=== PATIENT | female | born 1955 | race American Indian/Alaskan Native ===

== ENCOUNTER 2018-01-24 18:50 | Emergency (ER) | payer OTHER, MEDICARE ==
[2018-01-24 23:25] VITALS: BP 157/78
[2018-01-25] MEDS ORDERED: TYLENOL PO ONE (00:25)
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
== END 2018-01-25 00:46 | disposition home or self-care (01) ==
LOC: ED 18:50
DX: M54.5 Low back pain (principal); I10 Essential (primary) hypertension; E11.9 Type 2 diabetes mellitus without complications; E78.00 Pure hypercholesterolemia, unspecified; Z87.891 Personal history of nicotine dependence; V87.7XXA Person injured in collision between other specified motor vehicles (traffic), initial encounter; Y93.89 Activity, other specified; Y92.89 Other specified places as the place of occurrence of the external cause; Y99.8 Other external cause status
CPT/HCPCS: 99282

== ENCOUNTER 2018-12-17 15:14 | Emergency (ER) | payer MEDICARE ==
[2018-12-17 15:23] VITALS: BP 127/76
[2018-12-17] MEDS ORDERED: BOOSTRIX IM ONE (15:58)
[2018-12-17] MEDS ORDERED: XYLOCAINE 1%/ EPI 1:100,000 INFILTRATI ONE (15:58)
[2018-12-17] MEDS ORDERED: TRIPLE ANTIBIOTIC TP ONE (15:58)
[2018-12-17] MEDS ORDERED: NACL 0.9% IR ONE (15:58)
[2018-12-17] MEDS ORDERED: NORCO 5/325 PO ONE (15:58)
--- NOTE | 2018-12-17 16:07 | Emergency Department Report ---
ED Laceration HPI - HPI Chief Complaint: Wound/Laceration Stated Complaint: CUT THUMB Time Seen by Provider: 12/17/18 15:55 Location: Upper Extremity Severity: mild Tetanus Status: Not up to Date Laceration Symptoms: Yes Pain, No Foreign Body Sensation, No Numbness, No Weakness Other History: 63 YO AA FEMALE WHO COMES WITH LAC TO R THUMB; OBTAINED DURING WORKING WITH [employer]. ED Review of Systems ROS: Stated complaint: CUT THUMB Other details as noted in HPI Comment: All other systems reviewed and negative Constitutional: denies: see HPI Eyes: denies: eye pain Respiratory: denies: cough Cardiovascular: denies: palpitations Endocrine: denies: flushing Gastrointestinal: denies: nausea Genitourinary: denies: dysuria Musculoskeletal: denies: back pain Skin: as per HPI, lesions Neurological: denies: weakness Psychiatric: denies: anxiety Hematological/Lymphatic: denies: easy bleeding ED Past Medical Hx - Past Medical History Previous Medical History?: Yes Hx Hypertension: Yes Hx Diabetes: Yes Additional medical history: High cholesterol - Surgical History Past Surgical History?: Yes Hx Cholecystectomy: Yes Additional Surgical History: tonsilectomy. hysterectomy - Social History Smoking Status: Current Every Day Smoker Substance Use Type: Alcohol - Medications Home Medications: Home Medications Medication Instructions Recorded Confirmed Last Taken Type traMADol [Ultram 50 MG tab] 50 mg PO Q6HR PRN #15 tablet 01/25/18 Unknown Rx Laceration Physical Exam - Exam General: Vital signs noted. No distress. Alert and acting appropriately. Laceration Location: Upper Extremity Laceration Exam: Yes Normal Distal CMS, No Foreign Body, No Exposed Tendon, Vessel, or Nerve, No Tendon Injury ED Course Vital Signs 12/17/18 15:18 Temperature 97.6 F Pulse Rate 99 H Respiratory 16 Rate Blood Pressure 127/76 O2 Sat by Pulse 99 Oximetry - I & D THUMB Type of Procedure: Simple - Laceration /Wound Repair THUMB Wound Location: upper extremity Wound Length (cm): 2 Wound's Depth, Shape: superficial Wound Explored: clean Irrigated w/ Saline (ccs): 50 Betadine Prep?: No Anesthesia: 1% Lidocaine Volume Anesthetic (ccs): 1 Wound Debrided: minimal Wound Repaired With: sutures Suture Size/Type: 4:0 Number of Sutures: 3 Layer Closure?: No Sterile Dressing Applied?: Yes Progress: TOLERATED WELL ED Medical Decision Making - Medical Decision Making V SHAPED LAC ON THE PROX R THUMB BLEEDING CONTROLLED FULL ROM N/V INTACT RAPID CAP REFILL REPAIRED WITHOUT DIFFICULTY DC HOME - Differential Diagnosis SIMPLE LAC Critical care attestation.: If time is entered above; I have spent that time in minutes in the direct care of this critically ill patient, excluding procedure time. ED Disposition Clinical Impression: Laceration Disposition: DC-01 TO HOME OR SELFCARE Is pt being admited?: No Does the pt Need Aspirin: No Condition: Stable Instructions: Suture Care (ED) Additional Instructions: RETURN IN 5-7 DAYS FOR REMOVAL ICE TONIGHT LEAVE DRESSING ON UNTIL AM THEN REMOVE PAP WITH SOAP AND WATER AND THEN REAPPLY DRESSING NO OINTMENT KEEP THE BULKY DRESSING ON TO PROTECT THE WOUND MOTRIN OR TYLENOL FOR PAIN AVOID SOAKING IN WATER Referrals: PRIMARY CARE, [Primary Care Provider] - 3-5 Days Time of Disposition: 17:04
== END 2018-12-17 17:21 | disposition home or self-care (01) ==
LOC: ED 15:14
DX: S61.011A Laceration without foreign body of right thumb without damage to nail, initial encounter (principal); I10 Essential (primary) hypertension; E11.9 Type 2 diabetes mellitus without complications; F17.200 Nicotine dependence, unspecified, uncomplicated; Z90.710 Acquired absence of both cervix and uterus; W45.8XXA Other foreign body or object entering through skin, initial encounter; Y93.89 Activity, other specified; Y92.89 Other specified places as the place of occurrence of the external cause; Y99.8 Other external cause status
CPT/HCPCS: 90471; 90715; A6250

== ENCOUNTER 2018-12-24 11:40 | Emergency (ER) | payer MEDICARE ==
--- NOTE | 2018-12-24 12:03 | Emergency Department Report ---
Suture/Staple Removal - [facility] Chief Complaint: Laceration/Recheck/Suture Stated Complaint: REMOVE STITCHES Time Seen by Provider: 12/24/18 11:48 When Sutures or [place] Placed: 5-7 Days Ago Wound Location: r thumb ED Review of Systems ROS: Stated complaint: REMOVE STITCHES Other details as noted in HPI Comment: All other systems reviewed and negative Constitutional: denies: see HPI Eyes: denies: eye pain ENT: denies: ear pain Respiratory: denies: cough Cardiovascular: denies: palpitations Endocrine: denies: flushing Gastrointestinal: denies: nausea Genitourinary: denies: dysuria Skin: as per HPI, lesions Neurological: denies: headache Psychiatric: denies: depression Hematological/Lymphatic: denies: easy bleeding ED Past Medical Hx - Past Medical History Hx Hypertension: Yes Hx Diabetes: Yes Additional medical history: High cholesterol - Surgical History Hx Cholecystectomy: Yes Additional Surgical History: tonsilectomy. hysterectomy - Social History Smoking Status: Current Every Day Smoker Substance Use Type: None - Medications Home Medications: Home Medications Medication Instructions Recorded Confirmed Last Taken Type traMADol [Ultram 50 MG tab] 50 mg PO Q6HR PRN #15 tablet 01/25/18 Unknown Rx Suture Removal Exam - Exam General: Vital signs noted. No distress. Alert and acting appropriately. Wound: No Pathologic Erythema, No Tenderness, No Drainage, No Pus, No Wound Dehiscence Other Systems: All other systems reviewed and are unremarkable. healing well suture removed without difficulty full rom neurovasc intact ED Course Vital Signs 12/24/18 11:45 Temperature 98.4 F Pulse Rate 84 Respiratory 18 Rate Blood Pressure 130/78 O2 Sat by Pulse 97 Oximetry ED Recheck [facility] - Core Measures Measure Exclusions: not indicated - Differential Diagnosis Suture/Staple Removal - Medical Decision Making simple suture removal no infection healing well Critical care attestation.: If time is entered above; I have spent that time in minutes in the direct care of this critically ill patient, excluding procedure time. ED Disposition Clinical Impression: Visit for suture removal Disposition: - TO HOME OR SELFCARE Is pt being admited?: No Does the pt Need Aspirin: No Condition: Stable Instructions: Suture Removal (ED) Additional Instructions: KEEP CLEAN AND DRY NO OINTMENT Referrals: JOSEPHINE PAULINO MD [Staff Physician] - 3-5 Days Time of Disposition: 12:03
== END 2018-12-24 12:29 | disposition home or self-care (01) ==
LOC: ED 11:40

== ENCOUNTER 2021-07-27 22:08 | Inpatient (IN) | payer MEDICARE ==
[2021-07-27] MEDS ORDERED: IPRATROPIUM 0.02% NEBU 2.5 ML IH ONE ×2 (22:30→22:38)
[2021-07-27] MEDS ORDERED: ALBUTEROL 2.5 MG/3 ML NEBU IH ONE (22:30)
--- NOTE | 2021-07-27 22:35 | Emergency Department Report ---
ED General Adult HPI - General Stated complaint: RESP DISTRESS Time Seen by Provider: 07/27/21 22:23 - History of Present Illness Initial comments: Patient presents to emergency department chief complaint difficulty with breathing. Patient states that her difficulty with breathing started couple hours ago. Patient states she was recently diagnosed with COPD 2 weeks ago. In route via EMS patient was given 125 mg Solu-Medrol, 2 mg of magnesium IV, and 5 mg albuterol nebulizer. Patient denies chest pain complains of mild chest tightness secondary to difficulty with breathing. Patient states she is fully vaccinated for COVID-19 -: Sudden Severity scale (0 -10): 0 Consistency: constant Improves with: none Worsens with: movement Associated Symptoms: denies other symptoms Treatments Prior to Arrival: none - Related Data Previous Rx's Medication Instructions Recorded Last Taken Type traMADoL [Ultram 50 MG tab] 50 mg PO Q6HR PRN #15 tablet 01/25/18 Unknown Rx Allergies Allergy/AdvReac Type Severity Reaction Status Date / Time No Known Allergies Allergy Verified 12/24/18 11:45 ED Review of Systems ROS: Stated complaint: RESP DISTRESS Other details as noted in HPI Constitutional: denies: chills, fever Eyes: denies: eye pain, eye discharge, vision change ENT: denies: ear pain, throat pain Respiratory: shortness of breath. denies: cough, wheezing Cardiovascular: denies: chest pain, palpitations Endocrine: no symptoms reported Gastrointestinal: denies: abdominal pain, nausea, diarrhea Genitourinary: denies: urgency, dysuria, discharge Musculoskeletal: denies: back pain, joint swelling, arthralgia Skin: denies: rash, lesions Neurological: denies: headache, weakness, paresthesias Psychiatric: denies: anxiety, depression Hematological/Lymphatic: denies: easy bleeding, easy bruising ED Past Medical Hx - Past Medical History Hx Hypertension: Yes Hx Diabetes: Yes Additional medical history: High cholesterol - Surgical History Hx Cholecystectomy: Yes Additional Surgical History: tonsilectomy. hysterectomy - Social History Smoking Status: Current Every Day Smoker Substance Use Type: None - Medications Home Medications: Home Medications Medication Instructions Recorded Confirmed Last Taken Type traMADoL [Ultram 50 MG tab] 50 mg PO Q6HR PRN #15 tablet 01/25/18 Unknown Rx ED Physical Exam - General General appearance: alert, in no apparent distress - Head Head exam: Present: atraumatic, normocephalic - Eye Eye exam: Present: normal appearance - ENT ENT exam: Present: mucous membranes moist - Neck Neck exam: Present: normal inspection - Respiratory Respiratory exam: Present: respiratory distress (Mild respiratory distress), wheezes, accessory muscle use - Cardiovascular Cardiovascular Exam: Present: normal rhythm, tachycardia. Absent: systolic murmur, diastolic murmur, rubs, gallop - GI/Abdominal GI/Abdominal exam: Present: soft, normal bowel sounds. Absent: distended, tenderness - Extremities Exam Extremities exam: Present: normal inspection - Back Exam Back exam: Present: normal inspection - Neurological Exam Neurological exam: Present: alert, oriented X3, CN II-XII intact. Absent: motor sensory deficit - Psychiatric Psychiatric exam: Present: normal affect, normal mood - Skin Skin exam: Present: warm, dry, intact, normal color. Absent: rash ED Course Vital Signs 07/27/21 07/27/21 07/27/21 22:27 22:30 22:40 Pulse Rate 128 H 125 H Pulse Rate [ Bilateral Throughout] Respiratory 25 H 27 H Rate Respiratory Rate [Bilateral Throughout] Blood Pressure 148/69 148/69 O2 Sat by Pulse 100 100 99 Oximetry 07/27/21 23:03 Pulse Rate Pulse Rate [ 125 H Bilateral Throughout] Respiratory Rate Respiratory 27 H Rate [Bilateral Throughout] Blood Pressure O2 Sat by Pulse Oximetry ED Medical Decision Making - Lab Data Result diagrams: 07/27/21 22:57 07/27/21 22:57 Lab Results 07/27/21 07/27/21 07/27/21 Range/Units 22:57 22:57 22:57 WBC 20.3 H (4.5-11.0) K/mm3 RBC 4.88 (3.65-5.03) M/mm3 Hgb 13.9 (10.1-14.3) gm/dl Hct 42.6 (30.3-42.9) % MCV 87 (79-97) fl MCH 28 (28-32) pg MCHC 33 (30-34) % RDW 15.0 (13.2-15.2) % Plt Count 420 (140-440) K/mm3 Add Manual Diff Complete Total Counted 100 Seg Neuts % (Manual) 89.0 H (40.0-70.0) % Lymphocytes % (Manual) 9.0 L (13.4-35.0) % Monocytes % (Manual) 1.0 (0.0-7.3) % Metamyelocytes % 1.0 % Nucleated RBC % Not Reportable Seg Neutrophils # Man 18.1 H (1.8-7.7) K/mm3 Band Neutrophils # 0.0 K/mm3 Lymphocytes # (Manual) 1.8 (1.2-5.4) K/mm3 Abs React Lymphs (Man) 0.0 K/mm3 Monocytes # (Manual) 0.2 (0.0-0.8) K/mm3 Eosinophils # (Manual) 0.0 (0.0-0.4) K/mm3 Basophils # (Manual) 0.0 (0.0-0.1) K/mm3 Metamyelocytes # 0.2 K/mm3 Myelocytes # 0.0 K/mm3 Promyelocytes # 0.0 K/mm3 Blast Cells # 0.0 K/mm3 WBC Morphology Not Reportable Hypersegmented Neuts Not Reportable Hyposegmented Neuts Not Reportable Hypogranular Neuts Not Reportable Smudge Cells Not Reportable Toxic Granulation Not Reportable Toxic Vacuolation Not Reportable Dohle Bodies Not Reportable Pelger-Huet Anomaly Not Reportable Beryl Rods Not Reportable Platelet Estimate Consistent w auto Clumped Platelets Not Reportable Plt Clumps, EDTA Not Reportable Large Platelets Not Reportable Giant Platelets Not Reportable Platelet Satelliting Not Reportable Plt Morphology Comment Not Reportable RBC Morphology Normal Dimorphic RBCs Not Reportable Polychromasia Not Reportable Hypochromasia Not Reportable Poikilocytosis Not Reportable Anisocytosis Not Reportable Microcytosis Not Reportable Macrocytosis Not Reportable Spherocytes Not Reportable Pappenheimer Bodies Not Reportable Sickle Cells Not Reportable Target Cells Not Reportable Tear Drop Cells Not Reportable Ovalocytes Not Reportable Helmet Cells Not Reportable Paul-Vansant Bodies Not Reportable [place] Rings Not Reportable Fulton Cells Not Reportable Bite Cells Not Reportable Crenated Cell Not Reportable Elliptocytes Not Reportable Acanthocytes (Spur) Not Reportable Rouleaux Not Reportable Hemoglobin C Crystals Not Reportable Schistocytes Not Reportable Malaria parasites Not Reportable Gurmeet Bodies Not Reportable Hem Pathologist Commnt No Sodium 139 (137-145) mmol/L Potassium 3.5 L (3.6-5.0) mmol/L Chloride 96.9 L (98-107) mmol/L Carbon Dioxide 20 L (22-30) mmol/L Anion Gap 26 mmol/L BUN 19 H (7-17) mg/dL Creatinine 0.9 (0.6-1.2) mg/dL Estimated GFR > 60 ml/min BUN/Creatinine Ratio 21 % Glucose 204 H (65-100) mg/dL Lactic Acid 7.20 H* (0.7-2.0) mmol/L Calcium 9.7 (8.4-10.2) mg/dL Total Bilirubin 0.30 (0.1-1.2) mg/dL AST 98 H (5-40) units/L ALT 90 H (7-56) units/L Alkaline Phosphatase 98 (35-129) units/L Total Protein 8.0 (6.3-8.2) g/dL Albumin 4.2 (3.9-5) g/dL Albumin/Globulin Ratio 1.1 % - EKG Data -: EKG Interpreted by Me EKG shows normal: sinus rhythm Rate: tachycardia - Radiology Data Radiology results: report reviewed - Medical Decision Making Patient received 10 mg albuterol and 1 mg Atrovent in a continuous breathing treatment in the emergency department Patient O2 sats were lower than 90% and due to her being a moderate respiratory distress patient was placed on BiPAP Critical Care Time: Yes Critical care time in (mins) excluding proc time.: 35 Critical care attestation.: If time is entered above; I have spent that time in minutes in the direct care of this critically ill patient, excluding procedure time. ED Disposition Clinical Impression: COPD with exacerbation, Hypoxia Disposition: ADMITTED INPATIENT Is pt being admited?: Yes Does the pt Need Aspirin: No Condition: Stable Instructions: Chronic Obstructive Pulmonary Disease (ED) Referrals: PRIMARY CARE, [Primary Care Provider] - 3-5 Days
--- NOTE | 2021-07-27 23:15 | XRay Report ---
CHEST 1 VIEW 07/27/2021 9:49 PM INDICATION / CLINICAL INFORMATION: sob. COMPARISON: None available. FINDINGS: SUPPORT DEVICES: None. HEART / MEDIASTINUM: No significant abnormality. LUNGS / PLEURA: Increased interstitial markings are seen bilaterally. Opacity is seen adjacent to the right hilum. Nodular focus left base is likely an additional infiltrate.. No pneumothorax. ADDITIONAL FINDINGS: No significant additional findings. IMPRESSION: 1. Suspect right-sided pneumonia. 2. Nodular density left base. Recommend follow-up to clearing. 3. Increased interstitial markings may be chronic. Signer Name: Thomas Fenton MD Signed: 07/27/2021 11:11 PM Workstation Name: [id number]
[2021-07-27 23:16] LABS: Hematocrit 42.6 % (30.3-42.9); Hemoglobin 13.9 gm/dl (10.1-14.3); Mean Corpuscular HGB Conc 33 % (30-34); Mean Corpuscular Volume 87 fl (79-97); Platelet Count 420 K/mm3 (140-440); Red Blood Count 4.88 M/mm3 (3.65-5.03)
[2021-07-27 23:34] LABS: Alanine Aminotransferase 90 units/L (7-56); Albumin 4.2 g/dL (3.9-5); BUN/Creatinine Ratio 21; Blood Urea Nitrogen 19 mg/dL (7-17); Calcium 9.7 mg/dL (8.4-10.2); Hemolysis Index 2
[2021-07-27 23:46] LABS: Total Cells Counted 100
[2021-07-27 23:47] LABS: Platelet Estimate Consistent w Auto; RBC Morphology Normal
[2021-07-28] MEDS ORDERED: SODIUM CHLORIDE 0.9% 1000 ML 1,000 ML IV ONE (00:17)
[2021-07-28] MEDS ORDERED: CEFEPIME/NS 2 GM/100 ML 2 GM/100 ML BAG IV ONE ×2 (00:17→03:00)
[2021-07-28] MEDS ORDERED: MORPHINE 2 MG/1 ML INJ IV PRN (02:11)
[2021-07-28] MEDS ORDERED: MORPHINE 4 MG/1 ML INJ IV PRN (02:11)
[2021-07-28] MEDS ORDERED: ACETAMINOPHEN 325 MG TAB PO PRN (02:11)
[2021-07-28] MEDS ORDERED: DEXTROSE 50% IN WATER (25GM) 50 ML SYRINGE IV PRN (02:11)
[2021-07-28] MEDS ORDERED: ONDANSETRON 4 MG/2 ML INJ IV PRN (02:11)
--- NOTE | 2021-07-28 02:36 | History and Physical Report ---
History of Present Illness Date of examination: 07/28/21 Date of admission: 07/28/2021 Chief complaint: Shortness of breath History of present illness: 66-year-old -[place] female with known history of hypertension, diabetes mellitus, hyperlipidemia and COPD presents to the emergency room today complaining of difficulty breathing which has been ongoing for the past few hours. She was just recently diagnosed with COPD about 2 weeks ago. In route to the hospital patient was given Solu-Medrol, IV magnesium, albuterol nebulizing treatments by EMS.. Upon arrival in the emergency room patient had multiple rounds of nebulizing treatments and was subsequently placed on BiPAP with some improvement. She denies any fever or chills, no chest pain, no headache or dizziness, no diaphoresis, no nausea vomiting, no abdominal pain, no diarrhea. Patient denies any recent travel and no sick contacts. Denies any contact with anyone with COVID-19. Patient has been fully vaccinated against COVID-19. Work-up in the emergency room today, chest x-ray suspicious for right-sided pneumonia. There is nodular density in the left base, there is also increased interstitial markings which may be chronic. Past History Past Medical History: COPD, diabetes, hypertension, hyperlipidemia, other (History of right breast cancer) Past Surgical History: hysterectomy, mastectomy, tonsillectomy Social history: smoking (Current daily smoker) Family history: no significant family history Medications and Allergies Allergies Allergy/AdvReac Type Severity Reaction Status Date / Time No Known Allergies Allergy Verified 12/24/18 11:45 Home Medications Medication Instructions Recorded Confirmed Last Taken Type traMADoL [Ultram 50 MG tab] 50 mg PO Q6HR PRN #15 tablet 01/25/18 Unknown Rx Active Meds: Active Medications Acetaminophen (Acetaminophen 325 Mg Tab) 650 mg PO Q6H PRN PRN Reason: Pain MILD(1-3)/Fever >100.5/GARCIA Albuterol/Ipratropium (Ipratropium/Albuterol Sulfate 3 Ml Ampul.Neb) 1 ampul IH Q4HRT DEMIAN Dextrose (Dextrose 50% In Water (25gm) 50 Ml Syringe) 50 ml IV Q30MIN PRN; Protocol PRN Reason: Hypoglycemia Insulin Human Lispro (Insulin Lispro 100 Unit/Ml) 0 unit SUB-Q ACHS DEMIAN; Protocol Magnesium Hydroxide (Magnesium Hydroxide (Mom) Oral Liqd Udc) 30 ml PO Q4H PRN PRN Reason: Constipation Methylprednisolone Sodium Succinate (Methylprednisolone Sod Succinate 40 Mg/1 Ml Inj) 40 mg IV Q8HR DEMIAN Morphine Sulfate (Morphine 2 Mg/1 Ml Inj) 2 mg IV Q4H PRN PRN Reason: Pain, Moderate (4-6) Morphine Sulfate (Morphine 4 Mg/1 Ml Inj) 4 mg IV Q4H PRN PRN Reason: Pain , Severe (7-10) Ondansetron HCl (Ondansetron 4 Mg/2 Ml Inj) 4 mg IV Q8H PRN PRN Reason: Nausea And Vomiting Sodium Chloride (Sodium Chloride 0.9% 10 Ml Flush Syringe) 10 ml IV BID DEMIAN Sodium Chloride (Sodium Chloride 0.9% 10 Ml Flush Syringe) 10 ml IV PRN PRN PRN Reason: LINE FLUSH Review of Systems Constitutional: no fever, no chills Ears, nose, mouth and throat: no nasal congestion, no sore throat Cardiovascular: no chest pain, no palpitations Respiratory: cough, shortness of breath, wheezing Gastrointestinal: no abdominal pain, no nausea, no vomiting, no diarrhea Genitourinary Female: no flank pain, no dysuria, no hematuria Musculoskeletal: no neck pain, no low back pain Integumentary: no rash, no pruritis Neurological: no headaches, no confusion Psychiatric: no anxiety, no depression Endocrine: no polyphagia, no polydipsia, no polyuria Exam - Constitutional Vitals: Temp Pulse Resp BP Pulse Ox 125 H 27 H 148/69 99 07/27/21 23:03 07/27/21 23:03 07/27/21 22:40 07/27/21 22:40 General appearance: Present: mild distress, well-nourished - EENT Eyes: Present: PERRL, EOM intact. Absent: scleral icterus ENT: hearing intact, clear oral mucosa, dentition normal - Neck Neck: Present: supple, normal ROM - Respiratory Respiratory effort: labored Respiratory: bilateral: wheezing - Cardiovascular Rhythm: regular Heart Sounds: Present: S1 & S2. Absent: gallop, systolic murmur, diastolic murmur, rub, click - Extremities Extremities: no ischemia, pulses intact, pulses symmetrical, No edema, normal temperature, normal color, Full ROM Peripheral Pulses: within normal limits - Abdominal General gastrointestinal: Present: soft, non-tender, non-distended, normal bowel sounds. Absent: mass - Integumentary Integumentary: Present: clear, warm, dry. Absent: rash - Musculoskeletal Musculoskeletal: strength equal bilaterally - Psychiatric Psychiatric: appropriate mood/affect, intact judgment & insight, memory intact, cooperative - Neurologic Neurologic: CNII-XII intact, no focal deficits, moves all extremities Results - Labs CBC & Chem 7: 07/27/21 22:57 07/27/21 22:57 Labs: Abnormal lab results 07/27/21 07/27/21 07/27/21 Range/Units 22:57 22:57 22:57 WBC 20.3 H (4.5-11.0) K/mm3 Seg Neuts % (Manual) 89.0 H (40.0-70.0) % Lymphocytes % (Manual) 9.0 L (13.4-35.0) % Seg Neutrophils # Man 18.1 H (1.8-7.7) K/mm3 Potassium 3.5 L (3.6-5.0) mmol/L Chloride 96.9 L (98-107) mmol/L Carbon Dioxide 20 L (22-30) mmol/L BUN 19 H (7-17) mg/dL Glucose 204 H (65-100) mg/dL Lactic Acid 7.20 H* (0.7-2.0) mmol/L AST 98 H (5-40) units/L ALT 90 H (7-56) units/L Assessment and Plan - Patient Problems (1) COPD with exacerbation Current Visit: Yes Status: Acute Plan to address problem: Patient admitted and placed on nebulizing treatments and IV steroid. We will keep O2 saturation greater or equal to 94%. Consult placed to pulmonology for evaluation and recommendations. (2) Hypoxia Current Visit: Yes Status: Acute Plan to address problem: Possibly secondary to the COPD/pneumonia. Patient was initially placed on BiPAP but subsequently placed on oxygen by nasal cannula. We will keep O2 saturation greater or equal to 94%. (3) Pneumonia Current Visit: Yes Status: Acute Plan to address problem: Patient placed on empiric IV antibiotics. (4) Diabetes mellitus Current Visit: Yes Status: Acute Plan to address problem: We will monitor Accu-Cheks. Patient placed on sliding scale insulin. (5) Hypertension Current Visit: Yes Status: Acute Plan to address problem: We will resume routine home medications and monitor vital signs closely. (6) DVT prophylaxis Current Visit: Yes Status: Acute Plan to address problem: Patient placed on subcutaneous heparin. (7) Full code status Current Visit: Yes Status: Acute Plan to address problem: Patient is full code.
[2021-07-28] MEDS ORDERED: QUEtiapine 25 MG TAB PO ONE (02:43)
[2021-07-28] MEDS: methylPREDNISolone Sod Succinate 40 MG/1 ML INJ IV SCH ×3 (06:23→22:03)
[2021-07-28] MEDS: cefTRIAXone/NS 2 GM/100 ML 2 GM/100 ML BAG IV SCH (06:23)
[2021-07-28] MEDS: IPRATROPIUM/ALBUTEROL SULFATE 3 ML AMPUL.NEB IH SCH ×4 (07:40→17:46)
[2021-07-28] MEDS: INSULIN LISPRO 100 UNIT/ML SUB-Q SCH ×4 (07:52→22:04)
[2021-07-28] MEDS: AZITHROMYCIN/NS 500 MG/250 ML 500 MG/250 ML BAG IV SCH (07:58)
[2021-07-28] MEDS: HEPARIN 5,000 UNIT/1 ML VIAL SUB-Q SCH ×3 (08:56→22:03)
--- NOTE | 2021-07-28 09:36 | Event Note ---
Date: 07/28/21 This is a follow-up from an admission earlier this morning. We will continue to plan as outlined in H&P. Continue bronchodilators/nebulizers and IV steroids. Continue supplemental oxygen to maintain saturations greater than 92%. Continue IV antibiotics. Await pulmonary consultation. Total visit time equals 35 minutes with greater than 50% spent on coordination of care and counseling.
--- NOTE | 2021-07-28 12:46 | Consultation ---
History of Present Illness Consult date: 07/28/21 Requesting physician: SAVITA MIRZA Reason for consult: COPD History of present illness: PCCM Consult Note (Full dictation # [id number]) Please see dictated notes for full details Past History Past Medical History: COPD, diabetes, hypertension, hyperlipidemia, other (History of right breast cancer) Past Surgical History: hysterectomy, mastectomy, tonsillectomy Social history: smoking (Current daily smoker) Family history: no significant family history Medications and Allergies Allergies Allergy/AdvReac Type Severity Reaction Status Date / Time No Known Allergies Allergy Verified 12/24/18 11:45 Home Medications Medication Instructions Recorded Confirmed Last Taken Type traMADoL [Ultram 50 MG tab] 50 mg PO Q6HR PRN #15 tablet 01/25/18 Unknown Rx Active Meds: Active Medications Acetaminophen (Acetaminophen 325 Mg Tab) 650 mg PO Q6H PRN PRN Reason: Pain MILD(1-3)/Fever >100.5/GARCIA Albuterol/Ipratropium (Ipratropium/Albuterol Sulfate 3 Ml Ampul.Neb) 1 ampul IH Q4HRT DEMIAN Last Admin: 07/28/21 09:49 Dose: 1 ampul Documented by: Dextrose (Dextrose 50% In Water (25gm) 50 Ml Syringe) 50 ml IV Q30MIN PRN; Protocol PRN Reason: Hypoglycemia Heparin Sodium (Porcine) (Heparin 5,000 Unit/1 Ml Vial) 5,000 unit SUB-Q Q8HR DEMIAN Last Admin: 07/28/21 08:56 Dose: 5,000 unit Documented by: Ceftriaxone Sodium (Rocephin/Ns 2 Gm/100 Ml) 2 gm in 100 mls @ 200 mls/hr IV Q24H DEMIAN; Protocol Last Admin: 07/28/21 06:23 Dose: 200 mls/hr Documented by: Azithromycin (Zithromax/Ns) 500 mg in 250 mls @ 250 mls/hr IV Q24H DEMIAN Last Admin: 07/28/21 07:58 Dose: 250 mls/hr Documented by: Insulin Human Lispro (Insulin Lispro 100 Unit/Ml) 0 unit SUB-Q ACHS DEMIAN; Protocol Last Admin: 07/28/21 07:52 Dose: 2 unit Documented by: Magnesium Hydroxide (Magnesium Hydroxide (Mom) Oral Liqd Udc) 30 ml PO Q4H PRN PRN Reason: Constipation Methylprednisolone Sodium Succinate (Methylprednisolone Sod Succinate 40 Mg/1 Ml Inj) 40 mg IV Q8HR DEMIAN Last Admin: 07/28/21 06:23 Dose: 40 mg Documented by: Morphine Sulfate (Morphine 2 Mg/1 Ml Inj) 2 mg IV Q4H PRN PRN Reason: Pain, Moderate (4-6) Morphine Sulfate (Morphine 4 Mg/1 Ml Inj) 4 mg IV Q4H PRN PRN Reason: Pain , Severe (7-10) Ondansetron HCl (Ondansetron 4 Mg/2 Ml Inj) 4 mg IV Q8H PRN PRN Reason: Nausea And Vomiting Sodium Chloride (Sodium Chloride 0.9% 10 Ml Flush Syringe) 10 ml IV BID DEMIAN Sodium Chloride (Sodium Chloride 0.9% 10 Ml Flush Syringe) 10 ml IV PRN PRN PRN Reason: LINE FLUSH Physical Examination Vital signs: Vital Signs Pulse Ox 100 07/27/21 22:27 Results - Laboratory Findings CBC and BMP: 07/27/21 22:57 07/27/21 22:57 Abnormal lab findings: Abnormal Labs 07/27/21 07/27/21 07/27/21 22:57 22:57 22:57 WBC 20.3 H Seg Neuts % (Manual) 89.0 H Lymphocytes % (Manual) 9.0 L Seg Neutrophils # Man 18.1 H Potassium 3.5 L Chloride 96.9 L Carbon Dioxide 20 L BUN 19 H Glucose 204 H POC Glucose Lactic Acid 7.20 H* AST 98 H ALT 90 H 07/28/21 07/28/21 07/28/21 01:31 07:49 10:00 WBC Seg Neuts % (Manual) Lymphocytes % (Manual) Seg Neutrophils # Man Potassium Chloride Carbon Dioxide BUN Glucose POC Glucose 194 H Lactic Acid 6.90 H* 6.70 H* AST ALT 07/28/21 12:41 WBC Seg Neuts % (Manual) Lymphocytes % (Manual) Seg Neutrophils # Man Potassium Chloride Carbon Dioxide BUN Glucose POC Glucose 159 H Lactic Acid AST ALT
[2021-07-28] MEDS ORDERED: SODIUM CHLORIDE 0.9% 1000 ML 1,000 ML IV SCH (13:30)
--- NOTE | 2021-07-28 14:56 | Cat Scan Report ---
CTA CHEST WITH IV CONTRAST INDICATION: Hypoxemia; abnormal CXRE; H/O Breast Cancer OMNI 350 100 ML. TECHNIQUE: Axial CT images were obtained through the chest after injection of 100 cc IV contrast. 3 plane MIP re constructions were produced. All CT scans at this location are performed using CT dose reduction for ALARA by means of automated exposure control. COMPARISON: Chest x-ray 07/27/2021 FINDINGS: PULMONARY ARTERIES: No pulmonary emboli. THORACIC AORTA: No acute abnormality. HEART: Normal. CORONARY ARTERIES: No significant calcification. PLEURA: No pleural effusion. No pneumothorax. LYMPH NODES: Confluent soft tissue mass encasing the right bronchus and pulmonary artery and vein dora suring 5.7 cm in AP diameter. Subcarinal lateral aortic and left hilar soft tissue adenopathy also no salvador LUNGS: Large right upper lobe pulmonary masslike parenchymal density measuring 3.9 x 9.4 cm image 182 with mass effect on major fissure worrisome for lung cancer. 2 cm lingular pulmonary nodule image 202. Several right upper lobe pulmonary nodules, one of which measures 7 mm image 152 are worrisome for pu lmonary metastases ADDITIONAL FINDINGS: None. UPPER ABDOMEN: Enlarged 1.2 cm left periaortic node adjacent to the left renal artery image 379. SKELETAL STRUCTURES: Moderate thoracic spondylosis IMPRESSION: 1. No CT evidence for pulmonary embolism. 2. Large right upper lobe parenchymal mass with confluent right hilar mass encasing pulmonary vessels and right upper, middle and lower lobe bronchimediastinal 3. Mediastinal, left retroperitoneal adenopathy, lingular and right upper lobe pulmonary nodules like ly secondary to metastatic disease Signer Name: Rikki Perales MD Signed: 07/28/2021 2:52 PM Workstation Name: [email or web address]
[2021-07-28] MEDS ORDERED: FAMOTIDINE 20 MG TAB PO SCH (22:00)
--- NOTE | 2021-07-29 00:30 | Consultation ---
DATE OF CONSULTATION: 07/28/2021 PULMONARY CONSULT NOTE CONSULTING PHYSICIAN: Dr. Chintan Milian. REASON FOR CONSULTATION: Acute exacerbation of chronic obstructive pulmonary disease. CHIEF COMPLAINT AND HISTORY OF PRESENT ILLNESS: The patient is a 66-year-old female, obese, past medical history significant amongst other things for a diagnosis of hypertension and diabetes, but states that she was recently diagnosed with COPD at an urgent care center. About 2 weeks ago, she had developed increasing shortness of breath and dyspnea on exertion. It was going on for a few days. In the hospital, she was given some steroids and actually said she got a little bit better; however, she stated that the steroids did not let her get any sleep for a couple of days. By yesterday when she got home from walk, she was absolutely exhausted and came into the emergency room. In the emergency room, she was wheezing and required multiple nebulizer treatments. Of note, she denied any chest pain. She denied any cough. She denied any hemoptysis. She denied any new-onset leg pain or swelling, either laterally or bilaterally or any long distance travel or any suggestion of venous thromboembolic phenomenon. She tells me she is a survivor of breast cancer. She has a 20+ pack year tobacco smoking history, smoking about half a pack a day up until about a month ago. When I stopped by to see her, she was resting in bed, talking to me with slightly interrupted sentences without overt accessory muscle use, but certainly short of breath. She denies any orthopnea in particular. She denies any new lumps, bumps, swellings on her body or any new rashes. Vaccinated for COVID-19. She got the Moderna vaccine and completed all the doses. Really, This is as much of the history of presentation as I have. PAST MEDICAL HISTORY: Diabetes, hypertension, hyperlipidemia, obesity, history of right breast cancer. PAST SURGICAL HISTORY: She has had a hysterectomy. She has had a mastectomy and tonsillectomy. MEDICATIONS: Medications she was on at the time I stopped by to see her were reviewed. Pertinent medications include the following: Tylenol 650 mg p.o. q.6 hours p.r.n. mild pain or fevers, DuoNeb nebulizer treatment scheduled q.4 hours, azithromycin 500 mg IV daily, Rocephin 2 grams IV daily, heparin 5000 units subQ q.8 hours, insulin via sliding scale, Solu-Medrol 40 mg IV q.8 hours., Zofran 4 mg IV q.8 hours p.r.n. nausea and vomiting, morphine sulfate 4 mg IV q.4 hours p.r.n. severe pain. ALLERGIES: No known drug allergies. DIET: Obese lady, denies acute weight loss or gain in the preceding few weeks to months. FAMILY AND SOCIAL HISTORY: Lives in the community. Denies current alcohol or illicit drug use or abuse history. She has a 20+ pack year tobacco smoking history. FAMILY HISTORY: Otherwise, noncontributory. REVIEW OF SYSTEMS: No loss of consciousness. No new onset seizures. No new onset focal weakness. Denies gross hematochezia or melena. Denies gross hematuria or dysuria. No hematemesis, no hemoptysis. She denies heat or cold intolerance. Denies polydipsia. Denies polyuria. Complete 13-system review of system was obtained. Pertinent positives and/or negatives as in body of history above, otherwise they are noncontributory. PHYSICAL EXAMINATION: VITAL SIGNS: On presentation, she was afebrile, pulse was 128, respiratory rate 25, blood pressure 148/69, O2 sats 100%, inspired oxygen concentration at that time was not recorded. When I stopped by to see her, O2 sats were 95% that was on I believe 4 liters nasal cannula. GENERAL: She is an elderly obese female. Normocephalic, atraumatic, talking to me with partially interrupted sentences with mildly increased respiratory effort at rest. HEENT: Anicteric. No conjunctival erythema. Oropharynx was moist. Mallampati #3 oropharynx. No gross jugular venous distention, no thyromegaly. She does have a large neck circumference. Grossly, there were no palpable lymph nodes in the supraclavicular or submandibular lymph node chains. LUNGS: Auscultation of both lung meyer revealed bilateral expiratory wheezing and prolonged expiratory phase. HEART: Sounds 1 and 2 are heard. There was regular rate and rhythm at the time of my evaluation without overt rubs or murmurs. ABDOMEN: Soft, full, protuberant. Bowel sounds are positive, nontender, no palpable hepatosplenomegaly. EXTREMITIES: Without overt digital clubbing or cyanosis, no pedal edema. Pedal pulses are 2+ bilaterally. NEUROLOGIC: Pupils are equal, round, about 4 mm, reactive to light. Extraocular muscle movements are intact. She moves all 4 extremities spontaneously. SKIN: Normal turgor in the areas examined without overt cellulitis or rash. Please see the wound care nurses' notes for full description of her skin. PSYCHIATRIC: Mood was normal. Affect was somewhat anxious. She had intact judgment and insight. LABORATORY DATA: From my review are as follows: White cell count 20,300, hemoglobin 13.9, hematocrit 42.6, platelet count 420. No band forms on the manual differential. Serum sodium was 139, potassium 3.5, chloride 97, bicarbonate 20, BUN 19, creatinine 0.9, glucose was 204. Lactic acid level was 7.2 at presentation. It is now 6.7. AST was up at 98, ALT was up at 90. Two sets of blood cultures are no growth to date. Radiographic studies have been reviewed. Chest x-ray shows hyperinflation with flattening of both hemidiaphragms relatively. Taking the hyperinflation into consideration, she has borderline cardiomegaly. She has perihilar type infiltrate, right greater than left. Reported nodular density in the left base. The increased interstitial markings do appear chronic. ASSESSMENT: 1. Acute hypoxemic respiratory failure secondary to #2. 2. Acute chronic obstructive pulmonary disease exacerbation. 3. Possible hypercapnia. 4. History of right breast cancer. 5. Leukocytosis. 6. Diabetes. 7. Hypertension. 8. Hyperlipidemia. 9. Tobacco use disorder. PLAN: I have strongly counseled her to make sure that she does not go back to cigarette smoking. She has stopped for about a month and I have told her and encouraged her to continue. In particular, taking her breast cancer diagnosis into consideration, this is a real reason why she should also stop smoking. She states she has made that decision. Breast cancer did not make her feel as bad as the COPD does. In the meantime, I do agree with current bronchodilators. We will continue short-acting bronchodilators. However, I will make that schedule b.i.d. and then p.r.n. or t.i.d. and then p.r.n. thereafter. I will add long-acting bronchodilators as well as inhaled corticosteroids. I do agree with community-acquired pneumonia coverage and we will continue that for 5 days empirically. I will get a CT angiogram of her chest, mainly in light of the breast cancer history, the abnormal chest x-ray with nodularities in the left lower lobe and I will also give her normal saline and some sort of volume resuscitation in light of the lactic acidosis. I will run it at 75 mL per hour for 1 liter and reevaluate. I will be getting also in this lady an arterial blood gas to better understand her CO2 levels and the chronicity of her disease. She is appropriately on DVT prophylaxis. I will be putting her on GI prophylaxis with Pepcid. Flu and pneumonia vaccination will be addressed per protocol. Thank you very much for the consult. We will follow along and make further recommendations as picture progresses/becomes clearer. TID: [id number] RECEIPT: [id number] DC/HIGINIO
[2021-07-29] MEDS: BUDESONIDE 0.5 MG/2 ML NEBU IH SCH ×3 (00:59→20:03)
[2021-07-29] MEDS: ARFORMOTEROL 15 MCG/2 ML NEBU IH SCH ×3 (00:59→20:02)
[2021-07-29] MEDS: IPRATROPIUM/ALBUTEROL SULFATE 3 ML AMPUL.NEB IH SCH ×4 (00:59→20:02)
[2021-07-29 05:55] LABS: Hematocrit 37.7 % (30.3-42.9); Hemoglobin 12.6 gm/dl (10.1-14.3); Mean Corpuscular HGB Conc 34 % (30-34); Mean Corpuscular Volume 88 fl (79-97); Platelet Count 318 K/mm3 (140-440); Red Cell Distribution Width 15.1 % (13.2-15.2)
[2021-07-29 06:12] LABS: BUN/Creatinine Ratio 29; Blood Urea Nitrogen 23 mg/dL (7-17); Calcium 9.3 mg/dL (8.4-10.2); Hemolysis Index 4
[2021-07-29 06:15] LABS: INR 1.03 (0.87-1.13)
[2021-07-29] MEDS: cefTRIAXone/NS 2 GM/100 ML 2 GM/100 ML BAG IV SCH (06:42)
[2021-07-29] MEDS: HEPARIN 5,000 UNIT/1 ML VIAL SUB-Q SCH (06:42)
[2021-07-29] MEDS: methylPREDNISolone Sod Succinate 40 MG/1 ML INJ IV SCH ×3 (06:43→22:24)
[2021-07-29] MEDS ORDERED: LORazepam 2 MG/ML VIAL ONE (06:58)
[2021-07-29] MEDS ORDERED: FUROSEMIDE 40 MG/4 ML INJ ONE (06:59)
[2021-07-29] MEDS ORDERED: FUROSEMIDE 40 MG/4 ML INJ IV ONE (07:13)
[2021-07-29] MEDS ORDERED: LORazepam 2 MG/ML VIAL IV ONE (07:13)
[2021-07-29] MEDS ORDERED: METOPROLOL TARTRATE 5 MG/5 ML INJ IV NR (07:15)
[2021-07-29] MEDS: AZITHROMYCIN/NS 500 MG/250 ML 500 MG/250 ML BAG IV SCH ×2 (07:17→08:10)
[2021-07-29 07:29] LABS: Hematocrit 43.3 % (30.3-42.9); Hemoglobin 14.1 gm/dl (10.1-14.3); Mean Corpuscular HGB Conc 33 % (30-34); Mean Corpuscular Volume 90 fl (79-97); Platelet Count 389 K/mm3 (140-440)
--- NOTE | 2021-07-29 07:38 | Event Note ---
Date: 07/29/21 0650 code met called. Patient seen at bedside. Patient has shortness of breath and anxiety. On assessment, patient has wheezing bilaterally with coarse breath sounds and rales. Oxygen saturation 70s to 80s. Breathing treatment with bronchodilator given. Patient placed on nonrebreather mask. Lasix 40 mg given IV x1. Ativan 1 mg given x1. Blood pressure 154/113. Heart rate 140s to 150s. Patient given Lopressor 5 mg x 1. Chest x-ray ordered. Blood work including CBC CMP, D-dimer, magnesium, and potassium ordered. Patient oxygen saturation up to 95 to 100% after breathing treatment and placing patient on nonrebreather mask.
[2021-07-29 07:45] LABS: Blood Urea Nitrogen 23 mg/dL (7-17); Calcium 9.3 mg/dL (8.4-10.2); Hemolysis Index 12
--- NOTE | 2021-07-29 07:45 | XRay Report ---
CHEST 1 VIEW INDICATION: respiratory distress. COMPARISON: 07/27/2021 FINDINGS: Support devices: None. Heart: Within normal limits. Lungs/Pleura: Right perihilar prominence is again noted. Nodular opacity in the lingular region is al so again noted. Otherwise the lungs remain generally clear with no evidence for acute infiltrate, ple ural fluid or pneumothorax. Additional findings: None. IMPRESSION: No significant interval change. Signer Name: Stanislaw Go Jr, MD Signed: 07/29/2021 7:41 AM Workstation Name: [id number]
[2021-07-29 07:52] LABS: BUN/Creatinine Ratio 26
--- NOTE | 2021-07-29 08:09 | Progress Note ---
Assessment and Plan Acute hypoxemic respiratory failure secondary Lung Mass (? Lung vs Breast CA) Acute COPD exacerbation Possible hypercapnia History of right breast cancer Leukocytosis DM II Hypertension Hyperlipidemia Tobacco use disorder (Discussed care plan at length with her & daughter in person and with her son & daughter over the phone) - will do inspection bronchoscopy once stable and hopefully get some washes - send coronavirus test to evaluate for COVID - get 2D ECHO - get dopplers - PCV acutely re: high PIP's - Daily SAT and SBT assessment as tolerated - continue to wean supplemental oxygen for target O2 sat's > 90% acutely - VAP bundle addressed - continue lung protective strategies - continue bronchodilators (GLADIS & LABA) with pulmonary hygiene per RT - wean per pulmonary driven protocols otherwise - continue accuchecks with glycemic control per SSI (While critically ill target blood glucose of 140-180 mg/dL; avoid hypoglycemia) - sedation prn for target RASS 0 to -1 - avoid nephrotoxins, renally dose all medications - continue to avoid benzodiazepine's, reduce the possibility of delirium - complete AB's per ID rec's - prn analgesia per CPOT score - Maintenance of sleep-wake cycle, avoid delirium - enteral nutritional support at goal rate as tolerated - G.I. & VTE prophylaxis - PT/OT/ROM exercises - continue mobility protocols for pressure ulcer prophylaxis - Monitor hemodynamics closely - continue other care per attending / other consultants - discharge planning ongoing concurrently COVID SPECIFIC INTERVENTIONS - test result pending .... Re-evaluate in am & prn CONDITION: CRITICAL PROGNOSIS: GUARDED CODE STATUS: FULL CODE The high probability of a clinically significant, sudden or life-threatening deterioration of the [respiratory, cardiovascular, oncological & neurologic] system(s) required my full and direct attention, intervention and personal management. The aggregate critical care time was [40] minutes without overlap. Time includes spent on; [x] Data Review and interpretation [x] Patient assessment and monitoring of vital signs [x] Documentation [x] Medication orders and management Subjective Date of service: 07/29/21 Principal diagnosis: Ac hypoxemic resp failure ; AE-COPD; H/O CA Breast; DM II; HTN Interval history: Patient is seen today for: Acute hypoxemic respiratory failure; AE-COPD; Possible hypercapnia; H/O CA Breast; DM II; HTN Seen and examined at bedside; 24hour events reviewed; nursing and respiratory care staff consulted; no adverse overnight events reported to me; resting in bed; s/p CODE BLUE today with witnessed respiratory failure and now intubated; now mneeding 100% FiO2; no emesis or overt aspiration reported; afebrile Objective Vital Signs - 12hr 07/28/21 07/28/21 07/28/21 21:00 22:00 23:00 Temperature Pulse Rate 118 H 102 H 102 H Pulse Rate [ Bilateral Throughout] Respiratory 15 21 17 Rate Respiratory Rate [Bilateral Throughout] Blood Pressure 123/75 116/68 110/62 Blood Pressure [Left] O2 Sat by Pulse 99 100 98 Oximetry 07/29/21 07/29/21 07/29/21 00:00 00:32 02:09 Temperature 98.7 F Pulse Rate 96 H 96 H Pulse Rate [ Bilateral Throughout] Respiratory 20 Rate Respiratory Rate [Bilateral Throughout] Blood Pressure 123/62 Blood Pressure [Left] O2 Sat by Pulse 100 98 Oximetry 07/29/21 07/29/21 06:30 07:04 Temperature 96 F L Pulse Rate 96 H Pulse Rate [ 108 H Bilateral Throughout] Respiratory 17 Rate Respiratory 20 Rate [Bilateral Throughout] Blood Pressure Blood Pressure 116/75 [Left] O2 Sat by Pulse 100 Oximetry Constitutional: appears uncomfortable, other (eldely obese female with mildy increased respiratory effort at rest on MVS) Eyes: non-icteric ENT: oropharynx moist, other (ETT 24 cm [place]) Neck: supple, no lymphadenopathy, no JVD Effort: mildly labored Ascultation: Bilateral: diminished breath sounds, rales, other (prolonged expiratory phase) Percussion: Bilateral: not dull Cardiovascular: regular rate and rhythm Gastrointestinal: normoactive bowel sounds, soft, non-tender, non-distended Integumentary: normal Extremities: no cyanosis, no edema, pulses normal, no ischemia or petechiae Neurologic: normal mental status, non-focal exam, pupils equal and round, CN II- XII normal Psychiatric: mood appropriate, affect normal CBC and BMP: 07/29/21 07:17 07/29/21 07:17 ABG, PT/INR, D-dimer: PT/INR, D-dimer PT 14.0 Sec. (12.2-14.9) 07/29/21 04:44 INR 1.03 (0.87-1.13) 07/29/21 04:44 D-Dimer 852.47 ng/mlDDU (0-234) H 07/29/21 07:17 Abnormal lab findings: Abnormal Labs 07/27/21 07/27/21 07/27/21 22:57 22:57 22:57 WBC 20.3 H Seg Neuts % (Manual) 89.0 H Lymphocytes % (Manual) 9.0 L Seg Neutrophils # Man 18.1 H D-Dimer Potassium 3.5 L Chloride 96.9 L Carbon Dioxide 20 L BUN 19 H Glucose 204 H POC Glucose Lactic Acid 7.20 H* AST 98 H ALT 90 H 07/28/21 07/28/21 07/28/21 01:31 07:49 10:00 WBC Seg Neuts % (Manual) Lymphocytes % (Manual) Seg Neutrophils # Man D-Dimer Potassium Chloride Carbon Dioxide BUN Glucose POC Glucose 194 H Lactic Acid 6.90 H* 6.70 H* AST ALT 07/28/21 07/28/21 07/28/21 12:41 13:21 16:21 WBC Seg Neuts % (Manual) Lymphocytes % (Manual) Seg Neutrophils # Man D-Dimer Potassium Chloride Carbon Dioxide BUN Glucose POC Glucose 159 H 155 H Lactic Acid 6.10 H* AST ALT 07/28/21 07/29/21 07/29/21 22:03 04:44 04:44 WBC 17.0 H Seg Neuts % (Manual) Lymphocytes % (Manual) Seg Neutrophils # Man D-Dimer Potassium Chloride Carbon Dioxide BUN 23 H Glucose 196 H POC Glucose 187 H Lactic Acid AST ALT 07/29/21 07/29/21 07/29/21 06:56 07:17 07:17 WBC Seg Neuts % (Manual) Lymphocytes % (Manual) Seg Neutrophils # Man D-Dimer 852.47 H Potassium Chloride Carbon Dioxide 20 L D BUN 23 H Glucose 308 H POC Glucose 165 H Lactic Acid AST ALT CT scan - chest: image reviewed (CT Chest shows subcarinal and hilar adenopathy as well as RUL mass) Allied health notes reviewed: nursing
[2021-07-29] MEDS: INSULIN LISPRO 100 UNIT/ML SUB-Q SCH ×3 (08:10→20:14)
[2021-07-29] MEDS ORDERED: ROCURONIUM 50 MG/5 ML INJ IV ONE (09:45)
[2021-07-29] MEDS ORDERED: MIDAZOLAM 5 MG/5 ML INJ MDV IV ONE (09:47)
[2021-07-29] MEDS ORDERED: LORazepam 2 MG/ML VIAL IV PRN (10:00)
[2021-07-29] MEDS ORDERED: MIDAZOLAM 5 MG/5 ML INJ MDV IV NR (10:00)
[2021-07-29] MEDS ORDERED: fentaNYL DRIP Premix 2,000 MCG/100 ML BAG IV ONE (10:15)
--- NOTE | 2021-07-29 10:37 | XRay Report ---
CHEST 1 VIEW 10:11 AM INDICATION: ETT placement, OGT placement. COMPARISON: Earlier today. FINDINGS: Support devices: Endotracheal tube has been placed in satisfactory position with tip at the level of the clavicles. Esophagogastric tube tip and side-port are in the stomach in satisfactory position. Heart: Stable. Lungs/Pleura: Bilateral pulmonary opacities, greater on the right are unchanged. No pneumothorax is s een. IMPRESSION: 1. No complication after esophagogastric and endotracheal tube placement. Signer Name: Elvis Farrell MD Signed: 07/29/2021 10:33 AM Workstation Name: [email or web address]
[2021-07-29] MEDS ORDERED: MINERAL OIL/PETROLATUM, WHITE OPHTH OINT 3.5 GM OU PRN (10:42)
[2021-07-29] MEDS ORDERED: LIP THERAPY VASELINE TP PRN (10:42)
--- NOTE | 2021-07-29 10:50 | Event Note ---
Date: 07/29/21 I was called to the bedside secondary to a CODE BLUE being called. The patient was found to be in PEA. The hospitalist, Dr. Villatoro, was at bedside supervising ACLS protocol. With respiratory therapy at bedside I went to intubate the patient. I used a MAC 4 blade and direct laryngoscopy. The patient's upper dentures were removed. She did not require any sedation or paralytics. I was able to visualize the vocal cords. A 7.5 endotracheal tube was placed through the vocal cords to about 24 cm at the lips. The bulb was inflated with about 7 cc of air. There was condensation within the tube. There was good color change capnography. There was bilateral breath sounds and chest rise with bag valve ventilation. The chest x-ray later confirmed appropriate placement of the endotracheal tube. At this point, I left the room to return to the emergency department and left the hospitalist service in charge of ACLS protocol and any ROSC orders/treatment.
[2021-07-29] MEDS: fentaNYL DRIP Premix 2,000 MCG/100 ML BAG IV SCH ×2 (10:54→20:00)
--- NOTE | 2021-07-29 11:23 | Progress Note ---
Assessment and Plan Assessment and plan: Acute hypoxic respiratory failure Acute COPD exacerbation Right upper lobe postobstructive pneumonia Sepsis. Patient meets criteria given the leukocytosis, tachycardia and diagnosis of pneumonia Large right upper lobe parenchymal mass/right hilar mass--probable metastatic disease Left lower extremity DVT. 07/29/2021. Patient seen this morning with Shabbir-Chavira respiration/agonal breathing. CODE BLUE was called and patient was intubated and placed on mechanical ventilation. Patient transferred to ICU. Critical care/pulmonary consulted. Patient currently with AC mode rate of 30, FiO2 100%, PEEP of 12. Continue IV antibiotics. Consult ID and oncology for further evaluation. Patient will likely need bronchoscopy for further evaluation of the lung mass. Doppler ultrasound revealedLLE DVT. Start anticoagulation. The high probability of a clinically significant, sudden or life threatening deterioration of the [respiratory] system(s) required my full and direct attention, intervention and personal management. The aggregate critical care time was [38] minutes. This time is in addition to time spent performing reported procedures but includes the following: [x] Data Review and interpretation [x] Patient assessment and monitoring of vital signs [x] Documentation [x] Medication orders and management History Interval history: Patient seen this morning with Shabbir-Chavira respiration/agonal breathing. CODE BLUE was called and patient was intubated and placed on mechanical ventilation. Patient transferred to ICU. Critical care/pulmonary consulted. Hospitalist Physical - Constitutional Vitals: Temp Pulse Resp BP Pulse Ox 96 F L 135 H 20 134/80 99 07/29/21 06:30 07/29/21 08:00 07/29/21 07:04 07/29/21 09:58 07/29/21 09:58 General appearance: Present: severe distress, well-nourished - EENT Eyes: Present: PERRL, EOM intact ENT: hearing intact, clear oral mucosa, dentition normal - Neck Neck: Present: supple, normal ROM - Respiratory Respiratory effort: normal Respiratory: bilateral: diminished, rhonchi - Cardiovascular Rhythm: regular Heart Sounds: Present: S1 & S2. Absent: gallop, rub - Extremities Extremities: no ischemia, No edema, Full ROM - Abdominal General gastrointestinal: soft, non-tender, non-distended, normal bowel sounds - Integumentary Integumentary: Present: clear, warm, dry - Neurologic Neurologic: CNII-XII intact, moves all extremities Results - Labs CBC & Chem 7: 07/29/21 07:17 07/29/21 07:17 Labs: Laboratory Last Values WBC 26.1 K/mm3 (4.5-11.0) H 07/29/21 07:17 RBC 4.80 M/mm3 (3.65-5.03) 07/29/21 07:17 Hgb 14.1 gm/dl (10.1-14.3) 07/29/21 07:17 Hct 43.3 % (30.3-42.9) H 07/29/21 07:17 MCV 90 fl (79-97) 07/29/21 07:17 MCH 29 pg (28-32) 07/29/21 07:17 MCHC 33 % (30-34) 07/29/21 07:17 RDW 16.0 % (13.2-15.2) H 07/29/21 07:17 Plt Count 389 K/mm3 (140-440) 07/29/21 07:17 Add Manual Diff Complete 07/27/21 22:57 Total Counted 100 07/27/21 22:57 Seg Neutrophils % Specimen Accessioner 07/29/21 04:44 Seg Neuts % (Manual) 89.0 % (40.0-70.0) H 07/27/21 22:57 Lymphocytes % (Manual) 9.0 % (13.4-35.0) L 07/27/21 22:57 Monocytes % (Manual) 1.0 % (0.0-7.3) 07/27/21 22:57 Metamyelocytes % 1.0 % 07/27/21 22:57 Nucleated RBC % Not Reportable 07/27/21 22:57 Seg Neutrophils # Man 18.1 K/mm3 (1.8-7.7) H 07/27/21 22:57 Band Neutrophils # 0.0 K/mm3 07/27/21 22:57 Lymphocytes # (Manual) 1.8 K/mm3 (1.2-5.4) 07/27/21 22:57 Abs React Lymphs (Man) 0.0 K/mm3 07/27/21 22:57 Monocytes # (Manual) 0.2 K/mm3 (0.0-0.8) 07/27/21 22:57 Eosinophils # (Manual) 0.0 K/mm3 (0.0-0.4) 07/27/21 22:57 Basophils # (Manual) 0.0 K/mm3 (0.0-0.1) 07/27/21 22:57 Metamyelocytes # 0.2 K/mm3 07/27/21 22:57 Myelocytes # 0.0 K/mm3 07/27/21 22:57 Promyelocytes # 0.0 K/mm3 07/27/21 22:57 Blast Cells # 0.0 K/mm3 07/27/21 22:57 WBC Morphology Not Reportable 07/27/21 22:57 Hypersegmented Neuts Not Reportable 07/27/21 22:57 Hyposegmented Neuts Not Reportable 07/27/21 22:57 Hypogranular Neuts Not Reportable 07/27/21 22:57 Smudge Cells Not Reportable 07/27/21 22:57 Toxic Granulation Not Reportable 07/27/21 22:57 Toxic Vacuolation Not Reportable 07/27/21 22:57 Dohle Bodies Not Reportable 07/27/21 22:57 Pelger-Huet Anomaly Not Reportable 07/27/21 22:57 Beryl Rods Not Reportable 07/27/21 22:57 Platelet Estimate Consistent w auto 07/27/21 22:57 Clumped Platelets Not Reportable 07/27/21 22:57 Plt Clumps, EDTA Not Reportable 07/27/21 22:57 Large Platelets Not Reportable 07/27/21 22:57 Giant Platelets Not Reportable 07/27/21 22:57 Platelet Satelliting Not Reportable 07/27/21 22:57 Plt Morphology Comment Not Reportable 07/27/21 22:57 RBC Morphology Normal 07/27/21 22:57 Dimorphic RBCs Not Reportable 07/27/21 22:57 Polychromasia Not Reportable 07/27/21 22:57 Hypochromasia Not Reportable 07/27/21 22:57 Poikilocytosis Not Reportable 07/27/21 22:57 Anisocytosis Not Reportable 07/27/21 22:57 Microcytosis Not Reportable 07/27/21 22:57 Macrocytosis Not Reportable 07/27/21 22:57 Spherocytes Not Reportable 07/27/21 22:57 Pappenheimer Bodies Not Reportable 07/27/21 22:57 Sickle Cells Not Reportable 07/27/21 22:57 Target Cells Not Reportable 07/27/21 22:57 Tear Drop Cells Not Reportable 07/27/21 22:57 Ovalocytes Not Reportable 07/27/21 22:57 Helmet Cells Not Reportable 07/27/21 22:57 Paul-Chapman Bodies Not Reportable 07/27/21 22:57 Constantine Rings Not Reportable 07/27/21 22:57 [place] Cells Not Reportable 07/27/21 22:57 Bite Cells Not Reportable 07/27/21 22:57 Crenated Cell Not Reportable 07/27/21 22:57 Elliptocytes Not Reportable 07/27/21 22:57 Acanthocytes (Spur) Not Reportable 07/27/21 22:57 Rouleaux Not Reportable 07/27/21 22:57 Hemoglobin C Crystals Not Reportable 07/27/21 22:57 Schistocytes Not Reportable 07/27/21 22:57 Malaria parasites Not Reportable 07/27/21 22:57 Gurmeet Bodies Not Reportable 07/27/21 22:57 Hem Pathologist Commnt No 07/27/21 22:57 PT 14.0 Sec. (12.2-14.9) 07/29/21 04:44 INR 1.03 (0.87-1.13) 07/29/21 04:44 D-Dimer 852.47 ng/mlDDU (0-234) H 07/29/21 07:17 ABG pH 7.236 (7.320-7.450) L 07/29/21 10:30 POC ABG pCO2 56.0 mmHg (32.0-48.0) H 07/29/21 10:30 POC ABG pO2 266.4 mmHg (83-108) H 07/29/21 10:30 POC ABG HCO3 23.2 07/29/21 10:30 ABG O2 Saturation 99.5 (0-100) 07/29/21 10:30 POC ABG Base Excess -5.0 07/29/21 10:30 ABG Hemoglobin 15.4 (12.0-17.5) 07/29/21 10:30 ABG Oxyhemoglobin 99.1 (94-98) H 07/29/21 10:30 ABG Methemoglobin 0.2 (0.0-1.5) 07/29/21 10:30 ABG Sodium 132.3 mmol/L (136.0-145.0) L 07/29/21 10:30 ABG Potassium 4.9 mmol/L (3.40-4.50) H 07/29/21 10:30 ABG Chloride 101.0 mmol/L (98-107) 07/29/21 10:30 ABG Glucose 202 mg/dL (65-95) H 07/29/21 10:30 Carboxyhemoglobin 0.2 (0.5-1.5) L 07/29/21 10:30 FiO2 % 100.0 07/29/21 10:30 Sodium 140 mmol/L (137-145) 07/29/21 07:17 Potassium 4.0 mmol/L (3.6-5.0) 07/29/21 07:17 Chloride 99.1 mmol/L (98-107) 07/29/21 07:17 Carbon Dioxide 20 mmol/L (22-30) L D 07/29/21 07:17 Anion Gap 25 mmol/L 07/29/21 07:17 BUN 23 mg/dL (7-17) H 07/29/21 07:17 Creatinine 0.9 mg/dL (0.6-1.2) 07/29/21 07:17 Estimated GFR > 60 ml/min 07/29/21 07:17 BUN/Creatinine Ratio 26 % 07/29/21 07:17 Glucose 308 mg/dL (65-100) H 07/29/21 07:17 POC Glucose 271 mg/dL (70-105) H 07/29/21 09:16 Lactic Acid 6.10 mmol/L (0.7-2.0) H* 07/28/21 13:21 Calcium 9.3 mg/dL (8.4-10.2) 07/29/21 07:17 Total Bilirubin 0.30 mg/dL (0.1-1.2) 07/27/21 22:57 AST 98 units/L (5-40) H 07/27/21 22:57 ALT 90 units/L (7-56) H 07/27/21 22:57 Alkaline Phosphatase 98 units/L (35-129) 07/27/21 22:57 Total Protein 8.0 g/dL (6.3-8.2) 07/27/21 22:57 Albumin 4.2 g/dL (3.9-5) 07/27/21 22:57 Albumin/Globulin Ratio 1.1 % 07/27/21 22:57 Arterial Blood Glucose 202 mg/dL (65-95) H 07/29/21 10:30 Arterial Blood Ionized Calcium 4.7 mg/dL (4.6-5.3) 07/29/21 10:30 Microbiology: Microbiology 07/27/21 22:48 Peripheral/Venous Blood Culture - Preliminary NO GROWTH AFTER 24 HOURS 07/27/21 22:57 Peripheral/Venous Blood Culture - Preliminary NO GROWTH AFTER 24 HOURS Elizabeth/IV: Voiding Method Toilet Active Medications - Current Medications Current Medications: Generic Name Dose Route Start Last Admin Trade Name Freq PRN Reason Stop Dose Admin Acetaminophen 650 mg 07/28/21 02:11 Acetaminophen 325 Mg Tab PO Q6H PRN Pain MILD(1-3)/Fever >100.5/GARCIA Albuterol/Ipratropium 1 ampul 07/28/21 14:00 07/29/21 07:04 Ipratropium/Albuterol Sulfate 3 Ml Ampul.Neb IH 1 ampul TID DEMIAN Administration Arformoterol Tartrate 15 mcg 07/28/21 20:00 07/29/21 10:25 Arformoterol 15 Mcg/2 Ml Nebu IH Not Given Q12HRT DEMIAN Budesonide 0.5 mg 07/28/21 20:00 07/29/21 10:25 Budesonide 0.5 Mg/2 Ml Nebu IH Not Given Q12HRT DEMIAN Dextrose 50 ml 07/28/21 02:11 Dextrose 50% In Water (25gm) 50 Ml Syringe IV Q30MIN PRN Hypoglycemia Protocol Famotidine 20 mg 07/29/21 22:00 Famotidine 20 Mg/2 Ml Inj IV BID DEMIAN Fentanyl 50 mcg 07/29/21 10:42 Fentanyl 100 Mcg/2 Ml Inj IV Q10MIN PRN ANALGESIA Heparin Sodium (Porcine) 5,000 unit 07/28/21 08:00 07/29/21 06:42 Heparin 5,000 Unit/1 Ml Vial SUB-Q 5,000 unit Q8HR DEMIAN Administration Hydrophilic Ointment 1 applic 07/29/21 10:42 Lip Therapy Vaseline TP Q2HR PRN Dry Lips Ceftriaxone Sodium 2 gm in 100 mls @ 200 mls/hr 07/28/21 06:00 07/29/21 06:42 Rocephin/Ns 2 Gm/100 Ml IV 200 mls/hr Q24H DEMIAN Administration Protocol Azithromycin 500 mg in 250 mls @ 250 mls/hr 07/28/21 07:00 07/29/21 08:10 Zithromax/Ns IV 250 mls/hr Q24H DEMIAN Administration Fentanyl Citrate 2,000 mcg in 100 mls @ 5.35 mls/hr 07/29/21 11:00 07/29/21 10:54 Fentanyl Drip Premix IV 1 mcg/kg/hr TITR DEMIAN 5.35 mls/hr Administration Protocol 1 MCG/KG/HR Midazolam HCl 100 mg/ Sodium 100 mls @ 2 mls/hr 07/29/21 11:00 Chloride IV TITR DEMIAN Protocol 2 MG/HR Insulin Human Lispro 0 unit 07/28/21 07:30 07/29/21 08:10 Insulin Lispro 100 Unit/Ml SUB-Q 2 unit ACHS [facility] Administration Protocol Magnesium Hydroxide 30 ml 07/28/21 02:11 Magnesium Hydroxide (Mom) Oral Liqd Udc PO Q4H PRN Constipation Methylprednisolone Sodium Succinate 40 mg 07/28/21 06:00 07/29/21 06:43 Methylprednisolone Sod Succinate 40 Mg/1 Ml Inj IV 40 mg Q8HR DEMIAN Administration Midazolam HCl 2 mg 07/29/21 10:42 Midazolam 2 Mg/2 Ml Inj IV Q10MIN PRN Sedation Morphine Sulfate 2 mg 07/28/21 02:11 Morphine 2 Mg/1 Ml Inj IV Q4H PRN Pain, Moderate (4-6) Morphine Sulfate 4 mg 07/28/21 02:11 Morphine 4 Mg/1 Ml Inj IV Q4H PRN Pain , Severe (7-10) Multi-Ingred Cream/Lotion/Oil/Oint 1 applic 07/29/21 10:42 Mineral Oil/Petrolatum, White Ophth Oint 3.5 Gm OU Q4HR PRN Dry Eye(s) Ondansetron HCl 4 mg 07/28/21 02:11 Ondansetron 4 Mg/2 Ml Inj IV Q8H PRN Nausea And Vomiting Senna/Docusate Sodium 1 tab 07/29/21 22:00 Sennosides/Docusate Sodium 8.6/50 Mg Tab FEEDTUBE BID DEMIAN Sodium Chloride 10 ml 07/28/21 10:00 07/28/21 22:04 Sodium Chloride 0.9% 10 Ml Flush Syringe IV 10 ml BID DEMIAN Administration Sodium Chloride 10 ml 07/28/21 02:05 Sodium Chloride 0.9% 10 Ml Flush Syringe IV PRN PRN LINE FLUSH Nutrition/Malnutrition Assess - Dietary Evaluation Nutrition/Malnutrition Findings: Nutrition Notes Start: 07/28/21 14:44 Freq: Status: Active Protocol: Document 07/28/21 14:44 (Rec: 07/28/21 14:45 MK [id number]) Nutrition Notes Need for Assessment generated from: MD Order,Education Initial or Follow up Brief Note Current Diagnosis COPD,Diabetes,Hypertension Other Pertinent Diagnosis pneu Subjective/Other Information MD consult for diet education. Pt with new COPD (2 weeks ago ). Nutrition Intervention Follow-Up By: 08/01/21 Additional Comments F/u: diet education
--- NOTE | 2021-07-29 12:38 | Vascular Lab Report ---
DUPLEX DOPPLER LOWER EXTREMITY VEINS, BILATERAL INDICATION / CLINICAL INFORMATION: swelling; cardiac arrest. TECHNIQUE: Duplex doppler imaging was performed through the veins of both lower extremities using neal ous compression and other maneuvers. COMPARISON: None available. FINDINGS: RIGHT COMMON FEMORAL VEIN: Negative. RIGHT FEMORAL VEIN: Negative. RIGHT POPLITEAL VEIN: Negative. RIGHT CALF VEINS: Negative. LEFT COMMON FEMORAL VEIN: Negative. LEFT FEMORAL VEIN: Negative. LEFT POPLITEAL VEIN: Acute thrombus. LEFT CALF VEINS: Negative. ADDITIONAL FINDINGS: None. IMPRESSION: 1. There is acute DVT in the left popliteal vein. CRITICAL RESULT: Time of Discovery (AUXILIARY ENGINEER/CDT): 1055 Time of Communication (AUXILIARY ENGINEER/CDT): 1105 Licensed Practitioner Receiving Report: Christian (nurse) Read-Back Performed: Yes. Signer Name: Reji Schaeffer MD Signed: 07/29/2021 12:34 PM Workstation Name: [email or web address]
[2021-07-29] MEDS ORDERED: SODIUM BICARBONATE 325 MG TAB FEEDTUBE PRN (13:01)
[2021-07-29] MEDS ORDERED: LIPASE 10,500/PROTEASE 25,000/AMYLASE 43,750 (UNITS) DR CAP FEEDTUBE PRN (13:01)
[2021-07-29] MEDS ORDERED: SIMPLE SYRUP 15 ML FEEDTUBE PRN ×2 (13:01)
[2021-07-29] MEDS: ENOXAPARIN 100 MG/1 ML INJ SUB-Q SCH ×2 (13:50→22:26)
[2021-07-29 14:35] LABS: Band Neutrophils # (Manual) 0.2 K/mm3; Total Cells Counted 100
[2021-07-29 14:36] LABS: Platelet Estimate Consistent w Auto; RBC Morphology Normal
[2021-07-29 18:47] LABS: Band Neutrophils # (Manual) 0.3 K/mm3; Myelocytes # (Manual) 0.3 K/mm3; Total Cells Counted 100
[2021-07-29 18:48] LABS: Platelet Estimate Consistent w Auto; RBC Morphology Normal
[2021-07-29] MEDS ORDERED: NORepinephrine/NS 4 MG-250 ML 4 MG/250 ML BAG IV SCH (21:00)
[2021-07-29] MEDS ORDERED: ENOXAPARIN 40 MG/0.4 ML INJ SUB-Q SCH (22:00)
[2021-07-29] MEDS: SENNOSIDES/DOCUSATE SODIUM 8.6/50 MG TAB FEEDTUBE SCH (22:24)
[2021-07-29] MEDS: FAMOTIDINE 20 MG/2 ML INJ IV SCH (22:24)
[2021-07-30] MEDS: INSULIN LISPRO 100 UNIT/ML SUB-Q SCH ×4 (00:45→19:08)
--- NOTE | 2021-07-30 01:23 | Hem/Onc Consultation ---
History of Present Illness - History of Present Illness ONC PRELIM DATA REVIEW consult to follow 66yo woman with h/o breast cancer, now with metastatic cancer affecting lungs and LN eval at [facility] ER for SOB, imaging foudn to have mediastinal LA and RUL mass since admission received steroid pulse DATA REVIEWED BELOW IMP: h/o breast cancer (details unavailable) now with metastatic cancer affecting lung and LN REC: biopsy most accessible tumor labs to include CEA, CA15-3, CA27-29 Active Medications Acetaminophen (Acetaminophen 325 Mg Tab) 650 mg PO Q6H PRN PRN Reason: Pain MILD(1-3)/Fever >100.5/GARCIA Albuterol/Ipratropium (Ipratropium/Albuterol Sulfate 3 Ml Ampul.Neb) 1 ampul IH TID [facility] Last Admin: 07/29/21 20:02 Dose: 1 ampul Documented by: Lipase/Protease/Amylase (Lipase 10,500/Protease 25,000/Amylase 43,750 (Units) Dr Campoverde) 1 each FEEDTUBE PRN PRN PRN Reason: For Clogged Feeding Tube Arformoterol Tartrate (Arformoterol 15 Mcg/2 Ml Nebu) 15 mcg IH Q12HRT DEMIAN Last Admin: 07/29/21 20:02 Dose: 15 mcg Documented by: Budesonide (Budesonide 0.5 Mg/2 Ml Nebu) 0.5 mg IH Q12HRT [facility] Last Admin: 07/29/21 20:03 Dose: 0.5 mg Documented by: Dextrose (Dextrose 50% In Water (25gm) 50 Ml Syringe) 50 ml IV Q30MIN PRN; Protocol PRN Reason: Hypoglycemia Enoxaparin Sodium (Enoxaparin 100 Mg/1 Ml Inj) 100 mg SUB-Q Q12HR DEMIAN; Protocol Last Admin: 07/29/21 22:26 Dose: 100 mg Documented by: Famotidine (Famotidine 20 Mg/2 Ml Inj) 20 mg IV BID [facility] Last Admin: 07/29/21 22:24 Dose: 20 mg Documented by: Fentanyl (Fentanyl 100 Mcg/2 Ml Inj) 50 mcg IV Q10MIN PRN PRN Reason: ANALGESIA Hydrophilic Ointment (Lip Therapy Vaseline) 1 applic TP Q2HR PRN PRN Reason: Dry Lips Ceftriaxone Sodium (Rocephin/Ns 2 Gm/100 Ml) 2 gm in 100 mls @ 200 mls/hr IV Q24H DEMIAN; Protocol Stop: 08/01/21 06:29 Last Admin: 07/29/21 06:42 Dose: 200 mls/hr Documented by: Azithromycin (Zithromax/Ns) 500 mg in 250 mls @ 250 mls/hr IV Q24H DEMIAN Stop: 08/01/21 07:59 Last Admin: 07/29/21 08:10 Dose: 250 mls/hr Documented by: Fentanyl Citrate (Fentanyl Drip Premix) 2,000 mcg in 100 mls @ 5.35 mls/hr IV TITR DEMIAN; Protocol Last Admin: 07/29/21 10:54 Dose: 1 mcg/kg/hr, 5.35 mls/hr Documented by: Midazolam HCl 100 mg/ Sodium (Chloride) 100 mls @ 2 mls/hr IV TITR DEMIAN; Protocol Norepinephrine (Levophed Drip 4 Mg/Ns 250 Ml) 4 mg in 250 mls @ 7.5 mls/hr IV TITR DEMIAN; Protocol Insulin Human Lispro (Insulin Lispro 100 Unit/Ml) 0 unit SUB-Q Q6HR DEMIAN; Protoc ol Last Admin: 07/30/21 00:45 Dose: 3 unit Documented by: Magnesium Hydroxide (Magnesium Hydroxide (Mom) Oral Liqd Udc) 30 ml PO Q4H PRN PRN Reason: Constipation Methylprednisolone Sodium Succinate (Methylprednisolone Sod Succinate 40 Mg/1 Ml Inj) 40 mg IV Q8HR [facility] Last Admin: 07/29/21 22:24 Dose: 40 mg Documented by: Midazolam HCl (Midazolam 2 Mg/2 Ml Inj) 2 mg IV Q10MIN PRN PRN Reason: Sedation Multi-Ingred Cream/Lotion/Oil/Oint (Mineral Oil/Petrolatum, White Ophth Oint 3.5 Gm) 1 applic OU Q4HR PRN PRN Reason: Dry Eye(s) Ondansetron HCl (Ondansetron 4 Mg/2 Ml Inj) 4 mg IV Q8H PRN PRN Reason: Nausea And Vomiting Senna/Docusate Sodium (Sennosides/Docusate Sodium 8.6/50 Mg Tab) 1 tab FEEDTUBE BID [facility] Last Admin: 07/29/21 22:24 Dose: 1 tab Documented by: Documented by: Sodium Chloride (Sodium Chloride 0.9% 10 Ml Flush Syringe) 10 ml IV PRN PRN PRN Reason: LINE FLUSH Laboratory Last Values WBC 26.1 K/mm3 (4.5-11.0) H 07/29/21 07:17 Hgb 14.1 gm/dl (10.1-14.3) 07/29/21 07:17 Hct 43.3 % (30.3-42.9) H 07/29/21 07:17 Plt Count 389 K/mm3 (140-440) 07/29/21 07:17 Creatinine 0.9 mg/dL (0.6-1.2) 07/29/21 07:17 Coronavirus (PCR) Negative (Negative) 07/29/21 07:58 . Past History Past Medical History: COPD, diabetes, hypertension, hyperlipidemia, other (History of right breast cancer) Past Surgical History: hysterectomy, mastectomy, tonsillectomy Social history: smoking (Current daily smoker) Family history: no significant family history Medications and Allergies Allergies Allergy/AdvReac Type Severity Reaction Status Date / Time No Known Allergies Allergy Verified 12/24/18 11:45 Home Medications Medication Instructions Recorded Confirmed Last Taken Type traMADoL [Ultram 50 MG tab] 50 mg PO Q6HR PRN #15 tablet 01/25/18 Unknown Rx Active Meds: Active Medications Acetaminophen (Acetaminophen 325 Mg Tab) 650 mg PO Q6H PRN PRN Reason: Pain MILD(1-3)/Fever >100.5/GARCIA Albuterol/Ipratropium (Ipratropium/Albuterol Sulfate 3 Ml Ampul.Neb) 1 ampul IH TID [facility] Last Admin: 07/29/21 20:02 Dose: 1 ampul Documented by: Lipase/Protease/Amylase (Lipase 10,500/Protease 25,000/Amylase 43,750 (Units) Dr Campoverde) 1 each FEEDTUBE PRN PRN PRN Reason: For Clogged Feeding Tube Arformoterol Tartrate (Arformoterol 15 Mcg/2 Ml Nebu) 15 mcg IH Q12HRT [facility] Last Admin: 07/29/21 20:02 Dose: 15 mcg Documented by: Budesonide (Budesonide 0.5 Mg/2 Ml Nebu) 0.5 mg IH Q12HRT [facility] Last Admin: 07/29/21 20:03 Dose: 0.5 mg Documented by: Dextrose (Dextrose 50% In Water (25gm) 50 Ml Syringe) 50 ml IV Q30MIN PRN; Protocol PRN Reason: Hypoglycemia Enoxaparin Sodium (Enoxaparin 100 Mg/1 Ml Inj) 100 mg SUB-Q Q12HR DEMIAN; Protocol Last Admin: 07/29/21 22:26 Dose: 100 mg Documented by: Famotidine (Famotidine 20 Mg/2 Ml Inj) 20 mg IV BID [facility] Last Admin: 07/29/21 22:24 Dose: 20 mg Documented by: Fentanyl (Fentanyl 100 Mcg/2 Ml Inj) 50 mcg IV Q10MIN PRN PRN Reason: ANALGESIA Hydrophilic Ointment (Lip Therapy Vaseline) 1 applic TP Q2HR PRN PRN Reason: Dry Lips Ceftriaxone Sodium (Rocephin/Ns 2 Gm/100 Ml) 2 gm in 100 mls @ 200 mls/hr IV Q24H DEMIAN; Protocol Stop: 08/01/21 06:29 Last Admin: 07/29/21 06:42 Dose: 200 mls/hr Documented by: Azithromycin (Zithromax/Ns) 500 mg in 250 mls @ 250 mls/hr IV Q24H [facility] Stop: 08/01/21 07:59 Last Admin: 07/29/21 08:10 Dose: 250 mls/hr Documented by: Fentanyl Citrate (Fentanyl Drip Premix) 2,000 mcg in 100 mls @ 5.35 mls/hr IV TITR DEMIAN; Protocol Last Admin: 07/29/21 10:54 Dose: 1 mcg/kg/hr, 5.35 mls/hr Documented by: Midazolam HCl 100 mg/ Sodium (Chloride) 100 mls @ 2 mls/hr IV TITR DEMIAN; Protocol Norepinephrine (Levophed Drip 4 Mg/Ns 250 Ml) 4 mg in 250 mls @ 7.5 mls/hr IV TITR DEMIAN; Protocol Insulin Human Lispro (Insulin Lispro 100 Unit/Ml) 0 unit SUB-Q Q6HR DEMIAN; Protocol Last Admin: 07/30/21 00:45 Dose: 3 unit Documented by: Magnesium Hydroxide (Magnesium Hydroxide (Mom) Oral Liqd Udc) 30 ml PO Q4H PRN PRN Reason: Constipation Methylprednisolone Sodium Succinate (Methylprednisolone Sod Succinate 40 Mg/1 Ml Inj) 40 mg IV Q8HR DEMIAN Last Admin: 07/29/21 22:24 Dose: 40 mg Documented by: Midazolam HCl (Midazolam 2 Mg/2 Ml Inj) 2 mg IV Q10MIN PRN PRN Reason: Sedation Multi-Ingred Cream/Lotion/Oil/Oint (Mineral Oil/Petrolatum, White Ophth Oint 3.5 Gm) 1 applic OU Q4HR PRN PRN Reason: Dry Eye(s) Ondansetron HCl (Ondansetron 4 Mg/2 Ml Inj) 4 mg IV Q8H PRN PRN Reason: Nausea And Vomiting Senna/Docusate Sodium (Sennosides/Docusate Sodium 8.6/50 Mg Tab) 1 tab FEEDTUBE BID [facility] Last Admin: 07/29/21 22:24 Dose: 1 tab Documented by: Simple Syrup (Simple Syrup 15 Ml) 15 ml FEEDTUBE PRN PRN PRN Reason: Hypoglycemia Simple Syrup (Simple Syrup 15 Ml) 30 ml FEEDTUBE PRN PRN PRN Reason: Hypoglycemia Sodium Bicarbonate (Sodium Bicarbonate 325 Mg Tab) 325 mg FEEDTUBE PRN PRN PRN Reason: For Clogged Feeding Tube Sodium Chloride (Sodium Chloride 0.9% 10 Ml Flush Syringe) 10 ml IV BID [facility] Last Admin: 07/29/21 22:25 Dose: 10 ml Documented by: Sodium Chloride (Sodium Chloride 0.9% 10 Ml Flush Syringe) 10 ml IV PRN PRN PRN Reason: LINE FLUSH Exam - Constitutional Vitals: Last Vital Signs Temp 99.3 F 07/29/21 23:38 Pulse 117 H 07/30/21 00:27 Resp 30 H 07/29/21 21:40 BP 115/77 07/30/21 00:27 Pulse Ox 100 07/30/21 00:27 Results - Labs lab Results: Laboratory Results - last 24 hr 07/29/21 07/29/21 07/29/21 04:44 04:44 04:44 WBC 17.0 H RBC 4.30 Hgb 12.6 Hct 37.7 MCV 88 MCH 29 MCHC 34 RDW 15.1 Plt Count 318 Add Manual Diff Complete Total Counted 100 Seg Neutrophils % College Teacher Seg Neuts % (Manual) 82.0 H Band Neutrophils % 1.0 Lymphocytes % (Manual) 11.0 L Monocytes % (Manual) 6.0 Metamyelocytes % Myelocytes % Nucleated RBC % Not Reportable Seg Neutrophils # Man 13.9 H Band Neutrophils # 0.2 Lymphocytes # (Manual) 1.9 Abs React Lymphs (Man) 0.0 Monocytes # (Manual) 1.0 H Eosinophils # (Manual) 0.0 Basophils # (Manual) 0.0 Metamyelocytes # 0.0 Myelocytes # 0.0 Promyelocytes # 0.0 Blast Cells # 0.0 WBC Morphology Not Reportable Hypersegmented Neuts Not Reportable Hyposegmented Neuts Not Reportable Hypogranular Neuts Not Reportable Smudge Cells Not Reportable Toxic Granulation Not Reportable Toxic Vacuolation Not Reportable Dohle Bodies Not Reportable Pelger-Huet Anomaly Not Reportable Beryl Rods Not Reportable Platelet Estimate Consistent w auto Clumped Platelets Not Reportable Plt Clumps, EDTA Not Reportable Large Platelets Not Reportable Giant Platelets Not Reportable Platelet Satelliting Not Reportable Plt Morphology Comment Not Reportable RBC Morphology Normal Dimorphic RBCs Not Reportable Polychromasia Not Reportable Hypochromasia Not Reportable Poikilocytosis Not Reportable Anisocytosis Not Reportable Microcytosis Not Reportable Macrocytosis Not Reportable Spherocytes Not Reportable Pappenheimer Bodies Not Reportable Sickle Cells Not Reportable Target Cells Not Reportable Tear Drop Cells Not Reportable Ovalocytes Not Reportable Helmet Cells Not Reportable Paul-Coolin Bodies Not Reportable Marshall Rings Not Reportable [place] Cells Not Reportable Bite Cells Not Reportable Crenated Cell Not Reportable Elliptocytes Not Reportable Acanthocytes (Spur) Not Reportable Rouleaux Not Reportable Hemoglobin C Crystals Not Reportable Schistocytes Not Reportable Malaria parasites Not Reportable Gurmeet Bodies Not Reportable Hem Pathologist Commnt No PT 14.0 INR 1.03 D-Dimer ABG pH POC ABG pCO2 POC ABG pO2 POC ABG HCO3 ABG O2 Saturation POC ABG Base Excess ABG Hemoglobin ABG Oxyhemoglobin ABG Methemoglobin ABG Sodium ABG Potassium ABG Chloride ABG Glucose Carboxyhemoglobin FiO2 % Sodium 140 Potassium 4.1 Chloride 100.7 Carbon Dioxide 27 D Anion Gap 16 BUN 23 H Creatinine 0.8 Estimated GFR > 60 BUN/Creatinine Ratio 29 Glucose 196 H POC Glucose Calcium 9.3 Arterial Blood Glucose Arterial Blood Ionized Calcium Coronavirus (PCR) 07/29/21 07/29/21 07/29/21 06:56 07:17 07:17 WBC 26.1 H RBC 4.80 Hgb 14.1 Hct 43.3 H MCV 90 MCH 29 MCHC 33 RDW 16.0 H Plt Count 389 Add Manual Diff Complete Total Counted 100 Seg Neutrophils % Seg Neuts % (Manual) 80.0 H Band Neutrophils % 1.0 Lymphocytes % (Manual) 17.0 Monocytes % (Manual) Metamyelocytes % 1.0 Myelocytes % 1.0 Nucleated RBC % Not Reportable Seg Neutrophils # Man 20.9 H Band Neutrophils # 0.3 Lymphocytes # (Manual) 4.4 Abs React Lymphs (Man) 0.0 Monocytes # (Manual) 0.0 Eosinophils # (Manual) 0.0 Basophils # (Manual) 0.0 Metamyelocytes # 0.3 Myelocytes # 0.3 Promyelocytes # 0.0 Blast Cells # 0.0 WBC Morphology Not Reportable Hypersegmented Neuts Not Reportable Hyposegmented Neuts Not Reportable Hypogranular Neuts Not Reportable Smudge Cells Not Reportable Toxic Granulation Not Reportable Toxic Vacuolation Not Reportable Dohle Bodies Not Reportable Pelger-Huet Anomaly Not Reportable Beryl Rods Not Reportable Platelet Estimate Consistent w auto Clumped Platelets Not Reportable Plt Clumps, EDTA Not Reportable Large Platelets Not Reportable Giant Platelets Not Reportable Platelet Satelliting Not Reportable Plt Morphology Comment Not Reportable RBC Morphology Normal Dimorphic RBCs Not Reportable Polychromasia Not Reportable Hypochromasia Not Reportable Poikilocytosis Not Reportable Anisocytosis Not Reportable Microcytosis Not Reportable Macrocytosis Not Reportable Spherocytes Not Reportable Pappenheimer Bodies Not Reportable Sickle Cells Not Reportable Target Cells Not Reportable Tear Drop Cells Not Reportable Ovalocytes Not Reportable Helmet Cells Not Reportable Paul-Coolin Bodies Not Reportable Marshall Rings Not Reportable Estelita Cells Not Reportable Bite Cells Not Reportable Crenated Cell Not Reportable Elliptocytes Not Reportable Acanthocytes (Spur) Not Reportable Rouleaux Not Reportable Hemoglobin C Crystals Not Reportable Schistocytes Not Reportable Malaria parasites Not Reportable Gurmeet Bodies Not Reportable Hem Pathologist Commnt No PT INR D-Dimer ABG pH POC ABG pCO2 POC ABG pO2 POC ABG HCO3 ABG O2 Saturation POC ABG Base Excess ABG Hemoglobin ABG Oxyhemoglobin ABG Methemoglobin ABG Sodium ABG Potassium ABG Chloride ABG Glucose Carboxyhemoglobin FiO2 % Sodium 140 Potassium 4.0 Chloride 99.1 Carbon Dioxide 20 L D Anion Gap 25 BUN 23 H Creatinine 0.9 Estimated GFR > 60 BUN/Creatinine Ratio 26 Glucose 308 H POC Glucose 165 H Calcium 9.3 Arterial Blood Glucose Arterial Blood Ionized Calcium Coronavirus (PCR) 07/29/21 07/29/21 07/29/21 07:17 07:58 09:16 WBC RBC Hgb Hct MCV MCH MCHC RDW Plt Count Add Manual Diff Total Counted Seg Neutrophils % Seg Neuts % (Manual) Band Neutrophils % Lymphocytes % (Manual) Monocytes % (Manual) Metamyelocytes % Myelocytes % Nucleated RBC % Seg Neutrophils # Man Band Neutrophils # Lymphocytes # (Manual) Abs React Lymphs (Man) Monocytes # (Manual) Eosinophils # (Manual) Basophils # (Manual) Metamyelocytes # Myelocytes # Promyelocytes # Blast Cells # WBC Morphology Hypersegmented Neuts Hyposegmented Neuts Hypogranular Neuts Smudge Cells Toxic Granulation Toxic Vacuolation Dohle Bodies Pelger-Huet Anomaly Beryl Rods Platelet Estimate Clumped Platelets Plt Clumps, EDTA Large Platelets Giant Platelets Platelet Satelliting Plt Morphology Comment RBC Morphology Dimorphic RBCs Polychromasia Hypochromasia Poikilocytosis Anisocytosis Microcytosis Macrocytosis Spherocytes Pappenheimer Bodies Sickle Cells Target Cells Tear Drop Cells Ovalocytes Helmet Cells Paul-Coolin Bodies Marshall Rings Estelita Cells Bite Cells Crenated Cell Elliptocytes Acanthocytes (Spur) Rouleaux Hemoglobin C Crystals Schistocytes Malaria parasites Gurmeet Bodies Hem Pathologist Commnt PT INR D-Dimer 852.47 H ABG pH POC ABG pCO2 POC ABG pO2 POC ABG HCO3 ABG O2 Saturation POC ABG Base Excess ABG Hemoglobin ABG Oxyhemoglobin ABG Methemoglobin ABG Sodium ABG Potassium ABG Chloride ABG Glucose Carboxyhemoglobin FiO2 % Sodium Potassium Chloride Carbon Dioxide Anion Gap BUN Creatinine Estimated GFR BUN/Creatinine Ratio Glucose POC Glucose 271 H Calcium Arterial Blood Glucose Arterial Blood Ionized Calcium Coronavirus (PCR) Negative 07/29/21 07/29/21 07/29/21 10:30 17:54 23:32 WBC RBC Hgb Hct MCV MCH MCHC RDW Plt Count Add Manual Diff Total Counted Seg Neutrophils % Seg Neuts % (Manual) Band Neutrophils % Lymphocytes % (Manual) Monocytes % (Manual) Metamyelocytes % Myelocytes % Nucleated RBC % Seg Neutrophils # Man Band Neutrophils # Lymphocytes # (Manual) Abs React Lymphs (Man) Monocytes # (Manual) Eosinophils # (Manual) Basophils # (Manual) Metamyelocytes # Myelocytes # Promyelocytes # Blast Cells # WBC Morphology Hypersegmented Neuts Hyposegmented Neuts Hypogranular Neuts Smudge Cells Toxic Granulation Toxic Vacuolation Dohle Bodies Pelger-Huet Anomaly Beryl Rods Platelet Estimate Clumped Platelets Plt Clumps, EDTA Large Platelets Giant Platelets Platelet Satelliting Plt Morphology Comment RBC Morphology Dimorphic RBCs Polychromasia Hypochromasia Poikilocytosis Anisocytosis Microcytosis Macrocytosis Spherocytes Pappenheimer Bodies Sickle Cells Target Cells Tear Drop Cells Ovalocytes Helmet Cells Paul-Coolin Bodies Marshall Rings [place] Cells Bite Cells Crenated Cell Elliptocytes Acanthocytes (Spur) Rouleaux Hemoglobin C Crystals Schistocytes Malaria parasites Gurmeet Bodies Hem Pathologist Commnt PT INR D-Dimer ABG pH 7.236 L POC ABG pCO2 56.0 H POC ABG pO2 266.4 H POC ABG HCO3 23.2 ABG O2 Saturation 99.5 POC ABG Base Excess -5.0 ABG Hemoglobin 15.4 ABG Oxyhemoglobin 99.1 H ABG Methemoglobin 0.2 ABG Sodium 132.3 L ABG Potassium 4.9 H ABG Chloride 101.0 ABG Glucose 202 H Carboxyhemoglobin 0.2 L FiO2 % 100.0 Sodium Potassium Chloride Carbon Dioxide Anion Gap BUN Creatinine Estimated GFR BUN/Creatinine Ratio Glucose POC Glucose 168 H 205 H Calcium Arterial Blood Glucose 202 H Arterial Blood Ionized Calcium 4.7 Coronavirus (PCR)
--- NOTE | 2021-07-30 04:56 | XRay Report ---
CHEST 1 VIEW INDICATION: follow up respiratory failure. COMPARISON: One day prior. FINDINGS: Support devices: Left PICC tip projects over the SVC. Tubes are unchanged. Heart: Stable. Lungs/Pleura: Bilateral pulmonary opacities have significantly improved. No pneumothorax. IMPRESSION: 1. Significant improvement in bilateral airspace disease. Signer Name: Elvis Farrell MD Signed: 07/30/2021 4:51 AM Workstation Name: [id number]
[2021-07-30] MEDS: cefTRIAXone/NS 2 GM/100 ML 2 GM/100 ML BAG IV SCH (06:11)
[2021-07-30] MEDS: methylPREDNISolone Sod Succinate 40 MG/1 ML INJ IV SCH ×3 (06:11→22:19)
[2021-07-30] MEDS: IPRATROPIUM/ALBUTEROL SULFATE 3 ML AMPUL.NEB IH SCH ×3 (07:42→20:14)
[2021-07-30] MEDS: ARFORMOTEROL 15 MCG/2 ML NEBU IH SCH ×2 (07:42→20:14)
[2021-07-30] MEDS: BUDESONIDE 0.5 MG/2 ML NEBU IH SCH ×2 (07:42→20:14)
--- NOTE | 2021-07-30 09:56 | Progress Note ---
Assessment and Plan Assessment and plan: Acute hypoxic respiratory failure Acute COPD exacerbation Right upper lobe postobstructive pneumonia Sepsis. 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 Mediastinal lymphadenopathy. Left lower extremity DVT. 07/29/2021. Patient seen this morning with Shabbir-Chavira respiration/agonal breathing. RENEE ABREU was called and patient was intubated and placed on mechanical ventilation. Patient transferred to ICU. Critical care/pulmonary consulted. Patient currently with AC mode rate of 30, FiO2 100%, PEEP of 12. Continue IV antibiotics. Consult ID and oncology for further evaluation. Patient will likely need bronchoscopy for further evaluation of the lung mass. Doppler ultrasound revealedLLE DVT. Start anticoagulation. 07/30/2021. Patient appears much improved and more responsive this morning. Patient currently with AC mode ventilation rate of 24, tidal volume 450, PEEP of 8 and FiO2 35%. Spontaneous breathing trials with possible extubation today per pulmonary. Bronchoscopy per pulmonary. Continue Lovenox twice daily for DVT. Continue IV antibiotics for sepsis/pneumonia. ID consultation pending. Follow- up [facility], [place] 15-3, [place] 27[place]. The high probability of a clinically significant, sudden or life threatening deterioration of the [respiratory] system(s) required my full and direct attention, intervention and personal management. The aggregate critical care time was [32] minutes. This time is in addition to time spent performing reported procedures but includes the following: [x] Data Review and interpretation [x] Patient assessment and monitoring of vital signs [x] Documentation [x] Medication orders and management History Interval history: Patient remains intubated on mechanical ventilation. Hospitalist Physical - Constitutional Vitals: Temp Pulse Resp BP Pulse Ox 98.4 F 88 28 H 143/89 97 07/30/21 08:00 07/30/21 08:32 07/30/21 07:42 07/30/21 08:32 07/30/21 08:32 General appearance: Present: no acute distress, well-nourished - EENT Eyes: Present: PERRL, EOM intact ENT: hearing intact, clear oral mucosa, dentition normal - Neck Neck: Present: supple, normal ROM - Respiratory Respiratory effort: normal Respiratory: bilateral: CTA - Cardiovascular Rhythm: regular Heart Sounds: Present: S1 & S2. Absent: gallop, rub - Extremities Extremities: no ischemia, No edema, Full ROM - Abdominal General gastrointestinal: soft, non-tender, non-distended, normal bowel sounds - Integumentary Integumentary: Present: clear, warm, dry - Neurologic Neurologic: CNII-XII intact, moves all extremities Results - Labs CBC & Chem 7: 07/29/21 07:17 07/29/21 07:17 Labs: Laboratory Last Values WBC 26.1 K/mm3 (4.5-11.0) H 07/29/21 07:17 RBC 4.80 M/mm3 (3.65-5.03) 07/29/21 07:17 Hgb 14.1 gm/dl (10.1-14.3) 07/29/21 07:17 Hct 43.3 % (30.3-42.9) H 07/29/21 07:17 MCV 90 fl (79-97) 07/29/21 07:17 MCH 29 pg (28-32) 07/29/21 07:17 MCHC 33 % (30-34) 07/29/21 07:17 RDW 16.0 % (13.2-15.2) H 07/29/21 07:17 Plt Count 389 K/mm3 (140-440) 07/29/21 07:17 Add Manual Diff Complete 07/29/21 07:17 Total Counted 100 07/29/21 07:17 Seg Neutrophils % [place] 07/29/21 04:44 Seg Neuts % (Manual) 80.0 % (40.0-70.0) H 07/29/21 07:17 Band Neutrophils % 1.0 % 07/29/21 07:17 Lymphocytes % (Manual) 17.0 % (13.4-35.0) 07/29/21 07:17 Monocytes % (Manual) 6.0 % (0.0-7.3) 07/29/21 04:44 Metamyelocytes % 1.0 % 07/29/21 07:17 Myelocytes % 1.0 % 07/29/21 07:17 Nucleated RBC % Not Reportable 07/29/21 07:17 Seg Neutrophils # Man 20.9 K/mm3 (1.8-7.7) H 07/29/21 07:17 Band Neutrophils # 0.3 K/mm3 07/29/21 07:17 Lymphocytes # (Manual) 4.4 K/mm3 (1.2-5.4) 07/29/21 07:17 Abs React Lymphs (Man) 0.0 K/mm3 07/29/21 07:17 Monocytes # (Manual) 0.0 K/mm3 (0.0-0.8) 07/29/21 07:17 Eosinophils # (Manual) 0.0 K/mm3 (0.0-0.4) 07/29/21 07:17 Basophils # (Manual) 0.0 K/mm3 (0.0-0.1) 07/29/21 07:17 Metamyelocytes # 0.3 K/mm3 07/29/21 07:17 Myelocytes # 0.3 K/mm3 07/29/21 07:17 Promyelocytes # 0.0 K/mm3 07/29/21 07:17 Blast Cells # 0.0 K/mm3 07/29/21 07:17 WBC Morphology Not Reportable 07/29/21 07:17 Hypersegmented Neuts Not Reportable 07/29/21 07:17 Hyposegmented Neuts Not Reportable 07/29/21 07:17 Hypogranular Neuts Not Reportable 07/29/21 07:17 Smudge Cells Not Reportable 07/29/21 07:17 Toxic Granulation Not Reportable 07/29/21 07:17 Toxic Vacuolation Not Reportable 07/29/21 07:17 Dohle Bodies Not Reportable 07/29/21 07:17 Pelger-Huet Anomaly Not Reportable 07/29/21 07:17 Beryl Rods Not Reportable 07/29/21 07:17 Platelet Estimate Consistent w auto 07/29/21 07:17 Clumped Platelets Not Reportable 07/29/21 07:17 Plt Clumps, EDTA Not Reportable 07/29/21 07:17 Large Platelets Not Reportable 07/29/21 07:17 Giant Platelets Not Reportable 07/29/21 07:17 Platelet Satelliting Not Reportable 07/29/21 07:17 Plt Morphology Comment Not Reportable 07/29/21 07:17 RBC Morphology Normal 07/29/21 07:17 Dimorphic RBCs Not Reportable 07/29/21 07:17 Polychromasia Not Reportable 07/29/21 07:17 Hypochromasia Not Reportable 07/29/21 07:17 Poikilocytosis Not Reportable 07/29/21 07:17 Anisocytosis Not Reportable 07/29/21 07:17 Microcytosis Not Reportable 07/29/21 07:17 Macrocytosis Not Reportable 07/29/21 07:17 Spherocytes Not Reportable 07/29/21 07:17 Pappenheimer Bodies Not Reportable 07/29/21 07:17 Sickle Cells Not Reportable 07/29/21 07:17 Target Cells Not Reportable 07/29/21 07:17 Tear Drop Cells Not Reportable 07/29/21 07:17 Ovalocytes Not Reportable 07/29/21 07:17 Helmet Cells Not Reportable 07/29/21 07:17 [place] Bodies Not Reportable 07/29/21 07:17 [place] Rings Not Reportable 07/29/21 07:17 [place]ita Cells Not Reportable 07/29/21 07:17 Bite Cells Not Reportable 07/29/21 07:17 Crenated Cell Not Reportable 07/29/21 07:17 Elliptocytes Not Reportable 07/29/21 07:17 Acanthocytes (Spur) Not Reportable 07/29/21 07:17 Rouleaux Not Reportable 07/29/21 07:17 Hemoglobin C Crystals Not Reportable 07/29/21 07:17 Schistocytes Not Reportable 07/29/21 07:17 Malaria parasites Not Reportable 07/29/21 07:17 Gurmeet Bodies Not Reportable 07/29/21 07:17 Hem Pathologist Commnt No 07/29/21 07:17 PT 14.0 Sec. (12.2-14.9) 07/29/21 04:44 INR 1.03 (0.87-1.13) 07/29/21 04:44 D-Dimer 852.47 ng/mlDDU (0-234) H 07/29/21 07:17 ABG pH 7.480 (7.320-7.450) H 07/30/21 06:01 POC ABG pCO2 23.6 mmHg (32.0-48.0) L 07/30/21 06:01 POC ABG pO2 280.0 mmHg (83-108) H 07/30/21 06:01 POC ABG HCO3 17.2 07/30/21 06:01 ABG O2 Saturation 99.6 (0-100) 07/30/21 06:01 POC ABG Base Excess -4.4 07/30/21 06:01 ABG Hemoglobin 13.8 (12.0-17.5) 07/30/21 06:01 ABG Oxyhemoglobin 99.3 (94-98) H 07/30/21 06:01 ABG Methemoglobin 0.3 (0.0-1.5) 07/30/21 06:01 ABG Sodium 133.7 mmol/L (136.0-145.0) L 07/30/21 06:01 ABG Potassium 3.4 mmol/L (3.40-4.50) 07/30/21 06:01 ABG Chloride 102.0 mmol/L (98-107) 07/30/21 06:01 ABG Glucose 232 mg/dL (65-95) H 07/30/21 06:01 Carboxyhemoglobin 0 (0.5-1.5) L 07/30/21 06:01 FiO2 % 55.0 07/30/21 06:01 Sodium 140 mmol/L (137-145) 07/29/21 07:17 Potassium 4.0 mmol/L (3.6-5.0) 07/29/21 07:17 Chloride 99.1 mmol/L (98-107) 07/29/21 07:17 Carbon Dioxide 20 mmol/L (22-30) L D 07/29/21 07:17 Anion Gap 25 mmol/L 07/29/21 07:17 BUN 23 mg/dL (7-17) H 07/29/21 07:17 Creatinine 0.9 mg/dL (0.6-1.2) 07/29/21 07:17 Estimated GFR > 60 ml/min 07/29/21 07:17 BUN/Creatinine Ratio 26 % 07/29/21 07:17 Glucose 308 mg/dL (65-100) H 07/29/21 07:17 POC Glucose 214 mg/dL (70-105) H 07/30/21 05:08 Lactic Acid 6.10 mmol/L (0.7-2.0) H* 07/28/21 13:21 Calcium 9.3 mg/dL (8.4-10.2) 07/29/21 07:17 Total Bilirubin 0.30 mg/dL (0.1-1.2) 07/27/21 22:57 AST 98 units/L (5-40) H 07/27/21 22:57 ALT 90 units/L (7-56) H 07/27/21 22:57 Alkaline Phosphatase 98 units/L (35-129) 07/27/21 22:57 Total Protein 8.0 g/dL (6.3-8.2) 07/27/21 22:57 Albumin 4.2 g/dL (3.9-5) 07/27/21 22:57 Albumin/Globulin Ratio 1.1 % 07/27/21 22:57 Arterial Blood Glucose 232 mg/dL (65-95) H 07/30/21 06:01 Arterial Blood Ionized Calcium 4.4 mg/dL (4.6-5.3) L 07/30/21 06:01 Coronavirus (PCR) Negative (Negative) 07/29/21 07:58 Microbiology: Microbiology 07/27/21 22:48 Peripheral/Venous Blood Culture - Preliminary NO GROWTH AFTER 48 HOURS 07/27/21 22:57 Peripheral/Venous Blood Culture - Preliminary NO GROWTH AFTER 48 HOURS Elizabeth/IV: Voiding Method Indwelling Catheter Active Medications - Current Medications Current Medications: Generic Name Dose Route Start Last Admin Trade Name Freq PRN Reason Stop Dose Admin Acetaminophen 650 mg 07/28/21 02:11 Acetaminophen 325 Mg Tab PO Q6H PRN Pain MILD(1-3)/Fever >100.5/GARCIA Albuterol/Ipratropium 1 ampul 07/28/21 14:00 07/30/21 07:42 Ipratropium/Albuterol Sulfate 3 Ml Ampul.Neb IH 1 ampul TID DEMIAN Administration Lipase/Protease/Amylase 1 each 07/29/21 13:01 Lipase 10,500/Protease 25,000/Amylase 43,750 (Units) Dr Gilles WRIGHTTUBE PRN PRN For Clogged Feeding Tube Arformoterol Tartrate 15 mcg 07/28/21 20:00 07/30/21 07:42 Arformoterol 15 Mcg/2 Ml Nebu IH 15 mcg Q12HRT DEMIAN Administration Budesonide 0.5 mg 07/28/21 20:00 07/30/21 07:42 Budesonide 0.5 Mg/2 Ml Nebu IH 0.5 mg Q12HRT DEMIAN Administration Dextrose 50 ml 07/28/21 02:11 Dextrose 50% In Water (25gm) 50 Ml Syringe IV Q30MIN PRN Hypoglycemia Protocol Enoxaparin Sodium 100 mg 07/29/21 13:00 07/29/21 22:26 Enoxaparin 100 Mg/1 Ml Inj SUB-Q 100 mg Q12HR DEMIAN Administration Protocol Famotidine 20 mg 07/29/21 22:00 07/29/21 22:24 Famotidine 20 Mg/2 Ml Inj IV 20 mg BID DEMIAN Administration Fentanyl 50 mcg 07/29/21 10:42 Fentanyl 100 Mcg/2 Ml Inj IV Q10MIN PRN ANALGESIA Hydrophilic Ointment 1 applic 07/29/21 10:42 Lip Therapy Vaseline TP Q2HR PRN Dry Lips Ceftriaxone Sodium 2 gm in 100 mls @ 200 mls/hr 07/28/21 06:00 07/30/21 06:11 Rocephin/Ns 2 Gm/100 Ml IV 08/01/21 06:29 200 mls/hr Q24H DEMIAN Administration Protocol Azithromycin 500 mg in 250 mls @ 250 mls/hr 07/28/21 07:00 07/29/21 08:10 Zithromax/Ns IV 08/01/21 07:59 250 mls/hr Q24H DEMIAN Administration Fentanyl Citrate 2,000 mcg in 100 mls @ 5.35 mls/hr 07/29/21 11:00 07/29/21 10:54 Fentanyl Drip Premix IV 1 mcg/kg/hr TITR DEMIAN 5.35 mls/hr Administration Protocol 1 MCG/KG/HR Midazolam HCl 100 mg/ Sodium 100 mls @ 2 mls/hr 07/29/21 11:00 Chloride IV TITR DEMIAN Protocol 2 MG/HR Norepinephrine 4 mg in 250 mls @ 7.5 mls/hr 07/29/21 21:00 Levophed Drip 4 Mg/Ns 250 Ml IV TITR DEMIAN Protocol 2 MCG/MIN Insulin Human Lispro 0 unit 07/29/21 12:00 07/30/21 06:10 Insulin Lispro 100 Unit/Ml SUB-Q 3 unit Q6HR DEMIAN Administration Protocol Magnesium Hydroxide 30 ml 07/28/21 02:11 Magnesium Hydroxide (Mom) Oral Liqd Udc PO Q4H PRN Constipation Methylprednisolone Sodium Succinate 40 mg 07/28/21 06:00 07/30/21 06:11 Methylprednisolone Sod Succinate 40 Mg/1 Ml Inj IV 40 mg Q8HR DEMIAN Administration Midazolam HCl 2 mg 07/29/21 10:42 Midazolam 2 Mg/2 Ml Inj IV Q10MIN PRN Sedation Multi-Ingred Cream/Lotion/Oil/Oint 1 applic 07/29/21 10:42 Mineral Oil/Petrolatum, White Ophth Oint 3.5 Gm OU Q4HR PRN Dry Eye(s) Ondansetron HCl 4 mg 07/28/21 02:11 Ondansetron 4 Mg/2 Ml Inj IV Q8H PRN Nausea And Vomiting Senna/Docusate Sodium 1 tab 07/29/21 22:00 07/29/21 22:24 Sennosides/Docusate Sodium 8.6/50 Mg Tab FEEDTUBE 1 tab BID DEMIAN Administration Simple Syrup 15 ml 07/29/21 13:01 Simple Syrup 15 Ml FEEDTUBE PRN PRN Hypoglycemia Simple Syrup 30 ml 07/29/21 13:01 Simple Syrup 15 Ml FEEDTUBE PRN PRN Hypoglycemia Sodium Bicarbonate 325 mg 07/29/21 13:01 Sodium Bicarbonate 325 Mg Tab FEEDTUBE PRN PRN For Clogged Feeding Tube Sodium Chloride 10 ml 07/28/21 10:00 07/29/21 22:25 Sodium Chloride 0.9% 10 Ml Flush Syringe IV 10 ml BID DEMIAN Administration Sodium Chloride 10 ml 07/28/21 02:05 Sodium Chloride 0.9% 10 Ml Flush Syringe IV PRN PRN LINE FLUSH Nutrition/Malnutrition Assess - Dietary Evaluation Nutrition/Malnutrition Findings: Nutrition Notes Start: 07/28/21 14:4 4 Freq: Status: Active Protocol: Document 07/29/21 12:47 (Rec: 07/29/21 13:01 [id number]) Nutrition Notes Need for Assessment generated from: MD Order Initial or Follow up Assessment Current Diagnosis COPD,Diabetes,Hypertension, Respiratory Failure Other Pertinent Diagnosis pneu Current Diet Cardiac, Consistent CHO Labs/Tests BUN 23 BG 308 Pertinent Medications Solu Medrol Height 5 ft Weight 107 kg [place] Body Weight (kg) 45.45 BMI 46.0 Weight Status Morbidly Obese Subjective/Other Information MD consult for TF. Pt suffered code blue and is now on vent. Burn Absent Trauma Absent Current % PO Negligible Minimum of two criteria No #1 Nutrition Diagnosis Inadequate oral intake Etiology ARF As Evidenced by Signs and Symptoms pt on vent and unable to consume PO Is patient on ventilator? Yes Is Patient Ambulatory and/or Out of Bed No REE-([facility]-confined to bed) 1842.852 Kcal/Kg value to use for calculation 14 Approximate Energy Requirements Using 1498 kcal/Kg Calculation Used for Recommendations Kcal/kg Additional Notes Protein: (up to 2.5g/kg IBW) up to 134g Fluid: 1 ml/kcal or per MD Nutrition Intervention Change Diet Order: Start TF Nutrition Support: Vital AF 1.2 at 50 ml/hr Flush 75 ml q4h or per MD Kcal 1,440 Protein (gm) 90 Fluid (mL) 973 Goal #1 Meet at least 75% of protein and energy needs via TF Anticipated Discharge Needs: Unable to determine at this time Follow-Up By: 08/02/21 Additional Comments F/u: TF start and tolerance
[2021-07-30] MEDS: AZITHROMYCIN/NS 500 MG/250 ML 500 MG/250 ML BAG IV SCH (10:39)
[2021-07-30] MEDS: FAMOTIDINE 20 MG/2 ML INJ IV SCH ×2 (10:40→22:19)
[2021-07-30] MEDS: ENOXAPARIN 100 MG/1 ML INJ SUB-Q SCH ×2 (10:40→22:19)
[2021-07-30] MEDS: SENNOSIDES/DOCUSATE SODIUM 8.6/50 MG TAB FEEDTUBE SCH ×2 (10:40→22:20)
[2021-07-30] MEDS: fentaNYL DRIP Premix 2,000 MCG/100 ML BAG IV SCH ×2 (11:21→19:06)
--- NOTE | 2021-07-30 12:02 | Progress Note ---
Assessment and Plan Acute hypoxemic respiratory failure secondary Lung Mass (? Lung vs Breast CA) Acute COPD exacerbation Possible hypercapnia History of right breast cancer Leukocytosis DM II Hypertension Hyperlipidemia Tobacco use disorder (Discussed care plan at length with her & daughter in person and with her son & daughter over the phone) - will do inspection bronchoscopy once stable and hopefully get some washes (tentatively on sunday) - COVID test negative - follow 2D ECHO - follow dopplers - transitioned to AC mode - Daily SAT and SBT assessment as tolerated - continue to wean supplemental oxygen for target O2 sat's > 90% acutely - VAP bundle addressed - continue lung protective strategies - continue bronchodilators (GLADIS & LABA) with pulmonary hygiene per RT - wean per pulmonary driven protocols otherwise - continue accuchecks with glycemic control per SSI (While critically ill target blood glucose of 140-180 mg/dL; avoid hypoglycemia) - sedation prn for target RASS 0 to -1 - avoid nephrotoxins, renally dose all medications - continue to avoid benzodiazepine's, reduce the possibility of delirium - complete AB's per ID rec's - prn analgesia per CPOT score - Maintenance of sleep-wake cycle, avoid delirium - enteral nutritional support at goal rate as tolerated - G.I. & VTE prophylaxis - PT/OT/ROM exercises - continue mobility protocols for pressure ulcer prophylaxis - Monitor hemodynamics closely - continue other care per attending / other consultants - discharge planning ongoing concurrently COVID SPECIFIC INTERVENTIONS - test result pending .... Re-evaluate in am & prn CONDITION: CRITICAL PROGNOSIS: GUARDED CODE STATUS: FULL CODE The high probability of a clinically significant, sudden or life-threatening deterioration of the [respiratory, cardiovascular, oncological & neurologic] system(s) required my full and direct attention, intervention and personal management. The aggregate critical care time was [35] minutes without overlap. Time includes spent on; [x] Data Review and interpretation [x] Patient assessment and monitoring of vital signs [x] Documentation [x] Medication orders and management Subjective Date of service: 07/30/21 Principal diagnosis: Ac hypoxemic resp failure ; AE-COPD; H/O CA Breast; DM II; HTN Interval history: Patient is seen today for: Acute hypoxemic respiratory failure; AE-COPD; Possible hypercapnia; H/O CA Breast; DM II; HTN Seen and examined at bedside; 24hour events reviewed; nursing and respiratory care staff consulted; no adverse overnight events reported to me; resting in bed; remains on MVS; alert; denies acute chest pains or palpitations Objective Vital Signs - 12hr 07/30/21 07/30/21 07/30/21 00:10 00:20 00:27 Temperature Pulse Rate 116 H 115 H 117 H Pulse Rate [ Anterior Bilateral] Respiratory 30 H 30 H Rate Respiratory Rate [Anterior Bilateral] Blood Pressure 112/70 108/73 115/77 O2 Sat by Pulse 100 100 100 Oximetry 07/30/21 07/30/21 07/30/21 00:30 00:40 00:50 Temperature Pulse Rate 114 H 115 H 113 H Pulse Rate [ Anterior Bilateral] Respiratory 30 H 30 H 30 H Rate Respiratory Rate [Anterior Bilateral] Blood Pressure 102/74 102/74 102/74 O2 Sat by Pulse 100 100 100 Oximetry 07/30/21 07/30/21 07/30/21 01:00 01:10 01:20 Temperature Pulse Rate 110 H 110 H 111 H Pulse Rate [ Anterior Bilateral] Respiratory 26 H 30 H 30 H Rate Respiratory Rate [Anterior Bilateral] Blood Pressure 102/74 118/70 118/70 O2 Sat by Pulse 100 100 100 Oximetry 07/30/21 07/30/21 07/30/21 01:30 01:40 01:50 Temperature Pulse Rate 110 H 109 H 108 H Pulse Rate [ Anterior Bilateral] Respiratory 27 H 30 H 30 H Rate Respiratory Rate [Anterior Bilateral] Blood Pressure 118/70 108/79 108/79 O2 Sat by Pulse 100 100 100 Oximetry 07/30/21 07/30/21 07/30/21 02:00 02:10 02:20 Temperature Pulse Rate 109 H 108 H 107 H Pulse Rate [ Anterior Bilateral] Respiratory 30 H 31 H 30 H Rate Respiratory Rate [Anterior Bilateral] Blood Pressure 110/80 110/80 110/80 O2 Sat by Pulse 100 100 100 Oximetry 07/30/21 07/30/21 07/30/21 02:30 02:40 02:50 Temperature Pulse Rate 109 H 107 H 109 H Pulse Rate [ Anterior Bilateral] Respiratory 25 H 30 H 22 Rate Respiratory Rate [Anterior Bilateral] Blood Pressure 119/77 119/77 119/77 O2 Sat by Pulse 100 100 99 Oximetry 07/30/21 07/30/21 07/30/21 03:00 03:10 03:20 Temperature Pulse Rate 109 H 108 H 109 H Pulse Rate [ Anterior Bilateral] Respiratory 30 H 30 H 23 Rate Respiratory Rate [Anterior Bilateral] Blood Pressure 121/86 121/86 121/86 O2 Sat by Pulse 100 100 100 Oximetry 07/30/21 07/30/21 07/30/21 03:30 03:40 03:50 Temperature Pulse Rate 108 H 110 H 109 H Pulse Rate [ Anterior Bilateral] Respiratory 30 H 30 H 26 H Rate Respiratory Rate [Anterior Bilateral] Blood Pressure 120/93 120/93 120/93 O2 Sat by Pulse 100 100 100 Oximetry 07/30/21 07/30/21 07/30/21 03:52 04:00 04:10 Temperature 99.9 F H Pulse Rate 108 H 108 H Pulse Rate [ Anterior Bilateral] Respiratory 30 H 30 H Rate Respiratory Rate [Anterior Bilateral] Blood Pressure 120/93 120/93 O2 Sat by Pulse 100 100 Oximetry 07/30/21 07/30/21 07/30/21 04:20 04:30 04:40 Temperature Pulse Rate 107 H 108 H 111 H Pulse Rate [ Anterior Bilateral] Respiratory 30 H 30 H 28 H Rate Respiratory Rate [Anterior Bilateral] Blood Pressure 120/93 120/93 120/93 O2 Sat by Pulse 100 100 100 Oximetry 07/30/21 07/30/21 07/30/21 04:50 05:00 05:10 Temperature Pulse Rate 106 H 105 H 105 H Pulse Rate [ Anterior Bilateral] Respiratory 30 H 30 H 30 H Rate Respiratory Rate [Anterior Bilateral] Blood Pressure 120/93 120/93 110/79 O2 Sat by Pulse 100 100 100 Oximetry 07/30/21 07/30/21 07/30/21 05:20 05:30 05:40 Temperature Pulse Rate 104 H Pulse Rate [ Anterior Bilateral] Respiratory 26 H Rate Respiratory Rate [Anterior Bilateral] Blood Pressure 110/79 110/86 110/86 O2 Sat by Pulse 100 100 100 Oximetry 07/30/21 07/30/21 07/30/21 05:50 06:00 06:06 Temperature Pulse Rate 102 H 99 H Pulse Rate [ Anterior Bilateral] Respiratory Rate Respiratory Rate [Anterior Bilateral] Blood Pressure 110/86 116/83 116/83 O2 Sat by Pulse 100 100 100 Oximetry 07/30/21 07/30/21 07/30/21 06:10 06:20 06:30 Temperature Pulse Rate 99 H 101 H 101 H Pulse Rate [ Anterior Bilateral] Respiratory Rate Respiratory Rate [Anterior Bilateral] Blood Pressure 116/83 116/83 113/80 O2 Sat by Pulse 99 Oximetry 07/30/21 07/30/21 07/30/21 06:40 06:50 07:00 Temperature Pulse Rate 100 H 101 H 98 H Pulse Rate [ Anterior Bilateral] Respiratory Rate Respiratory Rate [Anterior Bilateral] Blood Pressure 113/80 113/80 128/93 O2 Sat by Pulse Oximetry 07/30/21 07/30/21 07/30/21 07:29 07:30 07:40 Temperature Pulse Rate 96 H 97 H 97 H Pulse Rate [ Anterior Bilateral] Respiratory 15 30 H 30 H Rate Respiratory Rate [Anterior Bilateral] Blood Pressure 128/93 121/73 121/73 O2 Sat by Pulse Oximetry 07/30/21 07/30/21 07/30/21 07:42 07:45 07:50 Temperature Pulse Rate 96 H 90 Pulse Rate [ 98 H Anterior Bilateral] Respiratory 24 Rate Respiratory 28 H Rate [Anterior Bilateral] Blood Pressure 121/73 121/73 O2 Sat by Pulse 100 100 Oximetry 07/30/21 07/30/21 07/30/21 08:00 08:10 08:21 Temperature 98.4 F Pulse Rate 92 H 91 H 87 Pulse Rate [ Anterior Bilateral] Respiratory 24 14 17 Rate Respiratory Rate [Anterior Bilateral] Blood Pressure 143/89 143/89 O2 Sat by Pulse 100 99 99 Oximetry 07/30/21 07/30/21 07/30/21 08:30 08:32 08:41 Temperature Pulse Rate 88 88 92 H Pulse Rate [ Anterior Bilateral] Respiratory 22 14 Rate Respiratory Rate [Anterior Bilateral] Blood Pressure 151/76 143/89 151/76 O2 Sat by Pulse 98 97 97 Oximetry 07/30/21 07/30/21 07/30/21 08:51 09:00 09:11 Temperature Pulse Rate 86 88 85 Pulse Rate [ Anterior Bilateral] Respiratory 24 23 22 Rate Respiratory Rate [Anterior Bilateral] Blood Pressure 151/76 149/79 149/79 O2 Sat by Pulse 98 99 99 Oximetry 07/30/21 07/30/21 07/30/21 09:21 09:30 09:41 Temperature Pulse Rate 87 85 88 Pulse Rate [ Anterior Bilateral] Respiratory 24 24 24 Rate Respiratory Rate [Anterior Bilateral] Blood Pressure 149/79 142/77 149/79 O2 Sat by Pulse 99 99 100 Oximetry 07/30/21 07/30/2121 09:51 10:00 10:11 Temperature Pulse Rate 85 86 90 Pulse Rate [ Anterior Bilateral] Respiratory 24 24 13 Rate Respiratory Rate [Anterior Bilateral] Blood Pressure 149/79 182/95 142/77 O2 Sat by Pulse 99 99 Oximetry 07/30/21 07/30/21 07/30/21 10:21 10:30 10:41 Temperature Pulse Rate 84 85 83 Pulse Rate [ Anterior Bilateral] Respiratory 24 15 24 Rate Respiratory Rate [Anterior Bilateral] Blood Pressure 142/77 159/84 159/84 O2 Sat by Pulse Oximetry 07/30/21 07/30/21 07/30/21 10:51 11:00 11:10 Temperature Pulse Rate 82 83 80 Pulse Rate [ Anterior Bilateral] Respiratory 24 21 Rate Respiratory Rate [Anterior Bilateral] Blood Pressure 159/84 154/88 154/88 O2 Sat by Pulse 99 Oximetry 07/30/21 07/30/21 07/30/21 11:11 11:21 11:31 Temperature Pulse Rate 87 81 81 Pulse Rate [ Anterior Bilateral] Respiratory 21 24 24 Rate Respiratory Rate [Anterior Bilateral] Blood Pressure 154/88 154/88 154/88 O2 Sat by Pulse 99 99 Oximetry 07/30/21 07/30/21 11:41 11:51 Temperature Pulse Rate 99 H 95 H Pulse Rate [ Anterior Bilateral] Respiratory 20 24 Rate Respiratory Rate [Anterior Bilateral] Blood Pressure 154/88 154/88 O2 Sat by Pulse 99 100 Oximetry Constitutional: appears uncomfortable, other (eldely obese female with mildy increased respiratory effort at rest on MVS) Eyes: non-icteric ENT: oropharynx moist, other (ETT 24 cm [place]) Neck: supple, no lymphadenopathy, no JVD Effort: mildly labored Ascultation: Bilateral: wheezes (central), rhonchi Percussion: Bilateral: not dull Cardiovascular: regular rate and rhythm Gastrointestinal: normoactive bowel sounds, soft, non-tender, non-distended Integumentary: normal Extremities: no cyanosis, no edema, pulses normal, no ischemia or petechiae Neurologic: normal mental status, non-focal exam, pupils equal and round, CN II- XII normal Psychiatric: mood appropriate, affect normal CBC and BMP: 07/31/21 04:45 07/31/21 04:45 ABG, PT/INR, D-dimer: ABG ABG pH 7.480 (7.320-7.450) H 07/30/21 06:01 POC ABG pCO2 23.6 mmHg (32.0-48.0) L 07/30/21 06:01 POC ABG pO2 280.0 mmHg (83-108) H 07/30/21 06:01 POC ABG HCO3 17.2 07/30/21 06:01 ABG O2 Saturation 99.6 (0-100) 07/30/21 06:01 PT/INR, D-dimer PT 14.0 Sec. (12.2-14.9) 07/29/21 04:44 INR 1.03 (0.87-1.13) 07/29/21 04:44 D-Dimer 852.47 ng/mlDDU (0-234) H 07/29/21 07:17 Abnormal lab findings: Abnormal Labs 07/27/21 07/27/21 07/27/21 22:57 22:57 22:57 WBC 20.3 H Hct RDW Seg Neuts % (Manual) 89.0 H Lymphocytes % (Manual) 9.0 L Seg Neutrophils # Man 18.1 H Monocytes # (Manual) D-Dimer ABG pH POC ABG pCO2 POC ABG pO2 ABG Oxyhemoglobin ABG Sodium ABG Potassium ABG Glucose Carboxyhemoglobin Potassium 3.5 L Chloride 96.9 L Carbon Dioxide 20 L BUN 19 H Glucose 204 H POC Glucose Lactic Acid 7.20 H* AST 98 H ALT 90 H Arterial Blood Glucose Arterial Blood Ionized Calcium 07/28/21 07/28/21 07/28/21 01:31 07:49 10:00 WBC Hct RDW Seg Neuts % (Manual) Lymphocytes % (Manual) Seg Neutrophils # Man Monocytes # (Manual) D-Dimer ABG pH POC ABG pCO2 POC ABG pO2 ABG Oxyhemoglobin ABG Sodium ABG Potassium ABG Glucose Carboxyhemoglobin Potassium Chloride Carbon Dioxide BUN Glucose POC Glucose 194 H Lactic Acid 6.90 H* 6.70 H* AST ALT Arterial Blood Glucose Arterial Blood Ionized Calcium 07/28/21 07/28/21 07/28/21 12:41 13:21 16:21 WBC Hct RDW Seg Neuts % (Manual) Lymphocytes % (Manual) Seg Neutrophils # Man Monocytes # (Manual) D-Dimer ABG pH POC ABG pCO2 POC ABG pO2 ABG Oxyhemoglobin ABG Sodium ABG Potassium ABG Glucose Carboxyhemoglobin Potassium Chloride Carbon Dioxide BUN Glucose POC Glucose 159 H 155 H Lactic Acid 6.10 H* AST ALT Arterial Blood Glucose Arterial Blood Ionized Calcium 07/28/21 07/29/21 07/29/21 22:03 04:44 04:44 WBC 17.0 H Hct RDW Seg Neuts % (Manual) 82.0 H Lymphocytes % (Manual) 11.0 L Seg Neutrophils # Man 13.9 H Monocytes # (Manual) 1.0 H D-Dimer ABG pH POC ABG pCO2 POC ABG pO2 ABG Oxyhemoglobin ABG Sodium ABG Potassium ABG Glucose Carboxyhemoglobin Potassium Chloride Carbon Dioxide BUN 23 H Glucose 196 H POC Glucose 187 H Lactic Acid AST ALT Arterial Blood Glucose Arterial Blood Ionized Calcium 07/29/21 07/29/21 07/29/21 06:56 07:17 07:17 WBC 26.1 H Hct 43.3 H RDW 16.0 H Seg Neuts % (Manual) 80.0 H Lymphocytes % (Manual) Seg Neutrophils # Man 20.9 H Monocytes # (Manual) D-Dimer ABG pH POC ABG pCO2 POC ABG pO2 ABG Oxyhemoglobin ABG Sodium ABG Potassium ABG Glucose Carboxyhemoglobin Potassium Chloride Carbon Dioxide 20 L D BUN 23 H Glucose 308 H POC Glucose 165 H Lactic Acid AST ALT Arterial Blood Glucose Arterial Blood Ionized Calcium 07/29/21 07/29/21 07/29/21 07:17 09:16 10:30 WBC Hct RDW Seg Neuts % (Manual) Lymphocytes % (Manual) Seg Neutrophils # Man Monocytes # (Manual) D-Dimer 852.47 H ABG pH 7.236 L POC ABG pCO2 56.0 H POC ABG pO2 266.4 H ABG Oxyhemoglobin 99.1 H ABG Sodium 132.3 L ABG Potassium 4.9 H ABG Glucose 202 H Carboxyhemoglobin 0.2 L Potassium Chloride Carbon Dioxide BUN Glucose POC Glucose 271 H Lactic Acid AST ALT Arterial Blood Glucose 202 H Arterial Blood Ionized Calcium 07/29/21 07/29/21 07/30/21 17:54 23:32 05:08 WBC Hct RDW Seg Neuts % (Manual) Lymphocytes % (Manual) Seg Neutrophils # Man Monocytes # (Manual) D-Dimer ABG pH POC ABG pCO2 POC ABG pO2 ABG Oxyhemoglobin ABG Sodium ABG Potassium ABG Glucose Carboxyhemoglobin Potassium Chloride Carbon Dioxide BUN Glucose POC Glucose 168 H 205 H 214 H Lactic Acid AST ALT Arterial Blood Glucose Arterial Blood Ionized Calcium 07/30/21 07/30/21 06:01 11:32 WBC Hct RDW Seg Neuts % (Manual) Lymphocytes % (Manual) Seg Neutrophils # Man Monocytes # (Manual) D-Dimer ABG pH 7.480 H POC ABG pCO2 23.6 L POC ABG pO2 280.0 H ABG Oxyhemoglobin 99.3 H ABG Sodium 133.7 L ABG Potassium ABG Glucose 232 H Carboxyhemoglobin 0 L Potassium Chloride Carbon Dioxide BUN Glucose POC Glucose 207 H Lactic Acid AST ALT Arterial Blood Glucose 232 H Arterial Blood Ionized Calcium 4.4 L Chest x-ray: image reviewed Allied health notes reviewed: nursing
[2021-07-30] MEDS: MIDAZOLAM 100 MG in SODIUM CHLORIDE 0.9% 80 ML IV SCH (15:04)
[2021-07-31] MEDS: fentaNYL DRIP Premix 2,000 MCG/100 ML BAG IV SCH ×5 (00:58→21:25)
[2021-07-31 05:03] LABS: Hematocrit 34.9 % (30.3-42.9); Hemoglobin 11.7 gm/dl (10.1-14.3); Mean Corpuscular HGB Conc 34 % (30-34); Mean Corpuscular Volume 86 fl (79-97); Platelet Count 249 K/mm3 (140-440); Red Blood Count 4.05 M/mm3 (3.65-5.03); Red Cell Distribution Width 15.5 % (13.2-15.2)
--- NOTE | 2021-07-31 05:11 | XRay Report ---
CHEST 1 VIEW INDICATION: follow up respiratory failure. COMPARISON: One day prior. FINDINGS: Support devices: Unchanged. Heart: Stable. Lungs/Pleura: Bilateral pulmonary opacities have worsened, particularly on the right. No pneumothorax . IMPRESSION: 1. Worsening pulmonary opacities. Signer Name: Elvis Farrell MD Signed: 07/31/2021 5:07 AM Workstation Name: [id number]
[2021-07-31 05:37] LABS: Calcium 8.5 mg/dL (8.4-10.2)
[2021-07-31] MEDS: methylPREDNISolone Sod Succinate 40 MG/1 ML INJ IV SCH ×3 (07:16→21:28)
[2021-07-31] MEDS: INSULIN LISPRO 100 UNIT/ML SUB-Q SCH ×4 (07:16→18:28)
[2021-07-31] MEDS: IPRATROPIUM/ALBUTEROL SULFATE 3 ML AMPUL.NEB IH SCH ×3 (08:10→19:01)
[2021-07-31] MEDS: ARFORMOTEROL 15 MCG/2 ML NEBU IH SCH ×2 (08:10→19:01)
[2021-07-31] MEDS: BUDESONIDE 0.5 MG/2 ML NEBU IH SCH ×2 (08:10→19:01)
--- NOTE | 2021-07-31 09:40 | Progress Note ---
Assessment and Plan Assessment and plan: Acute hypoxic respiratory failure Acute COPD exacerbation Right upper lobe postobstructive pneumonia Sepsis. 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 Mediastinal lymphadenopathy. Left lower extremity DVT. 07/29/2021. Patient seen this morning with Shabbir-Chavira respiration/agonal breathing. RENEE ABREU was called and patient was intubated and placed on mechanical ventilation. Patient transferred to ICU. Critical care/pulmonary consulted. Patient currently with AC mode rate of 30, FiO2 100%, PEEP of 12. Continue IV antibiotics. Consult ID and oncology for further evaluation. Patient will likely need bronchoscopy for further evaluation of the lung mass. Doppler ultrasound revealedLLE DVT. Start anticoagulation. 07/30/2021. Patient appears much improved and more responsive this morning. Patient currently with AC mode ventilation rate of 24, tidal volume 450, PEEP of 8 and FiO2 35%. Spontaneous breathing trials with possible extubation today per pulmonary. Bronchoscopy per pulmonary. Continue Lovenox twice daily for DVT. Continue IV antibiotics for sepsis/pneumonia. ID consultation pending. Follow- up CEA, CA 15-3, [place] 2729. 07/31/2021. Echocardiogram reveals left ventricular size and function are normal. EF 50 to 55% with mild diastolic dysfunction. Patient currently with CPAP/PSV trial 11/02. Anticipate extubation today per pulmonary. Bronchoscopy per pulmonary. Continue Lovenox twice daily for DVT. Continue IV antibiotics for sepsis/pneumonia. ID consultation pending. Follow-up CEA, CA 15-3, [place] 2729. The high probability of a clinically significant, sudden or life threatening deterioration of the [respiratory] system(s) required my full and direct attention, intervention and personal management. The aggregate critical care time was [32] minutes. This time is in addition to time spent performing reported procedures but includes the following: [x] Data Review and interpretation [x] Patient assessment and monitoring of vital signs [x] Documentation [x] Medication orders and management History Interval history: Patient remains intubated on mechanical ventilation. Hospitalist Physical - Constitutional Vitals: Temp Pulse Resp BP Pulse Ox 101.5 F H 73 20 130/70 90 07/31/21 07:26 07/31/21 08:10 07/31/21 08:10 07/31/21 08:10 07/31/21 08:20 General appearance: Present: no acute distress, well-nourished - EENT Eyes: Present: PERRL, EOM intact ENT: hearing intact, clear oral mucosa, dentition normal - Neck Neck: Present: supple, normal ROM - Respiratory Respiratory effort: normal Respiratory: bilateral: CTA - Cardiovascular Rhythm: regular Heart Sounds: Present: S1 & S2. Absent: gallop, rub - Extremities Extremities: no ischemia, No edema, Full ROM - Abdominal General gastrointestinal: soft, non-tender, non-distended, normal bowel sounds - Integumentary Integumentary: Present: clear, warm, dry - Neurologic Neurologic: CNII-XII intact, moves all extremities Results - Labs CBC & Chem 7: 07/31/21 04:45 07/31/21 04:45 Labs: Laboratory Last Values WBC 15.0 K/mm3 (4.5-11.0) H 07/31/21 04:45 RBC 4.05 M/mm3 (3.65-5.03) 07/31/21 04:45 Hgb 11.7 gm/dl (10.1-14.3) 07/31/21 04:45 Hct 34.9 % (30.3-42.9) D 07/31/21 04:45 MCV 86 fl (79-97) 07/31/21 04:45 MCH 29 pg (28-32) 07/31/21 04:45 MCHC 34 % (30-34) 07/31/21 04:45 RDW 15.5 % (13.2-15.2) H 07/31/21 04:45 Plt Count 249 K/mm3 (140-440) 07/31/21 04:45 Add Manual Diff Complete 07/29/21 07:17 Total Counted 100 07/29/21 07:17 Seg Neutrophils % Casing Inspector 07/31/21 04:45 Seg Neuts % (Manual) 80.0 % (40.0-70.0) H 07/29/21 07:17 Band Neutrophils % 1.0 % 07/29/21 07:17 Lymphocytes % (Manual) 17.0 % (13.4-35.0) 07/29/21 07:17 Monocytes % (Manual) 6.0 % (0.0-7.3) 07/29/21 04:44 Metamyelocytes % 1.0 % 07/29/21 07:17 Myelocytes % 1.0 % 07/29/21 07:17 Nucleated RBC % Not Reportable 07/29/21 07:17 Seg Neutrophils # Man 20.9 K/mm3 (1.8-7.7) H 07/29/21 07:17 Band Neutrophils # 0.3 K/mm3 07/29/21 07:17 Lymphocytes # (Manual) 4.4 K/mm3 (1.2-5.4) 07/29/21 07:17 Abs React Lymphs (Man) 0.0 K/mm3 07/29/21 07:17 Monocytes # (Manual) 0.0 K/mm3 (0.0-0.8) 07/29/21 07:17 Eosinophils # (Manual) 0.0 K/mm3 (0.0-0.4) 07/29/21 07:17 Basophils # (Manual) 0.0 K/mm3 (0.0-0.1) 07/29/21 07:17 Metamyelocytes # 0.3 K/mm3 07/29/21 07:17 Myelocytes # 0.3 K/mm3 07/29/21 07:17 Promyelocytes # 0.0 K/mm3 07/29/21 07:17 Blast Cells # 0.0 K/mm3 07/29/21 07:17 WBC Morphology Not Reportable 07/29/21 07:17 Hypersegmented Neuts Not Reportable 07/29/21 07:17 Hyposegmented Neuts Not Reportable 07/29/21 07:17 Hypogranular Neuts Not Reportable 07/29/21 07:17 Smudge Cells Not Reportable 07/29/21 07:17 Toxic Granulation Not Reportable 07/29/21 07:17 Toxic Vacuolation Not Reportable 07/29/21 07:17 Dohle Bodies Not Reportable 07/29/21 07:17 Pelger-Huet Anomaly Not Reportable 07/29/21 07:17 Beryl Rods Not Reportable 07/29/21 07:17 Platelet Estimate Consistent w auto 07/29/21 07:17 Clumped Platelets Not Reportable 07/29/21 07:17 Plt Clumps, EDTA Not Reportable 07/29/21 07:17 Large Platelets Not Reportable 07/29/21 07:17 Giant Platelets Not Reportable 07/29/21 07:17 Platelet Satelliting Not Reportable 07/29/21 07:17 Plt Morphology Comment Not Reportable 07/29/21 07:17 RBC Morphology Normal 07/29/21 07:17 Dimorphic RBCs Not Reportable 07/29/21 07:17 Polychromasia Not Reportable 07/29/21 07:17 Hypochromasia Not Reportable 07/29/21 07:17 Poikilocytosis Not Reportable 07/29/21 07:17 Anisocytosis Not Reportable 07/29/21 07:17 Microcytosis Not Reportable 07/29/21 07:17 Macrocytosis Not Reportable 07/29/21 07:17 Spherocytes Not Reportable 07/29/21 07:17 Pappenheimer Bodies Not Reportable 07/29/21 07:17 Sickle Cells Not Reportable 07/29/21 07:17 Target Cells Not Reportable 07/29/21 07:17 Tear Drop Cells Not Reportable 07/29/21 07:17 Ovalocytes Not Reportable 07/29/21 07:17 Helmet Cells Not Reportable 07/29/21 07:17 [place] Bodies Not Reportable 07/29/21 07:17 [place] Rings Not Reportable 07/29/21 07:17 [place] Cells Not Reportable 07/29/21 07:17 Bite Cells Not Reportable 07/29/21 07:17 Crenated Cell Not Reportable 07/29/21 07:17 Elliptocytes Not Reportable 07/29/21 07:17 Acanthocytes (Spur) Not Reportable 07/29/21 07:17 Rouleaux Not Reportable 07/29/21 07:17 Hemoglobin C Crystals Not Reportable 07/29/21 07:17 Schistocytes Not Reportable 07/29/21 07:17 Malaria parasites Not Reportable 07/29/21 07:17 [place] Bodies Not Reportable 07/29/21 07:17 Hem Pathologist Commnt No 07/29/21 07:17 PT 14.0 Sec. (12.2-14.9) 07/29/21 04:44 INR 1.03 (0.87-1.13) 07/29/21 04:44 D-Dimer 852.47 ng/mlDDU (0-234) H 07/29/21 07:17 ABG pH 7.481 (7.320-7.450) H 07/31/21 03:34 POC ABG pCO2 31.8 mmHg (32.0-48.0) L 07/31/21 03:34 POC ABG pO2 104.5 mmHg (83-108) 07/31/21 03:34 POC ABG HCO3 23.2 07/31/21 03:34 ABG O2 Saturation 97.9 (0-100) 07/31/21 03:34 POC ABG Base Excess 0.4 07/31/21 03:34 ABG Hemoglobin 12.7 (12.0-17.5) 07/31/21 03:34 ABG Oxyhemoglobin 97.5 (94-98) 07/31/21 03:34 ABG Methemoglobin 0.3 (0.0-1.5) 07/31/21 03:34 ABG Sodium 135.2 mmol/L (136.0-145.0) L 07/31/21 03:34 ABG Potassium 3.3 mmol/L (3.40-4.50) L 07/31/21 03:34 ABG Chloride 103.0 mmol/L (98-107) 07/31/21 03:34 ABG Glucose 188 mg/dL (65-95) H 07/31/21 03:34 Carboxyhemoglobin 0.1 (0.5-1.5) L 07/31/21 03:34 FiO2 % 35.0 07/31/21 03:34 Sodium 142 mmol/L (137-145) 07/31/21 04:45 Potassium 3.4 mmol/L (3.6-5.0) L 07/31/21 04:45 Chloride 101.9 mmol/L (98-107) 07/31/21 04:45 Carbon Dioxide 25 mmol/L (22-30) 07/31/21 04:45 Anion Gap 19 mmol/L 07/31/21 04:45 BUN 61 mg/dL (7-17) H 07/31/21 04:45 Creatinine 2.6 mg/dL (0.6-1.2) H D 07/31/21 04:45 Estimated GFR 22 ml/min 07/31/21 04:45 BUN/Creatinine Ratio 23 % 07/31/21 04:45 Glucose 176 mg/dL (65-100) H 07/31/21 04:45 POC Glucose 195 mg/dL (70-105) H 07/31/21 04:45 Lactic Acid 6.10 mmol/L (0.7-2.0) H* 07/28/21 13:21 Calcium 8.5 mg/dL (8.4-10.2) 07/31/21 04:45 Total Bilirubin 0.30 mg/dL (0.1-1.2) 07/27/21 22:57 AST 98 units/L (5-40) H 07/27/21 22:57 ALT 90 units/L (7-56) H 07/27/21 22:57 Alkaline Phosphatase 98 units/L (35-129) 07/27/21 22:57 Total Protein 8.0 g/dL (6.3-8.2) 07/27/21 22:57 Albumin 4.2 g/dL (3.9-5) 07/27/21 22:57 Albumin/Globulin Ratio 1.1 % 07/27/21 22:57 Arterial Blood Glucose 188 mg/dL (65-95) H 07/31/21 03:34 Arterial Blood Ionized Calcium 4.4 mg/dL (4.6-5.3) L 07/31/21 03:34 Coronavirus (PCR) Negative (Negative) 07/29/21 07:58 Microbiology: Microbiology 07/27/21 22:48 Peripheral/Venous Blood Culture - Preliminary NO GROWTH AFTER 72 HOURS 07/27/21 22:57 Peripheral/Venous Blood Culture - Preliminary NO GROWTH AFTER 72 HOURS 07/29/21 11:12 Tracheal Aspirate Sputum Culture - Preliminary Elizabeth/IV: Voiding Method Indwelling Catheter Active Medications - Current Medications Current Medications: Generic Name Dose Route Start Last Admin Trade Name Freq PRN Reason Stop Dose Admin Acetaminophen 650 mg 07/28/21 02:11 Acetaminophen 325 Mg Tab PO Q6H PRN Pain MILD(1-3)/Fever >100.5/GARCIA Albuterol/Ipratropium 1 ampul 07/28/21 14:00 07/31/21 08:10 Ipratropium/Albuterol Sulfate 3 Ml Ampul.Neb IH 1 ampul TID DEMIAN Administration Lipase/Protease/Amylase 1 each 07/29/21 13:01 Lipase 10,500/Protease 25,000/Amylase 43,750 (Units) Dr Cap FEEDTUBE PRN PRN For Clogged Feeding Tube Arformoterol Tartrate 15 mcg 07/28/21 20:00 07/31/21 08:10 Arformoterol 15 Mcg/2 Ml Nebu IH 15 mcg Q12HRT DEMIAN Administration Budesonide 0.5 mg 07/28/21 20:00 07/31/21 08:10 Budesonide 0.5 Mg/2 Ml Nebu IH 0.5 mg Q12HRT DEMIAN Administration Dextrose 50 ml 07/28/21 02:11 Dextrose 50% In Water (25gm) 50 Ml Syringe IV Q30MIN PRN Hypoglycemia Protocol Enoxaparin Sodium 100 mg 07/29/21 13:00 07/30/21 22:19 Enoxaparin 100 Mg/1 Ml Inj SUB-Q 100 mg Q12HR DEMIAN Administration Protocol Famotidine 20 mg 07/29/21 22:00 07/30/21 22:19 Famotidine 20 Mg/2 Ml Inj IV 20 mg BID DEMIAN Administration Fentanyl 50 mcg 07/29/21 10:42 Fentanyl 100 Mcg/2 Ml Inj IV Q10MIN PRN ANALGESIA Hydralazine HCl 10 mg 07/30/21 14:52 Hydralazine 20 Mg/1 Ml Inj IV Q6H PRN SBP > 165 Hydrophilic Ointment 1 applic 07/29/21 10:42 Lip Therapy Vaseline TP Q2HR PRN Dry Lips Ceftriaxone Sodium 2 gm in 100 mls @ 200 mls/hr 07/28/21 06:00 07/30/21 06:11 Rocephin/Ns 2 Gm/100 Ml IV 08/01/21 06:29 200 mls/hr Q24H DEMIAN Administration Protocol Azithromycin 500 mg in 250 mls @ 250 mls/hr 07/28/21 07:00 07/30/21 10:39 Zithromax/Ns IV 08/01/21 07:59 250 mls/hr Q24H DEMIAN Administration Fentanyl Citrate 2,000 mcg in 100 mls @ 5.35 mls/hr 07/29/21 11:00 07/31/21 07:17 Fentanyl Drip Premix IV 3 mcg/kg/hr TITR DEMIAN 16.05 mls/hr Administration Protocol 1 MCG/KG/HR Midazolam HCl 100 mg/ Sodium 100 mls @ 2 mls/hr 07/29/21 11:00 07/30/21 15:04 Chloride IV 2 mg/hr TITR DEMIAN 2 mls/hr Administration Protocol 2 MG/HR Norepinephrine 4 mg in 250 mls @ 7.5 mls/hr 07/29/21 21:00 Levophed Drip 4 Mg/Ns 250 Ml IV TITR DEMIAN Protocol 2 MCG/MIN Insulin Human Lispro 0 unit 07/29/21 12:00 07/31/21 07:17 Insulin Lispro 100 Unit/Ml SUB-Q 2 unit Q6HR DEMIAN Administration Protocol Magnesium Hydroxide 30 ml 07/28/21 02:11 Magnesium Hydroxide (Mom) Oral Liqd Udc PO Q4H PRN Constipation Methylprednisolone Sodium Succinate 40 mg 07/28/21 06:00 07/31/21 07:16 Methylprednisolone Sod Succinate 40 Mg/1 Ml Inj IV 40 mg Q8HR DEMIAN Administration Midazolam HCl 2 mg 07/29/21 10:42 Midazolam 2 Mg/2 Ml Inj IV Q10MIN PRN Sedation Multi-Ingred Cream/Lotion/Oil/Oint 1 applic 07/29/21 10:42 Mineral Oil/Petrolatum, White Ophth Oint 3.5 Gm OU Q4HR PRN Dry Eye(s) Ondansetron HCl 4 mg 07/28/21 02:11 Ondansetron 4 Mg/2 Ml Inj IV Q8H PRN Nausea And Vomiting Senna/Docusate Sodium 1 tab 07/29/21 22:00 07/30/21 22:20 Sennosides/Docusate Sodium 8.6/50 Mg Tab FEEDTUBE 1 tab BID DEMIAN Administration Simple Syrup 15 ml 07/29/21 13:01 Simple Syrup 15 Ml FEEDTUBE PRN PRN Hypoglycemia Simple Syrup 30 ml 07/29/21 13:01 Simple Syrup 15 Ml FEEDTUBE PRN PRN Hypoglycemia Sodium Bicarbonate 325 mg 07/29/21 13:01 Sodium Bicarbonate 325 Mg Tab FEEDTUBE PRN PRN For Clogged Feeding Tube Sodium Chloride 10 ml 07/28/21 10:00 07/30/21 22:20 Sodium Chloride 0.9% 10 Ml Flush Syringe IV 10 ml BID DEMIAN Administration Sodium Chloride 10 ml 07/28/21 02:05 Sodium Chloride 0.9% 10 Ml Flush Syringe IV PRN PRN LINE FLUSH Nutrition/Malnutrition Assess - Dietary Evaluation Nutrition/Malnutrition Findings: Nutrition Notes Start: 07/28/21 14:44 Freq: Status: Active Protocol: Document 07/29/21 12:47 JACKIE (Rec: 07/29/21 13:01 JACKIE [email or web address]) Nutrition Notes Need for Assessment generated from: MD Order Initial or Follow up Assessment Current Diagnosis COPD,Diabetes,Hypertension, Respiratory Failure Other Pertinent Diagnosis pneu Current Diet Cardiac, Consistent CHO Labs/Tests BUN 23 BG 308 Pertinent Medications Solu Medrol Height 5 ft Weight 107 kg [place] Body Weight (kg) 45.45 BMI 46.0 Weight Status Morbidly Obese Subjective/Other Information MD consult for TF. Pt suffered code blue and is now on vent. Burn Absent Trauma Absent Current % PO Negligible Minimum of two criteria No #1 Nutrition Diagnosis Inadequate oral intake Etiology ARF As Evidenced by Signs and Symptoms pt on vent and unable to consume PO Is patient on ventilator? Yes Is Patient Ambulatory and/or Out of Bed No REE-([place]-confined to bed) 1842.852 Kcal/Kg value to use for calculation 14 Approximate Energy Requirements Using 1498 kcal/Kg Calculation Used for Recommendations Kcal/kg Additional Notes Protein: (up to 2.5g/kg IBW) up to 134g Fluid: 1 ml/kcal or per MD Nutrition Intervention Change Diet Order: Start TF Nutrition Support: Vital AF 1.2 at 50 ml/hr Flush 75 ml q4h or per MD Kcal 1,440 Protein (gm) 90 Fluid (mL) 973 Goal #1 Meet at least 75% of protein and energy needs via TF Anticipated Discharge Needs: Unable to determine at this time Follow-Up By: 08/02/21 Additional Comments F/u: TF start and tolerance
[2021-07-31] MEDS: cefTRIAXone/NS 2 GM/100 ML 2 GM/100 ML BAG IV SCH (09:41)
[2021-07-31] MEDS: AZITHROMYCIN/NS 500 MG/250 ML 500 MG/250 ML BAG IV SCH (09:41)
[2021-07-31] MEDS: SENNOSIDES/DOCUSATE SODIUM 8.6/50 MG TAB FEEDTUBE SCH ×2 (09:42→21:28)
[2021-07-31] MEDS: FAMOTIDINE 20 MG/2 ML INJ IV SCH ×2 (09:42→21:28)
[2021-07-31] MEDS: ENOXAPARIN 100 MG/1 ML INJ SUB-Q SCH ×2 (09:42→21:27)
[2021-07-31 10:21] LABS: Band Neutrophils # (Manual) 0.2 K/mm3; Myelocytes # (Manual) 0.2 K/mm3; Platelet Estimate Consistent w Auto; RBC Morphology Normal; Total Cells Counted 100
--- NOTE | 2021-07-31 11:11 | Hem/Onc Progress Note ---
Subjective Interval history: onc data review 66yo woman with h/o breast cancer, now with metastatic cancer affecting lungs and LN eval at [facility] ER for SOB, imaging foudn to have mediastinal LA and RUL mass has been on vent since admission received steroid pulse L leg prox DVT found-->lovenox twice daily DATA REVIEWED BELOW IMP: h/o breast cancer (details unavailable) now with metastatic cancer affecting lung and LN L leg prox DVT REC: biopsy most accessible tumor labs to include CEA, CA15-3, CA27-29 steroid pulse/taper lovenox "full dose" Active Medications Enoxaparin Sodium (Enoxaparin 100 Mg/1 Ml Inj) 100 mg SUB-Q Q12HR DEMIAN; Protocol Last Admin: 07/31/21 09:42 Dose: 100 mg Documented by: Methylprednisolone Sodium Succinate (Methylprednisolone Sod Succinate 40 Mg/1 Ml Inj) 40 mg IV Q8HR DEMIAN Last Admin: 07/31/21 07:16 Dose: 40 mg Documented by: Laboratory Last Values WBC 15.0 K/mm3 (4.5-11.0) H 07/31/21 04:45 Hgb 11.7 gm/dl (10.1-14.3) 07/31/21 04:45 Hct 34.9 % (30.3-42.9) D 07/31/21 04:45 Plt Count 249 K/mm3 (140-440) 07/31/21 04:45 PT 14.0 Sec. (12.2-14.9) 07/29/21 04:44 INR 1.03 (0.87-1.13) 07/29/21 04:44 D-Dimer 852.47 ng/mlDDU (0-234) H 07/29/21 07:17 FiO2 % 35.0 07/31/21 03:34 Total Bilirubin 0.30 mg/dL (0.1-1.2) 07/27/21 22:57 AST 98 units/L (5-40) H 07/27/21 22:57 ALT 90 units/L (7-56) H 07/27/21 22:57 Alkaline Phosphatase 98 units/L (35-129) 07/27/21 22:57 Coronavirus (PCR) Negative (Negative) 07/29/21 07:58 Objective - Constitutional Vitals: Last Vital Signs Temp 101.5 F H 07/31/21 07:26 Pulse 73 07/31/21 08:10 Resp 20 07/31/21 08:10 BP 130/70 07/31/21 08:10 Pulse Ox 90 07/31/21 08:20 - Labs Lab Results: Laboratory Results - last 24 hr 07/30/21 07/30/21 07/30/21 11:32 17:34 23:39 WBC RBC Hgb Hct MCV MCH MCHC RDW Plt Count Add Manual Diff Total Counted Seg Neutrophils % Seg Neuts % (Manual) Band Neutrophils % Lymphocytes % (Manual) Monocytes % (Manual) Myelocytes % Nucleated RBC % Seg Neutrophils # Man Band Neutrophils # Lymphocytes # (Manual) Abs React Lymphs (Man) Monocytes # (Manual) Eosinophils # (Manual) Basophils # (Manual) Metamyelocytes # Myelocytes # Promyelocytes # Blast Cells # WBC Morphology Hypersegmented Neuts Hyposegmented Neuts Hypogranular Neuts Smudge Cells Toxic Granulation Toxic Vacuolation Dohle Bodies Pelger-Huet Anomaly Beryl Rods Platelet Estimate Clumped Platelets Plt Clumps, EDTA Large Platelets Giant Platelets Platelet Satelliting Plt Morphology Comment RBC Morphology Dimorphic RBCs Polychromasia Hypochromasia Poikilocytosis Anisocytosis Microcytosis Macrocytosis Spherocytes Pappenheimer Bodies Sickle Cells Target Cells Tear Drop Cells Ovalocytes Helmet Cells [place] Bodies Thiells Rings Willow Cells Bite Cells Crenated Cell Elliptocytes Acanthocytes (Spur) Rouleaux Hemoglobin C Crystals Schistocytes Malaria parasites Gurmeet Bodies Hem Pathologist Commnt ABG pH POC ABG pCO2 POC ABG pO2 POC ABG HCO3 ABG O2 Saturation POC ABG Base Excess ABG Hemoglobin ABG Oxyhemoglobin ABG Methemoglobin ABG Sodium ABG Potassium ABG Chloride ABG Glucose Carboxyhemoglobin FiO2 % Sodium Potassium Chloride Carbon Dioxide Anion Gap BUN Creatinine Estimated GFR BUN/Creatinine Ratio Glucose POC Glucose 207 H 239 H 176 H Calcium Arterial Blood Glucose Arterial Blood Ionized Calcium 07/31/21 07/31/21 07/31/21 03:34 04:45 04:45 WBC 15.0 H RBC 4.05 Hgb 11.7 Hct 34.9 D MCV 86 MCH 29 MCHC 34 RDW 15.5 H Plt Count 249 Add Manual Diff Complete Total Counted 100 Seg Neutrophils % [employer] Seg Neuts % (Manual) 89.0 H Band Neutrophils % 1.0 Lymphocytes % (Manual) 7.0 L Monocytes % (Manual) 2.0 Myelocytes % 1.0 Nucleated RBC % Not Reportable Seg Neutrophils # Man 13.4 H Band Neutrophils # 0.2 Lymphocytes # (Manual) 1.1 L Abs React Lymphs (Man) 0.0 Monocytes # (Manual) 0.3 Eosinophils # (Manual) 0.0 Basophils # (Manual) 0.0 Metamyelocytes # 0.0 Myelocytes # 0.2 Promyelocytes # 0.0 Blast Cells # 0.0 WBC Morphology Not Reportable Hypersegmented Neuts Not Reportable Hyposegmented Neuts Not Reportable Hypogranular Neuts Not Reportable Smudge Cells Not Reportable Toxic Granulation Not Reportable Toxic Vacuolation Not Reportable Dohle Bodies Not Reportable Pelger-Huet Anomaly Not Reportable Beryl Rods Not Reportable Platelet Estimate Consistent w auto Clumped Platelets Not Reportable Plt Clumps, EDTA Not Reportable Large Platelets Not Reportable Giant Platelets Not Reportable Platelet Satelliting Not Reportable Plt Morphology Comment Not Reportable RBC Morphology Normal Dimorphic RBCs Not Reportable Polychromasia Not Reportable Hypochromasia Not Reportable Poikilocytosis Not Reportable Anisocytosis Not Reportable Microcytosis Not Reportable Macrocytosis Not Reportable Spherocytes Not Reportable Pappenheimer Bodies Not Reportable Sickle Cells Not Reportable Target Cells Not Reportable Tear Drop Cells Not Reportable Ovalocytes Not Reportable Helmet Cells Not Reportable [place] Bodies Not Reportable Thiells Rings Not Reportable Willow Cells Not Reportable Bite Cells Not Reportable Crenated Cell Not Reportable Elliptocytes Not Reportable Acanthocytes (Spur) Not Reportable Rouleaux Not Reportable Hemoglobin C Crystals Not Reportable Schistocytes Not Reportable Malaria parasites Not Reportable Gurmeet Bodies Not Reportable Hem Pathologist Commnt No ABG pH 7.481 H POC ABG pCO2 31.8 L POC ABG pO2 104.5 POC ABG HCO3 23.2 ABG O2 Saturation 97.9 POC ABG Base Excess 0.4 ABG Hemoglobin 12.7 ABG Oxyhemoglobin 97.5 ABG Methemoglobin 0.3 ABG Sodium 135.2 L ABG Potassium 3.3 L ABG Chloride 103.0 ABG Glucose 188 H Carboxyhemoglobin 0.1 L FiO2 % 35.0 Sodium 142 Potassium 3.4 L Chloride 101.9 Carbon Dioxide 25 Anion Gap 19 BUN 61 H Creatinine 2.6 H D Estimated GFR 22 BUN/Creatinine Ratio 23 Glucose 176 H POC Glucose Calcium 8.5 Arterial Blood Glucose 188 H Arterial Blood Ionized Calcium 4.4 L 07/31/21 04:45 WBC RBC Hgb Hct MCV MCH MCHC RDW Plt Count Add Manual Diff Total Counted Seg Neutrophils % Seg Neuts % (Manual) Band Neutrophils % Lymphocytes % (Manual) Monocytes % (Manual) Myelocytes % Nucleated RBC % Seg Neutrophils # Man Band Neutrophils # Lymphocytes # (Manual) Abs React Lymphs (Man) Monocytes # (Manual) Eosinophils # (Manual) Basophils # (Manual) Metamyelocytes # Myelocytes # Promyelocytes # Blast Cells # WBC Morphology Hypersegmented Neuts Hyposegmented Neuts Hypogranular Neuts Smudge Cells Toxic Granulation Toxic Vacuolation Dohle Bodies Pelger-Huet Anomaly Beryl Rods Platelet Estimate Clumped Platelets Plt Clumps, EDTA Large Platelets Giant Platelets Platelet Satelliting Plt Morphology Comment RBC Morphology Dimorphic RBCs Polychromasia Hypochromasia Poikilocytosis Anisocytosis Microcytosis Macrocytosis Spherocytes Pappenheimer Bodies Sickle Cells Target Cells Tear Drop Cells Ovalocytes Helmet Cells [place] Bodies Thiells Rings Willow Cells Bite Cells Crenated Cell Elliptocytes Acanthocytes (Spur) Rouleaux Hemoglobin C Crystals Schistocytes Malaria parasites Gurmeet Bodies Hem Pathologist Commnt ABG pH POC ABG pCO2 POC ABG pO2 POC ABG HCO3 ABG O2 Saturation POC ABG Base Excess ABG Hemoglobin ABG Oxyhemoglobin ABG Methemoglobin ABG Sodium ABG Potassium ABG Chloride ABG Glucose Carboxyhemoglobin FiO2 % Sodium Potassium Chloride Carbon Dioxide Anion Gap BUN Creatinine Estimated GFR BUN/Creatinine Ratio Glucose POC Glucose 195 H Calcium Arterial Blood Glucose Arterial Blood Ionized Calcium Medications & Allergies - Medications Allergies/Adverse Reactions: Allergies No Known Allergies Allergy (Verified 12/24/18 11:45) Home Medications: Home Medications Medication Instructions Recorded Confirmed Last Taken Type traMADoL [Ultram 50 MG tab] 50 mg PO Q6HR PRN #15 tablet 01/25/18 Unknown Rx Active Medications: Generic Name Dose Route Start Last Admin Trade Name Freq PRN Reason Stop Dose Admin Acetaminophen 650 mg 07/28/21 02:11 Acetaminophen 325 Mg Tab PO Q6H PRN Pain MILD(1-3)/Fever >100.5/GARCIA Albuterol/Ipratropium 1 ampul 07/28/21 14:00 07/31/21 08:10 Ipratropium/Albuterol Sulfate 3 Ml Ampul.Neb IH 1 ampul TID DEMIAN Administration Lipase/Protease/Amylase 1 each 07/29/21 13:01 Lipase 10,500/Protease 25,000/Amylase 43,750 (Units) Dr Campoverde FEEDTUBE PRN PRN For Clogged Feeding Tube Arformoterol Tartrate 15 mcg 07/28/21 20:00 07/31/21 08:10 Arformoterol 15 Mcg/2 Ml Nebu IH 15 mcg Q12HRT DEMIAN Administration Budesonide 0.5 mg 07/28/21 20:00 07/31/21 08:10 Budesonide 0.5 Mg/2 Ml Nebu IH 0.5 mg Q12HRT DEMIAN Administration Dextrose 50 ml 07/28/21 02:11 Dextrose 50% In Water (25gm) 50 Ml Syringe IV Q30MIN PRN Hypoglycemia Protocol Enoxaparin Sodium 100 mg 07/29/21 13:00 07/31/21 09:42 Enoxaparin 100 Mg/1 Ml Inj SUB-Q 100 mg Q12HR DEMIAN Administration Protocol Famotidine 20 mg 07/29/21 22:00 07/31/21 09:42 Famotidine 20 Mg/2 Ml Inj IV 20 mg BID DEMIAN Administration Fentanyl 50 mcg 07/29/21 10:42 Fentanyl 100 Mcg/2 Ml Inj IV Q10MIN PRN ANALGESIA Hydralazine HCl 10 mg 07/30/21 14:52 Hydralazine 20 Mg/1 Ml Inj IV Q6H PRN SBP > 165 Hydrophilic Ointment 1 applic 07/29/21 10:42 Lip Therapy Vaseline TP Q2HR PRN Dry Lips Ceftriaxone Sodium 2 gm in 100 mls @ 200 mls/hr 07/28/21 06:00 07/31/21 09:41 Rocephin/Ns 2 Gm/100 Ml IV 08/01/21 06:29 200 mls/hr Q24H DEMIAN Administration Protocol Azithromycin 500 mg in 250 mls @ 250 mls/hr 07/28/21 07:00 07/31/21 09:41 Zithromax/Ns IV 08/01/21 07:59 250 mls/hr Q24H DEMIAN Administration Fentanyl Citrate 2,000 mcg in 100 mls @ 5.35 mls/hr 07/29/21 11:00 07/31/21 07:17 Fentanyl Drip Premix IV 3 mcg/kg/hr TITR DEMIAN 16.05 mls/hr Administration Protocol 1 MCG/KG/HR Midazolam HCl 100 mg/ Sodium 100 mls @ 2 mls/hr 07/29/21 11:00 07/30/21 15:04 Chloride IV 2 mg/hr TITR DEMIAN 2 mls/hr Administration Protocol 2 MG/HR Norepinephrine 4 mg in 250 mls @ 7.5 mls/hr 07/29/21 21:00 Levophed Drip 4 Mg/Ns 250 Ml IV TITR DEMIAN Protocol 2 MCG/MIN Insulin Human Lispro 0 unit 07/29/21 12:00 07/31/21 07:17 Insulin Lispro 100 Unit/Ml SUB-Q 2 unit Q6HR DEMIAN Administration Protocol Magnesium Hydroxide 30 ml 07/28/21 02:11 Magnesium Hydroxide (Mom) Oral Liqd Udc PO Q4H PRN Constipation Methylprednisolone Sodium Succinate 40 mg 07/28/21 06:00 07/31/21 07:16 Methylprednisolone Sod Succinate 40 Mg/1 Ml Inj IV 40 mg Q8HR DEMIAN Administration Midazolam HCl 2 mg 07/29/21 10:42 Midazolam 2 Mg/2 Ml Inj IV Q10MIN PRN Sedation Multi-Ingred Cream/Lotion/Oil/Oint 1 applic 07/29/21 10:42 Mineral Oil/Petrolatum, White Ophth Oint 3.5 Gm OU Q4HR PRN Dry Eye(s) Ondansetron HCl 4 mg 07/28/21 02:11 Ondansetron 4 Mg/2 Ml Inj IV Q8H PRN Nausea And Vomiting Senna/Docusate Sodium 1 tab 07/29/21 22:00 07/31/21 09:42 Sennosides/Docusate Sodium 8.6/50 Mg Tab FEEDTUBE 1 tab BID DEMIAN Administration Simple Syrup 15 ml 07/29/21 13:01 Simple Syrup 15 Ml FEEDTUBE PRN PRN Hypoglycemia Simple Syrup 30 ml 07/29/21 13:01 Simple Syrup 15 Ml FEEDTUBE PRN PRN Hypoglycemia Sodium Bicarbonate 325 mg 07/29/21 13:01 Sodium Bicarbonate 325 Mg Tab FEEDTUBE PRN PRN For Clogged Feeding Tube Sodium Chloride 10 ml 07/28/21 10:00 07/31/21 09:42 Sodium Chloride 0.9% 10 Ml Flush Syringe IV 10 ml BID DEMIAN Administration Sodium Chloride 10 ml 07/28/21 02:05 Sodium Chloride 0.9% 10 Ml Flush Syringe IV PRN PRN LINE FLUSH
--- NOTE | 2021-07-31 13:33 | Consultation ---
History of Present Illness - Reason for Consult Consult date: 07/31/21 - History of Present Illness 66-year-old female past medical history metastatic breast cancer, hypertension, diabetes, COPD presented to the hospital complaining of shortness of breath. This began on the day of admission in the setting of recently diagnosed COPD. She notes being fully vaccinated against Covid. She otherwise denies any symptoms. A code was called on the day after admission, and she was emergently intubated. Febrile to 1-1.5 with a white count of 15. Decreased renal function with an EGFR of 22. Covid negative. Currently on ceftriaxone and azithromycin. Blood sputum cultures no growth so far. Imaging personally reviewed: Chest x-ray: Worsening bilateral pulmonary opacities. Past History Past Medical History: COPD, diabetes, hypertension, hyperlipidemia, other (History of right breast cancer) Past Surgical History: hysterectomy, mastectomy, tonsillectomy Social history: smoking (Current daily smoker) Family history: no significant family history Medications and Allergies Allergies Allergy/AdvReac Type Severity Reaction Status Date / Time No Known Allergies Allergy Verified 12/24/18 11:45 Home Medications Medication Instructions Recorded Confirmed Last Taken Type traMADoL [Ultram 50 MG tab] 50 mg PO Q6HR PRN #15 tablet 01/25/18 Unknown Rx Active Meds: Active Medications Acetaminophen (Acetaminophen 325 Mg Tab) 650 mg PO Q6H PRN PRN Reason: Pain MILD(1-3)/Fever >100.5/GARCIA Albuterol/Ipratropium (Ipratropium/Albuterol Sulfate 3 Ml Ampul.Neb) 1 ampul IH TID [facility] Last Admin: 07/31/21 13:08 Dose: 1 ampul Documented by: Lipase/Protease/Amylase (Lipase 10,500/Protease 25,000/Amylase 43,750 (Units) Dr Campoverde) 1 each FEEDTUBE PRN PRN PRN Reason: For Clogged Feeding Tube Arformoterol Tartrate (Arformoterol 15 Mcg/2 Ml Nebu) 15 mcg IH Q12HRT [facility] Last Admin: 07/31/21 08:10 Dose: 15 mcg Documented by: Budesonide (Budesonide 0.5 Mg/2 Ml Nebu) 0.5 mg IH Q12HRT [facility] Last Admin: 07/31/21 08:10 Dose: 0.5 mg Documented by: Dextrose (Dextrose 50% In Water (25gm) 50 Ml Syringe) 50 ml IV Q30MIN PRN; Protocol PRN Reason: Hypoglycemia Enoxaparin Sodium (Enoxaparin 100 Mg/1 Ml Inj) 100 mg SUB-Q Q12HR DEMIAN; Protocol Last Admin: 07/31/21 09:42 Dose: 100 mg Documented by: Famotidine (Famotidine 20 Mg/2 Ml Inj) 20 mg IV BID DEMIAN Last Admin: 07/31/21 09:42 Dose: 20 mg Documented by: Fentanyl (Fentanyl 100 Mcg/2 Ml Inj) 50 mcg IV Q10MIN PRN PRN Reason: ANALGESIA Hydralazine HCl (Hydralazine 20 Mg/1 Ml Inj) 10 mg IV Q6H PRN PRN Reason: SBP > 165 Hydrophilic Ointment (Lip Therapy Vaseline) 1 applic TP Q2HR PRN PRN Reason: Dry Lips Ceftriaxone Sodium (Rocephin/Ns 2 Gm/100 Ml) 2 gm in 100 mls @ 200 mls/hr IV Q24H DEMIAN; Protocol Stop: 08/01/21 06:29 Last Admin: 07/31/21 09:41 Dose: 200 mls/hr Documented by: Azithromycin (Zithromax/Ns) 500 mg in 250 mls @ 250 mls/hr IV Q24H DEMIAN Stop: 08/01/21 07:59 Last Admin: 07/31/21 09:41 Dose: 250 mls/hr Documented by: Fentanyl Citrate (Fentanyl Drip Premix) 2,000 mcg in 100 mls @ 5.35 mls/hr IV TITR DEMIAN; Protocol Last Admin: 07/31/21 13:12 Dose: 3 mcg/kg/hr, 16.05 mls/hr Documented by: Midazolam HCl 100 mg/ Sodium (Chloride) 100 mls @ 2 mls/hr IV TITR DEMIAN; Protoc ol Last Admin: 07/30/21 15:04 Dose: 2 mg/hr, 2 mls/hr Documented by: Norepinephrine (Levophed Drip 4 Mg/Ns 250 Ml) 4 mg in 250 mls @ 7.5 mls/hr IV TITR DEMIAN; Protocol Insulin Human Lispro (Insulin Lispro 100 Unit/Ml) 0 unit SUB-Q Q6HR DEMIAN; Protocol Last Admin: 07/31/21 13:13 Dose: 3 unit Documented by: Magnesium Hydroxide (Magnesium Hydroxide (Mom) Oral Liqd Udc) 30 ml PO Q4H PRN PRN Reason: Constipation Methylprednisolone Sodium Succinate (Methylprednisolone Sod Succinate 40 Mg/1 Ml Inj) 40 mg IV Q8HR [facility] Last Admin: 07/31/21 13:13 Dose: 40 mg Documented by: Midazolam HCl (Midazolam 2 Mg/2 Ml Inj) 2 mg IV Q10MIN PRN PRN Reason: Sedation Multi-Ingred Cream/Lotion/Oil/Oint (Mineral Oil/Petrolatum, White Ophth Oint 3.5 Gm) 1 applic OU Q4HR PRN PRN Reason: Dry Eye(s) Ondansetron HCl (Ondansetron 4 Mg/2 Ml Inj) 4 mg IV Q8H PRN PRN Reason: Nausea And Vomiting Senna/Docusate Sodium (Sennosides/Docusate Sodium 8.6/50 Mg Tab) 1 tab FEEDTUBE BID [facility] Last Admin: 07/31/21 09:42 Dose: 1 tab Documented by: Simple Syrup (Simple Syrup 15 Ml) 15 ml FEEDTUBE PRN PRN PRN Reason: Hypoglycemia Simple Syrup (Simple Syrup 15 Ml) 30 ml FEEDTUBE PRN PRN PRN Reason: Hypoglycemia Sodium Bicarbonate (Sodium Bicarbonate 325 Mg Tab) 325 mg FEEDTUBE PRN PRN PRN Reason: For Clogged Feeding Tube Sodium Chloride (Sodium Chloride 0.9% 10 Ml Flush Syringe) 10 ml IV BID [facility] Last Admin: 07/31/21 09:42 Dose: 10 ml Documented by: Sodium Chloride (Sodium Chloride 0.9% 10 Ml Flush Syringe) 10 ml IV PRN PRN PRN Reason: LINE FLUSH Review of Systems ROS unobtainable: due to endotracheal tube Physical Examination - Physical Exam Narrative exam: Physical Exam: Constitutional: Intubated, sedated Head, Ears, Nose: Normocephalic, atraumatic. External ears, nose normal Eyes: Conjunctivae/corneas clear. No icterus. No ptosis. Neck: ETT Oral: ETT Cardiovascular: S1, S2 normal. Respiratory: Good air entry, clear to auscultation bilaterally GI: Soft, non-tender; bowel sounds normal. No peritoneal signs. Musculoskeletal: No pedal edema, no cyanosis. Skin: No rash or abscess Hem/Lymphatic: No palpable cervical or supraclavicular nodes. No lymphangitis Psych: Sedated Neurological: Sedated - Constitutional Vitals: Vital Signs Temp Pulse Resp BP Pulse Ox 96.0 F L 82 20 132/78 98 07/31/21 12:00 07/31/21 13:08 07/31/21 13:08 07/31/21 12:00 07/31/21 12:00 Temperature -Last 24 Hours Temperature 96.0 F Temperature 98.6 F Temperature 101.5 F Temperature 98.6 F Temperature 97.6 F Temperature 97.8 F Temperature 98.7 F Temperature 98.1 F Results - Labs CBC & Chem 7: 07/31/21 04:45 07/31/21 04:45 Labs: Abnormal lab results 07/30/21 07/30/21 07/31/21 Range/Units 17:34 23:39 03:34 WBC (4.5-11.0) K/mm3 RDW (13.2-15.2) % Seg Neuts % (Manual) (40.0-70.0) % Lymphocytes % (Manual) (13.4-35.0) % Seg Neutrophils # Man (1.8-7.7) K/mm3 Lymphocytes # (Manual) (1.2-5.4) K/mm3 ABG pH 7.481 H (7.320-7.450) POC ABG pCO2 31.8 L (32.0-48.0) mmHg ABG Sodium 135.2 L (136.0-145.0) mmol/L ABG Potassium 3.3 L (3.40-4.50) mmol/L ABG Glucose 188 H (65-95) mg/dL Carboxyhemoglobin 0.1 L (0.5-1.5) Potassium (3.6-5.0) mmol/L BUN (7-17) mg/dL Creatinine (0.6-1.2) mg/dL Glucose (65-100) mg/dL POC Glucose 239 H 176 H (70-105) mg/dL Arterial Blood Glucose 188 H (65-95) mg/dL Arterial Blood Ionized Calcium 4.4 L (4.6-5.3) mg/dL 07/31/21 07/31/21 07/31/21 Range/Units 04:45 04:45 04:45 WBC 15.0 H (4.5-11.0) K/mm3 RDW 15.5 H (13.2-15.2) % Seg Neuts % (Manual) 89.0 H (40.0-70.0) % Lymphocytes % (Manual) 7.0 L (13.4-35.0) % Seg Neutrophils # Man 13.4 H (1.8-7.7) K/mm3 Lymphocytes # (Manual) 1.1 L (1.2-5.4) K/mm3 ABG pH (7.320-7.450) POC ABG pCO2 (32.0-48.0) mmHg ABG Sodium (136.0-145.0) mmol/L ABG Potassium (3.40-4.50) mmol/L ABG Glucose (65-95) mg/dL Carboxyhemoglobin (0.5-1.5) Potassium 3.4 L (3.6-5.0) mmol/L BUN 61 H (7-17) mg/dL Creatinine 2.6 H D (0.6-1.2) mg/dL Glucose 176 H (65-100) mg/dL POC Glucose 195 H (70-105) mg/dL Arterial Blood Glucose (65-95) mg/dL Arterial Blood Ionized Calcium (4.6-5.3) mg/dL 07/31/21 Range/Units 11:28 WBC (4.5-11.0) K/mm3 RDW (13.2-15.2) % Seg Neuts % (Manual) (40.0-70.0) % Lymphocytes % (Manual) (13.4-35.0) % Seg Neutrophils # Man (1.8-7.7) K/mm3 Lymphocytes # (Manual) (1.2-5.4) K/mm3 ABG pH (7.320-7.450) POC ABG pCO2 (32.0-48.0) mmHg ABG Sodium (136.0-145.0) mmol/L ABG Potassium (3.40-4.50) mmol/L ABG Glucose (65-95) mg/dL Carboxyhemoglobin (0.5-1.5) Potassium (3.6-5.0) mmol/L BUN (7-17) mg/dL Creatinine (0.6-1.2) mg/dL Glucose (65-100) mg/dL POC Glucose 245 H (70-105) mg/dL Arterial Blood Glucose (65-95) mg/dL Arterial Blood Ionized Calcium (4.6-5.3) mg/dL Assessment and Plan Cultures: Blood culture no growth so far Sputum culture no growth so far A/P: 66-year-old female past medical history metastatic breast cancer, hypertension, diabetes, COPD now with: #Acute sepsis: With fevers and leukocytosis. Sepsis has been up and down in the setting of recent CODE BLUE. #Acute hypoxic respiratory failure: Currently on the vent. In the setting of pneumonia and metastatic breast cancer to the lungs #Metastatic breast cancer #WYATT: Renally dose medications. Recs: -Escalated to cefepime -Trend white count, fevers -Procalcitonin likely not useful in the setting of WYATT -Follow-up culture data Poor prognosis Thank you for the consult, we will continue to follow. MD Guill[facility] O: [phone] F: [phone]
--- NOTE | 2021-07-31 13:44 | Progress Note ---
Assessment and Plan Acute hypoxemic respiratory failure secondary Lung Mass (? Lung vs Breast CA) Acute COPD exacerbation Possible hypercapnia History of right breast cancer Leukocytosis DM II Hypertension Hyperlipidemia Tobacco use disorder - continue full anticoagulation for VTE - get nephrology consult re: [place] - get urine lytes and address - will do inspection bronchoscopy once stable and hopefully get some washes (tentatively tomorrow) - COVID test negative - 2D ECHO shows HFpEF & mild Pulm HTN - continue care as below otherwise; - continue daily SAT and SBT assessment as tolerated - continue to wean supplemental oxygen for target O2 sat's > 90% acutely - VAP bundle addressed - continue lung protective strategies - continue bronchodilators (GLADIS & LABA) with pulmonary hygiene per RT - wean per pulmonary driven protocols otherwise - continue accuchecks with glycemic control per SSI (While critically ill target blood glucose of 140-180 mg/dL; avoid hypoglycemia) - sedation prn for target RASS 0 to -1 - avoid nephrotoxins, renally dose all medications - continue to avoid benzodiazepine's, reduce the possibility of delirium - complete AB's per ID rec's - prn analgesia per CPOT score - Maintenance of sleep-wake cycle, avoid delirium - enteral nutritional support at goal rate as tolerated - G.I. & VTE prophylaxis - PT/OT/ROM exercises - continue mobility protocols for pressure ulcer prophylaxis - Monitor hemodynamics closely - continue other care per attending / other consultants - discharge planning ongoing concurrently COVID SPECIFIC INTERVENTIONS - test result pending .... Re-evaluate in am & prn CONDITION: CRITICAL PROGNOSIS: GUARDED CODE STATUS: FULL CODE The high probability of a clinically significant, sudden or life-threatening deterioration of the [respiratory, cardiovascular, oncological & neurologic] system(s) required my full and direct attention, intervention and personal management. The aggregate critical care time was [32] minutes without overlap. Time includes spent on; [x] Data Review and interpretation [x] Patient assessment and monitoring of vital signs [x] Documentation [x] Medication orders and management Subjective Date of service: 07/31/21 Principal diagnosis: Ac hypoxemic resp failure ; AE-COPD; H/O CA Breast; DM II; HTN Interval history: Patient is seen today for: Acute hypoxemic respiratory failure; AE-COPD; Possible hypercapnia; H/O CA Breast; DM II; HTN Seen and examined at bedside; 24hour events reviewed; nursing and respiratory care staff consulted; no adverse overnight events reported to me; resting in bed; remains on MVS; acute DVT noted and started on full dose Lovenox; no new issues otrherwise Objective Vital Signs - 12hr 07/31/21 07/31/21 07/31/21 01:51 02:00 02:11 Temperature Pulse Rate 85 82 81 Pulse Rate [ Anterior Bilateral] Pulse Rate [ From Monitor] Respiratory 23 24 24 Rate Respiratory Rate [Anterior Bilateral] Blood Pressure 130/67 130/67 110/61 O2 Sat by Pulse 98 99 99 Oximetry 07/31/21 07/31/21 07/31/21 02:21 02:30 02:41 Temperature Pulse Rate 80 79 77 Pulse Rate [ Anterior Bilateral] Pulse Rate [ From Monitor] Respiratory 24 24 24 Rate Respiratory Rate [Anterior Bilateral] Blood Pressure 110/61 114/68 114/68 O2 Sat by Pulse 99 99 99 Oximetry 07/31/21 07/31/21 07/31/21 02:51 03:00 03:11 Temperature Pulse Rate 77 76 72 Pulse Rate [ Anterior Bilateral] Pulse Rate [ From Monitor] Respiratory 24 24 24 Rate Respiratory Rate [Anterior Bilateral] Blood Pressure 114/68 115/67 115/67 O2 Sat by Pulse 99 99 99 Oximetry 07/31/21 07/31/21 07/31/21 03:21 03:30 03:41 Temperature Pulse Rate 74 73 73 Pulse Rate [ Anterior Bilateral] Pulse Rate [ From Monitor] Respiratory 24 24 24 Rate Respiratory Rate [Anterior Bilateral] Blood Pressure 115/67 130/70 130/70 O2 Sat by Pulse 99 99 99 Oximetry 07/31/21 07/31/21 07/31/21 03:51 04:00 04:01 Temperature 97.6 F Pulse Rate 74 72 Pulse Rate [ Anterior Bilateral] Pulse Rate [ 72 From Monitor] Respiratory 24 24 Rate Respiratory Rate [Anterior Bilateral] Blood Pressure 130/70 130/70 O2 Sat by Pulse 99 98 100 Oximetry 07/31/21 07/31/21 07/31/21 04:11 04:21 04:31 Temperature Pulse Rate 71 73 73 Pulse Rate [ Anterior Bilateral] Pulse Rate [ From Monitor] Respiratory 24 24 24 Rate Respiratory Rate [Anterior Bilateral] Blood Pressure 130/70 130/70 130/70 O2 Sat by Pulse 100 99 99 Oximetry 07/31/21 07/31/21 07/31/21 04:34 04:41 04:51 Temperature Pulse Rate 71 73 73 Pulse Rate [ Anterior Bilateral] Pulse Rate [ From Monitor] Respiratory 20 20 Rate Respiratory Rate [Anterior Bilateral] Blood Pressure 130/70 130/70 O2 Sat by Pulse 98 98 98 Oximetry 07/31/21 07/31/21 07/31/21 05:01 05:11 05:21 Temperature Pulse Rate 73 70 71 Pulse Rate [ Anterior Bilateral] Pulse Rate [ From Monitor] Respiratory 20 20 20 Rate Respiratory Rate [Anterior Bilateral] Blood Pressure 130/70 130/70 130/70 O2 Sat by Pulse 98 98 98 Oximetry 07/31/21 07/31/21 07/31/21 05:31 05:41 05:51 Temperature Pulse Rate 73 73 73 Pulse Rate [ Anterior Bilateral] Pulse Rate [ From Monitor] Respiratory 20 20 20 Rate Respiratory Rate [Anterior Bilateral] Blood Pressure 130/70 130/70 130/70 O2 Sat by Pulse 97 97 97 Oximetry 07/31/21 07/31/21 07/31/21 06:01 06:11 07:00 Temperature 98.6 F Pulse Rate 73 74 Pulse Rate [ Anterior Bilateral] Pulse Rate [ From Monitor] Respiratory 20 20 Rate Respiratory Rate [Anterior Bilateral] Blood Pressure 130/70 130/70 O2 Sat by Pulse 98 98 Oximetry 07/31/21 07/31/21 07/31/21 07:26 08:00 08:10 Temperature 101.5 F H 98.6 F Pulse Rate 74 Pulse Rate [ 73 Anterior Bilateral] Pulse Rate [ From Monitor] Respiratory Rate Respiratory 20 Rate [Anterior Bilateral] Blood Pressure 130/70 O2 Sat by Pulse 98 Oximetry 07/31/21 07/31/21 07/31/21 08:20 12:00 13:08 Temperature 96.0 F L Pulse Rate 78 Pulse Rate [ 82 Anterior Bilateral] Pulse Rate [ From Monitor] Respiratory Rate Respiratory 20 Rate [Anterior Bilateral] Blood Pressure 132/78 O2 Sat by Pulse 90 98 Oximetry Constitutional: appears uncomfortable, other (eldely obese female with mildy increased respiratory effort at rest on MVS) Eyes: non-icteric ENT: oropharynx moist, other (ETT 24 cm [place]) Neck: supple, no lymphadenopathy, no JVD Effort: mildly labored Ascultation: Bilateral: diminished breath sounds, wheezes (central), rales, rhonchi, other (prolonged expiratory phase) Percussion: Bilateral: not dull Cardiovascular: regular rate and rhythm Gastrointestinal: normoactive bowel sounds, soft, non-tender, non-distended Integumentary: normal Extremities: no cyanosis, no edema, pulses normal, no ischemia or petechiae Neurologic: normal mental status, non-focal exam, pupils equal and round, CN II- XII normal Psychiatric: mood appropriate, affect normal CBC and BMP: 07/31/21 04:45 07/31/21 04:45 ABG, PT/INR, D-dimer: ABG ABG pH 7.481 (7.320-7.450) H 07/31/21 03:34 POC ABG pCO2 31.8 mmHg (32.0-48.0) L 07/31/21 03:34 POC ABG pO2 104.5 mmHg (83-108) 07/31/21 03:34 POC ABG HCO3 23.2 07/31/21 03:34 ABG O2 Saturation 97.9 (0-100) 07/31/21 03:34 PT/INR, D-dimer PT 14.0 Sec. (12.2-14.9) 07/29/21 04:44 INR 1.03 (0.87-1.13) 07/29/21 04:44 D-Dimer 852.47 ng/mlDDU (0-234) H 07/29/21 07:17 Abnormal lab findings: Abnormal Labs 07/27/21 07/27/21 07/27/21 22:57 22:57 22:57 WBC 20.3 H Hct RDW Seg Neuts % (Manual) 89.0 H Lymphocytes % (Manual) 9.0 L Seg Neutrophils # Man 18.1 H Lymphocytes # (Manual) Monocytes # (Manual) D-Dimer ABG pH POC ABG pCO2 POC ABG pO2 ABG Oxyhemoglobin ABG Sodium ABG Potassium ABG Glucose Carboxyhemoglobin Potassium 3.5 L Chloride 96.9 L Carbon Dioxide 20 L BUN 19 H Creatinine Glucose 204 H POC Glucose Lactic Acid 7.20 H* AST 98 H ALT 90 H Arterial Blood Glucose Arterial Blood Ionized Calcium 07/28/21 07/28/21 07/28/21 01:31 07:49 10:00 WBC Hct RDW Seg Neuts % (Manual) Lymphocytes % (Manual) Seg Neutrophils # Man Lymphocytes # (Manual) Monocytes # (Manual) D-Dimer ABG pH POC ABG pCO2 POC ABG pO2 ABG Oxyhemoglobin ABG Sodium ABG Potassium ABG Glucose Carboxyhemoglobin Potassium Chloride Carbon Dioxide BUN Creatinine Glucose POC Glucose 194 H Lactic Acid 6.90 H* 6.70 H* AST ALT Arterial Blood Glucose Arterial Blood Ionized Calcium 07/28/21 07/28/21 07/28/21 12:41 13:21 16:21 WBC Hct RDW Seg Neuts % (Manual) Lymphocytes % (Manual) Seg Neutrophils # Man Lymphocytes # (Manual) Monocytes # (Manual) D-Dimer ABG pH POC ABG pCO2 POC ABG pO2 ABG Oxyhemoglobin ABG Sodium ABG Potassium ABG Glucose Carboxyhemoglobin Potassium Chloride Carbon Dioxide BUN Creatinine Glucose POC Glucose 159 H 155 H Lactic Acid 6.10 H* AST ALT Arterial Blood Glucose Arterial Blood Ionized Calcium 07/28/21 07/29/21 07/29/21 22:03 04:44 04:44 WBC 17.0 H Hct RDW Seg Neuts % (Manual) 82.0 H Lymphocytes % (Manual) 11.0 L Seg Neutrophils # Man 13.9 H Lymphocytes # (Manual) Monocytes # (Manual) 1.0 H D-Dimer ABG pH POC ABG pCO2 POC ABG pO2 ABG Oxyhemoglobin ABG Sodium ABG Potassium ABG Glucose Carboxyhemoglobin Potassium Chloride Carbon Dioxide BUN 23 H Creatinine Glucose 196 H POC Glucose 187 H Lactic Acid AST ALT Arterial Blood Glucose Arterial Blood Ionized Calcium 07/29/21 07/29/21 07/29/21 06:56 07:17 07:17 WBC 26.1 H Hct 43.3 H RDW 16.0 H Seg Neuts % (Manual) 80.0 H Lymphocytes % (Manual) Seg Neutrophils # Man 20.9 H Lymphocytes # (Manual) Monocytes # (Manual) D-Dimer ABG pH POC ABG pCO2 POC ABG pO2 ABG Oxyhemoglobin ABG Sodium ABG Potassium ABG Glucose Carboxyhemoglobin Potassium Chloride Carbon Dioxide 20 L D BUN 23 H Creatinine Glucose 308 H POC Glucose 165 H Lactic Acid AST ALT Arterial Blood Glucose Arterial Blood Ionized Calcium 07/29/21 07/29/21 07/29/21 07:17 09:16 10:30 WBC Hct RDW Seg Neuts % (Manual) Lymphocytes % (Manual) Seg Neutrophils # Man Lymphocytes # (Manual) Monocytes # (Manual) D-Dimer 852.47 H ABG pH 7.236 L POC ABG pCO2 56.0 H POC ABG pO2 266.4 H ABG Oxyhemoglobin 99.1 H ABG Sodium 132.3 L ABG Potassium 4.9 H ABG Glucose 202 H Carboxyhemoglobin 0.2 L Potassium Chloride Carbon Dioxide BUN Creatinine Glucose POC Glucose 271 H Lactic Acid AST ALT Arterial Blood Glucose 202 H Arterial Blood Ionized Calcium 07/29/21 07/29/21 07/30/21 17:54 23:32 05:08 WBC Hct RDW Seg Neuts % (Manual) Lymphocytes % (Manual) Seg Neutrophils # Man Lymphocytes # (Manual) Monocytes # (Manual) D-Dimer ABG pH POC ABG pCO2 POC ABG pO2 ABG Oxyhemoglobin ABG Sodium ABG Potassium ABG Glucose Carboxyhemoglobin Potassium Chloride Carbon Dioxide BUN Creatinine Glucose POC Glucose 168 H 205 H 214 H Lactic Acid AST ALT Arterial Blood Glucose Arterial Blood Ionized Calcium 07/30/21 07/30/21 07/30/21 06:01 11:32 17:34 WBC Hct RDW Seg Neuts % (Manual) Lymphocytes % (Manual) Seg Neutrophils # Man Lymphocytes # (Manual) Monocytes # (Manual) D-Dimer ABG pH 7.480 H POC ABG pCO2 23.6 L POC ABG pO2 280.0 H ABG Oxyhemoglobin 99.3 H ABG Sodium 133.7 L ABG Potassium ABG Glucose 232 H Carboxyhemoglobin 0 L Potassium Chloride Carbon Dioxide BUN Creatinine Glucose POC Glucose 207 H 239 H Lactic Acid AST ALT Arterial Blood Glucose 232 H Arterial Blood Ionized Calcium 4.4 L 07/30/21 07/31/21 07/31/21 23:39 03:34 04:45 WBC 15.0 H Hct RDW 15.5 H Seg Neuts % (Manual) 89.0 H Lymphocytes % (Manual) 7.0 L Seg Neutrophils # Man 13.4 H Lymphocytes # (Manual) 1.1 L Monocytes # (Manual) D-Dimer ABG pH 7.481 H POC ABG pCO2 31.8 L POC ABG pO2 ABG Oxyhemoglobin ABG Sodium 135.2 L ABG Potassium 3.3 L ABG Glucose 188 H Carboxyhemoglobin 0.1 L Potassium Chloride Carbon Dioxide BUN Creatinine Glucose POC Glucose 176 H Lactic Acid AST ALT Arterial Blood Glucose 188 H Arterial Blood Ionized Calcium 4.4 L 07/31/21 07/31/21 07/31/21 04:45 04:45 11:28 WBC Hct RDW Seg Neuts % (Manual) Lymphocytes % (Manual) Seg Neutrophils # Man Lymphocytes # (Manual) Monocytes # (Manual) D-Dimer ABG pH POC ABG pCO2 POC ABG pO2 ABG Oxyhemoglobin ABG Sodium ABG Potassium ABG Glucose Carboxyhemoglobin Potassium 3.4 L Chloride Carbon Dioxide BUN 61 H Creatinine 2.6 H D Glucose 176 H POC Glucose 195 H 245 H Lactic Acid AST ALT Arterial Blood Glucose Arterial Blood Ionized Calcium Allied health notes reviewed: nursing
[2021-07-31] MEDS: CEFEPIME/NS 2 GM/100 ML 2 GM/100 ML BAG IV SCH (13:53)
[2021-07-31] MEDS: MIDAZOLAM 100 MG in SODIUM CHLORIDE 0.9% 80 ML IV SCH (18:29)
--- NOTE | 2021-08-01 02:37 | XRay Report ---
CHEST 1 VIEW INDICATION: follow up respiratory failure. COMPARISON: One day prior. FINDINGS: Support devices: Unchanged. Heart: Stable. Lungs/Pleura: Bilateral pulmonary opacities, right greater than left are stable. No pleural abnormali ty. IMPRESSION: 1. No significant change. Signer Name: Elvis Farrell MD Signed: 08/01/2021 2:33 AM Workstation Name: [id number]
[2021-08-01] MEDS: fentaNYL DRIP Premix 2,000 MCG/100 ML BAG IV SCH ×3 (03:16→22:10)
[2021-08-01] MEDS: methylPREDNISolone Sod Succinate 40 MG/1 ML INJ IV SCH ×3 (06:33→22:01)
[2021-08-01] MEDS: INSULIN LISPRO 100 UNIT/ML SUB-Q SCH ×4 (06:33→17:48)
[2021-08-01 06:50] LABS: Hematocrit 34.3 % (30.3-42.9); Hemoglobin 11.6 gm/dl (10.1-14.3); Mean Corpuscular HGB Conc 34 % (30-34); Mean Corpuscular Volume 87 fl (79-97); Platelet Count 238 K/mm3 (140-440); Red Blood Count 3.95 M/mm3 (3.65-5.03); Red Cell Distribution Width 15.5 % (13.2-15.2)
[2021-08-01 07:10] LABS: Calcium 8.7 mg/dL (8.4-10.2)
[2021-08-01] MEDS: IPRATROPIUM/ALBUTEROL SULFATE 3 ML AMPUL.NEB IH SCH ×3 (08:04→20:45)
[2021-08-01] MEDS: BUDESONIDE 0.5 MG/2 ML NEBU IH SCH ×2 (08:04→20:45)
[2021-08-01] MEDS: ARFORMOTEROL 15 MCG/2 ML NEBU IH SCH ×2 (08:05→20:45)
--- NOTE | 2021-08-01 09:02 | Consultation ---
History of Present Illness - History of Present Illness Thank you for the consultation Patient was evaluated today My assessment and plan are as follows #Acute kidney injury in a patient who 66-year-old may have limited renal reserve due to age and multiple complex comorbidities creatinine however was normal at 0.9 upon admission which has increased, transiently and now declining again patient is currently nonoliguric most likely etiology of renal failure appears to be contrast related renal injury, rule out other causes partly also resulting from hypoxemia tachycardia which is again stabilizing There is no indication for renal placement therapy, but continue to patiently monitor renal function, #Mild hyperkalemia appears to have improved #Respiratory failure, COPD, tachycardia, hypoxemia: Likely resulting in moderate renal injury as well #Breast cancer: Now felt to be metastatic with mediastinal and lung masses, maya hernandez followed by pulmonary as well as hematology oncology Will order for renal labs patiently monitor renal function supportive care avoidance of any further radiocontrast unless absolutely necessary There is no indication for renal placement therapy at this time Author: Yobani Fournier M.D. [facility], [address] [place] [address] Tel; [phone] [employer] Source of information: From current chart patient unable to provide any history History of present illness 66-year-old female who has been admitted here from July 27, 2021, patient admitted here with shortness of breath with underlying history of COPD hypertension diabetes hyperlipidemia and breast cancer, fully vaccinated for Covid 19, upon arrival her creatinine was 0.9 potassium 3.5 BUN 19 hemoglobin 13.9 and white cell count was 20.3 thousand normal she has been admitted here with COPD exhibition hypoxemia and pneumonia for which she is currently receiving treatment, patient has also been noted to be markedly how sick with tachycardia running in 140-150 on July 29 and has been noted to have possible lung mass versus breast cancer, which possibly is metastatic reviewing hematology oncology notes imaging showed mediastinal mass Patient did receive CT with contrast on July 28, 2021 and 100 cc of contrast was injected On July 29 her creatinine was 0.9 which increased to 2.6 on July 31 prompting this consultation Today's creatinine however is 1.9 She was transiently hypokalemic with a potassium of 3.4 which has improved to 4.1 Past medical history: reviewed from the current chart Current allergies: Reviewed from the current chart Social history: Reviewed from the current chart Family history: Reviewed from the current chart Review of system: Positive for All other review of systems negative Physical examination Vitals: Reviewed General: No acute distress HEENT: Oral mucosa moist no pallor or icterus Neck: Supple without any JVD thyromegaly or nodular mass Chest: prolonged expiratory phase Heart: Regular rate and rhythm S1-S2 heard no S3-S4 Abdomen: Soft nontender, bowel sounds present no renal bruit no suprapubic masses no CVA tenderness noted Extremity: Minimal edema dry skin no peripheral cyanosis Endocrine: Thyroid not enlarged Psychiatric: No agitation and aggression noted Musculoskeletal: No joint effusion noted Labs and x-rays: Reviewed from this admission Past History Past Medical History: COPD, diabetes, hypertension, hyperlipidemia, other (History of right breast cancer) Past Surgical History: hysterectomy, mastectomy, tonsillectomy Social history: smoking (Current daily smoker) Family history: no significant family history Medications and Allergies Allergies Allergy/AdvReac Type Severity Reaction Status Date / Time No Known Allergies Allergy Verified 12/24/18 11:45 Home Medications Medication Instructions Recorded Confirmed Last Taken Type traMADoL [Ultram 50 MG tab] 50 mg PO Q6HR PRN #15 tablet 01/25/18 Unknown Rx Active Meds: Active Medications Acetaminophen (Acetaminophen 325 Mg Tab) 650 mg PO Q6H PRN PRN Reason: Pain MILD(1-3)/Fever >100.5/GARCIA Albuterol/Ipratropium (Ipratropium/Albuterol Sulfate 3 Ml Ampul.Neb) 1 ampul IH TID [facility] Last Admin: 08/01/21 08:04 Dose: 1 ampul Documented by: Lipase/Protease/Amylase (Lipase 10,500/Protease 25,000/Amylase 43,750 (Units) Dr Campoverde) 1 each FEEDTUBE PRN PRN PRN Reason: For Clogged Feeding Tube Arformoterol Tartrate (Arformoterol 15 Mcg/2 Ml Nebu) 15 mcg IH Q12HRT [facility] Last Admin: 08/01/21 08:05 Dose: 15 mcg Documented by: Budesonide (Budesonide 0.5 Mg/2 Ml Nebu) 0.5 mg IH Q12HRT [facility] Last Admin: 08/01/21 08:04 Dose: 0.5 mg Documented by: Dextrose (Dextrose 50% In Water (25gm) 50 Ml Syringe) 50 ml IV Q30MIN PRN; Protocol PRN Reason: Hypoglycemia Enoxaparin Sodium (Enoxaparin 100 Mg/1 Ml Inj) 100 mg SUB-Q Q12HR DEMIAN; Protocol Last Admin: 07/31/21 21:27 Dose: 100 mg Documented by: Famotidine (Famotidine 20 Mg/2 Ml Inj) 20 mg IV BID [facility] Last Admin: 07/31/21 21:28 Dose: 20 mg Documented by: Fentanyl (Fentanyl 100 Mcg/2 Ml Inj) 50 mcg IV Q10MIN PRN PRN Reason: ANALGESIA Hydralazine HCl (Hydralazine 20 Mg/1 Ml Inj) 10 mg IV Q6H PRN PRN Reason: SBP > 165 Hydrophilic Ointment (Lip Therapy Vaseline) 1 applic TP Q2HR PRN PRN Reason: Dry Lips Fentanyl Citrate (Fentanyl Drip Premix) 2,000 mcg in 100 mls @ 5.35 mls/hr IV TITR DEMIAN; Protocol Last Titration: 08/01/21 08:14 Dose: 1 mcg/kg/hr, 5.35 mls/hr Documented by: Midazolam HCl 100 mg/ Sodium (Chloride) 100 mls @ 2 mls/hr IV TITR DEMIAN; Protocol Last Titration: 08/01/21 08:15 Dose: 2 mg/hr, 2 mls/hr Documented by: Norepinephrine (Levophed Drip 4 Mg/Ns 250 Ml) 4 mg in 250 mls @ 7.5 mls/hr IV TITR DEMIAN; Protocol Cefepime HCl (Cefepime/Ns 2 Gm/100 Ml) 2 gm in 100 mls @ 200 mls/hr IV Q24H DEMIAN; Protocol Last Admin: 07/31/21 13:53 Dose: 200 mls/hr Documented by: Insulin Human Lispro (Insulin Lispro 100 Unit/Ml) 0 unit SUB-Q Q6HR DEMIAN; Protocol Last Admin: 08/01/21 06:34 Dose: 4 unit Documented by: Magnesium Hydroxide (Magnesium Hydroxide (Mom) Oral Liqd Udc) 30 ml PO Q4H PRN PRN Reason: Constipation Methylprednisolone Sodium Succinate (Methylprednisolone Sod Succinate 40 Mg/1 Ml Inj) 40 mg IV Q8HR [facility] Last Admin: 08/01/21 06:33 Dose: 40 mg Documented by: Midazolam HCl (Midazolam 2 Mg/2 Ml Inj) 2 mg IV Q10MIN PRN PRN Reason: Sedation Multi-Ingred Cream/Lotion/Oil/Oint (Mineral Oil/Petrolatum, White Ophth Oint 3.5 Gm) 1 applic OU Q4HR PRN PRN Reason: Dry Eye(s) Ondansetron HCl (Ondansetron 4 Mg/2 Ml Inj) 4 mg IV Q8H PRN PRN Reason: Nausea And Vomiting Senna/Docusate Sodium (Sennosides/Docusate Sodium 8.6/50 Mg Tab) 1 tab FEEDTUBE BID [facility] Last Admin: 07/31/21 21:28 Dose: 1 tab Documented by: Simple Syrup (Simple Syrup 15 Ml) 15 ml FEEDTUBE PRN PRN PRN Reason: Hypoglycemia Simple Syrup (Simple Syrup 15 Ml) 30 ml FEEDTUBE PRN PRN PRN Reason: Hypoglycemia Sodium Bicarbonate (Sodium Bicarbonate 325 Mg Tab) 325 mg FEEDTUBE PRN PRN PRN Reason: For Clogged Feeding Tube Sodium Chloride (Sodium Chloride 0.9% 10 Ml Flush Syringe) 10 ml IV BID [facility] Last Admin: 08/01/21 06:34 Dose: 10 ml Documented by: Sodium Chloride (Sodium Chloride 0.9% 10 Ml Flush Syringe) 10 ml IV PRN PRN PRN Reason: LINE FLUSH Exam - Vital Signs Vital signs: Vital Signs Pulse Ox 100 07/27/21 22:27 Results - Lab Results 08/02/21 Unknown 08/02/21 Unknown Most recent lab results ABG pH 7.334 (7.320-7.450) 08/01/21 01:00 ABG O2 Saturation 95.2 (0-100) 08/01/21 01:00 Calcium 8.7 mg/dL (8.4-10.2) 08/01/21 05:50
[2021-08-01] MEDS: FAMOTIDINE 20 MG/2 ML INJ IV SCH ×2 (09:33→22:01)
[2021-08-01] MEDS: SENNOSIDES/DOCUSATE SODIUM 8.6/50 MG TAB FEEDTUBE SCH ×2 (09:33→22:00)
[2021-08-01] MEDS: ENOXAPARIN 100 MG/1 ML INJ SUB-Q SCH (09:33)
--- NOTE | 2021-08-01 11:42 | Progress Note ---
Assessment and Plan Acute hypoxemic respiratory failure secondary Lung Mass (? Lung vs Breast CA) Acute COPD exacerbation Possible hypercapnia History of right breast cancer Leukocytosis DM II Hypertension Hyperlipidemia Tobacco use disorder - will do inspection bronchoscopy once stable and hopefully get some washes (tentatively tomorrow) - add Seroquel to spare IV sedatives - continue full anticoagulation for VTE - azotemia improving; appreciate nephrology input - continue care as below otherwise; - continue daily SAT and SBT assessment as tolerated - continue to wean supplemental oxygen for target O2 sat's > 90% acutely - VAP bundle addressed - continue lung protective strategies - continue bronchodilators (GLADIS & LABA) with pulmonary hygiene per RT - wean per pulmonary driven protocols otherwise - continue accuchecks with glycemic control per SSI (While critically ill target blood glucose of 140-180 mg/dL; avoid hypoglycemia) - sedation prn for target RASS 0 to -1 - avoid nephrotoxins, renally dose all medications - continue to avoid benzodiazepine's, reduce the possibility of delirium - complete AB's per ID rec's - prn analgesia per CPOT score - Maintenance of sleep-wake cycle, avoid delirium - enteral nutritional support at goal rate as tolerated - G.I. & VTE prophylaxis - PT/OT/ROM exercises - continue mobility protocols for pressure ulcer prophylaxis - Monitor hemodynamics closely - continue other care per attending / other consultants - discharge planning ongoing concurrently COVID SPECIFIC INTERVENTIONS - test result pending .... Re-evaluate in am & prn CONDITION: CRITICAL PROGNOSIS: GUARDED CODE STATUS: FULL CODE The high probability of a clinically significant, sudden or life-threatening deterioration of the [respiratory, cardiovascular, oncological & neurologic] system(s) required my full and direct attention, intervention and personal management. The aggregate critical care time was [33] minutes without overlap. Time includes spent on; [x] Data Review and interpretation [x] Patient assessment and monitoring of vital signs [x] Documentation [x] Medication orders and management Subjective Date of service: 08/01/21 Principal diagnosis: Ac hypoxemic resp failure ; AE-COPD; H/O CA Breast; DM II; HTN Interval history: Patient is seen today for: Acute hypoxemic respiratory failure; AE-COPD; Possible hypercapnia; H/O CA Breast; DM II; HTN Seen and examined at bedside; 24hour events reviewed; nursing and respiratory care staff consulted; no adverse overnight events reported to me; resting in bed; remains on MVS; Failed SBT with severe agitation; now sedated; bronchoscopy postponed to tomorrow re: logistic's Objective Vital Signs - 12hr 07/31/21 08/01/21 08/01/21 23:51 00:00 00:11 Temperature 97.8 F Pulse Rate 80 79 82 Pulse Rate [ Anterior Bilateral] Pulse Rate [ 81 From Monitor] Respiratory 16 16 16 Rate Respiratory Rate [Anterior Bilateral] Blood Pressure 134/76 134/81 134/81 O2 Sat by Pulse 97 90 97 Oximetry 08/01/21 08/01/21 08/01/21 00:21 00:30 00:41 Temperature Pulse Rate 83 81 80 Pulse Rate [ Anterior Bilateral] Pulse Rate [ From Monitor] Respiratory 15 16 16 Rate Respiratory Rate [Anterior Bilateral] Blood Pressure 134/81 131/80 131/80 O2 Sat by Pulse 98 91 97 Oximetry 08/01/21 08/01/21 08/01/21 00:51 01:00 01:11 Temperature Pulse Rate 78 79 79 Pulse Rate [ Anterior Bilateral] Pulse Rate [ From Monitor] Respiratory 16 16 16 Rate Respiratory Rate [Anterior Bilateral] Blood Pressure 131/80 133/78 133/78 O2 Sat by Pulse 97 90 97 Oximetry 08/01/21 08/01/21 08/01/21 01:21 01:30 01:41 Temperature Pulse Rate 78 81 78 Pulse Rate [ Anterior Bilateral] Pulse Rate [ From Monitor] Respiratory 16 16 16 Rate Respiratory Rate [Anterior Bilateral] Blood Pressure 133/78 134/78 134/78 O2 Sat by Pulse 97 91 98 Oximetry 08/01/21 08/01/21 08/01/21 01:51 02:00 02:11 Temperature Pulse Rate 80 81 86 Pulse Rate [ Anterior Bilateral] Pulse Rate [ From Monitor] Respiratory 16 16 8 L Rate Respiratory Rate [Anterior Bilateral] Blood Pressure 134/78 140/81 134/78 O2 Sat by Pulse 97 91 93 Oximetry 08/01/21 08/01/21 08/01/21 02:21 02:31 02:41 Temperature Pulse Rate 101 H 100 H 97 H Pulse Rate [ Anterior Bilateral] Pulse Rate [ From Monitor] Respiratory 18 16 16 Rate Respiratory Rate [Anterior Bilateral] Blood Pressure 134/78 157/89 157/89 O2 Sat by Pulse 96 90 96 Oximetry 08/01/21 08/01/21 08/01/21 02:51 03:00 03:11 Temperature Pulse Rate 94 H 90 89 Pulse Rate [ Anterior Bilateral] Pulse Rate [ From Monitor] Respiratory 16 16 16 Rate Respiratory Rate [Anterior Bilateral] Blood Pressure 157/89 142/87 157/89 O2 Sat by Pulse 95 92 96 Oximetry 08/01/21 08/01/21 08/01/21 03:21 03:30 03:41 Temperature Pulse Rate 85 85 83 Pulse Rate [ Anterior Bilateral] Pulse Rate [ From Monitor] Respiratory 16 16 16 Rate Respiratory Rate [Anterior Bilateral] Blood Pressure 157/89 135/85 135/85 O2 Sat by Pulse 96 92 97 Oximetry 08/01/21 08/01/21 08/01/21 03:51 04:00 04:08 Temperature 97.6 F Pulse Rate 82 81 79 Pulse Rate [ Anterior Bilateral] Pulse Rate [ From Monitor] Respiratory 15 16 Rate Respiratory Rate [Anterior Bilateral] Blood Pressure 135/85 144/80 144/80 O2 Sat by Pulse 97 93 97 Oximetry 08/01/21 08/01/21 08/01/21 04:11 04:21 04:30 Temperature Pulse Rate 79 81 79 Pulse Rate [ Anterior Bilateral] Pulse Rate [ From Monitor] Respiratory 16 16 16 Rate Respiratory Rate [Anterior Bilateral] Blood Pressure 144/80 144/80 139/84 O2 Sat by Pulse 96 97 89 Oximetry 08/01/21 08/01/21 08/01/21 04:41 04:51 05:00 Temperature Pulse Rate 78 78 78 Pulse Rate [ Anterior Bilateral] Pulse Rate [ From Monitor] Respiratory 16 16 16 Rate Respiratory Rate [Anterior Bilateral] Blood Pressure 144/80 144/80 140/84 O2 Sat by Pulse 96 96 91 Oximetry 08/01/21 08/01/21 08/01/21 05:11 05:21 05:30 Temperature Pulse Rate 77 77 80 Pulse Rate [ Anterior Bilateral] Pulse Rate [ From Monitor] Respiratory 16 16 16 Rate Respiratory Rate [Anterior Bilateral] Blood Pressure 140/84 140/84 152/87 O2 Sat by Pulse 96 97 91 Oximetry 08/01/21 08/01/21 08/01/21 05:41 05:51 06:00 Temperature Pulse Rate 77 78 76 Pulse Rate [ Anterior Bilateral] Pulse Rate [ From Monitor] Respiratory 16 16 16 Rate Respiratory Rate [Anterior Bilateral] Blood Pressure 152/87 152/87 140/84 O2 Sat by Pulse 97 97 92 Oximetry 08/01/21 08/01/21 08/01/21 06:11 06:21 06:30 Temperature Pulse Rate 76 75 75 Pulse Rate [ Anterior Bilateral] Pulse Rate [ From Monitor] Respiratory 16 16 16 Rate Respiratory Rate [Anterior Bilateral] Blood Pressure 152/87 152/87 130/78 O2 Sat by Pulse 97 98 93 Oximetry 08/01/21 08/01/21 08/01/21 06:41 06:51 07:00 Temperature Pulse Rate 74 73 73 Pulse Rate [ Anterior Bilateral] Pulse Rate [ From Monitor] Respiratory 16 16 16 Rate Respiratory Rate [Anterior Bilateral] Blood Pressure 140/84 140/84 144/80 O2 Sat by Pulse 98 98 94 Oximetry 08/01/21 08/01/21 08/01/21 07:11 07:21 07:30 Temperature Pulse Rate 72 73 73 Pulse Rate [ Anterior Bilateral] Pulse Rate [ From Monitor] Respiratory 16 16 16 Rate Respiratory Rate [Anterior Bilateral] Blood Pressure 130/78 130/78 149/79 O2 Sat by Pulse 97 98 94 Oximetry 08/01/21 08/01/21 08/01/21 07:41 07:51 08:00 Temperature 97.6 F Pulse Rate 73 71 73 Pulse Rate [ Anterior Bilateral] Pulse Rate [ From Monitor] Respiratory 16 16 16 Rate Respiratory Rate [Anterior Bilateral] Blood Pressure 144/80 144/80 148/84 O2 Sat by Pulse 98 98 96 Oximetry 08/01/21 08/01/21 08/01/21 08:05 08:11 08:12 Temperature Pulse Rate 73 77 74 Pulse Rate [ 74 Anterior Bilateral] Pulse Rate [ From Monitor] Respiratory 16 Rate Respiratory 16 Rate [Anterior Bilateral] Blood Pressure 137/89 148/84 O2 Sat by Pulse 98 99 Oximetry 08/01/21 08/01/21 08/01/21 08:21 08:31 08:41 Temperature Pulse Rate 74 74 76 Pulse Rate [ Anterior Bilateral] Pulse Rate [ From Monitor] Respiratory 16 16 16 Rate Respiratory Rate [Anterior Bilateral] Blood Pressure 148/84 160/82 160/82 O2 Sat by Pulse 98 95 100 Oximetry 08/01/21 08/01/21 08/01/21 08:51 09:00 09:11 Temperature Pulse Rate 75 79 80 Pulse Rate [ Anterior Bilateral] Pulse Rate [ From Monitor] Respiratory 16 15 16 Rate Respiratory Rate [Anterior Bilateral] Blood Pressure 148/84 158/79 158/79 O2 Sat by Pulse 100 97 98 Oximetry 08/01/21 08/01/21 08/01/21 09:21 09:30 09:41 Temperature Pulse Rate 82 81 83 Pulse Rate [ Anterior Bilateral] Pulse Rate [ From Monitor] Respiratory 16 16 16 Rate Respiratory Rate [Anterior Bilateral] Blood Pressure 158/79 148/82 148/82 O2 Sat by Pulse 99 97 97 Oximetry 08/01/21 08/01/21 08/01/21 09:51 10:00 10:11 Temperature Pulse Rate 82 82 81 Pulse Rate [ Anterior Bilateral] Pulse Rate [ From Monitor] Respiratory 16 16 16 Rate Respiratory Rate [Anterior Bilateral] Blood Pressure 148/82 152/89 152/89 O2 Sat by Pulse 96 91 94 Oximetry 08/01/21 08/01/21 10:21 11:29 Temperature Pulse Rate 86 82 Pulse Rate [ Anterior Bilateral] Pulse Rate [ From Monitor] Respiratory 16 Rate Respiratory Rate [Anterior Bilateral] Blood Pressure 152/89 148/87 O2 Sat by Pulse 94 99 Oximetry Constitutional: no acute distress, other (eldely obese female with mildy increased respiratory effort at rest on MVS) Eyes: non-icteric ENT: oropharynx moist, other (ETT 24 cm [place]) Neck: supple, no lymphadenopathy, no JVD Effort: mildly labored Ascultation: Bilateral: wheezes (central), rhonchi Percussion: Bilateral: not dull Cardiovascular: regular rate and rhythm Gastrointestinal: normoactive bowel sounds, soft, non-tender, non-distended Integumentary: normal Extremities: no cyanosis, no edema, pulses normal, no ischemia or petechiae Neurologic: normal mental status, non-focal exam, pupils equal and round, CN II- XII normal Psychiatric: mood appropriate, affect normal CBC and BMP: 08/01/21 05:50 08/01/21 05:50 ABG, PT/INR, D-dimer: ABG ABG pH 7.334 (7.320-7.450) 08/01/21 01:00 POC ABG pCO2 47.3 mmHg (32.0-48.0) 08/01/21 01:00 POC ABG pO2 86.0 mmHg (83-108) 08/01/21 01:00 POC ABG HCO3 24.6 08/01/21 01:00 ABG O2 Saturation 95.2 (0-100) 08/01/21 01:00 PT/INR, D-dimer PT 14.0 Sec. (12.2-14.9) 07/29/21 04:44 INR 1.03 (0.87-1.13) 07/29/21 04:44 D-Dimer 852.47 ng/mlDDU (0-234) H 07/29/21 07:17 Abnormal lab findings: Abnormal Labs 07/27/21 07/27/21 07/27/21 22:57 22:57 22:57 WBC 20.3 H Hct RDW Seg Neuts % (Manual) 89.0 H Lymphocytes % (Manual) 9.0 L Seg Neutrophils # Man 18.1 H Lymphocytes # (Manual) Monocytes # (Manual) D-Dimer ABG pH POC ABG pCO2 POC ABG pO2 ABG Oxyhemoglobin ABG Sodium ABG Potassium ABG Glucose Carboxyhemoglobin Potassium 3.5 L Chloride 96.9 L Carbon Dioxide 20 L BUN 19 H Creatinine Glucose 204 H POC Glucose Lactic Acid 7.20 H* AST 98 H ALT 90 H Arterial Blood Glucose Arterial Blood Ionized Calcium 07/28/21 07/28/21 07/28/21 01:31 07:49 10:00 WBC Hct RDW Seg Neuts % (Manual) Lymphocytes % (Manual) Seg Neutrophils # Man Lymphocytes # (Manual) Monocytes # (Manual) D-Dimer ABG pH POC ABG pCO2 POC ABG pO2 ABG Oxyhemoglobin ABG Sodium ABG Potassium ABG Glucose Carboxyhemoglobin Potassium Chloride Carbon Dioxide BUN Creatinine Glucose POC Glucose 194 H Lactic Acid 6.90 H* 6.70 H* AST ALT Arterial Blood Glucose Arterial Blood Ionized Calcium 07/28/21 07/28/21 07/28/21 12:41 13:21 16:21 WBC Hct RDW Seg Neuts % (Manual) Lymphocytes % (Manual) Seg Neutrophils # Man Lymphocytes # (Manual) Monocytes # (Manual) D-Dimer ABG pH POC ABG pCO2 POC ABG pO2 ABG Oxyhemoglobin ABG Sodium ABG Potassium ABG Glucose Carboxyhemoglobin Potassium Chloride Carbon Dioxide BUN Creatinine Glucose POC Glucose 159 H 155 H Lactic Acid 6.10 H* AST ALT Arterial Blood Glucose Arterial Blood Ionized Calcium 07/28/21 07/29/21 07/29/21 22:03 04:44 04:44 WBC 17.0 H Hct RDW Seg Neuts % (Manual) 82.0 H Lymphocytes % (Manual) 11.0 L Seg Neutrophils # Man 13.9 H Lymphocytes # (Manual) Monocytes # (Manual) 1.0 H D-Dimer ABG pH POC ABG pCO2 POC ABG pO2 ABG Oxyhemoglobin ABG Sodium ABG Potassium ABG Glucose Carboxyhemoglobin Potassium Chloride Carbon Dioxide BUN 23 H Creatinine Glucose 196 H POC Glucose 187 H Lactic Acid AST ALT Arterial Blood Glucose Arterial Blood Ionized Calcium 07/29/21 07/29/21 07/29/21 06:56 07:17 07:17 WBC 26.1 H Hct 43.3 H RDW 16.0 H Seg Neuts % (Manual) 80.0 H Lymphocytes % (Manual) Seg Neutrophils # Man 20.9 H Lymphocytes # (Manual) Monocytes # (Manual) D-Dimer ABG pH POC ABG pCO2 POC ABG pO2 ABG Oxyhemoglobin ABG Sodium ABG Potassium ABG Glucose Carboxyhemoglobin Potassium Chloride Carbon Dioxide 20 L D BUN 23 H Creatinine Glucose 308 H POC Glucose 165 H Lactic Acid AST ALT Arterial Blood Glucose Arterial Blood Ionized Calcium 07/29/21 07/29/21 07/29/21 07:17 09:16 10:30 WBC Hct RDW Seg Neuts % (Manual) Lymphocytes % (Manual) Seg Neutrophils # Man Lymphocytes # (Manual) Monocytes # (Manual) D-Dimer 852.47 H ABG pH 7.236 L POC ABG pCO2 56.0 H POC ABG pO2 266.4 H ABG Oxyhemoglobin 99.1 H ABG Sodium 132.3 L ABG Potassium 4.9 H ABG Glucose 202 H Carboxyhemoglobin 0.2 L Potassium Chloride Carbon Dioxide BUN Creatinine Glucose POC Glucose 271 H Lactic Acid AST ALT Arterial Blood Glucose 202 H Arterial Blood Ionized Calcium 07/29/21 07/29/21 07/30/21 17:54 23:32 05:08 WBC Hct RDW Seg Neuts % (Manual) Lymphocytes % (Manual) Seg Neutrophils # Man Lymphocytes # (Manual) Monocytes # (Manual) D-Dimer ABG pH POC ABG pCO2 POC ABG pO2 ABG Oxyhemoglobin ABG Sodium ABG Potassium ABG Glucose Carboxyhemoglobin Potassium Chloride Carbon Dioxide BUN Creatinine Glucose POC Glucose 168 H 205 H 214 H Lactic Acid AST ALT Arterial Blood Glucose Arterial Blood Ionized Calcium 07/30/21 07/30/21 07/30/21 06:01 11:32 17:34 WBC Hct RDW Seg Neuts % (Manual) Lymphocytes % (Manual) Seg Neutrophils # Man Lymphocytes # (Manual) Monocytes # (Manual) D-Dimer ABG pH 7.480 H POC ABG pCO2 23.6 L POC ABG pO2 280.0 H ABG Oxyhemoglobin 99.3 H ABG Sodium 133.7 L ABG Potassium ABG Glucose 232 H Carboxyhemoglobin 0 L Potassium Chloride Carbon Dioxide BUN Creatinine Glucose POC Glucose 207 H 239 H Lactic Acid AST ALT Arterial Blood Glucose 232 H Arterial Blood Ionized Calcium 4.4 L 07/30/21 07/31/21 07/31/21 23:39 03:34 04:45 WBC 15.0 H Hct RDW 15.5 H Seg Neuts % (Manual) 89.0 H Lymphocytes % (Manual) 7.0 L Seg Neutrophils # Man 13.4 H Lymphocytes # (Manual) 1.1 L Monocytes # (Manual) D-Dimer ABG pH 7.481 H POC ABG pCO2 31.8 L POC ABG pO2 ABG Oxyhemoglobin ABG Sodium 135.2 L ABG Potassium 3.3 L ABG Glucose 188 H Carboxyhemoglobin 0.1 L Potassium Chloride Carbon Dioxide BUN Creatinine Glucose POC Glucose 176 H Lactic Acid AST ALT Arterial Blood Glucose 188 H Arterial Blood Ionized Calcium 4.4 L 07/31/21 07/31/21 07/31/21 04:45 04:45 11:28 WBC Hct RDW Seg Neuts % (Manual) Lymphocytes % (Manual) Seg Neutrophils # Man Lymphocytes # (Manual) Monocytes # (Manual) D-Dimer ABG pH POC ABG pCO2 POC ABG pO2 ABG Oxyhemoglobin ABG Sodium ABG Potassium ABG Glucose Carboxyhemoglobin Potassium 3.4 L Chloride Carbon Dioxide BUN 61 H Creatinine 2.6 H D Glucose 176 H POC Glucose 195 H 245 H Lactic Acid AST ALT Arterial Blood Glucose Arterial Blood Ionized Calcium 07/31/21 07/31/21 08/01/21 17:32 23:58 01:00 WBC Hct RDW Seg Neuts % (Manual) Lymphocytes % (Manual) Seg Neutrophils # Man Lymphocytes # (Manual) Monocytes # (Manual) D-Dimer ABG pH POC ABG pCO2 POC ABG pO2 ABG Oxyhemoglobin ABG Sodium ABG Potassium ABG Glucose 284 H Carboxyhemoglobin 0.3 L Potassium Chloride Carbon Dioxide BUN Creatinine Glucose POC Glucose 251 H 294 H Lactic Acid AST ALT Arterial Blood Glucose 284 H Arterial Blood Ionized Calcium 08/01/21 08/01/21 08/01/21 05:50 05:50 06:11 WBC 16.2 H Hct RDW 15.5 H Seg Neuts % (Manual) Lymphocytes % (Manual) Seg Neutrophils # Man Lymphocytes # (Manual) Monocytes # (Manual) D-Dimer ABG pH POC ABG pCO2 POC ABG pO2 ABG Oxyhemoglobin ABG Sodium ABG Potassium ABG Glucose Carboxyhemoglobin Potassium Chloride Carbon Dioxide BUN 64 H Creatinine 1.9 H Glucose 277 H POC Glucose 256 H Lactic Acid AST ALT Arterial Blood Glucose Arterial Blood Ionized Calcium 08/01/21 11:39 WBC Hct RDW Seg Neuts % (Manual) Lymphocytes % (Manual) Seg Neutrophils # Man Lymphocytes # (Manual) Monocytes # (Manual) D-Dimer ABG pH POC ABG pCO2 POC ABG pO2 ABG Oxyhemoglobin ABG Sodium ABG Potassium ABG Glucose Carboxyhemoglobin Potassium Chloride Carbon Dioxide BUN Creatinine Glucose POC Glucose 289 H Lactic Acid AST ALT Arterial Blood Glucose Arterial Blood Ionized Calcium Chest x-ray: image reviewed (no changes) Allied health notes reviewed: nursing
--- NOTE | 2021-08-01 13:55 | Electrocardiograph Report ---
[facility] Test Date: 2021-07-27 Test Time: 22:18:37 Pat Name: JAXON MARTI Department: Room: A261 Gender: F Manager Technical Sales: RK : 1955 Requested By: RIGO RODRIGUEZ Order Number: [id number] Reading MD: Rakesh Mercedes Measurements Intervals [place] Rate: 126 P: 72 SC: 138 QRS: 29 QRSD: 87 T: 91 QT: 291 QTc: 422 Interpretive Statements Sinus tachycardia No previous ECG available for comparison Electronically Signed On 08-01-2021 13:54:49 EDT by Rakesh Mercedes
[2021-08-01] MEDS: CEFEPIME/NS 2 GM/100 ML 2 GM/100 ML BAG IV SCH (14:00)
[2021-08-01 14:19] LABS: Creatinine,Urine 125.6 mg/dL (0.1-20.0)
[2021-08-01 15:48] LABS: Total Cells Counted 100
[2021-08-01 15:49] LABS: Myelocytes # (Manual) 0.2 K/mm3; Platelet Estimate Consistent w Auto; RBC Morphology Normal
--- NOTE | 2021-08-01 17:07 | Progress Note ---
Assessment and Plan Assessment and plan: This is a 66-year-old female with HTN, DM, HLD and COPD admitted for acute hypoxic respiratory failure, COPD exacerbation, pneumonia and left lower leg DVT Neuro: Acute metabolic encephalopathy -Sedated with Versed and fentanyl -RASS goal 0 to -1 -Added Seroquel -Avoid delirium -Reorientation as needed -Bilateral restraints for safety Cardio: h/o HTN, s/p cardiac arrest, h/o HLD -Echocardiogram completed-> EF 50 to 55% with mild diastolic dysfunction -Blood pressure monitor per protocol -Patient had cardiac arrest on 07/29 and was intubated -Antihypertensives prn Respiratory: Acute hypoxic respiratory failure, COPD extubation -CCM consulted, appreciate recommendations -VAP bundle -Daily SBT and SAT trials -Patient became hypotensive and tachypneic with SBT trial today -A.m. vent settings: Assist control tidal volume 400, rate 20, PEEP of 8, 30% FiO2 -Intubated with 7.50 ETT at 22 at the lips on 07/29 -Daily ABG and CXR -Continue SPO2 monitoring -Solu-Medrol GI: MO -NTR consult for tube feeding -BR: Senokot -24-hour net +[phone] -PPI : WYATT likely 2/2 vasomotor nephropathy -Nephrology consulted, appreciate recommendations -Presented with a BUN/creatinine of 1.9/19 but up trended to 2.6/61 on 07/31 -Urine lites pending -Strict intake and output -Avoid nephrotoxic medications -Renally dose medications -Elizabeth in place ID: Acute sepsis, pneumonia -Infectious disease consulted patient recommendations -ABX therapy: Cefepime -07/27 BC x2 with no growth after 4 days -07/29 tracheal aspirate with no growth -Monitor CBCs and fever curve Heme: Left lower leg DVT, leukocytosis -Patient is on Lovenox -SCDs to bilateral lower extremities while in bed -Trend CBC -evidenced on BLE US Oncology: h/o breast cancer, Lung mass -CXR shows suspicious nodular density at the left base -Bronchoscopy planned for a.m. -Heme/oncology consulted, appreciate recommendations -Heme/oncology recommends biopsy -CEA, CA 153, CA 2729 pending Endo: h/o DM -SSI -Avoid hypoglycemia -Lantus The high probability of a clinically significant, sudden or life threatening deterioration of the [multi] system(s) required my full and direct attention, intervention and personal management. The aggregate critical care time was [60] minutes. This time is in addition to time spent performing reported procedures but includes the following: [x] Data Review and interpretation [x] Patient assessment and monitoring of vital signs [x] Documentation [x] Medication orders and management Disposition Plan: icu Total Time Spent with Patient (Minutes): 60 History Interval history: This is a 66-year-old female with HTN, DM, HLD and COPD who presented to emergency department on 07/28 with complaints of difficulty in breathing ongoing for the past few days via EMS. En route she was given Solu-Medrol IV magnesium and albuterol nebulizing treatment. Upon arrival to emergency department patient had multiple rounds of embolizing treatments and was subsequently placed on BiPAP with some improvement. Patient has been fully vaccinated. Work-up in the emergency department revealed CXR suspicious for right-sided pneumonia, nodular density in the left base and increased interstitial markings which may be chronic. Patient was admitted to the hospitalist service with electrolyte imbalances, leukocytosis, COPD exacerbation, hypoxia and possible pneumonia. 07/29/2021. Patient seen this morning with Shabbir-Chavira respiration/agonal breathing. CODE BLUE was called and patient was intubated and placed on mechanical ventilation. Patient transferred to ICU. Critical care/pulmonary consulted. Patient currently with AC mode rate of 30, FiO2 100%, PEEP of 12. Continue IV antibiotics. Consult ID and oncology for further evaluation. Patient will likely need bronchoscopy for further evaluation of the lung mass. Doppler ultrasound revealedLLE DVT. Start anticoagulation. 07/30/2021. Patient appears much improved and more responsive this morning. Patient currently with AC mode ventilation rate of 24, tidal volume 450, PEEP of 8 and FiO2 35%. Spontaneous breathing trials with possible extubation today per pulmonary. Bronchoscopy per pulmonary. Continue Lovenox twice daily for DVT. Continue IV antibiotics for sepsis/pneumonia. ID consultation pending. Follow-up CEA, CA 15-3, CA 2729. 07/31/2021. Echocardiogram reveals left ventricular size and function are normal. EF 50 to 55% with mild diastolic dysfunction. Patient currently with CPAP/PSV trial 11/02. Anticipate extubation today per pulmonary. Bronchoscopy per pulmonary. Continue Lovenox twice daily for DVT. Continue IV antibiotics for sepsis/pneumonia. ID consultation pending. Follow-up CEA, CA 15-3, CA 2729. Hospitalist Physical - Constitutional Vitals: Temp Pulse Resp BP Pulse Ox 98.2 F 87 16 126/73 97 08/01/21 12:00 08/01/21 16:21 08/01/21 16:21 08/01/21 16:21 08/01/21 16:21 General appearance: Present: no acute distress, well-nourished - EENT Eyes: Present: PERRL, EOM intact ENT: hearing intact - Neck Neck: Present: normal ROM - Respiratory Respiratory effort: normal Respiratory: bilateral: diminished, rhonchi - Cardiovascular Rhythm: regular Heart Sounds: Present: S1 & S2. Absent: systolic murmur, diastolic murmur - Extremities Extremities: no ischemia, pulses intact, pulses symmetrical, No edema, normal te mperature, normal color Peripheral Pulses: within normal limits - Abdominal General gastrointestinal: soft, non-tender, non-distended, normal bowel sounds - Integumentary Integumentary: Present: clear, warm, dry - Psychiatric Psychiatric: cooperative - Neurologic Neurologic: CNII-XII intact, moves all extremities - Allied Health Allied health notes reviewed: nursing, social work Results - Labs CBC & Chem 7: 08/01/21 05:50 08/01/21 05:50 Labs: Laboratory Last Values WBC 16.2 K/mm3 (4.5-11.0) H 08/01/21 05:50 RBC 3.95 M/mm3 (3.65-5.03) 08/01/21 05:50 Hgb 11.6 gm/dl (10.1-14.3) 08/01/21 05:50 Hct 34.3 % (30.3-42.9) 08/01/21 05:50 MCV 87 fl (79-97) 08/01/21 05:50 MCH 29 pg (28-32) 08/01/21 05:50 MCHC 34 % (30-34) 08/01/21 05:50 RDW 15.5 % (13.2-15.2) H 08/01/21 05:50 Plt Count 238 K/mm3 (140-440) 08/01/21 05:50 Add Manual Diff Complete 08/01/21 05:50 Total Counted 100 08/01/21 05:50 Seg Neutrophils % Shear Assembler 08/01/21 05:50 Seg Neuts % (Manual) 93.0 % (40.0-70.0) H 08/01/21 05:50 Band Neutrophils % 1.0 % 07/31/21 04:45 Lymphocytes % (Manual) 2.0 % (13.4-35.0) L 08/01/21 05:50 Monocytes % (Manual) 3.0 % (0.0-7.3) 08/01/21 05:50 Metamyelocytes % 1.0 % 08/01/21 05:50 Myelocytes % 1.0 % 08/01/21 05:50 Nucleated RBC % 3.0 % (0.0-0.9) H 08/01/21 05:50 Seg Neutrophils # Man 15.1 K/mm3 (1.8-7.7) H 08/01/21 05:50 Band Neutrophils # 0.0 K/mm3 08/01/21 05:50 Lymphocytes # (Manual) 0.3 K/mm3 (1.2-5.4) L 08/01/21 05:50 Abs React Lymphs (Man) 0.0 K/mm3 08/01/21 05:50 Monocytes # (Manual) 0.5 K/mm3 (0.0-0.8) 08/01/21 05:50 Eosinophils # (Manual) 0.0 K/mm3 (0.0-0.4) 08/01/21 05:50 Basophils # (Manual) 0.0 K/mm3 (0.0-0.1) 08/01/21 05:50 Metamyelocytes # 0.2 K/mm3 08/01/21 05:50 Myelocytes # 0.2 K/mm3 08/01/21 05:50 Promyelocytes # 0.0 K/mm3 08/01/21 05:50 Blast Cells # 0.0 K/mm3 08/01/21 05:50 WBC Morphology Not Reportable 08/01/21 05:50 Hypersegmented Neuts Not Reportable 08/01/21 05:50 Hyposegmented Neuts Not Reportable 08/01/21 05:50 Hypogranular Neuts Not Reportable 08/01/21 05:50 Smudge Cells Not Reportable 08/01/21 05:50 Toxic Granulation Not Reportable 08/01/21 05:50 Toxic Vacuolation Not Reportable 08/01/21 05:50 Dohle Bodies Not Reportable 08/01/21 05:50 Pelger-Huet Anomaly Not Reportable 08/01/21 05:50 Beryl Rods Not Reportable 08/01/21 05:50 Platelet Estimate Consistent w auto 08/01/21 05:50 Clumped Platelets Not Reportable 08/01/21 05:50 Plt Clumps, EDTA Not Reportable 08/01/21 05:50 Large Platelets Not Reportable 08/01/21 05:50 Giant Platelets Not Reportable 08/01/21 05:50 Platelet Satelliting Not Reportable 08/01/21 05:50 Plt Morphology Comment Not Reportable 08/01/21 05:50 RBC Morphology Normal 08/01/21 05:50 Dimorphic RBCs Not Reportable 08/01/21 05:50 Polychromasia Not Reportable 08/01/21 05:50 Hypochromasia Not Reportable 08/01/21 05:50 Poikilocytosis Not Reportable 08/01/21 05:50 Anisocytosis Not Reportable 08/01/21 05:50 Microcytosis Not Reportable 08/01/21 05:50 Macrocytosis Not Reportable 08/01/21 05:50 Spherocytes Not Reportable 08/01/21 05:50 Pappenheimer Bodies Not Reportable 08/01/21 05:50 Sickle Cells Not Reportable 08/01/21 05:50 Target Cells Not Reportable 08/01/21 05:50 Tear Drop Cells Not Reportable 08/01/21 05:50 Ovalocytes Not Reportable 08/01/21 05:50 Helmet Cells Not Reportable 08/01/21 05:50 [place] Bodies Not Reportable 08/01/21 05:50 Mora Rings Not Reportable 08/01/21 05:50 Estelita Cells Not Reportable 08/01/21 05:50 Bite Cells Not Reportable 08/01/21 05:50 Crenated Cell Not Reportable 08/01/21 05:50 Elliptocytes Not Reportable 08/01/21 05:50 Acanthocytes (Spur) Not Reportable 08/01/21 05:50 Rouleaux Not Reportable 08/01/21 05:50 Hemoglobin C Crystals Not Reportable 08/01/21 05:50 Schistocytes Not Reportable 08/01/21 05:50 Malaria parasites Not Reportable 08/01/21 05:50 Gurmeet Bodies Not Reportable 08/01/21 05:50 Hem Pathologist Commnt No 08/01/21 05:50 PT 14.0 Sec. (12.2-14.9) 07/29/21 04:44 INR 1.03 (0.87-1.13) 07/29/21 04:44 D-Dimer 852.47 ng/mlDDU (0-234) H 07/29/21 07:17 ABG pH 7.334 (7.320-7.450) 08/01/21 01:00 POC ABG pCO2 47.3 mmHg (32.0-48.0) 08/01/21 01:00 POC ABG pO2 86.0 mmHg (83-108) 08/01/21 01:00 POC ABG HCO3 24.6 08/01/21 01:00 ABG O2 Saturation 95.2 (0-100) 08/01/21 01:00 POC ABG Base Excess -1.6 08/01/21 01:00 ABG Hemoglobin 12.7 (12.0-17.5) 08/01/21 01:00 ABG Oxyhemoglobin 94.8 (94-98) 08/01/21 01:00 ABG Methemoglobin 0.1 (0.0-1.5) 08/01/21 01:00 ABG Sodium 138.0 mmol/L (136.0-145.0) 08/01/21 01:00 ABG Potassium 4.0 mmol/L (3.40-4.50) 08/01/21 01:00 ABG Chloride 103.0 mmol/L (98-107) 08/01/21 01:00 ABG Glucose 284 mg/dL (65-95) H 08/01/21 01:00 Carboxyhemoglobin 0.3 (0.5-1.5) L 08/01/21 01:00 FiO2 % 30.0 08/01/21 01:00 Sodium 140 mmol/L (137-145) 08/01/21 05:50 Potassium 4.1 mmol/L (3.6-5.0) D 08/01/21 05:50 Chloride 101.8 mmol/L (98-107) 08/01/21 05:50 Carbon Dioxide 28 mmol/L (22-30) 08/01/21 05:50 Anion Gap 14 mmol/L 08/01/21 05:50 BUN 64 mg/dL (7-17) H 08/01/21 05:50 Creatinine 1.9 mg/dL (0.6-1.2) H 08/01/21 05:50 Estimated GFR 32 ml/min 08/01/21 05:50 BUN/Creatinine Ratio 34 % 08/01/21 05:50 Glucose 277 mg/dL (65-100) H 08/01/21 05:50 POC Glucose 289 mg/dL (70-105) H 08/01/21 11:39 Lactic Acid 6.10 mmol/L (0.7-2.0) H* 07/28/21 13:21 Calcium 8.7 mg/dL (8.4-10.2) 08/01/21 05:50 Total Bilirubin 0.30 mg/dL (0.1-1.2) 07/27/21 22:57 AST 98 units/L (5-40) H 07/27/21 22:57 ALT 90 units/L (7-56) H 07/27/21 22:57 Alkaline Phosphatase 98 units/L (35-129) 07/27/21 22:57 Total Protein 8.0 g/dL (6.3-8.2) 07/27/21 22:57 Albumin 4.2 g/dL (3.9-5) 07/27/21 22:57 Albumin/Globulin Ratio 1.1 % 07/27/21 22:57 Arterial Blood Glucose 284 mg/dL (65-95) H 08/01/21 01:00 Arterial Blood Ionized Calcium 4.6 mg/dL (4.6-5.3) 08/01/21 01:00 Urine Creatinine 125.6 mg/dL (0.1-20.0) H 08/01/21 Unknown Urine Sodium 12 mmol/L 08/01/21 Unknown Coronavirus (PCR) Negative (Negative) 07/29/21 07:58 Microbiology: Microbiology 07/27/21 22:48 Peripheral/Venous Blood Culture - Preliminary NO GROWTH AFTER 4 DAYS 07/27/21 22:57 Peripheral/Venous Blood Culture - Preliminary NO GROWTH AFTER 4 DAYS Elizabeth/IV: Voiding Method Indwelling Catheter Active Medications - Current Medications Current Medications: Generic Name Dose Route Start Last Admin Trade Name Freq PRN Reason Stop Dose Admin Acetaminophen 650 mg 07/28/21 02:11 Acetaminophen 325 Mg Tab PO Q6H PRN Pain MILD(1-3)/Fever >100.5/GARCIA Albuterol/Ipratropium 1 ampul 07/28/21 14:00 08/01/21 13:12 Ipratropium/Albuterol Sulfate 3 Ml Ampul.Neb IH 1 ampul TID DEMIAN Administration Lipase/Protease/Amylase 1 each 07/29/21 13:01 Lipase 10,500/Protease 25,000/Amylase 43,750 (Units) Dr Campoverde FEEDTUBE PRN PRN For Clogged Feeding Tube Arformoterol Tartrate 15 mcg 07/28/21 20:00 08/01/21 08:05 Arformoterol 15 Mcg/2 Ml Nebu IH 15 mcg Q12HRT DEMIAN Administration Budesonide 0.5 mg 07/28/21 20:00 08/01/21 08:04 Budesonide 0.5 Mg/2 Ml Nebu IH 0.5 mg Q12HRT DEMIAN Administration Dextrose 50 ml 07/28/21 02:11 Dextrose 50% In Water (25gm) 50 Ml Syringe IV Q30MIN PRN Hypoglycemia Protocol Enoxaparin Sodium 100 mg 08/02/21 10:00 Enoxaparin 100 Mg/1 Ml Inj SUB-Q Q24H DEMIAN Protocol Famotidine 20 mg 07/29/21 22:00 08/01/21 09:33 Famotidine 20 Mg/2 Ml Inj IV 20 mg BID DEMIAN Administration Fentanyl 50 mcg 07/29/21 10:42 Fentanyl 100 Mcg/2 Ml Inj IV Q10MIN PRN ANALGESIA Hydralazine HCl 10 mg 07/30/21 14:52 Hydralazine 20 Mg/1 Ml Inj IV Q6H PRN SBP > 165 Hydrophilic Ointment 1 applic 07/29/21 10:42 Lip Therapy Vaseline TP Q2HR PRN Dry Lips Fentanyl Citrate 2,000 mcg in 100 mls @ 5.35 mls/hr 07/29/21 11:00 08/01/21 14:00 Fentanyl Drip Premix IV 2 mcg/kg/hr TITR DEMIAN 10.7 mls/hr Titration Protocol 1 MCG/KG/HR Midazolam HCl 100 mg/ Sodium 100 mls @ 2 mls/hr 07/29/21 11:00 08/01/21 08:15 Chloride IV 2 mg/hr TITR DEMIAN 2 mls/hr Titration Protocol 2 MG/HR Norepinephrine 4 mg in 250 mls @ 7.5 mls/hr 07/29/21 21:00 Levophed Drip 4 Mg/Ns 250 Ml IV TITR DEMIAN Protocol 2 MCG/MIN Cefepime HCl 2 gm in 100 mls @ 200 mls/hr 07/31/21 14:00 08/01/21 14:00 Cefepime/Ns 2 Gm/100 Ml IV 200 mls/hr Q24H DEMIAN Administration Protocol Insulin Glargine 10 units 08/01/21 22:00 Insulin Glargine 100 Units/Ml SUB-Q QHS DEMIAN Insulin Human Lispro 0 unit 07/29/21 12:00 08/01/21 11:56 Insulin Lispro 100 Unit/Ml SUB-Q 4 unit Q6HR DEMIAN Administration Protocol Magnesium Hydroxide 30 ml 07/28/21 02:11 Magnesium Hydroxide (Mom) Oral Liqd Udc PO Q4H PRN Constipation Methylprednisolone Sodium Succinate 40 mg 07/28/21 06:00 08/01/21 14:00 Methylprednisolone Sod Succinate 40 Mg/1 Ml Inj IV 40 mg Q8HR DEMIAN Administration Midazolam HCl 2 mg 07/29/21 10:42 Midazolam 2 Mg/2 Ml Inj IV Q10MIN PRN Sedation Multi-Ingred Cream/Lotion/Oil/Oint 1 applic 07/29/21 10:42 Mineral Oil/Petrolatum, White Ophth Oint 3.5 Gm OU Q4HR PRN Dry Eye(s) Ondansetron HCl 4 mg 07/28/21 02:11 Ondansetron 4 Mg/2 Ml Inj IV Q8H PRN Nausea And Vomiting Quetiapine Fumarate 200 mg 08/01/21 22:00 Quetiapine 200 Mg Tab PO BID DEMIAN Senna/Docusate Sodium 1 tab 07/29/21 22:00 08/01/21 09:33 Sennosides/Docusate Sodium 8.6/50 Mg Tab FEEDTUBE 1 tab BID DEMIAN Administration Simple Syrup 15 ml 07/29/21 13:01 Simple Syrup 15 Ml FEEDTUBE PRN PRN Hypoglycemia Simple Syrup 30 ml 07/29/21 13:01 Simple Syrup 15 Ml FEEDTUBE PRN PRN Hypoglycemia Sodium Bicarbonate 325 mg 07/29/21 13:01 Sodium Bicarbonate 325 Mg Tab FEEDTUBE PRN PRN For Clogged Feeding Tube Sodium Chloride 10 ml 07/28/21 10:00 08/01/21 09:33 Sodium Chloride 0.9% 10 Ml Flush Syringe IV 10 ml BID DEMIAN Administration Sodium Chloride 10 ml 07/28/21 02:05 Sodium Chloride 0.9% 10 Ml Flush Syringe IV PRN PRN LINE FLUSH Nutrition/Malnutrition Assess - Dietary Evaluation Nutrition/Malnutrition Findings: Nutrition Notes Start: 07/28/21 14:44 Freq: Status: Active Protocol: Document 07/29/21 12:47 (Rec: 07/29/21 13:01 JACKIE [id number]) Nutrition Notes Need for Assessment generated from: MD Order Initial or Follow up Assessment Current Diagnosis COPD,Diabetes,Hypertension, Respiratory Failure Other Pertinent Diagnosis pneu Current Diet Cardiac, Consistent CHO Labs/Tests BUN 23 BG 308 Pertinent Medications Solu Medrol Height 5 ft Weight 107 kg [place] Body Weight (kg) 45.45 BMI 46.0 Weight Status Morbidly Obese Subjective/Other Information MD consult for TF. Pt suffered code blue and is now on vent. Burn Absent Trauma Absent Current % PO Negligible Minimum of two criteria No #1 Nutrition Diagnosis Inadequate oral intake Etiology ARF As Evidenced by Signs and Symptoms pt on vent and unable to consume PO Is patient on ventilator? Yes Is Patient Ambulatory and/or Out of Bed No REE-([facility]-confined to bed) 1842.852 Kcal/Kg value to use for calculation 14 Approximate Energy Requirements Using 1498 kcal/Kg Calculation Used for Recommendations Kcal/kg Additional Notes Protein: (up to 2.5g/kg IBW) up to 134g Fluid: 1 ml/kcal or per MD Nutrition Intervention Change Diet Order: Start TF Nutrition Support: Vital AF 1.2 at 50 ml/hr Flush 75 ml q4h or per MD Kcal 1,440 Protein (gm) 90 Fluid (mL) 973 Goal #1 Meet at least 75% of protein and energy needs via TF Anticipated Discharge Needs: Unable to determine at this time Follow-Up By: 08/02/21 Additional Comments F/u: TF start and tolerance
[2021-08-01] MEDS ORDERED: INSULIN GLARGINE 100 UNITS/ML SUB-Q SCH (22:00)
[2021-08-01] MEDS: QUEtiapine 200 MG TAB PO SCH (22:01)
[2021-08-02] MEDS: INSULIN LISPRO 100 UNIT/ML SUB-Q SCH ×5 (00:02→23:37)
--- NOTE | 2021-08-02 04:57 | XRay Report ---
CHEST 1 VIEW INDICATION: follow up respiratory failure. COMPARISON: One day prior. FINDINGS: Support devices: The distal left PICC is slightly angled, this may have flipped into the azygos. Othe rwise unchanged. Heart: Stable. Lungs/Pleura: Stable pulmonary opacities. No pneumothorax. IMPRESSION: 1. Left PICC may have flipped into the azygos. Otherwise no change. Signer Name: Elvis Farrell MD Signed: 08/02/2021 4:53 AM Workstation Name: [id number]
[2021-08-02] MEDS: methylPREDNISolone Sod Succinate 40 MG/1 ML INJ IV SCH ×3 (05:34→21:47)
[2021-08-02 05:56] LABS: Basophils % (Auto) 0.1 % (0.0-1.8); Hematocrit 33.4 % (30.3-42.9); Hemoglobin 11.1 gm/dl (10.1-14.3); Lymphocytes # (Auto) 0.7 K/mm3 (1.2-5.4); Lymphocytes % (Auto) 5.1 % (13.4-35.0); Mean Corpuscular HGB Conc 33 % (30-34); Mean Corpuscular Volume 88 fl (79-97); Monocytes # (Auto) 0.9 K/mm3 (0.0-0.8); Monocytes % (Auto) 6.1 % (0.0-7.3); Platelet Count 229 K/mm3 (140-440); Red Blood Count 3.79 M/mm3 (3.65-5.03); Red Cell Distribution Width 16.3 % (13.2-15.2)
[2021-08-02 06:13] LABS: Calcium 8.8 mg/dL (8.4-10.2)
[2021-08-02] MEDS: fentaNYL DRIP Premix 2,000 MCG/100 ML BAG IV SCH ×2 (07:42→23:15)
[2021-08-02] MEDS: BUDESONIDE 0.5 MG/2 ML NEBU IH SCH (08:23)
[2021-08-02] MEDS: ARFORMOTEROL 15 MCG/2 ML NEBU IH SCH ×2 (08:23→20:34)
[2021-08-02] MEDS: IPRATROPIUM/ALBUTEROL SULFATE 3 ML AMPUL.NEB IH SCH ×3 (08:23→20:34)
[2021-08-02] MEDS: FAMOTIDINE 20 MG/2 ML INJ IV SCH ×2 (10:10→21:48)
[2021-08-02] MEDS: ENOXAPARIN 100 MG/1 ML INJ SUB-Q SCH (10:12)
--- NOTE | 2021-08-02 10:15 | Progress Note ---
Assessment and Plan Impression * Acute kidney injury * Respiratory failure * Pulmonary infiltrates * History of breast cancer. Mcgrath to be metastatic with mediastinal and lung masses Recommendations * Acute kidney injury most likely prerenal. Fractional excretion of sodium is 0.13%. * Shall check a UA as well as a renal ultrasound * Check vasculitis work-up as well given pulmonary infiltrates * Vent management as per ICU team * Patient is currently nonoliguric. Continue IV hydration * Avoid nephrotoxins * Monitor fluid status and electrolytes closely * No indication for renal replacement therapy at this time Subjective Date of service: 08/02/21 Principal diagnosis: Ac hypoxemic resp failure ; AE-COPD; H/O CA Breast; DM II; HTN Interval history: Patient is currently on the ventilator. On 30% FiO2. Oxygen saturation is 100%. Elizabeth catheter in place. Objective - Vital Signs Vital signs: Vital Signs - 12hr 08/01/21 08/01/21 08/01/21 22:21 22:30 22:41 Temperature Pulse Rate 84 90 90 Pulse Rate [ Anterior Bilateral] Pulse Rate [ 85 From Monitor] Respiratory 16 16 16 Rate Respiratory Rate [Anterior Bilateral] Blood Pressure 136/68 141/73 141/73 O2 Sat by Pulse 98 95 98 Oximetry 08/01/21 08/01/21 08/01/21 22:51 23:00 23:11 Temperature Pulse Rate 92 H 94 H 95 H Pulse Rate [ Anterior Bilateral] Pulse Rate [ From Monitor] Respiratory 16 16 16 Rate Respiratory Rate [Anterior Bilateral] Blood Pressure 136/77 137/77 137/77 O2 Sat by Pulse 97 93 96 Oximetry 08/01/21 08/01/21 08/01/21 23:21 23:25 23:29 Temperature Pulse Rate 96 H 99 H 95 H Pulse Rate [ Anterior Bilateral] Pulse Rate [ From Monitor] Respiratory 16 16 Rate Respiratory Rate [Anterior Bilateral] Blood Pressure 137/81 137/81 O2 Sat by Pulse 96 96 Oximetry 08/01/21 08/01/21 08/01/21 23:30 23:35 23:41 Temperature Pulse Rate 96 H 99 H 96 H Pulse Rate [ Anterior Bilateral] Pulse Rate [ 85 From Monitor] Respiratory 16 16 Rate Respiratory Rate [Anterior Bilateral] Blood Pressure 138/83 138/83 O2 Sat by Pulse 93 100 96 Oximetry 08/01/21 08/02/21 08/02/21 23:51 00:00 00:11 Temperature 97.9 F Pulse Rate 95 H 95 H 95 H Pulse Rate [ Anterior Bilateral] Pulse Rate [ From Monitor] Respiratory 16 16 17 Rate Respiratory Rate [Anterior Bilateral] Blood Pressure 135/83 144/84 144/84 O2 Sat by Pulse 97 93 97 Oximetry 08/02/21 08/02/21 08/02/21 00:21 00:30 00:33 Temperature Pulse Rate 97 H 99 H Pulse Rate [ Anterior Bilateral] Pulse Rate [ From Monitor] Respiratory 16 16 Rate Respiratory Rate [Anterior Bilateral] Blood Pressure 140/86 139/85 O2 Sat by Pulse 97 96 98 Oximetry 08/02/21 08/02/21 08/02/21 00:41 00:51 01:00 Temperature Pulse Rate 98 H 97 H 96 H Pulse Rate [ Anterior Bilateral] Pulse Rate [ From Monitor] Respiratory 15 16 16 Rate Respiratory Rate [Anterior Bilateral] Blood Pressure 139/85 130/85 135/84 O2 Sat by Pulse 98 98 94 Oximetry 08/02/21 08/02/21 08/02/21 01:11 01:21 01:30 Temperature Pulse Rate 96 H 99 H 99 H Pulse Rate [ Anterior Bilateral] Pulse Rate [ From Monitor] Respiratory 16 15 16 Rate Respiratory Rate [Anterior Bilateral] Blood Pressure 135/84 140/80 137/83 O2 Sat by Pulse 98 98 97 Oximetry 08/02/21 08/02/21 08/02/21 01:41 01:51 02:00 Temperature Pulse Rate 99 H 98 H 99 H Pulse Rate [ Anterior Bilateral] Pulse Rate [ From Monitor] Respiratory 16 16 15 Rate Respiratory Rate [Anterior Bilateral] Blood Pressure 135/84 139/81 134/83 O2 Sat by Pulse 98 98 95 Oximetry 08/02/21 08/02/21 08/02/21 02:11 02:21 02:30 Temperature Pulse Rate 99 H 99 H 98 H Pulse Rate [ Anterior Bilateral] Pulse Rate [ From Monitor] Respiratory 15 15 16 Rate Respiratory Rate [Anterior Bilateral] Blood Pressure 134/83 134/90 134/81 O2 Sat by Pulse 98 98 95 Oximetry 08/02/21 08/02/21 08/02/21 02:41 02:51 03:00 Temperature Pulse Rate 96 H 99 H 96 H Pulse Rate [ Anterior Bilateral] Pulse Rate [ 85 From Monitor] Respiratory 13 15 15 Rate Respiratory Rate [Anterior Bilateral] Blood Pressure 134/81 134/81 135/77 O2 Sat by Pulse 98 100 Oximetry 08/02/21 08/02/21 08/02/21 03:11 03:21 03:30 Temperature Pulse Rate 96 H 95 H 94 H Pulse Rate [ Anterior Bilateral] Pulse Rate [ From Monitor] Respiratory 16 15 15 Rate Respiratory Rate [Anterior Bilateral] Blood Pressure 135/77 127/78 133/79 O2 Sat by Pulse Oximetry 08/02/21 08/02/21 08/02/21 03:41 03:46 03:51 Temperature 98.5 F Pulse Rate 95 H 93 H Pulse Rate [ Anterior Bilateral] Pulse Rate [ From Monitor] Respiratory 16 15 Rate Respiratory Rate [Anterior Bilateral] Blood Pressure 133/79 139/79 O2 Sat by Pulse 99 98 Oximetry 08/02/21 08/02/21 08/02/21 04:00 04:11 04:20 Temperature Pulse Rate 93 H 90 91 H Pulse Rate [ Anterior Bilateral] Pulse Rate [ From Monitor] Respiratory 15 15 15 Rate Respiratory Rate [Anterior Bilateral] Blood Pressure 134/79 134/79 144/80 O2 Sat by Pulse 98 98 98 Oximetry 08/02/21 08/02/21 08/02/21 04:30 04:40 04:44 Temperature Pulse Rate 90 88 87 Pulse Rate [ Anterior Bilateral] Pulse Rate [ From Monitor] Respiratory 16 16 Rate Respiratory Rate [Anterior Bilateral] Blood Pressure 132/75 132/75 133/76 O2 Sat by Pulse 98 98 98 Oximetry 08/02/21 08/02/21 08/02/21 04:50 05:00 05:10 Temperature Pulse Rate 87 87 85 Pulse Rate [ Anterior Bilateral] Pulse Rate [ From Monitor] Respiratory 16 16 16 Rate Respiratory Rate [Anterior Bilateral] Blood Pressure 133/76 132/75 132/75 O2 Sat by Pulse 98 98 98 Oximetry 08/02/21 08/02/21 08/02/21 05:20 05:30 05:35 Temperature Pulse Rate 85 85 85 Pulse Rate [ Anterior Bilateral] Pulse Rate [ 85 From Monitor] Respiratory 16 16 Rate Respiratory Rate [Anterior Bilateral] Blood Pressure 130/75 134/76 O2 Sat by Pulse 98 98 100 Oximetry 08/02/21 08/02/21 08/02/21 05:40 05:50 06:00 Temperature Pulse Rate 85 85 84 Pulse Rate [ Anterior Bilateral] Pulse Rate [ From Monitor] Respiratory 16 16 16 Rate Respiratory Rate [Anterior Bilateral] Blood Pressure 134/76 132/72 132/72 O2 Sat by Pulse 98 98 98 Oximetry 08/02/21 08/02/21 08/02/21 06:10 06:20 06:30 Temperature Pulse Rate 82 82 82 Pulse Rate [ Anterior Bilateral] Pulse Rate [ From Monitor] Respiratory 16 16 16 Rate Respiratory Rate [Anterior Bilateral] Blood Pressure 132/72 132/73 130/71 O2 Sat by Pulse 98 98 98 Oximetry 08/02/21 08/02/21 08/02/21 06:40 06:50 07:00 Temperature Pulse Rate 83 81 82 Pulse Rate [ Anterior Bilateral] Pulse Rate [ From Monitor] Respiratory 16 16 16 Rate Respiratory Rate [Anterior Bilateral] Blood Pressure 130/71 132/72 135/72 O2 Sat by Pulse 99 99 98 Oximetry 08/02/21 08/02/21 08/02/21 07:10 07:20 07:30 Temperature Pulse Rate 82 79 79 Pulse Rate [ Anterior Bilateral] Pulse Rate [ From Monitor] Respiratory 16 16 15 Rate Respiratory Rate [Anterior Bilateral] Blood Pressure 135/72 135/70 132/73 O2 Sat by Pulse 98 98 98 Oximetry 08/02/21 08/02/21 08/02/21 07:40 07:50 08:00 Temperature 98.5 F Pulse Rate 79 79 77 Pulse Rate [ 79 Anterior Bilateral] Pulse Rate [ From Monitor] Respiratory 16 16 16 Rate Respiratory 16 Rate [Anterior Bilateral] Blood Pressure 132/73 128/70 129/66 O2 Sat by Pulse 98 98 98 Oximetry 08/02/21 08/02/21 08/02/21 08:10 08:20 08:26 Temperature Pulse Rate 77 78 78 Pulse Rate [ Anterior Bilateral] Pulse Rate [ From Monitor] Respiratory 16 16 Rate Respiratory Rate [Anterior Bilateral] Blood Pressure 129/66 130/68 130/68 O2 Sat by Pulse 98 98 98 Oximetry 08/02/21 08/02/21 08/02/21 08:30 08:40 08:50 Temperature Pulse Rate 77 79 80 Pulse Rate [ Anterior Bilateral] Pulse Rate [ From Monitor] Respiratory 16 16 16 Rate Respiratory Rate [Anterior Bilateral] Blood Pressure 128/68 128/68 118/66 O2 Sat by Pulse 98 100 100 Oximetry 08/02/21 08/02/21 08/02/21 09:00 09:10 09:20 Temperature Pulse Rate 76 76 76 Pulse Rate [ Anterior Bilateral] Pulse Rate [ From Monitor] Respiratory 16 16 16 Rate Respiratory Rate [Anterior Bilateral] Blood Pressure 124/67 124/67 126/69 O2 Sat by Pulse 100 98 98 Oximetry - General Appearance General appearance: well-developed, well-nourished, appears stated age, int ubated EENT: PERRL, mucous membranes moist Neck: no JVD, no thyromegaly, no carotid bruit, supple Respiratory: Present: Wheezes (Bilateral wheezing) Cardiology: regular, normal heart rate Gastrointestinal: normal, other (No edema) - Lab 08/02/21 Unknown 08/02/21 Unknown Most recent lab results ABG pH 7.350 (7.320-7.450) 08/02/21 04:00 ABG O2 Saturation 96.8 (0-100) 08/02/21 04:00 Calcium 8.8 mg/dL (8.4-10.2) 08/02/21 Unknown Urine Creatinine 125.6 mg/dL (0.1-20.0) H 08/01/21 Unknown Urine Sodium 12 mmol/L 08/01/21 Unknown Medications & Allergies - Medications Allergies/Adverse Reactions: Allergies No Known Allergies Allergy (Verified 12/24/18 11:45) Home Medications: Home Medications Medication Instructions Recorded Confirmed Last Taken Type traMADoL [Ultram 50 MG tab] 50 mg PO Q6HR PRN #15 tablet 01/25/18 Unknown Rx Active Medications: Generic Name Dose Route Start Last Admin Trade Name Freq PRN Reason Stop Dose Admin Acetaminophen 650 mg 07/28/21 02:11 Acetaminophen 325 Mg Tab PO Q6H PRN Pain MILD(1-3)/Fever >100.5/GARCIA Albuterol/Ipratropium 1 ampul 07/28/21 14:00 08/02/21 08:23 Ipratropium/Albuterol Sulfate 3 Ml Ampul.Neb IH 1 ampul TID DEMIAN Administration Lipase/Protease/Amylase 1 each 07/29/21 13:01 Lipase 10,500/Protease 25,000/Amylase 43,750 (Units) Dr Campoverde FEEDTUBE PRN PRN For Clogged Feeding Tube Arformoterol Tartrate 15 mcg 07/28/21 20:00 08/02/21 08:23 Arformoterol 15 Mcg/2 Ml Nebu IH 15 mcg Q12HRT DEMIAN Administration Budesonide 0.5 mg 07/28/21 20:00 08/02/21 08:23 Budesonide 0.5 Mg/2 Ml Nebu IH 0.5 mg Q12HRT DEMIAN Administration Dextrose 50 ml 07/28/21 02:11 Dextrose 50% In Water (25gm) 50 Ml Syringe IV Q30MIN PRN Hypoglycemia Protocol Enoxaparin Sodium 100 mg 08/02/21 10:00 Enoxaparin 100 Mg/1 Ml Inj SUB-Q Q24H DEMIAN Protocol Famotidine 10 mg 08/02/21 10:00 Famotidine 20 Mg/2 Ml Inj IV BID DEMIAN Fentanyl 50 mcg 07/29/21 10:42 Fentanyl 100 Mcg/2 Ml Inj IV Q10MIN PRN ANALGESIA Hydralazine HCl 10 mg 07/30/21 14:52 Hydralazine 20 Mg/1 Ml Inj IV Q6H PRN SBP > 165 Hydrophilic Ointment 1 applic 07/29/21 10:42 Lip Therapy Vaseline TP Q2HR PRN Dry Lips Fentanyl Citrate 2,000 mcg in 100 mls @ 5.35 mls/hr 07/29/21 11:00 08/02/21 07:42 Fentanyl Drip Premix IV 2 mcg/kg/hr TITR DEMIAN 10.7 mls/hr Administration Protocol 1 MCG/KG/HR Midazolam HCl 100 mg/ Sodium 100 mls @ 2 mls/hr 07/29/21 11:00 08/01/21 08:15 Chloride IV 2 mg/hr TITR DEMIAN 2 mls/hr Titration Protocol 2 MG/HR Norepinephrine 4 mg in 250 mls @ 7.5 mls/hr 07/29/21 21:00 Levophed Drip 4 Mg/Ns 250 Ml IV TITR DEMIAN Protocol 2 MCG/MIN Cefepime HCl 2 gm in 100 mls @ 200 mls/hr 08/02/21 10:00 Cefepime/Ns 2 Gm/100 Ml IV Q12H DEMIAN Protocol Insulin Glargine 15 units 08/02/21 22:00 Insulin Glargine 100 Units/Ml SUB-Q QHS [facility] Insulin Human Lispro 0 unit 07/29/21 12:00 08/02/21 05:35 Insulin Lispro 100 Unit/Ml SUB-Q 6 unit Q6HR DEMIAN Administration Protocol Magnesium Hydroxide 30 ml 07/28/21 02:11 Magnesium Hydroxide (Mom) Oral Liqd Udc PO Q4H PRN Constipation Methylprednisolone Sodium Succinate 40 mg 07/28/21 06:00 08/02/21 05:34 Methylprednisolone Sod Succinate 40 Mg/1 Ml Inj IV 40 mg Q8HR DEMIAN Administration Midazolam HCl 2 mg 07/29/21 10:42 Midazolam 2 Mg/2 Ml Inj IV Q10MIN PRN Sedation Multi-Ingred Cream/Lotion/Oil/Oint 1 applic 07/29/21 10:42 Mineral Oil/Petrolatum, White Ophth Oint 3.5 Gm OU Q4HR PRN Dry Eye(s) Ondansetron HCl 4 mg 07/28/21 02:11 Ondansetron 4 Mg/2 Ml Inj IV Q8H PRN Nausea And Vomiting Quetiapine Fumarate 200 mg 08/01/21 22:00 08/01/21 22:01 Quetiapine 200 Mg Tab PO 200 mg BID DEMIAN Administration Senna/Docusate Sodium 1 tab 07/29/21 22:00 08/01/21 22:00 Sennosides/Docusate Sodium 8.6/50 Mg Tab FEEDTUBE 1 tab BID DEMIAN Administration Simple Syrup 15 ml 07/29/21 13:01 Simple Syrup 15 Ml FEEDTUBE PRN PRN Hypoglycemia Simple Syrup 30 ml 07/29/21 13:01 Simple Syrup 15 Ml FEEDTUBE PRN PRN Hypoglycemia Sodium Bicarbonate 325 mg 07/29/21 13:01 Sodium Bicarbonate 325 Mg Tab FEEDTUBE PRN PRN For Clogged Feeding Tube Sodium Chloride 10 ml 07/28/21 10:00 08/01/21 22:01 Sodium Chloride 0.9% 10 Ml Flush Syringe IV 10 ml BID DEMIAN Administration Sodium Chloride 10 ml 07/28/21 02:05 Sodium Chloride 0.9% 10 Ml Flush Syringe IV PRN PRN LINE FLUSH
[2021-08-02] MEDS: CEFEPIME/NS 2 GM/100 ML 2 GM/100 ML BAG IV SCH ×2 (10:22→21:47)
[2021-08-02] MEDS: QUEtiapine 200 MG TAB PO SCH ×2 (10:23→21:47)
[2021-08-02] MEDS: SENNOSIDES/DOCUSATE SODIUM 8.6/50 MG TAB FEEDTUBE SCH ×2 (10:40→21:47)
--- NOTE | 2021-08-02 10:47 | XRay Report ---
XR chest 1V ap INDICATION / CLINICAL INFORMATION: assess position of picc. COMPARISON: Radiograph from earlier same day. FINDINGS: SUPPORT DEVICES: Stable position of left PICC, likely flipped into the azygos vein. Other support dev ices are stable. HEART /PULMONARY VASCULATURE: Unchanged. LUNGS / PLEURA: Lung parenchyma is not significantly changed. No pneumothorax. IMPRESSION: No significant interval change. Left PICC remains in stable position, likely flipped into the azygos vein. Signer Name: Cuba Lackey MD Signed: 08/02/2021 10:43 AM Workstation Name: [email or web address]
--- NOTE | 2021-08-02 11:35 | Progress Note ---
Assessment and Plan Acute hypoxemic respiratory failure secondary Lung Mass (? Lung vs Breast CA) Acute COPD exacerbation Possible hypercapnia History of right breast cancer Leukocytosis DM II Hypertension Hyperlipidemia Tobacco use disorder - for inspection bronchoscopy; hopefully diagnostic - continue Seroquel to spare IV sedatives - continue full anticoagulation for VTE - azotemia improving; appreciate nephrology input - continue care as below otherwise; - continue daily SAT and SBT assessment as tolerated - continue to wean supplemental oxygen for target O2 sat's > 90% acutely - VAP bundle addressed - continue lung protective strategies - continue bronchodilators (GLADIS & LABA) with pulmonary hygiene per RT - wean per pulmonary driven protocols otherwise - continue accuchecks with glycemic control per SSI (While critically ill target blood glucose of 140-180 mg/dL; avoid hypoglycemia) - sedation prn for target RASS 0 to -1 - avoid nephrotoxins, renally dose all medications - continue to avoid benzodiazepine's, reduce the possibility of delirium - complete AB's per ID rec's - prn analgesia per CPOT score - Maintenance of sleep-wake cycle, avoid delirium - enteral nutritional support at goal rate as tolerated - G.I. & VTE prophylaxis - PT/OT/ROM exercises - continue mobility protocols for pressure ulcer prophylaxis - Monitor hemodynamics closely - continue other care per attending / other consultants - discharge planning ongoing concurrently COVID SPECIFIC INTERVENTIONS - test result pending .... Re-evaluate in am & prn CONDITION: CRITICAL PROGNOSIS: GUARDED CODE STATUS: FULL CODE The high probability of a clinically significant, sudden or life-threatening deterioration of the [respiratory, cardiovascular, oncological & neurologic] system(s) required my full and direct attention, intervention and personal management. The aggregate critical care time was [35] minutes without overlap. Time includes spent on; [x] Data Review and interpretation [x] Patient assessment and monitoring of vital signs [x] Documentation [x] Medication orders and management Subjective Date of service: 08/02/21 Principal diagnosis: Ac hypoxemic resp failure ; AE-COPD; H/O CA Breast; DM II; HTN Interval history: Patient is seen today for: Acute hypoxemic respiratory failure; AE-COPD; Possible hypercapnia; H/O CA Breast; DM II; HTN Seen and examined at bedside; 24hour events reviewed; nursing and respiratory care staff consulted; no adverse overnight events reported to me; resting in bed; remains on MVS; for bronchoscopy today; no new issues otherwise Objective Vital Signs - 12hr 08/01/21 08/01/21 08/01/21 23:35 23:41 23:51 Temperature Pulse Rate 99 H 96 H 95 H Pulse Rate [ Anterior Bilateral] Pulse Rate [ 85 From Monitor] Respiratory 16 16 Rate Respiratory Rate [Anterior Bilateral] Blood Pressure 138/83 135/83 O2 Sat by Pulse 100 96 97 Oximetry 08/02/21 08/02/21 08/02/21 00:00 00:11 00:21 Temperature 97.9 F Pulse Rate 95 H 95 H 97 H Pulse Rate [ Anterior Bilateral] Pulse Rate [ From Monitor] Respiratory 16 17 16 Rate Respiratory Rate [Anterior Bilateral] Blood Pressure 144/84 144/84 140/86 O2 Sat by Pulse 93 97 97 Oximetry 08/02/21 08/02/21 08/02/21 00:30 00:33 00:41 Temperature Pulse Rate 99 H 98 H Pulse Rate [ Anterior Bilateral] Pulse Rate [ From Monitor] Respiratory 16 15 Rate Respiratory Rate [Anterior Bilateral] Blood Pressure 139/85 139/85 O2 Sat by Pulse 96 98 98 Oximetry 08/02/21 08/02/21 08/02/21 00:51 01:00 01:11 Temperature Pulse Rate 97 H 96 H 96 H Pulse Rate [ Anterior Bilateral] Pulse Rate [ From Monitor] Respiratory 16 16 16 Rate Respiratory Rate [Anterior Bilateral] Blood Pressure 130/85 135/84 135/84 O2 Sat by Pulse 98 94 98 Oximetry 08/02/21 08/02/21 08/02/21 01:21 01:30 01:41 Temperature Pulse Rate 99 H 99 H 99 H Pulse Rate [ Anterior Bilateral] Pulse Rate [ From Monitor] Respiratory 15 16 16 Rate Respiratory Rate [Anterior Bilateral] Blood Pressure 140/80 137/83 135/84 O2 Sat by Pulse 98 97 98 Oximetry 08/02/21 08/02/21 08/02/21 01:51 02:00 02:11 Temperature Pulse Rate 98 H 99 H 99 H Pulse Rate [ Anterior Bilateral] Pulse Rate [ From Monitor] Respiratory 16 15 15 Rate Respiratory Rate [Anterior Bilateral] Blood Pressure 139/81 134/83 134/83 O2 Sat by Pulse 98 95 98 Oximetry 08/02/21 08/02/21 08/02/21 02:21 02:30 02:41 Temperature Pulse Rate 99 H 98 H 96 H Pulse Rate [ Anterior Bilateral] Pulse Rate [ From Monitor] Respiratory 15 16 13 Rate Respiratory Rate [Anterior Bilateral] Blood Pressure 134/90 134/81 134/81 O2 Sat by Pulse 98 95 98 Oximetry 08/02/21 08/02/21 08/02/21 02:51 03:00 03:11 Temperature Pulse Rate 99 H 96 H 96 H Pulse Rate [ Anterior Bilateral] Pulse Rate [ 85 From Monitor] Respiratory 15 15 16 Rate Respiratory Rate [Anterior Bilateral] Blood Pressure 134/81 135/77 135/77 O2 Sat by Pulse 100 Oximetry 08/02/21 08/02/21 08/02/21 03:21 03:30 03:41 Temperature Pulse Rate 95 H 94 H 95 H Pulse Rate [ Anterior Bilateral] Pulse Rate [ From Monitor] Respiratory 15 15 16 Rate Respiratory Rate [Anterior Bilateral] Blood Pressure 127/78 133/79 133/79 O2 Sat by Pulse 99 Oximetry 08/02/21 08/02/21 08/02/21 03:46 03:51 04:00 Temperature 98.5 F Pulse Rate 93 H 93 H Pulse Rate [ Anterior Bilateral] Pulse Rate [ From Monitor] Respiratory 15 15 Rate Respiratory Rate [Anterior Bilateral] Blood Pressure 139/79 134/79 O2 Sat by Pulse 98 98 Oximetry 08/02/21 08/02/21 08/02/21 04:11 04:20 04:30 Temperature Pulse Rate 90 91 H 90 Pulse Rate [ Anterior Bilateral] Pulse Rate [ From Monitor] Respiratory 15 15 16 Rate Respiratory Rate [Anterior Bilateral] Blood Pressure 134/79 144/80 132/75 O2 Sat by Pulse 98 98 98 Oximetry 08/02/21 08/02/21 08/02/21 04:40 04:44 04:50 Temperature Pulse Rate 88 87 87 Pulse Rate [ Anterior Bilateral] Pulse Rate [ From Monitor] Respiratory 16 16 Rate Respiratory Rate [Anterior Bilateral] Blood Pressure 132/75 133/76 133/76 O2 Sat by Pulse 98 98 98 Oximetry 08/02/21 08/02/21 08/02/21 05:00 05:10 05:20 Temperature Pulse Rate 87 85 85 Pulse Rate [ Anterior Bilateral] Pulse Rate [ From Monitor] Respiratory 16 16 16 Rate Respiratory Rate [Anterior Bilateral] Blood Pressure 132/75 132/75 130/75 O2 Sat by Pulse 98 98 98 Oximetry 08/02/21 08/02/21 08/02/21 05:30 05:35 05:40 Temperature Pulse Rate 85 85 85 Pulse Rate [ Anterior Bilateral] Pulse Rate [ 85 From Monitor] Respiratory 16 16 Rate Respiratory Rate [Anterior Bilateral] Blood Pressure 134/76 134/76 O2 Sat by Pulse 98 100 98 Oximetry 08/02/21 08/02/21 08/02/21 05:50 06:00 06:10 Temperature Pulse Rate 85 84 82 Pulse Rate [ Anterior Bilateral] Pulse Rate [ From Monitor] Respiratory 16 16 16 Rate Respiratory Rate [Anterior Bilateral] Blood Pressure 132/72 132/72 132/72 O2 Sat by Pulse 98 98 98 Oximetry 08/02/21 08/02/21 08/02/21 06:20 06:30 06:40 Temperature Pulse Rate 82 82 83 Pulse Rate [ Anterior Bilateral] Pulse Rate [ From Monitor] Respiratory 16 16 16 Rate Respiratory Rate [Anterior Bilateral] Blood Pressure 132/73 130/71 130/71 O2 Sat by Pulse 98 98 99 Oximetry 08/02/21 08/02/21 08/02/21 06:50 07:00 07:10 Temperature Pulse Rate 81 82 82 Pulse Rate [ Anterior Bilateral] Pulse Rate [ From Monitor] Respiratory 16 16 16 Rate Respiratory Rate [Anterior Bilateral] Blood Pressure 132/72 135/72 135/72 O2 Sat by Pulse 99 98 98 Oximetry 08/02/21 08/02/21 08/02/21 07:20 07:30 07:40 Temperature Pulse Rate 79 79 79 Pulse Rate [ Anterior Bilateral] Pulse Rate [ From Monitor] Respiratory 16 15 16 Rate Respiratory Rate [Anterior Bilateral] Blood Pressure 135/70 132/73 132/73 O2 Sat by Pulse 98 98 98 Oximetry 08/02/21 08/02/21 08/02/21 07:50 08:00 08:10 Temperature 98.5 F Pulse Rate 79 77 77 Pulse Rate [ 79 Anterior Bilateral] Pulse Rate [ From Monitor] Respiratory 16 16 16 Rate Respiratory 16 Rate [Anterior Bilateral] Blood Pressure 128/70 129/66 129/66 O2 Sat by Pulse 98 98 98 Oximetry 08/02/21 08/02/21 08/02/21 08:20 08:26 08:30 Temperature Pulse Rate 78 78 77 Pulse Rate [ Anterior Bilateral] Pulse Rate [ From Monitor] Respiratory 16 16 Rate Respiratory Rate [Anterior Bilateral] Blood Pressure 130/68 130/68 128/68 O2 Sat by Pulse 98 98 98 Oximetry 08/02/21 08/02/2121 08:40 08:50 09:00 Temperature Pulse Rate 79 80 76 Pulse Rate [ Anterior Bilateral] Pulse Rate [ From Monitor] Respiratory 16 16 16 Rate Respiratory Rate [Anterior Bilateral] Blood Pressure 128/68 118/66 124/67 O2 Sat by Pulse 100 100 100 Oximetry 08/02/21 08/02/21 08/02/21 09:10 09:20 09:30 Temperature Pulse Rate 76 76 77 Pulse Rate [ Anterior Bilateral] Pulse Rate [ From Monitor] Respiratory 16 16 16 Rate Respiratory Rate [Anterior Bilateral] Blood Pressure 124/67 126/69 123/65 O2 Sat by Pulse 98 98 98 Oximetry 08/02/21 08/02/21 08/02/21 09:40 09:50 10:00 Temperature Pulse Rate 76 75 76 Pulse Rate [ Anterior Bilateral] Pulse Rate [ From Monitor] Respiratory 16 16 16 Rate Respiratory Rate [Anterior Bilateral] Blood Pressure 123/65 124/67 125/65 O2 Sat by Pulse 98 97 97 Oximetry 08/02/21 08/02/21 08/02/21 10:10 10:21 10:30 Temperature Pulse Rate 75 75 73 Pulse Rate [ Anterior Bilateral] Pulse Rate [ From Monitor] Respiratory 16 16 16 Rate Respiratory Rate [Anterior Bilateral] Blood Pressure 125/65 117/78 O2 Sat by Pulse 98 97 99 Oximetry 08/02/21 08/02/21 08/02/21 10:41 10:51 11:00 Temperature Pulse Rate 74 74 75 Pulse Rate [ Anterior Bilateral] Pulse Rate [ From Monitor] Respiratory 16 16 16 Rate Respiratory Rate [Anterior Bilateral] Blood Pressure 117/78 130/79 136/74 O2 Sat by Pulse 99 99 99 Oximetry 08/02/21 11:11 Temperature Pulse Rate 75 Pulse Rate [ Anterior Bilateral] Pulse Rate [ From Monitor] Respiratory 16 Rate Respiratory Rate [Anterior Bilateral] Blood Pressure 136/74 O2 Sat by Pulse 99 Oximetry Constitutional: no acute distress, other (eldely obese female with mildy increased respiratory effort at rest on MVS) Eyes: non-icteric ENT: oropharynx moist, other (ETT 24 cm [place]) Neck: supple, no lymphadenopathy, no JVD Effort: mildly labored Ascultation: Bilateral: wheezes (central), rhonchi Percussion: Bilateral: not dull Cardiovascular: regular rate and rhythm Gastrointestinal: normoactive bowel sounds, soft, non-tender, non-distended Integumentary: normal Extremities: no cyanosis, no edema, pulses normal, no ischemia or petechiae Neurologic: normal mental status, non-focal exam, pupils equal and round, CN II- XII normal Psychiatric: mood appropriate, affect normal CBC and BMP: 08/02/21 Unknown 08/02/21 Unknown ABG, PT/INR, D-dimer: ABG ABG pH 7.350 (7.320-7.450) 08/02/21 04:00 POC ABG pCO2 47.5 mmHg (32.0-48.0) 08/02/21 04:00 POC ABG pO2 95.0 mmHg (83-108) 08/02/21 04:00 POC ABG HCO3 25.6 08/02/21 04:00 ABG O2 Saturation 96.8 (0-100) 08/02/21 04:00 PT/INR, D-dimer PT 14.0 Sec. (12.2-14.9) 07/29/21 04:44 INR 1.03 (0.87-1.13) 07/29/21 04:44 D-Dimer 852.47 ng/mlDDU (0-234) H 07/29/21 07:17 Abnormal lab findings: Abnormal Labs 07/27/21 07/27/21 07/27/21 22:57 22:57 22:57 WBC 20.3 H Hct RDW Lymph % (Auto) Lymph # (Auto) [place] # (Auto) Seg Neutrophils % Seg Neuts % (Manual) 89.0 H Lymphocytes % (Manual) 9.0 L Nucleated RBC % Seg Neutrophils # Seg Neutrophils # Man 18.1 H Lymphocytes # (Manual) Monocytes # (Manual) D-Dimer ABG pH POC ABG pCO2 POC ABG pO2 ABG Oxyhemoglobin ABG Sodium ABG Potassium ABG Glucose Carboxyhemoglobin Potassium 3.5 L Chloride 96.9 L Carbon Dioxide 20 L BUN 19 H Creatinine Glucose 204 H POC Glucose Lactic Acid 7.20 H* AST 98 H ALT 90 H Arterial Blood Glucose Arterial Blood Ionized Calcium Urine Creatinine 07/28/21 07/28/21 07/28/21 01:31 07:49 10:00 WBC Hct RDW Lymph % (Auto) Lymph # (Auto) [place] # (Auto) Seg Neutrophils % Seg Neuts % (Manual) Lymphocytes % (Manual) Nucleated RBC % Seg Neutrophils # Seg Neutrophils # Man Lymphocytes # (Manual) Monocytes # (Manual) D-Dimer ABG pH POC ABG pCO2 POC ABG pO2 ABG Oxyhemoglobin ABG Sodium ABG Potassium ABG Glucose Carboxyhemoglobin Potassium Chloride Carbon Dioxide BUN Creatinine Glucose POC Glucose 194 H Lactic Acid 6.90 H* 6.70 H* AST ALT Arterial Blood Glucose Arterial Blood Ionized Calcium Urine Creatinine 07/28/21 07/28/21 07/28/21 12:41 13:21 16:21 WBC Hct RDW Lymph % (Auto) Lymph # (Auto) [place] # (Auto) Seg Neutrophils % Seg Neuts % (Manual) Lymphocytes % (Manual) Nucleated RBC % Seg Neutrophils # Seg Neutrophils # Man Lymphocytes # (Manual) Monocytes # (Manual) D-Dimer ABG pH POC ABG pCO2 POC ABG pO2 ABG Oxyhemoglobin ABG Sodium ABG Potassium ABG Glucose Carboxyhemoglobin Potassium Chloride Carbon Dioxide BUN Creatinine Glucose POC Glucose 159 H 155 H Lactic Acid 6.10 H* AST ALT Arterial Blood Glucose Arterial Blood Ionized Calcium Urine Creatinine 07/28/21 07/29/21 07/29/21 22:03 04:44 04:44 WBC 17.0 H Hct RDW Lymph % (Auto) Lymph # (Auto) [place] # (Auto) Seg Neutrophils % Seg Neuts % (Manual) 82.0 H Lymphocytes % (Manual) 11.0 L Nucleated RBC % Seg Neutrophils # Seg Neutrophils # Man 13.9 H Lymphocytes # (Manual) Monocytes # (Manual) 1.0 H D-Dimer ABG pH POC ABG pCO2 POC ABG pO2 ABG Oxyhemoglobin ABG Sodium ABG Potassium ABG Glucose Carboxyhemoglobin Potassium Chloride Carbon Dioxide BUN 23 H Creatinine Glucose 196 H POC Glucose 187 H Lactic Acid AST ALT Arterial Blood Glucose Arterial Blood Ionized Calcium Urine Creatinine 07/29/21 07/29/21 07/29/21 06:56 07:17 07:17 WBC 26.1 H Hct 43.3 H RDW 16.0 H Lymph % (Auto) Lymph # (Auto) [place] # (Auto) Seg Neutrophils % Seg Neuts % (Manual) 80.0 H Lymphocytes % (Manual) Nucleated RBC % Seg Neutrophils # Seg Neutrophils # Man 20.9 H Lymphocytes # (Manual) Monocytes # (Manual) D-Dimer ABG pH POC ABG pCO2 POC ABG pO2 ABG Oxyhemoglobin ABG Sodium ABG Potassium ABG Glucose Carboxyhemoglobin Potassium Chloride Carbon Dioxide 20 L D BUN 23 H Creatinine Glucose 308 H POC Glucose 165 H Lactic Acid AST ALT Arterial Blood Glucose Arterial Blood Ionized Calcium Urine Creatinine 07/29/21 07/29/21 07/29/21 07:17 09:16 10:30 WBC Hct RDW Lymph % (Auto) Lymph # (Auto) [place] # (Auto) Seg Neutrophils % Seg Neuts % (Manual) Lymphocytes % (Manual) Nucleated RBC % Seg Neutrophils # Seg Neutrophils # Man Lymphocytes # (Manual) Monocytes # (Manual) D-Dimer 852.47 H ABG pH 7.236 L POC ABG pCO2 56.0 H POC ABG pO2 266.4 H ABG Oxyhemoglobin 99.1 H ABG Sodium 132.3 L ABG Potassium 4.9 H ABG Glucose 202 H Carboxyhemoglobin 0.2 L Potassium Chloride Carbon Dioxide BUN Creatinine Glucose POC Glucose 271 H Lactic Acid AST ALT Arterial Blood Glucose 202 H Arterial Blood Ionized Calcium Urine Creatinine 07/29/21 07/29/21 07/30/21 17:54 23:32 05:08 WBC Hct RDW Lymph % (Auto) Lymph # (Auto) [place] # (Auto) Seg Neutrophils % Seg Neuts % (Manual) Lymphocytes % (Manual) Nucleated RBC % Seg Neutrophils # Seg Neutrophils # Man Lymphocytes # (Manual) Monocytes # (Manual) D-Dimer ABG pH POC ABG pCO2 POC ABG pO2 ABG Oxyhemoglobin ABG Sodium ABG Potassium ABG Glucose Carboxyhemoglobin Potassium Chloride Carbon Dioxide BUN Creatinine Glucose POC Glucose 168 H 205 H 214 H Lactic Acid AST ALT Arterial Blood Glucose Arterial Blood Ionized Calcium Urine Creatinine 07/30/21 07/30/21 07/30/21 06:01 11:32 17:34 WBC Hct RDW Lymph % (Auto) Lymph # (Auto) [place] # (Auto) Seg Neutrophils % Seg Neuts % (Manual) Lymphocytes % (Manual) Nucleated RBC % Seg Neutrophils # Seg Neutrophils # Man Lymphocytes # (Manual) Monocytes # (Manual) D-Dimer ABG pH 7.480 H POC ABG pCO2 23.6 L POC ABG pO2 280.0 H ABG Oxyhemoglobin 99.3 H ABG Sodium 133.7 L ABG Potassium ABG Glucose 232 H Carboxyhemoglobin 0 L Potassium Chloride Carbon Dioxide BUN Creatinine Glucose POC Glucose 207 H 239 H Lactic Acid AST ALT Arterial Blood Glucose 232 H Arterial Blood Ionized Calcium 4.4 L Urine Creatinine 07/30/21 07/31/21 07/31/21 23:39 03:34 04:45 WBC 15.0 H Hct RDW 15.5 H Lymph % (Auto) Lymph # (Auto) [place] # (Auto) Seg Neutrophils % Seg Neuts % (Manual) 89.0 H Lymphocytes % (Manual) 7.0 L Nucleated RBC % Seg Neutrophils # Seg Neutrophils # Man 13.4 H Lymphocytes # (Manual) 1.1 L Monocytes # (Manual) D-Dimer ABG pH 7.481 H POC ABG pCO2 31.8 L POC ABG pO2 ABG Oxyhemoglobin ABG Sodium 135.2 L ABG Potassium 3.3 L ABG Glucose 188 H Carboxyhemoglobin 0.1 L Potassium Chloride Carbon Dioxide BUN Creatinine Glucose POC Glucose 176 H Lactic Acid AST ALT Arterial Blood Glucose 188 H Arterial Blood Ionized Calcium 4.4 L Urine Creatinine 07/31/21 07/31/21 07/31/21 04:45 04:45 11:28 WBC Hct RDW Lymph % (Auto) Lymph # (Auto) [place] # (Auto) Seg Neutrophils % Seg Neuts % (Manual) Lymphocytes % (Manual) Nucleated RBC % Seg Neutrophils # Seg Neutrophils # Man Lymphocytes # (Manual) Monocytes # (Manual) D-Dimer ABG pH POC ABG pCO2 POC ABG pO2 ABG Oxyhemoglobin ABG Sodium ABG Potassium ABG Glucose Carboxyhemoglobin Potassium 3.4 L Chloride Carbon Dioxide BUN 61 H Creatinine 2.6 H D Glucose 176 H POC Glucose 195 H 245 H Lactic Acid AST ALT Arterial Blood Glucose Arterial Blood Ionized Calcium Urine Creatinine 07/31/21 07/31/21 08/01/21 17:32 23:58 01:00 WBC Hct RDW Lymph % (Auto) Lymph # (Auto) [place] # (Auto) Seg Neutrophils % Seg Neuts % (Manual) Lymphocytes % (Manual) Nucleated RBC % Seg Neutrophils # Seg Neutrophils # Man Lymphocytes # (Manual) Monocytes # (Manual) D-Dimer ABG pH POC ABG pCO2 POC ABG pO2 ABG Oxyhemoglobin ABG Sodium ABG Potassium ABG Glucose 284 H Carboxyhemoglobin 0.3 L Potassium Chloride Carbon Dioxide BUN Creatinine Glucose POC Glucose 251 H 294 H Lactic Acid AST ALT Arterial Blood Glucose 284 H Arterial Blood Ionized Calcium Urine Creatinine 0908/01/21 08/01/21 05:50 05:50 06:11 WBC 16.2 H Hct RDW 15.5 H Lymph % (Auto) Lymph # (Auto) [place] # (Auto) Seg Neutrophils % Seg Neuts % (Manual) 93.0 H Lymphocytes % (Manual) 2.0 L Nucleated RBC % 3.0 H Seg Neutrophils # Seg Neutrophils # Man 15.1 H Lymphocytes # (Manual) 0.3 L Monocytes # (Manual) D-Dimer ABG pH POC ABG pCO2 POC ABG pO2 ABG Oxyhemoglobin ABG Sodium ABG Potassium ABG Glucose Carboxyhemoglobin Potassium Chloride Carbon Dioxide BUN 64 H Creatinine 1.9 H Glucose 277 H POC Glucose 256 H Lactic Acid AST ALT Arterial Blood Glucose Arterial Blood Ionized Calcium Urine Creatinine 08/01/21 08/01/21 08/01/21 11:39 17:25 23:53 WBC Hct RDW Lymph % (Auto) Lymph # (Auto) [place] # (Auto) Seg Neutrophils % Seg Neuts % (Manual) Lymphocytes % (Manual) Nucleated RBC % Seg Neutrophils # Seg Neutrophils # Man Lymphocytes # (Manual) Monocytes # (Manual) D-Dimer ABG pH POC ABG pCO2 POC ABG pO2 ABG Oxyhemoglobin ABG Sodium ABG Potassium ABG Glucose Carboxyhemoglobin Potassium Chloride Carbon Dioxide BUN Creatinine Glucose POC Glucose 289 H 275 H 327 H Lactic Acid AST ALT Arterial Blood Glucose Arterial Blood Ionized Calcium Urine Creatinine 08/01/21 08/02/21 08/02/21 Unknown 04:00 Unknown WBC 14.1 H Hct RDW 16.3 H Lymph % (Auto) 5.1 L Lymph # (Auto) 0.7 L [place] # (Auto) 0.9 H Seg Neutrophils % 88.7 H Seg Neuts % (Manual) Lymphocytes % (Manual) Nucleated RBC % Seg Neutrophils # 12.5 H Seg Neutrophils # Man Lymphocytes # (Manual) Monocytes # (Manual) D-Dimer ABG pH POC ABG pCO2 POC ABG pO2 ABG Oxyhemoglobin ABG Sodium ABG Potassium ABG Glucose 325 H Carboxyhemoglobin 0.4 L Potassium Chloride Carbon Dioxide BUN Creatinine Glucose POC Glucose Lactic Acid AST ALT Arterial Blood Glucose 325 H Arterial Blood Ionized Calcium Urine Creatinine 125.6 H 08/02/21 Unknown WBC Hct RDW Lymph % (Auto) Lymph # (Auto) [place] # (Auto) Seg Neutrophils % Seg Neuts % (Manual) Lymphocytes % (Manual) Nucleated RBC % Seg Neutrophils # Seg Neutrophils # Man Lymphocytes # (Manual) Monocytes # (Manual) D-Dimer ABG pH POC ABG pCO2 POC ABG pO2 ABG Oxyhemoglobin ABG Sodium ABG Potassium ABG Glucose Carboxyhemoglobin Potassium Chloride Carbon Dioxide BUN 72 H Creatinine 1.8 H Glucose 307 H POC Glucose Lactic Acid AST ALT Arterial Blood Glucose Arterial Blood Ionized Calcium Urine Creatinine Chest x-ray: image reviewed (RUL infiltrate) Allied health notes reviewed: nursing
[2021-08-02] MEDS ORDERED: SODIUM CHLORIDE 0.9% 1000 ML 1,000 ML IV SCH (12:15)
[2021-08-02] MEDS ORDERED: EPINEPHrine 1 MG/10 ML SYRINGE ONE (12:38)
[2021-08-02] MEDS ORDERED: LIDOCAINE (1%) 10 MG/1 ML VIAL 20 ML MDV ONE (12:58)
[2021-08-02] MEDS ORDERED: LIDOCAINE (1%) 10 MG/1 ML VIAL 20 ML MDV INFILTRATI ONE (13:00)
[2021-08-02] MEDS ORDERED: EPINEPHrine 1 MG/10 ML SYRINGE IV ONE (13:15)
--- NOTE | 2021-08-02 13:46 | Procedure Note ---
Date of procedure: 08/02/21 Pre-op diagnosis: Lung Mass Post-op diagnosis: same Procedure: FIBEROPTIC BRONCHOSCOPY WITH BRUSHES & ENDOBRONCHIAL BIOPSIES (Full dictation # [id number]) Please see dictated notes for full details
--- NOTE | 2021-08-02 14:15 | XRay Report ---
XR chest 1V ap INDICATION / CLINICAL INFORMATION: Pneumothorax. COMPARISON: 08/02/2021 FINDINGS: SUPPORT DEVICES: Unchanged, with stable positioning of left PICC in the azygos vein. HEART /PULMONARY VASCULATURE: Unchanged. LUNGS / PLEURA: New opacity within the right lung apex likely reflects volume loss. No evidence pneum othorax. IMPRESSION: 1. New opacity within the right lung apex likely reflects volume loss. Otherwise stable appearance of the chest. No pneumothorax. 2. Stable positioning of left PICC in the azygos vein. Signer Name: Cuba Lackey MD Signed: 08/02/2021 2:11 PM Workstation Name: [id number]
--- NOTE | 2021-08-02 15:25 | Hem/Onc Progress Note ---
Subjective Date of service: 08/02/21 Interval history: TELEVISIT HEME NOTE CPT: 29172 Dx: LLE DVT 66yo woman with h/o breast cancer, now with metastatic cancer affecting lungs and LN eval at [facility] ER for SOB, imaging found to have mediastinal LA and RUL mass has been on vent--now on minimal vent support since admission received steroid pulse L leg prox DVT found-->lovenox twice daily had bronchoscopy with biopsy today DATA REVIEWED BELOW IMP: h/o breast cancer (details unavailable) now with metastatic cancer affecting lung and LN L leg prox DVT REC: labs to include CEA, CA15-3, CA27-29 steroid pulse/taper lovenox "full dose" Laboratory Last Values WBC 14.1 K/mm3 (4.5-11.0) H 08/02/21 Unknown RBC 3.79 M/mm3 (3.65-5.03) 08/02/21 Unknown Hgb 11.1 gm/dl (10.1-14.3) 08/02/21 Unknown Hct 33.4 % (30.3-42.9) 08/02/21 Unknown Plt Count 229 K/mm3 (140-440) 08/02/21 Unknown Objective - Constitutional Vitals: Last Vital Signs Temp 97.4 F L 08/02/21 12:27 Pulse 83 08/02/21 14:10 Resp 16 08/02/21 14:10 BP 137/71 08/02/21 14:10 Pulse Ox 99 08/02/21 14:10 - Labs Lab Results: Laboratory Results - last 24 hr 07/31/21 08/01/21 08/01/21 04:45 05:50 17:25 WBC RBC Hgb Hct MCV MCH MCHC RDW Plt Count Lymph % (Auto) [place] % (Auto) Eos % (Auto) Baso % (Auto) Lymph # (Auto) [place] # (Auto) Eos # (Auto) Baso # (Auto) Add Manual Diff Complete Total Counted 100 Seg Neutrophils % Seg Neuts % (Manual) 93.0 H Lymphocytes % (Manual) 2.0 L Monocytes % (Manual) 3.0 Metamyelocytes % 1.0 Myelocytes % 1.0 Nucleated RBC % 3.0 H Seg Neutrophils # Seg Neutrophils # Man 15.1 H Band Neutrophils # 0.0 Lymphocytes # (Manual) 0.3 L Abs React Lymphs (Man) 0.0 Monocytes # (Manual) 0.5 Eosinophils # (Manual) 0.0 Basophils # (Manual) 0.0 Metamyelocytes # 0.2 Myelocytes # 0.2 Promyelocytes # 0.0 Blast Cells # 0.0 WBC Morphology Not Reportable Hypersegmented Neuts Not Reportable Hyposegmented Neuts Not Reportable Hypogranular Neuts Not Reportable Smudge Cells Not Reportable Toxic Granulation Not Reportable Toxic Vacuolation Not Reportable Dohle Bodies Not Reportable Pelger-Huet Anomaly Not Reportable Beryl Rods Not Reportable Platelet Estimate Consistent w auto Clumped Platelets Not Reportable Plt Clumps, EDTA Not Reportable Large Platelets Not Reportable Giant Platelets Not Reportable Platelet Satelliting Not Reportable Plt Morphology Comment Not Reportable RBC Morphology Normal Dimorphic RBCs Not Reportable Polychromasia Not Reportable Hypochromasia Not Reportable Poikilocytosis Not Reportable Anisocytosis Not Reportable Microcytosis Not Reportable Macrocytosis Not Reportable Spherocytes Not Reportable Pappenheimer Bodies Not Reportable Sickle Cells Not Reportable Target Cells Not Reportable Tear Drop Cells Not Reportable Ovalocytes Not Reportable Helmet Cells Not Reportable Paul-Gibbon Bodies Not Reportable [place] Rings Not Reportable [place] Cells Not Reportable Bite Cells Not Reportable Crenated Cell Not Reportable Elliptocytes Not Reportable Acanthocytes (Spur) Not Reportable Rouleaux Not Reportable Hemoglobin C Crystals Not Reportable Schistocytes Not Reportable Malaria parasites Not Reportable Gurmeet Bodies Not Reportable Hem Pathologist Commnt No ABG pH POC ABG pCO2 POC ABG pO2 POC ABG HCO3 ABG O2 Saturation POC ABG Base Excess ABG Hemoglobin ABG Oxyhemoglobin ABG Methemoglobin ABG Sodium ABG Potassium ABG Chloride ABG Glucose Carboxyhemoglobin FiO2 % Sodium Potassium Chloride Carbon Dioxide Anion Gap BUN Creatinine Estimated GFR BUN/Creatinine Ratio Glucose POC Glucose 275 H Calcium Carcinoembryonic Ag <0.5 Arterial Blood Glucose Arterial Blood Ionized Calcium 08/01/21 08/02/21 08/02/21 23:53 04:00 12:03 WBC RBC Hgb Hct MCV MCH MCHC RDW Plt Count Lymph % (Auto) [place] % (Auto) Eos % (Auto) Baso % (Auto) Lymph # (Auto) [place] # (Auto) Eos # (Auto) Baso # (Auto) Add Manual Diff Total Counted Seg Neutrophils % Seg Neuts % (Manual) Lymphocytes % (Manual) Monocytes % (Manual) Metamyelocytes % Myelocytes % Nucleated RBC % Seg Neutrophils # Seg Neutrophils # Man Band Neutrophils # Lymphocytes # (Manual) Abs React Lymphs (Man) Monocytes # (Manual) Eosinophils # (Manual) Basophils # (Manual) Metamyelocytes # Myelocytes # Promyelocytes # Blast Cells # WBC Morphology Hypersegmented Neuts Hyposegmented Neuts Hypogranular Neuts Smudge Cells Toxic Granulation Toxic Vacuolation Dohle Bodies Pelger-Huet Anomaly Beryl Rods Platelet Estimate Clumped Platelets Plt Clumps, EDTA Large Platelets Giant Platelets Platelet Satelliting Plt Morphology Comment RBC Morphology Dimorphic RBCs Polychromasia Hypochromasia Poikilocytosis Anisocytosis Microcytosis Macrocytosis Spherocytes Pappenheimer Bodies Sickle Cells Target Cells Tear Drop Cells Ovalocytes Helmet Cells Paul-Gibbon Bodies [place] Rings [place] Cells Bite Cells Crenated Cell Elliptocytes Acanthocytes (Spur) Rouleaux Hemoglobin C Crystals Schistocytes Malaria parasites Gurmeet Bodies Hem Pathologist Commnt ABG pH 7.350 POC ABG pCO2 47.5 POC ABG pO2 95.0 POC ABG HCO3 25.6 ABG O2 Saturation 96.8 POC ABG Base Excess -0.3 ABG Hemoglobin 12.1 ABG Oxyhemoglobin 96.2 ABG Methemoglobin 0.2 ABG Sodium 138.0 ABG Potassium 4.5 ABG Chloride 104.0 ABG Glucose 325 H Carboxyhemoglobin 0.4 L FiO2 % 30.0 Sodium Potassium Chloride Carbon Dioxide Anion Gap BUN Creatinine Estimated GFR BUN/Creatinine Ratio Glucose POC Glucose 327 H 209 H Calcium Carcinoembryonic Ag Arterial Blood Glucose 325 H Arterial Blood Ionized Calcium 4.6 08/02/21 08/02/21 Unknown Unknown WBC 14.1 H RBC 3.79 Hgb 11.1 Hct 33.4 MCV 88 MCH 29 MCHC 33 RDW 16.3 H Plt Count 229 Lymph % (Auto) 5.1 L [place] % (Auto) 6.1 Eos % (Auto) 0.0 Baso % (Auto) 0.1 Lymph # (Auto) 0.7 L [place] # (Auto) 0.9 H Eos # (Auto) 0.0 Baso # (Auto) 0.0 Add Manual Diff Total Counted Seg Neutrophils % 88.7 H Seg Neuts % (Manual) Lymphocytes % (Manual) Monocytes % (Manual) Metamyelocytes % Myelocytes % Nucleated RBC % Seg Neutrophils # 12.5 H Seg Neutrophils # Man Band Neutrophils # Lymphocytes # (Manual) Abs React Lymphs (Man) Monocytes # (Manual) Eosinophils # (Manual) Basophils # (Manual) Metamyelocytes # Myelocytes # Promyelocytes # Blast Cells # WBC Morphology Hypersegmented Neuts Hyposegmented Neuts Hypogranular Neuts Smudge Cells Toxic Granulation Toxic Vacuolation Dohle Bodies Pelger-Huet Anomaly Beryl Rods Platelet Estimate Clumped Platelets Plt Clumps, EDTA Large Platelets Giant Platelets Platelet Satelliting Plt Morphology Comment RBC Morphology Dimorphic RBCs Polychromasia Hypochromasia Poikilocytosis Anisocytosis Microcytosis Macrocytosis Spherocytes Pappenheimer Bodies Sickle Cells Target Cells Tear Drop Cells Ovalocytes Helmet Cells Paul-Gibbon Bodies [place] Rings [place] Cells Bite Cells Crenated Cell Elliptocytes Acanthocytes (Spur) Rouleaux Hemoglobin C Crystals Schistocytes Malaria parasites Gurmeet Bodies Hem Pathologist Commnt ABG pH POC ABG pCO2 POC ABG pO2 POC ABG HCO3 ABG O2 Saturation POC ABG Base Excess ABG Hemoglobin ABG Oxyhemoglobin ABG Methemoglobin ABG Sodium ABG Potassium ABG Chloride ABG Glucose Carboxyhemoglobin FiO2 % Sodium 142 Potassium 4.6 Chloride 102.5 Carbon Dioxide 28 Anion Gap 16 BUN 72 H Creatinine 1.8 H Estimated GFR 34 BUN/Creatinine Ratio 40 Glucose 307 H POC Glucose Calcium 8.8 Carcinoembryonic Ag Arterial Blood Glucose Arterial Blood Ionized Calcium Medications & Allergies - Medications Allergies/Adverse Reactions: Allergies No Known Allergies Allergy (Verified 12/24/18 11:45) Home Medications: Home Medications Medication Instructions Recorded Confirmed Last Taken Type traMADoL [Ultram 50 MG tab] 50 mg PO Q6HR PRN #15 tablet 01/25/18 Unknown Rx Active Medications: Generic Name Dose Route Start Last Admin Trade Name Freq PRN Reason Stop Dose Admin Acetaminophen 650 mg 07/28/21 02:11 Acetaminophen 325 Mg Tab PO Q6H PRN Pain MILD(1-3)/Fever >100.5/GARCIA Albuterol/Ipratropium 1 ampul 07/28/21 14:00 08/02/21 08:23 Ipratropium/Albuterol Sulfate 3 Ml Ampul.Neb IH 1 ampul TID DEMIAN Administration Lipase/Protease/Amylase 1 each 07/29/21 13:01 Lipase 10,500/Protease 25,000/Amylase 43,750 (Units) Dr Cap FEEDTUBE PRN PRN For Clogged Feeding Tube Arformoterol Tartrate 15 mcg 07/28/21 20:00 08/02/21 08:23 Arformoterol 15 Mcg/2 Ml Nebu IH 15 mcg Q12HRT DEMIAN Administration Budesonide 0.5 mg 07/28/21 20:00 08/02/21 08:23 Budesonide 0.5 Mg/2 Ml Nebu IH 0.5 mg Q12HRT DEMIAN Administration Dextrose 50 ml 07/28/21 02:11 Dextrose 50% In Water (25gm) 50 Ml Syringe IV Q30MIN PRN Hypoglycemia Protocol Enoxaparin Sodium 100 mg 08/02/21 10:00 08/02/21 10:12 Enoxaparin 100 Mg/1 Ml Inj SUB-Q 100 mg Q24H DEMIAN Administration Protocol Famotidine 10 mg 08/02/21 10:00 08/02/21 10:10 Famotidine 20 Mg/2 Ml Inj IV 10 mg BID DEMIAN Administration Fentanyl 50 mcg 07/29/21 10:42 Fentanyl 100 Mcg/2 Ml Inj IV Q10MIN PRN ANALGESIA Hydralazine HCl 10 mg 07/30/21 14:52 Hydralazine 20 Mg/1 Ml Inj IV Q6H PRN SBP > 165 Hydrophilic Ointment 1 applic 07/29/21 10:42 Lip Therapy Vaseline TP Q2HR PRN Dry Lips Fentanyl Citrate 2,000 mcg in 100 mls @ 5.35 mls/hr 07/29/21 11:00 08/02/21 12:55 Fentanyl Drip Premix IV 1 mcg/kg/hr TITR DEMIAN 5.35 mls/hr Titration Protocol 1 MCG/KG/HR Midazolam HCl 100 mg/ Sodium 100 mls @ 2 mls/hr 07/29/21 11:00 08/02/21 12:55 Chloride IV 1 mg/hr TITR DEMIAN 1 mls/hr Titration Protocol 2 MG/HR Norepinephrine 4 mg in 250 mls @ 7.5 mls/hr 07/29/21 21:00 Levophed Drip 4 Mg/Ns 250 Ml IV TITR DEMIAN Protocol 2 MCG/MIN Cefepime HCl 2 gm in 100 mls @ 200 mls/hr 08/02/21 10:00 08/02/21 10:22 Cefepime/Ns 2 Gm/100 Ml IV 200 mls/hr Q12H [facility] Administration Protocol Sodium Chloride 1,000 mls @ 50 mls/hr 08/02/21 12:15 Nacl 0.9% 1000 Ml IV DIRECT [facility] Insulin Glargine 15 units 08/02/21 22:00 Insulin Glargine 100 Units/Ml SUB-Q QHS [facility] Insulin Human Lispro 0 unit 07/29/21 12:00 08/02/21 13:43 Insulin Lispro 100 Unit/Ml SUB-Q 3 unit Q6HR [facility] Administration Protocol Magnesium Hydroxide 30 ml 07/28/21 02:11 Magnesium Hydroxide (Mom) Oral Liqd Udc PO Q4H PRN Constipation Methylprednisolone Sodium Succinate 40 mg 07/28/21 06:00 08/02/21 13:43 Methylprednisolone Sod Succinate 40 Mg/1 Ml Inj IV 40 mg Q8HR [facility] Administration Midazolam HCl 2 mg 07/29/21 10:42 Midazolam 2 Mg/2 Ml Inj IV Q10MIN PRN Sedation Multi-Ingred Cream/Lotion/Oil/Oint 1 applic 07/29/21 10:42 Mineral Oil/Petrolatum, White Ophth Oint 3.5 Gm OU Q4HR PRN Dry Eye(s) Ondansetron HCl 4 mg 07/28/21 02:11 Ondansetron 4 Mg/2 Ml Inj IV Q8H PRN Nausea And Vomiting Quetiapine Fumarate 200 mg 08/01/21 22:00 08/02/21 10:23 Quetiapine 200 Mg Tab PO 200 mg BID [facility] Administration Senna/Docusate Sodium 1 tab 07/29/21 22:00 08/02/21 10:40 Sennosides/Docusate Sodium 8.6/50 Mg Tab FEEDTUBE 1 tab BID DEMIAN Administration Simple Syrup 15 ml 07/29/21 13:01 Simple Syrup 15 Ml FEEDTUBE PRN PRN Hypoglycemia Simple Syrup 30 ml 07/29/21 13:01 Simple Syrup 15 Ml FEEDTUBE PRN PRN Hypoglycemia Sodium Bicarbonate 325 mg 07/29/21 13:01 Sodium Bicarbonate 325 Mg Tab FEEDTUBE PRN PRN For Clogged Feeding Tube Sodium Chloride 10 ml 07/28/21 10:00 08/02/21 10:23 Sodium Chloride 0.9% 10 Ml Flush Syringe IV 10 ml BID DEMIAN Administration Sodium Chloride 10 ml 07/28/21 02:05 Sodium Chloride 0.9% 10 Ml Flush Syringe IV PRN PRN LINE FLUSH
--- NOTE | 2021-08-02 16:42 | Progress Note ---
Assessment and Plan Cultures: Blood culture no growth so far Sputum culture no growth so far A/P: 66-year-old female past medical history metastatic breast cancer, hypertension, diabetes, COPD now with: #Acute sepsis: With fevers and leukocytosis. Sepsis has been up and down in the setting of recent CODE BLUE. #Acute hypoxic respiratory failure: Currently on the vent. In the setting of pneumonia and metastatic breast cancer to the lungs #Metastatic breast cancer #WYATT: Renally dose medications. Recs: -Continue cefepime -Trend white count, fevers -Procalcitonin likely not useful in the setting of WYATT -Follow-up culture data Poor prognosis Thank you for the consult, we will continue to follow. Juan Johnson MD [facility], [place], [facility] ([facility] O: [phone] F: [phone] Subjective Date of service: 08/02/21 Principal diagnosis: Ac hypoxemic resp failure ; AE-COPD; H/O CA Breast; DM II; HTN Interval history: Afebrile, white count improved to 14.1. Cultures remain negative. Remains on the vent. Bronchoscopy performed today. Imaging personally reviewed: Chest x-ray: No opacity in the right lung apex, less likely to be pneumonia. Objective - Exam Narrative Exam: Physical Exam: Constitutional: Intubated, sedated Head, Ears, Nose: Normocephalic, atraumatic. External ears, nose normal Eyes: Conjunctivae/corneas clear. No icterus. No ptosis. Neck: ETT Oral: ETT Cardiovascular: S1, S2 normal. Respiratory: Good air entry, clear to auscultation bilaterally GI: Soft, non-tender; bowel sounds normal. No peritoneal signs. Musculoskeletal: No pedal edema, no cyanosis. Skin: No rash or abscess Hem/Lymphatic: No palpable cervical or supraclavicular nodes. No lymphangitis Psych: Sedated Neurological: Sedated - Constitutional Vitals: Vital Signs Temp Pulse Resp BP Pulse Ox 97.4 F L 76 16 139/72 99 08/02/21 12:27 08/02/21 15:20 08/02/21 15:20 08/02/21 15:20 08/02/21 15:20 Temperature -Last 24 Hours Temperature 97.4 F Temperature 98.2 F Temperature 98.5 F Temperature 98.5 F Temperature 97.9 F Temperature 97.5 F - Labs CBC & Chem 7: 08/02/21 Unknown 08/02/21 Unknown Labs: Abnormal lab results 08/01/21 08/01/21 08/02/21 Range/Units 17:25 23:53 04:00 WBC (4.5-11.0) K/mm3 RDW (13.2-15.2) % Lymph % (Auto) (13.4-35.0) % Lymph # (Auto) (1.2-5.4) K/mm3 [place] # (Auto) (0.0-0.8) K/mm3 Seg Neutrophils % (40.0-70.0) % Seg Neutrophils # (1.8-7.7) K/mm3 ABG Glucose 325 H (65-95) mg/dL Carboxyhemoglobin 0.4 L (0.5-1.5) BUN (7-17) mg/dL Creatinine (0.6-1.2) mg/dL Glucose (65-100) mg/dL POC Glucose 275 H 327 H (70-105) mg/dL Arterial Blood Glucose 325 H (65-95) mg/dL 08/02/21 08/02/21 08/02/21 Range/Units 12:03 Unknown Unknown WBC 14.1 H (4.5-11.0) K/mm3 RDW 16.3 H (13.2-15.2) % Lymph % (Auto) 5.1 L (13.4-35.0) % Lymph # (Auto) 0.7 L (1.2-5.4) K/mm3 [place] # (Auto) 0.9 H (0.0-0.8) K/mm3 Seg Neutrophils % 88.7 H (40.0-70.0) % Seg Neutrophils # 12.5 H (1.8-7.7) K/mm3 ABG Glucose (65-95) mg/dL Carboxyhemoglobin (0.5-1.5) BUN 72 H (7-17) mg/dL Creatinine 1.8 H (0.6-1.2) mg/dL Glucose 307 H (65-100) mg/dL POC Glucose 209 H (70-105) mg/dL Arterial Blood Glucose (65-95) mg/dL
[2021-08-02 17:08] LABS: Hepatitis C Virus Antibody Non-Reactive (NonReactive)
--- NOTE | 2021-08-02 17:13 | Operative Report ---
DATE OF SURGERY: 08/02/2021 PULMONARY PROCEDURE NOTE PROCEDURE: Fiberoptic bronchoscopy with endobronchial biopsies and brushings. INDICATION: Lung mass. CONSENT: Informed and witnessed obtained from the patient's and witnessed. COMPLICATIONS: No immediate procedural complications. PROCEDURE DETAILS: As follows: After informed and witnessed consent and premedication, the patient being on the mechanical ventilator on Versed and fentanyl drip, the fiberoptic bronchoscope was passed through the Bodai valve and advanced into the distal trachea. The distal trachea, the clarice looked clean and free of endobronchial tumor. A total of about 6 mL of 1% lidocaine was applied at the clarice and then a quick inspection was done of the endobronchial tree. From the entrance to the right upper lobe, I could see evidence of extrinsic compression in particular the apical division opening was the only patent airway there. The anterior and posterior divisions appeared closed, almost entirely shut. I could not get the fiberoptic bronchoscope into those subdivisions. The fiberoptic bronchoscope was then pulled out of the right upper lobe and inspections were done of the rest of the right endobronchial tree. I do not see any abnormal or endobronchial looking lesions or abnormal endobronchial mucosa. I then proceeded to go back into the right upper lobe. I wedged the fiberoptic bronchoscope at the opening to what I believe was the anterior division and from here, I tried to take endobronchial biopsies of the area of mucosa that looked most suspicious in the hope that I will indeed find some infiltration or get a diagnostic piece. Washings were taken immediately after each biopsy, a total of about 3 biopsies were done endobronchially. The brush was then again directed towards the opening of the anterior division. I was again unable to get the fiberoptic brush through into the subdivisions, but I did brush aggressively around the entrance to that subdivision around the area of abnormal mucosa. After this, again endobronchial washings were done, about 3 mL of 1:100,000 epinephrine was infiltrated into this area of the airway after the initial endobronchial biopsies just to ensure that there was not continued bleeding, which was really minimal and not brisk. I then proceeded to examine the left endobronchial tree, left upper lobe, lingular divisions, basilar segments were free of gross endobronchial tumor. I then again directed the fiberoptic bronchoscope back to the right upper lobe. There was still some minimal bleeding occurring there and I put another 3 mL of 1:10,000 epinephrine over there, left it in situ and withdrew the fiberoptic bronchoscope. The patient tolerated the procedure well, no immediate procedural complications. Transbronchial biopsies and grant needle biopsies were not done because the patient was on the mechanical ventilator and there was no fluoroscopy. Procedure was tolerated well and samples have been sent to the lab for pathological evaluation, cytological evaluation, but also for AFB smears and cultures. TID: [id number] RECEIPT: [id number] DC/KEIVN
[2021-08-02 17:39] LABS: Bilirubin,Urine NEG (Negative); Blood,Urine LG (Negative); Color,Urine Yellow (Yellow); Mucus,Urine FEW /HPF; Urobilinogen,Urine < 2.0 mg/dL (<2.0)
[2021-08-02 17:43] LABS: Hepatitis B Surface Antigen Nonreactive (Negative)
--- NOTE | 2021-08-02 17:55 | Progress Note ---
<KIMMY REYES - Last Filed: 08/02/21 18:03> Assessment and Plan Assessment and plan: This is a 66-year-old female with HTN, DM, HLD and COPD admitted for acute hypoxic respiratory failure, COPD exacerbation, pneumonia and left lower leg DVT Neuro: Acute metabolic encephalopathy -Sedated with Versed and fentanyl -RASS goal 0 to -1 -Added Seroquel -Avoid delirium -Reorientation as needed -Bilateral restraints for safety Cardio: h/o HTN, s/p cardiac arrest, h/o HLD -Echocardiogram completed-> EF 50 to 55% with mild diastolic dysfunction -Blood pressure monitor per protocol -Patient had cardiac arrest on 07/29 and was intubated -Antihypertensives prn Respiratory: Acute hypoxic respiratory failure, COPD extubation -CCM consulted, appreciate recommendations -VAP bundle -Daily SBT and SAT trials -Patient became hypotensive and tachypneic with SBT trial today -A.m. vent settings: Assist control tidal volume 450, rate 16, PEEP of 8, 30% FiO2 -Intubated with 7.50 ETT at 22 at the lips on 07/29 -Daily ABG and CXR -Continue SPO2 monitoring -Solu-Medrol GI: MO -NTR consult for tube feeding -BR: Senokot -24-hour net +725 -PPI : WYATT likely 2/2 vasomotor nephropathy -Nephrology consulted, appreciate recommendations -Presented with a BUN/creatinine of 1.9/19 but up trended to 2.6/61 on 07/31 -08/01 FeNA calculated at 0.13-> indicating prerenal -Strict intake and output -Avoid nephrotoxic medications -Renally dose medications -Elizabeth in place ID: Acute sepsis, pneumonia -Infectious disease consulted patient recommendations -ABX therapy: Cefepime -07/27 BC x2 with no growth after 4 days -07/29 tracheal aspirate with no growth -Monitor CBCs and fever curve Heme: Left lower leg DVT, leukocytosis -Patient is on Lovenox -SCDs to bilateral lower extremities while in bed -Trend CBC -evidenced on BLE US Oncology: h/o breast cancer, Lung mass -CXR shows suspicious nodular density at the left base -Bronchoscopy planned for a.m. -Heme/oncology consulted, appreciate recommendations -Heme/oncology recommends biopsy -Biopsy completed today; washings and brush sent for cytology, cell count and AFB -CEA, CA 153, CA 2729 pending Endo: h/o DM -SSI -Avoid hypoglycemia -Lantus The high probability of a clinically significant, sudden or life threatening deterioration of the [multi] system(s) required my full and direct attention, intervention and personal management. The aggregate critical care time was [90] minutes. This time is in addition to time spent performing reported procedures but includes the following: [x] Data Review and interpretation [x] Patient assessment and monitoring of vital signs [x] Documentation [x] Medication orders and management Disposition Plan: icu Total Time Spent with Patient (Minutes): 90 History Interval history: This is a 66-year-old female with HTN, DM, HLD and COPD who presented to emergency department on 07/28 with complaints of difficulty in breathing ongoing for the past few days via EMS. En route she was given Solu-Medrol IV magnesium and albuterol nebulizing treatment. Upon arrival to emergency department patient had multiple rounds of embolizing treatments and was subsequently placed on BiPAP with some improvement. Patient has been fully vaccinated. Work-up in the emergency department revealed CXR suspicious for right-sided pneumonia, nodular density in the left base and increased interstitial markings which may be chronic. Patient was admitted to the hospitalist service with electrolyte imbalances, leukocytosis, COPD exacerbation, hypoxia and possible pneumonia. 07/29/2021. Patient seen this morning with Shabbir-Chavira respiration/agonal breathing. RNEEE ABREU was called and patient was intubated and placed on mechani sid ventilation. Patient transferred to ICU. Critical care/pulmonary consulted. Patient currently with AC mode rate of 30, FiO2 100%, PEEP of 12. Continue IV antibiotics. Consult ID and oncology for further evaluation. Patient will likely need bronchoscopy for further evaluation of the lung mass. Doppler ultrasound revealedLLE DVT. Start anticoagulation. 07/30/2021. Patient appears much improved and more responsive this morning. Patient currently with AC mode ventilation rate of 24, tidal volume 450, PEEP of 8 and FiO2 35%. Spontaneous breathing trials with possible extubation today p er pulmonary. Bronchoscopy per pulmonary. Continue Lovenox twice daily for DVT. Continue IV antibiotics for sepsis/pneumonia. ID consultation pending. Follow-up CEA, CA 15-3, CA 2729. 07/31/2021. Echocardiogram reveals left ventricular size and function are normal. EF 50 to 55% with mild diastolic dysfunction. Patient currently with CPAP/PSV trial 11/02. Anticipate extubation today per pulmonary. Bronchoscopy per pulmonary. Continue Lovenox twice daily for DVT. Continue IV antibiotics for sepsis/pneumonia. ID consultation pending. Follow-up CEA, CA 15-3, CA 2729. 08/01: ALIYAH 08/02: Patient had a bronchoscopy today. Cell count, cytology and AFB sent from samples. Patient remains sedated on fentanyl and Versed. Patient and daughter Rosana were updated. Hospitalist Physical - Constitutional Vitals: Temp Pulse Resp BP Pulse Ox 98.4 F 75 16 147/84 99 08/02/21 16:00 08/02/21 17:00 08/02/21 17:00 08/02/21 17:00 08/02/21 17:00 General appearance: Present: no acute distress, well-nourished, other - EENT Eyes: Present: PERRL (Sedated) ENT: dentition normal - Neck Neck: Present: supple - Respiratory Respiratory effort: normal Respiratory: bilateral: diminished - Cardiovascular Rhythm: regular Heart Sounds: Present: S1 & S2, systolic murmur, diastolic murmur - Extremities Extremities: no ischemia, pulses intact, pulses symmetrical, No edema, normal temperature, normal color Peripheral Pulses: within normal limits - Abdominal General gastrointestinal: soft, non-tender, non-distended, normal bowel sounds - Integumentary Integumentary: Present: warm, dry - Psychiatric Psychiatric: other (Sedated) - Neurologic Neurologic: other (Sedated) - Allied Health Allied health notes reviewed: nursing, RT, social work Results - Labs CBC & Chem 7: 08/02/21 Unknown 08/02/21 Unknown Labs: Laboratory Last Values WBC 14.1 K/mm3 (4.5-11.0) H 08/02/21 Unknown RBC 3.79 M/mm3 (3.65-5.03) 08/02/21 Unknown Hgb 11.1 gm/dl (10.1-14.3) 08/02/21 Unknown Hct 33.4 % (30.3-42.9) 08/02/21 Unknown MCV 88 fl (79-97) 08/02/21 Unknown MCH 29 pg (28-32) 08/02/21 Unknown MCHC 33 % (30-34) 08/02/21 Unknown RDW 16.3 % (13.2-15.2) H 08/02/21 Unknown Plt Count 229 K/mm3 (140-440) 08/02/21 Unknown Lymph % (Auto) 5.1 % (13.4-35.0) L 08/02/21 Unknown Weber % (Auto) 6.1 % (0.0-7.3) 08/02/21 Unknown Eos % (Auto) 0.0 % (0.0-4.3) 08/02/21 Unknown Baso % (Auto) 0.1 % (0.0-1.8) 08/02/21 Unknown Lymph # (Auto) 0.7 K/mm3 (1.2-5.4) L 08/02/21 Unknown Weber # (Auto) 0.9 K/mm3 (0.0-0.8) H 08/02/21 Unknown Eos # (Auto) 0.0 K/mm3 (0.0-0.4) 08/02/21 Unknown Baso # (Auto) 0.0 K/mm3 (0.0-0.1) 08/02/21 Unknown Add Manual Diff Complete 08/01/21 05:50 Total Counted 100 08/01/21 05:50 Seg Neutrophils % 88.7 % (40.0-70.0) H 08/02/21 Unknown Seg Neuts % (Manual) 93.0 % (40.0-70.0) H 08/01/21 05:50 Band Neutrophils % 1.0 % 07/31/21 04:45 Lymphocytes % (Manual) 2.0 % (13.4-35.0) L 08/01/21 05:50 Monocytes % (Manual) 3.0 % (0.0-7.3) 08/01/21 05:50 Metamyelocytes % 1.0 % 08/01/21 05:50 Myelocytes % 1.0 % 08/01/21 05:50 Nucleated RBC % 3.0 % (0.0-0.9) H 08/01/21 05:50 Seg Neutrophils # 12.5 K/mm3 (1.8-7.7) H 08/02/21 Unknown Seg Neutrophils # Man 15.1 K/mm3 (1.8-7.7) H 08/01/21 05:50 Band Neutrophils # 0.0 K/mm3 08/01/21 05:50 Lymphocytes # (Manual) 0.3 K/mm3 (1.2-5.4) L 08/01/21 05:50 Abs React Lymphs (Man) 0.0 K/mm3 08/01/21 05:50 Monocytes # (Manual) 0.5 K/mm3 (0.0-0.8) 08/01/21 05:50 Eosinophils # (Manual) 0.0 K/mm3 (0.0-0.4) 08/01/21 05:50 Basophils # (Manual) 0.0 K/mm3 (0.0-0.1) 08/01/21 05:50 Metamyelocytes # 0.2 K/mm3 08/01/21 05:50 Myelocytes # 0.2 K/mm3 08/01/21 05:50 Promyelocytes # 0.0 K/mm3 08/01/21 05:50 Blast Cells # 0.0 K/mm3 08/01/21 05:50 WBC Morphology Not Reportable 08/01/21 05:50 Hypersegmented Neuts Not Reportable 08/01/21 05:50 Hyposegmented Neuts Not Reportable 08/01/21 05:50 Hypogranular Neuts Not Reportable 08/01/21 05:50 Smudge Cells Not Reportable 08/01/21 05:50 Toxic Granulation Not Reportable 08/01/21 05:50 Toxic Vacuolation Not Reportable 08/01/21 05:50 Dohle Bodies Not Reportable 08/01/21 05:50 Pelger-Huet Anomaly Not Reportable 08/01/21 05:50 Beryl Rods Not Reportable 08/01/21 05:50 Platelet Estimate Consistent w auto 08/01/21 05:50 Clumped Platelets Not Reportable 08/01/21 05:50 Plt Clumps, EDTA Not Reportable 08/01/21 05:50 Large Platelets Not Reportable 08/01/21 05:50 Giant Platelets Not Reportable 08/01/21 05:50 Platelet Satelliting Not Reportable 08/01/21 05:50 Plt Morphology Comment Not Reportable 08/01/21 05:50 RBC Morphology Normal 08/01/21 05:50 Dimorphic RBCs Not Reportable 08/01/21 05:50 Polychromasia Not Reportable 08/01/21 05:50 Hypochromasia Not Reportable 08/01/21 05:50 Poikilocytosis Not Reportable 08/01/21 05:50 Anisocytosis Not Reportable 08/01/21 05:50 Microcytosis Not Reportable 08/01/21 05:50 Macrocytosis Not Reportable 08/01/21 05:50 Spherocytes Not Reportable 08/01/21 05:50 Pappenheimer Bodies Not Reportable 08/01/21 05:50 Sickle Cells Not Reportable 08/01/21 05:50 Target Cells Not Reportable 08/01/21 05:50 Tear Drop Cells Not Reportable 08/01/21 05:50 Ovalocytes Not Reportable 08/01/21 05:50 Helmet Cells Not Reportable 08/01/21 05:50 [place] Bodies Not Reportable 08/01/21 05:50 Warren Rings Not Reportable 08/01/21 05:50 Estelita Cells Not Reportable 08/01/21 05:50 Bite Cells Not Reportable 08/01/21 05:50 Crenated Cell Not Reportable 08/01/21 05:50 Elliptocytes Not Reportable 08/01/21 05:50 Acanthocytes (Spur) Not Reportable 08/01/21 05:50 Rouleaux Not Reportable 08/01/21 05:50 Hemoglobin C Crystals Not Reportable 08/01/21 05:50 Schistocytes Not Reportable 08/01/21 05:50 Malaria parasites Not Reportable 08/01/21 05:50 Gurmeet Bodies Not Reportable 08/01/21 05:50 Hem Pathologist Commnt No 08/01/21 05:50 PT 14.0 Sec. (12.2-14.9) 07/29/21 04:44 INR 1.03 (0.87-1.13) 07/29/21 04:44 D-Dimer 852.47 ng/mlDDU (0-234) H 07/29/21 07:17 ABG pH 7.350 (7.320-7.450) 08/02/21 04:00 POC ABG pCO2 47.5 mmHg (32.0-48.0) 08/02/21 04:00 POC ABG pO2 95.0 mmHg (83-108) 08/02/21 04:00 POC ABG HCO3 25.6 08/02/21 04:00 ABG O2 Saturation 96.8 (0-100) 08/02/21 04:00 POC ABG Base Excess -0.3 08/02/21 04:00 ABG Hemoglobin 12.1 (12.0-17.5) 08/02/21 04:00 ABG Oxyhemoglobin 96.2 (94-98) 08/02/21 04:00 ABG Methemoglobin 0.2 (0.0-1.5) 08/02/21 04:00 ABG Sodium 138.0 mmol/L (136.0-145.0) 08/02/21 04:00 ABG Potassium 4.5 mmol/L (3.40-4.50) 08/02/21 04:00 ABG Chloride 104.0 mmol/L (98-107) 08/02/21 04:00 ABG Glucose 325 mg/dL (65-95) H 08/02/21 04:00 Carboxyhemoglobin 0.4 (0.5-1.5) L 08/02/21 04:00 FiO2 % 30.0 08/02/21 04:00 Sodium 142 mmol/L (137-145) 08/02/21 Unknown Potassium 4.6 mmol/L (3.6-5.0) 08/02/21 Unknown Chloride 102.5 mmol/L (98-107) 08/02/21 Unknown Carbon Dioxide 28 mmol/L (22-30) 08/02/21 Unknown Anion Gap 16 mmol/L 08/02/21 Unknown BUN 72 mg/dL (7-17) H 08/02/21 Unknown Creatinine 1.8 mg/dL (0.6-1.2) H 08/02/21 Unknown Estimated GFR 34 ml/min 08/02/21 Unknown BUN/Creatinine Ratio 40 % 08/02/21 Unknown Glucose 307 mg/dL (65-100) H 08/02/21 Unknown POC Glucose 210 mg/dL (70-105) H 08/02/21 17:03 Lactic Acid 6.10 mmol/L (0.7-2.0) H* 07/28/21 13:21 Calcium 8.8 mg/dL (8.4-10.2) 08/02/21 Unknown Total Bilirubin 0.30 mg/dL (0.1-1.2) 07/27/21 22:57 AST 98 units/L (5-40) H 07/27/21 22:57 ALT 90 units/L (7-56) H 07/27/21 22:57 Alkaline Phosphatase 98 units/L (35-129) 07/27/21 22:57 Total Protein 8.0 g/dL (6.3-8.2) 07/27/21 22:57 Albumin 4.2 g/dL (3.9-5) 07/27/21 22:57 Albumin/Globulin Ratio 1.1 % 07/27/21 22:57 Carcinoembryonic Ag <0.5 ng/mL (0.0-2.4) 07/31/21 04:45 Arterial Blood Glucose 325 mg/dL (65-95) H 08/02/21 04:00 Arterial Blood Ionized Calcium 4.6 mg/dL (4.6-5.3) 08/02/21 04:00 Urine Color Yellow (Yellow) 08/02/21 15:30 Urine Turbidity Cloudy (Clear) 08/02/21 15:30 Urine pH 5.0 (5.0-7.0) 08/02/21 15:30 Ur Specific Theodore 1.021 (1.003-1.030) 08/02/21 15:30 Urine Protein 30 mg/dl mg/dL (Negative) 08/02/21 15:30 Urine Glucose (UA) Neg mg/dL (Negative) 08/02/21 15:30 Urine Ketones Neg mg/dL (Negative) 08/02/21 15:30 Urine Blood Lg (Negative) 08/02/21 15:30 Urine Nitrite Neg (Negative) 08/02/21 15:30 Urine Bilirubin Neg (Negative) 08/02/21 15:30 Urine Urobilinogen < 2.0 mg/dL (<2.0) 08/02/21 15:30 Ur Leukocyte Esterase Sm (Negative) 08/02/21 15:30 Urine WBC (Auto) 47.0 /HPF (0.0-6.0) H 08/02/21 15:30 Urine RBC (Auto) 140.0 /HPF (0.0-6.0) 08/02/21 15:30 U Epithel Cells (Auto) < 1.0 /HPF (0-13.0) 08/02/21 15:30 Urine Mucus Few /HPF 08/02/21 15:30 Urine Creatinine 125.6 mg/dL (0.1-20.0) H 08/01/21 Unknown Urine Sodium 12 mmol/L 08/01/21 Unknown Coronavirus (PCR) Negative (Negative) 07/29/21 07:58 Hepatitis A IgM Ab Non-reactive (NonReactive) 08/02/21 15:40 Hep Bs Antigen Nonreactive (Negative) 08/02/21 15:40 Hep B Core IgM Ab Non-reactive (NonReactive) 08/02/21 15:40 Hepatitis C Antibody Non-reactive (NonReactive) 08/02/21 15:40 Microbiology: Microbiology 07/27/21 22:48 Peripheral/Venous Blood Culture - Final NO GROWTH AFTER 5 DAYS 07/27/21 22:57 Peripheral/Venous Blood Culture - Final NO GROWTH AFTER 5 DAYS Elizabeth/IV: Voiding Method Indwelling Catheter Active Medications - Current Medications Current Medications: Generic Name Dose Route Start Last Admin Trade Name Freq PRN Reason Stop Dose Admin Acetaminophen 650 mg 07/28/21 02:11 Acetaminophen 325 Mg Tab PO Q6H PRN Pain MILD(1-3)/Fever >100.5/GARCIA Albuterol/Ipratropium 1 ampul 07/28/21 14:00 08/02/21 14:25 Ipratropium/Albuterol Sulfate 3 Ml Ampul.Neb IH 1 ampul TID DEMIAN Administration Lipase/Protease/Amylase 1 each 07/29/21 13:01 Lipase 10,500/Protease 25,000/Amylase 43,750 (Units) Dr Gilles AMARO PRN PRN For Clogged Feeding Tube Arformoterol Tartrate 15 mcg 07/28/21 20:00 08/02/21 08:23 Arformoterol 15 Mcg/2 Ml Nebu IH 15 mcg Q12HRT DEMIAN Administration Budesonide 0.5 mg 07/28/21 20:00 08/02/21 08:23 Budesonide 0.5 Mg/2 Ml Nebu IH 0.5 mg Q12HRT DEMIAN Administration Dextrose 50 ml 07/28/21 02:11 Dextrose 50% In Water (25gm) 50 Ml Syringe IV Q30MIN PRN Hypoglycemia Protocol Enoxaparin Sodium 100 mg 08/02/21 10:00 08/02/21 10:12 Enoxaparin 100 Mg/1 Ml Inj SUB-Q 100 mg Q24H [facility] Administration Protocol Famotidine 10 mg 08/02/21 10:00 08/02/21 10:10 Famotidine 20 Mg/2 Ml Inj IV 10 mg BID DEMIAN Administration Fentanyl 50 mcg 07/29/21 10:42 Fentanyl 100 Mcg/2 Ml Inj IV Q10MIN PRN ANALGESIA Hydralazine HCl 10 mg 07/30/21 14:52 Hydralazine 20 Mg/1 Ml Inj IV Q6H PRN SBP > 165 Hydrophilic Ointment 1 applic 07/29/21 10:42 Lip Therapy Vaseline TP Q2HR PRN Dry Lips Fentanyl Citrate 2,000 mcg in 100 mls @ 5.35 mls/hr 07/29/21 11:00 08/02/21 12:55 Fentanyl Drip Premix IV 1 mcg/kg/hr TITR DEMIAN 5.35 mls/hr Titration Protocol 1 MCG/KG/HR Midazolam HCl 100 mg/ Sodium 100 mls @ 2 mls/hr 07/29/21 11:00 08/02/21 12:55 Chloride IV 1 mg/hr TITR DEMIAN 1 mls/hr Titration Protocol 2 MG/HR Norepinephrine 4 mg in 250 mls @ 7.5 mls/hr 07/29/21 21:00 Levophed Drip 4 Mg/Ns 250 Ml IV TITR DEMIAN Protocol 2 MCG/MIN Cefepime HCl 2 gm in 100 mls @ 200 mls/hr 08/02/21 10:00 08/02/21 10:22 Cefepime/Ns 2 Gm/100 Ml IV 200 mls/hr Q12H [facility] Administration Protocol Sodium Chloride 1,000 mls @ 50 mls/hr 08/02/21 12:15 Nacl 0.9% 1000 Ml IV DIRECT [facility] Insulin Glargine 15 units 08/02/21 22:00 Insulin Glargine 100 Units/Ml SUB-Q QHS [facility] Insulin Human Lispro 0 unit 07/29/21 12:00 08/02/21 13:43 Insulin Lispro 100 Unit/Ml SUB-Q 3 unit Q6HR [facility] Administration Protocol Magnesium Hydroxide 30 ml 07/28/21 02:11 Magnesium Hydroxide (Mom) Oral Liqd Udc PO Q4H PRN Constipation Methylprednisolone Sodium Succinate 40 mg 07/28/21 06:00 08/02/21 13:43 Methylprednisolone Sod Succinate 40 Mg/1 Ml Inj IV 40 mg Q8HR DEMIAN Administration Midazolam HCl 2 mg 07/29/21 10:42 Midazolam 2 Mg/2 Ml Inj IV Q10MIN PRN Sedation Multi-Ingred Cream/Lotion/Oil/Oint 1 applic 07/29/21 10:42 Mineral Oil/Petrolatum, White Ophth Oint 3.5 Gm OU Q4HR PRN Dry Eye(s) Ondansetron HCl 4 mg 07/28/21 02:11 Ondansetron 4 Mg/2 Ml Inj IV Q8H PRN Nausea And Vomiting Quetiapine Fumarate 200 mg 08/01/21 22:00 08/02/21 10:23 Quetiapine 200 Mg Tab PO 200 mg BID DEMIAN Administration Senna/Docusate Sodium 1 tab 07/29/21 22:00 08/02/21 10:40 Sennosides/Docusate Sodium 8.6/50 Mg Tab FEEDTUBE 1 tab BID DEMIAN Administration Simple Syrup 15 ml 07/29/21 13:01 Simple Syrup 15 Ml FEEDTUBE PRN PRN Hypoglycemia Simple Syrup 30 ml 07/29/21 13:01 Simple Syrup 15 Ml FEEDTUBE PRN PRN Hypoglycemia Sodium Bicarbonate 325 mg 07/29/21 13:01 Sodium Bicarbonate 325 Mg Tab FEEDTUBE PRN PRN For Clogged Feeding Tube Sodium Chloride 10 ml 07/28/21 10:00 08/02/21 10:23 Sodium Chloride 0.9% 10 Ml Flush Syringe IV 10 ml BID DEMIAN Administration Sodium Chloride 10 ml 07/28/21 02:05 Sodium Chloride 0.9% 10 Ml Flush Syringe IV PRN PRN LINE FLUSH Nutrition/Malnutrition Assess - Dietary Evaluation Nutrition/Malnutrition Findings: Nutrition Notes Start: 07/28/21 14:44 Freq: Status: Active Protocol: Document 08/02/21 10:58 JACKIE (Rec: 08/02/21 11:11 JACKIE [id number]) Nutrition Notes Initial or Follow up Reassessment Current Diagnosis COPD,Diabetes,Hypertension, Respiratory Failure Other Pertinent Diagnosis pneu Current Diet Vital AF at 50 ml/hr Labs/Tests BUN 72 Cr 1.8 BG 307 Pertinent Medications Solu Medrol Height 5 ft Weight 107 kg [place] Body Weight (kg) 45.45 BMI 46.0 Weight Status Morbidly Obese Subjective/Other Information Per RN, TF bottle out and no bottles on floor. RD called kitchen to get new TF. No signs of TF intolerance. Burn Absent Trauma Absent Current % PO Negligible #1 Nutrition Diagnosis Inadequate oral intake Diagnosis Progress(for reassessment Continues documentation) Is patient on ventilator? Yes Is Patient Ambulatory and/or Out of Bed No REE-(Glasco-St. Jeor-confined to bed) 1842.852 Kcal/Kg value to use for calculation 14 Approximate Energy Requirements Using 1498 kcal/Kg Calculation Used for Recommendations Kcal/kg Additional Notes Protein: (up to 2.5g/kg IBW) up to 134g Fluid: 1 ml/kcal or per MD Nutrition Intervention Change Diet Order: continue Nutrition Support: Vital AF 1.2 at 50 ml/hr Flush 75 ml q4h or per MD Kcal 1,440 Protein (gm) 90 Fluid (mL) 973 Goal #1 Meet at least 75% of protein and energy needs via TF Anticipated Discharge Needs: Unable to determine at this time Follow-Up By: 08/04/21 Additional Comments F/u: TF tolerance and TF at goal rate <LINDSAY FARR - Last Filed: 08/03/21 07:17> History Interval history: I saw and evaluated the patient. Discussed with the nurse practitioner and agree with their findings and plan as documented in this note. Hospitalist Physical - Constitutional Vitals: Temp Pulse Resp BP Pulse Ox 97.5 F L 105 H 19 137/77 97 08/03/21 03:54 08/03/21 06:00 08/03/21 06:00 08/03/21 06:00 08/03/21 06:00 Results - Labs CBC & Chem 7: 08/03/21 04:17 08/03/21 04:17 Labs: Laboratory Last Values WBC 13.9 K/mm3 (4.5-11.0) H 08/03/21 04:17 RBC 3.88 M/mm3 (3.65-5.03) 08/03/21 04:17 Hgb 11.1 gm/dl (10.1-14.3) 08/03/21 04:17 Hct 34.0 % (30.3-42.9) 08/03/21 04:17 MCV 88 fl (79-97) 08/03/21 04:17 MCH 29 pg (28-32) 08/03/21 04:17 MCHC 33 % (30-34) 08/03/21 04:17 RDW 16.0 % (13.2-15.2) H 08/03/21 04:17 Plt Count 240 K/mm3 (140-440) 08/03/21 04:17 Lymph % (Auto) 5.1 % (13.4-35.0) L 08/02/21 Unknown Weber % (Auto) 6.1 % (0.0-7.3) 08/02/21 Unknown Eos % (Auto) 0.0 % (0.0-4.3) 08/02/21 Unknown Baso % (Auto) 0.1 % (0.0-1.8) 08/02/21 Unknown Lymph # (Auto) 0.7 K/mm3 (1.2-5.4) L 08/02/21 Unknown Weber # (Auto) 0.9 K/mm3 (0.0-0.8) H 08/02/21 Unknown Eos # (Auto) 0.0 K/mm3 (0.0-0.4) 08/02/21 Unknown Baso # (Auto) 0.0 K/mm3 (0.0-0.1) 08/02/21 Unknown Add Manual Diff Complete 08/01/21 05:50 Total Counted 100 08/01/21 05:50 Seg Neutrophils % 88.7 % (40.0-70.0) H 08/02/21 Unknown Seg Neuts % (Manual) 93.0 % (40.0-70.0) H 08/01/21 05:50 Band Neutrophils % 1.0 % 07/31/21 04:45 Lymphocytes % (Manual) 2.0 % (13.4-35.0) L 08/01/21 05:50 Monocytes % (Manual) 3.0 % (0.0-7.3) 08/01/21 05:50 Metamyelocytes % 1.0 % 08/01/21 05:50 Myelocytes % 1.0 % 08/01/21 05:50 Nucleated RBC % 3.0 % (0.0-0.9) H 08/01/21 05:50 Seg Neutrophils # 12.5 K/mm3 (1.8-7.7) H 08/02/21 Unknown Seg Neutrophils # Man 15.1 K/mm3 (1.8-7.7) H 08/01/21 05:50 Band Neutrophils # 0.0 K/mm3 08/01/21 05:50 Lymphocytes # (Manual) 0.3 K/mm3 (1.2-5.4) L 08/01/21 05:50 Abs React Lymphs (Man) 0.0 K/mm3 08/01/21 05:50 Monocytes # (Manual) 0.5 K/mm3 (0.0-0.8) 08/01/21 05:50 Eosinophils # (Manual) 0.0 K/mm3 (0.0-0.4) 08/01/21 05:50 Basophils # (Manual) 0.0 K/mm3 (0.0-0.1) 08/01/21 05:50 Metamyelocytes # 0.2 K/mm3 08/01/21 05:50 Myelocytes # 0.2 K/mm3 08/01/21 05:50 Promyelocytes # 0.0 K/mm3 08/01/21 05:50 Blast Cells # 0.0 K/mm3 08/01/21 05:50 WBC Morphology Not Reportable 08/01/21 05:50 Hypersegmented Neuts Not Reportable 08/01/21 05:50 Hyposegmented Neuts Not Reportable 08/01/21 05:50 Hypogranular Neuts Not Reportable 08/01/21 05:50 Smudge Cells Not Reportable 08/01/21 05:50 Toxic Granulation Not Reportable 08/01/21 05:50 Toxic Vacuolation Not Reportable 08/01/21 05:50 Dohle Bodies Not Reportable 08/01/21 05:50 Pelger-Huet Anomaly Not Reportable 08/01/21 05:50 Beryl Rods Not Reportable 08/01/21 05:50 Platelet Estimate Consistent w auto 08/01/21 05:50 Clumped Platelets Not Reportable 08/01/21 05:50 Plt Clumps, EDTA Not Reportable 08/01/21 05:50 Large Platelets Not Reportable 08/01/21 05:50 Giant Platelets Not Reportable 08/01/21 05:50 Platelet Satelliting Not Reportable 08/01/21 05:50 Plt Morphology Comment Not Reportable 08/01/21 05:50 RBC Morphology Normal 08/01/21 05:50 Dimorphic RBCs Not Reportable 08/01/21 05:50 Polychromasia Not Reportable 08/01/21 05:50 Hypochromasia Not Reportable 08/01/21 05:50 Poikilocytosis Not Reportable 08/01/21 05:50 Anisocytosis Not Reportable 08/01/21 05:50 Microcytosis Not Reportable 08/01/21 05:50 Macrocytosis Not Reportable 08/01/21 05:50 Spherocytes Not Reportable 08/01/21 05:50 Pappenheimer Bodies Not Reportable 08/01/21 05:50 Sickle Cells Not Reportable 08/01/21 05:50 Target Cells Not Reportable 08/01/21 05:50 Tear Drop Cells Not Reportable 08/01/21 05:50 Ovalocytes Not Reportable 08/01/21 05:50 Helmet Cells Not Reportable 08/01/21 05:50 [place] Bodies Not Reportable 08/01/21 05:50 Warren Rings Not Reportable 08/01/21 05:50 Estelita Cells Not Reportable 08/01/21 05:50 Bite Cells Not Reportable 08/01/21 05:50 Crenated Cell Not Reportable 08/01/21 05:50 Elliptocytes Not Reportable 08/01/21 05:50 Acanthocytes (Spur) Not Reportable 08/01/21 05:50 Rouleaux Not Reportable 08/01/21 05:50 Hemoglobin C Crystals Not Reportable 08/01/21 05:50 Schistocytes Not Reportable 08/01/21 05:50 Malaria parasites Not Reportable 08/01/21 05:50 [place] Bodies Not Reportable 08/01/21 05:50 Hem Pathologist Commnt No 08/01/21 05:50 PT 14.0 Sec. (12.2-14.9) 07/29/21 04:44 INR 1.03 (0.87-1.13) 07/29/21 04:44 D-Dimer 852.47 ng/mlDDU (0-234) H 07/29/21 07:17 ABG pH 7.350 (7.320-7.450) 08/02/21 04:00 POC ABG pCO2 47.5 mmHg (32.0-48.0) 08/02/21 04:00 POC ABG pO2 95.0 mmHg (83-108) 08/02/21 04:00 POC ABG HCO3 25.6 08/02/21 04:00 ABG O2 Saturation 96.8 (0-100) 08/02/21 04:00 POC ABG Base Excess -0.3 08/02/21 04:00 ABG Hemoglobin 12.1 (12.0-17.5) 08/02/21 04:00 ABG Oxyhemoglobin 96.2 (94-98) 08/02/21 04:00 ABG Methemoglobin 0.2 (0.0-1.5) 08/02/21 04:00 ABG Sodium 138.0 mmol/L (136.0-145.0) 08/02/21 04:00 ABG Potassium 4.5 mmol/L (3.40-4.50) 08/02/21 04:00 ABG Chloride 104.0 mmol/L (98-107) 08/02/21 04:00 ABG Glucose 325 mg/dL (65-95) H 08/02/21 04:00 Carboxyhemoglobin 0.4 (0.5-1.5) L 08/02/21 04:00 FiO2 % 30.0 08/02/21 04:00 Sodium 142 mmol/L (137-145) 08/03/21 04:17 Potassium 4.3 mmol/L (3.6-5.0) 08/03/21 04:17 Chloride 105.4 mmol/L (98-107) 08/03/21 04:17 Carbon Dioxide 26 mmol/L (22-30) 08/03/21 04:17 Anion Gap 15 mmol/L 08/03/21 04:17 BUN 72 mg/dL (7-17) H 08/03/21 04:17 Creatinine 1.6 mg/dL (0.6-1.2) H 08/03/21 04:17 Estimated GFR 39 ml/min 08/03/21 04:17 BUN/Creatinine Ratio 45 % 08/03/21 04:17 Glucose 263 mg/dL (65-100) H 08/03/21 04:17 POC Glucose 280 mg/dL (70-105) H 08/03/21 05:30 Lactic Acid 6.10 mmol/L (0.7-2.0) H* 07/28/21 13:21 Calcium 8.4 mg/dL (8.4-10.2) 08/03/21 04:17 Total Bilirubin 0.30 mg/dL (0.1-1.2) 07/27/21 22:57 AST 98 units/L (5-40) H 07/27/21 22:57 ALT 90 units/L (7-56) H 07/27/21 22:57 Alkaline Phosphatase 98 units/L (35-129) 07/27/21 22:57 Total Protein 8.0 g/dL (6.3-8.2) 07/27/21 22:57 Albumin 4.2 g/dL (3.9-5) 07/27/21 22: Albumin/Globulin Ratio 1.1 % 07/27/21 22:57 Carcinoembryonic Ag <0.5 ng/mL (0.0-2.4) 07/31/21 04:45 Arterial Blood Glucose 325 mg/dL (65-95) H 08/02/21 04:00 Arterial Blood Ionized Calcium 4.6 mg/dL (4.6-5.3) 08/02/21 04:00 Urine Color Yellow (Yellow) 08/02/21 15:30 Urine Turbidity Cloudy (Clear) 08/02/21 15:30 Urine pH 5.0 (5.0-7.0) 08/02/21 15:30 Ur Specific Theodore 1.021 (1.003-1.030) 08/02/21 15:30 Urine Protein 30 mg/dl mg/dL (Negative) 08/02/21 15:30 Urine Glucose (UA) Neg mg/dL (Negative) 08/02/21 15:30 Urine Ketones Neg mg/dL (Negative) 08/02/21 15:30 Urine Blood Lg (Negative) 08/02/21 15:30 Urine Nitrite Neg (Negative) 08/02/21 15:30 Urine Bilirubin Neg (Negative) 08/02/21 15:30 Urine Urobilinogen < 2.0 mg/dL (<2.0) 08/02/21 15:30 Ur Leukocyte Esterase Sm (Negative) 08/02/21 15:30 Urine WBC (Auto) 47.0 /HPF (0.0-6.0) H 08/02/21 15:30 Urine RBC (Auto) 140.0 /HPF (0.0-6.0) 08/02/21 15:30 U Epithel Cells (Auto) < 1.0 /HPF (0-13.0) 08/02/21 15:30 Urine Mucus Few /HPF 08/02/21 15:30 Urine Creatinine 125.6 mg/dL (0.1-20.0) H 08/01/21 Unknown Urine Sodium 12 mmol/L 08/01/21 Unknown Coronavirus (PCR) Negative (Negative) 07/29/21 07:58 Hepatitis A IgM Ab Non-reactive (NonReactive) 08/02/21 15:40 Hep Bs Antigen Nonreactive (Negative) 08/02/21 15:40 Hep B Core IgM Ab Non-reactive (NonReactive) 08/02/21 15:40 Hepatitis C Antibody Non-reactive (NonReactive) 08/02/21 15:40 Microbiology: Microbiology 07/27/21 22:48 Peripheral/Venous Blood Culture - Final NO GROWTH AFTER 5 DAYS 07/27/21 22:57 Peripheral/Venous Blood Culture - Final NO GROWTH AFTER 5 DAYS Elizabeth/IV: Voiding Method Indwelling Catheter Active Medications - Current Medications Current Medications: Generic Name Dose Route Start Last Admin Trade Name Freq PRN Reason Stop Dose Admin Acetaminophen 650 mg 07/28/21 02:11 Acetaminophen 325 Mg Tab PO Q6H PRN Pain MILD(1-3)/Fever >100.5/GARCIA Albuterol/Ipratropium 1 ampul 07/28/21 14:00 08/02/21 20:34 Ipratropium/Albuterol Sulfate 3 Ml Ampul.Neb IH 1 ampul TID DEMIAN Administration Lipase/Protease/Amylase 1 each 07/29/21 13:01 Lipase 10,500/Protease 25,000/Amylase 43,750 (Units) Dr Gilles WRIGHTTUBE PRN PRN For Clogged Feeding Tube Arformoterol Tartrate 15 mcg 07/28/21 20:00 08/02/21 20:34 Arformoterol 15 Mcg/2 Ml Nebu IH 15 mcg Q12HRT DEMIAN Administration Budesonide 0.5 mg 07/28/21 20:00 08/03/21 00:24 Budesonide 0.5 Mg/2 Ml Nebu IH Not Given Q12HRT DEMIAN Dextrose 50 ml 07/28/21 02:11 Dextrose 50% In Water (25gm) 50 Ml Syringe IV Q30MIN PRN Hypoglycemia Protocol Enoxaparin Sodium 100 mg 08/02/21 10:00 08/02/21 10:12 Enoxaparin 100 Mg/1 Ml Inj SUB-Q 100 mg Q24H DEMIAN Administration Protocol Famotidine 10 mg 08/02/21 10:00 08/02/21 21:48 Famotidine 20 Mg/2 Ml Inj IV 10 mg BID DEMIAN Administration Fentanyl 50 mcg 07/29/21 10:42 Fentanyl 100 Mcg/2 Ml Inj IV Q10MIN PRN ANALGESIA Hydralazine HCl 10 mg 07/30/21 14:52 08/03/21 04:08 Hydralazine 20 Mg/1 Ml Inj IV 10 mg Q6H PRN Administration SBP > 165 Hydrophilic Ointment 1 applic 07/29/21 10:42 Lip Therapy Vaseline TP Q2HR PRN Dry Lips Fentanyl Citrate 2,000 mcg in 100 mls @ 5.35 mls/hr 07/29/21 11:00 08/02/21 23:15 Fentanyl Drip Premix IV 1 mcg/kg/hr TITR DEMIAN 5.35 mls/hr Administration Protocol 1 MCG/KG/HR Midazolam HCl 100 mg/ Sodium 100 mls @ 2 mls/hr 07/29/21 11:00 08/03/21 05:41 Chloride IV 0 mg/hr TITR DEMIAN 0 mls/hr Titration Protocol 2 MG/HR Norepinephrine 4 mg in 250 mls @ 7.5 mls/hr 07/29/21 21:00 Levophed Drip 4 Mg/Ns 250 Ml IV TITR DEMIAN Protocol 2 MCG/MIN Cefepime HCl 2 gm in 100 mls @ 200 mls/hr 08/02/21 10:00 08/02/21 21:47 Cefepime/Ns 2 Gm/100 Ml IV 200 mls/hr Q12H DEMIAN Administration Protocol Sodium Chloride 1,000 mls @ 50 mls/hr 08/02/21 12:15 Nacl 0.9% 1000 Ml IV DIRECT DEMIAN Insulin Glargine 15 units 08/02/21 22:00 08/02/21 22:08 Insulin Glargine 100 Units/Ml SUB-Q 15 units QHS DEMIAN Administration Insulin Human Lispro 0 unit 07/29/21 12:00 08/03/21 05:49 Insulin Lispro 100 Unit/Ml SUB-Q 4 unit Q6HR DEMIAN Administration Protocol Magnesium Hydroxide 30 ml 07/28/21 02:11 Magnesium Hydroxide (Mom) Oral Liqd Udc PO Q4H PRN Constipation Methylprednisolone Sodium Succinate 40 mg 07/28/21 06:00 08/03/21 05:06 Methylprednisolone Sod Succinate 40 Mg/1 Ml Inj IV 40 mg Q8HR DEMIAN Administration Midazolam HCl 2 mg 07/29/21 10:42 Midazolam 2 Mg/2 Ml Inj IV Q10MIN PRN Sedation Multi-Ingred Cream/Lotion/Oil/Oint 1 applic 07/29/21 10:42 Mineral Oil/Petrolatum, White Ophth Oint 3.5 Gm OU Q4HR PRN Dry Eye(s) Ondansetron HCl 4 mg 07/28/21 02:11 Ondansetron 4 Mg/2 Ml Inj IV Q8H PRN Nausea And Vomiting Quetiapine Fumarate 200 mg 08/01/21 22:00 08/02/21 21:47 Quetiapine 200 Mg Tab PO 200 mg BID DEMIAN Administration Senna/Docusate Sodium 1 tab 07/29/21 22:00 08/02/21 21:47 Sennosides/Docusate Sodium 8.6/50 Mg Tab FEEDTUBE 1 tab BID DEMIAN Administration Simple Syrup 15 ml 07/29/21 13:01 Simple Syrup 15 Ml FEEDTUBE PRN PRN Hypoglycemia Simple Syrup 30 ml 07/29/21 13:01 Simple Syrup 15 Ml FEEDTUBE PRN PRN Hypoglycemia Sodium Bicarbonate 325 mg 07/29/21 13:01 Sodium Bicarbonate 325 Mg Tab FEEDTUBE PRN PRN For Clogged Feeding Tube Sodium Chloride 10 ml 07/28/21 10:00 08/02/21 21:48 Sodium Chloride 0.9% 10 Ml Flush Syringe IV 10 ml BID DEMIAN Administration Sodium Chloride 10 ml 07/28/21 02:05 Sodium Chloride 0.9% 10 Ml Flush Syringe IV PRN PRN LINE FLUSH Nutrition/Malnutrition Assess - Dietary Evaluation Nutrition/Malnutrition Findings: Nutrition Notes Start: 07/28/21 14:44 Freq: Status: Active Protocol: Document 08/02/21 10:58 JACKIE (Rec: 08/02/21 11:11 JACKIE [id number]) Nutrition Notes Initial or Follow up Reassessment Current Diagnosis COPD,Diabetes,Hypertension, Respiratory Failure Other Pertinent Diagnosis pneu Current Diet Vital AF at 50 ml/hr Labs/Tests BUN 72 Cr 1.8 BG 307 Pertinent Medications Solu Medrol Height 5 ft Weight 107 kg [place] Body Weight (kg) 45.45 BMI 46.0 Weight Status Morbidly Obese Subjective/Other Information Per RN, TF bottle out and no bottles on floor. RD called kitchen to get new TF. No signs of TF intolerance. Burn Absent Trauma Absent Current % PO Negligible #1 Nutrition Diagnosis Inadequate oral intake Diagnosis Progress(for reassessment Continues documentation) Is patient on ventilator? Yes Is Patient Ambulatory and/or Out of Bed No REE-([place]-confined to bed) 1842.852 Kcal/Kg value to use for calculation 14 Approximate Energy Requirements Using 1498 kcal/Kg Calculation Used for Recommendations Kcal/kg Additional Notes Protein: (up to 2.5g/kg IBW) up to 134g Fluid: 1 ml/kcal or per MD Nutrition Intervention Change Diet Order: continue Nutrition Support: Vital AF 1.2 at 50 ml/hr Flush 75 ml q4h or per MD Kcal 1,440 Protein (gm) 90 Fluid (mL) 973 Goal #1 Meet at least 75% of protein and energy needs via TF Anticipated Discharge Needs: Unable to determine at this time Follow-Up By: 08/04/21 Additional Comments F/u: TF tolerance and TF at goal rate
[2021-08-02] MEDS ORDERED: INSULIN GLARGINE 100 UNITS/ML SUB-Q SCH (22:00)
[2021-08-03] MEDS: BUDESONIDE 0.5 MG/2 ML NEBU IH SCH ×3 (00:24→20:06)
[2021-08-03] MEDS: hydrALAZINE 20 MG/1 ML INJ IV PRN ×4 (04:08→17:31)
[2021-08-03 04:52] LABS: Hemoglobin 11.1 gm/dl (10.1-14.3); Mean Corpuscular HGB Conc 33 % (30-34); Mean Corpuscular Volume 88 fl (79-97); Platelet Count 240 K/mm3 (140-440); Red Blood Count 3.88 M/mm3 (3.65-5.03)
[2021-08-03 05:01] LABS: Calcium 8.4 mg/dL (8.4-10.2)
[2021-08-03] MEDS: methylPREDNISolone Sod Succinate 40 MG/1 ML INJ IV SCH ×3 (05:06→21:39)
[2021-08-03] MEDS: INSULIN LISPRO 100 UNIT/ML SUB-Q SCH ×3 (05:49→17:54)
[2021-08-03] MEDS: IPRATROPIUM/ALBUTEROL SULFATE 3 ML AMPUL.NEB IH SCH ×3 (08:52→20:07)
[2021-08-03] MEDS: ARFORMOTEROL 15 MCG/2 ML NEBU IH SCH ×2 (08:52→20:06)
[2021-08-03 09:19] LABS: INR 1.03 (0.87-1.13)
--- NOTE | 2021-08-03 09:46 | Progress Note ---
Assessment and Plan Impression * Acute kidney injury * Respiratory failure * Pulmonary infiltrates * History of breast cancer. [place] to be metastatic with mediastinal and lung masses Recommendations * Acute kidney injury most likely prerenal. Fractional excretion of sodium is 0.13%. * UA shows 1+ protein and large blood. Urine specific gravity is also high. Shall hydrate patient gently. Follow-up results of renal ultrasound as well as vasculitis work-up * Vent management as per ICU team * Patient is currently nonoliguric. Continue IV hydration * Avoid nephrotoxins * Monitor fluid status and electrolytes closely * No indication for renal replacement therapy at this time Subjective Date of service: 08/03/21 Principal diagnosis: Ac hypoxemic resp failure ; AE-COPD; H/O CA Breast; DM II; HTN Interval history: Patient remains on the ventilator. Currently on 30% FiO2. Oxygen saturation is 95%. Elizabeth catheter in place Objective - Vital Signs Vital signs: Vital Signs - 12hr 08/02/21 08/02/21 08/02/21 21:45 22:00 22:15 Temperature Pulse Rate 70 75 75 Pulse Rate [ Anterior Bilateral] Respiratory 16 16 16 Rate Respiratory Rate [Anterior Bilateral] Blood Pressure 127/69 143/71 134/75 O2 Sat by Pulse 100 100 100 Oximetry 08/02/21 08/02/21 08/02/21 22:30 22:45 23:00 Temperature Pulse Rate 72 70 72 Pulse Rate [ Anterior Bilateral] Respiratory 16 16 16 Rate Respiratory Rate [Anterior Bilateral] Blood Pressure 154/73 148/74 156/73 O2 Sat by Pulse 100 100 100 Oximetry 08/02/21 08/02/21 08/02/21 23:15 23:30 23:36 Temperature 97.6 F Pulse Rate 74 72 Pulse Rate [ Anterior Bilateral] Respiratory 16 16 Rate Respiratory Rate [Anterior Bilateral] Blood Pressure 149/72 142/68 O2 Sat by Pulse 100 100 Oximetry 08/02/21 08/02/21 08/03/21 23:45 23:47 00:00 Temperature Pulse Rate 71 71 71 Pulse Rate [ Anterior Bilateral] Respiratory 16 16 16 Rate Respiratory Rate [Anterior Bilateral] Blood Pressure 141/69 141/69 146/71 O2 Sat by Pulse 100 100 100 Oximetry 08/03/21 08/03/21 08/03/21 00:15 00:24 00:30 Temperature Pulse Rate 70 73 74 Pulse Rate [ Anterior Bilateral] Respiratory 16 16 Rate Respiratory Rate [Anterior Bilateral] Blood Pressure 147/67 149/68 152/69 O2 Sat by Pulse 100 100 98 Oximetry 08/03/21 08/03/21 08/03/21 00:44 00:45 01:00 Temperature Pulse Rate 73 75 75 Pulse Rate [ Anterior Bilateral] Respiratory 16 16 Rate Respiratory Rate [Anterior Bilateral] Blood Pressure 145/68 144/68 O2 Sat by Pulse 98 98 Oximetry 08/03/21 08/03/21 08/03/21 01:15 01:30 01:45 Temperature Pulse Rate 75 77 76 Pulse Rate [ Anterior Bilateral] Respiratory 16 16 16 Rate Respiratory Rate [Anterior Bilateral] Blood Pressure 142/67 146/67 150/66 O2 Sat by Pulse 99 99 99 Oximetry 08/03/21 08/03/21 08/03/21 02:00 02:15 02:30 Temperature Pulse Rate 75 76 76 Pulse Rate [ Anterior Bilateral] Respiratory 16 16 16 Rate Respiratory Rate [Anterior Bilateral] Blood Pressure 129/66 130/67 132/69 O2 Sat by Pulse 99 99 99 Oximetry 08/03/21 08/03/21 08/03/21 02:45 03:00 03:15 Temperature Pulse Rate 77 78 79 Pulse Rate [ Anterior Bilateral] Respiratory 16 16 16 Rate Respiratory Rate [Anterior Bilateral] Blood Pressure 130/67 133/70 131/71 O2 Sat by Pulse 99 99 99 Oximetry 08/03/21 08/03/21 08/03/21 03:30 03:45 03:54 Temperature 97.5 F L Pulse Rate 82 80 Pulse Rate [ Anterior Bilateral] Respiratory 16 16 Rate Respiratory Rate [Anterior Bilateral] Blood Pressure 149/77 158/74 O2 Sat by Pulse 97 99 Oximetry 08/03/21 08/03/21 08/03/21 04:00 04:08 04:15 Temperature Pulse Rate 81 79 78 Pulse Rate [ Anterior Bilateral] Respiratory 16 16 Rate Respiratory Rate [Anterior Bilateral] Blood Pressure 158/75 161/77 156/80 O2 Sat by Pulse 98 99 Oximetry 08/03/21 08/03/21 08/03/21 04:30 04:33 04:45 Temperature Pulse Rate 85 78 126 H Pulse Rate [ Anterior Bilateral] Respiratory 14 17 Rate Respiratory Rate [Anterior Bilateral] Blood Pressure 143/80 143/80 147/78 O2 Sat by Pulse 99 99 99 Oximetry 08/03/21 08/03/21 08/03/21 05:01 05:15 05:31 Temperature Pulse Rate 99 H 107 H 101 H Pulse Rate [ Anterior Bilateral] Respiratory 20 18 19 Rate Respiratory Rate [Anterior Bilateral] Blood Pressure 183/87 163/91 O2 Sat by Pulse 97 96 97 Oximetry 08/03/21 08/03/21 08/03/21 05:45 06:00 06:15 Temperature Pulse Rate 115 H 105 H 99 H Pulse Rate [ Anterior Bilateral] Respiratory 21 19 19 Rate Respiratory Rate [Anterior Bilateral] Blood Pressure 134/74 137/77 146/75 O2 Sat by Pulse 96 97 97 Oximetry 08/03/21 08/03/21 08/03/21 06:30 06:45 07:00 Temperature Pulse Rate 97 H 97 H 95 H Pulse Rate [ Anterior Bilateral] Respiratory 17 17 17 Rate Respiratory Rate [Anterior Bilateral] Blood Pressure 146/77 155/79 153/78 O2 Sat by Pulse 98 98 99 Oximetry 08/03/21 08/03/21 08/03/21 07:15 07:30 07:45 Temperature Pulse Rate 95 H 92 H 92 H Pulse Rate [ Anterior Bilateral] Respiratory 17 16 16 Rate Respiratory Rate [Anterior Bilateral] Blood Pressure 157/79 167/85 167/85 O2 Sat by Pulse 99 99 98 Oximetry 08/03/21 08/03/21 08/03/21 08:00 08:15 08:30 Temperature Pulse Rate 91 H 91 H 92 H Pulse Rate [ Anterior Bilateral] Respiratory 14 16 15 Rate Respiratory Rate [Anterior Bilateral] Blood Pressure 157/82 167/83 171/80 O2 Sat by Pulse 99 98 98 Oximetry 08/03/21 08/03/21 08/03/21 08:45 08:53 09:00 Temperature Pulse Rate 95 H 98 H Pulse Rate [ 94 H Anterior Bilateral] Respiratory 16 16 Rate Respiratory 18 Rate [Anterior Bilateral] Blood Pressure 129/84 133/82 O2 Sat by Pulse 97 100 Oximetry - General Appearance General appearance: well-developed, well-nourished, intubated EENT: ATNC, PERRL Neck: no JVD, no thyromegaly, no carotid bruit, supple Respiratory: Present: Wheezes (Bilateral wheezing) Cardiology: regular, normal heart rate, S1S2, no murmurs Gastrointestinal: normal, normoactive bowel sounds Integumentary: other (No edema) - Lab 08/03/21 04:17 08/03/21 04:17 Most recent lab results ABG pH 7.350 (7.320-7.450) 08/02/21 04:00 ABG O2 Saturation 96.8 (0-100) 08/02/21 04:00 Calcium 8.4 mg/dL (8.4-10.2) 08/03/21 04:17 Urine Creatinine 125.6 mg/dL (0.1-20.0) H 08/01/21 Unknown Urine Sodium 12 mmol/L 08/01/21 Unknown Medications & Allergies - Medications Allergies/Adverse Reactions: Allergies No Known Allergies Allergy (Verified 12/24/18 11:45) Home Medications: Home Medications Medication Instructions Recorded Confirmed Last Taken Type traMADoL [Ultram 50 MG tab] 50 mg PO Q6HR PRN #15 tablet 01/25/18 Unknown Rx Active Medications: Generic Name Dose Route Start Last Admin Trade Name Freq PRN Reason Stop Dose Admin Acetaminophen 650 mg 07/28/21 02:11 Acetaminophen 325 Mg Tab PO Q6H PRN Pain MILD(1-3)/Fever >100.5/GARCIA Albuterol/Ipratropium 1 ampul 07/28/21 14:00 08/03/21 08:52 Ipratropium/Albuterol Sulfate 3 Ml Ampul.Neb IH 1 ampul TID DEMIAN Administration Lipase/Protease/Amylase 1 each 07/29/21 13:01 Lipase 10,500/Protease 25,000/Amylase 43,750 (Units) Dr Gilles WRIGHTTUBE PRN PRN For Clogged Feeding Tube Arformoterol Tartrate 15 mcg 07/28/21 20:00 08/03/21 08:52 Arformoterol 15 Mcg/2 Ml Nebu IH 15 mcg Q12HRT DEMIAN Administration Budesonide 0.5 mg 07/28/21 20:00 08/03/21 08:52 Budesonide 0.5 Mg/2 Ml Nebu IH 0.5 mg Q12HRT DEMIAN Administration Dextrose 50 ml 07/28/21 02:11 Dextrose 50% In Water (25gm) 50 Ml Syringe IV Q30MIN PRN Hypoglycemia Protocol Enoxaparin Sodium 100 mg 08/02/21 10:00 08/02/21 10:12 Enoxaparin 100 Mg/1 Ml Inj SUB-Q 100 mg Q24H DEMIAN Administration Protocol Famotidine 10 mg 08/02/21 10:00 08/02/21 21:48 Famotidine 20 Mg/2 Ml Inj IV 10 mg BID DEMIAN Administration Fentanyl 50 mcg 07/29/21 10:42 Fentanyl 100 Mcg/2 Ml Inj IV Q10MIN PRN ANALGESIA Hydralazine HCl 10 mg 07/30/21 14:52 08/03/21 04:08 Hydralazine 20 Mg/1 Ml Inj IV 10 mg Q6H PRN Administration SBP > 165 Hydrophilic Ointment 1 applic 07/29/21 10:42 Lip Therapy Vaseline TP Q2HR PRN Dry Lips Fentanyl Citrate 2,000 mcg in 100 mls @ 5.35 mls/hr 07/29/21 11:00 08/02/21 23:15 Fentanyl Drip Premix IV 1 mcg/kg/hr TITR DEMIAN 5.35 mls/hr Administration Protocol 1 MCG/KG/HR Midazolam HCl 100 mg/ Sodium 100 mls @ 2 mls/hr 07/29/21 11:00 08/03/21 05:41 Chloride IV 0 mg/hr TITR DEMIAN 0 mls/hr Titration Protocol 2 MG/HR Norepinephrine 4 mg in 250 mls @ 7.5 mls/hr 07/29/21 21:00 Levophed Drip 4 Mg/Ns 250 Ml IV TITR DEMIAN Protocol 2 MCG/MIN Cefepime HCl 2 gm in 100 mls @ 200 mls/hr 08/02/21 10:00 08/02/21 21:47 Cefepime/Ns 2 Gm/100 Ml IV 200 mls/hr Q12H DEMIAN Administration Protocol Sodium Chloride 1,000 mls @ 50 mls/hr 08/02/21 12:15 Nacl 0.9% 1000 Ml IV DIRECT DEMIAN Insulin Glargine 15 units 08/02/21 22:00 08/02/21 22:08 Insulin Glargine 100 Units/Ml SUB-Q 15 units QHS DEMIAN Administration Insulin Human Lispro 0 unit 07/29/21 12:00 08/03/21 05:49 Insulin Lispro 100 Unit/Ml SUB-Q 4 unit Q6HR DEMIAN Administration Protocol Magnesium Hydroxide 30 ml 07/28/21 02:11 Magnesium Hydroxide (Mom) Oral Liqd Udc PO Q4H PRN Constipation Methylprednisolone Sodium Succinate 40 mg 07/28/21 06:00 08/03/21 05:06 Methylprednisolone Sod Succinate 40 Mg/1 Ml Inj IV 40 mg Q8HR DEMIAN Administration Midazolam HCl 2 mg 07/29/21 10:42 Midazolam 2 Mg/2 Ml Inj IV Q10MIN PRN Sedation Multi-Ingred Cream/Lotion/Oil/Oint 1 applic 07/29/21 10:42 Mineral Oil/Petrolatum, White Ophth Oint 3.5 Gm OU Q4HR PRN Dry Eye(s) Ondansetron HCl 4 mg 07/28/21 02:11 Ondansetron 4 Mg/2 Ml Inj IV Q8H PRN Nausea And Vomiting Quetiapine Fumarate 200 mg 08/01/21 22:00 08/02/21 21:47 Quetiapine 200 Mg Tab PO 200 mg BID DEMIAN Administration Senna/Docusate Sodium 1 tab 07/29/21 22:00 08/02/21 21:47 Sennosides/Docusate Sodium 8.6/50 Mg Tab FEEDTUBE 1 tab BID DEMIAN Administration Simple Syrup 15 ml 07/29/21 13:01 Simple Syrup 15 Ml FEEDTUBE PRN PRN Hypoglycemia Simple Syrup 30 ml 07/29/21 13:01 Simple Syrup 15 Ml FEEDTUBE PRN PRN Hypoglycemia Sodium Bicarbonate 325 mg 07/29/21 13:01 Sodium Bicarbonate 325 Mg Tab FEEDTUBE PRN PRN For Clogged Feeding Tube Sodium Chloride 10 ml 07/28/21 10:00 08/02/21 21:48 Sodium Chloride 0.9% 10 Ml Flush Syringe IV 10 ml BID DEMIAN Administration Sodium Chloride 10 ml 07/28/21 02:05 Sodium Chloride 0.9% 10 Ml Flush Syringe IV PRN PRN LINE FLUSH
[2021-08-03] MEDS: FAMOTIDINE 20 MG/2 ML INJ IV SCH ×2 (10:30→21:39)
[2021-08-03] MEDS: SENNOSIDES/DOCUSATE SODIUM 8.6/50 MG TAB FEEDTUBE SCH ×2 (10:30→21:38)
[2021-08-03] MEDS: QUEtiapine 200 MG TAB PO SCH (10:31)
[2021-08-03] MEDS: SODIUM CHLORIDE 0.45% 1000 ML 1,000 ML IV SCH ×2 (10:31→22:43)
[2021-08-03] MEDS: ENOXAPARIN 100 MG/1 ML INJ SUB-Q SCH (10:33)
[2021-08-03] MEDS: CEFEPIME/NS 2 GM/100 ML 2 GM/100 ML BAG IV SCH ×2 (10:34→21:40)
--- NOTE | 2021-08-03 11:17 | Progress Note ---
Assessment and Plan Acute hypoxemic respiratory failure secondary Lung Mass (? Lung vs Breast CA) Acute COPD exacerbation Possible hypercapnia History of right breast cancer Leukocytosis DM II Hypertension Hyperlipidemia Tobacco use disorder - oncologty consult placed - diagnosis discussed with NOK - continue Seroquel to spare IV sedatives - continue full anticoagulation for VTE - azotemia improving; appreciate nephrology input - continue care as below otherwise; - continue daily SAT and SBT assessment as tolerated - continue to wean supplemental oxygen for target O2 sat's > 90% acutely - VAP bundle addressed - continue lung protective strategies - continue bronchodilators (GLADIS & LABA) with pulmonary hygiene per RT - wean per pulmonary driven protocols otherwise - continue accuchecks with glycemic control per SSI (While critically ill target blood glucose of 140-180 mg/dL; avoid hypoglycemia) - sedation prn for target RASS 0 to -1 - avoid nephrotoxins, renally dose all medications - continue to avoid benzodiazepine's, reduce the possibility of delirium - complete AB's per ID rec's - prn analgesia per CPOT score - Maintenance of sleep-wake cycle, avoid delirium - enteral nutritional support at goal rate as tolerated - G.I. & VTE prophylaxis - PT/OT/ROM exercises - continue mobility protocols for pressure ulcer prophylaxis - Monitor hemodynamics closely - continue other care per attending / other consultants - discharge planning ongoing concurrently COVID SPECIFIC INTERVENTIONS - test result pending .... Re-evaluate in am & prn CONDITION: CRITICAL PROGNOSIS: GUARDED CODE STATUS: FULL CODE The high probability of a clinically significant, sudden or life-threatening deterioration of the [respiratory, cardiovascular, oncological & neurologic] system(s) required my full and direct attention, intervention and personal management. The aggregate critical care time was [32] minutes without overlap. Time includes spent on; [x] Data Review and interpretation [x] Patient assessment and monitoring of vital signs [x] Documentation [x] Medication orders and management Subjective Date of service: 08/03/21 Principal diagnosis: Ac hypoxemic resp failure ; AE-COPD; H/O CA Breast; DM II; HTN Interval history: Patient is seen today for: Acute hypoxemic respiratory failure; AE-COPD; Possible hypercapnia; H/O CA Breast; DM II; HTN Seen and examined at bedside; 24hour events reviewed; nursing and respiratory care staff consulted; no adverse overnight events reported to me; resting in bed; remains on MVS; bronch path consistent with Breast CA likely metastatic (? recurrent) Objective Vital Signs - 12hr 08/02/21 08/02/21 08/02/21 23:30 23:36 23:45 Temperature 97.6 F Pulse Rate 72 71 Pulse Rate [ Anterior Bilateral] Pulse Rate [ From Monitor] Pulse Rate [ Left Dorsalis Pedis] Pulse Rate [ Left Radial] Pulse Rate [ Right Dorsalis Pedis] Pulse Rate [ Right Radial] Respiratory 16 16 Rate Respiratory Rate [Anterior Bilateral] Blood Pressure 142/68 141/69 O2 Sat by Pulse 100 100 Oximetry 08/02/21 08/03/21 08/03/21 23:47 00:00 00:15 Temperature Pulse Rate 71 71 70 Pulse Rate [ Anterior Bilateral] Pulse Rate [ From Monitor] Pulse Rate [ Left Dorsalis Pedis] Pulse Rate [ Left Radial] Pulse Rate [ Right Dorsalis Pedis] Pulse Rate [ Right Radial] Respiratory 16 16 16 Rate Respiratory Rate [Anterior Bilateral] Blood Pressure 141/69 146/71 147/67 O2 Sat by Pulse 100 100 100 Oximetry 08/03/21 08/03/21 08/03/21 00:24 00:30 00:44 Temperature Pulse Rate 73 74 73 Pulse Rate [ Anterior Bilateral] Pulse Rate [ From Monitor] Pulse Rate [ Left Dorsalis Pedis] Pulse Rate [ Left Radial] Pulse Rate [ Right Dorsalis Pedis] Pulse Rate [ Right Radial] Respiratory 16 Rate Respiratory Rate [Anterior Bilateral] Blood Pressure 149/68 152/69 O2 Sat by Pulse 100 98 Oximetry 08/03/21 08/03/21 08/03/21 00:45 01:00 01:15 Temperature Pulse Rate 75 75 75 Pulse Rate [ Anterior Bilateral] Pulse Rate [ From Monitor] Pulse Rate [ Left Dorsalis Pedis] Pulse Rate [ Left Radial] Pulse Rate [ Right Dorsalis Pedis] Pulse Rate [ Right Radial] Respiratory 16 16 16 Rate Respiratory Rate [Anterior Bilateral] Blood Pressure 145/68 144/68 142/67 O2 Sat by Pulse 98 98 99 Oximetry 08/03/21 08/03/21 08/03/21 01:30 01:45 02:00 Temperature Pulse Rate 77 76 75 Pulse Rate [ Anterior Bilateral] Pulse Rate [ From Monitor] Pulse Rate [ Left Dorsalis Pedis] Pulse Rate [ Left Radial] Pulse Rate [ Right Dorsalis Pedis] Pulse Rate [ Right Radial] Respiratory 16 16 16 Rate Respiratory Rate [Anterior Bilateral] Blood Pressure 146/67 150/66 129/66 O2 Sat by Pulse 99 99 99 Oximetry 08/03/21 08/03/21 08/03/21 02:15 02:30 02:45 Temperature Pulse Rate 76 76 77 Pulse Rate [ Anterior Bilateral] Pulse Rate [ From Monitor] Pulse Rate [ Left Dorsalis Pedis] Pulse Rate [ Left Radial] Pulse Rate [ Right Dorsalis Pedis] Pulse Rate [ Right Radial] Respiratory 16 16 16 Rate Respiratory Rate [Anterior Bilateral] Blood Pressure 130/67 132/69 130/67 O2 Sat by Pulse 99 99 99 Oximetry 08/03/21 08/03/21 08/03/21 03:00 03:15 03:30 Temperature Pulse Rate 78 79 82 Pulse Rate [ Anterior Bilateral] Pulse Rate [ From Monitor] Pulse Rate [ Left Dorsalis Pedis] Pulse Rate [ Left Radial] Pulse Rate [ Right Dorsalis Pedis] Pulse Rate [ Right Radial] Respiratory 16 16 16 Rate Respiratory Rate [Anterior Bilateral] Blood Pressure 133/70 131/71 149/77 O2 Sat by Pulse 99 99 97 Oximetry 08/03/21 08/03/21 08/03/21 03:45 03:54 04:00 Temperature 97.5 F L Pulse Rate 80 81 Pulse Rate [ Anterior Bilateral] Pulse Rate [ From Monitor] Pulse Rate [ Left Dorsalis Pedis] Pulse Rate [ Left Radial] Pulse Rate [ Right Dorsalis Pedis] Pulse Rate [ Right Radial] Respiratory 16 16 Rate Respiratory Rate [Anterior Bilateral] Blood Pressure 158/74 158/75 O2 Sat by Pulse 99 98 Oximetry 08/03/21 08/03/21 08/03/21 04:08 04:15 04:30 Temperature Pulse Rate 79 78 85 Pulse Rate [ Anterior Bilateral] Pulse Rate [ From Monitor] Pulse Rate [ Left Dorsalis Pedis] Pulse Rate [ Left Radial] Pulse Rate [ Right Dorsalis Pedis] Pulse Rate [ Right Radial] Respiratory 16 14 Rate Respiratory Rate [Anterior Bilateral] Blood Pressure 161/77 156/80 143/80 O2 Sat by Pulse 99 99 Oximetry 08/03/21 08/03/21 08/03/21 04:33 04:45 05:01 Temperature Pulse Rate 78 126 H 99 H Pulse Rate [ Anterior Bilateral] Pulse Rate [ From Monitor] Pulse Rate [ Left Dorsalis Pedis] Pulse Rate [ Left Radial] Pulse Rate [ Right Dorsalis Pedis] Pulse Rate [ Right Radial] Respiratory 17 20 Rate Respiratory Rate [Anterior Bilateral] Blood Pressure 143/80 147/78 O2 Sat by Pulse 99 99 97 Oximetry 08/03/21 08/03/21 08/03/21 05:15 05:31 05:45 Temperature Pulse Rate 107 H 101 H 115 H Pulse Rate [ Anterior Bilateral] Pulse Rate [ From Monitor] Pulse Rate [ Left Dorsalis Pedis] Pulse Rate [ Left Radial] Pulse Rate [ Right Dorsalis Pedis] Pulse Rate [ Right Radial] Respiratory 18 19 21 Rate Respiratory Rate [Anterior Bilateral] Blood Pressure 183/87 163/91 134/74 O2 Sat by Pulse 96 97 96 Oximetry 08/03/21 08/03/21 08/03/21 06:00 06:15 06:30 Temperature Pulse Rate 105 H 99 H 97 H Pulse Rate [ Anterior Bilateral] Pulse Rate [ From Monitor] Pulse Rate [ Left Dorsalis Pedis] Pulse Rate [ Left Radial] Pulse Rate [ Right Dorsalis Pedis] Pulse Rate [ Right Radial] Respiratory 19 19 17 Rate Respiratory Rate [Anterior Bilateral] Blood Pressure 137/77 146/75 146/77 O2 Sat by Pulse 97 97 98 Oximetry 08/03/21 08/03/21 08/03/21 06:45 07:00 07:15 Temperature Pulse Rate 97 H 95 H 95 H Pulse Rate [ Anterior Bilateral] Pulse Rate [ From Monitor] Pulse Rate [ Left Dorsalis Pedis] Pulse Rate [ Left Radial] Pulse Rate [ Right Dorsalis Pedis] Pulse Rate [ Right Radial] Respiratory 17 17 17 Rate Respiratory Rate [Anterior Bilateral] Blood Pressure 155/79 153/78 157/79 O2 Sat by Pulse 98 99 99 Oximetry 08/03/21 08/03/21 08/03/21 07:30 07:45 08:00 Temperature 97.6 F Pulse Rate 92 H 92 H 91 H Pulse Rate [ Anterior Bilateral] Pulse Rate [ 90 From Monitor] Pulse Rate [ 76 Left Dorsalis Pedis] Pulse Rate [ 80 Left Radial] Pulse Rate [ 68 Right Dorsalis Pedis] Pulse Rate [ 74 Right Radial] Respiratory 16 16 16 Rate Respiratory Rate [Anterior Bilateral] Blood Pressure 167/85 167/85 157/82 O2 Sat by Pulse 99 98 99 Oximetry 08/03/21 08/03/21 08/03/21 08:15 08:30 08:45 Temperature Pulse Rate 91 H 92 H 95 H Pulse Rate [ Anterior Bilateral] Pulse Rate [ From Monitor] Pulse Rate [ Left Dorsalis Pedis] Pulse Rate [ Left Radial] Pulse Rate [ Right Dorsalis Pedis] Pulse Rate [ Right Radial] Respiratory 16 15 16 Rate Respiratory Rate [Anterior Bilateral] Blood Pressure 167/83 171/80 129/84 O2 Sat by Pulse 98 98 97 Oximetry 08/03/21 08/03/21 08/03/21 08:53 09:00 09:15 Temperature Pulse Rate 98 H 99 H Pulse Rate [ 94 H Anterior Bilateral] Pulse Rate [ From Monitor] Pulse Rate [ Left Dorsalis Pedis] Pulse Rate [ Left Radial] Pulse Rate [ Right Dorsalis Pedis] Pulse Rate [ Right Radial] Respiratory 16 16 Rate Respiratory 18 Rate [Anterior Bilateral] Blood Pressure 133/82 147/84 O2 Sat by Pulse 100 100 Oximetry 08/03/21 08/03/21 08/03/21 09:30 09:45 10:00 Temperature Pulse Rate 104 H 99 H 98 H Pulse Rate [ Anterior Bilateral] Pulse Rate [ From Monitor] Pulse Rate [ Left Dorsalis Pedis] Pulse Rate [ Left Radial] Pulse Rate [ Right Dorsalis Pedis] Pulse Rate [ Right Radial] Respiratory 16 18 16 Rate Respiratory Rate [Anterior Bilateral] Blood Pressure 179/84 140/83 145/82 O2 Sat by Pulse 96 96 96 Oximetry 08/03/21 11:06 Temperature Pulse Rate 99 H Pulse Rate [ Anterior Bilateral] Pulse Rate [ From Monitor] Pulse Rate [ Left Dorsalis Pedis] Pulse Rate [ Left Radial] Pulse Rate [ Right Dorsalis Pedis] Pulse Rate [ Right Radial] Respiratory Rate Respiratory Rate [Anterior Bilateral] Blood Pressure 167/83 O2 Sat by Pulse Oximetry Constitutional: no acute distress, other (eldely obese female with mildy increased respiratory effort at rest on MVS) Eyes: non-icteric ENT: oropharynx moist, other (ETT 24 cm [place]) Neck: supple, no lymphadenopathy, no JVD Effort: mildly labored Ascultation: Bilateral: diminished breath sounds, wheezes (central), rhonchi Percussion: Bilateral: not dull Cardiovascular: regular rate and rhythm Gastrointestinal: normoactive bowel sounds, soft, non-tender, non-distended Integumentary: normal Extremities: no cyanosis, no edema, pulses normal, no ischemia or petechiae Neurologic: normal mental status, non-focal exam, pupils equal and round, CN II- XII normal Psychiatric: mood appropriate, affect normal CBC and BMP: 08/09/21 10:00 08/09/21 10:00 ABG, PT/INR, D-dimer: ABG ABG pH 7.350 (7.320-7.450) 08/02/21 04:00 POC ABG pCO2 47.5 mmHg (32.0-48.0) 08/02/21 04:00 POC ABG pO2 95.0 mmHg (83-108) 08/02/21 04:00 POC ABG HCO3 25.6 08/02/21 04:00 ABG O2 Saturation 96.8 (0-100) 08/02/21 04:00 PT/INR, D-dimer PT 14.0 Sec. (12.2-14.9) 08/03/21 08:30 INR 1.03 (0.87-1.13) 08/03/21 08:30 D-Dimer 852.47 ng/mlDDU (0-234) H 07/29/21 07:17 Abnormal lab findings: Abnormal Labs 07/27/21 07/27/21 07/27/21 22:57 22:57 22:57 WBC 20.3 H Hct RDW Lymph % (Auto) Lymph # (Auto) [place] # (Auto) Seg Neutrophils % Seg Neuts % (Manual) 89.0 H Lymphocytes % (Manual) 9.0 L Nucleated RBC % Seg Neutrophils # Seg Neutrophils # Man 18.1 H Lymphocytes # (Manual) Monocytes # (Manual) D-Dimer ABG pH POC ABG pCO2 POC ABG pO2 ABG Oxyhemoglobin ABG Sodium ABG Potassium ABG Glucose Carboxyhemoglobin Potassium 3.5 L Chloride 96.9 L Carbon Dioxide 20 L BUN 19 H Creatinine Glucose 204 H POC Glucose Lactic Acid 7.20 H* Magnesium AST 98 H ALT 90 H Arterial Blood Glucose Arterial Blood Ionized Calcium Urine WBC (Auto) Urine Creatinine 07/28/21 07/28/21 07/28/21 01:31 07:49 10:00 WBC Hct RDW Lymph % (Auto) Lymph # (Auto) [place] # (Auto) Seg Neutrophils % Seg Neuts % (Manual) Lymphocytes % (Manual) Nucleated RBC % Seg Neutrophils # Seg Neutrophils # Man Lymphocytes # (Manual) Monocytes # (Manual) D-Dimer ABG pH POC ABG pCO2 POC ABG pO2 ABG Oxyhemoglobin ABG Sodium ABG Potassium ABG Glucose Carboxyhemoglobin Potassium Chloride Carbon Dioxide BUN Creatinine Glucose POC Glucose 194 H Lactic Acid 6.90 H* 6.70 H* Magnesium AST ALT Arterial Blood Glucose Arterial Blood Ionized Calcium Urine WBC (Auto) Urine Creatinine 07/28/21 07/28/21 07/28/21 12:41 13:21 16:21 WBC Hct RDW Lymph % (Auto) Lymph # (Auto) [place] # (Auto) Seg Neutrophils % Seg Neuts % (Manual) Lymphocytes % (Manual) Nucleated RBC % Seg Neutrophils # Seg Neutrophils # Man Lymphocytes # (Manual) Monocytes # (Manual) D-Dimer ABG pH POC ABG pCO2 POC ABG pO2 ABG Oxyhemoglobin ABG Sodium ABG Potassium ABG Glucose Carboxyhemoglobin Potassium Chloride Carbon Dioxide BUN Creatinine Glucose POC Glucose 159 H 155 H Lactic Acid 6.10 H* Magnesium AST ALT Arterial Blood Glucose Arterial Blood Ionized Calcium Urine WBC (Auto) Urine Creatinine 07/28/21 07/29/21 07/29/21 22:03 04:44 04:44 WBC 17.0 H Hct RDW Lymph % (Auto) Lymph # (Auto) [place] # (Auto) Seg Neutrophils % Seg Neuts % (Manual) 82.0 H Lymphocytes % (Manual) 11.0 L Nucleated RBC % Seg Neutrophils # Seg Neutrophils # Man 13.9 H Lymphocytes # (Manual) Monocytes # (Manual) 1.0 H D-Dimer ABG pH POC ABG pCO2 POC ABG pO2 ABG Oxyhemoglobin ABG Sodium ABG Potassium ABG Glucose Carboxyhemoglobin Potassium Chloride Carbon Dioxide BUN 23 H Creatinine Glucose 196 H POC Glucose 187 H Lactic Acid Magnesium AST ALT Arterial Blood Glucose Arterial Blood Ionized Calcium Urine WBC (Auto) Urine Creatinine 07/29/21 07/29/21 07/29/21 06:56 07:17 07:17 WBC 26.1 H Hct 43.3 H RDW 16.0 H Lymph % (Auto) Lymph # (Auto) [place] # (Auto) Seg Neutrophils % Seg Neuts % (Manual) 80.0 H Lymphocytes % (Manual) Nucleated RBC % Seg Neutrophils # Seg Neutrophils # Man 20.9 H Lymphocytes # (Manual) Monocytes # (Manual) D-Dimer ABG pH POC ABG pCO2 POC ABG pO2 ABG Oxyhemoglobin ABG Sodium ABG Potassium ABG Glucose Carboxyhemoglobin Potassium Chloride Carbon Dioxide 20 L D BUN 23 H Creatinine Glucose 308 H POC Glucose 165 H Lactic Acid Magnesium AST ALT Arterial Blood Glucose Arterial Blood Ionized Calcium Urine WBC (Auto) Urine Creatinine 07/29/21 07/29/21 07/29/21 07:17 09:16 10:30 WBC Hct RDW Lymph % (Auto) Lymph # (Auto) [place] # (Auto) Seg Neutrophils % Seg Neuts % (Manual) Lymphocytes % (Manual) Nucleated RBC % Seg Neutrophils # Seg Neutrophils # Man Lymphocytes # (Manual) Monocytes # (Manual) D-Dimer 852.47 H ABG pH 7.236 L POC ABG pCO2 56.0 H POC ABG pO2 266.4 H ABG Oxyhemoglobin 99.1 H ABG Sodium 132.3 L ABG Potassium 4.9 H ABG Glucose 202 H Carboxyhemoglobin 0.2 L Potassium Chloride Carbon Dioxide BUN Creatinine Glucose POC Glucose 271 H Lactic Acid Magnesium AST ALT Arterial Blood Glucose 202 H Arterial Blood Ionized Calcium Urine WBC (Auto) Urine Creatinine 07/29/21 07/29/21 07/30/21 17:54 23:32 05:08 WBC Hct RDW Lymph % (Auto) Lymph # (Auto) [place] # (Auto) Seg Neutrophils % Seg Neuts % (Manual) Lymphocytes % (Manual) Nucleated RBC % Seg Neutrophils # Seg Neutrophils # Man Lymphocytes # (Manual) Monocytes # (Manual) D-Dimer ABG pH POC ABG pCO2 POC ABG pO2 ABG Oxyhemoglobin ABG Sodium ABG Potassium ABG Glucose Carboxyhemoglobin Potassium Chloride Carbon Dioxide BUN Creatinine Glucose POC Glucose 168 H 205 H 214 H Lactic Acid Magnesium AST ALT Arterial Blood Glucose Arterial Blood Ionized Calcium Urine WBC (Auto) Urine Creatinine 07/30/21 07/30/21 07/30/21 06:01 11:32 17:34 WBC Hct RDW Lymph % (Auto) Lymph # (Auto) [place] # (Auto) Seg Neutrophils % Seg Neuts % (Manual) Lymphocytes % (Manual) Nucleated RBC % Seg Neutrophils # Seg Neutrophils # Man Lymphocytes # (Manual) Monocytes # (Manual) D-Dimer ABG pH 7.480 H POC ABG pCO2 23.6 L POC ABG pO2 280.0 H ABG Oxyhemoglobin 99.3 H ABG Sodium 133.7 L ABG Potassium ABG Glucose 232 H Carboxyhemoglobin 0 L Potassium Chloride Carbon Dioxide BUN Creatinine Glucose POC Glucose 207 H 239 H Lactic Acid Magnesium AST ALT Arterial Blood Glucose 232 H Arterial Blood Ionized Calcium 4.4 L Urine WBC (Auto) Urine Creatinine 07/30/21 07/31/21 07/31/21 23:39 03:34 04:45 WBC 15.0 H Hct RDW 15.5 H Lymph % (Auto) Lymph # (Auto) [place] # (Auto) Seg Neutrophils % Seg Neuts % (Manual) 89.0 H Lymphocytes % (Manual) 7.0 L Nucleated RBC % Seg Neutrophils # Seg Neutrophils # Man 13.4 H Lymphocytes # (Manual) 1.1 L Monocytes # (Manual) D-Dimer ABG pH 7.481 H POC ABG pCO2 31.8 L POC ABG pO2 ABG Oxyhemoglobin ABG Sodium 135.2 L ABG Potassium 3.3 L ABG Glucose 188 H Carboxyhemoglobin 0.1 L Potassium Chloride Carbon Dioxide BUN Creatinine Glucose POC Glucose 176 H Lactic Acid Magnesium AST ALT Arterial Blood Glucose 188 H Arterial Blood Ionized Calcium 4.4 L Urine WBC (Auto) Urine Creatinine 07/31/21 07/31/21 07/31/21 04:45 04:45 11:28 WBC Hct RDW Lymph % (Auto) Lymph # (Auto) [place] # (Auto) Seg Neutrophils % Seg Neuts % (Manual) Lymphocytes % (Manual) Nucleated RBC % Seg Neutrophils # Seg Neutrophils # Man Lymphocytes # (Manual) Monocytes # (Manual) D-Dimer ABG pH POC ABG pCO2 POC ABG pO2 ABG Oxyhemoglobin ABG Sodium ABG Potassium ABG Glucose Carboxyhemoglobin Potassium 3.4 L Chloride Carbon Dioxide BUN 61 H Creatinine 2.6 H D Glucose 176 H POC Glucose 195 H 245 H Lactic Acid Magnesium AST ALT Arterial Blood Glucose Arterial Blood Ionized Calcium Urine WBC (Auto) Urine Creatinine 07/31/21 07/31/21 08/01/21 17:32 23:58 01:00 WBC Hct RDW Lymph % (Auto) Lymph # (Auto) [place] # (Auto) Seg Neutrophils % Seg Neuts % (Manual) Lymphocytes % (Manual) Nucleated RBC % Seg Neutrophils # Seg Neutrophils # Man Lymphocytes # (Manual) Monocytes # (Manual) D-Dimer ABG pH POC ABG pCO2 POC ABG pO2 ABG Oxyhemoglobin ABG Sodium ABG Potassium ABG Glucose 284 H Carboxyhemoglobin 0.3 L Potassium Chloride Carbon Dioxide BUN Creatinine Glucose POC Glucose 251 H 294 H Lactic Acid Magnesium AST ALT Arterial Blood Glucose 284 H Arterial Blood Ionized Calcium Urine WBC (Auto) Urine Creatinine 08/01/21 08/01/21 08/01/21 05:50 05:50 06:11 WBC 16.2 H Hct RDW 15.5 H Lymph % (Auto) Lymph # (Auto) [place] # (Auto) Seg Neutrophils % Seg Neuts % (Manual) 93.0 H Lymphocytes % (Manual) 2.0 L Nucleated RBC % 3.0 H Seg Neutrophils # Seg Neutrophils # Man 15.1 H Lymphocytes # (Manual) 0.3 L Monocytes # (Manual) D-Dimer ABG pH POC ABG pCO2 POC ABG pO2 ABG Oxyhemoglobin ABG Sodium ABG Potassium ABG Glucose Carboxyhemoglobin Potassium Chloride Carbon Dioxide BUN 64 H Creatinine 1.9 H Glucose 277 H POC Glucose 256 H Lactic Acid Magnesium AST ALT Arterial Blood Glucose Arterial Blood Ionized Calcium Urine WBC (Auto) Urine Creatinine 08/01/21 08/01/21 08/01/21 11:39 17:25 23:53 WBC Hct RDW Lymph % (Auto) Lymph # (Auto) [place] # (Auto) Seg Neutrophils % Seg Neuts % (Manual) Lymphocytes % (Manual) Nucleated RBC % Seg Neutrophils # Seg Neutrophils # Man Lymphocytes # (Manual) Monocytes # (Manual) D-Dimer ABG pH POC ABG pCO2 POC ABG pO2 ABG Oxyhemoglobin ABG Sodium ABG Potassium ABG Glucose Carboxyhemoglobin Potassium Chloride Carbon Dioxide BUN Creatinine Glucose POC Glucose 289 H 275 H 327 H Lactic Acid Magnesium AST ALT Arterial Blood Glucose Arterial Blood Ionized Calcium Urine WBC (Auto) Urine Creatinine 08/01/21 08/02/21 08/02/21 Unknown 04:00 12:03 WBC Hct RDW Lymph % (Auto) Lymph # (Auto) [place] # (Auto) Seg Neutrophils % Seg Neuts % (Manual) Lymphocytes % (Manual) Nucleated RBC % Seg Neutrophils # Seg Neutrophils # Man Lymphocytes # (Manual) Monocytes # (Manual) D-Dimer ABG pH POC ABG pCO2 POC ABG pO2 ABG Oxyhemoglobin ABG Sodium ABG Potassium ABG Glucose 325 H Carboxyhemoglobin 0.4 L Potassium Chloride Carbon Dioxide BUN Creatinine Glucose POC Glucose 209 H Lactic Acid Magnesium AST ALT Arterial Blood Glucose 325 H Arterial Blood Ionized Calcium Urine WBC (Auto) Urine Creatinine 125.6 H 09/06/1508/02/21 08/02/21 15:30 17:03 23:17 WBC Hct RDW Lymph % (Auto) Lymph # (Auto) [place] # (Auto) Seg Neutrophils % Seg Neuts % (Manual) Lymphocytes % (Manual) Nucleated RBC % Seg Neutrophils # Seg Neutrophils # Man Lymphocytes # (Manual) Monocytes # (Manual) D-Dimer ABG pH POC ABG pCO2 POC ABG pO2 ABG Oxyhemoglobin ABG Sodium ABG Potassium ABG Glucose Carboxyhemoglobin Potassium Chloride Carbon Dioxide BUN Creatinine Glucose POC Glucose 210 H 265 H Lactic Acid Magnesium AST ALT Arterial Blood Glucose Arterial Blood Ionized Calcium Urine WBC (Auto) 47.0 H Urine Creatinine 08/02/21 08/02/21 08/03/21 Unknown Unknown 04:17 WBC 14.1 H Hct RDW 16.3 H Lymph % (Auto) 5.1 L Lymph # (Auto) 0.7 L [place] # (Auto) 0.9 H Seg Neutrophils % 88.7 H Seg Neuts % (Manual) Lymphocytes % (Manual) Nucleated RBC % Seg Neutrophils # 12.5 H Seg Neutrophils # Man Lymphocytes # (Manual) Monocytes # (Manual) D-Dimer ABG pH POC ABG pCO2 POC ABG pO2 ABG Oxyhemoglobin ABG Sodium ABG Potassium ABG Glucose Carboxyhemoglobin Potassium Chloride Carbon Dioxide BUN 72 H 72 H Creatinine 1.8 H 1.6 H Glucose 307 H 263 H POC Glucose Lactic Acid Magnesium AST ALT Arterial Blood Glucose Arterial Blood Ionized Calcium Urine WBC (Auto) Urine Creatinine 08/03/21 08/03/21 08/03/21 04:17 05:30 08:30 WBC 13.9 H Hct RDW 16.0 H Lymph % (Auto) Lymph # (Auto) [place] # (Auto) Seg Neutrophils % Seg Neuts % (Manual) Lymphocytes % (Manual) Nucleated RBC % Seg Neutrophils # Seg Neutrophils # Man Lymphocytes # (Manual) Monocytes # (Manual) D-Dimer ABG pH POC ABG pCO2 POC ABG pO2 ABG Oxyhemoglobin ABG Sodium ABG Potassium ABG Glucose Carboxyhemoglobin Potassium Chloride Carbon Dioxide BUN Creatinine Glucose POC Glucose 280 H Lactic Acid Magnesium 3.00 H AST ALT Arterial Blood Glucose Arterial Blood Ionized Calcium Urine WBC (Auto) Urine Creatinine Chest x-ray: image reviewed Allied health notes reviewed: nursing
--- NOTE | 2021-08-03 11:37 | XRay Report ---
CHEST - 1 VIEW 0927 hours INDICATION: hypoxia COMPARISON: Yesterday FINDINGS: Support devices: Stable support device positioning. Heart: Stable cardiomediastinal silhouette. Lungs/pleura: Partial atelectasis in the right upper lobe has resolved. The lungs are generally sage r on today's exam. No pleural effusion or pneumothorax. Additional findings: None. IMPRESSION: Partial atelectasis in the right upper lobe has resolved. The lungs are generally clear. Signer Name: Stanislaw Go Jr, MD Signed: 08/03/2021 11:33 AM Workstation Name: [id number]
[2021-08-03] MEDS: fentaNYL DRIP Premix 2,000 MCG/100 ML BAG IV SCH ×2 (11:55→22:41)
--- NOTE | 2021-08-03 16:25 | Progress Note ---
Assessment and Plan Cultures: Blood culture no growth so far Sputum culture no growth so far A/P: 66-year-old female past medical history metastatic breast cancer, hypertension, diabetes, COPD now with: #Acute sepsis: With fevers and leukocytosis. Sepsis has been up and down in the setting of recent CODE BLUE. #Acute hypoxic respiratory failure: Currently on the vent. In the setting of pneumonia and metastatic breast cancer to the lungs #Metastatic breast cancer #WYATT: Renally dose medications. Recs: -Continue cefepime, planned 8 days -Trend white count, fevers -Procalcitonin likely not useful in the setting of WYATT -Follow-up culture data Poor prognosis Thank you for the consult, we will continue to follow. Juan Johnson MD [facility] ([facility]) O: [phone] F: [phone] Subjective Date of service: 08/03/21 Principal diagnosis: Ac hypoxemic resp failure ; AE-COPD; H/O CA Breast; DM II; HTN Interval history: Afebrile, white count 13.9, which is approximately stable from yesterday. Cultures are remain negative. Remains on the vent. Imaging personally reviewed: Chest x-ray: Mostly clear. Objective - Exam Narrative Exam: Physical Exam: Constitutional: Intubated, sedated Head, Ears, Nose: Normocephalic, atraumatic. External ears, nose normal Eyes: Conjunctivae/corneas clear. No icterus. No ptosis. Neck: ETT Oral: ETT Cardiovascular: S1, S2 normal. Respiratory: Good air entry, clear to auscultation bilaterally GI: Soft, non-tender; bowel sounds normal. No peritoneal signs. Musculoskeletal: No pedal edema, no cyanosis. Skin: No rash or abscess Hem/Lymphatic: No palpable cervical or supraclavicular nodes. No lymphangitis Psych: Sedated Neurological: Sedated - Constitutional Vitals: Vital Signs Temp Pulse Resp BP Pulse Ox 97.8 F 101 H 15 144/79 97 08/03/21 12:00 08/03/21 15:00 08/03/21 15:00 08/03/21 15:00 08/03/21 15:00 Temperature -Last 24 Hours Temperature 97.8 F Temperature 97.6 F Temperature 97.5 F Temperature 97.6 F Temperature 97.8 F - Labs CBC & Chem 7: 08/03/21 04:17 08/03/21 04:17 Labs: Abnormal lab results 08/02/21 08/02/21 08/02/21 Range/Units 15:30 17:03 23:17 WBC (4.5-11.0) K/mm3 RDW (13.2-15.2) % ABG Glucose (65-95) mg/dL Carboxyhemoglobin (0.5-1.5) BUN (7-17) mg/dL Creatinine (0.6-1.2) mg/dL Glucose (65-100) mg/dL POC Glucose 210 H 265 H (70-105) mg/dL Lactic Acid (0.7-2.0) mmol/L Magnesium (1.7-2.3) mg/dL Arterial Blood Glucose (65-95) mg/dL Urine WBC (Auto) 47.0 H (0.0-6.0) /[facility] 08/03/21 08/03/21 08/03/21 Range/Units 04:17 04:17 05:30 WBC 13.9 H (4.5-11.0) K/mm3 RDW 16.0 H (13.2-15.2) % ABG Glucose (65-95) mg/dL Carboxyhemoglobin (0.5-1.5) BUN 72 H (7-17) mg/dL Creatinine 1.6 H (0.6-1.2) mg/dL Glucose 263 H (65-100) mg/dL POC Glucose 280 H (70-105) mg/dL Lactic Acid (0.7-2.0) mmol/L Magnesium (1.7-2.3) mg/dL Arterial Blood Glucose (65-95) mg/dL Urine WBC (Auto) (0.0-6.0) /[facility] 08/03/21 08/03/21 08/03/21 Range/Units 08:30 12:14 13:39 WBC (4.5-11.0) K/mm3 RDW (13.2-15.2) % ABG Glucose 306 H (65-95) mg/dL Carboxyhemoglobin 0.3 L (0.5-1.5) BUN (7-17) mg/dL Creatinine (0.6-1.2) mg/dL Glucose (65-100) mg/dL POC Glucose 287 H (70-105) mg/dL Lactic Acid (0.7-2.0) mmol/L Magnesium 3.00 H (1.7-2.3) mg/dL Arterial Blood Glucose 306 H (65-95) mg/dL Urine WBC (Auto) (0.0-6.0) /[facility] 08/03/21 Range/Units 15:11 WBC (4.5-11.0) K/mm3 RDW (13.2-15.2) % ABG Glucose (65-95) mg/dL Carboxyhemoglobin (0.5-1.5) BUN (7-17) mg/dL Creatinine (0.6-1.2) mg/dL Glucose (65-100) mg/dL POC Glucose (70-105) mg/dL Lactic Acid 2.10 H* (0.7-2.0) mmol/L Magnesium (1.7-2.3) mg/dL Arterial Blood Glucose (65-95) mg/dL Urine WBC (Auto) (0.0-6.0) /[facility]PF
--- NOTE | 2021-08-03 19:55 | Progress Note ---
<KIMMY REYES - Last Filed: 08/03/21 19:52> Assessment and Plan Assessment and plan: This is a 66-year-old female with HTN, DM, HLD and COPD admitted for acute hypoxic respiratory failure, COPD exacerbation, pneumonia and left lower leg DVT Neuro: Acute metabolic encephalopathy -Sedated with Versed and fentanyl -RASS goal 0 to -1 -Added Seroquel -Avoid delirium -Reorientation as needed -Bilateral restraints for safety Cardio: h/o HTN, s/p cardiac arrest, h/o HLD -Echocardiogram completed-> EF 50 to 55% with mild diastolic dysfunction -Blood pressure monitor per protocol -Patient had cardiac arrest on 07/29 and was intubated -Antihypertensives prn Respiratory: Acute hypoxic respiratory failure, COPD extubation -CCM consulted, appreciate recommendations -VAP bundle -Daily SBT and SAT trials -Patient became tachypneic with SBT trial today -A.m. vent settings: Assist control tidal volume 450, rate 16, PEEP of 6, 30% FiO2 -Intubated with 7.50 ETT at 22 at the lips on 07/29 -Daily ABG and CXR -Continue SPO2 monitoring -Solu-Medrol GI: MO -NTR consult for tube feeding -BR: Senokot -24-hour net -703 -PPI : Acute kidney injury likely 2/2 vasomotor nephropathy -Nephrology consulted, appreciate recommendations -Presented with a BUN/creatinine of 1.9/19 but up trended to 2.6/61 on 07/31 -08/01 FeNA calculated at 0.13-> indicating prerenal -Strict intake and output -Avoid nephrotoxic medications -Renally dose medications -Elizabeth in place ID: Acute sepsis, pneumonia -Infectious disease consulted patient recommendations -ABX therapy: Cefepime -07/27 BC x2 with no growth after 4 days -07/29 tracheal aspirate with no growth -Monitor CBCs and fever curve Heme: Left lower leg DVT, leukocytosis -Patient is on Lovenox -SCDs to bilateral lower extremities while in bed -Trend CBC -evidenced on BLE US Oncology: h/o breast cancer, Lung mass -CXR shows suspicious nodular density at the left base -Bronchoscopy planned for a.m. -Heme/oncology consulted, appreciate recommendations -Heme/oncology recommends biopsy -Biopsy completed 08/02; washings and brush sent for cytology, cell count and AFB- > preliminary results obtained, see report -CEA, CA 153, CA 2729 pending Endo: h/o DM -SSI -Avoid hypoglycemia -Lantus, titrate as needed The high probability of a clinically significant, sudden or life threatening deterioration of the [multi] system(s) required my full and direct attention, intervention and personal management. The aggregate critical care time was [60] minutes. This time is in addition to time spent performing reported procedures but includes the following: [x] Data Review and interpretation [x] Patient assessment and monitoring of vital signs [x] Documentation [x] Medication orders and management Disposition Plan: icu Total Time Spent with Patient (Minutes): 60 History Interval history: This is a 66-year-old female with HTN, DM, HLD and COPD who presented to emergency department on 07/28 with complaints of difficulty in breathing ongoing for the past few days via EMS. En route she was given Solu-Medrol IV magnesium and albuterol nebulizing treatment. Upon arrival to emergency department patient had multiple rounds of embolizing treatments and was subsequently placed on BiPAP with some improvement. Patient has been fully vaccinated. Work-up in the emergency department revealed CXR suspicious for right-sided pneumonia, nodular density in the left base and increased interstitial markings which may be chronic. Patient was admitted to the hospitalist service with electrolyte imbalances, leukocytosis, COPD exacerbation, hypoxia and possible pneumonia. 07/29/2021. Patient seen this morning with Shabbir-Chavira respiration/agonal breathing. CODE BLUE was called and patient was intubated and placed on mechanical ventilation. Patient transferred to ICU. Critical care/pulmonary consulted. Patient currently with AC mode rate of 30, FiO2 100%, PEEP of 12. Continue IV antibiotics. Consult ID and oncology for further evaluation. Patient will likely need bronchoscopy for further evaluation of the lung mass. Doppler ultrasound revealedLLE DVT. Start anticoagulation. 07/30/2021. Patient appears much improved and more responsive this morning. Patient currently with AC mode ventilation rate of 24, tidal volume 450, PEEP of 8 and FiO2 35%. Spontaneous breathing trials with possible extubation today per pulmonary. Bronchoscopy per pulmonary. Continue Lovenox twice daily for DVT. Continue IV antibiotics for sepsis/pneumonia. ID consultation pending. Follow-up CEA, CA 15-3, CA 2729. 07/31/2021. Echocardiogram reveals left ventricular size and function are normal. EF 50 to 55% with mild diastolic dysfunction. Patient currently with CPAP/PSV trial 11/02. Anticipate extubation today per pulmonary. Bronchoscopy per pulmonary. Continue Lovenox twice daily for DVT. Continue IV antibiotics for sepsis/pneumonia. ID consultation pending. Follow-up CEA, CA 15-3, CA 2729. 08/01: ALIYAH 08/02: Patient had a bronchoscopy today. Cell count, cytology and AFB sent from samples. Patient remains sedated on fentanyl and Versed. Patient and daughter Rosana were updated. 08/03: [facility] follow-up on [facility] specimens and was informed patient specimens indicate cancer. Communicated to Dr. Abbott and he stated he will update family. Hospitalist Physical - Constitutional Vitals: Temp Pulse Resp BP Pulse Ox 97.6 F 108 H 15 124/79 95 08/03/21 16:00 08/03/21 18:45 08/03/21 18:45 08/03/21 18:45 08/03/21 18:45 General appearance: Present: no acute distress, well-nourished, other - EENT Eyes: Present: PERRL ENT: dentition normal - Neck Neck: Present: normal ROM - Respiratory Respiratory effort: normal Respiratory: bilateral: diminished - Cardiovascular Rhythm: regular Heart Sounds: Present: S1 & S2. Absent: systolic murmur, diastolic murmur - Extremities Extremities: no ischemia, pulses intact, pulses symmetrical, No edema, normal temperature, normal color Peripheral Pulses: within normal limits - Abdominal General gastrointestinal: soft, non-tender, non-distended, normal bowel sounds - Integumentary Integumentary: Present: warm, dry - Psychiatric Psychiatric: other (sedated) - Neurologic Neurologic: other (sedated) - Allied Health Allied health notes reviewed: nursing, RT, social work Results - Labs CBC & Chem 7: 08/03/21 04:17 08/03/21 04:17 Labs: Laboratory Last Values WBC 13.9 K/mm3 (4.5-11.0) H 08/03/21 04:17 RBC 3.88 M/mm3 (3.65-5.03) 08/03/21 04:17 Hgb 11.1 gm/dl (10.1-14.3) 08/03/21 04:17 Hct 34.0 % (30.3-42.9) 08/03/21 04:17 MCV 88 fl (79-97) 08/03/21 04:17 MCH 29 pg (28-32) 08/03/21 04:17 MCHC 33 % (30-34) 08/03/21 04:17 RDW 16.0 % (13.2-15.2) H 08/03/21 04:17 Plt Count 240 K/mm3 (140-440) 08/03/21 04:17 Lymph % (Auto) 5.1 % (13.4-35.0) L 08/02/21 Unknown Thurston % (Auto) 6.1 % (0.0-7.3) 08/02/21 Unknown Eos % (Auto) 0.0 % (0.0-4.3) 08/02/21 Unknown Baso % (Auto) 0.1 % (0.0-1.8) 08/02/21 Unknown Lymph # (Auto) 0.7 K/mm3 (1.2-5.4) L 08/02/21 Unknown Thur[place] # (Auto) 0.9 K/mm3 (0.0-0.8) H 08/02/21 Unknown Eos # (Auto) 0.0 K/mm3 (0.0-0.4) 08/02/21 Unknown Baso # (Auto) 0.0 K/mm3 (0.0-0.1) 08/02/21 Unknown Add Manual Diff Complete 08/01/21 05:50 Total Counted 100 08/01/21 05:50 Seg Neutrophils % 88.7 % (40.0-70.0) H 08/02/21 Unknown Seg Neuts % (Manual) 93.0 % (40.0-70.0) H 08/01/21 05:50 Band Neutrophils % 1.0 % 07/31/21 04:45 Lymphocytes % (Manual) 2.0 % (13.4-35.0) L 08/01/21 05:50 Monocytes % (Manual) 3.0 % (0.0-7.3) 08/01/21 05:50 Metamyelocytes % 1.0 % 08/01/21 05:50 Myelocytes % 1.0 % 08/01/21 05:50 Nucleated RBC % 3.0 % (0.0-0.9) H 08/01/21 05:50 Seg Neutrophils # 12.5 K/mm3 (1.8-7.7) H 08/02/21 Unknown Seg Neutrophils # Man 15.1 K/mm3 (1.8-7.7) H 08/01/21 05:50 Band Neutrophils # 0.0 K/mm3 08/01/21 05:50 Lymphocytes # (Manual) 0.3 K/mm3 (1.2-5.4) L 08/01/21 05:50 Abs React Lymphs (Man) 0.0 K/mm3 08/01/21 05:50 Monocytes # (Manual) 0.5 K/mm3 (0.0-0.8) 08/01/21 05:50 Eosinophils # (Manual) 0.0 K/mm3 (0.0-0.4) 08/01/21 05:50 Basophils # (Manual) 0.0 K/mm3 (0.0-0.1) 08/01/21 05:50 Metamyelocytes # 0.2 K/mm3 08/01/21 05:50 Myelocytes # 0.2 K/mm3 08/01/21 05:50 Promyelocytes # 0.0 K/mm3 08/01/21 05:50 Blast Cells # 0.0 K/mm3 08/01/21 05:50 WBC Morphology Not Reportable 08/01/21 05:50 Hypersegmented Neuts Not Reportable 08/01/21 05:50 Hyposegmented Neuts Not Reportable 08/01/21 05:50 Hypogranular Neuts Not Reportable 08/01/21 05:50 Smudge Cells Not Reportable 08/01/21 05:50 Toxic Granulation Not Reportable 08/01/21 05:50 Toxic Vacuolation Not Reportable 08/01/21 05:50 Dohle Bodies Not Reportable 08/01/21 05:50 Pelger-Huet Anomaly Not Reportable 08/01/21 05:50 Beryl Rods Not Reportable 08/01/21 05:50 Platelet Estimate Consistent w auto 08/01/21 05:50 Clumped Platelets Not Reportable 08/01/21 05:50 Plt Clumps, EDTA Not Reportable 08/01/21 05:50 Large Platelets Not Reportable 08/01/21 05:50 Giant Platelets Not Reportable 08/01/21 05:50 Platelet Satelliting Not Reportable 08/01/21 05:50 Plt Morphology Comment Not Reportable 08/01/21 05:50 RBC Morphology Normal 08/01/21 05:50 Dimorphic RBCs Not Reportable 08/01/21 05:50 Polychromasia Not Reportable 08/01/21 05:50 Hypochromasia Not Reportable 08/01/21 05:50 Poikilocytosis Not Reportable 08/01/21 05:50 Anisocytosis Not Reportable 08/01/21 05:50 Microcytosis Not Reportable 08/01/21 05:50 Macrocytosis Not Reportable 08/01/21 05:50 Spherocytes Not Reportable 08/01/21 05:50 Pappenheimer Bodies Not Reportable 08/01/21 05:50 Sickle Cells Not Reportable 08/01/21 05:50 Target Cells Not Reportable 08/01/21 05:50 Tear Drop Cells Not Reportable 08/01/21 05:50 Ovalocytes Not Reportable 08/01/21 05:50 Helmet Cells Not Reportable 08/01/21 05:50 [place] Bodies Not Reportable 08/01/21 05:50 [place] Rings Not Reportable 08/01/21 05:50 Estelita Cells Not Reportable 08/01/21 05:50 Bite Cells Not Reportable 08/01/21 05:50 Crenated Cell Not Reportable 08/01/21 05:50 Elliptocytes Not Reportable 08/01/21 05:50 Acanthocytes (Spur) Not Reportable 08/01/21 05:50 Rouleaux Not Reportable 08/01/21 05:50 Hemoglobin C Crystals Not Reportable 08/01/21 05:50 Schistocytes Not Reportable 08/01/21 05:50 Malaria parasites Not Reportable 08/01/21 05:50 Gurmeet Bodies Not Reportable 08/01/21 05:50 Hem Pathologist Commnt No 08/01/21 05:50 PT 14.0 Sec. (12.2-14.9) 08/03/21 08:30 INR 1.03 (0.87-1.13) 08/03/21 08:30 D-Dimer 852.47 ng/mlDDU (0-234) H 07/29/21 07:17 ABG pH 7.387 (7.320-7.450) 08/03/21 13:39 POC ABG pCO2 42.1 mmHg (32.0-48.0) 08/03/21 13:39 POC ABG pO2 84.7 mmHg (83-108) 08/03/21 13:39 POC ABG HCO3 24.7 08/03/21 13:39 ABG O2 Saturation 95.8 (0-100) 08/03/21 13:39 POC ABG Base Excess -0.3 08/03/21 13:39 ABG Hemoglobin 12.9 (12.0-17.5) 08/03/21 13:39 ABG Oxyhemoglobin 95.5 (94-98) 08/03/21 13:39 ABG Methemoglobin 0 (0.0-1.5) 08/03/21 13:39 ABG Sodium 138.1 mmol/L (136.0-145.0) 08/03/21 13:39 ABG Potassium 4.5 mmol/L (3.40-4.50) 08/03/21 13:39 ABG Chloride 106.0 mmol/L (98-107) 08/03/21 13:39 ABG Glucose 306 mg/dL (65-95) H 08/03/21 13:39 Carboxyhemoglobin 0.3 (0.5-1.5) L 08/03/21 13:39 FiO2 % 30.0 08/03/21 13:39 Sodium 142 mmol/L (137-145) 08/03/21 04:17 Potassium 4.3 mmol/L (3.6-5.0) 08/03/21 04:17 Chloride 105.4 mmol/L (98-107) 08/03/21 04:17 Carbon Dioxide 26 mmol/L (22-30) 08/03/21 04:17 Anion Gap 15 mmol/L 08/03/21 04:17 BUN 72 mg/dL (7-17) H 08/03/21 04:17 Creatinine 1.6 mg/dL (0.6-1.2) H 08/03/21 04:17 Estimated GFR 39 ml/min 08/03/21 04:17 BUN/Creatinine Ratio 45 % 08/03/21 04:17 Glucose 263 mg/dL (65-100) H 08/03/21 04:17 POC Glucose 282 mg/dL (70-105) H 08/03/21 16:52 Lactic Acid 2.10 mmol/L (0.7-2.0) H* 08/03/21 15:11 Calcium 8.4 mg/dL (8.4-10.2) 08/03/21 04:17 Phosphorus 3.30 mg/dL (2.5-4.5) 08/03/21 08:30 Magnesium 3.00 mg/dL (1.7-2.3) H 08/03/21 08:30 Total Bilirubin 0.30 mg/dL (0.1-1.2) 07/27/21 22:57 AST 98 units/L (5-40) H 07/27/21 22:57 ALT 90 units/L (7-56) H 07/27/21 22:57 Alkaline Phosphatase 98 units/L (35-129) 07/27/21 22:57 Total Protein 8.0 g/dL (6.3-8.2) 07/27/21 22:57 Albumin 4.2 g/dL (3.9-5) 07/27/21 22:57 Albumin/Globulin Ratio 1.1 % 07/27/21 22:57 Carcinoembryonic Ag <0.5 ng/mL (0.0-2.4) 07/31/21 04:45 Arterial Blood Glucose 306 mg/dL (65-95) H 08/03/21 13:39 Arterial Blood Ionized Calcium 4.6 mg/dL (4.6-5.3) 08/03/21 13:39 Urine Color Yellow (Yellow) 08/02/21 15:30 Urine Turbidity Cloudy (Clear) 08/02/21 15:30 Urine pH 5.0 (5.0-7.0) 08/02/21 15:30 Ur Specific [place] 1.021 (1.003-1.030) 08/02/21 15:30 Urine Protein 30 mg/dl mg/dL (Negative) 08/02/21 15:30 Urine Glucose (UA) Neg mg/dL (Negative) 08/02/21 15:30 Urine Ketones Neg mg/dL (Negative) 08/02/21 15:30 Urine Blood Lg (Negative) 08/02/21 15:30 Urine Nitrite Neg (Negative) 08/02/21 15:30 Urine Bilirubin Neg (Negative) 08/02/21 15:30 Urine Urobilinogen < 2.0 mg/dL (<2.0) 08/02/21 15:30 Ur Leukocyte Esterase Sm (Negative) 08/02/21 15:30 Urine WBC (Auto) 47.0 /HPF (0.0-6.0) H 08/02/21 15:30 Urine RBC (Auto) 140.0 /HPF (0.0-6.0) 08/02/21 15:30 U Epithel Cells (Auto) < 1.0 /HPF (0-13.0) 08/02/21 15:30 Urine Mucus Few /HPF 08/02/21 15:30 Urine Creatinine 125.6 mg/dL (0.1-20.0) H 08/01/21 Unknown Urine Sodium 12 mmol/L 08/01/21 Unknown Coronavirus (PCR) Negative (Negative) 07/29/21 07:58 Hepatitis A IgM Ab Non-reactive (NonReactive) 08/02/21 15:40 Hep Bs Antigen Nonreactive (Negative) 08/02/21 15:40 Hep B Core IgM Ab Non-reactive (NonReactive) 08/02/21 15:40 Hepatitis C Antibody Non-reactive (NonReactive) 08/02/21 15:40 AFB Identification Negative 08/02/21 14:30 Microbiology: Microbiology 08/02/21 15:30 Urine,Clean Catch Urine Culture - Preliminary NO GROWTH AFTER 24 HOURS Elizabeth/IV: Voiding Method Indwelling Catheter Active Medications - Current Medications Current Medications: Generic Name Dose Route Start Last Admin Trade Name Freq PRN Reason Stop Dose Admin Acetaminophen 650 mg 07/28/21 02:11 Acetaminophen 325 Mg Tab PO Q6H PRN Pain MILD(1-3)/Fever >100.5/GARCIA Albuterol/Ipratropium 1 ampul 07/28/21 14:00 08/03/21 14:16 Ipratropium/Albuterol Sulfate 3 Ml Ampul.Neb IH 1 ampul TID DEMIAN Administration Lipase/Protease/Amylase 1 each 07/29/21 13:01 Lipase 10,500/Protease 25,000/Amylase 43,750 (Units) Dr Campoverde FEEDTUBE PRN PRN For Clogged Feeding Tube Arformoterol Tartrate 15 mcg 07/28/21 20:00 09/08/21 08:52 Arformoterol 15 Mcg/2 Ml Nebu IH 15 mcg Q12HRT DEMIAN Administration Budesonide 0.5 mg 07/28/21 20:00 08/03/21 08:52 Budesonide 0.5 Mg/2 Ml Nebu IH 0.5 mg Q12HRT DEMIAN Administration Dextrose 50 ml 07/28/21 02:11 Dextrose 50% In Water (25gm) 50 Ml Syringe IV Q30MIN PRN Hypoglycemia Protocol Enoxaparin Sodium 100 mg 08/02/21 10:00 08/03/21 10:33 Enoxaparin 100 Mg/1 Ml Inj SUB-Q 100 mg Q24H DEMIAN Administration Protocol Famotidine 10 mg 08/02/21 10:00 08/03/21 10:30 Famotidine 20 Mg/2 Ml Inj IV 10 mg BID DEMIAN Administration Fentanyl 50 mcg 07/29/21 10:42 Fentanyl 100 Mcg/2 Ml Inj IV Q10MIN PRN ANALGESIA Hydralazine HCl 10 mg 07/30/21 14:52 08/03/21 17:31 Hydralazine 20 Mg/1 Ml Inj IV 10 mg Q6H PRN Administration SBP > 165 Hydrophilic Ointment 1 applic 07/29/21 10:42 Lip Therapy Vaseline TP Q2HR PRN Dry Lips Fentanyl Citrate 2,000 mcg in 100 mls @ 5.35 mls/hr 07/29/21 11:00 08/03/21 18:49 Fentanyl Drip Premix IV 2 mcg/kg/hr TITR DEMIAN 10.7 mls/hr Titration Protocol 1 MCG/KG/HR Midazolam HCl 100 mg/ Sodium 100 mls @ 2 mls/hr 07/29/21 11:00 08/03/21 05:41 Chloride IV 0 mg/hr TITR DEMIAN 0 mls/hr Titration Protocol 2 MG/HR Norepinephrine 4 mg in 250 mls @ 7.5 mls/hr 07/29/21 21:00 Levophed Drip 4 Mg/Ns 250 Ml IV TITR DEMIAN Protocol 2 MCG/MIN Cefepime HCl 2 gm in 100 mls @ 200 mls/hr 08/02/21 10:00 08/03/21 10:34 Cefepime/Ns 2 Gm/100 Ml IV 200 mls/hr Q12H DEMIAN Administration Protocol Sodium Chloride 1,000 mls @ 50 mls/hr 08/02/21 12:15 Nacl 0.9% 1000 Ml IV DIRECT DEMIAN Sodium Chloride 1,000 mls @ 75 mls/hr 08/03/21 10:00 08/03/21 10:31 Nacl 0.45% 1000 Ml IV 75 mls/hr DIRECT DEMIAN Administration Insulin Glargine 20 units 08/03/21 22:00 Insulin Glargine 100 Units/Ml SUB-Q QHS DEMIAN Insulin Human Lispro 0 unit 07/29/21 12:00 08/03/21 17:54 Insulin Lispro 100 Unit/Ml SUB-Q 6 unit Q6HR DEMIAN Administration Protocol Magnesium Hydroxide 30 ml 07/28/21 02:11 Magnesium Hydroxide (Mom) Oral Liqd Udc PO Q4H PRN Constipation Methylprednisolone Sodium Succinate 40 mg 07/28/21 06:00 08/03/21 14:20 Methylprednisolone Sod Succinate 40 Mg/1 Ml Inj IV 08/03/21 23:59 40 mg Q8HR DEMIAN Administration Methylprednisolone Sodium Succinate 40 mg 08/04/21 10:00 Methylprednisolone Sod Succinate 40 Mg/1 Ml Inj IV 08/04/21 22:01 Q12HR DEMIAN Methylprednisolone Sodium Succinate 40 mg 08/05/21 10:00 Methylprednisolone Sod Succinate 40 Mg/1 Ml Inj IV 08/05/21 10:01 Q24HR REPLACED BY [facility] Midazolam HCl 2 mg 07/29/21 10:42 Midazolam 2 Mg/2 Ml Inj IV Q10MIN PRN Sedation Multi-Ingred Cream/Lotion/Oil/Oint 1 applic 07/29/21 10:42 Mineral Oil/Petrolatum, White Ophth Oint 3.5 Gm OU Q4HR PRN Dry Eye(s) Ondansetron HCl 4 mg 07/28/21 02:11 Ondansetron 4 Mg/2 Ml Inj IV Q8H PRN Nausea And Vomiting Quetiapine Fumarate 100 mg 08/03/21 22:00 Quetiapine 100 Mg Tab PO BID DEMIAN Senna/Docusate Sodium 1 tab 07/29/21 22:00 08/03/21 10:30 Sennosides/Docusate Sodium 8.6/50 Mg Tab FEEDTUBE 1 tab BID DEMIAN Administration Simple Syrup 15 ml 07/29/21 13:01 Simple Syrup 15 Ml FEEDTUBE PRN PRN Hypoglycemia Simple Syrup 30 ml 07/29/21 13:01 Simple Syrup 15 Ml FEEDTUBE PRN PRN Hypoglycemia Sodium Bicarbonate 325 mg 07/29/21 13:01 Sodium Bicarbonate 325 Mg Tab FEEDTUBE PRN PRN For Clogged Feeding Tube Sodium Chloride 10 ml 07/28/21 10:00 08/03/21 10:33 Sodium Chloride 0.9% 10 Ml Flush Syringe IV 10 ml BID DEMIAN Administration Sodium Chloride 10 ml 07/28/21 02:05 Sodium Chloride 0.9% 10 Ml Flush Syringe IV PRN PRN LINE FLUSH Nutrition/Malnutrition Assess - Dietary Evaluation Nutrition/Malnutrition Findings: Nutrition Notes Start: 07/28/21 14:44 Freq: Status: Active Protocol: Document 08/02/21 10:58 (Rec: 08/02/21 11:11 [id number]) Nutrition Notes Initial or Follow up Reassessment Current Diagnosis COPD,Diabetes,Hypertension, Respiratory Failure Other Pertinent Diagnosis pneu Current Diet Vital AF at 50 ml/hr Labs/Tests BUN 72 Cr 1.8 BG 307 Pertinent Medications Solu Medrol Height 5 ft Weight 107 kg [place] Body Weight (kg) 45.45 BMI 46.0 Weight Status Morbidly Obese Subjective/Other Information Per RN, TF bottle out and no bottles on floor. RD called kitchen to get new TF. No signs of TF intolerance. Burn Absent Trauma Absent Current % PO Negligible #1 Nutrition Diagnosis Inadequate oral intake Diagnosis Progress(for reassessment Continues documentation) Is patient on ventilator? Yes Is Patient Ambulatory and/or Out of Bed No REE-([facility]-confined to bed) 1842.852 Kcal/Kg value to use for calculation 14 Approximate Energy Requirements Using 1498 kcal/Kg Calculation Used for Recommendations Kcal/kg Additional Notes Protein: (up to 2.5g/kg IBW) up to 134g Fluid: 1 ml/kcal or per MD Nutrition Intervention Change Diet Order: continue Nutrition Support: Vital AF 1.2 at 50 ml/hr Flush 75 ml q4h or per MD Kcal 1,440 Protein (gm) 90 Fluid (mL) 973 Goal #1 Meet at least 75% of protein and energy needs via TF Anticipated Discharge Needs: Unable to determine at this time Follow-Up By: 08/04/21 Additional Comments F/u: TF tolerance and TF at goal rate <LINDSAY FARR - Last Filed: 08/04/21 07:28> History Interval history: I saw and evaluated the patient. Discussed with the nurse practitioner and agree with their findings and plan as documented in this note. Hospitalist Physical - Constitutional Vitals: Temp Pulse Resp BP Pulse Ox 99.5 F 106 H 18 141/86 96 08/04/21 04:00 08/04/21 06:15 08/04/21 06:15 08/04/21 06:15 08/04/21 06:15 Results - Labs CBC & Chem 7: 08/04/21 04:38 08/04/21 04:38 Labs: Laboratory Last Values WBC 17.7 K/mm3 (4.5-11.0) H 08/04/21 04:38 RBC 4.02 M/mm3 (3.65-5.03) 08/04/21 04:38 Hgb 11.8 gm/dl (10.1-14.3) 08/04/21 04:38 Hct 35.7 % (30.3-42.9) 08/04/21 04:38 MCV 89 fl (79-97) 08/04/21 04:38 MCH 29 pg (28-32) 08/04/21 04:38 MCHC 33 % (30-34) 08/04/21 04:38 RDW 16.5 % (13.2-15.2) H 08/04/21 04:38 Plt Count 265 K/mm3 (140-440) 08/04/21 04:38 Lymph % (Auto) 5.1 % (13.4-35.0) L 08/02/21 Unknown Thurston % (Auto) 6.1 % (0.0-7.3) 08/02/21 Unknown Eos % (Auto) 0.0 % (0.0-4.3) 08/02/21 Unknown Baso % (Auto) 0.1 % (0.0-1.8) 08/02/21 Unknown Lymph # (Auto) 0.7 K/mm3 (1.2-5.4) L 08/02/21 Unknown [place] # (Auto) 0.9 K/mm3 (0.0-0.8) H 08/02/21 Unknown Eos # (Auto) 0.0 K/mm3 (0.0-0.4) 08/02/21 Unknown Baso # (Auto) 0.0 K/mm3 (0.0-0.1) 08/02/21 Unknown Add Manual Diff Complete 08/01/21 05:50 Total Counted 100 08/01/21 05:50 Seg Neutrophils % 88.7 % (40.0-70.0) H 08/02/21 Unknown Seg Neuts % (Manual) 93.0 % (40.0-70.0) H 08/01/21 05:50 Band Neutrophils % 1.0 % 07/31/21 04:45 Lymphocytes % (Manual) 2.0 % (13.4-35.0) L 08/01/21 05:50 Monocytes % (Manual) 3.0 % (0.0-7.3) 08/01/21 05:50 Metamyelocytes % 1.0 % 08/01/21 05:50 Myelocytes % 1.0 % 08/01/21 05:50 Nucleated RBC % 3.0 % (0.0-0.9) H 08/01/21 05:50 Seg Neutrophils # 12.5 K/mm3 (1.8-7.7) H 08/02/21 Unknown Seg Neutrophils # Man 15.1 K/mm3 (1.8-7.7) H 08/01/21 05:50 Band Neutrophils # 0.0 K/mm3 08/01/21 05:50 Lymphocytes # (Manual) 0.3 K/mm3 (1.2-5.4) L 08/01/21 05:50 Abs React Lymphs (Man) 0.0 K/mm3 08/01/21 05:50 Monocytes # (Manual) 0.5 K/mm3 (0.0-0.8) 08/01/21 05:50 Eosinophils # (Manual) 0.0 K/mm3 (0.0-0.4) 08/01/21 05:50 Basophils # (Manual) 0.0 K/mm3 (0.0-0.1) 08/01/21 05:50 Metamyelocytes # 0.2 K/mm3 08/01/21 05:50 Myelocytes # 0.2 K/mm3 08/01/21 05:50 Promyelocytes # 0.0 K/mm3 08/01/21 05:50 Blast Cells # 0.0 K/mm3 08/01/21 05:50 WBC Morphology Not Reportable 08/01/21 05:50 Hypersegmented Neuts Not Reportable 08/01/21 05:50 Hyposegmented Neuts Not Reportable 08/01/21 05:50 Hypogranular Neuts Not Reportable 08/01/21 05:50 Smudge Cells Not Reportable 08/01/21 05:50 Toxic Granulation Not Reportable 08/01/21 05:50 Toxic Vacuolation Not Reportable 08/01/21 05:50 Dohle Bodies Not Reportable 08/01/21 05:50 Pelger-Huet Anomaly Not Reportable 08/01/21 05:50 Beryl Rods Not Reportable 08/01/21 05:50 Platelet Estimate Consistent w auto 08/01/21 05:50 Clumped Platelets Not Reportable 08/01/21 05:50 Plt Clumps, EDTA Not Reportable 08/01/21 05:50 Large Platelets Not Reportable 08/01/21 05:50 Giant Platelets Not Reportable 08/01/21 05:50 Platelet Satelliting Not Reportable 08/01/21 05:50 Plt Morphology Comment Not Reportable 08/01/21 05:50 RBC Morphology Normal 08/01/21 05:50 Dimorphic RBCs Not Reportable 08/01/21 05:50 Polychromasia Not Reportable 08/01/21 05:50 Hypochromasia Not Reportable 08/01/21 05:50 Poikilocytosis Not Reportable 08/01/21 05:50 Anisocytosis Not Reportable 08/01/21 05:50 Microcytosis Not Reportable 08/01/21 05:50 Macrocytosis Not Reportable 08/01/21 05:50 Spherocytes Not Reportable 08/01/21 05:50 Pappenheimer Bodies Not Reportable 08/01/21 05:50 Sickle Cells Not Reportable 08/01/21 05:50 Target Cells Not Reportable 08/01/21 05:50 Tear Drop Cells Not Reportable 08/01/21 05:50 Ovalocytes Not Reportable 08/01/21 05:50 Helmet Cells Not Reportable 08/01/21 05:50 [place] Bodies Not Reportable 08/01/21 05:50 [place] Rings Not Reportable 08/01/21 05:50 [place] Cells Not Reportable 08/01/21 05:50 Bite Cells Not Reportable 08/01/21 05:50 Crenated Cell Not Reportable 08/01/21 05:50 Elliptocytes Not Reportable 08/01/21 05:50 Acanthocytes (Spur) Not Reportable 08/01/21 05:50 Rouleaux Not Reportable 08/01/21 05:50 Hemoglobin C Crystals Not Reportable 08/01/21 05:50 Schistocytes Not Reportable 08/01/21 05:50 [place] parasites Not Reportable 08/01/21 05:50 [place] Bodies Not Reportable 08/01/21 05:50 Hem Pathologist Commnt No 08/01/21 05:50 PT 14.0 Sec. (12.2-14.9) 08/03/21 08:30 INR 1.03 (0.87-1.13) 08/03/21 08:30 D-Dimer 852.47 ng/mlDDU (0-234) H 07/29/21 07:17 ABG pH 7.321 (7.320-7.450) 08/04/21 04:00 POC ABG pCO2 54.3 mmHg (32.0-48.0) H 08/04/21 04:00 POC ABG pO2 82.2 mmHg (83-108) L 08/04/21 04:00 POC ABG HCO3 27.4 08/04/21 04:00 ABG O2 Saturation 95.2 (0-100) 08/04/21 04:00 POC ABG Base Excess 0.5 08/04/21 04:00 ABG Hemoglobin 12.6 (12.0-17.5) 08/04/21 04:00 ABG Oxyhemoglobin 94.6 (94-98) 08/04/21 04:00 ABG Methemoglobin 0.3 (0.0-1.5) 08/04/21 04:00 ABG Sodium 145.1 mmol/L (136.0-145.0) H 08/04/21 04:00 ABG Potassium 5.0 mmol/L (3.40-4.50) H 08/04/21 04:00 ABG Chloride 107.0 mmol/L (98-107) 08/04/21 04:00 ABG Glucose 316 mg/dL (65-95) H 08/04/21 04:00 Carboxyhemoglobin 0.3 (0.5-1.5) L 08/04/21 04:00 FiO2 % 30.0 08/04/21 04:00 Sodium 145 mmol/L (137-145) 08/04/21 04:38 Potassium 5.0 mmol/L (3.6-5.0) 08/04/21 04:38 Chloride 108.3 mmol/L (98-107) H 08/04/21 04:38 Carbon Dioxide 27 mmol/L (22-30) 08/04/21 04:38 Anion Gap 15 mmol/L 08/04/21 04:38 BUN 76 mg/dL (7-17) H 08/04/21 04:38 Creatinine 1.4 mg/dL (0.6-1.2) H 08/04/21 04:38 Estimated GFR 46 ml/min 08/04/21 04:38 BUN/Creatinine Ratio 54 % 08/04/21 04:38 Glucose 310 mg/dL (65-100) H 08/04/21 04:38 POC Glucose 268 mg/dL (70-105) H 08/04/21 05:19 Lactic Acid 2.10 mmol/L (0.7-2.0) H* 08/03/21 15:11 Calcium 8.7 mg/dL (8.4-10.2) 08/04/21 04:38 Phosphorus 3.90 mg/dL (2.5-4.5) 08/04/21 04:38 Magnesium 2.70 mg/dL (1.7-2.3) H 08/04/21 04:38 Total Bilirubin 0.30 mg/dL (0.1-1.2) 07/27/21 22:57 AST 98 units/L (5-40) H 07/27/21 22:57 ALT 90 units/L (7-56) H 07/27/21 22:57 Alkaline Phosphatase 98 units/L (35-129) 07/27/21 22:57 Total Protein 8.0 g/dL (6.3-8.2) 07/27/21 22:57 Albumin 4.2 g/dL (3.9-5) 07/27/21 22:57 Albumin/Globulin Ratio 1.1 % 07/27/21 22:57 Carcinoembryonic Ag <0.5 ng/mL (0.0-2.4) 07/31/21 04:45 Arterial Blood Glucose 316 mg/dL (65-95) H 08/04/21 04:00 Arterial Blood Ionized Calcium 4.7 mg/dL (4.6-5.3) 08/04/21 04:00 Urine Color Yellow (Yellow) 08/02/21 15:30 Urine Turbidity Cloudy (Clear) 08/02/21 15:30 Urine pH 5.0 (5.0-7.0) 08/02/21 15:30 Ur Specific [place] 1.021 (1.003-1.030) 08/02/21 15:30 Urine Protein 30 mg/dl mg/dL (Negative) 08/02/21 15:30 Urine Glucose (UA) Neg mg/dL (Negative) 08/02/21 15:30 Urine Ketones Neg mg/dL (Negative) 08/02/21 15:30 Urine Blood Lg (Negative) 08/02/21 15:30 Urine Nitrite Neg (Negative) 08/02/21 15:30 Urine Bilirubin Neg (Negative) 08/02/21 15:30 Urine Urobilinogen < 2.0 mg/dL (<2.0) 08/02/21 15:30 Ur Leukocyte Esterase Sm (Negative) 08/02/21 15:30 Urine WBC (Auto) 47.0 /HPF (0.0-6.0) H 08/02/21 15:30 Urine RBC (Auto) 140.0 /HPF (0.0-6.0) 08/02/21 15:30 U Epithel Cells (Auto) < 1.0 /HPF (0-13.0) 08/02/21 15:30 Urine Mucus Few /HPF 08/02/21 15:30 Urine Creatinine 125.6 mg/dL (0.1-20.0) H 08/01/21 Unknown Urine Sodium 12 mmol/L 08/01/21 Unknown Coronavirus (PCR) Negative (Negative) 07/29/21 07:58 Hepatitis A IgM Ab Non-reactive (NonReactive) 08/02/21 15:40 Hep Bs Antigen Nonreactive (Negative) 08/02/21 15:40 Hep B Core IgM Ab Non-reactive (NonReactive) 08/02/21 15:40 Hepatitis C Antibody Non-reactive (NonReactive) 08/02/21 15:40 AFB Identification Negative 08/02/21 14:30 Microbiology: Microbiology 08/02/21 15:30 Urine,Clean Catch Urine Culture - Preliminary NO GROWTH AFTER 24 HOURS Elizabeth/IV: Voiding Method Indwelling Catheter Active Medications - Current Medications Current Medications: Generic Name Dose Route Start Last Admin Trade Name Freq PRN Reason Stop Dose Admin Acetaminophen 650 mg 07/28/21 02:11 Acetaminophen 325 Mg Tab PO Q6H PRN Pain MILD(1-3)/Fever >100.5/GARCIA Albuterol/Ipratropium 1 ampul 07/28/21 14:00 08/03/21 20:07 Ipratropium/Albuterol Sulfate 3 Ml Ampul.Neb IH 1 ampul TID DEMIAN Administration Lipase/Protease/Amylase 1 each 07/29/21 13:01 Lipase 10,500/Protease 25,000/Amylase 43,750 (Units) Dr [place]de FEEDTUBE PRN PRN For Clogged Feeding Tube Arformoterol Tartrate 15 mcg 07/28/21 20:00 08/03/21 20:06 Arformoterol 15 Mcg/2 Ml Nebu IH 15 mcg Q12HRT DEMIAN Administration Budesonide 0.5 mg 07/28/21 20:00 08/03/21 20:06 Budesonide 0.5 Mg/2 Ml Nebu IH 0.5 mg Q12HRT DEMIAN Administration Dextrose 50 ml 07/28/21 02:11 Dextrose 50% In Water (25gm) 50 Ml Syringe IV Q30MIN PRN Hypoglycemia Protocol Enoxaparin Sodium 100 mg 08/02/21 10:00 08/03/21 10:33 Enoxaparin 100 Mg/1 Ml Inj SUB-Q 100 mg Q24H DEMIAN Administration Protocol Famotidine 10 mg 08/02/21 10:00 08/03/21 21:39 Famotidine 20 Mg/2 Ml Inj IV 10 mg BID DEMIAN Administration Fentanyl 50 mcg 07/29/21 10:42 08/04/21 03:25 Fentanyl 100 Mcg/2 Ml Inj IV 50 mcg Q10MIN PRN Administration ANALGESIA Hydralazine HCl 10 mg 07/30/21 14:52 08/03/21 17:31 Hydralazine 20 Mg/1 Ml Inj IV 10 mg Q6H PRN Administration SBP > 165 Hydrophilic Ointment 1 applic 07/29/21 10:42 Lip Therapy Vaseline TP Q2HR PRN Dry Lips Fentanyl Citrate 2,000 mcg in 100 mls @ 5.35 mls/hr 07/29/21 11:00 08/04/21 04:17 Fentanyl Drip Premix IV 4 mcg/kg/hr TITR DEMIAN 21.4 mls/hr Administration Protocol 1 MCG/KG/HR Midazolam HCl 100 mg/ Sodium 100 mls @ 2 mls/hr 07/29/21 11:00 08/03/21 05:41 Chloride IV 0 mg/hr TITR DEMIAN 0 mls/hr Titration Protocol 2 MG/HR Norepinephrine 4 mg in 250 mls @ 7.5 mls/hr 07/29/21 21:00 Levophed Drip 4 Mg/Ns 250 Ml IV TITR DEMIAN Protocol 2 MCG/MIN Cefepime HCl 2 gm in 100 mls @ 200 mls/hr 08/02/21 10:00 08/03/21 21:40 Cefepime/Ns 2 Gm/100 Ml IV 08/07/21 22:29 200 mls/hr Q12H DEMIAN Administration Protocol Sodium Chloride 1,000 mls @ 50 mls/hr 08/02/21 12:15 Nacl 0.9% 1000 Ml IV DIRECT DEMIAN Sodium Chloride 1,000 mls @ 75 mls/hr 08/03/21 10:00 08/03/21 22:43 Nacl 0.45% 1000 Ml IV 75 mls/hr DIRECT DEMIAN Administration Insulin Glargine 20 units 08/03/21 22:00 08/03/21 21:39 Insulin Glargine 100 Units/Ml SUB-Q 20 units QHS DEMIAN Administration Insulin Human Lispro 0 unit 07/29/21 12:00 08/04/21 06:33 Insulin Lispro 100 Unit/Ml SUB-Q 6 unit Q6HR DEMIAN Administration Protocol Magnesium Hydroxide 30 ml 07/28/21 02:11 Magnesium Hydroxide (Mom) Oral Liqd Udc PO Q4H PRN Constipation Methylprednisolone Sodium Succinate 40 mg 08/04/21 10:00 Methylprednisolone Sod Succinate 40 Mg/1 Ml Inj IV 08/04/21 22:01 Q12HR DEMIAN Methylprednisolone Sodium Succinate 40 mg 08/05/21 10:00 Methylprednisolone Sod Succinate 40 Mg/1 Ml Inj IV 08/05/21 10:01 Q24HR DEMIAN Midazolam HCl 2 mg 07/29/21 10:42 Midazolam 2 Mg/2 Ml Inj IV Q10MIN PRN Sedation Multi-Ingred Cream/Lotion/Oil/Oint 1 applic 07/29/21 10:42 Mineral Oil/Petrolatum, White Ophth Oint 3.5 Gm OU Q4HR PRN Dry Eye(s) Ondansetron HCl 4 mg 07/28/21 02:11 Ondansetron 4 Mg/2 Ml Inj IV Q8H PRN Nausea And Vomiting Quetiapine Fumarate 100 mg 08/03/21 22:00 08/03/21 21:39 Quetiapine 100 Mg Tab PO 100 mg BID DEMIAN Administration Senna/Docusate Sodium 1 tab 07/29/21 22:00 08/03/21 21:38 Sennosides/Docusate Sodium 8.6/50 Mg Tab FEEDTUBE 1 tab BID DMEIAN Administration Simple Syrup 15 ml 07/29/21 13:01 Simple Syrup 15 Ml FEEDTUBE PRN PRN Hypoglycemia Simple Syrup 30 ml 07/29/21 13:01 Simple Syrup 15 Ml FEEDTUBE PRN PRN Hypoglycemia Sodium Bicarbonate 325 mg 07/29/21 13:01 Sodium Bicarbonate 325 Mg Tab FEEDTUBE PRN PRN For Clogged Feeding Tube Sodium Chloride 10 ml 07/28/21 10:00 08/03/21 21:40 Sodium Chloride 0.9% 10 Ml Flush Syringe IV 10 ml BID DEMIAN Administration Sodium Chloride 10 ml 07/28/21 02:05 Sodium Chloride 0.9% 10 Ml Flush Syringe IV PRN PRN LINE FLUSH Nutrition/Malnutrition Assess - Dietary Evaluation Nutrition/Malnutrition Findings: Nutrition Notes Start: 07/28/21 14:44 Freq: Status: Active Protocol: Document 08/02/21 10:58 (Rec: 08/02/21 11:11 [id number]) Nutrition Notes Initial or Follow up Reassessment Current Diagnosis COPD,Diabetes,Hypertension, Respiratory Failure Other Pertinent Diagnosis pneu Current Diet Vital AF at 50 ml/hr Labs/Tests BUN 72 Cr 1.8 BG 307 Pertinent Medications Solu Medrol Height 5 ft Weight 107 kg [place] Body Weight (kg) 45.45 BMI 46.0 Weight Status Morbidly Obese Subjective/Other Information Per RN, TF bottle out and no bottles on floor. RD called kitchen to get new TF. No signs of TF intolerance. Burn Absent Trauma Absent Current % PO Negligible #1 Nutrition Diagnosis Inadequate oral intake Diagnosis Progress(for reassessment Continues documentation) Is patient on ventilator? Yes Is Patient Ambulatory and/or Out of Bed No [facility]) 1842.852 Kcal/Kg value to use for calculation 14 Approximate Energy Requirements Using 1498 kcal/Kg Calculation Used for Recommendations Kcal/kg Additional Notes Protein: (up to 2.5g/kg IBW) up to 134g Fluid: 1 ml/kcal or per MD Nutrition Intervention Change Diet Order: continue Nutrition Support: Vital AF 1.2 at 50 ml/hr Flush 75 ml q4h or per MD Kcal 1,440 Protein (gm) 90 Fluid (mL) 973 Goal #1 Meet at least 75% of protein and energy needs via TF Anticipated Discharge Needs: Unable to determine at this time Follow-Up By: 08/04/21 Additional Comments F/u: TF tolerance and TF at goal rate
[2021-08-03] MEDS: INSULIN GLARGINE 100 UNITS/ML SUB-Q SCH (21:39)
[2021-08-03] MEDS: QUEtiapine 100 MG TAB PO SCH (21:39)
[2021-08-03] MEDS: fentaNYL 100 MCG/2 ML INJ IV PRN (22:41)
[2021-08-04] MEDS: INSULIN LISPRO 100 UNIT/ML SUB-Q SCH ×4 (00:47→17:40)
[2021-08-04] MEDS: fentaNYL 100 MCG/2 ML INJ IV PRN ×2 (03:25→09:05)
[2021-08-04] MEDS: fentaNYL DRIP Premix 2,000 MCG/100 ML BAG IV SCH ×5 (04:17→21:26)
[2021-08-04 04:54] LABS: Hematocrit 35.7 % (30.3-42.9); Hemoglobin 11.8 gm/dl (10.1-14.3); Mean Corpuscular HGB Conc 33 % (30-34); Mean Corpuscular Volume 89 fl (79-97); Platelet Count 265 K/mm3 (140-440); Red Blood Count 4.02 M/mm3 (3.65-5.03); Red Cell Distribution Width 16.5 % (13.2-15.2)
[2021-08-04 05:11] LABS: Calcium 8.7 mg/dL (8.4-10.2)
[2021-08-04] MEDS: ARFORMOTEROL 15 MCG/2 ML NEBU IH SCH ×2 (08:48→19:56)
[2021-08-04] MEDS: BUDESONIDE 0.5 MG/2 ML NEBU IH SCH ×2 (08:48→19:56)
[2021-08-04] MEDS: IPRATROPIUM/ALBUTEROL SULFATE 3 ML AMPUL.NEB IH SCH ×3 (08:48→19:56)
--- NOTE | 2021-08-04 09:01 | Event Note ---
Date: 08/04/21 CT chest reviewed. Patient with mediastinal and perihilar adenopathy with retroperitoneal small nodes in her abdomen and subcentimeter bilateral pulmonary nodules. Not amenable to percutaneous biopsy. The perihilar and or mediastinal adenopathy may be amenable to bronchoscopic biopsy.
--- NOTE | 2021-08-04 09:24 | XRay Report ---
CHEST - 1 VIEW 0840 hours INDICATION: hypoxia COMPARISON: Yesterday FINDINGS: Support devices: Stable support device positioning. Heart: Stable cardiomediastinal silhouette. Lungs/pleura: Mild right perihilar prominence/airspace opacity is suspected. This could represent at electatic changes or developing infiltrate. The remainder the lungs are clear. No pleural effusion or pneumothorax. Additional findings: None. IMPRESSION: Mild right perihilar airspace opacity is suspected on today's exam. Signer Name: Stanislaw Go Jr, MD Signed: 08/04/2021 9:19 AM Workstation Name: [id number]
[2021-08-04] MEDS: SENNOSIDES/DOCUSATE SODIUM 8.6/50 MG TAB FEEDTUBE SCH ×2 (09:31→21:28)
[2021-08-04] MEDS: QUEtiapine 100 MG TAB PO SCH ×2 (09:31→21:56)
[2021-08-04] MEDS: FAMOTIDINE 20 MG/2 ML INJ IV SCH ×2 (09:31→21:28)
[2021-08-04] MEDS: methylPREDNISolone Sod Succinate 40 MG/1 ML INJ IV SCH ×2 (09:33→21:46)
[2021-08-04] MEDS: ENOXAPARIN 100 MG/1 ML INJ SUB-Q SCH (09:59)
--- NOTE | 2021-08-04 11:54 | Progress Note ---
Assessment and Plan Impression * Acute kidney injury * Respiratory failure * Pulmonary infiltrates * History of breast cancer. [place] to be metastatic with mediastinal and lung masses Recommendations * Acute kidney injury most likely prerenal. Fractional excretion of sodium is 0.13%. * Creatinine improving 1.8->1.6->1.4, currently on 1/2NS, continue gentle fluids for now * UA shows 1+ protein and large blood. Urine specific gravity is also high. * Follow-up results of renal ultrasound as well as vasculitis work-up, pending * Vent management as per ICU team * Patient is currently nonoliguric. Continue IV hydration * Avoid nephrotoxins * Monitor fluid status and electrolytes closely * No indication for renal replacement therapy at this time Subjective Date of service: 08/04/21 Principal diagnosis: Ac hypoxemic resp failure ; AE-COPD; H/O CA Breast; DM II; HTN Interval history: Patient remains on the ventilator. Currently on 30% FiO2. Elizabeth catheter in place, just emptied per nursing Objective - Exam Narrative Exam: General appearance: well-developed, well-nourished, intubated EENT: ATNC, PERRL Neck: no JVD, supple Respiratory: Present: coarse mechanical breath sounds Cardiology: regular, normal heart rate, S1S2, no murmurs Gastrointestinal: normal, normoactive bowel sounds Integumentary: other (No edema) - Vital Signs Vital signs: Vital Signs - 12hr 08/04/21 08/04/21 08/04/21 00:00 00:15 00:30 Temperature Pulse Rate 103 H 101 H 102 H Pulse Rate [ Anterior Bilateral] Respiratory 16 17 15 Rate Respiratory Rate [Anterior Bilateral] Blood Pressure 139/83 136/79 144/81 O2 Sat by Pulse 96 96 97 Oximetry 08/04/21 08/04/21 08/04/21 00:45 01:00 01:15 Temperature Pulse Rate 99 H 102 H 102 H Pulse Rate [ Anterior Bilateral] Respiratory 16 20 18 Rate Respiratory Rate [Anterior Bilateral] Blood Pressure 141/81 131/88 126/84 O2 Sat by Pulse 97 96 97 Oximetry 08/04/21 08/04/21 08/04/21 01:30 01:45 02:00 Temperature Pulse Rate 101 H 101 H 103 H Pulse Rate [ Anterior Bilateral] Respiratory 19 15 18 Rate Respiratory Rate [Anterior Bilateral] Blood Pressure 141/82 141/83 139/84 O2 Sat by Pulse 97 97 97 Oximetry 08/04/21 08/04/21 08/04/21 02:15 02:30 02:45 Temperature Pulse Rate 100 H 99 H 101 H Pulse Rate [ Anterior Bilateral] Respiratory 20 16 22 Rate Respiratory Rate [Anterior Bilateral] Blood Pressure 147/86 150/85 153/79 O2 Sat by Pulse 97 97 97 Oximetry 08/04/21 08/04/21 08/04/21 03:00 03:15 03:30 Temperature Pulse Rate 100 H 101 H 136 H Pulse Rate [ Anterior Bilateral] Respiratory 15 22 11 L Rate Respiratory Rate [Anterior Bilateral] Blood Pressure 155/80 145/82 O2 Sat by Pulse 97 97 99 Oximetry 08/04/21 08/04/21 08/04/21 03:35 03:45 04:00 Temperature 99.5 F Pulse Rate 117 H 114 H 111 H Pulse Rate [ Anterior Bilateral] Respiratory 15 16 Rate Respiratory Rate [Anterior Bilateral] Blood Pressure 153/98 153/112 151/88 O2 Sat by Pulse 95 94 95 Oximetry 08/04/21 08/04/21 08/04/21 04:15 04:30 04:45 Temperature Pulse Rate 108 H 106 H 109 H Pulse Rate [ Anterior Bilateral] Respiratory 16 18 14 Rate Respiratory Rate [Anterior Bilateral] Blood Pressure 140/86 141/92 164/134 O2 Sat by Pulse 94 94 96 Oximetry 08/04/21 08/04/21 08/04/21 05:00 05:15 05:30 Temperature Pulse Rate 109 H 104 H 106 H Pulse Rate [ Anterior Bilateral] Respiratory 18 16 17 Rate Respiratory Rate [Anterior Bilateral] Blood Pressure 132/84 126/86 133/84 O2 Sat by Pulse 96 96 97 Oximetry 08/04/21 08/04/21 08/04/21 05:45 06:00 06:15 Temperature Pulse Rate 110 H 108 H 106 H Pulse Rate [ Anterior Bilateral] Respiratory 17 18 18 Rate Respiratory Rate [Anterior Bilateral] Blood Pressure 129/87 129/93 141/86 O2 Sat by Pulse 97 96 96 Oximetry 08/04/21 08/04/21 08/04/21 06:30 06:45 07:00 Temperature Pulse Rate 111 H 106 H 106 H Pulse Rate [ Anterior Bilateral] Respiratory 15 15 18 Rate Respiratory Rate [Anterior Bilateral] Blood Pressure 138/90 138/86 151/88 O2 Sat by Pulse 96 96 96 Oximetry 08/04/21 08/04/21 08/04/21 07:15 07:30 07:45 Temperature Pulse Rate 108 H 105 H 109 H Pulse Rate [ Anterior Bilateral] Respiratory 20 16 19 Rate Respiratory Rate [Anterior Bilateral] Blood Pressure 142/78 138/85 148/86 O2 Sat by Pulse 96 96 96 Oximetry 08/04/21 08/04/21 08/04/21 08:00 08:15 08:31 Temperature 99.2 F Pulse Rate 106 H 107 H 108 H Pulse Rate [ Anterior Bilateral] Respiratory 16 16 17 Rate Respiratory Rate [Anterior Bilateral] Blood Pressure 138/85 138/85 138/85 O2 Sat by Pulse 96 95 96 Oximetry 08/04/21 08/04/21 08:45 08:48 Temperature Pulse Rate 112 H Pulse Rate [ 112 H Anterior Bilateral] Respiratory Rate Respiratory 18 Rate [Anterior Bilateral] Blood Pressure 148/88 O2 Sat by Pulse 96 Oximetry - Lab 08/04/21 04:38 08/04/21 04:38 Most recent lab results ABG pH 7.321 (7.320-7.450) 08/04/21 04:00 ABG O2 Saturation 95.2 (0-100) 08/04/21 04:00 Calcium 8.7 mg/dL (8.4-10.2) 08/04/21 04:38 Phosphorus 3.90 mg/dL (2.5-4.5) 08/04/21 04:38 Magnesium 2.70 mg/dL (1.7-2.3) H 08/04/21 04:38 Urine Creatinine 125.6 mg/dL (0.1-20.0) H 08/01/21 Unknown Urine Sodium 12 mmol/L 08/01/21 Unknown Medications & Allergies - Medications Allergies/Adverse Reactions: Allergies No Known Allergies Allergy (Verified 12/24/18 11:45) Home Medications: Home Medications Medication Instructions Recorded Confirmed Last Taken Type traMADoL [Ultram 50 MG tab] 50 mg PO Q6HR PRN #15 tablet 01/25/18 Unknown Rx Active Medications: Generic Name Dose Route Start Last Admin Trade Name Freq PRN Reason Stop Dose Admin Acetaminophen 650 mg 07/28/21 02:11 Acetaminophen 325 Mg Tab PO Q6H PRN Pain MILD(1-3)/Fever >100.5/GARCIA Albuterol/Ipratropium 1 ampul 07/28/21 14:00 08/04/21 08:48 Ipratropium/Albuterol Sulfate 3 Ml Ampul.Neb IH 1 ampul TID DEMIAN Administration Lipase/Protease/Amylase 1 each 07/29/21 13:01 Lipase 10,500/Protease 25,000/Amylase 43,750 (Units) Dr Cap FEEDTUBE PRN PRN For Clogged Feeding Tube Arformoterol Tartrate 15 mcg 07/28/21 20:00 08/04/21 08:48 Arformoterol 15 Mcg/2 Ml Nebu IH 15 mcg Q12HRT DEMIAN Administration Budesonide 0.5 mg 07/28/21 20:00 08/04/21 08:48 Budesonide 0.5 Mg/2 Ml Nebu IH 0.5 mg Q12HRT DEMIAN Administration Dextrose 50 ml 07/28/21 02:11 Dextrose 50% In Water (25gm) 50 Ml Syringe IV Q30MIN PRN Hypoglycemia Protocol Enoxaparin Sodium 100 mg 08/02/21 10:00 08/04/21 09:59 Enoxaparin 100 Mg/1 Ml Inj SUB-Q 100 mg Q24H DEMIAN Administration Protocol Famotidine 10 mg 08/02/21 10:00 08/04/21 09:31 Famotidine 20 Mg/2 Ml Inj IV 10 mg BID DEMIAN Administration Fentanyl 50 mcg 07/29/21 10:42 08/04/21 09:05 Fentanyl 100 Mcg/2 Ml Inj IV 50 mcg Q10MIN PRN Administration ANALGESIA Hydralazine HCl 10 mg 07/30/21 14:52 08/03/21 17:31 Hydralazine 20 Mg/1 Ml Inj IV 10 mg Q6H PRN Administration SBP > 165 Hydrophilic Ointment 1 applic 07/29/21 10:42 Lip Therapy Vaseline TP Q2HR PRN Dry Lips Fentanyl Citrate 2,000 mcg in 100 mls @ 5.35 mls/hr 07/29/21 11:00 08/04/21 09:00 Fentanyl Drip Premix IV 4 mcg/kg/hr TITR DEMIAN 21.4 mls/hr Administration Protocol 1 MCG/KG/HR Midazolam HCl 100 mg/ Sodium 100 mls @ 2 mls/hr 07/29/21 11:00 08/03/21 05:41 Chloride IV 0 mg/hr TITR DEMIAN 0 mls/hr Titration Protocol 2 MG/HR Norepinephrine 4 mg in 250 mls @ 7.5 mls/hr 07/29/21 21:00 Levophed Drip 4 Mg/Ns 250 Ml IV TITR DEMIAN Protocol 2 MCG/MIN Cefepime HCl 2 gm in 100 mls @ 200 mls/hr 08/02/21 10:00 08/03/21 21:40 Cefepime/Ns 2 Gm/100 Ml IV 08/07/21 22:29 200 mls/hr Q12H DEMIAN Administration Protocol Sodium Chloride 1,000 mls @ 50 mls/hr 08/02/21 12:15 Nacl 0.9% 1000 Ml IV DIRECT DEMIAN Sodium Chloride 1,000 mls @ 75 mls/hr 08/03/21 10:00 08/03/21 22:43 Nacl 0.45% 1000 Ml IV 75 mls/hr DIRECT DEMIAN Administration Insulin Glargine 20 units 08/03/21 22:00 08/03/21 21:39 Insulin Glargine 100 Units/Ml SUB-Q 20 units QHS DEMIAN Administration Insulin Human Lispro 0 unit 07/29/21 12:00 08/04/21 06:33 Insulin Lispro 100 Unit/Ml SUB-Q 6 unit Q6HR DEMIAN Administration Protocol Magnesium Hydroxide 30 ml 07/28/21 02:11 Magnesium Hydroxide (Mom) Oral Liqd Udc PO Q4H PRN Constipation Methylprednisolone Sodium Succinate 40 mg 08/04/21 10:00 08/04/21 09:33 Methylprednisolone Sod Succinate 40 Mg/1 Ml Inj IV 08/04/21 22:01 40 mg Q12HR DEMIAN Administration Methylprednisolone Sodium Succinate 40 mg 08/05/21 10:00 Methylprednisolone Sod Succinate 40 Mg/1 Ml Inj IV 08/05/21 10:01 Q24HR ON LICENSE OF [facility] Midazolam HCl 2 mg 07/29/21 10:42 Midazolam 2 Mg/2 Ml Inj IV Q10MIN PRN Sedation Multi-Ingred Cream/Lotion/Oil/Oint 1 applic 07/29/21 10:42 Mineral Oil/Petrolatum, White Ophth Oint 3.5 Gm OU Q4HR PRN Dry Eye(s) Ondansetron HCl 4 mg 07/28/21 02:11 Ondansetron 4 Mg/2 Ml Inj IV Q8H PRN Nausea And Vomiting Quetiapine Fumarate 100 mg 08/03/21 22:00 09/09/21 09:31 Quetiapine 100 Mg Tab PO 100 mg BID DEMIAN Administration Senna/Docusate Sodium 1 tab 07/29/21 22:00 08/04/21 09:31 Sennosides/Docusate Sodium 8.6/50 Mg Tab FEEDTUBE 1 tab BID DEMIAN Administration Simple Syrup 15 ml 07/29/21 13:01 Simple Syrup 15 Ml FEEDTUBE PRN PRN Hypoglycemia Simple Syrup 30 ml 07/29/21 13:01 Simple Syrup 15 Ml FEEDTUBE PRN PRN Hypoglycemia Sodium Bicarbonate 325 mg 07/29/21 13:01 Sodium Bicarbonate 325 Mg Tab FEEDTUBE PRN PRN For Clogged Feeding Tube Sodium Chloride 10 ml 07/28/21 10:00 08/03/21 21:40 Sodium Chloride 0.9% 10 Ml Flush Syringe IV 10 ml BID DEMIAN Administration Sodium Chloride 10 ml 07/28/21 02:05 Sodium Chloride 0.9% 10 Ml Flush Syringe IV PRN PRN LINE FLUSH
[2021-08-04] MEDS: CEFEPIME/NS 2 GM/100 ML 2 GM/100 ML BAG IV SCH ×2 (12:48→21:56)
[2021-08-04] MEDS: SODIUM CHLORIDE 0.45% 1000 ML 1,000 ML IV SCH (12:50)
--- NOTE | 2021-08-04 14:40 | Progress Note ---
Assessment and Plan Cultures: Blood culture no growth so far Sputum culture no growth so far A/P: 66-year-old female past medical history metastatic breast cancer, hypertension, diabetes, COPD now with: #Acute sepsis: With fevers and leukocytosis. Sepsis has been up and down in the setting of recent CODE BLUE. #Acute hypoxic respiratory failure: Currently on the vent. In the setting of pneumonia and metastatic breast cancer to the lungs #Metastatic breast cancer #WYATT: Renally dose medications. Recs: -Continue cefepime, planned 8 days -Trend white count, fevers -Procalcitonin likely not useful in the setting of WYATT -Follow-up culture data Poor prognosis Thank you for the consult, we will continue to follow. Juan Johnson MD [facility] ([facility]) O: [phone] F: [phone] Subjective Date of service: 08/04/21 Principal diagnosis: Ac hypoxemic resp failure ; AE-COPD; H/O CA Breast; DM II; HTN Interval history: Afebrile, white count 17.7. Cultures remain negative so far. Imaging personally reviewed: Chest x-ray: Mild right opacity. Objective - Exam Narrative Exam: Physical Exam: Constitutional: Intubated, sedated Head, Ears, Nose: Normocephalic, atraumatic. External ears, nose normal Eyes: Conjunctivae/corneas clear. No icterus. No ptosis. Neck: ETT Oral: ETT Cardiovascular: S1, S2 normal. Respiratory: Good air entry, clear to auscultation bilaterally GI: Soft, non-tender; bowel sounds normal. No peritoneal signs. Musculoskeletal: No pedal edema, no cyanosis. Skin: No rash or abscess Hem/Lymphatic: No palpable cervical or supraclavicular nodes. No lymphangitis Psych: Sedated Neurological: Sedated - Constitutional Vitals: Vital Signs Temp Pulse Resp BP Pulse Ox 99.1 F 116 H 18 136/85 96 08/04/21 12:00 08/04/21 12:50 08/04/21 08:48 08/04/21 12:50 08/04/21 12:50 Temperature -Last 24 Hours Temperature 99.1 F Temperature 99.2 F Temperature 99.5 F Temperature 99.2 F Temperature 98.7 F Temperature 97.6 F - Labs CBC & Chem 7: 08/04/21 04:38 08/04/21 04:38 Labs: Abnormal lab results 08/03/21 08/03/21 08/03/21 Range/Units 15:11 16:52 23:08 WBC (4.5-11.0) K/mm3 RDW (13.2-15.2) % POC ABG pCO2 (32.0-48.0) mmHg POC ABG pO2 (83-108) mmHg ABG Sodium (136.0-145.0) mmol/L ABG Potassium (3.40-4.50) mmol/L ABG Glucose (65-95) mg/dL Carboxyhemoglobin (0.5-1.5) Chloride (98-107) mmol/L BUN (7-17) mg/dL Creatinine (0.6-1.2) mg/dL Glucose (65-100) mg/dL POC Glucose 282 H 289 H (70-105) mg/dL Lactic Acid 2.10 H* (0.7-2.0) mmol/L Magnesium (1.7-2.3) mg/dL Arterial Blood Glucose (65-95) mg/dL 08/04/21 08/04/21 08/04/21 Range/Units 04:00 04:38 04:38 WBC 17.7 H (4.5-11.0) K/mm3 RDW 16.5 H (13.2-15.2) % POC ABG pCO2 54.3 H (32.0-48.0) mmHg POC ABG pO2 82.2 L (83-108) mmHg ABG Sodium 145.1 H (136.0-145.0) mmol/L ABG Potassium 5.0 H (3.40-4.50) mmol/L ABG Glucose 316 H (65-95) mg/dL Carboxyhemoglobin 0.3 L (0.5-1.5) Chloride 108.3 H (98-107) mmol/L BUN 76 H (7-17) mg/dL Creatinine 1.4 H (0.6-1.2) mg/dL Glucose 310 H (65-100) mg/dL POC Glucose (70-105) mg/dL Lactic Acid (0.7-2.0) mmol/L Magnesium 2.70 H (1.7-2.3) mg/dL Arterial Blood Glucose 316 H (65-95) mg/dL 08/04/21 08/04/21 Range/Units 05:19 11:48 WBC (4.5-11.0) K/mm3 RDW (13.2-15.2) % POC ABG pCO2 (32.0-48.0) mmHg POC ABG pO2 (83-108) mmHg ABG Sodium (136.0-145.0) mmol/L ABG Potassium (3.40-4.50) mmol/L ABG Glucose (65-95) mg/dL Carboxyhemoglobin (0.5-1.5) Chloride (98-107) mmol/L BUN (7-17) mg/dL Creatinine (0.6-1.2) mg/dL Glucose (65-100) mg/dL POC Glucose 268 H 197 H (70-105) mg/dL Lactic Acid (0.7-2.0) mmol/L Magnesium (1.7-2.3) mg/dL Arterial Blood Glucose (65-95) mg/dL
--- NOTE | 2021-08-04 17:26 | Progress Note ---
<KMIMY REYES - Last Filed: 08/04/21 17:21> Assessment and Plan Assessment and plan: This is a 66-year-old female with HTN, DM, HLD and COPD admitted for acute hypoxic respiratory failure, COPD exacerbation, pneumonia and left lower leg DVT Neuro: Acute metabolic encephalopathy -Sedated with Versed and fentanyl -RASS goal 0 to -1 -Added Seroquel -Avoid delirium -Reorientation as needed -Bilateral restraints for safety Cardio: h/o HTN, s/p cardiac arrest, h/o HLD -Echocardiogram completed-> EF 50 to 55% with mild diastolic dysfunction -Blood pressure monitor per protocol -Patient had cardiac arrest on 07/29 and was intubated -Antihypertensives prn Respiratory: Acute hypoxic respiratory failure, COPD extubation -CCM consulted, appreciate recommendations -VAP bundle -Daily SBT and SAT trials -Patient became tachypneic with SBT trial today -A.m. vent settings: Assist control tidal volume 450, rate 16, PEEP of 6, 30% FiO2 -Intubated with 7.50 ETT at 22 at the lips on 07/29 -Daily ABG and CXR -Continue SPO2 monitoring -Solu-Medrol GI: MO -NTR consult for tube feeding -BR: Senokot -24-hour net +[phone] -PPI : Acute kidney injury likely 2/2 vasomotor nephropathy, -Nephrology consulted, appreciate recommendations -Presented with a BUN/creatinine of 1.9/19 but up trended to 2.6/61 on 07/31 -08/01 FeNA calculated at 0.13-> indicating prerenal -Strict intake and output -Avoid nephrotoxic medications -Renally dose medications -Elizabeth in place -Pain noted to be 5 today, repeat BMP in the a.m. ID: Acute sepsis, pneumonia -Infectious disease consulted patient recommendations -ABX therapy: Cefepime -07/27 BC x2 with no growth after 4 days -07/29 tracheal aspirate with no growth -Monitor CBCs and fever curve Heme: Left lower leg DVT, leukocytosis -Patient is on Lovenox -SCDs to bilateral lower extremities while in bed -Trend CBC -evidenced on BLE US Oncology: h/o breast cancer, Lung mass -CXR shows suspicious nodular density at the left base -Bronchoscopy planned for a.m. -Heme/oncology consulted, appreciate recommendations -Heme/oncology recommends biopsy -Biopsy completed 08/02; washings and brush sent for cytology, cell count and AFB- > preliminary results obtained, see report -CEA, CA 153, CA 2729 pending Endo: h/o DM -SSI -Avoid hypoglycemia -Lantus, titrate as needed The high probability of a clinically significant, sudden or life threatening deterioration of the [multi] system(s) required my full and direct attention, intervention and personal management. The aggregate critical care time was [60] minutes. This time is in addition to time spent performing reported procedures but includes the following: [x] Data Review and interpretation [x] Patient assessment and monitoring of vital signs [x] Documentation [x] Medication orders and management Disposition Plan: icu Total Time Spent with Patient (Minutes): 60 History Interval history: This is a 66-year-old female with HTN, DM, HLD and COPD who presented to emergency department on 07/28 with complaints of difficulty in breathing ongoing for the past few days via EMS. En route she was given Solu-Medrol IV magnesium and albuterol nebulizing treatment. Upon arrival to emergency department patient had multiple rounds of embolizing treatments and was subsequently placed on BiPAP with some improvement. Patient has been fully vaccinated. Work-up in the emergency department revealed CXR suspicious for right-sided pneumonia, nodular density in the left base and increased interstitial markings which may be chronic. Patient was admitted to the hospitalist service with electrolyte imbalances, leukocytosis, COPD exacerbation, hypoxia and possible pneumonia. 07/29/2021. Patient seen this morning with Shabbir-Chavira respiration/agonal breathing. RENEE ABREU was called and patient was intubated and placed on mechanical ventilation. Patient transferred to ICU. Critical care/pulmonary consulted. Patient currently with AC mode rate of 30, FiO2 100%, PEEP of 12. Continue IV antibiotics. Consult ID and oncology for further evaluation. Patient will likely need bronchoscopy for further evaluation of the lung mass. Doppler ultrasound revealedLLE DVT. Start anticoagulation. 07/30/2021. Patient appears much improved and more responsive this morning. Patient currently with AC mode ventilation rate of 24, tidal volume 450, PEEP of 8 and FiO2 35%. Spontaneous breathing trials with possible extubation today per pulmonary. Bronchoscopy per pulmonary. Continue Lovenox twice daily for DVT. Continue IV antibiotics for sepsis/pneumonia. ID consultation pending. Follow-up CEA, CA 15-3, CA 2729. 07/31/2021. Echocardiogram reveals left ventricular size and function are normal. EF 50 to 55% with mild diastolic dysfunction. Patient currently with CPAP/PSV trial 11/02. Anticipate extubation today per pulmonary. Bronchoscopy per pulmonary. Continue Lovenox twice daily for DVT. Continue IV antibiotics for sepsis/pneumonia. ID consultation pending. Follow-up CEA, CA 15-3, CA 2729. 08/01: ALIYAH 08/02: Patient had a bronchoscopy today. Cell count, cytology and AFB sent from samples. Patient remains sedated on fentanyl and Versed. Patient and daughter Rosana were updated. 08/03: [facility] follow-up on [facility] specimens and was informed patient specimens indicate cancer. Communicated to Dr. Abbott and he stated he will update family. 08/04: Patient remains sedated on fentanyl and Versed, patient has moments of agitation with any stimulation. CPAP trial unable to be completed today due to agitation. Hospitalist Physical - Constitutional Vitals: Temp Pulse Resp BP Pulse Ox 99.3 F 127 H 18 149/91 97 08/04/21 16:00 08/04/21 15:40 08/04/21 14:00 08/04/21 15:40 08/04/21 15:40 General appearance: Present: no acute distress, well-nourished, other - EENT Eyes: Present: PERRL, EOM intact ENT: dentition normal - Neck Neck: Present: normal ROM - Respiratory Respiratory effort: normal Respiratory: bilateral: diminished - Cardiovascular Rhythm: regular Heart Sounds: Present: S1 & S2. Absent: systolic murmur, diastolic murmur - Extremities Extremities: no ischemia, pulses intact, pulses symmetrical Peripheral Pulses: within normal limits - Abdominal General gastrointestinal: soft, non-tender, non-distended, normal bowel sounds - Psychiatric Psychiatric: other (sedated) - Neurologic Neurologic: other - Allied Health Allied health notes reviewed: nursing, RT Results - Labs CBC & Chem 7: 08/04/21 04:38 08/04/21 04:38 Labs: Laboratory Last Values WBC 17.7 K/mm3 (4.5-11.0) H 08/04/21 04:38 RBC 4.02 M/mm3 (3.65-5.03) 08/04/21 04:38 Hgb 11.8 gm/dl (10.1-14.3) 08/04/21 04:38 Hct 35.7 % (30.3-42.9) 08/04/21 04:38 MCV 89 fl (79-97) 08/04/21 04:38 MCH 29 pg (28-32) 08/04/21 04:38 MCHC 33 % (30-34) 08/04/21 04:38 RDW 16.5 % (13.2-15.2) H 08/04/21 04:38 Plt Count 265 K/mm3 (140-440) 08/04/21 04:38 Lymph % (Auto) 5.1 % (13.4-35.0) L 08/02/21 Unknown [place] % (Auto) 6.1 % (0.0-7.3) 08/02/21 Unknown Eos % (Auto) 0.0 % (0.0-4.3) 08/02/21 Unknown Baso % (Auto) 0.1 % (0.0-1.8) 08/02/21 Unknown Lymph # (Auto) 0.7 K/mm3 (1.2-5.4) L 08/02/21 Unknown [place] # (Auto) 0.9 K/mm3 (0.0-0.8) H 08/02/21 Unknown Eos # (Auto) 0.0 K/mm3 (0.0-0.4) 08/02/21 Unknown Baso # (Auto) 0.0 K/mm3 (0.0-0.1) 08/02/21 Unknown Add Manual Diff Complete 08/01/21 05:50 Total Counted 100 08/01/21 05:50 Seg Neutrophils % 88.7 % (40.0-70.0) H 08/02/21 Unknown Seg Neuts % (Manual) 93.0 % (40.0-70.0) H 08/01/21 05:50 Band Neutrophils % 1.0 % 07/31/21 04:45 Lymphocytes % (Manual) 2.0 % (13.4-35.0) L 08/01/21 05:50 Monocytes % (Manual) 3.0 % (0.0-7.3) 08/01/21 05:50 Metamyelocytes % 1.0 % 08/01/21 05:50 Myelocytes % 1.0 % 08/01/21 05:50 Nucleated RBC % 3.0 % (0.0-0.9) H 08/01/21 05:50 Seg Neutrophils # 12.5 K/mm3 (1.8-7.7) H 08/02/21 Unknown Seg Neutrophils # Man 15.1 K/mm3 (1.8-7.7) H 08/01/21 05:50 Band Neutrophils # 0.0 K/mm3 08/01/21 05:50 Lymphocytes # (Manual) 0.3 K/mm3 (1.2-5.4) L 08/01/21 05:50 Abs React Lymphs (Man) 0.0 K/mm3 08/01/21 05:50 Monocytes # (Manual) 0.5 K/mm3 (0.0-0.8) 08/01/21 05:50 Eosinophils # (Manual) 0.0 K/mm3 (0.0-0.4) 08/01/21 05:50 Basophils # (Manual) 0.0 K/mm3 (0.0-0.1) 08/01/21 05:50 Metamyelocytes # 0.2 K/mm3 08/01/21 05:50 Myelocytes # 0.2 K/mm3 08/01/21 05:50 Promyelocytes # 0.0 K/mm3 08/01/21 05:50 Blast Cells # 0.0 K/mm3 08/01/21 05:50 WBC Morphology Not Reportable 08/01/21 05:50 Hypersegmented Neuts Not Reportable 08/01/21 05:50 Hyposegmented Neuts Not Reportable 08/01/21 05:50 Hypogranular Neuts Not Reportable 08/01/21 05:50 Smudge Cells Not Reportable 08/01/21 05:50 Toxic Granulation Not Reportable 08/01/21 05:50 Toxic Vacuolation Not Reportable 08/01/21 05:50 Dohle Bodies Not Reportable 08/01/21 05:50 Pelger-Huet Anomaly Not Reportable 08/01/21 05:50 Beryl Rods Not Reportable 08/01/21 05:50 Platelet Estimate Consistent w auto 08/01/21 05:50 Clumped Platelets Not Reportable 08/01/21 05:50 Plt Clumps, EDTA Not Reportable 08/01/21 05:50 Large Platelets Not Reportable 08/01/21 05:50 Giant Platelets Not Reportable 08/01/21 05:50 Platelet Satelliting Not Reportable 08/01/21 05:50 Plt Morphology Comment Not Reportable 08/01/21 05:50 RBC Morphology Normal 08/01/21 05:50 Dimorphic RBCs Not Reportable 08/01/21 05:50 Polychromasia Not Reportable 08/01/21 05:50 Hypochromasia Not Reportable 08/01/21 05:50 Poikilocytosis Not Reportable 08/01/21 05:50 Anisocytosis Not Reportable 08/01/21 05:50 Microcytosis Not Reportable 08/01/21 05:50 Macrocytosis Not Reportable 08/01/21 05:50 Spherocytes Not Reportable 08/01/21 05:50 Pappenheimer Bodies Not Reportable 08/01/21 05:50 Sickle Cells Not Reportable 08/01/21 05:50 Target Cells Not Reportable 08/01/21 05:50 Tear Drop Cells Not Reportable 08/01/21 05:50 Ovalocytes Not Reportable 08/01/21 05:50 Helmet Cells Not Reportable 08/01/21 05:50 [place] Bodies Not Reportable 08/01/21 05:50 [place] Rings Not Reportable 08/01/21 05:50 Estelita Cells Not Reportable 08/01/21 05:50 Bite Cells Not Reportable 08/01/21 05:50 Crenated Cell Not Reportable 08/01/21 05:50 Elliptocytes Not Reportable 08/01/21 05:50 Acanthocytes (Spur) Not Reportable 08/01/21 05:50 Rouleaux Not Reportable 08/01/21 05:50 Hemoglobin C Crystals Not Reportable 08/01/21 05:50 Schistocytes Not Reportable 08/01/21 05:50 Malaria parasites Not Reportable 08/01/21 05:50 Gurmeet Bodies Not Reportable 08/01/21 05:50 Hem Pathologist Commnt No 08/01/21 05:50 PT 14.0 Sec. (12.2-14.9) 08/03/21 08:30 INR 1.03 (0.87-1.13) 08/03/21 08:30 D-Dimer 852.47 ng/mlDDU (0-234) H 07/29/21 07:17 ABG pH 7.321 (7.320-7.450) 08/04/21 04:00 POC ABG pCO2 54.3 mmHg (32.0-48.0) H 08/04/21 04:00 POC ABG pO2 82.2 mmHg (83-108) L 08/04/21 04:00 POC ABG HCO3 27.4 08/04/21 04:00 ABG O2 Saturation 95.2 (0-100) 08/04/21 04:00 POC ABG Base Excess 0.5 08/04/21 04:00 ABG Hemoglobin 12.6 (12.0-17.5) 08/04/21 04:00 ABG Oxyhemoglobin 94.6 (94-98) 08/04/21 04:00 ABG Methemoglobin 0.3 (0.0-1.5) 08/04/21 04:00 ABG Sodium 145.1 mmol/L (136.0-145.0) H 08/04/21 04:00 ABG Potassium 5.0 mmol/L (3.40-4.50) H 08/04/21 04:00 ABG Chloride 107.0 mmol/L (98-107) 08/04/21 04:00 ABG Glucose 316 mg/dL (65-95) H 08/04/21 04:00 Carboxyhemoglobin 0.3 (0.5-1.5) L 08/04/21 04:00 FiO2 % 30.0 08/04/21 04:00 Sodium 145 mmol/L (137-145) 08/04/21 04:38 Potassium 5.0 mmol/L (3.6-5.0) 08/04/21 04:38 Chloride 108.3 mmol/L (98-107) H 08/04/21 04:38 Carbon Dioxide 27 mmol/L (22-30) 08/04/21 04:38 Anion Gap 15 mmol/L 08/04/21 04:38 BUN 76 mg/dL (7-17) H 08/04/21 04:38 Creatinine 1.4 mg/dL (0.6-1.2) H 08/04/21 04:38 Estimated GFR 46 ml/min 08/04/21 04:38 BUN/Creatinine Ratio 54 % 08/04/21 04:38 Glucose 310 mg/dL (65-100) H 08/04/21 04:38 POC Glucose 208 mg/dL (70-105) H 08/04/21 16:41 Lactic Acid 2.10 mmol/L (0.7-2.0) H* 08/03/21 15:11 Calcium 8.7 mg/dL (8.4-10.2) 08/04/21 04:38 Phosphorus 3.90 mg/dL (2.5-4.5) 08/04/21 04:38 Magnesium 2.70 mg/dL (1.7-2.3) H 08/04/21 04:38 Total Bilirubin 0.30 mg/dL (0.1-1.2) 07/27/21 22:57 AST 98 units/L (5-40) H 07/27/21 22:57 ALT 90 units/L (7-56) H 07/27/21 22:57 Alkaline Phosphatase 98 units/L (35-129) 07/27/21 22:57 Total Protein 8.0 g/dL (6.3-8.2) 07/27/21 22:57 Albumin 4.2 g/dL (3.9-5) 07/27/21 22:57 Albumin/Globulin Ratio 1.1 % 07/27/21 22:57 Carcinoembryonic Ag <0.5 ng/mL (0.0-2.4) 07/31/21 04:45 Arterial Blood Glucose 316 mg/dL (65-95) H 08/04/21 04:00 Arterial Blood Ionized Calcium 4.7 mg/dL (4.6-5.3) 08/04/21 04:00 Urine Color Yellow (Yellow) 08/02/21 15:30 Urine Turbidity Cloudy (Clear) 08/02/21 15:30 Urine pH 5.0 (5.0-7.0) 08/02/21 15:30 Ur Specific [place] 1.021 (1.003-1.030) 08/02/21 15:30 Urine Protein 30 mg/dl mg/dL (Negative) 08/02/21 15:30 Urine Glucose (UA) Neg mg/dL (Negative) 08/02/21 15:30 Urine Ketones Neg mg/dL (Negative) 08/02/21 15:30 Urine Blood Lg (Negative) 08/02/21 15:30 Urine Nitrite Neg (Negative) 08/02/21 15:30 Urine Bilirubin Neg (Negative) 08/02/21 15:30 Urine Urobilinogen < 2.0 mg/dL (<2.0) 08/02/21 15:30 Ur Leukocyte Esterase Sm (Negative) 08/02/21 15:30 Urine WBC (Auto) 47.0 /HPF (0.0-6.0) H 08/02/21 15:30 Urine RBC (Auto) 140.0 /HPF (0.0-6.0) 08/02/21 15:30 U Epithel Cells (Auto) < 1.0 /HPF (0-13.0) 08/02/21 15:30 Urine Mucus Few /HPF 08/02/21 15:30 Urine Creatinine 125.6 mg/dL (0.1-20.0) H 08/01/21 Unknown Urine Sodium 12 mmol/L 08/01/21 Unknown Coronavirus (PCR) Negative (Negative) 07/29/21 07:58 Hepatitis A IgM Ab Non-reactive (NonReactive) 08/02/21 15:40 Hep Bs Antigen Nonreactive (Negative) 08/02/21 15:40 Hep B Core IgM Ab Non-reactive (NonReactive) 08/02/21 15:40 Hepatitis C Antibody Non-reactive (NonReactive) 08/02/21 15:40 AFB Identification Negative 08/02/21 14:30 Microbiology: Microbiology 08/02/21 15:30 Urine,Clean Catch Urine Culture - Final NO GROWTH AFTER 48 HOURS Elizabeth/IV: Voiding Method Indwelling Catheter Active Medications - Current Medications Current Medications: Generic Name Dose Route Start Last Admin Trade Name Freq PRN Reason Stop Dose Admin Acetaminophen 650 mg 07/28/21 02:11 Acetaminophen 325 Mg Tab PO Q6H PRN Pain MILD(1-3)/Fever >100.5/GARCIA Albuterol/Ipratropium 1 ampul 07/28/21 14:00 08/04/21 16:03 Ipratropium/Albuterol Sulfate 3 Ml Ampul.Neb IH 1 ampul TID DEMIAN Administration Lipase/Protease/Amylase 1 each 07/29/21 13:01 Lipase 10,500/Protease 25,000/Amylase 43,750 (Units) Dr Cap FEEDTUBE PRN PRN For Clogged Feeding Tube Arformoterol Tartrate 15 mcg 07/28/21 20:00 08/04/21 08:48 Arformoterol 15 Mcg/2 Ml Nebu IH 15 mcg Q12HRT DEMIAN Administration Budesonide 0.5 mg 07/28/21 20:00 08/04/21 08:48 Budesonide 0.5 Mg/2 Ml Nebu IH 0.5 mg Q12HRT DEMIAN Administration Dextrose 50 ml 07/28/21 02:11 Dextrose 50% In Water (25gm) 50 Ml Syringe IV Q30MIN PRN Hypoglycemia Protocol Enoxaparin Sodium 100 mg 08/02/21 10:00 08/04/21 09:59 Enoxaparin 100 Mg/1 Ml Inj SUB-Q 100 mg Q24H DEMIAN Administration Protocol Famotidine 10 mg 08/02/21 10:00 08/04/21 09:31 Famotidine 20 Mg/2 Ml Inj IV 10 mg BID DEMIAN Administration Fentanyl 50 mcg 07/29/21 10:42 08/04/21 09:05 Fentanyl 100 Mcg/2 Ml Inj IV 50 mcg Q10MIN PRN Administration ANALGESIA Hydralazine HCl 10 mg 07/30/21 14:52 08/03/21 17:31 Hydralazine 20 Mg/1 Ml Inj IV 10 mg Q6H PRN Administration SBP > 165 Hydrophilic Ointment 1 applic 07/29/21 10:42 Lip Therapy Vaseline TP Q2HR PRN Dry Lips Fentanyl Citrate 2,000 mcg in 100 mls @ 5.35 mls/hr 07/29/21 11:00 08/04/21 12:49 Fentanyl Drip Premix IV 4 mcg/kg/hr TITR DEMIAN 21.4 mls/hr Administration Protocol 1 MCG/KG/HR Midazolam HCl 100 mg/ Sodium 100 mls @ 2 mls/hr 07/29/21 11:00 08/03/21 05:41 Chloride IV 0 mg/hr TITR DEMIAN 0 mls/hr Titration Protocol 2 MG/HR Norepinephrine 4 mg in 250 mls @ 7.5 mls/hr 07/29/21 21:00 Levophed Drip 4 Mg/Ns 250 Ml IV TITR DEMIAN Protocol 2 MCG/MIN Cefepime HCl 2 gm in 100 mls @ 200 mls/hr 08/02/21 10:00 08/04/21 12:48 Cefepime/Ns 2 Gm/100 Ml IV 08/07/21 22:29 200 mls/hr Q12H DEMIAN Administration Protocol Sodium Chloride 1,000 mls @ 50 mls/hr 08/02/21 12:15 Nacl 0.9% 1000 Ml IV DIRECT DEMIAN Sodium Chloride 1,000 mls @ 75 mls/hr 08/03/21 10:00 08/04/21 12:50 Nacl 0.45% 1000 Ml IV 75 mls/hr DIRECT DEMIAN Administration Insulin Glargine 20 units 08/03/21 22:00 08/03/21 21:39 Insulin Glargine 100 Units/Ml SUB-Q 20 units QHS DEMIAN Administration Insulin Human Lispro 0 unit 07/29/21 12:00 08/04/21 12:50 Insulin Lispro 100 Unit/Ml SUB-Q 3 unit Q6HR DEMIAN Administration Protocol Magnesium Hydroxide 30 ml 07/28/21 02:11 Magnesium Hydroxide (Mom) Oral Liqd Udc PO Q4H PRN Constipation Methylprednisolone Sodium Succinate 40 mg 08/04/21 10:00 08/04/21 09:33 Methylprednisolone Sod Succinate 40 Mg/1 Ml Inj IV 08/04/21 22:01 40 mg Q12HR DEMIAN Administration Methylprednisolone Sodium Succinate 40 mg 08/05/21 10:00 Methylprednisolone Sod Succinate 40 Mg/1 Ml Inj IV 08/05/21 10:01 Q24HR [facility] Midazolam HCl 2 mg 07/29/21 10:42 Midazolam 2 Mg/2 Ml Inj IV Q10MIN PRN Sedation Multi-Ingred Cream/Lotion/Oil/Oint 1 applic 07/29/21 10:42 Mineral Oil/Petrolatum, White Ophth Oint 3.5 Gm OU Q4HR PRN Dry Eye(s) Ondansetron HCl 4 mg 07/28/21 02:11 Ondansetron 4 Mg/2 Ml Inj IV Q8H PRN Nausea And Vomiting Quetiapine Fumarate 100 mg 08/03/21 22:00 08/04/21 09:31 Quetiapine 100 Mg Tab PO 100 mg BID DEMIAN Administration Senna/Docusate Sodium 1 tab 07/29/21 22:00 08/04/21 09:31 Sennosides/Docusate Sodium 8.6/50 Mg Tab FEEDTUBE 1 tab BID DEMIAN Administration Simple Syrup 15 ml 07/29/21 13:01 Simple Syrup 15 Ml FEEDTUBE PRN PRN Hypoglycemia Simple Syrup 30 ml 07/29/21 13:01 Simple Syrup 15 Ml FEEDTUBE PRN PRN Hypoglycemia Sodium Bicarbonate 325 mg 07/29/21 13:01 Sodium Bicarbonate 325 Mg Tab FEEDTUBE PRN PRN For Clogged Feeding Tube Sodium Chloride 10 ml 07/28/21 10:00 08/04/21 12:51 Sodium Chloride 0.9% 10 Ml Flush Syringe IV 10 ml BID DEMIAN Administration Sodium Chloride 10 ml 07/28/21 02:05 Sodium Chloride 0.9% 10 Ml Flush Syringe IV PRN PRN LINE FLUSH Nutrition/Malnutrition Assess - Dietary Evaluation Nutrition/Malnutrition Findings: Nutrition Notes Start: 07/28/21 14:44 Freq: Status: Active Protocol: Document 08/04/21 12:18 (Rec: 08/04/21 12:22 [id number]) Nutrition Notes Initial or Follow up Reassessment Current Diagnosis COPD,Diabetes,Hypertension, Respiratory Failure Other Pertinent Diagnosis pneu Current Diet Vital AF at 50 ml/hr Labs/Tests BUN 76 Cr 1.4 BG 310 Mg 2.7 Pertinent Medications Solu Medrol Humalog Height 5 ft Weight 107 kg [place] Body Weight (kg) 45.45 BMI 46.0 Weight Status Morbidly Obese Subjective/Other Information TF running at goal rate and no signs of intolerance noted. [facility] specimens indicate cancer. Percent of energy/protein needs met: 96%/67% Burn Absent Trauma Absent Current % PO Negligible Minimum of two criteria No #1 Nutrition Diagnosis Inadequate oral intake Diagnosis Progress(for reassessment Continues documentation) Is patient on ventilator? Yes Is Patient Ambulatory and/or Out of Bed No REE-([facility]-confined to bed) 1842.852 Kcal/Kg value to use for calculation 14 Approximate Energy Requirements Using 1498 kcal/Kg Calculation Used for Recommendations Kcal/kg Additional Notes Protein: (up to 2.5g/kg IBW) up to 134g Fluid: 1 ml/kcal or per MD Nutrition Intervention Change Diet Order: continue Nutrition Support: Vital AF 1.2 at 50 ml/hr Flush 75 ml q4h or per MD Kcal 1,440 Protein (gm) 90 Fluid (mL) 973 Goal #1 Meet at least 75% of protein and energy needs via TF Anticipated Discharge Needs: Unable to determine at this time Follow-Up By: 08/08/21 Additional Comments F/u: stable TF, renal function <LINDSAY FARR - Last Filed: 08/05/21 16:54> History Interval history: I saw and evaluated the patient. Discussed with the nurse practitioner and agree with their findings and plan as documented in this note. Hospitalist Physical - Constitutional Vitals: Temp Pulse Resp BP Pulse Ox 99.1 F 87 16 121/58 97 08/05/21 12:00 08/05/21 15:45 08/05/21 15:45 08/05/21 15:45 08/05/21 15:45 Results - Labs CBC & Chem 7: 08/05/21 04:50 08/05/21 04:50 Labs: Laboratory Last Values WBC 19.0 K/mm3 (4.5-11.0) H 08/05/21 04:50 RBC 3.91 M/mm3 (3.65-5.03) 08/05/21 04:50 Hgb 11.5 gm/dl (10.1-14.3) 08/05/21 04:50 Hct 35.0 % (30.3-42.9) 08/05/21 04:50 MCV 90 fl (79-97) 08/05/21 04:50 MCH 30 pg (28-32) 08/05/21 04:50 MCHC 33 % (30-34) 08/05/21 04:50 RDW 17.0 % (13.2-15.2) H 08/05/21 04:50 Plt Count 237 K/mm3 (140-440) 08/05/21 04:50 Lymph % (Auto) 5.1 % (13.4-35.0) L 08/02/21 Unknown [place] % (Auto) 6.1 % (0.0-7.3) 08/02/21 Unknown Eos % (Auto) 0.0 % (0.0-4.3) 08/02/21 Unknown Baso % (Auto) 0.1 % (0.0-1.8) 08/02/21 Unknown Lymph # (Auto) 0.7 K/mm3 (1.2-5.4) L 08/02/21 Unknown [place] # (Auto) 0.9 K/mm3 (0.0-0.8) H 08/02/21 Unknown Eos # (Auto) 0.0 K/mm3 (0.0-0.4) 08/02/21 Unknown Baso # (Auto) 0.0 K/mm3 (0.0-0.1) 08/02/21 Unknown Add Manual Diff Complete 08/05/21 04:50 Total Counted 100 08/05/21 04:50 Seg Neutrophils % 88.7 % (40.0-70.0) H 08/02/21 Unknown Seg Neuts % (Manual) 75.0 % (40.0-70.0) H 08/05/21 04:50 Band Neutrophils % 8.0 % 08/05/21 04:50 Lymphocytes % (Manual) 2.0 % (13.4-35.0) L 08/05/21 04:50 Monocytes % (Manual) 5.0 % (0.0-7.3) 08/05/21 04:50 Eosinophils % (Manual) 1.0 % (0.0-4.3) 08/05/21 04:50 Metamyelocytes % 6.0 % 08/05/21 04:50 Myelocytes % 3.0 % 08/05/21 04:50 Nucleated RBC % Not Reportable 08/05/21 04:50 Seg Neutrophils # 12.5 K/mm3 (1.8-7.7) H 08/02/21 Unknown Seg Neutrophils # Man 14.3 K/mm3 (1.8-7.7) H 08/05/21 04:50 Band Neutrophils # 1.5 K/mm3 08/05/21 04:50 Lymphocytes # (Manual) 0.4 K/mm3 (1.2-5.4) L 08/05/21 04:50 Abs React Lymphs (Man) 0.0 K/mm3 08/05/21 04:50 Monocytes # (Manual) 1.0 K/mm3 (0.0-0.8) H 08/05/21 04:50 Eosinophils # (Manual) 0.2 K/mm3 (0.0-0.4) 08/05/21 04:50 Basophils # (Manual) 0.0 K/mm3 (0.0-0.1) 08/05/21 04:50 Metamyelocytes # 1.1 K/mm3 08/05/21 04:50 Myelocytes # 0.6 K/mm3 08/05/21 04:50 Promyelocytes # 0.0 K/mm3 08/05/21 04:50 Blast Cells # 0.0 K/mm3 08/05/21 04:50 WBC Morphology Not Reportable 08/05/21 04:50 Hypersegmented Neuts Not Reportable 08/05/21 04:50 Hyposegmented Neuts Not Reportable 08/05/21 04:50 Hypogranular Neuts Not Reportable 08/05/21 04:50 Smudge Cells Not Reportable 08/05/21 04:50 Toxic Granulation Not Reportable 08/05/21 04:50 Toxic Vacuolation Not Reportable 08/05/21 04:50 Dohle Bodies Not Reportable 08/05/21 04:50 Pelger-Huet Anomaly Not Reportable 08/05/21 04:50 Beryl Rods Not Reportable 08/05/21 04:50 Platelet Estimate Consistent w auto 08/05/21 04:50 Clumped Platelets Not Reportable 08/05/21 04:50 Plt Clumps, EDTA Not Reportable 08/05/21 04:50 Large Platelets Not Reportable 08/05/21 04:50 Giant Platelets Not Reportable 08/05/21 04:50 Platelet Satelliting Not Reportable 08/05/21 04:50 Plt Morphology Comment Not Reportable 08/05/21 04:50 RBC Morphology Not Reportable 08/05/21 04:50 Dimorphic RBCs Not Reportable 08/05/21 04:50 Polychromasia Not Reportable 08/05/21 04:50 Hypochromasia Not Reportable 08/05/21 04:50 Poikilocytosis Not Reportable 08/05/21 04:50 Anisocytosis Not Reportable 08/05/21 04:50 Microcytosis Not Reportable 08/05/21 04:50 Macrocytosis Not Reportable 08/05/21 04:50 Spherocytes Not Reportable 08/05/21 04:50 Pappenheimer Bodies Not Reportable 08/05/21 04:50 Sickle Cells Not Reportable 08/05/21 04:50 Target Cells Not Reportable 08/05/21 04:50 Tear Drop Cells Not Reportable 08/05/21 04:50 Ovalocytes Few 08/05/21 04:50 Helmet Cells Not Reportable 08/05/21 04:50 [place] Bodies Not Reportable 08/05/21 04:50 [place] Rings Not Reportable 08/05/21 04:50 Estelita Cells Not Reportable 08/05/21 04:50 Bite Cells Not Reportable 08/05/21 04:50 Crenated Cell Not Reportable 08/05/21 04:50 Elliptocytes Not Reportable 08/05/21 04:50 Acanthocytes (Spur) Not Reportable 08/05/21 04:50 Rouleaux Not Reportable 08/05/21 04:50 Hemoglobin C Crystals Not Reportable 08/05/21 04:50 Schistocytes Not Reportable 08/05/21 04:50 Malaria parasites Not Reportable 08/05/21 04:50 Gurmeet Bodies Not Reportable 08/05/21 04:50 Hem Pathologist Commnt No 08/05/21 04:50 PT 14.0 Sec. (12.2-14.9) 08/03/21 08:30 INR 1.03 (0.87-1.13) 08/03/21 08:30 D-Dimer 852.47 ng/mlDDU (0-234) H 07/29/21 07:17 ABG pH 7.314 (7.320-7.450) L 08/05/21 04:00 POC ABG pCO2 48.9 mmHg (32.0-48.0) H 08/05/21 04:00 POC ABG pO2 89.1 mmHg (83-108) 08/05/21 04:00 POC ABG HCO3 24.3 08/05/21 04:00 ABG O2 Saturation 96.1 (0-100) 08/05/21 04:00 POC ABG Base Excess -2.2 08/05/21 04:00 ABG Hemoglobin 12.5 (12.0-17.5) 08/05/21 04:00 ABG Oxyhemoglobin 95.7 (94-98) 08/05/21 04:00 ABG Methemoglobin 0 (0.0-1.5) 08/05/21 04:00 ABG Sodium 143.1 mmol/L (136.0-145.0) 08/05/21 04:00 ABG Potassium 5.0 mmol/L (3.40-4.50) H 08/05/21 04:00 ABG Chloride 109.0 mmol/L (98-107) H 08/05/21 04:00 ABG Glucose 234 mg/dL (65-95) H 08/05/21 04:00 Carboxyhemoglobin 0.4 (0.5-1.5) L 08/05/21 04:00 FiO2 % 30.0 08/05/21 04:00 Sodium 145 mmol/L (137-145) 08/05/21 04:50 Potassium 5.2 mmol/L (3.6-5.0) H 08/05/21 04:50 Chloride 110.0 mmol/L (98-107) H 08/05/21 04:50 Carbon Dioxide 25 mmol/L (22-30) 08/05/21 04:50 Anion Gap 15 mmol/L 08/05/21 04:50 BUN 90 mg/dL (7-17) H 08/05/21 04:50 Creatinine 1.8 mg/dL (0.6-1.2) H 08/05/21 04:50 Estimated GFR 34 ml/min 08/05/21 04:50 BUN/Creatinine Ratio 50 % 08/05/21 04:50 Glucose 235 mg/dL (65-100) H 08/05/21 04:50 POC Glucose 193 mg/dL (70-105) H 08/05/21 12:02 Lactic Acid 2.10 mmol/L (0.7-2.0) H* 08/03/21 15:11 Calcium 8.4 mg/dL (8.4-10.2) 08/05/21 04:50 Phosphorus 4.20 mg/dL (2.5-4.5) 08/05/21 04:50 Magnesium 2.60 mg/dL (1.7-2.3) H 08/05/21 04:50 Total Bilirubin 0.30 mg/dL (0.1-1.2) 07/27/21 22:57 AST 98 units/L (5-40) H 07/27/21 22:57 ALT 90 units/L (7-56) H 07/27/21 22:57 Alkaline Phosphatase 98 units/L (35-129) 07/27/21 22:57 Total Protein 8.0 g/dL (6.3-8.2) 07/27/21 22:57 Albumin 4.2 g/dL (3.9-5) 07/27/21 22:57 Albumin/Globulin Ratio 1.1 % 07/27/21 22:57 Carcinoembryonic Ag <0.5 ng/mL (0.0-2.4) 07/31/21 04:45 Arterial Blood Glucose 234 mg/dL (65-95) H 08/05/21 04:00 Arterial Blood Ionized Calcium 4.6 mg/dL (4.6-5.3) 08/05/21 04:00 Urine Color Yellow (Yellow) 08/02/21 15:30 Urine Turbidity Cloudy (Clear) 08/02/21 15:30 Urine pH 5.0 (5.0-7.0) 08/02/21 15:30 Ur Specific [place] 1.021 (1.003-1.030) 08/02/21 15:30 Urine Protein 30 mg/dl mg/dL (Negative) 08/02/21 15:30 Urine Glucose (UA) Neg mg/dL (Negative) 08/02/21 15:30 Urine Ketones Neg mg/dL (Negative) 08/02/21 15:30 Urine Blood Lg (Negative) 08/02/21 15:30 Urine Nitrite Neg (Negative) 08/02/21 15:30 Urine Bilirubin Neg (Negative) 08/02/21 15:30 Urine Urobilinogen < 2.0 mg/dL (<2.0) 08/02/21 15:30 Ur Leukocyte Esterase Sm (Negative) 08/02/21 15:30 Urine WBC (Auto) 47.0 /HPF (0.0-6.0) H 08/02/21 15:30 Urine RBC (Auto) 140.0 /HPF (0.0-6.0) 08/02/21 15:30 U Epithel Cells (Auto) < 1.0 /HPF (0-13.0) 08/02/21 15:30 Urine Mucus Few /HPF 08/02/21 15:30 Urine Creatinine 125.6 mg/dL (0.1-20.0) H 08/01/21 Unknown Urine Sodium 12 mmol/L 08/01/21 Unknown Double Strand DNA Ab 1 IU/mL (<=4) 08/02/21 15:40 Coronavirus (PCR) Negative (Negative) 07/29/21 07:58 Hepatitis A IgM Ab Non-reactive (NonReactive) 08/02/21 15:40 Hep Bs Antigen Nonreactive (Negative) 08/02/21 15:40 Hep B Core IgM Ab Non-reactive (NonReactive) 08/02/21 15:40 Hepatitis C Antibody Non-reactive (NonReactive) 08/02/21 15:40 AFB Identification Negative 08/02/21 14:30 Elizabeth/IV: Voiding Method Indwelling Catheter Active Medications - Current Medications Current Medications: Generic Name Dose Route Start Last Admin Trade Name Freq PRN Reason Stop Dose Admin Acetaminophen 650 mg 07/28/21 02:11 Acetaminophen 325 Mg Tab PO Q6H PRN Pain MILD(1-3)/Fever >100.5/GARCIA Albuterol/Ipratropium 1 ampul 07/28/21 14:00 08/05/21 13:18 Ipratropium/Albuterol Sulfate 3 Ml Ampul.Neb IH 1 ampul TID DEMIAN Administration Lipase/Protease/Amylase 1 each 07/29/21 13:01 Lipase 10,500/Protease 25,000/Amylase 43,750 (Units) Dr Campoverde FEEDTUBE PRN PRN For Clogged Feeding Tube Arformoterol Tartrate 15 mcg 07/28/21 20:00 08/05/21 08:31 Arformoterol 15 Mcg/2 Ml Nebu IH 15 mcg Q12HRT DEMIAN Administration Budesonide 0.5 mg 07/28/21 20:00 08/05/21 08:31 Budesonide 0.5 Mg/2 Ml Nebu IH 0.5 mg Q12HRT DEMIAN Administration Dextrose 50 ml 07/28/21 02:11 Dextrose 50% In Water (25gm) 50 Ml Syringe IV Q30MIN PRN Hypoglycemia Protocol Enoxaparin Sodium 100 mg 08/02/21 10:00 08/05/21 09:27 Enoxaparin 100 Mg/1 Ml Inj SUB-Q 100 mg Q24H DEMIAN Administration Protocol Famotidine 10 mg 08/02/21 10:00 08/05/21 09:14 Famotidine 20 Mg/2 Ml Inj IV 10 mg BID DEMIAN Administration Fentanyl 50 mcg 07/29/21 10:42 08/04/21 09:05 Fentanyl 100 Mcg/2 Ml Inj IV 50 mcg Q10MIN PRN Administration ANALGESIA Hydralazine HCl 10 mg 07/30/21 14:52 08/03/21 17:31 Hydralazine 20 Mg/1 Ml Inj IV 10 mg Q6H PRN Administration SBP > 165 Hydrophilic Ointment 1 applic 07/29/21 10:42 Lip Therapy Vaseline TP Q2HR PRN Dry Lips Fentanyl Citrate 2,000 mcg in 100 mls @ 5.35 mls/hr 07/29/21 11:00 08/05/21 11:34 Fentanyl Drip Premix IV 4 mcg/kg/hr TITR DEMIAN 21.4 mls/hr Administration Protocol 1 MCG/KG/HR Midazolam HCl 100 mg/ Sodium 100 mls @ 2 mls/hr 07/29/21 11:00 08/05/21 11:36 Chloride IV 2 mg/hr TITR DEMIAN 2 mls/hr Titration Protocol 2 MG/HR Norepinephrine 4 mg in 250 mls @ 7.5 mls/hr 07/29/21 21:00 Levophed Drip 4 Mg/Ns 250 Ml IV TITR DEMIAN Protocol 2 MCG/MIN Cefepime HCl 2 gm in 100 mls @ 200 mls/hr 08/02/21 10:00 08/05/21 09:27 Cefepime/Ns 2 Gm/100 Ml IV 08/07/21 22:29 200 mls/hr Q12H DEMIAN Administration Protocol Sodium Chloride 1,000 mls @ 75 mls/hr 08/03/21 10:00 08/05/21 01:43 Nacl 0.45% 1000 Ml IV 75 mls/hr DIRECT DEMIAN Administration Insulin Glargine 30 units 08/05/21 22:00 Insulin Glargine 100 Units/Ml SUB-Q QHS DEMIAN Insulin Human Lispro 0 unit 07/29/21 12:00 08/05/21 13:11 Insulin Lispro 100 Unit/Ml SUB-Q 4 unit Q6HR [facility] Administration Protocol Magnesium Hydroxide 30 ml 07/28/21 02:11 Magnesium Hydroxide (Mom) Oral Liqd Udc PO Q4H PRN Constipation Midazolam HCl 2 mg 07/29/21 10:42 08/05/21 09:19 Midazolam 2 Mg/2 Ml Inj IV 2 mg Q10MIN PRN Administration Sedation Multi-Ingred Cream/Lotion/Oil/Oint 1 applic 07/29/21 10:42 Mineral Oil/Petrolatum, White Ophth Oint 3.5 Gm OU Q4HR PRN Dry Eye(s) Ondansetron HCl 4 mg 07/28/21 02:11 Ondansetron 4 Mg/2 Ml Inj IV Q8H PRN Nausea And Vomiting Quetiapine Fumarate 200 mg 08/05/21 22:00 Quetiapine 200 Mg Tab PO BID DEMIAN Senna/Docusate Sodium 1 tab 07/29/21 22:00 08/05/21 09:18 Sennosides/Docusate Sodium 8.6/50 Mg Tab FEEDTUBE 1 tab BID DEMIAN Administration Simple Syrup 15 ml 07/29/21 13:01 Simple Syrup 15 Ml FEEDTUBE PRN PRN Hypoglycemia Simple Syrup 30 ml 07/29/21 13:01 Simple Syrup 15 Ml FEEDTUBE PRN PRN Hypoglycemia Sodium Bicarbonate 325 mg 07/29/21 13:01 Sodium Bicarbonate 325 Mg Tab FEEDTUBE PRN PRN For Clogged Feeding Tube Sodium Chloride 10 ml 07/28/21 10:00 08/05/21 09:29 Sodium Chloride 0.9% 10 Ml Flush Syringe IV 10 ml BID DEMIAN Administration Sodium Chloride 10 ml 07/28/21 02:05 Sodium Chloride 0.9% 10 Ml Flush Syringe IV PRN PRN LINE FLUSH Nutrition/Malnutrition Assess - Dietary Evaluation Nutrition/Malnutrition Findings: Nutrition Notes Start: 07/28/21 14:44 Freq: Status: Active Protocol: Document 08/04/21 12:18 (Rec: 08/04/21 12:22 [id number]) Nutrition Notes Initial or Follow up Reassessment Current Diagnosis COPD,Diabetes,Hypertension, Respiratory Failure Other Pertinent Diagnosis pneu Current Diet Vital AF at 50 ml/hr Labs/Tests BUN 76 Cr 1.4 BG 310 Mg 2.7 Pertinent Medications Solu Medrol Humalog Height 5 ft Weight 107 kg [place] Body Weight (kg) 45.45 BMI 46.0 Weight Status Morbidly Obese Subjective/Other Information TF running at goal rate and no signs of intolerance noted. [facility] specimens indicate cancer. Percent of energy/protein needs met: 96%/67% Burn Absent Trauma Absent Current % PO Negligible Minimum of two criteria No #1 Nutrition Diagnosis Inadequate oral intake Diagnosis Progress(for reassessment Continues documentation) Is patient on ventilator? Yes Is Patient Ambulatory and/or Out of Bed No [facility] 1842.852 Kcal/Kg value to use for calculation 14 Approximate Energy Requirements Using 1498 kcal/Kg Calculation Used for Recommendations Kcal/kg Additional Notes Protein: (up to 2.5g/kg IBW) up to 134g Fluid: 1 ml/kcal or per MD Nutrition Intervention Change Diet Order: continue Nutrition Support: Vital AF 1.2 at 50 ml/hr Flush 75 ml q4h or per MD Kcal 1,440 Protein (gm) 90 Fluid (mL) 973 Goal #1 Meet at least 75% of protein and energy needs via TF Anticipated Discharge Needs: Unable to determine at this time Follow-Up By: 08/08/21 Additional Comments F/u: stable TF, renal function
--- NOTE | 2021-08-04 17:58 | Progress Note ---
Assessment and Plan Acute hypoxemic respiratory failure secondary Lung Mass -metastatic breast disease Acute COPD exacerbation Possible hypercapnia History of right breast cancer Leukocytosis DM II Hypertension Hyperlipidemia Tobacco use disorder Hypernatremia Free water flushes and hypotonic solutions to treat hypernatremia The airway obstruction precludes liberation from MVS Daily SAT,SBT as tolerated Oncology will discuss goals of care and prognosis with family to help direct further management plans. - continue daily SAT and SBT assessment as tolerated - continue totitrate supplemental oxygen to keep SpO2 88-90% - VAP bundle addressed, aspiration precautions HOB >30 - continue lung protective strategies - continue bronchodilators (GLADIS & LABA) with pulmonary hygiene per RT - wean per pulmonary driven protocols otherwise - continue accuchecks with glycemic control per SSI (While critically ill target blood glucose of 140-180 mg/dL; avoid hypoglycemia) - sedation prn for target RASS -1 to -2 - avoid nephrotoxins, renally dose all medications - continue to avoid benzodiazepines, reduce the possibility of delirium May need to change Midazolam infusion to Propofol - complete antibiotics per ID recommendations. De-escalate based on culture data and clinical response - prn analgesia per CPOT score - Maintenance of sleep-wake cycle, avoid delirium - enteric nutritional support at goal rate as tolerated - G.I. & VTE prophylaxis - PT/OT/ROM exercises - continue mobility protocols for pressure ulcer prophylaxis - Monitor hemodynamics closely - continue other care per attending / other consultants COVID SPECIFIC INTERVENTIONS - test result pending CONDITION: CRITICAL PROGNOSIS: GUARDED CODE STATUS: FULL CODE The high probability of a clinically significant, sudden or life-threatening deterioration of the [respiratory, cardiovascular, oncological & neurologic] system(s) required my full and direct attention, intervention and personal management. The aggregate critical care time was [35] minutes without overlap. Time includes spent on; [x] Data Review and interpretation [x] Patient assessment and monitoring of vital signs [x] Documentation [x] Medication orders and management Subjective Date of service: 08/04/21 Principal diagnosis: Ac hypoxemic resp failure ; AE-COPD; H/O CA Breast; DM II; HTN Interval history: Patient is seen today for: Acute hypoxemic respiratory failure; AE-COPD; Possible hypercapnia; H/O CA Breast; DM II; HTN Seen and examined at bedside; 24hour events reviewed; nursing and respiratory care staff consulted; no adverse overnight events reported to me; resting in bed; remains on MVS; No SBTs today secondary to agitation. Remains on Fentanyl infusion and Midazolam Bronch results positive for malignancy Objective Vital Signs - 12hr 08/04/21 08/04/21 08/04/21 06:00 06:15 06:30 Temperature Pulse Rate 108 H 106 H 111 H Pulse Rate [ Anterior Bilateral] Respiratory 18 18 15 Rate Respiratory Rate [Anterior Bilateral] Blood Pressure 129/93 141/86 138/90 O2 Sat by Pulse 96 96 96 Oximetry 08/04/21 08/04/21 08/04/21 06:45 07:00 07:15 Temperature Pulse Rate 106 H 106 H 108 H Pulse Rate [ Anterior Bilateral] Respiratory 15 18 20 Rate Respiratory Rate [Anterior Bilateral] Blood Pressure 138/86 151/88 142/78 O2 Sat by Pulse 96 96 96 Oximetry 08/04/21 08/04/21 08/04/21 07:30 07:45 08:00 Temperature 99.2 F Pulse Rate 105 H 109 H 106 H Pulse Rate [ Anterior Bilateral] Respiratory 16 19 16 Rate Respiratory Rate [Anterior Bilateral] Blood Pressure 138/85 148/86 138/85 O2 Sat by Pulse 96 96 96 Oximetry 08/04/21 08/04/21 08/04/21 08:15 08:31 08:45 Temperature Pulse Rate 107 H 108 H 112 H Pulse Rate [ Anterior Bilateral] Respiratory 16 17 Rate Respiratory Rate [Anterior Bilateral] Blood Pressure 138/85 138/85 148/88 O2 Sat by Pulse 95 96 96 Oximetry 08/04/21 08/04/21 08/04/21 08:48 12:00 12:50 Temperature 99.1 F Pulse Rate 116 H Pulse Rate [ 112 H Anterior Bilateral] Respiratory Rate Respiratory 18 Rate [Anterior Bilateral] Blood Pressure 136/85 O2 Sat by Pulse 96 Oximetry 08/04/21 08/04/21 08/04/21 14:00 15:40 16:00 Temperature 99.3 F Pulse Rate 127 H Pulse Rate [ 125 H Anterior Bilateral] Respiratory Rate Respiratory 18 Rate [Anterior Bilateral] Blood Pressure 149/91 O2 Sat by Pulse 97 Oximetry Constitutional: no acute distress, other (eldely obese female with mildy increased respiratory effort at rest on MVS) Eyes: non-icteric ENT: oropharynx moist, other (ETT 24 cm [place]) Neck: supple, no lymphadenopathy, no JVD Effort: mildly labored Ascultation: Bilateral: diminished breath sounds, wheezes (central), rales, rhonchi, other (prolonged expiratory phase) Percussion: Bilateral: not dull Cardiovascular: regular rate and rhythm, other (S1,S2) Gastrointestinal: normoactive bowel sounds, soft, non-tender, non-distended Integumentary: normal Extremities: no cyanosis, no edema, pulses normal, no ischemia or petechiae Neurologic: normal mental status, non-focal exam, pupils equal and round Psychiatric: other (Sedated) CBC and BMP: 08/07/21 04:00 08/07/21 04:00 ABG, PT/INR, D-dimer: ABG ABG pH 7.321 (7.320-7.450) 08/04/21 04:00 POC ABG pCO2 54.3 mmHg (32.0-48.0) H 08/04/21 04:00 POC ABG pO2 82.2 mmHg (83-108) L 08/04/21 04:00 POC ABG HCO3 27.4 08/04/21 04:00 ABG O2 Saturation 95.2 (0-100) 08/04/21 04:00 PT/INR, D-dimer PT 14.0 Sec. (12.2-14.9) 08/03/21 08:30 INR 1.03 (0.87-1.13) 08/03/21 08:30 D-Dimer 852.47 ng/mlDDU (0-234) H 07/29/21 07:17 Abnormal lab findings: Abnormal Labs 07/27/21 07/27/21 07/27/21 22:57 22:57 22:57 WBC 20.3 H Hct RDW Lymph % (Auto) Lymph # (Auto) [place] # (Auto) Seg Neutrophils % Seg Neuts % (Manual) 89.0 H Lymphocytes % (Manual) 9.0 L Nucleated RBC % Seg Neutrophils # Seg Neutrophils # Man 18.1 H Lymphocytes # (Manual) Monocytes # (Manual) D-Dimer ABG pH POC ABG pCO2 POC ABG pO2 ABG Oxyhemoglobin ABG Sodium ABG Potassium ABG Glucose Carboxyhemoglobin Potassium 3.5 L Chloride 96.9 L Carbon Dioxide 20 L BUN 19 H Creatinine Glucose 204 H POC Glucose Lactic Acid 7.20 H* Magnesium AST 98 H ALT 90 H Arterial Blood Glucose Arterial Blood Ionized Calcium Urine WBC (Auto) Urine Creatinine 07/28/21 07/28/21 07/28/21 01:31 07:49 10:00 WBC Hct RDW Lymph % (Auto) Lymph # (Auto) [place] # (Auto) Seg Neutrophils % Seg Neuts % (Manual) Lymphocytes % (Manual) Nucleated RBC % Seg Neutrophils # Seg Neutrophils # Man Lymphocytes # (Manual) Monocytes # (Manual) D-Dimer ABG pH POC ABG pCO2 POC ABG pO2 ABG Oxyhemoglobin ABG Sodium ABG Potassium ABG Glucose Carboxyhemoglobin Potassium Chloride Carbon Dioxide BUN Creatinine Glucose POC Glucose 194 H Lactic Acid 6.90 H* 6.70 H* Magnesium AST ALT Arterial Blood Glucose Arterial Blood Ionized Calcium Urine WBC (Auto) Urine Creatinine 07/28/21 07/28/21 07/28/21 12:41 13:21 16:21 WBC Hct RDW Lymph % (Auto) Lymph # (Auto) [place] # (Auto) Seg Neutrophils % Seg Neuts % (Manual) Lymphocytes % (Manual) Nucleated RBC % Seg Neutrophils # Seg Neutrophils # Man Lymphocytes # (Manual) Monocytes # (Manual) D-Dimer ABG pH POC ABG pCO2 POC ABG pO2 ABG Oxyhemoglobin ABG Sodium ABG Potassium ABG Glucose Carboxyhemoglobin Potassium Chloride Carbon Dioxide BUN Creatinine Glucose POC Glucose 159 H 155 H Lactic Acid 6.10 H* Magnesium AST ALT Arterial Blood Glucose Arterial Blood Ionized Calcium Urine WBC (Auto) Urine Creatinine 07/28/21 07/29/21 07/29/21 22:03 04:44 04:44 WBC 17.0 H Hct RDW Lymph % (Auto) Lymph # (Auto) [place] # (Auto) Seg Neutrophils % Seg Neuts % (Manual) 82.0 H Lymphocytes % (Manual) 11.0 L Nucleated RBC % Seg Neutrophils # Seg Neutrophils # Man 13.9 H Lymphocytes # (Manual) Monocytes # (Manual) 1.0 H D-Dimer ABG pH POC ABG pCO2 POC ABG pO2 ABG Oxyhemoglobin ABG Sodium ABG Potassium ABG Glucose Carboxyhemoglobin Potassium Chloride Carbon Dioxide BUN 23 H Creatinine Glucose 196 H POC Glucose 187 H Lactic Acid Magnesium AST ALT Arterial Blood Glucose Arterial Blood Ionized Calcium Urine WBC (Auto) Urine Creatinine 07/29/21 07/29/21 07/29/21 06:56 07:17 07:17 WBC 26.1 H Hct 43.3 H RDW 16.0 H Lymph % (Auto) Lymph # (Auto) [place] # (Auto) Seg Neutrophils % Seg Neuts % (Manual) 80.0 H Lymphocytes % (Manual) Nucleated RBC % Seg Neutrophils # Seg Neutrophils # Man 20.9 H Lymphocytes # (Manual) Monocytes # (Manual) D-Dimer ABG pH POC ABG pCO2 POC ABG pO2 ABG Oxyhemoglobin ABG Sodium ABG Potassium ABG Glucose Carboxyhemoglobin Potassium Chloride Carbon Dioxide 20 L D BUN 23 H Creatinine Glucose 308 H POC Glucose 165 H Lactic Acid Magnesium AST ALT Arterial Blood Glucose Arterial Blood Ionized Calcium Urine WBC (Auto) Urine Creatinine 07/29/21 07/29/21 07/29/21 07:17 09:16 10:30 WBC Hct RDW Lymph % (Auto) Lymph # (Auto) [place] # (Auto) Seg Neutrophils % Seg Neuts % (Manual) Lymphocytes % (Manual) Nucleated RBC % Seg Neutrophils # Seg Neutrophils # Man Lymphocytes # (Manual) Monocytes # (Manual) D-Dimer 852.47 H ABG pH 7.236 L POC ABG pCO2 56.0 H POC ABG pO2 266.4 H ABG Oxyhemoglobin 99.1 H ABG Sodium 132.3 L ABG Potassium 4.9 H ABG Glucose 202 H Carboxyhemoglobin 0.2 L Potassium Chloride Carbon Dioxide BUN Creatinine Glucose POC Glucose 271 H Lactic Acid Magnesium AST ALT Arterial Blood Glucose 202 H Arterial Blood Ionized Calcium Urine WBC (Auto) Urine Creatinine 07/29/21 07/29/21 07/30/21 17:54 23:32 05:08 WBC Hct RDW Lymph % (Auto) Lymph # (Auto) [place] # (Auto) Seg Neutrophils % Seg Neuts % (Manual) Lymphocytes % (Manual) Nucleated RBC % Seg Neutrophils # Seg Neutrophils # Man Lymphocytes # (Manual) Monocytes # (Manual) D-Dimer ABG pH POC ABG pCO2 POC ABG pO2 ABG Oxyhemoglobin ABG Sodium ABG Potassium ABG Glucose Carboxyhemoglobin Potassium Chloride Carbon Dioxide BUN Creatinine Glucose POC Glucose 168 H 205 H 214 H Lactic Acid Magnesium AST ALT Arterial Blood Glucose Arterial Blood Ionized Calcium Urine WBC (Auto) Urine Creatinine 07/30/21 07/30/21 07/30/21 06:01 11:32 17:34 WBC Hct RDW Lymph % (Auto) Lymph # (Auto) [place] # (Auto) Seg Neutrophils % Seg Neuts % (Manual) Lymphocytes % (Manual) Nucleated RBC % Seg Neutrophils # Seg Neutrophils # Man Lymphocytes # (Manual) Monocytes # (Manual) D-Dimer ABG pH 7.480 H POC ABG pCO2 23.6 L POC ABG pO2 280.0 H ABG Oxyhemoglobin 99.3 H ABG Sodium 133.7 L ABG Potassium ABG Glucose 232 H Carboxyhemoglobin 0 L Potassium Chloride Carbon Dioxide BUN Creatinine Glucose POC Glucose 207 H 239 H Lactic Acid Magnesium AST ALT Arterial Blood Glucose 232 H Arterial Blood Ionized Calcium 4.4 L Urine WBC (Auto) Urine Creatinine 07/30/21 07/31/21 07/31/21 23:39 03:34 04:45 WBC 15.0 H Hct RDW 15.5 H Lymph % (Auto) Lymph # (Auto) [place] # (Auto) Seg Neutrophils % Seg Neuts % (Manual) 89.0 H Lymphocytes % (Manual) 7.0 L Nucleated RBC % Seg Neutrophils # Seg Neutrophils # Man 13.4 H Lymphocytes # (Manual) 1.1 L Monocytes # (Manual) D-Dimer ABG pH 7.481 H POC ABG pCO2 31.8 L POC ABG pO2 ABG Oxyhemoglobin ABG Sodium 135.2 L ABG Potassium 3.3 L ABG Glucose 188 H Carboxyhemoglobin 0.1 L Potassium Chloride Carbon Dioxide BUN Creatinine Glucose POC Glucose 176 H Lactic Acid Magnesium AST ALT Arterial Blood Glucose 188 H Arterial Blood Ionized Calcium 4.4 L Urine WBC (Auto) Urine Creatinine 07/31/21 07/31/21 07/31/21 04:45 04:45 11:28 WBC Hct RDW Lymph % (Auto) Lymph # (Auto) [place] # (Auto) Seg Neutrophils % Seg Neuts % (Manual) Lymphocytes % (Manual) Nucleated RBC % Seg Neutrophils # Seg Neutrophils # Man Lymphocytes # (Manual) Monocytes # (Manual) D-Dimer ABG pH POC ABG pCO2 POC ABG pO2 ABG Oxyhemoglobin ABG Sodium ABG Potassium ABG Glucose Carboxyhemoglobin Potassium 3.4 L Chloride Carbon Dioxide BUN 61 H Creatinine 2.6 H D Glucose 176 H POC Glucose 195 H 245 H Lactic Acid Magnesium AST ALT Arterial Blood Glucose Arterial Blood Ionized Calcium Urine WBC (Auto) Urine Creatinine 07/31/21 07/31/21 08/01/21 17:32 23:58 01:00 WBC Hct RDW Lymph % (Auto) Lymph # (Auto) [place] # (Auto) Seg Neutrophils % Seg Neuts % (Manual) Lymphocytes % (Manual) Nucleated RBC % Seg Neutrophils # Seg Neutrophils # Man Lymphocytes # (Manual) Monocytes # (Manual) D-Dimer ABG pH POC ABG pCO2 POC ABG pO2 ABG Oxyhemoglobin ABG Sodium ABG Potassium ABG Glucose 284 H Carboxyhemoglobin 0.3 L Potassium Chloride Carbon Dioxide BUN Creatinine Glucose POC Glucose 251 H 294 H Lactic Acid Magnesium AST ALT Arterial Blood Glucose 284 H Arterial Blood Ionized Calcium Urine WBC (Auto) Urine Creatinine 08/01/21 08/01/21 08/01/21 05:50 05:50 06:11 WBC 16.2 H Hct RDW 15.5 H Lymph % (Auto) Lymph # (Auto) [place] # (Auto) Seg Neutrophils % Seg Neuts % (Manual) 93.0 H Lymphocytes % (Manual) 2.0 L Nucleated RBC % 3.0 H Seg Neutrophils # Seg Neutrophils # Man 15.1 H Lymphocytes # (Manual) 0.3 L Monocytes # (Manual) D-Dimer ABG pH POC ABG pCO2 POC ABG pO2 ABG Oxyhemoglobin ABG Sodium ABG Potassium ABG Glucose Carboxyhemoglobin Potassium Chloride Carbon Dioxide BUN 64 H Creatinine 1.9 H Glucose 277 H POC Glucose 256 H Lactic Acid Magnesium AST ALT Arterial Blood Glucose Arterial Blood Ionized Calcium Urine WBC (Auto) Urine Creatinine 08/01/21 08/01/21 08/01/21 11:39 17:25 23:53 WBC Hct RDW Lymph % (Auto) Lymph # (Auto) [place] # (Auto) Seg Neutrophils % Seg Neuts % (Manual) Lymphocytes % (Manual) Nucleated RBC % Seg Neutrophils # Seg Neutrophils # Man Lymphocytes # (Manual) Monocytes # (Manual) D-Dimer ABG pH POC ABG pCO2 POC ABG pO2 ABG Oxyhemoglobin ABG Sodium ABG Potassium ABG Glucose Carboxyhemoglobin Potassium Chloride Carbon Dioxide BUN Creatinine Glucose POC Glucose 289 H 275 H 327 H Lactic Acid Magnesium AST ALT Arterial Blood Glucose Arterial Blood Ionized Calcium Urine WBC (Auto) Urine Creatinine 08/01/21 08/02/21 08/02/21 Unknown 04:00 12:03 WBC Hct RDW Lymph % (Auto) Lymph # (Auto) [place] # (Auto) Seg Neutrophils % Seg Neuts % (Manual) Lymphocytes % (Manual) Nucleated RBC % Seg Neutrophils # Seg Neutrophils # Man Lymphocytes # (Manual) Monocytes # (Manual) D-Dimer ABG pH POC ABG pCO2 POC ABG pO2 ABG Oxyhemoglobin ABG Sodium ABG Potassium ABG Glucose 325 H Carboxyhemoglobin 0.4 L Potassium Chloride Carbon Dioxide BUN Creatinine Glucose POC Glucose 209 H Lactic Acid Magnesium AST ALT Arterial Blood Glucose 325 H Arterial Blood Ionized Calcium Urine WBC (Auto) Urine Creatinine 125.6 H 08/02/21 08/02/21 08/02/21 15:30 17:03 23:17 WBC Hct RDW Lymph % (Auto) Lymph # (Auto) [place] # (Auto) Seg Neutrophils % Seg Neuts % (Manual) Lymphocytes % (Manual) Nucleated RBC % Seg Neutrophils # Seg Neutrophils # Man Lymphocytes # (Manual) Monocytes # (Manual) D-Dimer ABG pH POC ABG pCO2 POC ABG pO2 ABG Oxyhemoglobin ABG Sodium ABG Potassium ABG Glucose Carboxyhemoglobin Potassium Chloride Carbon Dioxide BUN Creatinine Glucose POC Glucose 210 H 265 H Lactic Acid Magnesium AST ALT Arterial Blood Glucose Arterial Blood Ionized Calcium Urine WBC (Auto) 47.0 H Urine Creatinine 08/02/21 08/02/21 08/03/21 Unknown Unknown 04:17 WBC 14.1 H Hct RDW 16.3 H Lymph % (Auto) 5.1 L Lymph # (Auto) 0.7 L [place] # (Auto) 0.9 H Seg Neutrophils % 88.7 H Seg Neuts % (Manual) Lymphocytes % (Manual) Nucleated RBC % Seg Neutrophils # 12.5 H Seg Neutrophils # Man Lymphocytes # (Manual) Monocytes # (Manual) D-Dimer ABG pH POC ABG pCO2 POC ABG pO2 ABG Oxyhemoglobin ABG Sodium ABG Potassium ABG Glucose Carboxyhemoglobin Potassium Chloride Carbon Dioxide BUN 72 H 72 H Creatinine 1.8 H 1.6 H Glucose 307 H 263 H POC Glucose Lactic Acid Magnesium AST ALT Arterial Blood Glucose Arterial Blood Ionized Calcium Urine WBC (Auto) Urine Creatinine 08/03/21 08/03/21 08/03/21 04:17 05:30 08:30 WBC 13.9 H Hct RDW 16.0 H Lymph % (Auto) Lymph # (Auto) [place] # (Auto) Seg Neutrophils % Seg Neuts % (Manual) Lymphocytes % (Manual) Nucleated RBC % Seg Neutrophils # Seg Neutrophils # Man Lymphocytes # (Manual) Monocytes # (Manual) D-Dimer ABG pH POC ABG pCO2 POC ABG pO2 ABG Oxyhemoglobin ABG Sodium ABG Potassium ABG Glucose Carboxyhemoglobin Potassium Chloride Carbon Dioxide BUN Creatinine Glucose POC Glucose 280 H Lactic Acid Magnesium 3.00 H AST ALT Arterial Blood Glucose Arterial Blood Ionized Calcium Urine WBC (Auto) Urine Creatinine 08/03/21 08/03/21 08/03/21 12:14 13:39 15:11 WBC Hct RDW Lymph % (Auto) Lymph # (Auto) [place] # (Auto) Seg Neutrophils % Seg Neuts % (Manual) Lymphocytes % (Manual) Nucleated RBC % Seg Neutrophils # Seg Neutrophils # Man Lymphocytes # (Manual) Monocytes # (Manual) D-Dimer ABG pH POC ABG pCO2 POC ABG pO2 ABG Oxyhemoglobin ABG Sodium ABG Potassium ABG Glucose 306 H Carboxyhemoglobin 0.3 L Potassium Chloride Carbon Dioxide BUN Creatinine Glucose POC Glucose 287 H Lactic Acid 2.10 H* Magnesium AST ALT Arterial Blood Glucose 306 H Arterial Blood Ionized Calcium Urine WBC (Auto) Urine Creatinine 08/03/21 08/03/21 08/04/21 16:52 23:08 04:00 WBC Hct RDW Lymph % (Auto) Lymph # (Auto) [place] # (Auto) Seg Neutrophils % Seg Neuts % (Manual) Lymphocytes % (Manual) Nucleated RBC % Seg Neutrophils # Seg Neutrophils # Man Lymphocytes # (Manual) Monocytes # (Manual) D-Dimer ABG pH POC ABG pCO2 54.3 H POC ABG pO2 82.2 L ABG Oxyhemoglobin ABG Sodium 145.1 H ABG Potassium 5.0 H ABG Glucose 316 H Carboxyhemoglobin 0.3 L Potassium Chloride Carbon Dioxide BUN Creatinine Glucose POC Glucose 282 H 289 H Lactic Acid Magnesium AST ALT Arterial Blood Glucose 316 H Arterial Blood Ionized Calcium Urine WBC (Auto) Urine Creatinine 08/04/21 08/04/21 08/04/21 04:38 04:38 05:19 WBC 17.7 H Hct RDW 16.5 H Lymph % (Auto) Lymph # (Auto) [place] # (Auto) Seg Neutrophils % Seg Neuts % (Manual) Lymphocytes % (Manual) Nucleated RBC % Seg Neutrophils # Seg Neutrophils # Man Lymphocytes # (Manual) Monocytes # (Manual) D-Dimer ABG pH POC ABG pCO2 POC ABG pO2 ABG Oxyhemoglobin ABG Sodium ABG Potassium ABG Glucose Carboxyhemoglobin Potassium Chloride 108.3 H Carbon Dioxide BUN 76 H Creatinine 1.4 H Glucose 310 H POC Glucose 268 H Lactic Acid Magnesium 2.70 H AST ALT Arterial Blood Glucose Arterial Blood Ionized Calcium Urine WBC (Auto) Urine Creatinine 08/04/21 08/04/21 11:48 16:41 WBC Hct RDW Lymph % (Auto) Lymph # (Auto) [place] # (Auto) Seg Neutrophils % Seg Neuts % (Manual) Lymphocytes % (Manual) Nucleated RBC % Seg Neutrophils # Seg Neutrophils # Man Lymphocytes # (Manual) Monocytes # (Manual) D-Dimer ABG pH POC ABG pCO2 POC ABG pO2 ABG Oxyhemoglobin ABG Sodium ABG Potassium ABG Glucose Carboxyhemoglobin Potassium Chloride Carbon Dioxide BUN Creatinine Glucose POC Glucose 197 H 208 H Lactic Acid Magnesium AST ALT Arterial Blood Glucose Arterial Blood Ionized Calcium Urine WBC (Auto) Urine Creatinine Chest x-ray: image reviewed Allied health notes reviewed: RT
[2021-08-04] MEDS: INSULIN GLARGINE 100 UNITS/ML SUB-Q SCH (21:52)
[2021-08-05] MEDS: INSULIN LISPRO 100 UNIT/ML SUB-Q SCH ×4 (00:44→17:51)
[2021-08-05] MEDS: SODIUM CHLORIDE 0.45% 1000 ML 1,000 ML IV SCH ×2 (01:43→17:51)
[2021-08-05] MEDS: fentaNYL DRIP Premix 2,000 MCG/100 ML BAG IV SCH ×4 (01:43→21:41)
--- NOTE | 2021-08-05 01:48 | Hem/Onc Progress Note ---
Subjective Interval history: TELEVISIT HEME NOTE CPT: 90875 Dx: LLE DVT 66yo woman with h/o breast cancer, now with metastatic cancer affecting lungs and LN eval at [facility] ER for SOB, imaging found to have mediastinal LA and RUL mass- L leg prox DVT found-->lovenox daily bronchoscopy biopsy-->carcinoma c/w breast primary, more stains pending still on vent--more vent support required today DATA REVIEWED BELOW CEA low IMP: h/o breast cancer (details unavailable) now with metastatic cancer affecting lung and LN L leg prox DVT not a good candidate for chemotherapy REC: cont steroids lovenox "full dose" 100mg daily end of life discussion may be appropriate Active Medications Enoxaparin Sodium (Enoxaparin 100 Mg/1 Ml Inj) 100 mg SUB-Q Q24H DEMIAN; Protocol Last Admin: 08/04/21 09:59 Dose: 100 mg Documented by: Fentanyl (Fentanyl 100 Mcg/2 Ml Inj) 50 mcg IV Q10MIN PRN PRN Reason: ANALGESIA Last Admin: 08/04/21 09:05 Dose: 50 mcg Documented by: Cefepime HCl (Cefepime/Ns 2 Gm/100 Ml) 2 gm in 100 mls @ 200 mls/hr IV Q12H DEMIAN; Protocol Stop: 08/07/21 22:29 Last Admin: 08/04/21 21:56 Dose: 200 mls/hr Documented by: Methylprednisolone Sodium Succinate (Methylprednisolone Sod Succinate 40 Mg/1 Ml Inj) 40 mg IV Q24HR DEMIAN Stop: 08/05/21 10:01 Laboratory Last Values WBC 17.7 K/mm3 (4.5-11.0) H 08/04/21 04:38 Hgb 11.8 gm/dl (10.1-14.3) 08/04/21 04:38 Hct 35.7 % (30.3-42.9) 08/04/21 04:38 Plt Count 265 K/mm3 (140-440) 08/04/21 04:38 Creatinine 1.4 mg/dL (0.6-1.2) H 08/04/21 04:38 AFB Identification Negative 08/02/21 14:30 Objective - Constitutional Vitals: Last Vital Signs Temp 98.6 F 08/04/21 20:00 Pulse 130 H 08/04/21 23:47 Resp 16 08/04/21 20:01 BP 138/78 08/04/21 23:47 Pulse Ox 97 08/04/21 23:47 - Labs Lab Results: Laboratory Results - last 24 hr 08/04/21 08/04/21 08/04/21 04:00 04:38 04:38 WBC 17.7 H RBC 4.02 Hgb 11.8 Hct 35.7 MCV 89 MCH 29 MCHC 33 RDW 16.5 H Plt Count 265 ABG pH 7.321 POC ABG pCO2 54.3 H POC ABG pO2 82.2 L POC ABG HCO3 27.4 ABG O2 Saturation 95.2 POC ABG Base Excess 0.5 ABG Hemoglobin 12.6 ABG Oxyhemoglobin 94.6 ABG Methemoglobin 0.3 ABG Sodium 145.1 H ABG Potassium 5.0 H ABG Chloride 107.0 ABG Glucose 316 H Carboxyhemoglobin 0.3 L FiO2 % 30.0 Sodium 145 Potassium 5.0 Chloride 108.3 H Carbon Dioxide 27 Anion Gap 15 BUN 76 H Creatinine 1.4 H Estimated GFR 46 BUN/Creatinine Ratio 54 Glucose 310 H POC Glucose Calcium 8.7 Phosphorus 3.90 Magnesium 2.70 H Arterial Blood Glucose 316 H Arterial Blood Ionized Calcium 4.7 08/04/21 08/04/21 08/04/21 05:19 11:48 16:41 WBC RBC Hgb Hct MCV MCH MCHC RDW Plt Count ABG pH POC ABG pCO2 POC ABG pO2 POC ABG HCO3 ABG O2 Saturation POC ABG Base Excess ABG Hemoglobin ABG Oxyhemoglobin ABG Methemoglobin ABG Sodium ABG Potassium ABG Chloride ABG Glucose Carboxyhemoglobin FiO2 % Sodium Potassium Chloride Carbon Dioxide Anion Gap BUN Creatinine Estimated GFR BUN/Creatinine Ratio Glucose POC Glucose 268 H 197 H 208 H Calcium Phosphorus Magnesium Arterial Blood Glucose Arterial Blood Ionized Calcium 08/04/21 23:49 WBC RBC Hgb Hct MCV MCH MCHC RDW Plt Count ABG pH POC ABG pCO2 POC ABG pO2 POC ABG HCO3 ABG O2 Saturation POC ABG Base Excess ABG Hemoglobin ABG Oxyhemoglobin ABG Methemoglobin ABG Sodium ABG Potassium ABG Chloride ABG Glucose Carboxyhemoglobin FiO2 % Sodium Potassium Chloride Carbon Dioxide Anion Gap BUN Creatinine Estimated GFR BUN/Creatinine Ratio Glucose POC Glucose 209 H Calcium Phosphorus Magnesium Arterial Blood Glucose Arterial Blood Ionized Calcium Medications & Allergies - Medications Allergies/Adverse Reactions: Allergies No Known Allergies Allergy (Verified 12/24/18 11:45) Home Medications: Home Medications Medication Instructions Recorded Confirmed Last Taken Type traMADoL [Ultram 50 MG tab] 50 mg PO Q6HR PRN #15 tablet 01/25/18 Unknown Rx Active Medications: Generic Name Dose Route Start Last Admin Trade Name Freq PRN Reason Stop Dose Admin Acetaminophen 650 mg 07/28/21 02:11 Acetaminophen 325 Mg Tab PO Q6H PRN Pain MILD(1-3)/Fever >100.5/GARCIA Albuterol/Ipratropium 1 ampul 07/28/21 14:00 08/04/21 19:56 Ipratropium/Albuterol Sulfate 3 Ml Ampul.Neb IH 1 ampul TID DEMIAN Administration Lipase/Protease/Amylase 1 each 07/29/21 13:01 Lipase 10,500/Protease 25,000/Amylase 43,750 (Units) Dr Campoverde FEEDTUBE PRN PRN For Clogged Feeding Tube Arformoterol Tartrate 15 mcg 07/28/21 20:00 08/04/21 19:56 Arformoterol 15 Mcg/2 Ml Nebu IH 15 mcg Q12HRT DEMIAN Administration Budesonide 0.5 mg 07/28/21 20:00 08/04/21 19:56 Budesonide 0.5 Mg/2 Ml Nebu IH 0.5 mg Q12HRT DEMIAN Administration Dextrose 50 ml 07/28/21 02:11 Dextrose 50% In Water (25gm) 50 Ml Syringe IV Q30MIN PRN Hypoglycemia Protocol Enoxaparin Sodium 100 mg 08/02/21 10:00 08/04/21 09:59 Enoxaparin 100 Mg/1 Ml Inj SUB-Q 100 mg Q24H DEMIAN Administration Protocol Famotidine 10 mg 08/02/21 10:00 08/04/21 21:28 Famotidine 20 Mg/2 Ml Inj IV 10 mg BID DEMIAN Administration Fentanyl 50 mcg 07/29/21 10:42 08/04/21 09:05 Fentanyl 100 Mcg/2 Ml Inj IV 50 mcg Q10MIN PRN Administration ANALGESIA Hydralazine HCl 10 mg 07/30/21 14:52 08/03/21 17:31 Hydralazine 20 Mg/1 Ml Inj IV 10 mg Q6H PRN Administration SBP > 165 Hydrophilic Ointment 1 applic 07/29/21 10:42 Lip Therapy Vaseline TP Q2HR PRN Dry Lips Fentanyl Citrate 2,000 mcg in 100 mls @ 5.35 mls/hr 07/29/21 11:00 08/04/21 21:26 Fentanyl Drip Premix IV 4 mcg/kg/hr TITR DEMIAN 21.4 mls/hr Administration Protocol 1 MCG/KG/HR Midazolam HCl 100 mg/ Sodium 100 mls @ 2 mls/hr 07/29/21 11:00 08/03/21 05:41 Chloride IV 0 mg/hr TITR DEMIAN 0 mls/hr Titration Protocol 2 MG/HR Norepinephrine 4 mg in 250 mls @ 7.5 mls/hr 07/29/21 21:00 Levophed Drip 4 Mg/Ns 250 Ml IV TITR DEMIAN Protocol 2 MCG/MIN Cefepime HCl 2 gm in 100 mls @ 200 mls/hr 08/02/21 10:00 08/04/21 21:56 Cefepime/Ns 2 Gm/100 Ml IV 08/07/21 22:29 200 mls/hr Q12H DEMIAN Administration Protocol Sodium Chloride 1,000 mls @ 50 mls/hr 08/02/21 12:15 Nacl 0.9% 1000 Ml IV DIRECT DEMIAN Sodium Chloride 1,000 mls @ 75 mls/hr 08/03/21 10:00 08/04/21 12:50 Nacl 0.45% 1000 Ml IV 75 mls/hr DIRECT DEMIAN Administration Insulin Glargine 20 units 08/03/21 22:00 08/04/21 21:52 Insulin Glargine 100 Units/Ml SUB-Q 20 units QHS DEMIAN Administration Insulin Human Lispro 0 unit 07/29/21 12:00 08/04/21 17:40 Insulin Lispro 100 Unit/Ml SUB-Q 4 unit Q6HR DEMIAN Administration Protocol Magnesium Hydroxide 30 ml 07/28/21 02:11 Magnesium Hydroxide (Mom) Oral Liqd Udc PO Q4H PRN Constipation Methylprednisolone Sodium Succinate 40 mg 08/05/21 10:00 Methylprednisolone Sod Succinate 40 Mg/1 Ml Inj IV 08/05/21 10:01 Q24HR DEMIAN Midazolam HCl 2 mg 07/29/21 10:42 Midazolam 2 Mg/2 Ml Inj IV Q10MIN PRN Sedation Multi-Ingred Cream/Lotion/Oil/Oint 1 applic 07/29/21 10:42 Mineral Oil/Petrolatum, White Ophth Oint 3.5 Gm OU Q4HR PRN Dry Eye(s) Ondansetron HCl 4 mg 07/28/21 02:11 Ondansetron 4 Mg/2 Ml Inj IV Q8H PRN Nausea And Vomiting Quetiapine Fumarate 100 mg 08/03/21 22:00 08/04/21 21:56 Quetiapine 100 Mg Tab PO 100 mg BID DEMIAN Administration Senna/Docusate Sodium 1 tab 07/29/21 22:00 08/04/21 21:28 Sennosides/Docusate Sodium 8.6/50 Mg Tab FEEDTUBE 1 tab BID DEMIAN Administration Simple Syrup 15 ml 07/29/21 13:01 Simple Syrup 15 Ml FEEDTUBE PRN PRN Hypoglycemia Simple Syrup 30 ml 07/29/21 13:01 Simple Syrup 15 Ml FEEDTUBE PRN PRN Hypoglycemia Sodium Bicarbonate 325 mg 07/29/21 13:01 Sodium Bicarbonate 325 Mg Tab FEEDTUBE PRN PRN For Clogged Feeding Tube Sodium Chloride 10 ml 07/28/21 10:00 08/04/21 21:47 Sodium Chloride 0.9% 10 Ml Flush Syringe IV 10 ml BID DEMIAN Administration Sodium Chloride 10 ml 07/28/21 02:05 Sodium Chloride 0.9% 10 Ml Flush Syringe IV PRN PRN LINE FLUSH
[2021-08-05 05:31] LABS: Hemoglobin 11.5 gm/dl (10.1-14.3); Mean Corpuscular HGB Conc 33 % (30-34); Mean Corpuscular Volume 90 fl (79-97); Platelet Count 237 K/mm3 (140-440); Red Blood Count 3.91 M/mm3 (3.65-5.03)
[2021-08-05 05:59] LABS: Calcium 8.4 mg/dL (8.4-10.2)
[2021-08-05 06:42] LABS: Band Neutrophils # (Manual) 1.5 K/mm3; Myelocytes # (Manual) 0.6 K/mm3; Total Cells Counted 100
[2021-08-05 06:44] LABS: Ovalocytes Few; Platelet Estimate Consistent w Auto
[2021-08-05] MEDS: MIDAZOLAM 2 MG/2 ML INJ IV PRN ×2 (07:40→09:19)
[2021-08-05] MEDS ORDERED: SODIUM POLYSTYRENE 15 GM/60 ML ORAL LIQD PO ONE ×2 (07:58→09:00)
[2021-08-05] MEDS: ARFORMOTEROL 15 MCG/2 ML NEBU IH SCH ×2 (08:31→20:29)
[2021-08-05] MEDS: BUDESONIDE 0.5 MG/2 ML NEBU IH SCH ×2 (08:31→20:28)
[2021-08-05] MEDS: IPRATROPIUM/ALBUTEROL SULFATE 3 ML AMPUL.NEB IH SCH ×3 (08:31→20:29)
[2021-08-05] MEDS: FAMOTIDINE 20 MG/2 ML INJ IV SCH ×2 (09:14→21:40)
[2021-08-05] MEDS: SENNOSIDES/DOCUSATE SODIUM 8.6/50 MG TAB FEEDTUBE SCH ×2 (09:18→21:40)
[2021-08-05] MEDS: QUEtiapine 100 MG TAB PO SCH (09:18)
[2021-08-05] MEDS: ENOXAPARIN 100 MG/1 ML INJ SUB-Q SCH (09:27)
[2021-08-05] MEDS: CEFEPIME/NS 2 GM/100 ML 2 GM/100 ML BAG IV SCH ×2 (09:27→21:38)
[2021-08-05] MEDS: MIDAZOLAM 100 MG in SODIUM CHLORIDE 0.9% 80 ML IV SCH (09:32)
[2021-08-05] MEDS ORDERED: methylPREDNISolone Sod Succinate 40 MG/1 ML INJ IV SCH (10:00)
[2021-08-05] MEDS ORDERED: QUEtiapine 100 MG TAB PO ONE (12:00)
--- NOTE | 2021-08-05 14:11 | Progress Note ---
Assessment and Plan Cultures: Blood culture no growth so far Sputum culture no growth so far A/P: 66-year-old female past medical history metastatic breast cancer, hypertension, diabetes, COPD now with: #Acute sepsis: With fevers and leukocytosis. Sepsis has been up and down in the setting of recent CODE BLUE. #Acute hypoxic respiratory failure: Currently on the vent. In the setting of pneumonia and metastatic breast cancer to the lungs #Metastatic breast cancer #WYATT: Renally dose medications. Recs: -Continue cefepime, planned 8 days -Trend white count, fevers -Bulk of issues likely secondary to metastatic cancer. Agree with potential end of life discussions. Poor prognosis Thank you for the consult, we will continue to follow. Juan Johnson MD [facility] ([facility]) O: [phone] F: [phone] Subjective Date of service: 08/05/21 Principal diagnosis: Ac hypoxemic resp failure ; AE-COPD; H/O CA Breast; DM II; HTN Interval history: Afebrile, white count elevated at 19. Remains on the vent. Objective - Exam Narrative Exam: Physical Exam: Constitutional: Intubated, sedated Head, Ears, Nose: Normocephalic, atraumatic. External ears, nose normal Eyes: Conjunctivae/corneas clear. No icterus. No ptosis. Neck: ETT Oral: ETT Cardiovascular: S1, S2 normal. Respiratory: Good air entry, clear to auscultation bilaterally GI: Soft, non-tender; bowel sounds normal. No peritoneal signs. Musculoskeletal: No pedal edema, no cyanosis. Skin: No rash or abscess Hem/Lymphatic: No palpable cervical or supraclavicular nodes. No lymphangitis Psych: Sedated Neurological: Sedated - Constitutional Vitals: Vital Signs Temp Pulse Resp BP Pulse Ox 99.1 F 106 H 16 134/101 97 08/05/21 12:00 08/05/21 13:34 08/05/21 13:34 08/05/21 08:27 08/05/21 11:39 Temperature -Last 24 Hours Temperature 99.1 F Temperature 99.3 F Temperature 98.2 F Temperature 98.7 F Temperature 98.6 F Temperature 99.3 F - Labs CBC & Chem 7: 08/05/21 04:50 08/05/21 04:50 Labs: Abnormal lab results 08/04/21 08/04/21 08/05/21 Range/Units 16:41 23:49 04:00 WBC (4.5-11.0) K/mm3 RDW (13.2-15.2) % Seg Neuts % (Manual) (40.0-70.0) % Lymphocytes % (Manual) (13.4-35.0) % Seg Neutrophils # Man (1.8-7.7) K/mm3 Lymphocytes # (Manual) (1.2-5.4) K/mm3 Monocytes # (Manual) (0.0-0.8) K/mm3 ABG pH 7.314 L (7.320-7.450) POC ABG pCO2 48.9 H (32.0-48.0) mmHg ABG Potassium 5.0 H (3.40-4.50) mmol/L ABG Chloride 109.0 H (98-107) mmol/L ABG Glucose 234 H (65-95) mg/dL Carboxyhemoglobin 0.4 L (0.5-1.5) Potassium (3.6-5.0) mmol/L Chloride (98-107) mmol/L BUN (7-17) mg/dL Creatinine (0.6-1.2) mg/dL Glucose (65-100) mg/dL POC Glucose 208 H 209 H (70-105) mg/dL Magnesium (1.7-2.3) mg/dL Arterial Blood Glucose 234 H (65-95) mg/dL 08/05/21 08/05/21 08/05/21 Range/Units 04:50 04:50 06:05 WBC 19.0 H (4.5-11.0) K/mm3 RDW 17.0 H (13.2-15.2) % Seg Neuts % (Manual) 75.0 H (40.0-70.0) % Lymphocytes % (Manual) 2.0 L (13.4-35.0) % Seg Neutrophils # Man 14.3 H (1.8-7.7) K/mm3 Lymphocytes # (Manual) 0.4 L (1.2-5.4) K/mm3 Monocytes # (Manual) 1.0 H (0.0-0.8) K/mm3 ABG pH (7.320-7.450) POC ABG pCO2 (32.0-48.0) mmHg ABG Potassium (3.40-4.50) mmol/L ABG Chloride (98-107) mmol/L ABG Glucose (65-95) mg/dL Carboxyhemoglobin (0.5-1.5) Potassium 5.2 H (3.6-5.0) mmol/L Chloride 110.0 H (98-107) mmol/L BUN 90 H (7-17) mg/dL Creatinine 1.8 H (0.6-1.2) mg/dL Glucose 235 H (65-100) mg/dL POC Glucose 225 H (70-105) mg/dL Magnesium 2.60 H (1.7-2.3) mg/dL Arterial Blood Glucose (65-95) mg/dL 08/05/21 Range/Units 12:02 WBC (4.5-11.0) K/mm3 RDW (13.2-15.2) % Seg Neuts % (Manual) (40.0-70.0) % Lymphocytes % (Manual) (13.4-35.0) % Seg Neutrophils # Man (1.8-7.7) K/mm3 Lymphocytes # (Manual) (1.2-5.4) K/mm3 Monocytes # (Manual) (0.0-0.8) K/mm3 ABG pH (7.320-7.450) POC ABG pCO2 (32.0-48.0) mmHg ABG Potassium (3.40-4.50) mmol/L ABG Chloride (98-107) mmol/L ABG Glucose (65-95) mg/dL Carboxyhemoglobin (0.5-1.5) Potassium (3.6-5.0) mmol/L Chloride (98-107) mmol/L BUN (7-17) mg/dL Creatinine (0.6-1.2) mg/dL Glucose (65-100) mg/dL POC Glucose 193 H (70-105) mg/dL Magnesium (1.7-2.3) mg/dL Arterial Blood Glucose (65-95) mg/dL
--- NOTE | 2021-08-05 15:39 | Progress Note ---
Assessment and Plan Impression * Acute kidney injury * Respiratory failure * Pulmonary infiltrates * History of breast cancer. [place] to be metastatic with mediastinal and lung masses Recommendations * Acute kidney injury most likely prerenal. Fractional excretion of sodium is 0.13%. * Creatinine was improving 1.8->1.6->1.4, worsened to 1.8 this AM. Per report, may have had obstructive process which contributed to WYATT * currently on 1/2NS, continue gentle fluids for now * UA shows 1+ protein and large blood. Urine specific gravity is also high. * Follow-up results of renal ultrasound as well as vasculitis work-up, pending * Vent management as per ICU team * Patient is currently nonoliguric. Continue IV hydration * Avoid nephrotoxins * Monitor fluid status and electrolytes closely * No indication for renal replacement therapy at this time Subjective Date of service: 08/05/21 Principal diagnosis: Ac hypoxemic resp failure ; AE-COPD; H/O CA Breast; DM II; HTN Interval history: Patient remains on the ventilator. Currently on 30% FiO2. Elizabeth catheter in place, was repositioned this AM per report with ample urine output noted Objective - Exam Narrative Exam: General appearance: well-developed, well-nourished, intubated EENT: ATNC, PERRL Neck: no JVD, supple Respiratory: Present: coarse mechanical breath sounds Cardiology: regular, normal heart rate, S1S2, no murmurs Gastrointestinal: normal, normoactive bowel sounds Integumentary: other (No edema) - Vital Signs Vital signs: Vital Signs - 12hr 08/05/21 08/05/21 08/05/21 03:45 04:00 04:01 Temperature 98.2 F Pulse Rate 122 H 130 H 116 H Pulse Rate [ Anterior Bilateral] Respiratory 16 16 Rate Respiratory Rate [Anterior Bilateral] Blood Pressure 165/106 137/64 O2 Sat by Pulse 97 95 96 Oximetry 08/05/21 08/05/21 08/05/21 04:15 04:30 04:45 Temperature Pulse Rate 112 H 106 H 104 H Pulse Rate [ Anterior Bilateral] Respiratory 16 16 16 Rate Respiratory Rate [Anterior Bilateral] Blood Pressure 126/71 136/71 136/71 O2 Sat by Pulse 96 96 96 Oximetry 08/05/21 08/05/21 08/05/21 05:01 05:15 05:31 Temperature Pulse Rate 136 H 124 H 114 H Pulse Rate [ Anterior Bilateral] Respiratory 14 16 16 Rate Respiratory Rate [Anterior Bilateral] Blood Pressure 136/71 166/149 166/149 O2 Sat by Pulse 98 97 98 Oximetry 08/05/21 08/05/21 08/05/21 05:45 06:01 06:15 Temperature Pulse Rate 109 H 105 H 141 H Pulse Rate [ Anterior Bilateral] Respiratory 16 16 16 Rate Respiratory Rate [Anterior Bilateral] Blood Pressure 145/70 123/72 123/72 O2 Sat by Pulse 98 98 98 Oximetry 08/05/21 08/05/21 08/05/21 06:30 06:45 07:01 Temperature Pulse Rate 125 H 143 H 144 H Pulse Rate [ Anterior Bilateral] Respiratory 16 21 16 Rate Respiratory Rate [Anterior Bilateral] Blood Pressure 147/85 147/85 147/85 O2 Sat by Pulse 98 99 97 Oximetry 08/05/21 08/05/21 08/05/21 07:15 07:31 07:45 Temperature Pulse Rate 129 H 124 H 142 H Pulse Rate [ Anterior Bilateral] Respiratory 16 16 16 Rate Respiratory Rate [Anterior Bilateral] Blood Pressure 170/86 125/80 170/86 O2 Sat by Pulse 98 97 98 Oximetry 08/05/21 08/05/21 08/05/21 08:00 08:15 08:20 Temperature 99.3 F Pulse Rate 121 H 113 H Pulse Rate [ Anterior Bilateral] Respiratory 16 11 L Rate Respiratory Rate [Anterior Bilateral] Blood Pressure 134/101 134/101 O2 Sat by Pulse 96 97 96 Oximetry 08/05/21 08/05/21 08/05/21 08:27 08:31 08:45 Temperature Pulse Rate 113 H 118 H 105 H Pulse Rate [ Anterior Bilateral] Respiratory 16 16 Rate Respiratory Rate [Anterior Bilateral] Blood Pressure 134/101 134/101 134/101 O2 Sat by Pulse 97 98 100 Oximetry 08/05/21 08/05/21 08/05/21 08:48 09:01 09:15 Temperature Pulse Rate 113 H 130 H Pulse Rate [ 104 H Anterior Bilateral] Respiratory 15 16 Rate Respiratory 16 Rate [Anterior Bilateral] Blood Pressure 133/94 162/128 O2 Sat by Pulse 97 98 Oximetry 08/05/21 08/05/21 08/05/21 09:31 09:45 10:00 Temperature Pulse Rate 112 H 105 H 100 H Pulse Rate [ Anterior Bilateral] Respiratory 16 16 16 Rate Respiratory Rate [Anterior Bilateral] Blood Pressure 109/58 109/58 108/54 O2 Sat by Pulse 97 97 97 Oximetry 08/05/21 08/05/21 08/05/21 10:15 10:30 10:45 Temperature Pulse Rate 96 H 93 H 95 H Pulse Rate [ Anterior Bilateral] Respiratory 16 16 16 Rate Respiratory Rate [Anterior Bilateral] Blood Pressure 108/54 113/57 113/57 O2 Sat by Pulse 97 97 97 Oximetry 08/05/21 08/05/21 08/05/21 11:00 11:15 11:31 Temperature Pulse Rate 96 H 104 H 114 H Pulse Rate [ Anterior Bilateral] Respiratory 16 17 17 Rate Respiratory Rate [Anterior Bilateral] Blood Pressure 134/64 134/64 205/93 O2 Sat by Pulse 97 97 98 Oximetry 08/05/21 08/05/21 08/05/21 11:39 11:45 12:00 Temperature 99.1 F Pulse Rate 108 H 106 H 90 Pulse Rate [ Anterior Bilateral] Respiratory 16 Rate Respiratory Rate [Anterior Bilateral] Blood Pressure 205/93 O2 Sat by Pulse 97 97 Oximetry 08/05/21 08/05/21 08/05/21 12:01 12:15 12:31 Temperature Pulse Rate 97 H 93 H 95 H Pulse Rate [ Anterior Bilateral] Respiratory 16 16 16 Rate Respiratory Rate [Anterior Bilateral] Blood Pressure 205/93 205/93 126/59 O2 Sat by Pulse 98 98 98 Oximetry 08/05/21 08/05/21 08/05/21 12:45 13:01 13:15 Temperature Pulse Rate 91 H 89 94 H Pulse Rate [ Anterior Bilateral] Respiratory 16 16 16 Rate Respiratory Rate [Anterior Bilateral] Blood Pressure 126/59 118/61 118/61 O2 Sat by Pulse 98 98 99 Oximetry 08/05/21 08/05/21 08/05/21 13:30 13:34 13:45 Temperature Pulse Rate 91 H 90 Pulse Rate [ 106 H Anterior Bilateral] Respiratory 16 16 Rate Respiratory 16 Rate [Anterior Bilateral] Blood Pressure 125/62 125/62 O2 Sat by Pulse 98 97 Oximetry 08/05/21 08/05/21 08/05/21 14:01 14:15 14:30 Temperature Pulse Rate 91 H 94 H 92 H Pulse Rate [ Anterior Bilateral] Respiratory 16 16 16 Rate Respiratory Rate [Anterior Bilateral] Blood Pressure 115/60 115/60 116/57 O2 Sat by Pulse 98 97 97 Oximetry 08/05/21 08/05/21 14:45 15:20 Temperature Pulse Rate 91 H 89 Pulse Rate [ Anterior Bilateral] Respiratory 16 Rate Respiratory Rate [Anterior Bilateral] Blood Pressure 116/57 117/60 O2 Sat by Pulse 98 97 Oximetry - Lab 08/05/21 04:50 08/05/21 04:50 Most recent lab results ABG pH 7.314 (7.320-7.450) L 08/05/21 04:00 ABG O2 Saturation 96.1 (0-100) 08/05/21 04:00 Calcium 8.4 mg/dL (8.4-10.2) 08/05/21 04:50 Phosphorus 4.20 mg/dL (2.5-4.5) 08/05/21 04:50 Magnesium 2.60 mg/dL (1.7-2.3) H 08/05/21 04:50 Urine Creatinine 125.6 mg/dL (0.1-20.0) H 08/01/21 Unknown Urine Sodium 12 mmol/L 08/01/21 Unknown Medications & Allergies - Medications Allergies/Adverse Reactions: Allergies No Known Allergies Allergy (Verified 12/24/18 11:45) Home Medications: Home Medications Medication Instructions Recorded Confirmed Last Taken Type traMADoL [Ultram 50 MG tab] 50 mg PO Q6HR PRN #15 tablet 01/25/18 Unknown Rx Active Medications: Generic Name Dose Route Start Last Admin Trade Name Freq PRN Reason Stop Dose Admin Acetaminophen 650 mg 07/28/21 02:11 Acetaminophen 325 Mg Tab PO Q6H PRN Pain MILD(1-3)/Fever >100.5/GARCIA Albuterol/Ipratropium 1 ampul 07/28/21 14:00 08/05/21 13:18 Ipratropium/Albuterol Sulfate 3 Ml Ampul.Neb IH 1 ampul TID DEMIAN Administration Lipase/Protease/Amylase 1 each 07/29/21 13:01 Lipase 10,500/Protease 25,000/Amylase 43,750 (Units) Dr Gilles WRIGHTTUBE PRN PRN For Clogged Feeding Tube Arformoterol Tartrate 15 mcg 07/28/21 20:00 08/05/21 08:31 Arformoterol 15 Mcg/2 Ml Nebu IH 15 mcg Q12HRT DEMIAN Administration Budesonide 0.5 mg 07/28/21 20:00 08/05/21 08:31 Budesonide 0.5 Mg/2 Ml Nebu IH 0.5 mg Q12HRT DEMIAN Administration Dextrose 50 ml 07/28/21 02:11 Dextrose 50% In Water (25gm) 50 Ml Syringe IV Q30MIN PRN Hypoglycemia Protocol Enoxaparin Sodium 100 mg 08/02/21 10:00 08/05/21 09:27 Enoxaparin 100 Mg/1 Ml Inj SUB-Q 100 mg Q24H DEMIAN Administration Protocol Famotidine 10 mg 08/02/21 10:00 08/05/21 09:14 Famotidine 20 Mg/2 Ml Inj IV 10 mg BID DEMIAN Administration Fentanyl 50 mcg 07/29/21 10:42 08/04/21 09:05 Fentanyl 100 Mcg/2 Ml Inj IV 50 mcg Q10MIN PRN Administration ANALGESIA Hydralazine HCl 10 mg 07/30/21 14:52 08/03/21 17:31 Hydralazine 20 Mg/1 Ml Inj IV 10 mg Q6H PRN Administration SBP > 165 Hydrophilic Ointment 1 applic 07/29/21 10:42 Lip Therapy Vaseline TP Q2HR PRN Dry Lips Fentanyl Citrate 2,000 mcg in 100 mls @ 5.35 mls/hr 07/29/21 11:00 08/05/21 11:34 Fentanyl Drip Premix IV 4 mcg/kg/hr TITR DEMIAN 21.4 mls/hr Administration Protocol 1 MCG/KG/HR Midazolam HCl 100 mg/ Sodium 100 mls @ 2 mls/hr 07/29/21 11:00 08/05/21 11:36 Chloride IV 2 mg/hr TITR DEMIAN 2 mls/hr Titration Protocol 2 MG/HR Norepinephrine 4 mg in 250 mls @ 7.5 mls/hr 07/29/21 21:00 Levophed Drip 4 Mg/Ns 250 Ml IV TITR DEMIAN Protocol 2 MCG/MIN Cefepime HCl 2 gm in 100 mls @ 200 mls/hr 08/02/21 10:00 08/05/21 09:27 Cefepime/Ns 2 Gm/100 Ml IV 08/07/21 22:29 200 mls/hr Q12H DEMIAN Administration Protocol Sodium Chloride 1,000 mls @ 75 mls/hr 08/03/21 10:00 08/05/21 01:43 Nacl 0.45% 1000 Ml IV 75 mls/hr DIRECT DEMIAN Administration Insulin Glargine 30 units 08/05/21 22:00 Insulin Glargine 100 Units/Ml SUB-Q QHS DEMIAN Insulin Human Lispro 0 unit 07/29/21 12:00 08/05/21 13:11 Insulin Lispro 100 Unit/Ml SUB-Q 4 unit Q6HR DEMIAN Administration Protocol Magnesium Hydroxide 30 ml 07/28/21 02:11 Magnesium Hydroxide (Mom) Oral Liqd Udc PO Q4H PRN Constipation Midazolam HCl 2 mg 07/29/21 10:42 08/05/21 09:19 Midazolam 2 Mg/2 Ml Inj IV 2 mg Q10MIN PRN Administration Sedation Multi-Ingred Cream/Lotion/Oil/Oint 1 applic 07/29/21 10:42 Mineral Oil/Petrolatum, White Ophth Oint 3.5 Gm OU Q4HR PRN Dry Eye(s) Ondansetron HCl 4 mg 07/28/21 02:11 Ondansetron 4 Mg/2 Ml Inj IV Q8H PRN Nausea And Vomiting Quetiapine Fumarate 200 mg 08/05/21 22:00 Quetiapine 200 Mg Tab PO BID DEMIAN Senna/Docusate Sodium 1 tab 07/29/21 22:00 08/05/21 09:18 Sennosides/Docusate Sodium 8.6/50 Mg Tab FEEDTUBE 1 tab BID DEMIAN Administration Simple Syrup 15 ml 07/29/21 13:01 Simple Syrup 15 Ml FEEDTUBE PRN PRN Hypoglycemia Simple Syrup 30 ml 07/29/21 13:01 Simple Syrup 15 Ml FEEDTUBE PRN PRN Hypoglycemia Sodium Bicarbonate 325 mg 07/29/21 13:01 Sodium Bicarbonate 325 Mg Tab FEEDTUBE PRN PRN For Clogged Feeding Tube Sodium Chloride 10 ml 07/28/21 10:00 08/05/21 09:29 Sodium Chloride 0.9% 10 Ml Flush Syringe IV 10 ml BID DEMIAN Administration Sodium Chloride 10 ml 07/28/21 02:05 Sodium Chloride 0.9% 10 Ml Flush Syringe IV PRN PRN LINE FLUSH
--- NOTE | 2021-08-05 15:55 | Progress Note ---
Assessment and Plan Acute hypoxemic respiratory failure Lung Mass -metastatic breast cancer Acute COPD exacerbation History of right breast cancer Leukocytosis DM II Hypertension Hyperlipidemia Tobacco use disorder - continue daily SAT and SBT assessment as tolerated - continue to titrate supplemental oxygen to keep SpO2 88-90% - VAP bundle addressed, aspiration preacautions HOB >30 - continue lung protective strategies - continue bronchodilators (GLADIS & LABA) with pulmonary hygiene per RT - wean per pulmonary driven protocols otherwise - continue accuchecks with glycemic control per SSI (While critically ill target blood glucose of 140-180 mg/dL; avoid hypoglycemia) - sedation prn for target RASS -2 to -3 - avoid nephrotoxins, renally dose all medications - continue to avoid benzodiazepines, reduce the possibility of delirium - prn analgesia per CPOT score - Maintenance of sleep-wake cycle, avoid delirium - enteral nutritional support at goal rate as tolerated - Stress ulcer prophylaxis -VTE prophylaxis - PT/OT/ROM exercises - continue mobility per facility protocol, turning and off loading for pressure ulcer prevention - Monitor hemodynamics closely - continue other care per attending / other consultants - discharge planning ongoing concurrently COVID SPECIFIC INTERVENTIONS -Negative test CONDITION: CRITICAL PROGNOSIS: GUARDED CODE STATUS: FULL CODE I had extensive discussions with the patient's daughter Rosana Dias ( [phone]) and she expressed a desire to transfer her mother to [facility] where the patient's Oncologist is located. I explained that I am cautious re liberation from MVS- the patient has an obstruction that contributed to her respiratory distress and ultimate intubation. The airway obstruction needs to be addressed. I reached out to Dr. Wade [phone], and I am waiting her response. I also had conversation with her daughter re tracheostomy as the option fro safely getting her off MVS, adn then addressing her metastatic disease. She is ok with an elective tracheostomy The high probability of a clinically significant, sudden or life-threatening deterioration of the [respiratory, cardiovascular, oncological & neurologic] system(s) required my full and direct attention, intervention and personal management. The aggregate critical care time was [35] minutes without overlap. Time includes spent on; [x] Data Review and interpretation [x] Patient assessment and monitoring of vital signs [x] Documentation [x] Medication orders and management Subjective Date of service: 08/05/21 Principal diagnosis: Ac hypoxemic resp failure ; AE-COPD; H/O CA Breast; DM II; HTN Interval history: Patient is seen today for: Acute hypoxemic respiratory failure; AE-COPD; Possible hypercapnia; H/O CA Breast; DM II; HTN Seen and examined at bedside; 24hour events reviewed; nursing and respiratory care staff consulted; no adverse overnight events reported to me; resting in bed; remains on MVS; sedated. Bronch results positive for metastatic breast disease 08/05/2021 No adverse events overnight. No fevers, no chills, no vomiting. Patient had low urine output overnight and Elizabeth catheter was changed this a.m.2 L of output Hematology/oncology spoke to family who wishes for aggressive care. Extreme agitation when sedation is held MVS: AC-VC 16/450/+6/30% Objective Vital Signs - 12hr 08/05/21 08/05/21 08/05/21 04:00 04:01 04:15 Temperature 98.2 F Pulse Rate 130 H 116 H 112 H Pulse Rate [ Anterior Bilateral] Respiratory 16 16 Rate Respiratory Rate [Anterior Bilateral] Blood Pressure 137/64 126/71 O2 Sat by Pulse 95 96 96 Oximetry 08/05/21 08/05/21 08/05/21 04:30 04:45 05:01 Temperature Pulse Rate 106 H 104 H 136 H Pulse Rate [ Anterior Bilateral] Respiratory 16 16 14 Rate Respiratory Rate [Anterior Bilateral] Blood Pressure 136/71 136/71 136/71 O2 Sat by Pulse 96 96 98 Oximetry 08/05/21 08/05/21 08/05/21 05:15 05:31 05:45 Temperature Pulse Rate 124 H 114 H 109 H Pulse Rate [ Anterior Bilateral] Respiratory 16 16 16 Rate Respiratory Rate [Anterior Bilateral] Blood Pressure 166/149 166/149 145/70 O2 Sat by Pulse 97 98 98 Oximetry 08/05/21 08/05/21 08/05/21 06:01 06:15 06:30 Temperature Pulse Rate 105 H 141 H 125 H Pulse Rate [ Anterior Bilateral] Respiratory 16 16 16 Rate Respiratory Rate [Anterior Bilateral] Blood Pressure 123/72 123/72 147/85 O2 Sat by Pulse 98 98 98 Oximetry 08/05/21 08/05/21 08/05/21 06:45 07:01 07:15 Temperature Pulse Rate 143 H 144 H 129 H Pulse Rate [ Anterior Bilateral] Respiratory 21 16 16 Rate Respiratory Rate [Anterior Bilateral] Blood Pressure 147/85 147/85 170/86 O2 Sat by Pulse 99 97 98 Oximetry 08/05/21 08/05/21 08/05/21 07:31 07:45 08:00 Temperature 99.3 F Pulse Rate 124 H 142 H 121 H Pulse Rate [ Anterior Bilateral] Respiratory 16 16 16 Rate Respiratory Rate [Anterior Bilateral] Blood Pressure 125/80 170/86 134/101 O2 Sat by Pulse 97 98 96 Oximetry 08/05/21 08/05/21 08/05/21 08:15 08:20 08:27 Temperature Pulse Rate 113 H 113 H Pulse Rate [ Anterior Bilateral] Respiratory 11 L Rate Respiratory Rate [Anterior Bilateral] Blood Pressure 134/101 134/101 O2 Sat by Pulse 97 96 97 Oximetry 08/05/21 08/05/21 08/05/21 08:31 08:45 08:48 Temperature Pulse Rate 118 H 105 H Pulse Rate [ 104 H Anterior Bilateral] Respiratory 16 16 Rate Respiratory 16 Rate [Anterior Bilateral] Blood Pressure 134/101 134/101 O2 Sat by Pulse 98 100 Oximetry 08/05/21 08/05/21 08/05/21 09:01 09:15 09:31 Temperature Pulse Rate 113 H 130 H 112 H Pulse Rate [ Anterior Bilateral] Respiratory 15 16 16 Rate Respiratory Rate [Anterior Bilateral] Blood Pressure 133/94 162/128 109/58 O2 Sat by Pulse 97 98 97 Oximetry 08/05/21 08/05/21 08/05/21 09:45 10:00 10:15 Temperature Pulse Rate 105 H 100 H 96 H Pulse Rate [ Anterior Bilateral] Respiratory 16 16 16 Rate Respiratory Rate [Anterior Bilateral] Blood Pressure 109/58 108/54 108/54 O2 Sat by Pulse 97 97 97 Oximetry 08/05/21 08/05/21 08/05/21 10:30 10:45 11:00 Temperature Pulse Rate 93 H 95 H 96 H Pulse Rate [ Anterior Bilateral] Respiratory 16 16 16 Rate Respiratory Rate [Anterior Bilateral] Blood Pressure 113/57 113/57 134/64 O2 Sat by Pulse 97 97 97 Oximetry 08/05/21 08/05/21 08/05/21 11:15 11:31 11:39 Temperature Pulse Rate 104 H 114 H 108 H Pulse Rate [ Anterior Bilateral] Respiratory 17 17 Rate Respiratory Rate [Anterior Bilateral] Blood Pressure 134/64 205/93 O2 Sat by Pulse 97 98 97 Oximetry 08/05/21 08/05/2108/05/21 11:45 12:00 12:01 Temperature 99.1 F Pulse Rate 106 H 90 97 H Pulse Rate [ Anterior Bilateral] Respiratory 16 16 Rate Respiratory Rate [Anterior Bilateral] Blood Pressure 205/93 205/93 O2 Sat by Pulse 97 98 Oximetry 08/05/21 08/05/21 08/05/21 12:15 12:31 12:45 Temperature Pulse Rate 93 H 95 H 91 H Pulse Rate [ Anterior Bilateral] Respiratory 16 16 16 Rate Respiratory Rate [Anterior Bilateral] Blood Pressure 205/93 126/59 126/59 O2 Sat by Pulse 98 98 98 Oximetry 08/05/21 08/05/21 08/05/21 13:01 13:15 13:30 Temperature Pulse Rate 89 94 H 91 H Pulse Rate [ Anterior Bilateral] Respiratory 16 16 16 Rate Respiratory Rate [Anterior Bilateral] Blood Pressure 118/61 118/61 125/62 O2 Sat by Pulse 98 99 98 Oximetry 08/05/21 08/05/21 08/05/21 13:34 13:45 14:01 Temperature Pulse Rate 90 91 H Pulse Rate [ 106 H Anterior Bilateral] Respiratory 16 16 Rate Respiratory 16 Rate [Anterior Bilateral] Blood Pressure 125/62 115/60 O2 Sat by Pulse 97 98 Oximetry 08/05/21 08/05/21 08/05/21 14:15 14:30 14:45 Temperature Pulse Rate 94 H 92 H 91 H Pulse Rate [ Anterior Bilateral] Respiratory 16 16 16 Rate Respiratory Rate [Anterior Bilateral] Blood Pressure 115/60 116/57 116/57 O2 Sat by Pulse 97 97 98 Oximetry 08/05/21 08/05/21 15:20 15:29 Temperature Pulse Rate 89 Pulse Rate [ Anterior Bilateral] Respiratory Rate Respiratory Rate [Anterior Bilateral] Blood Pressure 117/60 O2 Sat by Pulse 97 98 Oximetry Constitutional: no acute distress, other (eldely obese female with mildy increased respiratory effort at rest on MVS) Eyes: non-icteric ENT: oropharynx moist, other (ETT 24 cm [place]) Neck: supple, no lymphadenopathy, no JVD Effort: mildly labored Ascultation: Bilateral: diminished breath sounds, wheezes (central), rhonchi, other (prolonged expiratory phase) Percussion: Bilateral: not dull Cardiovascular: regular rate and rhythm, other (S1,S2) Gastrointestinal: normoactive bowel sounds, soft, non-tender, non-distended Integumentary: normal Extremities: no cyanosis, no edema, pulses normal, no ischemia or petechiae Neurologic: normal mental status, non-focal exam, pupils equal and round, CN II- XII normal Psychiatric: other (sedated) CBC and BMP: 08/06/21 05:00 08/06/21 05:00 ABG, PT/INR, D-dimer: ABG ABG pH 7.314 (7.320-7.450) L 08/05/21 04:00 POC ABG pCO2 48.9 mmHg (32.0-48.0) H 08/05/21 04:00 POC ABG pO2 89.1 mmHg (83-108) 08/05/21 04:00 POC ABG HCO3 24.3 08/05/21 04:00 ABG O2 Saturation 96.1 (0-100) 08/05/21 04:00 PT/INR, D-dimer PT 14.0 Sec. (12.2-14.9) 08/03/21 08:30 INR 1.03 (0.87-1.13) 08/03/21 08:30 D-Dimer 852.47 ng/mlDDU (0-234) H 07/29/21 07:17 Abnormal lab findings: Abnormal Labs 07/27/21 07/27/21 07/27/21 22:57 22:57 22:57 WBC 20.3 H Hct RDW Lymph % (Auto) Lymph # (Auto) [place] # (Auto) Seg Neutrophils % Seg Neuts % (Manual) 89.0 H Lymphocytes % (Manual) 9.0 L Nucleated RBC % Seg Neutrophils # Seg Neutrophils # Man 18.1 H Lymphocytes # (Manual) Monocytes # (Manual) D-Dimer ABG pH POC ABG pCO2 POC ABG pO2 ABG Oxyhemoglobin ABG Sodium ABG Potassium ABG Chloride ABG Glucose Carboxyhemoglobin Potassium 3.5 L Chloride 96.9 L Carbon Dioxide 20 L BUN 19 H Creatinine Glucose 204 H POC Glucose Lactic Acid 7.20 H* Magnesium AST 98 H ALT 90 H Arterial Blood Glucose Arterial Blood Ionized Calcium Urine WBC (Auto) Urine Creatinine 07/28/21 07/28/21 07/28/21 01:31 07:49 10:00 WBC Hct RDW Lymph % (Auto) Lymph # (Auto) [place] # (Auto) Seg Neutrophils % Seg Neuts % (Manual) Lymphocytes % (Manual) Nucleated RBC % Seg Neutrophils # Seg Neutrophils # Man Lymphocytes # (Manual) Monocytes # (Manual) D-Dimer ABG pH POC ABG pCO2 POC ABG pO2 ABG Oxyhemoglobin ABG Sodium ABG Potassium ABG Chloride ABG Glucose Carboxyhemoglobin Potassium Chloride Carbon Dioxide BUN Creatinine Glucose POC Glucose 194 H Lactic Acid 6.90 H* 6.70 H* Magnesium AST ALT Arterial Blood Glucose Arterial Blood Ionized Calcium Urine WBC (Auto) Urine Creatinine 07/28/21 07/28/21 07/28/21 12:41 13:21 16:21 WBC Hct RDW Lymph % (Auto) Lymph # (Auto) [place] # (Auto) Seg Neutrophils % Seg Neuts % (Manual) Lymphocytes % (Manual) Nucleated RBC % Seg Neutrophils # Seg Neutrophils # Man Lymphocytes # (Manual) Monocytes # (Manual) D-Dimer ABG pH POC ABG pCO2 POC ABG pO2 ABG Oxyhemoglobin ABG Sodium ABG Potassium ABG Chloride ABG Glucose Carboxyhemoglobin Potassium Chloride Carbon Dioxide BUN Creatinine Glucose POC Glucose 159 H 155 H Lactic Acid 6.10 H* Magnesium AST ALT Arterial Blood Glucose Arterial Blood Ionized Calcium Urine WBC (Auto) Urine Creatinine 07/28/21 07/29/21 07/29/21 22:03 04:44 04:44 WBC 17.0 H Hct RDW Lymph % (Auto) Lymph # (Auto) [place] # (Auto) Seg Neutrophils % Seg Neuts % (Manual) 82.0 H Lymphocytes % (Manual) 11.0 L Nucleated RBC % Seg Neutrophils # Seg Neutrophils # Man 13.9 H Lymphocytes # (Manual) Monocytes # (Manual) 1.0 H D-Dimer ABG pH POC ABG pCO2 POC ABG pO2 ABG Oxyhemoglobin ABG Sodium ABG Potassium ABG Chloride ABG Glucose Carboxyhemoglobin Potassium Chloride Carbon Dioxide BUN 23 H Creatinine Glucose 196 H POC Glucose 187 H Lactic Acid Magnesium AST ALT Arterial Blood Glucose Arterial Blood Ionized Calcium Urine WBC (Auto) Urine Creatinine 07/29/21 07/29/21 07/29/21 06:56 07:17 07:17 WBC 26.1 H Hct 43.3 H RDW 16.0 H Lymph % (Auto) Lymph # (Auto) [place] # (Auto) Seg Neutrophils % Seg Neuts % (Manual) 80.0 H Lymphocytes % (Manual) Nucleated RBC % Seg Neutrophils # Seg Neutrophils # Man 20.9 H Lymphocytes # (Manual) Monocytes # (Manual) D-Dimer ABG pH POC ABG pCO2 POC ABG pO2 ABG Oxyhemoglobin ABG Sodium ABG Potassium ABG Chloride ABG Glucose Carboxyhemoglobin Potassium Chloride Carbon Dioxide 20 L D BUN 23 H Creatinine Glucose 308 H POC Glucose 165 H Lactic Acid Magnesium AST ALT Arterial Blood Glucose Arterial Blood Ionized Calcium Urine WBC (Auto) Urine Creatinine 07/29/21 07/29/21 07/29/21 07:17 09:16 10:30 WBC Hct RDW Lymph % (Auto) Lymph # (Auto) [place] # (Auto) Seg Neutrophils % Seg Neuts % (Manual) Lymphocytes % (Manual) Nucleated RBC % Seg Neutrophils # Seg Neutrophils # Man Lymphocytes # (Manual) Monocytes # (Manual) D-Dimer 852.47 H ABG pH 7.236 L POC ABG pCO2 56.0 H POC ABG pO2 266.4 H ABG Oxyhemoglobin 99.1 H ABG Sodium 132.3 L ABG Potassium 4.9 H ABG Chloride ABG Glucose 202 H Carboxyhemoglobin 0.2 L Potassium Chloride Carbon Dioxide BUN Creatinine Glucose POC Glucose 271 H Lactic Acid Magnesium AST ALT Arterial Blood Glucose 202 H Arterial Blood Ionized Calcium Urine WBC (Auto) Urine Creatinine 07/29/21 07/29/21 07/30/21 17:54 23:32 05:08 WBC Hct RDW Lymph % (Auto) Lymph # (Auto) [place] # (Auto) Seg Neutrophils % Seg Neuts % (Manual) Lymphocytes % (Manual) Nucleated RBC % Seg Neutrophils # Seg Neutrophils # Man Lymphocytes # (Manual) Monocytes # (Manual) D-Dimer ABG pH POC ABG pCO2 POC ABG pO2 ABG Oxyhemoglobin ABG Sodium ABG Potassium ABG Chloride ABG Glucose Carboxyhemoglobin Potassium Chloride Carbon Dioxide BUN Creatinine Glucose POC Glucose 168 H 205 H 214 H Lactic Acid Magnesium AST ALT Arterial Blood Glucose Arterial Blood Ionized Calcium Urine WBC (Auto) Urine Creatinine 07/30/21 07/30/21 07/30/21 06:01 11:32 17:34 WBC Hct RDW Lymph % (Auto) Lymph # (Auto) [place] # (Auto) Seg Neutrophils % Seg Neuts % (Manual) Lymphocytes % (Manual) Nucleated RBC % Seg Neutrophils # Seg Neutrophils # Man Lymphocytes # (Manual) Monocytes # (Manual) D-Dimer ABG pH 7.480 H POC ABG pCO2 23.6 L POC ABG pO2 280.0 H ABG Oxyhemoglobin 99.3 H ABG Sodium 133.7 L ABG Potassium ABG Chloride ABG Glucose 232 H Carboxyhemoglobin 0 L Potassium Chloride Carbon Dioxide BUN Creatinine Glucose POC Glucose 207 H 239 H Lactic Acid Magnesium AST ALT Arterial Blood Glucose 232 H Arterial Blood Ionized Calcium 4.4 L Urine WBC (Auto) Urine Creatinine 07/30/21 07/31/21 07/31/21 23:39 03:34 04:45 WBC 15.0 H Hct RDW 15.5 H Lymph % (Auto) Lymph # (Auto) [place] # (Auto) Seg Neutrophils % Seg Neuts % (Manual) 89.0 H Lymphocytes % (Manual) 7.0 L Nucleated RBC % Seg Neutrophils # Seg Neutrophils # Man 13.4 H Lymphocytes # (Manual) 1.1 L Monocytes # (Manual) D-Dimer ABG pH 7.481 H POC ABG pCO2 31.8 L POC ABG pO2 ABG Oxyhemoglobin ABG Sodium 135.2 L ABG Potassium 3.3 L ABG Chloride ABG Glucose 188 H Carboxyhemoglobin 0.1 L Potassium Chloride Carbon Dioxide BUN Creatinine Glucose POC Glucose 176 H Lactic Acid Magnesium AST ALT Arterial Blood Glucose 188 H Arterial Blood Ionized Calcium 4.4 L Urine WBC (Auto) Urine Creatinine 07/31/21 07/31/21 07/31/21 04:45 04:45 11:28 WBC Hct RDW Lymph % (Auto) Lymph # (Auto) [place] # (Auto) Seg Neutrophils % Seg Neuts % (Manual) Lymphocytes % (Manual) Nucleated RBC % Seg Neutrophils # Seg Neutrophils # Man Lymphocytes # (Manual) Monocytes # (Manual) D-Dimer ABG pH POC ABG pCO2 POC ABG pO2 ABG Oxyhemoglobin ABG Sodium ABG Potassium ABG Chloride ABG Glucose Carboxyhemoglobin Potassium 3.4 L Chloride Carbon Dioxide BUN 61 H Creatinine 2.6 H D Glucose 176 H POC Glucose 195 H 245 H Lactic Acid Magnesium AST ALT Arterial Blood Glucose Arterial Blood Ionized Calcium Urine WBC (Auto) Urine Creatinine 07/31/21 07/31/21 08/01/21 17:32 23:58 01:00 WBC Hct RDW Lymph % (Auto) Lymph # (Auto) [place] # (Auto) Seg Neutrophils % Seg Neuts % (Manual) Lymphocytes % (Manual) Nucleated RBC % Seg Neutrophils # Seg Neutrophils # Man Lymphocytes # (Manual) Monocytes # (Manual) D-Dimer ABG pH POC ABG pCO2 POC ABG pO2 ABG Oxyhemoglobin ABG Sodium ABG Potassium ABG Chloride ABG Glucose 284 H Carboxyhemoglobin 0.3 L Potassium Chloride Carbon Dioxide BUN Creatinine Glucose POC Glucose 251 H 294 H Lactic Acid Magnesium AST ALT Arterial Blood Glucose 284 H Arterial Blood Ionized Calcium Urine WBC (Auto) Urine Creatinine 08/01/21 08/01/21 08/01/21 05:50 05:50 06:11 WBC 16.2 H Hct RDW 15.5 H Lymph % (Auto) Lymph # (Auto) [place] # (Auto) Seg Neutrophils % Seg Neuts % (Manual) 93.0 H Lymphocytes % (Manual) 2.0 L Nucleated RBC % 3.0 H Seg Neutrophils # Seg Neutrophils # Man 15.1 H Lymphocytes # (Manual) 0.3 L Monocytes # (Manual) D-Dimer ABG pH POC ABG pCO2 POC ABG pO2 ABG Oxyhemoglobin ABG Sodium ABG Potassium ABG Chloride ABG Glucose Carboxyhemoglobin Potassium Chloride Carbon Dioxide BUN 64 H Creatinine 1.9 H Glucose 277 H POC Glucose 256 H Lactic Acid Magnesium AST ALT Arterial Blood Glucose Arterial Blood Ionized Calcium Urine WBC (Auto) Urine Creatinine 08/01/21 08/01/21 08/01/21 11:39 17:25 23:53 WBC Hct RDW Lymph % (Auto) Lymph # (Auto) [place] # (Auto) Seg Neutrophils % Seg Neuts % (Manual) Lymphocytes % (Manual) Nucleated RBC % Seg Neutrophils # Seg Neutrophils # Man Lymphocytes # (Manual) Monocytes # (Manual) D-Dimer ABG pH POC ABG pCO2 POC ABG pO2 ABG Oxyhemoglobin ABG Sodium ABG Potassium ABG Chloride ABG Glucose Carboxyhemoglobin Potassium Chloride Carbon Dioxide BUN Creatinine Glucose POC Glucose 289 H 275 H 327 H Lactic Acid Magnesium AST ALT Arterial Blood Glucose Arterial Blood Ionized Calcium Urine WBC (Auto) Urine Creatinine 08/01/21 08/02/21 08/02/21 Unknown 04:00 12:03 WBC Hct RDW Lymph % (Auto) Lymph # (Auto) [place] # (Auto) Seg Neutrophils % Seg Neuts % (Manual) Lymphocytes % (Manual) Nucleated RBC % Seg Neutrophils # Seg Neutrophils # Man Lymphocytes # (Manual) Monocytes # (Manual) D-Dimer ABG pH POC ABG pCO2 POC ABG pO2 ABG Oxyhemoglobin ABG Sodium ABG Potassium ABG Chloride ABG Glucose 325 H Carboxyhemoglobin 0.4 L Potassium Chloride Carbon Dioxide BUN Creatinine Glucose POC Glucose 209 H Lactic Acid Magnesium AST ALT Arterial Blood Glucose 325 H Arterial Blood Ionized Calcium Urine WBC (Auto) Urine Creatinine 125.6 H 08/02/21 08/02/21 08/02/21 15:30 17:03 23:17 WBC Hct RDW Lymph % (Auto) Lymph # (Auto) [place] # (Auto) Seg Neutrophils % Seg Neuts % (Manual) Lymphocytes % (Manual) Nucleated RBC % Seg Neutrophils # Seg Neutrophils # Man Lymphocytes # (Manual) Monocytes # (Manual) D-Dimer ABG pH POC ABG pCO2 POC ABG pO2 ABG Oxyhemoglobin ABG Sodium ABG Potassium ABG Chloride ABG Glucose Carboxyhemoglobin Potassium Chloride Carbon Dioxide BUN Creatinine Glucose POC Glucose 210 H 265 H Lactic Acid Magnesium AST ALT Arterial Blood Glucose Arterial Blood Ionized Calcium Urine WBC (Auto) 47.0 H Urine Creatinine 08/02/21 08/02/21 08/03/21 Unknown Unknown 04:17 WBC 14.1 H Hct RDW 16.3 H Lymph % (Auto) 5.1 L Lymph # (Auto) 0.7 L [place] # (Auto) 0.9 H Seg Neutrophils % 88.7 H Seg Neuts % (Manual) Lymphocytes % (Manual) Nucleated RBC % Seg Neutrophils # 12.5 H Seg Neutrophils # Man Lymphocytes # (Manual) Monocytes # (Manual) D-Dimer ABG pH POC ABG pCO2 POC ABG pO2 ABG Oxyhemoglobin ABG Sodium ABG Potassium ABG Chloride ABG Glucose Carboxyhemoglobin Potassium Chloride Carbon Dioxide BUN 72 H 72 H Creatinine 1.8 H 1.6 H Glucose 307 H 263 H POC Glucose Lactic Acid Magnesium AST ALT Arterial Blood Glucose Arterial Blood Ionized Calcium Urine WBC (Auto) Urine Creatinine 08/03/21 08/03/21 08/03/21 04:17 05:30 08:30 WBC 13.9 H Hct RDW 16.0 H Lymph % (Auto) Lymph # (Auto) [place] # (Auto) Seg Neutrophils % Seg Neuts % (Manual) Lymphocytes % (Manual) Nucleated RBC % Seg Neutrophils # Seg Neutrophils # Man Lymphocytes # (Manual) Monocytes # (Manual) D-Dimer ABG pH POC ABG pCO2 POC ABG pO2 ABG Oxyhemoglobin ABG Sodium ABG Potassium ABG Chloride ABG Glucose Carboxyhemoglobin Potassium Chloride Carbon Dioxide BUN Creatinine Glucose POC Glucose 280 H Lactic Acid Magnesium 3.00 H AST ALT Arterial Blood Glucose Arterial Blood Ionized Calcium Urine WBC (Auto) Urine Creatinine 08/03/21 08/03/21 08/03/21 12:14 13:39 15:11 WBC Hct RDW Lymph % (Auto) Lymph # (Auto) [place] # (Auto) Seg Neutrophils % Seg Neuts % (Manual) Lymphocytes % (Manual) Nucleated RBC % Seg Neutrophils # Seg Neutrophils # Man Lymphocytes # (Manual) Monocytes # (Manual) D-Dimer ABG pH POC ABG pCO2 POC ABG pO2 ABG Oxyhemoglobin ABG Sodium ABG Potassium ABG Chloride ABG Glucose 306 H Carboxyhemoglobin 0.3 L Potassium Chloride Carbon Dioxide BUN Creatinine Glucose POC Glucose 287 H Lactic Acid 2.10 H* Magnesium AST ALT Arterial Blood Glucose 306 H Arterial Blood Ionized Calcium Urine WBC (Auto) Urine Creatinine 08/03/21 08/03/21 08/04/21 16:52 23:08 04:00 WBC Hct RDW Lymph % (Auto) Lymph # (Auto) [place] # (Auto) Seg Neutrophils % Seg Neuts % (Manual) Lymphocytes % (Manual) Nucleated RBC % Seg Neutrophils # Seg Neutrophils # Man Lymphocytes # (Manual) Monocytes # (Manual) D-Dimer ABG pH POC ABG pCO2 54.3 H POC ABG pO2 82.2 L ABG Oxyhemoglobin ABG Sodium 145.1 H ABG Potassium 5.0 H ABG Chloride ABG Glucose 316 H Carboxyhemoglobin 0.3 L Potassium Chloride Carbon Dioxide BUN Creatinine Glucose POC Glucose 282 H 289 H Lactic Acid Magnesium AST ALT Arterial Blood Glucose 316 H Arterial Blood Ionized Calcium Urine WBC (Auto) Urine Creatinine 08/04/21 08/04/21 08/04/21 04:38 04:38 05:19 WBC 17.7 H Hct RDW 16.5 H Lymph % (Auto) Lymph # (Auto) [place] # (Auto) Seg Neutrophils % Seg Neuts % (Manual) Lymphocytes % (Manual) Nucleated RBC % Seg Neutrophils # Seg Neutrophils # Man Lymphocytes # (Manual) Monocytes # (Manual) D-Dimer ABG pH POC ABG pCO2 POC ABG pO2 ABG Oxyhemoglobin ABG Sodium ABG Potassium ABG Chloride ABG Glucose Carboxyhemoglobin Potassium Chloride 108.3 H Carbon Dioxide BUN 76 H Creatinine 1.4 H Glucose 310 H POC Glucose 268 H Lactic Acid Magnesium 2.70 H AST ALT Arterial Blood Glucose Arterial Blood Ionized Calcium Urine WBC (Auto) Urine Creatinine 08/04/21 08/04/21 08/04/21 11:48 16:41 23:49 WBC Hct RDW Lymph % (Auto) Lymph # (Auto) [place] # (Auto) Seg Neutrophils % Seg Neuts % (Manual) Lymphocytes % (Manual) Nucleated RBC % Seg Neutrophils # Seg Neutrophils # Man Lymphocytes # (Manual) Monocytes # (Manual) D-Dimer ABG pH POC ABG pCO2 POC ABG pO2 ABG Oxyhemoglobin ABG Sodium ABG Potassium ABG Chloride ABG Glucose Carboxyhemoglobin Potassium Chloride Carbon Dioxide BUN Creatinine Glucose POC Glucose 197 H 208 H 209 H Lactic Acid Magnesium AST ALT Arterial Blood Glucose Arterial Blood Ionized Calcium Urine WBC (Auto) Urine Creatinine 08/05/21 08/05/21 08/05/21 04:00 04:50 04:50 WBC 19.0 H Hct RDW 17.0 H Lymph % (Auto) Lymph # (Auto) [place] # (Auto) Seg Neutrophils % Seg Neuts % (Manual) 75.0 H Lymphocytes % (Manual) 2.0 L Nucleated RBC % Seg Neutrophils # Seg Neutrophils # Man 14.3 H Lymphocytes # (Manual) 0.4 L Monocytes # (Manual) 1.0 H D-Dimer ABG pH 7.314 L POC ABG pCO2 48.9 H POC ABG pO2 ABG Oxyhemoglobin ABG Sodium ABG Potassium 5.0 H ABG Chloride 109.0 H ABG Glucose 234 H Carboxyhemoglobin 0.4 L Potassium 5.2 H Chloride 110.0 H Carbon Dioxide BUN 90 H Creatinine 1.8 H Glucose 235 H POC Glucose Lactic Acid Magnesium 2.60 H AST ALT Arterial Blood Glucose 234 H Arterial Blood Ionized Calcium Urine WBC (Auto) Urine Creatinine 08/05/21 08/05/21 06:05 12:02 WBC Hct RDW Lymph % (Auto) Lymph # (Auto) [place] # (Auto) Seg Neutrophils % Seg Neuts % (Manual) Lymphocytes % (Manual) Nucleated RBC % Seg Neutrophils # Seg Neutrophils # Man Lymphocytes # (Manual) Monocytes # (Manual) D-Dimer ABG pH POC ABG pCO2 POC ABG pO2 ABG Oxyhemoglobin ABG Sodium ABG Potassium ABG Chloride ABG Glucose Carboxyhemoglobin Potassium Chloride Carbon Dioxide BUN Creatinine Glucose POC Glucose 225 H 193 H Lactic Acid Magnesium AST ALT Arterial Blood Glucose Arterial Blood Ionized Calcium Urine WBC (Auto) Urine Creatinine Chest x-ray: image reviewed Allied health notes reviewed: RT
--- NOTE | 2021-08-05 16:39 | Progress Note ---
<KIMMY REYES - Last Filed: 08/05/21 16:35> Assessment and Plan Assessment and plan: This is a 66-year-old female with HTN, DM, HLD and COPD admitted for acute hypoxic respiratory failure, COPD exacerbation, pneumonia and left lower leg DVT Neuro: Acute metabolic encephalopathy -Sedated with Versed and fentanyl -RASS goal 0 to -1 -Added Seroquel -Avoid delirium -Reorientation as needed -Bilateral restraints for safety Cardio: h/o HTN, s/p cardiac arrest, h/o HLD -Echocardiogram completed-> EF 50 to 55% with mild diastolic dysfunction -Blood pressure monitor per protocol -Patient had cardiac arrest on 07/29 and was intubated -Antihypertensives prn Respiratory: Acute hypoxic respiratory failure, COPD extubation -CCM consulted, appreciate recommendations -VAP bundle -Daily SBT and SAT trials -Patient became tachypneic with SBT trial today -A.m. vent settings: Assist control tidal volume 450, rate 16, FiO2 30%, 6 of PEEP -Intubated with 7.50 ETT at 22 at the lips on 07/29 -Daily ABG and CXR -Continue SPO2 monitoring -Solu-Medrol GI: MO -NTR consult for tube feeding -BR: Senokot -24-hour net + [id number] -PPI : Acute kidney injury likely 2/2 vasomotor nephropathy -Nephrology consulted, appreciate recommendations -Presented with a BUN/creatinine of 1.9/19 but up trended to 2.6/61 on 07/31 -08/01 FeNA calculated at 0.13-> indicating prerenal -Strict intake and output -Avoid nephrotoxic medications -Renally dose medications -Elizabeth in place -Overnight patient had decreased urine output and Elizabeth was changed this a.m. with return of 2 L of urine -Increase in BUN/creatinine may be obstructive in nature -A.m. labs ordered ID: Acute sepsis, pneumonia -Infectious disease consulted patient recommendations -ABX therapy: Cefepime -07/27 BC x2 with no growth after 4 days -07/29 tracheal aspirate with no growth -Monitor CBCs and fever curve Heme: Left lower leg DVT, leukocytosis -Patient is on Lovenox -SCDs to bilateral lower extremities while in bed -Trend CBC -evidenced on BLE US Oncology: h/o breast cancer, Lung mass, breast carcinoma with metastasis -CXR shows suspicious nodular density at the left base -08/02 bronchoscopy -Heme/oncology consulted, appreciate recommendations -Heme/oncology recommends biopsy -08/02 bronchoscopy completed; washings and brush sent for cytology, cell count and AFB-> preliminary results obtained, see report -CEA, CA 153, CA 2729 pending -Awaiting possible transfer to outside facility Endo: h/o DM -SSI -Avoid hypoglycemia -Lantus, titrate as needed The high probability of a clinically significant, sudden or life threatening deterioration of the [multi] system(s) required my full and direct attention, intervention and personal management. The aggregate critical care time was [60] minutes. This time is in addition to time spent performing reported procedures but includes the following: [x] Data Review and interpretation [x] Patient assessment and monitoring of vital signs [x] Documentation [x] Medication orders and management Disposition Plan: ICU Total Time Spent with Patient (Minutes): 60 History Interval history: This is a 66-year-old female with HTN, DM, HLD and COPD who presented to emergency department on 07/28 with complaints of difficulty in breathing ongoing for the past few days via EMS. En route she was given Solu-Medrol IV magnesium and albuterol nebulizing treatment. Upon arrival to emergency department patient had multiple rounds of embolizing treatments and was subsequently placed on BiPAP with some improvement. Patient has been fully vaccinated. Work-up in the emergency department revealed CXR suspicious for right-sided pneumonia, nodular density in the left base and increased interstitial markings which may be chronic. Patient was admitted to the hospitalist service with electrolyte imbalances, leukocytosis, COPD exacerbation, hypoxia and possible pneumonia. 07/29/2021. Patient seen this morning with Shabbir-Chavira respiration/agonal breathing. RENEE ABREU was called and patient was intubated and placed on mechanical ventilation. Patient transferred to ICU. Critical care/pulmonary consulted. Patient currently with AC mode rate of 30, FiO2 100%, PEEP of 12. Continue IV antibiotics. Consult ID and oncology for further evaluation. Patient will likely need bronchoscopy for further evaluation of the lung mass. Doppler ultrasound revealedLLE DVT. Start anticoagulation. 07/30/2021. Patient appears much improved and more responsive this morning. Patient currently with AC mode ventilation rate of 24, tidal volume 450, PEEP of 8 and FiO2 35%. Spontaneous breathing trials with possible extubation today per pulmonary. Bronchoscopy per pulmonary. Continue Lovenox twice daily for DVT. Continue IV antibiotics for sepsis/pneumonia. ID consultation pending. Follow-up CEA, CA 15-3, CA 2729. 07/31/2021. Echocardiogram reveals left ventricular size and function are normal. EF 50 to 55% with mild diastolic dysfunction. Patient currently with CPAP/PSV trial 11/02. Anticipate extubation today per pulmonary. Bronchoscopy per pulmonary. Continue Lovenox twice daily for DVT. Continue IV antibiotics for sepsis/pneumonia. ID consultation pending. Follow-up CEA, CA 15-3, CA 2729. 08/01: ALIYAH 08/02: Patient had a bronchoscopy today. Cell count, cytology and AFB sent from samples. Patient remains sedated on fentanyl and Versed. Patient and daughter Rosana were updated. 08/03: [facility] follow-up on [facility] specimens and was informed patient specimens indicate cancer. Communicated to Dr. Abbott and he stated he will update family. 08/04: Patient remains sedated on fentanyl and Versed, patient has moments of agitation with any stimulation. CPAP trial unable to be completed today due to agitation. 08/05: Patient had low urine output overnight and Elizabeth catheter was changed this a.m. with 2 L of urine output received. Patient did have a increase in creatinine however this may have been obstructive process and nephrology is aware. Hematology/oncology spoke to family who wishes for everything to be done despite bronchial washings with cancer cells. [facility] contacted patient's o ncologist to help facilitate transfer. We attempted to hold sedation for CPAP trial however patient became extremely agitated and sedation was restarted. Hospitalist Physical - Constitutional Vitals: Temp Pulse Resp BP Pulse Ox 99.1 F 87 16 121/58 97 08/05/21 12:00 08/05/21 15:45 08/05/21 15:45 08/05/21 15:45 08/05/21 15:45 General appearance: Present: no acute distress, well-nourished, other - EENT Eyes: Present: PERRL ENT: dentition normal - Neck Neck: Present: normal ROM - Respiratory Respiratory effort: normal Respiratory: bilateral: diminished - Cardiovascular Rhythm: regular Heart Sounds: Present: S1 & S2. Absent: systolic murmur, diastolic murmur - Extremities Extremities: no ischemia, pulses intact, pulses symmetrical, normal temperature, normal color Peripheral Pulses: within normal limits - Abdominal General gastrointestinal: soft, non-tender, non-distended, normal bowel sounds - Integumentary Integumentary: Present: warm, dry - Psychiatric Psychiatric: agitated, other (Sedated for the gets agitated with any stimuli) - Neurologic Neurologic: other (Sedated) - Allied Health Allied health notes reviewed: nursing, RT, social work Results - Labs CBC & Chem 7: 08/05/21 04:50 08/05/21 04:50 Labs: Laboratory Last Values WBC 19.0 K/mm3 (4.5-11.0) H 08/05/21 04:50 RBC 3.91 M/mm3 (3.65-5.03) 08/05/21 04:50 Hgb 11.5 gm/dl (10.1-14.3) 08/05/21 04:50 Hct 35.0 % (30.3-42.9) 08/05/21 04:50 MCV 90 fl (79-97) 08/05/21 04:50 MCH 30 pg (28-32) 08/05/21 04:50 MCHC 33 % (30-34) 08/05/21 04:50 RDW 17.0 % (13.2-15.2) H 08/05/21 04:50 Plt Count 237 K/mm3 (140-440) 08/05/21 04:50 Lymph % (Auto) 5.1 % (13.4-35.0) L 08/02/21 Unknown [place] % (Auto) 6.1 % (0.0-7.3) 08/02/21 Unknown Eos % (Auto) 0.0 % (0.0-4.3) 08/02/21 Unknown Baso % (Auto) 0.1 % (0.0-1.8) 08/02/21 Unknown Lymph # (Auto) 0.7 K/mm3 (1.2-5.4) L 08/02/21 Unknown [place] # (Auto) 0.9 K/mm3 (0.0-0.8) H 08/02/21 Unknown Eos # (Auto) 0.0 K/mm3 (0.0-0.4) 08/02/21 Unknown Baso # (Auto) 0.0 K/mm3 (0.0-0.1) 08/02/21 Unknown Add Manual Diff Complete 08/05/21 04:50 Total Counted 100 08/05/21 04:50 Seg Neutrophils % 88.7 % (40.0-70.0) H 08/02/21 Unknown Seg Neuts % (Manual) 75.0 % (40.0-70.0) H 08/05/21 04:50 Band Neutrophils % 8.0 % 08/05/21 04:50 Lymphocytes % (Manual) 2.0 % (13.4-35.0) L 08/05/21 04:50 Monocytes % (Manual) 5.0 % (0.0-7.3) 08/05/21 04:50 Eosinophils % (Manual) 1.0 % (0.0-4.3) 08/05/21 04:50 Metamyelocytes % 6.0 % 08/05/21 04:50 Myelocytes % 3.0 % 08/05/21 04:50 Nucleated RBC % Not Reportable 08/05/21 04:50 Seg Neutrophils # 12.5 K/mm3 (1.8-7.7) H 08/02/21 Unknown Seg Neutrophils # Man 14.3 K/mm3 (1.8-7.7) H 08/05/21 04:50 Band Neutrophils # 1.5 K/mm3 08/05/21 04:50 Lymphocytes # (Manual) 0.4 K/mm3 (1.2-5.4) L 08/05/21 04:50 Abs React Lymphs (Man) 0.0 K/mm3 08/05/21 04:50 Monocytes # (Manual) 1.0 K/mm3 (0.0-0.8) H 08/05/21 04:50 Eosinophils # (Manual) 0.2 K/mm3 (0.0-0.4) 08/05/21 04:50 Basophils # (Manual) 0.0 K/mm3 (0.0-0.1) 08/05/21 04:50 Metamyelocytes # 1.1 K/mm3 08/05/21 04:50 Myelocytes # 0.6 K/mm3 08/05/21 04:50 Promyelocytes # 0.0 K/mm3 08/05/21 04:50 Blast Cells # 0.0 K/mm3 08/05/21 04:50 WBC Morphology Not Reportable 08/05/21 04:50 Hypersegmented Neuts Not Reportable 08/05/21 04:50 Hyposegmented Neuts Not Reportable 08/05/21 04:50 Hypogranular Neuts Not Reportable 08/05/21 04:50 Smudge Cells Not Reportable 08/05/21 04:50 Toxic Granulation Not Reportable 08/05/21 04:50 Toxic Vacuolation Not Reportable 08/05/21 04:50 Dohle Bodies Not Reportable 08/05/21 04:50 Pelger-Huet Anomaly Not Reportable 08/05/21 04:50 Beryl Rods Not Reportable 08/05/21 04:50 Platelet Estimate Consistent w auto 08/05/21 04:50 Clumped Platelets Not Reportable 08/05/21 04:50 Plt Clumps, EDTA Not Reportable 08/05/21 04:50 Large Platelets Not Reportable 08/05/21 04:50 Giant Platelets Not Reportable 08/05/21 04:50 Platelet Satelliting Not Reportable 08/05/21 04:50 Plt Morphology Comment Not Reportable 08/05/21 04:50 RBC Morphology Not Reportable 08/05/21 04:50 Dimorphic RBCs Not Reportable 08/05/21 04:50 Polychromasia Not Reportable 08/05/21 04:50 Hypochromasia Not Reportable 08/05/21 04:50 Poikilocytosis Not Reportable 08/05/21 04:50 Anisocytosis Not Reportable 08/05/21 04:50 Microcytosis Not Reportable 08/05/21 04:50 Macrocytosis Not Reportable 08/05/21 04:50 Spherocytes Not Reportable 08/05/21 04:50 Pappenheimer Bodies Not Reportable 08/05/21 04:50 Sickle Cells Not Reportable 08/05/21 04:50 Target Cells Not Reportable 08/05/21 04:50 Tear Drop Cells Not Reportable 08/05/21 04:50 Ovalocytes Few 08/05/21 04:50 Helmet Cells Not Reportable 08/05/21 04:50 [place] Bodies Not Reportable 08/05/21 04:50 [place] Rings Not Reportable 08/05/21 04:50 [place] Cells Not Reportable 08/05/21 04:50 Bite Cells Not Reportable 08/05/21 04:50 Crenated Cell Not Reportable 08/05/21 04:50 Elliptocytes Not Reportable 08/05/21 04:50 Acanthocytes (Spur) Not Reportable 08/05/21 04:50 Rouleaux Not Reportable 08/05/21 04:50 Hemoglobin C Crystals Not Reportable 08/05/21 04:50 Schistocytes Not Reportable 08/05/21 04:50 Malaria parasites Not Reportable 08/05/21 04:50 Gurmeet Bodies Not Reportable 08/05/21 04:50 Hem Pathologist Commnt No 08/05/21 04:50 PT 14.0 Sec. (12.2-14.9) 08/03/21 08:30 INR 1.03 (0.87-1.13) 08/03/21 08:30 D-Dimer 852.47 ng/mlDDU (0-234) H 07/29/21 07:17 ABG pH 7.314 (7.320-7.450) L 08/05/21 04:00 POC ABG pCO2 48.9 mmHg (32.0-48.0) H 08/05/21 04:00 POC ABG pO2 89.1 mmHg (83-108) 08/05/21 04:00 POC ABG HCO3 24.3 08/05/21 04:00 ABG O2 Saturation 96.1 (0-100) 08/05/21 04:00 POC ABG Base Excess -2.2 08/05/21 04:00 ABG Hemoglobin 12.5 (12.0-17.5) 08/05/21 04:00 ABG Oxyhemoglobin 95.7 (94-98) 08/05/21 04:00 ABG Methemoglobin 0 (0.0-1.5) 08/05/21 04:00 ABG Sodium 143.1 mmol/L (136.0-145.0) 08/05/21 04:00 ABG Potassium 5.0 mmol/L (3.40-4.50) H 08/05/21 04:00 ABG Chloride 109.0 mmol/L (98-107) H 08/05/21 04:00 ABG Glucose 234 mg/dL (65-95) H 08/05/21 04:00 Carboxyhemoglobin 0.4 (0.5-1.5) L 08/05/21 04:00 FiO2 % 30.0 08/05/21 04:00 Sodium 145 mmol/L (137-145) 08/05/21 04:50 Potassium 5.2 mmol/L (3.6-5.0) H 08/05/21 04:50 Chloride 110.0 mmol/L (98-107) H 08/05/21 04:50 Carbon Dioxide 25 mmol/L (22-30) 08/05/21 04:50 Anion Gap 15 mmol/L 08/05/21 04:50 BUN 90 mg/dL (7-17) H 08/05/21 04:50 Creatinine 1.8 mg/dL (0.6-1.2) H 08/05/21 04:50 Estimated GFR 34 ml/min 08/05/21 04:50 BUN/Creatinine Ratio 50 % 08/05/21 04:50 Glucose 235 mg/dL (65-100) H 08/05/21 04:50 POC Glucose 193 mg/dL (70-105) H 08/05/21 12:02 Lactic Acid 2.10 mmol/L (0.7-2.0) H* 08/03/21 15:11 Calcium 8.4 mg/dL (8.4-10.2) 08/05/21 04:50 Phosphorus 4.20 mg/dL (2.5-4.5) 08/05/21 04:50 Magnesium 2.60 mg/dL (1.7-2.3) H 08/05/21 04:50 Total Bilirubin 0.30 mg/dL (0.1-1.2) 07/27/21 22:57 AST 98 units/L (5-40) H 07/27/21 22:57 ALT 90 units/L (7-56) H 07/27/21 22:57 Alkaline Phosphatase 98 units/L (35-129) 07/27/21 22:57 Total Protein 8.0 g/dL (6.3-8.2) 07/27/21 22:57 Albumin 4.2 g/dL (3.9-5) 07/27/21 22:57 Albumin/Globulin Ratio 1.1 % 07/27/21 22:57 Carcinoembryonic Ag <0.5 ng/mL (0.0-2.4) 07/31/21 04:45 Arterial Blood Glucose 234 mg/dL (65-95) H 08/05/21 04:00 Arterial Blood Ionized Calcium 4.6 mg/dL (4.6-5.3) 08/05/21 04:00 Urine Color Yellow (Yellow) 08/02/21 15:30 Urine Turbidity Cloudy (Clear) 08/02/21 15:30 Urine pH 5.0 (5.0-7.0) 08/02/21 15:30 Ur Specific [place] 1.021 (1.003-1.030) 08/02/21 15:30 Urine Protein 30 mg/dl mg/dL (Negative) 08/02/21 15:30 Urine Glucose (UA) Neg mg/dL (Negative) 08/02/21 15:30 Urine Ketones Neg mg/dL (Negative) 08/02/21 15:30 Urine Blood Lg (Negative) 08/02/21 15:30 Urine Nitrite Neg (Negative) 08/02/21 15:30 Urine Bilirubin Neg (Negative) 08/02/21 15:30 Urine Urobilinogen < 2.0 mg/dL (<2.0) 08/02/21 15:30 Ur Leukocyte Esterase Sm (Negative) 08/02/21 15:30 Urine WBC (Auto) 47.0 /HPF (0.0-6.0) H 08/02/21 15:30 Urine RBC (Auto) 140.0 /HPF (0.0-6.0) 08/02/21 15:30 U Epithel Cells (Auto) < 1.0 /HPF (0-13.0) 08/02/21 15:30 Urine Mucus Few /HPF 08/02/21 15:30 Urine Creatinine 125.6 mg/dL (0.1-20.0) H 08/01/21 Unknown Urine Sodium 12 mmol/L 08/01/21 Unknown Double Strand DNA Ab 1 IU/mL (<=4) 08/02/21 15:40 Coronavirus (PCR) Negative (Negative) 07/29/21 07:58 Hepatitis A IgM Ab Non-reactive (NonReactive) 08/02/21 15:40 Hep Bs Antigen Nonreactive (Negative) 08/02/21 15:40 Hep B Core IgM Ab Non-reactive (NonReactive) 08/02/21 15:40 Hepatitis C Antibody Non-reactive (NonReactive) 08/02/21 15:40 AFB Identification Negative 08/02/21 14:30 Elizabeth/IV: Voiding Method Indwelling Catheter Active Medications - Current Medications Current Medications: Generic Name Dose Route Start Last Admin Trade Name Freq PRN Reason Stop Dose Admin Acetaminophen 650 mg 07/28/21 02:11 Acetaminophen 325 Mg Tab PO Q6H PRN Pain MILD(1-3)/Fever >100.5/GARCIA Albuterol/Ipratropium 1 ampul 07/28/21 14:00 08/05/21 13:18 Ipratropium/Albuterol Sulfate 3 Ml Ampul.Neb IH 1 ampul TID DEMIAN Administration Lipase/Protease/Amylase 1 each 07/29/21 13:01 Lipase 10,500/Protease 25,000/Amylase 43,750 (Units) Dr Campoverde FEEDTUBE PRN PRN For Clogged Feeding Tube Arformoterol Tartrate 15 mcg 07/28/21 20:00 08/05/21 08:31 Arformoterol 15 Mcg/2 Ml Nebu IH 15 mcg Q12HRT DEMIAN Administration Budesonide 0.5 mg 07/28/21 20:00 08/05/21 08:31 Budesonide 0.5 Mg/2 Ml Nebu IH 0.5 mg Q12HRT DEMIAN Administration Dextrose 50 ml 07/28/21 02:11 Dextrose 50% In Water (25gm) 50 Ml Syringe IV Q30MIN PRN Hypoglycemia Protocol Enoxaparin Sodium 100 mg 08/02/21 10:00 08/05/21 09:27 Enoxaparin 100 Mg/1 Ml Inj SUB-Q 100 mg Q24H DEMIAN Administration Protocol Famotidine 10 mg 08/02/21 10:00 08/05/21 09:14 Famotidine 20 Mg/2 Ml Inj IV 10 mg BID DEMIAN Administration Fentanyl 50 mcg 07/29/21 10:42 08/04/21 09:05 Fentanyl 100 Mcg/2 Ml Inj IV 50 mcg Q10MIN PRN Administration ANALGESIA Hydralazine HCl 10 mg 07/30/21 14:52 08/03/21 17:31 Hydralazine 20 Mg/1 Ml Inj IV 10 mg Q6H PRN Administration SBP > 165 Hydrophilic Ointment 1 applic 07/29/21 10:42 Lip Therapy Vaseline TP Q2HR PRN Dry Lips Fentanyl Citrate 2,000 mcg in 100 mls @ 5.35 mls/hr 07/29/21 11:00 08/05/21 11:34 Fentanyl Drip Premix IV 4 mcg/kg/hr TITR DEMIAN 21.4 mls/hr Administration Protocol 1 MCG/KG/HR Midazolam HCl 100 mg/ Sodium 100 mls @ 2 mls/hr 07/29/21 11:00 08/05/21 11:36 Chloride IV 2 mg/hr TITR DEMIAN 2 mls/hr Titration Protocol 2 MG/HR Norepinephrine 4 mg in 250 mls @ 7.5 mls/hr 07/29/21 21:00 Levophed Drip 4 Mg/Ns 250 Ml IV TITR DEMIAN Protocol 2 MCG/MIN Cefepime HCl 2 gm in 100 mls @ 200 mls/hr 08/02/21 10:00 08/05/21 09:27 Cefepime/Ns 2 Gm/100 Ml IV 08/07/21 22:29 200 mls/hr Q12H DEMIAN Administration Protocol Sodium Chloride 1,000 mls @ 75 mls/hr 08/03/21 10:00 08/05/21 01:43 Nacl 0.45% 1000 Ml IV 75 mls/hr DIRECT DEMIAN Administration Insulin Glargine 30 units 08/05/21 22:00 Insulin Glargine 100 Units/Ml SUB-Q QHS DEMIAN Insulin Human Lispro 0 unit 07/29/21 12:00 08/05/21 13:11 Insulin Lispro 100 Unit/Ml SUB-Q 4 unit Q6HR [facility] Administration Protocol Magnesium Hydroxide 30 ml 07/28/21 02:11 Magnesium Hydroxide (Mom) Oral Liqd Udc PO Q4H PRN Constipation Midazolam HCl 2 mg 07/29/21 10:42 08/05/21 09:19 Midazolam 2 Mg/2 Ml Inj IV 2 mg Q10MIN PRN Administration Sedation Multi-Ingred Cream/Lotion/Oil/Oint 1 applic 07/29/21 10:42 Mineral Oil/Petrolatum, White Ophth Oint 3.5 Gm OU Q4HR PRN Dry Eye(s) Ondansetron HCl 4 mg 07/28/21 02:11 Ondansetron 4 Mg/2 Ml Inj IV Q8H PRN Nausea And Vomiting Quetiapine Fumarate 200 mg 08/05/21 22:00 Quetiapine 200 Mg Tab PO BID DEMIAN Senna/Docusate Sodium 1 tab 07/29/21 22:00 08/05/21 09:18 Sennosides/Docusate Sodium 8.6/50 Mg Tab FEEDTUBE 1 tab BID DEMIAN Administration Simple Syrup 15 ml 07/29/21 13:01 Simple Syrup 15 Ml FEEDTUBE PRN PRN Hypoglycemia Simple Syrup 30 ml 07/29/21 13:01 Simple Syrup 15 Ml FEEDTUBE PRN PRN Hypoglycemia Sodium Bicarbonate 325 mg 07/29/21 13:01 Sodium Bicarbonate 325 Mg Tab FEEDTUBE PRN PRN For Clogged Feeding Tube Sodium Chloride 10 ml 07/28/21 10:00 08/05/21 09:29 Sodium Chloride 0.9% 10 Ml Flush Syringe IV 10 ml BID DEMIAN Administration Sodium Chloride 10 ml 07/28/21 02:05 Sodium Chloride 0.9% 10 Ml Flush Syringe IV PRN PRN LINE FLUSH Nutrition/Malnutrition Assess - Dietary Evaluation Nutrition/Malnutrition Findings: Nutrition Notes Start: 07/28/21 14:44 Freq: Status: Active Protocol: Document 08/04/21 12:18 (Rec: 08/04/21 12:22 [id number]) Nutrition Notes Initial or Follow up Reassessment Current Diagnosis COPD,Diabetes,Hypertension, Respiratory Failure Other Pertinent Diagnosis pneu Current Diet Vital AF at 50 ml/hr Labs/Tests BUN 76 Cr 1.4 BG 310 Mg 2.7 Pertinent Medications Solu Medrol Humalog Height 5 ft Weight 107 kg [place] Body Weight (kg) 45.45 BMI 46.0 Weight Status Morbidly Obese Subjective/Other Information TF running at goal rate and no signs of intolerance noted. [facility] specimens indicate cancer. Percent of energy/protein needs met: 96%/67% Burn Absent Trauma Absent Current % PO Negligible Minimum of two criteria No #1 Nutrition Diagnosis Inadequate oral intake Diagnosis Progress(for reassessment Continues documentation) Is patient on ventilator? Yes Is Patient Ambulatory and/or Out of Bed No REE-([place]-confined to bed) 1842.852 Kcal/Kg value to use for calculation 14 Approximate Energy Requirements Using 1498 kcal/Kg Calculation Used for Recommendations Kcal/kg Additional Notes Protein: (up to 2.5g/kg IBW) up to 134g Fluid: 1 ml/kcal or per MD Nutrition Intervention Change Diet Order: continue Nutrition Support: Vital AF 1.2 at 50 ml/hr Flush 75 ml q4h or per MD Kcal 1,440 Protein (gm) 90 Fluid (mL) 973 Goal #1 Meet at least 75% of protein and energy needs via TF Anticipated Discharge Needs: Unable to determine at this time Follow-Up By: 08/08/21 Additional Comments F/u: stable TF, renal function <LINDSAY FARR - Last Filed: 08/07/21 11:09> History Interval history: I saw and evaluated the patient. Discussed with the nurse practitioner and agree with their findings and plan as documented in this note. Hospitalist Physical - Constitutional Vitals: Temp Pulse Resp BP Pulse Ox 98.3 F 99 H 20 107/52 98 08/07/21 03:44 08/07/21 08:21 08/07/21 08:21 08/07/21 07:52 08/07/21 07:52 Results - Labs CBC & Chem 7: 08/07/21 04:00 08/07/21 04:00 Labs: Laboratory Last Values WBC 13.6 K/mm3 (4.5-11.0) H 08/07/21 04:00 RBC 3.30 M/mm3 (3.65-5.03) L 08/07/21 04:00 Hgb 9.5 gm/dl (10.1-14.3) L 08/07/21 04:00 Hct 29.2 % (30.3-42.9) L 08/07/21 04:00 MCV 88 fl (79-97) 08/07/21 04:00 MCH 29 pg (28-32) 08/07/21 04:00 MCHC 32 % (30-34) 08/07/21 04:00 RDW 16.7 % (13.2-15.2) H 08/07/21 04:00 Plt Count 221 K/mm3 (140-440) 08/07/21 04:00 Lymph % (Auto) 5.1 % (13.4-35.0) L 08/02/21 Unknown [place] % (Auto) 6.1 % (0.0-7.3) 08/02/21 Unknown Eos % (Auto) 0.0 % (0.0-4.3) 08/02/21 Unknown Baso % (Auto) 0.1 % (0.0-1.8) 08/02/21 Unknown Lymph # (Auto) 0.7 K/mm3 (1.2-5.4) L 08/02/21 Unknown [place] # (Auto) 0.9 K/mm3 (0.0-0.8) H 08/02/21 Unknown Eos # (Auto) 0.0 K/mm3 (0.0-0.4) 08/02/21 Unknown Baso # (Auto) 0.0 K/mm3 (0.0-0.1) 08/02/21 Unknown Add Manual Diff Complete 08/05/21 04:50 Total Counted 100 08/05/21 04:50 Seg Neutrophils % 88.7 % (40.0-70.0) H 08/02/21 Unknown Seg Neuts % (Manual) 75.0 % (40.0-70.0) H 08/05/21 04:50 Band Neutrophils % 8.0 % 08/05/21 04:50 Lymphocytes % (Manual) 2.0 % (13.4-35.0) L 08/05/21 04:50 Monocytes % (Manual) 5.0 % (0.0-7.3) 08/05/21 04:50 Eosinophils % (Manual) 1.0 % (0.0-4.3) 08/05/21 04:50 Metamyelocytes % 6.0 % 08/05/21 04:50 Myelocytes % 3.0 % 08/05/21 04:50 Nucleated RBC % Not Reportable 08/05/21 04:50 Seg Neutrophils # 12.5 K/mm3 (1.8-7.7) H 08/02/21 Unknown Seg Neutrophils # Man 14.3 K/mm3 (1.8-7.7) H 08/05/21 04:50 Band Neutrophils # 1.5 K/mm3 08/05/21 04:50 Lymphocytes # (Manual) 0.4 K/mm3 (1.2-5.4) L 08/05/21 04:50 Abs React Lymphs (Man) 0.0 K/mm3 08/05/21 04:50 Monocytes # (Manual) 1.0 K/mm3 (0.0-0.8) H 08/05/21 04:50 Eosinophils # (Manual) 0.2 K/mm3 (0.0-0.4) 08/05/21 04:50 Basophils # (Manual) 0.0 K/mm3 (0.0-0.1) 08/05/21 04:50 Metamyelocytes # 1.1 K/mm3 08/05/21 04:50 Myelocytes # 0.6 K/mm3 08/05/21 04:50 Promyelocytes # 0.0 K/mm3 08/05/21 04:50 Blast Cells # 0.0 K/mm3 08/05/21 04:50 WBC Morphology Not Reportable 08/05/21 04:50 Hypersegmented Neuts Not Reportable 08/05/21 04:50 Hyposegmented Neuts Not Reportable 08/05/21 04:50 Hypogranular Neuts Not Reportable 08/05/21 04:50 Smudge Cells Not Reportable 08/05/21 04:50 Toxic Granulation Not Reportable 08/05/21 04:50 Toxic Vacuolation Not Reportable 08/05/21 04:50 Dohle Bodies Not Reportable 08/05/21 04:50 Pelger-Huet Anomaly Not Reportable 08/05/21 04:50 Beryl Rods Not Reportable 08/05/21 04:50 Platelet Estimate Consistent w auto 08/05/21 04:50 Clumped Platelets Not Reportable 08/05/21 04:50 Plt Clumps, EDTA Not Reportable 08/05/21 04:50 Large Platelets Not Reportable 08/05/21 04:50 Giant Platelets Not Reportable 08/05/21 04:50 Platelet Satelliting Not Reportable 08/05/21 04:50 Plt Morphology Comment Not Reportable 08/05/21 04:50 RBC Morphology Not Reportable 08/05/21 04:50 Dimorphic RBCs Not Reportable 08/05/21 04:50 Polychromasia Not Reportable 08/05/21 04:50 Hypochromasia Not Reportable 08/05/21 04:50 Poikilocytosis Not Reportable 08/05/21 04:50 Anisocytosis Not Reportable 08/05/21 04:50 Microcytosis Not Reportable 08/05/21 04:50 Macrocytosis Not Reportable 08/05/21 04:50 Spherocytes Not Reportable 08/05/21 04:50 Pappenheimer Bodies Not Reportable 08/05/21 04:50 Sickle Cells Not Reportable 08/05/21 04:50 Target Cells Not Reportable 08/05/21 04:50 Tear Drop Cells Not Reportable 08/05/21 04:50 Ovalocytes Few 08/05/21 04:50 Helmet Cells Not Reportable 08/05/21 04:50 [place] Bodies Not Reportable 08/05/21 04:50 [place] Rings Not Reportable 08/05/21 04:50 [place] Cells Not Reportable 08/05/21 04:50 Bite Cells Not Reportable 08/05/21 04:50 Crenated Cell Not Reportable 08/05/21 04:50 Elliptocytes Not Reportable 08/05/21 04:50 Acanthocytes (Spur) Not Reportable 08/05/21 04:50 Rouleaux Not Reportable 08/05/21 04:50 Hemoglobin C Crystals Not Reportable 08/05/21 04:50 Schistocytes Not Reportable 08/05/21 04:50 Malaria parasites Not Reportable 08/05/21 04:50 Gurmeet Bodies Not Reportable 08/05/21 04:50 Hem Pathologist Commnt No 08/05/21 04:50 PT 14.0 Sec. (12.2-14.9) 08/03/21 08:30 INR 1.03 (0.87-1.13) 08/03/21 08:30 D-Dimer 852.47 ng/mlDDU (0-234) H 07/29/21 07:17 ABG pH 7.368 (7.320-7.450) 08/07/21 04:00 POC ABG pCO2 42.0 mmHg (32.0-48.0) 08/07/21 04:00 POC ABG pO2 80.1 mmHg (83-108) L 08/07/21 04:00 POC ABG HCO3 23.6 08/07/21 04:00 ABG O2 Saturation 95.2 (0-100) 08/07/21 04:00 POC ABG Base Excess -1.6 08/07/21 04:00 ABG Hemoglobin 9.8 (12.0-17.5) L 08/07/21 04:00 ABG Oxyhemoglobin 94.9 (94-98) 08/07/21 04:00 ABG Methemoglobin 0 (0.0-1.5) 08/07/21 04:00 ABG Sodium 142.1 mmol/L (136.0-145.0) 08/07/21 04:00 ABG Potassium 3.9 mmol/L (3.40-4.50) 08/07/21 04:00 ABG Chloride 111.0 mmol/L (98-107) H 08/07/21 04:00 ABG Glucose 157 mg/dL (65-95) H 08/07/21 04:00 Carboxyhemoglobin 0.3 (0.5-1.5) L 08/07/21 04:00 FiO2 % 30.0 08/07/21 04:00 Sodium 146 mmol/L (137-145) H 08/07/21 04:00 Potassium 4.0 mmol/L (3.6-5.0) 08/07/21 04:00 Chloride 111.4 mmol/L (98-107) H 08/07/21 04:00 Carbon Dioxide 27 mmol/L (22-30) 08/07/21 04:00 Anion Gap 12 mmol/L 08/07/21 04:00 BUN 78 mg/dL (7-17) H 08/07/21 04:00 Creatinine 1.5 mg/dL (0.6-1.2) H 08/07/21 04:00 Estimated GFR 42 ml/min 08/07/21 04:00 BUN/Creatinine Ratio 52 % 08/07/21 04:00 Glucose 143 mg/dL (65-100) H 08/07/21 04:00 POC Glucose 144 mg/dL (70-105) H 08/07/21 05:16 Lactic Acid 2.10 mmol/L (0.7-2.0) H* 08/03/21 15:11 Calcium 8.2 mg/dL (8.4-10.2) L 08/07/21 04:00 Phosphorus 4.20 mg/dL (2.5-4.5) 08/05/21 04:50 Magnesium 2.60 mg/dL (1.7-2.3) H 08/05/21 04:50 Total Bilirubin 0.30 mg/dL (0.1-1.2) 07/27/21 22:57 AST 98 units/L (5-40) H 07/27/21 22:57 ALT 90 units/L (7-56) H 07/27/21 22:57 Alkaline Phosphatase 98 units/L (35-129) 07/27/21 22:57 Total Protein 8.0 g/dL (6.3-8.2) 07/27/21 22:57 Albumin 4.2 g/dL (3.9-5) 07/27/21 22:57 Albumin/Globulin Ratio 1.1 % 07/27/21 22:57 Carcinoembryonic Ag <0.5 ng/mL (0.0-2.4) 07/31/21 04:45 Arterial Blood Glucose 157 mg/dL (65-95) H 08/07/21 04:00 Arterial Blood Ionized Calcium 4.5 mg/dL (4.6-5.3) L 08/07/21 04:00 Urine Color Yellow (Yellow) 08/02/21 15:30 Urine Turbidity Cloudy (Clear) 08/02/21 15:30 Urine pH 5.0 (5.0-7.0) 08/02/21 15:30 Ur Specific Crawford 1.021 (1.003-1.030) 08/02/21 15:30 Urine Protein 30 mg/dl mg/dL (Negative) 08/02/21 15:30 Urine Glucose (UA) Neg mg/dL (Negative) 08/02/21 15:30 Urine Ketones Neg mg/dL (Negative) 08/02/21 15:30 Urine Blood Lg (Negative) 08/02/21 15:30 Urine Nitrite Neg (Negative) 08/02/21 15:30 Urine Bilirubin Neg (Negative) 08/02/21 15:30 Urine Urobilinogen < 2.0 mg/dL (<2.0) 08/02/21 15:30 Ur Leukocyte Esterase Sm (Negative) 08/02/21 15:30 Urine WBC (Auto) 47.0 /HPF (0.0-6.0) H 08/02/21 15:30 Urine RBC (Auto) 140.0 /HPF (0.0-6.0) 08/02/21 15:30 U Epithel Cells (Auto) < 1.0 /HPF (0-13.0) 08/02/21 15:30 Urine Mucus Few /HPF 08/02/21 15:30 Urine Creatinine 125.6 mg/dL (0.1-20.0) H 08/01/21 Unknown Urine Sodium 12 mmol/L 08/01/21 Unknown Double Strand DNA Ab 1 IU/mL (<=4) 08/02/21 15:40 Coronavirus (PCR) Negative (Negative) 07/29/21 07:58 Hepatitis A IgM Ab Non-reactive (NonReactive) 08/02/21 15:40 Hep Bs Antigen Nonreactive (Negative) 08/02/21 15:40 Hep B Core IgM Ab Non-reactive (NonReactive) 08/02/21 15:40 Hepatitis C Antibody Non-reactive (NonReactive) 08/02/21 15:40 AFB Identification Negative 08/02/21 14:30 Elizabeth/IV: Voiding Method Indwelling Catheter Active Medications - Current Medications Current Medications: Generic Name Dose Route Start Last Admin Trade Name Freq PRN Reason Stop Dose Admin Acetaminophen 650 mg 07/28/21 02:11 Acetaminophen 325 Mg Tab PO Q6H PRN Pain MILD(1-3)/Fever >100.5/GARCIA Albuterol/Ipratropium 1 ampul 07/28/21 14:00 08/07/21 08:16 Ipratropium/Albuterol Sulfate 3 Ml Ampul.Neb IH 1 ampul TID DEMIAN Administration Lipase/Protease/Amylase 1 each 07/29/21 13:01 Lipase 10,500/Protease 25,000/Amylase 43,750 (Units) Dr Campoverde FEEDTUBE PRN PRN For Clogged Feeding Tube Arformoterol Tartrate 15 mcg 07/28/21 20:00 08/07/21 08:16 Arformoterol 15 Mcg/2 Ml Nebu IH 15 mcg Q12HRT DEMIAN Administration Bisacodyl 10 mg 08/07/21 09:50 Bisacodyl 10 Mg Rect Supp DE QDAY PRN Constip unreliev by MOM/or NPO Budesonide 0.5 mg 07/28/21 20:00 08/07/21 08:16 Budesonide 0.5 Mg/2 Ml Nebu IH 0.5 mg Q12HRT DEMIAN Administration Dextrose 50 ml 07/28/21 02:11 Dextrose 50% In Water (25gm) 50 Ml Syringe IV Q30MIN PRN Hypoglycemia Protocol Enoxaparin Sodium 100 mg 08/07/21 10:00 08/07/21 09:47 Enoxaparin 100 Mg/1 Ml Inj SUB-Q 100 mg Q12H DEMIAN Administration Protocol Famotidine 10 mg 08/02/21 10:00 08/07/21 09:46 Famotidine 20 Mg/2 Ml Inj IV 10 mg BID DEMIAN Administration Fentanyl 50 mcg 07/29/21 10:42 08/04/21 09:05 Fentanyl 100 Mcg/2 Ml Inj IV 50 mcg Q10MIN PRN Administration ANALGESIA Hydralazine HCl 10 mg 07/30/21 14:52 08/03/21 17:31 Hydralazine 20 Mg/1 Ml Inj IV 10 mg Q6H PRN Administration SBP > 165 Hydrophilic Ointment 1 applic 07/29/21 10:42 Lip Therapy Vaseline TP Q2HR PRN Dry Lips Fentanyl Citrate 2,000 mcg in 100 mls @ 5.35 mls/hr 07/29/21 11:00 08/07/21 05:03 Fentanyl Drip Premix IV 4 mcg/kg/hr TITR DEMIAN 21.4 mls/hr Administration Protocol 1 MCG/KG/HR Midazolam HCl 100 mg/ Sodium 100 mls @ 2 mls/hr 07/29/21 11:00 08/05/21 11:36 Chloride IV 2 mg/hr TITR DEMIAN 2 mls/hr Titration Protocol 2 MG/HR Norepinephrine 4 mg in 250 mls @ 7.5 mls/hr 07/29/21 21:00 Levophed Drip 4 Mg/Ns 250 Ml IV TITR DEMIAN Protocol 2 MCG/MIN Cefepime HCl 2 gm in 100 mls @ 200 mls/hr 08/02/21 10:00 08/06/21 22:18 Cefepime/Ns 2 Gm/100 Ml IV 08/07/21 22:29 Infused Q12H [facility] Infusion Protocol Insulin Glargine 30 units 08/05/21 22:00 08/06/21 21:55 Insulin Glargine 100 Units/Ml SUB-Q 30 units QHS DEMIAN Administration Insulin Human Lispro 0 unit 07/29/21 12:00 08/07/21 06:01 Insulin Lispro 100 Unit/Ml SUB-Q Not Given Q6HR [facility] Protocol Magnesium Hydroxide 30 ml 07/28/21 02:11 Magnesium Hydroxide (Mom) Oral Liqd Udc PO Q4H PRN Constipation Midazolam HCl 2 mg 07/29/21 10:42 08/07/21 10:10 Midazolam 2 Mg/2 Ml Inj IV 2 mg Q10MIN PRN Administration Sedation Multi-Ingred Cream/Lotion/Oil/Oint 1 applic 07/29/21 10:42 Mineral Oil/Petrolatum, White Ophth Oint 3.5 Gm OU Q4HR PRN Dry Eye(s) Ondansetron HCl 4 mg 07/28/21 02:11 Ondansetron 4 Mg/2 Ml Inj IV Q8H PRN Nausea And Vomiting Quetiapine Fumarate 200 mg 08/05/21 22:00 08/07/21 09:46 Quetiapine 200 Mg Tab PO 200 mg BID DEMIAN Administration Senna/Docusate Sodium 1 tab 07/29/21 22:00 08/07/21 09:46 Sennosides/Docusate Sodium 8.6/50 Mg Tab FEEDTUBE 1 tab BID DEMIAN Administration Simple Syrup 15 ml 07/29/21 13:01 Simple Syrup 15 Ml FEEDTUBE PRN PRN Hypoglycemia Simple Syrup 30 ml 07/29/21 13:01 Simple Syrup 15 Ml FEEDTUBE PRN PRN Hypoglycemia Sodium Bicarbonate 325 mg 07/29/21 13:01 Sodium Bicarbonate 325 Mg Tab FEEDTUBE PRN PRN For Clogged Feeding Tube Sodium Chloride 10 ml 07/28/21 10:00 08/06/21 21:48 Sodium Chloride 0.9% 10 Ml Flush Syringe IV 10 ml BID DEMIAN Administration Sodium Chloride 10 ml 07/28/21 02:05 Sodium Chloride 0.9% 10 Ml Flush Syringe IV PRN PRN LINE FLUSH Nutrition/Malnutrition Assess - Dietary Evaluation Nutrition/Malnutrition Findings: Nutrition Notes Start: 07/28/21 14:44 Freq: Status: Active Protocol: Document 08/04/21 12:18 (Rec: 08/04/21 12:22 [id number]) Nutrition Notes Initial or Follow up Reassessment Current Diagnosis COPD,Diabetes,Hypertension, Respiratory Failure Other Pertinent Diagnosis pneu Current Diet Vital AF at 50 ml/hr Labs/Tests BUN 76 Cr 1.4 BG 310 Mg 2.7 Pertinent Medications Solu Medrol Humalog Height 5 ft Weight 107 kg [place] Body Weight (kg) 45.45 BMI 46.0 Weight Status Morbidly Obese Subjective/Other Information TF running at goal rate and no signs of intolerance noted. [facility] specimens indicate cancer. Percent of energy/protein needs met: 96%/67% Burn Absent Trauma Absent Current % PO Negligible Minimum of two criteria No #1 Nutrition Diagnosis Inadequate oral intake Diagnosis Progress(for reassessment Continues documentation) Is patient on ventilator? Yes Is Patient Ambulatory and/or Out of Bed No REE-([place]-confined to bed) 1842.852 Kcal/Kg value to use for calculation 14 Approximate Energy Requirements Using 1498 kcal/Kg Calculation Used for Recommendations Kcal/kg Additional Notes Protein: (up to 2.5g/kg IBW) up to 134g Fluid: 1 ml/kcal or per MD Nutrition Intervention Change Diet Order: continue Nutrition Support: Vital AF 1.2 at 50 ml/hr Flush 75 ml q4h or per MD Kcal 1,440 Protein (gm) 90 Fluid (mL) 973 Goal #1 Meet at least 75% of protein and energy needs via TF Anticipated Discharge Needs: Unable to determine at this time Follow-Up By: 08/08/21 Additional Comments F/u: stable TF, renal function
[2021-08-05] MEDS: INSULIN GLARGINE 100 UNITS/ML SUB-Q SCH (21:39)
[2021-08-05] MEDS: QUEtiapine 200 MG TAB PO SCH (21:40)
[2021-08-05] MEDS ORDERED: INSULIN GLARGINE 100 UNITS/ML SUB-Q SCH (22:00)
[2021-08-06] MEDS: INSULIN LISPRO 100 UNIT/ML SUB-Q SCH ×4 (00:41→17:45)
[2021-08-06] MEDS: fentaNYL DRIP Premix 2,000 MCG/100 ML BAG IV SCH ×5 (03:20→23:40)
[2021-08-06] MEDS: SODIUM CHLORIDE 0.45% 1000 ML 1,000 ML IV SCH ×2 (04:50→17:58)
[2021-08-06 05:28] LABS: Hematocrit 32.5 % (30.3-42.9); Hemoglobin 10.7 gm/dl (10.1-14.3); Mean Corpuscular HGB Conc 33 % (30-34); Mean Corpuscular Volume 89 fl (79-97); Platelet Count 218 K/mm3 (140-440); Red Blood Count 3.64 M/mm3 (3.65-5.03); Red Cell Distribution Width 16.6 % (13.2-15.2)
[2021-08-06 05:44] LABS: Calcium 8.2 mg/dL (8.4-10.2)
--- NOTE | 2021-08-06 09:45 | Progress Note ---
Assessment and Plan Impression * Acute kidney injury * Respiratory failure * Pulmonary infiltrates * History of breast cancer. [place] to be metastatic with mediastinal and lung masses Recommendations * Acute kidney injury most likely prerenal. Fractional excretion of sodium is 0.13%. * Creatinine was improving 1.8->1.6->1.4, worsened to 1.8 yesterday AM, now at 1.6. Per report, may have had obstructive process which contributed to WYATT * currently on 1/2NS, continue gentle fluids for now as tolerated * UA shows 1+ protein and large blood. Urine specific gravity is also high. * Follow-up results of renal ultrasound as well as vasculitis work-up, pending, hep panel WNL * Vent management as per ICU team * Patient is currently nonoliguric. Continue IV hydration as noted * Avoid nephrotoxins * Monitor fluid status and electrolytes closely * No indication for renal replacement therapy at this time Subjective Date of service: 08/06/21 Principal diagnosis: Ac hypoxemic resp failure ; AE-COPD; H/O CA Breast; DM II; HTN Interval history: Patient remains on the ventilator. Currently on 30% FiO2. Elizabeth catheter in place, draining urine well Objective - Exam Narrative Exam: General appearance: well-developed, well-nourished, intubated EENT: ATNC, PERRL Neck: no JVD, supple Respiratory: Present: coarse mechanical breath sounds Cardiology: regular, normal heart rate, S1S2, no murmurs Gastrointestinal: normal, normoactive bowel sounds Integumentary: other (No edema) - Vital Signs Vital signs: Vital Signs - 12hr 08/05/21 08/05/21 08/05/21 21:45 22:00 22:15 Temperature Pulse Rate 89 91 H 98 H Respiratory 16 16 15 Rate Blood Pressure 99/69 105/66 105/66 O2 Sat by Pulse 98 98 98 Oximetry 08/05/21 08/05/21 08/05/21 22:30 22:45 23:00 Temperature Pulse Rate 100 H 101 H 98 H Respiratory 16 16 16 Rate Blood Pressure 120/66 120/66 115/61 O2 Sat by Pulse 98 97 98 Oximetry 08/05/21 08/05/21 08/05/21 23:15 23:30 23:32 Temperature Pulse Rate 97 H 93 H 94 H Respiratory 16 16 16 Rate Blood Pressure 105/66 108/64 115/61 O2 Sat by Pulse 99 98 98 Oximetry 08/05/21 08/05/21 08/06/21 23:45 23:58 00:00 Temperature 98.0 F Pulse Rate 92 H 90 Respiratory 16 16 Rate Blood Pressure 115/61 108/62 O2 Sat by Pulse 98 98 Oximetry 08/06/21 08/06/21 08/06/21 00:15 00:30 00:45 Temperature Pulse Rate 89 87 88 Respiratory 16 16 16 Rate Blood Pressure 108/64 111/63 111/63 O2 Sat by Pulse 98 99 98 Oximetry 08/06/21 08/06/21 08/06/21 01:00 01:15 01:30 Temperature Pulse Rate 86 85 84 Respiratory 16 16 16 Rate Blood Pressure 111/61 108/62 107/61 O2 Sat by Pulse 99 98 99 Oximetry 08/06/21 08/06/21 08/06/21 01:46 02:00 02:15 Temperature Pulse Rate 85 84 84 Respiratory 16 16 16 Rate Blood Pressure 107/61 102/60 107/61 O2 Sat by Pulse 97 95 95 Oximetry 08/06/21 08/06/21 08/06/21 02:30 02:45 03:00 Temperature Pulse Rate 86 90 90 Respiratory 16 16 16 Rate Blood Pressure 109/58 109/58 112/62 O2 Sat by Pulse 95 95 96 Oximetry 08/06/21 08/06/21 08/06/21 03:07 03:15 03:31 Temperature Pulse Rate 90 92 H 110 H Respiratory 16 17 Rate Blood Pressure 112/62 112/62 112/62 O2 Sat by Pulse 96 96 99 Oximetry 08/06/21 08/06/21 08/06/21 03:45 04:00 04:01 Temperature 97.5 F L Pulse Rate 105 H 95 H 100 H Respiratory 17 16 Rate Blood Pressure 167/86 131/55 O2 Sat by Pulse 97 98 98 Oximetry 08/06/21 08/06/21 08/06/21 04:15 04:31 04:45 Temperature Pulse Rate 102 H 120 H 108 H Respiratory 11 L 13 23 Rate Blood Pressure 131/55 150/95 150/95 O2 Sat by Pulse 99 100 99 Oximetry 08/06/21 08/06/21 08/06/21 05:01 05:15 05:30 Temperature Pulse Rate 101 H 97 H 91 H Respiratory 13 15 18 Rate Blood Pressure 120/74 120/74 113/65 O2 Sat by Pulse 98 98 99 Oximetry 08/06/21 08:00 Temperature 98.1 F Pulse Rate Respiratory Rate Blood Pressure O2 Sat by Pulse Oximetry - Lab 08/06/21 05:00 08/06/21 05:00 Most recent lab results ABG pH 7.314 (7.320-7.450) L 08/05/21 04:00 ABG O2 Saturation 96.1 (0-100) 08/05/21 04:00 Calcium 8.2 mg/dL (8.4-10.2) L 08/06/21 05:00 Phosphorus 4.20 mg/dL (2.5-4.5) 08/05/21 04:50 Magnesium 2.60 mg/dL (1.7-2.3) H 08/05/21 04:50 Urine Creatinine 125.6 mg/dL (0.1-20.0) H 08/01/21 Unknown Urine Sodium 12 mmol/L 08/01/21 Unknown Medications & Allergies - Medications Allergies/Adverse Reactions: Allergies No Known Allergies Allergy (Verified 12/24/18 11:45) Home Medications: Home Medications Medication Instructions Recorded Confirmed Last Taken Type traMADoL [Ultram 50 MG tab] 50 mg PO Q6HR PRN #15 tablet 01/25/18 Unknown Rx Active Medications: Generic Name Dose Route Start Last Admin Trade Name Freq PRN Reason Stop Dose Admin Acetaminophen 650 mg 07/28/21 02:11 Acetaminophen 325 Mg Tab PO Q6H PRN Pain MILD(1-3)/Fever >100.5/GARCIA Albuterol/Ipratropium 1 ampul 07/28/21 14:00 08/05/21 20:29 Ipratropium/Albuterol Sulfate 3 Ml Ampul.Neb IH 1 ampul TID DEMIAN Administration Lipase/Protease/Amylase 1 each 07/29/21 13:01 Lipase 10,500/Protease 25,000/Amylase 43,750 (Units) Dr Campoverde FEEDTUBE PRN PRN For Clogged Feeding Tube Arformoterol Tartrate 15 mcg 07/28/21 20:00 08/05/21 20:29 Arformoterol 15 Mcg/2 Ml Nebu IH 15 mcg Q12HRT DEMIAN Administration Budesonide 0.5 mg 07/28/21 20:00 08/05/21 20:28 Budesonide 0.5 Mg/2 Ml Nebu IH 0.5 mg Q12HRT DEMIAN Administration Dextrose 50 ml 07/28/21 02:11 Dextrose 50% In Water (25gm) 50 Ml Syringe IV Q30MIN PRN Hypoglycemia Protocol Enoxaparin Sodium 100 mg 08/02/21 10:00 08/05/21 09:27 Enoxaparin 100 Mg/1 Ml Inj SUB-Q 100 mg Q24H DEMIAN Administration Protocol Famotidine 10 mg 08/02/21 10:00 08/05/21 21:40 Famotidine 20 Mg/2 Ml Inj IV 10 mg BID DEMIAN Administration Fentanyl 50 mcg 07/29/21 10:42 08/04/21 09:05 Fentanyl 100 Mcg/2 Ml Inj IV 50 mcg Q10MIN PRN Administration ANALGESIA Hydralazine HCl 10 mg 07/30/21 14:52 08/03/21 17:31 Hydralazine 20 Mg/1 Ml Inj IV 10 mg Q6H PRN Administration SBP > 165 Hydrophilic Ointment 1 applic 07/29/21 10:42 Lip Therapy Vaseline TP Q2HR PRN Dry Lips Fentanyl Citrate 2,000 mcg in 100 mls @ 5.35 mls/hr 07/29/21 11:00 08/06/21 03:20 Fentanyl Drip Premix IV 4 mcg/kg/hr TITR DEMIAN 21.4 mls/hr Administration Protocol 1 MCG/KG/HR Midazolam HCl 100 mg/ Sodium 100 mls @ 2 mls/hr 07/29/21 11:00 08/05/21 11:36 Chloride IV 2 mg/hr TITR DEMIAN 2 mls/hr Titration Protocol 2 MG/HR Norepinephrine 4 mg in 250 mls @ 7.5 mls/hr 07/29/21 21:00 Levophed Drip 4 Mg/Ns 250 Ml IV TITR DEMIAN Protocol 2 MCG/MIN Cefepime HCl 2 gm in 100 mls @ 200 mls/hr 08/02/21 10:00 08/05/21 22:08 Cefepime/Ns 2 Gm/100 Ml IV 08/07/21 22:29 Infused Q12H DEMIAN Infusion Protocol Sodium Chloride 1,000 mls @ 75 mls/hr 08/03/21 10:00 08/06/21 04:50 Nacl 0.45% 1000 Ml IV 75 mls/hr DIRECT DEMIAN Administration Insulin Glargine 30 units 08/05/21 22:00 08/05/21 21:39 Insulin Glargine 100 Units/Ml SUB-Q 30 units QHS DEMIAN Administration Insulin Human Lispro 0 unit 07/29/21 12:00 08/06/21 06:42 Insulin Lispro 100 Unit/Ml SUB-Q 3 unit Q6HR DEMIAN Administration Protocol Magnesium Hydroxide 30 ml 07/28/21 02:11 Magnesium Hydroxide (Mom) Oral Liqd Udc PO Q4H PRN Constipation Midazolam HCl 2 mg 07/29/21 10:42 08/05/21 09:19 Midazolam 2 Mg/2 Ml Inj IV 2 mg Q10MIN PRN Administration Sedation Multi-Ingred Cream/Lotion/Oil/Oint 1 applic 07/29/21 10:42 Mineral Oil/Petrolatum, White Ophth Oint 3.5 Gm OU Q4HR PRN Dry Eye(s) Ondansetron HCl 4 mg 07/28/21 02:11 Ondansetron 4 Mg/2 Ml Inj IV Q8H PRN Nausea And Vomiting Quetiapine Fumarate 200 mg 08/05/21 22:00 08/05/21 21:40 Quetiapine 200 Mg Tab PO 200 mg BID DEMIAN Administration Senna/Docusate Sodium 1 tab 07/29/21 22:00 08/05/21 21:40 Sennosides/Docusate Sodium 8.6/50 Mg Tab FEEDTUBE 1 tab BID DEMIAN Administration Simple Syrup 15 ml 07/29/21 13:01 Simple Syrup 15 Ml FEEDTUBE PRN PRN Hypoglycemia Simple Syrup 30 ml 07/29/21 13:01 Simple Syrup 15 Ml FEEDTUBE PRN PRN Hypoglycemia Sodium Bicarbonate 325 mg 07/29/21 13:01 Sodium Bicarbonate 325 Mg Tab FEEDTUBE PRN PRN For Clogged Feeding Tube Sodium Chloride 10 ml 07/28/21 10:00 08/05/21 21:40 Sodium Chloride 0.9% 10 Ml Flush Syringe IV 10 ml BID DEMIAN Administration Sodium Chloride 10 ml 07/28/21 02:05 Sodium Chloride 0.9% 10 Ml Flush Syringe IV PRN PRN LINE FLUSH
--- NOTE | 2021-08-06 10:43 | Progress Note ---
Assessment and Plan Acute hypoxemic respiratory failure Lung Mass -metastatic breast cancer Acute COPD exacerbation History of right breast cancer Leukocytosis DM II Hypertension Hyperlipidemia Tobacco use disorder [place] - continue daily SAT and SBT assessment as tolerated - continue to titrate supplemental oxygen to keep SpO2 88-90% - VAP bundle addressed, aspiration preacautions HOB >30 - continue lung protective strategies - continue bronchodilators (GLADIS & LABA) with pulmonary hygiene per RT - wean per pulmonary driven protocols otherwise - continue accuchecks with glycemic control per SSI (While critically ill target blood glucose of 140-180 mg/dL; avoid hypoglycemia) - sedation prn for target RASS -2 to -3 - avoid nephrotoxins, renally dose all medications - continue to avoid benzodiazepines, reduce the possibility of delirium - prn analgesia per CPOT score - Maintenance of sleep-wake cycle, avoid delirium - enteral nutritional support at goal rate as tolerated - Stress ulcer prophylaxis -VTE prophylaxis - PT/OT/ROM exercises - continue mobility per facility protocol, turning and off loading for pressure ulcer prevention - Monitor hemodynamics closely - continue other care per attending / other consultants COVID SPECIFIC INTERVENTIONS -Negative test CONDITION: CRITICAL PROGNOSIS: GUARDED CODE STATUS: FULL CODE Unable to get in touch with Dr. Wade will keep trying In the interim, place Surgery consult for tracheostomy. Updated her daughter this morning The high probability of a clinically significant, sudden or life-threatening deterioration of the [respiratory, cardiovascular, oncological & neurologic] system(s) required my full and direct attention, intervention and personal management. The aggregate critical care time was [33] minutes without overlap. Time includes spent on; [x] Data Review and interpretation [x] Patient assessment and monitoring of vital signs [x] Documentation [x] Medication orders and management Subjective Date of service: 08/06/21 Principal diagnosis: Ac hypoxemic resp failure ; AE-COPD; H/O CA Breast; DM II; HTN Interval history: Patient is seen today for: Acute hypoxemic respiratory failure; AE-COPD; Possible hypercapnia; H/O CA Breast; DM II; HTN Seen and examined at bedside; 24hour events reviewed; nursing and respiratory care staff consulted; no adverse overnight events reported to me; resting in bed; remains on MVS; sedated. Bronch results positive for metastatic breast disease 08/05/2021 No adverse events overnight. No fevers, no chills, no vomiting. Patient had low urine output overnight and Elizabeth catheter was changed this a.m.2 L of output Hematology/oncology spoke to family who wishes for aggressive care. Extreme agitation when sedation is held MVS: AC-VC 16/450/+6/30% 08/06/2021 No new overnight events,, remains on full support and sedation. On going agitation. No fevers, no diarrhea, no vomiting Extreme agitation when sedation is held MVS: AC-VC 16/450/+6/30% Objective Vital Signs - 12hr 08/05/21 08/05/21 08/05/21 22:45 23:00 23:15 Temperature Pulse Rate 101 H 98 H 97 H Respiratory 16 16 16 Rate Blood Pressure 120/66 115/61 105/66 O2 Sat by Pulse 97 98 99 Oximetry 08/05/21 08/05/21 08/05/21 23:30 23:32 23:45 Temperature Pulse Rate 93 H 94 H 92 H Respiratory 16 16 16 Rate Blood Pressure 108/64 115/61 115/61 O2 Sat by Pulse 98 98 98 Oximetry 08/05/21 08/06/21 08/06/21 23:58 00:00 00:15 Temperature 98.0 F Pulse Rate 90 89 Respiratory 16 16 Rate Blood Pressure 108/62 108/64 O2 Sat by Pulse 98 98 Oximetry 08/06/21 08/06/21 08/06/21 00:30 00:45 01:00 Temperature Pulse Rate 87 88 86 Respiratory 16 16 16 Rate Blood Pressure 111/63 111/63 111/61 O2 Sat by Pulse 99 98 99 Oximetry 08/06/21 08/06/21 08/06/21 01:15 01:30 01:46 Temperature Pulse Rate 85 84 85 Respiratory 16 16 16 Rate Blood Pressure 108/62 107/61 107/61 O2 Sat by Pulse 98 99 97 Oximetry 08/06/21 08/06/21 08/06/21 02:00 02:15 02:30 Temperature Pulse Rate 84 84 86 Respiratory 16 16 16 Rate Blood Pressure 102/60 107/61 109/58 O2 Sat by Pulse 95 95 95 Oximetry 08/06/21 08/06/21 08/06/21 02:45 03:00 03:07 Temperature Pulse Rate 90 90 90 Respiratory 16 16 Rate Blood Pressure 109/58 112/62 112/62 O2 Sat by Pulse 95 96 96 Oximetry 08/06/21 08/06/2121 03:15 03:31 03:45 Temperature Pulse Rate 92 H 110 H 105 H Respiratory 16 17 17 Rate Blood Pressure 112/62 112/62 167/86 O2 Sat by Pulse 96 99 97 Oximetry 08/06/21 08/06/21 08/06/21 04:00 04:01 04:15 Temperature 97.5 F L Pulse Rate 95 H 100 H 102 H Respiratory 16 11 L Rate Blood Pressure 131/55 131/55 O2 Sat by Pulse 98 98 99 Oximetry 08/06/21 08/06/21 08/06/21 04:31 04:45 05:01 Temperature Pulse Rate 120 H 108 H 101 H Respiratory 13 23 13 Rate Blood Pressure 150/95 150/95 120/74 O2 Sat by Pulse 100 99 98 Oximetry 08/06/21 08/06/21 08/06/21 05:15 05:30 08:00 Temperature 98.1 F Pulse Rate 97 H 91 H Respiratory 15 18 Rate Blood Pressure 120/74 113/65 O2 Sat by Pulse 98 99 Oximetry Constitutional: no acute distress, other (eldely obese female with mildy increased respiratory effort at rest on MVS) Eyes: non-icteric ENT: oropharynx moist, other (ETT 24 cm [place]) Neck: supple, no lymphadenopathy, no JVD Effort: mildly labored Ascultation: Bilateral: diminished breath sounds, wheezes (central), rales, rhonchi, other (prolonged expiratory phase) Percussion: Bilateral: not dull Cardiovascular: regular rate and rhythm, other (S1,S2) Gastrointestinal: normoactive bowel sounds, soft, non-tender, non-distended, other (anterior abdominal ecchymosis) Integumentary: normal Extremities: no cyanosis, no edema, pulses normal, other (ecchymosis) Neurologic: non-focal exam, pupils equal and round, other (moves all extemities, grossly non focal) Psychiatric: other (sedated) CBC and BMP: 08/06/21 05:00 08/06/21 05:00 ABG, PT/INR, D-dimer: ABG ABG pH 7.314 (7.320-7.450) L 08/05/21 04:00 POC ABG pCO2 48.9 mmHg (32.0-48.0) H 08/05/21 04:00 POC ABG pO2 89.1 mmHg (83-108) 08/05/21 04:00 POC ABG HCO3 24.3 08/05/21 04:00 ABG O2 Saturation 96.1 (0-100) 08/05/21 04:00 PT/INR, D-dimer PT 14.0 Sec. (12.2-14.9) 08/03/21 08:30 INR 1.03 (0.87-1.13) 08/03/21 08:30 D-Dimer 852.47 ng/mlDDU (0-234) H 07/29/21 07:17 Abnormal lab findings: Abnormal Labs 07/27/21 07/27/21 07/27/21 22:57 22:57 22:57 WBC 20.3 H RBC Hct RDW Lymph % (Auto) Lymph # (Auto) [place] # (Auto) Seg Neutrophils % Seg Neuts % (Manual) 89.0 H Lymphocytes % (Manual) 9.0 L Nucleated RBC % Seg Neutrophils # Seg Neutrophils # Man 18.1 H Lymphocytes # (Manual) Monocytes # (Manual) D-Dimer ABG pH POC ABG pCO2 POC ABG pO2 ABG Oxyhemoglobin ABG Sodium ABG Potassium ABG Chloride ABG Glucose Carboxyhemoglobin Potassium 3.5 L Chloride 96.9 L Carbon Dioxide 20 L BUN 19 H Creatinine Glucose 204 H POC Glucose Lactic Acid 7.20 H* Calcium Magnesium AST 98 H ALT 90 H Arterial Blood Glucose Arterial Blood Ionized Calcium Urine WBC (Auto) Urine Creatinine 07/28/21 07/28/21 07/28/21 01:31 07:49 10:00 WBC RBC Hct RDW Lymph % (Auto) Lymph # (Auto) [place] # (Auto) Seg Neutrophils % Seg Neuts % (Manual) Lymphocytes % (Manual) Nucleated RBC % Seg Neutrophils # Seg Neutrophils # Man Lymphocytes # (Manual) Monocytes # (Manual) D-Dimer ABG pH POC ABG pCO2 POC ABG pO2 ABG Oxyhemoglobin ABG Sodium ABG Potassium ABG Chloride ABG Glucose Carboxyhemoglobin Potassium Chloride Carbon Dioxide BUN Creatinine Glucose POC Glucose 194 H Lactic Acid 6.90 H* 6.70 H* Calcium Magnesium AST ALT Arterial Blood Glucose Arterial Blood Ionized Calcium Urine WBC (Auto) Urine Creatinine 07/28/21 07/28/21 07/28/21 12:41 13:21 16:21 WBC RBC Hct RDW Lymph % (Auto) Lymph # (Auto) [place] # (Auto) Seg Neutrophils % Seg Neuts % (Manual) Lymphocytes % (Manual) Nucleated RBC % Seg Neutrophils # Seg Neutrophils # Man Lymphocytes # (Manual) Monocytes # (Manual) D-Dimer ABG pH POC ABG pCO2 POC ABG pO2 ABG Oxyhemoglobin ABG Sodium ABG Potassium ABG Chloride ABG Glucose Carboxyhemoglobin Potassium Chloride Carbon Dioxide BUN Creatinine Glucose POC Glucose 159 H 155 H Lactic Acid 6.10 H* Calcium Magnesium AST ALT Arterial Blood Glucose Arterial Blood Ionized Calcium Urine WBC (Auto) Urine Creatinine 07/28/21 07/29/21 07/29/21 22:03 04:44 04:44 WBC 17.0 H RBC Hct RDW Lymph % (Auto) Lymph # (Auto) [place] # (Auto) Seg Neutrophils % Seg Neuts % (Manual) 82.0 H Lymphocytes % (Manual) 11.0 L Nucleated RBC % Seg Neutrophils # Seg Neutrophils # Man 13.9 H Lymphocytes # (Manual) Monocytes # (Manual) 1.0 H D-Dimer ABG pH POC ABG pCO2 POC ABG pO2 ABG Oxyhemoglobin ABG Sodium ABG Potassium ABG Chloride ABG Glucose Carboxyhemoglobin Potassium Chloride Carbon Dioxide BUN 23 H Creatinine Glucose 196 H POC Glucose 187 H Lactic Acid Calcium Magnesium AST ALT Arterial Blood Glucose Arterial Blood Ionized Calcium Urine WBC (Auto) Urine Creatinine 07/29/21 07/29/21 07/29/21 06:56 07:17 07:17 WBC 26.1 H RBC Hct 43.3 H RDW 16.0 H Lymph % (Auto) Lymph # (Auto) [place] # (Auto) Seg Neutrophils % Seg Neuts % (Manual) 80.0 H Lymphocytes % (Manual) Nucleated RBC % Seg Neutrophils # Seg Neutrophils # Man 20.9 H Lymphocytes # (Manual) Monocytes # (Manual) D-Dimer ABG pH POC ABG pCO2 POC ABG pO2 ABG Oxyhemoglobin ABG Sodium ABG Potassium ABG Chloride ABG Glucose Carboxyhemoglobin Potassium Chloride Carbon Dioxide 20 L D BUN 23 H Creatinine Glucose 308 H POC Glucose 165 H Lactic Acid Calcium Magnesium AST ALT Arterial Blood Glucose Arterial Blood Ionized Calcium Urine WBC (Auto) Urine Creatinine 07/29/21 07/29/21 07/29/21 07:17 09:16 10:30 WBC RBC Hct RDW Lymph % (Auto) Lymph # (Auto) [place] # (Auto) Seg Neutrophils % Seg Neuts % (Manual) Lymphocytes % (Manual) Nucleated RBC % Seg Neutrophils # Seg Neutrophils # Man Lymphocytes # (Manual) Monocytes # (Manual) D-Dimer 852.47 H ABG pH 7.236 L POC ABG pCO2 56.0 H POC ABG pO2 266.4 H ABG Oxyhemoglobin 99.1 H ABG Sodium 132.3 L ABG Potassium 4.9 H ABG Chloride ABG Glucose 202 H Carboxyhemoglobin 0.2 L Potassium Chloride Carbon Dioxide BUN Creatinine Glucose POC Glucose 271 H Lactic Acid Calcium Magnesium AST ALT Arterial Blood Glucose 202 H Arterial Blood Ionized Calcium Urine WBC (Auto) Urine Creatinine 07/29/21 07/29/21 07/30/21 17:54 23:32 05:08 WBC RBC Hct RDW Lymph % (Auto) Lymph # (Auto) [place] # (Auto) Seg Neutrophils % Seg Neuts % (Manual) Lymphocytes % (Manual) Nucleated RBC % Seg Neutrophils # Seg Neutrophils # Man Lymphocytes # (Manual) Monocytes # (Manual) D-Dimer ABG pH POC ABG pCO2 POC ABG pO2 ABG Oxyhemoglobin ABG Sodium ABG Potassium ABG Chloride ABG Glucose Carboxyhemoglobin Potassium Chloride Carbon Dioxide BUN Creatinine Glucose POC Glucose 168 H 205 H 214 H Lactic Acid Calcium Magnesium AST ALT Arterial Blood Glucose Arterial Blood Ionized Calcium Urine WBC (Auto) Urine Creatinine 07/30/21 07/30/21 07/30/21 06:01 11:32 17:34 WBC RBC Hct RDW Lymph % (Auto) Lymph # (Auto) [place] # (Auto) Seg Neutrophils % Seg Neuts % (Manual) Lymphocytes % (Manual) Nucleated RBC % Seg Neutrophils # Seg Neutrophils # Man Lymphocytes # (Manual) Monocytes # (Manual) D-Dimer ABG pH 7.480 H POC ABG pCO2 23.6 L POC ABG pO2 280.0 H ABG Oxyhemoglobin 99.3 H ABG Sodium 133.7 L ABG Potassium ABG Chloride ABG Glucose 232 H Carboxyhemoglobin 0 L Potassium Chloride Carbon Dioxide BUN Creatinine Glucose POC Glucose 207 H 239 H Lactic Acid Calcium Magnesium AST ALT Arterial Blood Glucose 232 H Arterial Blood Ionized Calcium 4.4 L Urine WBC (Auto) Urine Creatinine 07/30/21 07/31/21 07/31/21 23:39 03:34 04:45 WBC 15.0 H RBC Hct RDW 15.5 H Lymph % (Auto) Lymph # (Auto) [place] # (Auto) Seg Neutrophils % Seg Neuts % (Manual) 89.0 H Lymphocytes % (Manual) 7.0 L Nucleated RBC % Seg Neutrophils # Seg Neutrophils # Man 13.4 H Lymphocytes # (Manual) 1.1 L Monocytes # (Manual) D-Dimer ABG pH 7.481 H POC ABG pCO2 31.8 L POC ABG pO2 ABG Oxyhemoglobin ABG Sodium 135.2 L ABG Potassium 3.3 L ABG Chloride ABG Glucose 188 H Carboxyhemoglobin 0.1 L Potassium Chloride Carbon Dioxide BUN Creatinine Glucose POC Glucose 176 H Lactic Acid Calcium Magnesium AST ALT Arterial Blood Glucose 188 H Arterial Blood Ionized Calcium 4.4 L Urine WBC (Auto) Urine Creatinine 07/31/21 07/31/21 07/31/21 04:45 04:45 11:28 WBC RBC Hct RDW Lymph % (Auto) Lymph # (Auto) [place] # (Auto) Seg Neutrophils % Seg Neuts % (Manual) Lymphocytes % (Manual) Nucleated RBC % Seg Neutrophils # Seg Neutrophils # Man Lymphocytes # (Manual) Monocytes # (Manual) D-Dimer ABG pH POC ABG pCO2 POC ABG pO2 ABG Oxyhemoglobin ABG Sodium ABG Potassium ABG Chloride ABG Glucose Carboxyhemoglobin Potassium 3.4 L Chloride Carbon Dioxide BUN 61 H Creatinine 2.6 H D Glucose 176 H POC Glucose 195 H 245 H Lactic Acid Calcium Magnesium AST ALT Arterial Blood Glucose Arterial Blood Ionized Calcium Urine WBC (Auto) Urine Creatinine 07/31/21 07/31/21 08/01/21 17:32 23:58 01:00 WBC RBC Hct RDW Lymph % (Auto) Lymph # (Auto) [place] # (Auto) Seg Neutrophils % Seg Neuts % (Manual) Lymphocytes % (Manual) Nucleated RBC % Seg Neutrophils # Seg Neutrophils # Man Lymphocytes # (Manual) Monocytes # (Manual) D-Dimer ABG pH POC ABG pCO2 POC ABG pO2 ABG Oxyhemoglobin ABG Sodium ABG Potassium ABG Chloride ABG Glucose 284 H Carboxyhemoglobin 0.3 L Potassium Chloride Carbon Dioxide BUN Creatinine Glucose POC Glucose 251 H 294 H Lactic Acid Calcium Magnesium AST ALT Arterial Blood Glucose 284 H Arterial Blood Ionized Calcium Urine WBC (Auto) Urine Creatinine 08/01/21 08/01/21 08/01/21 05:50 05:50 06:11 WBC 16.2 H RBC Hct RDW 15.5 H Lymph % (Auto) Lymph # (Auto) [place] # (Auto) Seg Neutrophils % Seg Neuts % (Manual) 93.0 H Lymphocytes % (Manual) 2.0 L Nucleated RBC % 3.0 H Seg Neutrophils # Seg Neutrophils # Man 15.1 H Lymphocytes # (Manual) 0.3 L Monocytes # (Manual) D-Dimer ABG pH POC ABG pCO2 POC ABG pO2 ABG Oxyhemoglobin ABG Sodium ABG Potassium ABG Chloride ABG Glucose Carboxyhemoglobin Potassium Chloride Carbon Dioxide BUN 64 H Creatinine 1.9 H Glucose 277 H POC Glucose 256 H Lactic Acid Calcium Magnesium AST ALT Arterial Blood Glucose Arterial Blood Ionized Calcium Urine WBC (Auto) Urine Creatinine 08/01/21 08/01/21 08/01/21 11:39 17:25 23:53 WBC RBC Hct RDW Lymph % (Auto) Lymph # (Auto) [place] # (Auto) Seg Neutrophils % Seg Neuts % (Manual) Lymphocytes % (Manual) Nucleated RBC % Seg Neutrophils # Seg Neutrophils # Man Lymphocytes # (Manual) Monocytes # (Manual) D-Dimer ABG pH POC ABG pCO2 POC ABG pO2 ABG Oxyhemoglobin ABG Sodium ABG Potassium ABG Chloride ABG Glucose Carboxyhemoglobin Potassium Chloride Carbon Dioxide BUN Creatinine Glucose POC Glucose 289 H 275 H 327 H Lactic Acid Calcium Magnesium AST ALT Arterial Blood Glucose Arterial Blood Ionized Calcium Urine WBC (Auto) Urine Creatinine 08/01/21 08/02/21 08/02/21 Unknown 04:00 12:03 WBC RBC Hct RDW Lymph % (Auto) Lymph # (Auto) [place] # (Auto) Seg Neutrophils % Seg Neuts % (Manual) Lymphocytes % (Manual) Nucleated RBC % Seg Neutrophils # Seg Neutrophils # Man Lymphocytes # (Manual) Monocytes # (Manual) D-Dimer ABG pH POC ABG pCO2 POC ABG pO2 ABG Oxyhemoglobin ABG Sodium ABG Potassium ABG Chloride ABG Glucose 325 H Carboxyhemoglobin 0.4 L Potassium Chloride Carbon Dioxide BUN Creatinine Glucose POC Glucose 209 H Lactic Acid Calcium Magnesium AST ALT Arterial Blood Glucose 325 H Arterial Blood Ionized Calcium Urine WBC (Auto) Urine Creatinine 125.6 H 08/02/21 08/02/21 08/02/21 15:30 17:03 23:17 WBC RBC Hct RDW Lymph % (Auto) Lymph # (Auto) [place] # (Auto) Seg Neutrophils % Seg Neuts % (Manual) Lymphocytes % (Manual) Nucleated RBC % Seg Neutrophils # Seg Neutrophils # Man Lymphocytes # (Manual) Monocytes # (Manual) D-Dimer ABG pH POC ABG pCO2 POC ABG pO2 ABG Oxyhemoglobin ABG Sodium ABG Potassium ABG Chloride ABG Glucose Carboxyhemoglobin Potassium Chloride Carbon Dioxide BUN Creatinine Glucose POC Glucose 210 H 265 H Lactic Acid Calcium Magnesium AST ALT Arterial Blood Glucose Arterial Blood Ionized Calcium Urine WBC (Auto) 47.0 H Urine Creatinine 08/02/21 08/02/21 08/03/21 Unknown Unknown 04:17 WBC 14.1 H RBC Hct RDW 16.3 H Lymph % (Auto) 5.1 L Lymph # (Auto) 0.7 L [place] # (Auto) 0.9 H Seg Neutrophils % 88.7 H Seg Neuts % (Manual) Lymphocytes % (Manual) Nucleated RBC % Seg Neutrophils # 12.5 H Seg Neutrophils # Man Lymphocytes # (Manual) Monocytes # (Manual) D-Dimer ABG pH POC ABG pCO2 POC ABG pO2 ABG Oxyhemoglobin ABG Sodium ABG Potassium ABG Chloride ABG Glucose Carboxyhemoglobin Potassium Chloride Carbon Dioxide BUN 72 H 72 H Creatinine 1.8 H 1.6 H Glucose 307 H 263 H POC Glucose Lactic Acid Calcium Magnesium AST ALT Arterial Blood Glucose Arterial Blood Ionized Calcium Urine WBC (Auto) Urine Creatinine 08/03/21 08/03/21 08/03/21 04:17 05:30 08:30 WBC 13.9 H RBC Hct RDW 16.0 H Lymph % (Auto) Lymph # (Auto) [place] # (Auto) Seg Neutrophils % Seg Neuts % (Manual) Lymphocytes % (Manual) Nucleated RBC % Seg Neutrophils # Seg Neutrophils # Man Lymphocytes # (Manual) Monocytes # (Manual) D-Dimer ABG pH POC ABG pCO2 POC ABG pO2 ABG Oxyhemoglobin ABG Sodium ABG Potassium ABG Chloride ABG Glucose Carboxyhemoglobin Potassium Chloride Carbon Dioxide BUN Creatinine Glucose POC Glucose 280 H Lactic Acid Calcium Magnesium 3.00 H AST ALT Arterial Blood Glucose Arterial Blood Ionized Calcium Urine WBC (Auto) Urine Creatinine 08/03/21 08/03/21 08/03/21 12:14 13:39 15:11 WBC RBC Hct RDW Lymph % (Auto) Lymph # (Auto) [place] # (Auto) Seg Neutrophils % Seg Neuts % (Manual) Lymphocytes % (Manual) Nucleated RBC % Seg Neutrophils # Seg Neutrophils # Man Lymphocytes # (Manual) Monocytes # (Manual) D-Dimer ABG pH POC ABG pCO2 POC ABG pO2 ABG Oxyhemoglobin ABG Sodium ABG Potassium ABG Chloride ABG Glucose 306 H Carboxyhemoglobin 0.3 L Potassium Chloride Carbon Dioxide BUN Creatinine Glucose POC Glucose 287 H Lactic Acid 2.10 H* Calcium Magnesium AST ALT Arterial Blood Glucose 306 H Arterial Blood Ionized Calcium Urine WBC (Auto) Urine Creatinine 08/03/21 08/03/21 08/04/21 16:52 23:08 04:00 WBC RBC Hct RDW Lymph % (Auto) Lymph # (Auto) [place] # (Auto) Seg Neutrophils % Seg Neuts % (Manual) Lymphocytes % (Manual) Nucleated RBC % Seg Neutrophils # Seg Neutrophils # Man Lymphocytes # (Manual) Monocytes # (Manual) D-Dimer ABG pH POC ABG pCO2 54.3 H POC ABG pO2 82.2 L ABG Oxyhemoglobin ABG Sodium 145.1 H ABG Potassium 5.0 H ABG Chloride ABG Glucose 316 H Carboxyhemoglobin 0.3 L Potassium Chloride Carbon Dioxide BUN Creatinine Glucose POC Glucose 282 H 289 H Lactic Acid Calcium Magnesium AST ALT Arterial Blood Glucose 316 H Arterial Blood Ionized Calcium Urine WBC (Auto) Urine Creatinine 08/04/21 08/04/21 08/04/21 04:38 04:38 05:19 WBC 17.7 H RBC Hct RDW 16.5 H Lymph % (Auto) Lymph # (Auto) [place] # (Auto) Seg Neutrophils % Seg Neuts % (Manual) Lymphocytes % (Manual) Nucleated RBC % Seg Neutrophils # Seg Neutrophils # Man Lymphocytes # (Manual) Monocytes # (Manual) D-Dimer ABG pH POC ABG pCO2 POC ABG pO2 ABG Oxyhemoglobin ABG Sodium ABG Potassium ABG Chloride ABG Glucose Carboxyhemoglobin Potassium Chloride 108.3 H Carbon Dioxide BUN 76 H Creatinine 1.4 H Glucose 310 H POC Glucose 268 H Lactic Acid Calcium Magnesium 2.70 H AST ALT Arterial Blood Glucose Arterial Blood Ionized Calcium Urine WBC (Auto) Urine Creatinine 08/04/21 08/04/21 08/04/21 11:48 16:41 23:49 WBC RBC Hct RDW Lymph % (Auto) Lymph # (Auto) [place] # (Auto) Seg Neutrophils % Seg Neuts % (Manual) Lymphocytes % (Manual) Nucleated RBC % Seg Neutrophils # Seg Neutrophils # Man Lymphocytes # (Manual) Monocytes # (Manual) D-Dimer ABG pH POC ABG pCO2 POC ABG pO2 ABG Oxyhemoglobin ABG Sodium ABG Potassium ABG Chloride ABG Glucose Carboxyhemoglobin Potassium Chloride Carbon Dioxide BUN Creatinine Glucose POC Glucose 197 H 208 H 209 H Lactic Acid Calcium Magnesium AST ALT Arterial Blood Glucose Arterial Blood Ionized Calcium Urine WBC (Auto) Urine Creatinine 08/05/21 08/05/21 08/05/21 04:00 04:50 04:50 WBC 19.0 H RBC Hct RDW 17.0 H Lymph % (Auto) Lymph # (Auto) [place] # (Auto) Seg Neutrophils % Seg Neuts % (Manual) 75.0 H Lymphocytes % (Manual) 2.0 L Nucleated RBC % Seg Neutrophils # Seg Neutrophils # Man 14.3 H Lymphocytes # (Manual) 0.4 L Monocytes # (Manual) 1.0 H D-Dimer ABG pH 7.314 L POC ABG pCO2 48.9 H POC ABG pO2 ABG Oxyhemoglobin ABG Sodium ABG Potassium 5.0 H ABG Chloride 109.0 H ABG Glucose 234 H Carboxyhemoglobin 0.4 L Potassium 5.2 H Chloride 110.0 H Carbon Dioxide BUN 90 H Creatinine 1.8 H Glucose 235 H POC Glucose Lactic Acid Calcium Magnesium 2.60 H AST ALT Arterial Blood Glucose 234 H Arterial Blood Ionized Calcium Urine WBC (Auto) Urine Creatinine 08/05/21 08/05/21 08/05/21 06:05 12:02 17:08 WBC RBC Hct RDW Lymph % (Auto) Lymph # (Auto) [place] # (Auto) Seg Neutrophils % Seg Neuts % (Manual) Lymphocytes % (Manual) Nucleated RBC % Seg Neutrophils # Seg Neutrophils # Man Lymphocytes # (Manual) Monocytes # (Manual) D-Dimer ABG pH POC ABG pCO2 POC ABG pO2 ABG Oxyhemoglobin ABG Sodium ABG Potassium ABG Chloride ABG Glucose Carboxyhemoglobin Potassium Chloride Carbon Dioxide BUN Creatinine Glucose POC Glucose 225 H 193 H 263 H Lactic Acid Calcium Magnesium AST ALT Arterial Blood Glucose Arterial Blood Ionized Calcium Urine WBC (Auto) Urine Creatinine 08/05/21 08/06/21 08/06/21 23:34 05:00 05:00 WBC 16.8 H RBC 3.64 L Hct RDW 16.6 H Lymph % (Auto) Lymph # (Auto) [place] # (Auto) Seg Neutrophils % Seg Neuts % (Manual) Lymphocytes % (Manual) Nucleated RBC % Seg Neutrophils # Seg Neutrophils # Man Lymphocytes # (Manual) Monocytes # (Manual) D-Dimer ABG pH POC ABG pCO2 POC ABG pO2 ABG Oxyhemoglobin ABG Sodium ABG Potassium ABG Chloride ABG Glucose Carboxyhemoglobin Potassium Chloride 109.3 H Carbon Dioxide BUN 89 H Creatinine 1.6 H Glucose 197 H POC Glucose 224 H Lactic Acid Calcium 8.2 L Magnesium AST ALT Arterial Blood Glucose Arterial Blood Ionized Calcium Urine WBC (Auto) Urine Creatinine 08/06/21 05:26 WBC RBC Hct RDW Lymph % (Auto) Lymph # (Auto) [place] # (Auto) Seg Neutrophils % Seg Neuts % (Manual) Lymphocytes % (Manual) Nucleated RBC % Seg Neutrophils # Seg Neutrophils # Man Lymphocytes # (Manual) Monocytes # (Manual) D-Dimer ABG pH POC ABG pCO2 POC ABG pO2 ABG Oxyhemoglobin ABG Sodium ABG Potassium ABG Chloride ABG Glucose Carboxyhemoglobin Potassium Chloride Carbon Dioxide BUN Creatinine Glucose POC Glucose 168 H Lactic Acid Calcium Magnesium AST ALT Arterial Blood Glucose Arterial Blood Ionized Calcium Urine WBC (Auto) Urine Creatinine Chest x-ray: image reviewed Allied health notes reviewed: RT
[2021-08-06] MEDS: FAMOTIDINE 20 MG/2 ML INJ IV SCH ×2 (11:06→21:45)
[2021-08-06] MEDS: ENOXAPARIN 100 MG/1 ML INJ SUB-Q SCH (11:07)
[2021-08-06] MEDS: QUEtiapine 200 MG TAB PO SCH ×2 (11:08→21:45)
[2021-08-06] MEDS: SENNOSIDES/DOCUSATE SODIUM 8.6/50 MG TAB FEEDTUBE SCH ×2 (11:08→21:45)
[2021-08-06] MEDS: CEFEPIME/NS 2 GM/100 ML 2 GM/100 ML BAG IV SCH ×2 (11:09→21:48)
[2021-08-06] MEDS: ARFORMOTEROL 15 MCG/2 ML NEBU IH SCH ×2 (12:48→20:29)
[2021-08-06] MEDS: BUDESONIDE 0.5 MG/2 ML NEBU IH SCH ×2 (12:48→20:29)
[2021-08-06] MEDS: IPRATROPIUM/ALBUTEROL SULFATE 3 ML AMPUL.NEB IH SCH ×3 (12:49→20:29)
--- NOTE | 2021-08-06 14:43 | Consultation ---
History of Present Illness Consult date: 08/06/21 Reason for consult: other (trach) Chief complaint: vent dependence - History of present illness History of present illness: 66-year-old female with a past medical history of breast cancer, COPD who presen salvador to the emergency room on 07/27/2021 with complaints of shortness of breath. Patient had respiratory decompensation and was intubated on 07/29/2021 after a CODE BLUE. On work-up including chest x-ray patient found to have a right upper lobe mass. Further work-up with lung mass biopsy has revealed metastatic breast cancer, triple negative. Patient also diagnosed with left lower extremity DVT and started on therapeutic Lovenox. Patient remains intubated and sedated, therefore all the history is obtained from the chart. She has not been able to be weaned from the ventilator due to agitation. Oncology has been consulted and most recent note states that patient is not a good candidate for chemotherapy and end-of-life discussion may be appropriate. Surgery is consulted to evaluate patient for tracheostomy. She is tolerating TF at goal. Patient is apparently followed by oncologist Dr. Wade at [facility] for breast cancer. Per notes, physicians have not been able to make contact with Dr. Wade yet. Past History Past Medical History: COPD, diabetes, hypertension, hyperlipidemia, other (History of right breast cancer) Past Surgical History: cholecystectomy, hysterectomy, mastectomy, tonsillectomy Social history: smoking (Current daily smoker) Family history: no significant family history Medications and Allergies Allergies Allergy/AdvReac Type Severity Reaction Status Date / Time No Known Allergies Allergy Verified 12/24/18 11:45 Home Medications Medication Instructions Recorded Confirmed Last Taken Type traMADoL [Ultram 50 MG tab] 50 mg PO Q6HR PRN #15 tablet 01/25/18 Unknown Rx Active Meds: Active Medications Acetaminophen (Acetaminophen 325 Mg Tab) 650 mg PO Q6H PRN PRN Reason: Pain MILD(1-3)/Fever >100.5/GARCIA Albuterol/Ipratropium (Ipratropium/Albuterol Sulfate 3 Ml Ampul.Neb) 1 ampul IH TID DEMIAN Last Admin: 08/06/21 12:49 Dose: 1 ampul Documented by: Lipase/Protease/Amylase (Lipase 10,500/Protease 25,000/Amylase 43,750 (Units) Dr Campoverde) 1 each FEEDTUBE PRN PRN PRN Reason: For Clogged Feeding Tube Arformoterol Tartrate (Arformoterol 15 Mcg/2 Ml Nebu) 15 mcg IH Q12HRT DEMIAN Last Admin: 08/06/21 12:48 Dose: 15 mcg Documented by: Budesonide (Budesonide 0.5 Mg/2 Ml Nebu) 0.5 mg IH Q12HRT DEMIAN Last Admin: 08/06/21 12:48 Dose: 0.5 mg Documented by: Dextrose (Dextrose 50% In Water (25gm) 50 Ml Syringe) 50 ml IV Q30MIN PRN; Protocol PRN Reason: Hypoglycemia Enoxaparin Sodium (Enoxaparin 100 Mg/1 Ml Inj) 100 mg SUB-Q Q24H DEMIAN; Protocol Last Admin: 08/06/21 11:07 Dose: 100 mg Documented by: Famotidine (Famotidine 20 Mg/2 Ml Inj) 10 mg IV BID DEMIAN Last Admin: 08/06/21 11:06 Dose: 10 mg Documented by: Fentanyl (Fentanyl 100 Mcg/2 Ml Inj) 50 mcg IV Q10MIN PRN PRN Reason: ANALGESIA Last Admin: 08/04/21 09:05 Dose: 50 mcg Documented by: Hydralazine HCl (Hydralazine 20 Mg/1 Ml Inj) 10 mg IV Q6H PRN PRN Reason: SBP > 165 Last Admin: 08/03/21 17:31 Dose: 10 mg Documented by: Hydrophilic Ointment (Lip Therapy Vaseline) 1 applic TP Q2HR PRN PRN Reason: Dry Lips Fentanyl Citrate (Fentanyl Drip Premix) 2,000 mcg in 100 mls @ 5.35 mls/hr IV TITR DEMIAN; Protocol Last Admin: 08/06/21 13:43 Dose: 4 mcg/kg/hr, 21.4 mls/hr Documented by: Midazolam HCl 100 mg/ Sodium (Chloride) 100 mls @ 2 mls/hr IV TITR DEMIAN; Protocol Last Titration: 08/05/21 11:36 Dose: 2 mg/hr, 2 mls/hr Documented by: Norepinephrine (Levophed Drip 4 Mg/Ns 250 Ml) 4 mg in 250 mls @ 7.5 mls/hr IV TITR DEMIAN; Protocol Cefepime HCl (Cefepime/Ns 2 Gm/100 Ml) 2 gm in 100 mls @ 200 mls/hr IV Q12H DEMIAN; Protocol Stop: 08/07/21 22:29 Last Admin: 08/06/21 11:09 Dose: 200 mls/hr Documented by: Sodium Chloride (Nacl 0.45% 1000 Ml) 1,000 mls @ 75 mls/hr IV DIRECT [facility] Last Admin: 08/06/21 04:50 Dose: 75 mls/hr Documented by: Insulin Glargine (Insulin Glargine 100 Units/Ml) 30 units SUB-Q QHS [facility] Last Admin: 08/05/21 21:39 Dose: 30 units Documented by: Insulin Human Lispro (Insulin Lispro 100 Unit/Ml) 0 unit SUB-Q Q6HR [facility]; Protocol Last Admin: 08/06/21 13:43 Dose: 4 unit Documented by: Magnesium Hydroxide (Magnesium Hydroxide (Mom) Oral Liqd Udc) 30 ml PO Q4H PRN PRN Reason: Constipation Midazolam HCl (Midazolam 2 Mg/2 Ml Inj) 2 mg IV Q10MIN PRN PRN Reason: Sedation Last Admin: 08/05/21 09:19 Dose: 2 mg Documented by: Multi-Ingred Cream/Lotion/Oil/Oint (Mineral Oil/Petrolatum, White Ophth Oint 3.5 Gm) 1 applic OU Q4HR PRN PRN Reason: Dry Eye(s) Ondansetron HCl (Ondansetron 4 Mg/2 Ml Inj) 4 mg IV Q8H PRN PRN Reason: Nausea And Vomiting Quetiapine Fumarate (Quetiapine 200 Mg Tab) 200 mg PO BID [facility] Last Admin: 08/06/21 11:08 Dose: 200 mg Documented by: Senna/Docusate Sodium (Sennosides/Docusate Sodium 8.6/50 Mg Tab) 1 tab FEEDTUBE BID [facility] Last Admin: 08/06/21 11:08 Dose: 1 tab Documented by: Simple Syrup (Simple Syrup 15 Ml) 15 ml FEEDTUBE PRN PRN PRN Reason: Hypoglycemia Simple Syrup (Simple Syrup 15 Ml) 30 ml FEEDTUBE PRN PRN PRN Reason: Hypoglycemia Sodium Bicarbonate (Sodium Bicarbonate 325 Mg Tab) 325 mg FEEDTUBE PRN PRN PRN Reason: For Clogged Feeding Tube Sodium Chloride (Sodium Chloride 0.9% 10 Ml Flush Syringe) 10 ml IV BID [facility] Last Admin: 08/06/21 11:11 Dose: 10 ml Documented by: Sodium Chloride (Sodium Chloride 0.9% 10 Ml Flush Syringe) 10 ml IV PRN PRN PRN Reason: LINE FLUSH Review of Systems ROS unobtainable: due to endotracheal tube, due to mental status Exam Vital Signs Pulse Ox 100 07/27/21 22:27 Narrative exam: Gen.: Intubated, sedated. No apparent distress ENT: Trachea midline. No lymphadenopathy. No scleral icterus or conjunctival pallor. ET tube and NG tube in place. CV: S1, S2 present Respiratory: No audible wheezes Abdomen: Soft, nondistended, nontender, obese. Well-healed right subcostal scar. No rebound, rigidity, guarding Extremities: No clubbing, cyanosis, edema Results - Labs 08/06/21 05:00 08/06/21 05:00 Abnormal lab results 08/05/21 08/05/21 08/06/21 Range/Units 17:08 23:34 05:00 WBC (4.5-11.0) K/mm3 RBC (3.65-5.03) M/mm3 RDW (13.2-15.2) % Chloride 109.3 H (98-107) mmol/L BUN 89 H (7-17) mg/dL Creatinine 1.6 H (0.6-1.2) mg/dL Glucose 197 H (65-100) mg/dL POC Glucose 263 H 224 H (70-105) mg/dL Calcium 8.2 L (8.4-10.2) mg/dL 08/06/21 08/06/21 08/06/21 Range/Units 05:00 05:26 11:38 WBC 16.8 H (4.5-11.0) K/mm3 RBC 3.64 L (3.65-5.03) M/mm3 RDW 16.6 H (13.2-15.2) % Chloride (98-107) mmol/L BUN (7-17) mg/dL Creatinine (0.6-1.2) mg/dL Glucose (65-100) mg/dL POC Glucose 168 H 160 H (70-105) mg/dL Calcium (8.4-10.2) mg/dL Diabetes panel 08/06/21 Range/Units 05:00 Sodium 145 (137-145) mmol/L Potassium 4.2 (3.6-5.0) mmol/L Chloride 109.3 H (98-107) mmol/L Carbon Dioxide 27 (22-30) mmol/L BUN 89 H (7-17) mg/dL Creatinine 1.6 H (0.6-1.2) mg/dL Glucose 197 H (65-100) mg/dL Calcium 8.2 L (8.4-10.2) mg/dL Calcium panel 08/06/21 Range/Units 05:00 Calcium 8.2 L (8.4-10.2) mg/dL Pituitary panel 08/06/21 Range/Units 05:00 Sodium 145 (137-145) mmol/L Potassium 4.2 (3.6-5.0) mmol/L Chloride 109.3 H (98-107) mmol/L Carbon Dioxide 27 (22-30) mmol/L BUN 89 H (7-17) mg/dL Creatinine 1.6 H (0.6-1.2) mg/dL Glucose 197 H (65-100) mg/dL Calcium 8.2 L (8.4-10.2) mg/dL Adrenal panel 08/06/21 Range/Units 05:00 Sodium 145 (137-145) mmol/L Potassium 4.2 (3.6-5.0) mmol/L Chloride 109.3 H (98-107) mmol/L Carbon Dioxide 27 (22-30) mmol/L BUN 89 H (7-17) mg/dL Creatinine 1.6 H (0.6-1.2) mg/dL Glucose 197 H (65-100) mg/dL Calcium 8.2 L (8.4-10.2) mg/dL - Imaging Chest x-ray: report reviewed, image reviewed CT scan - chest: report reviewed, image reviewed Assessment and Plan 66-year-old female with 1. vent dependent respiratory failure 2. Metastatic breast cancer to lung 3. LE DVT Plan: 1. Continue care as per ICU team and consultants 2. Per onc notes patient is not a good candidate for chemotherapy. Team is trying to reach patient's established oncologist Dr. Wade. 3. Will discuss tracheostomy and PEG tube placement with family. If agreeable, will plan for some time this week. Patient has a very poor prognosis 2/2 met breast cancer to lung, triple negative markers, and as she is not a good candidate for adjuvant therapy at this time. Thank you for this consultation. Please call with any questions or concerns. Evaluation and treatment of this patient was during the time of the national and state emergency arising from COVID19 coronavirus pandemic. Treatment and procedu res performed meet the current and available best practice and guidelines for patient during the COVID pandemic.
--- NOTE | 2021-08-06 15:55 | Progress Note ---
<AMYKIMMY CalvoEtelvina - Last Filed: 08/06/21 15:57> Assessment and Plan Assessment and plan: This is a 66-year-old female with HTN, DM, HLD and COPD admitted for acute hypoxic respiratory failure, COPD exacerbation, pneumonia and left lower leg DVT Neuro: Acute metabolic encephalopathy -Sedated with Versed and fentanyl, Seroquel -RASS goal -2 to -3 -Avoid delirium -Reorientation as needed -Bilateral restraints for safety Cardio: h/o HTN, s/p cardiac arrest, h/o HLD -Echocardiogram completed-> EF 50 to 55% with mild diastolic dysfunction -Blood pressure monitor per protocol -Patient had cardiac arrest on 07/29 and was intubated -Antihypertensives prn Respiratory: Acute hypoxic respiratory failure, COPD exacerbation -CCM consulted, appreciate recommendations -VAP bundle -Daily SBT and SAT trials as tolerated -A.m. vent settings: Assist-control, rate 16, tidal volume 450, PEEP 6, FiO2 30% -Intubated with 7.50 ETT at 22 at the lips on 07/29 -Daily ABG and CXR -Continue SPO2 monitoring -Solu-Medrol -Surgery consult for possible trach GI: MO -NTR consult for tube feeding -BR: Senokot -24-hour net +[phone] -PPI : Acute kidney injury likely 2/2 vasomotor nephropathy -Nephrology consulted, appreciate recommendations -Presented with a BUN/creatinine of 1.9/19 but up trended to 2.6/61 on 07/31 -08/01 FeNA calculated at 0.13-> indicating prerenal -Strict intake and output -Avoid nephrotoxic medications -Renally dose medications -Elizabeth in place; Elizabeth changed on 08/05 ID: Acute sepsis, pneumonia -Infectious disease consulted patient recommendations -ABX therapy: Cefepime -07/27 BC x2 with no growth after 4 days -07/29 tracheal aspirate with no growth -Monitor CBCs and fever curve Heme: Left lower leg DVT, leukocytosis -Patient is on Lovenox -SCDs to bilateral lower extremities while in bed -Trend CBC -evidenced on BLE US Oncology: h/o breast cancer, Lung mass, breast carcinoma with metastasis -CXR shows suspicious nodular density at the left base -08/02 bronchoscopy -Heme/oncology consulted, appreciate recommendations -Heme/oncology recommended biopsy which was performed -08/02 bronchoscopy completed; washings and brush sent for cytology, cell count and AFB-> preliminary results obtained, see report -08/02: AFB from bronc negative -08/02 PTH surgical report: Biomarker ER, ND, HER-2 negative, TTF1 and HMB 4 5 are not expressed -CEA low -Awaiting possible transfer to outside facility -Attempting to contact patient's established oncologist Dr. Wade at [place] at [phone] Endo: h/o DM -SSI -Avoid hypoglycemia -Lantus, titrate as needed The high probability of a clinically significant, sudden or life threatening deterioration of the [multi] system(s) required my full and direct attention, intervention and personal management. The aggregate critical care time was [60] minutes. This time is in addition to time spent performing reported procedures but includes the following: [x] Data Review and interpretation [x] Patient assessment and monitoring of vital signs [x] Documentation [x] Medication orders and management Disposition Plan: ICU Total Time Spent with Patient (Minutes): 60 History Interval history: This is a 66-year-old female with HTN, DM, HLD and COPD who presented to emergency department on 07/28 with complaints of difficulty in breathing ongoing for the past few days via EMS. En route she was given Solu-Medrol IV magnesium and albuterol nebulizing treatment. Upon arrival to emergency department patient had multiple rounds of embolizing treatments and was subsequently placed on BiPAP with some improvement. Patient has been fully vaccinated. Work-up in the emergency department revealed CXR suspicious for right-sided pneumonia, nodular density in the left base and increased interstitial markings which may be chronic. Patient was admitted to the hospitalist service with electrolyte imbalances, leukocytosis, COPD exacerbation, hypoxia and possible pneumonia. 07/29/2021. Patient seen this morning with Shabbir-Chavira respiration/agonal breathing. RENEE ABREU was called and patient was intubated and placed on mechanical ventilation. Patient transferred to ICU. Critical care/pulmonary consulted. Patient currently with AC mode rate of 30, FiO2 100%, PEEP of 12. Continue IV antibiotics. Consult ID and oncology for further evaluation. Patient will likely need bronchoscopy for further evaluation of the lung mass. Doppler ultrasound revealedLLE DVT. Start anticoagulation. 07/30/2021. Patient appears much improved and more responsive this morning. Patient currently with AC mode ventilation rate of 24, tidal volume 450, PEEP of 8 and FiO2 35%. Spontaneous breathing trials with possible extubation today per pulmonary. Bronchoscopy per pulmonary. Continue Lovenox twice daily for DVT. Continue IV antibiotics for sepsis/pneumonia. ID consultation pending. Follow-up CEA, CA 15-3, [place] 2729. 07/31/2021. Echocardiogram reveals left ventricular size and function are normal. EF 50 to 55% with mild diastolic dysfunction. Patient currently with CPAP/PSV trial 11/02. Anticipate extubation today per pulmonary. Bronchoscopy per pulmonary. Continue Lovenox twice daily for DVT. Continue IV antibiotics for sepsis/pneumonia. ID consultation pending. Follow-up CEA, CA 15-3, [place] 2729. 08/01: ALIYAH 08/02: Patient had a bronchoscopy today. Cell count, cytology and AFB sent from samples. Patient remains sedated on fentanyl and Versed. Patient and daughter Rosana were updated. 08/03: [facility] follow-up on [facility] specimens and was informed patient specimens indicate cancer. Communicated to Dr. Abbott and he stated he will update family. 08/04: Patient remains sedated on fentanyl and Versed, patient has moments of agitation with any stimulation. CPAP trial unable to be completed today due to agitation. 08/05: Patient had low urine output overnight and Elizabeth catheter was changed this a.m. with 2 L of urine output received. Patient did have a increase in creatinine however this may have been obstructive process and nephrology is aware. Hematology/oncology spoke to family who wishes for everything to be done despite bronchial washings with cancer cells. [facility] contacted patient's oncologist to help facilitate transfer. We attempted to hold sedation for CPAP trial however patient became extremely agitated and sedation was restarted. 08/06: Surgery consulted for possible trach. Leukocytosis and renal function slowly improving. No acute events reported overnight. Hospitalist Physical - Constitutional Vitals: Temp Pulse Resp BP Pulse Ox 100 F H 92 H 16 102/64 99 08/06/21 12:00 08/06/21 14:00 08/06/21 14:00 08/06/21 14:08/06/21 14:00 General appearance: Present: no acute distress, well-nourished, other - EENT Eyes: Present: PERRL ENT: dentition normal - Neck Neck: Present: normal ROM - Respiratory Respiratory effort: normal Respiratory: bilateral: diminished - Cardiovascular Rhythm: regular Heart Sounds: Present: S1 & S2. Absent: systolic murmur, diastolic murmur - Extremities Extremities: no ischemia, pulses intact, pulses symmetrical, normal temperature, normal color Peripheral Pulses: within normal limits - Abdominal General gastrointestinal: soft, non-tender, non-distended, normal bowel sounds - Integumentary Integumentary: Present: warm, dry - Psychiatric Psychiatric: agitated, other (Sedated) - Neurologic Neurologic: moves all extremities - Allied Health Allied health notes reviewed: nursing, RT Results - Labs CBC & Chem 7: 08/06/21 05:00 08/06/21 05:00 Labs: Laboratory Last Values WBC 16.8 K/mm3 (4.5-11.0) H 08/06/21 05:00 RBC 3.64 M/mm3 (3.65-5.03) L 08/06/21 05:00 Hgb 10.7 gm/dl (10.1-14.3) 08/06/21 05:00 Hct 32.5 % (30.3-42.9) 08/06/21 05:00 MCV 89 fl (79-97) 08/06/21 05:00 MCH 30 pg (28-32) 08/06/21 05:00 MCHC 33 % (30-34) 08/06/21 05:00 RDW 16.6 % (13.2-15.2) H 08/06/21 05:00 Plt Count 218 K/mm3 (140-440) 08/06/21 05:00 Lymph % (Auto) 5.1 % (13.4-35.0) L 08/02/21 Unknown [place] % (Auto) 6.1 % (0.0-7.3) 08/02/21 Unknown Eos % (Auto) 0.0 % (0.0-4.3) 08/02/21 Unknown Baso % (Auto) 0.1 % (0.0-1.8) 08/02/21 Unknown Lymph # (Auto) 0.7 K/mm3 (1.2-5.4) L 08/02/21 Unknown [place] # (Auto) 0.9 K/mm3 (0.0-0.8) H 08/02/21 Unknown Eos # (Auto) 0.0 K/mm3 (0.0-0.4) 08/02/21 Unknown Baso # (Auto) 0.0 K/mm3 (0.0-0.1) 08/02/21 Unknown Add Manual Diff Complete 08/05/21 04:50 Total Counted 100 08/05/21 04:50 Seg Neutrophils % 88.7 % (40.0-70.0) H 08/02/21 Unknown Seg Neuts % (Manual) 75.0 % (40.0-70.0) H 08/05/21 04:50 Band Neutrophils % 8.0 % 08/05/21 04:50 Lymphocytes % (Manual) 2.0 % (13.4-35.0) L 08/05/21 04:50 Monocytes % (Manual) 5.0 % (0.0-7.3) 08/05/21 04:50 Eosinophils % (Manual) 1.0 % (0.0-4.3) 08/05/21 04:50 Metamyelocytes % 6.0 % 08/05/21 04:50 Myelocytes % 3.0 % 08/05/21 04:50 Nucleated RBC % Not Reportable 08/05/21 04:50 Seg Neutrophils # 12.5 K/mm3 (1.8-7.7) H 08/02/21 Unknown Seg Neutrophils # Man 14.3 K/mm3 (1.8-7.7) H 08/05/21 04:50 Band Neutrophils # 1.5 K/mm3 08/05/21 04:50 Lymphocytes # (Manual) 0.4 K/mm3 (1.2-5.4) L 08/05/21 04:50 Abs React Lymphs (Man) 0.0 K/mm3 08/05/21 04:50 Monocytes # (Manual) 1.0 K/mm3 (0.0-0.8) H 08/05/21 04:50 Eosinophils # (Manual) 0.2 K/mm3 (0.0-0.4) 08/05/21 04:50 Basophils # (Manual) 0.0 K/mm3 (0.0-0.1) 08/05/21 04:50 Metamyelocytes # 1.1 K/mm3 08/05/21 04:50 Myelocytes # 0.6 K/mm3 08/05/21 04:50 Promyelocytes # 0.0 K/mm3 08/05/21 04:50 Blast Cells # 0.0 K/mm3 08/05/21 04:50 WBC Morphology Not Reportable 08/05/21 04:50 Hypersegmented Neuts Not Reportable 08/05/21 04:50 Hyposegmented Neuts Not Reportable 08/05/21 04:50 Hypogranular Neuts Not Reportable 08/05/21 04:50 Smudge Cells Not Reportable 08/05/21 04:50 Toxic Granulation Not Reportable 08/05/21 04:50 Toxic Vacuolation Not Reportable 08/05/21 04:50 Dohle Bodies Not Reportable 08/05/21 04:50 Pelger-Huet Anomaly Not Reportable 08/05/21 04:50 Beryl Rods Not Reportable 08/05/21 04:50 Platelet Estimate Consistent w auto 08/05/21 04:50 Clumped Platelets Not Reportable 08/05/21 04:50 Plt Clumps, EDTA Not Reportable 08/05/21 04:50 Large Platelets Not Reportable 08/05/21 04:50 Giant Platelets Not Reportable 08/05/21 04:50 Platelet Satelliting Not Reportable 08/05/21 04:50 Plt Morphology Comment Not Reportable 08/05/21 04:50 RBC Morphology Not Reportable 08/05/21 04:50 Dimorphic RBCs Not Reportable 08/05/21 04:50 Polychromasia Not Reportable 08/05/21 04:50 Hypochromasia Not Reportable 08/05/21 04:50 Poikilocytosis Not Reportable 08/05/21 04:50 Anisocytosis Not Reportable 08/05/21 04:50 Microcytosis Not Reportable 08/05/21 04:50 Macrocytosis Not Reportable 08/05/21 04:50 Spherocytes Not Reportable 08/05/21 04:50 Pappenheimer Bodies Not Reportable 08/05/21 04:50 Sickle Cells Not Reportable 08/05/21 04:50 Target Cells Not Reportable 08/05/21 04:50 Tear Drop Cells Not Reportable 08/05/21 04:50 Ovalocytes Few 08/05/21 04:50 Helmet Cells Not Reportable 08/05/21 04:50 [place] Bodies Not Reportable 08/05/21 04:50 Elliott Rings Not Reportable 08/05/21 04:50 Estelita Cells Not Reportable 08/05/21 04:50 Bite Cells Not Reportable 08/05/21 04:50 Crenated Cell Not Reportable 08/05/21 04:50 Elliptocytes Not Reportable 08/05/21 04:50 Acanthocytes (Spur) Not Reportable 08/05/21 04:50 Rouleaux Not Reportable 08/05/21 04:50 Hemoglobin C Crystals Not Reportable 08/05/21 04:50 Schistocytes Not Reportable 08/05/21 04:50 Malaria parasites Not Reportable 08/05/21 04:50 Gurmeet Bodies Not Reportable 08/05/21 04:50 Hem Pathologist Commnt No 08/05/21 04:50 PT 14.0 Sec. (12.2-14.9) 08/03/21 08:30 INR 1.03 (0.87-1.13) 08/03/21 08:30 D-Dimer 852.47 ng/mlDDU (0-234) H 07/29/21 07:17 ABG pH 7.314 (7.320-7.450) L 08/05/21 04:00 POC ABG pCO2 48.9 mmHg (32.0-48.0) H 08/05/21 04:00 POC ABG pO2 89.1 mmHg (83-108) 08/05/21 04:00 POC ABG HCO3 24.3 08/05/21 04:00 ABG O2 Saturation 96.1 (0-100) 08/05/21 04:00 POC ABG Base Excess -2.2 08/05/21 04:00 ABG Hemoglobin 12.5 (12.0-17.5) 08/05/21 04:00 ABG Oxyhemoglobin 95.7 (94-98) 08/05/21 04:00 ABG Methemoglobin 0 (0.0-1.5) 08/05/21 04:00 ABG Sodium 143.1 mmol/L (136.0-145.0) 08/05/21 04:00 ABG Potassium 5.0 mmol/L (3.40-4.50) H 08/05/21 04:00 ABG Chloride 109.0 mmol/L (98-107) H 08/05/21 04:00 ABG Glucose 234 mg/dL (65-95) H 08/05/21 04:00 Carboxyhemoglobin 0.4 (0.5-1.5) L 08/05/21 04:00 FiO2 % 30.0 08/05/21 04:00 Sodium 145 mmol/L (137-145) 08/06/21 05:00 Potassium 4.2 mmol/L (3.6-5.0) 08/06/21 05:00 Chloride 109.3 mmol/L (98-107) H 08/06/21 05:00 Carbon Dioxide 27 mmol/L (22-30) 08/06/21 05:00 Anion Gap 13 mmol/L 08/06/21 05:00 BUN 89 mg/dL (7-17) H 08/06/21 05:00 Creatinine 1.6 mg/dL (0.6-1.2) H 08/06/21 05:00 Estimated GFR 39 ml/min 08/06/21 05:00 BUN/Creatinine Ratio 56 % 08/06/21 05:00 Glucose 197 mg/dL (65-100) H 08/06/21 05:00 POC Glucose 160 mg/dL (70-105) H 08/06/21 11:38 Lactic Acid 2.10 mmol/L (0.7-2.0) H* 08/03/21 15:11 Calcium 8.2 mg/dL (8.4-10.2) L 08/06/21 05:00 Phosphorus 4.20 mg/dL (2.5-4.5) 08/05/21 04:50 Magnesium 2.60 mg/dL (1.7-2.3) H 08/05/21 04:50 Total Bilirubin 0.30 mg/dL (0.1-1.2) 07/27/21 22:57 AST 98 units/L (5-40) H 07/27/21 22:57 ALT 90 units/L (7-56) H 07/27/21 22:57 Alkaline Phosphatase 98 units/L (35-129) 07/27/21 22:57 Total Protein 8.0 g/dL (6.3-8.2) 07/27/21 22:57 Albumin 4.2 g/dL (3.9-5) 07/27/21 22:57 Albumin/Globulin Ratio 1.1 % 07/27/21 22:57 Carcinoembryonic Ag <0.5 ng/mL (0.0-2.4) 07/31/21 04:45 Arterial Blood Glucose 234 mg/dL (65-95) H 08/05/21 04:00 Arterial Blood Ionized Calcium 4.6 mg/dL (4.6-5.3) 08/05/21 04:00 Urine Color Yellow (Yellow) 08/02/21 15:30 Urine Turbidity Cloudy (Clear) 08/02/21 15:30 Urine pH 5.0 (5.0-7.0) 08/02/21 15:30 Ur Specific [place] 1.021 (1.003-1.030) 08/02/21 15:30 Urine Protein 30 mg/dl mg/dL (Negative) 08/02/21 15:30 Urine Glucose (UA) Neg mg/dL (Negative) 08/02/21 15:30 Urine Ketones Neg mg/dL (Negative) 08/02/21 15:30 Urine Blood Lg (Negative) 08/02/21 15:30 Urine Nitrite Neg (Negative) 08/02/21 15:30 Urine Bilirubin Neg (Negative) 08/02/21 15:30 Urine Urobilinogen < 2.0 mg/dL (<2.0) 08/02/21 15:30 Ur Leukocyte Esterase Sm (Negative) 08/02/21 15:30 Urine WBC (Auto) 47.0 /HPF (0.0-6.0) H 08/02/21 15:30 Urine RBC (Auto) 140.0 /HPF (0.0-6.0) 08/02/21 15:30 U Epithel Cells (Auto) < 1.0 /HPF (0-13.0) 08/02/21 15:30 Urine Mucus Few /HPF 08/02/21 15:30 Urine Creatinine 125.6 mg/dL (0.1-20.0) H 08/01/21 Unknown Urine Sodium 12 mmol/L 08/01/21 Unknown Double Strand DNA Ab 1 IU/mL (<=4) 08/02/21 15:40 Coronavirus (PCR) Negative (Negative) 07/29/21 07:58 Hepatitis A IgM Ab Non-reactive (NonReactive) 08/02/21 15:40 Hep Bs Antigen Nonreactive (Negative) 08/02/21 15:40 Hep B Core IgM Ab Non-reactive (NonReactive) 08/02/21 15:40 Hepatitis C Antibody Non-reactive (NonReactive) 08/02/21 15:40 AFB Identification Negative 08/02/21 14:30 Elizabeth/IV: Voiding Method Indwelling Catheter Active Medications - Current Medications Current Medications: Generic Name Dose Route Start Last Admin Trade Name Freq PRN Reason Stop Dose Admin Acetaminophen 650 mg 07/28/21 02:11 Acetaminophen 325 Mg Tab PO Q6H PRN Pain MILD(1-3)/Fever >100.5/GARCIA Albuterol/Ipratropium 1 ampul 07/28/21 14:00 08/06/21 15:14 Ipratropium/Albuterol Sulfate 3 Ml Ampul.Neb IH 1 ampul TID DEMIAN Administration Lipase/Protease/Amylase 1 each 07/29/21 13:01 Lipase 10,500/Protease 25,000/Amylase 43,750 (Units) Dr Campoverde FEEDTUBE PRN PRN For Clogged Feeding Tube Arformoterol Tartrate 15 mcg 07/28/21 20:00 08/06/21 12:48 Arformoterol 15 Mcg/2 Ml Nebu IH 15 mcg Q12HRT DEMIAN Administration Budesonide 0.5 mg 07/28/21 20:00 08/06/21 12:48 Budesonide 0.5 Mg/2 Ml Nebu IH 0.5 mg Q12HRT DEMIAN Administration Dextrose 50 ml 07/28/21 02:11 Dextrose 50% In Water (25gm) 50 Ml Syringe IV Q30MIN PRN Hypoglycemia Protocol Enoxaparin Sodium 100 mg 08/02/21 10:00 08/06/21 11:07 Enoxaparin 100 Mg/1 Ml Inj SUB-Q 100 mg Q24H DEMIAN Administration Protocol Famotidine 10 mg 08/02/21 10:00 08/06/21 11:06 Famotidine 20 Mg/2 Ml Inj IV 10 mg BID DEMIAN Administration Fentanyl 50 mcg 07/29/21 10:42 08/04/21 09:05 Fentanyl 100 Mcg/2 Ml Inj IV 50 mcg Q10MIN PRN Administration ANALGESIA Hydralazine HCl 10 mg 07/30/21 14:52 08/03/21 17:31 Hydralazine 20 Mg/1 Ml Inj IV 10 mg Q6H PRN Administration SBP > 165 Hydrophilic Ointment 1 applic 07/29/21 10:42 Lip Therapy Vaseline TP Q2HR PRN Dry Lips Fentanyl Citrate 2,000 mcg in 100 mls @ 5.35 mls/hr 07/29/21 11:00 08/06/21 13:43 Fentanyl Drip Premix IV 4 mcg/kg/hr TITR DEMIAN 21.4 mls/hr Administration Protocol 1 MCG/KG/HR Midazolam HCl 100 mg/ Sodium 100 mls @ 2 mls/hr 07/29/21 11:00 08/05/21 11:36 Chloride IV 2 mg/hr TITR DEMIAN 2 mls/hr Titration Protocol 2 MG/HR Norepinephrine 4 mg in 250 mls @ 7.5 mls/hr 07/29/21 21:00 Levophed Drip 4 Mg/Ns 250 Ml IV TITR DEMIAN Protocol 2 MCG/MIN Cefepime HCl 2 gm in 100 mls @ 200 mls/hr 08/02/21 10:00 08/06/21 11:09 Cefepime/Ns 2 Gm/100 Ml IV 08/07/21 22:29 200 mls/hr Q12H DEMIAN Administration Protocol Sodium Chloride 1,000 mls @ 75 mls/hr 08/03/21 10:00 08/06/21 04:50 Nacl 0.45% 1000 Ml IV 75 mls/hr DIRECT DEMIAN Administration Insulin Glargine 30 units 08/05/21 22:00 08/05/21 21:39 Insulin Glargine 100 Units/Ml SUB-Q 30 units QHS DEMIAN Administration Insulin Human Lispro 0 unit 07/29/21 12:00 08/06/21 13:43 Insulin Lispro 100 Unit/Ml SUB-Q 4 unit Q6HR DEMIAN Administration Protocol Magnesium Hydroxide 30 ml 07/28/21 02:11 Magnesium Hydroxide (Mom) Oral Liqd Udc PO Q4H PRN Constipation Midazolam HCl 2 mg 07/29/21 10:42 08/05/21 09:19 Midazolam 2 Mg/2 Ml Inj IV 2 mg Q10MIN PRN Administration Sedation Multi-Ingred Cream/Lotion/Oil/Oint 1 applic 07/29/21 10:42 Mineral Oil/Petrolatum, White Ophth Oint 3.5 Gm OU Q4HR PRN Dry Eye(s) Ondansetron HCl 4 mg 07/28/21 02:11 Ondansetron 4 Mg/2 Ml Inj IV Q8H PRN Nausea And Vomiting Quetiapine Fumarate 200 mg 08/05/21 22:00 08/06/21 11:08 Quetiapine 200 Mg Tab PO 200 mg BID DEMIAN Administration Senna/Docusate Sodium 1 tab 07/29/21 22:00 08/06/21 11:08 Sennosides/Docusate Sodium 8.6/50 Mg Tab FEEDTUBE 1 tab BID DEMIAN Administration Simple Syrup 15 ml 07/29/21 13:01 Simple Syrup 15 Ml FEEDTUBE PRN PRN Hypoglycemia Simple Syrup 30 ml 07/29/21 13:01 Simple Syrup 15 Ml FEEDTUBE PRN PRN Hypoglycemia Sodium Bicarbonate 325 mg 07/29/21 13:01 Sodium Bicarbonate 325 Mg Tab FEEDTUBE PRN PRN For Clogged Feeding Tube Sodium Chloride 10 ml 07/28/21 10:00 08/06/21 11:11 Sodium Chloride 0.9% 10 Ml Flush Syringe IV 10 ml BID DEMIAN Administration Sodium Chloride 10 ml 07/28/21 02:05 Sodium Chloride 0.9% 10 Ml Flush Syringe IV PRN PRN LINE FLUSH Nutrition/Malnutrition Assess - Dietary Evaluation Nutrition/Malnutrition Findings: Nutrition Notes Start: 07/28/21 14:44 Freq: Status: Active Protocol: Document 08/04/21 12:18 (Rec: 08/04/21 12:22 [id number]) Nutrition Notes Initial or Follow up Reassessment Current Diagnosis COPD,Diabetes,Hypertension, Respiratory Failure Other Pertinent Diagnosis pneu Current Diet Vital AF at 50 ml/hr Labs/Tests BUN 76 Cr 1.4 BG 310 Mg 2.7 Pertinent Medications Solu Medrol Humalog Height 5 ft Weight 107 kg Flora Body Weight (kg) 45.45 BMI 46.0 Weight Status Morbidly Obese Subjective/Other Information TF running at goal rate and no signs of intolerance noted. Bron specimens indicate cancer. Percent of energy/protein needs met: 96%/67% Burn Absent Trauma Absent Current % PO Negligible Minimum of two criteria No #1 Nutrition Diagnosis Inadequate oral intake Diagnosis Progress(for reassessment Continues documentation) Is patient on ventilator? Yes Is Patient Ambulatory and/or Out of Bed No REE-([place] Jeor-confined to bed) 1842.852 Kcal/Kg value to use for calculation 14 Approximate Energy Requirements Using 1498 kcal/Kg Calculation Used for Recommendations Kcal/kg Additional Notes Protein: (up to 2.5g/kg IBW) up to 134g Fluid: 1 ml/kcal or per Nutrition Intervention Change Diet Order: continue Nutrition Support: Vital AF 1.2 at 50 ml/hr Flush 75 ml q4h or per MD Kcal 1,440 Protein (gm) 90 Fluid (mL) 973 Goal #1 Meet at least 75% of protein and energy needs via TF Anticipated Discharge Needs: Unable to determine at this time Follow-Up By: 08/08/21 Additional Comments F/u: stable TF, renal function <LINDSAY FARR - Last Filed: 08/07/21 11:04> History Interval history: I saw and evaluated the patient. Discussed with the nurse practitioner and agree with their findings and plan as documented in this note. Hospitalist Physical - Constitutional Vitals: Temp Pulse Resp BP Pulse Ox 98.3 F 99 H 20 107/52 98 08/07/21 03:44 08/07/21 08:21 08/07/21 08:21 08/07/21 07:52 08/07/21 07:52 Results - Labs CBC & Chem 7: 08/07/21 04:00 08/07/21 04:00 Labs: Laboratory Last Values WBC 13.6 K/mm3 (4.5-11.0) H 08/07/21 04:00 RBC 3.30 M/mm3 (3.65-5.03) L 08/07/21 04:00 Hgb 9.5 gm/dl (10.1-14.3) L 08/07/21 04:00 Hct 29.2 % (30.3-42.9) L 08/07/21 04:00 MCV 88 fl (79-97) 08/07/21 04:00 MCH 29 pg (28-32) 08/07/21 04:00 MCHC 32 % (30-34) 08/07/21 04:00 RDW 16.7 % (13.2-15.2) H 08/07/21 04:00 Plt Count 221 K/mm3 (140-440) 08/07/21 04:00 Lymph % (Auto) 5.1 % (13.4-35.0) L 08/02/21 Unknown [place] % (Auto) 6.1 % (0.0-7.3) 08/02/21 Unknown Eos % (Auto) 0.0 % (0.0-4.3) 08/02/21 Unknown Baso % (Auto) 0.1 % (0.0-1.8) 08/02/21 Unknown Lymph # (Auto) 0.7 K/mm3 (1.2-5.4) L 08/02/21 Unknown [place] # (Auto) 0.9 K/mm3 (0.0-0.8) H 08/02/21 Unknown Eos # (Auto) 0.0 K/mm3 (0.0-0.4) 08/02/21 Unknown Baso # (Auto) 0.0 K/mm3 (0.0-0.1) 08/02/21 Unknown Add Manual Diff Complete 08/05/21 04:50 Total Counted 100 08/05/21 04:50 Seg Neutrophils % 88.7 % (40.0-70.0) H 08/02/21 Unknown Seg Neuts % (Manual) 75.0 % (40.0-70.0) H 08/05/21 04:50 Band Neutrophils % 8.0 % 08/05/21 04:50 Lymphocytes % (Manual) 2.0 % (13.4-35.0) L 08/05/21 04:50 Monocytes % (Manual) 5.0 % (0.0-7.3) 08/05/21 04:50 Eosinophils % (Manual) 1.0 % (0.0-4.3) 08/05/21 04:50 Metamyelocytes % 6.0 % 08/05/21 04:50 Myelocytes % 3.0 % 08/05/21 04:50 Nucleated RBC % Not Reportable 08/05/21 04:50 Seg Neutrophils # 12.5 K/mm3 (1.8-7.7) H 08/02/21 Unknown Seg Neutrophils # Man 14.3 K/mm3 (1.8-7.7) H 08/05/21 04:50 Band Neutrophils # 1.5 K/mm3 08/05/21 04:50 Lymphocytes # (Manual) 0.4 K/mm3 (1.2-5.4) L 08/05/21 04:50 Abs React Lymphs (Man) 0.0 K/mm3 08/05/21 04:50 Monocytes # (Manual) 1.0 K/mm3 (0.0-0.8) H 08/05/21 04:50 Eosinophils # (Manual) 0.2 K/mm3 (0.0-0.4) 08/05/21 04:50 Basophils # (Manual) 0.0 K/mm3 (0.0-0.1) 08/05/21 04:50 Metamyelocytes # 1.1 K/mm3 08/05/21 04:50 Myelocytes # 0.6 K/mm3 08/05/21 04:50 Promyelocytes # 0.0 K/mm3 08/05/21 04:50 Blast Cells # 0.0 K/mm3 08/05/21 04:50 WBC Morphology Not Reportable 08/05/21 04:50 Hypersegmented Neuts Not Reportable 08/05/21 04:50 Hyposegmented Neuts Not Reportable 08/05/21 04:50 Hypogranular Neuts Not Reportable 08/05/21 04:50 Smudge Cells Not Reportable 08/05/21 04:50 Toxic Granulation Not Reportable 08/05/21 04:50 Toxic Vacuolation Not Reportable 08/05/21 04:50 Dohle Bodies Not Reportable 08/05/21 04:50 Pelger-Huet Anomaly Not Reportable 08/05/21 04:50 Beryl Rods Not Reportable 08/05/21 04:50 Platelet Estimate Consistent w auto 08/05/21 04:50 Clumped Platelets Not Reportable 08/05/21 04:50 Plt Clumps, EDTA Not Reportable 08/05/21 04:50 Large Platelets Not Reportable 08/05/21 04:50 Giant Platelets Not Reportable 08/05/21 04:50 Platelet Satelliting Not Reportable 08/05/21 04:50 Plt Morphology Comment Not Reportable 08/05/21 04:50 RBC Morphology Not Reportable 08/05/21 04:50 Dimorphic RBCs Not Reportable 08/05/21 04:50 Polychromasia Not Reportable 08/05/21 04:50 Hypochromasia Not Reportable 08/05/21 04:50 Poikilocytosis Not Reportable 08/05/21 04:50 Anisocytosis Not Reportable 08/05/21 04:50 Microcytosis Not Reportable 08/05/21 04:50 Macrocytosis Not Reportable 08/05/21 04:50 Spherocytes Not Reportable 08/05/21 04:50 Pappenheimer Bodies Not Reportable 08/05/21 04:50 Sickle Cells Not Reportable 08/05/21 04:50 Target Cells Not Reportable 08/05/21 04:50 Tear Drop Cells Not Reportable 08/05/21 04:50 Ovalocytes Few 08/05/21 04:50 Helmet Cells Not Reportable 08/05/21 04:50 [place] Bodies Not Reportable 08/05/21 04:50 Elliott Rings Not Reportable 08/05/21 04:50 [place] Cells Not Reportable 08/05/21 04:50 Bite Cells Not Reportable 08/05/21 04:50 Crenated Cell Not Reportable 08/05/21 04:50 Elliptocytes Not Reportable 08/05/21 04:50 Acanthocytes (Spur) Not Reportable 08/05/21 04:50 Rouleaux Not Reportable 08/05/21 04:50 Hemoglobin C Crystals Not Reportable 08/05/21 04:50 Schistocytes Not Reportable 08/05/21 04:50 Malaria parasites Not Reportable 08/05/21 04:50 [place] Bodies Not Reportable 08/05/21 04:50 Hem Pathologist Commnt No 08/05/21 04:50 PT 14.0 Sec. (12.2-14.9) 08/03/21 08:30 INR 1.03 (0.87-1.13) 08/03/21 08:30 D-Dimer 852.47 ng/mlDDU (0-234) H 07/29/21 07:17 ABG pH 7.368 (7.320-7.450) 08/07/21 04:00 POC ABG pCO2 42.0 mmHg (32.0-48.0) 08/07/21 04:00 POC ABG pO2 80.1 mmHg (83-108) L 08/07/21 04:00 POC ABG HCO3 23.6 08/07/21 04:00 ABG O2 Saturation 95.2 (0-100) 08/07/21 04:00 POC ABG Base Excess -1.6 08/07/21 04:00 ABG Hemoglobin 9.8 (12.0-17.5) L 08/07/21 04:00 ABG Oxyhemoglobin 94.9 (94-98) 08/07/21 04:00 ABG Methemoglobin 0 (0.0-1.5) 08/07/21 04:00 ABG Sodium 142.1 mmol/L (136.0-145.0) 08/07/21 04:00 ABG Potassium 3.9 mmol/L (3.40-4.50) 08/07/21 04:00 ABG Chloride 111.0 mmol/L (98-107) H 08/07/21 04:00 ABG Glucose 157 mg/dL (65-95) H 08/07/21 04:00 Carboxyhemoglobin 0.3 (0.5-1.5) L 08/07/21 04:00 FiO2 % 30.0 08/07/21 04:00 Sodium 146 mmol/L (137-145) H 08/07/21 04:00 Potassium 4.0 mmol/L (3.6-5.0) 08/07/21 04:00 Chloride 111.4 mmol/L (98-107) H 08/07/21 04:00 Carbon Dioxide 27 mmol/L (22-30) 08/07/21 04:00 Anion Gap 12 mmol/L 08/07/21 04:00 BUN 78 mg/dL (7-17) H 08/07/21 04:00 Creatinine 1.5 mg/dL (0.6-1.2) H 08/07/21 04:00 Estimated GFR 42 ml/min 08/07/21 04:00 BUN/Creatinine Ratio 52 % 08/07/21 04:00 Glucose 143 mg/dL (65-100) H 08/07/21 04:00 POC Glucose 144 mg/dL (70-105) H 08/07/21 05:16 Lactic Acid 2.10 mmol/L (0.7-2.0) H* 08/03/21 15:11 Calcium 8.2 mg/dL (8.4-10.2) L 08/07/21 04:00 Phosphorus 4.20 mg/dL (2.5-4.5) 08/05/21 04:50 Magnesium 2.60 mg/dL (1.7-2.3) H 08/05/21 04:50 Total Bilirubin 0.30 mg/dL (0.1-1.2) 07/27/21 22:57 AST 98 units/L (5-40) H 07/27/21 22:57 ALT 90 units/L (7-56) H 07/27/21 22:57 Alkaline Phosphatase 98 units/L (35-129) 07/27/21 22:57 Total Protein 8.0 g/dL (6.3-8.2) 07/27/21 22:57 Albumin 4.2 g/dL (3.9-5) 07/27/21 22:57 Albumin/Globulin Ratio 1.1 % 07/27/21 22:57 Carcinoembryonic Ag <0.5 ng/mL (0.0-2.4) 07/31/21 04:45 Arterial Blood Glucose 157 mg/dL (65-95) H 08/07/21 04:00 Arterial Blood Ionized Calcium 4.5 mg/dL (4.6-5.3) L 08/07/21 04:00 Urine Color Yellow (Yellow) 08/02/21 15:30 Urine Turbidity Cloudy (Clear) 08/02/21 15:30 Urine pH 5.0 (5.0-7.0) 08/02/21 15:30 Ur Specific [place] 1.021 (1.003-1.030) 08/02/21 15:30 Urine Protein 30 mg/dl mg/dL (Negative) 08/02/21 15:30 Urine Glucose (UA) Neg mg/dL (Negative) 08/02/21 15:30 Urine Ketones Neg mg/dL (Negative) 08/02/21 15:30 Urine Blood Lg (Negative) 08/02/21 15:30 Urine Nitrite Neg (Negative) 08/02/21 15:30 Urine Bilirubin Neg (Negative) 08/02/21 15:30 Urine Urobilinogen < 2.0 mg/dL (<2.0) 08/02/21 15:30 Ur Leukocyte Esterase Sm (Negative) 08/02/21 15:30 Urine WBC (Auto) 47.0 /HPF (0.0-6.0) H 08/02/21 15:30 Urine RBC (Auto) 140.0 /HPF (0.0-6.0) 08/02/21 15:30 U Epithel Cells (Auto) < 1.0 /HPF (0-13.0) 08/02/21 15:30 Urine Mucus Few /HPF 08/02/21 15:30 Urine Creatinine 125.6 mg/dL (0.1-20.0) H 08/01/21 Unknown Urine Sodium 12 mmol/L 08/01/21 Unknown Double Strand DNA Ab 1 IU/mL (<=4) 08/02/21 15:40 Coronavirus (PCR) Negative (Negative) 07/29/21 07:58 Hepatitis A IgM Ab Non-reactive (NonReactive) 08/02/21 15:40 Hep Bs Antigen Nonreactive (Negative) 08/02/21 15:40 Hep B Core IgM Ab Non-reactive (NonReactive) 08/02/21 15:40 Hepatitis C Antibody Non-reactive (NonReactive) 08/02/21 15:40 AFB Identification Negative 08/02/21 14:30 Elizabeth/IV: Voiding Method Indwelling Catheter Active Medications - Current Medications Current Medications: Generic Name Dose Route Start Last Admin Trade Name Freq PRN Reason Stop Dose Admin Acetaminophen 650 mg 07/28/21 02:11 Acetaminophen 325 Mg Tab PO Q6H PRN Pain MILD(1-3)/Fever >100.5/GARCIA Albuterol/Ipratropium 1 ampul 07/28/21 14:00 08/07/21 08:16 Ipratropium/Albuterol Sulfate 3 Ml Ampul.Neb IH 1 ampul TID DEMIAN Administration Lipase/Protease/Amylase 1 each 07/29/21 13:01 Lipase 10,500/Protease 25,000/Amylase 43,750 (Units) Dr Campoverde FEEDTUBE PRN PRN For Clogged Feeding Tube Arformoterol Tartrate 15 mcg 07/28/21 20:00 08/07/21 08:16 Arformoterol 15 Mcg/2 Ml Nebu IH 15 mcg Q12HRT DEMIAN Administration Bisacodyl 10 mg 08/07/21 09:50 Bisacodyl 10 Mg Rect Supp ND QDAY PRN Constip unreliev by MOM/or NPO Budesonide 0.5 mg 07/28/21 20:00 08/07/21 08:16 Budesonide 0.5 Mg/2 Ml Nebu IH 0.5 mg Q12HRT DEMIAN Administration Dextrose 50 ml 07/28/21 02:11 Dextrose 50% In Water (25gm) 50 Ml Syringe IV Q30MIN PRN Hypoglycemia Protocol Enoxaparin Sodium 100 mg 08/07/21 10:00 08/07/21 09:47 Enoxaparin 100 Mg/1 Ml Inj SUB-Q 100 mg Q12H DEMIAN Administration Protocol Famotidine 10 mg 08/02/21 10:00 08/07/21 09:46 Famotidine 20 Mg/2 Ml Inj IV 10 mg BID DEMIAN Administration Fentanyl 50 mcg 07/29/21 10:42 08/04/21 09:05 Fentanyl 100 Mcg/2 Ml Inj IV 50 mcg Q10MIN PRN Administration ANALGESIA Hydralazine HCl 10 mg 07/30/21 14:52 08/03/21 17:31 Hydralazine 20 Mg/1 Ml Inj IV 10 mg Q6H PRN Administration SBP > 165 Hydrophilic Ointment 1 applic 07/29/21 10:42 Lip Therapy Vaseline TP Q2HR PRN Dry Lips Fentanyl Citrate 2,000 mcg in 100 mls @ 5.35 mls/hr 07/29/21 11:00 08/07/21 05:03 Fentanyl Drip Premix IV 4 mcg/kg/hr TITR DEMIAN 21.4 mls/hr Administration Protocol 1 MCG/KG/HR Midazolam HCl 100 mg/ Sodium 100 mls @ 2 mls/hr 07/29/21 11:00 08/05/21 11:36 Chloride IV 2 mg/hr TITR DEMIAN 2 mls/hr Titration Protocol 2 MG/HR Norepinephrine 4 mg in 250 mls @ 7.5 mls/hr 07/29/21 21:00 Levophed Drip 4 Mg/Ns 250 Ml IV TITR DEMIAN Protocol 2 MCG/MIN Cefepime HCl 2 gm in 100 mls @ 200 mls/hr 08/02/21 10:00 08/06/21 22:18 Cefepime/Ns 2 Gm/100 Ml IV 08/07/21 22:29 Infused Q12H DEMIAN Infusion Protocol Insulin Glargine 30 units 08/05/21 22:00 08/06/21 21:55 Insulin Glargine 100 Units/Ml SUB-Q 30 units QHS DMEIAN Administration Insulin Human Lispro 0 unit 07/29/21 12:00 08/07/21 06:01 Insulin Lispro 100 Unit/Ml SUB-Q Not Given Q6HR [facility] Protocol Magnesium Hydroxide 30 ml 07/28/21 02:11 Magnesium Hydroxide (Mom) Oral Liqd Udc PO Q4H PRN Constipation Midazolam HCl 2 mg 07/29/21 10:42 08/07/21 10:10 Midazolam 2 Mg/2 Ml Inj IV 2 mg Q10MIN PRN Administration Sedation Multi-Ingred Cream/Lotion/Oil/Oint 1 applic 07/29/21 10:42 Mineral Oil/Petrolatum, White Ophth Oint 3.5 Gm OU Q4HR PRN Dry Eye(s) Ondansetron HCl 4 mg 07/28/21 02:11 Ondansetron 4 Mg/2 Ml Inj IV Q8H PRN Nausea And Vomiting Quetiapine Fumarate 200 mg 08/05/21 22:00 08/07/21 09:46 Quetiapine 200 Mg Tab PO 200 mg BID DEMIAN Administration Senna/Docusate Sodium 1 tab 07/29/21 22:00 08/07/21 09:46 Sennosides/Docusate Sodium 8.6/50 Mg Tab FEEDTUBE 1 tab BID DEMIAN Administration Simple Syrup 15 ml 07/29/21 13:01 Simple Syrup 15 Ml FEEDTUBE PRN PRN Hypoglycemia Simple Syrup 30 ml 07/29/21 13:01 Simple Syrup 15 Ml FEEDTUBE PRN PRN Hypoglycemia Sodium Bicarbonate 325 mg 07/29/21 13:01 Sodium Bicarbonate 325 Mg Tab FEEDTUBE PRN PRN For Clogged Feeding Tube Sodium Chloride 10 ml 07/28/21 10:00 08/06/21 21:48 Sodium Chloride 0.9% 10 Ml Flush Syringe IV 10 ml BID DEMIAN Administration Sodium Chloride 10 ml 07/28/21 02:05 Sodium Chloride 0.9% 10 Ml Flush Syringe IV PRN PRN LINE FLUSH Nutrition/Malnutrition Assess - Dietary Evaluation Nutrition/Malnutrition Findings: Nutrition Notes Start: 07/28/21 14:44 Freq: Status: Active Protocol: Document 08/04/21 12:18 (Rec: 08/04/21 12:22 [id number]) Nutrition Notes Initial or Follow up Reassessment Current Diagnosis COPD,Diabetes,Hypertension, Respiratory Failure Other Pertinent Diagnosis pneu Current Diet Vital AF at 50 ml/hr Labs/Tests BUN 76 Cr 1.4 BG 310 Mg 2.7 Pertinent Medications Solu Medrol Humalog Height 5 ft Weight 107 kg [place] Body Weight (kg) 45.45 BMI 46.0 Weight Status Morbidly Obese Subjective/Other Information TF running at goal rate and no signs of intolerance noted. [facility] specimens indicate cancer. Percent of energy/protein needs met: 96%/67% Burn Absent Trauma Absent Current % PO Negligible Minimum of two criteria No #1 Nutrition Diagnosis Inadequate oral intake Diagnosis Progress(for reassessment Continues documentation) Is patient on ventilator? Yes Is Patient Ambulatory and/or Out of Bed No REE-([facility]-confined to bed) 1842.852 Kcal/Kg value to use for calculation 14 Approximate Energy Requirements Using 1498 kcal/Kg Calculation Used for Recommendations Kcal/kg Additional Notes Protein: (up to 2.5g/kg IBW) up to 134g Fluid: 1 ml/kcal or per MD Nutrition Intervention Change Diet Order: continue Nutrition Support: Vital AF 1.2 at 50 ml/hr Flush 75 ml q4h or per MD Kcal 1,440 Protein (gm) 90 Fluid (mL) 973 Goal #1 Meet at least 75% of protein and energy needs via TF Anticipated Discharge Needs: Unable to determine at this time Follow-Up By: 08/08/21 Additional Comments F/u: stable TF, renal function
[2021-08-06] MEDS: INSULIN GLARGINE 100 UNITS/ML SUB-Q SCH (21:55)
[2021-08-07] MEDS: INSULIN LISPRO 100 UNIT/ML SUB-Q SCH ×2 (00:22→06:01)
[2021-08-07] MEDS: fentaNYL DRIP Premix 2,000 MCG/100 ML BAG IV SCH ×3 (05:03→21:33)
[2021-08-07 06:42] LABS: Hematocrit 29.2 % (30.3-42.9); Hemoglobin 9.5 gm/dl (10.1-14.3); Mean Corpuscular HGB Conc 32 % (30-34); Mean Corpuscular Volume 88 fl (79-97); Platelet Count 221 K/mm3 (140-440); Red Cell Distribution Width 16.7 % (13.2-15.2)
[2021-08-07 07:03] LABS: Calcium 8.2 mg/dL (8.4-10.2)
[2021-08-07] MEDS: BUDESONIDE 0.5 MG/2 ML NEBU IH SCH ×2 (08:16→20:49)
[2021-08-07] MEDS: ARFORMOTEROL 15 MCG/2 ML NEBU IH SCH ×2 (08:16→20:49)
[2021-08-07] MEDS: IPRATROPIUM/ALBUTEROL SULFATE 3 ML AMPUL.NEB IH SCH ×3 (08:16→20:49)
--- NOTE | 2021-08-07 08:55 | Hem/Onc Progress Note ---
Subjective Interval history: TELEVISIT HEME/ONC NOTE data review 66yo woman with h/o metastatic breast cancer affecting lungs bronchoscopy biopsy-->carcinoma c/w breast primary, ER/NH/H2N neg, TTf1 neg still on vent--unable to wean because of agitation discussed with daughter Rosana and Femi- she had chemotherapy with Dr. 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" L leg prox DVT-on [facility] not a good candidate for chemotherapy, but chest tumor radiation may be possible REC: try for tracheostomy try for transfer to [facility] "full dose" 100mg daily end of life discussion is appropriate, even though aggressive interventions are underway Active Medications Acetaminophen (Acetaminophen 325 Mg Tab) 650 mg PO Q6H PRN PRN Reason: Pain MILD(1-3)/Fever >100.5/GARCIA Albuterol/Ipratropium (Ipratropium/Albuterol Sulfate 3 Ml Ampul.Neb) 1 ampul IH TID [facility] Last Admin: 08/07/21 08:16 Dose: 1 ampul Documented by: Lipase/Protease/Amylase (Lipase 10,500/Protease 25,000/Amylase 43,750 (Units) Dr Campoverde) 1 each FEEDTUBE PRN PRN PRN Reason: For Clogged Feeding Tube Arformoterol Tartrate (Arformoterol 15 Mcg/2 Ml Nebu) 15 mcg IH Q12HRT [facility] Last Admin: 08/07/21 08:16 Dose: 15 mcg Documented by: Budesonide (Budesonide 0.5 Mg/2 Ml Nebu) 0.5 mg IH Q12HRT [facility] Last Admin: 08/07/21 08:16 Dose: 0.5 mg Documented by: Dextrose (Dextrose 50% In Water (25gm) 50 Ml Syringe) 50 ml IV Q30MIN PRN; Protocol PRN Reason: Hypoglycemia Enoxaparin Sodium (Enoxaparin 100 Mg/1 Ml Inj) 100 mg SUB-Q Q12H DEMIAN; Protocol Famotidine (Famotidine 20 Mg/2 Ml Inj) 10 mg IV BID [facility] Last Admin: 08/06/21 21:45 Dose: 10 mg Documented by: Norepinephrine (Levophed Drip 4 Mg/Ns 250 Ml) 4 mg in 250 mls @ 7.5 mls/hr IV TITR [facility]; Protocol Cefepime HCl (Cefepime/Ns 2 Gm/100 Ml) 2 gm in 100 mls @ 200 mls/hr IV Q12H [facility]; Protocol Stop: 08/07/21 22:29 Last Infusion: 08/06/21 22:18 Dose: Infused Documented by: Midazolam HCl (Midazolam 2 Mg/2 Ml Inj) 2 mg IV Q10MIN PRN PRN Reason: Sedation Last Admin: 08/05/21 09:19 Dose: 2 mg Documented by: Laboratory Last Values WBC 13.6 K/mm3 (4.5-11.0) H 08/07/21 04:00 Hgb 9.5 gm/dl (10.1-14.3) L 08/07/21 04:00 Hct 29.2 % (30.3-42.9) L 08/07/21 04:00 Plt Count 221 K/mm3 (140-440) 08/07/21 04:00 Creatinine 1.5 mg/dL (0.6-1.2) H 08/07/21 04:00 Hepatitis C Antibody Non-reactive (NonReactive) 08/02/21 15:40 AFB Identification Negative 08/02/21 14:30 Objective - Constitutional Vitals: Last Vital Signs Temp 98.3 F 08/07/21 03:44 Pulse 99 H 08/07/21 08:21 Resp 20 08/07/21 08:21 BP 107/52 08/07/21 07:52 Pulse Ox 98 08/07/21 07:52 - Labs Lab Results: Laboratory Results - last 24 hr 08/06/21 08/06/21 08/06/21 11:38 16:30 23:08 WBC RBC Hgb Hct MCV MCH MCHC RDW Plt Count ABG pH POC ABG pCO2 POC ABG pO2 POC ABG HCO3 ABG O2 Saturation POC ABG Base Excess ABG Hemoglobin ABG Oxyhemoglobin ABG Methemoglobin ABG Sodium ABG Potassium ABG Chloride ABG Glucose Carboxyhemoglobin FiO2 % Sodium Potassium Chloride Carbon Dioxide Anion Gap BUN Creatinine Estimated GFR BUN/Creatinine Ratio Glucose POC Glucose 160 H 135 H 125 H Calcium Arterial Blood Glucose Arterial Blood Ionized Calcium 08/07/21 08/07/21 08/07/21 04:00 04:00 04:00 WBC 13.6 H RBC 3.30 L Hgb 9.5 L Hct 29.2 L MCV 88 MCH 29 MCHC 32 RDW 16.7 H Plt Count 221 ABG pH 7.368 POC ABG pCO2 42.0 POC ABG pO2 80.1 L POC ABG HCO3 23.6 ABG O2 Saturation 95.2 POC ABG Base Excess -1.6 ABG Hemoglobin 9.8 L ABG Oxyhemoglobin 94.9 ABG Methemoglobin 0 ABG Sodium 142.1 ABG Potassium 3.9 ABG Chloride 111.0 H ABG Glucose 157 H Carboxyhemoglobin 0.3 L FiO2 % 30.0 Sodium 146 H Potassium 4.0 Chloride 111.4 H Carbon Dioxide 27 Anion Gap 12 BUN 78 H Creatinine 1.5 H Estimated GFR 42 BUN/Creatinine Ratio 52 Glucose 143 H POC Glucose Calcium 8.2 L Arterial Blood Glucose 157 H Arterial Blood Ionized Calcium 4.5 L 08/07/21 05:16 WBC RBC Hgb Hct MCV MCH MCHC RDW Plt Count ABG pH POC ABG pCO2 POC ABG pO2 POC ABG HCO3 ABG O2 Saturation POC ABG Base Excess ABG Hemoglobin ABG Oxyhemoglobin ABG Methemoglobin ABG Sodium ABG Potassium ABG Chloride ABG Glucose Carboxyhemoglobin FiO2 % Sodium Potassium Chloride Carbon Dioxide Anion Gap BUN Creatinine Estimated GFR BUN/Creatinine Ratio Glucose POC Glucose 144 H Calcium Arterial Blood Glucose Arterial Blood Ionized Calcium Medications & Allergies - Medications Allergies/Adverse Reactions: Allergies No Known Allergies Allergy (Verified 12/24/18 11:45) Home Medications: Home Medications Medication Instructions Recorded Confirmed Last Taken Type traMADoL [Ultram 50 MG tab] 50 mg PO Q6HR PRN #15 tablet 01/25/18 Unknown Rx Active Medications: Generic Name Dose Route Start Last Admin Trade Name Freq PRN Reason Stop Dose Admin Acetaminophen 650 mg 07/28/21 02:11 Acetaminophen 325 Mg Tab PO Q6H PRN Pain MILD(1-3)/Fever >100.5/GARCIA Albuterol/Ipratropium 1 ampul 07/28/21 14:00 08/07/21 08:16 Ipratropium/Albuterol Sulfate 3 Ml Ampul.Neb IH 1 ampul TID DEMIAN Administration Lipase/Protease/Amylase 1 each 07/29/21 13:01 Lipase 10,500/Protease 25,000/Amylase 43,750 (Units) Dr Cap FEEDTUBE PRN PRN For Clogged Feeding Tube Arformoterol Tartrate 15 mcg 07/28/21 20:00 08/07/21 08:16 Arformoterol 15 Mcg/2 Ml Nebu IH 15 mcg Q12HRT DEMIAN Administration Budesonide 0.5 mg 07/28/21 20:00 08/07/21 08:16 Budesonide 0.5 Mg/2 Ml Nebu IH 0.5 mg Q12HRT DEMIAN Administration Dextrose 50 ml 07/28/21 02:11 Dextrose 50% In Water (25gm) 50 Ml Syringe IV Q30MIN PRN Hypoglycemia Protocol Enoxaparin Sodium 100 mg 08/07/21 10:00 Enoxaparin 100 Mg/1 Ml Inj SUB-Q Q12H DEMIAN Protocol Famotidine 10 mg 08/02/21 10:00 08/06/21 21:45 Famotidine 20 Mg/2 Ml Inj IV 10 mg BID DEMIAN Administration Fentanyl 50 mcg 07/29/21 10:42 08/04/21 09:05 Fentanyl 100 Mcg/2 Ml Inj IV 50 mcg Q10MIN PRN Administration ANALGESIA Hydralazine HCl 10 mg 07/30/21 14:52 08/03/21 17:31 Hydralazine 20 Mg/1 Ml Inj IV 10 mg Q6H PRN Administration SBP > 165 Hydrophilic Ointment 1 applic 07/29/21 10:42 Lip Therapy Vaseline TP Q2HR PRN Dry Lips Fentanyl Citrate 2,000 mcg in 100 mls @ 5.35 mls/hr 07/29/21 11:00 08/07/21 05:03 Fentanyl Drip Premix IV 4 mcg/kg/hr TITR DEMIAN 21.4 mls/hr Administration Protocol 1 MCG/KG/HR Midazolam HCl 100 mg/ Sodium 100 mls @ 2 mls/hr 07/29/21 11:00 08/05/21 11:36 Chloride IV 2 mg/hr TITR DEMIAN 2 mls/hr Titration Protocol 2 MG/HR Norepinephrine 4 mg in 250 mls @ 7.5 mls/hr 07/29/21 21:00 Levophed Drip 4 Mg/Ns 250 Ml IV TITR DEMIAN Protocol 2 MCG/MIN Cefepime HCl 2 gm in 100 mls @ 200 mls/hr 08/02/21 10:00 08/06/21 22:18 Cefepime/Ns 2 Gm/100 Ml IV 08/07/21 22:29 Infused Q12H [facility] Infusion Protocol Sodium Chloride 1,000 mls @ 75 mls/hr 08/03/21 10:00 08/06/21 17:58 Nacl 0.45% 1000 Ml IV 75 mls/hr DIRECT DEMIAN Administration Insulin Glargine 30 units 08/05/21 22:00 08/06/21 21:55 Insulin Glargine 100 Units/Ml SUB-Q 30 units QHS DEMIAN Administration Insulin Human Lispro 0 unit 07/29/21 12:00 08/07/21 06:01 Insulin Lispro 100 Unit/Ml SUB-Q Not Given Q6HR [facility] Protocol Magnesium Hydroxide 30 ml 07/28/21 02:11 Magnesium Hydroxide (Mom) Oral Liqd Udc PO Q4H PRN Constipation Midazolam HCl 2 mg 07/29/21 10:42 08/05/21 09:19 Midazolam 2 Mg/2 Ml Inj IV 2 mg Q10MIN PRN Administration Sedation Multi-Ingred Cream/Lotion/Oil/Oint 1 applic 07/29/21 10:42 Mineral Oil/Petrolatum, White Ophth Oint 3.5 Gm OU Q4HR PRN Dry Eye(s) Ondansetron HCl 4 mg 07/28/21 02:11 Ondansetron 4 Mg/2 Ml Inj IV Q8H PRN Nausea And Vomiting Quetiapine Fumarate 200 mg 08/05/21 22:00 08/06/21 21:45 Quetiapine 200 Mg Tab PO 200 mg BID DEMIAN Administration Senna/Docusate Sodium 1 tab 07/29/21 22:00 08/06/21 21:45 Sennosides/Docusate Sodium 8.6/50 Mg Tab FEEDTUBE 1 tab BID DEMIAN Administration Simple Syrup 15 ml 07/29/21 13:01 Simple Syrup 15 Ml FEEDTUBE PRN PRN Hypoglycemia Simple Syrup 30 ml 07/29/21 13:01 Simple Syrup 15 Ml FEEDTUBE PRN PRN Hypoglycemia Sodium Bicarbonate 325 mg 07/29/21 13:01 Sodium Bicarbonate 325 Mg Tab FEEDTUBE PRN PRN For Clogged Feeding Tube Sodium Chloride 10 ml 07/28/21 10:00 08/06/21 21:48 Sodium Chloride 0.9% 10 Ml Flush Syringe IV 10 ml BID DEMIAN Administration Sodium Chloride 10 ml 07/28/21 02:05 Sodium Chloride 0.9% 10 Ml Flush Syringe IV PRN PRN LINE FLUSH
--- NOTE | 2021-08-07 09:29 | Progress Note ---
Assessment and Plan Impression * Acute kidney injury * Respiratory failure * Pulmonary infiltrates * History of breast cancer. [place] to be metastatic with mediastinal and lung masses Recommendations * Acute kidney injury most likely prerenal. Fractional excretion of sodium is 0.13%. * Creatinine stable at 1.5 this AM * currently on 1/2NS, will hold IVF at this time, hydration/nutrition with tube feeds, will restart IVF if needed * UA shows 1+ protein and large blood. Urine specific gravity is also high. * Follow-up results of renal ultrasound as well as vasculitis work-up, pending, hep panel WNL * Vent management as per ICU team * Patient is currently nonoliguric. * Avoid nephrotoxins * Monitor fluid status and electrolytes closely * No indication for renal replacement therapy at this time Subjective Date of service: 08/07/21 Principal diagnosis: Ac hypoxemic resp failure ; AE-COPD; H/O CA Breast; DM II; HTN Interval history: Patient remains on the ventilator. Currently on 30% FiO2. Elizabeth catheter in place, draining urine well Objective - Exam Narrative Exam: General appearance: well-developed, well-nourished, intubated EENT: ATNC, PERRL Neck: no JVD, supple Respiratory: Present: coarse mechanical breath sounds Cardiology: regular, normal heart rate, S1S2, no murmurs Gastrointestinal: normal, normoactive bowel sounds Integumentary: other (No edema) - Vital Signs Vital signs: Vital Signs - 12hr 08/06/21 08/06/21 08/06/21 21:30 21:45 22:01 Temperature Pulse Rate 90 91 H 99 H Pulse Rate [ Anterior Bilateral] Respiratory 16 17 16 Rate Respiratory Rate [Anterior Bilateral] Blood Pressure 106/61 106/61 106/61 O2 Sat by Pulse 99 98 97 Oximetry 08/06/21 08/06/21 08/06/21 22:15 22:31 22:45 Temperature Pulse Rate 97 H 96 H 100 H Pulse Rate [ Anterior Bilateral] Respiratory 16 16 17 Rate Respiratory Rate [Anterior Bilateral] Blood Pressure 173/75 97/54 97/54 O2 Sat by Pulse 97 96 97 Oximetry 08/06/21 08/06/21 08/06/21 23:00 23:15 23:30 Temperature Pulse Rate 103 H 106 H 106 H Pulse Rate [ Anterior Bilateral] Respiratory 16 16 16 Rate Respiratory Rate [Anterior Bilateral] Blood Pressure 110/57 110/57 107/58 O2 Sat by Pulse 96 96 96 Oximetry 08/06/21 08/06/21 08/07/21 23:45 23:47 00:00 Temperature 98.7 F Pulse Rate 107 H 108 H Pulse Rate [ Anterior Bilateral] Respiratory 17 17 Rate Respiratory Rate [Anterior Bilateral] Blood Pressure 107/58 102/63 O2 Sat by Pulse 95 96 Oximetry 08/07/21 08/07/21 08/07/21 00:15 00:20 00:30 Temperature Pulse Rate 107 H 108 H 108 H Pulse Rate [ Anterior Bilateral] Respiratory 17 16 Rate Respiratory Rate [Anterior Bilateral] Blood Pressure 102/63 102/63 97/61 O2 Sat by Pulse 96 96 96 Oximetry 08/07/21 08/07/21 08/07/21 00:45 01:00 01:15 Temperature Pulse Rate 106 H 105 H 104 H Pulse Rate [ Anterior Bilateral] Respiratory 15 16 17 Rate Respiratory Rate [Anterior Bilateral] Blood Pressure 97/61 107/60 107/60 O2 Sat by Pulse 96 97 96 Oximetry 08/07/21 08/07/21 08/07/21 01:30 01:45 02:00 Temperature Pulse Rate 102 H 102 H 101 H Pulse Rate [ Anterior Bilateral] Respiratory 16 16 16 Rate Respiratory Rate [Anterior Bilateral] Blood Pressure 105/59 105/59 109/58 O2 Sat by Pulse 97 97 98 Oximetry 08/07/21 08/07/21 08/07/21 02:15 02:30 02:45 Temperature Pulse Rate 99 H 98 H 96 H Pulse Rate [ Anterior Bilateral] Respiratory 16 16 16 Rate Respiratory Rate [Anterior Bilateral] Blood Pressure 109/58 107/59 107/59 O2 Sat by Pulse 98 97 98 Oximetry 08/07/21 08/07/21 08/07/21 03:00 03:15 03:30 Temperature Pulse Rate 97 H 95 H 95 H Pulse Rate [ Anterior Bilateral] Respiratory 16 16 16 Rate Respiratory Rate [Anterior Bilateral] Blood Pressure 109/62 109/62 107/58 O2 Sat by Pulse 98 98 97 Oximetry 08/07/21 08/07/21 08/07/21 03:44 03:45 04:00 Temperature 98.3 F Pulse Rate 93 H 91 H Pulse Rate [ Anterior Bilateral] Respiratory 16 16 Rate Respiratory Rate [Anterior Bilateral] Blood Pressure 107/58 105/57 O2 Sat by Pulse 98 98 Oximetry 08/07/21 08/07/21 08/07/21 04:15 04:30 04:45 Temperature Pulse Rate 90 93 H 94 H Pulse Rate [ Anterior Bilateral] Respiratory 16 16 16 Rate Respiratory Rate [Anterior Bilateral] Blood Pressure 105/57 109/61 109/61 O2 Sat by Pulse 99 98 99 Oximetry 08/07/21 08/07/21 08/07/21 05:00 05:15 05:30 Temperature Pulse Rate 94 H 100 H 99 H Pulse Rate [ Anterior Bilateral] Respiratory 17 16 16 Rate Respiratory Rate [Anterior Bilateral] Blood Pressure 116/66 116/66 116/71 O2 Sat by Pulse 99 99 97 Oximetry 08/07/21 08/07/21 08/07/21 05:45 06:00 06:15 Temperature Pulse Rate 98 H 96 H 95 H Pulse Rate [ Anterior Bilateral] Respiratory 16 16 16 Rate Respiratory Rate [Anterior Bilateral] Blood Pressure 116/71 112/63 112/63 O2 Sat by Pulse 96 97 97 Oximetry 08/07/21 08/07/21 07:52 08:21 Temperature Pulse Rate 89 Pulse Rate [ 99 H Anterior Bilateral] Respiratory Rate Respiratory 20 Rate [Anterior Bilateral] Blood Pressure 107/52 O2 Sat by Pulse 98 Oximetry - Lab 08/07/21 04:00 08/07/21 04:00 Most recent lab results ABG pH 7.368 (7.320-7.450) 08/07/21 04:00 ABG O2 Saturation 95.2 (0-100) 08/07/21 04:00 Calcium 8.2 mg/dL (8.4-10.2) L 08/07/21 04:00 Phosphorus 4.20 mg/dL (2.5-4.5) 08/05/21 04:50 Magnesium 2.60 mg/dL (1.7-2.3) H 08/05/21 04:50 Urine Creatinine 125.6 mg/dL (0.1-20.0) H 08/01/21 Unknown Urine Sodium 12 mmol/L 08/01/21 Unknown Medications & Allergies - Medications Allergies/Adverse Reactions: Allergies No Known Allergies Allergy (Verified 12/24/18 11:45) Home Medications: Home Medications Medication Instructions Recorded Confirmed Last Taken Type traMADoL [Ultram 50 MG tab] 50 mg PO Q6HR PRN #15 tablet 01/25/18 Unknown Rx Active Medications: Generic Name Dose Route Start Last Admin Trade Name Freq PRN Reason Stop Dose Admin Acetaminophen 650 mg 07/28/21 02:11 Acetaminophen 325 Mg Tab PO Q6H PRN Pain MILD(1-3)/Fever >100.5/GARCIA Albuterol/Ipratropium 1 ampul 07/28/21 14:00 08/07/21 08:16 Ipratropium/Albuterol Sulfate 3 Ml Ampul.Neb IH 1 ampul TID DEMIAN Administration Lipase/Protease/Amylase 1 each 07/29/21 13:01 Lipase 10,500/Protease 25,000/Amylase 43,750 (Units) Dr Cap FEEDTUBE PRN PRN For Clogged Feeding Tube Arformoterol Tartrate 15 mcg 07/28/21 20:00 08/07/21 08:16 Arformoterol 15 Mcg/2 Ml Nebu IH 15 mcg Q12HRT DEMIAN Administration Budesonide 0.5 mg 07/28/21 20:00 08/07/21 08:16 Budesonide 0.5 Mg/2 Ml Nebu IH 0.5 mg Q12HRT DEMIAN Administration Dextrose 50 ml 07/28/21 02:11 Dextrose 50% In Water (25gm) 50 Ml Syringe IV Q30MIN PRN Hypoglycemia Protocol Enoxaparin Sodium 100 mg 08/07/21 10:00 Enoxaparin 100 Mg/1 Ml Inj SUB-Q Q12H [facility] Protocol Famotidine 10 mg 08/02/21 10:00 08/06/21 21:45 Famotidine 20 Mg/2 Ml Inj IV 10 mg BID DEMIAN Administration Fentanyl 50 mcg 07/29/21 10:42 08/04/21 09:05 Fentanyl 100 Mcg/2 Ml Inj IV 50 mcg Q10MIN PRN Administration ANALGESIA Hydralazine HCl 10 mg 07/30/21 14:52 08/03/21 17:31 Hydralazine 20 Mg/1 Ml Inj IV 10 mg Q6H PRN Administration SBP > 165 Hydrophilic Ointment 1 applic 07/29/21 10:42 Lip Therapy Vaseline TP Q2HR PRN Dry Lips Fentanyl Citrate 2,000 mcg in 100 mls @ 5.35 mls/hr 07/29/21 11:00 08/07/21 05:03 Fentanyl Drip Premix IV 4 mcg/kg/hr TITR DEMIAN 21.4 mls/hr Administration Protocol 1 MCG/KG/HR Midazolam HCl 100 mg/ Sodium 100 mls @ 2 mls/hr 07/29/21 11:00 08/05/21 11:36 Chloride IV 2 mg/hr TITR DEMIAN 2 mls/hr Titration Protocol 2 MG/HR Norepinephrine 4 mg in 250 mls @ 7.5 mls/hr 07/29/21 21:00 Levophed Drip 4 Mg/Ns 250 Ml IV TITR DEMIAN Protocol 2 MCG/MIN Cefepime HCl 2 gm in 100 mls @ 200 mls/hr 08/02/21 10:00 08/06/21 22:18 Cefepime/Ns 2 Gm/100 Ml IV 08/07/21 22:29 Infused Q12H DEMIAN Infusion Protocol Sodium Chloride 1,000 mls @ 75 mls/hr 08/03/21 10:00 08/06/21 17:58 Nacl 0.45% 1000 Ml IV 75 mls/hr DIRECT DEMIAN Administration Insulin Glargine 30 units 08/05/21 22:00 08/06/21 21:55 Insulin Glargine 100 Units/Ml SUB-Q 30 units QHS DEMIAN Administration Insulin Human Lispro 0 unit 07/29/21 12:00 08/07/21 06:01 Insulin Lispro 100 Unit/Ml SUB-Q Not Given Q6HR [facility] Protocol Magnesium Hydroxide 30 ml 07/28/21 02:11 Magnesium Hydroxide (Mom) Oral Liqd Udc PO Q4H PRN Constipation Midazolam HCl 2 mg 07/29/21 10:42 08/05/21 09:19 Midazolam 2 Mg/2 Ml Inj IV 2 mg Q10MIN PRN Administration Sedation Multi-Ingred Cream/Lotion/Oil/Oint 1 applic 07/29/21 10:42 Mineral Oil/Petrolatum, White Ophth Oint 3.5 Gm OU Q4HR PRN Dry Eye(s) Ondansetron HCl 4 mg 07/28/21 02:11 Ondansetron 4 Mg/2 Ml Inj IV Q8H PRN Nausea And Vomiting Quetiapine Fumarate 200 mg 08/05/21 22:00 08/06/21 21:45 Quetiapine 200 Mg Tab PO 200 mg BID DEMIAN Administration Senna/Docusate Sodium 1 tab 07/29/21 22:00 08/06/21 21:45 Sennosides/Docusate Sodium 8.6/50 Mg Tab FEEDTUBE 1 tab BID DEMIAN Administration Simple Syrup 15 ml 07/29/21 13:01 Simple Syrup 15 Ml FEEDTUBE PRN PRN Hypoglycemia Simple Syrup 30 ml 07/29/21 13:01 Simple Syrup 15 Ml FEEDTUBE PRN PRN Hypoglycemia Sodium Bicarbonate 325 mg 07/29/21 13:01 Sodium Bicarbonate 325 Mg Tab FEEDTUBE PRN PRN For Clogged Feeding Tube Sodium Chloride 10 ml 07/28/21 10:00 08/06/21 21:48 Sodium Chloride 0.9% 10 Ml Flush Syringe IV 10 ml BID DEMIAN Administration Sodium Chloride 10 ml 07/28/21 02:05 Sodium Chloride 0.9% 10 Ml Flush Syringe IV PRN PRN LINE FLUSH
[2021-08-07] MEDS: QUEtiapine 200 MG TAB PO SCH ×2 (09:46→21:34)
[2021-08-07] MEDS: SENNOSIDES/DOCUSATE SODIUM 8.6/50 MG TAB FEEDTUBE SCH ×2 (09:46→21:34)
[2021-08-07] MEDS: FAMOTIDINE 20 MG/2 ML INJ IV SCH ×2 (09:46→21:34)
[2021-08-07] MEDS: ENOXAPARIN 100 MG/1 ML INJ SUB-Q SCH ×2 (09:47→21:47)
[2021-08-07] MEDS: MIDAZOLAM 2 MG/2 ML INJ IV PRN (10:10)
--- NOTE | 2021-08-07 12:55 | Progress Note ---
Assessment and Plan Acute hypoxemic respiratory failure secondary Lung Mass -metastatic breast disease Acute COPD exacerbation Possible hypercapnia History of right breast cancer Leukocytosis DM II Hypertension Hyperlipidemia Tobacco use disorder Hypernatremia Continue with water flushes and hypotonic solutions to treat hypernatremia The airway obstruction precludes liberation from MVS, disucssed extensively with the leonele. The decision is aggressive car and they are agreable to trach to help wean from MVS. Still awaiting her Oncologist's input General surgery consult will be placed Daily SAT,SBT as tolerated - continue daily SAT and SBT assessment as tolerated - continue to titrate supplemental oxygen to keep SpO2 88-90% - VAP bundle addressed, aspiration precautions HOB >30 - continue lung protective strategies - continue bronchodilators (GLADIS & LABA) with pulmonary hygiene per RT - wean per pulmonary driven protocols otherwise - continue accuchecks with glycemic control per SSI (While critically ill target blood glucose of 140-180 mg/dL; avoid hypoglycemia) - sedation prn for target RASS -1 to -2 - avoid nephrotoxins, renally dose all medications - continue to avoid benzodiazepines, reduce the possibility of delirium May need to change Midazolam infusion to Propofol - complete antibiotics per ID recommendations. De-escalate based on culture data and clinical response - prn analgesia per CPOT score - Maintenance of sleep-wake cycle, avoid delirium - enteric nutritional support at goal rate as tolerated - G.I. & VTE prophylaxis - PT/OT/ROM exercises - continue mobility protocols for pressure ulcer prophylaxis - Monitor hemodynamics closely - continue other care per attending / other consultants COVID SPECIFIC INTERVENTIONS -Negative CONDITION: CRITICAL PROGNOSIS: GUARDED CODE STATUS: FULL CODE The high probability of a clinically significant, sudden or life-threatening deterioration of the [respiratory, cardiovascular, oncological & neurologic] system(s) required my full and direct attention, intervention and personal management. The aggregate critical care time was [35] minutes without overlap. Time includes spent on; [x] Data Review and interpretation [x] Patient assessment and monitoring of vital signs [x] Documentation [x] Medication orders and management Subjective Date of service: 08/07/21 Principal diagnosis: Ac hypoxemic resp failure ; AE-COPD; H/O CA Breast; DM II; HTN Interval history: Patient is seen today for: Acute hypoxemic respiratory failure; AE-COPD; Possible hypercapnia; H/O CA Breast; DM II; HTN Seen and examined at bedside; 24hour events reviewed; nursing and respiratory care staff consulted; no adverse overnight events reported to me; resting in bed; remains on MVS; No SBTs today secondary to agitation. Remains on Fentanyl infusion and Midazolam Bronch results positive for malignancy. No fevers no vomiting, no diarrhea. She gets agitated when sedation is turned off for SBT Objective Vital Signs - 12hr 08/07/21 08/07/21 08/07/21 01:00 01:15 01:30 Temperature Pulse Rate 105 H 104 H 102 H Pulse Rate [ Anterior Bilateral] Respiratory 16 17 16 Rate Respiratory Rate [Anterior Bilateral] Blood Pressure 107/60 107/60 105/59 O2 Sat by Pulse 97 96 97 Oximetry 08/07/21 08/07/21 08/07/21 01:45 02:00 02:15 Temperature Pulse Rate 102 H 101 H 99 H Pulse Rate [ Anterior Bilateral] Respiratory 16 16 16 Rate Respiratory Rate [Anterior Bilateral] Blood Pressure 105/59 109/58 109/58 O2 Sat by Pulse 97 98 98 Oximetry 08/07/21 08/07/21 08/07/21 02:30 02:45 03:00 Temperature Pulse Rate 98 H 96 H 97 H Pulse Rate [ Anterior Bilateral] Respiratory 16 16 16 Rate Respiratory Rate [Anterior Bilateral] Blood Pressure 107/59 107/59 109/62 O2 Sat by Pulse 97 98 98 Oximetry 08/07/21 08/07/21 08/07/21 03:15 03:30 03:44 Temperature 98.3 F Pulse Rate 95 H 95 H Pulse Rate [ Anterior Bilateral] Respiratory 16 16 Rate Respiratory Rate [Anterior Bilateral] Blood Pressure 109/62 107/58 O2 Sat by Pulse 98 97 Oximetry 08/07/21 08/07/21 08/07/21 03:45 04:00 04:15 Temperature Pulse Rate 93 H 91 H 90 Pulse Rate [ Anterior Bilateral] Respiratory 16 16 16 Rate Respiratory Rate [Anterior Bilateral] Blood Pressure 107/58 105/57 105/57 O2 Sat by Pulse 98 98 99 Oximetry 08/07/21 08/07/21 08/07/21 04:30 04:45 05:00 Temperature Pulse Rate 93 H 94 H 94 H Pulse Rate [ Anterior Bilateral] Respiratory 16 16 17 Rate Respiratory Rate [Anterior Bilateral] Blood Pressure 109/61 109/61 116/66 O2 Sat by Pulse 98 99 99 Oximetry 08/07/21 08/07/2121 05:15 05:30 05:45 Temperature Pulse Rate 100 H 99 H 98 H Pulse Rate [ Anterior Bilateral] Respiratory 16 16 16 Rate Respiratory Rate [Anterior Bilateral] Blood Pressure 116/66 116/71 116/71 O2 Sat by Pulse 99 97 96 Oximetry 08/07/21 08/07/21 08/07/21 06:00 06:15 06:30 Temperature Pulse Rate 96 H 95 H 94 H Pulse Rate [ Anterior Bilateral] Respiratory 16 16 16 Rate Respiratory Rate [Anterior Bilateral] Blood Pressure 112/63 112/63 113/68 O2 Sat by Pulse 97 97 97 Oximetry 08/07/21 08/07/21 08/07/21 06:45 07:00 07:15 Temperature Pulse Rate 93 H 88 90 Pulse Rate [ Anterior Bilateral] Respiratory 16 16 16 Rate Respiratory Rate [Anterior Bilateral] Blood Pressure 113/68 105/64 105/64 O2 Sat by Pulse 97 98 97 Oximetry 08/07/21 08/07/21 08/07/21 07:30 07:45 07:52 Temperature Pulse Rate 90 92 H 89 Pulse Rate [ Anterior Bilateral] Respiratory 16 16 Rate Respiratory Rate [Anterior Bilateral] Blood Pressure 107/62 107/62 107/52 O2 Sat by Pulse 97 97 98 Oximetry 08/07/21 08/07/21 08/07/21 08:01 08:15 08:21 Temperature Pulse Rate 94 H 102 H Pulse Rate [ 99 H Anterior Bilateral] Respiratory 17 17 Rate Respiratory 20 Rate [Anterior Bilateral] Blood Pressure 125/68 125/68 O2 Sat by Pulse 100 98 Oximetry 08/07/21 08/07/21 08/07/21 08:31 08:45 09:00 Temperature Pulse Rate 91 H 89 87 Pulse Rate [ Anterior Bilateral] Respiratory 16 16 16 Rate Respiratory Rate [Anterior Bilateral] Blood Pressure 93/58 93/58 103/59 O2 Sat by Pulse 100 100 100 Oximetry 08/07/21 08/07/21 08/07/21 09:15 09:30 09:45 Temperature Pulse Rate 88 85 107 H Pulse Rate [ Anterior Bilateral] Respiratory 16 16 15 Rate Respiratory Rate [Anterior Bilateral] Blood Pressure 103/59 108/66 108/66 O2 Sat by Pulse 100 100 100 Oximetry 08/07/21 08/07/21 08/07/21 10:01 10:15 10:31 Temperature Pulse Rate 103 H 108 H 107 H Pulse Rate [ Anterior Bilateral] Respiratory 16 17 16 Rate Respiratory Rate [Anterior Bilateral] Blood Pressure 108/66 149/72 100/63 O2 Sat by Pulse 100 96 97 Oximetry 08/07/21 08/07/21 08/07/21 10:45 11:00 11:15 Temperature Pulse Rate 107 H 104 H 104 H Pulse Rate [ Anterior Bilateral] Respiratory 15 16 20 Rate Respiratory Rate [Anterior Bilateral] Blood Pressure 149/72 111/63 100/63 O2 Sat by Pulse 98 98 98 Oximetry 08/07/21 08/07/21 08/07/21 11:30 11:31 11:45 Temperature Pulse Rate 103 H 103 H 104 H Pulse Rate [ Anterior Bilateral] Respiratory 19 15 Rate Respiratory Rate [Anterior Bilateral] Blood Pressure 119/62 119/62 119/62 O2 Sat by Pulse 98 98 98 Oximetry 08/07/21 12:00 Temperature Pulse Rate 102 H Pulse Rate [ Anterior Bilateral] Respiratory 17 Rate Respiratory Rate [Anterior Bilateral] Blood Pressure 122/66 O2 Sat by Pulse 98 Oximetry Constitutional: no acute distress, other (eldely obese female with mildy increased respiratory effort at rest on MVS) Eyes: non-icteric ENT: oropharynx moist, other (ETT 24 cm [place]) Neck: supple, no lymphadenopathy, no JVD Effort: mildly labored Ascultation: Bilateral: diminished breath sounds, wheezes (central), rales, rhonchi, other (prolonged expiratory phase) Percussion: Bilateral: not dull Cardiovascular: regular rate and rhythm, other (S1,S2) Gastrointestinal: normoactive bowel sounds, soft, non-tender, non-distended Integumentary: normal Extremities: no cyanosis, no edema, pulses normal, no ischemia or petechiae Neurologic: normal mental status, non-focal exam, pupils equal and round Psychiatric: other (Sedated) CBC and BMP: 08/09/21 10:00 08/09/21 10:00 ABG, PT/INR, D-dimer: ABG ABG pH 7.368 (7.320-7.450) 08/07/21 04:00 POC ABG pCO2 42.0 mmHg (32.0-48.0) 08/07/21 04:00 POC ABG pO2 80.1 mmHg (83-108) L 08/07/21 04:00 POC ABG HCO3 23.6 08/07/21 04:00 ABG O2 Saturation 95.2 (0-100) 08/07/21 04:00 PT/INR, D-dimer PT 14.0 Sec. (12.2-14.9) 08/03/21 08:30 INR 1.03 (0.87-1.13) 08/03/21 08:30 D-Dimer 852.47 ng/mlDDU (0-234) H 07/29/21 07:17 Abnormal lab findings: Abnormal Labs 07/27/21 07/27/21 07/27/21 22:57 22:57 22:57 WBC 20.3 H RBC Hgb Hct RDW Lymph % (Auto) Lymph # (Auto) [place] # (Auto) Seg Neutrophils % Seg Neuts % (Manual) 89.0 H Lymphocytes % (Manual) 9.0 L Nucleated RBC % Seg Neutrophils # Seg Neutrophils # Man 18.1 H Lymphocytes # (Manual) Monocytes # (Manual) D-Dimer ABG pH POC ABG pCO2 POC ABG pO2 ABG Hemoglobin ABG Oxyhemoglobin ABG Sodium ABG Potassium ABG Chloride ABG Glucose Carboxyhemoglobin Sodium Potassium 3.5 L Chloride 96.9 L Carbon Dioxide 20 L BUN 19 H Creatinine Glucose 204 H POC Glucose Lactic Acid 7.20 H* Calcium Magnesium AST 98 H ALT 90 H Arterial Blood Glucose Arterial Blood Ionized Calcium Urine WBC (Auto) Urine Creatinine 07/28/21 07/28/21 07/28/21 01:31 07:49 10:00 WBC RBC Hgb Hct RDW Lymph % (Auto) Lymph # (Auto) [place] # (Auto) Seg Neutrophils % Seg Neuts % (Manual) Lymphocytes % (Manual) Nucleated RBC % Seg Neutrophils # Seg Neutrophils # Man Lymphocytes # (Manual) Monocytes # (Manual) D-Dimer ABG pH POC ABG pCO2 POC ABG pO2 ABG Hemoglobin ABG Oxyhemoglobin ABG Sodium ABG Potassium ABG Chloride ABG Glucose Carboxyhemoglobin Sodium Potassium Chloride Carbon Dioxide BUN Creatinine Glucose POC Glucose 194 H Lactic Acid 6.90 H* 6.70 H* Calcium Magnesium AST ALT Arterial Blood Glucose Arterial Blood Ionized Calcium Urine WBC (Auto) Urine Creatinine 07/28/21 07/28/21 07/28/21 12:41 13:21 16:21 WBC RBC Hgb Hct RDW Lymph % (Auto) Lymph # (Auto) [place] # (Auto) Seg Neutrophils % Seg Neuts % (Manual) Lymphocytes % (Manual) Nucleated RBC % Seg Neutrophils # Seg Neutrophils # Man Lymphocytes # (Manual) Monocytes # (Manual) D-Dimer ABG pH POC ABG pCO2 POC ABG pO2 ABG Hemoglobin ABG Oxyhemoglobin ABG Sodium ABG Potassium ABG Chloride ABG Glucose Carboxyhemoglobin Sodium Potassium Chloride Carbon Dioxide BUN Creatinine Glucose POC Glucose 159 H 155 H Lactic Acid 6.10 H* Calcium Magnesium AST ALT Arterial Blood Glucose Arterial Blood Ionized Calcium Urine WBC (Auto) Urine Creatinine 07/28/21 07/29/21 07/29/21 22:03 04:44 04:44 WBC 17.0 H RBC Hgb Hct RDW Lymph % (Auto) Lymph # (Auto) [place] # (Auto) Seg Neutrophils % Seg Neuts % (Manual) 82.0 H Lymphocytes % (Manual) 11.0 L Nucleated RBC % Seg Neutrophils # Seg Neutrophils # Man 13.9 H Lymphocytes # (Manual) Monocytes # (Manual) 1.0 H D-Dimer ABG pH POC ABG pCO2 POC ABG pO2 ABG Hemoglobin ABG Oxyhemoglobin ABG Sodium ABG Potassium ABG Chloride ABG Glucose Carboxyhemoglobin Sodium Potassium Chloride Carbon Dioxide BUN 23 H Creatinine Glucose 196 H POC Glucose 187 H Lactic Acid Calcium Magnesium AST ALT Arterial Blood Glucose Arterial Blood Ionized Calcium Urine WBC (Auto) Urine Creatinine 07/29/21 07/29/21 07/29/21 06:56 07:17 07:17 WBC 26.1 H RBC Hgb Hct 43.3 H RDW 16.0 H Lymph % (Auto) Lymph # (Auto) [place] # (Auto) Seg Neutrophils % Seg Neuts % (Manual) 80.0 H Lymphocytes % (Manual) Nucleated RBC % Seg Neutrophils # Seg Neutrophils # Man 20.9 H Lymphocytes # (Manual) Monocytes # (Manual) D-Dimer ABG pH POC ABG pCO2 POC ABG pO2 ABG Hemoglobin ABG Oxyhemoglobin ABG Sodium ABG Potassium ABG Chloride ABG Glucose Carboxyhemoglobin Sodium Potassium Chloride Carbon Dioxide 20 L D BUN 23 H Creatinine Glucose 308 H POC Glucose 165 H Lactic Acid Calcium Magnesium AST ALT Arterial Blood Glucose Arterial Blood Ionized Calcium Urine WBC (Auto) Urine Creatinine 07/29/21 07/29/21 07/29/21 07:17 09:16 10:30 WBC RBC Hgb Hct RDW Lymph % (Auto) Lymph # (Auto) [place] # (Auto) Seg Neutrophils % Seg Neuts % (Manual) Lymphocytes % (Manual) Nucleated RBC % Seg Neutrophils # Seg Neutrophils # Man Lymphocytes # (Manual) Monocytes # (Manual) D-Dimer 852.47 H ABG pH 7.236 L POC ABG pCO2 56.0 H POC ABG pO2 266.4 H ABG Hemoglobin ABG Oxyhemoglobin 99.1 H ABG Sodium 132.3 L ABG Potassium 4.9 H ABG Chloride ABG Glucose 202 H Carboxyhemoglobin 0.2 L Sodium Potassium Chloride Carbon Dioxide BUN Creatinine Glucose POC Glucose 271 H Lactic Acid Calcium Magnesium AST ALT Arterial Blood Glucose 202 H Arterial Blood Ionized Calcium Urine WBC (Auto) Urine Creatinine 07/29/21 07/29/21 07/30/21 17:54 23:32 05:08 WBC RBC Hgb Hct RDW Lymph % (Auto) Lymph # (Auto) [place] # (Auto) Seg Neutrophils % Seg Neuts % (Manual) Lymphocytes % (Manual) Nucleated RBC % Seg Neutrophils # Seg Neutrophils # Man Lymphocytes # (Manual) Monocytes # (Manual) D-Dimer ABG pH POC ABG pCO2 POC ABG pO2 ABG Hemoglobin ABG Oxyhemoglobin ABG Sodium ABG Potassium ABG Chloride ABG Glucose Carboxyhemoglobin Sodium Potassium Chloride Carbon Dioxide BUN Creatinine Glucose POC Glucose 168 H 205 H 214 H Lactic Acid Calcium Magnesium AST ALT Arterial Blood Glucose Arterial Blood Ionized Calcium Urine WBC (Auto) Urine Creatinine 07/30/21 07/30/21 07/30/21 06:01 11:32 17:34 WBC RBC Hgb Hct RDW Lymph % (Auto) Lymph # (Auto) [place] # (Auto) Seg Neutrophils % Seg Neuts % (Manual) Lymphocytes % (Manual) Nucleated RBC % Seg Neutrophils # Seg Neutrophils # Man Lymphocytes # (Manual) Monocytes # (Manual) D-Dimer ABG pH 7.480 H POC ABG pCO2 23.6 L POC ABG pO2 280.0 H ABG Hemoglobin ABG Oxyhemoglobin 99.3 H ABG Sodium 133.7 L ABG Potassium ABG Chloride ABG Glucose 232 H Carboxyhemoglobin 0 L Sodium Potassium Chloride Carbon Dioxide BUN Creatinine Glucose POC Glucose 207 H 239 H Lactic Acid Calcium Magnesium AST ALT Arterial Blood Glucose 232 H Arterial Blood Ionized Calcium 4.4 L Urine WBC (Auto) Urine Creatinine 07/30/21 07/31/2121 23:39 03:34 04:45 WBC 15.0 H RBC Hgb Hct RDW 15.5 H Lymph % (Auto) Lymph # (Auto) [place] # (Auto) Seg Neutrophils % Seg Neuts % (Manual) 89.0 H Lymphocytes % (Manual) 7.0 L Nucleated RBC % Seg Neutrophils # Seg Neutrophils # Man 13.4 H Lymphocytes # (Manual) 1.1 L Monocytes # (Manual) D-Dimer ABG pH 7.481 H POC ABG pCO2 31.8 L POC ABG pO2 ABG Hemoglobin ABG Oxyhemoglobin ABG Sodium 135.2 L ABG Potassium 3.3 L ABG Chloride ABG Glucose 188 H Carboxyhemoglobin 0.1 L Sodium Potassium Chloride Carbon Dioxide BUN Creatinine Glucose POC Glucose 176 H Lactic Acid Calcium Magnesium AST ALT Arterial Blood Glucose 188 H Arterial Blood Ionized Calcium 4.4 L Urine WBC (Auto) Urine Creatinine 07/31/21 07/31/21 07/31/21 04:45 04:45 11:28 WBC RBC Hgb Hct RDW Lymph % (Auto) Lymph # (Auto) [place] # (Auto) Seg Neutrophils % Seg Neuts % (Manual) Lymphocytes % (Manual) Nucleated RBC % Seg Neutrophils # Seg Neutrophils # Man Lymphocytes # (Manual) Monocytes # (Manual) D-Dimer ABG pH POC ABG pCO2 POC ABG pO2 ABG Hemoglobin ABG Oxyhemoglobin ABG Sodium ABG Potassium ABG Chloride ABG Glucose Carboxyhemoglobin Sodium Potassium 3.4 L Chloride Carbon Dioxide BUN 61 H Creatinine 2.6 H D Glucose 176 H POC Glucose 195 H 245 H Lactic Acid Calcium Magnesium AST ALT Arterial Blood Glucose Arterial Blood Ionized Calcium Urine WBC (Auto) Urine Creatinine 07/31/21 07/31/21 08/01/21 17:32 23:58 01:00 WBC RBC Hgb Hct RDW Lymph % (Auto) Lymph # (Auto) [place] # (Auto) Seg Neutrophils % Seg Neuts % (Manual) Lymphocytes % (Manual) Nucleated RBC % Seg Neutrophils # Seg Neutrophils # Man Lymphocytes # (Manual) Monocytes # (Manual) D-Dimer ABG pH POC ABG pCO2 POC ABG pO2 ABG Hemoglobin ABG Oxyhemoglobin ABG Sodium ABG Potassium ABG Chloride ABG Glucose 284 H Carboxyhemoglobin 0.3 L Sodium Potassium Chloride Carbon Dioxide BUN Creatinine Glucose POC Glucose 251 H 294 H Lactic Acid Calcium Magnesium AST ALT Arterial Blood Glucose 284 H Arterial Blood Ionized Calcium Urine WBC (Auto) Urine Creatinine 08/01/21 08/01/21 08/01/21 05:50 05:50 06:11 WBC 16.2 H RBC Hgb Hct RDW 15.5 H Lymph % (Auto) Lymph # (Auto) [place] # (Auto) Seg Neutrophils % Seg Neuts % (Manual) 93.0 H Lymphocytes % (Manual) 2.0 L Nucleated RBC % 3.0 H Seg Neutrophils # Seg Neutrophils # Man 15.1 H Lymphocytes # (Manual) 0.3 L Monocytes # (Manual) D-Dimer ABG pH POC ABG pCO2 POC ABG pO2 ABG Hemoglobin ABG Oxyhemoglobin ABG Sodium ABG Potassium ABG Chloride ABG Glucose Carboxyhemoglobin Sodium Potassium Chloride Carbon Dioxide BUN 64 H Creatinine 1.9 H Glucose 277 H POC Glucose 256 H Lactic Acid Calcium Magnesium AST ALT Arterial Blood Glucose Arterial Blood Ionized Calcium Urine WBC (Auto) Urine Creatinine 08/01/21 08/01/21 08/01/21 11:39 17:25 23:53 WBC RBC Hgb Hct RDW Lymph % (Auto) Lymph # (Auto) [place] # (Auto) Seg Neutrophils % Seg Neuts % (Manual) Lymphocytes % (Manual) Nucleated RBC % Seg Neutrophils # Seg Neutrophils # Man Lymphocytes # (Manual) Monocytes # (Manual) D-Dimer ABG pH POC ABG pCO2 POC ABG pO2 ABG Hemoglobin ABG Oxyhemoglobin ABG Sodium ABG Potassium ABG Chloride ABG Glucose Carboxyhemoglobin Sodium Potassium Chloride Carbon Dioxide BUN Creatinine Glucose POC Glucose 289 H 275 H 327 H Lactic Acid Calcium Magnesium AST ALT Arterial Blood Glucose Arterial Blood Ionized Calcium Urine WBC (Auto) Urine Creatinine 08/01/21 08/02/21 08/02/21 Unknown 04:00 12:03 WBC RBC Hgb Hct RDW Lymph % (Auto) Lymph # (Auto) [place] # (Auto) Seg Neutrophils % Seg Neuts % (Manual) Lymphocytes % (Manual) Nucleated RBC % Seg Neutrophils # Seg Neutrophils # Man Lymphocytes # (Manual) Monocytes # (Manual) D-Dimer ABG pH POC ABG pCO2 POC ABG pO2 ABG Hemoglobin ABG Oxyhemoglobin ABG Sodium ABG Potassium ABG Chloride ABG Glucose 325 H Carboxyhemoglobin 0.4 L Sodium Potassium Chloride Carbon Dioxide BUN Creatinine Glucose POC Glucose 209 H Lactic Acid Calcium Magnesium AST ALT Arterial Blood Glucose 325 H Arterial Blood Ionized Calcium Urine WBC (Auto) Urine Creatinine 125.6 H 08/02/21 08/02/21 08/02/21 15:30 17:03 23:17 WBC RBC Hgb Hct RDW Lymph % (Auto) Lymph # (Auto) [place] # (Auto) Seg Neutrophils % Seg Neuts % (Manual) Lymphocytes % (Manual) Nucleated RBC % Seg Neutrophils # Seg Neutrophils # Man Lymphocytes # (Manual) Monocytes # (Manual) D-Dimer ABG pH POC ABG pCO2 POC ABG pO2 ABG Hemoglobin ABG Oxyhemoglobin ABG Sodium ABG Potassium ABG Chloride ABG Glucose Carboxyhemoglobin Sodium Potassium Chloride Carbon Dioxide BUN Creatinine Glucose POC Glucose 210 H 265 H Lactic Acid Calcium Magnesium AST ALT Arterial Blood Glucose Arterial Blood Ionized Calcium Urine WBC (Auto) 47.0 H Urine Creatinine 08/02/21 08/02/21 08/03/21 Unknown Unknown 04:17 WBC 14.1 H RBC Hgb Hct RDW 16.3 H Lymph % (Auto) 5.1 L Lymph # (Auto) 0.7 L [place] # (Auto) 0.9 H Seg Neutrophils % 88.7 H Seg Neuts % (Manual) Lymphocytes % (Manual) Nucleated RBC % Seg Neutrophils # 12.5 H Seg Neutrophils # Man Lymphocytes # (Manual) Monocytes # (Manual) D-Dimer ABG pH POC ABG pCO2 POC ABG pO2 ABG Hemoglobin ABG Oxyhemoglobin ABG Sodium ABG Potassium ABG Chloride ABG Glucose Carboxyhemoglobin Sodium Potassium Chloride Carbon Dioxide BUN 72 H 72 H Creatinine 1.8 H 1.6 H Glucose 307 H 263 H POC Glucose Lactic Acid Calcium Magnesium AST ALT Arterial Blood Glucose Arterial Blood Ionized Calcium Urine WBC (Auto) Urine Creatinine 08/03/21 08/03/21 08/03/21 04:17 05:30 08:30 WBC 13.9 H RBC Hgb Hct RDW 16.0 H Lymph % (Auto) Lymph # (Auto) [place] # (Auto) Seg Neutrophils % Seg Neuts % (Manual) Lymphocytes % (Manual) Nucleated RBC % Seg Neutrophils # Seg Neutrophils # Man Lymphocytes # (Manual) Monocytes # (Manual) D-Dimer ABG pH POC ABG pCO2 POC ABG pO2 ABG Hemoglobin ABG Oxyhemoglobin ABG Sodium ABG Potassium ABG Chloride ABG Glucose Carboxyhemoglobin Sodium Potassium Chloride Carbon Dioxide BUN Creatinine Glucose POC Glucose 280 H Lactic Acid Calcium Magnesium 3.00 H AST ALT Arterial Blood Glucose Arterial Blood Ionized Calcium Urine WBC (Auto) Urine Creatinine 08/03/21 08/03/21 08/03/21 12:14 13:39 15:11 WBC RBC Hgb Hct RDW Lymph % (Auto) Lymph # (Auto) [place] # (Auto) Seg Neutrophils % Seg Neuts % (Manual) Lymphocytes % (Manual) Nucleated RBC % Seg Neutrophils # Seg Neutrophils # Man Lymphocytes # (Manual) Monocytes # (Manual) D-Dimer ABG pH POC ABG pCO2 POC ABG pO2 ABG Hemoglobin ABG Oxyhemoglobin ABG Sodium ABG Potassium ABG Chloride ABG Glucose 306 H Carboxyhemoglobin 0.3 L Sodium Potassium Chloride Carbon Dioxide BUN Creatinine Glucose POC Glucose 287 H Lactic Acid 2.10 H* Calcium Magnesium AST ALT Arterial Blood Glucose 306 H Arterial Blood Ionized Calcium Urine WBC (Auto) Urine Creatinine 08/03/21 08/03/21 08/04/21 16:52 23:08 04:00 WBC RBC Hgb Hct RDW Lymph % (Auto) Lymph # (Auto) [place] # (Auto) Seg Neutrophils % Seg Neuts % (Manual) Lymphocytes % (Manual) Nucleated RBC % Seg Neutrophils # Seg Neutrophils # Man Lymphocytes # (Manual) Monocytes # (Manual) D-Dimer ABG pH POC ABG pCO2 54.3 H POC ABG pO2 82.2 L ABG Hemoglobin ABG Oxyhemoglobin ABG Sodium 145.1 H ABG Potassium 5.0 H ABG Chloride ABG Glucose 316 H Carboxyhemoglobin 0.3 L Sodium Potassium Chloride Carbon Dioxide BUN Creatinine Glucose POC Glucose 282 H 289 H Lactic Acid Calcium Magnesium AST ALT Arterial Blood Glucose 316 H Arterial Blood Ionized Calcium Urine WBC (Auto) Urine Creatinine 08/04/21 08/04/21 08/04/21 04:38 04:38 05:19 WBC 17.7 H RBC Hgb Hct RDW 16.5 H Lymph % (Auto) Lymph # (Auto) [place] # (Auto) Seg Neutrophils % Seg Neuts % (Manual) Lymphocytes % (Manual) Nucleated RBC % Seg Neutrophils # Seg Neutrophils # Man Lymphocytes # (Manual) Monocytes # (Manual) D-Dimer ABG pH POC ABG pCO2 POC ABG pO2 ABG Hemoglobin ABG Oxyhemoglobin ABG Sodium ABG Potassium ABG Chloride ABG Glucose Carboxyhemoglobin Sodium Potassium Chloride 108.3 H Carbon Dioxide BUN 76 H Creatinine 1.4 H Glucose 310 H POC Glucose 268 H Lactic Acid Calcium Magnesium 2.70 H AST ALT Arterial Blood Glucose Arterial Blood Ionized Calcium Urine WBC (Auto) Urine Creatinine 08/04/21 08/04/21 08/04/21 11:48 16:41 23:49 WBC RBC Hgb Hct RDW Lymph % (Auto) Lymph # (Auto) [place] # (Auto) Seg Neutrophils % Seg Neuts % (Manual) Lymphocytes % (Manual) Nucleated RBC % Seg Neutrophils # Seg Neutrophils # Man Lymphocytes # (Manual) Monocytes # (Manual) D-Dimer ABG pH POC ABG pCO2 POC ABG pO2 ABG Hemoglobin ABG Oxyhemoglobin ABG Sodium ABG Potassium ABG Chloride ABG Glucose Carboxyhemoglobin Sodium Potassium Chloride Carbon Dioxide BUN Creatinine Glucose POC Glucose 197 H 208 H 209 H Lactic Acid Calcium Magnesium AST ALT Arterial Blood Glucose Arterial Blood Ionized Calcium Urine WBC (Auto) Urine Creatinine 08/05/21 08/05/21 08/05/21 04:00 04:50 04:50 WBC 19.0 H RBC Hgb Hct RDW 17.0 H Lymph % (Auto) Lymph # (Auto) [place] # (Auto) Seg Neutrophils % Seg Neuts % (Manual) 75.0 H Lymphocytes % (Manual) 2.0 L Nucleated RBC % Seg Neutrophils # Seg Neutrophils # Man 14.3 H Lymphocytes # (Manual) 0.4 L Monocytes # (Manual) 1.0 H D-Dimer ABG pH 7.314 L POC ABG pCO2 48.9 H POC ABG pO2 ABG Hemoglobin ABG Oxyhemoglobin ABG Sodium ABG Potassium 5.0 H ABG Chloride 109.0 H ABG Glucose 234 H Carboxyhemoglobin 0.4 L Sodium Potassium 5.2 H Chloride 110.0 H Carbon Dioxide BUN 90 H Creatinine 1.8 H Glucose 235 H POC Glucose Lactic Acid Calcium Magnesium 2.60 H AST ALT Arterial Blood Glucose 234 H Arterial Blood Ionized Calcium Urine WBC (Auto) Urine Creatinine 08/05/21 08/05/21 08/05/21 06:05 12:02 17:08 WBC RBC Hgb Hct RDW Lymph % (Auto) Lymph # (Auto) [place] # (Auto) Seg Neutrophils % Seg Neuts % (Manual) Lymphocytes % (Manual) Nucleated RBC % Seg Neutrophils # Seg Neutrophils # Man Lymphocytes # (Manual) Monocytes # (Manual) D-Dimer ABG pH POC ABG pCO2 POC ABG pO2 ABG Hemoglobin ABG Oxyhemoglobin ABG Sodium ABG Potassium ABG Chloride ABG Glucose Carboxyhemoglobin Sodium Potassium Chloride Carbon Dioxide BUN Creatinine Glucose POC Glucose 225 H 193 H 263 H Lactic Acid Calcium Magnesium AST ALT Arterial Blood Glucose Arterial Blood Ionized Calcium Urine WBC (Auto) Urine Creatinine 08/05/21 08/06/21 08/06/21 23:34 05:00 05:00 WBC 16.8 H RBC 3.64 L Hgb Hct RDW 16.6 H Lymph % (Auto) Lymph # (Auto) [place] # (Auto) Seg Neutrophils % Seg Neuts % (Manual) Lymphocytes % (Manual) Nucleated RBC % Seg Neutrophils # Seg Neutrophils # Man Lymphocytes # (Manual) Monocytes # (Manual) D-Dimer ABG pH POC ABG pCO2 POC ABG pO2 ABG Hemoglobin ABG Oxyhemoglobin ABG Sodium ABG Potassium ABG Chloride ABG Glucose Carboxyhemoglobin Sodium Potassium Chloride 109.3 H Carbon Dioxide BUN 89 H Creatinine 1.6 H Glucose 197 H POC Glucose 224 H Lactic Acid Calcium 8.2 L Magnesium AST ALT Arterial Blood Glucose Arterial Blood Ionized Calcium Urine WBC (Auto) Urine Creatinine 08/06/21 08/06/21 08/06/21 05:26 11:38 16:30 WBC RBC Hgb Hct RDW Lymph % (Auto) Lymph # (Auto) [place] # (Auto) Seg Neutrophils % Seg Neuts % (Manual) Lymphocytes % (Manual) Nucleated RBC % Seg Neutrophils # Seg Neutrophils # Man Lymphocytes # (Manual) Monocytes # (Manual) D-Dimer ABG pH POC ABG pCO2 POC ABG pO2 ABG Hemoglobin ABG Oxyhemoglobin ABG Sodium ABG Potassium ABG Chloride ABG Glucose Carboxyhemoglobin Sodium Potassium Chloride Carbon Dioxide BUN Creatinine Glucose POC Glucose 168 H 160 H 135 H Lactic Acid Calcium Magnesium AST ALT Arterial Blood Glucose Arterial Blood Ionized Calcium Urine WBC (Auto) Urine Creatinine 08/06/21 08/07/21 08/07/21 23:08 04:00 04:00 WBC 13.6 H RBC 3.30 L Hgb 9.5 L Hct 29.2 L RDW 16.7 H Lymph % (Auto) Lymph # (Auto) [place] # (Auto) Seg Neutrophils % Seg Neuts % (Manual) Lymphocytes % (Manual) Nucleated RBC % Seg Neutrophils # Seg Neutrophils # Man Lymphocytes # (Manual) Monocytes # (Manual) D-Dimer ABG pH POC ABG pCO2 POC ABG pO2 ABG Hemoglobin ABG Oxyhemoglobin ABG Sodium ABG Potassium ABG Chloride ABG Glucose Carboxyhemoglobin Sodium 146 H Potassium Chloride 111.4 H Carbon Dioxide BUN 78 H Creatinine 1.5 H Glucose 143 H POC Glucose 125 H Lactic Acid Calcium 8.2 L Magnesium AST ALT Arterial Blood Glucose Arterial Blood Ionized Calcium Urine WBC (Auto) Urine Creatinine 08/07/21 08/07/21 08/07/21 04:00 05:16 12:12 WBC RBC Hgb Hct RDW Lymph % (Auto) Lymph # (Auto) [place] # (Auto) Seg Neutrophils % Seg Neuts % (Manual) Lymphocytes % (Manual) Nucleated RBC % Seg Neutrophils # Seg Neutrophils # Man Lymphocytes # (Manual) Monocytes # (Manual) D-Dimer ABG pH POC ABG pCO2 POC ABG pO2 80.1 L ABG Hemoglobin 9.8 L ABG Oxyhemoglobin ABG Sodium ABG Potassium ABG Chloride 111.0 H ABG Glucose 157 H Carboxyhemoglobin 0.3 L Sodium Potassium Chloride Carbon Dioxide BUN Creatinine Glucose POC Glucose 144 H 125 H Lactic Acid Calcium Magnesium AST ALT Arterial Blood Glucose 157 H Arterial Blood Ionized Calcium 4.5 L Urine WBC (Auto) Urine Creatinine Chest x-ray: image reviewed Allied health notes reviewed: RT
--- NOTE | 2021-08-07 16:07 | Progress Note ---
<AMYKIMMY CalvoEtelvina - Last Filed: 08/07/21 16:04> Assessment and Plan Assessment and plan: This is a 66-year-old female with HTN, DM, HLD and COPD admitted for acute hypoxic respiratory failure, COPD exacerbation, pneumonia and left lower leg DVT Neuro: Acute metabolic encephalopathy -Sedated with Versed and fentanyl, Seroquel -RASS goal -2 to -3 -Avoid delirium -Reorientation as needed -Bilateral restraints for safety Cardio: h/o HTN, s/p cardiac arrest, h/o HLD -Echocardiogram completed-> EF 50 to 55% with mild diastolic dysfunction -Blood pressure monitor per protocol -Patient had cardiac arrest on 07/29 and was intubated -Antihypertensives prn Respiratory: Acute hypoxic respiratory failure, COPD exacerbation -CCM consulted, appreciate recommendations -VAP bundle -Daily SBT and SAT trials as tolerated -A.m. vent settings: Assist-control, rate 16, tidal volume 450, PEEP 6, FiO2 30% -Intubated with 7.50 ETT at 22 at the lips on 07/29 -Daily ABG and CXR -Continue SPO2 monitoring -Solu-Medrol -Surgery consult for possible trach GI: MO -NTR consult for tube feeding -BR: Senokot -24-hour net + [phone] -PPI -We will give rectal suppository today, patient is already on Senokot; unknown BM : Acute kidney injury likely 2/2 vasomotor nephropathy -Nephrology consulted, appreciate recommendations -Presented with a BUN/creatinine of 1.9/19 but up trended to 2.6/61 on 07/31 -08/01 FeNA calculated at 0.13-> indicating prerenal -Strict intake and output -Avoid nephrotoxic medications -Renally dose medications -Elizabeth in place; Elizabeth changed on 08/05 ID: Acute sepsis, pneumonia -Infectious disease consulted patient recommendations -ABX therapy: Cefepime -07/27 BC x2 with no growth after 4 days -07/29 tracheal aspirate with no growth -Monitor CBCs and fever curve Heme: Left lower leg DVT, leukocytosis -Patient is on Lovenox -SCDs to bilateral lower extremities while in bed -Trend CBC -evidenced on BLE US Oncology: h/o breast cancer, Lung mass, breast carcinoma with metastasis -CXR shows suspicious nodular density at the left base -08/02 bronchoscopy -Heme/oncology consulted, appreciate recommendations -Heme/oncology recommended biopsy which was performed -08/02 bronchoscopy completed; washings and brush sent for cytology, cell count and AFB-> preliminary results obtained, see report -08/02: AFB from bronc negative -08/02 PTH surgical report: [facility], [place], HER-2 negative, TTF1 and HMB 4 5 are not expressed -CEA low -Awaiting possible transfer to outside facility -Attempting to contact patient's established oncologist Dr. Wade at [place] at [phone] Endo: h/o DM -SSI -Avoid hypoglycemia -Lantus, titrate as needed The high probability of a clinically significant, sudden or life threatening deterioration of the [multi] system(s) required my full and direct attention, intervention and personal management. The aggregate critical care time was [60] minutes. This time is in addition to time spent performing reported procedures but includes the following: [x] Data Review and interpretation [x] Patient assessment and monitoring of vital signs [x] Documentation [x] Medication orders and management Disposition Plan: icu Total Time Spent with Patient (Minutes): 60 History Interval history: This is a 66-year-old female with HTN, DM, HLD and COPD who presented to emergency department on 07/28 with complaints of difficulty in breathing ongoing for the past few days via EMS. En route she was given Solu-Medrol IV magnesium and albuterol nebulizing treatment. Upon arrival to emergency department patient had multiple rounds of embolizing treatments and was subsequently placed on BiPAP with some improvement. Patient has been fully vaccinated. Work-up in the emergency department revealed CXR suspicious for right-sided pneumonia, nodular density in the left base and increased interstitial markings which may be chronic. Patient was admitted to the hospitalist service with electrolyte imbalances, leukocytosis, COPD exacerbation, hypoxia and possible pneumonia. 07/29/2021. Patient seen this morning with Shabbir-Chavira respiration/agonal breathing. RENEE ABREU was called and patient was intubated and placed on mechanical ventilation. Patient transferred to ICU. Critical care/pulmonary consulted. Patient currently with AC mode rate of 30, FiO2 100%, PEEP of 12. Continue IV antibiotics. Consult ID and oncology for further evaluation. Patient will likely need bronchoscopy for further evaluation of the lung mass. Doppler ultrasound revealedLLE DVT. Start anticoagulation. 07/30/2021. Patient appears much improved and more responsive this morning. Patient currently with AC mode ventilation rate of 24, tidal volume 450, PEEP of 8 and FiO2 35%. Spontaneous breathing trials with possible extubation today per pulmonary. Bronchoscopy per pulmonary. Continue Lovenox twice daily for DVT. Continue IV antibiotics for sepsis/pneumonia. ID consultation pending. Follow-up CEA, CA 15-3, [place] 2729. 07/31/2021. Echocardiogram reveals left ventricular size and function are normal. EF 50 to 55% with mild diastolic dysfunction. Patient currently with CPAP/PSV trial 11/02. Anticipate extubation today per pulmonary. Bronchoscopy per pulmonary. Continue Lovenox twice daily for DVT. Continue IV antibiotics for sepsis/pneumonia. ID consultation pending. Follow-up CEA, CA 15-3, [place] 2729. 08/01: ALIYAH 08/02: Patient had a bronchoscopy today. Cell count, cytology and AFB sent from samples. Patient remains sedated on fentanyl and Versed. Patient and daughter Rosana were updated. 08/03: [facility] follow-up on [facility] specimens and was informed patient specimens indicate cancer. Communicated to Dr. Abbott and he stated he will update family. 08/04: Patient remains sedated on fentanyl and Versed, patient has moments of agitation with any stimulation. CPAP trial unable to be completed today due to agitation. 08/05: Patient had low urine output overnight and Elizabeth catheter was changed this a.m. with 2 L of urine output received. Patient did have a increase in creatinine however this may have been obstructive process and nephrology is aware. Hematology/oncology spoke to family who wishes for everything to be done despite bronchial washings with cancer cells. [facility] contacted patient's oncologist to help facilitate transfer. We attempted to hold sedation for CPAP trial however patient became extremely agitated and sedation was restarted. 08/06: Surgery consulted for possible trach. Leukocytosis and renal function slowly improving. No acute events reported overnight. 08/07: Creatinine continues to decrease, patient has slight hyper natremia and hyperchloremia. Patient remains on fentanyl and Versed with periods of agitation. Increasing free water flushes. Hospitalist Physical - Constitutional Vitals: Temp Pulse Resp BP Pulse Ox 98.9 F 102 H 17 122/66 95 08/07/21 12:00 08/07/21 12:00 08/07/21 12:00 08/07/21 12:00 08/07/21 12:00 General appearance: Present: no acute distress, well-nourished, other - EENT Eyes: Present: PERRL, EOM intact ENT: dentition normal - Neck Neck: Present: normal ROM - Respiratory Respiratory effort: normal Respiratory: bilateral: CTA - Cardiovascular Rhythm: regular Heart Sounds: Present: S1 & S2. Absent: systolic murmur, diastolic murmur - Extremities Extremities: no ischemia, pulses intact, pulses symmetrical, normal temperature, normal color Peripheral Pulses: within normal limits - Abdominal General gastrointestinal: soft, non-tender, non-distended, normal bowel sounds - Integumentary Integumentary: Present: warm, dry - Psychiatric Psychiatric: agitated - Neurologic Neurologic: moves all extremities, other (sedated) - Allied Health Allied health notes reviewed: nursing, RT, social work Results - Labs CBC & Chem 7: 08/07/21 04:00 08/07/21 04:00 Labs: Laboratory Last Values WBC 13.6 K/mm3 (4.5-11.0) H 08/07/21 04:00 RBC 3.30 M/mm3 (3.65-5.03) L 08/07/21 04:00 Hgb 9.5 gm/dl (10.1-14.3) L 08/07/21 04:00 Hct 29.2 % (30.3-42.9) L 08/07/21 04:00 MCV 88 fl (79-97) 08/07/21 04:00 MCH 29 pg (28-32) 08/07/21 04:00 MCHC 32 % (30-34) 08/07/21 04:00 RDW 16.7 % (13.2-15.2) H 08/07/21 04:00 Plt Count 221 K/mm3 (140-440) 08/07/21 04:00 Lymph % (Auto) 5.1 % (13.4-35.0) L 08/02/21 Unknown [place] % (Auto) 6.1 % (0.0-7.3) 08/02/21 Unknown Eos % (Auto) 0.0 % (0.0-4.3) 08/02/21 Unknown Baso % (Auto) 0.1 % (0.0-1.8) 08/02/21 Unknown Lymph # (Auto) 0.7 K/mm3 (1.2-5.4) L 08/02/21 Unknown [place] # (Auto) 0.9 K/mm3 (0.0-0.8) H 08/02/21 Unknown Eos # (Auto) 0.0 K/mm3 (0.0-0.4) 08/02/21 Unknown Baso # (Auto) 0.0 K/mm3 (0.0-0.1) 08/02/21 Unknown Add Manual Diff Complete 08/05/21 04:50 Total Counted 100 08/05/21 04:50 Seg Neutrophils % 88.7 % (40.0-70.0) H 08/02/21 Unknown Seg Neuts % (Manual) 75.0 % (40.0-70.0) H 08/05/21 04:50 Band Neutrophils % 8.0 % 08/05/21 04:50 Lymphocytes % (Manual) 2.0 % (13.4-35.0) L 08/05/21 04:50 Monocytes % (Manual) 5.0 % (0.0-7.3) 08/05/21 04:50 Eosinophils % (Manual) 1.0 % (0.0-4.3) 08/05/21 04:50 Metamyelocytes % 6.0 % 08/05/21 04:50 Myelocytes % 3.0 % 08/05/21 04:50 Nucleated RBC % Not Reportable 08/05/21 04:50 Seg Neutrophils # 12.5 K/mm3 (1.8-7.7) H 08/02/21 Unknown Seg Neutrophils # Man 14.3 K/mm3 (1.8-7.7) H 08/05/21 04:50 Band Neutrophils # 1.5 K/mm3 08/05/21 04:50 Lymphocytes # (Manual) 0.4 K/mm3 (1.2-5.4) L 08/05/21 04:50 Abs React Lymphs (Man) 0.0 K/mm3 08/05/21 04:50 Monocytes # (Manual) 1.0 K/mm3 (0.0-0.8) H 08/05/21 04:50 Eosinophils # (Manual) 0.2 K/mm3 (0.0-0.4) 08/05/21 04:50 Basophils # (Manual) 0.0 K/mm3 (0.0-0.1) 08/05/21 04:50 Metamyelocytes # 1.1 K/mm3 08/05/21 04:50 Myelocytes # 0.6 K/mm3 08/05/21 04:50 Promyelocytes # 0.0 K/mm3 08/05/21 04:50 Blast Cells # 0.0 K/mm3 08/05/21 04:50 WBC Morphology Not Reportable 08/05/21 04:50 Hypersegmented Neuts Not Reportable 08/05/21 04:50 Hyposegmented Neuts Not Reportable 08/05/21 04:50 Hypogranular Neuts Not Reportable 08/05/21 04:50 Smudge Cells Not Reportable 08/05/21 04:50 Toxic Granulation Not Reportable 08/05/21 04:50 Toxic Vacuolation Not Reportable 08/05/21 04:50 Dohle Bodies Not Reportable 08/05/21 04:50 Pelger-Huet Anomaly Not Reportable 08/05/21 04:50 Beryl Rods Not Reportable 08/05/21 04:50 Platelet Estimate Consistent w auto 08/05/21 04:50 Clumped Platelets Not Reportable 08/05/21 04:50 Plt Clumps, EDTA Not Reportable 08/05/21 04:50 Large Platelets Not Reportable 08/05/21 04:50 Giant Platelets Not Reportable 08/05/21 04:50 Platelet Satelliting Not Reportable 08/05/21 04:50 Plt Morphology Comment Not Reportable 08/05/21 04:50 RBC Morphology Not Reportable 08/05/21 04:50 Dimorphic RBCs Not Reportable 08/05/21 04:50 Polychromasia Not Reportable 08/05/21 04:50 Hypochromasia Not Reportable 08/05/21 04:50 Poikilocytosis Not Reportable 08/05/21 04:50 Anisocytosis Not Reportable 08/05/21 04:50 Microcytosis Not Reportable 08/05/21 04:50 Macrocytosis Not Reportable 08/05/21 04:50 Spherocytes Not Reportable 08/05/21 04:50 Pappenheimer Bodies Not Reportable 08/05/21 04:50 Sickle Cells Not Reportable 08/05/21 04:50 Target Cells Not Reportable 08/05/21 04:50 Tear Drop Cells Not Reportable 08/05/21 04:50 Ovalocytes Few 08/05/21 04:50 Helmet Cells Not Reportable 08/05/21 04:50 [place] Bodies Not Reportable 08/05/21 04:50 Armstrong Rings Not Reportable 08/05/21 04:50 Estelita Cells Not Reportable 08/05/21 04:50 Bite Cells Not Reportable 08/05/21 04:50 Crenated Cell Not Reportable 08/05/21 04:50 Elliptocytes Not Reportable 08/05/21 04:50 Acanthocytes (Spur) Not Reportable 08/05/21 04:50 Rouleaux Not Reportable 08/05/21 04:50 Hemoglobin C Crystals Not Reportable 08/05/21 04:50 Schistocytes Not Reportable 08/05/21 04:50 Malaria parasites Not Reportable 08/05/21 04:50 Gurmeet Bodies Not Reportable 08/05/21 04:50 Hem Pathologist Commnt No 08/05/21 04:50 PT 14.0 Sec. (12.2-14.9) 08/03/21 08:30 INR 1.03 (0.87-1.13) 08/03/21 08:30 D-Dimer 852.47 ng/mlDDU (0-234) H 07/29/21 07:17 ABG pH 7.368 (7.320-7.450) 08/07/21 04:00 POC ABG pCO2 42.0 mmHg (32.0-48.0) 08/07/21 04:00 POC ABG pO2 80.1 mmHg (83-108) L 08/07/21 04:00 POC ABG HCO3 23.6 08/07/21 04:00 ABG O2 Saturation 95.2 (0-100) 08/07/21 04:00 POC ABG Base Excess -1.6 08/07/21 04:00 ABG Hemoglobin 9.8 (12.0-17.5) L 08/07/21 04:00 ABG Oxyhemoglobin 94.9 (94-98) 08/07/21 04:00 ABG Methemoglobin 0 (0.0-1.5) 08/07/21 04:00 ABG Sodium 142.1 mmol/L (136.0-145.0) 08/07/21 04:00 ABG Potassium 3.9 mmol/L (3.40-4.50) 08/07/21 04:00 ABG Chloride 111.0 mmol/L (98-107) H 08/07/21 04:00 ABG Glucose 157 mg/dL (65-95) H 08/07/21 04:00 Carboxyhemoglobin 0.3 (0.5-1.5) L 08/07/21 04:00 FiO2 % 30.0 08/07/21 04:00 Sodium 146 mmol/L (137-145) H 08/07/21 04:00 Potassium 4.0 mmol/L (3.6-5.0) 08/07/21 04:00 Chloride 111.4 mmol/L (98-107) H 08/07/21 04:00 Carbon Dioxide 27 mmol/L (22-30) 08/07/21 04:00 Anion Gap 12 mmol/L 08/07/21 04:00 BUN 78 mg/dL (7-17) H 08/07/21 04:00 Creatinine 1.5 mg/dL (0.6-1.2) H 08/07/21 04:00 Estimated GFR 42 ml/min 08/07/21 04:00 BUN/Creatinine Ratio 52 % 08/07/21 04:00 Glucose 143 mg/dL (65-100) H 08/07/21 04:00 POC Glucose 125 mg/dL (70-105) H 08/07/21 12:12 Lactic Acid 2.10 mmol/L (0.7-2.0) H* 08/03/21 15:11 Calcium 8.2 mg/dL (8.4-10.2) L 08/07/21 04:00 Phosphorus 4.20 mg/dL (2.5-4.5) 08/05/21 04:50 Magnesium 2.60 mg/dL (1.7-2.3) H 08/05/21 04:50 Total Bilirubin 0.30 mg/dL (0.1-1.2) 07/27/21 22:57 AST 98 units/L (5-40) H 07/27/21 22:57 ALT 90 units/L (7-56) H 07/27/21 22:57 Alkaline Phosphatase 98 units/L (35-129) 07/27/21 22:57 Total Protein 8.0 g/dL (6.3-8.2) 07/27/21 22:57 Albumin 4.2 g/dL (3.9-5) 07/27/21 22:57 Albumin/Globulin Ratio 1.1 % 07/27/21 22:57 Carcinoembryonic Ag <0.5 ng/mL (0.0-2.4) 07/31/21 04:45 Arterial Blood Glucose 157 mg/dL (65-95) H 08/07/21 04:00 Arterial Blood Ionized Calcium 4.5 mg/dL (4.6-5.3) L 08/07/21 04:00 Urine Color Yellow (Yellow) 08/02/21 15:30 Urine Turbidity Cloudy (Clear) 08/02/21 15:30 Urine pH 5.0 (5.0-7.0) 08/02/21 15:30 Ur Specific [place] 1.021 (1.003-1.030) 08/02/21 15:30 Urine Protein 30 mg/dl mg/dL (Negative) 08/02/21 15:30 Urine Glucose (UA) Neg mg/dL (Negative) 08/02/21 15:30 Urine Ketones Neg mg/dL (Negative) 08/02/21 15:30 Urine Blood Lg (Negative) 08/02/21 15:30 Urine Nitrite Neg (Negative) 08/02/21 15:30 Urine Bilirubin Neg (Negative) 08/02/21 15:30 Urine Urobilinogen < 2.0 mg/dL (<2.0) 08/02/21 15:30 Ur Leukocyte Esterase Sm (Negative) 08/02/21 15:30 Urine WBC (Auto) 47.0 /HPF (0.0-6.0) H 08/02/21 15:30 Urine RBC (Auto) 140.0 /HPF (0.0-6.0) 08/02/21 15:30 U Epithel Cells (Auto) < 1.0 /HPF (0-13.0) 08/02/21 15:30 Urine Mucus Few /HPF 08/02/21 15:30 Urine Creatinine 125.6 mg/dL (0.1-20.0) H 08/01/21 Unknown Urine Sodium 12 mmol/L 08/01/21 Unknown Double Strand DNA Ab 1 IU/mL (<=4) 08/02/21 15:40 Coronavirus (PCR) Negative (Negative) 07/29/21 07:58 Hepatitis A IgM Ab Non-reactive (NonReactive) 08/02/21 15:40 Hep Bs Antigen Nonreactive (Negative) 08/02/21 15:40 Hep B Core IgM Ab Non-reactive (NonReactive) 08/02/21 15:40 Hepatitis C Antibody Non-reactive (NonReactive) 08/02/21 15:40 AFB Identification Negative 08/02/21 14:30 Elizabeth/IV: Voiding Method Indwelling Catheter Active Medications - Current Medications Current Medications: Generic Name Dose Route Start Last Admin Trade Name Freq PRN Reason Stop Dose Admin Acetaminophen 650 mg 07/28/21 02:11 Acetaminophen 325 Mg Tab PO Q6H PRN Pain MILD(1-3)/Fever >100.5/GARCIA Albuterol/Ipratropium 1 ampul 07/28/21 14:00 08/07/21 08:16 Ipratropium/Albuterol Sulfate 3 Ml Ampul.Neb IH 1 ampul TID DEMIAN Administration Lipase/Protease/Amylase 1 each 07/29/21 13:01 Lipase 10,500/Protease 25,000/Amylase 43,750 (Units) Dr Gilles WRIGHTTUBE PRN PRN For Clogged Feeding Tube Arformoterol Tartrate 15 mcg 07/28/21 20:00 08/07/21 08:16 Arformoterol 15 Mcg/2 Ml Nebu IH 15 mcg Q12HRT DEMIAN Administration Bisacodyl 10 mg 08/07/21 09:50 Bisacodyl 10 Mg Rect Supp MN QDAY PRN Constip unreliev by MOM/or NPO Budesonide 0.5 mg 07/28/21 20:00 08/07/21 08:16 Budesonide 0.5 Mg/2 Ml Nebu IH 0.5 mg Q12HRT DEMIAN Administration Dextrose 50 ml 07/28/21 02:11 Dextrose 50% In Water (25gm) 50 Ml Syringe IV Q30MIN PRN Hypoglycemia Protocol Enoxaparin Sodium 100 mg 08/07/21 10:00 08/07/21 09:47 Enoxaparin 100 Mg/1 Ml Inj SUB-Q 100 mg Q12H DEMIAN Administration Protocol Famotidine 10 mg 08/02/21 10:00 08/07/21 09:46 Famotidine 20 Mg/2 Ml Inj IV 10 mg BID DEMIAN Administration Fentanyl 50 mcg 07/29/21 10:42 08/04/21 09:05 Fentanyl 100 Mcg/2 Ml Inj IV 50 mcg Q10MIN PRN Administration ANALGESIA Hydralazine HCl 10 mg 07/30/21 14:52 08/03/21 17:31 Hydralazine 20 Mg/1 Ml Inj IV 10 mg Q6H PRN Administration SBP > 165 Hydrophilic Ointment 1 applic 07/29/21 10:42 Lip Therapy Vaseline TP Q2HR PRN Dry Lips Fentanyl Citrate 2,000 mcg in 100 mls @ 5.35 mls/hr 07/29/21 11:00 08/07/21 15:06 Fentanyl Drip Premix IV 3 mcg/kg/hr TITR DEMIAN 16.05 mls/hr Administration Protocol 1 MCG/KG/HR Midazolam HCl 100 mg/ Sodium 100 mls @ 2 mls/hr 07/29/21 11:00 08/05/21 11:36 Chloride IV 2 mg/hr TITR DEMIAN 2 mls/hr Titration Protocol 2 MG/HR Norepinephrine 4 mg in 250 mls @ 7.5 mls/hr 07/29/21 21:00 Levophed Drip 4 Mg/Ns 250 Ml IV TITR DEMIAN Protocol 2 MCG/MIN Cefepime HCl 2 gm in 100 mls @ 200 mls/hr 08/02/21 10:00 08/06/21 22:18 Cefepime/Ns 2 Gm/100 Ml IV 08/07/21 22:29 Infused Q12H [facility] Infusion Protocol Insulin Glargine 30 units 08/05/21 22:00 08/06/21 21:55 Insulin Glargine 100 Units/Ml SUB-Q 30 units QHS [facility] Administration Insulin Human Lispro 0 unit 07/29/21 12:00 08/07/21 06:01 Insulin Lispro 100 Unit/Ml SUB-Q Not Given Q6HR [facility] Protocol Magnesium Hydroxide 30 ml 07/28/21 02:11 Magnesium Hydroxide (Mom) Oral Liqd Udc PO Q4H PRN Constipation Midazolam HCl 2 mg 07/29/21 10:42 08/07/21 10:10 Midazolam 2 Mg/2 Ml Inj IV 2 mg Q10MIN PRN Administration Sedation Multi-Ingred Cream/Lotion/Oil/Oint 1 applic 07/29/21 10:42 Mineral Oil/Petrolatum, White Ophth Oint 3.5 Gm OU Q4HR PRN Dry Eye(s) Ondansetron HCl 4 mg 07/28/21 02:11 Ondansetron 4 Mg/2 Ml Inj IV Q8H PRN Nausea And Vomiting Quetiapine Fumarate 200 mg 08/05/21 22:00 08/07/21 09:46 Quetiapine 200 Mg Tab PO 200 mg BID DEMIAN Administration Senna/Docusate Sodium 1 tab 07/29/21 22:00 08/07/21 09:46 Sennosides/Docusate Sodium 8.6/50 Mg Tab FEEDTUBE 1 tab BID DEMIAN Administration Simple Syrup 15 ml 07/29/21 13:01 Simple Syrup 15 Ml FEEDTUBE PRN PRN Hypoglycemia Simple Syrup 30 ml 07/29/21 13:01 Simple Syrup 15 Ml FEEDTUBE PRN PRN Hypoglycemia Sodium Bicarbonate 325 mg 07/29/21 13:01 Sodium Bicarbonate 325 Mg Tab FEEDTUBE PRN PRN For Clogged Feeding Tube Sodium Chloride 10 ml 07/28/21 10:00 08/06/21 21:48 Sodium Chloride 0.9% 10 Ml Flush Syringe IV 10 ml BID DEMIAN Administration Sodium Chloride 10 ml 07/28/21 02:05 Sodium Chloride 0.9% 10 Ml Flush Syringe IV PRN PRN LINE FLUSH Nutrition/Malnutrition Assess - Dietary Evaluation Nutrition/Malnutrition Findings: Nutrition Notes Start: 07/28/21 14:44 Freq: Status: Active Protocol: Document 08/04/21 12:18 (Rec: 08/04/21 12:22 [id number]) Nutrition Notes Initial or Follow up Reassessment Current Diagnosis COPD,Diabetes,Hypertension, Respiratory Failure Other Pertinent Diagnosis pneu Current Diet Vital AF at 50 ml/hr Labs/Tests BUN 76 Cr 1.4 BG 310 Mg 2.7 Pertinent Medications Solu Medrol Humalog Height 5 ft Weight 107 kg [place] Body Weight (kg) 45.45 BMI 46.0 Weight Status Morbidly Obese Subjective/Other Information TF running at goal rate and no signs of intolerance noted. [facility] specimens indicate cancer. Percent of energy/protein needs met: 96%/67% Burn Absent Trauma Absent Current % PO Negligible Minimum of two criteria No #1 Nutrition Diagnosis Inadequate oral intake Diagnosis Progress(for reassessment Continues documentation) Is patient on ventilator? Yes Is Patient Ambulatory and/or Out of Bed No REE-([place]-confined to bed) 1842.852 Kcal/Kg value to use for calculation 14 Approximate Energy Requirements Using 1498 kcal/Kg Calculation Used for Recommendations Kcal/kg Additional Notes Protein: (up to 2.5g/kg IBW) up to 134g Fluid: 1 ml/kcal or per MD Nutrition Intervention Change Diet Order: continue Nutrition Support: Vital AF 1.2 at 50 ml/hr Flush 75 ml q4h or per MD Kcal 1,440 Protein (gm) 90 Fluid (mL) 973 Goal #1 Meet at least 75% of protein and energy needs via TF Anticipated Discharge Needs: Unable to determine at this time Follow-Up By: 08/08/21 Additional Comments F/u: stable TF, renal function <LINDSAY FARR - Last Filed: 08/09/21 09:10> History Interval history: I saw and evaluated the patient. Discussed with the nurse practitioner and agree with their findings and plan as documented in this note. Hospitalist Physical - Constitutional Vitals: Temp Pulse Resp BP Pulse Ox 99.9 F H 89 16 112/62 97 08/09/21 07:00 08/09/21 08:17 08/09/21 07:16 08/09/21 08:17 08/09/21 08:17 Results - Labs CBC & Chem 7: 08/08/21 06:00 08/08/21 06:00 Labs: Laboratory Last Values WBC 13.8 K/mm3 (4.5-11.0) H 08/08/21 06:00 RBC 3.19 M/mm3 (3.65-5.03) L 08/08/21 06:00 Hgb 9.3 gm/dl (10.1-14.3) L 08/08/21 06:00 Hct 28.4 % (30.3-42.9) L 08/08/21 06:00 MCV 89 fl (79-97) 08/08/21 06:00 MCH 29 pg (28-32) 08/08/21 06:00 MCHC 33 % (30-34) 08/08/21 06:00 RDW 16.4 % (13.2-15.2) H 08/08/21 06:00 Plt Count 225 K/mm3 (140-440) 08/08/21 06:00 Lymph % (Auto) 5.1 % (13.4-35.0) L 08/02/21 Unknown [place] % (Auto) 6.1 % (0.0-7.3) 08/02/21 Unknown Eos % (Auto) 0.0 % (0.0-4.3) 08/02/21 Unknown Baso % (Auto) 0.1 % (0.0-1.8) 08/02/21 Unknown Lymph # (Auto) 0.7 K/mm3 (1.2-5.4) L 08/02/21 Unknown [place] # (Auto) 0.9 K/mm3 (0.0-0.8) H 08/02/21 Unknown Eos # (Auto) 0.0 K/mm3 (0.0-0.4) 08/02/21 Unknown Baso # (Auto) 0.0 K/mm3 (0.0-0.1) 08/02/21 Unknown Add Manual Diff Complete 08/05/21 04:50 Total Counted 100 08/05/21 04:50 Seg Neutrophils % 88.7 % (40.0-70.0) H 08/02/21 Unknown Seg Neuts % (Manual) 75.0 % (40.0-70.0) H 08/05/21 04:50 Band Neutrophils % 8.0 % 08/05/21 04:50 Lymphocytes % (Manual) 2.0 % (13.4-35.0) L 08/05/21 04:50 Monocytes % (Manual) 5.0 % (0.0-7.3) 08/05/21 04:50 Eosinophils % (Manual) 1.0 % (0.0-4.3) 08/05/21 04:50 Metamyelocytes % 6.0 % 08/05/21 04:50 Myelocytes % 3.0 % 08/05/21 04:50 Nucleated RBC % Not Reportable 08/05/21 04:50 Seg Neutrophils # 12.5 K/mm3 (1.8-7.7) H 08/02/21 Unknown Seg Neutrophils # Man 14.3 K/mm3 (1.8-7.7) H 08/05/21 04:50 Band Neutrophils # 1.5 K/mm3 08/05/21 04:50 Lymphocytes # (Manual) 0.4 K/mm3 (1.2-5.4) L 08/05/21 04:50 Abs React Lymphs (Man) 0.0 K/mm3 08/05/21 04:50 Monocytes # (Manual) 1.0 K/mm3 (0.0-0.8) H 08/05/21 04:50 Eosinophils # (Manual) 0.2 K/mm3 (0.0-0.4) 08/05/21 04:50 Basophils # (Manual) 0.0 K/mm3 (0.0-0.1) 08/05/21 04:50 Metamyelocytes # 1.1 K/mm3 08/05/21 04:50 Myelocytes # 0.6 K/mm3 08/05/21 04:50 Promyelocytes # 0.0 K/mm3 08/05/21 04:50 Blast Cells # 0.0 K/mm3 08/05/21 04:50 WBC Morphology Not Reportable 08/05/21 04:50 Hypersegmented Neuts Not Reportable 08/05/21 04:50 Hyposegmented Neuts Not Reportable 08/05/21 04:50 Hypogranular Neuts Not Reportable 08/05/21 04:50 Smudge Cells Not Reportable 08/05/21 04:50 Toxic Granulation Not Reportable 08/05/21 04:50 Toxic Vacuolation Not Reportable 08/05/21 04:50 Dohle Bodies Not Reportable 08/05/21 04:50 Pelger-Huet Anomaly Not Reportable 08/05/21 04:50 Beryl Rods Not Reportable 08/05/21 04:50 Platelet Estimate Consistent w auto 08/05/21 04:50 Clumped Platelets Not Reportable 08/05/21 04:50 Plt Clumps, EDTA Not Reportable 08/05/21 04:50 Large Platelets Not Reportable 08/05/21 04:50 Giant Platelets Not Reportable 08/05/21 04:50 Platelet Satelliting Not Reportable 08/05/21 04:50 Plt Morphology Comment Not Reportable 08/05/21 04:50 RBC Morphology Not Reportable 08/05/21 04:50 Dimorphic RBCs Not Reportable 08/05/21 04:50 Polychromasia Not Reportable 08/05/21 04:50 Hypochromasia Not Reportable 08/05/21 04:50 Poikilocytosis Not Reportable 08/05/21 04:50 Anisocytosis Not Reportable 08/05/21 04:50 Microcytosis Not Reportable 08/05/21 04:50 Macrocytosis Not Reportable 08/05/21 04:50 Spherocytes Not Reportable 08/05/21 04:50 Pappenheimer Bodies Not Reportable 08/05/21 04:50 Sickle Cells Not Reportable 08/05/21 04:50 Target Cells Not Reportable 08/05/21 04:50 Tear Drop Cells Not Reportable 08/05/21 04:50 Ovalocytes Few 08/05/21 04:50 Helmet Cells Not Reportable 08/05/21 04:50 [place] Bodies Not Reportable 08/05/21 04:50 [place] Rings Not Reportable 08/05/21 04:50 [place] Cells Not Reportable 08/05/21 04:50 Bite Cells Not Reportable 08/05/21 04:50 Crenated Cell Not Reportable 08/05/21 04:50 Elliptocytes Not Reportable 08/05/21 04:50 Acanthocytes (Spur) Not Reportable 08/05/21 04:50 Rouleaux Not Reportable 08/05/21 04:50 Hemoglobin C Crystals Not Reportable 08/05/21 04:50 Schistocytes Not Reportable 08/05/21 04:50 Malaria parasites Not Reportable 08/05/21 04:50 [place] Bodies Not Reportable 08/05/21 04:50 Hem Pathologist Commnt No 08/05/21 04:50 PT 14.0 Sec. (12.2-14.9) 08/03/21 08:30 INR 1.03 (0.87-1.13) 08/03/21 08:30 D-Dimer 852.47 ng/mlDDU (0-234) H 07/29/21 07:17 ABG pH 7.368 (7.320-7.450) 08/07/21 04:00 POC ABG pCO2 42.0 mmHg (32.0-48.0) 08/07/21 04:00 POC ABG pO2 80.1 mmHg (83-108) L 08/07/21 04:00 POC ABG HCO3 23.6 08/07/21 04:00 ABG O2 Saturation 95.2 (0-100) 08/07/21 04:00 POC ABG Base Excess -1.6 08/07/21 04:00 ABG Hemoglobin 9.8 (12.0-17.5) L 08/07/21 04:00 ABG Oxyhemoglobin 94.9 (94-98) 08/07/21 04:00 ABG Methemoglobin 0 (0.0-1.5) 08/07/21 04:00 ABG Sodium 142.1 mmol/L (136.0-145.0) 08/07/21 04:00 ABG Potassium 3.9 mmol/L (3.40-4.50) 08/07/21 04:00 ABG Chloride 111.0 mmol/L (98-107) H 08/07/21 04:00 ABG Glucose 157 mg/dL (65-95) H 08/07/21 04:00 Carboxyhemoglobin 0.3 (0.5-1.5) L 08/07/21 04:00 FiO2 % 30.0 08/07/21 04:00 Sodium 147 mmol/L (137-145) H 08/08/21 06:00 Potassium 4.0 mmol/L (3.6-5.0) 08/08/21 06:00 Chloride 112.4 mmol/L (98-107) H 08/08/21 06:00 Carbon Dioxide 27 mmol/L (22-30) 08/08/21 06:00 Anion Gap 12 mmol/L 08/08/21 06:00 BUN 71 mg/dL (7-17) H 08/08/21 06:00 Creatinine 1.4 mg/dL (0.6-1.2) H 08/08/21 06:00 Estimated GFR 46 ml/min 08/08/21 06:00 BUN/Creatinine Ratio 51 % 08/08/21 06:00 Glucose 124 mg/dL (65-100) H 08/08/21 06:00 POC Glucose 127 mg/dL (70-105) H 08/09/21 06:06 Lactic Acid 2.10 mmol/L (0.7-2.0) H* 08/03/21 15:11 Calcium 8.4 mg/dL (8.4-10.2) 08/08/21 06:00 Phosphorus 4.10 mg/dL (2.5-4.5) 08/08/21 06:00 Magnesium 2.20 mg/dL (1.7-2.3) 08/08/21 06:00 Total Bilirubin 0.30 mg/dL (0.1-1.2) 07/27/21 22:57 AST 98 units/L (5-40) H 07/27/21 22:57 ALT 90 units/L (7-56) H 07/27/21 22:57 Alkaline Phosphatase 98 units/L (35-129) 07/27/21 22:57 Total Protein 8.0 g/dL (6.3-8.2) 07/27/21 22:57 Albumin 4.2 g/dL (3.9-5) 07/27/21 22:57 Albumin/Globulin Ratio 1.1 % 07/27/21 22:57 Carcinoembryonic Ag <0.5 ng/mL (0.0-2.4) 07/31/21 04:45 Arterial Blood Glucose 157 mg/dL (65-95) H 08/07/21 04:00 Arterial Blood Ionized Calcium 4.5 mg/dL (4.6-5.3) L 08/07/21 04:00 Urine Color Yellow (Yellow) 08/08/21 20:27 Urine Turbidity Slightly-cloudy (Clear) 08/08/21 20: Urine pH 5.0 (5.0-7.0) 08/08/21 20:27 Ur Specific [place] 1.014 (1.003-1.030) 08/08/21 20: Urine Protein 30 mg/dl mg/dL (Negative) 08/08/21 20: Urine Glucose (UA) Neg mg/dL (Negative) 08/08/21 20: Urine Ketones Neg mg/dL (Negative) 08/08/21 20:27 Urine Blood Mod (Negative) 08/08/21 20: Urine Nitrite Neg (Negative) 08/08/21 20: Urine Bilirubin Neg (Negative) 08/08/21 20: Urine Urobilinogen < 2.0 mg/dL (<2.0) 08/08/21 20:27 Ur Leukocyte Esterase Neg (Negative) 08/08/21 20:27 Urine WBC (Auto) 6.0 /HPF (0.0-6.0) 08/08/21 20:27 Urine RBC (Auto) 6.0 /HPF (0.0-6.0) 08/08/21 20:27 U Epithel Cells (Auto) < 1.0 /HPF (0-13.0) 08/08/21 20:27 Urine Bacteria (Auto) 1+ /HPF (Negative) 08/08/21 20:27 Urine Mucus Few /HPF 08/08/21 20: Urine Yeast (Budding) 1+ /HPF 08/08/21 20:27 Urine Creatinine 125.6 mg/dL (0.1-20.0) H 08/01/21 Unknown Urine Sodium 12 mmol/L 08/01/21 Unknown Double Strand DNA Ab 1 IU/mL (<=4) 08/02/21 15:40 Coronavirus (PCR) Negative (Negative) 07/29/21 07:58 Hepatitis A IgM Ab Non-reactive (NonReactive) 08/02/21 15:40 Hep Bs Antigen Nonreactive (Negative) 08/02/21 15:40 Hep B Core IgM Ab Non-reactive (NonReactive) 08/02/21 15:40 Hepatitis C Antibody Non-reactive (NonReactive) 08/02/21 15:40 AFB Identification Negative 08/02/21 14:30 Microbiology: Microbiology 08/08/21 16:39 Peripheral/Venous Blood Culture - Preliminary Culture in Progress 08/08/21 16:39 Peripheral/Venous Blood Culture - Preliminary Culture in Progress Elizabeth/IV: Voiding Method Indwelling Catheter Active Medications - Current Medications Current Medications: Generic Name Dose Route Start Last Admin Trade Name Freq PRN Reason Stop Dose Admin Acetaminophen 650 mg 07/28/21 02:11 Acetaminophen 325 Mg Tab PO Q6H PRN Pain MILD(1-3)/Fever >100.5/GARCIA Albuterol/Ipratropium 1 ampul 07/28/21 14:00 08/09/21 08:13 Ipratropium/Albuterol Sulfate 3 Ml Ampul.Neb IH 1 ampul TID DEMIAN Administration Lipase/Protease/Amylase 1 each 07/29/21 13:01 Lipase 10,500/Protease 25,000/Amylase 43,750 (Units) Dr Cap FEEDTUBE PRN PRN For Clogged Feeding Tube Arformoterol Tartrate 15 mcg 07/28/21 20:00 08/09/21 08:13 Arformoterol 15 Mcg/2 Ml Nebu IH 15 mcg Q12HRT DEMIAN Administration Bisacodyl 10 mg 08/07/21 09:50 Bisacodyl 10 Mg Rect Supp [place] QDAY PRN Constip unreliev by MOM/or NPO Budesonide 0.5 mg 07/28/21 20:00 08/09/21 08:13 Budesonide 0.5 Mg/2 Ml Nebu IH 0.5 mg Q12HRT DEMIAN Administration Dextrose 50 ml 07/28/21 02:11 Dextrose 50% In Water (25gm) 50 Ml Syringe IV Q30MIN PRN Hypoglycemia Protocol Famotidine 10 mg 08/02/21 10:00 08/08/21 22:15 Famotidine 20 Mg/2 Ml Inj IV 10 mg BID DEMIAN Administration Fentanyl 50 mcg 07/29/21 10:42 08/04/21 09:05 Fentanyl 100 Mcg/2 Ml Inj IV 50 mcg Q10MIN PRN Administration ANALGESIA Hydralazine HCl 10 mg 07/30/21 14:52 08/03/21 17:31 Hydralazine 20 Mg/1 Ml Inj IV 10 mg Q6H PRN Administration SBP > 165 Hydrophilic Ointment 1 applic 07/29/21 10:42 Lip Therapy Vaseline TP Q2HR PRN Dry Lips Fentanyl Citrate 2,000 mcg in 100 mls @ 5.35 mls/hr 07/29/21 11:00 08/09/21 01:12 Fentanyl Drip Premix IV 3 mcg/kg/hr TITR DEMIAN 16.05 mls/hr Administration Protocol 1 MCG/KG/HR Midazolam HCl 100 mg/ Sodium 100 mls @ 2 mls/hr 07/29/21 11:00 08/08/21 04:55 Chloride IV 2 mg/hr TITR DEMIAN 2 mls/hr Administration Protocol 2 MG/HR Norepinephrine 4 mg in 250 mls @ 7.5 mls/hr 07/29/21 21:00 Levophed Drip 4 Mg/Ns 250 Ml IV TITR DEMIAN Protocol 2 MCG/MIN Insulin Glargine 30 units 08/05/21 22:00 08/08/21 22:18 Insulin Glargine 100 Units/Ml SUB-Q 30 units QHS DEMIAN Administration Insulin Human Lispro 0 unit 07/29/21 12:00 08/09/21 06:21 Insulin Lispro 100 Unit/Ml SUB-Q Not Given Q6HR [facility] Protocol Magnesium Hydroxide 30 ml 07/28/21 02:11 Magnesium Hydroxide (Mom) Oral Liqd Udc PO Q4H PRN Constipation Midazolam HCl 2 mg 07/29/21 10:42 08/07/21 10:10 Midazolam 2 Mg/2 Ml Inj IV 2 mg Q10MIN PRN Administration Sedation Multi-Ingred Cream/Lotion/Oil/Oint 1 applic 07/29/21 10:42 Mineral Oil/Petrolatum, White Ophth Oint 3.5 Gm OU Q4HR PRN Dry Eye(s) Quetiapine Fumarate 200 mg 08/05/21 22:00 08/08/21 22:15 Quetiapine 200 Mg Tab PO 200 mg BID DEMIAN Administration Senna/Docusate Sodium 1 tab 07/29/21 22:00 08/08/21 22:15 Sennosides/Docusate Sodium 8.6/50 Mg Tab FEEDTUBE 1 tab BID DEMIAN Administration Simple Syrup 15 ml 07/29/21 13:01 Simple Syrup 15 Ml FEEDTUBE PRN PRN Hypoglycemia Simple Syrup 30 ml 07/29/21 13:01 Simple Syrup 15 Ml FEEDTUBE PRN PRN Hypoglycemia Sodium Bicarbonate 325 mg 07/29/21 13:01 Sodium Bicarbonate 325 Mg Tab FEEDTUBE PRN PRN For Clogged Feeding Tube Sodium Chloride 10 ml 07/28/21 10:00 08/08/21 22:16 Sodium Chloride 0.9% 10 Ml Flush Syringe IV 10 ml BID DEMIAN Administration Sodium Chloride 10 ml 07/28/21 02:05 Sodium Chloride 0.9% 10 Ml Flush Syringe IV PRN PRN LINE FLUSH Nutrition/Malnutrition Assess - Dietary Evaluation Nutrition/Malnutrition Findings: Nutrition Notes Start: 07/28/21 14:44 Freq: Status: Active Protocol: Document 08/08/21 10:20 MK (Rec: 08/08/21 10:27 [id number]) Nutrition Notes Initial or Follow up Reassessment Current Diagnosis COPD,Diabetes,Hypertension, Respiratory Failure Other Pertinent Diagnosis pneu Current Diet Vital AF at 50 ml/hr Labs/Tests Na 147 BUN 71 Cr 1.4 Pertinent Medications Sen[place]ot Height 5 ft Weight 107 kg [place] Body Weight (kg) 45.45 BMI 46.0 Weight Status Morbidly Obese Subjective/Other Information Per chart, pt got rectal suppository yesterday. No BM yet documented. Pt tolerating TF at goal rate. Percent of energy/protein needs met: 96%/67% Burn Absent Trauma Absent GI Symptoms Constipation,Last BM Current % PO Negligible Minimum of two criteria No #1 Nutrition Diagnosis Inadequate oral intake Diagnosis Progress(for reassessment Continues documentation) Is patient on ventilator? Yes Is Patient Ambulatory and/or Out of Bed No REE-([facility]-confined to bed) 1842.852 Kcal/Kg value to use for calculation 14 Approximate Energy Requirements Using 1498 kcal/Kg Calculation Used for Recommendations Kcal/kg Additional Notes Protein: (up to 2.5g/kg IBW) up to 134g Fluid: 1 ml/kcal or per MD Nutrition Intervention Change Diet Order: continue Nutrition Support: Vital AF 1.2 at 50 ml/hr For hypernatermia, flush 250 ml ml q4h or per MD. Once resolved, flush 100 ml q4h. Kcal 1,440 Protein (gm) 90 Fluid (mL) 973 Goal #1 Meet at least 75% of protein and energy needs via TF Anticipated Discharge Needs: Unable to determine at this time Follow-Up By: 08/11/21 Additional Comments F/u: stable TF, BM
--- NOTE | 2021-08-07 16:25 | Progress Note ---
Assessment and Plan Cultures: Blood culture 07/27/2021 no growth Sputum 07/29/2021 usual respiratory leila Urine culture 08/02/2021 no growth A/P: 66-year-old female past medical history metastatic breast cancer, hypertension, diabetes, COPD now with: #Acute sepsis: Remains with low-grade fever, leukocytosis improving. Etiology likely due to pneumonia +/-metastatic breast cancer +/- UTI. Sepsis has been up and down in the setting of recent CODE BLUE. #Acute hypoxic respiratory failure: Currently on the vent. In the setting of pneumonia and metastatic breast cancer to the lungs. Patient has a right upper lobe mass. S/p lung mass biopsy has revealed metastatic breast cancer, triple negative. #Left lower extremity DVT and started on therapeutic Lovenox. #Metastatic breast cancer to the lungs. #WYATT: Renally dose medications. Improving. Recs: -Continue cefepime D6 of 7 -Trend white count, fevers -Elizabeth catheter leaking Guarded prognosis Rossy Gutierrez MD [facility] ([facility]) Office [phone] Subjective Date of service: 08/07/21 Principal diagnosis: Ac hypoxemic resp failure ; AE-COPD; H/O CA Breast; DM II; HTN Interval history: Patient remains critically ill, intubated FiO2 30%, PEEP of 6, sedated, noted grade fever at 100. Objective - Exam Narrative Exam: General appearance: Sedated intubated Eyes: anicteric sclerae, moist conjunctivae; no lid-lag; PERRLA HENT: Normocephalic, Atraumatic; normal external ears, nares open, oropharynx endotracheal tube in place Neck: supple, tracheal midline, no JVD Lungs: Coarse breath sound bilaterally CV: RRR no murmur Abdomen: Soft, nontender, obese Extremities: no edema, no cyanosis Skin: No rash. Psych: Sedated Neuro: Sedated - Constitutional Vitals: Vital Signs Temp Pulse Resp BP Pulse Ox 98.9 F 102 H 17 122/66 95 08/07/21 12:00 08/07/21 12:00 08/07/21 12:00 08/07/21 12:00 08/07/21 12:00 Temperature -Last 24 Hours Temperature 98.9 F Temperature 98.5 F Temperature 98.3 F Temperature 98.7 F Temperature 98.7 F - Labs CBC & Chem 7: 08/07/21 04:00 08/07/21 04:00 Labs: Abnormal lab results 08/06/21 08/06/21 08/07/21 Range/Units 16:30 23:08 04:00 WBC (4.5-11.0) K/mm3 RBC (3.65-5.03) M/mm3 Hgb (10.1-14.3) gm/dl Hct (30.3-42.9) % RDW (13.2-15.2) % POC ABG pO2 (83-108) mmHg ABG Hemoglobin (12.0-17.5) ABG Chloride (98-107) mmol/L ABG Glucose (65-95) mg/dL Carboxyhemoglobin (0.5-1.5) Sodium 146 H (137-145) mmol/L Chloride 111.4 H (98-107) mmol/L BUN 78 H (7-17) mg/dL Creatinine 1.5 H (0.6-1.2) mg/dL Glucose 143 H (65-100) mg/dL POC Glucose 135 H 125 H (70-105) mg/dL Calcium 8.2 L (8.4-10.2) mg/dL Arterial Blood Glucose (65-95) mg/dL Arterial Blood Ionized Calcium (4.6-5.3) mg/dL 08/07/21 08/07/21 08/07/21 Range/Units 04:00 04:00 05:16 WBC 13.6 H (4.5-11.0) K/mm3 RBC 3.30 L (3.65-5.03) M/mm3 Hgb 9.5 L (10.1-14.3) gm/dl Hct 29.2 L (30.3-42.9) % RDW 16.7 H (13.2-15.2) % POC ABG pO2 80.1 L (83-108) mmHg ABG Hemoglobin 9.8 L (12.0-17.5) ABG Chloride 111.0 H (98-107) mmol/L ABG Glucose 157 H (65-95) mg/dL Carboxyhemoglobin 0.3 L (0.5-1.5) Sodium (137-145) mmol/L Chloride (98-107) mmol/L BUN (7-17) mg/dL Creatinine (0.6-1.2) mg/dL Glucose (65-100) mg/dL POC Glucose 144 H (70-105) mg/dL Calcium (8.4-10.2) mg/dL Arterial Blood Glucose 157 H (65-95) mg/dL Arterial Blood Ionized Calcium 4.5 L (4.6-5.3) mg/dL 08/07/21 Range/Units 12:12 WBC (4.5-11.0) K/mm3 RBC (3.65-5.03) M/mm3 Hgb (10.1-14.3) gm/dl Hct (30.3-42.9) % RDW (13.2-15.2) % POC ABG pO2 (83-108) mmHg ABG Hemoglobin (12.0-17.5) ABG Chloride (98-107) mmol/L ABG Glucose (65-95) mg/dL Carboxyhemoglobin (0.5-1.5) Sodium (137-145) mmol/L Chloride (98-107) mmol/L BUN (7-17) mg/dL Creatinine (0.6-1.2) mg/dL Glucose (65-100) mg/dL POC Glucose 125 H (70-105) mg/dL Calcium (8.4-10.2) mg/dL Arterial Blood Glucose (65-95) mg/dL Arterial Blood Ionized Calcium (4.6-5.3) mg/dL
[2021-08-07] MEDS: FREE WATER PO SCH ×2 (18:12→22:20)
[2021-08-07] MEDS: CEFEPIME/NS 2 GM/100 ML 2 GM/100 ML BAG IV SCH ×2 (21:47→22:30)
[2021-08-07] MEDS: INSULIN GLARGINE 100 UNITS/ML SUB-Q SCH (22:31)
[2021-08-08] MEDS: FREE WATER PO SCH ×6 (02:00→22:16)
[2021-08-08] MEDS: MIDAZOLAM 100 MG in SODIUM CHLORIDE 0.9% 80 ML IV SCH (04:55)
[2021-08-08] MEDS: fentaNYL DRIP Premix 2,000 MCG/100 ML BAG IV SCH ×3 (04:56→18:24)
[2021-08-08] MEDS: INSULIN LISPRO 100 UNIT/ML SUB-Q SCH ×4 (05:13→18:28)
[2021-08-08 06:49] LABS: Hematocrit 28.4 % (30.3-42.9); Hemoglobin 9.3 gm/dl (10.1-14.3); Mean Corpuscular HGB Conc 33 % (30-34); Mean Corpuscular Volume 89 fl (79-97); Platelet Count 225 K/mm3 (140-440); Red Blood Count 3.19 M/mm3 (3.65-5.03); Red Cell Distribution Width 16.4 % (13.2-15.2)
[2021-08-08 08:32] LABS: Calcium 8.4 mg/dL (8.4-10.2)
[2021-08-08] MEDS: ARFORMOTEROL 15 MCG/2 ML NEBU IH SCH ×2 (09:09→20:48)
[2021-08-08] MEDS: BUDESONIDE 0.5 MG/2 ML NEBU IH SCH ×2 (09:09→20:48)
[2021-08-08] MEDS: IPRATROPIUM/ALBUTEROL SULFATE 3 ML AMPUL.NEB IH SCH ×3 (09:09→20:48)
--- NOTE | 2021-08-08 09:48 | Progress Note ---
Assessment and Plan Impression * Nonoliguric acute kidney injury secondary to prerenal azotemia --FeNa 0.13%. * Acute hypoxic respiratory failure * Hypernatremia * Pulmonary infiltrates * History of breast cancer. [place] to be metastatic with mediastinal and lung masses Recommendations * Renal function gradually improved * Note increase in Na - free H2O 200ml q4h started yesterday at 1800. Monitor for response * Vent management as per ICU team * Avoid nephrotoxins * Monitor fluid status and electrolytes closely * No indication for renal replacement therapy at this time Subjective Date of service: 08/08/21 Principal diagnosis: Ac hypoxemic resp failure ; AE-COPD; H/O CA Breast; DM II; HTN Interval history: No acute events overnight. Patient remains intubated - TV 450, FiO2 30, PEEP 6. Objective - Vital Signs Vital signs: Vital Signs - 12hr 08/07/21 08/07/21 08/07/21 22:00 22:15 22:31 Temperature Pulse Rate 108 H 107 H 103 H Pulse Rate [ Anterior Bilateral] Pulse Rate [ From Monitor] Respiratory 20 16 14 Rate Respiratory Rate [Anterior Bilateral] Blood Pressure 138/76 138/76 115/66 O2 Sat by Pulse 100 98 97 Oximetry 08/07/21 08/07/21 08/07/21 22:45 23:00 23:15 Temperature Pulse Rate 105 H 103 H 102 H Pulse Rate [ Anterior Bilateral] Pulse Rate [ From Monitor] Respiratory 15 17 16 Rate Respiratory Rate [Anterior Bilateral] Blood Pressure 115/66 110/64 110/64 O2 Sat by Pulse 98 98 98 Oximetry 08/07/21 08/07/21 08/07/21 23:30 23:45 23:57 Temperature Pulse Rate 99 H 97 H 99 H Pulse Rate [ Anterior Bilateral] Pulse Rate [ From Monitor] Respiratory 14 16 17 Rate Respiratory Rate [Anterior Bilateral] Blood Pressure 116/64 116/64 116/64 O2 Sat by Pulse 98 98 98 Oximetry 08/08/21 08/08/21 08/08/21 00:00 00:16 00:30 Temperature 98.8 F Pulse Rate 98 H 99 H 97 H Pulse Rate [ Anterior Bilateral] Pulse Rate [ From Monitor] Respiratory 16 15 13 Rate Respiratory Rate [Anterior Bilateral] Blood Pressure 118/61 118/61 O2 Sat by Pulse 98 98 99 Oximetry 08/08/21 08/08/21 08/08/21 00:46 01:00 01:16 Temperature Pulse Rate 97 H 96 H 94 H Pulse Rate [ Anterior Bilateral] Pulse Rate [ From Monitor] Respiratory 15 16 16 Rate Respiratory Rate [Anterior Bilateral] Blood Pressure 118/61 118/61 110/62 O2 Sat by Pulse 98 99 98 Oximetry 08/08/21 08/08/21 08/08/21 01:30 01:46 02:00 Temperature Pulse Rate 92 H 91 H 92 H Pulse Rate [ Anterior Bilateral] Pulse Rate [ From Monitor] Respiratory 16 16 16 Rate Respiratory Rate [Anterior Bilateral] Blood Pressure 110/62 109/58 109/58 O2 Sat by Pulse 99 98 98 Oximetry 08/08/21 08/08/21 08/08/21 02:16 02:30 02:46 Temperature Pulse Rate 92 H 91 H 92 H Pulse Rate [ Anterior Bilateral] Pulse Rate [ From Monitor] Respiratory 15 16 15 Rate Respiratory Rate [Anterior Bilateral] Blood Pressure 111/62 110/61 110/61 O2 Sat by Pulse 98 98 98 Oximetry 08/08/21 08/08/21 08/08/21 03:00 03:16 03:30 Temperature Pulse Rate 94 H 92 H 91 H Pulse Rate [ Anterior Bilateral] Pulse Rate [ From Monitor] Respiratory 15 16 16 Rate Respiratory Rate [Anterior Bilateral] Blood Pressure 110/61 112/63 112/63 O2 Sat by Pulse 98 98 98 Oximetry 08/08/21 08/08/21 08/08/21 03:46 03:56 04:00 Temperature 98.4 F Pulse Rate 91 H 90 Pulse Rate [ Anterior Bilateral] Pulse Rate [ From Monitor] Respiratory 16 16 Rate Respiratory Rate [Anterior Bilateral] Blood Pressure 112/59 112/59 O2 Sat by Pulse 98 98 Oximetry 08/08/21 08/08/21 08/08/21 04:13 04:16 04:30 Temperature Pulse Rate 90 85 121 H Pulse Rate [ Anterior Bilateral] Pulse Rate [ From Monitor] Respiratory 17 14 Rate Respiratory Rate [Anterior Bilateral] Blood Pressure 115/61 115/61 115/61 O2 Sat by Pulse 98 99 99 Oximetry 08/08/21 08/08/21 08/08/21 04:46 05:00 05:16 Temperature Pulse Rate 114 H 111 H 106 H Pulse Rate [ Anterior Bilateral] Pulse Rate [ From Monitor] Respiratory 16 16 16 Rate Respiratory Rate [Anterior Bilateral] Blood Pressure 171/127 171/127 139/73 O2 Sat by Pulse 97 98 98 Oximetry 08/08/21 08/08/21 08/08/21 05:30 05:46 06:00 Temperature Pulse Rate 106 H 103 H 101 H Pulse Rate [ Anterior Bilateral] Pulse Rate [ From Monitor] Respiratory 16 16 16 Rate Respiratory Rate [Anterior Bilateral] Blood Pressure 171/127 120/64 120/64 O2 Sat by Pulse 98 98 98 Oximetry 08/08/21 08/08/21 08/08/21 06:16 06:30 06:46 Temperature Pulse Rate 100 H 101 H 103 H Pulse Rate [ Anterior Bilateral] Pulse Rate [ From Monitor] Respiratory 16 15 16 Rate Respiratory Rate [Anterior Bilateral] Blood Pressure 107/65 107/65 117/69 O2 Sat by Pulse 98 99 99 Oximetry 08/08/21 08/08/21 08/08/21 07:00 07:16 07:30 Temperature Pulse Rate 106 H 105 H 105 H Pulse Rate [ Anterior Bilateral] Pulse Rate [ From Monitor] Respiratory 13 16 15 Rate Respiratory Rate [Anterior Bilateral] Blood Pressure 117/69 187/78 117/69 O2 Sat by Pulse 100 99 99 Oximetry 08/08/21 08/08/21 08/08/21 07:46 08:00 08:11 Temperature 99.7 F H Pulse Rate 103 H 104 H Pulse Rate [ 107 H Anterior Bilateral] Pulse Rate [ 102 H From Monitor] Respiratory 16 16 16 Rate Respiratory 16 Rate [Anterior Bilateral] Blood Pressure 120/63 134/74 O2 Sat by Pulse 99 99 99 Oximetry - General Appearance General appearance: well-developed, well-nourished EENT: ATNC, other (ETT in place) Respiratory: Present: Other (bilateral rhonchi) Cardiology: regular, S1S2 Gastrointestinal: normal, no tenderness, no distended Integumentary: warm and dry Neurologic: other (sedated) - Lab 08/08/21 06:00 08/08/21 06:00 Most recent lab results ABG pH 7.368 (7.320-7.450) 08/07/21 04:00 ABG O2 Saturation 95.2 (0-100) 08/07/21 04:00 Calcium 8.4 mg/dL (8.4-10.2) 08/08/21 06:00 Phosphorus 4.10 mg/dL (2.5-4.5) 08/08/21 06:00 Magnesium 2.20 mg/dL (1.7-2.3) 08/08/21 06:00 Urine Creatinine 125.6 mg/dL (0.1-20.0) H 08/01/21 Unknown Urine Sodium 12 mmol/L 08/01/21 Unknown Medications & Allergies - Medications Allergies/Adverse Reactions: Allergies No Known Allergies Allergy (Verified 12/24/18 11:45) Home Medications: Home Medications Medication Instructions Recorded Confirmed Last Taken Type traMADoL [Ultram 50 MG tab] 50 mg PO Q6HR PRN #15 tablet 01/25/18 Unknown Rx Active Medications: Generic Name Dose Route Start Last Admin Trade Name Freq PRN Reason Stop Dose Admin Acetaminophen 650 mg 07/28/21 02:11 Acetaminophen 325 Mg Tab PO Q6H PRN Pain MILD(1-3)/Fever >100.5/GARCIA Albuterol/Ipratropium 1 ampul 07/28/21 14:00 08/08/21 09:09 Ipratropium/Albuterol Sulfate 3 Ml Ampul.Neb IH Not Given TID DEMIAN Lipase/Protease/Amylase 1 each 07/29/21 13:01 Lipase 10,500/Protease 25,000/Amylase 43,750 (Units) Dr [place] FEEDTUBE PRN PRN For Clogged Feeding Tube Arformoterol Tartrate 15 mcg 07/28/21 20:00 08/08/21 09:09 Arformoterol 15 Mcg/2 Ml Nebu IH 15 mcg Q12HRT DEMIAN Administration Bisacodyl 10 mg 08/07/21 09:50 Bisacodyl 10 Mg Rect Supp [place] QDAY PRN Constip unreliev by MOM/or NPO Budesonide 0.5 mg 07/28/21 20:00 08/08/21 09:09 Budesonide 0.5 Mg/2 Ml Nebu IH 0.5 mg Q12HRT DEMIAN Administration Dextrose 50 ml 07/28/21 02:11 Dextrose 50% In Water (25gm) 50 Ml Syringe IV Q30MIN PRN Hypoglycemia Protocol Enoxaparin Sodium 100 mg 08/07/21 10:00 08/07/21 21:47 Enoxaparin 100 Mg/1 Ml Inj SUB-Q 100 mg Q12H DEMIAN Administration Protocol Famotidine 10 mg 08/02/21 10:00 08/07/21 21:34 Famotidine 20 Mg/2 Ml Inj IV 10 mg BID DEMIAN Administration Fentanyl 50 mcg 07/29/21 10:42 08/04/21 09:05 Fentanyl 100 Mcg/2 Ml Inj IV 50 mcg Q10MIN PRN Administration ANALGESIA Hydralazine HCl 10 mg 07/30/21 14:52 08/03/21 17:31 Hydralazine 20 Mg/1 Ml Inj IV 10 mg Q6H PRN Administration SBP > 165 Hydrophilic Ointment 1 applic 07/29/21 10:42 Lip Therapy Vaseline TP Q2HR PRN Dry Lips Fentanyl Citrate 2,000 mcg in 100 mls @ 5.35 mls/hr 07/29/21 11:00 08/08/21 04:56 Fentanyl Drip Premix IV 3 mcg/kg/hr TITR DEMIAN 16.05 mls/hr Administration Protocol 1 MCG/KG/HR Midazolam HCl 100 mg/ Sodium 100 mls @ 2 mls/hr 07/29/21 11:00 08/08/21 04:55 Chloride IV 2 mg/hr TITR DEMIAN 2 mls/hr Administration Protocol 2 MG/HR Norepinephrine 4 mg in 250 mls @ 7.5 mls/hr 07/29/21 21:00 Levophed Drip 4 Mg/Ns 250 Ml IV TITR DEMIAN Protocol 2 MCG/MIN Insulin Glargine 30 units 08/05/21 22:00 08/07/21 22:31 Insulin Glargine 100 Units/Ml SUB-Q 30 units QHS DEMIAN Administration Insulin Human Lispro 0 unit 07/29/21 12:00 08/08/21 05:13 Insulin Lispro 100 Unit/Ml SUB-Q Not Given Q6HR [facility] Protocol Magnesium Hydroxide 30 ml 07/28/21 02:11 Magnesium Hydroxide (Mom) Oral Liqd Udc PO Q4H PRN Constipation Midazolam HCl 2 mg 07/29/21 10:42 08/07/21 10:10 Midazolam 2 Mg/2 Ml Inj IV 2 mg Q10MIN PRN Administration Sedation Multi-Ingred Cream/Lotion/Oil/Oint 1 applic 07/29/21 10:42 Mineral Oil/Petrolatum, White Ophth Oint 3.5 Gm OU Q4HR PRN Dry Eye(s) Ondansetron HCl 4 mg 07/28/21 02:11 Ondansetron 4 Mg/2 Ml Inj IV Q8H PRN Nausea And Vomiting Quetiapine Fumarate 200 mg 08/05/21 22:00 08/07/21 21:34 Quetiapine 200 Mg Tab PO 200 mg BID DEMIAN Administration Senna/Docusate Sodium 1 tab 07/29/21 22:00 08/07/21 21:34 Sennosides/Docusate Sodium 8.6/50 Mg Tab FEEDTUBE 1 tab BID DEMIAN Administration Simple Syrup 15 ml 07/29/21 13:01 Simple Syrup 15 Ml FEEDTUBE PRN PRN Hypoglycemia Simple Syrup 30 ml 07/29/21 13:01 Simple Syrup 15 Ml FEEDTUBE PRN PRN Hypoglycemia Sodium Bicarbonate 325 mg 07/29/21 13:01 Sodium Bicarbonate 325 Mg Tab FEEDTUBE PRN PRN For Clogged Feeding Tube Sodium Chloride 10 ml 07/28/21 10:00 08/07/21 21:35 Sodium Chloride 0.9% 10 Ml Flush Syringe IV 10 ml BID DEMIAN Administration Sodium Chloride 10 ml 07/28/21 02:05 Sodium Chloride 0.9% 10 Ml Flush Syringe IV PRN PRN LINE FLUSH
[2021-08-08] MEDS: FAMOTIDINE 20 MG/2 ML INJ IV SCH ×2 (10:03→22:15)
[2021-08-08] MEDS: SENNOSIDES/DOCUSATE SODIUM 8.6/50 MG TAB FEEDTUBE SCH ×2 (10:03→22:15)
[2021-08-08] MEDS: QUEtiapine 200 MG TAB PO SCH ×2 (10:03→22:15)
[2021-08-08] MEDS: ENOXAPARIN 100 MG/1 ML INJ SUB-Q SCH ×2 (10:55→22:18)
--- NOTE | 2021-08-08 11:49 | Electrocardiograph Report ---
[facility] Test Date: 2021-08-08 Test Time: 08:46:53 Pat Name: JAXON MARTI Department: Room: A261 1 Gender: F Paper Sorter: GUILLERMO : 1955 Requested By: KIMMY REYES Order Number: [id number] Reading MD: Rakesh Mercedes Measurements Intervals [place] Rate: 99 P: 90 WV: 117 QRS: 41 QRSD: 80 T: 185 QT: 330 QTc: 425 Interpretive Statements Sinus rhythm T wave inversions, consider lateral ischemia Compared to ECG 07/27/2021 22:18:37 Lateral T wave inversions are more prominent on current ECG Electronically Signed On 08-08-2021 11:49:24 EDT by Rakesh Mercedes
--- NOTE | 2021-08-08 12:30 | Progress Note ---
<GURWINDER LANCASTER Marivel - Last Filed: 08/08/21 12:48> Assessment and Plan Assessment and plan: Assessment and Plan Assessment and plan: This is a 66-year-old female with HTN, DM, HLD and COPD admitted for acute hypoxic respiratory failure, COPD exacerbation, pneumonia and left lower leg DVT Neuro: Acute metabolic encephalopathy; agitatin -Sedated with Versed and fentanyl, Seroquel daily SAT limited by agitation and hypoxia -RASS goal -2 to -3 -Bilateral restraints for safety -update family daily on plan of care Cardio: h/o HTN, s/p cardiac arrest, h/o HLD -Echocardiogram completed-> EF 50 to 55% with mild diastolic dysfunction -Blood pressure monitor per protocol -MAP goal > 65 -Patient had cardiac arrest on 07/29 and was intubated -Antihypertensives prn ST Respiratory: Acute hypoxic respiratory failure, COPD exacerbation; lung ca with mediastinal mass -CCM consulted, appreciate recommendations -VAP bundle -Daily SBT and SAT trials as tolerated -Intubated with 7.50 ETT at 22 at the lips on 07/29 see RT flow sheet for vent settings -Daily ABG and CXR -Continue SPO2 monitoring -Surgery consult for possible trach GI: constipation -TF -nutrition following -BR -PPI : Acute kidney injury likely 2/2 vasomotor nephropathy/pre-renal -Nephrology consulted, appreciate recommendations -08/01 FeNA calculated at 0.13-> indicating prerenal -trend Cr -Strict intake and output -Avoid nephrotoxic medications -Renally dose medications -Elizabeth in place; Elizabeth changed on 08/05 -follow and replace electrolytes as needed ID: Acute sepsis, pneumonia; febrile -ABX therapy: Cefepime -07/27 BC x2 with no growth after 4 days -07/29 tracheal aspirate with no growth -follow culture data -Monitor CBCs and fever curve -febrile to 100.8 this AM -ID following -day 06/01 cefipime Heme: Left lower leg DVT, leukocytosis; lung ca with med mass -cont Lovenox -SCDs to bilateral lower extremities while in bed -Trend CBC -evidenced on BLE US -heme onc following Oncology: h/o breast cancer, Lung mass, breast carcinoma with metastasis -CXR shows suspicious nodular density at the left base -08/02 bronchoscopy -Heme/oncology consulted, appreciate recommendations -08/02 bronchoscopy completed; washings and brush sent for cytology, cell count and AFB-> preliminary results obtained, see report -08/02: AFB from bronc negative -08/02 PTH surgical report: Biomarker ER, [place], HER-2 negative, TTF1 and HMB 4 5 are not expressed -CEA low -Heme onc following ? transfer to higher level of care oncologist Dr. Wade at [place] at [phone] Endo: h/o DM; stress hyperglycemia -SSI -Avoid hypoglycemia -Lantus, titrate as needed The high probability of a clinically significant, sudden or life threatening deterioration of the [multi] system(s) required my full and direct attention, intervention and personal management. The aggregate critical care time was [60] minutes. This time is in addition to time spent performing reported procedures but includes the following: [x] Data Review and interpretation [x] Patient assessment and monitoring of vital signs [x] Documentation [x] Medication orders and management Disposition Plan: icu Total Time Spent with Patient (Minutes): 60 History Interval history: This is a 66-year-old female with HTN, DM, HLD and COPD who presented to emergency department on 07/28 with complaints of difficulty in breathing ongoing for the past few days via EMS. En route she was given Solu-Medrol IV magnesium and albuterol nebulizing treatment. Upon arrival to emergency department patient had multiple rounds of embolizing treatments and was subsequently placed on BiPAP with some improvement. Patient has been fully vaccinated. Work-up in the emergency department revealed CXR suspicious for right-sided pneumonia, nodular density in the left base and increased interstitial markings which may be chronic. Patient was admitted to the hospitalist service with electrolyte imbalances, leukocytosis, COPD exacerbation, hypoxia and possible pneumonia. 07/29/2021. Patient seen this morning with Shabbir-Chavira respiration/agonal breathing. CODE BRADY was called and patient was intubated and placed on mechanical ventilation. Patient transferred to ICU. Critical care/pulmonary consulted. Patient currently with AC mode rate of 30, FiO2 100%, PEEP of 12. Continue IV antibiotics. Consult ID and oncology for further evaluation. Patient will likely need bronchoscopy for further evaluation of the lung mass. Doppler ultrasound revealedLLE DVT. Start anticoagulation. 07/30/2021. Patient appears much improved and more responsive this morning. Patient currently with AC mode ventilation rate of 24, tidal volume 450, PEEP of 8 and FiO2 35%. Spontaneous breathing trials with possible extubation today per pulmonary. Bronchoscopy per pulmonary. Continue Lovenox twice daily for DVT. Continue IV antibiotics for sepsis/pneumonia. ID consultation pending. Follow-up CEA, CA 15-3, [place] 2729. 07/31/2021. Echocardiogram reveals left ventricular size and function are normal. EF 50 to 55% with mild diastolic dysfunction. Patient currently with CPAP/PSV trial 11/02. Anticipate extubation today per pulmonary. Bronchoscopy per pulmonary. Continue Lovenox twice daily for DVT. Continue IV antibiotics for sepsis/pneumonia. ID consultation pending. Follow-up CEA, CA 15-3, [place] 2729. 08/01: AILYAH 08/02: Patient had a bronchoscopy today. Cell count, cytology and AFB sent from samples. Patient remains sedated on fentanyl and Versed. Patient and daughter Rosana were updated. 08/03: [facility] follow-up on [facility] specimens and was informed patient specimens indicate cancer. Communicated to Dr. Abbott and he stated he will update family. 08/04: Patient remains sedated on fentanyl and Versed, patient has moments of agitation with any stimulation. CPAP trial unable to be completed today due to agitation. 08/05: Patient had low urine output overnight and Elizabeth catheter was changed this a.m. with 2 L of urine output received. Patient did have a increase in creatinine however this may have been obstructive process and nephrology is aware. Hematology/oncology spoke to family who wishes for everything to be done despite bronchial washings with cancer cells. [facility] contacted patient's oncologist to help facilitate transfer. We attempted to hold sedation for CPAP trial however patient became extremely agitated and sedation was restarted. 08/06: Surgery consulted for possible trach. Leukocytosis and renal function slowly improving. No acute events reported overnight. 08/07: Creatinine continues to decrease, patient has slight hyper natremia and hyperchloremia. Patient remains on fentanyl and Versed with periods of agitation. Increasing free water flushes. 08-08 improving cr; febrile; family wants full care/full code- heme onc following Disposition Plan: icu Total Time Spent with Patient (Minutes): 60 History Interval history: febrile this AM; improving Cr Hospitalist Physical - Constitutional Vitals: Temp Pulse Resp BP Pulse Ox 100.8 F H 103 H 21 99/63 96 08/08/21 12:00 08/08/21 11:31 08/08/21 11:30 08/08/21 11:31 08/08/21 11:31 General appearance: Present: no acute distress, well-nourished, other - EENT Eyes: Present: PERRL ENT: clear oral mucosa - Neck Neck: Present: supple, normal ROM - Respiratory Respiratory effort: normal - Cardiovascular Rhythm: regular - Extremities Extremities: no ischemia Peripheral Pulses: within normal limits - Abdominal General gastrointestinal: soft - Integumentary Integumentary: Present: clear, warm, dry - Psychiatric Psychiatric: other - Neurologic Neurologic: other - Allied Health Allied health notes reviewed: nursing, social work, case management Results - Labs CBC & Chem 7: 08/08/21 06:00 08/08/21 06:00 Labs: Laboratory Last Values WBC 13.8 K/mm3 (4.5-11.0) H 08/08/21 06:00 RBC 3.19 M/mm3 (3.65-5.03) L 08/08/21 06:00 Hgb 9.3 gm/dl (10.1-14.3) L 08/08/21 06:00 Hct 28.4 % (30.3-42.9) L 08/08/21 06:00 MCV 89 fl (79-97) 08/08/21 06:00 MCH 29 pg (28-32) 08/08/21 06:00 MCHC 33 % (30-34) 08/08/21 06:00 RDW 16.4 % (13.2-15.2) H 08/08/21 06:00 Plt Count 225 K/mm3 (140-440) 08/08/21 06:00 Lymph % (Auto) 5.1 % (13.4-35.0) L 08/02/21 Unknown [place] % (Auto) 6.1 % (0.0-7.3) 08/02/21 Unknown Eos % (Auto) 0.0 % (0.0-4.3) 08/02/21 Unknown Baso % (Auto) 0.1 % (0.0-1.8) 08/02/21 Unknown Lymph # (Auto) 0.7 K/mm3 (1.2-5.4) L 08/02/21 Unknown [place] # (Auto) 0.9 K/mm3 (0.0-0.8) H 08/02/21 Unknown Eos # (Auto) 0.0 K/mm3 (0.0-0.4) 08/02/21 Unknown Baso # (Auto) 0.0 K/mm3 (0.0-0.1) 08/02/21 Unknown Add Manual Diff Complete 08/05/21 04:50 Total Counted 100 08/05/21 04:50 Seg Neutrophils % 88.7 % (40.0-70.0) H 08/02/21 Unknown Seg Neuts % (Manual) 75.0 % (40.0-70.0) H 08/05/21 04:50 Band Neutrophils % 8.0 % 08/05/21 04:50 Lymphocytes % (Manual) 2.0 % (13.4-35.0) L 08/05/21 04:50 Monocytes % (Manual) 5.0 % (0.0-7.3) 08/05/21 04:50 Eosinophils % (Manual) 1.0 % (0.0-4.3) 08/05/21 04:50 Metamyelocytes % 6.0 % 08/05/21 04:50 Myelocytes % 3.0 % 08/05/21 04:50 Nucleated RBC % Not Reportable 08/05/21 04:50 Seg Neutrophils # 12.5 K/mm3 (1.8-7.7) H 08/02/21 Unknown Seg Neutrophils # Man 14.3 K/mm3 (1.8-7.7) H 08/05/21 04:50 Band Neutrophils # 1.5 K/mm3 08/05/21 04:50 Lymphocytes # (Manual) 0.4 K/mm3 (1.2-5.4) L 08/05/21 04:50 Abs React Lymphs (Man) 0.0 K/mm3 08/05/21 04:50 Monocytes # (Manual) 1.0 K/mm3 (0.0-0.8) H 08/05/21 04:50 Eosinophils # (Manual) 0.2 K/mm3 (0.0-0.4) 08/05/21 04:50 Basophils # (Manual) 0.0 K/mm3 (0.0-0.1) 08/05/21 04:50 Metamyelocytes # 1.1 K/mm3 08/05/21 04:50 Myelocytes # 0.6 K/mm3 08/05/21 04:50 Promyelocytes # 0.0 K/mm3 08/05/21 04:50 Blast Cells # 0.0 K/mm3 08/05/21 04:50 WBC Morphology Not Reportable 08/05/21 04:50 Hypersegmented Neuts Not Reportable 08/05/21 04:50 Hyposegmented Neuts Not Reportable 08/05/21 04:50 Hypogranular Neuts Not Reportable 08/05/21 04:50 Smudge Cells Not Reportable 08/05/21 04:50 Toxic Granulation Not Reportable 08/05/21 04:50 Toxic Vacuolation Not Reportable 08/05/21 04:50 Dohle Bodies Not Reportable 08/05/21 04:50 Pelger-Huet Anomaly Not Reportable 08/05/21 04:50 Beryl Rods Not Reportable 08/05/21 04:50 Platelet Estimate Consistent w auto 08/05/21 04:50 Clumped Platelets Not Reportable 08/05/21 04:50 Plt Clumps, EDTA Not Reportable 08/05/21 04:50 Large Platelets Not Reportable 08/05/21 04:50 Giant Platelets Not Reportable 08/05/21 04:50 Platelet Satelliting Not Reportable 08/05/21 04:50 Plt Morphology Comment Not Reportable 08/05/21 04:50 RBC Morphology Not Reportable 08/05/21 04:50 Dimorphic RBCs Not Reportable 08/05/21 04:50 Polychromasia Not Reportable 08/05/21 04:50 Hypochromasia Not Reportable 08/05/21 04:50 Poikilocytosis Not Reportable 08/05/21 04:50 Anisocytosis Not Reportable 08/05/21 04:50 Microcytosis Not Reportable 08/05/21 04:50 Macrocytosis Not Reportable 08/05/21 04:50 Spherocytes Not Reportable 08/05/21 04:50 Pappenheimer Bodies Not Reportable 08/05/21 04:50 Sickle Cells Not Reportable 08/05/21 04:50 Target Cells Not Reportable 08/05/21 04:50 Tear Drop Cells Not Reportable 08/05/21 04:50 Ovalocytes Few 08/05/21 04:50 Helmet Cells Not Reportable 08/05/21 04:50 Paul-Minburn Bodies Not Reportable 08/05/21 04:50 [place] Rings Not Reportable 08/05/21 04:50 Steen Cells Not Reportable 08/05/21 04:50 Bite Cells Not Reportable 08/05/21 04:50 Crenated Cell Not Reportable 08/05/21 04:50 Elliptocytes Not Reportable 08/05/21 04:50 Acanthocytes (Spur) Not Reportable 08/05/21 04:50 Rouleaux Not Reportable 08/05/21 04:50 Hemoglobin C Crystals Not Reportable 08/05/21 04:50 Schistocytes Not Reportable 08/05/21 04:50 Malaria parasites Not Reportable 08/05/21 04:50 Gurmeet Bodies Not Reportable 08/05/21 04:50 Hem Pathologist Commnt No 08/05/21 04:50 PT 14.0 Sec. (12.2-14.9) 08/03/21 08:30 INR 1.03 (0.87-1.13) 08/03/21 08:30 D-Dimer 852.47 ng/mlDDU (0-234) H 07/29/21 07:17 ABG pH 7.368 (7.320-7.450) 08/07/21 04:00 POC ABG pCO2 42.0 mmHg (32.0-48.0) 08/07/21 04:00 POC ABG pO2 80.1 mmHg (83-108) L 08/07/21 04:00 POC ABG HCO3 23.6 08/07/21 04:00 ABG O2 Saturation 95.2 (0-100) 08/07/21 04:00 POC ABG Base Excess -1.6 08/07/21 04:00 ABG Hemoglobin 9.8 (12.0-17.5) L 08/07/21 04:00 ABG Oxyhemoglobin 94.9 (94-98) 08/07/21 04:00 ABG Methemoglobin 0 (0.0-1.5) 08/07/21 04:00 ABG Sodium 142.1 mmol/L (136.0-145.0) 08/07/21 04:00 ABG Potassium 3.9 mmol/L (3.40-4.50) 08/07/21 04:00 ABG Chloride 111.0 mmol/L (98-107) H 08/07/21 04:00 ABG Glucose 157 mg/dL (65-95) H 08/07/21 04:00 Carboxyhemoglobin 0.3 (0.5-1.5) L 08/07/21 04:00 FiO2 % 30.0 08/07/21 04:00 Sodium 147 mmol/L (137-145) H 08/08/21 06:00 Potassium 4.0 mmol/L (3.6-5.0) 08/08/21 06:00 Chloride 112.4 mmol/L (98-107) H 08/08/21 06:00 Carbon Dioxide 27 mmol/L (22-30) 08/08/21 06:00 Anion Gap 12 mmol/L 08/08/21 06:00 BUN 71 mg/dL (7-17) H 08/08/21 06:00 Creatinine 1.4 mg/dL (0.6-1.2) H 08/08/21 06:00 Estimated GFR 46 ml/min 08/08/21 06:00 BUN/Creatinine Ratio 51 % 08/08/21 06:00 Glucose 124 mg/dL (65-100) H 08/08/21 06:00 POC Glucose 126 mg/dL (70-105) H 08/08/21 11:33 Lactic Acid 2.10 mmol/L (0.7-2.0) H* 08/03/21 15:11 Calcium 8.4 mg/dL (8.4-10.2) 08/08/21 06:00 Phosphorus 4.10 mg/dL (2.5-4.5) 08/08/21 06:00 Magnesium 2.20 mg/dL (1.7-2.3) 08/08/21 06:00 Total Bilirubin 0.30 mg/dL (0.1-1.2) 07/27/21 22:57 AST 98 units/L (5-40) H 07/27/21 22:57 ALT 90 units/L (7-56) H 07/27/21 22:57 Alkaline Phosphatase 98 units/L (35-129) 07/27/21 22:57 Total Protein 8.0 g/dL (6.3-8.2) 07/27/21 22:57 Albumin 4.2 g/dL (3.9-5) 07/27/21 22:57 Albumin/Globulin Ratio 1.1 % 07/27/21 22:57 Carcinoembryonic Ag <0.5 ng/mL (0.0-2.4) 07/31/21 04:45 Arterial Blood Glucose 157 mg/dL (65-95) H 08/07/21 04:00 Arterial Blood Ionized Calcium 4.5 mg/dL (4.6-5.3) L 08/07/21 04:00 Urine Color Yellow (Yellow) 08/02/21 15:30 Urine Turbidity Cloudy (Clear) 08/02/21 15:30 Urine pH 5.0 (5.0-7.0) 08/02/21 15:30 Ur Specific [place] 1.021 (1.003-1.030) 08/02/21 15:30 Urine Protein 30 mg/dl mg/dL (Negative) 08/02/21 15:30 Urine Glucose (UA) Neg mg/dL (Negative) 08/02/21 15:30 Urine Ketones Neg mg/dL (Negative) 08/02/21 15:30 Urine Blood Lg (Negative) 08/02/21 15:30 Urine Nitrite Neg (Negative) 08/02/21 15:30 Urine Bilirubin Neg (Negative) 08/02/21 15:30 Urine Urobilinogen < 2.0 mg/dL (<2.0) 08/02/21 15:30 Ur Leukocyte Esterase Sm (Negative) 08/02/21 15:30 Urine WBC (Auto) 47.0 /HPF (0.0-6.0) H 08/02/21 15:30 Urine RBC (Auto) 140.0 /HPF (0.0-6.0) 08/02/21 15:30 U Epithel Cells (Auto) < 1.0 /HPF (0-13.0) 08/02/21 15:30 Urine Mucus Few /HPF 08/02/21 15:30 Urine Creatinine 125.6 mg/dL (0.1-20.0) H 08/01/21 Unknown Urine Sodium 12 mmol/L 08/01/21 Unknown Double Strand DNA Ab 1 IU/mL (<=4) 08/02/21 15:40 Coronavirus (PCR) Negative (Negative) 07/29/21 07:58 Hepatitis A IgM Ab Non-reactive (NonReactive) 08/02/21 15:40 Hep Bs Antigen Nonreactive (Negative) 08/02/21 15:40 Hep B Core IgM Ab Non-reactive (NonReactive) 08/02/21 15:40 Hepatitis C Antibody Non-reactive (NonReactive) 08/02/21 15:40 AFB Identification Negative 08/02/21 14:30 Elizabeth/IV: Voiding Method Indwelling Catheter Active Medications - Current Medications Current Medications: Generic Name Dose Route Start Last Admin Trade Name Freq PRN Reason Stop Dose Admin Acetaminophen 650 mg 07/28/21 02:11 Acetaminophen 325 Mg Tab PO Q6H PRN Pain MILD(1-3)/Fever >100.5/GARCIA Albuterol/Ipratropium 1 ampul 07/28/21 14:00 08/08/21 09:09 Ipratropium/Albuterol Sulfate 3 Ml Ampul.Neb IH Not Given TID DEMIAN Lipase/Protease/Amylase 1 each 07/29/21 13:01 Lipase 10,500/Protease 25,000/Amylase 43,750 (Units) Dr Gilles AMARO PRN PRN For Clogged Feeding Tube Arformoterol Tartrate 15 mcg 07/28/21 20:00 08/08/21 09:09 Arformoterol 15 Mcg/2 Ml Nebu IH 15 mcg Q12HRT DEMIAN Administration Bisacodyl 10 mg 08/07/21 09:50 Bisacodyl 10 Mg Rect Supp [place] QDAY PRN Constip unreliev by MOM/or NPO Budesonide 0.5 mg 07/28/21 20:00 08/08/21 09:09 Budesonide 0.5 Mg/2 Ml Nebu IH 0.5 mg Q12HRT DEMIAN Administration Dextrose 50 ml 07/28/21 02:11 Dextrose 50% In Water (25gm) 50 Ml Syringe IV Q30MIN PRN Hypoglycemia Protocol Enoxaparin Sodium 100 mg 08/07/21 10:00 08/07/21 21:47 Enoxaparin 100 Mg/1 Ml Inj SUB-Q 100 mg Q12H DEMIAN Administration Protocol Famotidine 10 mg 08/02/21 10:00 08/08/21 10:03 Famotidine 20 Mg/2 Ml Inj IV 10 mg BID DEMIAN Administration Fentanyl 50 mcg 07/29/21 10:42 08/04/21 09:05 Fentanyl 100 Mcg/2 Ml Inj IV 50 mcg Q10MIN PRN Administration ANALGESIA Hydralazine HCl 10 mg 07/30/21 14:52 08/03/21 17:31 Hydralazine 20 Mg/1 Ml Inj IV 10 mg Q6H PRN Administration SBP > 165 Hydrophilic Ointment 1 applic 07/29/21 10:42 Lip Therapy Vaseline TP Q2HR PRN Dry Lips Fentanyl Citrate 2,000 mcg in 100 mls @ 5.35 mls/hr 07/29/21 11:00 08/08/21 04:56 Fentanyl Drip Premix IV 3 mcg/kg/hr TITR DEMIAN 16.05 mls/hr Administration Protocol 1 MCG/KG/HR Midazolam HCl 100 mg/ Sodium 100 mls @ 2 mls/hr 07/29/21 11:00 08/08/21 04:55 Chloride IV 2 mg/hr TITR DEMIAN 2 mls/hr Administration Protocol 2 MG/HR Norepinephrine 4 mg in 250 mls @ 7.5 mls/hr 07/29/21 21:00 Levophed Drip 4 Mg/Ns 250 Ml IV TITR DEMIAN Protocol 2 MCG/MIN Insulin Glargine 30 units 08/05/21 22:00 08/07/21 22:31 Insulin Glargine 100 Units/Ml SUB-Q 30 units QHS DEMIAN Administration Insulin Human Lispro 0 unit 07/29/21 12:00 08/08/21 05:13 Insulin Lispro 100 Unit/Ml SUB-Q Not Given Q6HR [facility] Protocol Magnesium Hydroxide 30 ml 07/28/21 02:11 Magnesium Hydroxide (Mom) Oral Liqd Udc PO Q4H PRN Constipation Midazolam HCl 2 mg 07/29/21 10:42 08/07/21 10:10 Midazolam 2 Mg/2 Ml Inj IV 2 mg Q10MIN PRN Administration Sedation Multi-Ingred Cream/Lotion/Oil/Oint 1 applic 07/29/21 10:42 Mineral Oil/Petrolatum, White Ophth Oint 3.5 Gm OU Q4HR PRN Dry Eye(s) Ondansetron HCl 4 mg 07/28/21 02:11 Ondansetron 4 Mg/2 Ml Inj IV Q8H PRN Nausea And Vomiting Quetiapine Fumarate 200 mg 08/05/21 22:00 08/08/21 10:03 Quetiapine 200 Mg Tab PO 200 mg BID DEMIAN Administration Senna/Docusate Sodium 1 tab 07/29/21 22:00 08/08/21 10:03 Sennosides/Docusate Sodium 8.6/50 Mg Tab FEEDTUBE 1 tab BID DEMIAN Administration Simple Syrup 15 ml 07/29/21 13:01 Simple Syrup 15 Ml FEEDTUBE PRN PRN Hypoglycemia Simple Syrup 30 ml 07/29/21 13:01 Simple Syrup 15 Ml FEEDTUBE PRN PRN Hypoglycemia Sodium Bicarbonate 325 mg 07/29/21 13:01 Sodium Bicarbonate 325 Mg Tab FEEDTUBE PRN PRN For Clogged Feeding Tube Sodium Chloride 10 ml 07/28/21 10:00 08/08/21 10:03 Sodium Chloride 0.9% 10 Ml Flush Syringe IV 10 ml BID DEMIAN Administration Sodium Chloride 10 ml 07/28/21 02:05 Sodium Chloride 0.9% 10 Ml Flush Syringe IV PRN PRN LINE FLUSH Nutrition/Malnutrition Assess - Dietary Evaluation Nutrition/Malnutrition Findings: Nutrition Notes Start: 07/28/21 14:44 Freq: Status: Active Protocol: Document 08/08/21 10:20 (Rec: 08/08/21 10:27 [email or web address]) Nutrition Notes Initial or Follow up Reassessment Current Diagnosis COPD,Diabetes,Hypertension, Respiratory Failure Other Pertinent Diagnosis pneu Current Diet Vital AF at 50 ml/hr Labs/Tests Na 147 BUN 71 Cr 1.4 Pertinent Medications Senokot Height 5 ft Weight 107 kg Flasher Body Weight (kg) 45.45 BMI 46.0 Weight Status Morbidly Obese Subjective/Other Information Per chart, pt got rectal suppository yesterday. No BM yet documented. Pt tolerating TF at goal rate. Percent of energy/protein needs met: 96%/67% Burn Absent Trauma Absent GI Symptoms Constipation,Last BM Current % PO Negligible Minimum of two criteria No #1 Nutrition Diagnosis Inadequate oral intake Diagnosis Progress(for reassessment Continues documentation) Is patient on ventilator? Yes Is Patient Ambulatory and/or Out of Bed No REE-([facility]-confined to bed) 1842.852 Kcal/Kg value to use for calculation 14 Approximate Energy Requirements Using 1498 kcal/Kg Calculation Used for Recommendations Kcal/kg Additional Notes Protein: (up to 2.5g/kg IBW) up to 134g Fluid: 1 ml/kcal or per MD Nutrition Intervention Change Diet Order: continue Nutrition Support: Vital AF 1.2 at 50 ml/hr For hypernatermia, flush 250 ml ml q4h or per MD. Once resolved, flush 100 ml q4h. Kcal 1,440 Protein (gm) 90 Fluid (mL) 973 Goal #1 Meet at least 75% of protein and energy needs via TF Anticipated Discharge Needs: Unable to determine at this time Follow-Up By: 08/11/21 Additional Comments F/u: stable TF, BM - Attestation Statement I have reviewed and agreed w/ Malnutrition eval & tx plan: Yes <LINDSAY FARR - Last Filed: 08/09/21 09:07> History Interval history: I saw and evaluated the patient. Discussed with the nurse practitioner and agree with their findings and plan as documented in this note. Hospitalist Physical - Constitutional Vitals: Temp Pulse Resp BP Pulse Ox 99.9 F H 89 16 112/62 97 08/09/21 07:00 08/09/21 08:17 08/09/21 07:16 08/09/21 08:17 08/09/21 08:17 Results - Labs CBC & Chem 7: 08/08/21 06:00 08/08/21 06:00 Labs: Laboratory Last Values WBC 13.8 K/mm3 (4.5-11.0) H 08/08/21 06:00 RBC 3.19 M/mm3 (3.65-5.03) L 08/08/21 06:00 Hgb 9.3 gm/dl (10.1-14.3) L 08/08/21 06:00 Hct 28.4 % (30.3-42.9) L 08/08/21 06:00 MCV 89 fl (79-97) 08/08/21 06:00 MCH 29 pg (28-32) 08/08/21 06:00 MCHC 33 % (30-34) 08/08/21 06:00 RDW 16.4 % (13.2-15.2) H 08/08/21 06:00 Plt Count 225 K/mm3 (140-440) 08/08/21 06:00 Lymph % (Auto) 5.1 % (13.4-35.0) L 08/02/21 Unknown [place] % (Auto) 6.1 % (0.0-7.3) 08/02/21 Unknown Eos % (Auto) 0.0 % (0.0-4.3) 08/02/21 Unknown Baso % (Auto) 0.1 % (0.0-1.8) 08/02/21 Unknown Lymph # (Auto) 0.7 K/mm3 (1.2-5.4) L 08/02/21 Unknown [place] # (Auto) 0.9 K/mm3 (0.0-0.8) H 08/02/21 Unknown Eos # (Auto) 0.0 K/mm3 (0.0-0.4) 08/02/21 Unknown Baso # (Auto) 0.0 K/mm3 (0.0-0.1) 08/02/21 Unknown Add Manual Diff Complete 08/05/21 04:50 Total Counted 100 08/05/21 04:50 Seg Neutrophils % 88.7 % (40.0-70.0) H 08/02/21 Unknown Seg Neuts % (Manual) 75.0 % (40.0-70.0) H 08/05/21 04:50 Band Neutrophils % 8.0 % 08/05/21 04:50 Lymphocytes % (Manual) 2.0 % (13.4-35.0) L 08/05/21 04:50 Monocytes % (Manual) 5.0 % (0.0-7.3) 08/05/21 04:50 Eosinophils % (Manual) 1.0 % (0.0-4.3) 08/05/21 04:50 Metamyelocytes % 6.0 % 08/05/21 04:50 Myelocytes % 3.0 % 08/05/21 04:50 Nucleated RBC % Not Reportable 08/05/21 04:50 Seg Neutrophils # 12.5 K/mm3 (1.8-7.7) H 08/02/21 Unknown Seg Neutrophils # Man 14.3 K/mm3 (1.8-7.7) H 08/05/21 04:50 Band Neutrophils # 1.5 K/mm3 08/05/21 04:50 Lymphocytes # (Manual) 0.4 K/mm3 (1.2-5.4) L 08/05/21 04:50 Abs React Lymphs (Man) 0.0 K/mm3 08/05/21 04:50 Monocytes # (Manual) 1.0 K/mm3 (0.0-0.8) H 08/05/21 04:50 Eosinophils # (Manual) 0.2 K/mm3 (0.0-0.4) 08/05/21 04:50 Basophils # (Manual) 0.0 K/mm3 (0.0-0.1) 08/05/21 04:50 Metamyelocytes # 1.1 K/mm3 08/05/21 04:50 Myelocytes # 0.6 K/mm3 08/05/21 04:50 Promyelocytes # 0.0 K/mm3 08/05/21 04:50 Blast Cells # 0.0 K/mm3 08/05/21 04:50 WBC Morphology Not Reportable 08/05/21 04:50 Hypersegmented Neuts Not Reportable 08/05/21 04:50 Hyposegmented Neuts Not Reportable 08/05/21 04:50 Hypogranular Neuts Not Reportable 08/05/21 04:50 Smudge Cells Not Reportable 08/05/21 04:50 Toxic Granulation Not Reportable 08/05/21 04:50 Toxic Vacuolation Not Reportable 08/05/21 04:50 Dohle Bodies Not Reportable 08/05/21 04:50 Pelger-Huet Anomaly Not Reportable 08/05/21 04:50 Beryl Rods Not Reportable 08/05/21 04:50 Platelet Estimate Consistent w auto 08/05/21 04:50 Clumped Platelets Not Reportable 08/05/21 04:50 Plt Clumps, EDTA Not Reportable 08/05/21 04:50 Large Platelets Not Reportable 08/05/21 04:50 Giant Platelets Not Reportable 08/05/21 04:50 Platelet Satelliting Not Reportable 08/05/21 04:50 Plt Morphology Comment Not Reportable 08/05/21 04:50 RBC Morphology Not Reportable 08/05/21 04:50 Dimorphic RBCs Not Reportable 08/05/21 04:50 Polychromasia Not Reportable 08/05/21 04:50 Hypochromasia Not Reportable 08/05/21 04:50 Poikilocytosis Not Reportable 08/05/21 04:50 Anisocytosis Not Reportable 08/05/21 04:50 Microcytosis Not Reportable 08/05/21 04:50 Macrocytosis Not Reportable 08/05/21 04:50 Spherocytes Not Reportable 08/05/21 04:50 Pappenheimer Bodies Not Reportable 08/05/21 04:50 Sickle Cells Not Reportable 08/05/21 04:50 Target Cells Not Reportable 08/05/21 04:50 Tear Drop Cells Not Reportable 08/05/21 04:50 Ovalocytes Few 08/05/21 04:50 Helmet Cells Not Reportable 08/05/21 04:50 [place] Bodies Not Reportable 08/05/21 04:50 [place] Rings Not Reportable 08/05/21 04:50 Est[place] Cells Not Reportable 08/05/21 04:50 Bite Cells Not Reportable 08/05/21 04:50 Crenated Cell Not Reportable 08/05/21 04:50 Elliptocytes Not Reportable 08/05/21 04:50 Acanthocytes (Spur) Not Reportable 08/05/21 04:50 Rouleaux Not Reportable 08/05/21 04:50 Hemoglobin C Crystals Not Reportable 08/05/21 04:50 Schistocytes Not Reportable 08/05/21 04:50 Malaria parasites Not Reportable 08/05/21 04:50 Gurmeet Bodies Not Reportable 08/05/21 04:50 Hem Pathologist Commnt No 08/05/21 04:50 PT 14.0 Sec. (12.2-14.9) 08/03/21 08:30 INR 1.03 (0.87-1.13) 08/03/21 08:30 D-Dimer 852.47 ng/mlDDU (0-234) H 07/29/21 07:17 ABG pH 7.368 (7.320-7.450) 08/07/21 04:00 POC ABG pCO2 42.0 mmHg (32.0-48.0) 08/07/21 04:00 POC ABG pO2 80.1 mmHg (83-108) L 08/07/21 04:00 POC ABG HCO3 23.6 08/07/21 04:00 ABG O2 Saturation 95.2 (0-100) 08/07/21 04:00 POC ABG Base Excess -1.6 08/07/21 04:00 ABG Hemoglobin 9.8 (12.0-17.5) L 08/07/21 04:00 ABG Oxyhemoglobin 94.9 (94-98) 08/07/21 04:00 ABG Methemoglobin 0 (0.0-1.5) 08/07/21 04:00 ABG Sodium 142.1 mmol/L (136.0-145.0) 08/07/21 04:00 ABG Potassium 3.9 mmol/L (3.40-4.50) 08/07/21 04:00 ABG Chloride 111.0 mmol/L (98-107) H 08/07/21 04:00 ABG Glucose 157 mg/dL (65-95) H 08/07/21 04:00 Carboxyhemoglobin 0.3 (0.5-1.5) L 08/07/21 04:00 FiO2 % 30.0 08/07/21 04:00 Sodium 147 mmol/L (137-145) H 08/08/21 06:00 Potassium 4.0 mmol/L (3.6-5.0) 08/08/21 06:00 Chloride 112.4 mmol/L (98-107) H 08/08/21 06:00 Carbon Dioxide 27 mmol/L (22-30) 08/08/21 06:00 Anion Gap 12 mmol/L 08/08/21 06:00 BUN 71 mg/dL (7-17) H 08/08/21 06:00 Creatinine 1.4 mg/dL (0.6-1.2) H 08/08/21 06:00 Estimated GFR 46 ml/min 08/08/21 06:00 BUN/Creatinine Ratio 51 % 08/08/21 06:00 Glucose 124 mg/dL (65-100) H 08/08/21 06:00 POC Glucose 127 mg/dL (70-105) H 08/09/21 06:06 Lactic Acid 2.10 mmol/L (0.7-2.0) H* 08/03/21 15:11 Calcium 8.4 mg/dL (8.4-10.2) 08/08/21 06:00 Phosphorus 4.10 mg/dL (2.5-4.5) 08/08/21 06:00 Magnesium 2.20 mg/dL (1.7-2.3) 08/08/21 06:00 Total Bilirubin 0.30 mg/dL (0.1-1.2) 07/27/21 22:57 AST 98 units/L (5-40) H 07/27/21 22:57 ALT 90 units/L (7-56) H 07/27/21 22:57 Alkaline Phosphatase 98 units/L (35-129) 07/27/21 22:57 Total Protein 8.0 g/dL (6.3-8.2) 07/27/21 22:57 Albumin 4.2 g/dL (3.9-5) 07/27/21 22:57 Albumin/Globulin Ratio 1.1 % 07/27/21 22:57 Carcinoembryonic Ag <0.5 ng/mL (0.0-2.4) 07/31/21 04:45 Arterial Blood Glucose 157 mg/dL (65-95) H 08/07/21 04:00 Arterial Blood Ionized Calcium 4.5 mg/dL (4.6-5.3) L 08/07/21 04:00 Urine Color Yellow (Yellow) 08/08/21 20:27 Urine Turbidity Slightly-cloudy (Clear) 08/08/21 20: Urine pH 5.0 (5.0-7.0) 08/08/21 20: Ur Specific [place] 1.014 (1.003-1.030) 08/08/21 20:27 Urine Protein 30 mg/dl mg/dL (Negative) 08/08/21 20: Urine Glucose (UA) Neg mg/dL (Negative) 08/08/21 20:27 Urine Ketones Neg mg/dL (Negative) 08/08/21 20:27 Urine Blood Mod (Negative) 08/08/21 20: Urine Nitrite Neg (Negative) 08/08/21 20: Urine Bilirubin Neg (Negative) 08/08/21 20: Urine Urobilinogen < 2.0 mg/dL (<2.0) 08/08/21 20:27 Ur Leukocyte Esterase Neg (Negative) 08/08/21 20:27 Urine WBC (Auto) 6.0 /HPF (0.0-6.0) 08/08/21 20:27 Urine RBC (Auto) 6.0 /HPF (0.0-6.0) 08/08/21 20:27 U Epithel Cells (Auto) < 1.0 /HPF (0-13.0) 08/08/21 20:27 Urine Bacteria (Auto) 1+ /HPF (Negative) 08/08/21 20:27 Urine Mucus Few /HPF 08/08/21 20:27 Urine Yeast (Budding) 1+ /HPF 08/08/21 20:27 Urine Creatinine 125.6 mg/dL (0.1-20.0) H 08/01/21 Unknown Urine Sodium 12 mmol/L 08/01/21 Unknown Double Strand DNA Ab 1 IU/mL (<=4) 08/02/21 15:40 Coronavirus (PCR) Negative (Negative) 07/29/21 07:58 Hepatitis A IgM Ab Non-reactive (NonReactive) 08/02/21 15:40 Hep Bs Antigen Nonreactive (Negative) 08/02/21 15:40 Hep B Core IgM Ab Non-reactive (NonReactive) 08/02/21 15:40 Hepatitis C Antibody Non-reactive (NonReactive) 08/02/21 15:40 AFB Identification Negative 08/02/21 14:30 Microbiology: Microbiology 08/08/21 16:39 Peripheral/Venous Blood Culture - Preliminary Culture in Progress 08/08/21 16:39 Peripheral/Venous Blood Culture - Preliminary Culture in Progress Elizabeth/IV: Voiding Method Indwelling Catheter Active Medications - Current Medications Current Medications: Generic Name Dose Route Start Last Admin Trade Name Freq PRN Reason Stop Dose Admin Acetaminophen 650 mg 07/28/21 02:11 Acetaminophen 325 Mg Tab PO Q6H PRN Pain MILD(1-3)/Fever >100.5/GARCIA Albuterol/Ipratropium 1 ampul 07/28/21 14:00 08/09/21 08:13 Ipratropium/Albuterol Sulfate 3 Ml Ampul.Neb IH 1 ampul TID DEMIAN Administration Lipase/Protease/Amylase 1 each 07/29/21 13:01 Lipase 10,500/Protease 25,000/Amylase 43,750 (Units) Dr Campoverde FEEDTUBE PRN PRN For Clogged Feeding Tube Arformoterol Tartrate 15 mcg 07/28/21 20:00 08/09/21 08:13 Arformoterol 15 Mcg/2 Ml Nebu IH 15 mcg Q12HRT DEMIAN Administration Bisacodyl 10 mg 08/07/21 09:50 Bisacodyl 10 Mg Rect Supp [place] QDAY PRN Constip unreliev by MOM/or NPO Budesonide 0.5 mg 07/28/21 20:00 08/09/21 08:13 Budesonide 0.5 Mg/2 Ml Nebu IH 0.5 mg Q12HRT DEMIAN Administration Dextrose 50 ml 07/28/21 02:11 Dextrose 50% In Water (25gm) 50 Ml Syringe IV Q30MIN PRN Hypoglycemia Protocol Famotidine 10 mg 08/02/21 10:00 08/08/21 22:15 Famotidine 20 Mg/2 Ml Inj IV 10 mg BID DEMIAN Administration Fentanyl 50 mcg 07/29/21 10:42 08/04/21 09:05 Fentanyl 100 Mcg/2 Ml Inj IV 50 mcg Q10MIN PRN Administration ANALGESIA Hydralazine HCl 10 mg 07/30/21 14:52 08/03/21 17:31 Hydralazine 20 Mg/1 Ml Inj IV 10 mg Q6H PRN Administration SBP > 165 Hydrophilic Ointment 1 applic 07/29/21 10:42 Lip Therapy Vaseline TP Q2HR PRN Dry Lips Fentanyl Citrate 2,000 mcg in 100 mls @ 5.35 mls/hr 07/29/21 11:00 08/09/21 01:12 Fentanyl Drip Premix IV 3 mcg/kg/hr TITR DEMIAN 16.05 mls/hr Administration Protocol 1 MCG/KG/HR Midazolam HCl 100 mg/ Sodium 100 mls @ 2 mls/hr 07/29/21 11:00 08/08/21 04:55 Chloride IV 2 mg/hr TITR DEMIAN 2 mls/hr Administration Protocol 2 MG/HR Norepinephrine 4 mg in 250 mls @ 7.5 mls/hr 07/29/21 21:00 Levophed Drip 4 Mg/Ns 250 Ml IV TITR DEMIAN Protocol 2 MCG/MIN Insulin Glargine 30 units 08/05/21 22:00 08/08/21 22:18 Insulin Glargine 100 Units/Ml SUB-Q 30 units QHS DEMIAN Administration Insulin Human Lispro 0 unit 07/29/21 12:00 09/14/21 06:21 Insulin Lispro 100 Unit/Ml SUB-Q Not Given Q6HR [facility] Protocol Magnesium Hydroxide 30 ml 07/28/21 02:11 Magnesium Hydroxide (Mom) Oral Liqd Udc PO Q4H PRN Constipation Midazolam HCl 2 mg 07/29/21 10:42 08/07/21 10:10 Midazolam 2 Mg/2 Ml Inj IV 2 mg Q10MIN PRN Administration Sedation Multi-Ingred Cream/Lotion/Oil/Oint 1 applic 07/29/21 10:42 Mineral Oil/Petrolatum, White Ophth Oint 3.5 Gm OU Q4HR PRN Dry Eye(s) Quetiapine Fumarate 200 mg 08/05/21 22:00 08/08/21 22:15 Quetiapine 200 Mg Tab PO 200 mg BID DEMIAN Administration Senna/Docusate Sodium 1 tab 07/29/21 22:00 08/08/21 22:15 Sennosides/Docusate Sodium 8.6/50 Mg Tab FEEDTUBE 1 tab BID DEMIAN Administration Simple Syrup 15 ml 07/29/21 13:01 Simple Syrup 15 Ml FEEDTUBE PRN PRN Hypoglycemia Simple Syrup 30 ml 07/29/21 13:01 Simple Syrup 15 Ml FEEDTUBE PRN PRN Hypoglycemia Sodium Bicarbonate 325 mg 07/29/21 13:01 Sodium Bicarbonate 325 Mg Tab FEEDTUBE PRN PRN For Clogged Feeding Tube Sodium Chloride 10 ml 07/28/21 10:00 08/08/21 22:16 Sodium Chloride 0.9% 10 Ml Flush Syringe IV 10 ml BID DEMIAN Administration Sodium Chloride 10 ml 07/28/21 02:05 Sodium Chloride 0.9% 10 Ml Flush Syringe IV PRN PRN LINE FLUSH Nutrition/Malnutrition Assess - Dietary Evaluation Nutrition/Malnutrition Findings: Nutrition Notes Start: 07/28/21 14:44 Freq: Status: Active Protocol: Document 08/08/21 10:20 JACKIE (Rec: 08/08/21 10:27 JACKIE [id number]) Nutrition Notes Initial or Follow up Reassessment Current Diagnosis COPD,Diabetes,Hypertension, Respiratory Failure Other Pertinent Diagnosis pneu Current Diet Vital AF at 50 ml/hr Labs/Tests Na 147 BUN 71 Cr 1.4 Pertinent Medications Senokot Height 5 ft Weight 107 kg Flasher Body Weight (kg) 45.45 BMI 46.0 Weight Status Morbidly Obese Subjective/Other Information Per chart, pt got rectal suppository yesterday. No BM yet documented. Pt tolerating TF at goal rate. Percent of energy/protein needs met: 96%/67% Burn Absent Trauma Absent GI Symptoms Constipation,Last BM Current % PO Negligible Minimum of two criteria No #1 Nutrition Diagnosis Inadequate oral intake Diagnosis Progress(for reassessment Continues documentation) Is patient on ventilator? Yes Is Patient Ambulatory and/or Out of Bed No REE-([place]-confined to bed) 1842.852 Kcal/Kg value to use for calculation 14 Approximate Energy Requirements Using 1498 kcal/Kg Calculation Used for Recommendations Kcal/kg Additional Notes Protein: (up to 2.5g/kg IBW) up to 134g Fluid: 1 ml/kcal or per MD Nutrition Intervention Change Diet Order: continue Nutrition Support: Vital AF 1.2 at 50 ml/hr For hypernatermia, flush 250 ml ml q4h or per MD. Once resolved, flush 100 ml q4h. Kcal 1,440 Protein (gm) 90 Fluid (mL) 973 Goal #1 Meet at least 75% of protein and energy needs via TF Anticipated Discharge Needs: Unable to determine at this time Follow-Up By: 08/11/21 Additional Comments F/u: stable TF, BM
--- NOTE | 2021-08-08 12:37 | XRay Report ---
CHEST 1 VIEW 08/06/2021 5:57 AM INDICATION / CLINICAL INFORMATION: hypoxia. COMPARISON: 08/06/2021 FINDINGS: SUPPORT DEVICES: ET tube, left PICC line and NG tube again project in expected position HEART / MEDIASTINUM: Prominent right hilar region, unchanged. LUNGS / PLEURA: Linear scar/atelectasis right upper lobe, unchanged. No pneumothorax. ADDITIONAL FINDINGS: Right breast charter pilot and right axillary celestino dissection clips, unchanged IMPRESSION: 1. Stable right upper lobe parenchymal density and prominent right hilum, unchanged Signer Name: Rikki Perales MD Signed: 08/08/2021 12:33 PM Workstation Name: [id number]
--- NOTE | 2021-08-08 14:35 | Progress Note ---
Assessment and Plan Acute hypoxemic respiratory failure secondary Lung Mass -metastatic breast disease Acute COPD exacerbation Possible hypercapnia History of right breast cancer Leukocytosis DM II Hypertension Hyperlipidemia Tobacco use disorder Hypernatremia Continue with water flushes and hypotonic solutions to treat hypernatremia The airway obstruction precludes liberation from MVS, discussed extensively with the daughter. Trach and PEG placement- discussed with General surgery Daily SAT,SBT as tolerated - continue daily SAT and SBT assessment as tolerated - continue to titrate supplemental oxygen to keep SpO2 88-90% - VAP bundle addressed, aspiration precautions HOB >30 - continue lung protective strategies - continue bronchodilators (GLADIS & LABA) with pulmonary hygiene per RT - wean per pulmonary driven protocols otherwise - continue accuchecks with glycemic control per SSI (While critically ill target blood glucose of 140-180 mg/dL; avoid hypoglycemia) - sedation prn for target RASS -1 to -2 - avoid nephrotoxins, renally dose all medications - continue to avoid benzodiazepines, reduce the possibility of delirium May need to change Midazolam infusion to Propofol - complete antibiotics per ID recommendations. De-escalate based on culture data and clinical response - prn analgesia per CPOT score - Maintenance of sleep-wake cycle, avoid delirium - enteric nutritional support at goal rate as tolerated - G.I. & VTE prophylaxis - PT/OT/ROM exercises - continue mobility protocols for pressure ulcer prophylaxis - Monitor hemodynamics closely - continue other care per attending / other consultants COVID SPECIFIC INTERVENTIONS -Negative CONDITION: CRITICAL PROGNOSIS: GUARDED CODE STATUS: FULL CODE The high probability of a clinically significant, sudden or life-threatening deterioration of the [respiratory, cardiovascular, oncological & neurologic] system(s) required my full and direct attention, intervention and personal management. The aggregate critical care time was [35] minutes without overlap. Time includes spent on; [x] Data Review and interpretation [x] Patient assessment and monitoring of vital signs [x] Documentation [x] Medication orders and management Subjective Date of service: 08/08/21 Principal diagnosis: Ac hypoxemic resp failure ; AE-COPD; H/O CA Breast; DM II; HTN Interval history: Patient is seen today for: Acute hypoxemic respiratory failure; AE-COPD; Possible hypercapnia; H/O CA Breast; DM II; HTN Seen and examined at bedside; 24hour events reviewed; nursing and respiratory care staff consulted; no adverse overnight events reported to me; resting in bed; remains on MVS; No SBTs today secondary to agitation. Remains on Fentanyl infusion and Midazolam. Discussed with general surgery- she will have talks with the family re goals of care and Trach/PEG placement Objective Vital Signs - 12hr 08/08/21 08/08/21 08/08/21 02:46 03:00 03:16 Temperature Pulse Rate 92 H 94 H 92 H Pulse Rate [ Anterior Bilateral] Pulse Rate [ From Monitor] Respiratory 15 15 16 Rate Respiratory Rate [Anterior Bilateral] Blood Pressure 110/61 110/61 112/63 O2 Sat by Pulse 98 98 98 Oximetry 08/08/21 08/08/21 08/08/21 03:30 03:46 03:56 Temperature 98.4 F Pulse Rate 91 H 91 H Pulse Rate [ Anterior Bilateral] Pulse Rate [ From Monitor] Respiratory 16 16 Rate Respiratory Rate [Anterior Bilateral] Blood Pressure 112/63 112/59 O2 Sat by Pulse 98 98 Oximetry 08/08/21 08/08/21 08/08/21 04:00 04:13 04:16 Temperature Pulse Rate 90 90 85 Pulse Rate [ Anterior Bilateral] Pulse Rate [ From Monitor] Respiratory 16 17 Rate Respiratory Rate [Anterior Bilateral] Blood Pressure 112/59 115/61 115/61 O2 Sat by Pulse 98 98 99 Oximetry 08/08/21 08/08/21 08/08/21 04:30 04:46 05:00 Temperature Pulse Rate 121 H 114 H 111 H Pulse Rate [ Anterior Bilateral] Pulse Rate [ From Monitor] Respiratory 14 16 16 Rate Respiratory Rate [Anterior Bilateral] Blood Pressure 115/61 171/127 171/127 O2 Sat by Pulse 99 97 98 Oximetry 08/08/21 08/08/21 08/08/21 05:16 05:30 05:46 Temperature Pulse Rate 106 H 106 H 103 H Pulse Rate [ Anterior Bilateral] Pulse Rate [ From Monitor] Respiratory 16 16 16 Rate Respiratory Rate [Anterior Bilateral] Blood Pressure 139/73 171/127 120/64 O2 Sat by Pulse 98 98 98 Oximetry 08/08/21 08/08/21 08/08/21 06:00 06:16 06:30 Temperature Pulse Rate 101 H 100 H 101 H Pulse Rate [ Anterior Bilateral] Pulse Rate [ From Monitor] Respiratory 16 16 15 Rate Respiratory Rate [Anterior Bilateral] Blood Pressure 120/64 107/65 107/65 O2 Sat by Pulse 98 98 99 Oximetry 08/08/21 08/08/2121 06:46 07:00 07:16 Temperature Pulse Rate 103 H 106 H 105 H Pulse Rate [ Anterior Bilateral] Pulse Rate [ From Monitor] Respiratory 16 13 16 Rate Respiratory Rate [Anterior Bilateral] Blood Pressure 117/69 117/69 187/78 O2 Sat by Pulse 99 100 99 Oximetry 08/08/21 08/08/21 08/08/21 07:30 07:46 08:00 Temperature 99.7 F H Pulse Rate 105 H 103 H 104 H Pulse Rate [ 107 H Anterior Bilateral] Pulse Rate [ From Monitor] Respiratory 15 16 16 Rate Respiratory 16 Rate [Anterior Bilateral] Blood Pressure 117/69 120/63 134/74 O2 Sat by Pulse 99 99 99 Oximetry 08/08/21 08/08/21 08/08/21 08:11 08:16 08:30 Temperature Pulse Rate 102 H 102 H Pulse Rate [ Anterior Bilateral] Pulse Rate [ 102 H From Monitor] Respiratory 16 16 16 Rate Respiratory Rate [Anterior Bilateral] Blood Pressure 121/67 121/67 O2 Sat by Pulse 99 99 99 Oximetry 08/08/21 08/08/21 08/08/21 08:46 09:00 09:16 Temperature Pulse Rate 100 H 101 H 102 H Pulse Rate [ Anterior Bilateral] Pulse Rate [ From Monitor] Respiratory 16 24 15 Rate Respiratory Rate [Anterior Bilateral] Blood Pressure 117/68 117/68 134/74 O2 Sat by Pulse 100 99 100 Oximetry 08/08/21 08/08/21 08/08/21 09:30 09:46 10:00 Temperature Pulse Rate 101 H 105 H 102 H Pulse Rate [ Anterior Bilateral] Pulse Rate [ From Monitor] Respiratory 20 15 17 Rate Respiratory Rate [Anterior Bilateral] Blood Pressure 134/74 145/76 145/76 O2 Sat by Pulse 99 99 99 Oximetry 08/08/21 08/08/21 08/08/21 10:16 10:30 10:46 Temperature Pulse Rate 103 H 101 H 99 H Pulse Rate [ Anterior Bilateral] Pulse Rate [ From Monitor] Respiratory 14 19 21 Rate Respiratory Rate [Anterior Bilateral] Blood Pressure 119/61 119/61 107/68 O2 Sat by Pulse 99 98 95 Oximetry 08/08/21 08/08/21 08/08/21 11:00 11:16 11:30 Temperature Pulse Rate 101 H 103 H 103 H Pulse Rate [ Anterior Bilateral] Pulse Rate [ From Monitor] Respiratory 18 17 21 Rate Respiratory Rate [Anterior Bilateral] Blood Pressure 107/68 110/62 110/62 O2 Sat by Pulse 95 95 95 Oximetry 08/08/21 08/08/21 08/08/21 11:31 11:46 12:00 Temperature 100.8 F H Pulse Rate 103 H 103 H 104 H Pulse Rate [ Anterior Bilateral] Pulse Rate [ From Monitor] Respiratory 21 20 Rate Respiratory Rate [Anterior Bilateral] Blood Pressure 99/63 99/63 98/65 O2 Sat by Pulse 96 96 98 Oximetry 08/08/21 08/08/21 08/08/21 12:16 12:30 12:46 Temperature Pulse Rate 106 H 101 H 91 H Pulse Rate [ Anterior Bilateral] Pulse Rate [ From Monitor] Respiratory 18 12 17 Rate Respiratory Rate [Anterior Bilateral] Blood Pressure 98/65 115/70 115/70 O2 Sat by Pulse 98 97 95 Oximetry 08/08/21 13:00 Temperature Pulse Rate 115 H Pulse Rate [ Anterior Bilateral] Pulse Rate [ From Monitor] Respiratory 17 Rate Respiratory Rate [Anterior Bilateral] Blood Pressure 115/70 O2 Sat by Pulse 94 Oximetry Constitutional: no acute distress, other (eldely obese female with mildy increased respiratory effort at rest on MVS) Eyes: non-icteric ENT: oropharynx moist, other (ETT 24 cm [place]) Neck: supple, no lymphadenopathy, no JVD Effort: mildly labored Ascultation: Bilateral: diminished breath sounds, wheezes (central), rales, rhonchi, other (prolonged expiratory phase) Percussion: Bilateral: not dull Cardiovascular: regular rate and rhythm, other (S1,S2) Gastrointestinal: normoactive bowel sounds, soft, non-tender, non-distended Integumentary: normal Extremities: no cyanosis, no edema, pulses normal, no ischemia or petechiae Neurologic: normal mental status, non-focal exam, pupils equal and round Psychiatric: other (Sedated) CBC and BMP: 08/09/21 10:00 08/09/21 10:00 ABG, PT/INR, D-dimer: ABG ABG pH 7.368 (7.320-7.450) 08/07/21 04:00 POC ABG pCO2 42.0 mmHg (32.0-48.0) 08/07/21 04:00 POC ABG pO2 80.1 mmHg (83-108) L 08/07/21 04:00 POC ABG HCO3 23.6 08/07/21 04:00 ABG O2 Saturation 95.2 (0-100) 08/07/21 04:00 PT/INR, D-dimer PT 14.0 Sec. (12.2-14.9) 08/03/21 08:30 INR 1.03 (0.87-1.13) 08/03/21 08:30 D-Dimer 852.47 ng/mlDDU (0-234) H 07/29/21 07:17 Abnormal lab findings: Abnormal Labs 07/27/21 07/27/21 07/27/21 22:57 22:57 22:57 WBC 20.3 H RBC Hgb Hct RDW Lymph % (Auto) Lymph # (Auto) [place] # (Auto) Seg Neutrophils % Seg Neuts % (Manual) 89.0 H Lymphocytes % (Manual) 9.0 L Nucleated RBC % Seg Neutrophils # Seg Neutrophils # Man 18.1 H Lymphocytes # (Manual) Monocytes # (Manual) D-Dimer ABG pH POC ABG pCO2 POC ABG pO2 ABG Hemoglobin ABG Oxyhemoglobin ABG Sodium ABG Potassium ABG Chloride ABG Glucose Carboxyhemoglobin Sodium Potassium 3.5 L Chloride 96.9 L Carbon Dioxide 20 L BUN 19 H Creatinine Glucose 204 H POC Glucose Lactic Acid 7.20 H* Calcium Magnesium AST 98 H ALT 90 H Arterial Blood Glucose Arterial Blood Ionized Calcium Urine WBC (Auto) Urine Creatinine 07/28/21 07/28/21 07/28/21 01:31 07:49 10:00 WBC RBC Hgb Hct RDW Lymph % (Auto) Lymph # (Auto) [place] # (Auto) Seg Neutrophils % Seg Neuts % (Manual) Lymphocytes % (Manual) Nucleated RBC % Seg Neutrophils # Seg Neutrophils # Man Lymphocytes # (Manual) Monocytes # (Manual) D-Dimer ABG pH POC ABG pCO2 POC ABG pO2 ABG Hemoglobin ABG Oxyhemoglobin ABG Sodium ABG Potassium ABG Chloride ABG Glucose Carboxyhemoglobin Sodium Potassium Chloride Carbon Dioxide BUN Creatinine Glucose POC Glucose 194 H Lactic Acid 6.90 H* 6.70 H* Calcium Magnesium AST ALT Arterial Blood Glucose Arterial Blood Ionized Calcium Urine WBC (Auto) Urine Creatinine 07/28/21 07/28/21 07/28/21 12:41 13:21 16:21 WBC RBC Hgb Hct RDW Lymph % (Auto) Lymph # (Auto) [place] # (Auto) Seg Neutrophils % Seg Neuts % (Manual) Lymphocytes % (Manual) Nucleated RBC % Seg Neutrophils # Seg Neutrophils # Man Lymphocytes # (Manual) Monocytes # (Manual) D-Dimer ABG pH POC ABG pCO2 POC ABG pO2 ABG Hemoglobin ABG Oxyhemoglobin ABG Sodium ABG Potassium ABG Chloride ABG Glucose Carboxyhemoglobin Sodium Potassium Chloride Carbon Dioxide BUN Creatinine Glucose POC Glucose 159 H 155 H Lactic Acid 6.10 H* Calcium Magnesium AST ALT Arterial Blood Glucose Arterial Blood Ionized Calcium Urine WBC (Auto) Urine Creatinine 07/28/21 07/29/21 07/29/21 22:03 04:44 04:44 WBC 17.0 H RBC Hgb Hct RDW Lymph % (Auto) Lymph # (Auto) [place] # (Auto) Seg Neutrophils % Seg Neuts % (Manual) 82.0 H Lymphocytes % (Manual) 11.0 L Nucleated RBC % Seg Neutrophils # Seg Neutrophils # Man 13.9 H Lymphocytes # (Manual) Monocytes # (Manual) 1.0 H D-Dimer ABG pH POC ABG pCO2 POC ABG pO2 ABG Hemoglobin ABG Oxyhemoglobin ABG Sodium ABG Potassium ABG Chloride ABG Glucose Carboxyhemoglobin Sodium Potassium Chloride Carbon Dioxide BUN 23 H Creatinine Glucose 196 H POC Glucose 187 H Lactic Acid Calcium Magnesium AST ALT Arterial Blood Glucose Arterial Blood Ionized Calcium Urine WBC (Auto) Urine Creatinine 07/29/21 07/29/21 07/29/21 06:56 07:17 07:17 WBC 26.1 H RBC Hgb Hct 43.3 H RDW 16.0 H Lymph % (Auto) Lymph # (Auto) [place] # (Auto) Seg Neutrophils % Seg Neuts % (Manual) 80.0 H Lymphocytes % (Manual) Nucleated RBC % Seg Neutrophils # Seg Neutrophils # Man 20.9 H Lymphocytes # (Manual) Monocytes # (Manual) D-Dimer ABG pH POC ABG pCO2 POC ABG pO2 ABG Hemoglobin ABG Oxyhemoglobin ABG Sodium ABG Potassium ABG Chloride ABG Glucose Carboxyhemoglobin Sodium Potassium Chloride Carbon Dioxide 20 L D BUN 23 H Creatinine Glucose 308 H POC Glucose 165 H Lactic Acid Calcium Magnesium AST ALT Arterial Blood Glucose Arterial Blood Ionized Calcium Urine WBC (Auto) Urine Creatinine 09/03/21 09/03/21 09/03/21 07:17 09:16 10:30 WBC RBC Hgb Hct RDW Lymph % (Auto) Lymph # (Auto) [place] # (Auto) Seg Neutrophils % Seg Neuts % (Manual) Lymphocytes % (Manual) Nucleated RBC % Seg Neutrophils # Seg Neutrophils # Man Lymphocytes # (Manual) Monocytes # (Manual) D-Dimer 852.47 H ABG pH 7.236 L POC ABG pCO2 56.0 H POC ABG pO2 266.4 H ABG Hemoglobin ABG Oxyhemoglobin 99.1 H ABG Sodium 132.3 L ABG Potassium 4.9 H ABG Chloride ABG Glucose 202 H Carboxyhemoglobin 0.2 L Sodium Potassium Chloride Carbon Dioxide BUN Creatinine Glucose POC Glucose 271 H Lactic Acid Calcium Magnesium AST ALT Arterial Blood Glucose 202 H Arterial Blood Ionized Calcium Urine WBC (Auto) Urine Creatinine 07/29/21 07/29/21 07/30/21 17:54 23:32 05:08 WBC RBC Hgb Hct RDW Lymph % (Auto) Lymph # (Auto) [place] # (Auto) Seg Neutrophils % Seg Neuts % (Manual) Lymphocytes % (Manual) Nucleated RBC % Seg Neutrophils # Seg Neutrophils # Man Lymphocytes # (Manual) Monocytes # (Manual) D-Dimer ABG pH POC ABG pCO2 POC ABG pO2 ABG Hemoglobin ABG Oxyhemoglobin ABG Sodium ABG Potassium ABG Chloride ABG Glucose Carboxyhemoglobin Sodium Potassium Chloride Carbon Dioxide BUN Creatinine Glucose POC Glucose 168 H 205 H 214 H Lactic Acid Calcium Magnesium AST ALT Arterial Blood Glucose Arterial Blood Ionized Calcium Urine WBC (Auto) Urine Creatinine 07/30/21 07/30/21 07/30/21 06:01 11:32 17:34 WBC RBC Hgb Hct RDW Lymph % (Auto) Lymph # (Auto) [place] # (Auto) Seg Neutrophils % Seg Neuts % (Manual) Lymphocytes % (Manual) Nucleated RBC % Seg Neutrophils # Seg Neutrophils # Man Lymphocytes # (Manual) Monocytes # (Manual) D-Dimer ABG pH 7.480 H POC ABG pCO2 23.6 L POC ABG pO2 280.0 H ABG Hemoglobin ABG Oxyhemoglobin 99.3 H ABG Sodium 133.7 L ABG Potassium ABG Chloride ABG Glucose 232 H Carboxyhemoglobin 0 L Sodium Potassium Chloride Carbon Dioxide BUN Creatinine Glucose POC Glucose 207 H 239 H Lactic Acid Calcium Magnesium AST ALT Arterial Blood Glucose 232 H Arterial Blood Ionized Calcium 4.4 L Urine WBC (Auto) Urine Creatinine 07/30/21 07/31/21 07/31/21 23:39 03:34 04:45 WBC 15.0 H RBC Hgb Hct RDW 15.5 H Lymph % (Auto) Lymph # (Auto) [place] # (Auto) Seg Neutrophils % Seg Neuts % (Manual) 89.0 H Lymphocytes % (Manual) 7.0 L Nucleated RBC % Seg Neutrophils # Seg Neutrophils # Man 13.4 H Lymphocytes # (Manual) 1.1 L Monocytes # (Manual) D-Dimer ABG pH 7.481 H POC ABG pCO2 31.8 L POC ABG pO2 ABG Hemoglobin ABG Oxyhemoglobin ABG Sodium 135.2 L ABG Potassium 3.3 L ABG Chloride ABG Glucose 188 H Carboxyhemoglobin 0.1 L Sodium Potassium Chloride Carbon Dioxide BUN Creatinine Glucose POC Glucose 176 H Lactic Acid Calcium Magnesium AST ALT Arterial Blood Glucose 188 H Arterial Blood Ionized Calcium 4.4 L Urine WBC (Auto) Urine Creatinine 07/31/21 07/31/21 07/31/21 04:45 04:45 11:28 WBC RBC Hgb Hct RDW Lymph % (Auto) Lymph # (Auto) [place] # (Auto) Seg Neutrophils % Seg Neuts % (Manual) Lymphocytes % (Manual) Nucleated RBC % Seg Neutrophils # Seg Neutrophils # Man Lymphocytes # (Manual) Monocytes # (Manual) D-Dimer ABG pH POC ABG pCO2 POC ABG pO2 ABG Hemoglobin ABG Oxyhemoglobin ABG Sodium ABG Potassium ABG Chloride ABG Glucose Carboxyhemoglobin Sodium Potassium 3.4 L Chloride Carbon Dioxide BUN 61 H Creatinine 2.6 H D Glucose 176 H POC Glucose 195 H 245 H Lactic Acid Calcium Magnesium AST ALT Arterial Blood Glucose Arterial Blood Ionized Calcium Urine WBC (Auto) Urine Creatinine 07/31/21 07/31/21 08/01/21 17:32 23:58 01:00 WBC RBC Hgb Hct RDW Lymph % (Auto) Lymph # (Auto) [place] # (Auto) Seg Neutrophils % Seg Neuts % (Manual) Lymphocytes % (Manual) Nucleated RBC % Seg Neutrophils # Seg Neutrophils # Man Lymphocytes # (Manual) Monocytes # (Manual) D-Dimer ABG pH POC ABG pCO2 POC ABG pO2 ABG Hemoglobin ABG Oxyhemoglobin ABG Sodium ABG Potassium ABG Chloride ABG Glucose 284 H Carboxyhemoglobin 0.3 L Sodium Potassium Chloride Carbon Dioxide BUN Creatinine Glucose POC Glucose 251 H 294 H Lactic Acid Calcium Magnesium AST ALT Arterial Blood Glucose 284 H Arterial Blood Ionized Calcium Urine WBC (Auto) Urine Creatinine 08/01/21 08/01/21 08/01/21 05:50 05:50 06:11 WBC 16.2 H RBC Hgb Hct RDW 15.5 H Lymph % (Auto) Lymph # (Auto) [place] # (Auto) Seg Neutrophils % Seg Neuts % (Manual) 93.0 H Lymphocytes % (Manual) 2.0 L Nucleated RBC % 3.0 H Seg Neutrophils # Seg Neutrophils # Man 15.1 H Lymphocytes # (Manual) 0.3 L Monocytes # (Manual) D-Dimer ABG pH POC ABG pCO2 POC ABG pO2 ABG Hemoglobin ABG Oxyhemoglobin ABG Sodium ABG Potassium ABG Chloride ABG Glucose Carboxyhemoglobin Sodium Potassium Chloride Carbon Dioxide BUN 64 H Creatinine 1.9 H Glucose 277 H POC Glucose 256 H Lactic Acid Calcium Magnesium AST ALT Arterial Blood Glucose Arterial Blood Ionized Calcium Urine WBC (Auto) Urine Creatinine 08/01/21 08/01/21 08/01/21 11:39 17:25 23:53 WBC RBC Hgb Hct RDW Lymph % (Auto) Lymph # (Auto) [place] # (Auto) Seg Neutrophils % Seg Neuts % (Manual) Lymphocytes % (Manual) Nucleated RBC % Seg Neutrophils # Seg Neutrophils # Man Lymphocytes # (Manual) Monocytes # (Manual) D-Dimer ABG pH POC ABG pCO2 POC ABG pO2 ABG Hemoglobin ABG Oxyhemoglobin ABG Sodium ABG Potassium ABG Chloride ABG Glucose Carboxyhemoglobin Sodium Potassium Chloride Carbon Dioxide BUN Creatinine Glucose POC Glucose 289 H 275 H 327 H Lactic Acid Calcium Magnesium AST ALT Arterial Blood Glucose Arterial Blood Ionized Calcium Urine WBC (Auto) Urine Creatinine 08/01/21 08/02/21 08/02/21 Unknown 04:00 12:03 WBC RBC Hgb Hct RDW Lymph % (Auto) Lymph # (Auto) [place] # (Auto) Seg Neutrophils % Seg Neuts % (Manual) Lymphocytes % (Manual) Nucleated RBC % Seg Neutrophils # Seg Neutrophils # Man Lymphocytes # (Manual) Monocytes # (Manual) D-Dimer ABG pH POC ABG pCO2 POC ABG pO2 ABG Hemoglobin ABG Oxyhemoglobin ABG Sodium ABG Potassium ABG Chloride ABG Glucose 325 H Carboxyhemoglobin 0.4 L Sodium Potassium Chloride Carbon Dioxide BUN Creatinine Glucose POC Glucose 209 H Lactic Acid Calcium Magnesium AST ALT Arterial Blood Glucose 325 H Arterial Blood Ionized Calcium Urine WBC (Auto) Urine Creatinine 125.6 H 08/02/21 08/02/21 08/02/21 15:30 17:03 23:17 WBC RBC Hgb Hct RDW Lymph % (Auto) Lymph # (Auto) [place] # (Auto) Seg Neutrophils % Seg Neuts % (Manual) Lymphocytes % (Manual) Nucleated RBC % Seg Neutrophils # Seg Neutrophils # Man Lymphocytes # (Manual) Monocytes # (Manual) D-Dimer ABG pH POC ABG pCO2 POC ABG pO2 ABG Hemoglobin ABG Oxyhemoglobin ABG Sodium ABG Potassium ABG Chloride ABG Glucose Carboxyhemoglobin Sodium Potassium Chloride Carbon Dioxide BUN Creatinine Glucose POC Glucose 210 H 265 H Lactic Acid Calcium Magnesium AST ALT Arterial Blood Glucose Arterial Blood Ionized Calcium Urine WBC (Auto) 47.0 H Urine Creatinine 08/02/21 08/02/21 08/03/21 Unknown Unknown 04:17 WBC 14.1 H RBC Hgb Hct RDW 16.3 H Lymph % (Auto) 5.1 L Lymph # (Auto) 0.7 L [place] # (Auto) 0.9 H Seg Neutrophils % 88.7 H Seg Neuts % (Manual) Lymphocytes % (Manual) Nucleated RBC % Seg Neutrophils # 12.5 H Seg Neutrophils # Man Lymphocytes # (Manual) Monocytes # (Manual) D-Dimer ABG pH POC ABG pCO2 POC ABG pO2 ABG Hemoglobin ABG Oxyhemoglobin ABG Sodium ABG Potassium ABG Chloride ABG Glucose Carboxyhemoglobin Sodium Potassium Chloride Carbon Dioxide BUN 72 H 72 H Creatinine 1.8 H 1.6 H Glucose 307 H 263 H POC Glucose Lactic Acid Calcium Magnesium AST ALT Arterial Blood Glucose Arterial Blood Ionized Calcium Urine WBC (Auto) Urine Creatinine 08/03/21 08/03/21 08/03/21 04:17 05:30 08:30 WBC 13.9 H RBC Hgb Hct RDW 16.0 H Lymph % (Auto) Lymph # (Auto) [place] # (Auto) Seg Neutrophils % Seg Neuts % (Manual) Lymphocytes % (Manual) Nucleated RBC % Seg Neutrophils # Seg Neutrophils # Man Lymphocytes # (Manual) Monocytes # (Manual) D-Dimer ABG pH POC ABG pCO2 POC ABG pO2 ABG Hemoglobin ABG Oxyhemoglobin ABG Sodium ABG Potassium ABG Chloride ABG Glucose Carboxyhemoglobin Sodium Potassium Chloride Carbon Dioxide BUN Creatinine Glucose POC Glucose 280 H Lactic Acid Calcium Magnesium 3.00 H AST ALT Arterial Blood Glucose Arterial Blood Ionized Calcium Urine WBC (Auto) Urine Creatinine 08/03/21 08/03/21 08/03/21 12:14 13:39 15:11 WBC RBC Hgb Hct RDW Lymph % (Auto) Lymph # (Auto) [place] # (Auto) Seg Neutrophils % Seg Neuts % (Manual) Lymphocytes % (Manual) Nucleated RBC % Seg Neutrophils # Seg Neutrophils # Man Lymphocytes # (Manual) Monocytes # (Manual) D-Dimer ABG pH POC ABG pCO2 POC ABG pO2 ABG Hemoglobin ABG Oxyhemoglobin ABG Sodium ABG Potassium ABG Chloride ABG Glucose 306 H Carboxyhemoglobin 0.3 L Sodium Potassium Chloride Carbon Dioxide BUN Creatinine Glucose POC Glucose 287 H Lactic Acid 2.10 H* Calcium Magnesium AST ALT Arterial Blood Glucose 306 H Arterial Blood Ionized Calcium Urine WBC (Auto) Urine Creatinine 08/03/21 08/03/21 08/04/21 16:52 23:08 04:00 WBC RBC Hgb Hct RDW Lymph % (Auto) Lymph # (Auto) [place] # (Auto) Seg Neutrophils % Seg Neuts % (Manual) Lymphocytes % (Manual) Nucleated RBC % Seg Neutrophils # Seg Neutrophils # Man Lymphocytes # (Manual) Monocytes # (Manual) D-Dimer ABG pH POC ABG pCO2 54.3 H POC ABG pO2 82.2 L ABG Hemoglobin ABG Oxyhemoglobin ABG Sodium 145.1 H ABG Potassium 5.0 H ABG Chloride ABG Glucose 316 H Carboxyhemoglobin 0.3 L Sodium Potassium Chloride Carbon Dioxide BUN Creatinine Glucose POC Glucose 282 H 289 H Lactic Acid Calcium Magnesium AST ALT Arterial Blood Glucose 316 H Arterial Blood Ionized Calcium Urine WBC (Auto) Urine Creatinine 08/04/21 08/04/21 08/04/21 04:38 04:38 05:19 WBC 17.7 H RBC Hgb Hct RDW 16.5 H Lymph % (Auto) Lymph # (Auto) [place] # (Auto) Seg Neutrophils % Seg Neuts % (Manual) Lymphocytes % (Manual) Nucleated RBC % Seg Neutrophils # Seg Neutrophils # Man Lymphocytes # (Manual) Monocytes # (Manual) D-Dimer ABG pH POC ABG pCO2 POC ABG pO2 ABG Hemoglobin ABG Oxyhemoglobin ABG Sodium ABG Potassium ABG Chloride ABG Glucose Carboxyhemoglobin Sodium Potassium Chloride 108.3 H Carbon Dioxide BUN 76 H Creatinine 1.4 H Glucose 310 H POC Glucose 268 H Lactic Acid Calcium Magnesium 2.70 H AST ALT Arterial Blood Glucose Arterial Blood Ionized Calcium Urine WBC (Auto) Urine Creatinine 08/04/21 08/04/21 08/04/21 11:48 16:41 23:49 WBC RBC Hgb Hct RDW Lymph % (Auto) Lymph # (Auto) [place] # (Auto) Seg Neutrophils % Seg Neuts % (Manual) Lymphocytes % (Manual) Nucleated RBC % Seg Neutrophils # Seg Neutrophils # Man Lymphocytes # (Manual) Monocytes # (Manual) D-Dimer ABG pH POC ABG pCO2 POC ABG pO2 ABG Hemoglobin ABG Oxyhemoglobin ABG Sodium ABG Potassium ABG Chloride ABG Glucose Carboxyhemoglobin Sodium Potassium Chloride Carbon Dioxide BUN Creatinine Glucose POC Glucose 197 H 208 H 209 H Lactic Acid Calcium Magnesium AST ALT Arterial Blood Glucose Arterial Blood Ionized Calcium Urine WBC (Auto) Urine Creatinine 08/05/21 08/05/21 08/05/21 04:00 04:50 04:50 WBC 19.0 H RBC Hgb Hct RDW 17.0 H Lymph % (Auto) Lymph # (Auto) [place] # (Auto) Seg Neutrophils % Seg Neuts % (Manual) 75.0 H Lymphocytes % (Manual) 2.0 L Nucleated RBC % Seg Neutrophils # Seg Neutrophils # Man 14.3 H Lymphocytes # (Manual) 0.4 L Monocytes # (Manual) 1.0 H D-Dimer ABG pH 7.314 L POC ABG pCO2 48.9 H POC ABG pO2 ABG Hemoglobin ABG Oxyhemoglobin ABG Sodium ABG Potassium 5.0 H ABG Chloride 109.0 H ABG Glucose 234 H Carboxyhemoglobin 0.4 L Sodium Potassium 5.2 H Chloride 110.0 H Carbon Dioxide BUN 90 H Creatinine 1.8 H Glucose 235 H POC Glucose Lactic Acid Calcium Magnesium 2.60 H AST ALT Arterial Blood Glucose 234 H Arterial Blood Ionized Calcium Urine WBC (Auto) Urine Creatinine 08/05/21 08/05/21 08/05/21 06:05 12:02 17:08 WBC RBC Hgb Hct RDW Lymph % (Auto) Lymph # (Auto) [place] # (Auto) Seg Neutrophils % Seg Neuts % (Manual) Lymphocytes % (Manual) Nucleated RBC % Seg Neutrophils # Seg Neutrophils # Man Lymphocytes # (Manual) Monocytes # (Manual) D-Dimer ABG pH POC ABG pCO2 POC ABG pO2 ABG Hemoglobin ABG Oxyhemoglobin ABG Sodium ABG Potassium ABG Chloride ABG Glucose Carboxyhemoglobin Sodium Potassium Chloride Carbon Dioxide BUN Creatinine Glucose POC Glucose 225 H 193 H 263 H Lactic Acid Calcium Magnesium AST ALT Arterial Blood Glucose Arterial Blood Ionized Calcium Urine WBC (Auto) Urine Creatinine 08/05/21 08/06/21 08/06/21 23:34 05:00 05:00 WBC 16.8 H RBC 3.64 L Hgb Hct RDW 16.6 H Lymph % (Auto) Lymph # (Auto) [place] # (Auto) Seg Neutrophils % Seg Neuts % (Manual) Lymphocytes % (Manual) Nucleated RBC % Seg Neutrophils # Seg Neutrophils # Man Lymphocytes # (Manual) Monocytes # (Manual) D-Dimer ABG pH POC ABG pCO2 POC ABG pO2 ABG Hemoglobin ABG Oxyhemoglobin ABG Sodium ABG Potassium ABG Chloride ABG Glucose Carboxyhemoglobin Sodium Potassium Chloride 109.3 H Carbon Dioxide BUN 89 H Creatinine 1.6 H Glucose 197 H POC Glucose 224 H Lactic Acid Calcium 8.2 L Magnesium AST ALT Arterial Blood Glucose Arterial Blood Ionized Calcium Urine WBC (Auto) Urine Creatinine 08/06/21 08/06/21 08/06/21 05:26 11:38 16:30 WBC RBC Hgb Hct RDW Lymph % (Auto) Lymph # (Auto) [place] # (Auto) Seg Neutrophils % Seg Neuts % (Manual) Lymphocytes % (Manual) Nucleated RBC % Seg Neutrophils # Seg Neutrophils # Man Lymphocytes # (Manual) Monocytes # (Manual) D-Dimer ABG pH POC ABG pCO2 POC ABG pO2 ABG Hemoglobin ABG Oxyhemoglobin ABG Sodium ABG Potassium ABG Chloride ABG Glucose Carboxyhemoglobin Sodium Potassium Chloride Carbon Dioxide BUN Creatinine Glucose POC Glucose 168 H 160 H 135 H Lactic Acid Calcium Magnesium AST ALT Arterial Blood Glucose Arterial Blood Ionized Calcium Urine WBC (Auto) Urine Creatinine 08/06/21 08/07/21 08/07/21 23:08 04:00 04:00 WBC 13.6 H RBC 3.30 L Hgb 9.5 L Hct 29.2 L RDW 16.7 H Lymph % (Auto) Lymph # (Auto) Victoria # (Auto) Seg Neutrophils % Seg Neuts % (Manual) Lymphocytes % (Manual) Nucleated RBC % Seg Neutrophils # Seg Neutrophils # Man Lymphocytes # (Manual) Monocytes # (Manual) D-Dimer ABG pH POC ABG pCO2 POC ABG pO2 ABG Hemoglobin ABG Oxyhemoglobin ABG Sodium ABG Potassium ABG Chloride ABG Glucose Carboxyhemoglobin Sodium 146 H Potassium Chloride 111.4 H Carbon Dioxide BUN 78 H Creatinine 1.5 H Glucose 143 H POC Glucose 125 H Lactic Acid Calcium 8.2 L Magnesium AST ALT Arterial Blood Glucose Arterial Blood Ionized Calcium Urine WBC (Auto) Urine Creatinine 08/07/21 08/07/21 08/07/21 04:00 05:16 12:12 WBC RBC Hgb Hct RDW Lymph % (Auto) Lymph # (Auto) Victoria # (Auto) Seg Neutrophils % Seg Neuts % (Manual) Lymphocytes % (Manual) Nucleated RBC % Seg Neutrophils # Seg Neutrophils # Man Lymphocytes # (Manual) Monocytes # (Manual) D-Dimer ABG pH POC ABG pCO2 POC ABG pO2 80.1 L ABG Hemoglobin 9.8 L ABG Oxyhemoglobin ABG Sodium ABG Potassium ABG Chloride 111.0 H ABG Glucose 157 H Carboxyhemoglobin 0.3 L Sodium Potassium Chloride Carbon Dioxide BUN Creatinine Glucose POC Glucose 144 H 125 H Lactic Acid Calcium Magnesium AST ALT Arterial Blood Glucose 157 H Arterial Blood Ionized Calcium 4.5 L Urine WBC (Auto) Urine Creatinine 08/07/21 08/08/21 08/08/21 23:20 04:47 06:00 WBC 13.8 H RBC 3.19 L Hgb 9.3 L Hct 28.4 L RDW 16.4 H Lymph % (Auto) Lymph # (Auto) Victoria # (Auto) Seg Neutrophils % Seg Neuts % (Manual) Lymphocytes % (Manual) Nucleated RBC % Seg Neutrophils # Seg Neutrophils # Man Lymphocytes # (Manual) Monocytes # (Manual) D-Dimer ABG pH POC ABG pCO2 POC ABG pO2 ABG Hemoglobin ABG Oxyhemoglobin ABG Sodium ABG Potassium ABG Chloride ABG Glucose Carboxyhemoglobin Sodium Potassium Chloride Carbon Dioxide BUN Creatinine Glucose POC Glucose 118 H 130 H Lactic Acid Calcium Magnesium AST ALT Arterial Blood Glucose Arterial Blood Ionized Calcium Urine WBC (Auto) Urine Creatinine 08/08/21 08/08/21 06:00 11:33 WBC RBC Hgb Hct RDW Lymph % (Auto) Lymph # (Auto) [place] # (Auto) Seg Neutrophils % Seg Neuts % (Manual) Lymphocytes % (Manual) Nucleated RBC % Seg Neutrophils # Seg Neutrophils # Man Lymphocytes # (Manual) Monocytes # (Manual) D-Dimer ABG pH POC ABG pCO2 POC ABG pO2 ABG Hemoglobin ABG Oxyhemoglobin ABG Sodium ABG Potassium ABG Chloride ABG Glucose Carboxyhemoglobin Sodium 147 H Potassium Chloride 112.4 H Carbon Dioxide BUN 71 H Creatinine 1.4 H Glucose 124 H POC Glucose 126 H Lactic Acid Calcium Magnesium AST ALT Arterial Blood Glucose Arterial Blood Ionized Calcium Urine WBC (Auto) Urine Creatinine Chest x-ray: image reviewed Allied health notes reviewed: RT
--- NOTE | 2021-08-08 15:23 | Progress Note ---
Assessment and Plan Cultures: Blood culture 07/27/2021 no growth Sputum 07/29/2021 usual respiratory leila Urine culture 08/02/2021 no growth A/P: 66-year-old female past medical history metastatic breast cancer, hypertension, diabetes, COPD now with: #Acute sepsis: Remains with low-grade fever, leukocytosis improving. Etiology likely due to pneumonia +/-metastatic breast cancer +/- UTI. Sepsis has been up and down in the setting of recent CODE BLUE. #Acute hypoxic respiratory failure: Currently on the vent. In the setting of pneumonia and metastatic breast cancer to the lungs. Patient has a right upper lobe mass. S/p lung mass biopsy has revealed metastatic breast cancer, triple negative. #Left lower extremity DVT and started on therapeutic Lovenox. #Metastatic breast cancer to the lungs. #WYATT: Renally dose medications. Improving. Recs: -Continue cefepime D7 of 7 -Trend white count, fevers Very Guarded prognosis. Consider palliative care consult Rossy Gutierrez MD [facility] ([facility]) Office [phone] Subjective Date of service: 08/08/21 Principal diagnosis: Ac hypoxemic resp failure ; AE-COPD; H/O CA Breast; DM II; HTN Interval history: Critically ill [id number], intubated. Objective - Exam Narrative Exam: General appearance: Sedated intubated Eyes: anicteric sclerae, moist conjunctivae; no lid-lag; PERRLA HENT: Normocephalic, Atraumatic; normal external ears, nares open, oropharynx endotracheal tube in place Neck: supple, tracheal midline, no JVD Lungs: Coarse breath sound bilaterally CV: RRR no murmur Abdomen: Soft, nontender, obese Extremities: no edema, no cyanosis Skin: No rash. Psych: Sedated Neuro: Sedated - Constitutional Vitals: Vital Signs Temp Pulse Resp BP Pulse Ox 100.8 F H 115 H 17 115/70 94 08/08/21 12:00 08/08/21 13:00 08/08/21 13:00 08/08/21 13:00 08/08/21 13:00 Temperature -Last 24 Hours Temperature 100.8 F Temperature 99.7 F Temperature 98.4 F Temperature 98.8 F Temperature 98.9 F Temperature 98.7 F - Labs CBC & Chem 7: 09/13/21 06:00 08/08/21 06:00 Labs: Abnormal lab results 08/07/21 08/08/21 08/08/21 Range/Units 23:20 04:47 06:00 WBC 13.8 H (4.5-11.0) K/mm3 RBC 3.19 L (3.65-5.03) M/mm3 Hgb 9.3 L (10.1-14.3) gm/dl Hct 28.4 L (30.3-42.9) % RDW 16.4 H (13.2-15.2) % Sodium (137-145) mmol/L Chloride (98-107) mmol/L BUN (7-17) mg/dL Creatinine (0.6-1.2) mg/dL Glucose (65-100) mg/dL POC Glucose 118 H 130 H (70-105) mg/dL 08/08/21 08/08/21 Range/Units 06:00 11:33 WBC (4.5-11.0) K/mm3 RBC (3.65-5.03) M/mm3 Hgb (10.1-14.3) gm/dl Hct (30.3-42.9) % RDW (13.2-15.2) % Sodium 147 H (137-145) mmol/L Chloride 112.4 H (98-107) mmol/L BUN 71 H (7-17) mg/dL Creatinine 1.4 H (0.6-1.2) mg/dL Glucose 124 H (65-100) mg/dL POC Glucose 126 H (70-105) mg/dL
--- NOTE | 2021-08-08 16:15 | Event Note ---
Date: 08/08/21 Pt chart reviewed. Discussed with Dr. Ambriz. 66-year-old female with 1. vent dependent respiratory failure 2. Metastatic breast cancer to lung 3. LE DVT Plan: 1. Continue care as per ICU team and consultants 2. Per onc notes patient is not a good candidate for chemotherapy. Team is trying to reach patient's established oncologist Dr. Wade. 3. Spoke with patient's daughter Rosana Dias and Femi Nathan regarding trach and peg. Indication for procedures along with risks, benefits, alternatives discussed. Explained patient's poor prognosis. They understand but want to proceed with trach and peg. Consent obtained. Pt is scheduled for procedures in OR on 08/10 @1600 4. Will hold lovenox day before surgery 5. Hold TF at [place] 08/10 Patient has a very poor prognosis 2/2 met breast cancer to lung, triple negative markers, and as she is not a good candidate for adjuvant therapy at this time. Thank you. Please call with any questions or concerns. Evaluation and treatment of this patient was during the time of the national and state emergency arising from COVID19 coronavirus pandemic. Treatment and procedures performed meet the current and available best practice and guidelines for patient during the COVID pandemic.
[2021-08-08 21:17] LABS: Bacteria,Urine 1+ /HPF (Negative); Bilirubin,Urine NEG (Negative); Blood,Urine MOD (Negative); Color,Urine Yellow (Yellow); Mucus,Urine FEW /HPF; Urobilinogen,Urine < 2.0 mg/dL (<2.0)
[2021-08-08] MEDS: INSULIN GLARGINE 100 UNITS/ML SUB-Q SCH (22:18)
[2021-08-09] MEDS: fentaNYL DRIP Premix 2,000 MCG/100 ML BAG IV SCH ×4 (01:12→20:29)
[2021-08-09] MEDS: FREE WATER PO SCH ×6 (01:13→21:05)
[2021-08-09] MEDS: INSULIN LISPRO 100 UNIT/ML SUB-Q SCH ×4 (01:13→19:06)
[2021-08-09] MEDS: BUDESONIDE 0.5 MG/2 ML NEBU IH SCH ×2 (08:13→20:06)
[2021-08-09] MEDS: ARFORMOTEROL 15 MCG/2 ML NEBU IH SCH ×2 (08:13→20:06)
[2021-08-09] MEDS: IPRATROPIUM/ALBUTEROL SULFATE 3 ML AMPUL.NEB IH SCH ×3 (08:13→20:06)
[2021-08-09] MEDS: QUEtiapine 200 MG TAB PO SCH ×2 (09:26→21:54)
[2021-08-09] MEDS: FAMOTIDINE 20 MG/2 ML INJ IV SCH ×2 (09:26→21:54)
[2021-08-09] MEDS: SENNOSIDES/DOCUSATE SODIUM 8.6/50 MG TAB FEEDTUBE SCH ×2 (09:26→21:54)
--- NOTE | 2021-08-09 09:31 | Progress Note ---
<TONNYGURWINDER A - Last Filed: 08/09/21 10:48> Assessment and Plan Assessment and plan: Assessment and Plan Assessment and plan: This is a 66-year-old female with HTN, DM, HLD and COPD admitted for acute hypoxic respiratory failure, COPD exacerbation, pneumonia and left lower leg DVT Neuro: Acute metabolic encephalopathy; agitatin -Sedated with Versed and fentanyl, Seroquel -daily SAT limited by agitation and hypoxia -RASS goal -2 to -3 -Bilateral restraints for safety -update family daily on plan of care Cardio: h/o HTN, s/p cardiac arrest, h/o HLD -Echocardiogram completed-> EF 50 to 55% with mild diastolic dysfunction -Blood pressure monitor per protocol -MAP goal > 65 -Patient had cardiac arrest on 07/29 and was intubated -Antihypertensives prn ST Respiratory: Acute hypoxic respiratory failure, COPD exacerbation; lung ca with mediastinal mass -CCM consulted, appreciate recommendations -VAP bundle -Daily SBT and SAT trials as tolerated -Intubated with 7.50 ETT at 22 at the lips on 07/29 see RT flow sheet for vent settings -Daily ABG and CXR -Continue SPO2 monitoring -FOR TRACH AND PEG SUN AM; NPO PM; HOLD LOVENOX AT MN GI: constipation -TF-- NPO P MN -nutrition following -BR -PPI : Acute kidney injury likely 2/2 vasomotor nephropathy/pre-renal; HYPERNA -Nephrology consulted, appreciate recommendations -08/01 FeNA calculated at 0.13-> indicating prerenal -trend Cr -Strict intake and output -Avoid nephrotoxic medications -Renally dose medications -Elizabeth in place; Elizabeth changed on 08/05 -follow and replace electrolytes as needed -FWF FOR NA ID: Acute sepsis, pneumonia; febrile -ABX therapy: Cefepime -07/27 BC x2 with no growth after 4 days -07/29 tracheal aspirate with no growth -follow culture data -Monitor CBCs and fever curve -febrile to 100 -ID following Heme: Left lower leg DVT, leukocytosis; lung ca with med mass -cont Lovenox- HOLD AT MN -SCDs to bilateral lower extremities while in bed -Trend CBC -evidenced on BLE US -heme onc following Oncology: h/o breast cancer, Lung mass, breast carcinoma with metastasis -CXR shows suspicious nodular density at the left base -08/02 bronchoscopy -Heme/oncology consulted, appreciate recommendations -08/02 bronchoscopy completed; washings and brush sent for cytology, cell count and AFB-> preliminary results obtained, see report -08/02: AFB from bronc negative -08/02 PTH surgical report: Biomarker ER, ID, HER-2 negative, TTF1 and HMB 4 5 are not expressed -CEA low -Heme onc following ? transfer to higher level of care oncologist Dr. Wade at [place] at [phone] Endo: h/o DM; stress hyperglycemia -SSI -Avoid hypoglycemia -Lantus, titrate as needed The high probability of a clinically significant, sudden or life threatening deterioration of the [multi] system(s) required my full and direct attention, intervention and personal management. The aggregate critical care time was [60] minutes. This time is in addition to time spent performing reported procedures but includes the following: [x] Data Review and interpretation [x] Patient assessment and monitoring of vital signs [x] Documentation [x] Medication orders and management Disposition Plan: icu Total Time Spent with Patient (Minutes): 60 History Interval history: This is a 66-year-old female with HTN, DM, HLD and COPD who presented to emergency department on 07/28 with complaints of difficulty in breathing ongoing for the past few days via EMS. En route she was given Solu-Medrol IV magnesium and albuterol nebulizing treatment. Upon arrival to emergency department patient had multiple rounds of embolizing treatments and was subsequently placed on BiPAP with some improvement. Patient has been fully vaccinated. Work-up in the emergency department revealed CXR suspicious for right-sided pneumonia, nodular density in the left base and increased interstitial markings which may be chronic. Patient was admitted to the hospitalist service with electrolyte imbalances, leukocytosis, COPD exacerbation, hypoxia and possible pneumonia. 07/29/2021. Patient seen this morning with Shabbir-Chavira respiration/agonal breathing. RENEE ABREU was called and patient was intubated and placed on mechanical ventilation. Patient transferred to ICU. Critical care/pulmonary consulted. Patient currently with AC mode rate of 30, FiO2 100%, PEEP of 12. Continue IV antibiotics. Consult ID and oncology for further evaluation. Patient will likely need bronchoscopy for further evaluation of the lung mass. Doppler ultrasound revealedLLE DVT. Start anticoagulation. 07/30/2021. Patient appears much improved and more responsive this morning. Patient currently with AC mode ventilation rate of 24, tidal volume 450, PEEP of 8 and FiO2 35%. Spontaneous breathing trials with possible extubation today per pulmonary. Bronchoscopy per pulmonary. Continue Lovenox twice daily for DVT. Continue IV antibiotics for sepsis/pneumonia. ID consultation pending. Follow-up CEA, CA 15-3, [place] 2729. 07/31/2021. Echocardiogram reveals left ventricular size and function are normal. EF 50 to 55% with mild diastolic dysfunction. Patient currently with CPAP/PSV trial 11/02. Anticipate extubation today per pulmonary. Bronchoscopy per pulmonary. Continue Lovenox twice daily for DVT. Continue IV antibiotics for sepsis/pneumonia. ID consultation pending. Follow-up CEA, CA 15-3, [place] 2729. 08/01: ALIYAH 08/02: Patient had a bronchoscopy today. Cell count, cytology and AFB sent from samples. Patient remains sedated on fentanyl and Versed. Patient and daughter Rosana were updated. 08/03: [facility] follow-up on [facility] specimens and was informed patient specimens indicate cancer. Communicated to Dr. Abbott and he stated he will update family. 08/04: Patient remains sedated on fentanyl and Versed, patient has moments of agitation with any stimulation. CPAP trial unable to be completed today due to agitation. 08/05: Patient had low urine output overnight and Elizabeth catheter was changed this a.m. with 2 L of urine output received. Patient did have a increase in creatinine however this may have been obstructive process and nephrology is aware. Hematology/oncology spoke to family who wishes for everything to be done despite bronchial washings with cancer cells. [facility] contacted patient's oncologist to help facilitate transfer. We attempted to hold sedation for CPAP trial however patient became extremely agitated and sedation was restarted. 08/06: Surgery consulted for possible trach. Leukocytosis and renal function slowly improving. No acute events reported overnight. 08/07: Creatinine continues to decrease, patient has slight hyper natremia and hyperchloremia. Patient remains on fentanyl and Versed with periods of agitation. Increasing free water flushes. 08-08 improving cr; febrile; family wants full care/full code- heme onc following 08-09 LOW GRADE FEVERS; FOR TRACH/PEG Sun Disposition Plan: icu Total Time Spent with Patient (Minutes): 60 History Interval history: ALIYAH OVERNIGHT Hospitalist Physical - Constitutional Vitals: Temp Pulse Resp BP Pulse Ox 99.9 F H 83 16 112/62 97 08/09/21 07:00 08/09/21 08:40 08/09/21 08:40 08/09/21 08:17 08/09/21 08:17 General appearance: Present: no acute distress, well-nourished, other - EENT Eyes: Present: PERRL, EOM intact ENT: clear oral mucosa - Neck Neck: Present: supple, normal ROM - Respiratory Respiratory effort: normal - Cardiovascular Rhythm: regular - Extremities Extremities: no ischemia - Abdominal General gastrointestinal: soft - Integumentary Integumentary: Present: clear, warm, dry - Psychiatric Psychiatric: other - Neurologic Neurologic: other - Allied Health Allied health notes reviewed: nursing, RT, social work, case management Results - Labs CBC & Chem 7: 08/09/21 10:00 08/09/21 10:00 Labs: Laboratory Last Values WBC 13.8 K/mm3 (4.5-11.0) H 08/08/21 06:00 RBC 3.19 M/mm3 (3.65-5.03) L 08/08/21 06:00 Hgb 9.3 gm/dl (10.1-14.3) L 08/08/21 06:00 Hct 28.4 % (30.3-42.9) L 08/08/21 06:00 MCV 89 fl (79-97) 08/08/21 06:00 MCH 29 pg (28-32) 08/08/21 06:00 MCHC 33 % (30-34) 08/08/21 06:00 RDW 16.4 % (13.2-15.2) H 08/08/21 06:00 Plt Count 225 K/mm3 (140-440) 08/08/21 06:00 Lymph % (Auto) 5.1 % (13.4-35.0) L 08/02/21 Unknown Churchill % (Auto) 6.1 % (0.0-7.3) 08/02/21 Unknown Eos % (Auto) 0.0 % (0.0-4.3) 08/02/21 Unknown Baso % (Auto) 0.1 % (0.0-1.8) 08/02/21 Unknown Lymph # (Auto) 0.7 K/mm3 (1.2-5.4) L 08/02/21 Unknown Churchill # (Auto) 0.9 K/mm3 (0.0-0.8) H 08/02/21 Unknown Eos # (Auto) 0.0 K/mm3 (0.0-0.4) 08/02/21 Unknown Baso # (Auto) 0.0 K/mm3 (0.0-0.1) 08/02/21 Unknown Add Manual Diff Complete 08/05/21 04:50 Total Counted 100 08/05/21 04:50 Seg Neutrophils % 88.7 % (40.0-70.0) H 08/02/21 Unknown Seg Neuts % (Manual) 75.0 % (40.0-70.0) H 08/05/21 04:50 Band Neutrophils % 8.0 % 08/05/21 04:50 Lymphocytes % (Manual) 2.0 % (13.4-35.0) L 08/05/21 04:50 Monocytes % (Manual) 5.0 % (0.0-7.3) 08/05/21 04:50 Eosinophils % (Manual) 1.0 % (0.0-4.3) 08/05/21 04:50 Metamyelocytes % 6.0 % 08/05/21 04:50 Myelocytes % 3.0 % 08/05/21 04:50 Nucleated RBC % Not Reportable 08/05/21 04:50 Seg Neutrophils # 12.5 K/mm3 (1.8-7.7) H 08/02/21 Unknown Seg Neutrophils # Man 14.3 K/mm3 (1.8-7.7) H 08/05/21 04:50 Band Neutrophils # 1.5 K/mm3 08/05/21 04:50 Lymphocytes # (Manual) 0.4 K/mm3 (1.2-5.4) L 08/05/21 04:50 Abs React Lymphs (Man) 0.0 K/mm3 08/05/21 04:50 Monocytes # (Manual) 1.0 K/mm3 (0.0-0.8) H 08/05/21 04:50 Eosinophils # (Manual) 0.2 K/mm3 (0.0-0.4) 08/05/21 04:50 Basophils # (Manual) 0.0 K/mm3 (0.0-0.1) 08/05/21 04:50 Metamyelocytes # 1.1 K/mm3 08/05/21 04:50 Myelocytes # 0.6 K/mm3 08/05/21 04:50 Promyelocytes # 0.0 K/mm3 08/05/21 04:50 Blast Cells # 0.0 K/mm3 08/05/21 04:50 WBC Morphology Not Reportable 08/05/21 04:50 Hypersegmented Neuts Not Reportable 08/05/21 04:50 Hyposegmented Neuts Not Reportable 08/05/21 04:50 Hypogranular Neuts Not Reportable 08/05/21 04:50 Smudge Cells Not Reportable 08/05/21 04:50 Toxic Granulation Not Reportable 08/05/21 04:50 Toxic Vacuolation Not Reportable 08/05/21 04:50 Dohle Bodies Not Reportable 08/05/21 04:50 Pelger-Huet Anomaly Not Reportable 08/05/21 04:50 Beryl Rods Not Reportable 08/05/21 04:50 Platelet Estimate Consistent w auto 08/05/21 04:50 Clumped Platelets Not Reportable 08/05/21 04:50 Plt Clumps, EDTA Not Reportable 08/05/21 04:50 Large Platelets Not Reportable 08/05/21 04:50 Giant Platelets Not Reportable 08/05/21 04:50 Platelet Satelliting Not Reportable 08/05/21 04:50 Plt Morphology Comment Not Reportable 08/05/21 04:50 RBC Morphology Not Reportable 08/05/21 04:50 Dimorphic RBCs Not Reportable 08/05/21 04:50 Polychromasia Not Reportable 08/05/21 04:50 Hypochromasia Not Reportable 08/05/21 04:50 Poikilocytosis Not Reportable 08/05/21 04:50 Anisocytosis Not Reportable 08/05/21 04:50 Microcytosis Not Reportable 08/05/21 04:50 Macrocytosis Not Reportable 08/05/21 04:50 Spherocytes Not Reportable 08/05/21 04:50 Pappenheimer Bodies Not Reportable 08/05/21 04:50 Sickle Cells Not Reportable 08/05/21 04:50 Target Cells Not Reportable 08/05/21 04:50 Tear Drop Cells Not Reportable 08/05/21 04:50 Ovalocytes Few 08/05/21 04:50 Helmet Cells Not Reportable 08/05/21 04:50 Paul-[place]ash[place] Bodies Not Reportable 08/05/21 04:50 Macarthur Rings Not Reportable 08/05/21 04:50 Estelita Cells Not Reportable 08/05/21 04:50 Bite Cells Not Reportable 08/05/21 04:50 Crenated Cell Not Reportable 08/05/21 04:50 Elliptocytes Not Reportable 08/05/21 04:50 Acanthocytes (Spur) Not Reportable 08/05/21 04:50 Rouleaux Not Reportable 08/05/21 04:50 Hemoglobin C Crystals Not Reportable 08/05/21 04:50 Schistocytes Not Reportable 08/05/21 04:50 Malaria parasites Not Reportable 08/05/21 04:50 Gurmeet Bodies Not Reportable 08/05/21 04:50 Hem Pathologist Commnt No 08/05/21 04:50 PT 14.0 Sec. (12.2-14.9) 08/03/21 08:30 INR 1.03 (0.87-1.13) 08/03/21 08:30 D-Dimer 852.47 ng/mlDDU (0-234) H 07/29/21 07:17 ABG pH 7.368 (7.320-7.450) 08/07/21 04:00 POC ABG pCO2 42.0 mmHg (32.0-48.0) 08/07/21 04:00 POC ABG pO2 80.1 mmHg (83-108) L 08/07/21 04:00 POC ABG HCO3 23.6 08/07/21 04:00 ABG O2 Saturation 95.2 (0-100) 08/07/21 04:00 POC ABG Base Excess -1.6 08/07/21 04:00 ABG Hemoglobin 9.8 (12.0-17.5) L 08/07/21 04:00 ABG Oxyhemoglobin 94.9 (94-98) 08/07/21 04:00 ABG Methemoglobin 0 (0.0-1.5) 08/07/21 04:00 ABG Sodium 142.1 mmol/L (136.0-145.0) 08/07/21 04:00 ABG Potassium 3.9 mmol/L (3.40-4.50) 08/07/21 04:00 ABG Chloride 111.0 mmol/L (98-107) H 08/07/21 04:00 ABG Glucose 157 mg/dL (65-95) H 08/07/21 04:00 Carboxyhemoglobin 0.3 (0.5-1.5) L 08/07/21 04:00 FiO2 % 30.0 08/07/21 04:00 Sodium 147 mmol/L (137-145) H 08/08/21 06:00 Potassium 4.0 mmol/L (3.6-5.0) 08/08/21 06:00 Chloride 112.4 mmol/L (98-107) H 08/08/21 06:00 Carbon Dioxide 27 mmol/L (22-30) 08/08/21 06:00 Anion Gap 12 mmol/L 08/08/21 06:00 BUN 71 mg/dL (7-17) H 08/08/21 06:00 Creatinine 1.4 mg/dL (0.6-1.2) H 08/08/21 06:00 Estimated GFR 46 ml/min 08/08/21 06:00 BUN/Creatinine Ratio 51 % 08/08/21 06:00 Glucose 124 mg/dL (65-100) H 08/08/21 06:00 POC Glucose 127 mg/dL (70-105) H 08/09/21 06:06 Lactic Acid 2.10 mmol/L (0.7-2.0) H* 08/03/21 15:11 Calcium 8.4 mg/dL (8.4-10.2) 08/08/21 06:00 Phosphorus 4.10 mg/dL (2.5-4.5) 08/08/21 06:00 Magnesium 2.20 mg/dL (1.7-2.3) 08/08/21 06:00 Total Bilirubin 0.30 mg/dL (0.1-1.2) 07/27/21 22:57 AST 98 units/L (5-40) H 07/27/21 22:57 ALT 90 units/L (7-56) H 07/27/21 22:57 Alkaline Phosphatase 98 units/L (35-129) 07/27/21 22:57 Total Protein 8.0 g/dL (6.3-8.2) 07/27/21 22:57 Albumin 4.2 g/dL (3.9-5) 07/27/21 22:57 Albumin/Globulin Ratio 1.1 % 07/27/21 22:57 Carcinoembryonic Ag <0.5 ng/mL (0.0-2.4) 07/31/21 04:45 Arterial Blood Glucose 157 mg/dL (65-95) H 08/07/21 04:00 Arterial Blood Ionized Calcium 4.5 mg/dL (4.6-5.3) L 08/07/21 04:00 Urine Color Yellow (Yellow) 08/08/21 20: Urine Turbidity Slightly-cloudy (Clear) 08/08/21 20: Urine pH 5.0 (5.0-7.0) 08/08/21 20: Ur Specific Humphreys 1.014 (1.003-1.030) 08/08/21 20: Urine Protein 30 mg/dl mg/dL (Negative) 08/08/21 20: Urine Glucose (UA) Neg mg/dL (Negative) 08/08/21 20: Urine Ketones Neg mg/dL (Negative) 08/08/21 20: Urine Blood Mod (Negative) 08/08/21 20:27 Urine Nitrite Neg (Negative) 08/08/21 20: Urine Bilirubin Neg (Negative) 08/08/21 20: Urine Urobilinogen < 2.0 mg/dL (<2.0) 08/08/21 20:27 Ur Leukocyte Esterase Neg (Negative) 08/08/21 20:27 Urine WBC (Auto) 6.0 /HPF (0.0-6.0) 08/08/21 20: Urine RBC (Auto) 6.0 /HPF (0.0-6.0) 08/08/21 20: U Epithel Cells (Auto) < 1.0 /HPF (0-13.0) 08/08/21 20:27 Urine Bacteria (Auto) 1+ /HPF (Negative) 08/08/21 20: Urine Mucus Few /HPF 08/08/21 20:27 Urine Yeast (Budding) 1+ /HPF 08/08/21 20:27 Urine Creatinine 125.6 mg/dL (0.1-20.0) H 08/01/21 Unknown Urine Sodium 12 mmol/L 08/01/21 Unknown Double Strand DNA Ab 1 IU/mL (<=4) 08/02/21 15:40 Coronavirus (PCR) Negative (Negative) 07/29/21 07:58 Hepatitis A IgM Ab Non-reactive (NonReactive) 08/02/21 15:40 Hep Bs Antigen Nonreactive (Negative) 08/02/21 15:40 Hep B Core IgM Ab Non-reactive (NonReactive) 08/02/21 15:40 Hepatitis C Antibody Non-reactive (NonReactive) 08/02/21 15:40 AFB Identification Negative 08/02/21 14:30 Microbiology: Microbiology 08/08/21 16:39 Peripheral/Venous Blood Culture - Preliminary Culture in Progress 08/08/21 16:39 Peripheral/Venous Blood Culture - Preliminary Culture in Progress Elizabeth/IV: Voiding Method Indwelling Catheter Active Medications - Current Medications Current Medications: Generic Name Dose Route Start Last Admin Trade Name Freq PRN Reason Stop Dose Admin Acetaminophen 650 mg 07/28/21 02:11 Acetaminophen 325 Mg Tab PO Q6H PRN Pain MILD(1-3)/Fever >100.5/GARCIA Albuterol/Ipratropium 1 ampul 07/28/21 14:00 08/09/21 08:13 Ipratropium/Albuterol Sulfate 3 Ml Ampul.Neb IH 1 ampul TID DEMIAN Administration Lipase/Protease/Amylase 1 each 07/29/21 13:01 Lipase 10,500/Protease 25,000/Amylase 43,750 (Units) Dr Campoverde FEEDTUBE PRN PRN For Clogged Feeding Tube Arformoterol Tartrate 15 mcg 07/28/21 20:00 08/09/21 08:13 Arformoterol 15 Mcg/2 Ml Nebu IH 15 mcg Q12HRT DEMIAN Administration Bisacodyl 10 mg 08/07/21 09:50 Bisacodyl 10 Mg Rect Supp ID QDAY PRN Constip unreliev by MOM/or NPO Budesonide 0.5 mg 07/28/21 20:00 08/09/21 08:13 Budesonide 0.5 Mg/2 Ml Nebu IH 0.5 mg Q12HRT DEMIAN Administration Dextrose 50 ml 07/28/21 02:11 Dextrose 50% In Water (25gm) 50 Ml Syringe IV Q30MIN PRN Hypoglycemia Protocol Famotidine 10 mg 08/02/21 10:00 08/08/21 22:15 Famotidine 20 Mg/2 Ml Inj IV 10 mg BID DEMIAN Administration Fentanyl 50 mcg 07/29/21 10:42 08/04/21 09:05 Fentanyl 100 Mcg/2 Ml Inj IV 50 mcg Q10MIN PRN Administration ANALGESIA Hydralazine HCl 10 mg 07/30/21 14:52 08/03/21 17:31 Hydralazine 20 Mg/1 Ml Inj IV 10 mg Q6H PRN Administration SBP > 165 Hydrophilic Ointment 1 applic 07/29/21 10:42 Lip Therapy Vaseline TP Q2HR PRN Dry Lips Fentanyl Citrate 2,000 mcg in 100 mls @ 5.35 mls/hr 07/29/21 11:00 08/09/21 01:12 Fentanyl Drip Premix IV 3 mcg/kg/hr TITR DEMIAN 16.05 mls/hr Administration Protocol 1 MCG/KG/HR Midazolam HCl 100 mg/ Sodium 100 mls @ 2 mls/hr 07/29/21 11:00 08/08/21 04:55 Chloride IV 2 mg/hr TITR DEMIAN 2 mls/hr Administration Protocol 2 MG/HR Norepinephrine 4 mg in 250 mls @ 7.5 mls/hr 07/29/21 21:00 Levophed Drip 4 Mg/Ns 250 Ml IV TITR [facility] Protocol 2 MCG/MIN Insulin Glargine 30 units 08/05/21 22:00 08/08/21 22:18 Insulin Glargine 100 Units/Ml SUB-Q 30 units QHS DEMIAN Administration Insulin Human Lispro 0 unit 07/29/21 12:00 08/09/21 06:21 Insulin Lispro 100 Unit/Ml SUB-Q Not Given Q6HR [facility] Protocol Magnesium Hydroxide 30 ml 07/28/21 02:11 Magnesium Hydroxide (Mom) Oral Liqd Udc PO Q4H PRN Constipation Midazolam HCl 2 mg 07/29/21 10:42 08/07/21 10:10 Midazolam 2 Mg/2 Ml Inj IV 2 mg Q10MIN PRN Administration Sedation Multi-Ingred Cream/Lotion/Oil/Oint 1 applic 07/29/21 10:42 Mineral Oil/Petrolatum, White Ophth Oint 3.5 Gm OU Q4HR PRN Dry Eye(s) Quetiapine Fumarate 200 mg 08/05/21 22:00 08/08/21 22:15 Quetiapine 200 Mg Tab PO 200 mg BID DEMIAN Administration Senna/Docusate Sodium 1 tab 07/29/21 22:00 08/08/21 22:15 Sennosides/Docusate Sodium 8.6/50 Mg Tab FEEDTUBE 1 tab BID DEMIAN Administration Simple Syrup 15 ml 07/29/21 13:01 Simple Syrup 15 Ml FEEDTUBE PRN PRN Hypoglycemia Simple Syrup 30 ml 07/29/21 13:01 Simple Syrup 15 Ml FEEDTUBE PRN PRN Hypoglycemia Sodium Bicarbonate 325 mg 07/29/21 13:01 Sodium Bicarbonate 325 Mg Tab FEEDTUBE PRN PRN For Clogged Feeding Tube Sodium Chloride 10 ml 07/28/21 10:00 08/08/21 22:16 Sodium Chloride 0.9% 10 Ml Flush Syringe IV 10 ml BID DEMIAN Administration Sodium Chloride 10 ml 07/28/21 02:05 Sodium Chloride 0.9% 10 Ml Flush Syringe IV PRN PRN LINE FLUSH Nutrition/Malnutrition Assess - Dietary Evaluation Nutrition/Malnutrition Findings: Nutrition Notes Start: 07/28/21 14:44 Freq: Status: Active Protocol: Document 08/08/21 10:20 (Rec: 08/08/21 10:27 [id number]) Nutrition Notes Initial or Follow up Reassessment Current Diagnosis COPD,Diabetes,Hypertension, Respiratory Failure Other Pertinent Diagnosis pneu Current Diet Vital AF at 50 ml/hr Labs/Tests Na 147 BUN 71 Cr 1.4 Pertinent Medications Senokot Height 5 ft Weight 107 kg Snow Body Weight (kg) 45.45 BMI 46.0 Weight Status Morbidly Obese Subjective/Other Information Per chart, pt got rectal suppository yesterday. No BM yet documented. Pt tolerating TF at goal rate. Percent of energy/protein needs met: 96%/67% Burn Absent Trauma Absent GI Symptoms Constipation,Last BM Current % PO Negligible Minimum of two criteria No #1 Nutrition Diagnosis Inadequate oral intake Diagnosis Progress(for reassessment Continues documentation) Is patient on ventilator? Yes Is Patient Ambulatory and/or Out of Bed No [facility] 1842.852 Kcal/Kg value to use for calculation 14 Approximate Energy Requirements Using 1498 kcal/Kg Calculation Used for Recommendations Kcal/kg Additional Notes Protein: (up to 2.5g/kg IBW) up to 134g Fluid: 1 ml/kcal or per MD Nutrition Intervention Change Diet Order: continue Nutrition Support: Vital AF 1.2 at 50 ml/hr For hypernatermia, flush 250 ml ml q4h or per MD. Once resolved, flush 100 ml q4h. Kcal 1,440 Protein (gm) 90 Fluid (mL) 973 Goal #1 Meet at least 75% of protein and energy needs via TF Anticipated Discharge Needs: Unable to determine at this time Follow-Up By: 08/11/21 Additional Comments F/u: stable TF, BM - Attestation Statement I have reviewed and agreed w/ Malnutrition eval & tx plan: Yes <MT BLISS - Last Filed: 08/10/21 07:33> Assessment and Plan Assessment and plan: I saw and evaluated the patient. I agree with the findings and the plan of care as documented in the Nurse Practitioner's~note, with the following corrections and additions. Hospitalist Physical - Constitutional Vitals: Temp Pulse Resp BP Pulse Ox 98.6 F 87 15 108/69 95 08/10/21 04:00 08/10/21 07:00 08/10/21 07:00 08/10/21 07:00 08/10/21 07:00 Results - Labs CBC & Chem 7: 08/10/21 05:20 08/10/21 05:20 Labs: Laboratory Last Values WBC 13.2 K/mm3 (4.5-11.0) H 08/10/21 05:20 RBC 2.92 M/mm3 (3.65-5.03) L 08/10/21 05:20 Hgb 8.4 gm/dl (10.1-14.3) L 08/10/21 05:20 Hct 25.9 % (30.3-42.9) L 08/10/21 05:20 MCV 89 fl (79-97) 08/10/21 05:20 MCH 29 pg (28-32) 08/10/21 05:20 MCHC 32 % (30-34) 08/10/21 05:20 RDW 16.7 % (13.2-15.2) H 08/10/21 05:20 Plt Count 217 K/mm3 (140-440) 08/10/21 05:20 Lymph % (Auto) 5.1 % (13.4-35.0) L 08/02/21 Unknown Churchill % (Auto) 6.1 % (0.0-7.3) 08/02/21 Unknown Eos % (Auto) 0.0 % (0.0-4.3) 08/02/21 Unknown Baso % (Auto) 0.1 % (0.0-1.8) 08/02/21 Unknown Lymph # (Auto) 0.7 K/mm3 (1.2-5.4) L 08/02/21 Unknown Churchill # (Auto) 0.9 K/mm3 (0.0-0.8) H 08/02/21 Unknown Eos # (Auto) 0.0 K/mm3 (0.0-0.4) 08/02/21 Unknown Baso # (Auto) 0.0 K/mm3 (0.0-0.1) 08/02/21 Unknown Add Manual Diff Complete 08/05/21 04:50 Total Counted 100 08/05/21 04:50 Seg Neutrophils % 88.7 % (40.0-70.0) H 08/02/21 Unknown Seg Neuts % (Manual) 75.0 % (40.0-70.0) H 08/05/21 04:50 Band Neutrophils % 8.0 % 08/05/21 04:50 Lymphocytes % (Manual) 2.0 % (13.4-35.0) L 08/05/21 04:50 Monocytes % (Manual) 5.0 % (0.0-7.3) 08/05/21 04:50 Eosinophils % (Manual) 1.0 % (0.0-4.3) 08/05/21 04:50 Metamyelocytes % 6.0 % 08/05/21 04:50 Myelocytes % 3.0 % 08/05/21 04:50 Nucleated RBC % Not Reportable 08/05/21 04:50 Seg Neutrophils # 12.5 K/mm3 (1.8-7.7) H 08/02/21 Unknown Seg Neutrophils # Man 14.3 K/mm3 (1.8-7.7) H 08/05/21 04:50 Band Neutrophils # 1.5 K/mm3 08/05/21 04:50 Lymphocytes # (Manual) 0.4 K/mm3 (1.2-5.4) L 08/05/21 04:50 Abs React Lymphs (Man) 0.0 K/mm3 08/05/21 04:50 Monocytes # (Manual) 1.0 K/mm3 (0.0-0.8) H 08/05/21 04:50 Eosinophils # (Manual) 0.2 K/mm3 (0.0-0.4) 08/05/21 04:50 Basophils # (Manual) 0.0 K/mm3 (0.0-0.1) 08/05/21 04:50 Metamyelocytes # 1.1 K/mm3 08/05/21 04:50 Myelocytes # 0.6 K/mm3 08/05/21 04:50 Promyelocytes # 0.0 K/mm3 08/05/21 04:50 Blast Cells # 0.0 K/mm3 08/05/21 04:50 WBC Morphology Not Reportable 08/05/21 04:50 Hypersegmented Neuts Not Reportable 08/05/21 04:50 Hyposegmented Neuts Not Reportable 08/05/21 04:50 Hypogranular Neuts Not Reportable 08/05/21 04:50 Smudge Cells Not Reportable 08/05/21 04:50 Toxic Granulation Not Reportable 08/05/21 04:50 Toxic Vacuolation Not Reportable 08/05/21 04:50 Dohle Bodies Not Reportable 08/05/21 04:50 Pelger-Huet Anomaly Not Reportable 08/05/21 04:50 Beryl Rods Not Reportable 08/05/21 04:50 Platelet Estimate Consistent w auto 08/05/21 04:50 Clumped Platelets Not Reportable 08/05/21 04:50 Plt Clumps, EDTA Not Reportable 08/05/21 04:50 Large Platelets Not Reportable 08/05/21 04:50 Giant Platelets Not Reportable 08/05/21 04:50 Platelet Satelliting Not Reportable 08/05/21 04:50 Plt Morphology Comment Not Reportable 08/05/21 04:50 RBC Morphology Not Reportable 08/05/21 04:50 Dimorphic RBCs Not Reportable 08/05/21 04:50 Polychromasia Not Reportable 08/05/21 04:50 Hypochromasia Not Reportable 08/05/21 04:50 Poikilocytosis Not Reportable 08/05/21 04:50 Anisocytosis Not Reportable 08/05/21 04:50 Microcytosis Not Reportable 08/05/21 04:50 Macrocytosis Not Reportable 08/05/21 04:50 Spherocytes Not Reportable 08/05/21 04:50 Pappenheimer Bodies Not Reportable 08/05/21 04:50 Sickle Cells Not Reportable 08/05/21 04:50 Target Cells Not Reportable 08/05/21 04:50 Tear Drop Cells Not Reportable 08/05/21 04:50 Ovalocytes Few 08/05/21 04:50 Helmet Cells Not Reportable 08/05/21 04:50 Paul-[place] Bodies Not Reportable 08/05/21 04:50 Macarthur Rings Not Reportable 08/05/21 04:50 Castella Cells Not Reportable 08/05/21 04:50 Bite Cells Not Reportable 08/05/21 04:50 Crenated Cell Not Reportable 08/05/21 04:50 Elliptocytes Not Reportable 08/05/21 04:50 Acanthocytes (Spur) Not Reportable 08/05/21 04:50 Rouleaux Not Reportable 08/05/21 04:50 Hemoglobin C Crystals Not Reportable 08/05/21 04:50 Schistocytes Not Reportable 08/05/21 04:50 Malaria parasites Not Reportable 08/05/21 04:50 Gurmeet Bodies Not Reportable 08/05/21 04:50 Hem Pathologist Commnt No 08/05/21 04:50 PT 14.2 Sec. (12.2-14.9) 08/10/21 05:20 INR 1.05 (0.87-1.13) 08/10/21 05:20 APTT 29.9 Sec. (24.2-36.6) 08/10/21 05:20 D-Dimer 852.47 ng/mlDDU (0-234) H 07/29/21 07:17 ABG pH 7.368 (7.320-7.450) 08/07/21 04:00 POC ABG pCO2 42.0 mmHg (32.0-48.0) 08/07/21 04:00 POC ABG pO2 80.1 mmHg (83-108) L 08/07/21 04:00 POC ABG HCO3 23.6 08/07/21 04:00 ABG O2 Saturation 95.2 (0-100) 08/07/21 04:00 POC ABG Base Excess -1.6 08/07/21 04:00 ABG Hemoglobin 9.8 (12.0-17.5) L 08/07/21 04:00 ABG Oxyhemoglobin 94.9 (94-98) 08/07/21 04:00 ABG Methemoglobin 0 (0.0-1.5) 08/07/21 04:00 ABG Sodium 142.1 mmol/L (136.0-145.0) 08/07/21 04:00 ABG Potassium 3.9 mmol/L (3.40-4.50) 08/07/21 04:00 ABG Chloride 111.0 mmol/L (98-107) H 08/07/21 04:00 ABG Glucose 157 mg/dL (65-95) H 08/07/21 04:00 Carboxyhemoglobin 0.3 (0.5-1.5) L 08/07/21 04:00 FiO2 % 30.0 08/07/21 04:00 Sodium 147 mmol/L (137-145) H 08/10/21 05:20 Potassium 4.3 mmol/L (3.6-5.0) 08/10/21 05:20 Chloride 111.8 mmol/L (98-107) H 08/10/21 05:20 Carbon Dioxide 24 mmol/L (22-30) 08/10/21 05:20 Anion Gap 16 mmol/L 08/10/21 05:20 BUN 68 mg/dL (7-17) H 08/10/21 05:20 Creatinine 1.4 mg/dL (0.6-1.2) H 08/10/21 05:20 Estimated GFR 46 ml/min 08/10/21 05:20 BUN/Creatinine Ratio 49 % 08/10/21 05:20 Glucose 81 mg/dL (65-100) 08/10/21 05:20 POC Glucose 83 mg/dL (70-105) 08/10/21 06:08 Lactic Acid 2.10 mmol/L (0.7-2.0) H* 08/03/21 15:11 Calcium 8.9 mg/dL (8.4-10.2) 08/10/21 05:20 Phosphorus 4.10 mg/dL (2.5-4.5) 08/08/21 06:00 Magnesium 2.20 mg/dL (1.7-2.3) 08/08/21 06:00 Total Bilirubin 0.40 mg/dL (0.1-1.2) 08/09/21 10:00 AST 37 units/L (5-40) 08/09/21 10:00 ALT 69 units/L (7-56) H 08/09/21 10:00 Alkaline Phosphatase 67 units/L (35-129) 08/09/21 10:00 Total Protein 5.2 g/dL (6.3-8.2) L 08/09/21 10:00 Albumin 2.6 g/dL (3.9-5) L 08/09/21 10:00 Albumin/Globulin Ratio 1.0 % 08/09/21 10:00 Carcinoembryonic Ag <0.5 ng/mL (0.0-2.4) 07/31/21 04:45 Arterial Blood Glucose 157 mg/dL (65-95) H 08/07/21 04:00 Arterial Blood Ionized Calcium 4.5 mg/dL (4.6-5.3) L 08/07/21 04:00 Urine Color Yellow (Yellow) 08/08/21 20: Urine Turbidity Slightly-cloudy (Clear) 08/08/21 20: Urine pH 5.0 (5.0-7.0) 08/08/21 20: Ur Specific Humphreys 1.014 (1.003-1.030) 08/08/21 20: Urine Protein 30 mg/dl mg/dL (Negative) 08/08/21 20: Urine Glucose (UA) Neg mg/dL (Negative) 08/08/21 20: Urine Ketones Neg mg/dL (Negative) 08/08/21 20: Urine Blood Mod (Negative) 08/08/21 20: Urine Nitrite Neg (Negative) 08/08/21 20: Urine Bilirubin Neg (Negative) 08/08/21 20:27 Urine Urobilinogen < 2.0 mg/dL (<2.0) 08/08/21 20:27 Ur Leukocyte Esterase Neg (Negative) 08/08/21 20:27 Urine WBC (Auto) 6.0 /HPF (0.0-6.0) 08/08/21 20:27 Urine RBC (Auto) 6.0 /HPF (0.0-6.0) 08/08/21 20:27 U Epithel Cells (Auto) < 1.0 /HPF (0-13.0) 08/08/21 20: Urine Bacteria (Auto) 1+ /HPF (Negative) 08/08/21 20: Urine Mucus Few /HPF 08/08/21 20: Urine Yeast (Budding) 1+ /HPF 08/08/21 20: Urine Creatinine 125.6 mg/dL (0.1-20.0) H 08/01/21 Unknown Urine Sodium 12 mmol/L 08/01/21 Unknown Double Strand DNA Ab 1 IU/mL (<=4) 08/02/21 15:40 Coronavirus (PCR) Negative (Negative) 07/29/21 07:58 Hepatitis A IgM Ab Non-reactive (NonReactive) 08/02/21 15:40 Hep Bs Antigen Nonreactive (Negative) 08/02/21 15:40 Hep B Core IgM Ab Non-reactive (NonReactive) 08/02/21 15:40 Hepatitis C Antibody Non-reactive (NonReactive) 08/02/21 15:40 AFB Identification Negative 08/02/21 14:30 Microbiology: Microbiology 08/08/21 16:39 Peripheral/Venous Blood Culture - Preliminary NO GROWTH AFTER 24 HOURS 08/08/21 16:39 Peripheral/Venous Blood Culture - Preliminary NO GROWTH AFTER 24 HOURS Elizabeth/IV: Voiding Method Indwelling Catheter Active Medications - Current Medications Current Medications: Generic Name Dose Route Start Last Admin Trade Name Freq PRN Reason Stop Dose Admin Acetaminophen 650 mg 07/28/21 02:11 Acetaminophen 325 Mg Tab PO Q6H PRN Pain MILD(1-3)/Fever >100.5/GARCIA Albuterol/Ipratropium 1 ampul 07/28/21 14:00 08/09/21 20:06 Ipratropium/Albuterol Sulfate 3 Ml Ampul.Neb IH 1 ampul TID DEMIAN Administration Lipase/Protease/Amylase 1 each 07/29/21 13:01 Lipase 10,500/Protease 25,000/Amylase 43,750 (Units) Dr Campoverde FEEDTUBE PRN PRN For Clogged Feeding Tube Arformoterol Tartrate 15 mcg 07/28/21 20:00 08/09/21 20:06 Arformoterol 15 Mcg/2 Ml Nebu IH 15 mcg Q12HRT DEMIAN Administration Bisacodyl 10 mg 08/07/21 09:50 Bisacodyl 10 Mg Rect Supp ID QDAY PRN Constip unreliev by MOM/or NPO Budesonide 0.5 mg 07/28/21 20:00 08/09/21 20:06 Budesonide 0.5 Mg/2 Ml Nebu IH 0.5 mg Q12HRT DEMIAN Administration Dextrose 50 ml 07/28/21 02:11 Dextrose 50% In Water (25gm) 50 Ml Syringe IV Q30MIN PRN Hypoglycemia Protocol Famotidine 10 mg 08/02/21 10:00 08/09/21 21:54 Famotidine 20 Mg/2 Ml Inj IV 10 mg BID DEMAIN Administration Fentanyl 50 mcg 07/29/21 10:42 08/04/21 09:05 Fentanyl 100 Mcg/2 Ml Inj IV 50 mcg Q10MIN PRN Administration ANALGESIA Hydralazine HCl 10 mg 07/30/21 14:52 08/03/21 17:31 Hydralazine 20 Mg/1 Ml Inj IV 10 mg Q6H PRN Administration SBP > 165 Hydrophilic Ointment 1 applic 07/29/21 10:42 Lip Therapy Vaseline TP Q2HR PRN Dry Lips Fentanyl Citrate 2,000 mcg in 100 mls @ 5.35 mls/hr 07/29/21 11:00 08/10/21 04:04 Fentanyl Drip Premix IV 3 mcg/kg/hr TITR DEMIAN 16.05 mls/hr Administration Protocol 1 MCG/KG/HR Midazolam HCl 100 mg/ Sodium 100 mls @ 2 mls/hr 07/29/21 11:00 08/09/21 21:55 Chloride IV 2 mg/hr TITR DEMIAN 2 mls/hr Administration Protocol 2 MG/HR Norepinephrine 4 mg in 250 mls @ 7.5 mls/hr 07/29/21 21:00 Levophed Drip 4 Mg/Ns 250 Ml IV TITR DEMIAN Protocol 2 MCG/MIN Insulin Glargine 30 units 08/05/21 22:00 08/09/21 21:54 Insulin Glargine 100 Units/Ml SUB-Q 30 units QHS DEMIAN Administration Insulin Human Lispro 0 unit 07/29/21 12:00 08/10/21 00:58 Insulin Lispro 100 Unit/Ml SUB-Q Not Given Q6HR [facility] Protocol Magnesium Hydroxide 30 ml 07/28/21 02:11 Magnesium Hydroxide (Mom) Oral Liqd Udc PO Q4H PRN Constipation Midazolam HCl 2 mg 07/29/21 10:42 08/07/21 10:10 Midazolam 2 Mg/2 Ml Inj IV 2 mg Q10MIN PRN Administration Sedation Multi-Ingred Cream/Lotion/Oil/Oint 1 applic 07/29/21 10:42 Mineral Oil/Petrolatum, White Ophth Oint 3.5 Gm OU Q4HR PRN Dry Eye(s) Quetiapine Fumarate 200 mg 08/05/21 22:00 08/09/21 21:54 Quetiapine 200 Mg Tab PO 200 mg BID DEMIAN Administration Senna/Docusate Sodium 1 tab 07/29/21 22:00 08/09/21 21:54 Sennosides/Docusate Sodium 8.6/50 Mg Tab FEEDTUBE 1 tab BID DEMIAN Administration Simple Syrup 15 ml 07/29/21 13:01 Simple Syrup 15 Ml FEEDTUBE PRN PRN Hypoglycemia Simple Syrup 30 ml 07/29/21 13:01 Simple Syrup 15 Ml FEEDTUBE PRN PRN Hypoglycemia Sodium Bicarbonate 325 mg 07/29/21 13:01 Sodium Bicarbonate 325 Mg Tab FEEDTUBE PRN PRN For Clogged Feeding Tube Sodium Chloride 10 ml 07/28/21 10:00 08/09/21 21:57 Sodium Chloride 0.9% 10 Ml Flush Syringe IV 10 ml BID DEMIAN Administration Sodium Chloride 10 ml 07/28/21 02:05 Sodium Chloride 0.9% 10 Ml Flush Syringe IV PRN PRN LINE FLUSH Nutrition/Malnutrition Assess - Dietary Evaluation Nutrition/Malnutrition Findings: Nutrition Notes Start: 07/28/21 14:44 Freq: Status: Active Protocol: Document 08/08/21 10:20 JACKIE (Rec: 08/08/21 10:27 [id number]) Nutrition Notes Initial or Follow up Reassessment Current Diagnosis COPD,Diabetes,Hypertension, Respiratory Failure Other Pertinent Diagnosis pneu Current Diet Vital AF at 50 ml/hr Labs/Tests Na 147 BUN 71 Cr 1.4 Pertinent Medications Senokot Height 5 ft Weight 107 kg Snow Body Weight (kg) 45.45 BMI 46.0 Weight Status Morbidly Obese Subjective/Other Information Per chart, pt got rectal suppository yesterday. No BM yet documented. Pt tolerating TF at goal rate. Percent of energy/protein needs met: 96%/67% Burn Absent Trauma Absent GI Symptoms Constipation,Last BM Current % PO Negligible Minimum of two criteria No #1 Nutrition Diagnosis Inadequate oral intake Diagnosis Progress(for reassessment Continues documentation) Is patient on ventilator? Yes Is Patient Ambulatory and/or Out of Bed No REE-([facility]-confined to bed) 1842.852 Kcal/Kg value to use for calculation 14 Approximate Energy Requirements Using 1498 kcal/Kg Calculation Used for Recommendations Kcal/kg Additional Notes Protein: (up to 2.5g/kg IBW) up to 134g Fluid: 1 ml/kcal or per MD Nutrition Intervention Change Diet Order: continue Nutrition Support: Vital AF 1.2 at 50 ml/hr For hypernatermia, flush 250 ml ml q4h or per MD. Once resolved, flush 100 ml q4h. Kcal 1,440 Protein (gm) 90 Fluid (mL) 973 Goal #1 Meet at least 75% of protein and energy needs via TF Anticipated Discharge Needs: Unable to determine at this time Follow-Up By: 08/11/21 Additional Comments F/u: stable TF, BM
--- NOTE | 2021-08-09 09:47 | Progress Note ---
Assessment and Plan Impression * Nonoliguric acute kidney injury secondary to prerenal azotemia --FeNa 0.13%. * Acute hypoxic respiratory failure * Hypernatremia * Pulmonary infiltrates * History of breast cancer. [place] to be metastatic with mediastinal and lung masses Recommendations * AM labs pending * Continue free H2O 200ml q4h - follow up on Na * Vent management as per ICU team * Note plans for trach/PEG * Avoid nephrotoxins * Monitor fluid status and electrolytes closely * No indication for renal replacement therapy at this time Subjective Date of service: 08/09/21 Principal diagnosis: Ac hypoxemic resp failure ; AE-COPD; H/O CA Breast; DM II; HTN Interval history: No acute events overnight. Patient remains intubated - TV 450, FiO2 30, PEEP 6 Rate 18. Objective - Vital Signs Vital signs: Vital Signs - 12hr 08/08/21 08/08/21 08/08/21 22:00 22:16 22:30 Temperature Pulse Rate 99 H 98 H 106 H Pulse Rate [ Anterior Bilateral] Pulse Rate [ From Monitor] Respiratory 16 16 15 Rate Respiratory Rate [Anterior Bilateral] Blood Pressure 111/62 105/65 105/65 O2 Sat by Pulse 99 99 99 Oximetry 08/08/21 08/08/21 08/08/21 22:46 23:00 23:16 Temperature Pulse Rate 104 H 104 H 101 H Pulse Rate [ Anterior Bilateral] Pulse Rate [ From Monitor] Respiratory 16 16 16 Rate Respiratory Rate [Anterior Bilateral] Blood Pressure 166/76 166/76 101/58 O2 Sat by Pulse 99 99 98 Oximetry 08/08/21 08/08/21 08/09/21 23:30 23:46 00:00 Temperature 99.6 F Pulse Rate 99 H 97 H 96 H Pulse Rate [ Anterior Bilateral] Pulse Rate [ 200 H From Monitor] Respiratory 16 16 15 Rate Respiratory Rate [Anterior Bilateral] Blood Pressure 101/58 94/58 111/66 O2 Sat by Pulse 99 99 100 Oximetry 08/09/21 08/09/21 08/09/21 00:16 00:30 00:46 Temperature Pulse Rate 94 H 94 H 93 H Pulse Rate [ Anterior Bilateral] Pulse Rate [ From Monitor] Respiratory 16 16 16 Rate Respiratory Rate [Anterior Bilateral] Blood Pressure 94/58 94/58 102/62 O2 Sat by Pulse 100 100 100 Oximetry 08/09/21 08/09/21 08/09/21 01:00 01:16 01:30 Temperature Pulse Rate 96 H 94 H 92 H Pulse Rate [ Anterior Bilateral] Pulse Rate [ From Monitor] Respiratory 16 16 16 Rate Respiratory Rate [Anterior Bilateral] Blood Pressure 121/70 121/70 121/70 O2 Sat by Pulse 100 100 100 Oximetry 08/09/21 08/09/21 08/09/21 01:46 02:00 02:16 Temperature Pulse Rate 91 H 91 H 89 Pulse Rate [ Anterior Bilateral] Pulse Rate [ From Monitor] Respiratory 16 16 16 Rate Respiratory Rate [Anterior Bilateral] Blood Pressure 111/60 111/60 113/62 O2 Sat by Pulse 100 100 100 Oximetry 08/09/21 08/09/21 08/09/21 02:30 02:46 03:00 Temperature Pulse Rate 90 89 90 Pulse Rate [ Anterior Bilateral] Pulse Rate [ From Monitor] Respiratory 16 16 16 Rate Respiratory Rate [Anterior Bilateral] Blood Pressure 111/60 106/59 106/59 O2 Sat by Pulse 99 100 100 Oximetry 08/09/21 08/09/21 08/09/21 03:16 03:30 03:46 Temperature Pulse Rate 89 88 87 Pulse Rate [ Anterior Bilateral] Pulse Rate [ From Monitor] Respiratory 16 16 16 Rate Respiratory Rate [Anterior Bilateral] Blood Pressure 107/64 107/64 104/61 O2 Sat by Pulse 100 100 100 Oximetry 08/09/21 08/09/21 08/09/21 04:00 04:16 04:30 Temperature 99.5 F Pulse Rate 87 85 85 Pulse Rate [ Anterior Bilateral] Pulse Rate [ 105 H From Monitor] Respiratory 16 16 16 Rate Respiratory Rate [Anterior Bilateral] Blood Pressure 104/61 105/60 105/60 O2 Sat by Pulse 100 100 100 Oximetry 08/09/21 08/09/21 08/09/21 04:46 05:00 05:16 Temperature Pulse Rate 85 84 86 Pulse Rate [ Anterior Bilateral] Pulse Rate [ From Monitor] Respiratory 16 16 16 Rate Respiratory Rate [Anterior Bilateral] Blood Pressure 105/62 105/62 98/60 O2 Sat by Pulse 100 100 100 Oximetry 08/09/21 08/09/21 08/09/21 05:25 05:30 05:46 Temperature Pulse Rate 89 88 89 Pulse Rate [ Anterior Bilateral] Pulse Rate [ From Monitor] Respiratory 16 16 Rate Respiratory Rate [Anterior Bilateral] Blood Pressure 98/60 98/60 127/63 O2 Sat by Pulse 100 100 100 Oximetry 08/09/21 08/09/21 08/09/21 06:00 06:16 06:30 Temperature Pulse Rate 87 88 85 Pulse Rate [ Anterior Bilateral] Pulse Rate [ From Monitor] Respiratory 16 16 16 Rate Respiratory Rate [Anterior Bilateral] Blood Pressure 127/63 103/57 103/57 O2 Sat by Pulse 100 100 100 Oximetry 08/09/21 08/09/21 08/09/21 06:46 07:00 07:16 Temperature 99.9 F H Pulse Rate 84 87 87 Pulse Rate [ Anterior Bilateral] Pulse Rate [ From Monitor] Respiratory 16 16 16 Rate Respiratory Rate [Anterior Bilateral] Blood Pressure 103/58 121/73 121/73 O2 Sat by Pulse 100 100 100 Oximetry 08/09/21 08/09/21 08:17 08:40 Temperature Pulse Rate 89 Pulse Rate [ 83 Anterior Bilateral] Pulse Rate [ From Monitor] Respiratory Rate Respiratory 16 Rate [Anterior Bilateral] Blood Pressure 112/62 O2 Sat by Pulse 97 Oximetry - General Appearance General appearance: well-developed, well-nourished, intubated EENT: other (ETT in place) Respiratory: Present: Other (Bilateral rhonchi) Cardiology: regular, S1S2 Gastrointestinal: no tenderness, no distended, obese Integumentary: warm and dry - Lab 08/08/21 06:00 08/08/21 06:00 Most recent lab results ABG pH 7.368 (7.320-7.450) 08/07/21 04:00 ABG O2 Saturation 95.2 (0-100) 08/07/21 04:00 Calcium 8.4 mg/dL (8.4-10.2) 08/08/21 06:00 Phosphorus 4.10 mg/dL (2.5-4.5) 08/08/21 06:00 Magnesium 2.20 mg/dL (1.7-2.3) 08/08/21 06:00 Urine Creatinine 125.6 mg/dL (0.1-20.0) H 08/01/21 Unknown Urine Sodium 12 mmol/L 08/01/21 Unknown Medications & Allergies - Medications Allergies/Adverse Reactions: Allergies No Known Allergies Allergy (Verified 12/24/18 11:45) Home Medications: Home Medications Medication Instructions Recorded Confirmed Last Taken Type traMADoL [Ultram 50 MG tab] 50 mg PO Q6HR PRN #15 tablet 01/25/18 Unknown Rx Active Medications: Generic Name Dose Route Start Last Admin Trade Name Freq PRN Reason Stop Dose Admin Acetaminophen 650 mg 07/28/21 02:11 Acetaminophen 325 Mg Tab PO Q6H PRN Pain MILD(1-3)/Fever >100.5/GARCIA Albuterol/Ipratropium 1 ampul 07/28/21 14:00 08/09/21 08:13 Ipratropium/Albuterol Sulfate 3 Ml Ampul.Neb IH 1 ampul TID DEMIAN Administration Lipase/Protease/Amylase 1 each 07/29/21 13:01 Lipase 10,500/Protease 25,000/Amylase 43,750 (Units) Dr Campoverde FEEDTUBE PRN PRN For Clogged Feeding Tube Arformoterol Tartrate 15 mcg 07/28/21 20:00 08/09/21 08:13 Arformoterol 15 Mcg/2 Ml Nebu IH 15 mcg Q12HRT DEMIAN Administration Bisacodyl 10 mg 08/07/21 09:50 Bisacodyl 10 Mg Rect Supp MI QDAY PRN Constip unreliev by MOM/or NPO Budesonide 0.5 mg 07/28/21 20:00 08/09/21 08:13 Budesonide 0.5 Mg/2 Ml Nebu IH 0.5 mg Q12HRT DEMIAN Administration Dextrose 50 ml 07/28/21 02:11 Dextrose 50% In Water (25gm) 50 Ml Syringe IV Q30MIN PRN Hypoglycemia Protocol Famotidine 10 mg 08/02/21 10:00 08/09/21 09:26 Famotidine 20 Mg/2 Ml Inj IV 10 mg BID DEMIAN Administration Fentanyl 50 mcg 07/29/21 10:42 08/04/21 09:05 Fentanyl 100 Mcg/2 Ml Inj IV 50 mcg Q10MIN PRN Administration ANALGESIA Hydralazine HCl 10 mg 07/30/21 14:52 08/03/21 17:31 Hydralazine 20 Mg/1 Ml Inj IV 10 mg Q6H PRN Administration SBP > 165 Hydrophilic Ointment 1 applic 07/29/21 10:42 Lip Therapy Vaseline TP Q2HR PRN Dry Lips Fentanyl Citrate 2,000 mcg in 100 mls @ 5.35 mls/hr 07/29/21 11:00 08/09/21 07:25 Fentanyl Drip Premix IV 3 mcg/kg/hr TITR DEMIAN 16.05 mls/hr Administration Protocol 1 MCG/KG/HR Midazolam HCl 100 mg/ Sodium 100 mls @ 2 mls/hr 07/29/21 11:00 08/08/21 04:55 Chloride IV 2 mg/hr TITR DEMIAN 2 mls/hr Administration Protocol 2 MG/HR Norepinephrine 4 mg in 250 mls @ 7.5 mls/hr 07/29/21 21:00 Levophed Drip 4 Mg/Ns 250 Ml IV TITR DEMIAN Protocol 2 MCG/MIN Insulin Glargine 30 units 08/05/21 22:00 08/08/21 22:18 Insulin Glargine 100 Units/Ml SUB-Q 30 units QHS DEMIAN Administration Insulin Human Lispro 0 unit 07/29/21 12:00 08/09/21 06:21 Insulin Lispro 100 Unit/Ml SUB-Q Not Given Q6HR [facility] Protocol Magnesium Hydroxide 30 ml 07/28/21 02:11 Magnesium Hydroxide (Mom) Oral Liqd Udc PO Q4H PRN Constipation Midazolam HCl 2 mg 07/29/21 10:42 08/07/21 10:10 Midazolam 2 Mg/2 Ml Inj IV 2 mg Q10MIN PRN Administration Sedation Multi-Ingred Cream/Lotion/Oil/Oint 1 applic 07/29/21 10:42 Mineral Oil/Petrolatum, White Ophth Oint 3.5 Gm OU Q4HR PRN Dry Eye(s) Quetiapine Fumarate 200 mg 08/05/21 22:00 08/09/21 09:26 Quetiapine 200 Mg Tab PO 200 mg BID DEMIAN Administration Senna/Docusate Sodium 1 tab 07/29/21 22:00 08/09/21 09:26 Sennosides/Docusate Sodium 8.6/50 Mg Tab FEEDTUBE 1 tab BID DEMIAN Administration Simple Syrup 15 ml 07/29/21 13:01 Simple Syrup 15 Ml FEEDTUBE PRN PRN Hypoglycemia Simple Syrup 30 ml 07/29/21 13:01 Simple Syrup 15 Ml FEEDTUBE PRN PRN Hypoglycemia Sodium Bicarbonate 325 mg 07/29/21 13:01 Sodium Bicarbonate 325 Mg Tab FEEDTUBE PRN PRN For Clogged Feeding Tube Sodium Chloride 10 ml 07/28/21 10:00 08/09/21 09:29 Sodium Chloride 0.9% 10 Ml Flush Syringe IV 10 ml BID DEMIAN Administration Sodium Chloride 10 ml 07/28/21 02:05 Sodium Chloride 0.9% 10 Ml Flush Syringe IV PRN PRN LINE FLUSH
[2021-08-09 10:24] LABS: Hematocrit 25.8 % (30.3-42.9); Hemoglobin 8.5 gm/dl (10.1-14.3); Mean Corpuscular HGB Conc 33 % (30-34); Mean Corpuscular Volume 90 fl (79-97); Platelet Count 204 K/mm3 (140-440); Red Blood Count 2.88 M/mm3 (3.65-5.03); Red Cell Distribution Width 16.5 % (13.2-15.2)
--- NOTE | 2021-08-09 10:25 | Progress Note ---
Assessment and Plan Cultures: Blood culture 07/27/2021 no growth Sputum 07/29/2021 usual respiratory leila Urine culture 08/02/2021 no growth Blood culture 08/08/2021 pending A/P: 66-year-old female past medical history metastatic breast cancer, hypertension, diabetes, COPD now with: #Acute sepsis: Remains with low-grade fever, leukocytosis improving. Etiology likely due to pneumonia +/-metastatic breast cancer +/- UTI. Sepsis has been up and down in the setting of recent CODE BLUE. #Acute hypoxic respiratory failure: Currently on the vent fio2 30%. In the setting of pneumonia and metastatic breast cancer to the lungs. Patient has a right upper lobe mass. S/p lung mass biopsy has revealed metastatic breast cancer, triple negative. #Left lower extremity DVT and started on therapeutic Lovenox. #Metastatic breast cancer to the lungs. #WYATT: Renally dose medications. Improving. Recs: -monitor off abx -Trend white count, fevers -Patient to have trach and PEG placement tomorrow Very Guarded prognosis. Consider palliative care consult MD Norma [facility] ([facility]) Office [phone] Subjective Date of service: 08/09/21 Principal diagnosis: Ac hypoxemic resp failure ; AE-COPD; H/O CA Breast; DM II; HTN Interval history: Remains intubated, FiO2 30%, PEEP of 6, no fever. Objective - Exam Narrative Exam: General appearance: Sedated intubated Eyes: anicteric sclerae, moist conjunctivae; no lid-lag; PERRLA HENT: Normocephalic, Atraumatic; normal external ears, nares open, oropharynx endotracheal tube in place Neck: supple, tracheal midline, no JVD Lungs: Bilateral rhonchi CV: RRR no murmur Abdomen: Soft, nontender, obese Extremities: no edema, no cyanosis Skin: No rash. Psych: Sedated Neuro: Sedated Elizabeth in place - Constitutional Vitals: Vital Signs Temp Pulse Resp BP Pulse Ox 99.9 F H 83 16 112/62 97 08/09/21 07:00 08/09/21 08:40 08/09/21 08:40 08/09/21 08:17 08/09/21 08:17 Temperature -Last 24 Hours Temperature 99.9 F Temperature 99.5 F Temperature 99.6 F Temperature 100.2 F Temperature 101.5 F Temperature 100.8 F - Labs CBC & Chem 7: 08/09/21 10:00 08/09/21 10:00 Labs: Abnormal lab results 08/08/21 08/08/21 08/08/21 Range/Units 11:33 17:54 23:41 WBC (4.5-11.0) K/mm3 RBC (3.65-5.03) M/mm3 Hgb (10.1-14.3) gm/dl Hct (30.3-42.9) % RDW (13.2-15.2) % POC Glucose 126 H 124 H 119 H (70-105) mg/dL 08/09/21 08/09/21 Range/Units 06:06 10:00 WBC 13.0 H (4.5-11.0) K/mm3 RBC 2.88 L (3.65-5.03) M/mm3 Hgb 8.5 L (10.1-14.3) gm/dl Hct 25.8 L (30.3-42.9) % RDW 16.5 H (13.2-15.2) % POC Glucose 127 H (70-105) mg/dL
[2021-08-09 10:47] LABS: Albumin 2.6 g/dL (3.9-5); Calcium 8.6 mg/dL (8.4-10.2)
--- NOTE | 2021-08-09 11:15 | Progress Note ---
Assessment and Plan Acute hypoxemic respiratory failure secondary Lung Mass (? Lung vs Breast CA) Acute COPD exacerbation Possible hypercapnia History of right breast cancer Leukocytosis DM II Hypertension Hyperlipidemia Tobacco use disorder - for trach and PEG today - malignancy per oncology team - continue daily SAT and SBT assessment as tolerated post trach - resume full anticoagulation for VTE post procedures once cleared by surgery - continue care as below otherwise; - continue Seroquel to spare IV sedatives - azotemia per nephrology - continue to wean supplemental oxygen for target O2 sat's > 90% acutely - VAP bundle addressed - continue lung protective strategies - continue bronchodilators (GLADIS & LABA) with pulmonary hygiene per RT - wean per pulmonary driven protocols otherwise - continue accuchecks with glycemic control per SSI (While critically ill target blood glucose of 140-180 mg/dL; avoid hypoglycemia) - sedation prn for target RASS 0 to -1 - avoid nephrotoxins, renally dose all medications - continue to avoid benzodiazepine's, reduce the possibility of delirium - complete AB's per ID rec's - prn analgesia per CPOT score - Maintenance of sleep-wake cycle, avoid delirium - enteral nutritional support at goal rate as tolerated - G.I. & VTE prophylaxis - PT/OT/ROM exercises - continue mobility protocols for pressure ulcer prophylaxis - Monitor hemodynamics closely - continue other care per attending / other consultants - discharge planning ongoing concurrently COVID SPECIFIC INTERVENTIONS - test result pending .... Re-evaluate in am & prn CONDITION: CRITICAL PROGNOSIS: GUARDED CODE STATUS: FULL CODE The high probability of a clinically significant, sudden or life-threatening deterioration of the [respiratory, cardiovascular, oncological & neurologic] system(s) required my full and direct attention, intervention and personal management. The aggregate critical care time was [36] minutes without overlap. Time includes spent on; [x] Data Review and interpretation [x] Patient assessment and monitoring of vital signs [x] Documentation [x] Medication orders and management Subjective Date of service: 08/09/21 Principal diagnosis: Ac hypoxemic resp failure ; AE-COPD; H/O CA Breast; DM II; HTN Interval history: Patient is seen today for: Acute hypoxemic respiratory failure; AE-COPD; Possible hypercapnia; H/O CA Breast; DM II; HTN Seen and examined at bedside; 24hour events reviewed; nursing and respiratory care staff consulted; no adverse overnight events reported to me; resting in bed; remains on MVS; for trach and PEG tentatively tomorrow; on full MVS; no emesis or overt aspiration; afebrile Objective Vital Signs - 12hr 08/08/21 08/08/21 08/08/21 23:16 23:30 23:46 Temperature Pulse Rate 101 H 99 H 97 H Pulse Rate [ Anterior Bilateral] Pulse Rate [ From Monitor] Respiratory 16 16 16 Rate Respiratory Rate [Anterior Bilateral] Blood Pressure 101/58 101/58 94/58 O2 Sat by Pulse 98 99 99 Oximetry 08/09/21 08/09/21 08/09/21 00:00 00:16 00:30 Temperature 99.6 F Pulse Rate 96 H 94 H 94 H Pulse Rate [ Anterior Bilateral] Pulse Rate [ 200 H From Monitor] Respiratory 15 16 16 Rate Respiratory Rate [Anterior Bilateral] Blood Pressure 111/66 94/58 94/58 O2 Sat by Pulse 100 100 100 Oximetry 08/09/21 08/09/21 08/09/21 00:46 01:00 01:16 Temperature Pulse Rate 93 H 96 H 94 H Pulse Rate [ Anterior Bilateral] Pulse Rate [ From Monitor] Respiratory 16 16 16 Rate Respiratory Rate [Anterior Bilateral] Blood Pressure 102/62 121/70 121/70 O2 Sat by Pulse 100 100 100 Oximetry 08/09/21 08/09/21 08/09/21 01:30 01:46 02:00 Temperature Pulse Rate 92 H 91 H 91 H Pulse Rate [ Anterior Bilateral] Pulse Rate [ From Monitor] Respiratory 16 16 16 Rate Respiratory Rate [Anterior Bilateral] Blood Pressure 121/70 111/60 111/60 O2 Sat by Pulse 100 100 100 Oximetry 08/09/21 08/09/21 08/09/21 02:16 02:30 02:46 Temperature Pulse Rate 89 90 89 Pulse Rate [ Anterior Bilateral] Pulse Rate [ From Monitor] Respiratory 16 16 16 Rate Respiratory Rate [Anterior Bilateral] Blood Pressure 113/62 111/60 106/59 O2 Sat by Pulse 100 99 100 Oximetry 08/09/21 08/09/21 08/09/21 03:00 03:16 03:30 Temperature Pulse Rate 90 89 88 Pulse Rate [ Anterior Bilateral] Pulse Rate [ From Monitor] Respiratory 16 16 16 Rate Respiratory Rate [Anterior Bilateral] Blood Pressure 106/59 107/64 107/64 O2 Sat by Pulse 100 100 100 Oximetry 08/09/21 08/09/2108/09/21 03:46 04:00 04:16 Temperature 99.5 F Pulse Rate 87 87 85 Pulse Rate [ Anterior Bilateral] Pulse Rate [ 105 H From Monitor] Respiratory 16 16 16 Rate Respiratory Rate [Anterior Bilateral] Blood Pressure 104/61 104/61 105/60 O2 Sat by Pulse 100 100 100 Oximetry 08/09/21 08/09/21 08/09/21 04:30 04:46 05:00 Temperature Pulse Rate 85 85 84 Pulse Rate [ Anterior Bilateral] Pulse Rate [ From Monitor] Respiratory 16 16 16 Rate Respiratory Rate [Anterior Bilateral] Blood Pressure 105/60 105/62 105/62 O2 Sat by Pulse 100 100 100 Oximetry 08/09/21 08/09/21 08/09/21 05:16 05:25 05:30 Temperature Pulse Rate 86 89 88 Pulse Rate [ Anterior Bilateral] Pulse Rate [ From Monitor] Respiratory 16 16 Rate Respiratory Rate [Anterior Bilateral] Blood Pressure 98/60 98/60 98/60 O2 Sat by Pulse 100 100 100 Oximetry 08/09/21 08/09/21 08/09/21 05:46 06:00 06:16 Temperature Pulse Rate 89 87 88 Pulse Rate [ Anterior Bilateral] Pulse Rate [ From Monitor] Respiratory 16 16 16 Rate Respiratory Rate [Anterior Bilateral] Blood Pressure 127/63 127/63 103/57 O2 Sat by Pulse 100 100 100 Oximetry 08/09/21 08/09/21 08/09/21 06:30 06:46 07:00 Temperature 99.9 F H Pulse Rate 85 84 87 Pulse Rate [ Anterior Bilateral] Pulse Rate [ From Monitor] Respiratory 16 16 16 Rate Respiratory Rate [Anterior Bilateral] Blood Pressure 103/57 103/58 121/73 O2 Sat by Pulse 100 100 100 Oximetry 08/09/21 08/09/21 08/09/21 07:16 08:17 08:40 Temperature Pulse Rate 87 89 Pulse Rate [ 83 Anterior Bilateral] Pulse Rate [ From Monitor] Respiratory 16 Rate Respiratory 16 Rate [Anterior Bilateral] Blood Pressure 121/73 112/62 O2 Sat by Pulse 100 97 Oximetry Constitutional: no acute distress, other (eldely obese female without increased respiratory effort at rest on MVS) Eyes: non-icteric ENT: oropharynx moist, other (ETT 24 cm [place]) Neck: supple, no lymphadenopathy, no JVD Effort: mildly labored Ascultation: Bilateral: wheezes (central), rhonchi Percussion: Bilateral: not dull Cardiovascular: regular rate and rhythm Gastrointestinal: normoactive bowel sounds, soft, non-tender, non-distended Integumentary: normal Extremities: no cyanosis, no edema, pulses normal, no ischemia or petechiae Neurologic: normal mental status, non-focal exam, pupils equal and round, CN II- XII normal Psychiatric: mood appropriate, affect normal CBC and BMP: 08/10/21 05:20 08/10/21 05:20 ABG, PT/INR, D-dimer: ABG ABG pH 7.368 (7.320-7.450) 08/07/21 04:00 POC ABG pCO2 42.0 mmHg (32.0-48.0) 08/07/21 04:00 POC ABG pO2 80.1 mmHg (83-108) L 08/07/21 04:00 POC ABG HCO3 23.6 08/07/21 04:00 ABG O2 Saturation 95.2 (0-100) 08/07/21 04:00 PT/INR, D-dimer PT 14.0 Sec. (12.2-14.9) 08/03/21 08:30 INR 1.03 (0.87-1.13) 08/03/21 08:30 D-Dimer 852.47 ng/mlDDU (0-234) H 07/29/21 07:17 Abnormal lab findings: Abnormal Labs 07/27/21 07/27/21 07/27/21 22:57 22:57 22:57 WBC 20.3 H RBC Hgb Hct RDW Lymph % (Auto) Lymph # (Auto) [place] # (Auto) Seg Neutrophils % Seg Neuts % (Manual) 89.0 H Lymphocytes % (Manual) 9.0 L Nucleated RBC % Seg Neutrophils # Seg Neutrophils # Man 18.1 H Lymphocytes # (Manual) Monocytes # (Manual) D-Dimer ABG pH POC ABG pCO2 POC ABG pO2 ABG Hemoglobin ABG Oxyhemoglobin ABG Sodium ABG Potassium ABG Chloride ABG Glucose Carboxyhemoglobin Sodium Potassium 3.5 L Chloride 96.9 L Carbon Dioxide 20 L BUN 19 H Creatinine Glucose 204 H POC Glucose Lactic Acid 7.20 H* Calcium Magnesium AST 98 H ALT 90 H Total Protein Albumin Arterial Blood Glucose Arterial Blood Ionized Calcium Urine WBC (Auto) Urine Creatinine 07/28/21 07/28/21 07/28/21 01:31 07:49 10:00 WBC RBC Hgb Hct RDW Lymph % (Auto) Lymph # (Auto) [place] # (Auto) Seg Neutrophils % Seg Neuts % (Manual) Lymphocytes % (Manual) Nucleated RBC % Seg Neutrophils # Seg Neutrophils # Man Lymphocytes # (Manual) Monocytes # (Manual) D-Dimer ABG pH POC ABG pCO2 POC ABG pO2 ABG Hemoglobin ABG Oxyhemoglobin ABG Sodium ABG Potassium ABG Chloride ABG Glucose Carboxyhemoglobin Sodium Potassium Chloride Carbon Dioxide BUN Creatinine Glucose POC Glucose 194 H Lactic Acid 6.90 H* 6.70 H* Calcium Magnesium AST ALT Total Protein Albumin Arterial Blood Glucose Arterial Blood Ionized Calcium Urine WBC (Auto) Urine Creatinine 07/28/21 07/28/21 07/28/21 12:41 13:21 16:21 WBC RBC Hgb Hct RDW Lymph % (Auto) Lymph # (Auto) [place] # (Auto) Seg Neutrophils % Seg Neuts % (Manual) Lymphocytes % (Manual) Nucleated RBC % Seg Neutrophils # Seg Neutrophils # Man Lymphocytes # (Manual) Monocytes # (Manual) D-Dimer ABG pH POC ABG pCO2 POC ABG pO2 ABG Hemoglobin ABG Oxyhemoglobin ABG Sodium ABG Potassium ABG Chloride ABG Glucose Carboxyhemoglobin Sodium Potassium Chloride Carbon Dioxide BUN Creatinine Glucose POC Glucose 159 H 155 H Lactic Acid 6.10 H* Calcium Magnesium AST ALT Total Protein Albumin Arterial Blood Glucose Arterial Blood Ionized Calcium Urine WBC (Auto) Urine Creatinine 07/28/21 07/29/21 07/29/21 22:03 04:44 04:44 WBC 17.0 H RBC Hgb Hct RDW Lymph % (Auto) Lymph # (Auto) [place] # (Auto) Seg Neutrophils % Seg Neuts % (Manual) 82.0 H Lymphocytes % (Manual) 11.0 L Nucleated RBC % Seg Neutrophils # Seg Neutrophils # Man 13.9 H Lymphocytes # (Manual) Monocytes # (Manual) 1.0 H D-Dimer ABG pH POC ABG pCO2 POC ABG pO2 ABG Hemoglobin ABG Oxyhemoglobin ABG Sodium ABG Potassium ABG Chloride ABG Glucose Carboxyhemoglobin Sodium Potassium Chloride Carbon Dioxide BUN 23 H Creatinine Glucose 196 H POC Glucose 187 H Lactic Acid Calcium Magnesium AST ALT Total Protein Albumin Arterial Blood Glucose Arterial Blood Ionized Calcium Urine WBC (Auto) Urine Creatinine 07/29/21 07/29/21 07/29/21 06:56 07:17 07:17 WBC 26.1 H RBC Hgb Hct 43.3 H RDW 16.0 H Lymph % (Auto) Lymph # (Auto) [place] # (Auto) Seg Neutrophils % Seg Neuts % (Manual) 80.0 H Lymphocytes % (Manual) Nucleated RBC % Seg Neutrophils # Seg Neutrophils # Man 20.9 H Lymphocytes # (Manual) Monocytes # (Manual) D-Dimer ABG pH POC ABG pCO2 POC ABG pO2 ABG Hemoglobin ABG Oxyhemoglobin ABG Sodium ABG Potassium ABG Chloride ABG Glucose Carboxyhemoglobin Sodium Potassium Chloride Carbon Dioxide 20 L D BUN 23 H Creatinine Glucose 308 H POC Glucose 165 H Lactic Acid Calcium Magnesium AST ALT Total Protein Albumin Arterial Blood Glucose Arterial Blood Ionized Calcium Urine WBC (Auto) Urine Creatinine 07/29/21 07/29/21 07/29/21 07:17 09:16 10:30 WBC RBC Hgb Hct RDW Lymph % (Auto) Lymph # (Auto) [place] # (Auto) Seg Neutrophils % Seg Neuts % (Manual) Lymphocytes % (Manual) Nucleated RBC % Seg Neutrophils # Seg Neutrophils # Man Lymphocytes # (Manual) Monocytes # (Manual) D-Dimer 852.47 H ABG pH 7.236 L POC ABG pCO2 56.0 H POC ABG pO2 266.4 H ABG Hemoglobin ABG Oxyhemoglobin 99.1 H ABG Sodium 132.3 L ABG Potassium 4.9 H ABG Chloride ABG Glucose 202 H Carboxyhemoglobin 0.2 L Sodium Potassium Chloride Carbon Dioxide BUN Creatinine Glucose POC Glucose 271 H Lactic Acid Calcium Magnesium AST ALT Total Protein Albumin Arterial Blood Glucose 202 H Arterial Blood Ionized Calcium Urine WBC (Auto) Urine Creatinine 07/29/21 07/29/21 07/30/21 17:54 23:32 05:08 WBC RBC Hgb Hct RDW Lymph % (Auto) Lymph # (Auto) [place] # (Auto) Seg Neutrophils % Seg Neuts % (Manual) Lymphocytes % (Manual) Nucleated RBC % Seg Neutrophils # Seg Neutrophils # Man Lymphocytes # (Manual) Monocytes # (Manual) D-Dimer ABG pH POC ABG pCO2 POC ABG pO2 ABG Hemoglobin ABG Oxyhemoglobin ABG Sodium ABG Potassium ABG Chloride ABG Glucose Carboxyhemoglobin Sodium Potassium Chloride Carbon Dioxide BUN Creatinine Glucose POC Glucose 168 H 205 H 214 H Lactic Acid Calcium Magnesium AST ALT Total Protein Albumin Arterial Blood Glucose Arterial Blood Ionized Calcium Urine WBC (Auto) Urine Creatinine 07/30/21 07/30/21 07/30/21 06:01 11:32 17:34 WBC RBC Hgb Hct RDW Lymph % (Auto) Lymph # (Auto) [place] # (Auto) Seg Neutrophils % Seg Neuts % (Manual) Lymphocytes % (Manual) Nucleated RBC % Seg Neutrophils # Seg Neutrophils # Man Lymphocytes # (Manual) Monocytes # (Manual) D-Dimer ABG pH 7.480 H POC ABG pCO2 23.6 L POC ABG pO2 280.0 H ABG Hemoglobin ABG Oxyhemoglobin 99.3 H ABG Sodium 133.7 L ABG Potassium ABG Chloride ABG Glucose 232 H Carboxyhemoglobin 0 L Sodium Potassium Chloride Carbon Dioxide BUN Creatinine Glucose POC Glucose 207 H 239 H Lactic Acid Calcium Magnesium AST ALT Total Protein Albumin Arterial Blood Glucose 232 H Arterial Blood Ionized Calcium 4.4 L Urine WBC (Auto) Urine Creatinine 07/30/21 07/31/21 07/31/21 23:39 03:34 04:45 WBC 15.0 H RBC Hgb Hct RDW 15.5 H Lymph % (Auto) Lymph # (Auto) [place] # (Auto) Seg Neutrophils % Seg Neuts % (Manual) 89.0 H Lymphocytes % (Manual) 7.0 L Nucleated RBC % Seg Neutrophils # Seg Neutrophils # Man 13.4 H Lymphocytes # (Manual) 1.1 L Monocytes # (Manual) D-Dimer ABG pH 7.481 H POC ABG pCO2 31.8 L POC ABG pO2 ABG Hemoglobin ABG Oxyhemoglobin ABG Sodium 135.2 L ABG Potassium 3.3 L ABG Chloride ABG Glucose 188 H Carboxyhemoglobin 0.1 L Sodium Potassium Chloride Carbon Dioxide BUN Creatinine Glucose POC Glucose 176 H Lactic Acid Calcium Magnesium AST ALT Total Protein Albumin Arterial Blood Glucose 188 H Arterial Blood Ionized Calcium 4.4 L Urine WBC (Auto) Urine Creatinine 07/31/21 07/31/21 07/31/21 04:45 04:45 11:28 WBC RBC Hgb Hct RDW Lymph % (Auto) Lymph # (Auto) [place] # (Auto) Seg Neutrophils % Seg Neuts % (Manual) Lymphocytes % (Manual) Nucleated RBC % Seg Neutrophils # Seg Neutrophils # Man Lymphocytes # (Manual) Monocytes # (Manual) D-Dimer ABG pH POC ABG pCO2 POC ABG pO2 ABG Hemoglobin ABG Oxyhemoglobin ABG Sodium ABG Potassium ABG Chloride ABG Glucose Carboxyhemoglobin Sodium Potassium 3.4 L Chloride Carbon Dioxide BUN 61 H Creatinine 2.6 H D Glucose 176 H POC Glucose 195 H 245 H Lactic Acid Calcium Magnesium AST ALT Total Protein Albumin Arterial Blood Glucose Arterial Blood Ionized Calcium Urine WBC (Auto) Urine Creatinine 07/31/21 07/31/21 08/01/21 17:32 23:58 01:00 WBC RBC Hgb Hct RDW Lymph % (Auto) Lymph # (Auto) [place] # (Auto) Seg Neutrophils % Seg Neuts % (Manual) Lymphocytes % (Manual) Nucleated RBC % Seg Neutrophils # Seg Neutrophils # Man Lymphocytes # (Manual) Monocytes # (Manual) D-Dimer ABG pH POC ABG pCO2 POC ABG pO2 ABG Hemoglobin ABG Oxyhemoglobin ABG Sodium ABG Potassium ABG Chloride ABG Glucose 284 H Carboxyhemoglobin 0.3 L Sodium Potassium Chloride Carbon Dioxide BUN Creatinine Glucose POC Glucose 251 H 294 H Lactic Acid Calcium Magnesium AST ALT Total Protein Albumin Arterial Blood Glucose 284 H Arterial Blood Ionized Calcium Urine WBC (Auto) Urine Creatinine 08/01/21 08/01/21 08/01/21 05:50 05:50 06:11 WBC 16.2 H RBC Hgb Hct RDW 15.5 H Lymph % (Auto) Lymph # (Auto) [place] # (Auto) Seg Neutrophils % Seg Neuts % (Manual) 93.0 H Lymphocytes % (Manual) 2.0 L Nucleated RBC % 3.0 H Seg Neutrophils # Seg Neutrophils # Man 15.1 H Lymphocytes # (Manual) 0.3 L Monocytes # (Manual) D-Dimer ABG pH POC ABG pCO2 POC ABG pO2 ABG Hemoglobin ABG Oxyhemoglobin ABG Sodium ABG Potassium ABG Chloride ABG Glucose Carboxyhemoglobin Sodium Potassium Chloride Carbon Dioxide BUN 64 H Creatinine 1.9 H Glucose 277 H POC Glucose 256 H Lactic Acid Calcium Magnesium AST ALT Total Protein Albumin Arterial Blood Glucose Arterial Blood Ionized Calcium Urine WBC (Auto) Urine Creatinine 08/01/21 08/01/21 08/01/21 11:39 17:25 23:53 WBC RBC Hgb Hct RDW Lymph % (Auto) Lymph # (Auto) [place] # (Auto) Seg Neutrophils % Seg Neuts % (Manual) Lymphocytes % (Manual) Nucleated RBC % Seg Neutrophils # Seg Neutrophils # Man Lymphocytes # (Manual) Monocytes # (Manual) D-Dimer ABG pH POC ABG pCO2 POC ABG pO2 ABG Hemoglobin ABG Oxyhemoglobin ABG Sodium ABG Potassium ABG Chloride ABG Glucose Carboxyhemoglobin Sodium Potassium Chloride Carbon Dioxide BUN Creatinine Glucose POC Glucose 289 H 275 H 327 H Lactic Acid Calcium Magnesium AST ALT Total Protein Albumin Arterial Blood Glucose Arterial Blood Ionized Calcium Urine WBC (Auto) Urine Creatinine 08/01/21 08/02/21 08/02/21 Unknown 04:00 12:03 WBC RBC Hgb Hct RDW Lymph % (Auto) Lymph # (Auto) [place] # (Auto) Seg Neutrophils % Seg Neuts % (Manual) Lymphocytes % (Manual) Nucleated RBC % Seg Neutrophils # Seg Neutrophils # Man Lymphocytes # (Manual) Monocytes # (Manual) D-Dimer ABG pH POC ABG pCO2 POC ABG pO2 ABG Hemoglobin ABG Oxyhemoglobin ABG Sodium ABG Potassium ABG Chloride ABG Glucose 325 H Carboxyhemoglobin 0.4 L Sodium Potassium Chloride Carbon Dioxide BUN Creatinine Glucose POC Glucose 209 H Lactic Acid Calcium Magnesium AST ALT Total Protein Albumin Arterial Blood Glucose 325 H Arterial Blood Ionized Calcium Urine WBC (Auto) Urine Creatinine 125.6 H 08/02/21 08/02/21 08/02/21 15:30 17:03 23:17 WBC RBC Hgb Hct RDW Lymph % (Auto) Lymph # (Auto) [place] # (Auto) Seg Neutrophils % Seg Neuts % (Manual) Lymphocytes % (Manual) Nucleated RBC % Seg Neutrophils # Seg Neutrophils # Man Lymphocytes # (Manual) Monocytes # (Manual) D-Dimer ABG pH POC ABG pCO2 POC ABG pO2 ABG Hemoglobin ABG Oxyhemoglobin ABG Sodium ABG Potassium ABG Chloride ABG Glucose Carboxyhemoglobin Sodium Potassium Chloride Carbon Dioxide BUN Creatinine Glucose POC Glucose 210 H 265 H Lactic Acid Calcium Magnesium AST ALT Total Protein Albumin Arterial Blood Glucose Arterial Blood Ionized Calcium Urine WBC (Auto) 47.0 H Urine Creatinine 08/02/21 08/02/21 08/03/21 Unknown Unknown 04:17 WBC 14.1 H RBC Hgb Hct RDW 16.3 H Lymph % (Auto) 5.1 L Lymph # (Auto) 0.7 L [place] # (Auto) 0.9 H Seg Neutrophils % 88.7 H Seg Neuts % (Manual) Lymphocytes % (Manual) Nucleated RBC % Seg Neutrophils # 12.5 H Seg Neutrophils # Man Lymphocytes # (Manual) Monocytes # (Manual) D-Dimer ABG pH POC ABG pCO2 POC ABG pO2 ABG Hemoglobin ABG Oxyhemoglobin ABG Sodium ABG Potassium ABG Chloride ABG Glucose Carboxyhemoglobin Sodium Potassium Chloride Carbon Dioxide BUN 72 H 72 H Creatinine 1.8 H 1.6 H Glucose 307 H 263 H POC Glucose Lactic Acid Calcium Magnesium AST ALT Total Protein Albumin Arterial Blood Glucose Arterial Blood Ionized Calcium Urine WBC (Auto) Urine Creatinine 08/03/21 08/03/21 08/03/21 04:17 05:30 08:30 WBC 13.9 H RBC Hgb Hct RDW 16.0 H Lymph % (Auto) Lymph # (Auto) [place] # (Auto) Seg Neutrophils % Seg Neuts % (Manual) Lymphocytes % (Manual) Nucleated RBC % Seg Neutrophils # Seg Neutrophils # Man Lymphocytes # (Manual) Monocytes # (Manual) D-Dimer ABG pH POC ABG pCO2 POC ABG pO2 ABG Hemoglobin ABG Oxyhemoglobin ABG Sodium ABG Potassium ABG Chloride ABG Glucose Carboxyhemoglobin Sodium Potassium Chloride Carbon Dioxide BUN Creatinine Glucose POC Glucose 280 H Lactic Acid Calcium Magnesium 3.00 H AST ALT Total Protein Albumin Arterial Blood Glucose Arterial Blood Ionized Calcium Urine WBC (Auto) Urine Creatinine 08/03/21 08/03/21 08/03/21 12:14 13:39 15:11 WBC RBC Hgb Hct RDW Lymph % (Auto) Lymph # (Auto) [place] # (Auto) Seg Neutrophils % Seg Neuts % (Manual) Lymphocytes % (Manual) Nucleated RBC % Seg Neutrophils # Seg Neutrophils # Man Lymphocytes # (Manual) Monocytes # (Manual) D-Dimer ABG pH POC ABG pCO2 POC ABG pO2 ABG Hemoglobin ABG Oxyhemoglobin ABG Sodium ABG Potassium ABG Chloride ABG Glucose 306 H Carboxyhemoglobin 0.3 L Sodium Potassium Chloride Carbon Dioxide BUN Creatinine Glucose POC Glucose 287 H Lactic Acid 2.10 H* Calcium Magnesium AST ALT Total Protein Albumin Arterial Blood Glucose 306 H Arterial Blood Ionized Calcium Urine WBC (Auto) Urine Creatinine 08/03/21 08/03/21 08/04/21 16:52 23:08 04:00 WBC RBC Hgb Hct RDW Lymph % (Auto) Lymph # (Auto) [place] # (Auto) Seg Neutrophils % Seg Neuts % (Manual) Lymphocytes % (Manual) Nucleated RBC % Seg Neutrophils # Seg Neutrophils # Man Lymphocytes # (Manual) Monocytes # (Manual) D-Dimer ABG pH POC ABG pCO2 54.3 H POC ABG pO2 82.2 L ABG Hemoglobin ABG Oxyhemoglobin ABG Sodium 145.1 H ABG Potassium 5.0 H ABG Chloride ABG Glucose 316 H Carboxyhemoglobin 0.3 L Sodium Potassium Chloride Carbon Dioxide BUN Creatinine Glucose POC Glucose 282 H 289 H Lactic Acid Calcium Magnesium AST ALT Total Protein Albumin Arterial Blood Glucose 316 H Arterial Blood Ionized Calcium Urine WBC (Auto) Urine Creatinine 08/04/21 08/04/21 08/04/21 04:38 04:38 05:19 WBC 17.7 H RBC Hgb Hct RDW 16.5 H Lymph % (Auto) Lymph # (Auto) [place] # (Auto) Seg Neutrophils % Seg Neuts % (Manual) Lymphocytes % (Manual) Nucleated RBC % Seg Neutrophils # Seg Neutrophils # Man Lymphocytes # (Manual) Monocytes # (Manual) D-Dimer ABG pH POC ABG pCO2 POC ABG pO2 ABG Hemoglobin ABG Oxyhemoglobin ABG Sodium ABG Potassium ABG Chloride ABG Glucose Carboxyhemoglobin Sodium Potassium Chloride 108.3 H Carbon Dioxide BUN 76 H Creatinine 1.4 H Glucose 310 H POC Glucose 268 H Lactic Acid Calcium Magnesium 2.70 H AST ALT Total Protein Albumin Arterial Blood Glucose Arterial Blood Ionized Calcium Urine WBC (Auto) Urine Creatinine 08/04/21 08/04/21 08/04/21 11:48 16:41 23:49 WBC RBC Hgb Hct RDW Lymph % (Auto) Lymph # (Auto) [place] # (Auto) Seg Neutrophils % Seg Neuts % (Manual) Lymphocytes % (Manual) Nucleated RBC % Seg Neutrophils # Seg Neutrophils # Man Lymphocytes # (Manual) Monocytes # (Manual) D-Dimer ABG pH POC ABG pCO2 POC ABG pO2 ABG Hemoglobin ABG Oxyhemoglobin ABG Sodium ABG Potassium ABG Chloride ABG Glucose Carboxyhemoglobin Sodium Potassium Chloride Carbon Dioxide BUN Creatinine Glucose POC Glucose 197 H 208 H 209 H Lactic Acid Calcium Magnesium AST ALT Total Protein Albumin Arterial Blood Glucose Arterial Blood Ionized Calcium Urine WBC (Auto) Urine Creatinine 08/05/21 08/05/21 08/05/21 04:00 04:50 04:50 WBC 19.0 H RBC Hgb Hct RDW 17.0 H Lymph % (Auto) Lymph # (Auto) [place] # (Auto) Seg Neutrophils % Seg Neuts % (Manual) 75.0 H Lymphocytes % (Manual) 2.0 L Nucleated RBC % Seg Neutrophils # Seg Neutrophils # Man 14.3 H Lymphocytes # (Manual) 0.4 L Monocytes # (Manual) 1.0 H D-Dimer ABG pH 7.314 L POC ABG pCO2 48.9 H POC ABG pO2 ABG Hemoglobin ABG Oxyhemoglobin ABG Sodium ABG Potassium 5.0 H ABG Chloride 109.0 H ABG Glucose 234 H Carboxyhemoglobin 0.4 L Sodium Potassium 5.2 H Chloride 110.0 H Carbon Dioxide BUN 90 H Creatinine 1.8 H Glucose 235 H POC Glucose Lactic Acid Calcium Magnesium 2.60 H AST ALT Total Protein Albumin Arterial Blood Glucose 234 H Arterial Blood Ionized Calcium Urine WBC (Auto) Urine Creatinine 08/05/21 08/05/21 08/05/21 06:05 12:02 17:08 WBC RBC Hgb Hct RDW Lymph % (Auto) Lymph # (Auto) [place] # (Auto) Seg Neutrophils % Seg Neuts % (Manual) Lymphocytes % (Manual) Nucleated RBC % Seg Neutrophils # Seg Neutrophils # Man Lymphocytes # (Manual) Monocytes # (Manual) D-Dimer ABG pH POC ABG pCO2 POC ABG pO2 ABG Hemoglobin ABG Oxyhemoglobin ABG Sodium ABG Potassium ABG Chloride ABG Glucose Carboxyhemoglobin Sodium Potassium Chloride Carbon Dioxide BUN Creatinine Glucose POC Glucose 225 H 193 H 263 H Lactic Acid Calcium Magnesium AST ALT Total Protein Albumin Arterial Blood Glucose Arterial Blood Ionized Calcium Urine WBC (Auto) Urine Creatinine 08/05/21 08/06/21 08/06/21 23:34 05:00 05:00 WBC 16.8 H RBC 3.64 L Hgb Hct RDW 16.6 H Lymph % (Auto) Lymph # (Auto) [place] # (Auto) Seg Neutrophils % Seg Neuts % (Manual) Lymphocytes % (Manual) Nucleated RBC % Seg Neutrophils # Seg Neutrophils # Man Lymphocytes # (Manual) Monocytes # (Manual) D-Dimer ABG pH POC ABG pCO2 POC ABG pO2 ABG Hemoglobin ABG Oxyhemoglobin ABG Sodium ABG Potassium ABG Chloride ABG Glucose Carboxyhemoglobin Sodium Potassium Chloride 109.3 H Carbon Dioxide BUN 89 H Creatinine 1.6 H Glucose 197 H POC Glucose 224 H Lactic Acid Calcium 8.2 L Magnesium AST ALT Total Protein Albumin Arterial Blood Glucose Arterial Blood Ionized Calcium Urine WBC (Auto) Urine Creatinine 08/06/21 08/06/21 08/06/21 05:26 11:38 16:30 WBC RBC Hgb Hct RDW Lymph % (Auto) Lymph # (Auto) [place] # (Auto) Seg Neutrophils % Seg Neuts % (Manual) Lymphocytes % (Manual) Nucleated RBC % Seg Neutrophils # Seg Neutrophils # Man Lymphocytes # (Manual) Monocytes # (Manual) D-Dimer ABG pH POC ABG pCO2 POC ABG pO2 ABG Hemoglobin ABG Oxyhemoglobin ABG Sodium ABG Potassium ABG Chloride ABG Glucose Carboxyhemoglobin Sodium Potassium Chloride Carbon Dioxide BUN Creatinine Glucose POC Glucose 168 H 160 H 135 H Lactic Acid Calcium Magnesium AST ALT Total Protein Albumin Arterial Blood Glucose Arterial Blood Ionized Calcium Urine WBC (Auto) Urine Creatinine 08/06/21 08/07/21 08/07/21 23:08 04:00 04:00 WBC 13.6 H RBC 3.30 L Hgb 9.5 L Hct 29.2 L RDW 16.7 H Lymph % (Auto) Lymph # (Auto) [place] # (Auto) Seg Neutrophils % Seg Neuts % (Manual) Lymphocytes % (Manual) Nucleated RBC % Seg Neutrophils # Seg Neutrophils # Man Lymphocytes # (Manual) Monocytes # (Manual) D-Dimer ABG pH POC ABG pCO2 POC ABG pO2 ABG Hemoglobin ABG Oxyhemoglobin ABG Sodium ABG Potassium ABG Chloride ABG Glucose Carboxyhemoglobin Sodium 146 H Potassium Chloride 111.4 H Carbon Dioxide BUN 78 H Creatinine 1.5 H Glucose 143 H POC Glucose 125 H Lactic Acid Calcium 8.2 L Magnesium AST ALT Total Protein Albumin Arterial Blood Glucose Arterial Blood Ionized Calcium Urine WBC (Auto) Urine Creatinine 08/07/21 08/07/21 08/07/21 04:00 05:16 12:12 WBC RBC Hgb Hct RDW Lymph % (Auto) Lymph # (Auto) [place] # (Auto) Seg Neutrophils % Seg Neuts % (Manual) Lymphocytes % (Manual) Nucleated RBC % Seg Neutrophils # Seg Neutrophils # Man Lymphocytes # (Manual) Monocytes # (Manual) D-Dimer ABG pH POC ABG pCO2 POC ABG pO2 80.1 L ABG Hemoglobin 9.8 L ABG Oxyhemoglobin ABG Sodium ABG Potassium ABG Chloride 111.0 H ABG Glucose 157 H Carboxyhemoglobin 0.3 L Sodium Potassium Chloride Carbon Dioxide BUN Creatinine Glucose POC Glucose 144 H 125 H Lactic Acid Calcium Magnesium AST ALT Total Protein Albumin Arterial Blood Glucose 157 H Arterial Blood Ionized Calcium 4.5 L Urine WBC (Auto) Urine Creatinine 08/07/21 08/08/21 08/08/21 23:20 04:47 06:00 WBC 13.8 H RBC 3.19 L Hgb 9.3 L Hct 28.4 L RDW 16.4 H Lymph % (Auto) Lymph # (Auto) [place] # (Auto) Seg Neutrophils % Seg Neuts % (Manual) Lymphocytes % (Manual) Nucleated RBC % Seg Neutrophils # Seg Neutrophils # Man Lymphocytes # (Manual) Monocytes # (Manual) D-Dimer ABG pH POC ABG pCO2 POC ABG pO2 ABG Hemoglobin ABG Oxyhemoglobin ABG Sodium ABG Potassium ABG Chloride ABG Glucose Carboxyhemoglobin Sodium Potassium Chloride Carbon Dioxide BUN Creatinine Glucose POC Glucose 118 H 130 H Lactic Acid Calcium Magnesium AST ALT Total Protein Albumin Arterial Blood Glucose Arterial Blood Ionized Calcium Urine WBC (Auto) Urine Creatinine 08/08/21 08/08/21 08/08/21 06:00 11:33 17:54 WBC RBC Hgb Hct RDW Lymph % (Auto) Lymph # (Auto) [place] # (Auto) Seg Neutrophils % Seg Neuts % (Manual) Lymphocytes % (Manual) Nucleated RBC % Seg Neutrophils # Seg Neutrophils # Man Lymphocytes # (Manual) Monocytes # (Manual) D-Dimer ABG pH POC ABG pCO2 POC ABG pO2 ABG Hemoglobin ABG Oxyhemoglobin ABG Sodium ABG Potassium ABG Chloride ABG Glucose Carboxyhemoglobin Sodium 147 H Potassium Chloride 112.4 H Carbon Dioxide BUN 71 H Creatinine 1.4 H Glucose 124 H POC Glucose 126 H 124 H Lactic Acid Calcium Magnesium AST ALT Total Protein Albumin Arterial Blood Glucose Arterial Blood Ionized Calcium Urine WBC (Auto) Urine Creatinine 08/08/21 08/09/21 08/09/21 23:41 06:06 10:00 WBC RBC Hgb Hct RDW Lymph % (Auto) Lymph # (Auto) [place] # (Auto) Seg Neutrophils % Seg Neuts % (Manual) Lymphocytes % (Manual) Nucleated RBC % Seg Neutrophils # Seg Neutrophils # Man Lymphocytes # (Manual) Monocytes # (Manual) D-Dimer ABG pH POC ABG pCO2 POC ABG pO2 ABG Hemoglobin ABG Oxyhemoglobin ABG Sodium ABG Potassium ABG Chloride ABG Glucose Carboxyhemoglobin Sodium 146 H Potassium Chloride 111.3 H Carbon Dioxide BUN 72 H Creatinine 1.5 H Glucose 119 H POC Glucose 119 H 127 H Lactic Acid Calcium Magnesium AST ALT 69 H Total Protein 5.2 L Albumin 2.6 L Arterial Blood Glucose Arterial Blood Ionized Calcium Urine WBC (Auto) Urine Creatinine 08/09/21 10:00 WBC 13.0 H RBC 2.88 L Hgb 8.5 L Hct 25.8 L RDW 16.5 H Lymph % (Auto) Lymph # (Auto) [place] # (Auto) Seg Neutrophils % Seg Neuts % (Manual) Lymphocytes % (Manual) Nucleated RBC % Seg Neutrophils # Seg Neutrophils # Man Lymphocytes # (Manual) Monocytes # (Manual) D-Dimer ABG pH POC ABG pCO2 POC ABG pO2 ABG Hemoglobin ABG Oxyhemoglobin ABG Sodium ABG Potassium ABG Chloride ABG Glucose Carboxyhemoglobin Sodium Potassium Chloride Carbon Dioxide BUN Creatinine Glucose POC Glucose Lactic Acid Calcium Magnesium AST ALT Total Protein Albumin Arterial Blood Glucose Arterial Blood Ionized Calcium Urine WBC (Auto) Urine Creatinine Chest x-ray: pending Allied health notes reviewed: nursing
--- NOTE | 2021-08-09 13:37 | Anesthesia Consultation ---
<EDEKESHAWN OSUNA - Last Filed: 08/09/21 13:42> Anesthesia Consult and Med Hx Date of service: 08/09/21 - Airway Anesthetic Teeth Evaluation: Good ROM Head & Neck: Adequate Mental/Hyoid Distance: Adequate Mallampati Class: Class III Intubation Access Assessment: Possibly Difficult - Pre-Operative Health Status ASA Pre-Surgery Classification: ASA4 Proposed Anesthetic Plan: General - Pulmonary Hx Smoking: Yes Hx Respiratory Symptoms: Yes (intubated) COPD: Yes Hx Pneumonia: Yes (large right lung parenchemal mass with adenopathy) - Cardiovascular System Hx Hypertension: Yes Hx Pacemaker: No Hx Internal Defibrillator: No Hx Peripheral Vascular Disease: Yes (DVT) - Gastrointestinal Hx Ulcer: No (dysphagea) - Endocrine Hx Insulin Dependent Diabetes: Yes - Other Systems Hx Cancer: Yes (h/o Right breast CA, s/p right mastectomy) Hx Obesity: Yes (BMI 46.1) <URSULA TORO - Last Filed: 08/10/21 09:08> Anesthesia Consult and Med Hx - Airway Intubation Access Assessment: Possibly Difficult (7.5 oETT ins situ) - Pre-Operative Health Status ASA Pre-Surgery Classification: ASA4 Proposed Anesthetic Plan: General - Additional Comments Anesthesia Medical History Comments: Evaluated immediately prior to procedure. PMH metastatic breast ca, COPD, vent dependent respiratory failure, HTN, DVT, IDDM scheduled for perc trach/PEG. Versed, fentanyl gtt, no pressors. FiO2 40%/Peep 6.
--- NOTE | 2021-08-09 13:51 | Event Note ---
Date: 08/09/21 Pt chart reviewed. 66-year-old female with 1. vent dependent respiratory failure 2. Metastatic breast cancer to lung 3. LE DVT Plan: 1. Continue care as per ICU team and consultants 2. Trach/PEG tomorrow 08/10/21 at 7:30am 3. Lovenox held 4. Hold TF at [facility] 5. patient family updated Patient has a very poor prognosis 2/2 met breast cancer to lung, triple negative markers, and as she is not a good candidate for adjuvant therapy at this time. Thank you. Please call with any questions or concerns. Evaluation and treatment of this patient was during the time of the national and state emergency arising from COVID19 coronavirus pandemic. Treatment and procedures performed meet the current and available best practice and guidelines for patient during the COVID pandemic.
[2021-08-09] MEDS: INSULIN GLARGINE 100 UNITS/ML SUB-Q SCH (21:54)
[2021-08-09] MEDS: MIDAZOLAM 100 MG in SODIUM CHLORIDE 0.9% 80 ML IV SCH (21:55)
[2021-08-10] MEDS: INSULIN LISPRO 100 UNIT/ML SUB-Q SCH ×3 (00:58→17:44)
[2021-08-10] MEDS: fentaNYL DRIP Premix 2,000 MCG/100 ML BAG IV SCH ×3 (04:04→18:04)
[2021-08-10] MEDS: FREE WATER PO SCH ×4 (04:05→09:33)
[2021-08-10 06:17] LABS: Hematocrit 25.9 % (30.3-42.9); Hemoglobin 8.4 gm/dl (10.1-14.3); Mean Corpuscular HGB Conc 32 % (30-34); Mean Corpuscular Volume 89 fl (79-97); Platelet Count 217 K/mm3 (140-440); Red Blood Count 2.92 M/mm3 (3.65-5.03); Red Cell Distribution Width 16.7 % (13.2-15.2)
[2021-08-10 06:29] LABS: INR 1.05 (0.87-1.13); Partial Thromboplastin Time 29.9 Sec. (24.2-36.6)
[2021-08-10 06:38] LABS: Calcium 8.9 mg/dL (8.4-10.2)
[2021-08-10] MEDS ORDERED: MIDAZOLAM 2 MG/2 ML INJ ONE (07:37)
[2021-08-10] MEDS ORDERED: ROCURONIUM 50 MG/5 ML INJ IV ONE (07:38)
[2021-08-10] MEDS ORDERED: fentaNYL 100 MCG/2 ML INJ ONE (07:39)
--- NOTE | 2021-08-10 08:21 | Hem/Onc Progress Note ---
Subjective Interval history: televisit by jacques discussed with pt/s nurse because she is on a vent 66yo woman with h/o metastatic breast cancer affecting lungs bronchoscopy biopsy-->carcinoma c/w breast primary, ER/LA/H2N neg, TTF1 neg still on vent--unable to wean because of agitation discussed with daughter Rosana and Femi- she had chemotherapy with Dr. Wade at [place] in 2019 she would want more treatment, they want to push planning trach and pg tube DATA REVIEWED BELOW Chest CT has RUL tumor and mediastinal mass IMP: h/o local breast cancer 2019, s/p chemotherapy, presumed to be in remission until this hospitalization now with metastatic breast cancer affecting lungs, mediastinum, and LN L leg prox DVT-on lovenox not a good candidate for chemotherapy, but chest tumor radiation may be possible REC: planning for tracheostomy and PG tube-I agree with this plan try for transfer to [facility] "full dose"-->holding for procedure end of life discussion is appropriate, even though aggressive interventions are underway Active Medications Acetaminophen (Acetaminophen 325 Mg Tab) 650 mg PO Q6H PRN PRN Reason: Pain MILD(1-3)/Fever >100.5/GARCIA Albuterol/Ipratropium (Ipratropium/Albuterol Sulfate 3 Ml Ampul.Neb) 1 ampul IH TID [facility] Last Admin: 08/09/21 20:06 Dose: 1 ampul Documented by: Lipase/Protease/Amylase (Lipase 10,500/Protease 25,000/Amylase 43,750 (Units) Dr Campoverde) 1 each FEEDTUBE PRN PRN PRN Reason: For Clogged Feeding Tube Arformoterol Tartrate (Arformoterol 15 Mcg/2 Ml Nebu) 15 mcg IH Q12HRT [facility] Last Admin: 08/09/21 20:06 Dose: 15 mcg Documented by: Bisacodyl (Bisacodyl 10 Mg Rect Supp) 10 mg LA QDAY PRN PRN Reason: Constip unreliev by MOM/or NPO Budesonide (Budesonide 0.5 Mg/2 Ml Nebu) 0.5 mg IH Q12HRT [facility] Last Admin: 08/09/21 20:06 Dose: 0.5 mg Documented by: Dextrose (Dextrose 50% In Water (25gm) 50 Ml Syringe) 50 ml IV Q30MIN PRN; Protocol PRN Reason: Hypoglycemia Famotidine (Famotidine 20 Mg/2 Ml Inj) 10 mg IV BID DEMIAN Last Admin: 08/09/21 21:54 Dose: 10 mg Documented by: Fentanyl (Fentanyl 100 Mcg/2 Ml Inj) 50 mcg IV Q10MIN PRN PRN Reason: ANALGESIA Last Admin: 08/04/21 09:05 Dose: 50 mcg Documented by: Hydralazine HCl (Hydralazine 20 Mg/1 Ml Inj) 10 mg IV Q6H PRN PRN Reason: SBP > 165 Last Admin: 08/03/21 17:31 Dose: 10 mg Documented by: Hydrophilic Ointment (Lip Therapy Vaseline) 1 applic TP Q2HR PRN PRN Reason: Dry Lips Fentanyl Citrate (Fentanyl Drip Premix) 2,000 mcg in 100 mls @ 5.35 mls/hr IV TITR DEMIAN; Protocol Last Admin: 08/10/21 04:04 Dose: 3 mcg/kg/hr, 16.05 mls/hr Documented by: Midazolam HCl 100 mg/ Sodium (Chloride) 100 mls @ 2 mls/hr IV TITR DEMIAN; Protocol Last Admin: 08/09/21 21:55 Dose: 2 mg/hr, 2 mls/hr Documented by: Norepinephrine (Levophed Drip 4 Mg/Ns 250 Ml) 4 mg in 250 mls @ 7.5 mls/hr IV TITR DEMIAN; Protocol Insulin Glargine (Insulin Glargine 100 Units/Ml) 30 units SUB-Q QHS DEMIAN Last Admin: 08/09/21 21:54 Dose: 30 units Documented by: Insulin Human Lispro (Insulin Lispro 100 Unit/Ml) 0 unit SUB-Q Q6HR DEMIAN; Protocol Last Admin: 08/10/21 00:58 Dose: Not Given Documented by: Magnesium Hydroxide (Magnesium Hydroxide (Mom) Oral Liqd Udc) 30 ml PO Q4H PRN PRN Reason: Constipation Midazolam HCl (Midazolam 2 Mg/2 Ml Inj) 2 mg IV Q10MIN PRN PRN Reason: Sedation Last Admin: 08/07/21 10:10 Dose: 2 mg Documented by: Multi-Ingred Cream/Lotion/Oil/Oint (Mineral Oil/Petrolatum, White Ophth Oint 3.5 Gm) 1 applic OU Q4HR PRN PRN Reason: Dry Eye(s) Quetiapine Fumarate (Quetiapine 200 Mg Tab) 200 mg PO BID [facility] Last Admin: 08/09/21 21:54 Dose: 200 mg Documented by: Senna/Docusate Sodium (Sennosides/Docusate Sodium 8.6/50 Mg Tab) 1 tab FEEDTUBE BID [facility] Last Admin: 08/09/21 21:54 Dose: 1 tab Documented by: Simple Syrup (Simple Syrup 15 Ml) 15 ml FEEDTUBE PRN PRN PRN Reason: Hypoglycemia Simple Syrup (Simple Syrup 15 Ml) 30 ml FEEDTUBE PRN PRN PRN Reason: Hypoglycemia Sodium Bicarbonate (Sodium Bicarbonate 325 Mg Tab) 325 mg FEEDTUBE PRN PRN PRN Reason: For Clogged Feeding Tube Sodium Chloride (Sodium Chloride 0.9% 10 Ml Flush Syringe) 10 ml IV BID [facility] Last Admin: 08/09/21 21:57 Dose: 10 ml Documented by: Sodium Chloride (Sodium Chloride 0.9% 10 Ml Flush Syringe) 10 ml IV PRN PRN PRN Reason: LINE FLUSH Laboratory Last Values WBC 13.2 K/mm3 (4.5-11.0) H 08/10/21 05:20 Hgb 8.4 gm/dl (10.1-14.3) L 08/10/21 05:20 Hct 25.9 % (30.3-42.9) L 08/10/21 05:20 Plt Count 217 K/mm3 (140-440) 08/10/21 05:20 Creatinine 1.4 mg/dL (0.6-1.2) H 08/10/21 05:20 Total Bilirubin 0.40 mg/dL (0.1-1.2) 08/09/21 10:00 AST 37 units/L (5-40) 08/09/21 10:00 ALT 69 units/L (7-56) H 08/09/21 10:00 Alkaline Phosphatase 67 units/L (35-129) 08/09/21 10:00 Hepatitis C Antibody Non-reactive (NonReactive) 08/02/21 15:40 AFB Identification Negative 08/02/21 14:30 Objective - Constitutional Vitals: Last Vital Signs Temp 98.6 F 08/10/21 04:00 Pulse 87 08/10/21 07:00 Resp 15 08/10/21 07:00 BP 108/69 08/10/21 07:00 Pulse Ox 95 08/10/21 07:00 - Labs Lab Results: Laboratory Results - last 24 hr 08/09/21 08/09/21 08/09/21 10:00 10:00 11:34 WBC 13.0 H RBC 2.88 L Hgb 8.5 L Hct 25.8 L MCV 90 MCH 30 MCHC 33 RDW 16.5 H Plt Count 204 PT INR APTT Sodium 146 H Potassium 4.0 Chloride 111.3 H Carbon Dioxide 29 Anion Gap 10 BUN 72 H Creatinine 1.5 H Estimated GFR 42 BUN/Creatinine Ratio 48 Glucose 119 H POC Glucose 114 H Calcium 8.6 Total Bilirubin 0.40 AST 37 ALT 69 H Alkaline Phosphatase 67 Total Protein 5.2 L Albumin 2.6 L Albumin/Globulin Ratio 1.0 08/09/21 08/10/21 08/10/21 16:50 00:12 05:20 WBC 13.2 H RBC 2.92 L Hgb 8.4 L Hct 25.9 L MCV 89 MCH 29 MCHC 32 RDW 16.7 H Plt Count 217 PT INR APTT Sodium Potassium Chloride Carbon Dioxide Anion Gap BUN Creatinine Estimated GFR BUN/Creatinine Ratio Glucose POC Glucose 117 H 114 H Calcium Total Bilirubin AST ALT Alkaline Phosphatase Total Protein Albumin Albumin/Globulin Ratio 08/10/21 08/10/21 08/10/21 05:20 05:20 06:08 WBC RBC Hgb Hct MCV MCH MCHC RDW Plt Count PT 14.2 INR 1.05 APTT 29.9 Sodium 147 H Potassium 4.3 Chloride 111.8 H Carbon Dioxide 24 Anion Gap 16 BUN 68 H Creatinine 1.4 H Estimated GFR 46 BUN/Creatinine Ratio 49 Glucose 81 POC Glucose 83 Calcium 8.9 Total Bilirubin AST ALT Alkaline Phosphatase Total Protein Albumin Albumin/Globulin Ratio Medications & Allergies - Medications Allergies/Adverse Reactions: Allergies No Known Allergies Allergy (Verified 12/24/18 11:45) Home Medications: Home Medications Medication Instructions Recorded Confirmed Last Taken Type traMADoL [Ultram 50 MG tab] 50 mg PO Q6HR PRN #15 tablet 01/25/18 Unknown Rx Active Medications: Generic Name Dose Route Start Last Admin Trade Name Freq PRN Reason Stop Dose Admin Acetaminophen 650 mg 07/28/21 02:11 Acetaminophen 325 Mg Tab PO Q6H PRN Pain MILD(1-3)/Fever >100.5/GARCIA Albuterol/Ipratropium 1 ampul 07/28/21 14:00 08/09/21 20:06 Ipratropium/Albuterol Sulfate 3 Ml Ampul.Neb IH 1 ampul TID DEMIAN Administration Lipase/Protease/Amylase 1 each 07/29/21 13:01 Lipase 10,500/Protease 25,000/Amylase 43,750 (Units) Dr Cap FEEDTUBE PRN PRN For Clogged Feeding Tube Arformoterol Tartrate 15 mcg 07/28/21 20:00 08/09/21 20:06 Arformoterol 15 Mcg/2 Ml Nebu IH 15 mcg Q12HRT DEMIAN Administration Bisacodyl 10 mg 08/07/21 09:50 Bisacodyl 10 Mg Rect Supp LA QDAY PRN Constip unreliev by MOM/or NPO Budesonide 0.5 mg 07/28/21 20:00 08/09/21 20:06 Budesonide 0.5 Mg/2 Ml Nebu IH 0.5 mg Q12HRT DEMIAN Administration Dextrose 50 ml 07/28/21 02:11 Dextrose 50% In Water (25gm) 50 Ml Syringe IV Q30MIN PRN Hypoglycemia Protocol Famotidine 10 mg 08/02/21 10:00 08/09/21 21:54 Famotidine 20 Mg/2 Ml Inj IV 10 mg BID DEMIAN Administration Fentanyl 50 mcg 07/29/21 10:42 08/04/21 09:05 Fentanyl 100 Mcg/2 Ml Inj IV 50 mcg Q10MIN PRN Administration ANALGESIA Hydralazine HCl 10 mg 07/30/21 14:52 08/03/21 17:31 Hydralazine 20 Mg/1 Ml Inj IV 10 mg Q6H PRN Administration SBP > 165 Hydrophilic Ointment 1 applic 07/29/21 10:42 Lip Therapy Vaseline TP Q2HR PRN Dry Lips Fentanyl Citrate 2,000 mcg in 100 mls @ 5.35 mls/hr 07/29/21 11:00 08/10/21 04:04 Fentanyl Drip Premix IV 3 mcg/kg/hr TITR DEMIAN 16.05 mls/hr Administration Protocol 1 MCG/KG/HR Midazolam HCl 100 mg/ Sodium 100 mls @ 2 mls/hr 07/29/21 11:00 08/09/21 21:55 Chloride IV 2 mg/hr TITR DEMIAN 2 mls/hr Administration Protocol 2 MG/HR Norepinephrine 4 mg in 250 mls @ 7.5 mls/hr 07/29/21 21:00 Levophed Drip 4 Mg/Ns 250 Ml IV TITR DEMIAN Protocol 2 MCG/MIN Insulin Glargine 30 units 08/05/21 22:00 08/09/21 21:54 Insulin Glargine 100 Units/Ml SUB-Q 30 units QHS DEMIAN Administration Insulin Human Lispro 0 unit 07/29/21 12:00 08/10/21 00:58 Insulin Lispro 100 Unit/Ml SUB-Q Not Given Q6HR DEMIAN Protocol Magnesium Hydroxide 30 ml 07/28/21 02:11 Magnesium Hydroxide (Mom) Oral Liqd Udc PO Q4H PRN Constipation Midazolam HCl 2 mg 07/29/21 10:42 08/07/21 10:10 Midazolam 2 Mg/2 Ml Inj IV 2 mg Q10MIN PRN Administration Sedation Multi-Ingred Cream/Lotion/Oil/Oint 1 applic 07/29/21 10:42 Mineral Oil/Petrolatum, White Ophth Oint 3.5 Gm OU Q4HR PRN Dry Eye(s) Quetiapine Fumarate 200 mg 08/05/21 22:00 08/09/21 21:54 Quetiapine 200 Mg Tab PO 200 mg BID DEMIAN Administration Senna/Docusate Sodium 1 tab 07/29/21 22:00 08/09/21 21:54 Sennosides/Docusate Sodium 8.6/50 Mg Tab FEEDTUBE 1 tab BID DEMIAN Administration Simple Syrup 15 ml 07/29/21 13:01 Simple Syrup 15 Ml FEEDTUBE PRN PRN Hypoglycemia Simple Syrup 30 ml 07/29/21 13:01 Simple Syrup 15 Ml FEEDTUBE PRN PRN Hypoglycemia Sodium Bicarbonate 325 mg 07/29/21 13:01 Sodium Bicarbonate 325 Mg Tab FEEDTUBE PRN PRN For Clogged Feeding Tube Sodium Chloride 10 ml 07/28/21 10:00 08/09/21 21:57 Sodium Chloride 0.9% 10 Ml Flush Syringe IV 10 ml BID DEMIAN Administration Sodium Chloride 10 ml 07/28/21 02:05 Sodium Chloride 0.9% 10 Ml Flush Syringe IV PRN PRN LINE FLUSH
[2021-08-10] MEDS ORDERED: ONDANSETRON 4 MG/2 ML INJ ONE (08:35)
[2021-08-10] MEDS ORDERED: LIPASE 10,500/PROTEASE 25,000/AMYLASE 43,750 (UNITS) DR CAP FEEDTUBE PRN (08:35)
[2021-08-10] MEDS ORDERED: ALBUTEROL 8.5 GM MDI INHALATION IH ONE (08:35)
[2021-08-10] MEDS ORDERED: SIMPLE SYRUP 15 ML FEEDTUBE PRN (08:35)
--- NOTE | 2021-08-10 08:37 | Post Operative Note ---
Date of procedure: 08/10/21 Pre-op diagnosis: VDRF Post-op diagnosis: same Findings: 1. Mass extending into right mainstem bronchus 2. Tracheostomy 3cm above clarice 3. PEG with bumper at 6cm at the skin Procedure: Percutaneous tracheostomy Anesthesia: GETA, local Surgeon: DANISH GIRON Estimated blood loss: minimal Pathology: none Condition: stable Disposition: ICU
--- NOTE | 2021-08-10 09:00 | Operative Report ---
Operative Report Operative Report: Date of surgery: 08/10/2021 Preoperative diagnosis: Vent dependence Postoperative diagnosis: Same as above Procedure: Percutaneous tracheostomy Surgeon: Melanie De La Cruz DO Anesthesia: Geta, local Findings: 1. Mass extending into right mainstem bronchus 2. Tracheostomy 3cm above clarice EBL: LESS than 5 cc Specimen: None Complications: None Disposition: Stable to ICU HPI and indication: Patient is a 66-year-old female with past medical history of breast cancer, now metastasized to the lung causing airway obstruction. Patient has been intubated and as she cannot be safely weaned from the ventilator, a tracheostomy/PEG was requested by the security guard dispatcher. All risk, benefits, alternatives to the procedure were discussed with the patient's daughter and /NOK and questions answered. Consent obtained for tracheostomy and PEG tube placement. Procedure in detail: The patient was identified in the ICU and brought down to the operating room and positioned in supine position in the hospital bed. Consent was verified on the chart timeout was performed. The neck was prepped and draped in usual sterile fashion. Anesthesia was administered. A shoulder roll was placed, with the patient's neck mildly hyperextended. Fiberoptic bronchoscopy was performed by Dr. Sethi. Please see separate note. The fiberoptic bronchoscope was inserted through the endotracheal tube via the adapter and the trachea examined. The trachea was unremarkable and the 7.5 ET tube was approximately 3 cm from clarice at 24 cm at the lip. 1% lidocaine was infiltrated into the skin and subcutaneous tissue approximately 2 fingerbreadths above the sternal notch. A 2 cm incision was made in a horizontal fashion using a 15 blade. Using a hemostat the soft tissues were bluntly dissected until the trachea was encountered. The ET tube was then pulled back slowly to about 16 cm. Using the introducer needle, the trachea was entered under direct visualization. The wire was passed down the trachea towards the clarice. Introducer needle was then removed. The trachea was then serially dilated, after which a 8 Hebrew Shiley tracheostomy tube was inserted. The balloon was visualized via fiberoptic bronchoscopy. The balloon was inflated, patient placed back on ventilator. There was end-tidal CO2 detected and tidal volumes assessed which were satisfactory. The bronchoscope was then placed through the tracheostomy and showed good positioning of the tracheostomy approximately 3 cm above the clarice and no bleeding. Of note, a mass was visualized extending into the right mainstem bronchus. A drain sponge was placed between the skin and tracheostomy. The tracheostomy was secured to the patient's neck with 2-0 Pr olene sutures and using a tracheostomy strap. A post op chest x-ray is pending. The patient tolerated the procedure well. All sharps were disposed of appropriately. Patient underwent PEG tube placement next, please see separate note.
--- NOTE | 2021-08-10 09:08 | Anesthesia Day of Surgery ---
Anesthesia Day of Surgery - Day of Surgery Patient Examined: Yes Patient H&P Reviewed: Yes Patient is NPO: Yes
--- NOTE | 2021-08-10 09:09 | Post Anesthesia Evaluation ---
- Post Anesthesia Evaluation Patient Participated: No (sedated, intubated) Airway Patent: Yes Stable Respiratory Function: Yes Nausea/Vomiting: No (unable to assess) Temp > 96.8F: Yes Pain Manageable: Yes (unable to assess, analgesics given) Adequeate Hydration: Yes Anesthesia Complications: No Patient on Ventilator: Yes
[2021-08-10] MEDS: ARFORMOTEROL 15 MCG/2 ML NEBU IH SCH ×2 (09:19→20:01)
[2021-08-10] MEDS: BUDESONIDE 0.5 MG/2 ML NEBU IH SCH ×2 (09:19→20:01)
[2021-08-10] MEDS: IPRATROPIUM/ALBUTEROL SULFATE 3 ML AMPUL.NEB IH SCH ×3 (09:19→20:01)
[2021-08-10] MEDS: QUEtiapine 200 MG TAB PO SCH ×2 (09:33→22:18)
--- NOTE | 2021-08-10 09:36 | Operative Report ---
Operative Report Operative Report: Date: Surgeon: Richard Sethi MD Procedure: fiberoptic bronchoscopy Anesthesia: GETA Indication: Patient is a 66 F. Patient intubated and sedated therefore unable to provided detail history. The patient has been unable to be weaned from the ventilator and therefore tracheostomy with assistance of fiberoptic bronchoscopy is indicated along with PEG tube placement. All risks were discussed with the family, and consent obtained. Procedure in detail: The patient was identified in the hospital bed in the ICU and brought down to the OR. After anesthesia was induced, the fiberoptic bronchoscope was passed through the endotracheal tube using an adapter. The trachea and clarice were visualized, there was a normal appearance of the mucosa and no debris or fluid was seen. At this point, Dr. De La Cruz who performed the tracheostomy portion of the procedure (please see separate operative note), asked for the endotracheal tube to be withdrawn slowly. The upper trachea was visualized and appeared normal. At this point, Dr. De La Cruz placed the tracheostomy tube under direct visualization by fiberoptic bronchoscopy. Please see separate operative note for more details on Tracheostomy placement. Once the tracheostomy tube was placed, the bronchoscope was withdrawn from the endotracheal tube and placed through the tracheostomy tube. The tracheostomy tube appeared to be in good position approximately 3 cm above the clarice. The bronchoscope was then withdrawn. The procedure was terminated and the patient was returned to ICU in stable condition. Complication: none immediate
--- NOTE | 2021-08-10 09:44 | Operative Report ---
Operative Report Operative Report: Date: 08/10/2021 Surgeon: Richard Sethi MD Co-Surgeon: Laureen De La Cruz DO Pre-op Dx: respiratory failure Post-op Dx: same as pre-op Anesthesia: GETA Indiction: Pt is a 66 year old female with metastatic stage 4 breast CA who is an able to weaned from ventilator and also requiring termination clerk tube feeds. She is here today for PEG tube placement. Family signed informed consent. Details of procedure: A mouth guard was placed through which a flexible endoscope was passed through the mouth and into the esophagus. The NG tube was visualized along the way. The endoscope was advanced through the esophagus and into the stomach. The stomach was unremarkable. The stomach was insufflated and transillumination performed. An area of transillumination was visualized in the left upper quadrant and marked. Dr. De La Cruz performed the beside tube placement. The skin was then prepped and draped in usual sterile fashion. Local anesthetic was infiltrated to the skin at the intended incision site. A small incision was made in the skin using an 11 blade. An introducer needle/breakaway sheath was inserted directly through this incision into the stomach under direct endoscopic visualization. The needle was removed. The wire was passed and grasped with a snare by the internet marketing assistant and the wire pulled along with the endoscope through the mouth. The PEG tube was assembled onto the wire and pulled back through the mouth and down into the stomach. The outer bumper was at 6 cm at the skin. The PEG tube was cut to size and assembled in the usual fashion. A drain sponge was applied between the skin and the PEG tube and the tube secured with tape. I then reinserted the endoscope into the mouth and down into the stomach. The PEG tube inner bumper was seen to lay flush against the gastric mucosa without tension. There is no bleeding. The pylorus was entered and the first portion of the duodenum was unremarkable. The scope was then withdrawn back into the stomach and retroflexed. The entirety of the stomach was unremarkable. The NG tube was withdrawn. The stomach was then desufflated and the endoscope withdrawn. EBL: minimal Complications: none immediate
--- NOTE | 2021-08-10 09:50 | Progress Note ---
Assessment and Plan Impression * Nonoliguric acute kidney injury secondary to prerenal azotemia --FeNa 0.13%. * Acute hypoxic respiratory failure * Hypernatremia * Pulmonary infiltrates * History of breast cancer. [place] to be metastatic with mediastinal and lung masses Recommendations * Start D5W 75ml/hour as TF on hold currently; will dc once TF w/ free H2O resumed * Vent management as per ICU team * Avoid nephrotoxins * Monitor fluid status and electrolytes closely * No indication for renal replacement therapy at this time Subjective Date of service: 08/10/21 Principal diagnosis: Ac hypoxemic resp failure ; AE-COPD; H/O CA Breast; DM II; HTN Interval history: Patient is seen s/p PEG and trach Objective - Vital Signs Vital signs: Vital Signs - 12hr 08/09/21 08/09/21 08/09/21 22:00 22:16 22:30 Temperature Pulse Rate 101 H 101 H 102 H Pulse Rate [ From Monitor] Respiratory 16 16 15 Rate Blood Pressure 121/70 121/70 114/69 O2 Sat by Pulse 97 95 97 Oximetry 08/09/21 08/09/21 08/09/21 22:46 23:00 23:16 Temperature Pulse Rate 103 H 104 H 103 H Pulse Rate [ From Monitor] Respiratory 17 17 16 Rate Blood Pressure 114/69 133/73 133/73 O2 Sat by Pulse 96 96 96 Oximetry 08/09/21 08/09/21 08/10/21 23:30 23:46 00:00 Temperature 98.5 F Pulse Rate 103 H 102 H 101 H Pulse Rate [ 96 H From Monitor] Respiratory 16 16 16 Rate Blood Pressure 133/73 143/69 143/69 O2 Sat by Pulse 95 96 95 Oximetry 08/10/21 08/10/21 08/10/21 00:04 00:16 00:30 Temperature Pulse Rate 102 H 100 H 100 H Pulse Rate [ From Monitor] Respiratory 15 17 Rate Blood Pressure 143/69 131/72 131/72 O2 Sat by Pulse 95 96 95 Oximetry 08/10/21 08/10/21 08/10/21 00:46 01:00 01:16 Temperature Pulse Rate 99 H 99 H 99 H Pulse Rate [ From Monitor] Respiratory 16 17 16 Rate Blood Pressure 125/71 125/71 115/70 O2 Sat by Pulse 95 96 95 Oximetry 08/10/21 08/10/21 08/10/21 01:30 01:46 02:00 Temperature Pulse Rate 98 H 99 H 98 H Pulse Rate [ From Monitor] Respiratory 16 19 17 Rate Blood Pressure 122/70 122/70 122/70 O2 Sat by Pulse 96 93 95 Oximetry 08/10/21 08/10/21 08/10/21 02:16 02:30 02:46 Temperature Pulse Rate 97 H 96 H 98 H Pulse Rate [ From Monitor] Respiratory 18 17 22 Rate Blood Pressure 128/63 128/63 133/64 O2 Sat by Pulse 95 95 95 Oximetry 08/10/21 08/10/21 08/10/21 03:00 03:16 03:30 Temperature Pulse Rate 96 H 95 H 94 H Pulse Rate [ From Monitor] Respiratory 20 16 16 Rate Blood Pressure 133/64 126/62 126/62 O2 Sat by Pulse 95 95 95 Oximetry 08/10/21 08/10/21 08/10/21 03:46 04:00 04:16 Temperature 98.6 F Pulse Rate 97 H 109 H 101 H Pulse Rate [ 89 From Monitor] Respiratory 16 19 25 H Rate Blood Pressure 121/66 144/97 144/97 O2 Sat by Pulse 96 97 93 Oximetry 08/10/21 08/10/21 08/10/21 04:30 04:46 05:00 Temperature Pulse Rate 98 H 95 H 93 H Pulse Rate [ From Monitor] Respiratory 24 15 15 Rate Blood Pressure 144/97 129/64 129/64 O2 Sat by Pulse 94 94 95 Oximetry 08/10/21 08/10/21 08/10/21 05:16 05:30 05:46 Temperature Pulse Rate 90 89 89 Pulse Rate [ From Monitor] Respiratory 16 15 13 Rate Blood Pressure 113/64 113/64 105/69 O2 Sat by Pulse 95 95 96 Oximetry 08/10/21 08/10/21 08/10/21 06:00 06:16 06:30 Temperature Pulse Rate 89 88 87 Pulse Rate [ From Monitor] Respiratory 13 13 16 Rate Blood Pressure 104/71 104/71 101/71 O2 Sat by Pulse 95 96 97 Oximetry 08/10/21 08/10/21 08/10/21 06:46 07:00 09:15 Temperature 99 F Pulse Rate 87 87 97 H Pulse Rate [ From Monitor] Respiratory 15 15 Rate Blood Pressure 101/71 108/69 128/77 O2 Sat by Pulse 96 95 93 Oximetry - General Appearance General appearance: well-developed, well-nourished EENT: ATNC Neck: other (trach) Respiratory: Present: Other (rhonchi) Cardiology: regular, S1S2 Gastrointestinal: obese Musculoskeletal: other (no edema) - Lab 08/11/21 Unknown 08/11/21 04:30 Most recent lab results ABG pH 7.368 (7.320-7.450) 08/07/21 04:00 ABG O2 Saturation 95.2 (0-100) 08/07/21 04:00 Calcium 8.9 mg/dL (8.4-10.2) 08/10/21 05:20 Phosphorus 4.10 mg/dL (2.5-4.5) 08/08/21 06:00 Magnesium 2.20 mg/dL (1.7-2.3) 08/08/21 06:00 Urine Creatinine 125.6 mg/dL (0.1-20.0) H 08/01/21 Unknown Urine Sodium 12 mmol/L 08/01/21 Unknown Medications & Allergies - Medications Allergies/Adverse Reactions: Allergies No Known Allergies Allergy (Verified 12/24/18 11:45) Home Medications: Home Medications Medication Instructions Recorded Confirmed Last Taken Type traMADoL [Ultram 50 MG tab] 50 mg PO Q6HR PRN #15 tablet 01/25/18 Unknown Rx Active Medications: Generic Name Dose Route Start Last Admin Trade Name Freq PRN Reason Stop Dose Admin Acetaminophen 650 mg 07/28/21 02:11 Acetaminophen 325 Mg Tab PO Q6H PRN Pain MILD(1-3)/Fever >100.5/GARCIA Albuterol/Ipratropium 1 ampul 07/28/21 14:00 08/10/21 09:19 Ipratropium/Albuterol Sulfate 3 Ml Ampul.Neb IH 1 ampul TID DEMIAN Administration Lipase/Protease/Amylase 1 each 07/29/21 13:01 Lipase 10,500/Protease 25,000/Amylase 43,750 (Units) Dr Campoverde FEEDTUBE PRN PRN For Clogged Feeding Tube Arformoterol Tartrate 15 mcg 07/28/21 20:00 08/10/21 09:19 Arformoterol 15 Mcg/2 Ml Nebu IH 15 mcg Q12HRT DEMIAN Administration Bisacodyl 10 mg 08/07/21 09:50 Bisacodyl 10 Mg Rect Supp CA QDAY PRN Constip unreliev by MOM/or NPO Budesonide 0.5 mg 07/28/21 20:00 08/10/21 09:19 Budesonide 0.5 Mg/2 Ml Nebu IH 0.5 mg Q12HRT DEMIAN Administration Dextrose 50 ml 07/28/21 02:11 Dextrose 50% In Water (25gm) 50 Ml Syringe IV Q30MIN PRN Hypoglycemia Protocol Enoxaparin Sodium 100 mg 08/11/21 10:00 Enoxaparin 40 Mg/0.4 Ml Inj SUB-Q BID [facility] Protocol Famotidine 10 mg 08/02/21 10:00 08/09/21 21:54 Famotidine 20 Mg/2 Ml Inj IV 10 mg BID DEMIAN Administration Fentanyl 50 mcg 07/29/21 10:42 08/04/21 09:05 Fentanyl 100 Mcg/2 Ml Inj IV 50 mcg Q10MIN PRN Administration ANALGESIA Hydralazine HCl 10 mg 07/30/21 14:52 08/03/21 17:31 Hydralazine 20 Mg/1 Ml Inj IV 10 mg Q6H PRN Administration SBP > 165 Hydrophilic Ointment 1 applic 07/29/21 10:42 Lip Therapy Vaseline TP Q2HR PRN Dry Lips Fentanyl Citrate 2,000 mcg in 100 mls @ 5.35 mls/hr 07/29/21 11:00 08/10/21 04:04 Fentanyl Drip Premix IV 3 mcg/kg/hr TITR DEMIAN 16.05 mls/hr Administration Protocol 1 MCG/KG/HR Midazolam HCl 100 mg/ Sodium 100 mls @ 2 mls/hr 07/29/21 11:00 08/09/21 21:55 Chloride IV 2 mg/hr TITR DEMIAN 2 mls/hr Administration Protocol 2 MG/HR Norepinephrine 4 mg in 250 mls @ 7.5 mls/hr 07/29/21 21:00 Levophed Drip 4 Mg/Ns 250 Ml IV TITR DEMIAN Protocol 2 MCG/MIN Insulin Glargine 30 units 08/05/21 22:00 08/09/21 21:54 Insulin Glargine 100 Units/Ml SUB-Q 30 units QHS DEMIAN Administration Insulin Human Lispro 0 unit 07/29/21 12:00 08/10/21 00:58 Insulin Lispro 100 Unit/Ml SUB-Q Not Given Q6HR DEMIAN Protocol Magnesium Hydroxide 30 ml 07/28/21 02:11 Magnesium Hydroxide (Mom) Oral Liqd Udc PO Q4H PRN Constipation Midazolam HCl 2 mg 07/29/21 10:42 08/07/21 10:10 Midazolam 2 Mg/2 Ml Inj IV 2 mg Q10MIN PRN Administration Sedation Multi-Ingred Cream/Lotion/Oil/Oint 1 applic 07/29/21 10:42 Mineral Oil/Petrolatum, White Ophth Oint 3.5 Gm OU Q4HR PRN Dry Eye(s) Quetiapine Fumarate 200 mg 08/05/21 22:00 08/09/21 21:54 Quetiapine 200 Mg Tab PO 200 mg BID DEMIAN Administration Senna/Docusate Sodium 1 tab 07/29/21 22:00 08/09/21 21:54 Sennosides/Docusate Sodium 8.6/50 Mg Tab FEEDTUBE 1 tab BID DEMIAN Administration Simple Syrup 15 ml 07/29/21 13:01 Simple Syrup 15 Ml FEEDTUBE PRN PRN Hypoglycemia Simple Syrup 30 ml 07/29/21 13:01 Simple Syrup 15 Ml FEEDTUBE PRN PRN Hypoglycemia Sodium Bicarbonate 325 mg 07/29/21 13:01 Sodium Bicarbonate 325 Mg Tab FEEDTUBE PRN PRN For Clogged Feeding Tube Sodium Chloride 10 ml 07/28/21 10:00 08/09/21 21:57 Sodium Chloride 0.9% 10 Ml Flush Syringe IV 10 ml BID DEMIAN Administration Sodium Chloride 10 ml 07/28/21 02:05 Sodium Chloride 0.9% 10 Ml Flush Syringe IV PRN PRN LINE FLUSH
--- NOTE | 2021-08-10 10:30 | XRay Report ---
CHEST 1 VIEW INDICATION: s/p tracheostomy. COMPARISON: 4 days prior FINDINGS: Support devices: Endotracheal tube has been exchanged for tracheostomy, which projects in expected po sition. Gastric tube has been removed. Left PICC is unchanged. Heart: Stable. Lungs/Pleura: There is now complete opacification of the right hemithorax. Left lung is clear aside f rom mild airspace disease in the mid to lower lung. No pneumothorax. IMPRESSION: 1. New since the prior, there is complete opacification of the right hemithorax. This may be due to a combination of effusion and compressive or obstructive atelectasis. Signer Name: Elvis Farrell MD Signed: 08/10/2021 10:26 AM Workstation Name: [id number]
[2021-08-10] MEDS: FAMOTIDINE 20 MG/2 ML INJ IV SCH ×2 (10:39→22:18)
[2021-08-10] MEDS ORDERED: DEXTROSE 5% IN WATER 1,000 ML IV SCH (11:00)
--- NOTE | 2021-08-10 12:45 | Progress Note ---
Assessment and Plan Cultures: Blood culture 07/27/2021 no growth Sputum 07/29/2021 usual respiratory leila Urine culture 08/02/2021 no growth Blood culture 08/08/2021 no growth today A/P: 66-year-old female past medical history metastatic breast cancer, hyperten manjeet, diabetes, COPD now with: #Acute sepsis: No fever for 48 hours. Etiology likely due to pneumonia +/- metastatic breast cancer +/- UTI. Sepsis has been up and down in the setting of recent CODE BLUE. #Acute hypoxic respiratory failure: Currently on the vent fio2 30%. In the setting of pneumonia and metastatic breast cancer to the lungs. Patient has a right upper lobe mass. S/p lung mass biopsy has revealed metastatic breast cancer, triple negative. #Left lower extremity DVT and started on therapeutic Lovenox. #Metastatic breast cancer to the lungs. #WYATT: Renally dose medications. Improving. #Status post trach and PEG Recs: -monitor off abx Very Guarded prognosis. Consider palliative care consult. We will sign off please call with any question. Rossy Gutierrez MD [facility] ([facility]) Office [phone] Subjective Date of service: 08/10/21 Principal diagnosis: Ac hypoxemic resp failure ; AE-COPD; H/O CA Breast; DM II; HTN Interval history: Remains on the ventilator via trach. No fever. Sedated. Objective - Exam Narrative Exam: General appearance: Sedated on the vent via trach Eyes: anicteric sclerae, moist conjunctivae; no lid-lag; PERRLA HENT: Normocephalic, Atraumatic; normal external ears, nares open, oropharynx endotracheal tube in place Neck: trach Lungs: Bilateral rhonchi CV: RRR no murmur Abdomen: Soft, nontender, obese Extremities: no edema, no cyanosis Skin: No rash. Psych: Sedated Neuro: Sedated Elizabeth in place - Constitutional Vitals: Vital Signs Temp Pulse Resp BP Pulse Ox 98.7 F 96 H 16 130/82 96 08/10/21 12:00 08/10/21 12:31 08/10/21 12:00 08/10/21 12:31 08/10/21 12:31 Temperature -Last 24 Hours Temperature 98.7 F Temperature 99 F Temperature 98.6 F Temperature 98.7 F Temperature 98.5 F Temperature 99.2 F Temperature 99.6 F - Labs CBC & Chem 7: 08/10/21 05:20 08/10/21 05:20 Labs: Abnormal lab results 08/09/21 08/10/21 08/10/21 Range/Units 16:50 00:12 05:20 WBC 13.2 H (4.5-11.0) K/mm3 RBC 2.92 L (3.65-5.03) M/mm3 Hgb 8.4 L (10.1-14.3) gm/dl Hct 25.9 L (30.3-42.9) % RDW 16.7 H (13.2-15.2) % Sodium (137-145) mmol/L Chloride (98-107) mmol/L BUN (7-17) mg/dL Creatinine (0.6-1.2) mg/dL POC Glucose 117 H 114 H (70-105) mg/dL 08/10/21 Range/Units 05:20 WBC (4.5-11.0) K/mm3 RBC (3.65-5.03) M/mm3 Hgb (10.1-14.3) gm/dl Hct (30.3-42.9) % RDW (13.2-15.2) % Sodium 147 H (137-145) mmol/L Chloride 111.8 H (98-107) mmol/L BUN 68 H (7-17) mg/dL Creatinine 1.4 H (0.6-1.2) mg/dL POC Glucose (70-105) mg/dL
--- NOTE | 2021-08-10 12:47 | Progress Note ---
Assessment and Plan Acute hypoxemic respiratory failure secondary Lung Mass (? Lung vs Breast CA) Acute COPD exacerbation Possible hypercapnia History of right breast cancer Leukocytosis DM II Hypertension Hyperlipidemia Tobacco use disorder - bronchoscopy today - malignancy per oncology team - continue daily SAT and SBT assessment as tolerated post trach - continue full anticoagulation for VTE - continue care as below otherwise; - continue Seroquel to spare IV sedatives - azotemia per nephrology - continue to wean supplemental oxygen for target O2 sat's > 90% acutely - VAP bundle addressed - continue lung protective strategies - continue bronchodilators (GLADIS & LABA) with pulmonary hygiene per RT - wean per pulmonary driven protocols otherwise - continue accuchecks with glycemic control per SSI (While critically ill target blood glucose of 140-180 mg/dL; avoid hypoglycemia) - sedation prn for target RASS 0 to -1 - avoid nephrotoxins, renally dose all medications - continue to avoid benzodiazepine's, reduce the possibility of delirium - complete AB's per ID rec's - prn analgesia per CPOT score - Maintenance of sleep-wake cycle, avoid delirium - enteral nutritional support at goal rate as tolerated - G.I. & VTE prophylaxis - PT/OT/ROM exercises - continue mobility protocols for pressure ulcer prophylaxis - Monitor hemodynamics closely - continue other care per attending / other consultants - discharge planning ongoing concurrently COVID SPECIFIC INTERVENTIONS - test result pending .... Re-evaluate in am & prn CONDITION: CRITICAL PROGNOSIS: GUARDED CODE STATUS: FULL CODE The high probability of a clinically significant, sudden or life-threatening deterioration of the [respiratory, cardiovascular, oncological & neurologic] system(s) required my full and direct attention, intervention and personal management. The aggregate critical care time was [33] minutes without overlap. Time includes spent on; [x] Data Review and interpretation [x] Patient assessment and monitoring of vital signs [x] Documentation [x] Medication orders and management Subjective Date of service: 08/10/21 Principal diagnosis: Ac hypoxemic resp failure ; AE-COPD; H/O CA Breast; DM II; HTN Interval history: Patient is seen today for: Acute hypoxemic respiratory failure; AE-COPD; Possible hypercapnia; H/O CA Breast; DM II; HTN Seen and examined at bedside; 24hour events reviewed; nursing and respiratory care staff consulted; no adverse overnight events reported to me; resting in bed; remains on MVS; R. lung white-out on CXR today but none since 4 days ago re: exact timing of atelectasis; she denies acute pain issues and no gross bleeding from trach tube Objective Vital Signs - 12hr 08/10/21 08/10/21 08/10/21 01:00 01:16 01:30 Temperature Pulse Rate 99 H 99 H 98 H Pulse Rate [ Anterior Bilateral] Pulse Rate [ From Monitor] Respiratory 17 16 16 Rate Respiratory Rate [Anterior Bilateral] Blood Pressure 125/71 115/70 122/70 O2 Sat by Pulse 96 95 96 Oximetry 08/10/21 08/10/21 08/10/21 01:46 02:00 02:16 Temperature Pulse Rate 99 H 98 H 97 H Pulse Rate [ Anterior Bilateral] Pulse Rate [ From Monitor] Respiratory 19 17 18 Rate Respiratory Rate [Anterior Bilateral] Blood Pressure 122/70 122/70 128/63 O2 Sat by Pulse 93 95 95 Oximetry 08/10/21 08/10/21 08/10/21 02:30 02:46 03:00 Temperature Pulse Rate 96 H 98 H 96 H Pulse Rate [ Anterior Bilateral] Pulse Rate [ From Monitor] Respiratory 17 22 20 Rate Respiratory Rate [Anterior Bilateral] Blood Pressure 128/63 133/64 133/64 O2 Sat by Pulse 95 95 95 Oximetry 08/10/21 08/10/21 08/10/21 03:16 03:30 03:46 Temperature Pulse Rate 95 H 94 H 97 H Pulse Rate [ Anterior Bilateral] Pulse Rate [ From Monitor] Respiratory 16 16 16 Rate Respiratory Rate [Anterior Bilateral] Blood Pressure 126/62 126/62 121/66 O2 Sat by Pulse 95 95 96 Oximetry 08/10/21 08/10/21 08/10/21 04:00 04:16 04:30 Temperature 98.6 F Pulse Rate 109 H 101 H 98 H Pulse Rate [ Anterior Bilateral] Pulse Rate [ 89 From Monitor] Respiratory 19 25 H 24 Rate Respiratory Rate [Anterior Bilateral] Blood Pressure 144/97 144/97 144/97 O2 Sat by Pulse 97 93 94 Oximetry 08/10/21 08/10/21 08/10/21 04:46 05:00 05:16 Temperature Pulse Rate 95 H 93 H 90 Pulse Rate [ Anterior Bilateral] Pulse Rate [ From Monitor] Respiratory 15 15 16 Rate Respiratory Rate [Anterior Bilateral] Blood Pressure 129/64 129/64 113/64 O2 Sat by Pulse 94 95 95 Oximetry 08/10/21 08/10/21 08/10/21 05:30 05:46 06:00 Temperature Pulse Rate 89 89 89 Pulse Rate [ Anterior Bilateral] Pulse Rate [ From Monitor] Respiratory 15 13 13 Rate Respiratory Rate [Anterior Bilateral] Blood Pressure 113/64 105/69 104/71 O2 Sat by Pulse 95 96 95 Oximetry 08/10/21 08/10/21 08/10/21 06:16 06:30 06:46 Temperature Pulse Rate 88 87 87 Pulse Rate [ Anterior Bilateral] Pulse Rate [ From Monitor] Respiratory 13 16 15 Rate Respiratory Rate [Anterior Bilateral] Blood Pressure 104/71 101/71 101/71 O2 Sat by Pulse 96 97 96 Oximetry 08/10/21 08/10/21 08/10/21 07:00 07:16 08:42 Temperature 99 F Pulse Rate 87 87 95 H Pulse Rate [ Anterior Bilateral] Pulse Rate [ From Monitor] Respiratory 15 15 17 Rate Respiratory Rate [Anterior Bilateral] Blood Pressure 108/69 108/69 116/77 O2 Sat by Pulse 95 97 99 Oximetry 08/10/21 08/10/21 08/10/21 08:45 09:00 09:15 Temperature Pulse Rate 96 H 96 H 96 H Pulse Rate [ Anterior Bilateral] Pulse Rate [ From Monitor] Respiratory 20 19 18 Rate Respiratory Rate [Anterior Bilateral] Blood Pressure 121/76 133/76 128/77 O2 Sat by Pulse 96 91 93 Oximetry 08/10/21 08/10/21 08/10/21 09:30 09:45 09:53 Temperature Pulse Rate 98 H 101 H Pulse Rate [ 99 H Anterior Bilateral] Pulse Rate [ From Monitor] Respiratory 15 16 Rate Respiratory 16 Rate [Anterior Bilateral] Blood Pressure 128/77 145/88 O2 Sat by Pulse 96 98 Oximetry 08/10/21 08/10/21 08/10/21 10:00 10:15 10:30 Temperature Pulse Rate 98 H 97 H 96 H Pulse Rate [ Anterior Bilateral] Pulse Rate [ From Monitor] Respiratory 16 16 16 Rate Respiratory Rate [Anterior Bilateral] Blood Pressure 182/92 136/76 136/76 O2 Sat by Pulse 92 92 92 Oximetry 08/10/21 08/10/21 08/10/21 10:46 11:00 11:15 Temperature Pulse Rate 97 H 96 H 94 H Pulse Rate [ Anterior Bilateral] Pulse Rate [ From Monitor] Respiratory 16 17 16 Rate Respiratory Rate [Anterior Bilateral] Blood Pressure 151/82 151/82 128/80 O2 Sat by Pulse 93 93 95 Oximetry 08/10/21 08/10/21 08/10/21 11:30 11:45 12:00 Temperature 98.7 F Pulse Rate 96 H 94 H 94 H Pulse Rate [ Anterior Bilateral] Pulse Rate [ From Monitor] Respiratory 16 16 16 Rate Respiratory Rate [Anterior Bilateral] Blood Pressure 128/80 132/77 132/77 O2 Sat by Pulse 94 94 94 Oximetry 08/10/21 12:31 Temperature Pulse Rate 96 H Pulse Rate [ Anterior Bilateral] Pulse Rate [ From Monitor] Respiratory Rate Respiratory Rate [Anterior Bilateral] Blood Pressure 130/82 O2 Sat by Pulse 96 Oximetry Constitutional: no acute distress, other (eldely obese female without increased respiratory effort at rest on MVS) Eyes: non-icteric ENT: oropharynx moist, other (ETT 24 cm [place]) Neck: supple, no lymphadenopathy, no JVD Effort: mildly labored Ascultation: Right: diminished breath sounds, Bilateral: wheezes (central), rhonchi Percussion: Bilateral: not dull Cardiovascular: regular rate and rhythm Gastrointestinal: normoactive bowel sounds, soft, non-tender, non-distended Integumentary: normal Extremities: no cyanosis, no edema, pulses normal, no ischemia or petechiae Neurologic: normal mental status, non-focal exam, pupils equal and round, CN II- XII normal Psychiatric: mood appropriate, affect normal CBC and BMP: 08/11/21 Unknown 08/11/21 04:30 ABG, PT/INR, D-dimer: ABG ABG pH 7.368 (7.320-7.450) 08/07/21 04:00 POC ABG pCO2 42.0 mmHg (32.0-48.0) 08/07/21 04:00 POC ABG pO2 80.1 mmHg (83-108) L 08/07/21 04:00 POC ABG HCO3 23.6 08/07/21 04:00 ABG O2 Saturation 95.2 (0-100) 08/07/21 04:00 PT/INR, D-dimer PT 14.2 Sec. (12.2-14.9) 08/10/21 05:20 INR 1.05 (0.87-1.13) 08/10/21 05:20 D-Dimer 852.47 ng/mlDDU (0-234) H 07/29/21 07:17 Abnormal lab findings: Abnormal Labs 07/27/21 07/27/21 07/27/21 22:57 22:57 22:57 WBC 20.3 H RBC Hgb Hct RDW Lymph % (Auto) Lymph # (Auto) [place] # (Auto) Seg Neutrophils % Seg Neuts % (Manual) 89.0 H Lymphocytes % (Manual) 9.0 L Nucleated RBC % Seg Neutrophils # Seg Neutrophils # Man 18.1 H Lymphocytes # (Manual) Monocytes # (Manual) D-Dimer ABG pH POC ABG pCO2 POC ABG pO2 ABG Hemoglobin ABG Oxyhemoglobin ABG Sodium ABG Potassium ABG Chloride ABG Glucose Carboxyhemoglobin Sodium Potassium 3.5 L Chloride 96.9 L Carbon Dioxide 20 L BUN 19 H Creatinine Glucose 204 H POC Glucose Lactic Acid 7.20 H* Calcium Magnesium AST 98 H ALT 90 H Total Protein Albumin Arterial Blood Glucose Arterial Blood Ionized Calcium Urine WBC (Auto) Urine Creatinine 07/28/21 07/28/21 07/28/21 01:31 07:49 10:00 WBC RBC Hgb Hct RDW Lymph % (Auto) Lymph # (Auto) [place] # (Auto) Seg Neutrophils % Seg Neuts % (Manual) Lymphocytes % (Manual) Nucleated RBC % Seg Neutrophils # Seg Neutrophils # Man Lymphocytes # (Manual) Monocytes # (Manual) D-Dimer ABG pH POC ABG pCO2 POC ABG pO2 ABG Hemoglobin ABG Oxyhemoglobin ABG Sodium ABG Potassium ABG Chloride ABG Glucose Carboxyhemoglobin Sodium Potassium Chloride Carbon Dioxide BUN Creatinine Glucose POC Glucose 194 H Lactic Acid 6.90 H* 6.70 H* Calcium Magnesium AST ALT Total Protein Albumin Arterial Blood Glucose Arterial Blood Ionized Calcium Urine WBC (Auto) Urine Creatinine 07/28/21 07/28/21 07/28/21 12:41 13:21 16:21 WBC RBC Hgb Hct RDW Lymph % (Auto) Lymph # (Auto) [place] # (Auto) Seg Neutrophils % Seg Neuts % (Manual) Lymphocytes % (Manual) Nucleated RBC % Seg Neutrophils # Seg Neutrophils # Man Lymphocytes # (Manual) Monocytes # (Manual) D-Dimer ABG pH POC ABG pCO2 POC ABG pO2 ABG Hemoglobin ABG Oxyhemoglobin ABG Sodium ABG Potassium ABG Chloride ABG Glucose Carboxyhemoglobin Sodium Potassium Chloride Carbon Dioxide BUN Creatinine Glucose POC Glucose 159 H 155 H Lactic Acid 6.10 H* Calcium Magnesium AST ALT Total Protein Albumin Arterial Blood Glucose Arterial Blood Ionized Calcium Urine WBC (Auto) Urine Creatinine 07/28/21 07/29/21 07/29/21 22:03 04:44 04:44 WBC 17.0 H RBC Hgb Hct RDW Lymph % (Auto) Lymph # (Auto) [place] # (Auto) Seg Neutrophils % Seg Neuts % (Manual) 82.0 H Lymphocytes % (Manual) 11.0 L Nucleated RBC % Seg Neutrophils # Seg Neutrophils # Man 13.9 H Lymphocytes # (Manual) Monocytes # (Manual) 1.0 H D-Dimer ABG pH POC ABG pCO2 POC ABG pO2 ABG Hemoglobin ABG Oxyhemoglobin ABG Sodium ABG Potassium ABG Chloride ABG Glucose Carboxyhemoglobin Sodium Potassium Chloride Carbon Dioxide BUN 23 H Creatinine Glucose 196 H POC Glucose 187 H Lactic Acid Calcium Magnesium AST ALT Total Protein Albumin Arterial Blood Glucose Arterial Blood Ionized Calcium Urine WBC (Auto) Urine Creatinine 07/29/21 07/29/21 07/29/21 06:56 07:17 07:17 WBC 26.1 H RBC Hgb Hct 43.3 H RDW 16.0 H Lymph % (Auto) Lymph # (Auto) [place] # (Auto) Seg Neutrophils % Seg Neuts % (Manual) 80.0 H Lymphocytes % (Manual) Nucleated RBC % Seg Neutrophils # Seg Neutrophils # Man 20.9 H Lymphocytes # (Manual) Monocytes # (Manual) D-Dimer ABG pH POC ABG pCO2 POC ABG pO2 ABG Hemoglobin ABG Oxyhemoglobin ABG Sodium ABG Potassium ABG Chloride ABG Glucose Carboxyhemoglobin Sodium Potassium Chloride Carbon Dioxide 20 L D BUN 23 H Creatinine Glucose 308 H POC Glucose 165 H Lactic Acid Calcium Magnesium AST ALT Total Protein Albumin Arterial Blood Glucose Arterial Blood Ionized Calcium Urine WBC (Auto) Urine Creatinine 07/29/21 07/29/21 07/29/21 07:17 09:16 10:30 WBC RBC Hgb Hct RDW Lymph % (Auto) Lymph # (Auto) [place] # (Auto) Seg Neutrophils % Seg Neuts % (Manual) Lymphocytes % (Manual) Nucleated RBC % Seg Neutrophils # Seg Neutrophils # Man Lymphocytes # (Manual) Monocytes # (Manual) D-Dimer 852.47 H ABG pH 7.236 L POC ABG pCO2 56.0 H POC ABG pO2 266.4 H ABG Hemoglobin ABG Oxyhemoglobin 99.1 H ABG Sodium 132.3 L ABG Potassium 4.9 H ABG Chloride ABG Glucose 202 H Carboxyhemoglobin 0.2 L Sodium Potassium Chloride Carbon Dioxide BUN Creatinine Glucose POC Glucose 271 H Lactic Acid Calcium Magnesium AST ALT Total Protein Albumin Arterial Blood Glucose 202 H Arterial Blood Ionized Calcium Urine WBC (Auto) Urine Creatinine 07/29/21 07/29/21 07/30/21 17:54 23:32 05:08 WBC RBC Hgb Hct RDW Lymph % (Auto) Lymph # (Auto) [place] # (Auto) Seg Neutrophils % Seg Neuts % (Manual) Lymphocytes % (Manual) Nucleated RBC % Seg Neutrophils # Seg Neutrophils # Man Lymphocytes # (Manual) Monocytes # (Manual) D-Dimer ABG pH POC ABG pCO2 POC ABG pO2 ABG Hemoglobin ABG Oxyhemoglobin ABG Sodium ABG Potassium ABG Chloride ABG Glucose Carboxyhemoglobin Sodium Potassium Chloride Carbon Dioxide BUN Creatinine Glucose POC Glucose 168 H 205 H 214 H Lactic Acid Calcium Magnesium AST ALT Total Protein Albumin Arterial Blood Glucose Arterial Blood Ionized Calcium Urine WBC (Auto) Urine Creatinine 07/30/21 07/30/21 07/30/21 06:01 11:32 17:34 WBC RBC Hgb Hct RDW Lymph % (Auto) Lymph # (Auto) [place] # (Auto) Seg Neutrophils % Seg Neuts % (Manual) Lymphocytes % (Manual) Nucleated RBC % Seg Neutrophils # Seg Neutrophils # Man Lymphocytes # (Manual) Monocytes # (Manual) D-Dimer ABG pH 7.480 H POC ABG pCO2 23.6 L POC ABG pO2 280.0 H ABG Hemoglobin ABG Oxyhemoglobin 99.3 H ABG Sodium 133.7 L ABG Potassium ABG Chloride ABG Glucose 232 H Carboxyhemoglobin 0 L Sodium Potassium Chloride Carbon Dioxide BUN Creatinine Glucose POC Glucose 207 H 239 H Lactic Acid Calcium Magnesium AST ALT Total Protein Albumin Arterial Blood Glucose 232 H Arterial Blood Ionized Calcium 4.4 L Urine WBC (Auto) Urine Creatinine 07/30/21 07/31/21 07/31/21 23:39 03:34 04:45 WBC 15.0 H RBC Hgb Hct RDW 15.5 H Lymph % (Auto) Lymph # (Auto) [place] # (Auto) Seg Neutrophils % Seg Neuts % (Manual) 89.0 H Lymphocytes % (Manual) 7.0 L Nucleated RBC % Seg Neutrophils # Seg Neutrophils # Man 13.4 H Lymphocytes # (Manual) 1.1 L Monocytes # (Manual) D-Dimer ABG pH 7.481 H POC ABG pCO2 31.8 L POC ABG pO2 ABG Hemoglobin ABG Oxyhemoglobin ABG Sodium 135.2 L ABG Potassium 3.3 L ABG Chloride ABG Glucose 188 H Carboxyhemoglobin 0.1 L Sodium Potassium Chloride Carbon Dioxide BUN Creatinine Glucose POC Glucose 176 H Lactic Acid Calcium Magnesium AST ALT Total Protein Albumin Arterial Blood Glucose 188 H Arterial Blood Ionized Calcium 4.4 L Urine WBC (Auto) Urine Creatinine 07/31/21 07/31/21 07/31/21 04:45 04:45 11:28 WBC RBC Hgb Hct RDW Lymph % (Auto) Lymph # (Auto) [place] # (Auto) Seg Neutrophils % Seg Neuts % (Manual) Lymphocytes % (Manual) Nucleated RBC % Seg Neutrophils # Seg Neutrophils # Man Lymphocytes # (Manual) Monocytes # (Manual) D-Dimer ABG pH POC ABG pCO2 POC ABG pO2 ABG Hemoglobin ABG Oxyhemoglobin ABG Sodium ABG Potassium ABG Chloride ABG Glucose Carboxyhemoglobin Sodium Potassium 3.4 L Chloride Carbon Dioxide BUN 61 H Creatinine 2.6 H D Glucose 176 H POC Glucose 195 H 245 H Lactic Acid Calcium Magnesium AST ALT Total Protein Albumin Arterial Blood Glucose Arterial Blood Ionized Calcium Urine WBC (Auto) Urine Creatinine 07/31/21 07/31/21 08/01/21 17:32 23:58 01:00 WBC RBC Hgb Hct RDW Lymph % (Auto) Lymph # (Auto) [place] # (Auto) Seg Neutrophils % Seg Neuts % (Manual) Lymphocytes % (Manual) Nucleated RBC % Seg Neutrophils # Seg Neutrophils # Man Lymphocytes # (Manual) Monocytes # (Manual) D-Dimer ABG pH POC ABG pCO2 POC ABG pO2 ABG Hemoglobin ABG Oxyhemoglobin ABG Sodium ABG Potassium ABG Chloride ABG Glucose 284 H Carboxyhemoglobin 0.3 L Sodium Potassium Chloride Carbon Dioxide BUN Creatinine Glucose POC Glucose 251 H 294 H Lactic Acid Calcium Magnesium AST ALT Total Protein Albumin Arterial Blood Glucose 284 H Arterial Blood Ionized Calcium Urine WBC (Auto) Urine Creatinine 08/01/21 08/01/21 08/01/21 05:50 05:50 06:11 WBC 16.2 H RBC Hgb Hct RDW 15.5 H Lymph % (Auto) Lymph # (Auto) [place] # (Auto) Seg Neutrophils % Seg Neuts % (Manual) 93.0 H Lymphocytes % (Manual) 2.0 L Nucleated RBC % 3.0 H Seg Neutrophils # Seg Neutrophils # Man 15.1 H Lymphocytes # (Manual) 0.3 L Monocytes # (Manual) D-Dimer ABG pH POC ABG pCO2 POC ABG pO2 ABG Hemoglobin ABG Oxyhemoglobin ABG Sodium ABG Potassium ABG Chloride ABG Glucose Carboxyhemoglobin Sodium Potassium Chloride Carbon Dioxide BUN 64 H Creatinine 1.9 H Glucose 277 H POC Glucose 256 H Lactic Acid Calcium Magnesium AST ALT Total Protein Albumin Arterial Blood Glucose Arterial Blood Ionized Calcium Urine WBC (Auto) Urine Creatinine 08/01/21 08/01/21 08/01/21 11:39 17:25 23:53 WBC RBC Hgb Hct RDW Lymph % (Auto) Lymph # (Auto) [place] # (Auto) Seg Neutrophils % Seg Neuts % (Manual) Lymphocytes % (Manual) Nucleated RBC % Seg Neutrophils # Seg Neutrophils # Man Lymphocytes # (Manual) Monocytes # (Manual) D-Dimer ABG pH POC ABG pCO2 POC ABG pO2 ABG Hemoglobin ABG Oxyhemoglobin ABG Sodium ABG Potassium ABG Chloride ABG Glucose Carboxyhemoglobin Sodium Potassium Chloride Carbon Dioxide BUN Creatinine Glucose POC Glucose 289 H 275 H 327 H Lactic Acid Calcium Magnesium AST ALT Total Protein Albumin Arterial Blood Glucose Arterial Blood Ionized Calcium Urine WBC (Auto) Urine Creatinine 08/01/21 08/02/21 08/02/21 Unknown 04:00 12:03 WBC RBC Hgb Hct RDW Lymph % (Auto) Lymph # (Auto) [place] # (Auto) Seg Neutrophils % Seg Neuts % (Manual) Lymphocytes % (Manual) Nucleated RBC % Seg Neutrophils # Seg Neutrophils # Man Lymphocytes # (Manual) Monocytes # (Manual) D-Dimer ABG pH POC ABG pCO2 POC ABG pO2 ABG Hemoglobin ABG Oxyhemoglobin ABG Sodium ABG Potassium ABG Chloride ABG Glucose 325 H Carboxyhemoglobin 0.4 L Sodium Potassium Chloride Carbon Dioxide BUN Creatinine Glucose POC Glucose 209 H Lactic Acid Calcium Magnesium AST ALT Total Protein Albumin Arterial Blood Glucose 325 H Arterial Blood Ionized Calcium Urine WBC (Auto) Urine Creatinine 125.6 H 08/02/21 08/02/21 08/02/21 15:30 17:03 23:17 WBC RBC Hgb Hct RDW Lymph % (Auto) Lymph # (Auto) [place] # (Auto) Seg Neutrophils % Seg Neuts % (Manual) Lymphocytes % (Manual) Nucleated RBC % Seg Neutrophils # Seg Neutrophils # Man Lymphocytes # (Manual) Monocytes # (Manual) D-Dimer ABG pH POC ABG pCO2 POC ABG pO2 ABG Hemoglobin ABG Oxyhemoglobin ABG Sodium ABG Potassium ABG Chloride ABG Glucose Carboxyhemoglobin Sodium Potassium Chloride Carbon Dioxide BUN Creatinine Glucose POC Glucose 210 H 265 H Lactic Acid Calcium Magnesium AST ALT Total Protein Albumin Arterial Blood Glucose Arterial Blood Ionized Calcium Urine WBC (Auto) 47.0 H Urine Creatinine 08/02/21 08/02/21 08/03/21 Unknown Unknown 04:17 WBC 14.1 H RBC Hgb Hct RDW 16.3 H Lymph % (Auto) 5.1 L Lymph # (Auto) 0.7 L [place] # (Auto) 0.9 H Seg Neutrophils % 88.7 H Seg Neuts % (Manual) Lymphocytes % (Manual) Nucleated RBC % Seg Neutrophils # 12.5 H Seg Neutrophils # Man Lymphocytes # (Manual) Monocytes # (Manual) D-Dimer ABG pH POC ABG pCO2 POC ABG pO2 ABG Hemoglobin ABG Oxyhemoglobin ABG Sodium ABG Potassium ABG Chloride ABG Glucose Carboxyhemoglobin Sodium Potassium Chloride Carbon Dioxide BUN 72 H 72 H Creatinine 1.8 H 1.6 H Glucose 307 H 263 H POC Glucose Lactic Acid Calcium Magnesium AST ALT Total Protein Albumin Arterial Blood Glucose Arterial Blood Ionized Calcium Urine WBC (Auto) Urine Creatinine 08/03/21 08/03/21 08/03/21 04:17 05:30 08:30 WBC 13.9 H RBC Hgb Hct RDW 16.0 H Lymph % (Auto) Lymph # (Auto) [place] # (Auto) Seg Neutrophils % Seg Neuts % (Manual) Lymphocytes % (Manual) Nucleated RBC % Seg Neutrophils # Seg Neutrophils # Man Lymphocytes # (Manual) Monocytes # (Manual) D-Dimer ABG pH POC ABG pCO2 POC ABG pO2 ABG Hemoglobin ABG Oxyhemoglobin ABG Sodium ABG Potassium ABG Chloride ABG Glucose Carboxyhemoglobin Sodium Potassium Chloride Carbon Dioxide BUN Creatinine Glucose POC Glucose 280 H Lactic Acid Calcium Magnesium 3.00 H AST ALT Total Protein Albumin Arterial Blood Glucose Arterial Blood Ionized Calcium Urine WBC (Auto) Urine Creatinine 08/03/21 08/03/21 08/03/21 12:14 13:39 15:11 WBC RBC Hgb Hct RDW Lymph % (Auto) Lymph # (Auto) [place] # (Auto) Seg Neutrophils % Seg Neuts % (Manual) Lymphocytes % (Manual) Nucleated RBC % Seg Neutrophils # Seg Neutrophils # Man Lymphocytes # (Manual) Monocytes # (Manual) D-Dimer ABG pH POC ABG pCO2 POC ABG pO2 ABG Hemoglobin ABG Oxyhemoglobin ABG Sodium ABG Potassium ABG Chloride ABG Glucose 306 H Carboxyhemoglobin 0.3 L Sodium Potassium Chloride Carbon Dioxide BUN Creatinine Glucose POC Glucose 287 H Lactic Acid 2.10 H* Calcium Magnesium AST ALT Total Protein Albumin Arterial Blood Glucose 306 H Arterial Blood Ionized Calcium Urine WBC (Auto) Urine Creatinine 08/03/21 08/03/21 08/04/21 16:52 23:08 04:00 WBC RBC Hgb Hct RDW Lymph % (Auto) Lymph # (Auto) [place] # (Auto) Seg Neutrophils % Seg Neuts % (Manual) Lymphocytes % (Manual) Nucleated RBC % Seg Neutrophils # Seg Neutrophils # Man Lymphocytes # (Manual) Monocytes # (Manual) D-Dimer ABG pH POC ABG pCO2 54.3 H POC ABG pO2 82.2 L ABG Hemoglobin ABG Oxyhemoglobin ABG Sodium 145.1 H ABG Potassium 5.0 H ABG Chloride ABG Glucose 316 H Carboxyhemoglobin 0.3 L Sodium Potassium Chloride Carbon Dioxide BUN Creatinine Glucose POC Glucose 282 H 289 H Lactic Acid Calcium Magnesium AST ALT Total Protein Albumin Arterial Blood Glucose 316 H Arterial Blood Ionized Calcium Urine WBC (Auto) Urine Creatinine 08/04/21 08/04/21 08/04/21 04:38 04:38 05:19 WBC 17.7 H RBC Hgb Hct RDW 16.5 H Lymph % (Auto) Lymph # (Auto) [place] # (Auto) Seg Neutrophils % Seg Neuts % (Manual) Lymphocytes % (Manual) Nucleated RBC % Seg Neutrophils # Seg Neutrophils # Man Lymphocytes # (Manual) Monocytes # (Manual) D-Dimer ABG pH POC ABG pCO2 POC ABG pO2 ABG Hemoglobin ABG Oxyhemoglobin ABG Sodium ABG Potassium ABG Chloride ABG Glucose Carboxyhemoglobin Sodium Potassium Chloride 108.3 H Carbon Dioxide BUN 76 H Creatinine 1.4 H Glucose 310 H POC Glucose 268 H Lactic Acid Calcium Magnesium 2.70 H AST ALT Total Protein Albumin Arterial Blood Glucose Arterial Blood Ionized Calcium Urine WBC (Auto) Urine Creatinine 08/04/21 08/04/21 08/04/21 11:48 16:41 23:49 WBC RBC Hgb Hct RDW Lymph % (Auto) Lymph # (Auto) [place] # (Auto) Seg Neutrophils % Seg Neuts % (Manual) Lymphocytes % (Manual) Nucleated RBC % Seg Neutrophils # Seg Neutrophils # Man Lymphocytes # (Manual) Monocytes # (Manual) D-Dimer ABG pH POC ABG pCO2 POC ABG pO2 ABG Hemoglobin ABG Oxyhemoglobin ABG Sodium ABG Potassium ABG Chloride ABG Glucose Carboxyhemoglobin Sodium Potassium Chloride Carbon Dioxide BUN Creatinine Glucose POC Glucose 197 H 208 H 209 H Lactic Acid Calcium Magnesium AST ALT Total Protein Albumin Arterial Blood Glucose Arterial Blood Ionized Calcium Urine WBC (Auto) Urine Creatinine 08/05/21 08/05/21 08/05/21 04:00 04:50 04:50 WBC 19.0 H RBC Hgb Hct RDW 17.0 H Lymph % (Auto) Lymph # (Auto) [place] # (Auto) Seg Neutrophils % Seg Neuts % (Manual) 75.0 H Lymphocytes % (Manual) 2.0 L Nucleated RBC % Seg Neutrophils # Seg Neutrophils # Man 14.3 H Lymphocytes # (Manual) 0.4 L Monocytes # (Manual) 1.0 H D-Dimer ABG pH 7.314 L POC ABG pCO2 48.9 H POC ABG pO2 ABG Hemoglobin ABG Oxyhemoglobin ABG Sodium ABG Potassium 5.0 H ABG Chloride 109.0 H ABG Glucose 234 H Carboxyhemoglobin 0.4 L Sodium Potassium 5.2 H Chloride 110.0 H Carbon Dioxide BUN 90 H Creatinine 1.8 H Glucose 235 H POC Glucose Lactic Acid Calcium Magnesium 2.60 H AST ALT Total Protein Albumin Arterial Blood Glucose 234 H Arterial Blood Ionized Calcium Urine WBC (Auto) Urine Creatinine 08/05/21 08/05/21 08/05/21 06:05 12:02 17:08 WBC RBC Hgb Hct RDW Lymph % (Auto) Lymph # (Auto) [place] # (Auto) Seg Neutrophils % Seg Neuts % (Manual) Lymphocytes % (Manual) Nucleated RBC % Seg Neutrophils # Seg Neutrophils # Man Lymphocytes # (Manual) Monocytes # (Manual) D-Dimer ABG pH POC ABG pCO2 POC ABG pO2 ABG Hemoglobin ABG Oxyhemoglobin ABG Sodium ABG Potassium ABG Chloride ABG Glucose Carboxyhemoglobin Sodium Potassium Chloride Carbon Dioxide BUN Creatinine Glucose POC Glucose 225 H 193 H 263 H Lactic Acid Calcium Magnesium AST ALT Total Protein Albumin Arterial Blood Glucose Arterial Blood Ionized Calcium Urine WBC (Auto) Urine Creatinine 08/05/21 08/06/21 08/06/21 23:34 05:00 05:00 WBC 16.8 H RBC 3.64 L Hgb Hct RDW 16.6 H Lymph % (Auto) Lymph # (Auto) [place] # (Auto) Seg Neutrophils % Seg Neuts % (Manual) Lymphocytes % (Manual) Nucleated RBC % Seg Neutrophils # Seg Neutrophils # Man Lymphocytes # (Manual) Monocytes # (Manual) D-Dimer ABG pH POC ABG pCO2 POC ABG pO2 ABG Hemoglobin ABG Oxyhemoglobin ABG Sodium ABG Potassium ABG Chloride ABG Glucose Carboxyhemoglobin Sodium Potassium Chloride 109.3 H Carbon Dioxide BUN 89 H Creatinine 1.6 H Glucose 197 H POC Glucose 224 H Lactic Acid Calcium 8.2 L Magnesium AST ALT Total Protein Albumin Arterial Blood Glucose Arterial Blood Ionized Calcium Urine WBC (Auto) Urine Creatinine 08/06/21 08/06/21 08/06/21 05:26 11:38 16:30 WBC RBC Hgb Hct RDW Lymph % (Auto) Lymph # (Auto) [place] # (Auto) Seg Neutrophils % Seg Neuts % (Manual) Lymphocytes % (Manual) Nucleated RBC % Seg Neutrophils # Seg Neutrophils # Man Lymphocytes # (Manual) Monocytes # (Manual) D-Dimer ABG pH POC ABG pCO2 POC ABG pO2 ABG Hemoglobin ABG Oxyhemoglobin ABG Sodium ABG Potassium ABG Chloride ABG Glucose Carboxyhemoglobin Sodium Potassium Chloride Carbon Dioxide BUN Creatinine Glucose POC Glucose 168 H 160 H 135 H Lactic Acid Calcium Magnesium AST ALT Total Protein Albumin Arterial Blood Glucose Arterial Blood Ionized Calcium Urine WBC (Auto) Urine Creatinine 08/06/21 08/07/21 08/07/21 23:08 04:00 04:00 WBC 13.6 H RBC 3.30 L Hgb 9.5 L Hct 29.2 L RDW 16.7 H Lymph % (Auto) Lymph # (Auto) [place] # (Auto) Seg Neutrophils % Seg Neuts % (Manual) Lymphocytes % (Manual) Nucleated RBC % Seg Neutrophils # Seg Neutrophils # Man Lymphocytes # (Manual) Monocytes # (Manual) D-Dimer ABG pH POC ABG pCO2 POC ABG pO2 ABG Hemoglobin ABG Oxyhemoglobin ABG Sodium ABG Potassium ABG Chloride ABG Glucose Carboxyhemoglobin Sodium 146 H Potassium Chloride 111.4 H Carbon Dioxide BUN 78 H Creatinine 1.5 H Glucose 143 H POC Glucose 125 H Lactic Acid Calcium 8.2 L Magnesium AST ALT Total Protein Albumin Arterial Blood Glucose Arterial Blood Ionized Calcium Urine WBC (Auto) Urine Creatinine 08/07/21 08/07/21 08/07/21 04:00 05:16 12:12 WBC RBC Hgb Hct RDW Lymph % (Auto) Lymph # (Auto) [place] # (Auto) Seg Neutrophils % Seg Neuts % (Manual) Lymphocytes % (Manual) Nucleated RBC % Seg Neutrophils # Seg Neutrophils # Man Lymphocytes # (Manual) Monocytes # (Manual) D-Dimer ABG pH POC ABG pCO2 POC ABG pO2 80.1 L ABG Hemoglobin 9.8 L ABG Oxyhemoglobin ABG Sodium ABG Potassium ABG Chloride 111.0 H ABG Glucose 157 H Carboxyhemoglobin 0.3 L Sodium Potassium Chloride Carbon Dioxide BUN Creatinine Glucose POC Glucose 144 H 125 H Lactic Acid Calcium Magnesium AST ALT Total Protein Albumin Arterial Blood Glucose 157 H Arterial Blood Ionized Calcium 4.5 L Urine WBC (Auto) Urine Creatinine 08/07/21 08/08/21 08/08/21 23:20 04:47 06:00 WBC 13.8 H RBC 3.19 L Hgb 9.3 L Hct 28.4 L RDW 16.4 H Lymph % (Auto) Lymph # (Auto) [place] # (Auto) Seg Neutrophils % Seg Neuts % (Manual) Lymphocytes % (Manual) Nucleated RBC % Seg Neutrophils # Seg Neutrophils # Man Lymphocytes # (Manual) Monocytes # (Manual) D-Dimer ABG pH POC ABG pCO2 POC ABG pO2 ABG Hemoglobin ABG Oxyhemoglobin ABG Sodium ABG Potassium ABG Chloride ABG Glucose Carboxyhemoglobin Sodium Potassium Chloride Carbon Dioxide BUN Creatinine Glucose POC Glucose 118 H 130 H Lactic Acid Calcium Magnesium AST ALT Total Protein Albumin Arterial Blood Glucose Arterial Blood Ionized Calcium Urine WBC (Auto) Urine Creatinine 08/08/21 08/08/21 08/08/21 06:00 11:33 17:54 WBC RBC Hgb Hct RDW Lymph % (Auto) Lymph # (Auto) [place] # (Auto) Seg Neutrophils % Seg Neuts % (Manual) Lymphocytes % (Manual) Nucleated RBC % Seg Neutrophils # Seg Neutrophils # Man Lymphocytes # (Manual) Monocytes # (Manual) D-Dimer ABG pH POC ABG pCO2 POC ABG pO2 ABG Hemoglobin ABG Oxyhemoglobin ABG Sodium ABG Potassium ABG Chloride ABG Glucose Carboxyhemoglobin Sodium 147 H Potassium Chloride 112.4 H Carbon Dioxide BUN 71 H Creatinine 1.4 H Glucose 124 H POC Glucose 126 H 124 H Lactic Acid Calcium Magnesium AST ALT Total Protein Albumin Arterial Blood Glucose Arterial Blood Ionized Calcium Urine WBC (Auto) Urine Creatinine 08/08/21 08/09/21 08/09/21 23:41 06:06 10:00 WBC RBC Hgb Hct RDW Lymph % (Auto) Lymph # (Auto) [place] # (Auto) Seg Neutrophils % Seg Neuts % (Manual) Lymphocytes % (Manual) Nucleated RBC % Seg Neutrophils # Seg Neutrophils # Man Lymphocytes # (Manual) Monocytes # (Manual) D-Dimer ABG pH POC ABG pCO2 POC ABG pO2 ABG Hemoglobin ABG Oxyhemoglobin ABG Sodium ABG Potassium ABG Chloride ABG Glucose Carboxyhemoglobin Sodium 146 H Potassium Chloride 111.3 H Carbon Dioxide BUN 72 H Creatinine 1.5 H Glucose 119 H POC Glucose 119 H 127 H Lactic Acid Calcium Magnesium AST ALT 69 H Total Protein 5.2 L Albumin 2.6 L Arterial Blood Glucose Arterial Blood Ionized Calcium Urine WBC (Auto) Urine Creatinine 08/09/21 08/09/21 08/09/21 10:00 11:34 16:50 WBC 13.0 H RBC 2.88 L Hgb 8.5 L Hct 25.8 L RDW 16.5 H Lymph % (Auto) Lymph # (Auto) [place] # (Auto) Seg Neutrophils % Seg Neuts % (Manual) Lymphocytes % (Manual) Nucleated RBC % Seg Neutrophils # Seg Neutrophils # Man Lymphocytes # (Manual) Monocytes # (Manual) D-Dimer ABG pH POC ABG pCO2 POC ABG pO2 ABG Hemoglobin ABG Oxyhemoglobin ABG Sodium ABG Potassium ABG Chloride ABG Glucose Carboxyhemoglobin Sodium Potassium Chloride Carbon Dioxide BUN Creatinine Glucose POC Glucose 114 H 117 H Lactic Acid Calcium Magnesium AST ALT Total Protein Albumin Arterial Blood Glucose Arterial Blood Ionized Calcium Urine WBC (Auto) Urine Creatinine 08/10/21 08/10/21 08/10/21 00:12 05:20 05:20 WBC 13.2 H RBC 2.92 L Hgb 8.4 L Hct 25.9 L RDW 16.7 H Lymph % (Auto) Lymph # (Auto) [place] # (Auto) Seg Neutrophils % Seg Neuts % (Manual) Lymphocytes % (Manual) Nucleated RBC % Seg Neutrophils # Seg Neutrophils # Man Lymphocytes # (Manual) Monocytes # (Manual) D-Dimer ABG pH POC ABG pCO2 POC ABG pO2 ABG Hemoglobin ABG Oxyhemoglobin ABG Sodium ABG Potassium ABG Chloride ABG Glucose Carboxyhemoglobin Sodium 147 H Potassium Chloride 111.8 H Carbon Dioxide BUN 68 H Creatinine 1.4 H Glucose POC Glucose 114 H Lactic Acid Calcium Magnesium AST ALT Total Protein Albumin Arterial Blood Glucose Arterial Blood Ionized Calcium Urine WBC (Auto) Urine Creatinine Chest x-ray: image reviewed (right lung white out) Allied health notes reviewed: nursing
--- NOTE | 2021-08-10 14:58 | Progress Note ---
Assessment and Plan Assessment and plan: This is a 66-year-old female with HTN, DM, HLD and COPD admitted for acute hypoxic respiratory failure, COPD exacerbation, pneumonia and left lower leg DVT Neuro: Acute metabolic encephalopathy; agitatin -Sedated with Versed and fentanyl, Seroquel -daily SAT limited by agitation and hypoxia -RASS goal -2 to -3 -Bilateral restraints for safety -update family daily on plan of care Cardio: h/o HTN, s/p cardiac arrest, h/o HLD -Echocardiogram completed-> EF 50 to 55% with mild diastolic dysfunction -Blood pressure monitor per protocol -MAP goal > 65 -Patient had cardiac arrest on 07/29 and was intubated -Antihypertensives prn ST Respiratory: Acute hypoxic respiratory failure, COPD exacerbation; lung ca with mediastinal mass -CCM consulted, appreciate recommendations - S/P TRACH AND PEG -VAP bundle -Daily SBT and SAT trials as tolerated -Intubated with 7.50 ETT at 22 at the lips on 07/29 see RT flow sheet for vent settings -Daily ABG and CXR -Continue SPO2 monitoring -FOR TRACH AND PEG SUN AM; NPO PM; HOLD LOVENOX AT AR GI: constipation -TF-- NPO P MN -nutrition following -BR -PPI : Acute kidney injury likely 2/2 vasomotor nephropathy/pre-renal; HYPERNA -Nephrology consulted, appreciate recommendations -08/01 FeNA calculated at 0.13-> indicating prerenal -trend Cr -Strict intake and output -Avoid nephrotoxic medications -Renally dose medications -Elizabeth in place; Elizabeth changed on 08/05 -follow and replace electrolytes as needed -FWF FOR NA ID: Acute sepsis, pneumonia; febrile -ABX therapy: Cefepime -07/27 BC x2 with no growth after 4 days -07/29 tracheal aspirate with no growth -follow culture data -Monitor CBCs and fever curve -febrile to 100 -ID following Heme: Left lower leg DVT, leukocytosis; lung ca with med mass -cont Lovenox- HOLD AT AR -SCDs to bilateral lower extremities while in bed -Trend CBC -evidenced on BLE US -heme onc following Oncology: h/o breast cancer, Lung mass, breast carcinoma with metastasis -CXR shows suspicious nodular density at the left base -08/02 bronchoscopy -Heme/oncology consulted, appreciate recommendations -08/02 bronchoscopy completed; washings and brush sent for cytology, cell count and AFB-> preliminary results obtained, see report -08/02: AFB from bronc negative -08/02 PTH surgical report: Biomarker ER, GA, HER-2 negative, TTF1 and HMB 4 5 are not expressed -CEA low -Heme onc following ? transfer to higher level of care oncologist Dr. Wade at [place] at [phone] Endo: h/o DM; stress hyperglycemia -SSI -Avoid hypoglycemia -Lantus, titrate as needed The high probability of a clinically significant, sudden or life threatening deterioration of the [multi] system(s) required my full and direct attention, intervention and personal management. The aggregate critical care time was [60] minutes. This time is in addition to time spent performing reported procedures but includes the following: [x] Data Review and interpretation [x] Patient assessment and monitoring of vital signs [x] Documentation [x] Medication orders and management Disposition Plan: icu Total Time Spent with Patient (Minutes): 60 very guarded prognosis. History Interval history: This is a 66-year-old female with HTN, DM, HLD and COPD who presented to emergency department on 07/28 with complaints of difficulty in breathing ongoing for the past few days via EMS. En route she was given Solu-Medrol IV magnesium and albuterol nebulizing treatment. Upon arrival to emergency department patient had multiple rounds of embolizing treatments and was subsequently placed on BiPAP with some improvement. Patient has been fully vaccinated. Work-up in the emergency department revealed CXR suspicious for right-sided pneumonia, nodular density in the left base and increased interstitial markings which may be chronic. Patient was admitted to the hospitalist service with electrolyte imbalances, leukocytosis, COPD exacerbation, hypoxia and possible pneumonia. 07/29/2021. Patient seen this morning with Shabbir-Chavira respiration/agonal breathing. CODE BLUE was called and patient was intubated and placed on mechanical ventilation. Patient transferred to ICU. Critical care/pulmonary consulted. Patient currently with AC mode rate of 30, FiO2 100%, PEEP of 12. Continue IV antibiotics. Consult ID and oncology for further evaluation. Patient will likely need bronchoscopy for further evaluation of the lung mass. Doppler ultrasound revealedLLE DVT. Start anticoagulation. 07/30/2021. Patient appears much improved and more responsive this morning. Patient currently with AC mode ventilation rate of 24, tidal volume 450, PEEP of 8 and FiO2 35%. Spontaneous breathing trials with possible extubation today per pulmonary. Bronchoscopy per pulmonary. Continue Lovenox twice daily for DVT. Continue IV antibiotics for sepsis/pneumonia. ID consultation pending. Follow-up CEA, CA 15-3, [place] 2729. 07/31/2021. Echocardiogram reveals left ventricular size and function are normal. EF 50 to 55% with mild diastolic dysfunction. Patient currently with CPAP/PSV trial 11/02. Anticipate extubation today per pulmonary. Bronchoscopy per pulmonary. Continue Lovenox twice daily for DVT. Continue IV antibiotics for sepsis/pneumonia. ID consultation pending. Follow-up CEA, CA 15-3, CA 2729. 08/01: ALIYAH 08/02: Patient had a bronchoscopy today. Cell count, cytology and AFB sent from samples. Patient remains sedated on fentanyl and Versed. Patient and daughter Rosana were updated. 08/03: [facility] follow-up on [facility] specimens and was informed patient specimens indicate cancer. Communicated to Dr. Abbott and he stated he will update family. 08/04: Patient remains sedated on fentanyl and Versed, patient has moments of agitation with any stimulation. CPAP trial unable to be completed today due to agitation. 08/05: Patient had low urine output overnight and Elizabeth catheter was changed this a.m. with 2 L of urine output received. Patient did have a increase in creatinine however this may have been obstructive process and nephrology is aware. Hematology/oncology spoke to family who wishes for everything to be done despite bronchial washings with cancer cells. [facility] contacted patient's oncologist to help facilitate transfer. We attempted to hold sedation for CPAP trial however patient became extremely agitated and sedation was restarted. 08/06: Surgery consulted for possible trach. Leukocytosis and renal function slowly improving. No acute events reported overnight. 08/07: Creatinine continues to decrease, patient has slight hyper natremia and hyperchloremia. Patient remains on fentanyl and Versed with periods of agitation. Increasing free water flushes. 08-08 improving cr; febrile; family wants full care/full code- heme onc following 08-09 LOW GRADE FEVERS; FOR TRACH/PEG WED AM 08/10: Patient seen and examined, had Bronchoscopy and Trach and PEG today, follow report. Continue supportive care. Hospitalist Physical - Physical exam Narrative exam: General appearance: Present: no acute distress, well-nourished, - EENT Eyes: Present: PERRL, EOM intact ENT: clear oral mucosa. Trach - Neck Neck: Present: supple, normal ROM - Respiratory Respiratory effort: normal - Cardiovascular Rhythm: regular - Extremities Extremities: no ischemia - Abdominal General gastrointestinal: soft - Integumentary Integumentary: Present: clear, warm, dry - Psychiatric Psychiatric: other - Neurologic Neurologic: other - Allied Health Allied health notes reviewed: nursing, RT, social work, case management - Constitutional Vitals: Temp Pulse Resp BP Pulse Ox 98.7 F 95 H 16 119/80 95 08/10/21 12:00 08/10/21 13:15 08/10/21 13:15 08/10/21 13:15 08/10/21 13:15 General appearance: Present: no acute distress, well-nourished, other Results - Labs CBC & Chem 7: 08/10/21 05:20 08/10/21 05:20 Labs: Laboratory Last Values WBC 13.2 K/mm3 (4.5-11.0) H 08/10/21 05:20 RBC 2.92 M/mm3 (3.65-5.03) L 08/10/21 05:20 Hgb 8.4 gm/dl (10.1-14.3) L 08/10/21 05:20 Hct 25.9 % (30.3-42.9) L 08/10/21 05:20 MCV 89 fl (79-97) 08/10/21 05:20 MCH 29 pg (28-32) 08/10/21 05:20 MCHC 32 % (30-34) 08/10/21 05:20 RDW 16.7 % (13.2-15.2) H 08/10/21 05:20 Plt Count 217 K/mm3 (140-440) 08/10/21 05:20 Lymph % (Auto) 5.1 % (13.4-35.0) L 08/02/21 Unknown Milam % (Auto) 6.1 % (0.0-7.3) 08/02/21 Unknown Eos % (Auto) 0.0 % (0.0-4.3) 08/02/21 Unknown Baso % (Auto) 0.1 % (0.0-1.8) 08/02/21 Unknown Lymph # (Auto) 0.7 K/mm3 (1.2-5.4) L 08/02/21 Unknown Milam # (Auto) 0.9 K/mm3 (0.0-0.8) H 08/02/21 Unknown Eos # (Auto) 0.0 K/mm3 (0.0-0.4) 08/02/21 Unknown Baso # (Auto) 0.0 K/mm3 (0.0-0.1) 08/02/21 Unknown Add Manual Diff Complete 08/05/21 04:50 Total Counted 100 08/05/21 04:50 Seg Neutrophils % 88.7 % (40.0-70.0) H 08/02/21 Unknown Seg Neuts % (Manual) 75.0 % (40.0-70.0) H 08/05/21 04:50 Band Neutrophils % 8.0 % 08/05/21 04:50 Lymphocytes % (Manual) 2.0 % (13.4-35.0) L 08/05/21 04:50 Monocytes % (Manual) 5.0 % (0.0-7.3) 08/05/21 04:50 Eosinophils % (Manual) 1.0 % (0.0-4.3) 08/05/21 04:50 Metamyelocytes % 6.0 % 08/05/21 04:50 Myelocytes % 3.0 % 08/05/21 04:50 Nucleated RBC % Not Reportable 08/05/21 04:50 Seg Neutrophils # 12.5 K/mm3 (1.8-7.7) H 08/02/21 Unknown Seg Neutrophils # Man 14.3 K/mm3 (1.8-7.7) H 08/05/21 04:50 Band Neutrophils # 1.5 K/mm3 08/05/21 04:50 Lymphocytes # (Manual) 0.4 K/mm3 (1.2-5.4) L 08/05/21 04:50 Abs React Lymphs (Man) 0.0 K/mm3 08/05/21 04:50 Monocytes # (Manual) 1.0 K/mm3 (0.0-0.8) H 08/05/21 04:50 Eosinophils # (Manual) 0.2 K/mm3 (0.0-0.4) 08/05/21 04:50 Basophils # (Manual) 0.0 K/mm3 (0.0-0.1) 08/05/21 04:50 Metamyelocytes # 1.1 K/mm3 08/05/21 04:50 Myelocytes # 0.6 K/mm3 08/05/21 04:50 Promyelocytes # 0.0 K/mm3 08/05/21 04:50 Blast Cells # 0.0 K/mm3 08/05/21 04:50 WBC Morphology Not Reportable 08/05/21 04:50 Hypersegmented Neuts Not Reportable 08/05/21 04:50 Hyposegmented Neuts Not Reportable 08/05/21 04:50 Hypogranular Neuts Not Reportable 08/05/21 04:50 Smudge Cells Not Reportable 08/05/21 04:50 Toxic Granulation Not Reportable 08/05/21 04:50 Toxic Vacuolation Not Reportable 08/05/21 04:50 Dohle Bodies Not Reportable 08/05/21 04:50 Pelger-Huet Anomaly Not Reportable 08/05/21 04:50 Beryl Rods Not Reportable 08/05/21 04:50 Platelet Estimate Consistent w auto 08/05/21 04:50 Clumped Platelets Not Reportable 08/05/21 04:50 Plt Clumps, EDTA Not Reportable 08/05/21 04:50 Large Platelets Not Reportable 08/05/21 04:50 Giant Platelets Not Reportable 08/05/21 04:50 Platelet Satelliting Not Reportable 08/05/21 04:50 Plt Morphology Comment Not Reportable 08/05/21 04:50 RBC Morphology Not Reportable 08/05/21 04:50 Dimorphic RBCs Not Reportable 08/05/21 04:50 Polychromasia Not Reportable 08/05/21 04:50 Hypochromasia Not Reportable 08/05/21 04:50 Poikilocytosis Not Reportable 08/05/21 04:50 Anisocytosis Not Reportable 08/05/21 04:50 Microcytosis Not Reportable 08/05/21 04:50 Macrocytosis Not Reportable 08/05/21 04:50 Spherocytes Not Reportable 08/05/21 04:50 Pappenheimer Bodies Not Reportable 08/05/21 04:50 Sickle Cells Not Reportable 08/05/21 04:50 Target Cells Not Reportable 08/05/21 04:50 Tear Drop Cells Not Reportable 08/05/21 04:50 Ovalocytes Few 08/05/21 04:50 Helmet Cells Not Reportable 08/05/21 04:50 Paul-Delphos Bodies Not Reportable 08/05/21 04:50 Dania Rings Not Reportable 08/05/21 04:50 [place] Cells Not Reportable 08/05/21 04:50 Bite Cells Not Reportable 08/05/21 04:50 Crenated Cell Not Reportable 08/05/21 04:50 Elliptocytes Not Reportable 08/05/21 04:50 Acanthocytes (Spur) Not Reportable 08/05/21 04:50 Rouleaux Not Reportable 08/05/21 04:50 Hemoglobin C Crystals Not Reportable 08/05/21 04:50 Schistocytes Not Reportable 08/05/21 04:50 Malaria parasites Not Reportable 08/05/21 04:50 Gurmeet Bodies Not Reportable 08/05/21 04:50 Hem Pathologist Commnt No 08/05/21 04:50 PT 14.2 Sec. (12.2-14.9) 08/10/21 05:20 INR 1.05 (0.87-1.13) 08/10/21 05:20 APTT 29.9 Sec. (24.2-36.6) 08/10/21 05:20 D-Dimer 852.47 ng/mlDDU (0-234) H 07/29/21 07:17 ABG pH 7.368 (7.320-7.450) 08/07/21 04:00 POC ABG pCO2 42.0 mmHg (32.0-48.0) 08/07/21 04:00 POC ABG pO2 80.1 mmHg (83-108) L 08/07/21 04:00 POC ABG HCO3 23.6 08/07/21 04:00 ABG O2 Saturation 95.2 (0-100) 08/07/21 04:00 POC ABG Base Excess -1.6 08/07/21 04:00 ABG Hemoglobin 9.8 (12.0-17.5) L 08/07/21 04:00 ABG Oxyhemoglobin 94.9 (94-98) 08/07/21 04:00 ABG Methemoglobin 0 (0.0-1.5) 08/07/21 04:00 ABG Sodium 142.1 mmol/L (136.0-145.0) 08/07/21 04:00 ABG Potassium 3.9 mmol/L (3.40-4.50) 08/07/21 04:00 ABG Chloride 111.0 mmol/L (98-107) H 08/07/21 04:00 ABG Glucose 157 mg/dL (65-95) H 08/07/21 04:00 Carboxyhemoglobin 0.3 (0.5-1.5) L 08/07/21 04:00 FiO2 % 30.0 08/07/21 04:00 Sodium 147 mmol/L (137-145) H 08/10/21 05:20 Potassium 4.3 mmol/L (3.6-5.0) 08/10/21 05:20 Chloride 111.8 mmol/L (98-107) H 08/10/21 05:20 Carbon Dioxide 24 mmol/L (22-30) 08/10/21 05:20 Anion Gap 16 mmol/L 08/10/21 05:20 BUN 68 mg/dL (7-17) H 08/10/21 05:20 Creatinine 1.4 mg/dL (0.6-1.2) H 08/10/21 05:20 Estimated GFR 46 ml/min 08/10/21 05:20 BUN/Creatinine Ratio 49 % 08/10/21 05:20 Glucose 81 mg/dL (65-100) 08/10/21 05:20 POC Glucose 72 mg/dL (70-105) 08/10/21 11:38 Lactic Acid 2.10 mmol/L (0.7-2.0) H* 08/03/21 15:11 Calcium 8.9 mg/dL (8.4-10.2) 08/10/21 05:20 Phosphorus 4.10 mg/dL (2.5-4.5) 08/08/21 06:00 Magnesium 2.20 mg/dL (1.7-2.3) 08/08/21 06:00 Total Bilirubin 0.40 mg/dL (0.1-1.2) 08/09/21 10:00 AST 37 units/L (5-40) 08/09/21 10:00 ALT 69 units/L (7-56) H 08/09/21 10:00 Alkaline Phosphatase 67 units/L (35-129) 08/09/21 10:00 Total Protein 5.2 g/dL (6.3-8.2) L 08/09/21 10:00 Albumin 2.6 g/dL (3.9-5) L 08/09/21 10:00 Albumin/Globulin Ratio 1.0 % 08/09/21 10:00 Carcinoembryonic Ag <0.5 ng/mL (0.0-2.4) 07/31/21 04:45 Arterial Blood Glucose 157 mg/dL (65-95) H 08/07/21 04:00 Arterial Blood Ionized Calcium 4.5 mg/dL (4.6-5.3) L 08/07/21 04:00 Urine Color Yellow (Yellow) 08/08/21 20: Urine Turbidity Slightly-cloudy (Clear) 08/08/21 20: Urine pH 5.0 (5.0-7.0) 08/08/21 20: Ur Specific [place] 1.014 (1.003-1.030) 08/08/21 20: Urine Protein 30 mg/dl mg/dL (Negative) 08/08/21 20: Urine Glucose (UA) Neg mg/dL (Negative) 08/08/21 20: Urine Ketones Neg mg/dL (Negative) 08/08/21 20: Urine Blood Mod (Negative) 08/08/21 20: Urine Nitrite Neg (Negative) 08/08/21 20: Urine Bilirubin Neg (Negative) 08/08/21 20: Urine Urobilinogen < 2.0 mg/dL (<2.0) 08/08/21 20: Ur Leukocyte Esterase Neg (Negative) 08/08/21 20: Urine WBC (Auto) 6.0 /HPF (0.0-6.0) 08/08/21 20: Urine RBC (Auto) 6.0 /HPF (0.0-6.0) 08/08/21 20: U Epithel Cells (Auto) < 1.0 /HPF (0-13.0) 08/08/21 20: Urine Bacteria (Auto) 1+ /HPF (Negative) 08/08/21 20:27 Urine Mucus Few /HPF 08/08/21 20:27 Urine Yeast (Budding) 1+ /HPF 08/08/21 20:27 Urine Creatinine 125.6 mg/dL (0.1-20.0) H 08/01/21 Unknown Urine Sodium 12 mmol/L 08/01/21 Unknown Double Strand DNA Ab 1 IU/mL (<=4) 08/02/21 15:40 Coronavirus (PCR) Negative (Negative) 07/29/21 07:58 Hepatitis A IgM Ab Non-reactive (NonReactive) 08/02/21 15:40 Hep Bs Antigen Nonreactive (Negative) 08/02/21 15:40 Hep B Core IgM Ab Non-reactive (NonReactive) 08/02/21 15:40 Hepatitis C Antibody Non-reactive (NonReactive) 08/02/21 15:40 AFB Identification Negative 08/02/21 14:30 Microbiology: Microbiology 08/08/21 16:39 Peripheral/Venous Blood Culture - Preliminary NO GROWTH AFTER 24 HOURS 08/08/21 16:39 Peripheral/Venous Blood Culture - Preliminary NO GROWTH AFTER 24 HOURS Elizabeth/IV: Voiding Method Indwelling Catheter Active Medications - Current Medications Current Medications: Generic Name Dose Route Start Last Admin Trade Name Freq PRN Reason Stop Dose Admin Acetaminophen 650 mg 07/28/21 02:11 Acetaminophen 325 Mg Tab PO Q6H PRN Pain MILD(1-3)/Fever >100.5/GARCIA Albuterol/Ipratropium 1 ampul 07/28/21 14:00 08/10/21 09:19 Ipratropium/Albuterol Sulfate 3 Ml Ampul.Neb IH 1 ampul TID DEMIAN Administration Lipase/Protease/Amylase 1 each 07/29/21 13:01 Lipase 10,500/Protease 25,000/Amylase 43,750 (Units) Dr Campoverde FEEDTUBE PRN PRN For Clogged Feeding Tube Arformoterol Tartrate 15 mcg 07/28/21 20:00 08/10/21 09:19 Arformoterol 15 Mcg/2 Ml Nebu IH 15 mcg Q12HRT DEMIAN Administration Bisacodyl 10 mg 08/07/21 09:50 Bisacodyl 10 Mg Rect Supp GA QDAY PRN Constip unreliev by MOM/or NPO Budesonide 0.5 mg 07/28/21 20:00 08/10/21 09:19 Budesonide 0.5 Mg/2 Ml Nebu IH 0.5 mg Q12HRT DEMIAN Administration Dextrose 50 ml 07/28/21 02:11 Dextrose 50% In Water (25gm) 50 Ml Syringe IV Q30MIN PRN Hypoglycemia Protocol Enoxaparin Sodium 100 mg 08/11/21 10:00 Enoxaparin 40 Mg/0.4 Ml Inj SUB-Q BID DEMIAN Protocol Famotidine 10 mg 08/02/21 10:00 08/10/21 10:39 Famotidine 20 Mg/2 Ml Inj IV 10 mg BID DEMIAN Administration Fentanyl 50 mcg 07/29/21 10:42 08/04/21 09:05 Fentanyl 100 Mcg/2 Ml Inj IV 50 mcg Q10MIN PRN Administration ANALGESIA Hydralazine HCl 10 mg 07/30/21 14:52 08/03/21 17:31 Hydralazine 20 Mg/1 Ml Inj IV 10 mg Q6H PRN Administration SBP > 165 Hydrophilic Ointment 1 applic 07/29/21 10:42 Lip Therapy Vaseline TP Q2HR PRN Dry Lips Fentanyl Citrate 2,000 mcg in 100 mls @ 5.35 mls/hr 07/29/21 11:00 08/10/21 12:21 Fentanyl Drip Premix IV 3 mcg/kg/hr TITR DEMIAN 16.05 mls/hr Administration Protocol 1 MCG/KG/HR Midazolam HCl 100 mg/ Sodium 100 mls @ 2 mls/hr 07/29/21 11:00 08/10/21 10:30 Chloride IV 2 mg/hr TITR DEMIAN 2 mls/hr Titration Protocol 2 MG/HR Norepinephrine 4 mg in 250 mls @ 7.5 mls/hr 07/29/21 21:00 Levophed Drip 4 Mg/Ns 250 Ml IV TITR DEMIAN Protocol 2 MCG/MIN Dextrose 1,000 mls @ 75 mls/hr 08/10/21 11:00 08/10/21 10:39 D5w IV 75 mls/hr DIRECT DEMIAN Administration Insulin Glargine 30 units 08/05/21 22:00 08/09/21 21:54 Insulin Glargine 100 Units/Ml SUB-Q 30 units QHS DEMIAN Administration Insulin Human Lispro 0 unit 07/29/21 12:00 08/10/21 12:07 Insulin Lispro 100 Unit/Ml SUB-Q Not Given Q6HR DEMIAN Protocol Magnesium Hydroxide 30 ml 07/28/21 02:11 Magnesium Hydroxide (Mom) Oral Liqd Udc PO Q4H PRN Constipation Midazolam HCl 2 mg 07/29/21 10:42 08/07/21 10:10 Midazolam 2 Mg/2 Ml Inj IV 2 mg Q10MIN PRN Administration Sedation Multi-Ingred Cream/Lotion/Oil/Oint 1 applic 07/29/21 10:42 Mineral Oil/Petrolatum, White Ophth Oint 3.5 Gm OU Q4HR PRN Dry Eye(s) Quetiapine Fumarate 200 mg 08/05/21 22:00 08/09/21 21:54 Quetiapine 200 Mg Tab PO 200 mg BID DEMIAN Administration Senna/Docusate Sodium 1 tab 07/29/21 22:00 08/09/21 21:54 Sennosides/Docusate Sodium 8.6/50 Mg Tab FEEDTUBE 1 tab BID DEMIAN Administration Simple Syrup 15 ml 07/29/21 13:01 Simple Syrup 15 Ml FEEDTUBE PRN PRN Hypoglycemia Simple Syrup 30 ml 07/29/21 13:01 Simple Syrup 15 Ml FEEDTUBE PRN PRN Hypoglycemia Sodium Bicarbonate 325 mg 07/29/21 13:01 Sodium Bicarbonate 325 Mg Tab FEEDTUBE PRN PRN For Clogged Feeding Tube Sodium Chloride 10 ml 07/28/21 10:00 08/09/21 21:57 Sodium Chloride 0.9% 10 Ml Flush Syringe IV 10 ml BID DEMIAN Administration Sodium Chloride 10 ml 07/28/21 02:05 Sodium Chloride 0.9% 10 Ml Flush Syringe IV PRN PRN LINE FLUSH Nutrition/Malnutrition Assess - Dietary Evaluation Nutrition/Malnutrition Findings: Nutrition Notes Start: 07/28/21 14:44 Freq: Status: Active Protocol: Document 08/08/21 10:20 JACKIE (Rec: 08/08/21 10:27 JACKIE [id number]) Nutrition Notes Initial or Follow up Reassessment Current Diagnosis COPD,Diabetes,Hypertension, Respiratory Failure Other Pertinent Diagnosis pneu Current Diet Vital AF at 50 ml/hr Labs/Tests Na 147 BUN 71 Cr 1.4 Pertinent Medications Sen[place]ot Height 5 ft Weight 107 kg [place] Body Weight (kg) 45.45 BMI 46.0 Weight Status Morbidly Obese Subjective/Other Information Per chart, pt got rectal suppository yesterday. No BM yet documented. Pt tolerating TF at goal rate. Percent of energy/protein needs met: 96%/67% Burn Absent Trauma Absent GI Symptoms Constipation,Last BM Current % PO Negligible Minimum of two criteria No #1 Nutrition Diagnosis Inadequate oral intake Diagnosis Progress(for reassessment Continues documentation) Is patient on ventilator? Yes Is Patient Ambulatory and/or Out of Bed No REE-([facility]-confined to bed) 1842.852 Kcal/Kg value to use for calculation 14 Approximate Energy Requirements Using 1498 kcal/Kg Calculation Used for Recommendations Kcal/kg Additional Notes Protein: (up to 2.5g/kg IBW) up to 134g Fluid: 1 ml/kcal or per MD Nutrition Intervention Change Diet Order: continue Nutrition Support: Vital AF 1.2 at 50 ml/hr For hypernatermia, flush 250 ml ml q4h or per MD. Once resolved, flush 100 ml q4h. Kcal 1,440 Protein (gm) 90 Fluid (mL) 973 Goal #1 Meet at least 75% of protein and energy needs via TF Anticipated Discharge Needs: Unable to determine at this time Follow-Up By: 08/11/21 Additional Comments F/u: stable TF, BM
[2021-08-10] MEDS ORDERED: LIDOCAINE (1%) 10 MG/1 ML VIAL 20 ML MDV ONE (15:39)
--- NOTE | 2021-08-10 15:59 | Procedure Note ---
Date of procedure: 08/10/21 Pre-op diagnosis: Right Lung Atelectasis Post-op diagnosis: same Procedure: FIBEROPTIC BRONCHOSCOPY WITH WASHES (Full dictation # ) Please see dictated notes for full details
--- NOTE | 2021-08-10 16:35 | XRay Report ---
CHEST 1 VIEW 08/10/2021 4:20 PM INDICATION / CLINICAL INFORMATION: Right lung collapse. COMPARISON: Earlier today at 9:23 AM. FINDINGS: SUPPORT DEVICES: The positions of the tracheostomy tube and left PICC have not changed. HEART / MEDIASTINUM: The heart size is normal. LUNGS / PLEURA: Complete opacification of the right hemithorax is stable. Mild patchy parenchymal dis ease in the left lung base has not changed. No pneumothorax. ADDITIONAL FINDINGS: No significant additional findings. IMPRESSION: Complete opacification of the right hemithorax has not changed significantly since frederic orellana today. Signer Name: Christian Padilla MD Signed: 08/10/2021 4:30 PM Workstation Name: [email or web address] [id number]
[2021-08-10] MEDS: MIDAZOLAM 2 MG/2 ML INJ IV PRN (20:58)
[2021-08-10] MEDS: SENNOSIDES/DOCUSATE SODIUM 8.6/50 MG TAB FEEDTUBE SCH (22:18)
[2021-08-10] MEDS: INSULIN GLARGINE 100 UNITS/ML SUB-Q SCH (22:19)
[2021-08-11] MEDS: fentaNYL DRIP Premix 2,000 MCG/100 ML BAG IV SCH ×3 (00:32→16:02)
[2021-08-11] MEDS: INSULIN LISPRO 100 UNIT/ML SUB-Q SCH ×4 (00:35→17:44)
[2021-08-11 05:32] LABS: Hematocrit 25.4 % (30.3-42.9); Hemoglobin 8.4 gm/dl (10.1-14.3); Mean Corpuscular HGB Conc 33 % (30-34); Mean Corpuscular Volume 90 fl (79-97); Platelet Count 221 K/mm3 (140-440); Red Blood Count 2.81 M/mm3 (3.65-5.03)
[2021-08-11] MEDS: INSULIN GLARGINE 100 UNITS/ML SUB-Q SCH (06:15)
[2021-08-11 06:23] LABS: Albumin 2.6 g/dL (3.9-5); Calcium 8.3 mg/dL (8.4-10.2)
[2021-08-11] MEDS: FREE WATER PO SCH ×6 (06:28→22:32)
[2021-08-11] MEDS: QUEtiapine 200 MG TAB PO SCH ×2 (09:25→21:12)
[2021-08-11] MEDS: FAMOTIDINE 20 MG/2 ML INJ IV SCH ×2 (09:31→21:12)
[2021-08-11] MEDS: ENOXAPARIN 100 MG/1 ML INJ SUB-Q SCH ×2 (09:31→21:14)
[2021-08-11] MEDS: SENNOSIDES/DOCUSATE SODIUM 8.6/50 MG TAB FEEDTUBE SCH ×3 (09:32→20:01)
--- NOTE | 2021-08-11 09:35 | Progress Note ---
Assessment and Plan Impression * Nonoliguric acute kidney injury secondary to prerenal azotemia --FeNa 0.13%. * Acute hypoxic respiratory failure * Hypernatremia * Pulmonary infiltrates * History of breast cancer. [place] to be metastatic with mediastinal and lung masses Recommendations * Renal function is stable. Hypernatremia resolved * Free H2O 200ml q4h resumed * Vent management as per ICU team * Avoid nephrotoxins * Monitor fluid status and electrolytes closely * No indication for renal replacement therapy at this time * Will follow peripherally Subjective Date of service: 08/11/21 Principal diagnosis: Ac hypoxemic resp failure ; AE-COPD; H/O CA Breast; DM II; HTN Interval history: No acute events overnight Objective - Vital Signs Vital signs: Vital Signs - 12hr 08/10/21 08/10/21 08/10/21 21:45 22:00 22:15 Temperature Pulse Rate 80 81 82 Pulse Rate [ From Monitor] Respiratory 16 16 13 Rate Blood Pressure 110/62 106/64 114/69 O2 Sat by Pulse 98 99 98 Oximetry O2 Sat by Pulse Oximetry [ Assessment] 08/10/21 08/10/21 08/10/21 22:30 22:45 22:58 Temperature Pulse Rate 84 81 80 Pulse Rate [ From Monitor] Respiratory 8 L 16 16 Rate Blood Pressure 109/70 109/62 109/62 O2 Sat by Pulse 99 98 98 Oximetry O2 Sat by Pulse Oximetry [ Assessment] 08/10/21 08/10/21 08/10/21 23:00 23:15 23:30 Temperature Pulse Rate 80 80 82 Pulse Rate [ From Monitor] Respiratory 16 16 16 Rate Blood Pressure 110/62 119/54 121/56 O2 Sat by Pulse 98 98 99 Oximetry O2 Sat by Pulse Oximetry [ Assessment] 08/10/21 08/10/21 08/11/21 23:45 23:55 00:00 Temperature 98.2 F Pulse Rate 82 82 92 H Pulse Rate [ 92 H From Monitor] Respiratory 16 16 Rate Blood Pressure 121/66 121/56 121/66 O2 Sat by Pulse 98 98 100 Oximetry O2 Sat by Pulse Oximetry [ Assessment] 08/11/21 08/11/21 08/11/21 00:16 00:30 00:46 Temperature Pulse Rate 94 H 93 H 91 H Pulse Rate [ From Monitor] Respiratory 15 16 16 Rate Blood Pressure 160/79 160/79 154/74 O2 Sat by Pulse 100 99 100 Oximetry O2 Sat by Pulse Oximetry [ Assessment] 08/11/21 08/11/21 08/11/21 01:00 01:16 01:30 Temperature Pulse Rate 91 H 87 86 Pulse Rate [ From Monitor] Respiratory 15 16 17 Rate Blood Pressure 154/74 123/64 123/64 O2 Sat by Pulse 99 99 99 Oximetry O2 Sat by Pulse Oximetry [ Assessment] 08/11/21 08/11/21 08/11/21 01:46 02:00 02:16 Temperature Pulse Rate 85 80 78 Pulse Rate [ From Monitor] Respiratory 16 15 16 Rate Blood Pressure 124/73 124/73 119/63 O2 Sat by Pulse 98 97 97 Oximetry O2 Sat by Pulse Oximetry [ Assessment] 08/11/21 08/11/21 08/11/21 02:30 02:45 03:00 Temperature Pulse Rate 79 79 77 Pulse Rate [ From Monitor] Respiratory 16 16 16 Rate Blood Pressure 119/63 122/69 122/69 O2 Sat by Pulse 99 98 99 Oximetry O2 Sat by Pulse Oximetry [ Assessment] 08/11/21 08/11/21 08/11/21 03:15 03:30 03:45 Temperature Pulse Rate 76 75 78 Pulse Rate [ From Monitor] Respiratory 16 16 16 Rate Blood Pressure 111/66 114/65 124/65 O2 Sat by Pulse 99 99 98 Oximetry O2 Sat by Pulse Oximetry [ Assessment] 08/11/21 08/11/21 08/11/21 04:00 04:05 04:11 Temperature 98.2 F Pulse Rate 76 76 Pulse Rate [ 84 From Monitor] Respiratory 16 Rate Blood Pressure 124/65 114/58 O2 Sat by Pulse 99 99 Oximetry O2 Sat by Pulse 100 Oximetry [ Assessment] 08/11/21 08/11/21 08/11/21 04:15 04:30 04:45 Temperature Pulse Rate 82 85 86 Pulse Rate [ From Monitor] Respiratory 16 12 16 Rate Blood Pressure 135/77 135/77 112/73 O2 Sat by Pulse 96 98 97 Oximetry O2 Sat by Pulse Oximetry [ Assessment] 08/11/21 08/11/21 08/11/21 05:00 05:15 05:30 Temperature Pulse Rate 85 84 84 Pulse Rate [ From Monitor] Respiratory 16 16 16 Rate Blood Pressure 112/64 117/67 117/67 O2 Sat by Pulse 97 97 96 Oximetry O2 Sat by Pulse Oximetry [ Assessment] 08/11/21 08/11/21 08/11/21 05:45 06:00 07:15 Temperature 99.2 F Pulse Rate 85 83 Pulse Rate [ From Monitor] Respiratory 16 16 Rate Blood Pressure 114/75 123/71 O2 Sat by Pulse 97 96 Oximetry O2 Sat by Pulse Oximetry [ Assessment] 08/11/21 08/11/21 08/11/21 07:50 07:54 08:10 Temperature Pulse Rate 89 Pulse Rate [ From Monitor] Respiratory Rate Blood Pressure 118/70 O2 Sat by Pulse 97 99 Oximetry O2 Sat by Pulse 96 Oximetry [ Assessment] - General Appearance General appearance: well-developed, well-nourished EENT: ATNC Neck: other (Trach) Cardiology: regular, S1S2 Gastrointestinal: obese Integumentary: warm and dry Musculoskeletal: other (no edema) Psychiatric: cooperative - Lab 08/11/21 Unknown 08/11/21 04:30 Most recent lab results ABG pH 7.398 (7.320-7.450) 08/11/21 02:51 ABG O2 Saturation 97.7 (0-100) 08/11/21 02:51 Calcium 8.3 mg/dL (8.4-10.2) L 08/11/21 04:30 Phosphorus 4.10 mg/dL (2.5-4.5) 08/08/21 06:00 Magnesium 2.20 mg/dL (1.7-2.3) 08/08/21 06:00 Urine Creatinine 125.6 mg/dL (0.1-20.0) H 08/01/21 Unknown Urine Sodium 12 mmol/L 08/01/21 Unknown Medications & Allergies - Medications Allergies/Adverse Reactions: Allergies No Known Allergies Allergy (Verified 12/24/18 11:45) Home Medications: Home Medications Medication Instructions Recorded Confirmed Last Taken Type traMADoL [Ultram 50 MG tab] 50 mg PO Q6HR PRN #15 tablet 01/25/18 Unknown Rx Active Medications: Generic Name Dose Route Start Last Admin Trade Name Freq PRN Reason Stop Dose Admin Acetaminophen 650 mg 07/28/21 02:11 Acetaminophen 325 Mg Tab PO Q6H PRN Pain MILD(1-3)/Fever >100.5/GARCIA Albuterol/Ipratropium 1 ampul 07/28/21 14:00 08/10/21 20:01 Ipratropium/Albuterol Sulfate 3 Ml Ampul.Neb IH 1 ampul TID DEMIAN Administration Lipase/Protease/Amylase 1 each 07/29/21 13:01 Lipase 10,500/Protease 25,000/Amylase 43,750 (Units) Dr Cap FEEDTUBE PRN PRN For Clogged Feeding Tube Arformoterol Tartrate 15 mcg 07/28/21 20:00 08/10/21 20:01 Arformoterol 15 Mcg/2 Ml Nebu IH 15 mcg Q12HRT DEMIAN Administration Bisacodyl 10 mg 08/07/21 09:50 Bisacodyl 10 Mg Rect Supp MT QDAY PRN Constip unreliev by MOM/or NPO Budesonide 0.5 mg 07/28/21 20:00 08/10/21 20:01 Budesonide 0.5 Mg/2 Ml Nebu IH 0.5 mg Q12HRT DEMIAN Administration Dextrose 50 ml 07/28/21 02:11 08/10/21 18:05 Dextrose 50% In Water (25gm) 50 Ml Syringe IV 20 ml Q30MIN PRN Administration Hypoglycemia Protocol Enoxaparin Sodium 100 mg 08/11/21 10:00 Enoxaparin 100 Mg/1 Ml Inj SUB-Q Q12HR DEMIAN Protocol Famotidine 10 mg 08/02/21 10:00 08/10/21 22:18 Famotidine 20 Mg/2 Ml Inj IV 10 mg BID DEMIAN Administration Fentanyl 50 mcg 07/29/21 10:42 08/04/21 09:05 Fentanyl 100 Mcg/2 Ml Inj IV 50 mcg Q10MIN PRN Administration ANALGESIA Hydralazine HCl 10 mg 07/30/21 14:52 08/03/21 17:31 Hydralazine 20 Mg/1 Ml Inj IV 10 mg Q6H PRN Administration SBP > 165 Hydrophilic Ointment 1 applic 07/29/21 10:42 Lip Therapy Vaseline TP Q2HR PRN Dry Lips Fentanyl Citrate 2,000 mcg in 100 mls @ 5.35 mls/hr 07/29/21 11:00 08/11/21 07:07 Fentanyl Drip Premix IV 2 mcg/kg/hr TITR DEMIAN 10.7 mls/hr Titration Protocol 1 MCG/KG/HR Midazolam HCl 100 mg/ Sodium 100 mls @ 2 mls/hr 07/29/21 11:00 08/11/21 07:08 Chloride IV 2 mg/hr TITR DEMIAN 2 mls/hr Titration Protocol 2 MG/HR Norepinephrine 4 mg in 250 mls @ 7.5 mls/hr 07/29/21 21:00 Levophed Drip 4 Mg/Ns 250 Ml IV TITR DEMIAN Protocol 2 MCG/MIN Insulin Human Lispro 0 unit 07/29/21 12:00 08/11/21 06:30 Insulin Lispro 100 Unit/Ml SUB-Q Not Given Q6HR DEMIAN Protocol Lidocaine 20 ml 08/11/21 16:00 Lidocaine (1%) 10 Mg/1 Ml Vial 20 Ml Mdv INFILTRATI 08/11/21 20:00 ONCE@1600 DEMIAN Magnesium Hydroxide 30 ml 07/28/21 02:11 Magnesium Hydroxide (Mom) Oral Liqd Udc PO Q4H PRN Constipation Midazolam HCl 2 mg 07/29/21 10:42 08/10/21 20:58 Midazolam 2 Mg/2 Ml Inj IV 2 mg Q10MIN PRN Administration Sedation Multi-Ingred Cream/Lotion/Oil/Oint 1 applic 07/29/21 10:42 Mineral Oil/Petrolatum, White Ophth Oint 3.5 Gm OU Q4HR PRN Dry Eye(s) Quetiapine Fumarate 200 mg 08/05/21 22:00 08/10/21 22:18 Quetiapine 200 Mg Tab PO 200 mg BID DEMIAN Administration Senna/Docusate Sodium 1 tab 07/29/21 22:00 08/10/21 22:18 Sennosides/Docusate Sodium 8.6/50 Mg Tab FEEDTUBE 1 tab BID DEMIAN Administration Simple Syrup 15 ml 07/29/21 13:01 Simple Syrup 15 Ml FEEDTUBE PRN PRN Hypoglycemia Simple Syrup 30 ml 07/29/21 13:01 Simple Syrup 15 Ml FEEDTUBE PRN PRN Hypoglycemia Sodium Bicarbonate 325 mg 07/29/21 13:01 Sodium Bicarbonate 325 Mg Tab FEEDTUBE PRN PRN For Clogged Feeding Tube Sodium Chloride 10 ml 07/28/21 10:00 08/11/21 06:29 Sodium Chloride 0.9% 10 Ml Flush Syringe IV 10 ml BID DEMIAN Administration Sodium Chloride 10 ml 07/28/21 02:05 Sodium Chloride 0.9% 10 Ml Flush Syringe IV PRN PRN LINE FLUSH
[2021-08-11] MEDS: BUDESONIDE 0.5 MG/2 ML NEBU IH SCH (11:52)
[2021-08-11] MEDS: ARFORMOTEROL 15 MCG/2 ML NEBU IH SCH (11:52)
[2021-08-11] MEDS: IPRATROPIUM/ALBUTEROL SULFATE 3 ML AMPUL.NEB IH SCH ×2 (11:53→16:02)
--- NOTE | 2021-08-11 12:03 | Progress Note ---
Assessment and Plan Acute hypoxemic respiratory failure secondary Lung Mass (? Lung vs Breast CA) Acute COPD exacerbation Possible hypercapnia History of right breast cancer Leukocytosis DM II Hypertension Hyperlipidemia Tobacco use disorder - bronchoscopy yesterday revealed endobronchial lesion producing ball valve type effect - discussed with [place] [employer] and await response - keep peep at 10 to splint airways open - repeat CXR in am - continue care as below otherwise; - malignancy per oncology team - continue daily SAT and SBT assessment as tolerated post trach - continue full anticoagulation for VTE - continue Seroquel to spare IV sedatives - azotemia per nephrology - continue to wean supplemental oxygen for target O2 sat's > 90% acutely - VAP bundle addressed - continue lung protective strategies - continue bronchodilators (GLADIS & LABA) with pulmonary hygiene per RT - wean per pulmonary driven protocols otherwise - continue accuchecks with glycemic control per SSI (While critically ill target blood glucose of 140-180 mg/dL; avoid hypoglycemia) - sedation prn for target RASS 0 to -1 - avoid nephrotoxins, renally dose all medications - continue to avoid benzodiazepine's, reduce the possibility of delirium - complete AB's per ID rec's - prn analgesia per CPOT score - Maintenance of sleep-wake cycle, avoid delirium - enteral nutritional support at goal rate as tolerated - G.I. & VTE prophylaxis - PT/OT/ROM exercises - continue mobility protocols for pressure ulcer prophylaxis - Monitor hemodynamics closely - continue other care per attending / other consultants - discharge planning ongoing concurrently COVID SPECIFIC INTERVENTIONS - test result pending .... Re-evaluate in am & prn CONDITION: CRITICAL PROGNOSIS: GUARDED CODE STATUS: FULL CODE The high probability of a clinically significant, sudden or life-threatening deterioration of the [respiratory, cardiovascular, oncological & neurologic] system(s) required my full and direct attention, intervention and personal management. The aggregate critical care time was [36] minutes without overlap. Time includes spent on; [x] Data Review and interpretation [x] Patient assessment and monitoring of vital signs [x] Documentation [x] Medication orders and management Subjective Date of service: 08/11/21 Principal diagnosis: Ac hypoxemic resp failure ; AE-COPD; H/O CA Breast; DM II; HTN Interval history: Patient is seen today for: Acute hypoxemic respiratory failure; AE-COPD; Possible hypercapnia; H/O CA Breast; DM II; HTN Seen and examined at bedside; 24hour events reviewed; nursing and respiratory care staff consulted; no adverse overnight events reported to me; resting in bed; remains on MVS; minimal improvement in right lung atelectasis; no emesis or overt aspiration and no gross bleeding Objective Vital Signs - 12hr 08/11/21 08/11/21 08/11/21 00:16 00:30 00:46 Temperature Pulse Rate 94 H 93 H 91 H Pulse Rate [ Anterior Bilateral] Pulse Rate [ From Monitor] Respiratory 15 16 16 Rate Respiratory Rate [Anterior Bilateral] Blood Pressure 160/79 160/79 154/74 O2 Sat by Pulse 100 99 100 Oximetry O2 Sat by Pulse Oximetry [ Assessment] 08/11/21 08/11/21 08/11/21 01:00 01:16 01:30 Temperature Pulse Rate 91 H 87 86 Pulse Rate [ Anterior Bilateral] Pulse Rate [ From Monitor] Respiratory 15 16 17 Rate Respiratory Rate [Anterior Bilateral] Blood Pressure 154/74 123/64 123/64 O2 Sat by Pulse 99 99 99 Oximetry O2 Sat by Pulse Oximetry [ Assessment] 08/11/21 08/11/21 08/11/21 01:46 02:00 02:16 Temperature Pulse Rate 85 80 78 Pulse Rate [ Anterior Bilateral] Pulse Rate [ From Monitor] Respiratory 16 15 16 Rate Respiratory Rate [Anterior Bilateral] Blood Pressure 124/73 124/73 119/63 O2 Sat by Pulse 98 97 97 Oximetry O2 Sat by Pulse Oximetry [ Assessment] 08/11/21 08/11/21 08/11/21 02:30 02:45 03:00 Temperature Pulse Rate 79 79 77 Pulse Rate [ Anterior Bilateral] Pulse Rate [ From Monitor] Respiratory 16 16 16 Rate Respiratory Rate [Anterior Bilateral] Blood Pressure 119/63 122/69 122/69 O2 Sat by Pulse 99 98 99 Oximetry O2 Sat by Pulse Oximetry [ Assessment] 08/11/21 08/11/21 08/11/21 03:15 03:30 03:45 Temperature Pulse Rate 76 75 78 Pulse Rate [ Anterior Bilateral] Pulse Rate [ From Monitor] Respiratory 16 16 16 Rate Respiratory Rate [Anterior Bilateral] Blood Pressure 111/66 114/65 124/65 O2 Sat by Pulse 99 99 98 Oximetry O2 Sat by Pulse Oximetry [ Assessment] 08/11/21 08/11/21 08/11/21 04:00 04:05 04:11 Temperature 98.2 F Pulse Rate 76 76 Pulse Rate [ Anterior Bilateral] Pulse Rate [ 84 From Monitor] Respiratory 16 Rate Respiratory Rate [Anterior Bilateral] Blood Pressure 124/65 114/58 O2 Sat by Pulse 99 99 Oximetry O2 Sat by Pulse 100 Oximetry [ Assessment] 08/11/21 08/11/21 08/11/21 04:15 04:30 04:45 Temperature Pulse Rate 82 85 86 Pulse Rate [ Anterior Bilateral] Pulse Rate [ From Monitor] Respiratory 16 12 16 Rate Respiratory Rate [Anterior Bilateral] Blood Pressure 135/77 135/77 112/73 O2 Sat by Pulse 96 98 97 Oximetry O2 Sat by Pulse Oximetry [ Assessment] 08/11/21 08/11/21 08/11/21 05:00 05:15 05:30 Temperature Pulse Rate 85 84 84 Pulse Rate [ Anterior Bilateral] Pulse Rate [ From Monitor] Respiratory 16 16 16 Rate Respiratory Rate [Anterior Bilateral] Blood Pressure 112/64 117/67 117/67 O2 Sat by Pulse 97 97 96 Oximetry O2 Sat by Pulse Oximetry [ Assessment] 08/11/21 08/11/21 08/11/21 05:45 06:00 07:15 Temperature 99.2 F Pulse Rate 85 83 Pulse Rate [ Anterior Bilateral] Pulse Rate [ From Monitor] Respiratory 16 16 Rate Respiratory Rate [Anterior Bilateral] Blood Pressure 114/75 123/71 O2 Sat by Pulse 97 96 Oximetry O2 Sat by Pulse Oximetry [ Assessment] 08/11/21 08/11/21 08/11/21 07:50 07:54 08:00 Temperature Pulse Rate 89 Pulse Rate [ 95 H Anterior Bilateral] Pulse Rate [ From Monitor] Respiratory Rate Respiratory 16 Rate [Anterior Bilateral] Blood Pressure 118/70 O2 Sat by Pulse 97 Oximetry O2 Sat by Pulse 96 Oximetry [ Assessment] 08/11/21 08/11/21 08/11/21 08:10 11:46 11:47 Temperature 99.5 F Pulse Rate 94 H Pulse Rate [ Anterior Bilateral] Pulse Rate [ From Monitor] Respiratory Rate Respiratory Rate [Anterior Bilateral] Blood Pressure 134/82 O2 Sat by Pulse 99 97 Oximetry O2 Sat by Pulse Oximetry [ Assessment] Constitutional: no acute distress (sedate), other (eldely obese female without increased respiratory effort at rest on MVS) Eyes: non-icteric ENT: oropharynx moist, other (ETT 24 cm [place]) Neck: supple, no lymphadenopathy, no JVD Effort: mildly labored Ascultation: Right: diminished breath sounds, Bilateral: wheezes (central), rhonchi Percussion: Bilateral: not dull Cardiovascular: regular rate and rhythm Gastrointestinal: normoactive bowel sounds, soft, non-tender, non-distended Integumentary: normal Extremities: no cyanosis, no edema, pulses normal, no ischemia or petechiae Neurologic: normal mental status, non-focal exam, pupils equal and round, CN II- XII normal Psychiatric: mood appropriate, affect normal CBC and BMP: 08/11/21 Unknown 08/11/21 04:30 ABG, PT/INR, D-dimer: ABG ABG pH 7.398 (7.320-7.450) 08/11/21 02:51 POC ABG pCO2 40.5 mmHg (32.0-48.0) 08/11/21 02:51 POC ABG pO2 100.5 mmHg (83-108) 08/11/21 02:51 POC ABG HCO3 24.4 08/11/21 02:51 ABG O2 Saturation 97.7 (0-100) 08/11/21 02:51 PT/INR, D-dimer PT 14.2 Sec. (12.2-14.9) 08/10/21 05:20 INR 1.05 (0.87-1.13) 08/10/21 05:20 D-Dimer 852.47 ng/mlDDU (0-234) H 07/29/21 07:17 Abnormal lab findings: Abnormal Labs 07/27/21 07/27/21 07/27/21 22:57 22:57 22:57 WBC 20.3 H RBC Hgb Hct RDW Lymph % (Auto) Lymph # (Auto) [place] # (Auto) Seg Neutrophils % Seg Neuts % (Manual) 89.0 H Lymphocytes % (Manual) 9.0 L Nucleated RBC % Seg Neutrophils # Seg Neutrophils # Man 18.1 H Lymphocytes # (Manual) Monocytes # (Manual) D-Dimer ABG pH POC ABG pCO2 POC ABG pO2 ABG Hemoglobin ABG Oxyhemoglobin ABG Sodium ABG Potassium ABG Chloride ABG Glucose Carboxyhemoglobin Sodium Potassium 3.5 L Chloride 96.9 L Carbon Dioxide 20 L BUN 19 H Creatinine Glucose 204 H POC Glucose Lactic Acid 7.20 H* Calcium Magnesium AST 98 H ALT 90 H Total Protein Albumin Arterial Blood Glucose Arterial Blood Ionized Calcium Urine WBC (Auto) Urine Creatinine 07/28/21 07/28/21 07/28/21 01:31 07:49 10:00 WBC RBC Hgb Hct RDW Lymph % (Auto) Lymph # (Auto) [place] # (Auto) Seg Neutrophils % Seg Neuts % (Manual) Lymphocytes % (Manual) Nucleated RBC % Seg Neutrophils # Seg Neutrophils # Man Lymphocytes # (Manual) Monocytes # (Manual) D-Dimer ABG pH POC ABG pCO2 POC ABG pO2 ABG Hemoglobin ABG Oxyhemoglobin ABG Sodium ABG Potassium ABG Chloride ABG Glucose Carboxyhemoglobin Sodium Potassium Chloride Carbon Dioxide BUN Creatinine Glucose POC Glucose 194 H Lactic Acid 6.90 H* 6.70 H* Calcium Magnesium AST ALT Total Protein Albumin Arterial Blood Glucose Arterial Blood Ionized Calcium Urine WBC (Auto) Urine Creatinine 07/28/21 07/28/21 07/28/21 12:41 13:21 16:21 WBC RBC Hgb Hct RDW Lymph % (Auto) Lymph # (Auto) [place] # (Auto) Seg Neutrophils % Seg Neuts % (Manual) Lymphocytes % (Manual) Nucleated RBC % Seg Neutrophils # Seg Neutrophils # Man Lymphocytes # (Manual) Monocytes # (Manual) D-Dimer ABG pH POC ABG pCO2 POC ABG pO2 ABG Hemoglobin ABG Oxyhemoglobin ABG Sodium ABG Potassium ABG Chloride ABG Glucose Carboxyhemoglobin Sodium Potassium Chloride Carbon Dioxide BUN Creatinine Glucose POC Glucose 159 H 155 H Lactic Acid 6.10 H* Calcium Magnesium AST ALT Total Protein Albumin Arterial Blood Glucose Arterial Blood Ionized Calcium Urine WBC (Auto) Urine Creatinine 07/28/21 07/29/21 07/29/21 22:03 04:44 04:44 WBC 17.0 H RBC Hgb Hct RDW Lymph % (Auto) Lymph # (Auto) [place] # (Auto) Seg Neutrophils % Seg Neuts % (Manual) 82.0 H Lymphocytes % (Manual) 11.0 L Nucleated RBC % Seg Neutrophils # Seg Neutrophils # Man 13.9 H Lymphocytes # (Manual) Monocytes # (Manual) 1.0 H D-Dimer ABG pH POC ABG pCO2 POC ABG pO2 ABG Hemoglobin ABG Oxyhemoglobin ABG Sodium ABG Potassium ABG Chloride ABG Glucose Carboxyhemoglobin Sodium Potassium Chloride Carbon Dioxide BUN 23 H Creatinine Glucose 196 H POC Glucose 187 H Lactic Acid Calcium Magnesium AST ALT Total Protein Albumin Arterial Blood Glucose Arterial Blood Ionized Calcium Urine WBC (Auto) Urine Creatinine 07/29/21 07/29/21 07/29/21 06:56 07:17 07:17 WBC 26.1 H RBC Hgb Hct 43.3 H RDW 16.0 H Lymph % (Auto) Lymph # (Auto) [place] # (Auto) Seg Neutrophils % Seg Neuts % (Manual) 80.0 H Lymphocytes % (Manual) Nucleated RBC % Seg Neutrophils # Seg Neutrophils # Man 20.9 H Lymphocytes # (Manual) Monocytes # (Manual) D-Dimer ABG pH POC ABG pCO2 POC ABG pO2 ABG Hemoglobin ABG Oxyhemoglobin ABG Sodium ABG Potassium ABG Chloride ABG Glucose Carboxyhemoglobin Sodium Potassium Chloride Carbon Dioxide 20 L D BUN 23 H Creatinine Glucose 308 H POC Glucose 165 H Lactic Acid Calcium Magnesium AST ALT Total Protein Albumin Arterial Blood Glucose Arterial Blood Ionized Calcium Urine WBC (Auto) Urine Creatinine 07/29/21 07/29/21 07/29/21 07:17 09:16 10:30 WBC RBC Hgb Hct RDW Lymph % (Auto) Lymph # (Auto) [place] # (Auto) Seg Neutrophils % Seg Neuts % (Manual) Lymphocytes % (Manual) Nucleated RBC % Seg Neutrophils # Seg Neutrophils # Man Lymphocytes # (Manual) Monocytes # (Manual) D-Dimer 852.47 H ABG pH 7.236 L POC ABG pCO2 56.0 H POC ABG pO2 266.4 H ABG Hemoglobin ABG Oxyhemoglobin 99.1 H ABG Sodium 132.3 L ABG Potassium 4.9 H ABG Chloride ABG Glucose 202 H Carboxyhemoglobin 0.2 L Sodium Potassium Chloride Carbon Dioxide BUN Creatinine Glucose POC Glucose 271 H Lactic Acid Calcium Magnesium AST ALT Total Protein Albumin Arterial Blood Glucose 202 H Arterial Blood Ionized Calcium Urine WBC (Auto) Urine Creatinine 07/29/21 07/29/21 07/30/21 17:54 23:32 05:08 WBC RBC Hgb Hct RDW Lymph % (Auto) Lymph # (Auto) [place] # (Auto) Seg Neutrophils % Seg Neuts % (Manual) Lymphocytes % (Manual) Nucleated RBC % Seg Neutrophils # Seg Neutrophils # Man Lymphocytes # (Manual) Monocytes # (Manual) D-Dimer ABG pH POC ABG pCO2 POC ABG pO2 ABG Hemoglobin ABG Oxyhemoglobin ABG Sodium ABG Potassium ABG Chloride ABG Glucose Carboxyhemoglobin Sodium Potassium Chloride Carbon Dioxide BUN Creatinine Glucose POC Glucose 168 H 205 H 214 H Lactic Acid Calcium Magnesium AST ALT Total Protein Albumin Arterial Blood Glucose Arterial Blood Ionized Calcium Urine WBC (Auto) Urine Creatinine 07/30/21 07/30/21 07/30/21 06:01 11:32 17:34 WBC RBC Hgb Hct RDW Lymph % (Auto) Lymph # (Auto) [place] # (Auto) Seg Neutrophils % Seg Neuts % (Manual) Lymphocytes % (Manual) Nucleated RBC % Seg Neutrophils # Seg Neutrophils # Man Lymphocytes # (Manual) Monocytes # (Manual) D-Dimer ABG pH 7.480 H POC ABG pCO2 23.6 L POC ABG pO2 280.0 H ABG Hemoglobin ABG Oxyhemoglobin 99.3 H ABG Sodium 133.7 L ABG Potassium ABG Chloride ABG Glucose 232 H Carboxyhemoglobin 0 L Sodium Potassium Chloride Carbon Dioxide BUN Creatinine Glucose POC Glucose 207 H 239 H Lactic Acid Calcium Magnesium AST ALT Total Protein Albumin Arterial Blood Glucose 232 H Arterial Blood Ionized Calcium 4.4 L Urine WBC (Auto) Urine Creatinine 07/30/21 07/31/21 07/31/21 23:39 03:34 04:45 WBC 15.0 H RBC Hgb Hct RDW 15.5 H Lymph % (Auto) Lymph # (Auto) [place] # (Auto) Seg Neutrophils % Seg Neuts % (Manual) 89.0 H Lymphocytes % (Manual) 7.0 L Nucleated RBC % Seg Neutrophils # Seg Neutrophils # Man 13.4 H Lymphocytes # (Manual) 1.1 L Monocytes # (Manual) D-Dimer ABG pH 7.481 H POC ABG pCO2 31.8 L POC ABG pO2 ABG Hemoglobin ABG Oxyhemoglobin ABG Sodium 135.2 L ABG Potassium 3.3 L ABG Chloride ABG Glucose 188 H Carboxyhemoglobin 0.1 L Sodium Potassium Chloride Carbon Dioxide BUN Creatinine Glucose POC Glucose 176 H Lactic Acid Calcium Magnesium AST ALT Total Protein Albumin Arterial Blood Glucose 188 H Arterial Blood Ionized Calcium 4.4 L Urine WBC (Auto) Urine Creatinine 07/31/21 07/31/21 07/31/21 04:45 04:45 11:28 WBC RBC Hgb Hct RDW Lymph % (Auto) Lymph # (Auto) [place] # (Auto) Seg Neutrophils % Seg Neuts % (Manual) Lymphocytes % (Manual) Nucleated RBC % Seg Neutrophils # Seg Neutrophils # Man Lymphocytes # (Manual) Monocytes # (Manual) D-Dimer ABG pH POC ABG pCO2 POC ABG pO2 ABG Hemoglobin ABG Oxyhemoglobin ABG Sodium ABG Potassium ABG Chloride ABG Glucose Carboxyhemoglobin Sodium Potassium 3.4 L Chloride Carbon Dioxide BUN 61 H Creatinine 2.6 H D Glucose 176 H POC Glucose 195 H 245 H Lactic Acid Calcium Magnesium AST ALT Total Protein Albumin Arterial Blood Glucose Arterial Blood Ionized Calcium Urine WBC (Auto) Urine Creatinine 07/31/21 07/31/21 08/01/21 17:32 23:58 01:00 WBC RBC Hgb Hct RDW Lymph % (Auto) Lymph # (Auto) [place] # (Auto) Seg Neutrophils % Seg Neuts % (Manual) Lymphocytes % (Manual) Nucleated RBC % Seg Neutrophils # Seg Neutrophils # Man Lymphocytes # (Manual) Monocytes # (Manual) D-Dimer ABG pH POC ABG pCO2 POC ABG pO2 ABG Hemoglobin ABG Oxyhemoglobin ABG Sodium ABG Potassium ABG Chloride ABG Glucose 284 H Carboxyhemoglobin 0.3 L Sodium Potassium Chloride Carbon Dioxide BUN Creatinine Glucose POC Glucose 251 H 294 H Lactic Acid Calcium Magnesium AST ALT Total Protein Albumin Arterial Blood Glucose 284 H Arterial Blood Ionized Calcium Urine WBC (Auto) Urine Creatinine 08/01/21 08/01/21 08/01/21 05:50 05:50 06:11 WBC 16.2 H RBC Hgb Hct RDW 15.5 H Lymph % (Auto) Lymph # (Auto) [place] # (Auto) Seg Neutrophils % Seg Neuts % (Manual) 93.0 H Lymphocytes % (Manual) 2.0 L Nucleated RBC % 3.0 H Seg Neutrophils # Seg Neutrophils # Man 15.1 H Lymphocytes # (Manual) 0.3 L Monocytes # (Manual) D-Dimer ABG pH POC ABG pCO2 POC ABG pO2 ABG Hemoglobin ABG Oxyhemoglobin ABG Sodium ABG Potassium ABG Chloride ABG Glucose Carboxyhemoglobin Sodium Potassium Chloride Carbon Dioxide BUN 64 H Creatinine 1.9 H Glucose 277 H POC Glucose 256 H Lactic Acid Calcium Magnesium AST ALT Total Protein Albumin Arterial Blood Glucose Arterial Blood Ionized Calcium Urine WBC (Auto) Urine Creatinine 08/01/21 08/01/21 08/01/21 11:39 17:25 23:53 WBC RBC Hgb Hct RDW Lymph % (Auto) Lymph # (Auto) [place] # (Auto) Seg Neutrophils % Seg Neuts % (Manual) Lymphocytes % (Manual) Nucleated RBC % Seg Neutrophils # Seg Neutrophils # Man Lymphocytes # (Manual) Monocytes # (Manual) D-Dimer ABG pH POC ABG pCO2 POC ABG pO2 ABG Hemoglobin ABG Oxyhemoglobin ABG Sodium ABG Potassium ABG Chloride ABG Glucose Carboxyhemoglobin Sodium Potassium Chloride Carbon Dioxide BUN Creatinine Glucose POC Glucose 289 H 275 H 327 H Lactic Acid Calcium Magnesium AST ALT Total Protein Albumin Arterial Blood Glucose Arterial Blood Ionized Calcium Urine WBC (Auto) Urine Creatinine 08/01/21 08/02/21 08/02/21 Unknown 04:00 12:03 WBC RBC Hgb Hct RDW Lymph % (Auto) Lymph # (Auto) [place] # (Auto) Seg Neutrophils % Seg Neuts % (Manual) Lymphocytes % (Manual) Nucleated RBC % Seg Neutrophils # Seg Neutrophils # Man Lymphocytes # (Manual) Monocytes # (Manual) D-Dimer ABG pH POC ABG pCO2 POC ABG pO2 ABG Hemoglobin ABG Oxyhemoglobin ABG Sodium ABG Potassium ABG Chloride ABG Glucose 325 H Carboxyhemoglobin 0.4 L Sodium Potassium Chloride Carbon Dioxide BUN Creatinine Glucose POC Glucose 209 H Lactic Acid Calcium Magnesium AST ALT Total Protein Albumin Arterial Blood Glucose 325 H Arterial Blood Ionized Calcium Urine WBC (Auto) Urine Creatinine 125.6 H 08/02/21 08/02/21 08/02/21 15:30 17:03 23:17 WBC RBC Hgb Hct RDW Lymph % (Auto) Lymph # (Auto) [place] # (Auto) Seg Neutrophils % Seg Neuts % (Manual) Lymphocytes % (Manual) Nucleated RBC % Seg Neutrophils # Seg Neutrophils # Man Lymphocytes # (Manual) Monocytes # (Manual) D-Dimer ABG pH POC ABG pCO2 POC ABG pO2 ABG Hemoglobin ABG Oxyhemoglobin ABG Sodium ABG Potassium ABG Chloride ABG Glucose Carboxyhemoglobin Sodium Potassium Chloride Carbon Dioxide BUN Creatinine Glucose POC Glucose 210 H 265 H Lactic Acid Calcium Magnesium AST ALT Total Protein Albumin Arterial Blood Glucose Arterial Blood Ionized Calcium Urine WBC (Auto) 47.0 H Urine Creatinine 08/02/21 08/02/21 08/03/21 Unknown Unknown 04:17 WBC 14.1 H RBC Hgb Hct RDW 16.3 H Lymph % (Auto) 5.1 L Lymph # (Auto) 0.7 L [place] # (Auto) 0.9 H Seg Neutrophils % 88.7 H Seg Neuts % (Manual) Lymphocytes % (Manual) Nucleated RBC % Seg Neutrophils # 12.5 H Seg Neutrophils # Man Lymphocytes # (Manual) Monocytes # (Manual) D-Dimer ABG pH POC ABG pCO2 POC ABG pO2 ABG Hemoglobin ABG Oxyhemoglobin ABG Sodium ABG Potassium ABG Chloride ABG Glucose Carboxyhemoglobin Sodium Potassium Chloride Carbon Dioxide BUN 72 H 72 H Creatinine 1.8 H 1.6 H Glucose 307 H 263 H POC Glucose Lactic Acid Calcium Magnesium AST ALT Total Protein Albumin Arterial Blood Glucose Arterial Blood Ionized Calcium Urine WBC (Auto) Urine Creatinine 08/03/21 08/03/21 08/03/21 04:17 05:30 08:30 WBC 13.9 H RBC Hgb Hct RDW 16.0 H Lymph % (Auto) Lymph # (Auto) [place] # (Auto) Seg Neutrophils % Seg Neuts % (Manual) Lymphocytes % (Manual) Nucleated RBC % Seg Neutrophils # Seg Neutrophils # Man Lymphocytes # (Manual) Monocytes # (Manual) D-Dimer ABG pH POC ABG pCO2 POC ABG pO2 ABG Hemoglobin ABG Oxyhemoglobin ABG Sodium ABG Potassium ABG Chloride ABG Glucose Carboxyhemoglobin Sodium Potassium Chloride Carbon Dioxide BUN Creatinine Glucose POC Glucose 280 H Lactic Acid Calcium Magnesium 3.00 H AST ALT Total Protein Albumin Arterial Blood Glucose Arterial Blood Ionized Calcium Urine WBC (Auto) Urine Creatinine 08/03/21 08/03/21 08/03/21 12:14 13:39 15:11 WBC RBC Hgb Hct RDW Lymph % (Auto) Lymph # (Auto) [place] # (Auto) Seg Neutrophils % Seg Neuts % (Manual) Lymphocytes % (Manual) Nucleated RBC % Seg Neutrophils # Seg Neutrophils # Man Lymphocytes # (Manual) Monocytes # (Manual) D-Dimer ABG pH POC ABG pCO2 POC ABG pO2 ABG Hemoglobin ABG Oxyhemoglobin ABG Sodium ABG Potassium ABG Chloride ABG Glucose 306 H Carboxyhemoglobin 0.3 L Sodium Potassium Chloride Carbon Dioxide BUN Creatinine Glucose POC Glucose 287 H Lactic Acid 2.10 H* Calcium Magnesium AST ALT Total Protein Albumin Arterial Blood Glucose 306 H Arterial Blood Ionized Calcium Urine WBC (Auto) Urine Creatinine 08/03/21 08/03/21 08/04/21 16:52 23:08 04:00 WBC RBC Hgb Hct RDW Lymph % (Auto) Lymph # (Auto) [place] # (Auto) Seg Neutrophils % Seg Neuts % (Manual) Lymphocytes % (Manual) Nucleated RBC % Seg Neutrophils # Seg Neutrophils # Man Lymphocytes # (Manual) Monocytes # (Manual) D-Dimer ABG pH POC ABG pCO2 54.3 H POC ABG pO2 82.2 L ABG Hemoglobin ABG Oxyhemoglobin ABG Sodium 145.1 H ABG Potassium 5.0 H ABG Chloride ABG Glucose 316 H Carboxyhemoglobin 0.3 L Sodium Potassium Chloride Carbon Dioxide BUN Creatinine Glucose POC Glucose 282 H 289 H Lactic Acid Calcium Magnesium AST ALT Total Protein Albumin Arterial Blood Glucose 316 H Arterial Blood Ionized Calcium Urine WBC (Auto) Urine Creatinine 08/04/21 08/04/21 08/04/21 04:38 04:38 05:19 WBC 17.7 H RBC Hgb Hct RDW 16.5 H Lymph % (Auto) Lymph # (Auto) [place] # (Auto) Seg Neutrophils % Seg Neuts % (Manual) Lymphocytes % (Manual) Nucleated RBC % Seg Neutrophils # Seg Neutrophils # Man Lymphocytes # (Manual) Monocytes # (Manual) D-Dimer ABG pH POC ABG pCO2 POC ABG pO2 ABG Hemoglobin ABG Oxyhemoglobin ABG Sodium ABG Potassium ABG Chloride ABG Glucose Carboxyhemoglobin Sodium Potassium Chloride 108.3 H Carbon Dioxide BUN 76 H Creatinine 1.4 H Glucose 310 H POC Glucose 268 H Lactic Acid Calcium Magnesium 2.70 H AST ALT Total Protein Albumin Arterial Blood Glucose Arterial Blood Ionized Calcium Urine WBC (Auto) Urine Creatinine 08/04/21 08/04/21 08/04/21 11:48 16:41 23:49 WBC RBC Hgb Hct RDW Lymph % (Auto) Lymph # (Auto) [place] # (Auto) Seg Neutrophils % Seg Neuts % (Manual) Lymphocytes % (Manual) Nucleated RBC % Seg Neutrophils # Seg Neutrophils # Man Lymphocytes # (Manual) Monocytes # (Manual) D-Dimer ABG pH POC ABG pCO2 POC ABG pO2 ABG Hemoglobin ABG Oxyhemoglobin ABG Sodium ABG Potassium ABG Chloride ABG Glucose Carboxyhemoglobin Sodium Potassium Chloride Carbon Dioxide BUN Creatinine Glucose POC Glucose 197 H 208 H 209 H Lactic Acid Calcium Magnesium AST ALT Total Protein Albumin Arterial Blood Glucose Arterial Blood Ionized Calcium Urine WBC (Auto) Urine Creatinine 08/05/21 08/05/21 08/05/21 04:00 04:50 04:50 WBC 19.0 H RBC Hgb Hct RDW 17.0 H Lymph % (Auto) Lymph # (Auto) [place] # (Auto) Seg Neutrophils % Seg Neuts % (Manual) 75.0 H Lymphocytes % (Manual) 2.0 L Nucleated RBC % Seg Neutrophils # Seg Neutrophils # Man 14.3 H Lymphocytes # (Manual) 0.4 L Monocytes # (Manual) 1.0 H D-Dimer ABG pH 7.314 L POC ABG pCO2 48.9 H POC ABG pO2 ABG Hemoglobin ABG Oxyhemoglobin ABG Sodium ABG Potassium 5.0 H ABG Chloride 109.0 H ABG Glucose 234 H Carboxyhemoglobin 0.4 L Sodium Potassium 5.2 H Chloride 110.0 H Carbon Dioxide BUN 90 H Creatinine 1.8 H Glucose 235 H POC Glucose Lactic Acid Calcium Magnesium 2.60 H AST ALT Total Protein Albumin Arterial Blood Glucose 234 H Arterial Blood Ionized Calcium Urine WBC (Auto) Urine Creatinine 08/05/21 08/05/21 08/05/21 06:05 12:02 17:08 WBC RBC Hgb Hct RDW Lymph % (Auto) Lymph # (Auto) [place] # (Auto) Seg Neutrophils % Seg Neuts % (Manual) Lymphocytes % (Manual) Nucleated RBC % Seg Neutrophils # Seg Neutrophils # Man Lymphocytes # (Manual) Monocytes # (Manual) D-Dimer ABG pH POC ABG pCO2 POC ABG pO2 ABG Hemoglobin ABG Oxyhemoglobin ABG Sodium ABG Potassium ABG Chloride ABG Glucose Carboxyhemoglobin Sodium Potassium Chloride Carbon Dioxide BUN Creatinine Glucose POC Glucose 225 H 193 H 263 H Lactic Acid Calcium Magnesium AST ALT Total Protein Albumin Arterial Blood Glucose Arterial Blood Ionized Calcium Urine WBC (Auto) Urine Creatinine 08/05/21 08/06/21 08/06/21 23:34 05:00 05:00 WBC 16.8 H RBC 3.64 L Hgb Hct RDW 16.6 H Lymph % (Auto) Lymph # (Auto) [place] # (Auto) Seg Neutrophils % Seg Neuts % (Manual) Lymphocytes % (Manual) Nucleated RBC % Seg Neutrophils # Seg Neutrophils # Man Lymphocytes # (Manual) Monocytes # (Manual) D-Dimer ABG pH POC ABG pCO2 POC ABG pO2 ABG Hemoglobin ABG Oxyhemoglobin ABG Sodium ABG Potassium ABG Chloride ABG Glucose Carboxyhemoglobin Sodium Potassium Chloride 109.3 H Carbon Dioxide BUN 89 H Creatinine 1.6 H Glucose 197 H POC Glucose 224 H Lactic Acid Calcium 8.2 L Magnesium AST ALT Total Protein Albumin Arterial Blood Glucose Arterial Blood Ionized Calcium Urine WBC (Auto) Urine Creatinine 08/06/21 08/06/21 08/06/21 05:26 11:38 16:30 WBC RBC Hgb Hct RDW Lymph % (Auto) Lymph # (Auto) [place] # (Auto) Seg Neutrophils % Seg Neuts % (Manual) Lymphocytes % (Manual) Nucleated RBC % Seg Neutrophils # Seg Neutrophils # Man Lymphocytes # (Manual) Monocytes # (Manual) D-Dimer ABG pH POC ABG pCO2 POC ABG pO2 ABG Hemoglobin ABG Oxyhemoglobin ABG Sodium ABG Potassium ABG Chloride ABG Glucose Carboxyhemoglobin Sodium Potassium Chloride Carbon Dioxide BUN Creatinine Glucose POC Glucose 168 H 160 H 135 H Lactic Acid Calcium Magnesium AST ALT Total Protein Albumin Arterial Blood Glucose Arterial Blood Ionized Calcium Urine WBC (Auto) Urine Creatinine 08/06/21 08/07/21 08/07/21 23:08 04:00 04:00 WBC 13.6 H RBC 3.30 L Hgb 9.5 L Hct 29.2 L RDW 16.7 H Lymph % (Auto) Lymph # (Auto) [place] # (Auto) Seg Neutrophils % Seg Neuts % (Manual) Lymphocytes % (Manual) Nucleated RBC % Seg Neutrophils # Seg Neutrophils # Man Lymphocytes # (Manual) Monocytes # (Manual) D-Dimer ABG pH POC ABG pCO2 POC ABG pO2 ABG Hemoglobin ABG Oxyhemoglobin ABG Sodium ABG Potassium ABG Chloride ABG Glucose Carboxyhemoglobin Sodium 146 H Potassium Chloride 111.4 H Carbon Dioxide BUN 78 H Creatinine 1.5 H Glucose 143 H POC Glucose 125 H Lactic Acid Calcium 8.2 L Magnesium AST ALT Total Protein Albumin Arterial Blood Glucose Arterial Blood Ionized Calcium Urine WBC (Auto) Urine Creatinine 08/07/21 08/07/21 08/07/21 04:00 05:16 12:12 WBC RBC Hgb Hct RDW Lymph % (Auto) Lymph # (Auto) [place] # (Auto) Seg Neutrophils % Seg Neuts % (Manual) Lymphocytes % (Manual) Nucleated RBC % Seg Neutrophils # Seg Neutrophils # Man Lymphocytes # (Manual) Monocytes # (Manual) D-Dimer ABG pH POC ABG pCO2 POC ABG pO2 80.1 L ABG Hemoglobin 9.8 L ABG Oxyhemoglobin ABG Sodium ABG Potassium ABG Chloride 111.0 H ABG Glucose 157 H Carboxyhemoglobin 0.3 L Sodium Potassium Chloride Carbon Dioxide BUN Creatinine Glucose POC Glucose 144 H 125 H Lactic Acid Calcium Magnesium AST ALT Total Protein Albumin Arterial Blood Glucose 157 H Arterial Blood Ionized Calcium 4.5 L Urine WBC (Auto) Urine Creatinine 08/07/21 08/08/21 08/08/21 23:20 04:47 06:00 WBC 13.8 H RBC 3.19 L Hgb 9.3 L Hct 28.4 L RDW 16.4 H Lymph % (Auto) Lymph # (Auto) [place] # (Auto) Seg Neutrophils % Seg Neuts % (Manual) Lymphocytes % (Manual) Nucleated RBC % Seg Neutrophils # Seg Neutrophils # Man Lymphocytes # (Manual) Monocytes # (Manual) D-Dimer ABG pH POC ABG pCO2 POC ABG pO2 ABG Hemoglobin ABG Oxyhemoglobin ABG Sodium ABG Potassium ABG Chloride ABG Glucose Carboxyhemoglobin Sodium Potassium Chloride Carbon Dioxide BUN Creatinine Glucose POC Glucose 118 H 130 H Lactic Acid Calcium Magnesium AST ALT Total Protein Albumin Arterial Blood Glucose Arterial Blood Ionized Calcium Urine WBC (Auto) Urine Creatinine 08/08/21 08/08/21 08/08/21 06:00 11:33 17:54 WBC RBC Hgb Hct RDW Lymph % (Auto) Lymph # (Auto) [place] # (Auto) Seg Neutrophils % Seg Neuts % (Manual) Lymphocytes % (Manual) Nucleated RBC % Seg Neutrophils # Seg Neutrophils # Man Lymphocytes # (Manual) Monocytes # (Manual) D-Dimer ABG pH POC ABG pCO2 POC ABG pO2 ABG Hemoglobin ABG Oxyhemoglobin ABG Sodium ABG Potassium ABG Chloride ABG Glucose Carboxyhemoglobin Sodium 147 H Potassium Chloride 112.4 H Carbon Dioxide BUN 71 H Creatinine 1.4 H Glucose 124 H POC Glucose 126 H 124 H Lactic Acid Calcium Magnesium AST ALT Total Protein Albumin Arterial Blood Glucose Arterial Blood Ionized Calcium Urine WBC (Auto) Urine Creatinine 08/08/21 08/09/21 08/09/21 23:41 06:06 10:00 WBC RBC Hgb Hct RDW Lymph % (Auto) Lymph # (Auto) [place] # (Auto) Seg Neutrophils % Seg Neuts % (Manual) Lymphocytes % (Manual) Nucleated RBC % Seg Neutrophils # Seg Neutrophils # Man Lymphocytes # (Manual) Monocytes # (Manual) D-Dimer ABG pH POC ABG pCO2 POC ABG pO2 ABG Hemoglobin ABG Oxyhemoglobin ABG Sodium ABG Potassium ABG Chloride ABG Glucose Carboxyhemoglobin Sodium 146 H Potassium Chloride 111.3 H Carbon Dioxide BUN 72 H Creatinine 1.5 H Glucose 119 H POC Glucose 119 H 127 H Lactic Acid Calcium Magnesium AST ALT 69 H Total Protein 5.2 L Albumin 2.6 L Arterial Blood Glucose Arterial Blood Ionized Calcium Urine WBC (Auto) Urine Creatinine 08/09/21 08/09/21 08/09/21 10:00 11:34 16:50 WBC 13.0 H RBC 2.88 L Hgb 8.5 L Hct 25.8 L RDW 16.5 H Lymph % (Auto) Lymph # (Auto) [place] # (Auto) Seg Neutrophils % Seg Neuts % (Manual) Lymphocytes % (Manual) Nucleated RBC % Seg Neutrophils # Seg Neutrophils # Man Lymphocytes # (Manual) Monocytes # (Manual) D-Dimer ABG pH POC ABG pCO2 POC ABG pO2 ABG Hemoglobin ABG Oxyhemoglobin ABG Sodium ABG Potassium ABG Chloride ABG Glucose Carboxyhemoglobin Sodium Potassium Chloride Carbon Dioxide BUN Creatinine Glucose POC Glucose 114 H 117 H Lactic Acid Calcium Magnesium AST ALT Total Protein Albumin Arterial Blood Glucose Arterial Blood Ionized Calcium Urine WBC (Auto) Urine Creatinine 08/10/21 08/10/21 08/10/21 00:12 05:20 05:20 WBC 13.2 H RBC 2.92 L Hgb 8.4 L Hct 25.9 L RDW 16.7 H Lymph % (Auto) Lymph # (Auto) [place] # (Auto) Seg Neutrophils % Seg Neuts % (Manual) Lymphocytes % (Manual) Nucleated RBC % Seg Neutrophils # Seg Neutrophils # Man Lymphocytes # (Manual) Monocytes # (Manual) D-Dimer ABG pH POC ABG pCO2 POC ABG pO2 ABG Hemoglobin ABG Oxyhemoglobin ABG Sodium ABG Potassium ABG Chloride ABG Glucose Carboxyhemoglobin Sodium 147 H Potassium Chloride 111.8 H Carbon Dioxide BUN 68 H Creatinine 1.4 H Glucose POC Glucose 114 H Lactic Acid Calcium Magnesium AST ALT Total Protein Albumin Arterial Blood Glucose Arterial Blood Ionized Calcium Urine WBC (Auto) Urine Creatinine 08/10/21 08/10/21 08/11/21 17:52 18:23 02:51 WBC RBC Hgb Hct RDW Lymph % (Auto) Lymph # (Auto) [place] # (Auto) Seg Neutrophils % Seg Neuts % (Manual) Lymphocytes % (Manual) Nucleated RBC % Seg Neutrophils # Seg Neutrophils # Man Lymphocytes # (Manual) Monocytes # (Manual) D-Dimer ABG pH POC ABG pCO2 POC ABG pO2 ABG Hemoglobin 8.7 L ABG Oxyhemoglobin ABG Sodium ABG Potassium ABG Chloride 111.0 H ABG Glucose Carboxyhemoglobin 0.2 L Sodium Potassium Chloride Carbon Dioxide BUN Creatinine Glucose POC Glucose 55 L 133 H Lactic Acid Calcium Magnesium AST ALT Total Protein Albumin Arterial Blood Glucose Arterial Blood Ionized Calcium 4.5 L Urine WBC (Auto) Urine Creatinine 08/11/21 08/11/21 08/11/21 04:30 11:36 Unknown WBC 12.2 H RBC 2.81 L Hgb 8.4 L Hct 25.4 L RDW 17.0 H Lymph % (Auto) Lymph # (Auto) [place] # (Auto) Seg Neutrophils % Seg Neuts % (Manual) Lymphocytes % (Manual) Nucleated RBC % Seg Neutrophils # Seg Neutrophils # Man Lymphocytes # (Manual) Monocytes # (Manual) D-Dimer ABG pH POC ABG pCO2 POC ABG pO2 ABG Hemoglobin ABG Oxyhemoglobin ABG Sodium ABG Potassium ABG Chloride ABG Glucose Carboxyhemoglobin Sodium Potassium Chloride 110.0 H Carbon Dioxide BUN 59 H Creatinine Glucose POC Glucose 116 H Lactic Acid Calcium 8.3 L Magnesium AST ALT 64 H Total Protein 5.5 L Albumin 2.6 L Arterial Blood Glucose Arterial Blood Ionized Calcium Urine WBC (Auto) Urine Creatinine Chest x-ray: image reviewed (minimal RLL air entry) Allied health notes reviewed: nursing
--- NOTE | 2021-08-11 12:36 | Progress Note ---
Assessment and Plan 66 yo F s/p percutaneous tracheostomy, fiberoptic bronchosocpy, PEG tube placement, POD 1 Plan: 1. continue TF at goal 2. Trach and vent management per ICU team 3. Will s/o Thank you, please call with questions. Subjective Date of service: 08/11/21 Narrative: Pt seen and examined. No overnight events. Tolerating TF. Objective Vital Signs - 12hr 08/11/21 08/11/21 08/11/21 00:46 01:00 01:16 Temperature Pulse Rate 91 H 91 H 87 Pulse Rate [ Anterior Bilateral] Pulse Rate [ From Monitor] Respiratory 16 15 16 Rate Respiratory Rate [Anterior Bilateral] Blood Pressure 154/74 154/74 123/64 O2 Sat by Pulse 100 99 99 Oximetry O2 Sat by Pulse Oximetry [ Assessment] 08/11/21 08/11/21 08/11/21 01:30 01:46 02:00 Temperature Pulse Rate 86 85 80 Pulse Rate [ Anterior Bilateral] Pulse Rate [ From Monitor] Respiratory 17 16 15 Rate Respiratory Rate [Anterior Bilateral] Blood Pressure 123/64 124/73 124/73 O2 Sat by Pulse 99 98 97 Oximetry O2 Sat by Pulse Oximetry [ Assessment] 08/11/21 08/11/21 08/11/21 02:16 02:30 02:45 Temperature Pulse Rate 78 79 79 Pulse Rate [ Anterior Bilateral] Pulse Rate [ From Monitor] Respiratory 16 16 16 Rate Respiratory Rate [Anterior Bilateral] Blood Pressure 119/63 119/63 122/69 O2 Sat by Pulse 97 99 98 Oximetry O2 Sat by Pulse Oximetry [ Assessment] 08/11/21 08/11/21 08/11/21 03:00 03:15 03:30 Temperature Pulse Rate 77 76 75 Pulse Rate [ Anterior Bilateral] Pulse Rate [ From Monitor] Respiratory 16 16 16 Rate Respiratory Rate [Anterior Bilateral] Blood Pressure 122/69 111/66 114/65 O2 Sat by Pulse 99 99 99 Oximetry O2 Sat by Pulse Oximetry [ Assessment] 08/11/21 08/11/21 08/11/21 03:45 04:00 04:05 Temperature 98.2 F Pulse Rate 78 76 76 Pulse Rate [ Anterior Bilateral] Pulse Rate [ 84 From Monitor] Respiratory 16 16 Rate Respiratory Rate [Anterior Bilateral] Blood Pressure 124/65 124/65 114/58 O2 Sat by Pulse 98 99 99 Oximetry O2 Sat by Pulse Oximetry [ Assessment] 08/11/21 08/11/21 08/11/21 04:11 04:15 04:30 Temperature Pulse Rate 82 85 Pulse Rate [ Anterior Bilateral] Pulse Rate [ From Monitor] Respiratory 16 12 Rate Respiratory Rate [Anterior Bilateral] Blood Pressure 135/77 135/77 O2 Sat by Pulse 96 98 Oximetry O2 Sat by Pulse 100 Oximetry [ Assessment] 08/11/21 08/11/21 08/11/21 04:45 05:00 05:15 Temperature Pulse Rate 86 85 84 Pulse Rate [ Anterior Bilateral] Pulse Rate [ From Monitor] Respiratory 16 16 16 Rate Respiratory Rate [Anterior Bilateral] Blood Pressure 112/73 112/64 117/67 O2 Sat by Pulse 97 97 97 Oximetry O2 Sat by Pulse Oximetry [ Assessment] 08/11/21 08/11/21 08/11/21 05:30 05:45 06:00 Temperature Pulse Rate 84 85 83 Pulse Rate [ Anterior Bilateral] Pulse Rate [ From Monitor] Respiratory 16 16 16 Rate Respiratory Rate [Anterior Bilateral] Blood Pressure 117/67 114/75 123/71 O2 Sat by Pulse 96 97 96 Oximetry O2 Sat by Pulse Oximetry [ Assessment] 08/11/21 08/11/21 08/11/21 06:15 06:30 06:46 Temperature Pulse Rate 82 82 82 Pulse Rate [ Anterior Bilateral] Pulse Rate [ From Monitor] Respiratory 16 16 16 Rate Respiratory Rate [Anterior Bilateral] Blood Pressure 117/69 125/68 O2 Sat by Pulse 96 97 95 Oximetry O2 Sat by Pulse Oximetry [ Assessment] 08/11/21 08/11/21 08/11/21 07:00 07:15 07:16 Temperature 99.2 F Pulse Rate 85 84 Pulse Rate [ Anterior Bilateral] Pulse Rate [ From Monitor] Respiratory 15 16 Rate Respiratory Rate [Anterior Bilateral] Blood Pressure 125/68 132/69 O2 Sat by Pulse 97 96 Oximetry O2 Sat by Pulse Oximetry [ Assessment] 08/11/21 08/11/21 08/11/21 07:30 07:45 07:50 Temperature Pulse Rate 83 87 89 Pulse Rate [ Anterior Bilateral] Pulse Rate [ From Monitor] Respiratory 16 16 Rate Respiratory Rate [Anterior Bilateral] Blood Pressure 132/69 118/70 118/70 O2 Sat by Pulse 97 95 97 Oximetry O2 Sat by Pulse Oximetry [ Assessment] 08/11/21 08/11/21 08/11/21 07:54 08:00 08:10 Temperature Pulse Rate 87 Pulse Rate [ 95 H Anterior Bilateral] Pulse Rate [ From Monitor] Respiratory 16 Rate Respiratory 16 Rate [Anterior Bilateral] Blood Pressure 118/70 O2 Sat by Pulse 96 99 Oximetry O2 Sat by Pulse 96 Oximetry [ Assessment] 08/11/21 08/11/21 08/11/21 08:15 08:30 08:45 Temperature Pulse Rate 88 89 90 Pulse Rate [ Anterior Bilateral] Pulse Rate [ From Monitor] Respiratory 16 16 17 Rate Respiratory Rate [Anterior Bilateral] Blood Pressure 123/72 118/70 140/78 O2 Sat by Pulse 96 96 97 Oximetry O2 Sat by Pulse Oximetry [ Assessment] 08/11/21 08/11/21 08/11/21 09:00 09:16 09:30 Temperature Pulse Rate 92 H 88 88 Pulse Rate [ Anterior Bilateral] Pulse Rate [ From Monitor] Respiratory 21 17 17 Rate Respiratory Rate [Anterior Bilateral] Blood Pressure 140/78 124/76 124/76 O2 Sat by Pulse 96 95 96 Oximetry O2 Sat by Pulse Oximetry [ Assessment] 08/11/21 08/11/21 08/11/21 09:45 10:00 10:15 Temperature Pulse Rate 89 90 91 H Pulse Rate [ Anterior Bilateral] Pulse Rate [ From Monitor] Respiratory 16 16 17 Rate Respiratory Rate [Anterior Bilateral] Blood Pressure 111/81 111/81 131/72 O2 Sat by Pulse 98 97 95 Oximetry O2 Sat by Pulse Oximetry [ Assessment] 08/11/21 08/11/21 08/11/21 10:30 10:45 11:00 Temperature Pulse Rate 95 H 94 H 94 H Pulse Rate [ Anterior Bilateral] Pulse Rate [ From Monitor] Respiratory 16 17 18 Rate Respiratory Rate [Anterior Bilateral] Blood Pressure 127/73 135/69 135/69 O2 Sat by Pulse 95 96 95 Oximetry O2 Sat by Pulse Oximetry [ Assessment] 08/11/21 08/11/21 08/11/21 11:15 11:30 11:45 Temperature Pulse Rate 93 H 92 H 93 H Pulse Rate [ Anterior Bilateral] Pulse Rate [ From Monitor] Respiratory 16 16 15 Rate Respiratory Rate [Anterior Bilateral] Blood Pressure 126/73 135/69 134/72 O2 Sat by Pulse 96 96 96 Oximetry O2 Sat by Pulse Oximetry [ Assessment] 08/11/21 08/11/21 08/11/21 11:46 11:47 12:00 Temperature 99.5 F Pulse Rate 94 H 93 H Pulse Rate [ Anterior Bilateral] Pulse Rate [ From Monitor] Respiratory 16 Rate Respiratory Rate [Anterior Bilateral] Blood Pressure 134/82 129/73 O2 Sat by Pulse 97 98 Oximetry O2 Sat by Pulse Oximetry [ Assessment] 08/11/21 12:15 Temperature Pulse Rate 88 Pulse Rate [ Anterior Bilateral] Pulse Rate [ From Monitor] Respiratory 16 Rate Respiratory Rate [Anterior Bilateral] Blood Pressure 121/76 O2 Sat by Pulse 99 Oximetry O2 Sat by Pulse Oximetry [ Assessment] - General physical appearance Narrative Exam: Gen: Sedated, on vent ENT: Tracheostomy in place and site is c/d/i CV: S1, S2+ Resp: on vent Abd: soft, NT, ND. PEG in place, site c/d/i with bumper at 6cm - Labs 08/11/21 Unknown 08/11/21 04:30 Diabetes panel 08/11/21 Range/Units 04:30 Sodium 145 (137-145) mmol/L Potassium 4.0 (3.6-5.0) mmol/L Chloride 110.0 H (98-107) mmol/L Carbon Dioxide 29 (22-30) mmol/L BUN 59 H (7-17) mg/dL Creatinine 1.2 (0.6-1.2) mg/dL Glucose 91 (65-100) mg/dL Calcium 8.3 L (8.4-10.2) mg/dL AST 36 (5-40) units/L ALT 64 H (7-56) units/L Alkaline Phosphatase 75 (35-129) units/L Total Protein 5.5 L (6.3-8.2) g/dL Albumin 2.6 L (3.9-5) g/dL Calcium panel 08/11/21 Range/Units 04:30 Calcium 8.3 L (8.4-10.2) mg/dL Albumin 2.6 L (3.9-5) g/dL Pituitary panel 08/11/21 Range/Units 04:30 Sodium 145 (137-145) mmol/L Potassium 4.0 (3.6-5.0) mmol/L Chloride 110.0 H (98-107) mmol/L Carbon Dioxide 29 (22-30) mmol/L BUN 59 H (7-17) mg/dL Creatinine 1.2 (0.6-1.2) mg/dL Glucose 91 (65-100) mg/dL Calcium 8.3 L (8.4-10.2) mg/dL Adrenal panel 08/11/21 Range/Units 04:30 Sodium 145 (137-145) mmol/L Potassium 4.0 (3.6-5.0) mmol/L Chloride 110.0 H (98-107) mmol/L Carbon Dioxide 29 (22-30) mmol/L BUN 59 H (7-17) mg/dL Creatinine 1.2 (0.6-1.2) mg/dL Glucose 91 (65-100) mg/dL Calcium 8.3 L (8.4-10.2) mg/dL Total Bilirubin 0.40 (0.1-1.2) mg/dL AST 36 (5-40) units/L ALT 64 H (7-56) units/L Alkaline Phosphatase 75 (35-129) units/L Total Protein 5.5 L (6.3-8.2) g/dL Albumin 2.6 L (3.9-5) g/dL
--- NOTE | 2021-08-11 13:43 | XRay Report ---
CHEST 1 VIEW 08/11/2021 1:03 PM INDICATION / CLINICAL INFORMATION: right lung atelectasis. COMPARISON: 08/10/2021 FINDINGS: SUPPORT DEVICES: Stable, satisfactory device positioning. HEART / MEDIASTINUM: No significant abnormality. LUNGS / PLEURA: Right lung aeration is mildly improved. However, there is severe residual right lung atelectasis. No pneumothorax. ADDITIONAL FINDINGS: No significant additional findings. IMPRESSION: 1. Mildly improved right lung aeration since the prior study. Signer Name: Ramses Barnes MD Signed: 08/11/2021 1:39 PM Workstation Name: [id number]
--- NOTE | 2021-08-11 14:19 | Progress Note ---
Assessment and Plan Assessment and plan: This is a 66-year-old female with HTN, DM, HLD and COPD admitted for acute hypoxic respiratory failure, COPD exacerbation, pneumonia and left lower leg DVT Neuro: Acute metabolic encephalopathy; agitatin -Sedated with Versed and fentanyl, Seroquel -daily SAT limited by agitation and hypoxia -RASS goal -2 to -3 -Bilateral restraints for safety -update family daily on plan of care Cardio: h/o HTN, s/p cardiac arrest, h/o HLD -Echocardiogram completed-> EF 50 to 55% with mild diastolic dysfunction -Blood pressure monitor per protocol -MAP goal > 65 -Patient had cardiac arrest on 07/29 and was intubated -Antihypertensives prn ST Respiratory: Acute hypoxic respiratory failure, COPD exacerbation; lung ca with mediastinal mass -CCM consulted, appreciate recommendations - S/P TRACH AND PEG -VAP bundle -Daily SBT and SAT trials as tolerated -Intubated with 7.50 ETT at 22 at the lips on 07/29 see RT flow sheet for vent settings -Daily ABG and CXR -Continue SPO2 monitoring -FOR TRACH AND PEG SUN AM; NPO PM; HOLD LOVENOX AT PA GI: constipation -TF-- NPO P MN -nutrition following -BR -PPI : Acute kidney injury likely 2/2 vasomotor nephropathy/pre-renal; HYPERNA -Nephrology consulted, appreciate recommendations -08/01 FeNA calculated at 0.13-> indicating prerenal -trend Cr -Strict intake and output -Avoid nephrotoxic medications -Renally dose medications -Elizabeth in place; Elizabeth changed on 08/05 -follow and replace electrolytes as needed -FWF FOR NA ID: Acute sepsis, pneumonia; febrile -ABX therapy: Cefepime -07/27 BC x2 with no growth after 4 days -07/29 tracheal aspirate with no growth -follow culture data -Monitor CBCs and fever curve -febrile to 100 -ID following Heme: Left lower leg DVT, leukocytosis; lung ca with med mass -cont Lovenox- HOLD AT PA -SCDs to bilateral lower extremities while in bed -Trend CBC -evidenced on BLE US -heme onc following Oncology: h/o breast cancer, Lung mass, breast carcinoma with metastasis -CXR shows suspicious nodular density at the left base -08/02 bronchoscopy -Heme/oncology consulted, appreciate recommendations -08/02 bronchoscopy completed; washings and brush sent for cytology, cell count and AFB-> preliminary results obtained, see report -08/02: AFB from bronc negative -08/02 PTH surgical report: Biomarker ER, CO, HER-2 negative, TTF1 and HMB 4 5 are not expressed -CEA low -Heme onc following ? transfer to higher level of care oncologist Dr. Wade at [place] at [phone] Endo: h/o DM; stress hyperglycemia -SSI -Avoid hypoglycemia -Lantus, titrate as needed The high probability of a clinically significant, sudden or life threatening deterioration of the [multi] system(s) required my full and direct attention, intervention and personal management. The aggregate critical care time was [60] minutes. This time is in addition to time spent performing reported procedures but includes the following: [x] Data Review and interpretation [x] Patient assessment and monitoring of vital signs [x] Documentation [x] Medication orders and management Disposition Plan: icu Total Time Spent with Patient (Minutes): 60 very guarded prognosis. History Interval history: This is a 66-year-old female with HTN, DM, HLD and COPD who presented to emergency department on 07/28 with complaints of difficulty in breathing ongoing for the past few days via EMS. En route she was given Solu-Medrol IV magnesium and albuterol nebulizing treatment. Upon arrival to emergency department patient had multiple rounds of embolizing treatments and was subsequently placed on BiPAP with some improvement. Patient has been fully vaccinated. Work-up in the emergency department revealed CXR suspicious for right-sided pneumonia, nodular density in the left base and increased interstitial markings which may be chronic. Patient was admitted to the hospitalist service with electrolyte imbalances, leukocytosis, COPD exacerbation, hypoxia and possible pneumonia. 07/29/2021. Patient seen this morning with Shabbir-Chavira respiration/agonal breathing. CODE BLUE was called and patient was intubated and placed on mechanical ventilation. Patient transferred to ICU. Critical care/pulmonary consulted. Patient currently with AC mode rate of 30, FiO2 100%, PEEP of 12. Continue IV antibiotics. Consult ID and oncology for further evaluation. Patient will likely need bronchoscopy for further evaluation of the lung mass. Doppler ultrasound revealedLLE DVT. Start anticoagulation. 07/30/2021. Patient appears much improved and more responsive this morning. Patient currently with AC mode ventilation rate of 24, tidal volume 450, PEEP of 8 and FiO2 35%. Spontaneous breathing trials with possible extubation today per pulmonary. Bronchoscopy per pulmonary. Continue Lovenox twice daily for DVT. Continue IV antibiotics for sepsis/pneumonia. ID consultation pending. Follow-up CEA, CA 15-3, CA 2729. 07/31/2021. Echocardiogram reveals left ventricular size and function are normal. EF 50 to 55% with mild diastolic dysfunction. Patient currently with CPAP/PSV trial 11/02. Anticipate extubation today per pulmonary. Bronchoscopy per pulmonary. Continue Lovenox twice daily for DVT. Continue IV antibiotics for sepsis/pneumonia. ID consultation pending. Follow-up CEA, CA 15-3, CA 2729. 08/01: ALIYAH 08/02: Patient had a bronchoscopy today. Cell count, cytology and AFB sent from samples. Patient remains sedated on fentanyl and Versed. Patient and daughter Rosana were updated. 08/03: [facility] follow-up on [facility] specimens and was informed patient specimens indicate cancer. Communicated to Dr. Abbott and he stated he will update family. 08/04: Patient remains sedated on fentanyl and Versed, patient has moments of agitation with any stimulation. CPAP trial unable to be completed today due to agitation. 08/05: Patient had low urine output overnight and Elizabeth catheter was changed this a.m. with 2 L of urine output received. Patient did have a increase in creatinine however this may have been obstructive process and nephrology is aware. Hematology/oncology spoke to family who wishes for everything to be done despite bronchial washings with cancer cells. [facility] contacted patient's oncologist to help facilitate transfer. We attempted to hold sedation for CPAP trial however patient became extremely agitated and sedation was restarted. 08/06: Surgery consulted for possible trach. Leukocytosis and renal function slowly improving. No acute events reported overnight. 08/07: Creatinine continues to decrease, patient has slight hyper natremia and hyperchloremia. Patient remains on fentanyl and Versed with periods of agitation. Increasing free water flushes. 08-08 improving cr; febrile; family wants full care/full code- heme onc following 08-09 LOW GRADE FEVERS; FOR TRACH/PEG WED AM 08/10: Patient seen and examined, had Bronchoscopy and Trach and PEG today, follow report. Continue supportive care. 08/11: Patient remains on full vent support. Continue supportive care. Hospitalist Physical - Physical exam Narrative exam: General appearance: Present: no acute distress, well-nourished, - EENT Eyes: Present: PERRL, EOM intact ENT: clear oral mucosa. Trach - Neck Neck: Present: supple, normal ROM - Respiratory Respiratory effort: normal - Cardiovascular Rhythm: regular - Extremities Extremities: no ischemia - Abdominal General gastrointestinal: soft - Integumentary Integumentary: Present: clear, warm, dry - Psychiatric Psychiatric: other - Neurologic Neurologic: other - Allied Health Allied health notes reviewed: nursing, RT, social work, case management - Constitutional Vitals: Temp Pulse Resp BP Pulse Ox 99.5 F 88 16 121/76 99 08/11/21 11:46 08/11/21 12:15 08/11/21 12:15 08/11/21 12:15 08/11/21 12:15 General appearance: Present: no acute distress, well-nourished, other Results - Labs CBC & Chem 7: 08/11/21 Unknown 08/11/21 04:30 Labs: Laboratory Last Values WBC 12.2 K/mm3 (4.5-11.0) H 08/11/21 Unknown RBC 2.81 M/mm3 (3.65-5.03) L 08/11/21 Unknown Hgb 8.4 gm/dl (10.1-14.3) L 08/11/21 Unknown Hct 25.4 % (30.3-42.9) L 08/11/21 Unknown MCV 90 fl (79-97) 08/11/21 Unknown MCH 30 pg (28-32) 08/11/21 Unknown MCHC 33 % (30-34) 08/11/21 Unknown RDW 17.0 % (13.2-15.2) H 08/11/21 Unknown Plt Count 221 K/mm3 (140-440) 08/11/21 Unknown Lymph % (Auto) 5.1 % (13.4-35.0) L 08/02/21 Unknown [place] % (Auto) 6.1 % (0.0-7.3) 08/02/21 Unknown Eos % (Auto) 0.0 % (0.0-4.3) 08/02/21 Unknown Baso % (Auto) 0.1 % (0.0-1.8) 08/02/21 Unknown Lymph # (Auto) 0.7 K/mm3 (1.2-5.4) L 08/02/21 Unknown [place] # (Auto) 0.9 K/mm3 (0.0-0.8) H 08/02/21 Unknown Eos # (Auto) 0.0 K/mm3 (0.0-0.4) 08/02/21 Unknown Baso # (Auto) 0.0 K/mm3 (0.0-0.1) 08/02/21 Unknown Add Manual Diff Complete 08/05/21 04:50 Total Counted 100 08/05/21 04:50 Seg Neutrophils % 88.7 % (40.0-70.0) H 08/02/21 Unknown Seg Neuts % (Manual) 75.0 % (40.0-70.0) H 08/05/21 04:50 Band Neutrophils % 8.0 % 08/05/21 04:50 Lymphocytes % (Manual) 2.0 % (13.4-35.0) L 08/05/21 04:50 Monocytes % (Manual) 5.0 % (0.0-7.3) 08/05/21 04:50 Eosinophils % (Manual) 1.0 % (0.0-4.3) 08/05/21 04:50 Metamyelocytes % 6.0 % 08/05/21 04:50 Myelocytes % 3.0 % 08/05/21 04:50 Nucleated RBC % Not Reportable 08/05/21 04:50 Seg Neutrophils # 12.5 K/mm3 (1.8-7.7) H 08/02/21 Unknown Seg Neutrophils # Man 14.3 K/mm3 (1.8-7.7) H 08/05/21 04:50 Band Neutrophils # 1.5 K/mm3 08/05/21 04:50 Lymphocytes # (Manual) 0.4 K/mm3 (1.2-5.4) L 08/05/21 04:50 Abs React Lymphs (Man) 0.0 K/mm3 08/05/21 04:50 Monocytes # (Manual) 1.0 K/mm3 (0.0-0.8) H 08/05/21 04:50 Eosinophils # (Manual) 0.2 K/mm3 (0.0-0.4) 08/05/21 04:50 Basophils # (Manual) 0.0 K/mm3 (0.0-0.1) 08/05/21 04:50 Metamyelocytes # 1.1 K/mm3 08/05/21 04:50 Myelocytes # 0.6 K/mm3 08/05/21 04:50 Promyelocytes # 0.0 K/mm3 08/05/21 04:50 Blast Cells # 0.0 K/mm3 08/05/21 04:50 WBC Morphology Not Reportable 08/05/21 04:50 Hypersegmented Neuts Not Reportable 08/05/21 04:50 Hyposegmented Neuts Not Reportable 08/05/21 04:50 Hypogranular Neuts Not Reportable 08/05/21 04:50 Smudge Cells Not Reportable 08/05/21 04:50 Toxic Granulation Not Reportable 08/05/21 04:50 Toxic Vacuolation Not Reportable 08/05/21 04:50 Dohle Bodies Not Reportable 08/05/21 04:50 Pelger-Huet Anomaly Not Reportable 08/05/21 04:50 Beryl Rods Not Reportable 08/05/21 04:50 Platelet Estimate Consistent w auto 08/05/21 04:50 Clumped Platelets Not Reportable 08/05/21 04:50 Plt Clumps, EDTA Not Reportable 08/05/21 04:50 Large Platelets Not Reportable 08/05/21 04:50 Giant Platelets Not Reportable 08/05/21 04:50 Platelet Satelliting Not Reportable 08/05/21 04:50 Plt Morphology Comment Not Reportable 08/05/21 04:50 RBC Morphology Not Reportable 08/05/21 04:50 Dimorphic RBCs Not Reportable 08/05/21 04:50 Polychromasia Not Reportable 08/05/21 04:50 Hypochromasia Not Reportable 08/05/21 04:50 Poikilocytosis Not Reportable 08/05/21 04:50 Anisocytosis Not Reportable 08/05/21 04:50 Microcytosis Not Reportable 08/05/21 04:50 Macrocytosis Not Reportable 08/05/21 04:50 Spherocytes Not Reportable 08/05/21 04:50 Pappenheimer Bodies Not Reportable 08/05/21 04:50 Sickle Cells Not Reportable 08/05/21 04:50 Target Cells Not Reportable 08/05/21 04:50 Tear Drop Cells Not Reportable 08/05/21 04:50 Ovalocytes Few 08/05/21 04:50 Helmet Cells Not Reportable 08/05/21 04:50 [place] Bodies Not Reportable 08/05/21 04:50 [place] Rings Not Reportable 08/05/21 04:50 [place] Cells Not Reportable 08/05/21 04:50 Bite Cells Not Reportable 08/05/21 04:50 Crenated Cell Not Reportable 08/05/21 04:50 Elliptocytes Not Reportable 08/05/21 04:50 Acanthocytes (Spur) Not Reportable 08/05/21 04:50 Rouleaux Not Reportable 08/05/21 04:50 Hemoglobin C Crystals Not Reportable 08/05/21 04:50 Schistocytes Not Reportable 08/05/21 04:50 Malaria parasites Not Reportable 08/05/21 04:50 [place] Bodies Not Reportable 08/05/21 04:50 Hem Pathologist Commnt No 08/05/21 04:50 PT 14.2 Sec. (12.2-14.9) 08/10/21 05:20 INR 1.05 (0.87-1.13) 08/10/21 05:20 APTT 29.9 Sec. (24.2-36.6) 08/10/21 05:20 D-Dimer 852.47 ng/mlDDU (0-234) H 07/29/21 07:17 ABG pH 7.398 (7.320-7.450) 08/11/21 02:51 POC ABG pCO2 40.5 mmHg (32.0-48.0) 08/11/21 02:51 POC ABG pO2 100.5 mmHg (83-108) 08/11/21 02:51 POC ABG HCO3 24.4 08/11/21 02:51 ABG O2 Saturation 97.7 (0-100) 08/11/21 02:51 POC ABG Base Excess -0.4 08/11/21 02:51 ABG Hemoglobin 8.7 (12.0-17.5) L 08/11/21 02:51 ABG Oxyhemoglobin 97.2 (94-98) 08/11/21 02:51 ABG Methemoglobin 0.3 (0.0-1.5) 08/11/21 02:51 ABG Sodium 140.9 mmol/L (136.0-145.0) 08/11/21 02:51 ABG Potassium 3.9 mmol/L (3.40-4.50) 08/11/21 02:51 ABG Chloride 111.0 mmol/L (98-107) H 08/11/21 02:51 ABG Glucose 89 mg/dL (65-95) 08/11/21 02:51 Carboxyhemoglobin 0.2 (0.5-1.5) L 08/11/21 02:51 FiO2 % 30.0 08/11/21 02:51 Sodium 145 mmol/L (137-145) 08/11/21 04:30 Potassium 4.0 mmol/L (3.6-5.0) 08/11/21 04:30 Chloride 110.0 mmol/L (98-107) H 08/11/21 04:30 Carbon Dioxide 29 mmol/L (22-30) 08/11/21 04:30 Anion Gap 10 mmol/L 08/11/21 04:30 BUN 59 mg/dL (7-17) H 08/11/21 04:30 Creatinine 1.2 mg/dL (0.6-1.2) 08/11/21 04:30 Estimated GFR 54 ml/min 08/11/21 04:30 BUN/Creatinine Ratio 49 % 08/11/21 04:30 Glucose 91 mg/dL (65-100) 08/11/21 04:30 POC Glucose 116 mg/dL (70-105) H 08/11/21 11:36 Lactic Acid 2.10 mmol/L (0.7-2.0) H* 08/03/21 15:11 Calcium 8.3 mg/dL (8.4-10.2) L 08/11/21 04:30 Phosphorus 4.10 mg/dL (2.5-4.5) 08/08/21 06:00 Magnesium 2.20 mg/dL (1.7-2.3) 08/08/21 06:00 Total Bilirubin 0.40 mg/dL (0.1-1.2) 08/11/21 04:30 AST 36 units/L (5-40) 08/11/21 04:30 ALT 64 units/L (7-56) H 08/11/21 04:30 Alkaline Phosphatase 75 units/L (35-129) 08/11/21 04:30 Total Protein 5.5 g/dL (6.3-8.2) L 08/11/21 04:30 Albumin 2.6 g/dL (3.9-5) L 08/11/21 04:30 Albumin/Globulin Ratio 0.9 % 08/11/21 04:30 Carcinoembryonic Ag <0.5 ng/mL (0.0-2.4) 07/31/21 04:45 Arterial Blood Glucose 89 mg/dL (65-95) 08/11/21 02:51 Arterial Blood Ionized Calcium 4.5 mg/dL (4.6-5.3) L 08/11/21 02:51 Urine Color Yellow (Yellow) 08/08/21 20:27 Urine Turbidity Slightly-cloudy (Clear) 08/08/21 20: Urine pH 5.0 (5.0-7.0) 08/08/21 20:27 Ur Specific [place] 1.014 (1.003-1.030) 08/08/21 20: Urine Protein 30 mg/dl mg/dL (Negative) 08/08/21 20: Urine Glucose (UA) Neg mg/dL (Negative) 08/08/21 20: Urine Ketones Neg mg/dL (Negative) 08/08/21 20:27 Urine Blood Mod (Negative) 08/08/21 20: Urine Nitrite Neg (Negative) 08/08/21 20: Urine Bilirubin Neg (Negative) 08/08/21 20:27 Urine Urobilinogen < 2.0 mg/dL (<2.0) 08/08/21 20:27 Ur Leukocyte Esterase Neg (Negative) 08/08/21 20: Urine WBC (Auto) 6.0 /HPF (0.0-6.0) 08/08/21 20: Urine RBC (Auto) 6.0 /HPF (0.0-6.0) 08/08/21 20:27 U Epithel Cells (Auto) < 1.0 /HPF (0-13.0) 08/08/21 20: Urine Bacteria (Auto) 1+ /HPF (Negative) 09/13/21 20:27 Urine Mucus Few /HPF 08/08/21 20:27 Urine Yeast (Budding) 1+ /HPF 08/08/21 20:27 Urine Creatinine 125.6 mg/dL (0.1-20.0) H 08/01/21 Unknown Urine Sodium 12 mmol/L 08/01/21 Unknown Double Strand DNA Ab 1 IU/mL (<=4) 08/02/21 15:40 Coronavirus (PCR) Negative (Negative) 07/29/21 07:58 Hepatitis A IgM Ab Non-reactive (NonReactive) 08/02/21 15:40 Hep Bs Antigen Nonreactive (Negative) 08/02/21 15:40 Hep B Core IgM Ab Non-reactive (NonReactive) 08/02/21 15:40 Hepatitis C Antibody Non-reactive (NonReactive) 08/02/21 15:40 AFB Identification Negative 08/02/21 14:30 Microbiology: Microbiology 08/08/21 16:39 Peripheral/Venous Blood Culture - Preliminary NO GROWTH AFTER 48 HOURS 08/08/21 16:39 Peripheral/Venous Blood Culture - Preliminary NO GROWTH AFTER 48 HOURS Elizabeth/IV: Voiding Method Indwelling Catheter Active Medications - Current Medications Current Medications: Generic Name Dose Route Start Last Admin Trade Name Freq PRN Reason Stop Dose Admin Acetaminophen 650 mg 07/28/21 02:11 Acetaminophen 325 Mg Tab PO Q6H PRN Pain MILD(1-3)/Fever >100.5/GARCIA Albuterol/Ipratropium 1 ampul 07/28/21 14:00 08/11/21 11:53 Ipratropium/Albuterol Sulfate 3 Ml Ampul.Neb IH Not Given TID DEMIAN Lipase/Protease/Amylase 1 each 07/29/21 13:01 Lipase 10,500/Protease 25,000/Amylase 43,750 (Units) Dr Campoverde FEEDTUBE PRN PRN For Clogged Feeding Tube Arformoterol Tartrate 15 mcg 07/28/21 20:00 08/11/21 11:52 Arformoterol 15 Mcg/2 Ml Nebu IH 15 mcg Q12HRT DEMIAN Administration Bisacodyl 10 mg 08/07/21 09:50 Bisacodyl 10 Mg Rect Supp CO QDAY PRN Constip unreliev by MOM/or NPO Budesonide 0.5 mg 07/28/21 20:00 08/11/21 11:52 Budesonide 0.5 Mg/2 Ml Nebu IH 0.5 mg Q12HRT DEMIAN Administration Dextrose 50 ml 07/28/21 02:11 08/10/21 18:05 Dextrose 50% In Water (25gm) 50 Ml Syringe IV 20 ml Q30MIN PRN Administration Hypoglycemia Protocol Enoxaparin Sodium 100 mg 08/11/21 10:00 08/11/21 09:31 Enoxaparin 100 Mg/1 Ml Inj SUB-Q 100 mg Q12HR DEMIAN Administration Protocol Famotidine 10 mg 08/02/21 10:00 08/11/21 09:31 Famotidine 20 Mg/2 Ml Inj IV 10 mg BID DEMIAN Administration Fentanyl 50 mcg 07/29/21 10:42 08/04/21 09:05 Fentanyl 100 Mcg/2 Ml Inj IV 50 mcg Q10MIN PRN Administration ANALGESIA Hydralazine HCl 10 mg 07/30/21 14:52 08/03/21 17:31 Hydralazine 20 Mg/1 Ml Inj IV 10 mg Q6H PRN Administration SBP > 165 Hydrophilic Ointment 1 applic 07/29/21 10:42 Lip Therapy Vaseline TP Q2HR PRN Dry Lips Fentanyl Citrate 2,000 mcg in 100 mls @ 5.35 mls/hr 07/29/21 11:00 08/11/21 07:07 Fentanyl Drip Premix IV 2 mcg/kg/hr TITR DEMIAN 10.7 mls/hr Titration Protocol 1 MCG/KG/HR Midazolam HCl 100 mg/ Sodium 100 mls @ 2 mls/hr 07/29/21 11:00 08/11/21 07:08 Chloride IV 2 mg/hr TITR DEMIAN 2 mls/hr Titration Protocol 2 MG/HR Norepinephrine 4 mg in 250 mls @ 7.5 mls/hr 07/29/21 21:00 Levophed Drip 4 Mg/Ns 250 Ml IV TITR DEMIAN Protocol 2 MCG/MIN Insulin Human Lispro 0 unit 07/29/21 12:00 08/11/21 12:20 Insulin Lispro 100 Unit/Ml SUB-Q Not Given Q6HR DEMIAN Protocol Lidocaine 20 ml 08/11/21 16:00 Lidocaine (1%) 10 Mg/1 Ml Vial 20 Ml Mdv INFILTRATI 08/11/21 20:00 ONCE@1600 [facility] Magnesium Hydroxide 30 ml 07/28/21 02:11 Magnesium Hydroxide (Mom) Oral Liqd Udc PO Q4H PRN Constipation Midazolam HCl 2 mg 07/29/21 10:42 08/10/21 20:58 Midazolam 2 Mg/2 Ml Inj IV 2 mg Q10MIN PRN Administration Sedation Multi-Ingred Cream/Lotion/Oil/Oint 1 applic 07/29/21 10:42 Mineral Oil/Petrolatum, White Ophth Oint 3.5 Gm OU Q4HR PRN Dry Eye(s) Polyethylene Glycol 17 gm 08/11/21 16:00 Polyethylene Glycol 3350 17 Gm Powder PO QDAY DEMIAN Quetiapine Fumarate 200 mg 08/05/21 22:00 08/11/21 09:25 Quetiapine 200 Mg Tab PO 200 mg BID DEMIAN Administration Senna/Docusate Sodium 1 tab 08/11/21 13:00 08/11/21 13:21 Sennosides/Docusate Sodium 8.6/50 Mg Tab FEEDTUBE 1 tab Q8H DEMIAN Administration Simple Syrup 15 ml 07/29/21 13:01 Simple Syrup 15 Ml FEEDTUBE PRN PRN Hypoglycemia Simple Syrup 30 ml 07/29/21 13:01 Simple Syrup 15 Ml FEEDTUBE PRN PRN Hypoglycemia Sodium Bicarbonate 325 mg 07/29/21 13:01 Sodium Bicarbonate 325 Mg Tab FEEDTUBE PRN PRN For Clogged Feeding Tube Sodium Chloride 10 ml 07/28/21 10:00 08/11/21 13:22 Sodium Chloride 0.9% 10 Ml Flush Syringe IV 10 ml BID DEMIAN Administration Sodium Chloride 10 ml 07/28/21 02:05 Sodium Chloride 0.9% 10 Ml Flush Syringe IV PRN PRN LINE FLUSH Nutrition/Malnutrition Assess - Dietary Evaluation Nutrition/Malnutrition Findings: Nutrition Notes Start: 07/28/21 14:44 Freq: Status: Active Protocol: Document 08/11/21 11:28 JACKIE (Rec: 08/11/21 11:31 [id number]) Nutrition Notes Initial or Follow up Reassessment Current Diagnosis COPD,Diabetes,Hypertension, Respiratory Failure Other Pertinent Diagnosis pneu Current Diet Vital AF at 50 ml/hr Labs/Tests BUN 59 Pertinent Medications Reviewed Height 5 ft Weight 107 kg [place] Body Weight (kg) 45.45 BMI 46.0 Weight Status Morbidly Obese Subjective/Other Information Pt got trach and PEG yesterday . TF resumed at goal and no signs of intolerance noted. RN reports pt without BM and will speak with MD. Percent of energy/protein needs met: 96%/67% Burn Absent Trauma Absent GI Symptoms Constipation,Last BM Current % PO Negligible Minimum of two criteria No #1 Nutrition Diagnosis Inadequate oral intake Diagnosis Progress(for reassessment Continues documentation) Is patient on ventilator? Yes Is Patient Ambulatory and/or Out of Bed No REE-([facility]-confined to bed) 1842.852 Kcal/Kg value to use for calculation 14 Approximate Energy Requirements Using 1498 kcal/Kg Calculation Used for Recommendations Kcal/kg Additional Notes Protein: (up to 2.5g/kg IBW) up to 134g Fluid: 1 ml/kcal or per MD Nutrition Intervention Change Diet Order: continue Nutrition Support: Vital AF 1.2 at 50 ml/hr For hypernatermia, flush 250 ml ml q4h or per MD. Once resolved, flush 100 ml q4h. Kcal 1,440 Protein (gm) 90 Fluid (mL) 973 Goal #1 Meet at least 75% of protein and energy needs via TF Anticipated Discharge Needs: Unable to determine at this time Follow-Up By: 08/16/21 Additional Comments F/u: stable TF, BM
[2021-08-11] MEDS ORDERED: LIDOCAINE (1%) 10 MG/1 ML VIAL 20 ML MDV INFILTRATI SCH (16:00)
[2021-08-11] MEDS: MIDAZOLAM 100 MG in SODIUM CHLORIDE 0.9% 80 ML IV SCH (16:03)
[2021-08-11] MEDS: POLYETHYLENE GLYCOL 3350 17 GM POWDER PO SCH (16:12)
[2021-08-12] MEDS: fentaNYL DRIP Premix 2,000 MCG/100 ML BAG IV SCH ×3 (00:09→22:07)
[2021-08-12] MEDS: INSULIN LISPRO 100 UNIT/ML SUB-Q SCH ×4 (00:27→18:20)
[2021-08-12] MEDS: FREE WATER PO SCH ×7 (02:00→22:07)
--- NOTE | 2021-08-12 03:01 | XRay Report ---
CHEST 1 VIEW 08/12/2021 1:37 AM INDICATION / CLINICAL INFORMATION: right lung atelectasis. COMPARISON: 08/11/2021 FINDINGS: SUPPORT DEVICES: Stable, satisfactory device positioning. HEART / MEDIASTINUM: No significant abnormality. LUNGS / PLEURA: Diffuse opacity throughout the right lung. Worsening opacity with decreased aeration in the right lower lung mild increased density left lower lung No pneumothorax. ADDITIONAL FINDINGS: No significant additional findings. IMPRESSION: 1. Mild worsening opacity in the right lung. Signer Name: Rigo Odom MD Signed: 08/12/2021 2:56 AM Workstation Name: [id number]
[2021-08-12] MEDS: IPRATROPIUM/ALBUTEROL SULFATE 3 ML AMPUL.NEB IH SCH ×4 (03:47→21:00)
[2021-08-12] MEDS: BUDESONIDE 0.5 MG/2 ML NEBU IH SCH ×3 (03:47→21:00)
[2021-08-12] MEDS: ARFORMOTEROL 15 MCG/2 ML NEBU IH SCH ×3 (03:47→21:00)
[2021-08-12] MEDS: SENNOSIDES/DOCUSATE SODIUM 8.6/50 MG TAB FEEDTUBE SCH ×3 (07:21→22:06)
[2021-08-12] MEDS: ENOXAPARIN 100 MG/1 ML INJ SUB-Q SCH (09:35)
[2021-08-12] MEDS: QUEtiapine 200 MG TAB PO SCH ×2 (09:36→22:06)
[2021-08-12] MEDS: POLYETHYLENE GLYCOL 3350 17 GM POWDER PO SCH (09:36)
--- NOTE | 2021-08-12 10:14 | Progress Note ---
Assessment and Plan Acute hypoxemic respiratory failure s/p tracheostomy s/p PEG Lung Mass -metastatic breast disease History of right breast cancer Leukocytosis DM II Hypertension Hyperlipidemia Tobacco use disorder Hypernatremia Hold tube feeding for OR CBC, PT/INR Hold VTE prophaylxis Plan for OR for exploration and to address tracheal bleeding -Trach care, airway clearance, secretion management - Hold SAT and SBT assessment today - continue to titrate supplemental oxygen to keep SpO2 88-90% - VAP bundle addressed, aspiration precautions HOB >30 - continue lung protective strategies - continue bronchodilators (GLADIS & LABA) with pulmonary hygiene per RT - continue accuchecks with glycemic control per SSI (While critically ill target blood glucose of 140-180 mg/dL; avoid hypoglycemia) - sedation prn for target RASS -1 to -2 - avoid nephrotoxins, renally dose all medications - continue to avoid benzodiazepines, reduce the possibility of delirium - prn analgesia per CPOT score - Maintenance of sleep-wake cycle, avoid delirium - enteric nutritional support-hold - VTE prophylaxis- hold -Stress ulcer prophylaxis - PT/OT/ROM exercises - continue mobility, off loading and frequent turning per facility protocol for pressure ulcer prevention - Monitor hemodynamics closely - continue other care per attending / other consultants COVID SPECIFIC INTERVENTIONS -Negative CONDITION: CRITICAL PROGNOSIS: GUARDED CODE STATUS: FULL CODE The high probability of a clinically significant, sudden or life-threatening deterioration of the [respiratory, cardiovascular, oncological & neurologic] system(s) required my full and direct attention, intervention and personal management. The aggregate critical care time was [35] minutes without overlap. Time includes spent on; [x] Data Review and interpretation [x] Patient assessment and monitoring of vital signs [x] Documentation [x] Medication orders and management Subjective Date of service: 08/12/21 Principal diagnosis: Ac hypoxemic resp failure ; AE-COPD; H/O CA Breast; DM II; HTN Interval history: Patient is seen today for: Acute hypoxemic respiratory failure; AE-COPD; Possible hypercapnia; H/O CA Breast; DM II; HTN Seen and examined at bedside; 24hour events reviewed; nursing and respiratory care staff consulted; no adverse overnight events reported to me; resting in bed; remains on MVS; tracheal bleeding active, Remains on Fentanyl infusion and Midazolam. Discussed with general surgery- plan for stat labs and OR for exploration Objective Vital Signs - 12hr 08/11/21 08/11/2108/11/21 22:16 22:30 22:46 Temperature Pulse Rate 101 H 101 H 100 H Pulse Rate [ Anterior Bilateral] Pulse Rate [ From Monitor] Respiratory 17 16 16 Rate Respiratory Rate [Anterior Bilateral] Blood Pressure 118/64 118/64 118/64 O2 Sat by Pulse 97 97 97 Oximetry O2 Sat by Pulse Oximetry [ Assessment] 08/11/21 08/11/21 08/11/21 23:00 23:16 23:30 Temperature Pulse Rate 99 H 99 H 99 H Pulse Rate [ Anterior Bilateral] Pulse Rate [ From Monitor] Respiratory 16 17 17 Rate Respiratory Rate [Anterior Bilateral] Blood Pressure 118/64 120/68 120/68 O2 Sat by Pulse 97 97 97 Oximetry O2 Sat by Pulse Oximetry [ Assessment] 08/11/21 08/11/21 08/11/21 23:41 23:46 23:56 Temperature 98.6 F Pulse Rate 99 H 100 H Pulse Rate [ Anterior Bilateral] Pulse Rate [ From Monitor] Respiratory 16 Rate Respiratory Rate [Anterior Bilateral] Blood Pressure 120/68 120/68 O2 Sat by Pulse 97 97 Oximetry O2 Sat by Pulse Oximetry [ Assessment] 08/12/21 08/12/21 08/12/21 00:00 00:16 00:30 Temperature Pulse Rate 100 H 100 H 100 H Pulse Rate [ Anterior Bilateral] Pulse Rate [ 99 H From Monitor] Respiratory 16 16 16 Rate Respiratory Rate [Anterior Bilateral] Blood Pressure 120/68 121/62 121/62 O2 Sat by Pulse 97 97 98 Oximetry O2 Sat by Pulse Oximetry [ Assessment] 08/12/21 08/12/21 08/12/21 00:46 01:00 01:16 Temperature Pulse Rate 100 H 98 H 100 H Pulse Rate [ Anterior Bilateral] Pulse Rate [ From Monitor] Respiratory 16 15 17 Rate Respiratory Rate [Anterior Bilateral] Blood Pressure 121/62 121/62 109/69 O2 Sat by Pulse 97 98 98 Oximetry O2 Sat by Pulse Oximetry [ Assessment] 08/12/21 08/12/21 08/12/21 01:30 01:46 02:00 Temperature Pulse Rate 100 H 98 H 98 H Pulse Rate [ Anterior Bilateral] Pulse Rate [ From Monitor] Respiratory 17 16 16 Rate Respiratory Rate [Anterior Bilateral] Blood Pressure 109/69 109/69 109/69 O2 Sat by Pulse 98 98 97 Oximetry O2 Sat by Pulse Oximetry [ Assessment] 08/12/21 08/12/21 08/12/21 02:16 02:30 02:46 Temperature Pulse Rate 97 H 102 H 101 H Pulse Rate [ Anterior Bilateral] Pulse Rate [ From Monitor] Respiratory 16 16 15 Rate Respiratory Rate [Anterior Bilateral] Blood Pressure 114/66 114/66 114/66 O2 Sat by Pulse 98 98 97 Oximetry O2 Sat by Pulse Oximetry [ Assessment] 08/12/21 08/12/21 08/12/21 03:00 03:16 03:30 Temperature Pulse Rate 99 H 97 H 94 H Pulse Rate [ Anterior Bilateral] Pulse Rate [ From Monitor] Respiratory 15 16 16 Rate Respiratory Rate [Anterior Bilateral] Blood Pressure 114/66 127/80 127/80 O2 Sat by Pulse 97 98 98 Oximetry O2 Sat by Pulse 99 Oximetry [ Assessment] 08/12/21 08/12/21 08/12/21 03:34 03:46 04:00 Temperature 98.8 F Pulse Rate 105 H 99 H Pulse Rate [ Anterior Bilateral] Pulse Rate [ 97 H From Monitor] Respiratory 26 H 17 Rate Respiratory Rate [Anterior Bilateral] Blood Pressure 127/80 127/80 O2 Sat by Pulse 98 99 Oximetry O2 Sat by Pulse Oximetry [ Assessment] 08/12/21 08/12/21 08/12/21 04:05 04:16 04:30 Temperature Pulse Rate 97 H 97 H 95 H Pulse Rate [ Anterior Bilateral] Pulse Rate [ From Monitor] Respiratory 16 17 Rate Respiratory Rate [Anterior Bilateral] Blood Pressure 125/81 125/81 125/81 O2 Sat by Pulse 99 98 99 Oximetry O2 Sat by Pulse Oximetry [ Assessment] 08/12/21 08/12/21 08/12/21 04:46 05:00 05:16 Temperature Pulse Rate 97 H 95 H 98 H Pulse Rate [ Anterior Bilateral] Pulse Rate [ From Monitor] Respiratory 17 16 16 Rate Respiratory Rate [Anterior Bilateral] Blood Pressure 125/81 125/81 118/74 O2 Sat by Pulse 97 96 98 Oximetry O2 Sat by Pulse Oximetry [ Assessment] 08/12/21 08/12/21 08/12/21 05:30 05:46 06:00 Temperature Pulse Rate 99 H 97 H 96 H Pulse Rate [ Anterior Bilateral] Pulse Rate [ From Monitor] Respiratory 18 16 18 Rate Respiratory Rate [Anterior Bilateral] Blood Pressure 118/74 118/74 118/74 O2 Sat by Pulse 98 98 97 Oximetry O2 Sat by Pulse Oximetry [ Assessment] 08/12/21 08/12/21 08/12/21 06:16 06:30 06:46 Temperature Pulse Rate 94 H 93 H 90 Pulse Rate [ Anterior Bilateral] Pulse Rate [ From Monitor] Respiratory 16 16 16 Rate Respiratory Rate [Anterior Bilateral] Blood Pressure 112/67 112/67 112/67 O2 Sat by Pulse 97 96 96 Oximetry O2 Sat by Pulse Oximetry [ Assessment] 08/12/21 08/12/21 08/12/21 07:00 07:16 07:30 Temperature Pulse Rate 90 89 91 H Pulse Rate [ Anterior Bilateral] Pulse Rate [ From Monitor] Respiratory 16 16 16 Rate Respiratory Rate [Anterior Bilateral] Blood Pressure 112/67 114/63 112/67 O2 Sat by Pulse 97 97 96 Oximetry O2 Sat by Pulse Oximetry [ Assessment] 08/12/21 08/12/21 08/12/21 07:46 08:00 08:16 Temperature 99.6 F Pulse Rate 90 89 88 Pulse Rate [ Anterior Bilateral] Pulse Rate [ 86 From Monitor] Respiratory 16 16 16 Rate Respiratory Rate [Anterior Bilateral] Blood Pressure 112/67 112/67 110/64 O2 Sat by Pulse 97 98 96 Oximetry O2 Sat by Pulse Oximetry [ Assessment] 08/12/21 08/12/21 08/12/21 08:24 08:25 08:30 Temperature Pulse Rate 91 H 88 Pulse Rate [ 90 Anterior Bilateral] Pulse Rate [ From Monitor] Respiratory 16 Rate Respiratory 16 Rate [Anterior Bilateral] Blood Pressure 110/64 110/64 O2 Sat by Pulse 97 97 Oximetry O2 Sat by Pulse Oximetry [ Assessment] 08/12/21 08/12/21 08:46 09:00 Temperature Pulse Rate 90 86 Pulse Rate [ Anterior Bilateral] Pulse Rate [ From Monitor] Respiratory 17 16 Rate Respiratory Rate [Anterior Bilateral] Blood Pressure 110/64 110/64 O2 Sat by Pulse 96 99 Oximetry O2 Sat by Pulse Oximetry [ Assessment] Constitutional: no acute distress (sedate), other (eldely obese female without increased respiratory effort at rest on MVS) Eyes: non-icteric ENT: oropharynx moist, other (trach with bleeding) Neck: supple, no lymphadenopathy, no JVD Effort: mildly labored Ascultation: Right: diminished breath sounds, Bilateral: wheezes (central), rales, rhonchi, other (prolonged expiratory phase) Percussion: Bilateral: not dull Cardiovascular: regular rate and rhythm Gastrointestinal: normoactive bowel sounds, soft, non-tender, non-distended Integumentary: normal Extremities: no cyanosis, no edema, pulses normal, no ischemia or petechiae Neurologic: non-focal exam, pupils equal and round Psychiatric: other (sedated) CBC and BMP: 08/14/21 04:00 08/14/21 04:00 ABG, PT/INR, D-dimer: ABG ABG pH 7.398 (7.320-7.450) 08/11/21 02:51 POC ABG pCO2 40.5 mmHg (32.0-48.0) 08/11/21 02:51 POC ABG pO2 100.5 mmHg (83-108) 08/11/21 02:51 POC ABG HCO3 24.4 08/11/21 02:51 ABG O2 Saturation 97.7 (0-100) 08/11/21 02:51 PT/INR, D-dimer PT 14.2 Sec. (12.2-14.9) 08/10/21 05:20 INR 1.05 (0.87-1.13) 08/10/21 05:20 D-Dimer 852.47 ng/mlDDU (0-234) H 07/29/21 07:17 Abnormal lab findings: Abnormal Labs 07/27/21 07/27/21 07/27/21 22:57 22:57 22:57 WBC 20.3 H RBC Hgb Hct RDW Lymph % (Auto) Lymph # (Auto) [place] # (Auto) Seg Neutrophils % Seg Neuts % (Manual) 89.0 H Lymphocytes % (Manual) 9.0 L Nucleated RBC % Seg Neutrophils # Seg Neutrophils # Man 18.1 H Lymphocytes # (Manual) Monocytes # (Manual) D-Dimer ABG pH POC ABG pCO2 POC ABG pO2 ABG Hemoglobin ABG Oxyhemoglobin ABG Sodium ABG Potassium ABG Chloride ABG Glucose Carboxyhemoglobin Sodium Potassium 3.5 L Chloride 96.9 L Carbon Dioxide 20 L BUN 19 H Creatinine Glucose 204 H POC Glucose Lactic Acid 7.20 H* Calcium Magnesium AST 98 H ALT 90 H Total Protein Albumin Arterial Blood Glucose Arterial Blood Ionized Calcium Urine WBC (Auto) Urine Creatinine 07/28/21 07/28/21 07/28/21 01:31 07:49 10:00 WBC RBC Hgb Hct RDW Lymph % (Auto) Lymph # (Auto) [place] # (Auto) Seg Neutrophils % Seg Neuts % (Manual) Lymphocytes % (Manual) Nucleated RBC % Seg Neutrophils # Seg Neutrophils # Man Lymphocytes # (Manual) Monocytes # (Manual) D-Dimer ABG pH POC ABG pCO2 POC ABG pO2 ABG Hemoglobin ABG Oxyhemoglobin ABG Sodium ABG Potassium ABG Chloride ABG Glucose Carboxyhemoglobin Sodium Potassium Chloride Carbon Dioxide BUN Creatinine Glucose POC Glucose 194 H Lactic Acid 6.90 H* 6.70 H* Calcium Magnesium AST ALT Total Protein Albumin Arterial Blood Glucose Arterial Blood Ionized Calcium Urine WBC (Auto) Urine Creatinine 07/28/21 07/28/21 07/28/21 12:41 13:21 16:21 WBC RBC Hgb Hct RDW Lymph % (Auto) Lymph # (Auto) [place] # (Auto) Seg Neutrophils % Seg Neuts % (Manual) Lymphocytes % (Manual) Nucleated RBC % Seg Neutrophils # Seg Neutrophils # Man Lymphocytes # (Manual) Monocytes # (Manual) D-Dimer ABG pH POC ABG pCO2 POC ABG pO2 ABG Hemoglobin ABG Oxyhemoglobin ABG Sodium ABG Potassium ABG Chloride ABG Glucose Carboxyhemoglobin Sodium Potassium Chloride Carbon Dioxide BUN Creatinine Glucose POC Glucose 159 H 155 H Lactic Acid 6.10 H* Calcium Magnesium AST ALT Total Protein Albumin Arterial Blood Glucose Arterial Blood Ionized Calcium Urine WBC (Auto) Urine Creatinine 07/28/21 07/29/21 07/29/21 22:03 04:44 04:44 WBC 17.0 H RBC Hgb Hct RDW Lymph % (Auto) Lymph # (Auto) [place] # (Auto) Seg Neutrophils % Seg Neuts % (Manual) 82.0 H Lymphocytes % (Manual) 11.0 L Nucleated RBC % Seg Neutrophils # Seg Neutrophils # Man 13.9 H Lymphocytes # (Manual) Monocytes # (Manual) 1.0 H D-Dimer ABG pH POC ABG pCO2 POC ABG pO2 ABG Hemoglobin ABG Oxyhemoglobin ABG Sodium ABG Potassium ABG Chloride ABG Glucose Carboxyhemoglobin Sodium Potassium Chloride Carbon Dioxide BUN 23 H Creatinine Glucose 196 H POC Glucose 187 H Lactic Acid Calcium Magnesium AST ALT Total Protein Albumin Arterial Blood Glucose Arterial Blood Ionized Calcium Urine WBC (Auto) Urine Creatinine 07/29/21 07/29/21 07/29/21 06:56 07:17 07:17 WBC 26.1 H RBC Hgb Hct 43.3 H RDW 16.0 H Lymph % (Auto) Lymph # (Auto) [place] # (Auto) Seg Neutrophils % Seg Neuts % (Manual) 80.0 H Lymphocytes % (Manual) Nucleated RBC % Seg Neutrophils # Seg Neutrophils # Man 20.9 H Lymphocytes # (Manual) Monocytes # (Manual) D-Dimer ABG pH POC ABG pCO2 POC ABG pO2 ABG Hemoglobin ABG Oxyhemoglobin ABG Sodium ABG Potassium ABG Chloride ABG Glucose Carboxyhemoglobin Sodium Potassium Chloride Carbon Dioxide 20 L D BUN 23 H Creatinine Glucose 308 H POC Glucose 165 H Lactic Acid Calcium Magnesium AST ALT Total Protein Albumin Arterial Blood Glucose Arterial Blood Ionized Calcium Urine WBC (Auto) Urine Creatinine 07/29/21 07/29/21 07/29/21 07:17 09:16 10:30 WBC RBC Hgb Hct RDW Lymph % (Auto) Lymph # (Auto) [place] # (Auto) Seg Neutrophils % Seg Neuts % (Manual) Lymphocytes % (Manual) Nucleated RBC % Seg Neutrophils # Seg Neutrophils # Man Lymphocytes # (Manual) Monocytes # (Manual) D-Dimer 852.47 H ABG pH 7.236 L POC ABG pCO2 56.0 H POC ABG pO2 266.4 H ABG Hemoglobin ABG Oxyhemoglobin 99.1 H ABG Sodium 132.3 L ABG Potassium 4.9 H ABG Chloride ABG Glucose 202 H Carboxyhemoglobin 0.2 L Sodium Potassium Chloride Carbon Dioxide BUN Creatinine Glucose POC Glucose 271 H Lactic Acid Calcium Magnesium AST ALT Total Protein Albumin Arterial Blood Glucose 202 H Arterial Blood Ionized Calcium Urine WBC (Auto) Urine Creatinine 07/29/21 07/29/21 07/30/21 17:54 23:32 05:08 WBC RBC Hgb Hct RDW Lymph % (Auto) Lymph # (Auto) [place] # (Auto) Seg Neutrophils % Seg Neuts % (Manual) Lymphocytes % (Manual) Nucleated RBC % Seg Neutrophils # Seg Neutrophils # Man Lymphocytes # (Manual) Monocytes # (Manual) D-Dimer ABG pH POC ABG pCO2 POC ABG pO2 ABG Hemoglobin ABG Oxyhemoglobin ABG Sodium ABG Potassium ABG Chloride ABG Glucose Carboxyhemoglobin Sodium Potassium Chloride Carbon Dioxide BUN Creatinine Glucose POC Glucose 168 H 205 H 214 H Lactic Acid Calcium Magnesium AST ALT Total Protein Albumin Arterial Blood Glucose Arterial Blood Ionized Calcium Urine WBC (Auto) Urine Creatinine 07/30/21 07/30/21 07/30/21 06:01 11:32 17:34 WBC RBC Hgb Hct RDW Lymph % (Auto) Lymph # (Auto) [place] # (Auto) Seg Neutrophils % Seg Neuts % (Manual) Lymphocytes % (Manual) Nucleated RBC % Seg Neutrophils # Seg Neutrophils # Man Lymphocytes # (Manual) Monocytes # (Manual) D-Dimer ABG pH 7.480 H POC ABG pCO2 23.6 L POC ABG pO2 280.0 H ABG Hemoglobin ABG Oxyhemoglobin 99.3 H ABG Sodium 133.7 L ABG Potassium ABG Chloride ABG Glucose 232 H Carboxyhemoglobin 0 L Sodium Potassium Chloride Carbon Dioxide BUN Creatinine Glucose POC Glucose 207 H 239 H Lactic Acid Calcium Magnesium AST ALT Total Protein Albumin Arterial Blood Glucose 232 H Arterial Blood Ionized Calcium 4.4 L Urine WBC (Auto) Urine Creatinine 07/30/21 07/31/21 07/31/21 23:39 03:34 04:45 WBC 15.0 H RBC Hgb Hct RDW 15.5 H Lymph % (Auto) Lymph # (Auto) [place] # (Auto) Seg Neutrophils % Seg Neuts % (Manual) 89.0 H Lymphocytes % (Manual) 7.0 L Nucleated RBC % Seg Neutrophils # Seg Neutrophils # Man 13.4 H Lymphocytes # (Manual) 1.1 L Monocytes # (Manual) D-Dimer ABG pH 7.481 H POC ABG pCO2 31.8 L POC ABG pO2 ABG Hemoglobin ABG Oxyhemoglobin ABG Sodium 135.2 L ABG Potassium 3.3 L ABG Chloride ABG Glucose 188 H Carboxyhemoglobin 0.1 L Sodium Potassium Chloride Carbon Dioxide BUN Creatinine Glucose POC Glucose 176 H Lactic Acid Calcium Magnesium AST ALT Total Protein Albumin Arterial Blood Glucose 188 H Arterial Blood Ionized Calcium 4.4 L Urine WBC (Auto) Urine Creatinine 07/31/21 07/31/21 07/31/21 04:45 04:45 11:28 WBC RBC Hgb Hct RDW Lymph % (Auto) Lymph # (Auto) [place] # (Auto) Seg Neutrophils % Seg Neuts % (Manual) Lymphocytes % (Manual) Nucleated RBC % Seg Neutrophils # Seg Neutrophils # Man Lymphocytes # (Manual) Monocytes # (Manual) D-Dimer ABG pH POC ABG pCO2 POC ABG pO2 ABG Hemoglobin ABG Oxyhemoglobin ABG Sodium ABG Potassium ABG Chloride ABG Glucose Carboxyhemoglobin Sodium Potassium 3.4 L Chloride Carbon Dioxide BUN 61 H Creatinine 2.6 H D Glucose 176 H POC Glucose 195 H 245 H Lactic Acid Calcium Magnesium AST ALT Total Protein Albumin Arterial Blood Glucose Arterial Blood Ionized Calcium Urine WBC (Auto) Urine Creatinine 07/31/21 07/31/21 08/01/21 17:32 23:58 01:00 WBC RBC Hgb Hct RDW Lymph % (Auto) Lymph # (Auto) [place] # (Auto) Seg Neutrophils % Seg Neuts % (Manual) Lymphocytes % (Manual) Nucleated RBC % Seg Neutrophils # Seg Neutrophils # Man Lymphocytes # (Manual) Monocytes # (Manual) D-Dimer ABG pH POC ABG pCO2 POC ABG pO2 ABG Hemoglobin ABG Oxyhemoglobin ABG Sodium ABG Potassium ABG Chloride ABG Glucose 284 H Carboxyhemoglobin 0.3 L Sodium Potassium Chloride Carbon Dioxide BUN Creatinine Glucose POC Glucose 251 H 294 H Lactic Acid Calcium Magnesium AST ALT Total Protein Albumin Arterial Blood Glucose 284 H Arterial Blood Ionized Calcium Urine WBC (Auto) Urine Creatinine 08/01/21 08/01/21 08/01/21 05:50 05:50 06:11 WBC 16.2 H RBC Hgb Hct RDW 15.5 H Lymph % (Auto) Lymph # (Auto) [place] # (Auto) Seg Neutrophils % Seg Neuts % (Manual) 93.0 H Lymphocytes % (Manual) 2.0 L Nucleated RBC % 3.0 H Seg Neutrophils # Seg Neutrophils # Man 15.1 H Lymphocytes # (Manual) 0.3 L Monocytes # (Manual) D-Dimer ABG pH POC ABG pCO2 POC ABG pO2 ABG Hemoglobin ABG Oxyhemoglobin ABG Sodium ABG Potassium ABG Chloride ABG Glucose Carboxyhemoglobin Sodium Potassium Chloride Carbon Dioxide BUN 64 H Creatinine 1.9 H Glucose 277 H POC Glucose 256 H Lactic Acid Calcium Magnesium AST ALT Total Protein Albumin Arterial Blood Glucose Arterial Blood Ionized Calcium Urine WBC (Auto) Urine Creatinine 08/01/21 08/01/21 08/01/21 11:39 17:25 23:53 WBC RBC Hgb Hct RDW Lymph % (Auto) Lymph # (Auto) [place] # (Auto) Seg Neutrophils % Seg Neuts % (Manual) Lymphocytes % (Manual) Nucleated RBC % Seg Neutrophils # Seg Neutrophils # Man Lymphocytes # (Manual) Monocytes # (Manual) D-Dimer ABG pH POC ABG pCO2 POC ABG pO2 ABG Hemoglobin ABG Oxyhemoglobin ABG Sodium ABG Potassium ABG Chloride ABG Glucose Carboxyhemoglobin Sodium Potassium Chloride Carbon Dioxide BUN Creatinine Glucose POC Glucose 289 H 275 H 327 H Lactic Acid Calcium Magnesium AST ALT Total Protein Albumin Arterial Blood Glucose Arterial Blood Ionized Calcium Urine WBC (Auto) Urine Creatinine 08/01/21 08/02/21 08/02/21 Unknown 04:00 12:03 WBC RBC Hgb Hct RDW Lymph % (Auto) Lymph # (Auto) [place] # (Auto) Seg Neutrophils % Seg Neuts % (Manual) Lymphocytes % (Manual) Nucleated RBC % Seg Neutrophils # Seg Neutrophils # Man Lymphocytes # (Manual) Monocytes # (Manual) D-Dimer ABG pH POC ABG pCO2 POC ABG pO2 ABG Hemoglobin ABG Oxyhemoglobin ABG Sodium ABG Potassium ABG Chloride ABG Glucose 325 H Carboxyhemoglobin 0.4 L Sodium Potassium Chloride Carbon Dioxide BUN Creatinine Glucose POC Glucose 209 H Lactic Acid Calcium Magnesium AST ALT Total Protein Albumin Arterial Blood Glucose 325 H Arterial Blood Ionized Calcium Urine WBC (Auto) Urine Creatinine 125.6 H 08/02/21 08/02/21 08/02/21 15:30 17:03 23:17 WBC RBC Hgb Hct RDW Lymph % (Auto) Lymph # (Auto) [place] # (Auto) Seg Neutrophils % Seg Neuts % (Manual) Lymphocytes % (Manual) Nucleated RBC % Seg Neutrophils # Seg Neutrophils # Man Lymphocytes # (Manual) Monocytes # (Manual) D-Dimer ABG pH POC ABG pCO2 POC ABG pO2 ABG Hemoglobin ABG Oxyhemoglobin ABG Sodium ABG Potassium ABG Chloride ABG Glucose Carboxyhemoglobin Sodium Potassium Chloride Carbon Dioxide BUN Creatinine Glucose POC Glucose 210 H 265 H Lactic Acid Calcium Magnesium AST ALT Total Protein Albumin Arterial Blood Glucose Arterial Blood Ionized Calcium Urine WBC (Auto) 47.0 H Urine Creatinine 08/02/21 08/02/21 08/03/21 Unknown Unknown 04:17 WBC 14.1 H RBC Hgb Hct RDW 16.3 H Lymph % (Auto) 5.1 L Lymph # (Auto) 0.7 L [place] # (Auto) 0.9 H Seg Neutrophils % 88.7 H Seg Neuts % (Manual) Lymphocytes % (Manual) Nucleated RBC % Seg Neutrophils # 12.5 H Seg Neutrophils # Man Lymphocytes # (Manual) Monocytes # (Manual) D-Dimer ABG pH POC ABG pCO2 POC ABG pO2 ABG Hemoglobin ABG Oxyhemoglobin ABG Sodium ABG Potassium ABG Chloride ABG Glucose Carboxyhemoglobin Sodium Potassium Chloride Carbon Dioxide BUN 72 H 72 H Creatinine 1.8 H 1.6 H Glucose 307 H 263 H POC Glucose Lactic Acid Calcium Magnesium AST ALT Total Protein Albumin Arterial Blood Glucose Arterial Blood Ionized Calcium Urine WBC (Auto) Urine Creatinine 08/03/21 08/03/21 08/03/21 04:17 05:30 08:30 WBC 13.9 H RBC Hgb Hct RDW 16.0 H Lymph % (Auto) Lymph # (Auto) [place] # (Auto) Seg Neutrophils % Seg Neuts % (Manual) Lymphocytes % (Manual) Nucleated RBC % Seg Neutrophils # Seg Neutrophils # Man Lymphocytes # (Manual) Monocytes # (Manual) D-Dimer ABG pH POC ABG pCO2 POC ABG pO2 ABG Hemoglobin ABG Oxyhemoglobin ABG Sodium ABG Potassium ABG Chloride ABG Glucose Carboxyhemoglobin Sodium Potassium Chloride Carbon Dioxide BUN Creatinine Glucose POC Glucose 280 H Lactic Acid Calcium Magnesium 3.00 H AST ALT Total Protein Albumin Arterial Blood Glucose Arterial Blood Ionized Calcium Urine WBC (Auto) Urine Creatinine 08/03/21 08/03/21 08/03/21 12:14 13:39 15:11 WBC RBC Hgb Hct RDW Lymph % (Auto) Lymph # (Auto) [place] # (Auto) Seg Neutrophils % Seg Neuts % (Manual) Lymphocytes % (Manual) Nucleated RBC % Seg Neutrophils # Seg Neutrophils # Man Lymphocytes # (Manual) Monocytes # (Manual) D-Dimer ABG pH POC ABG pCO2 POC ABG pO2 ABG Hemoglobin ABG Oxyhemoglobin ABG Sodium ABG Potassium ABG Chloride ABG Glucose 306 H Carboxyhemoglobin 0.3 L Sodium Potassium Chloride Carbon Dioxide BUN Creatinine Glucose POC Glucose 287 H Lactic Acid 2.10 H* Calcium Magnesium AST ALT Total Protein Albumin Arterial Blood Glucose 306 H Arterial Blood Ionized Calcium Urine WBC (Auto) Urine Creatinine 08/03/21 08/03/21 08/04/21 16:52 23:08 04:00 WBC RBC Hgb Hct RDW Lymph % (Auto) Lymph # (Auto) [place] # (Auto) Seg Neutrophils % Seg Neuts % (Manual) Lymphocytes % (Manual) Nucleated RBC % Seg Neutrophils # Seg Neutrophils # Man Lymphocytes # (Manual) Monocytes # (Manual) D-Dimer ABG pH POC ABG pCO2 54.3 H POC ABG pO2 82.2 L ABG Hemoglobin ABG Oxyhemoglobin ABG Sodium 145.1 H ABG Potassium 5.0 H ABG Chloride ABG Glucose 316 H Carboxyhemoglobin 0.3 L Sodium Potassium Chloride Carbon Dioxide BUN Creatinine Glucose POC Glucose 282 H 289 H Lactic Acid Calcium Magnesium AST ALT Total Protein Albumin Arterial Blood Glucose 316 H Arterial Blood Ionized Calcium Urine WBC (Auto) Urine Creatinine 08/04/21 08/04/21 08/04/21 04:38 04:38 05:19 WBC 17.7 H RBC Hgb Hct RDW 16.5 H Lymph % (Auto) Lymph # (Auto) [place] # (Auto) Seg Neutrophils % Seg Neuts % (Manual) Lymphocytes % (Manual) Nucleated RBC % Seg Neutrophils # Seg Neutrophils # Man Lymphocytes # (Manual) Monocytes # (Manual) D-Dimer ABG pH POC ABG pCO2 POC ABG pO2 ABG Hemoglobin ABG Oxyhemoglobin ABG Sodium ABG Potassium ABG Chloride ABG Glucose Carboxyhemoglobin Sodium Potassium Chloride 108.3 H Carbon Dioxide BUN 76 H Creatinine 1.4 H Glucose 310 H POC Glucose 268 H Lactic Acid Calcium Magnesium 2.70 H AST ALT Total Protein Albumin Arterial Blood Glucose Arterial Blood Ionized Calcium Urine WBC (Auto) Urine Creatinine 08/04/21 08/04/21 08/04/21 11:48 16:41 23:49 WBC RBC Hgb Hct RDW Lymph % (Auto) Lymph # (Auto) [place] # (Auto) Seg Neutrophils % Seg Neuts % (Manual) Lymphocytes % (Manual) Nucleated RBC % Seg Neutrophils # Seg Neutrophils # Man Lymphocytes # (Manual) Monocytes # (Manual) D-Dimer ABG pH POC ABG pCO2 POC ABG pO2 ABG Hemoglobin ABG Oxyhemoglobin ABG Sodium ABG Potassium ABG Chloride ABG Glucose Carboxyhemoglobin Sodium Potassium Chloride Carbon Dioxide BUN Creatinine Glucose POC Glucose 197 H 208 H 209 H Lactic Acid Calcium Magnesium AST ALT Total Protein Albumin Arterial Blood Glucose Arterial Blood Ionized Calcium Urine WBC (Auto) Urine Creatinine 08/05/21 08/05/21 08/05/21 04:00 04:50 04:50 WBC 19.0 H RBC Hgb Hct RDW 17.0 H Lymph % (Auto) Lymph # (Auto) [place] # (Auto) Seg Neutrophils % Seg Neuts % (Manual) 75.0 H Lymphocytes % (Manual) 2.0 L Nucleated RBC % Seg Neutrophils # Seg Neutrophils # Man 14.3 H Lymphocytes # (Manual) 0.4 L Monocytes # (Manual) 1.0 H D-Dimer ABG pH 7.314 L POC ABG pCO2 48.9 H POC ABG pO2 ABG Hemoglobin ABG Oxyhemoglobin ABG Sodium ABG Potassium 5.0 H ABG Chloride 109.0 H ABG Glucose 234 H Carboxyhemoglobin 0.4 L Sodium Potassium 5.2 H Chloride 110.0 H Carbon Dioxide BUN 90 H Creatinine 1.8 H Glucose 235 H POC Glucose Lactic Acid Calcium Magnesium 2.60 H AST ALT Total Protein Albumin Arterial Blood Glucose 234 H Arterial Blood Ionized Calcium Urine WBC (Auto) Urine Creatinine 08/05/21 08/05/21 08/05/21 06:05 12:02 17:08 WBC RBC Hgb Hct RDW Lymph % (Auto) Lymph # (Auto) [place] # (Auto) Seg Neutrophils % Seg Neuts % (Manual) Lymphocytes % (Manual) Nucleated RBC % Seg Neutrophils # Seg Neutrophils # Man Lymphocytes # (Manual) Monocytes # (Manual) D-Dimer ABG pH POC ABG pCO2 POC ABG pO2 ABG Hemoglobin ABG Oxyhemoglobin ABG Sodium ABG Potassium ABG Chloride ABG Glucose Carboxyhemoglobin Sodium Potassium Chloride Carbon Dioxide BUN Creatinine Glucose POC Glucose 225 H 193 H 263 H Lactic Acid Calcium Magnesium AST ALT Total Protein Albumin Arterial Blood Glucose Arterial Blood Ionized Calcium Urine WBC (Auto) Urine Creatinine 08/05/21 08/06/21 08/06/21 23:34 05:00 05:00 WBC 16.8 H RBC 3.64 L Hgb Hct RDW 16.6 H Lymph % (Auto) Lymph # (Auto) [place] # (Auto) Seg Neutrophils % Seg Neuts % (Manual) Lymphocytes % (Manual) Nucleated RBC % Seg Neutrophils # Seg Neutrophils # Man Lymphocytes # (Manual) Monocytes # (Manual) D-Dimer ABG pH POC ABG pCO2 POC ABG pO2 ABG Hemoglobin ABG Oxyhemoglobin ABG Sodium ABG Potassium ABG Chloride ABG Glucose Carboxyhemoglobin Sodium Potassium Chloride 109.3 H Carbon Dioxide BUN 89 H Creatinine 1.6 H Glucose 197 H POC Glucose 224 H Lactic Acid Calcium 8.2 L Magnesium AST ALT Total Protein Albumin Arterial Blood Glucose Arterial Blood Ionized Calcium Urine WBC (Auto) Urine Creatinine 08/06/21 08/06/21 08/06/21 05:26 11:38 16:30 WBC RBC Hgb Hct RDW Lymph % (Auto) Lymph # (Auto) [place] # (Auto) Seg Neutrophils % Seg Neuts % (Manual) Lymphocytes % (Manual) Nucleated RBC % Seg Neutrophils # Seg Neutrophils # Man Lymphocytes # (Manual) Monocytes # (Manual) D-Dimer ABG pH POC ABG pCO2 POC ABG pO2 ABG Hemoglobin ABG Oxyhemoglobin ABG Sodium ABG Potassium ABG Chloride ABG Glucose Carboxyhemoglobin Sodium Potassium Chloride Carbon Dioxide BUN Creatinine Glucose POC Glucose 168 H 160 H 135 H Lactic Acid Calcium Magnesium AST ALT Total Protein Albumin Arterial Blood Glucose Arterial Blood Ionized Calcium Urine WBC (Auto) Urine Creatinine 08/06/21 08/07/21 08/07/21 23:08 04:00 04:00 WBC 13.6 H RBC 3.30 L Hgb 9.5 L Hct 29.2 L RDW 16.7 H Lymph % (Auto) Lymph # (Auto) [place] # (Auto) Seg Neutrophils % Seg Neuts % (Manual) Lymphocytes % (Manual) Nucleated RBC % Seg Neutrophils # Seg Neutrophils # Man Lymphocytes # (Manual) Monocytes # (Manual) D-Dimer ABG pH POC ABG pCO2 POC ABG pO2 ABG Hemoglobin ABG Oxyhemoglobin ABG Sodium ABG Potassium ABG Chloride ABG Glucose Carboxyhemoglobin Sodium 146 H Potassium Chloride 111.4 H Carbon Dioxide BUN 78 H Creatinine 1.5 H Glucose 143 H POC Glucose 125 H Lactic Acid Calcium 8.2 L Magnesium AST ALT Total Protein Albumin Arterial Blood Glucose Arterial Blood Ionized Calcium Urine WBC (Auto) Urine Creatinine 08/07/21 08/07/21 08/07/21 04:00 05:16 12:12 WBC RBC Hgb Hct RDW Lymph % (Auto) Lymph # (Auto) [place] # (Auto) Seg Neutrophils % Seg Neuts % (Manual) Lymphocytes % (Manual) Nucleated RBC % Seg Neutrophils # Seg Neutrophils # Man Lymphocytes # (Manual) Monocytes # (Manual) D-Dimer ABG pH POC ABG pCO2 POC ABG pO2 80.1 L ABG Hemoglobin 9.8 L ABG Oxyhemoglobin ABG Sodium ABG Potassium ABG Chloride 111.0 H ABG Glucose 157 H Carboxyhemoglobin 0.3 L Sodium Potassium Chloride Carbon Dioxide BUN Creatinine Glucose POC Glucose 144 H 125 H Lactic Acid Calcium Magnesium AST ALT Total Protein Albumin Arterial Blood Glucose 157 H Arterial Blood Ionized Calcium 4.5 L Urine WBC (Auto) Urine Creatinine 08/07/21 08/08/21 08/08/21 23:20 04:47 06:00 WBC 13.8 H RBC 3.19 L Hgb 9.3 L Hct 28.4 L RDW 16.4 H Lymph % (Auto) Lymph # (Auto) [place] # (Auto) Seg Neutrophils % Seg Neuts % (Manual) Lymphocytes % (Manual) Nucleated RBC % Seg Neutrophils # Seg Neutrophils # Man Lymphocytes # (Manual) Monocytes # (Manual) D-Dimer ABG pH POC ABG pCO2 POC ABG pO2 ABG Hemoglobin ABG Oxyhemoglobin ABG Sodium ABG Potassium ABG Chloride ABG Glucose Carboxyhemoglobin Sodium Potassium Chloride Carbon Dioxide BUN Creatinine Glucose POC Glucose 118 H 130 H Lactic Acid Calcium Magnesium AST ALT Total Protein Albumin Arterial Blood Glucose Arterial Blood Ionized Calcium Urine WBC (Auto) Urine Creatinine 08/08/21 08/08/21 08/08/21 06:00 11:33 17:54 WBC RBC Hgb Hct RDW Lymph % (Auto) Lymph # (Auto) [place] # (Auto) Seg Neutrophils % Seg Neuts % (Manual) Lymphocytes % (Manual) Nucleated RBC % Seg Neutrophils # Seg Neutrophils # Man Lymphocytes # (Manual) Monocytes # (Manual) D-Dimer ABG pH POC ABG pCO2 POC ABG pO2 ABG Hemoglobin ABG Oxyhemoglobin ABG Sodium ABG Potassium ABG Chloride ABG Glucose Carboxyhemoglobin Sodium 147 H Potassium Chloride 112.4 H Carbon Dioxide BUN 71 H Creatinine 1.4 H Glucose 124 H POC Glucose 126 H 124 H Lactic Acid Calcium Magnesium AST ALT Total Protein Albumin Arterial Blood Glucose Arterial Blood Ionized Calcium Urine WBC (Auto) Urine Creatinine 08/08/21 08/09/21 08/09/21 23:41 06:06 10:00 WBC RBC Hgb Hct RDW Lymph % (Auto) Lymph # (Auto) [place] # (Auto) Seg Neutrophils % Seg Neuts % (Manual) Lymphocytes % (Manual) Nucleated RBC % Seg Neutrophils # Seg Neutrophils # Man Lymphocytes # (Manual) Monocytes # (Manual) D-Dimer ABG pH POC ABG pCO2 POC ABG pO2 ABG Hemoglobin ABG Oxyhemoglobin ABG Sodium ABG Potassium ABG Chloride ABG Glucose Carboxyhemoglobin Sodium 146 H Potassium Chloride 111.3 H Carbon Dioxide BUN 72 H Creatinine 1.5 H Glucose 119 H POC Glucose 119 H 127 H Lactic Acid Calcium Magnesium AST ALT 69 H Total Protein 5.2 L Albumin 2.6 L Arterial Blood Glucose Arterial Blood Ionized Calcium Urine WBC (Auto) Urine Creatinine 08/09/21 08/09/21 08/09/21 10:00 11:34 16:50 WBC 13.0 H RBC 2.88 L Hgb 8.5 L Hct 25.8 L RDW 16.5 H Lymph % (Auto) Lymph # (Auto) [place] # (Auto) Seg Neutrophils % Seg Neuts % (Manual) Lymphocytes % (Manual) Nucleated RBC % Seg Neutrophils # Seg Neutrophils # Man Lymphocytes # (Manual) Monocytes # (Manual) D-Dimer ABG pH POC ABG pCO2 POC ABG pO2 ABG Hemoglobin ABG Oxyhemoglobin ABG Sodium ABG Potassium ABG Chloride ABG Glucose Carboxyhemoglobin Sodium Potassium Chloride Carbon Dioxide BUN Creatinine Glucose POC Glucose 114 H 117 H Lactic Acid Calcium Magnesium AST ALT Total Protein Albumin Arterial Blood Glucose Arterial Blood Ionized Calcium Urine WBC (Auto) Urine Creatinine 08/10/21 08/10/21 08/10/21 00:12 05:20 05:20 WBC 13.2 H RBC 2.92 L Hgb 8.4 L Hct 25.9 L RDW 16.7 H Lymph % (Auto) Lymph # (Auto) [place] # (Auto) Seg Neutrophils % Seg Neuts % (Manual) Lymphocytes % (Manual) Nucleated RBC % Seg Neutrophils # Seg Neutrophils # Man Lymphocytes # (Manual) Monocytes # (Manual) D-Dimer ABG pH POC ABG pCO2 POC ABG pO2 ABG Hemoglobin ABG Oxyhemoglobin ABG Sodium ABG Potassium ABG Chloride ABG Glucose Carboxyhemoglobin Sodium 147 H Potassium Chloride 111.8 H Carbon Dioxide BUN 68 H Creatinine 1.4 H Glucose POC Glucose 114 H Lactic Acid Calcium Magnesium AST ALT Total Protein Albumin Arterial Blood Glucose Arterial Blood Ionized Calcium Urine WBC (Auto) Urine Creatinine 08/10/21 08/10/21 08/11/21 17:52 18:23 02:51 WBC RBC Hgb Hct RDW Lymph % (Auto) Lymph # (Auto) [place] # (Auto) Seg Neutrophils % Seg Neuts % (Manual) Lymphocytes % (Manual) Nucleated RBC % Seg Neutrophils # Seg Neutrophils # Man Lymphocytes # (Manual) Monocytes # (Manual) D-Dimer ABG pH POC ABG pCO2 POC ABG pO2 ABG Hemoglobin 8.7 L ABG Oxyhemoglobin ABG Sodium ABG Potassium ABG Chloride 111.0 H ABG Glucose Carboxyhemoglobin 0.2 L Sodium Potassium Chloride Carbon Dioxide BUN Creatinine Glucose POC Glucose 55 L 133 H Lactic Acid Calcium Magnesium AST ALT Total Protein Albumin Arterial Blood Glucose Arterial Blood Ionized Calcium 4.5 L Urine WBC (Auto) Urine Creatinine 08/11/21 08/11/21 08/11/21 04:30 11:36 17:11 WBC RBC Hgb Hct RDW Lymph % (Auto) Lymph # (Auto) [place] # (Auto) Seg Neutrophils % Seg Neuts % (Manual) Lymphocytes % (Manual) Nucleated RBC % Seg Neutrophils # Seg Neutrophils # Man Lymphocytes # (Manual) Monocytes # (Manual) D-Dimer ABG pH POC ABG pCO2 POC ABG pO2 ABG Hemoglobin ABG Oxyhemoglobin ABG Sodium ABG Potassium ABG Chloride ABG Glucose Carboxyhemoglobin Sodium Potassium Chloride 110.0 H Carbon Dioxide BUN 59 H Creatinine Glucose POC Glucose 116 H 115 H Lactic Acid Calcium 8.3 L Magnesium AST ALT 64 H Total Protein 5.5 L Albumin 2.6 L Arterial Blood Glucose Arterial Blood Ionized Calcium Urine WBC (Auto) Urine Creatinine 08/11/21 08/11/21 08/12/21 23:18 Unknown 05:05 WBC 12.2 H RBC 2.81 L Hgb 8.4 L Hct 25.4 L RDW 17.0 H Lymph % (Auto) Lymph # (Auto) [place] # (Auto) Seg Neutrophils % Seg Neuts % (Manual) Lymphocytes % (Manual) Nucleated RBC % Seg Neutrophils # Seg Neutrophils # Man Lymphocytes # (Manual) Monocytes # (Manual) D-Dimer ABG pH POC ABG pCO2 POC ABG pO2 ABG Hemoglobin ABG Oxyhemoglobin ABG Sodium ABG Potassium ABG Chloride ABG Glucose Carboxyhemoglobin Sodium Potassium Chloride Carbon Dioxide BUN Creatinine Glucose POC Glucose 126 H 131 H Lactic Acid Calcium Magnesium AST ALT Total Protein Albumin Arterial Blood Glucose Arterial Blood Ionized Calcium Urine WBC (Auto) Urine Creatinine Chest x-ray: image reviewed Allied health notes reviewed: nursing
[2021-08-12] MEDS: FAMOTIDINE 20 MG/2 ML INJ IV SCH ×2 (10:36→22:06)
--- NOTE | 2021-08-12 11:42 | Progress Note ---
Assessment and Plan Assessment and plan: This is a 66-year-old female with HTN, DM, HLD and COPD admitted for acute hypoxic respiratory failure, COPD exacerbation, pneumonia and left lower leg DVT Neuro: Acute metabolic encephalopathy; agitatin -Sedated with Versed and fentanyl, Seroquel -daily SAT limited by agitation and hypoxia -RASS goal -2 to -3 -Bilateral restraints for safety -update family daily on plan of care Cardio: h/o HTN, s/p cardiac arrest, h/o HLD -Echocardiogram completed-> EF 50 to 55% with mild diastolic dysfunction -Blood pressure monitor per protocol -MAP goal > 65 -Patient had cardiac arrest on 07/29 and was intubated -Antihypertensives prn ST Respiratory: Acute hypoxic respiratory failure, COPD exacerbation; lung ca with mediastinal mass -CCM consulted, appreciate recommendations - S/P TRACH AND PEG -Noted bleeding around trach today 08/12/2021 patient going for emergent surgery. -VAP bundle -Daily SBT and SAT trials as tolerated -Intubated with 7.50 ETT at 22 at the lips on 07/29 see RT flow sheet for vent settings -Daily ABG and CXR -Continue SPO2 monitoring -FOR TRACH AND PEG WED AM; NPO PM; HOLD LOVENOX AT MN GI: constipation -TF-- NPO P MN -nutrition following -BR -PPI : Acute kidney injury likely 2/2 vasomotor nephropathy/pre-renal; HYPERNA -Nephrology consulted, appreciate recommendations -08/01 FeNA calculated at 0.13-> indicating prerenal -trend Cr -Strict intake and output -Avoid nephrotoxic medications -Renally dose medications -Elizabeth in place; Elizabeth changed on 08/05 -follow and replace electrolytes as needed -FWF FOR NA ID: Acute sepsis, pneumonia; febrile -ABX therapy: Cefepime -07/27 BC x2 with no growth after 4 days -07/29 tracheal aspirate with no growth -follow culture data -Monitor CBCs and fever curve -febrile to 100 -ID following Heme: Left lower leg DVT, leukocytosis; lung ca with med mass -cont Lovenox- HOLD AT MN -SCDs to bilateral lower extremities while in bed -Trend CBC -evidenced on BLE US -heme onc following Oncology: h/o breast cancer, Lung mass, breast carcinoma with metastasis -CXR shows suspicious nodular density at the left base -08/02 bronchoscopy -Heme/oncology consulted, appreciate recommendations -08/02 bronchoscopy completed; washings and brush sent for cytology, cell count and AFB-> preliminary results obtained, see report -08/02: AFB from bronc negative -08/02 PTH surgical report: Biomarker ER, NC, HER-2 negative, TTF1 and HMB 4 5 are not expressed -CEA low -Heme onc following ? transfer to higher level of care oncologist Dr. Wade at [place] at [phone] Endo: h/o DM; stress hyperglycemia -SSI -Avoid hypoglycemia -Lantus, titrate as needed The high probability of a clinically significant, sudden or life threatening deterioration of the [multi] system(s) required my full and direct attention, i ntervention and personal management. The aggregate critical care time was [60] minutes. This time is in addition to time spent performing reported procedures but includes the following: [x] Data Review and interpretation [x] Patient assessment and monitoring of vital signs [x] Documentation [x] Medication orders and management Disposition Plan: icu Total Time Spent with Patient (Minutes): 45 very guarded prognosis. History Interval history: This is a 66-year-old female with HTN, DM, HLD and COPD who presented to emergency department on 07/28 with complaints of difficulty in breathing ongoing for the past few days via EMS. En route she was given Solu-Medrol IV magnesium and albuterol nebulizing treatment. Upon arrival to emergency department patient had multiple rounds of embolizing treatments and was subsequently placed on BiPAP with some improvement. Patient has been fully vaccinated. Work-up in the emergency department revealed CXR suspicious for right-sided pneumonia, nodular density in the left base and increased interstitial markings which may be chronic. Patient was admitted to the hospitalist service with electrolyte imbalances, leukocytosis, COPD exacerbation, hypoxia and possible pneumonia. 07/29/2021. Patient seen this morning with Shabbir-Chavira respiration/agonal festus athing. RENEE ABREU was called and patient was intubated and placed on mechanical ventilation. Patient transferred to ICU. Critical care/pulmonary consulted. Patient currently with AC mode rate of 30, FiO2 100%, PEEP of 12. Continue IV antibiotics. Consult ID and oncology for further evaluation. Patient will likely need bronchoscopy for further evaluation of the lung mass. Doppler ultrasound revealedLLE DVT. Start anticoagulation. 07/30/2021. Patient appears much improved and more responsive this morning. Patient currently with AC mode ventilation rate of 24, tidal volume 450, PEEP of 8 and FiO2 35%. Spontaneous breathing trials with possible extubation today per pulmonary. Bronchoscopy per pulmonary. Continue Lovenox twice daily for DVT. Continue IV antibiotics for sepsis/pneumonia. ID consultation pending. Follow-up CEA, CA 15-3, [place] 2729. 07/31/2021. Echocardiogram reveals left ventricular size and function are normal. EF 50 to 55% with mild diastolic dysfunction. Patient currently with CPAP/PSV trial 11/02. Anticipate extubation today per pulmonary. Bronchoscopy per p ulmonary. Continue Lovenox twice daily for DVT. Continue IV antibiotics for sepsis/pneumonia. ID consultation pending. Follow-up CEA, CA 15-3, CA 2729. 08/01: ALIYAH 08/02: Patient had a bronchoscopy today. Cell count, cytology and AFB sent from samples. Patient remains sedated on fentanyl and Versed. Patient and daughter Rosana were updated. 08/03: [facility] follow-up on sac-osage hospital specimens and was informed patient specimens indicate cancer. Communicated to Dr. Abbott and he stated he will update family. 08/04: Patient remains sedated on fentanyl and Versed, patient has moments of agitation with any stimulation. CPAP trial unable to be completed today due to agitation. 08/05: Patient had low urine output overnight and Elizabeth catheter was changed this a.m. with 2 L of urine output received. Patient did have a increase in creatinine however this may have been obstructive process and nephrology is aware. Hematology/oncology spoke to family who wishes for everything to be done despite bronchial washings with cancer cells. [facility] contacted patient's oncologist to help facilitate transfer. We attempted to hold sedation for CPAP trial however patient became extremely agitated and sedation was restarted. 08/06: Surgery consulted for possible trach. Leukocytosis and renal function slowly improving. No acute events reported overnight. 08/07: Creatinine continues to decrease, patient has slight hyper natremia and hyperchloremia. Patient remains on fentanyl and Versed with periods of a gitation. Increasing free water flushes. 08-08 improving cr; febrile; family wants full care/full code- heme onc following 08-09 LOW GRADE FEVERS; FOR TRACH/PEG WED AM 9/15: Patient seen and examined, had Bronchoscopy and Trach and PEG today, follow report. Continue supportive care. 08/11: Patient remains on full vent support. Continue supportive care. 08/12: This morning patient noted with bleeding around trach surgery consulted going for emergent surgery. Labs ordered Hospitalist Physical - Physical exam Narrative exam: General appearance: Present: no acute distress, well-nourished, - EENT Eyes: Present: PERRL, EOM intact ENT: clear oral mucosa. Trach-bleeding noted around the trach - Neck Neck: Present: supple, normal ROM - Respiratory Respiratory effort: normal - Cardiovascular Rhythm: regular - Extremities Extremities: no ischemia - Abdominal General gastrointestinal: soft - Integumentary Integumentary: Present: clear, warm, dry - Psychiatric Psychiatric: other - Neurologic Neurologic: other - Allied Health Allied health notes reviewed: nursing, RT, social work, case management - Constitutional Vitals: Temp Pulse Resp BP Pulse Ox 99.6 F 94 H 16 114/60 97 08/12/21 08:00 08/12/21 10:16 08/12/21 10:16 08/12/21 10:16 08/12/21 10:16 General appearance: Present: no acute distress, well-nourished, other Results - Labs CBC & Chem 7: 08/11/21 Unknown 08/11/21 04:30 Labs: Laboratory Last Values WBC 12.2 K/mm3 (4.5-11.0) H 08/11/21 Unknown RBC 2.81 M/mm3 (3.65-5.03) L 08/11/21 Unknown Hgb 8.4 gm/dl (10.1-14.3) L 08/11/21 Unknown Hct 25.4 % (30.3-42.9) L 08/11/21 Unknown MCV 90 fl (79-97) 08/11/21 Unknown MCH 30 pg (28-32) 08/11/21 Unknown MCHC 33 % (30-34) 08/11/21 Unknown RDW 17.0 % (13.2-15.2) H 08/11/21 Unknown Plt Count 221 K/mm3 (140-440) 08/11/21 Unknown Lymph % (Auto) 5.1 % (13.4-35.0) L 08/02/21 Unknown Archuleta % (Auto) 6.1 % (0.0-7.3) 08/02/21 Unknown Eos % (Auto) 0.0 % (0.0-4.3) 08/02/21 Unknown Baso % (Auto) 0.1 % (0.0-1.8) 08/02/21 Unknown Lymph # (Auto) 0.7 K/mm3 (1.2-5.4) L 08/02/21 Unknown Archuleta # (Auto) 0.9 K/mm3 (0.0-0.8) H 08/02/21 Unknown Eos # (Auto) 0.0 K/mm3 (0.0-0.4) 08/02/21 Unknown Baso # (Auto) 0.0 K/mm3 (0.0-0.1) 08/02/21 Unknown Add Manual Diff Complete 08/05/21 04:50 Total Counted 100 08/05/21 04:50 Seg Neutrophils % 88.7 % (40.0-70.0) H 08/02/21 Unknown Seg Neuts % (Manual) 75.0 % (40.0-70.0) H 08/05/21 04:50 Band Neutrophils % 8.0 % 08/05/21 04:50 Lymphocytes % (Manual) 2.0 % (13.4-35.0) L 08/05/21 04:50 Monocytes % (Manual) 5.0 % (0.0-7.3) 08/05/21 04:50 Eosinophils % (Manual) 1.0 % (0.0-4.3) 08/05/21 04:50 Metamyelocytes % 6.0 % 08/05/21 04:50 Myelocytes % 3.0 % 08/05/21 04:50 Nucleated RBC % Not Reportable 08/05/21 04:50 Seg Neutrophils # 12.5 K/mm3 (1.8-7.7) H 08/02/21 Unknown Seg Neutrophils # Man 14.3 K/mm3 (1.8-7.7) H 08/05/21 04:50 Band Neutrophils # 1.5 K/mm3 08/05/21 04:50 Lymphocytes # (Manual) 0.4 K/mm3 (1.2-5.4) L 08/05/21 04:50 Abs React Lymphs (Man) 0.0 K/mm3 08/05/21 04:50 Monocytes # (Manual) 1.0 K/mm3 (0.0-0.8) H 08/05/21 04:50 Eosinophils # (Manual) 0.2 K/mm3 (0.0-0.4) 08/05/21 04:50 Basophils # (Manual) 0.0 K/mm3 (0.0-0.1) 08/05/21 04:50 Metamyelocytes # 1.1 K/mm3 08/05/21 04:50 Myelocytes # 0.6 K/mm3 08/05/21 04:50 Promyelocytes # 0.0 K/mm3 08/05/21 04:50 Blast Cells # 0.0 K/mm3 08/05/21 04:50 WBC Morphology Not Reportable 08/05/21 04:50 Hypersegmented Neuts Not Reportable 08/05/21 04:50 Hyposegmented Neuts Not Reportable 08/05/21 04:50 Hypogranular Neuts Not Reportable 08/05/21 04:50 Smudge Cells Not Reportable 08/05/21 04:50 Toxic Granulation Not Reportable 08/05/21 04:50 Toxic Vacuolation Not Reportable 08/05/21 04:50 Dohle Bodies Not Reportable 08/05/21 04:50 Pelger-Huet Anomaly Not Reportable 08/05/21 04:50 Beryl Rods Not Reportable 08/05/21 04:50 Platelet Estimate Consistent w auto 08/05/21 04:50 Clumped Platelets Not Reportable 08/05/21 04:50 Plt Clumps, EDTA Not Reportable 08/05/21 04:50 Large Platelets Not Reportable 08/05/21 04:50 Giant Platelets Not Reportable 08/05/21 04:50 Platelet Satelliting Not Reportable 08/05/21 04:50 Plt Morphology Comment Not Reportable 08/05/21 04:50 RBC Morphology Not Reportable 08/05/21 04:50 Dimorphic RBCs Not Reportable 08/05/21 04:50 Polychromasia Not Reportable 08/05/21 04:50 Hypochromasia Not Reportable 08/05/21 04:50 Poikilocytosis Not Reportable 08/05/21 04:50 Anisocytosis Not Reportable 08/05/21 04:50 Microcytosis Not Reportable 08/05/21 04:50 Macrocytosis Not Reportable 08/05/21 04:50 Spherocytes Not Reportable 08/05/21 04:50 Pappenheimer Bodies Not Reportable 08/05/21 04:50 Sickle Cells Not Reportable 08/05/21 04:50 Target Cells Not Reportable 08/05/21 04:50 Tear Drop Cells Not Reportable 08/05/21 04:50 Ovalocytes Few 08/05/21 04:50 Helmet Cells Not Reportable 08/05/21 04:50 Paul-Avenal Bodies Not Reportable 08/05/21 04:50 Shawmut Rings Not Reportable 08/05/21 04:50 Estelita Cells Not Reportable 08/05/21 04:50 Bite Cells Not Reportable 08/05/21 04:50 Crenated Cell Not Reportable 08/05/21 04:50 Elliptocytes Not Reportable 08/05/21 04:50 Acanthocytes (Spur) Not Reportable 08/05/21 04:50 Rouleaux Not Reportable 08/05/21 04:50 Hemoglobin C Crystals Not Reportable 08/05/21 04:50 Schistocytes Not Reportable 08/05/21 04:50 Malaria parasites Not Reportable 08/05/21 04:50 Gurmeet Bodies Not Reportable 08/05/21 04:50 Hem Pathologist Commnt No 08/05/21 04:50 PT 14.2 Sec. (12.2-14.9) 08/10/21 05:20 INR 1.05 (0.87-1.13) 08/10/21 05:20 APTT 29.9 Sec. (24.2-36.6) 08/10/21 05:20 D-Dimer 852.47 ng/mlDDU (0-234) H 07/29/21 07:17 ABG pH 7.398 (7.320-7.450) 08/11/21 02:51 POC ABG pCO2 40.5 mmHg (32.0-48.0) 08/11/21 02:51 POC ABG pO2 100.5 mmHg (83-108) 08/11/21 02:51 POC ABG HCO3 24.4 08/11/21 02:51 ABG O2 Saturation 97.7 (0-100) 08/11/21 02:51 POC ABG Base Excess -0.4 08/11/21 02:51 ABG Hemoglobin 8.7 (12.0-17.5) L 08/11/21 02:51 ABG Oxyhemoglobin 97.2 (94-98) 08/11/21 02:51 ABG Methemoglobin 0.3 (0.0-1.5) 08/11/21 02:51 ABG Sodium 140.9 mmol/L (136.0-145.0) 08/11/21 02:51 ABG Potassium 3.9 mmol/L (3.40-4.50) 08/11/21 02:51 ABG Chloride 111.0 mmol/L (98-107) H 08/11/21 02:51 ABG Glucose 89 mg/dL (65-95) 08/11/21 02:51 Carboxyhemoglobin 0.2 (0.5-1.5) L 08/11/21 02:51 FiO2 % 30.0 08/11/21 02:51 Sodium 145 mmol/L (137-145) 08/11/21 04:30 Potassium 4.0 mmol/L (3.6-5.0) 08/11/21 04:30 Chloride 110.0 mmol/L (98-107) H 08/11/21 04:30 Carbon Dioxide 29 mmol/L (22-30) 08/11/21 04:30 Anion Gap 10 mmol/L 08/11/21 04:30 BUN 59 mg/dL (7-17) H 08/11/21 04:30 Creatinine 1.2 mg/dL (0.6-1.2) 08/11/21 04:30 Estimated GFR 54 ml/min 08/11/21 04:30 BUN/Creatinine Ratio 49 % 08/11/21 04:30 Glucose 91 mg/dL (65-100) 08/11/21 04:30 POC Glucose 131 mg/dL (70-105) H 08/12/21 05:05 Lactic Acid 2.10 mmol/L (0.7-2.0) H* 08/03/21 15:11 Calcium 8.3 mg/dL (8.4-10.2) L 08/11/21 04:30 Phosphorus 4.10 mg/dL (2.5-4.5) 08/08/21 06:00 Magnesium 2.20 mg/dL (1.7-2.3) 08/08/21 06:00 Total Bilirubin 0.40 mg/dL (0.1-1.2) 08/11/21 04:30 AST 36 units/L (5-40) 08/11/21 04:30 ALT 64 units/L (7-56) H 08/11/21 04:30 Alkaline Phosphatase 75 units/L (35-129) 08/11/21 04:30 Total Protein 5.5 g/dL (6.3-8.2) L 08/11/21 04:30 Albumin 2.6 g/dL (3.9-5) L 08/11/21 04:30 Albumin/Globulin Ratio 0.9 % 08/11/21 04:30 Carcinoembryonic Ag <0.5 ng/mL (0.0-2.4) 07/31/21 04:45 Arterial Blood Glucose 89 mg/dL (65-95) 08/11/21 02:51 Arterial Blood Ionized Calcium 4.5 mg/dL (4.6-5.3) L 08/11/21 02:51 Urine Color Yellow (Yellow) 08/08/21 20:27 Urine Turbidity Slightly-cloudy (Clear) 08/08/21 20: Urine pH 5.0 (5.0-7.0) 08/08/21 20:27 Ur Specific [place] 1.014 (1.003-1.030) 08/08/21 20:27 Urine Protein 30 mg/dl mg/dL (Negative) 08/08/21 20:27 Urine Glucose (UA) Neg mg/dL (Negative) 08/08/21 20:27 Urine Ketones Neg mg/dL (Negative) 08/08/21 20:27 Urine Blood Mod (Negative) 08/08/21 20:27 Urine Nitrite Neg (Negative) 08/08/21 20:27 Urine Bilirubin Neg (Negative) 08/08/21 20: Urine Urobilinogen < 2.0 mg/dL (<2.0) 08/08/21 20:27 Ur Leukocyte Esterase Neg (Negative) 08/08/21 20:27 Urine WBC (Auto) 6.0 /HPF (0.0-6.0) 08/08/21 20:27 Urine RBC (Auto) 6.0 /HPF (0.0-6.0) 08/08/21 20:27 U Epithel Cells (Auto) < 1.0 /HPF (0-13.0) 08/08/21 20:27 Urine Bacteria (Auto) 1+ /HPF (Negative) 08/08/21 20:27 Urine Mucus Few /HPF 08/08/21 20:27 Urine Yeast (Budding) 1+ /HPF 08/08/21 20:27 Urine Creatinine 125.6 mg/dL (0.1-20.0) H 08/01/21 Unknown Urine Sodium 12 mmol/L 08/01/21 Unknown Double Strand DNA Ab 1 IU/mL (<=4) 08/02/21 15:40 Coronavirus (PCR) Negative (Negative) 07/29/21 07:58 Hepatitis A IgM Ab Non-reactive (NonReactive) 08/02/21 15:40 Hep Bs Antigen Nonreactive (Negative) 08/02/21 15:40 Hep B Core IgM Ab Non-reactive (NonReactive) 08/02/21 15:40 Hepatitis C Antibody Non-reactive (NonReactive) 08/02/21 15:40 AFB Identification Negative 08/02/21 14:30 Microbiology: Microbiology 08/08/21 16:39 Peripheral/Venous Blood Culture - Preliminary NO GROWTH AFTER 72 HOURS 08/08/21 16:39 Peripheral/Venous Blood Culture - Preliminary NO GROWTH AFTER 72 HOURS Elizabeth/IV: Voiding Method Indwelling Catheter Active Medications - Current Medications Current Medications: Generic Name Dose Route Start Last Admin Trade Name Freq PRN Reason Stop Dose Admin Acetaminophen 650 mg 07/28/21 02:11 Acetaminophen 325 Mg Tab PO Q6H PRN Pain MILD(1-3)/Fever >100.5/GARCIA Albuterol/Ipratropium 1 ampul 07/28/21 14:00 08/12/21 08:24 Ipratropium/Albuterol Sulfate 3 Ml Ampul.Neb IH 1 ampul TID DEMIAN Administration Lipase/Protease/Amylase 1 each 07/29/21 13:01 Lipase 10,500/Protease 25,000/Amylase 43,750 (Units) Dr Campoverde FEEDTUBE PRN PRN For Clogged Feeding Tube Arformoterol Tartrate 15 mcg 07/28/21 20:00 08/12/21 08:24 Arformoterol 15 Mcg/2 Ml Nebu IH 15 mcg Q12HRT DEMIAN Administration Bisacodyl 10 mg 08/07/21 09:50 Bisacodyl 10 Mg Rect Supp NC QDAY PRN Constip unreliev by MOM/or NPO Budesonide 0.5 mg 07/28/21 20:00 08/12/21 08:24 Budesonide 0.5 Mg/2 Ml Nebu IH 0.5 mg Q12HRT DEMIAN Administration Dextrose 50 ml 07/28/21 02:11 08/10/21 18:05 Dextrose 50% In Water (25gm) 50 Ml Syringe IV 20 ml Q30MIN PRN Administration Hypoglycemia Protocol Enoxaparin Sodium 100 mg 08/11/21 10:00 08/12/21 09:35 Enoxaparin 100 Mg/1 Ml Inj SUB-Q 100 mg Q12HR DEMIAN Administration Protocol Famotidine 10 mg 08/02/21 10:00 08/12/21 10:36 Famotidine 20 Mg/2 Ml Inj IV 10 mg BID DEMIAN Administration Fentanyl 50 mcg 07/29/21 10:42 08/04/21 09:05 Fentanyl 100 Mcg/2 Ml Inj IV 50 mcg Q10MIN PRN Administration ANALGESIA Hydralazine HCl 10 mg 07/30/21 14:52 08/03/21 17:31 Hydralazine 20 Mg/1 Ml Inj IV 10 mg Q6H PRN Administration SBP > 165 Hydrophilic Ointment 1 applic 07/29/21 10:42 Lip Therapy Vaseline TP Q2HR PRN Dry Lips Fentanyl Citrate 2,000 mcg in 100 mls @ 5.35 mls/hr 07/29/21 11:00 08/12/21 10:34 Fentanyl Drip Premix IV 2 mcg/kg/hr TITR DEMIAN 10.7 mls/hr Administration Protocol 1 MCG/KG/HR Midazolam HCl 100 mg/ Sodium 100 mls @ 2 mls/hr 07/29/21 11:00 08/12/21 11:11 Chloride IV 1 mg/hr TITR DEMIAN 1 mls/hr Titration Protocol 2 MG/HR Norepinephrine 4 mg in 250 mls @ 7.5 mls/hr 07/29/21 21:00 Levophed Drip 4 Mg/Ns 250 Ml IV TITR DEMIAN Protocol 2 MCG/MIN Insulin Human Lispro 0 unit 07/29/21 12:00 08/12/21 07:17 Insulin Lispro 100 Unit/Ml SUB-Q Not Given Q6HR [facility] Protocol Magnesium Hydroxide 30 ml 07/28/21 02:11 Magnesium Hydroxide (Mom) Oral Liqd Udc PO Q4H PRN Constipation Midazolam HCl 2 mg 07/29/21 10:42 08/10/21 20:58 Midazolam 2 Mg/2 Ml Inj IV 2 mg Q10MIN PRN Administration Sedation Multi-Ingred Cream/Lotion/Oil/Oint 1 applic 07/29/21 10:42 Mineral Oil/Petrolatum, White Ophth Oint 3.5 Gm OU Q4HR PRN Dry Eye(s) Polyethylene Glycol 17 gm 08/11/21 16:00 08/12/21 09:36 Polyethylene Glycol 3350 17 Gm Powder PO 17 gm QDAY DEMIAN Administration Quetiapine Fumarate 200 mg 08/05/21 22:00 08/12/21 09:36 Quetiapine 200 Mg Tab PO 200 mg BID DEMIAN Administration Senna/Docusate Sodium 1 tab 08/11/21 13:00 08/12/21 07:21 Sennosides/Docusate Sodium 8.6/50 Mg Tab FEEDTUBE Not Given Q8H DEMIAN Simple Syrup 15 ml 07/29/21 13:01 Simple Syrup 15 Ml FEEDTUBE PRN PRN Hypoglycemia Simple Syrup 30 ml 07/29/21 13:01 Simple Syrup 15 Ml FEEDTUBE PRN PRN Hypoglycemia Sodium Bicarbonate 325 mg 07/29/21 13:01 Sodium Bicarbonate 325 Mg Tab FEEDTUBE PRN PRN For Clogged Feeding Tube Sodium Chloride 10 ml 07/28/21 10:00 08/12/21 10:35 Sodium Chloride 0.9% 10 Ml Flush Syringe IV 10 ml BID DEMIAN Administration Sodium Chloride 10 ml 07/28/21 02:05 Sodium Chloride 0.9% 10 Ml Flush Syringe IV PRN PRN LINE FLUSH Nutrition/Malnutrition Assess - Dietary Evaluation Nutrition/Malnutrition Findings: Nutrition Notes Start: 07/28/21 14:44 Freq: Status: Active Protocol: Document 08/11/21 11:28 (Rec: 08/11/21 11:31 [id number]) Nutrition Notes Initial or Follow up Reassessment Current Diagnosis COPD,Diabetes,Hypertension, Respiratory Failure Other Pertinent Diagnosis pneu Current Diet Vital AF at 50 ml/hr Labs/Tests BUN 59 Pertinent Medications Reviewed Height 5 ft Weight 107 kg Portia Body Weight (kg) 45.45 BMI 46.0 Weight Status Morbidly Obese Subjective/Other Information Pt got trach and PEG yesterday . TF resumed at goal and no signs of intolerance noted. RN reports pt without BM and will speak with MD. Percent of energy/protein needs met: 96%/67% Burn Absent Trauma Absent GI Symptoms Constipation,Last BM Current % PO Negligible Minimum of two criteria No #1 Nutrition Diagnosis Inadequate oral intake Diagnosis Progress(for reassessment Continues documentation) Is patient on ventilator? Yes Is Patient Ambulatory and/or Out of Bed No REE-([facility]-confined to bed) 1842.852 Kcal/Kg value to use for calculation 14 Approximate Energy Requirements Using 1498 kcal/Kg Calculation Used for Recommendations Kcal/kg Additional Notes Protein: (up to 2.5g/kg IBW) up to 134g Fluid: 1 ml/kcal or per MD Nutrition Intervention Change Diet Order: continue Nutrition Support: Vital AF 1.2 at 50 ml/hr For hypernatermia, flush 250 ml ml q4h or per MD. Once resolved, flush 100 ml q4h. Kcal 1,440 Protein (gm) 90 Fluid (mL) 973 Goal #1 Meet at least 75% of protein and energy needs via TF Anticipated Discharge Needs: Unable to determine at this time Follow-Up By: 08/16/21 Additional Comments F/u: stable TF, BM
--- NOTE | 2021-08-12 13:26 | Consultation ---
History of Present Illness Consult date: 08/12/21 - History of present illness History of present illness: 66 yo female with metastatic breast cancer, resp failure and bleeding from percutaneous trach placed 2 days ago by Nela Parada. Pt also has DVT and is on SQ Lovenox. Past History Past Medical History: COPD, diabetes, hypertension, hyperlipidemia, other (History of right breast cancer) Past Surgical History: cholecystectomy, hysterectomy, mastectomy, tonsillectomy Social history: smoking (Current daily smoker) Family history: no significant family history Medications and Allergies Allergies Allergy/AdvReac Type Severity Reaction Status Date / Time No Known Allergies Allergy Verified 12/24/18 11:45 Home Medications Medication Instructions Recorded Confirmed Last Taken Type traMADoL [Ultram 50 MG tab] 50 mg PO Q6HR PRN #15 tablet 01/25/18 Unknown Rx Active Meds: Active Medications Acetaminophen (Acetaminophen 325 Mg Tab) 650 mg PO Q6H PRN PRN Reason: Pain MILD(1-3)/Fever >100.5/GARCIA Albuterol/Ipratropium (Ipratropium/Albuterol Sulfate 3 Ml Ampul.Neb) 1 ampul IH TID [facility] Last Admin: 08/12/21 08:24 Dose: 1 ampul Documented by: Lipase/Protease/Amylase (Lipase 10,500/Protease 25,000/Amylase 43,750 (Units) Dr Campoverde) 1 each FEEDTUBE PRN PRN PRN Reason: For Clogged Feeding Tube Arformoterol Tartrate (Arformoterol 15 Mcg/2 Ml Nebu) 15 mcg IH Q12HRT [facility] Last Admin: 08/12/21 08:24 Dose: 15 mcg Documented by: Bisacodyl (Bisacodyl 10 Mg Rect Supp) 10 mg TX QDAY PRN PRN Reason: Constip unreliev by MOM/or NPO Budesonide (Budesonide 0.5 Mg/2 Ml Nebu) 0.5 mg IH Q12HRT [facility] Last Admin: 08/12/21 08:24 Dose: 0.5 mg Documented by: Dextrose (Dextrose 50% In Water (25gm) 50 Ml Syringe) 50 ml IV Q30MIN PRN; Protocol PRN Reason: Hypoglycemia Last Admin: 08/10/21 18:05 Dose: 20 ml Documented by: Enoxaparin Sodium (Enoxaparin 100 Mg/1 Ml Inj) 100 mg SUB-Q Q12HR DEMIAN; Protocol Last Admin: 08/12/21 09:35 Dose: 100 mg Documented by: Famotidine (Famotidine 20 Mg/2 Ml Inj) 10 mg IV BID DEMIAN Last Admin: 08/12/21 10:36 Dose: 10 mg Documented by: Fentanyl (Fentanyl 100 Mcg/2 Ml Inj) 50 mcg IV Q10MIN PRN PRN Reason: ANALGESIA Last Admin: 08/04/21 09:05 Dose: 50 mcg Documented by: Hydralazine HCl (Hydralazine 20 Mg/1 Ml Inj) 10 mg IV Q6H PRN PRN Reason: SBP > 165 Last Admin: 08/03/21 17:31 Dose: 10 mg Documented by: Hydrophilic Ointment (Lip Therapy Vaseline) 1 applic TP Q2HR PRN PRN Reason: Dry Lips Fentanyl Citrate (Fentanyl Drip Premix) 2,000 mcg in 100 mls @ 5.35 mls/hr IV TITR DEMIAN; Protocol Last Admin: 08/12/21 10:34 Dose: 2 mcg/kg/hr, 10.7 mls/hr Documented by: Midazolam HCl 100 mg/ Sodium (Chloride) 100 mls @ 2 mls/hr IV TITR DEMIAN; Protocol Last Titration: 08/12/21 11:11 Dose: 1 mg/hr, 1 mls/hr Documented by: Norepinephrine (Levophed Drip 4 Mg/Ns 250 Ml) 4 mg in 250 mls @ 7.5 mls/hr IV TITR DEMIAN; Protocol Insulin Human Lispro (Insulin Lispro 100 Unit/Ml) 0 unit SUB-Q Q6HR DEMIAN; Prot ocol Last Admin: 08/12/21 07:17 Dose: Not Given Documented by: Magnesium Hydroxide (Magnesium Hydroxide (Mom) Oral Liqd Udc) 30 ml PO Q4H PRN PRN Reason: Constipation Midazolam HCl (Midazolam 2 Mg/2 Ml Inj) 2 mg IV Q10MIN PRN PRN Reason: Sedation Last Admin: 08/10/21 20:58 Dose: 2 mg Documented by: Multi-Ingred Cream/Lotion/Oil/Oint (Mineral Oil/Petrolatum, White Ophth Oint 3.5 Gm) 1 applic OU Q4HR PRN PRN Reason: Dry Eye(s) Polyethylene Glycol (Polyethylene Glycol 3350 17 Gm Powder) 17 gm PO QDAY DEMIAN Last Admin: 08/12/21 09:36 Dose: 17 gm Documented by: Quetiapine Fumarate (Quetiapine 200 Mg Tab) 200 mg PO BID [facility] Last Admin: 08/12/21 09:36 Dose: 200 mg Documented by: Senna/Docusate Sodium (Sennosides/Docusate Sodium 8.6/50 Mg Tab) 1 tab FEEDTUBE Q8H [facility] Last Admin: 08/12/21 07:21 Dose: Not Given Documented by: Simple Syrup (Simple Syrup 15 Ml) 15 ml FEEDTUBE PRN PRN PRN Reason: Hypoglycemia Simple Syrup (Simple Syrup 15 Ml) 30 ml FEEDTUBE PRN PRN PRN Reason: Hypoglycemia Sodium Bicarbonate (Sodium Bicarbonate 325 Mg Tab) 325 mg FEEDTUBE PRN PRN PRN Reason: For Clogged Feeding Tube Sodium Chloride (Sodium Chloride 0.9% 10 Ml Flush Syringe) 10 ml IV BID [facility] Last Admin: 08/12/21 10:35 Dose: 10 ml Documented by: Sodium Chloride (Sodium Chloride 0.9% 10 Ml Flush Syringe) 10 ml IV PRN PRN PRN Reason: LINE FLUSH Review of Systems ROS unobtainable: due to endotracheal tube Exam Vital Signs Pulse Ox 100 07/27/21 22:27 - General physical appearance Positive: well developed, well nourished, no distress - Eyes Positive: PERRL, normal occular movement - ENT Positive: normal pinna, normal nares, normal mucosa, no hearing loss, no congestion - Neck Positive: no masses, no bruits, trachea midline, no venous distension, other (Continuously oozing about tracheostomy site.) - Respiratory Positive: normal expansion, normal respiratory effort, clear to auscultation - Cardiovascular Rhythm: regular Heart Sounds: Present: S1 & S2. Absent: rub, click - Extremities Extremities: no ischemia, pulses symmetrical, No edema - Breasts Breasts: normal, no mass, no skin changes - Abdomen Abdomen: Present: soft, bowel sounds normal. Absent: tender, distended Hernia: none - Genitourinary Male Genitourinary: normal Female Genitourinary: normal - Integumentary no rash, no growths, no abnormal pigmentation Results - Labs 08/11/21 Unknown 08/11/21 04:30 Abnormal lab results 08/11/21 08/11/21 08/12/21 Range/Units 17:11 23:18 05:05 POC Glucose 115 H 126 H 131 H (70-105) mg/dL 08/12/21 Range/Units 12:14 POC Glucose 123 H (70-105) mg/dL Assessment and Plan - Patient Problems (1) Tracheostomy hemorrhage Current Visit: Yes Status: Acute Plan to address problem: 1) To OR to control bleeding
[2021-08-12] MEDS ORDERED: ROCURONIUM 50 MG/5 ML INJ IV ONE (13:30)
[2021-08-12] MEDS ORDERED: LIDOCAINE 1%/EPINEPHRINE 1:100,000 VIAL (20 ML) INFILTRATI ONE ×2 (13:51→14:52)
[2021-08-12] MEDS ORDERED: MIDAZOLAM 2 MG/2 ML INJ ONE (14:17)
[2021-08-12] MEDS ORDERED: SODIUM CHLORIDE 0.9% 1000 ML 1,000 ML ONE (14:34)
[2021-08-12] MEDS ORDERED: SODIUM CHLORIDE 0.9% IRR 1,000 ML BOTTLE IR ONE (14:52)
--- NOTE | 2021-08-12 15:03 | Procedure Note ---
Date of procedure: 08/12/21 Pre-op diagnosis: Hemorrhage from tracheostomy site Post-op diagnosis: same Procedure: Control of hemorrhage from tracheostomy site Description of procedure: Pt was placed supine on the OR table. General anesthesia was administered. Sutures securing the tracheostomy cuff to the skin were cut. The tracheostomy wound was carefully examined and the bleeding appeared to emanate from the SQ tissue on the inferior aspect of the wound. This bleeding was controlled with the Bovie. No additional bleeding was identified. A piece of Surgicel was placed on the interface of the wound and skin. The tracheostomy cuff was secured to the skin with two interrupted sutures of 3-0 Nylon. The tracheostomy cuff was secured about the nect with the Velcro strap. Pt tolerated the procedure well. Pt was taken back to ICU in stable condition. Anesthesia: MISSY Surgeon: CHAITANYA DASH Estimated blood loss: 50-100ml Pathology: none Condition: stable Disposition: ICU
[2021-08-12 22:05] LABS: Basophils % (Auto) 0.2 % (0.0-1.8); Eosinophils # (Auto) 0.1 K/mm3 (0.0-0.4); Eosinophils % (Auto) 0.4 % (0.0-4.3); Hematocrit 27.3 % (30.3-42.9); Hemoglobin 8.9 gm/dl (10.1-14.3); Lymphocytes # (Auto) 1.5 K/mm3 (1.2-5.4); Mean Corpuscular HGB Conc 33 % (30-34); Mean Corpuscular Volume 90 fl (79-97); Monocytes # (Auto) 1.1 K/mm3 (0.0-0.8); Monocytes % (Auto) 6.7 % (0.0-7.3); Platelet Count 296 K/mm3 (140-440); Red Blood Count 3.04 M/mm3 (3.65-5.03)
[2021-08-12 22:13] LABS: INR 1.08 (0.87-1.13)
[2021-08-12 22:24] LABS: BUN/Creatinine Ratio 48; Blood Urea Nitrogen 48 mg/dL (7-17); Calcium 8.5 mg/dL (8.4-10.2); Hemolysis Index 0
[2021-08-13] MEDS: fentaNYL DRIP Premix 2,000 MCG/100 ML BAG IV SCH ×3 (04:41→22:02)
[2021-08-13] MEDS: INSULIN LISPRO 100 UNIT/ML SUB-Q SCH ×3 (06:33→18:16)
[2021-08-13] MEDS: ENOXAPARIN 100 MG/1 ML INJ SUB-Q SCH ×3 (06:35→22:15)
[2021-08-13] MEDS: IPRATROPIUM/ALBUTEROL SULFATE 3 ML AMPUL.NEB IH SCH ×3 (07:23→20:00)
[2021-08-13] MEDS: BUDESONIDE 0.5 MG/2 ML NEBU IH SCH ×2 (07:23→20:00)
[2021-08-13] MEDS: ARFORMOTEROL 15 MCG/2 ML NEBU IH SCH ×2 (07:24→20:00)
--- NOTE | 2021-08-13 08:59 | Progress Note ---
Assessment and Plan Assessment and plan: This is a 66-year-old female with HTN, DM, HLD and COPD admitted for acute hypoxic respiratory failure, COPD exacerbation, pneumonia and left lower leg DVT Neuro: Acute metabolic encephalopathy; agitatin -Sedated with Versed and fentanyl, Seroquel -daily SAT limited by agitation and hypoxia -RASS goal -2 to -3 -Bilateral restraints for safety -update family daily on plan of care Cardio: h/o HTN, s/p cardiac arrest, h/o HLD -Echocardiogram completed-> EF 50 to 55% with mild diastolic dysfunction -Blood pressure monitor per protocol -MAP goal > 65 -Patient had cardiac arrest on 07/29 and was intubated -Antihypertensives prn ST Respiratory: Acute hypoxic respiratory failure, COPD exacerbation; lung ca with mediastinal mass -CCM consulted, appreciate recommendations - S/P TRACH AND PEG -Noted bleeding around trach today 08/12/2021 patient going for emergent surgery.-Control of hemorrhage from tracheostomy site, H/H stable -VAP bundle -Daily SBT and SAT trials as tolerated -Intubated with 7.50 ETT at 22 at the lips on 07/29 see RT flow sheet for vent settings -Daily ABG and CXR -Continue SPO2 monitoring -FOR TRACH AND PEG WED AM; NPO PM; HOLD LOVENOX AT MN GI: constipation -TF-- NPO P MN -nutrition following -BR -PPI : Acute kidney injury likely 2/2 vasomotor nephropathy/pre-renal; HYPERNA -Nephrology consulted, appreciate recommendations -08/01 FeNA calculated at 0.13-> indicating prerenal -trend Cr -Strict intake and output -Avoid nephrotoxic medications -Renally dose medications -Elizabeth in place; Elizabeth changed on 08/05 -follow and replace electrolytes as needed -FWF FOR NA ID: Acute sepsis, pneumonia; febrile -ABX therapy: Cefepime -07/27 BC x2 with no growth after 4 days -07/29 tracheal aspirate with no growth -follow culture data -Monitor CBCs and fever curve -febrile to 100 -ID following Heme: Left lower leg DVT, leukocytosis; lung ca with med mass -cont Lovenox- HOLD AT MN -SCDs to bilateral lower extremities while in bed -Trend CBC -evidenced on BLE US -heme onc following Oncology: h/o breast cancer, Lung mass, breast carcinoma with metastasis -CXR shows suspicious nodular density at the left base -08/02 bronchoscopy -Heme/oncology consulted, appreciate recommendations -08/02 bronchoscopy completed; washings and brush sent for cytology, cell count and AFB-> preliminary results obtained, see report -08/02: AFB from bronc negative -08/02 PTH surgical report: Biomarker ER, IA, HER-2 negative, TTF1 and HMB 4 5 are not expressed -CEA low -Heme onc following ? transfer to higher level of care oncologist Dr. Wade at [place] at [phone] Endo: h/o DM; stress hyperglycemia -SSI -Avoid hypoglycemia -Lantus, titrate as needed The high probability of a clinically significant, sudden or life threatening deterioration of the [multi] system(s) required my full and direct attention, intervention and personal management. The aggregate critical care time was [60] minutes. This time is in addition to time spent performing reported procedures but includes the following: [x] Data Review and interpretation [x] Patient assessment and monitoring of vital signs [x] Documentation [x] Medication orders and management Disposition Plan: icu Total Time Spent with Patient (Minutes): 45 very guarded prognosis. History Interval history: This is a 66-year-old female with HTN, DM, HLD and COPD who presented to emergency department on 07/28 with complaints of difficulty in breathing ongoing for the past few days via EMS. En route she was given Solu-Medrol IV magnesium and albuterol nebulizing treatment. Upon arrival to emergency department patient had multiple rounds of embolizing treatments and was subsequently placed on BiPAP with some improvement. Patient has been fully vaccinated. Work-up in the emergency department revealed CXR suspicious for right-sided pneumonia, nodular density in the left base and increased interstitial markings which may be chronic. Patient was admitted to the hospitalist service with electrolyte imbalances, leukocytosis, COPD exacerbation, hypoxia and possible pneumonia. 07/29/2021. Patient seen this morning with Shabbir-Chavira respiration/agonal breathing. RENEE ABREU was called and patient was intubated and placed on mechanical ventilation. Patient transferred to ICU. Critical care/pulmonary consulted. Patient currently with AC mode rate of 30, FiO2 100%, PEEP of 12. Continue IV antibiotics. Consult ID and oncology for further evaluation. Patient will likely need bronchoscopy for further evaluation of the lung mass. Doppler ultrasound revealedLLE DVT. Start anticoagulation. 07/30/2021. Patient appears much improved and more responsive this morning. Patient currently with AC mode ventilation rate of 24, tidal volume 450, PEEP of 8 and FiO2 35%. Spontaneous breathing trials with possible extubation today per pulmonary. Bronchoscopy per pulmonary. Continue Lovenox twice daily for DVT. Continue IV antibiotics for sepsis/pneumonia. ID consultation pending. Follow-up CEA, CA 15-3, [place] 2729. 07/31/2021. Echocardiogram reveals left ventricular size and function are normal. EF 50 to 55% with mild diastolic dysfunction. Patient currently with CPAP/PSV trial 11/02. Anticipate extubation today per pulmonary. Bronchoscopy per pulmonary. Continue Lovenox twice daily for DVT. Continue IV antibiotics for sepsis/pneumonia. ID consultation pending. Follow-up CEA, CA 15-3, [place] 2729. 08/01: ALIYAH 08/02: Patient had a bronchoscopy today. Cell count, cytology and AFB sent from samples. Patient remains sedated on fentanyl and Versed. Patient and daughter Rosana were updated. 08/03: [facility] and was informed patient specimens indicate cancer. Communicated to Dr. Abbott and he stated he will update family. 08/04: Patient remains sedated on fentanyl and Versed, patient has moments of agitation with any stimulation. CPAP trial unable to be completed today due to agitation. 08/05: Patient had low urine output overnight and Elizabeth catheter was changed this a.m. with 2 L of urine output received. Patient did have a increase in creatinine however this may have been obstructive process and nephrology is aware. Hematology/oncology spoke to family who wishes for everything to be done despite bronchial washings with cancer cells. [facility] contacted patient's oncologist to help facilitate transfer. We attempted to hold sedation for CPAP trial however patient became extremely agitated and sedation was restarted. 08/06: Surgery consulted for possible trach. Leukocytosis and renal function slowly improving. No acute events reported overnight. 08/07: Creatinine continues to decrease, patient has slight hyper natremia and hyperchloremia. Patient remains on fentanyl and Versed with periods of agitation. Increasing free water flushes. 08-08 improving cr; febrile; family wants full care/full code- heme onc following 08-09 LOW GRADE FEVERS; FOR TRACH/PEG WED 08/10: Patient seen and examined, had Bronchoscopy and Trach and PEG today, follow report. Continue supportive care. 08/11: Patient remains on full vent support. Continue supportive care. 08/12: This morning patient noted with bleeding around trach surgery consulted going for emergent surgery. Labs ordered 08/13: Patient seen and examined, no further bleeding, had surgical intervention yesterday for trach site bleeding. No further bleeding this am. Patient otherwise remains on mechanical ventilation. Leukocytosis mildly worsened today this could be reactive has no fever will monitor mental status is still severely encephalopathic. Hospitalist Physical - Physical exam Narrative exam: General appearance: Present: no acute distress, well-nourished, - EENT Eyes: Present: PERRL, EOM intact ENT: clear oral mucosa. Trach-bleeding noted around the trach - Neck Neck: Present: supple, normal ROM - Respiratory Respiratory effort: normal - Cardiovascular Rhythm: regular - Extremities Extremities: no ischemia - Abdominal General gastrointestinal: soft - Integumentary Integumentary: Present: clear, warm, dry - Psychiatric Psychiatric: other - Neurologic Neurologic: other - Allied Health Allied health notes reviewed: nursing, RT, social work, case management - Constitutional Vitals: Temp Pulse Resp BP Pulse Ox 99.8 F H 89 16 121/60 98 08/13/21 07:00 08/13/21 07:23 08/13/21 07:23 08/13/21 07:23 08/13/21 07:23 General appearance: Present: no acute distress, well-nourished, other Results - Labs CBC & Chem 7: 08/12/21 21:41 08/12/21 21:41 Labs: Laboratory Last Values WBC 16.5 K/mm3 (4.5-11.0) H 08/12/21 21:41 RBC 3.04 M/mm3 (3.65-5.03) L 08/12/21 21:41 Hgb 8.9 gm/dl (10.1-14.3) L 08/12/21 21:41 Hct 27.3 % (30.3-42.9) L 08/12/21 21:41 MCV 90 fl (79-97) 08/12/21 21:41 MCH 29 pg (28-32) 08/12/21 21:41 MCHC 33 % (30-34) 08/12/21 21:41 RDW 17.0 % (13.2-15.2) H 08/12/21 21:41 Plt Count 296 K/mm3 (140-440) 08/12/21 21:41 Lymph % (Auto) 9.0 % (13.4-35.0) L 08/12/21 21:41 Hardin % (Auto) 6.7 % (0.0-7.3) 08/12/21 21:41 Eos % (Auto) 0.4 % (0.0-4.3) 08/12/21 21:41 Baso % (Auto) 0.2 % (0.0-1.8) 08/12/21 21:41 Lymph # (Auto) 1.5 K/mm3 (1.2-5.4) 08/12/21 21:41 Hardin # (Auto) 1.1 K/mm3 (0.0-0.8) H 08/12/21 21:41 Eos # (Auto) 0.1 K/mm3 (0.0-0.4) 08/12/21 21:41 Baso # (Auto) 0.0 K/mm3 (0.0-0.1) 08/12/21 21:41 Add Manual Diff Complete 08/05/21 04:50 Total Counted 100 08/05/21 04:50 Seg Neutrophils % 83.7 % (40.0-70.0) H 08/12/21 21:41 Seg Neuts % (Manual) 75.0 % (40.0-70.0) H 08/05/21 04:50 Band Neutrophils % 8.0 % 08/05/21 04:50 Lymphocytes % (Manual) 2.0 % (13.4-35.0) L 08/05/21 04:50 Monocytes % (Manual) 5.0 % (0.0-7.3) 08/05/21 04:50 Eosinophils % (Manual) 1.0 % (0.0-4.3) 08/05/21 04:50 Metamyelocytes % 6.0 % 08/05/21 04:50 Myelocytes % 3.0 % 08/05/21 04:50 Nucleated RBC % Not Reportable 08/05/21 04:50 Seg Neutrophils # 13.8 K/mm3 (1.8-7.7) H 08/12/21 21:41 Seg Neutrophils # Man 14.3 K/mm3 (1.8-7.7) H 08/05/21 04:50 Band Neutrophils # 1.5 K/mm3 08/05/21 04:50 Lymphocytes # (Manual) 0.4 K/mm3 (1.2-5.4) L 08/05/21 04:50 Abs React Lymphs (Man) 0.0 K/mm3 08/05/21 04:50 Monocytes # (Manual) 1.0 K/mm3 (0.0-0.8) H 08/05/21 04:50 Eosinophils # (Manual) 0.2 K/mm3 (0.0-0.4) 08/05/21 04:50 Basophils # (Manual) 0.0 K/mm3 (0.0-0.1) 08/05/21 04:50 Metamyelocytes # 1.1 K/mm3 08/05/21 04:50 Myelocytes # 0.6 K/mm3 08/05/21 04:50 Promyelocytes # 0.0 K/mm3 08/05/21 04:50 Blast Cells # 0.0 K/mm3 08/05/21 04:50 WBC Morphology Not Reportable 08/05/21 04:50 Hypersegmented Neuts Not Reportable 08/05/21 04:50 Hyposegmented Neuts Not Reportable 08/05/21 04:50 Hypogranular Neuts Not Reportable 08/05/21 04:50 Smudge Cells Not Reportable 08/05/21 04:50 Toxic Granulation Not Reportable 08/05/21 04:50 Toxic Vacuolation Not Reportable 08/05/21 04:50 Dohle Bodies Not Reportable 08/05/21 04:50 Pelger-Huet Anomaly Not Reportable 08/05/21 04:50 Beryl Rods Not Reportable 08/05/21 04:50 Platelet Estimate Consistent w auto 08/05/21 04:50 Clumped Platelets Not Reportable 08/05/21 04:50 Plt Clumps, EDTA Not Reportable 08/05/21 04:50 Large Platelets Not Reportable 08/05/21 04:50 Giant Platelets Not Reportable 08/05/21 04:50 Platelet Satelliting Not Reportable 08/05/21 04:50 Plt Morphology Comment Not Reportable 08/05/21 04:50 RBC Morphology Not Reportable 08/05/21 04:50 Dimorphic RBCs Not Reportable 08/05/21 04:50 Polychromasia Not Reportable 08/05/21 04:50 Hypochromasia Not Reportable 08/05/21 04:50 Poikilocytosis Not Reportable 08/05/21 04:50 Anisocytosis Not Reportable 08/05/21 04:50 Microcytosis Not Reportable 08/05/21 04:50 Macrocytosis Not Reportable 08/05/21 04:50 Spherocytes Not Reportable 08/05/21 04:50 Pappenheimer Bodies Not Reportable 08/05/21 04:50 Sickle Cells Not Reportable 08/05/21 04:50 Target Cells Not Reportable 08/05/21 04:50 Tear Drop Cells Not Reportable 08/05/21 04:50 Ovalocytes Few 08/05/21 04:50 Helmet Cells Not Reportable 08/05/21 04:50 [place] Bodies Not Reportable 08/05/21 04:50 Dwight Rings Not Reportable 08/05/21 04:50 [place] Cells Not Reportable 08/05/21 04:50 Bite Cells Not Reportable 08/05/21 04:50 Crenated Cell Not Reportable 08/05/21 04:50 Elliptocytes Not Reportable 08/05/21 04:50 Acanthocytes (Spur) Not Reportable 08/05/21 04:50 Rouleaux Not Reportable 08/05/21 04:50 Hemoglobin C Crystals Not Reportable 08/05/21 04:50 Schistocytes Not Reportable 08/05/21 04:50 Malaria parasites Not Reportable 08/05/21 04:50 Gurmeet Bodies Not Reportable 08/05/21 04:50 Hem Pathologist Commnt No 08/05/21 04:50 PT 14.5 Sec. (12.2-14.9) 08/12/21 21:41 INR 1.08 (0.87-1.13) 08/12/21 21:41 APTT 29.9 Sec. (24.2-36.6) 08/10/21 05:20 D-Dimer 852.47 ng/mlDDU (0-234) H 07/29/21 07:17 ABG pH 7.399 (7.320-7.450) 08/13/21 05:43 POC ABG pCO2 44.3 mmHg (32.0-48.0) 08/13/21 05:43 POC ABG pO2 76.8 mmHg (83-108) L 08/13/21 05:43 POC ABG HCO3 26.8 08/13/21 05:43 ABG O2 Saturation 94.7 (0-100) 08/13/21 05:43 POC ABG Base Excess 1.7 08/13/21 05:43 ABG Hemoglobin 8.6 (12.0-17.5) L 08/13/21 05:43 ABG Oxyhemoglobin 94.0 (94-98) 08/13/21 05:43 ABG Methemoglobin 0.3 (0.0-1.5) 08/13/21 05:43 ABG Sodium 142.6 mmol/L (136.0-145.0) 08/13/21 05:43 ABG Potassium 3.9 mmol/L (3.40-4.50) 08/13/21 05:43 ABG Chloride 112.0 mmol/L (98-107) H 08/13/21 05:43 ABG Glucose 126 mg/dL (65-95) H 08/13/21 05:43 Carboxyhemoglobin 0.4 (0.5-1.5) L 08/13/21 05:43 FiO2 % 30.0 08/13/21 05:43 Sodium 147 mmol/L (137-145) H 08/12/21 21:41 Potassium 4.2 mmol/L (3.6-5.0) 08/12/21 21:41 Chloride 110.7 mmol/L (98-107) H 08/12/21 21:41 Carbon Dioxide 30 mmol/L (22-30) 08/12/21 21:41 Anion Gap 11 mmol/L 08/12/21 21:41 BUN 48 mg/dL (7-17) H 08/12/21 21:41 Creatinine 1.0 mg/dL (0.6-1.2) 08/12/21 21:41 Estimated GFR > 60 ml/min 08/12/21 21:41 BUN/Creatinine Ratio 48 % 08/12/21 21:41 Glucose 147 mg/dL (65-100) H 08/12/21 21:41 POC Glucose 109 mg/dL (70-105) H 08/13/21 05:24 Lactic Acid 2.10 mmol/L (0.7-2.0) H* 08/03/21 15:11 Calcium 8.5 mg/dL (8.4-10.2) 08/12/21 21:41 Phosphorus 4.10 mg/dL (2.5-4.5) 08/08/21 06:00 Magnesium 1.70 mg/dL (1.7-2.3) 08/12/21 21:41 Total Bilirubin 0.40 mg/dL (0.1-1.2) 08/11/21 04:30 AST 36 units/L (5-40) 08/11/21 04:30 ALT 64 units/L (7-56) H 08/11/21 04:30 Alkaline Phosphatase 75 units/L (35-129) 08/11/21 04:30 Total Protein 5.5 g/dL (6.3-8.2) L 08/11/21 04:30 Albumin 2.6 g/dL (3.9-5) L 08/11/21 04:30 Albumin/Globulin Ratio 0.9 % 08/11/21 04:30 Carcinoembryonic Ag <0.5 ng/mL (0.0-2.4) 07/31/21 04:45 Arterial Blood Glucose 126 mg/dL (65-95) H 08/13/21 05:43 Arterial Blood Ionized Calcium 4.4 mg/dL (4.6-5.3) L 08/13/21 05:43 Urine Color Yellow (Yellow) 08/08/21 20:27 Urine Turbidity Slightly-cloudy (Clear) 08/08/21 20:27 Urine pH 5.0 (5.0-7.0) 08/08/21 20:27 Ur Specific [place] 1.014 (1.003-1.030) 08/08/21 20:27 Urine Protein 30 mg/dl mg/dL (Negative) 08/08/21 20:27 Urine Glucose (UA) Neg mg/dL (Negative) 08/08/21 20:27 Urine Ketones Neg mg/dL (Negative) 08/08/21 20:27 Urine Blood Mod (Negative) 08/08/21 20:27 Urine Nitrite Neg (Negative) 08/08/21 20:27 Urine Bilirubin Neg (Negative) 08/08/21 20:27 Urine Urobilinogen < 2.0 mg/dL (<2.0) 08/08/21 20:27 Ur Leukocyte Esterase Neg (Negative) 08/08/21 20:27 Urine WBC (Auto) 6.0 /HPF (0.0-6.0) 08/08/21 20: Urine RBC (Auto) 6.0 /HPF (0.0-6.0) 08/08/21 20:27 U Epithel Cells (Auto) < 1.0 /HPF (0-13.0) 08/08/21 20: Urine Bacteria (Auto) 1+ /HPF (Negative) 08/08/21 20: Urine Mucus Few /HPF 08/08/21 20: Urine Yeast (Budding) 1+ /HPF 08/08/21 20:27 Urine Creatinine 125.6 mg/dL (0.1-20.0) H 08/01/21 Unknown Urine Sodium 12 mmol/L 08/01/21 Unknown Double Strand DNA Ab 1 IU/mL (<=4) 08/02/21 15:40 Coronavirus (PCR) Negative (Negative) 07/29/21 07:58 Hepatitis A IgM Ab Non-reactive (NonReactive) 08/02/21 15:40 Hep Bs Antigen Nonreactive (Negative) 08/02/21 15:40 Hep B Core IgM Ab Non-reactive (NonReactive) 08/02/21 15:40 Hepatitis C Antibody Non-reactive (NonReactive) 08/02/21 15:40 AFB Identification Negative 08/02/21 14:30 Microbiology: Microbiology 08/08/21 16:39 Peripheral/Venous Blood Culture - Preliminary NO GROWTH AFTER 4 DAYS 08/08/21 16:39 Peripheral/Venous Blood Culture - Preliminary NO GROWTH AFTER 4 DAYS Elizabeth/IV: Voiding Method Indwelling Catheter Active Medications - Current Medications Current Medications: Generic Name Dose Route Start Last Admin Trade Name Freq PRN Reason Stop Dose Admin Acetaminophen 650 mg 07/28/21 02:11 Acetaminophen 325 Mg Tab PO Q6H PRN Pain MILD(1-3)/Fever >100.5/GARCIA Albuterol/Ipratropium 1 ampul 07/28/21 14:00 08/13/21 07:23 Ipratropium/Albuterol Sulfate 3 Ml Ampul.Neb IH 1 ampul TID DEMIAN Administration Lipase/Protease/Amylase 1 each 07/29/21 13:01 Lipase 10,500/Protease 25,000/Amylase 43,750 (Units) Dr Cap FEEDTUBE PRN PRN For Clogged Feeding Tube Arformoterol Tartrate 15 mcg 07/28/21 20:00 08/13/21 07:24 Arformoterol 15 Mcg/2 Ml Nebu IH 15 mcg Q12HRT DEMIAN Administration Bisacodyl 10 mg 08/07/21 09:50 Bisacodyl 10 Mg Rect Supp IA QDAY PRN Constip unreliev by MOM/or NPO Budesonide 0.5 mg 07/28/21 20:00 08/13/21 07:23 Budesonide 0.5 Mg/2 Ml Nebu IH 0.5 mg Q12HRT DEMIAN Administration Dextrose 50 ml 07/28/21 02:11 08/10/21 18:05 Dextrose 50% In Water (25gm) 50 Ml Syringe IV 20 ml Q30MIN PRN Administration Hypoglycemia Protocol Enoxaparin Sodium 100 mg 08/11/21 10:00 08/13/21 06:35 Enoxaparin 100 Mg/1 Ml Inj SUB-Q Not Given Q12HR [facility] Protocol Famotidine 10 mg 08/02/21 10:00 08/12/21 22:06 Famotidine 20 Mg/2 Ml Inj IV 10 mg BID DEMIAN Administration Fentanyl 50 mcg 07/29/21 10:42 08/04/21 09:05 Fentanyl 100 Mcg/2 Ml Inj IV 50 mcg Q10MIN PRN Administration ANALGESIA Hydralazine HCl 10 mg 07/30/21 14:52 08/03/21 17:31 Hydralazine 20 Mg/1 Ml Inj IV 10 mg Q6H PRN Administration SBP > 165 Hydrophilic Ointment 1 applic 07/29/21 10:42 Lip Therapy Vaseline TP Q2HR PRN Dry Lips Fentanyl Citrate 2,000 mcg in 100 mls @ 5.35 mls/hr 07/29/21 11:00 08/13/21 04:41 Fentanyl Drip Premix IV 2 mcg/kg/hr TITR DEMIAN 10.7 mls/hr Administration Protocol 1 MCG/KG/HR Midazolam HCl 100 mg/ Sodium 100 mls @ 2 mls/hr 07/29/21 11:00 08/12/21 11:11 Chloride IV 1 mg/hr TITR DEMIAN 1 mls/hr Titration Protocol 2 MG/HR Norepinephrine 4 mg in 250 mls @ 7.5 mls/hr 07/29/21 21:00 Levophed Drip 4 Mg/Ns 250 Ml IV TITR DEMIAN Protocol 2 MCG/MIN Insulin Human Lispro 0 unit 07/29/21 12:00 08/13/21 06:33 Insulin Lispro 100 Unit/Ml SUB-Q Not Given Q6HR DEMIAN Protocol Magnesium Hydroxide 30 ml 07/28/21 02:11 Magnesium Hydroxide (Mom) Oral Liqd Udc PO Q4H PRN Constipation Midazolam HCl 2 mg 07/29/21 10:42 08/10/21 20:58 Midazolam 2 Mg/2 Ml Inj IV 2 mg Q10MIN PRN Administration Sedation Multi-Ingred Cream/Lotion/Oil/Oint 1 applic 07/29/21 10:42 Mineral Oil/Petrolatum, White Ophth Oint 3.5 Gm OU Q4HR PRN Dry Eye(s) Polyethylene Glycol 17 gm 08/11/21 16:00 08/12/21 09:36 Polyethylene Glycol 3350 17 Gm Powder PO 17 gm QDAY DEMIAN Administration Quetiapine Fumarate 200 mg 08/05/21 22:00 08/12/21 22:06 Quetiapine 200 Mg Tab PO 200 mg BID DEMIAN Administration Senna/Docusate Sodium 1 tab 08/11/21 13:00 08/12/21 22:06 Sennosides/Docusate Sodium 8.6/50 Mg Tab FEEDTUBE 1 tab Q8H DEMIAN Administration Simple Syrup 15 ml 07/29/21 13:01 Simple Syrup 15 Ml FEEDTUBE PRN PRN Hypoglycemia Simple Syrup 30 ml 07/29/21 13:01 Simple Syrup 15 Ml FEEDTUBE PRN PRN Hypoglycemia Sodium Bicarbonate 325 mg 07/29/21 13:01 Sodium Bicarbonate 325 Mg Tab FEEDTUBE PRN PRN For Clogged Feeding Tube Sodium Chloride 10 ml 07/28/21 10:00 08/12/21 22:07 Sodium Chloride 0.9% 10 Ml Flush Syringe IV 10 ml BID DEMIAN Administration Sodium Chloride 10 ml 07/28/21 02:05 Sodium Chloride 0.9% 10 Ml Flush Syringe IV PRN PRN LINE FLUSH Nutrition/Malnutrition Assess - Dietary Evaluation Nutrition/Malnutrition Findings: Nutrition Notes Start: 07/28/21 14:44 Freq: Status: Active Protocol: Document 08/11/21 11:28 JACKIE (Rec: 08/11/21 11:31 [id number]) Nutrition Notes Initial or Follow up Reassessment Current Diagnosis COPD,Diabetes,Hypertension, Respiratory Failure Other Pertinent Diagnosis pneu Current Diet Vital AF at 50 ml/hr Labs/Tests BUN 59 Pertinent Medications Reviewed Height 5 ft Weight 107 kg [place] Body Weight (kg) 45.45 BMI 46.0 Weight Status Morbidly Obese Subjective/Other Information Pt got trach and PEG yesterday . TF resumed at goal and no signs of intolerance noted. RN reports pt without BM and will speak with MD. Percent of energy/protein needs met: 96%/67% Burn Absent Trauma Absent GI Symptoms Constipation,Last BM Current % PO Negligible Minimum of two criteria No #1 Nutrition Diagnosis Inadequate oral intake Diagnosis Progress(for reassessment Continues documentation) Is patient on ventilator? Yes Is Patient Ambulatory and/or Out of Bed No REE-([place]-confined to bed) 1842.852 Kcal/Kg value to use for calculation 14 Approximate Energy Requirements Using 1498 kcal/Kg Calculation Used for Recommendations Kcal/kg Additional Notes Protein: (up to 2.5g/kg IBW) up to 134g Fluid: 1 ml/kcal or per MD Nutrition Intervention Change Diet Order: continue Nutrition Support: Vital AF 1.2 at 50 ml/hr For hypernatermia, flush 250 ml ml q4h or per MD. Once resolved, flush 100 ml q4h. Kcal 1,440 Protein (gm) 90 Fluid (mL) 973 Goal #1 Meet at least 75% of protein and energy needs via TF Anticipated Discharge Needs: Unable to determine at this time Follow-Up By: 08/16/21 Additional Comments F/u: stable TF, BM
[2021-08-13] MEDS: FREE WATER PO SCH ×4 (09:38→22:08)
[2021-08-13] MEDS: QUEtiapine 200 MG TAB PO SCH ×2 (09:38→22:16)
[2021-08-13] MEDS: POLYETHYLENE GLYCOL 3350 17 GM POWDER PO SCH (09:38)
[2021-08-13] MEDS: FAMOTIDINE 20 MG/2 ML INJ IV SCH ×2 (09:38→22:15)
--- NOTE | 2021-08-13 09:56 | Progress Note ---
Assessment and Plan Acute hypoxemic respiratory failure s/p tracheostomy s/p PEG Lung Mass -metastatic breast disease History of right breast cancer Leukocytosis DM II Hypertension Hyperlipidemia Tobacco use disorder Hypernatremia -Trach care, airway clearance, secretion management -Daily SAT and SBT assessment today - continue to titrate supplemental oxygen to keep SpO2 88-90% - VAP bundle addressed, aspiration precautions HOB >30 - continue lung protective strategies - continue bronchodilators (GLADIS & LABA) with pulmonary hygiene per RT - continue accuchecks with glycemic control per SSI (While critically ill target blood glucose of 140-180 mg/dL; avoid hypoglycemia) - sedation prn for target RASS 0 to -1 - avoid nephrotoxins, renally dose all medications -Free water flushes with hypotonic solution fro hypernatremia - continue to avoid benzodiazepines, reduce the possibility of delirium - prn analgesia per CPOT score - Maintenance of sleep-wake cycle, avoid delirium - enteric nutritional support-hold - VTE prophylaxis- Enoxaparin -Stress ulcer prophylaxis-Famotidine - PT/OT/ROM exercises - continue mobility, off loading and frequent turning per facility protocol for pressure ulcer prevention - Monitor hemodynamics closely - continue other care per attending / other consultants COVID SPECIFIC INTERVENTIONS -Negative Discharge planning, LTACH for ongoing weaning trials CONDITION: CRITICAL PROGNOSIS: GUARDED CODE STATUS: FULL CODE The high probability of a clinically significant, sudden or life-threatening deterioration of the [respiratory, cardiovascular, oncological & neurologic] system(s) required my full and direct attention, intervention and personal management. The aggregate critical care time was [35] minutes without overlap. Time includes spent on; [x] Data Review and interpretation [x] Patient assessment and monitoring of vital signs [x] Documentation [x] Medication orders and management Subjective Date of service: 08/13/21 Principal diagnosis: Ac hypoxemic resp failure ; AE-COPD; H/O CA Breast; DM II; HTN Interval history: Patient is seen today for: Acute hypoxemic respiratory failure; AE-COPD; Possible hypercapnia; H/O CA Breast; DM II; HTN Seen and examined at bedside; 24hour events reviewed; nursing and respiratory care staff consulted; no adverse overnight events reported to me; resting in bed; remains on MVS; tracheal bleeding has stopped, Remains on Fentanyl infusion and Midazolam. Overnight had an episode of bradycardia when her tracheal inner canula was being changes. Trach to MVS; ACVC 16450/+6/30% Objective Vital Signs - 12hr 08/12/21 08/12/21 08/12/21 22:00 22:15 22:29 Temperature Pulse Rate 112 H 107 H 102 H Pulse Rate [ Anterior Bilateral] Pulse Rate [ From Monitor] Respiratory 16 16 16 Rate Respiratory Rate [Anterior Bilateral] Blood Pressure 122/80 122/80 122/80 O2 Sat by Pulse 100 100 99 Oximetry O2 Sat by Pulse Oximetry [ Assessment] 08/12/21 08/12/21 08/12/21 22:31 22:45 23:00 Temperature Pulse Rate 101 H 98 H 97 H Pulse Rate [ Anterior Bilateral] Pulse Rate [ From Monitor] Respiratory 17 16 16 Rate Respiratory Rate [Anterior Bilateral] Blood Pressure 122/80 122/80 114/64 O2 Sat by Pulse 99 99 100 Oximetry O2 Sat by Pulse Oximetry [ Assessment] 08/12/21 08/12/21 08/12/21 23:15 23:31 23:40 Temperature 99.9 F H Pulse Rate 94 H 92 H Pulse Rate [ Anterior Bilateral] Pulse Rate [ From Monitor] Respiratory 17 17 Rate Respiratory Rate [Anterior Bilateral] Blood Pressure 114/64 114/64 O2 Sat by Pulse 99 99 Oximetry O2 Sat by Pulse Oximetry [ Assessment] 08/12/21 08/13/21 08/13/21 23:45 00:00 00:15 Temperature Pulse Rate 91 H 89 87 Pulse Rate [ Anterior Bilateral] Pulse Rate [ 92 H From Monitor] Respiratory 16 16 16 Rate Respiratory Rate [Anterior Bilateral] Blood Pressure 114/64 111/63 111/63 O2 Sat by Pulse 100 100 100 Oximetry O2 Sat by Pulse Oximetry [ Assessment] 08/13/21 08/13/21 08/13/21 00:21 00:31 00:45 Temperature Pulse Rate 91 H 92 H 90 Pulse Rate [ Anterior Bilateral] Pulse Rate [ From Monitor] Respiratory 17 16 Rate Respiratory Rate [Anterior Bilateral] Blood Pressure 111/63 111/63 111/63 O2 Sat by Pulse 96 94 94 Oximetry O2 Sat by Pulse Oximetry [ Assessment] 08/13/21 08/13/21 08/13/21 01:00 01:15 01:31 Temperature Pulse Rate 90 88 88 Pulse Rate [ Anterior Bilateral] Pulse Rate [ From Monitor] Respiratory 16 16 16 Rate Respiratory Rate [Anterior Bilateral] Blood Pressure 108/61 108/61 O2 Sat by Pulse 95 95 95 Oximetry O2 Sat by Pulse Oximetry [ Assessment] 08/13/21 08/13/21 08/13/21 01:45 02:00 02:15 Temperature Pulse Rate 87 87 88 Pulse Rate [ Anterior Bilateral] Pulse Rate [ From Monitor] Respiratory 16 16 16 Rate Respiratory Rate [Anterior Bilateral] Blood Pressure 108/61 95/59 95/59 O2 Sat by Pulse 96 96 96 Oximetry O2 Sat by Pulse Oximetry [ Assessment] 08/13/21 08/13/21 08/13/21 02:31 02:45 03:00 Temperature Pulse Rate 87 85 85 Pulse Rate [ Anterior Bilateral] Pulse Rate [ From Monitor] Respiratory 16 16 16 Rate Respiratory Rate [Anterior Bilateral] Blood Pressure 95/59 95/59 96/60 O2 Sat by Pulse 97 97 96 Oximetry O2 Sat by Pulse Oximetry [ Assessment] 08/13/21 08/13/21 08/13/21 03:15 03:25 03:31 Temperature 98.7 F Pulse Rate 85 91 H Pulse Rate [ Anterior Bilateral] Pulse Rate [ From Monitor] Respiratory 16 16 Rate Respiratory Rate [Anterior Bilateral] Blood Pressure 96/60 154/76 O2 Sat by Pulse 96 94 Oximetry O2 Sat by Pulse 93 Oximetry [ Assessment] 08/13/21 08/13/21 08/13/21 03:45 04:00 04:01 Temperature Pulse Rate 94 H 107 H 99 H Pulse Rate [ Anterior Bilateral] Pulse Rate [ 107 H From Monitor] Respiratory 17 16 18 Rate Respiratory Rate [Anterior Bilateral] Blood Pressure 154/76 173/92 O2 Sat by Pulse 96 98 97 Oximetry O2 Sat by Pulse Oximetry [ Assessment] 08/13/21 08/13/21 08/13/21 04:12 04:15 04:31 Temperature Pulse Rate 74 72 96 H Pulse Rate [ Anterior Bilateral] Pulse Rate [ From Monitor] Respiratory 16 17 Rate Respiratory Rate [Anterior Bilateral] Blood Pressure 197/106 197/106 154/76 O2 Sat by Pulse 94 95 95 Oximetry O2 Sat by Pulse Oximetry [ Assessment] 08/13/21 08/13/21 08/13/21 04:45 05:00 05:15 Temperature Pulse Rate 94 H 90 95 H Pulse Rate [ Anterior Bilateral] Pulse Rate [ From Monitor] Respiratory 16 16 16 Rate Respiratory Rate [Anterior Bilateral] Blood Pressure 130/66 116/65 116/65 O2 Sat by Pulse 96 95 96 Oximetry O2 Sat by Pulse Oximetry [ Assessment] 08/13/21 08/13/21 08/13/21 05:31 05:45 06:01 Temperature Pulse Rate 94 H 92 H 91 H Pulse Rate [ Anterior Bilateral] Pulse Rate [ From Monitor] Respiratory 16 16 16 Rate Respiratory Rate [Anterior Bilateral] Blood Pressure 116/65 116/65 134/77 O2 Sat by Pulse 95 95 Oximetry O2 Sat by Pulse Oximetry [ Assessment] 08/13/21 08/13/21 08/13/21 06:15 06:31 06:45 Temperature Pulse Rate 99 H 93 H 92 H Pulse Rate [ Anterior Bilateral] Pulse Rate [ From Monitor] Respiratory 19 16 16 Rate Respiratory Rate [Anterior Bilateral] Blood Pressure 134/77 134/77 134/77 O2 Sat by Pulse 97 98 Oximetry O2 Sat by Pulse Oximetry [ Assessment] 08/13/21 08/13/21 08/13/21 07:00 07:15 07:23 Temperature 99.8 F H Pulse Rate 49 L 91 H 89 Pulse Rate [ 89 Anterior Bilateral] Pulse Rate [ From Monitor] Respiratory 13 16 Rate Respiratory 16 Rate [Anterior Bilateral] Blood Pressure 121/60 121/60 121/60 O2 Sat by Pulse 97 97 98 Oximetry O2 Sat by Pulse 98 Oximetry [ Assessment] 08/13/21 08/13/21 08/13/21 07:31 07:45 08:00 Temperature Pulse Rate 58 L 94 H 92 H Pulse Rate [ Anterior Bilateral] Pulse Rate [ From Monitor] Respiratory 11 L 16 16 Rate Respiratory Rate [Anterior Bilateral] Blood Pressure 121/60 121/60 126/69 O2 Sat by Pulse 98 100 99 Oximetry O2 Sat by Pulse Oximetry [ Assessment] 08/13/21 08/13/21 08/13/21 08:15 08:31 08:45 Temperature Pulse Rate 92 H 93 H 96 H Pulse Rate [ Anterior Bilateral] Pulse Rate [ From Monitor] Respiratory 16 16 16 Rate Respiratory Rate [Anterior Bilateral] Blood Pressure 126/69 126/69 121/60 O2 Sat by Pulse 99 95 95 Oximetry O2 Sat by Pulse Oximetry [ Assessment] 08/13/21 08/13/21 09:00 09:15 Temperature Pulse Rate 96 H 96 H Pulse Rate [ Anterior Bilateral] Pulse Rate [ From Monitor] Respiratory 17 17 Rate Respiratory Rate [Anterior Bilateral] Blood Pressure 146/72 126/69 O2 Sat by Pulse 99 98 Oximetry O2 Sat by Pulse Oximetry [ Assessment] Constitutional: no acute distress (sedate), other (eldely obese female without increased respiratory effort at rest on MVS) Eyes: non-icteric ENT: oropharynx moist, other (trach Shiley #[id number], cuffed; no bleeding) Neck: supple, no lymphadenopathy, no JVD Effort: mildly labored Ascultation: Bilateral: diminished breath sounds Percussion: Bilateral: not dull Cardiovascular: regular rate and rhythm, other (S1,S2) Gastrointestinal: normoactive bowel sounds, soft, non-tender, non-distended, other (PEG) Integumentary: normal Extremities: no cyanosis, no edema, pulses normal, no ischemia or petechiae Neurologic: non-focal exam (moves all extremities), pupils equal and round Psychiatric: mood appropriate, affect normal CBC and BMP: 08/14/21 04:00 08/14/21 04:00 ABG, PT/INR, D-dimer: ABG ABG pH 7.399 (7.320-7.450) 08/13/21 05:43 POC ABG pCO2 44.3 mmHg (32.0-48.0) 08/13/21 05:43 POC ABG pO2 76.8 mmHg (83-108) L 08/13/21 05:43 POC ABG HCO3 26.8 08/13/21 05:43 ABG O2 Saturation 94.7 (0-100) 08/13/21 05:43 PT/INR, D-dimer PT 14.5 Sec. (12.2-14.9) 08/12/21 21:41 INR 1.08 (0.87-1.13) 08/12/21 21:41 D-Dimer 852.47 ng/mlDDU (0-234) H 07/29/21 07:17 Abnormal lab findings: Abnormal Labs 07/27/21 07/27/21 07/27/21 22:57 22:57 22:57 WBC 20.3 H RBC Hgb Hct RDW Lymph % (Auto) Lymph # (Auto) [facility] # (Auto) Seg Neutrophils % Seg Neuts % (Manual) 89.0 H Lymphocytes % (Manual) 9.0 L Nucleated RBC % Seg Neutrophils # Seg Neutrophils # Man 18.1 H Lymphocytes # (Manual) Monocytes # (Manual) D-Dimer ABG pH POC ABG pCO2 POC ABG pO2 ABG Hemoglobin ABG Oxyhemoglobin ABG Sodium ABG Potassium ABG Chloride ABG Glucose Carboxyhemoglobin Sodium Potassium 3.5 L Chloride 96.9 L Carbon Dioxide 20 L BUN 19 H Creatinine Glucose 204 H POC Glucose Lactic Acid 7.20 H* Calcium Magnesium AST 98 H ALT 90 H Total Protein Albumin Arterial Blood Glucose Arterial Blood Ionized Calcium Urine WBC (Auto) Urine Creatinine 07/28/21 07/28/21 07/28/21 01:31 07:49 10:00 WBC RBC Hgb Hct RDW Lymph % (Auto) Lymph # (Auto) [facility] # (Auto) Seg Neutrophils % Seg Neuts % (Manual) Lymphocytes % (Manual) Nucleated RBC % Seg Neutrophils # Seg Neutrophils # Man Lymphocytes # (Manual) Monocytes # (Manual) D-Dimer ABG pH POC ABG pCO2 POC ABG pO2 ABG Hemoglobin ABG Oxyhemoglobin ABG Sodium ABG Potassium ABG Chloride ABG Glucose Carboxyhemoglobin Sodium Potassium Chloride Carbon Dioxide BUN Creatinine Glucose POC Glucose 194 H Lactic Acid 6.90 H* 6.70 H* Calcium Magnesium AST ALT Total Protein Albumin Arterial Blood Glucose Arterial Blood Ionized Calcium Urine WBC (Auto) Urine Creatinine 07/28/21 07/28/21 07/28/21 12:41 13:21 16:21 WBC RBC Hgb Hct RDW Lymph % (Auto) Lymph # (Auto) [facility] # (Auto) Seg Neutrophils % Seg Neuts % (Manual) Lymphocytes % (Manual) Nucleated RBC % Seg Neutrophils # Seg Neutrophils # Man Lymphocytes # (Manual) Monocytes # (Manual) D-Dimer ABG pH POC ABG pCO2 POC ABG pO2 ABG Hemoglobin ABG Oxyhemoglobin ABG Sodium ABG Potassium ABG Chloride ABG Glucose Carboxyhemoglobin Sodium Potassium Chloride Carbon Dioxide BUN Creatinine Glucose POC Glucose 159 H 155 H Lactic Acid 6.10 H* Calcium Magnesium AST ALT Total Protein Albumin Arterial Blood Glucose Arterial Blood Ionized Calcium Urine WBC (Auto) Urine Creatinine 07/28/21 07/29/21 07/29/21 22:03 04:44 04:44 WBC 17.0 H RBC Hgb Hct RDW Lymph % (Auto) Lymph # (Auto) [facility] # (Auto) Seg Neutrophils % Seg Neuts % (Manual) 82.0 H Lymphocytes % (Manual) 11.0 L Nucleated RBC % Seg Neutrophils # Seg Neutrophils # Man 13.9 H Lymphocytes # (Manual) Monocytes # (Manual) 1.0 H D-Dimer ABG pH POC ABG pCO2 POC ABG pO2 ABG Hemoglobin ABG Oxyhemoglobin ABG Sodium ABG Potassium ABG Chloride ABG Glucose Carboxyhemoglobin Sodium Potassium Chloride Carbon Dioxide BUN 23 H Creatinine Glucose 196 H POC Glucose 187 H Lactic Acid Calcium Magnesium AST ALT Total Protein Albumin Arterial Blood Glucose Arterial Blood Ionized Calcium Urine WBC (Auto) Urine Creatinine 07/29/21 07/29/21 07/29/21 06:56 07:17 07:17 WBC 26.1 H RBC Hgb Hct 43.3 H RDW 16.0 H Lymph % (Auto) Lymph # (Auto) [facility] # (Auto) Seg Neutrophils % Seg Neuts % (Manual) 80.0 H Lymphocytes % (Manual) Nucleated RBC % Seg Neutrophils # Seg Neutrophils # Man 20.9 H Lymphocytes # (Manual) Monocytes # (Manual) D-Dimer ABG pH POC ABG pCO2 POC ABG pO2 ABG Hemoglobin ABG Oxyhemoglobin ABG Sodium ABG Potassium ABG Chloride ABG Glucose Carboxyhemoglobin Sodium Potassium Chloride Carbon Dioxide 20 L D BUN 23 H Creatinine Glucose 308 H POC Glucose 165 H Lactic Acid Calcium Magnesium AST ALT Total Protein Albumin Arterial Blood Glucose Arterial Blood Ionized Calcium Urine WBC (Auto) Urine Creatinine 07/29/21 07/29/21 07/29/21 07:17 09:16 10:30 WBC RBC Hgb Hct RDW Lymph % (Auto) Lymph # (Auto) [facility] # (Auto) Seg Neutrophils % Seg Neuts % (Manual) Lymphocytes % (Manual) Nucleated RBC % Seg Neutrophils # Seg Neutrophils # Man Lymphocytes # (Manual) Monocytes # (Manual) D-Dimer 852.47 H ABG pH 7.236 L POC ABG pCO2 56.0 H POC ABG pO2 266.4 H ABG Hemoglobin ABG Oxyhemoglobin 99.1 H ABG Sodium 132.3 L ABG Potassium 4.9 H ABG Chloride ABG Glucose 202 H Carboxyhemoglobin 0.2 L Sodium Potassium Chloride Carbon Dioxide BUN Creatinine Glucose POC Glucose 271 H Lactic Acid Calcium Magnesium AST ALT Total Protein Albumin Arterial Blood Glucose 202 H Arterial Blood Ionized Calcium Urine WBC (Auto) Urine Creatinine 07/29/21 07/29/21 07/30/21 17:54 23:32 05:08 WBC RBC Hgb Hct RDW Lymph % (Auto) Lymph # (Auto) [facility] # (Auto) Seg Neutrophils % Seg Neuts % (Manual) Lymphocytes % (Manual) Nucleated RBC % Seg Neutrophils # Seg Neutrophils # Man Lymphocytes # (Manual) Monocytes # (Manual) D-Dimer ABG pH POC ABG pCO2 POC ABG pO2 ABG Hemoglobin ABG Oxyhemoglobin ABG Sodium ABG Potassium ABG Chloride ABG Glucose Carboxyhemoglobin Sodium Potassium Chloride Carbon Dioxide BUN Creatinine Glucose POC Glucose 168 H 205 H 214 H Lactic Acid Calcium Magnesium AST ALT Total Protein Albumin Arterial Blood Glucose Arterial Blood Ionized Calcium Urine WBC (Auto) Urine Creatinine 07/30/21 07/30/21 07/30/21 06:01 11:32 17:34 WBC RBC Hgb Hct RDW Lymph % (Auto) Lymph # (Auto) [facility] # (Auto) Seg Neutrophils % Seg Neuts % (Manual) Lymphocytes % (Manual) Nucleated RBC % Seg Neutrophils # Seg Neutrophils # Man Lymphocytes # (Manual) Monocytes # (Manual) D-Dimer ABG pH 7.480 H POC ABG pCO2 23.6 L POC ABG pO2 280.0 H ABG Hemoglobin ABG Oxyhemoglobin 99.3 H ABG Sodium 133.7 L ABG Potassium ABG Chloride ABG Glucose 232 H Carboxyhemoglobin 0 L Sodium Potassium Chloride Carbon Dioxide BUN Creatinine Glucose POC Glucose 207 H 239 H Lactic Acid Calcium Magnesium AST ALT Total Protein Albumin Arterial Blood Glucose 232 H Arterial Blood Ionized Calcium 4.4 L Urine WBC (Auto) Urine Creatinine 07/30/21 07/31/21 07/31/21 23:39 03:34 04:45 WBC 15.0 H RBC Hgb Hct RDW 15.5 H Lymph % (Auto) Lymph # (Auto) [facility] # (Auto) Seg Neutrophils % Seg Neuts % (Manual) 89.0 H Lymphocytes % (Manual) 7.0 L Nucleated RBC % Seg Neutrophils # Seg Neutrophils # Man 13.4 H Lymphocytes # (Manual) 1.1 L Monocytes # (Manual) D-Dimer ABG pH 7.481 H POC ABG pCO2 31.8 L POC ABG pO2 ABG Hemoglobin ABG Oxyhemoglobin ABG Sodium 135.2 L ABG Potassium 3.3 L ABG Chloride ABG Glucose 188 H Carboxyhemoglobin 0.1 L Sodium Potassium Chloride Carbon Dioxide BUN Creatinine Glucose POC Glucose 176 H Lactic Acid Calcium Magnesium AST ALT Total Protein Albumin Arterial Blood Glucose 188 H Arterial Blood Ionized Calcium 4.4 L Urine WBC (Auto) Urine Creatinine 07/31/21 07/31/21 07/31/21 04:45 04:45 11:28 WBC RBC Hgb Hct RDW Lymph % (Auto) Lymph # (Auto) [facility] # (Auto) Seg Neutrophils % Seg Neuts % (Manual) Lymphocytes % (Manual) Nucleated RBC % Seg Neutrophils # Seg Neutrophils # Man Lymphocytes # (Manual) Monocytes # (Manual) D-Dimer ABG pH POC ABG pCO2 POC ABG pO2 ABG Hemoglobin ABG Oxyhemoglobin ABG Sodium ABG Potassium ABG Chloride ABG Glucose Carboxyhemoglobin Sodium Potassium 3.4 L Chloride Carbon Dioxide BUN 61 H Creatinine 2.6 H D Glucose 176 H POC Glucose 195 H 245 H Lactic Acid Calcium Magnesium AST ALT Total Protein Albumin Arterial Blood Glucose Arterial Blood Ionized Calcium Urine WBC (Auto) Urine Creatinine 07/31/21 07/31/21 08/01/21 17:32 23:58 01:00 WBC RBC Hgb Hct RDW Lymph % (Auto) Lymph # (Auto) [facility] # (Auto) Seg Neutrophils % Seg Neuts % (Manual) Lymphocytes % (Manual) Nucleated RBC % Seg Neutrophils # Seg Neutrophils # Man Lymphocytes # (Manual) Monocytes # (Manual) D-Dimer ABG pH POC ABG pCO2 POC ABG pO2 ABG Hemoglobin ABG Oxyhemoglobin ABG Sodium ABG Potassium ABG Chloride ABG Glucose 284 H Carboxyhemoglobin 0.3 L Sodium Potassium Chloride Carbon Dioxide BUN Creatinine Glucose POC Glucose 251 H 294 H Lactic Acid Calcium Magnesium AST ALT Total Protein Albumin Arterial Blood Glucose 284 H Arterial Blood Ionized Calcium Urine WBC (Auto) Urine Creatinine 08/01/21 08/01/21 08/01/21 05:50 05:50 06:11 WBC 16.2 H RBC Hgb Hct RDW 15.5 H Lymph % (Auto) Lymph # (Auto) [facility] # (Auto) Seg Neutrophils % Seg Neuts % (Manual) 93.0 H Lymphocytes % (Manual) 2.0 L Nucleated RBC % 3.0 H Seg Neutrophils # Seg Neutrophils # Man 15.1 H Lymphocytes # (Manual) 0.3 L Monocytes # (Manual) D-Dimer ABG pH POC ABG pCO2 POC ABG pO2 ABG Hemoglobin ABG Oxyhemoglobin ABG Sodium ABG Potassium ABG Chloride ABG Glucose Carboxyhemoglobin Sodium Potassium Chloride Carbon Dioxide BUN 64 H Creatinine 1.9 H Glucose 277 H POC Glucose 256 H Lactic Acid Calcium Magnesium AST ALT Total Protein Albumin Arterial Blood Glucose Arterial Blood Ionized Calcium Urine WBC (Auto) Urine Creatinine 08/01/21 08/01/21 08/01/21 11:39 17:25 23:53 WBC RBC Hgb Hct RDW Lymph % (Auto) Lymph # (Auto) [facility] # (Auto) Seg Neutrophils % Seg Neuts % (Manual) Lymphocytes % (Manual) Nucleated RBC % Seg Neutrophils # Seg Neutrophils # Man Lymphocytes # (Manual) Monocytes # (Manual) D-Dimer ABG pH POC ABG pCO2 POC ABG pO2 ABG Hemoglobin ABG Oxyhemoglobin ABG Sodium ABG Potassium ABG Chloride ABG Glucose Carboxyhemoglobin Sodium Potassium Chloride Carbon Dioxide BUN Creatinine Glucose POC Glucose 289 H 275 H 327 H Lactic Acid Calcium Magnesium AST ALT Total Protein Albumin Arterial Blood Glucose Arterial Blood Ionized Calcium Urine WBC (Auto) Urine Creatinine 08/01/21 08/02/21 08/02/21 Unknown 04:00 12:03 WBC RBC Hgb Hct RDW Lymph % (Auto) Lymph # (Auto) [facility] # (Auto) Seg Neutrophils % Seg Neuts % (Manual) Lymphocytes % (Manual) Nucleated RBC % Seg Neutrophils # Seg Neutrophils # Man Lymphocytes # (Manual) Monocytes # (Manual) D-Dimer ABG pH POC ABG pCO2 POC ABG pO2 ABG Hemoglobin ABG Oxyhemoglobin ABG Sodium ABG Potassium ABG Chloride ABG Glucose 325 H Carboxyhemoglobin 0.4 L Sodium Potassium Chloride Carbon Dioxide BUN Creatinine Glucose POC Glucose 209 H Lactic Acid Calcium Magnesium AST ALT Total Protein Albumin Arterial Blood Glucose 325 H Arterial Blood Ionized Calcium Urine WBC (Auto) Urine Creatinine 125.6 H 08/02/21 08/02/21 08/02/21 15:30 17:03 23:17 WBC RBC Hgb Hct RDW Lymph % (Auto) Lymph # (Auto) [facility] # (Auto) Seg Neutrophils % Seg Neuts % (Manual) Lymphocytes % (Manual) Nucleated RBC % Seg Neutrophils # Seg Neutrophils # Man Lymphocytes # (Manual) Monocytes # (Manual) D-Dimer ABG pH POC ABG pCO2 POC ABG pO2 ABG Hemoglobin ABG Oxyhemoglobin ABG Sodium ABG Potassium ABG Chloride ABG Glucose Carboxyhemoglobin Sodium Potassium Chloride Carbon Dioxide BUN Creatinine Glucose POC Glucose 210 H 265 H Lactic Acid Calcium Magnesium AST ALT Total Protein Albumin Arterial Blood Glucose Arterial Blood Ionized Calcium Urine WBC (Auto) 47.0 H Urine Creatinine 08/02/21 08/02/21 08/03/21 Unknown Unknown 04:17 WBC 14.1 H RBC Hgb Hct RDW 16.3 H Lymph % (Auto) 5.1 L Lymph # (Auto) 0.[address] [facility] # (Auto) 0.9 H Seg Neutrophils % 88.7 H Seg Neuts % (Manual) Lymphocytes % (Manual) Nucleated RBC % Seg Neutrophils # 12.5 H Seg Neutrophils # Man Lymphocytes # (Manual) Monocytes # (Manual) D-Dimer ABG pH POC ABG pCO2 POC ABG pO2 ABG Hemoglobin ABG Oxyhemoglobin ABG Sodium ABG Potassium ABG Chloride ABG Glucose Carboxyhemoglobin Sodium Potassium Chloride Carbon Dioxide BUN 72 H 72 H Creatinine 1.8 H 1.6 H Glucose 307 H 263 H POC Glucose Lactic Acid Calcium Magnesium AST ALT Total Protein Albumin Arterial Blood Glucose Arterial Blood Ionized Calcium Urine WBC (Auto) Urine Creatinine 08/03/21 08/03/21 08/03/21 04:17 05:30 08:30 WBC 13.9 H RBC Hgb Hct RDW 16.0 H Lymph % (Auto) Lymph # (Auto) [facility] # (Auto) Seg Neutrophils % Seg Neuts % (Manual) Lymphocytes % (Manual) Nucleated RBC % Seg Neutrophils # Seg Neutrophils # Man Lymphocytes # (Manual) Monocytes # (Manual) D-Dimer ABG pH POC ABG pCO2 POC ABG pO2 ABG Hemoglobin ABG Oxyhemoglobin ABG Sodium ABG Potassium ABG Chloride ABG Glucose Carboxyhemoglobin Sodium Potassium Chloride Carbon Dioxide BUN Creatinine Glucose POC Glucose 280 H Lactic Acid Calcium Magnesium 3.00 H AST ALT Total Protein Albumin Arterial Blood Glucose Arterial Blood Ionized Calcium Urine WBC (Auto) Urine Creatinine 08/03/21 08/03/21 08/03/21 12:14 13:39 15:11 WBC RBC Hgb Hct RDW Lymph % (Auto) Lymph # (Auto) [facility] # (Auto) Seg Neutrophils % Seg Neuts % (Manual) Lymphocytes % (Manual) Nucleated RBC % Seg Neutrophils # Seg Neutrophils # Man Lymphocytes # (Manual) Monocytes # (Manual) D-Dimer ABG pH POC ABG pCO2 POC ABG pO2 ABG Hemoglobin ABG Oxyhemoglobin ABG Sodium ABG Potassium ABG Chloride ABG Glucose 306 H Carboxyhemoglobin 0.3 L Sodium Potassium Chloride Carbon Dioxide BUN Creatinine Glucose POC Glucose 287 H Lactic Acid 2.10 H* Calcium Magnesium AST ALT Total Protein Albumin Arterial Blood Glucose 306 H Arterial Blood Ionized Calcium Urine WBC (Auto) Urine Creatinine 08/03/21 08/03/21 08/04/21 16:52 23:08 04:00 WBC RBC Hgb Hct RDW Lymph % (Auto) Lymph # (Auto) [facility] # (Auto) Seg Neutrophils % Seg Neuts % (Manual) Lymphocytes % (Manual) Nucleated RBC % Seg Neutrophils # Seg Neutrophils # Man Lymphocytes # (Manual) Monocytes # (Manual) D-Dimer ABG pH POC ABG pCO2 54.3 H POC ABG pO2 82.2 L ABG Hemoglobin ABG Oxyhemoglobin ABG Sodium 145.1 H ABG Potassium 5.0 H ABG Chloride ABG Glucose 316 H Carboxyhemoglobin 0.3 L Sodium Potassium Chloride Carbon Dioxide BUN Creatinine Glucose POC Glucose 282 H 289 H Lactic Acid Calcium Magnesium AST ALT Total Protein Albumin Arterial Blood Glucose 316 H Arterial Blood Ionized Calcium Urine WBC (Auto) Urine Creatinine 08/04/21 08/04/21 08/04/21 04:38 04:38 05:19 WBC 17.7 H RBC Hgb Hct RDW 16.5 H Lymph % (Auto) Lymph # (Auto) [facility] # (Auto) Seg Neutrophils % Seg Neuts % (Manual) Lymphocytes % (Manual) Nucleated RBC % Seg Neutrophils # Seg Neutrophils # Man Lymphocytes # (Manual) Monocytes # (Manual) D-Dimer ABG pH POC ABG pCO2 POC ABG pO2 ABG Hemoglobin ABG Oxyhemoglobin ABG Sodium ABG Potassium ABG Chloride ABG Glucose Carboxyhemoglobin Sodium Potassium Chloride 108.3 H Carbon Dioxide BUN 76 H Creatinine 1.4 H Glucose 310 H POC Glucose 268 H Lactic Acid Calcium Magnesium 2.70 H AST ALT Total Protein Albumin Arterial Blood Glucose Arterial Blood Ionized Calcium Urine WBC (Auto) Urine Creatinine 08/04/21 08/04/21 08/04/21 11:48 16:41 23:49 WBC RBC Hgb Hct RDW Lymph % (Auto) Lymph # (Auto) [facility] # (Auto) Seg Neutrophils % Seg Neuts % (Manual) Lymphocytes % (Manual) Nucleated RBC % Seg Neutrophils # Seg Neutrophils # Man Lymphocytes # (Manual) Monocytes # (Manual) D-Dimer ABG pH POC ABG pCO2 POC ABG pO2 ABG Hemoglobin ABG Oxyhemoglobin ABG Sodium ABG Potassium ABG Chloride ABG Glucose Carboxyhemoglobin Sodium Potassium Chloride Carbon Dioxide BUN Creatinine Glucose POC Glucose 197 H 208 H 209 H Lactic Acid Calcium Magnesium AST ALT Total Protein Albumin Arterial Blood Glucose Arterial Blood Ionized Calcium Urine WBC (Auto) Urine Creatinine 08/05/21 08/05/21 08/05/21 04:00 04:50 04:50 WBC 19.0 H RBC Hgb Hct RDW 17.0 H Lymph % (Auto) Lymph # (Auto) [facility] # (Auto) Seg Neutrophils % Seg Neuts % (Manual) 75.0 H Lymphocytes % (Manual) 2.0 L Nucleated RBC % Seg Neutrophils # Seg Neutrophils # Man 14.3 H Lymphocytes # (Manual) 0.4 L Monocytes # (Manual) 1.0 H D-Dimer ABG pH 7.314 L POC ABG pCO2 48.9 H POC ABG pO2 ABG Hemoglobin ABG Oxyhemoglobin ABG Sodium ABG Potassium 5.0 H ABG Chloride 109.0 H ABG Glucose 234 H Carboxyhemoglobin 0.4 L Sodium Potassium 5.2 H Chloride 110.0 H Carbon Dioxide BUN 90 H Creatinine 1.8 H Glucose 235 H POC Glucose Lactic Acid Calcium Magnesium 2.60 H AST ALT Total Protein Albumin Arterial Blood Glucose 234 H Arterial Blood Ionized Calcium Urine WBC (Auto) Urine Creatinine 08/05/21 08/05/21 08/05/21 06:05 12:02 17:08 WBC RBC Hgb Hct RDW Lymph % (Auto) Lymph # (Auto) [facility] # (Auto) Seg Neutrophils % Seg Neuts % (Manual) Lymphocytes % (Manual) Nucleated RBC % Seg Neutrophils # Seg Neutrophils # Man Lymphocytes # (Manual) Monocytes # (Manual) D-Dimer ABG pH POC ABG pCO2 POC ABG pO2 ABG Hemoglobin ABG Oxyhemoglobin ABG Sodium ABG Potassium ABG Chloride ABG Glucose Carboxyhemoglobin Sodium Potassium Chloride Carbon Dioxide BUN Creatinine Glucose POC Glucose 225 H 193 H 263 H Lactic Acid Calcium Magnesium AST ALT Total Protein Albumin Arterial Blood Glucose Arterial Blood Ionized Calcium Urine WBC (Auto) Urine Creatinine 08/05/21 08/06/21 08/06/21 23:34 05:00 05:00 WBC 16.8 H RBC 3.64 L Hgb Hct RDW 16.6 H Lymph % (Auto) Lymph # (Auto) [facility] # (Auto) Seg Neutrophils % Seg Neuts % (Manual) Lymphocytes % (Manual) Nucleated RBC % Seg Neutrophils # Seg Neutrophils # Man Lymphocytes # (Manual) Monocytes # (Manual) D-Dimer ABG pH POC ABG pCO2 POC ABG pO2 ABG Hemoglobin ABG Oxyhemoglobin ABG Sodium ABG Potassium ABG Chloride ABG Glucose Carboxyhemoglobin Sodium Potassium Chloride 109.3 H Carbon Dioxide BUN 89 H Creatinine 1.6 H Glucose 197 H POC Glucose 224 H Lactic Acid Calcium 8.2 L Magnesium AST ALT Total Protein Albumin Arterial Blood Glucose Arterial Blood Ionized Calcium Urine WBC (Auto) Urine Creatinine 08/06/21 08/06/21 08/06/21 05:26 11:38 16:30 WBC RBC Hgb Hct RDW Lymph % (Auto) Lymph # (Auto) [facility] # (Auto) Seg Neutrophils % Seg Neuts % (Manual) Lymphocytes % (Manual) Nucleated RBC % Seg Neutrophils # Seg Neutrophils # Man Lymphocytes # (Manual) Monocytes # (Manual) D-Dimer ABG pH POC ABG pCO2 POC ABG pO2 ABG Hemoglobin ABG Oxyhemoglobin ABG Sodium ABG Potassium ABG Chloride ABG Glucose Carboxyhemoglobin Sodium Potassium Chloride Carbon Dioxide BUN Creatinine Glucose POC Glucose 168 H 160 H 135 H Lactic Acid Calcium Magnesium AST ALT Total Protein Albumin Arterial Blood Glucose Arterial Blood Ionized Calcium Urine WBC (Auto) Urine Creatinine 08/06/21 08/07/21 08/07/21 23:08 04:00 04:00 WBC 13.6 H RBC 3.30 L Hgb 9.5 L Hct 29.2 L RDW 16.7 H Lymph % (Auto) Lymph # (Auto) [facility] # (Auto) Seg Neutrophils % Seg Neuts % (Manual) Lymphocytes % (Manual) Nucleated RBC % Seg Neutrophils # Seg Neutrophils # Man Lymphocytes # (Manual) Monocytes # (Manual) D-Dimer ABG pH POC ABG pCO2 POC ABG pO2 ABG Hemoglobin ABG Oxyhemoglobin ABG Sodium ABG Potassium ABG Chloride ABG Glucose Carboxyhemoglobin Sodium 146 H Potassium Chloride 111.4 H Carbon Dioxide BUN 78 H Creatinine 1.5 H Glucose 143 H POC Glucose 125 H Lactic Acid Calcium 8.2 L Magnesium AST ALT Total Protein Albumin Arterial Blood Glucose Arterial Blood Ionized Calcium Urine WBC (Auto) Urine Creatinine 08/07/21 08/07/21 08/07/21 04:00 05:16 12:12 WBC RBC Hgb Hct RDW Lymph % (Auto) Lymph # (Auto) [facility] # (Auto) Seg Neutrophils % Seg Neuts % (Manual) Lymphocytes % (Manual) Nucleated RBC % Seg Neutrophils # Seg Neutrophils # Man Lymphocytes # (Manual) Monocytes # (Manual) D-Dimer ABG pH POC ABG pCO2 POC ABG pO2 80.1 L ABG Hemoglobin 9.8 L ABG Oxyhemoglobin ABG Sodium ABG Potassium ABG Chloride 111.0 H ABG Glucose 157 H Carboxyhemoglobin 0.3 L Sodium Potassium Chloride Carbon Dioxide BUN Creatinine Glucose POC Glucose 144 H 125 H Lactic Acid Calcium Magnesium AST ALT Total Protein Albumin Arterial Blood Glucose 157 H Arterial Blood Ionized Calcium 4.5 L Urine WBC (Auto) Urine Creatinine 08/07/21 08/08/21 08/08/21 23:20 04:47 06:00 WBC 13.8 H RBC 3.19 L Hgb 9.3 L Hct 28.4 L RDW 16.4 H Lymph % (Auto) Lymph # (Auto) [facility] # (Auto) Seg Neutrophils % Seg Neuts % (Manual) Lymphocytes % (Manual) Nucleated RBC % Seg Neutrophils # Seg Neutrophils # Man Lymphocytes # (Manual) Monocytes # (Manual) D-Dimer ABG pH POC ABG pCO2 POC ABG pO2 ABG Hemoglobin ABG Oxyhemoglobin ABG Sodium ABG Potassium ABG Chloride ABG Glucose Carboxyhemoglobin Sodium Potassium Chloride Carbon Dioxide BUN Creatinine Glucose POC Glucose 118 H 130 H Lactic Acid Calcium Magnesium AST ALT Total Protein Albumin Arterial Blood Glucose Arterial Blood Ionized Calcium Urine WBC (Auto) Urine Creatinine 08/08/21 08/08/21 08/08/21 06:00 11:33 17:54 WBC RBC Hgb Hct RDW Lymph % (Auto) Lymph # (Auto) [facility] # (Auto) Seg Neutrophils % Seg Neuts % (Manual) Lymphocytes % (Manual) Nucleated RBC % Seg Neutrophils # Seg Neutrophils # Man Lymphocytes # (Manual) Monocytes # (Manual) D-Dimer ABG pH POC ABG pCO2 POC ABG pO2 ABG Hemoglobin ABG Oxyhemoglobin ABG Sodium ABG Potassium ABG Chloride ABG Glucose Carboxyhemoglobin Sodium 147 H Potassium Chloride 112.4 H Carbon Dioxide BUN 71 H Creatinine 1.4 H Glucose 124 H POC Glucose 126 H 124 H Lactic Acid Calcium Magnesium AST ALT Total Protein Albumin Arterial Blood Glucose Arterial Blood Ionized Calcium Urine WBC (Auto) Urine Creatinine 08/08/21 08/09/21 08/09/21 23:41 06:06 10:00 WBC RBC Hgb Hct RDW Lymph % (Auto) Lymph # (Auto) [facility] # (Auto) Seg Neutrophils % Seg Neuts % (Manual) Lymphocytes % (Manual) Nucleated RBC % Seg Neutrophils # Seg Neutrophils # Man Lymphocytes # (Manual) Monocytes # (Manual) D-Dimer ABG pH POC ABG pCO2 POC ABG pO2 ABG Hemoglobin ABG Oxyhemoglobin ABG Sodium ABG Potassium ABG Chloride ABG Glucose Carboxyhemoglobin Sodium 146 H Potassium Chloride 111.3 H Carbon Dioxide BUN 72 H Creatinine 1.5 H Glucose 119 H POC Glucose 119 H 127 H Lactic Acid Calcium Magnesium AST ALT 69 H Total Protein 5.2 L Albumin 2.6 L Arterial Blood Glucose Arterial Blood Ionized Calcium Urine WBC (Auto) Urine Creatinine 08/09/21 08/09/21 08/09/21 10:00 11:34 16:50 WBC 13.0 H RBC 2.88 L Hgb 8.5 L Hct 25.8 L RDW 16.5 H Lymph % (Auto) Lymph # (Auto) [facility] # (Auto) Seg Neutrophils % Seg Neuts % (Manual) Lymphocytes % (Manual) Nucleated RBC % Seg Neutrophils # Seg Neutrophils # Man Lymphocytes # (Manual) Monocytes # (Manual) D-Dimer ABG pH POC ABG pCO2 POC ABG pO2 ABG Hemoglobin ABG Oxyhemoglobin ABG Sodium ABG Potassium ABG Chloride ABG Glucose Carboxyhemoglobin Sodium Potassium Chloride Carbon Dioxide BUN Creatinine Glucose POC Glucose 114 H 117 H Lactic Acid Calcium Magnesium AST ALT Total Protein Albumin Arterial Blood Glucose Arterial Blood Ionized Calcium Urine WBC (Auto) Urine Creatinine 08/10/21 08/10/21 08/10/21 00:12 05:20 05:20 WBC 13.2 H RBC 2.92 L Hgb 8.4 L Hct 25.9 L RDW 16.7 H Lymph % (Auto) Lymph # (Auto) [facility] # (Auto) Seg Neutrophils % Seg Neuts % (Manual) Lymphocytes % (Manual) Nucleated RBC % Seg Neutrophils # Seg Neutrophils # Man Lymphocytes # (Manual) Monocytes # (Manual) D-Dimer ABG pH POC ABG pCO2 POC ABG pO2 ABG Hemoglobin ABG Oxyhemoglobin ABG Sodium ABG Potassium ABG Chloride ABG Glucose Carboxyhemoglobin Sodium 147 H Potassium Chloride 111.8 H Carbon Dioxide BUN 68 H Creatinine 1.4 H Glucose POC Glucose 114 H Lactic Acid Calcium Magnesium AST ALT Total Protein Albumin Arterial Blood Glucose Arterial Blood Ionized Calcium Urine WBC (Auto) Urine Creatinine 08/10/21 08/10/21 08/11/21 17:52 18:23 02:51 WBC RBC Hgb Hct RDW Lymph % (Auto) Lymph # (Auto) [facility] # (Auto) Seg Neutrophils % Seg Neuts % (Manual) Lymphocytes % (Manual) Nucleated RBC % Seg Neutrophils # Seg Neutrophils # Man Lymphocytes # (Manual) Monocytes # (Manual) D-Dimer ABG pH POC ABG pCO2 POC ABG pO2 ABG Hemoglobin 8.7 L ABG Oxyhemoglobin ABG Sodium ABG Potassium ABG Chloride 111.0 H ABG Glucose Carboxyhemoglobin 0.2 L Sodium Potassium Chloride Carbon Dioxide BUN Creatinine Glucose POC Glucose 55 L 133 H Lactic Acid Calcium Magnesium AST ALT Total Protein Albumin Arterial Blood Glucose Arterial Blood Ionized Calcium 4.5 L Urine WBC (Auto) Urine Creatinine 08/11/21 08/11/21 08/11/21 04:30 11:36 17:11 WBC RBC Hgb Hct RDW Lymph % (Auto) Lymph # (Auto) [facility] # (Auto) Seg Neutrophils % Seg Neuts % (Manual) Lymphocytes % (Manual) Nucleated RBC % Seg Neutrophils # Seg Neutrophils # Man Lymphocytes # (Manual) Monocytes # (Manual) D-Dimer ABG pH POC ABG pCO2 POC ABG pO2 ABG Hemoglobin ABG Oxyhemoglobin ABG Sodium ABG Potassium ABG Chloride ABG Glucose Carboxyhemoglobin Sodium Potassium Chloride 110.0 H Carbon Dioxide BUN 59 H Creatinine Glucose POC Glucose 116 H 115 H Lactic Acid Calcium 8.3 L Magnesium AST ALT 64 H Total Protein 5.5 L Albumin 2.6 L Arterial Blood Glucose Arterial Blood Ionized Calcium Urine WBC (Auto) Urine Creatinine 08/11/21 08/11/21 08/12/21 23:18 Unknown 05:05 WBC 12.2 H RBC 2.81 L Hgb 8.4 L Hct 25.4 L RDW 17.0 H Lymph % (Auto) Lymph # (Auto) [facility] # (Auto) Seg Neutrophils % Seg Neuts % (Manual) Lymphocytes % (Manual) Nucleated RBC % Seg Neutrophils # Seg Neutrophils # Man Lymphocytes # (Manual) Monocytes # (Manual) D-Dimer ABG pH POC ABG pCO2 POC ABG pO2 ABG Hemoglobin ABG Oxyhemoglobin ABG Sodium ABG Potassium ABG Chloride ABG Glucose Carboxyhemoglobin Sodium Potassium Chloride Carbon Dioxide BUN Creatinine Glucose POC Glucose 126 H 131 H Lactic Acid Calcium Magnesium AST ALT Total Protein Albumin Arterial Blood Glucose Arterial Blood Ionized Calcium Urine WBC (Auto) Urine Creatinine 08/12/21 08/12/21 08/12/21 12:14 17:19 21:41 WBC 16.5 H RBC 3.04 L Hgb 8.9 L Hct 27.3 L RDW 17.0 H Lymph % (Auto) 9.0 L Lymph # (Auto) [facility] # (Auto) 1.1 H Seg Neutrophils % 83.7 H Seg Neuts % (Manual) Lymphocytes % (Manual) Nucleated RBC % Seg Neutrophils # 13.8 H Seg Neutrophils # Man Lymphocytes # (Manual) Monocytes # (Manual) D-Dimer ABG pH POC ABG pCO2 POC ABG pO2 ABG Hemoglobin ABG Oxyhemoglobin ABG Sodium ABG Potassium ABG Chloride ABG Glucose Carboxyhemoglobin Sodium Potassium Chloride Carbon Dioxide BUN Creatinine Glucose POC Glucose 123 H 129 H Lactic Acid Calcium Magnesium AST ALT Total Protein Albumin Arterial Blood Glucose Arterial Blood Ionized Calcium Urine WBC (Auto) Urine Creatinine 08/12/21 08/12/21 08/13/21 21:41 23:26 05:24 WBC RBC Hgb Hct RDW Lymph % (Auto) Lymph # (Auto) [facility] # (Auto) Seg Neutrophils % Seg Neuts % (Manual) Lymphocytes % (Manual) Nucleated RBC % Seg Neutrophils # Seg Neutrophils # Man Lymphocytes # (Manual) Monocytes # (Manual) D-Dimer ABG pH POC ABG pCO2 POC ABG pO2 ABG Hemoglobin ABG Oxyhemoglobin ABG Sodium ABG Potassium ABG Chloride ABG Glucose Carboxyhemoglobin Sodium 147 H Potassium Chloride 110.7 H Carbon Dioxide BUN 48 H Creatinine Glucose 147 H POC Glucose 133 H 109 H Lactic Acid Calcium Magnesium AST ALT Total Protein Albumin Arterial Blood Glucose Arterial Blood Ionized Calcium Urine WBC (Auto) Urine Creatinine 08/13/21 05:43 WBC RBC Hgb Hct RDW Lymph % (Auto) Lymph # (Auto) [facility] # (Auto) Seg Neutrophils % Seg Neuts % (Manual) Lymphocytes % (Manual) Nucleated RBC % Seg Neutrophils # Seg Neutrophils # Man Lymphocytes # (Manual) Monocytes # (Manual) D-Dimer ABG pH POC ABG pCO2 POC ABG pO2 76.8 L ABG Hemoglobin 8.6 L ABG Oxyhemoglobin ABG Sodium ABG Potassium ABG Chloride 112.0 H ABG Glucose 126 H Carboxyhemoglobin 0.4 L Sodium Potassium Chloride Carbon Dioxide BUN Creatinine Glucose POC Glucose Lactic Acid Calcium Magnesium AST ALT Total Protein Albumin Arterial Blood Glucose 126 H Arterial Blood Ionized Calcium 4.4 L Urine WBC (Auto) Urine Creatinine Chest x-ray: image reviewed Allied health notes reviewed: RT
[2021-08-13] MEDS: SENNOSIDES/DOCUSATE SODIUM 8.6/50 MG TAB FEEDTUBE SCH ×2 (14:37→20:21)
[2021-08-14] MEDS: INSULIN LISPRO 100 UNIT/ML SUB-Q SCH ×4 (00:32→18:00)
[2021-08-14] MEDS: FREE WATER PO SCH ×6 (01:16→22:17)
[2021-08-14] MEDS: MIDAZOLAM 100 MG in SODIUM CHLORIDE 0.9% 80 ML IV SCH (03:46)
[2021-08-14] MEDS: fentaNYL DRIP Premix 2,000 MCG/100 ML BAG IV SCH ×3 (03:49→23:52)
[2021-08-14] MEDS: SENNOSIDES/DOCUSATE SODIUM 8.6/50 MG TAB FEEDTUBE SCH ×3 (04:08→20:49)
[2021-08-14 05:33] LABS: Hemoglobin 8.1 gm/dl (10.1-14.3); Mean Corpuscular HGB Conc 34 % (30-34); Mean Corpuscular Volume 91 fl (79-97); Platelet Count 237 K/mm3 (140-440); Red Blood Count 2.65 M/mm3 (3.65-5.03); Red Cell Distribution Width 17.1 % (13.2-15.2)
[2021-08-14 05:54] LABS: Alanine Aminotransferase 53 units/L (7-56); Albumin 2.6 g/dL (3.9-5); BUN/Creatinine Ratio 48; Blood Urea Nitrogen 38 mg/dL (7-17); Calcium 8.4 mg/dL (8.4-10.2); Hemolysis Index 0
[2021-08-14] MEDS: ARFORMOTEROL 15 MCG/2 ML NEBU IH SCH ×2 (07:28→20:32)
[2021-08-14] MEDS: IPRATROPIUM/ALBUTEROL SULFATE 3 ML AMPUL.NEB IH SCH ×3 (07:28→20:32)
[2021-08-14] MEDS: BUDESONIDE 0.5 MG/2 ML NEBU IH SCH ×2 (07:28→20:32)
[2021-08-14] MEDS: POLYETHYLENE GLYCOL 3350 17 GM POWDER PO SCH (10:18)
[2021-08-14] MEDS: FAMOTIDINE 20 MG/2 ML INJ IV SCH ×2 (10:18→21:01)
[2021-08-14] MEDS: ENOXAPARIN 100 MG/1 ML INJ SUB-Q SCH ×2 (10:19→21:01)
[2021-08-14] MEDS: QUEtiapine 200 MG TAB PO SCH ×2 (10:20→21:02)
--- NOTE | 2021-08-14 11:34 | Progress Note ---
Assessment and Plan Assessment and plan: Assessment and Plan Assessment and plan: This is a 66-year-old female with HTN, DM, HLD and COPD admitted for acute hypoxic respiratory failure, COPD exacerbation, pneumonia and left lower leg DVT Neuro: Acute metabolic encephalopathy; agitatin -Sedated with Versed and fentanyl, Seroquel -daily SAT limited by agitation and hypoxia -RASS goal -2 to -3 -Bilateral restraints for safety -update family daily on plan of care Cardio: h/o HTN, s/p cardiac arrest, h/o HLD -Echocardiogram completed-> EF 50 to 55% with mild diastolic dysfunction -Blood pressure monitor per protocol -MAP goal > 65 -Patient had cardiac arrest on 07/29 and was intubated -Antihypertensives prn ST Respiratory: Acute hypoxic respiratory failure, COPD exacerbation; lung ca with mediastinal mass -CCM consulted, appreciate recommendations - S/P TRACH AND PEG -Noted bleeding around trach today 08/12/2021 patient going for emergent surgery.-Control of hemorrhage from tracheostomy site, H/H stable -VAP bundle -Daily SBT and SAT trials as tolerated -Intubated with 7.50 ETT at 22 at the lips on 07/29 see RT flow sheet for vent settings -Daily ABG and CXR -Continue SPO2 monitoring -FOR TRACH AND PEG WED AM; NPO PM; HOLD LOVENOX AT MN GI: constipation -TF-- NPO P MN -nutrition following -BR -PPI : Acute kidney injury likely 2/2 vasomotor nephropathy/pre-renal; HYPERNA -Nephrology consulted, appreciate recommendations -08/01 FeNA calculated at 0.13-> indicating prerenal -trend Cr -Strict intake and output -Avoid nephrotoxic medications -Renally dose medications -Elizabeth in place; Elizabeth changed on 08/05 -follow and replace electrolytes as needed -FWF FOR NA ID: Acute sepsis, pneumonia; febrile -ABX therapy: Cefepime -07/27 BC x2 with no growth after 4 days -07/29 tracheal aspirate with no growth -follow culture data -Monitor CBCs and fever curve -febrile to 100 -ID following Heme: Left lower leg DVT, leukocytosis; lung ca with med mass -cont Lovenox- HOLD AT MN -SCDs to bilateral lower extremities while in bed -Trend CBC -evidenced on BLE US -heme onc following Oncology: h/o breast cancer, Lung mass, breast carcinoma with metastasis -CXR shows suspicious nodular density at the left base -08/02 bronchoscopy -Heme/oncology consulted, appreciate recommendations -08/02 bronchoscopy completed; washings and brush sent for cytology, cell count and AFB-> preliminary results obtained, see report -08/02: AFB from bronc negative -08/02 PTH surgical report: [facility], [place], HER-2 negative, TTF1 and HMB 4 5 are not expressed -CEA low -Heme onc following ? transfer to higher level of care oncologist Dr. Wade at [place] at [phone] Endo: h/o DM; stress hyperglycemia -SSI -Avoid hypoglycemia -Lantus, titrate as needed The high probability of a clinically significant, sudden or life threatening deterioration of the [multi] system(s) required my full and direct attention, intervention and personal management. The aggregate critical care time was [60] minutes. This time is in addition to time spent performing reported procedures but includes the following: [x] Data Review and interpretation [x] Patient assessment and monitoring of vital signs [x] Documentation [x] Medication orders and management Disposition Plan: icu Total Time Spent with Patient (Minutes): 45 very guarded prognosis. History Interval history: This is a 66-year-old female with HTN, DM, HLD and COPD who presented to emergency department on 07/28 with complaints of difficulty in breathing ongoing for the past few days via EMS. En route she was given Solu-Medrol IV magnesium and albuterol nebulizing treatment. Upon arrival to emergency department patient had multiple rounds of embolizing treatments and was subsequently placed on BiPAP with some improvement. Patient has been fully vaccinated. Work-up in the emergency department revealed CXR suspicious for right-sided pneumonia, nodular density in the left base and increased interstitial markings which may be chronic. Patient was admitted to the hospitalist service with electrolyte imbalances, leukocytosis, COPD exacerbation, hypoxia and possible pneumonia. 07/29/2021. Patient seen this morning with Shabbir-Chavira respiration/agonal breathing. RENEE ABREU was called and patient was intubated and placed on mechanical ventilation. Patient transferred to ICU. Critical care/pulmonary consulted. Patient currently with AC mode rate of 30, FiO2 100%, PEEP of 12. Continue IV antibiotics. Consult ID and oncology for further evaluation. Patient will likely need bronchoscopy for further evaluation of the lung mass. Doppler ultrasound revealedLLE DVT. Start anticoagulation. 07/30/2021. Patient appears much improved and more responsive this morning. Patient currently with AC mode ventilation rate of 24, tidal volume 450, PEEP of 8 and FiO2 35%. Spontaneous breathing trials with possible extubation today per pulmonary. Bronchoscopy per pulmonary. Continue Lovenox twice daily for DVT. Continue IV antibiotics for sepsis/pneumonia. ID consultation pending. Follow-up [facility], [place] 15-3, [place] 2729. 07/31/2021. Echocardiogram reveals left ventricular size and function are normal. EF 50 to 55% with mild diastolic dysfunction. Patient currently with CPAP/PSV trial 11/02. Anticipate extubation today per pulmonary. Bronchoscopy per pulmonary. Continue Lovenox twice daily for DVT. Continue IV antibiotics for sepsis/pneumonia. ID consultation pending. Follow-up [facility], [place] 15-3, [place] 2729. 08/01: ALIYAH 08/02: Patient had a bronchoscopy today. Cell count, cytology and AFB sent from samples. Patient remains sedated on fentanyl and Versed. Patient and daughter Rosana were updated. 08/03: [facility] follow-up on [facility] specimens and was informed patient specimens indicate cancer. Communicated to Dr. Abbott and he stated he will update family. 08/04: Patient remains sedated on fentanyl and Versed, patient has moments of agitation with any stimulation. CPAP trial unable to be completed today due to agitation. 08/05: Patient had low urine output overnight and Elizabeth catheter was changed this a.m. with 2 L of urine output received. Patient did have a increase in creatinine however this may have been obstructive process and nephrology is aware. Hematology/oncology spoke to family who wishes for everything to be done despite bronchial washings with cancer cells. [facility] contacted patient's o ncologist to help facilitate transfer. We attempted to hold sedation for CPAP trial however patient became extremely agitated and sedation was restarted. 08/06: Surgery consulted for possible trach. Leukocytosis and renal function slowly improving. No acute events reported overnight. 08/07: Creatinine continues to decrease, patient has slight hyper natremia and hyperchloremia. Patient remains on fentanyl and Versed with periods of agitation. Increasing free water flushes. 08-08 improving cr; febrile; family wants full care/full code- heme onc following 08-09 LOW GRADE FEVERS; FOR TRACH/PEG WED AM 08/10: Patient seen and examined, had Bronchoscopy and Trach and PEG today, follow report. Continue supportive care. 08/11: Patient remains on full vent support. Continue supportive care. 08/12: This morning patient noted with bleeding around trach surgery consulted going for emergent surgery. Labs ordered 08/13: Patient seen and examined, no further bleeding, had surgical intervention yesterday for trach site bleeding. No further bleeding this am. Patient otherwise remains on mechanical ventilation. Leukocytosis mildly worsened today this could be reactive has no fever will monitor mental status is still severely encephalopathic. 08/14/21 patient seen and examined. Lab and medication reviewed. No further bleeding from track site. Hemoglobin is 8.1. Hematocrit 24.2 and WBC 9.7. Continue current management and supportive care. Recheck CBC CMP in the morning History Interval history: Patient is seen and examined Lab and medication is reviewed Patient is still on vent. No bleeding . Hemoglobin is 8.1 hematocrit 24.0 Hospitalist Physical - Constitutional Vitals: Temp Pulse Resp BP Pulse Ox 99.9 F H 109 H 26 H 130/80 99 08/14/21 08:00 08/14/21 10:31 08/14/21 10:31 08/14/21 10:31 08/14/21 10:31 General appearance: Present: no acute distress, well-nourished, other - EENT Eyes: Present: PERRL, EOM intact ENT: hearing intact, clear oral mucosa, dentition normal - Neck Neck: Present: supple, normal ROM - Respiratory Respiratory effort: normal Respiratory: bilateral: diminished - Cardiovascular Rhythm: regular Heart Sounds: Present: S1 & S2 - Extremities Extremities: no ischemia, pulses intact Peripheral Pulses: within normal limits - Abdominal General gastrointestinal: soft, non-tender, non-distended, normal bowel sounds - Integumentary Integumentary: Present: clear, warm, dry - Psychiatric Psychiatric: other (On vent) - Neurologic Neurologic: other (On vent) Results - Labs CBC & Chem 7: 08/14/21 04:00 08/14/21 04:00 Labs: Laboratory Last Values WBC 9.7 K/mm3 (4.5-11.0) 08/14/21 04:00 RBC 2.65 M/mm3 (3.65-5.03) L 08/14/21 04:00 Hgb 8.1 gm/dl (10.1-14.3) L 08/14/21 04:00 Hct 24.0 % (30.3-42.9) L 08/14/21 04:00 MCV 91 fl (79-97) 08/14/21 04:00 MCH 31 pg (28-32) 08/14/21 04:00 MCHC 34 % (30-34) 08/14/21 04:00 RDW 17.1 % (13.2-15.2) H 08/14/21 04:00 Plt Count 237 K/mm3 (140-440) 08/14/21 04:00 Lymph % (Auto) 9.0 % (13.4-35.0) L 08/12/21 21:41 [place] % (Auto) 6.7 % (0.0-7.3) 08/12/21 21:41 Eos % (Auto) 0.4 % (0.0-4.3) 08/12/21 21:41 Baso % (Auto) 0.2 % (0.0-1.8) 08/12/21 21:41 Lymph # (Auto) 1.5 K/mm3 (1.2-5.4) 08/12/21 21:41 [place] # (Auto) 1.1 K/mm3 (0.0-0.8) H 08/12/21 21:41 Eos # (Auto) 0.1 K/mm3 (0.0-0.4) 08/12/21 21:41 Baso # (Auto) 0.0 K/mm3 (0.0-0.1) 08/12/21 21:41 Add Manual Diff Complete 08/05/21 04:50 Total Counted 100 08/05/21 04:50 Seg Neutrophils % 83.7 % (40.0-70.0) H 08/12/21 21:41 Seg Neuts % (Manual) 75.0 % (40.0-70.0) H 08/05/21 04:50 Band Neutrophils % 8.0 % 08/05/21 04:50 Lymphocytes % (Manual) 2.0 % (13.4-35.0) L 08/05/21 04:50 Monocytes % (Manual) 5.0 % (0.0-7.3) 08/05/21 04:50 Eosinophils % (Manual) 1.0 % (0.0-4.3) 08/05/21 04:50 Metamyelocytes % 6.0 % 08/05/21 04:50 Myelocytes % 3.0 % 08/05/21 04:50 Nucleated RBC % Not Reportable 08/05/21 04:50 Seg Neutrophils # 13.8 K/mm3 (1.8-7.7) H 08/12/21 21:41 Seg Neutrophils # Man 14.3 K/mm3 (1.8-7.7) H 08/05/21 04:50 Band Neutrophils # 1.5 K/mm3 08/05/21 04:50 Lymphocytes # (Manual) 0.4 K/mm3 (1.2-5.4) L 08/05/21 04:50 Abs React Lymphs (Man) 0.0 K/mm3 08/05/21 04:50 Monocytes # (Manual) 1.0 K/mm3 (0.0-0.8) H 08/05/21 04:50 Eosinophils # (Manual) 0.2 K/mm3 (0.0-0.4) 08/05/21 04:50 Basophils # (Manual) 0.0 K/mm3 (0.0-0.1) 08/05/21 04:50 Metamyelocytes # 1.1 K/mm3 08/05/21 04:50 Myelocytes # 0.6 K/mm3 08/05/21 04:50 Promyelocytes # 0.0 K/mm3 08/05/21 04:50 Blast Cells # 0.0 K/mm3 08/05/21 04:50 WBC Morphology Not Reportable 08/05/21 04:50 Hypersegmented Neuts Not Reportable 08/05/21 04:50 Hyposegmented Neuts Not Reportable 08/05/21 04:50 Hypogranular Neuts Not Reportable 08/05/21 04:50 Smudge Cells Not Reportable 08/05/21 04:50 Toxic Granulation Not Reportable 08/05/21 04:50 Toxic Vacuolation Not Reportable 08/05/21 04:50 Dohle Bodies Not Reportable 08/05/21 04:50 Pelger-Huet Anomaly Not Reportable 08/05/21 04:50 Beryl Rods Not Reportable 08/05/21 04:50 Platelet Estimate Consistent w auto 08/05/21 04:50 Clumped Platelets Not Reportable 08/05/21 04:50 Plt Clumps, EDTA Not Reportable 08/05/21 04:50 Large Platelets Not Reportable 08/05/21 04:50 Giant Platelets Not Reportable 08/05/21 04:50 Platelet Satelliting Not Reportable 08/05/21 04:50 Plt Morphology Comment Not Reportable 08/05/21 04:50 RBC Morphology Not Reportable 08/05/21 04:50 Dimorphic RBCs Not Reportable 08/05/21 04:50 Polychromasia Not Reportable 08/05/21 04:50 Hypochromasia Not Reportable 08/05/21 04:50 Poikilocytosis Not Reportable 08/05/21 04:50 Anisocytosis Not Reportable 08/05/21 04:50 Microcytosis Not Reportable 08/05/21 04:50 Macrocytosis Not Reportable 08/05/21 04:50 Spherocytes Not Reportable 08/05/21 04:50 Pappenheimer Bodies Not Reportable 08/05/21 04:50 Sickle Cells Not Reportable 08/05/21 04:50 Target Cells Not Reportable 08/05/21 04:50 Tear Drop Cells Not Reportable 08/05/21 04:50 Ovalocytes Few 08/05/21 04:50 Helmet Cells Not Reportable 08/05/21 04:50 Paul-Wolford Bodies Not Reportable 08/05/21 04:50 [place] Rings Not Reportable 08/05/21 04:50 [place] Cells Not Reportable 08/05/21 04:50 Bite Cells Not Reportable 08/05/21 04:50 Crenated Cell Not Reportable 08/05/21 04:50 Elliptocytes Not Reportable 08/05/21 04:50 Acanthocytes (Spur) Not Reportable 08/05/21 04:50 Rouleaux Not Reportable 08/05/21 04:50 Hemoglobin C Crystals Not Reportable 08/05/21 04:50 Schistocytes Not Reportable 08/05/21 04:50 Malaria parasites Not Reportable 08/05/21 04:50 Gurmeet Bodies Not Reportable 08/05/21 04:50 Hem Pathologist Commnt No 08/05/21 04:50 PT 14.5 Sec. (12.2-14.9) 08/12/21 21:41 INR 1.08 (0.87-1.13) 08/12/21 21:41 APTT 29.9 Sec. (24.2-36.6) 08/10/21 05:20 D-Dimer 852.47 ng/mlDDU (0-234) H 07/29/21 07:17 ABG pH 7.399 (7.320-7.450) 08/13/21 05:43 POC ABG pCO2 44.3 mmHg (32.0-48.0) 08/13/21 05:43 POC ABG pO2 76.8 mmHg (83-108) L 08/13/21 05:43 POC ABG HCO3 26.8 08/13/21 05:43 ABG O2 Saturation 94.7 (0-100) 08/13/21 05:43 POC ABG Base Excess 1.7 08/13/21 05:43 ABG Hemoglobin 8.6 (12.0-17.5) L 08/13/21 05:43 ABG Oxyhemoglobin 94.0 (94-98) 08/13/21 05:43 ABG Methemoglobin 0.3 (0.0-1.5) 08/13/21 05:43 ABG Sodium 142.6 mmol/L (136.0-145.0) 08/13/21 05:43 ABG Potassium 3.9 mmol/L (3.40-4.50) 08/13/21 05:43 ABG Chloride 112.0 mmol/L (98-107) H 08/13/21 05:43 ABG Glucose 126 mg/dL (65-95) H 08/13/21 05:43 Carboxyhemoglobin 0.4 (0.5-1.5) L 08/13/21 05:43 FiO2 % 30.0 08/13/21 05:43 Sodium 146 mmol/L (137-145) H 08/14/21 04:00 Potassium 3.9 mmol/L (3.6-5.0) 08/14/21 04:00 Chloride 108.7 mmol/L (98-107) H 08/14/21 04:00 Carbon Dioxide 31 mmol/L (22-30) H 08/14/21 04:00 Anion Gap 10 mmol/L 08/14/21 04:00 BUN 38 mg/dL (7-17) H 08/14/21 04:00 Creatinine 0.8 mg/dL (0.6-1.2) 08/14/21 04:00 Estimated GFR > 60 ml/min 08/14/21 04:00 BUN/Creatinine Ratio 48 % 08/14/21 04:00 Glucose 115 mg/dL (65-100) H 08/14/21 04:00 POC Glucose 126 mg/dL (70-105) H 08/14/21 05:24 Lactic Acid 2.10 mmol/L (0.7-2.0) H* 08/03/21 15:11 Calcium 8.4 mg/dL (8.4-10.2) 08/14/21 04:00 Phosphorus 4.10 mg/dL (2.5-4.5) 08/08/21 06:00 Magnesium 1.70 mg/dL (1.7-2.3) 08/12/21 21:41 Total Bilirubin 0.40 mg/dL (0.1-1.2) 08/14/21 04:00 AST 29 units/L (5-40) 08/14/21 04:00 ALT 53 units/L (7-56) 08/14/21 04:00 Alkaline Phosphatase 94 units/L (35-129) 08/14/21 04:00 Total Protein 5.8 g/dL (6.3-8.2) L 08/14/21 04:00 Albumin 2.6 g/dL (3.9-5) L 08/14/21 04:00 Albumin/Globulin Ratio 0.8 % 08/14/21 04:00 Carcinoembryonic Ag <0.5 ng/mL (0.0-2.4) 07/31/21 04:45 Arterial Blood Glucose 126 mg/dL (65-95) H 08/13/21 05:43 Arterial Blood Ionized Calcium 4.4 mg/dL (4.6-5.3) L 08/13/21 05:43 Urine Color Yellow (Yellow) 08/08/21 20:27 Urine Turbidity Slightly-cloudy (Clear) 08/08/21 20:27 Urine pH 5.0 (5.0-7.0) 08/08/21 20:27 Ur Specific [place] 1.014 (1.003-1.030) 08/08/21 20:27 Urine Protein 30 mg/dl mg/dL (Negative) 08/08/21 20:27 Urine Glucose (UA) Neg mg/dL (Negative) 08/08/21 20: Urine Ketones Neg mg/dL (Negative) 08/08/21 20:27 Urine Blood Mod (Negative) 08/08/21 20: Urine Nitrite Neg (Negative) 08/08/21 20: Urine Bilirubin Neg (Negative) 08/08/21 20:27 Urine Urobilinogen < 2.0 mg/dL (<2.0) 08/08/21 20:27 Ur Leukocyte Esterase Neg (Negative) 08/08/21 20: Urine WBC (Auto) 6.0 /HPF (0.0-6.0) 08/08/21 20: Urine RBC (Auto) 6.0 /HPF (0.0-6.0) 08/08/21 20: U Epithel Cells (Auto) < 1.0 /HPF (0-13.0) 08/08/21 20: Urine Bacteria (Auto) 1+ /HPF (Negative) 08/08/21 20: Urine Mucus Few /HPF 08/08/21 20: Urine Yeast (Budding) 1+ /HPF 08/08/21 20: Urine Creatinine 125.6 mg/dL (0.1-20.0) H 08/01/21 Unknown Urine Sodium 12 mmol/L 08/01/21 Unknown Double Strand DNA Ab 1 IU/mL (<=4) 08/02/21 15:40 Coronavirus (PCR) Negative (Negative) 07/29/21 07:58 Hepatitis A IgM Ab Non-reactive (NonReactive) 08/02/21 15:40 Hep Bs Antigen Nonreactive (Negative) 08/02/21 15:40 Hep B Core IgM Ab Non-reactive (NonReactive) 08/02/21 15:40 Hepatitis C Antibody Non-reactive (NonReactive) 08/02/21 15:40 AFB Identification Negative 08/02/21 14:30 Microbiology: Microbiology 08/08/21 16:39 Peripheral/Venous Blood Culture - Final NO GROWTH AFTER 5 DAYS 08/08/21 16:39 Peripheral/Venous Blood Culture - Final NO GROWTH AFTER 5 DAYS Elizabeth/IV: Voiding Method Indwelling Catheter Active Medications - Current Medications Current Medications: Generic Name Dose Route Start Last Admin Trade Name Freq PRN Reason Stop Dose Admin Acetaminophen 650 mg 07/28/21 02:11 Acetaminophen 325 Mg Tab PO Q6H PRN Pain MILD(1-3)/Fever >100.5/GARCIA Albuterol/Ipratropium 1 ampul 07/28/21 14:00 08/14/21 07:28 Ipratropium/Albuterol Sulfate 3 Ml Ampul.Neb IH 1 ampul TID DEMIAN Administration Lipase/Protease/Amylase 1 each 07/29/21 13:01 Lipase 10,500/Protease 25,000/Amylase 43,750 (Units) Dr Campoverde FEEDTUBE PRN PRN For Clogged Feeding Tube Arformoterol Tartrate 15 mcg 07/28/21 20:00 08/14/21 07:28 Arformoterol 15 Mcg/2 Ml Nebu IH 15 mcg Q12HRT DEMIAN Administration Bisacodyl 10 mg 08/07/21 09:50 Bisacodyl 10 Mg Rect Supp [place] QDAY PRN Constip unreliev by MOM/or NPO Budesonide 0.5 mg 07/28/21 20:00 08/14/21 07:28 Budesonide 0.5 Mg/2 Ml Nebu IH 0.5 mg Q12HRT DEMIAN Administration Dextrose 50 ml 07/28/21 02:11 08/10/21 18:05 Dextrose 50% In Water (25gm) 50 Ml Syringe IV 20 ml Q30MIN PRN Administration Hypoglycemia Protocol Enoxaparin Sodium 100 mg 08/11/21 10:00 08/14/21 10:19 Enoxaparin 100 Mg/1 Ml Inj SUB-Q 100 mg Q12HR DEMIAN Administration Protocol Famotidine 10 mg 08/02/21 10:00 08/14/21 10:18 Famotidine 20 Mg/2 Ml Inj IV 10 mg BID DEMIAN Administration Fentanyl 50 mcg 07/29/21 10:42 08/04/21 09:05 Fentanyl 100 Mcg/2 Ml Inj IV 50 mcg Q10MIN PRN Administration ANALGESIA Hydralazine HCl 10 mg 07/30/21 14:52 08/03/21 17:31 Hydralazine 20 Mg/1 Ml Inj IV 10 mg Q6H PRN Administration SBP > 165 Hydrophilic Ointment 1 applic 07/29/21 10:42 Lip Therapy Vaseline TP Q2HR PRN Dry Lips Fentanyl Citrate 2,000 mcg in 100 mls @ 5.35 mls/hr 07/29/21 11:00 08/14/21 03:49 Fentanyl Drip Premix IV 2 mcg/kg/hr TITR DEMIAN 10.7 mls/hr Administration Protocol 1 MCG/KG/HR Midazolam HCl 100 mg/ Sodium 100 mls @ 2 mls/hr 07/29/21 11:00 08/14/21 10:17 Chloride IV 2 mg/hr TITR DEMIAN 2 mls/hr Titration Protocol 2 MG/HR Norepinephrine 4 mg in 250 mls @ 7.5 mls/hr 07/29/21 21:00 Levophed Drip 4 Mg/Ns 250 Ml IV TITR DEMIAN Protocol 2 MCG/MIN Insulin Human Lispro 0 unit 07/29/21 12:00 08/14/21 05:47 Insulin Lispro 100 Unit/Ml SUB-Q Not Given Q6HR DEMIAN Protocol Magnesium Hydroxide 30 ml 07/28/21 02:11 Magnesium Hydroxide (Mom) Oral Liqd Udc PO Q4H PRN Constipation Midazolam HCl 2 mg 07/29/21 10:42 08/10/21 20:58 Midazolam 2 Mg/2 Ml Inj IV 2 mg Q10MIN PRN Administration Sedation Multi-Ingred Cream/Lotion/Oil/Oint 1 applic 07/29/21 10:42 Mineral Oil/Petrolatum, White Ophth Oint 3.5 Gm OU Q4HR PRN Dry Eye(s) Polyethylene Glycol 17 gm 08/11/21 16:00 08/14/21 10:18 Polyethylene Glycol 3350 17 Gm Powder PO 17 gm QDAY DEMIAN Administration Quetiapine Fumarate 200 mg 08/05/21 22:00 08/14/21 10:20 Quetiapine 200 Mg Tab PO 200 mg BID DEMIAN Administration Senna/Docusate Sodium 1 tab 08/11/21 13:00 08/14/21 04:08 Sennosides/Docusate Sodium 8.6/50 Mg Tab FEEDTUBE 1 tab Q8H DEMIAN Administration Simple Syrup 15 ml 07/29/21 13:01 Simple Syrup 15 Ml FEEDTUBE PRN PRN Hypoglycemia Simple Syrup 30 ml 07/29/21 13:01 Simple Syrup 15 Ml FEEDTUBE PRN PRN Hypoglycemia Sodium Bicarbonate 325 mg 07/29/21 13:01 Sodium Bicarbonate 325 Mg Tab FEEDTUBE PRN PRN For Clogged Feeding Tube Sodium Chloride 10 ml 07/28/21 10:00 08/14/21 10:20 Sodium Chloride 0.9% 10 Ml Flush Syringe IV 10 ml BID DEMIAN Administration Sodium Chloride 10 ml 07/28/21 02:05 Sodium Chloride 0.9% 10 Ml Flush Syringe IV PRN PRN LINE FLUSH Nutrition/Malnutrition Assess - Dietary Evaluation Nutrition/Malnutrition Findings: Nutrition Notes Start: 07/28/21 14:44 Freq: Status: Active Protocol: Document 08/11/21 11:28 (Rec: 08/11/21 11:31 [id number]) Nutrition Notes Initial or Follow up Reassessment Current Diagnosis COPD,Diabetes,Hypertension, Respiratory Failure Other Pertinent Diagnosis pneu Current Diet Vital AF at 50 ml/hr Labs/Tests BUN 59 Pertinent Medications Reviewed Height 5 ft Weight 107 kg [place] Body Weight (kg) 45.45 BMI 46.0 Weight Status Morbidly Obese Subjective/Other Information Pt got trach and PEG yesterday . TF resumed at goal and no signs of intolerance noted. RN reports pt without BM and will speak with MD. Percent of energy/protein needs met: 96%/67% Burn Absent Trauma Absent GI Symptoms Constipation,Last BM Current % PO Negligible Minimum of two criteria No #1 Nutrition Diagnosis Inadequate oral intake Diagnosis Progress(for reassessment Continues documentation) Is patient on ventilator? Yes Is Patient Ambulatory and/or Out of Bed No REE-([facility]-confined to bed) 1842.852 Kcal/Kg value to use for calculation 14 Approximate Energy Requirements Using 1498 kcal/Kg Calculation Used for Recommendations Kcal/kg Additional Notes Protein: (up to 2.5g/kg IBW) up to 134g Fluid: 1 ml/kcal or per MD Nutrition Intervention Change Diet Order: continue Nutrition Support: Vital AF 1.2 at 50 ml/hr For hypernatermia, flush 250 ml ml q4h or per MD. Once resolved, flush 100 ml q4h. Kcal 1,440 Protein (gm) 90 Fluid (mL) 973 Goal #1 Meet at least 75% of protein and energy needs via TF Anticipated Discharge Needs: Unable to determine at this time Follow-Up By: 08/16/21 Additional Comments F/u: stable TF, BM - Malnutrition Assessment Minimum of two criteria: Yes - Attestation Statement I have reviewed and agreed w/ Malnutrition eval & tx plan: Yes
--- NOTE | 2021-08-14 14:16 | Progress Note ---
Assessment and Plan Acute hypoxemic respiratory failure s/p tracheostomy s/p PEG Lung Mass -metastatic breast disease History of right breast cancer Leukocytosis DM II Hypertension Hyperlipidemia Tobacco use disorder Hypernatremia Get CXR to re-evalute pulmonary parenchyma. Continue free water flushes for hypernatremia and continue to monitor response Monitor QTc while she is on Seroquel Bowel regime for constipation Continue, daily SAT. -Trach care, airway clearance, secretion management -Daily SAT and SBT as tolerated and per protocol - continue to titrate supplemental oxygen to keep SpO2 88-90% - VAP bundle addressed, aspiration precautions HOB >30 - continue lung protective strategies - continue bronchodilators (GLADIS & LABA) with pulmonary hygiene per RT - continue accuchecks with glycemic control per SSI (While critically ill target blood glucose of 140-180 mg/dL; avoid hypoglycemia) - sedation prn for target RASS 0 to -1 - avoid nephrotoxins, renally dose all medications - continue to avoid benzodiazepines, reduce the possibility of delirium - prn analgesia per CPOT score - Maintenance of sleep-wake cycle, avoid delirium - enteric nutritional support titrate to goal rate - VTE prophylaxis- Enoxaparin, can resume in the morning -Stress ulcer prophylaxis-Famotidine - PT/OT/ROM exercises - continue mobility, off loading and frequent turning per facility protocol for pressure ulcer prevention - Monitor hemodynamics closely - continue other care per attending / other consultants COVID SPECIFIC INTERVENTIONS -Negative Discharge planning, LTACH for ongoing weaning trials CONDITION: CRITICAL PROGNOSIS: GUARDED CODE STATUS: FULL CODE The high probability of a clinically significant, sudden or life-threatening deterioration of the [respiratory, cardiovascular, oncological & neurologic] system(s) required my full and direct attention, intervention and personal management. The aggregate critical care time was [33] minutes without overlap. Time includes spent on; [x] Data Review and interpretation [x] Patient assessment and monitoring of vital signs [x] Documentation [x] Medication orders and management Subjective Date of service: 08/14/21 Principal diagnosis: Ac hypoxemic resp failure ; AE-COPD; H/O CA Breast; DM II; HTN Interval history: Patient is seen today for: Acute hypoxemic respiratory failure; AE-COPD; Possible hypercapnia; H/O CA Breast; DM II; HTN Seen and examined at bedside; 24hour events reviewed; nursing and respiratory care staff consulted; no adverse overnight events reported to me; resting in bed; remains on MVS; no further tracheal bleeding, Remains on Fentanyl infusion and Midazolam. On going agitation Trach to MVS; ACVC 16/450/+6/30% Objective Vital Signs - 12hr 08/14/21 08/14/21 08/14/21 02:31 02:45 03:00 Temperature Pulse Rate 98 H 99 H 97 H Pulse Rate [ Anterior Bilateral] Pulse Rate [ From Monitor] Respiratory 22 25 H 23 Rate Respiratory Rate [Anterior Bilateral] Blood Pressure 107/62 107/62 92/53 O2 Sat by Pulse 99 99 93 Oximetry 08/14/21 08/14/21 08/14/21 03:15 03:31 03:45 Temperature Pulse Rate 96 H 107 H 95 H Pulse Rate [ Anterior Bilateral] Pulse Rate [ From Monitor] Respiratory 16 14 23 Rate Respiratory Rate [Anterior Bilateral] Blood Pressure 92/53 92/53 92/53 O2 Sat by Pulse 99 99 100 Oximetry 08/14/21 08/14/21 08/14/21 03:47 04:00 04:01 Temperature 98.7 F Pulse Rate 95 H 101 H 106 H Pulse Rate [ Anterior Bilateral] Pulse Rate [ 101 H From Monitor] Respiratory 24 27 H Rate Respiratory Rate [Anterior Bilateral] Blood Pressure 92/53 163/77 O2 Sat by Pulse 99 99 98 Oximetry 08/14/21 08/14/21 08/14/21 04:15 04:31 04:45 Temperature Pulse Rate 114 H 110 H 109 H Pulse Rate [ Anterior Bilateral] Pulse Rate [ From Monitor] Respiratory 21 26 H 24 Rate Respiratory Rate [Anterior Bilateral] Blood Pressure 163/77 163/77 163/77 O2 Sat by Pulse 99 100 100 Oximetry 08/14/21 08/14/21 08/14/21 05:01 05:15 05:31 Temperature Pulse Rate 102 H 102 H 108 H Pulse Rate [ Anterior Bilateral] Pulse Rate [ From Monitor] Respiratory 22 21 16 Rate Respiratory Rate [Anterior Bilateral] Blood Pressure 112/64 112/64 112/64 O2 Sat by Pulse 98 100 100 Oximetry 08/14/21 08/14/21 08/14/21 05:45 06:01 06:15 Temperature Pulse Rate 110 H 104 H 100 H Pulse Rate [ Anterior Bilateral] Pulse Rate [ From Monitor] Respiratory 18 24 24 Rate Respiratory Rate [Anterior Bilateral] Blood Pressure 112/64 112/64 136/71 O2 Sat by Pulse 99 98 100 Oximetry 08/14/21 08/14/21 08/14/21 06:31 06:45 07:01 Temperature Pulse Rate 98 H 96 H 95 H Pulse Rate [ Anterior Bilateral] Pulse Rate [ From Monitor] Respiratory 16 16 16 Rate Respiratory Rate [Anterior Bilateral] Blood Pressure 136/71 136/71 99/61 O2 Sat by Pulse 100 100 97 Oximetry 08/14/21 08/14/21 08/14/21 07:09 07:15 07:28 Temperature 99.9 F H Pulse Rate 93 H 93 H Pulse Rate [ 92 H Anterior Bilateral] Pulse Rate [ From Monitor] Respiratory 16 Rate Respiratory 16 Rate [Anterior Bilateral] Blood Pressure 136/71 99/61 O2 Sat by Pulse 100 100 Oximetry 08/14/21 08/14/21 08/14/21 07:31 07:45 08:00 Temperature 99.9 F H Pulse Rate 91 H 92 H Pulse Rate [ Anterior Bilateral] Pulse Rate [ From Monitor] Respiratory 16 16 Rate Respiratory Rate [Anterior Bilateral] Blood Pressure 136/71 99/61 O2 Sat by Pulse 100 100 Oximetry 08/14/21 08/14/21 08/14/21 08:01 08:15 08:31 Temperature Pulse Rate 92 H 98 H 102 H Pulse Rate [ Anterior Bilateral] Pulse Rate [ From Monitor] Respiratory 16 9 L 16 Rate Respiratory Rate [Anterior Bilateral] Blood Pressure 99/61 131/66 131/66 O2 Sat by Pulse 100 99 100 Oximetry 08/14/21 08/14/21 08/14/21 08:45 09:01 09:15 Temperature Pulse Rate 103 H 97 H 97 H Pulse Rate [ Anterior Bilateral] Pulse Rate [ From Monitor] Respiratory 16 16 16 Rate Respiratory Rate [Anterior Bilateral] Blood Pressure 131/66 98/59 131/66 O2 Sat by Pulse 100 97 100 Oximetry 08/14/21 08/14/21 08/14/21 09:31 09:45 10:01 Temperature Pulse Rate 96 H 109 H 122 H Pulse Rate [ Anterior Bilateral] Pulse Rate [ From Monitor] Respiratory 16 17 32 H Rate Respiratory Rate [Anterior Bilateral] Blood Pressure 131/66 131/66 131/66 O2 Sat by Pulse 100 100 98 Oximetry 08/14/21 08/14/21 08/14/21 10:15 10:31 10:45 Temperature Pulse Rate 116 H 109 H 105 H Pulse Rate [ Anterior Bilateral] Pulse Rate [ From Monitor] Respiratory 31 H 26 H 18 Rate Respiratory Rate [Anterior Bilateral] Blood Pressure 131/66 130/80 130/80 O2 Sat by Pulse 99 99 99 Oximetry 08/14/21 08/14/21 08/14/21 11:01 11:15 11:31 Temperature Pulse Rate 102 H 105 H 110 H Pulse Rate [ Anterior Bilateral] Pulse Rate [ From Monitor] Respiratory 19 23 20 Rate Respiratory Rate [Anterior Bilateral] Blood Pressure 109/62 109/62 109/62 O2 Sat by Pulse 95 100 100 Oximetry 08/14/21 08/14/21 08/14/21 11:44 11:45 11:55 Temperature 99.5 F Pulse Rate 109 H Pulse Rate [ Anterior Bilateral] Pulse Rate [ From Monitor] Respiratory 17 Rate Respiratory Rate [Anterior Bilateral] Blood Pressure 109/62 111/66 O2 Sat by Pulse 100 100 Oximetry 08/14/21 08/14/21 08/14/21 12:00 12:15 12:31 Temperature Pulse Rate 109 H 106 H 108 H Pulse Rate [ Anterior Bilateral] Pulse Rate [ From Monitor] Respiratory 27 H 17 24 Rate Respiratory Rate [Anterior Bilateral] Blood Pressure 111/66 111/66 111/66 O2 Sat by Pulse 96 100 100 Oximetry 08/14/21 08/14/21 12:45 13:00 Temperature Pulse Rate 104 H 102 H Pulse Rate [ Anterior Bilateral] Pulse Rate [ From Monitor] Respiratory 22 14 Rate Respiratory Rate [Anterior Bilateral] Blood Pressure 111/66 109/59 O2 Sat by Pulse 100 96 Oximetry Constitutional: no acute distress (sedate), other (eldely obese female without increased respiratory effort at rest on MVS) Eyes: non-icteric ENT: oropharynx moist, other (trach Shiley #[id number], cuffed; no bleeding) Neck: supple, no lymphadenopathy, no JVD Effort: mildly labored Ascultation: Bilateral: diminished breath sounds, wheezes (central), rales, rhonchi, other (prolonged expiratory phase) Percussion: Bilateral: not dull Cardiovascular: regular rate and rhythm, other (S1,S2) Gastrointestinal: normoactive bowel sounds, soft, non-tender, non-distended, o ther (PEG) Integumentary: normal Extremities: no cyanosis, no edema, pulses normal, no ischemia or petechiae Neurologic: non-focal exam (moves all extremities), pupils equal and round Psychiatric: other (unable to assess) CBC and BMP: 08/18/21 05:10 08/18/21 05:10 ABG, PT/INR, D-dimer: ABG ABG pH 7.399 (7.320-7.450) 08/13/21 05:43 POC ABG pCO2 44.3 mmHg (32.0-48.0) 08/13/21 05:43 POC ABG pO2 76.8 mmHg (83-108) L 08/13/21 05:43 POC ABG HCO3 26.8 08/13/21 05:43 ABG O2 Saturation 94.7 (0-100) 08/13/21 05:43 PT/INR, D-dimer PT 14.5 Sec. (12.2-14.9) 08/12/21 21:41 INR 1.08 (0.87-1.13) 08/12/21 21:41 D-Dimer 852.47 ng/mlDDU (0-234) H 07/29/21 07:17 Abnormal lab findings: Abnormal Labs 07/27/21 07/27/21 07/27/21 22:57 22:57 22:57 WBC 20.3 H RBC Hgb Hct RDW Lymph % (Auto) Lymph # (Auto) [place] # (Auto) Seg Neutrophils % Seg Neuts % (Manual) 89.0 H Lymphocytes % (Manual) 9.0 L Nucleated RBC % Seg Neutrophils # Seg Neutrophils # Man 18.1 H Lymphocytes # (Manual) Monocytes # (Manual) D-Dimer ABG pH POC ABG pCO2 POC ABG pO2 ABG Hemoglobin ABG Oxyhemoglobin ABG Sodium ABG Potassium ABG Chloride ABG Glucose Carboxyhemoglobin Sodium Potassium 3.5 L Chloride 96.9 L Carbon Dioxide 20 L BUN 19 H Creatinine Glucose 204 H POC Glucose Lactic Acid 7.20 H* Calcium Magnesium AST 98 H ALT 90 H Total Protein Albumin Arterial Blood Glucose Arterial Blood Ionized Calcium Urine WBC (Auto) Urine Creatinine 07/28/21 07/28/21 07/28/21 01:31 07:49 10:00 WBC RBC Hgb Hct RDW Lymph % (Auto) Lymph # (Auto) [place] # (Auto) Seg Neutrophils % Seg Neuts % (Manual) Lymphocytes % (Manual) Nucleated RBC % Seg Neutrophils # Seg Neutrophils # Man Lymphocytes # (Manual) Monocytes # (Manual) D-Dimer ABG pH POC ABG pCO2 POC ABG pO2 ABG Hemoglobin ABG Oxyhemoglobin ABG Sodium ABG Potassium ABG Chloride ABG Glucose Carboxyhemoglobin Sodium Potassium Chloride Carbon Dioxide BUN Creatinine Glucose POC Glucose 194 H Lactic Acid 6.90 H* 6.70 H* Calcium Magnesium AST ALT Total Protein Albumin Arterial Blood Glucose Arterial Blood Ionized Calcium Urine WBC (Auto) Urine Creatinine 07/28/21 07/28/21 07/28/21 12:41 13:21 16:21 WBC RBC Hgb Hct RDW Lymph % (Auto) Lymph # (Auto) [place] # (Auto) Seg Neutrophils % Seg Neuts % (Manual) Lymphocytes % (Manual) Nucleated RBC % Seg Neutrophils # Seg Neutrophils # Man Lymphocytes # (Manual) Monocytes # (Manual) D-Dimer ABG pH POC ABG pCO2 POC ABG pO2 ABG Hemoglobin ABG Oxyhemoglobin ABG Sodium ABG Potassium ABG Chloride ABG Glucose Carboxyhemoglobin Sodium Potassium Chloride Carbon Dioxide BUN Creatinine Glucose POC Glucose 159 H 155 H Lactic Acid 6.10 H* Calcium Magnesium AST ALT Total Protein Albumin Arterial Blood Glucose Arterial Blood Ionized Calcium Urine WBC (Auto) Urine Creatinine 07/28/21 07/29/21 07/29/21 22:03 04:44 04:44 WBC 17.0 H RBC Hgb Hct RDW Lymph % (Auto) Lymph # (Auto) [place] # (Auto) Seg Neutrophils % Seg Neuts % (Manual) 82.0 H Lymphocytes % (Manual) 11.0 L Nucleated RBC % Seg Neutrophils # Seg Neutrophils # Man 13.9 H Lymphocytes # (Manual) Monocytes # (Manual) 1.0 H D-Dimer ABG pH POC ABG pCO2 POC ABG pO2 ABG Hemoglobin ABG Oxyhemoglobin ABG Sodium ABG Potassium ABG Chloride ABG Glucose Carboxyhemoglobin Sodium Potassium Chloride Carbon Dioxide BUN 23 H Creatinine Glucose 196 H POC Glucose 187 H Lactic Acid Calcium Magnesium AST ALT Total Protein Albumin Arterial Blood Glucose Arterial Blood Ionized Calcium Urine WBC (Auto) Urine Creatinine 07/29/21 07/29/21 07/29/21 06:56 07:17 07:17 WBC 26.1 H RBC Hgb Hct 43.3 H RDW 16.0 H Lymph % (Auto) Lymph # (Auto) [place] # (Auto) Seg Neutrophils % Seg Neuts % (Manual) 80.0 H Lymphocytes % (Manual) Nucleated RBC % Seg Neutrophils # Seg Neutrophils # Man 20.9 H Lymphocytes # (Manual) Monocytes # (Manual) D-Dimer ABG pH POC ABG pCO2 POC ABG pO2 ABG Hemoglobin ABG Oxyhemoglobin ABG Sodium ABG Potassium ABG Chloride ABG Glucose Carboxyhemoglobin Sodium Potassium Chloride Carbon Dioxide 20 L D BUN 23 H Creatinine Glucose 308 H POC Glucose 165 H Lactic Acid Calcium Magnesium AST ALT Total Protein Albumin Arterial Blood Glucose Arterial Blood Ionized Calcium Urine WBC (Auto) Urine Creatinine 07/29/21 07/29/21 07/29/21 07:17 09:16 10:30 WBC RBC Hgb Hct RDW Lymph % (Auto) Lymph # (Auto) [place] # (Auto) Seg Neutrophils % Seg Neuts % (Manual) Lymphocytes % (Manual) Nucleated RBC % Seg Neutrophils # Seg Neutrophils # Man Lymphocytes # (Manual) Monocytes # (Manual) D-Dimer 852.47 H ABG pH 7.236 L POC ABG pCO2 56.0 H POC ABG pO2 266.4 H ABG Hemoglobin ABG Oxyhemoglobin 99.1 H ABG Sodium 132.3 L ABG Potassium 4.9 H ABG Chloride ABG Glucose 202 H Carboxyhemoglobin 0.2 L Sodium Potassium Chloride Carbon Dioxide BUN Creatinine Glucose POC Glucose 271 H Lactic Acid Calcium Magnesium AST ALT Total Protein Albumin Arterial Blood Glucose 202 H Arterial Blood Ionized Calcium Urine WBC (Auto) Urine Creatinine 07/29/21 07/29/21 07/30/21 17:54 23:32 05:08 WBC RBC Hgb Hct RDW Lymph % (Auto) Lymph # (Auto) [place] # (Auto) Seg Neutrophils % Seg Neuts % (Manual) Lymphocytes % (Manual) Nucleated RBC % Seg Neutrophils # Seg Neutrophils # Man Lymphocytes # (Manual) Monocytes # (Manual) D-Dimer ABG pH POC ABG pCO2 POC ABG pO2 ABG Hemoglobin ABG Oxyhemoglobin ABG Sodium ABG Potassium ABG Chloride ABG Glucose Carboxyhemoglobin Sodium Potassium Chloride Carbon Dioxide BUN Creatinine Glucose POC Glucose 168 H 205 H 214 H Lactic Acid Calcium Magnesium AST ALT Total Protein Albumin Arterial Blood Glucose Arterial Blood Ionized Calcium Urine WBC (Auto) Urine Creatinine 07/30/21 07/30/21 07/30/21 06:01 11:32 17:34 WBC RBC Hgb Hct RDW Lymph % (Auto) Lymph # (Auto) [place] # (Auto) Seg Neutrophils % Seg Neuts % (Manual) Lymphocytes % (Manual) Nucleated RBC % Seg Neutrophils # Seg Neutrophils # Man Lymphocytes # (Manual) Monocytes # (Manual) D-Dimer ABG pH 7.480 H POC ABG pCO2 23.6 L POC ABG pO2 280.0 H ABG Hemoglobin ABG Oxyhemoglobin 99.3 H ABG Sodium 133.7 L ABG Potassium ABG Chloride ABG Glucose 232 H Carboxyhemoglobin 0 L Sodium Potassium Chloride Carbon Dioxide BUN Creatinine Glucose POC Glucose 207 H 239 H Lactic Acid Calcium Magnesium AST ALT Total Protein Albumin Arterial Blood Glucose 232 H Arterial Blood Ionized Calcium 4.4 L Urine WBC (Auto) Urine Creatinine 07/30/21 07/31/21 07/31/21 23:39 03:34 04:45 WBC 15.0 H RBC Hgb Hct RDW 15.5 H Lymph % (Auto) Lymph # (Auto) [place] # (Auto) Seg Neutrophils % Seg Neuts % (Manual) 89.0 H Lymphocytes % (Manual) 7.0 L Nucleated RBC % Seg Neutrophils # Seg Neutrophils # Man 13.4 H Lymphocytes # (Manual) 1.1 L Monocytes # (Manual) D-Dimer ABG pH 7.481 H POC ABG pCO2 31.8 L POC ABG pO2 ABG Hemoglobin ABG Oxyhemoglobin ABG Sodium 135.2 L ABG Potassium 3.3 L ABG Chloride ABG Glucose 188 H Carboxyhemoglobin 0.1 L Sodium Potassium Chloride Carbon Dioxide BUN Creatinine Glucose POC Glucose 176 H Lactic Acid Calcium Magnesium AST ALT Total Protein Albumin Arterial Blood Glucose 188 H Arterial Blood Ionized Calcium 4.4 L Urine WBC (Auto) Urine Creatinine 07/31/21 07/31/21 07/31/21 04:45 04:45 11:28 WBC RBC Hgb Hct RDW Lymph % (Auto) Lymph # (Auto) [place] # (Auto) Seg Neutrophils % Seg Neuts % (Manual) Lymphocytes % (Manual) Nucleated RBC % Seg Neutrophils # Seg Neutrophils # Man Lymphocytes # (Manual) Monocytes # (Manual) D-Dimer ABG pH POC ABG pCO2 POC ABG pO2 ABG Hemoglobin ABG Oxyhemoglobin ABG Sodium ABG Potassium ABG Chloride ABG Glucose Carboxyhemoglobin Sodium Potassium 3.4 L Chloride Carbon Dioxide BUN 61 H Creatinine 2.6 H D Glucose 176 H POC Glucose 195 H 245 H Lactic Acid Calcium Magnesium AST ALT Total Protein Albumin Arterial Blood Glucose Arterial Blood Ionized Calcium Urine WBC (Auto) Urine Creatinine 07/31/21 07/31/21 08/01/21 17:32 23:58 01:00 WBC RBC Hgb Hct RDW Lymph % (Auto) Lymph # (Auto) [place] # (Auto) Seg Neutrophils % Seg Neuts % (Manual) Lymphocytes % (Manual) Nucleated RBC % Seg Neutrophils # Seg Neutrophils # Man Lymphocytes # (Manual) Monocytes # (Manual) D-Dimer ABG pH POC ABG pCO2 POC ABG pO2 ABG Hemoglobin ABG Oxyhemoglobin ABG Sodium ABG Potassium ABG Chloride ABG Glucose 284 H Carboxyhemoglobin 0.3 L Sodium Potassium Chloride Carbon Dioxide BUN Creatinine Glucose POC Glucose 251 H 294 H Lactic Acid Calcium Magnesium AST ALT Total Protein Albumin Arterial Blood Glucose 284 H Arterial Blood Ionized Calcium Urine WBC (Auto) Urine Creatinine 08/01/21 08/01/21 08/01/21 05:50 05:50 06:11 WBC 16.2 H RBC Hgb Hct RDW 15.5 H Lymph % (Auto) Lymph # (Auto) [place] # (Auto) Seg Neutrophils % Seg Neuts % (Manual) 93.0 H Lymphocytes % (Manual) 2.0 L Nucleated RBC % 3.0 H Seg Neutrophils # Seg Neutrophils # Man 15.1 H Lymphocytes # (Manual) 0.3 L Monocytes # (Manual) D-Dimer ABG pH POC ABG pCO2 POC ABG pO2 ABG Hemoglobin ABG Oxyhemoglobin ABG Sodium ABG Potassium ABG Chloride ABG Glucose Carboxyhemoglobin Sodium Potassium Chloride Carbon Dioxide BUN 64 H Creatinine 1.9 H Glucose 277 H POC Glucose 256 H Lactic Acid Calcium Magnesium AST ALT Total Protein Albumin Arterial Blood Glucose Arterial Blood Ionized Calcium Urine WBC (Auto) Urine Creatinine 08/01/21 08/01/21 08/01/21 11:39 17:25 23:53 WBC RBC Hgb Hct RDW Lymph % (Auto) Lymph # (Auto) [place] # (Auto) Seg Neutrophils % Seg Neuts % (Manual) Lymphocytes % (Manual) Nucleated RBC % Seg Neutrophils # Seg Neutrophils # Man Lymphocytes # (Manual) Monocytes # (Manual) D-Dimer ABG pH POC ABG pCO2 POC ABG pO2 ABG Hemoglobin ABG Oxyhemoglobin ABG Sodium ABG Potassium ABG Chloride ABG Glucose Carboxyhemoglobin Sodium Potassium Chloride Carbon Dioxide BUN Creatinine Glucose POC Glucose 289 H 275 H 327 H Lactic Acid Calcium Magnesium AST ALT Total Protein Albumin Arterial Blood Glucose Arterial Blood Ionized Calcium Urine WBC (Auto) Urine Creatinine 08/01/21 08/02/21 08/02/21 Unknown 04:00 12:03 WBC RBC Hgb Hct RDW Lymph % (Auto) Lymph # (Auto) [place] # (Auto) Seg Neutrophils % Seg Neuts % (Manual) Lymphocytes % (Manual) Nucleated RBC % Seg Neutrophils # Seg Neutrophils # Man Lymphocytes # (Manual) Monocytes # (Manual) D-Dimer ABG pH POC ABG pCO2 POC ABG pO2 ABG Hemoglobin ABG Oxyhemoglobin ABG Sodium ABG Potassium ABG Chloride ABG Glucose 325 H Carboxyhemoglobin 0.4 L Sodium Potassium Chloride Carbon Dioxide BUN Creatinine Glucose POC Glucose 209 H Lactic Acid Calcium Magnesium AST ALT Total Protein Albumin Arterial Blood Glucose 325 H Arterial Blood Ionized Calcium Urine WBC (Auto) Urine Creatinine 125.6 H 08/02/21 08/02/21 08/02/21 15:30 17:03 23:17 WBC RBC Hgb Hct RDW Lymph % (Auto) Lymph # (Auto) [place] # (Auto) Seg Neutrophils % Seg Neuts % (Manual) Lymphocytes % (Manual) Nucleated RBC % Seg Neutrophils # Seg Neutrophils # Man Lymphocytes # (Manual) Monocytes # (Manual) D-Dimer ABG pH POC ABG pCO2 POC ABG pO2 ABG Hemoglobin ABG Oxyhemoglobin ABG Sodium ABG Potassium ABG Chloride ABG Glucose Carboxyhemoglobin Sodium Potassium Chloride Carbon Dioxide BUN Creatinine Glucose POC Glucose 210 H 265 H Lactic Acid Calcium Magnesium AST ALT Total Protein Albumin Arterial Blood Glucose Arterial Blood Ionized Calcium Urine WBC (Auto) 47.0 H Urine Creatinine 08/02/21 08/02/21 08/03/21 Unknown Unknown 04:17 WBC 14.1 H RBC Hgb Hct RDW 16.3 H Lymph % (Auto) 5.1 L Lymph # (Auto) 0.7 L [place] # (Auto) 0.9 H Seg Neutrophils % 88.7 H Seg Neuts % (Manual) Lymphocytes % (Manual) Nucleated RBC % Seg Neutrophils # 12.5 H Seg Neutrophils # Man Lymphocytes # (Manual) Monocytes # (Manual) D-Dimer ABG pH POC ABG pCO2 POC ABG pO2 ABG Hemoglobin ABG Oxyhemoglobin ABG Sodium ABG Potassium ABG Chloride ABG Glucose Carboxyhemoglobin Sodium Potassium Chloride Carbon Dioxide BUN 72 H 72 H Creatinine 1.8 H 1.6 H Glucose 307 H 263 H POC Glucose Lactic Acid Calcium Magnesium AST ALT Total Protein Albumin Arterial Blood Glucose Arterial Blood Ionized Calcium Urine WBC (Auto) Urine Creatinine 08/03/21 08/03/21 08/03/21 04:17 05:30 08:30 WBC 13.9 H RBC Hgb Hct RDW 16.0 H Lymph % (Auto) Lymph # (Auto) [place] # (Auto) Seg Neutrophils % Seg Neuts % (Manual) Lymphocytes % (Manual) Nucleated RBC % Seg Neutrophils # Seg Neutrophils # Man Lymphocytes # (Manual) Monocytes # (Manual) D-Dimer ABG pH POC ABG pCO2 POC ABG pO2 ABG Hemoglobin ABG Oxyhemoglobin ABG Sodium ABG Potassium ABG Chloride ABG Glucose Carboxyhemoglobin Sodium Potassium Chloride Carbon Dioxide BUN Creatinine Glucose POC Glucose 280 H Lactic Acid Calcium Magnesium 3.00 H AST ALT Total Protein Albumin Arterial Blood Glucose Arterial Blood Ionized Calcium Urine WBC (Auto) Urine Creatinine 08/03/21 08/03/21 08/03/21 12:14 13:39 15:11 WBC RBC Hgb Hct RDW Lymph % (Auto) Lymph # (Auto) [place] # (Auto) Seg Neutrophils % Seg Neuts % (Manual) Lymphocytes % (Manual) Nucleated RBC % Seg Neutrophils # Seg Neutrophils # Man Lymphocytes # (Manual) Monocytes # (Manual) D-Dimer ABG pH POC ABG pCO2 POC ABG pO2 ABG Hemoglobin ABG Oxyhemoglobin ABG Sodium ABG Potassium ABG Chloride ABG Glucose 306 H Carboxyhemoglobin 0.3 L Sodium Potassium Chloride Carbon Dioxide BUN Creatinine Glucose POC Glucose 287 H Lactic Acid 2.10 H* Calcium Magnesium AST ALT Total Protein Albumin Arterial Blood Glucose 306 H Arterial Blood Ionized Calcium Urine WBC (Auto) Urine Creatinine 08/03/21 08/03/21 08/04/21 16:52 23:08 04:00 WBC RBC Hgb Hct RDW Lymph % (Auto) Lymph # (Auto) [place] # (Auto) Seg Neutrophils % Seg Neuts % (Manual) Lymphocytes % (Manual) Nucleated RBC % Seg Neutrophils # Seg Neutrophils # Man Lymphocytes # (Manual) Monocytes # (Manual) D-Dimer ABG pH POC ABG pCO2 54.3 H POC ABG pO2 82.2 L ABG Hemoglobin ABG Oxyhemoglobin ABG Sodium 145.1 H ABG Potassium 5.0 H ABG Chloride ABG Glucose 316 H Carboxyhemoglobin 0.3 L Sodium Potassium Chloride Carbon Dioxide BUN Creatinine Glucose POC Glucose 282 H 289 H Lactic Acid Calcium Magnesium AST ALT Total Protein Albumin Arterial Blood Glucose 316 H Arterial Blood Ionized Calcium Urine WBC (Auto) Urine Creatinine 08/04/21 08/04/21 08/04/21 04:38 04:38 05:19 WBC 17.7 H RBC Hgb Hct RDW 16.5 H Lymph % (Auto) Lymph # (Auto) [place] # (Auto) Seg Neutrophils % Seg Neuts % (Manual) Lymphocytes % (Manual) Nucleated RBC % Seg Neutrophils # Seg Neutrophils # Man Lymphocytes # (Manual) Monocytes # (Manual) D-Dimer ABG pH POC ABG pCO2 POC ABG pO2 ABG Hemoglobin ABG Oxyhemoglobin ABG Sodium ABG Potassium ABG Chloride ABG Glucose Carboxyhemoglobin Sodium Potassium Chloride 108.3 H Carbon Dioxide BUN 76 H Creatinine 1.4 H Glucose 310 H POC Glucose 268 H Lactic Acid Calcium Magnesium 2.70 H AST ALT Total Protein Albumin Arterial Blood Glucose Arterial Blood Ionized Calcium Urine WBC (Auto) Urine Creatinine 08/04/21 08/04/21 08/04/21 11:48 16:41 23:49 WBC RBC Hgb Hct RDW Lymph % (Auto) Lymph # (Auto) [place] # (Auto) Seg Neutrophils % Seg Neuts % (Manual) Lymphocytes % (Manual) Nucleated RBC % Seg Neutrophils # Seg Neutrophils # Man Lymphocytes # (Manual) Monocytes # (Manual) D-Dimer ABG pH POC ABG pCO2 POC ABG pO2 ABG Hemoglobin ABG Oxyhemoglobin ABG Sodium ABG Potassium ABG Chloride ABG Glucose Carboxyhemoglobin Sodium Potassium Chloride Carbon Dioxide BUN Creatinine Glucose POC Glucose 197 H 208 H 209 H Lactic Acid Calcium Magnesium AST ALT Total Protein Albumin Arterial Blood Glucose Arterial Blood Ionized Calcium Urine WBC (Auto) Urine Creatinine 08/05/21 08/05/21 08/05/21 04:00 04:50 04:50 WBC 19.0 H RBC Hgb Hct RDW 17.0 H Lymph % (Auto) Lymph # (Auto) [place] # (Auto) Seg Neutrophils % Seg Neuts % (Manual) 75.0 H Lymphocytes % (Manual) 2.0 L Nucleated RBC % Seg Neutrophils # Seg Neutrophils # Man 14.3 H Lymphocytes # (Manual) 0.4 L Monocytes # (Manual) 1.0 H D-Dimer ABG pH 7.314 L POC ABG pCO2 48.9 H POC ABG pO2 ABG Hemoglobin ABG Oxyhemoglobin ABG Sodium ABG Potassium 5.0 H ABG Chloride 109.0 H ABG Glucose 234 H Carboxyhemoglobin 0.4 L Sodium Potassium 5.2 H Chloride 110.0 H Carbon Dioxide BUN 90 H Creatinine 1.8 H Glucose 235 H POC Glucose Lactic Acid Calcium Magnesium 2.60 H AST ALT Total Protein Albumin Arterial Blood Glucose 234 H Arterial Blood Ionized Calcium Urine WBC (Auto) Urine Creatinine 08/05/21 08/05/21 08/05/21 06:05 12:02 17:08 WBC RBC Hgb Hct RDW Lymph % (Auto) Lymph # (Auto) [place] # (Auto) Seg Neutrophils % Seg Neuts % (Manual) Lymphocytes % (Manual) Nucleated RBC % Seg Neutrophils # Seg Neutrophils # Man Lymphocytes # (Manual) Monocytes # (Manual) D-Dimer ABG pH POC ABG pCO2 POC ABG pO2 ABG Hemoglobin ABG Oxyhemoglobin ABG Sodium ABG Potassium ABG Chloride ABG Glucose Carboxyhemoglobin Sodium Potassium Chloride Carbon Dioxide BUN Creatinine Glucose POC Glucose 225 H 193 H 263 H Lactic Acid Calcium Magnesium AST ALT Total Protein Albumin Arterial Blood Glucose Arterial Blood Ionized Calcium Urine WBC (Auto) Urine Creatinine 08/05/21 08/06/21 08/06/21 23:34 05:00 05:00 WBC 16.8 H RBC 3.64 L Hgb Hct RDW 16.6 H Lymph % (Auto) Lymph # (Auto) [place] # (Auto) Seg Neutrophils % Seg Neuts % (Manual) Lymphocytes % (Manual) Nucleated RBC % Seg Neutrophils # Seg Neutrophils # Man Lymphocytes # (Manual) Monocytes # (Manual) D-Dimer ABG pH POC ABG pCO2 POC ABG pO2 ABG Hemoglobin ABG Oxyhemoglobin ABG Sodium ABG Potassium ABG Chloride ABG Glucose Carboxyhemoglobin Sodium Potassium Chloride 109.3 H Carbon Dioxide BUN 89 H Creatinine 1.6 H Glucose 197 H POC Glucose 224 H Lactic Acid Calcium 8.2 L Magnesium AST ALT Total Protein Albumin Arterial Blood Glucose Arterial Blood Ionized Calcium Urine WBC (Auto) Urine Creatinine 08/06/21 08/06/21 08/06/21 05:26 11:38 16:30 WBC RBC Hgb Hct RDW Lymph % (Auto) Lymph # (Auto) [place] # (Auto) Seg Neutrophils % Seg Neuts % (Manual) Lymphocytes % (Manual) Nucleated RBC % Seg Neutrophils # Seg Neutrophils # Man Lymphocytes # (Manual) Monocytes # (Manual) D-Dimer ABG pH POC ABG pCO2 POC ABG pO2 ABG Hemoglobin ABG Oxyhemoglobin ABG Sodium ABG Potassium ABG Chloride ABG Glucose Carboxyhemoglobin Sodium Potassium Chloride Carbon Dioxide BUN Creatinine Glucose POC Glucose 168 H 160 H 135 H Lactic Acid Calcium Magnesium AST ALT Total Protein Albumin Arterial Blood Glucose Arterial Blood Ionized Calcium Urine WBC (Auto) Urine Creatinine 08/06/21 08/07/21 08/07/21 23:08 04:00 04:00 WBC 13.6 H RBC 3.30 L Hgb 9.5 L Hct 29.2 L RDW 16.7 H Lymph % (Auto) Lymph # (Auto) [place] # (Auto) Seg Neutrophils % Seg Neuts % (Manual) Lymphocytes % (Manual) Nucleated RBC % Seg Neutrophils # Seg Neutrophils # Man Lymphocytes # (Manual) Monocytes # (Manual) D-Dimer ABG pH POC ABG pCO2 POC ABG pO2 ABG Hemoglobin ABG Oxyhemoglobin ABG Sodium ABG Potassium ABG Chloride ABG Glucose Carboxyhemoglobin Sodium 146 H Potassium Chloride 111.4 H Carbon Dioxide BUN 78 H Creatinine 1.5 H Glucose 143 H POC Glucose 125 H Lactic Acid Calcium 8.2 L Magnesium AST ALT Total Protein Albumin Arterial Blood Glucose Arterial Blood Ionized Calcium Urine WBC (Auto) Urine Creatinine 08/07/21 08/07/21 08/07/21 04:00 05:16 12:12 WBC RBC Hgb Hct RDW Lymph % (Auto) Lymph # (Auto) [place] # (Auto) Seg Neutrophils % Seg Neuts % (Manual) Lymphocytes % (Manual) Nucleated RBC % Seg Neutrophils # Seg Neutrophils # Man Lymphocytes # (Manual) Monocytes # (Manual) D-Dimer ABG pH POC ABG pCO2 POC ABG pO2 80.1 L ABG Hemoglobin 9.8 L ABG Oxyhemoglobin ABG Sodium ABG Potassium ABG Chloride 111.0 H ABG Glucose 157 H Carboxyhemoglobin 0.3 L Sodium Potassium Chloride Carbon Dioxide BUN Creatinine Glucose POC Glucose 144 H 125 H Lactic Acid Calcium Magnesium AST ALT Total Protein Albumin Arterial Blood Glucose 157 H Arterial Blood Ionized Calcium 4.5 L Urine WBC (Auto) Urine Creatinine 08/07/21 08/08/21 08/08/21 23:20 04:47 06:00 WBC 13.8 H RBC 3.19 L Hgb 9.3 L Hct 28.4 L RDW 16.4 H Lymph % (Auto) Lymph # (Auto) [place] # (Auto) Seg Neutrophils % Seg Neuts % (Manual) Lymphocytes % (Manual) Nucleated RBC % Seg Neutrophils # Seg Neutrophils # Man Lymphocytes # (Manual) Monocytes # (Manual) D-Dimer ABG pH POC ABG pCO2 POC ABG pO2 ABG Hemoglobin ABG Oxyhemoglobin ABG Sodium ABG Potassium ABG Chloride ABG Glucose Carboxyhemoglobin Sodium Potassium Chloride Carbon Dioxide BUN Creatinine Glucose POC Glucose 118 H 130 H Lactic Acid Calcium Magnesium AST ALT Total Protein Albumin Arterial Blood Glucose Arterial Blood Ionized Calcium Urine WBC (Auto) Urine Creatinine 08/08/21 08/08/21 08/08/21 06:00 11:33 17:54 WBC RBC Hgb Hct RDW Lymph % (Auto) Lymph # (Auto) [place] # (Auto) Seg Neutrophils % Seg Neuts % (Manual) Lymphocytes % (Manual) Nucleated RBC % Seg Neutrophils # Seg Neutrophils # Man Lymphocytes # (Manual) Monocytes # (Manual) D-Dimer ABG pH POC ABG pCO2 POC ABG pO2 ABG Hemoglobin ABG Oxyhemoglobin ABG Sodium ABG Potassium ABG Chloride ABG Glucose Carboxyhemoglobin Sodium 147 H Potassium Chloride 112.4 H Carbon Dioxide BUN 71 H Creatinine 1.4 H Glucose 124 H POC Glucose 126 H 124 H Lactic Acid Calcium Magnesium AST ALT Total Protein Albumin Arterial Blood Glucose Arterial Blood Ionized Calcium Urine WBC (Auto) Urine Creatinine 08/08/21 08/09/21 08/09/21 23:41 06:06 10:00 WBC RBC Hgb Hct RDW Lymph % (Auto) Lymph # (Auto) [place] # (Auto) Seg Neutrophils % Seg Neuts % (Manual) Lymphocytes % (Manual) Nucleated RBC % Seg Neutrophils # Seg Neutrophils # Man Lymphocytes # (Manual) Monocytes # (Manual) D-Dimer ABG pH POC ABG pCO2 POC ABG pO2 ABG Hemoglobin ABG Oxyhemoglobin ABG Sodium ABG Potassium ABG Chloride ABG Glucose Carboxyhemoglobin Sodium 146 H Potassium Chloride 111.3 H Carbon Dioxide BUN 72 H Creatinine 1.5 H Glucose 119 H POC Glucose 119 H 127 H Lactic Acid Calcium Magnesium AST ALT 69 H Total Protein 5.2 L Albumin 2.6 L Arterial Blood Glucose Arterial Blood Ionized Calcium Urine WBC (Auto) Urine Creatinine 08/09/21 08/09/21 08/09/21 10:00 11:34 16:50 WBC 13.0 H RBC 2.88 L Hgb 8.5 L Hct 25.8 L RDW 16.5 H Lymph % (Auto) Lymph # (Auto) [place] # (Auto) Seg Neutrophils % Seg Neuts % (Manual) Lymphocytes % (Manual) Nucleated RBC % Seg Neutrophils # Seg Neutrophils # Man Lymphocytes # (Manual) Monocytes # (Manual) D-Dimer ABG pH POC ABG pCO2 POC ABG pO2 ABG Hemoglobin ABG Oxyhemoglobin ABG Sodium ABG Potassium ABG Chloride ABG Glucose Carboxyhemoglobin Sodium Potassium Chloride Carbon Dioxide BUN Creatinine Glucose POC Glucose 114 H 117 H Lactic Acid Calcium Magnesium AST ALT Total Protein Albumin Arterial Blood Glucose Arterial Blood Ionized Calcium Urine WBC (Auto) Urine Creatinine 08/10/21 08/10/21 08/10/21 00:12 05:20 05:20 WBC 13.2 H RBC 2.92 L Hgb 8.4 L Hct 25.9 L RDW 16.7 H Lymph % (Auto) Lymph # (Auto) [place] # (Auto) Seg Neutrophils % Seg Neuts % (Manual) Lymphocytes % (Manual) Nucleated RBC % Seg Neutrophils # Seg Neutrophils # Man Lymphocytes # (Manual) Monocytes # (Manual) D-Dimer ABG pH POC ABG pCO2 POC ABG pO2 ABG Hemoglobin ABG Oxyhemoglobin ABG Sodium ABG Potassium ABG Chloride ABG Glucose Carboxyhemoglobin Sodium 147 H Potassium Chloride 111.8 H Carbon Dioxide BUN 68 H Creatinine 1.4 H Glucose POC Glucose 114 H Lactic Acid Calcium Magnesium AST ALT Total Protein Albumin Arterial Blood Glucose Arterial Blood Ionized Calcium Urine WBC (Auto) Urine Creatinine 08/10/21 08/10/21 08/11/21 17:52 18:23 02:51 WBC RBC Hgb Hct RDW Lymph % (Auto) Lymph # (Auto) [place] # (Auto) Seg Neutrophils % Seg Neuts % (Manual) Lymphocytes % (Manual) Nucleated RBC % Seg Neutrophils # Seg Neutrophils # Man Lymphocytes # (Manual) Monocytes # (Manual) D-Dimer ABG pH POC ABG pCO2 POC ABG pO2 ABG Hemoglobin 8.7 L ABG Oxyhemoglobin ABG Sodium ABG Potassium ABG Chloride 111.0 H ABG Glucose Carboxyhemoglobin 0.2 L Sodium Potassium Chloride Carbon Dioxide BUN Creatinine Glucose POC Glucose 55 L 133 H Lactic Acid Calcium Magnesium AST ALT Total Protein Albumin Arterial Blood Glucose Arterial Blood Ionized Calcium 4.5 L Urine WBC (Auto) Urine Creatinine 08/11/21 08/11/21 08/11/21 04:30 11:36 17:11 WBC RBC Hgb Hct RDW Lymph % (Auto) Lymph # (Auto) [place] # (Auto) Seg Neutrophils % Seg Neuts % (Manual) Lymphocytes % (Manual) Nucleated RBC % Seg Neutrophils # Seg Neutrophils # Man Lymphocytes # (Manual) Monocytes # (Manual) D-Dimer ABG pH POC ABG pCO2 POC ABG pO2 ABG Hemoglobin ABG Oxyhemoglobin ABG Sodium ABG Potassium ABG Chloride ABG Glucose Carboxyhemoglobin Sodium Potassium Chloride 110.0 H Carbon Dioxide BUN 59 H Creatinine Glucose POC Glucose 116 H 115 H Lactic Acid Calcium 8.3 L Magnesium AST ALT 64 H Total Protein 5.5 L Albumin 2.6 L Arterial Blood Glucose Arterial Blood Ionized Calcium Urine WBC (Auto) Urine Creatinine 08/11/21 08/11/21 08/12/21 23:18 Unknown 05:05 WBC 12.2 H RBC 2.81 L Hgb 8.4 L Hct 25.4 L RDW 17.0 H Lymph % (Auto) Lymph # (Auto) [place] # (Auto) Seg Neutrophils % Seg Neuts % (Manual) Lymphocytes % (Manual) Nucleated RBC % Seg Neutrophils # Seg Neutrophils # Man Lymphocytes # (Manual) Monocytes # (Manual) D-Dimer ABG pH POC ABG pCO2 POC ABG pO2 ABG Hemoglobin ABG Oxyhemoglobin ABG Sodium ABG Potassium ABG Chloride ABG Glucose Carboxyhemoglobin Sodium Potassium Chloride Carbon Dioxide BUN Creatinine Glucose POC Glucose 126 H 131 H Lactic Acid Calcium Magnesium AST ALT Total Protein Albumin Arterial Blood Glucose Arterial Blood Ionized Calcium Urine WBC (Auto) Urine Creatinine 08/12/21 08/12/21 08/12/21 12:14 17:19 21:41 WBC 16.5 H RBC 3.04 L Hgb 8.9 L Hct 27.3 L RDW 17.0 H Lymph % (Auto) 9.0 L Lymph # (Auto) [place] # (Auto) 1.1 H Seg Neutrophils % 83.7 H Seg Neuts % (Manual) Lymphocytes % (Manual) Nucleated RBC % Seg Neutrophils # 13.8 H Seg Neutrophils # Man Lymphocytes # (Manual) Monocytes # (Manual) D-Dimer ABG pH POC ABG pCO2 POC ABG pO2 ABG Hemoglobin ABG Oxyhemoglobin ABG Sodium ABG Potassium ABG Chloride ABG Glucose Carboxyhemoglobin Sodium Potassium Chloride Carbon Dioxide BUN Creatinine Glucose POC Glucose 123 H 129 H Lactic Acid Calcium Magnesium AST ALT Total Protein Albumin Arterial Blood Glucose Arterial Blood Ionized Calcium Urine WBC (Auto) Urine Creatinine 08/12/21 08/12/21 08/13/21 21:41 23:26 05:24 WBC RBC Hgb Hct RDW Lymph % (Auto) Lymph # (Auto) [place] # (Auto) Seg Neutrophils % Seg Neuts % (Manual) Lymphocytes % (Manual) Nucleated RBC % Seg Neutrophils # Seg Neutrophils # Man Lymphocytes # (Manual) Monocytes # (Manual) D-Dimer ABG pH POC ABG pCO2 POC ABG pO2 ABG Hemoglobin ABG Oxyhemoglobin ABG Sodium ABG Potassium ABG Chloride ABG Glucose Carboxyhemoglobin Sodium 147 H Potassium Chloride 110.7 H Carbon Dioxide BUN 48 H Creatinine Glucose 147 H POC Glucose 133 H 109 H Lactic Acid Calcium Magnesium AST ALT Total Protein Albumin Arterial Blood Glucose Arterial Blood Ionized Calcium Urine WBC (Auto) Urine Creatinine 08/13/21 08/13/21 08/13/21 05:43 11:36 18:00 WBC RBC Hgb Hct RDW Lymph % (Auto) Lymph # (Auto) [place] # (Auto) Seg Neutrophils % Seg Neuts % (Manual) Lymphocytes % (Manual) Nucleated RBC % Seg Neutrophils # Seg Neutrophils # Man Lymphocytes # (Manual) Monocytes # (Manual) D-Dimer ABG pH POC ABG pCO2 POC ABG pO2 76.8 L ABG Hemoglobin 8.6 L ABG Oxyhemoglobin ABG Sodium ABG Potassium ABG Chloride 112.0 H ABG Glucose 126 H Carboxyhemoglobin 0.4 L Sodium Potassium Chloride Carbon Dioxide BUN Creatinine Glucose POC Glucose 127 H 128 H Lactic Acid Calcium Magnesium AST ALT Total Protein Albumin Arterial Blood Glucose 126 H Arterial Blood Ionized Calcium 4.4 L Urine WBC (Auto) Urine Creatinine 08/13/21 08/14/21 08/14/21 23:27 04:00 04:00 WBC RBC 2.65 L Hgb 8.1 L Hct 24.0 L RDW 17.1 H Lymph % (Auto) Lymph # (Auto) [place] # (Auto) Seg Neutrophils % Seg Neuts % (Manual) Lymphocytes % (Manual) Nucleated RBC % Seg Neutrophils # Seg Neutrophils # Man Lymphocytes # (Manual) Monocytes # (Manual) D-Dimer ABG pH POC ABG pCO2 POC ABG pO2 ABG Hemoglobin ABG Oxyhemoglobin ABG Sodium ABG Potassium ABG Chloride ABG Glucose Carboxyhemoglobin Sodium 146 H Potassium Chloride 108.7 H Carbon Dioxide 31 H BUN 38 H Creatinine Glucose 115 H POC Glucose 125 H Lactic Acid Calcium Magnesium AST ALT Total Protein 5.8 L Albumin 2.6 L Arterial Blood Glucose Arterial Blood Ionized Calcium Urine WBC (Auto) Urine Creatinine 08/14/21 08/14/21 05:24 11:34 WBC RBC Hgb Hct RDW Lymph % (Auto) Lymph # (Auto) [place] # (Auto) Seg Neutrophils % Seg Neuts % (Manual) Lymphocytes % (Manual) Nucleated RBC % Seg Neutrophils # Seg Neutrophils # Man Lymphocytes # (Manual) Monocytes # (Manual) D-Dimer ABG pH POC ABG pCO2 POC ABG pO2 ABG Hemoglobin ABG Oxyhemoglobin ABG Sodium ABG Potassium ABG Chloride ABG Glucose Carboxyhemoglobin Sodium Potassium Chloride Carbon Dioxide BUN Creatinine Glucose POC Glucose 126 H 126 H Lactic Acid Calcium Magnesium AST ALT Total Protein Albumin Arterial Blood Glucose Arterial Blood Ionized Calcium Urine WBC (Auto) Urine Creatinine Chest x-ray: image reviewed Allied health notes reviewed: RT
[2021-08-15] MEDS: INSULIN LISPRO 100 UNIT/ML SUB-Q SCH ×4 (00:42→18:33)
[2021-08-15] MEDS: FREE WATER PO SCH ×7 (01:33→21:01)
[2021-08-15] MEDS: SENNOSIDES/DOCUSATE SODIUM 8.6/50 MG TAB FEEDTUBE SCH ×4 (04:04→20:08)
[2021-08-15 06:12] LABS: Basophils % (Auto) 0.3 % (0.0-1.8); Eosinophils # (Auto) 0.1 K/mm3 (0.0-0.4); Eosinophils % (Auto) 0.9 % (0.0-4.3); Hemoglobin 7.7 gm/dl (10.1-14.3); Lymphocytes % (Auto) 12.5 % (13.4-35.0); Mean Corpuscular HGB Conc 34 % (30-34); Mean Corpuscular Volume 91 fl (79-97); Monocytes # (Auto) 0.5 K/mm3 (0.0-0.8); Monocytes % (Auto) 5.9 % (0.0-7.3); Platelet Count 243 K/mm3 (140-440); Red Blood Count 2.53 M/mm3 (3.65-5.03)
[2021-08-15 06:14] LABS: Alanine Aminotransferase 63 units/L (7-56); Albumin 2.4 g/dL (3.9-5); BUN/Creatinine Ratio 45; Blood Urea Nitrogen 36 mg/dL (7-17); Calcium 8.4 mg/dL (8.4-10.2); Hemolysis Index 0
[2021-08-15] MEDS: ARFORMOTEROL 15 MCG/2 ML NEBU IH SCH ×2 (07:48→23:45)
[2021-08-15] MEDS: BUDESONIDE 0.5 MG/2 ML NEBU IH SCH ×2 (07:48→23:45)
[2021-08-15] MEDS: IPRATROPIUM/ALBUTEROL SULFATE 3 ML AMPUL.NEB IH SCH ×3 (07:48→23:43)
--- NOTE | 2021-08-15 09:10 | Event Note ---
Date: 08/15/21 Will sign off. Please call with questions. Dalia Alvarez MD
[2021-08-15] MEDS: POLYETHYLENE GLYCOL 3350 17 GM POWDER PO SCH (09:55)
[2021-08-15] MEDS: oxyCODONE 5 MG TAB PO SCH ×3 (09:55→21:04)
[2021-08-15] MEDS: FAMOTIDINE 20 MG TAB FEEDTUBE SCH ×2 (09:55→20:59)
[2021-08-15] MEDS: ENOXAPARIN 100 MG/1 ML INJ SUB-Q SCH ×2 (09:55→21:00)
[2021-08-15] MEDS: QUEtiapine 200 MG TAB PO SCH ×2 (09:55→21:00)
[2021-08-15] MEDS: fentaNYL DRIP Premix 2,000 MCG/100 ML BAG IV SCH ×2 (09:56→16:57)
[2021-08-15] MEDS: MIDAZOLAM 100 MG in SODIUM CHLORIDE 0.9% 80 ML IV SCH (09:56)
--- NOTE | 2021-08-15 11:57 | Progress Note ---
Assessment and Plan Acute hypoxemic respiratory failure s/p tracheostomy s/p PEG Lung Mass -metastatic breast disease History of right breast cancer Leukocytosis DM II Hypertension Hyperlipidemia Tobacco use disorder Hypernatremia Get CXR to re-evalute pulmoanry parenchyma. The bradycardia could be related to hypoxia. Monitor QTc while she is on Seroquel Bowel regime for constipation Continue, daily SAT. -Trach care, airway clearance, secretion management -Daily SAT and SBT assessment today - continue to titrate supplemental oxygen to keep SpO2 88-90% - VAP bundle addressed, aspiration precautions HOB >30 - continue lung protective strategies - continue bronchodilators (GLADIS & LABA) with pulmonary hygiene per RT - continue accuchecks with glycemic control per SSI (While critically ill target blood glucose of 140-180 mg/dL; avoid hypoglycemia) - sedation prn for target RASS 0 to -1 - avoid nephrotoxins, renally dose all medications -Free water flushes with hypotonic solution for hypernatremia, improving - continue to avoid benzodiazepines, reduce the possibility of delirium - prn analgesia per CPOT score - Maintenance of sleep-wake cycle, avoid delirium - enteric nutritional support titrate to goal rate - VTE prophylaxis- Enoxaparin -Stress ulcer prophylaxis-Famotidine - PT/OT/ROM exercises - continue mobility, off loading and frequent turning per facility protocol for pressure ulcer prevention - Monitor hemodynamics closely - continue other care per attending / other consultants COVID SPECIFIC INTERVENTIONS -Negative Discharge planning, LTACH for ongoing weaning trials CONDITION: CRITICAL PROGNOSIS: GUARDED CODE STATUS: FULL CODE The high probability of a clinically significant, sudden or life-threatening deterioration of the [respiratory, cardiovascular, oncological & neurologic] system(s) required my full and direct attention, intervention and personal management. The aggregate critical care time was [35] minutes without overlap. Time includes spent on; [x] Data Review and interpretation [x] Patient assessment and monitoring of vital signs [x] Documentation [x] Medication orders and management Subjective Date of service: 08/15/21 Principal diagnosis: Ac hypoxemic resp failure ; AE-COPD; H/O CA Breast; DM II; HTN Interval history: Patient is seen today for: Acute hypoxemic respiratory failure; AE-COPD; Possible hypercapnia; H/O CA Breast; DM II; HTN Seen and examined at bedside; 24hour events reviewed; nursing and respiratory care staff consulted; no adverse overnight events reported to me; resting in bed; remains on MVS; Remains on Fentanyl infusion and Midazolam. On Seroquel Overnight had an episode of bradycardia when she was turned. No fevers Trach to MVS; ACVC 16/450/+6/30% Objective Vital Signs - 12hr 08/15/21 08/15/21 08/15/21 00:00 00:15 00:31 Temperature 98.8 F Pulse Rate 97 H 97 H 96 H Pulse Rate [ Anterior Bilateral] Respiratory 16 16 16 Rate Respiratory Rate [Anterior Bilateral] Blood Pressure 102/63 102/63 102/63 O2 Sat by Pulse 96 98 100 Oximetry 08/15/21 08/15/21 08/15/21 00:45 01:00 01:15 Temperature Pulse Rate 96 H 96 H 64 Pulse Rate [ Anterior Bilateral] Respiratory 16 16 12 Rate Respiratory Rate [Anterior Bilateral] Blood Pressure 102/63 93/69 93/69 O2 Sat by Pulse 98 97 97 Oximetry 08/15/21 08/15/21 08/15/21 01:31 01:45 02:01 Temperature Pulse Rate 107 H 106 H 104 H Pulse Rate [ Anterior Bilateral] Respiratory 16 16 16 Rate Respiratory Rate [Anterior Bilateral] Blood Pressure 93/69 93/69 105/47 O2 Sat by Pulse 98 98 93 Oximetry 08/15/21 08/15/21 08/15/21 02:15 02:31 02:45 Temperature Pulse Rate 101 H 100 H 100 H Pulse Rate [ Anterior Bilateral] Respiratory 16 16 16 Rate Respiratory Rate [Anterior Bilateral] Blood Pressure 105/47 105/47 105/47 O2 Sat by Pulse 98 98 98 Oximetry 08/15/21 08/15/21 08/15/21 03:00 03:15 03:31 Temperature Pulse Rate 99 H 98 H 96 H Pulse Rate [ Anterior Bilateral] Respiratory 16 16 16 Rate Respiratory Rate [Anterior Bilateral] Blood Pressure 106/57 106/57 106/57 O2 Sat by Pulse 92 97 97 Oximetry 08/15/21 08/15/21 08/15/21 03:39 03:45 04:00 Temperature 99.3 F Pulse Rate 96 H 95 H Pulse Rate [ Anterior Bilateral] Respiratory 16 16 Rate Respiratory Rate [Anterior Bilateral] Blood Pressure 106/57 98/63 O2 Sat by Pulse 97 92 Oximetry 08/15/21 08/15/21 08/15/21 04:15 04:31 04:45 Temperature Pulse Rate 94 H 95 H 94 H Pulse Rate [ Anterior Bilateral] Respiratory 15 16 16 Rate Respiratory Rate [Anterior Bilateral] Blood Pressure 98/63 98/63 98/63 O2 Sat by Pulse 97 97 97 Oximetry 08/15/21 08/15/21 08/15/21 05:00 05:15 05:21 Temperature Pulse Rate 93 H 96 H 82 Pulse Rate [ Anterior Bilateral] Respiratory 16 16 Rate Respiratory Rate [Anterior Bilateral] Blood Pressure 108/77 108/77 108/77 O2 Sat by Pulse 93 97 95 Oximetry 08/15/21 08/15/21 08/15/21 05:31 05:45 06:00 Temperature Pulse Rate 105 H 102 H 97 H Pulse Rate [ Anterior Bilateral] Respiratory 16 16 16 Rate Respiratory Rate [Anterior Bilateral] Blood Pressure 108/77 108/77 103/68 O2 Sat by Pulse 96 96 92 Oximetry 08/15/21 08/15/21 08/15/21 06:15 06:31 06:45 Temperature Pulse Rate 94 H 92 H 91 H Pulse Rate [ Anterior Bilateral] Respiratory 16 16 16 Rate Respiratory Rate [Anterior Bilateral] Blood Pressure 103/68 103/68 103/68 O2 Sat by Pulse 96 96 96 Oximetry 08/15/21 08/15/21 08/15/21 07:00 07:15 07:31 Temperature Pulse Rate 89 89 89 Pulse Rate [ Anterior Bilateral] Respiratory 16 16 16 Rate Respiratory Rate [Anterior Bilateral] Blood Pressure 105/58 105/58 105/58 O2 Sat by Pulse 97 96 96 Oximetry 08/15/21 08/15/21 08/15/21 07:44 07:45 07:48 Temperature Pulse Rate 94 H 95 H Pulse Rate [ 94 H Anterior Bilateral] Respiratory 16 Rate Respiratory 16 Rate [Anterior Bilateral] Blood Pressure 105/58 105/58 O2 Sat by Pulse 99 98 Oximetry 08/15/21 08/15/21 08/15/21 08:00 08:15 08:31 Temperature 98.3 F Pulse Rate 93 H 93 H 91 H Pulse Rate [ Anterior Bilateral] Respiratory 14 16 16 Rate Respiratory Rate [Anterior Bilateral] Blood Pressure 114/70 105/58 105/58 O2 Sat by Pulse 93 96 95 Oximetry 08/15/21 08/15/21 08/15/21 08:45 09:00 09:15 Temperature Pulse Rate 90 92 H 90 Pulse Rate [ Anterior Bilateral] Respiratory 16 16 16 Rate Respiratory Rate [Anterior Bilateral] Blood Pressure 105/58 113/64 113/64 O2 Sat by Pulse 95 93 95 Oximetry 08/15/21 08/15/21 08/15/21 09:31 09:45 10:01 Temperature Pulse Rate 90 90 96 H Pulse Rate [ Anterior Bilateral] Respiratory 16 16 16 Rate Respiratory Rate [Anterior Bilateral] Blood Pressure 113/64 113/64 113/64 O2 Sat by Pulse 95 95 95 Oximetry 08/15/21 08/15/21 08/15/21 10:15 10:31 10:45 Temperature Pulse Rate 101 H 114 H 108 H Pulse Rate [ Anterior Bilateral] Respiratory 15 14 16 Rate Respiratory Rate [Anterior Bilateral] Blood Pressure 134/78 134/78 134/78 O2 Sat by Pulse 96 95 Oximetry 08/15/21 11:01 Temperature Pulse Rate 107 H Pulse Rate [ Anterior Bilateral] Respiratory 16 Rate Respiratory Rate [Anterior Bilateral] Blood Pressure 138/69 O2 Sat by Pulse Oximetry Constitutional: no acute distress (sedate), other (eldely obese female without increased respiratory effort at rest on MVS) Eyes: non-icteric ENT: oropharynx moist, other (trach [place] #8, cuffed; no bleeding) Neck: supple, no lymphadenopathy, no JVD Effort: mildly labored Ascultation: Bilateral: diminished breath sounds, wheezes (central), rales, rhonchi, other (prolonged expiratory phase) Percussion: Bilateral: not dull Cardiovascular: regular rate and rhythm, other (S1,S2) Gastrointestinal: normoactive bowel sounds, soft, non-tender, non-distended, other (PEG) Integumentary: normal Extremities: no cyanosis, no edema, pulses normal, no ischemia or petechiae Neurologic: non-focal exam (moves all extremities), pupils equal and round Psychiatric: mood appropriate, affect normal CBC and BMP: 08/15/21 Unknown 08/15/21 Unknown ABG, PT/INR, D-dimer: ABG ABG pH 7.399 (7.320-7.450) 08/13/21 05:43 POC ABG pCO2 44.3 mmHg (32.0-48.0) 08/13/21 05:43 POC ABG pO2 76.8 mmHg (83-108) L 08/13/21 05:43 POC ABG HCO3 26.8 08/13/21 05:43 ABG O2 Saturation 94.7 (0-100) 08/13/21 05:43 PT/INR, D-dimer PT 14.5 Sec. (12.2-14.9) 08/12/21 21:41 INR 1.08 (0.87-1.13) 08/12/21 21:41 D-Dimer 852.47 ng/mlDDU (0-234) H 07/29/21 07:17 Abnormal lab findings: Abnormal Labs 07/27/21 07/27/21 07/27/21 22:57 22:57 22:57 WBC 20.3 H RBC Hgb Hct RDW Lymph % (Auto) Lymph # (Auto) [place] # (Auto) Seg Neutrophils % Seg Neuts % (Manual) 89.0 H Lymphocytes % (Manual) 9.0 L Nucleated RBC % Seg Neutrophils # Seg Neutrophils # Man 18.1 H Lymphocytes # (Manual) Monocytes # (Manual) D-Dimer ABG pH POC ABG pCO2 POC ABG pO2 ABG Hemoglobin ABG Oxyhemoglobin ABG Sodium ABG Potassium ABG Chloride ABG Glucose Carboxyhemoglobin Sodium Potassium 3.5 L Chloride 96.9 L Carbon Dioxide 20 L BUN 19 H Creatinine Glucose 204 H POC Glucose Lactic Acid 7.20 H* Calcium Magnesium AST 98 H ALT 90 H Total Protein Albumin Arterial Blood Glucose Arterial Blood Ionized Calcium Urine WBC (Auto) Urine Creatinine 07/28/21 07/28/21 07/28/21 01:31 07:49 10:00 WBC RBC Hgb Hct RDW Lymph % (Auto) Lymph # (Auto) [place] # (Auto) Seg Neutrophils % Seg Neuts % (Manual) Lymphocytes % (Manual) Nucleated RBC % Seg Neutrophils # Seg Neutrophils # Man Lymphocytes # (Manual) Monocytes # (Manual) D-Dimer ABG pH POC ABG pCO2 POC ABG pO2 ABG Hemoglobin ABG Oxyhemoglobin ABG Sodium ABG Potassium ABG Chloride ABG Glucose Carboxyhemoglobin Sodium Potassium Chloride Carbon Dioxide BUN Creatinine Glucose POC Glucose 194 H Lactic Acid 6.90 H* 6.70 H* Calcium Magnesium AST ALT Total Protein Albumin Arterial Blood Glucose Arterial Blood Ionized Calcium Urine WBC (Auto) Urine Creatinine 07/28/21 07/28/21 07/28/21 12:41 13:21 16:21 WBC RBC Hgb Hct RDW Lymph % (Auto) Lymph # (Auto) [place] # (Auto) Seg Neutrophils % Seg Neuts % (Manual) Lymphocytes % (Manual) Nucleated RBC % Seg Neutrophils # Seg Neutrophils # Man Lymphocytes # (Manual) Monocytes # (Manual) D-Dimer ABG pH POC ABG pCO2 POC ABG pO2 ABG Hemoglobin ABG Oxyhemoglobin ABG Sodium ABG Potassium ABG Chloride ABG Glucose Carboxyhemoglobin Sodium Potassium Chloride Carbon Dioxide BUN Creatinine Glucose POC Glucose 159 H 155 H Lactic Acid 6.10 H* Calcium Magnesium AST ALT Total Protein Albumin Arterial Blood Glucose Arterial Blood Ionized Calcium Urine WBC (Auto) Urine Creatinine 07/28/21 07/29/21 07/29/21 22:03 04:44 04:44 WBC 17.0 H RBC Hgb Hct RDW Lymph % (Auto) Lymph # (Auto) [place] # (Auto) Seg Neutrophils % Seg Neuts % (Manual) 82.0 H Lymphocytes % (Manual) 11.0 L Nucleated RBC % Seg Neutrophils # Seg Neutrophils # Man 13.9 H Lymphocytes # (Manual) Monocytes # (Manual) 1.0 H D-Dimer ABG pH POC ABG pCO2 POC ABG pO2 ABG Hemoglobin ABG Oxyhemoglobin ABG Sodium ABG Potassium ABG Chloride ABG Glucose Carboxyhemoglobin Sodium Potassium Chloride Carbon Dioxide BUN 23 H Creatinine Glucose 196 H POC Glucose 187 H Lactic Acid Calcium Magnesium AST ALT Total Protein Albumin Arterial Blood Glucose Arterial Blood Ionized Calcium Urine WBC (Auto) Urine Creatinine 07/29/21 07/29/21 07/29/21 06:56 07:17 07:17 WBC 26.1 H RBC Hgb Hct 43.3 H RDW 16.0 H Lymph % (Auto) Lymph # (Auto) [place] # (Auto) Seg Neutrophils % Seg Neuts % (Manual) 80.0 H Lymphocytes % (Manual) Nucleated RBC % Seg Neutrophils # Seg Neutrophils # Man 20.9 H Lymphocytes # (Manual) Monocytes # (Manual) D-Dimer ABG pH POC ABG pCO2 POC ABG pO2 ABG Hemoglobin ABG Oxyhemoglobin ABG Sodium ABG Potassium ABG Chloride ABG Glucose Carboxyhemoglobin Sodium Potassium Chloride Carbon Dioxide 20 L D BUN 23 H Creatinine Glucose 308 H POC Glucose 165 H Lactic Acid Calcium Magnesium AST ALT Total Protein Albumin Arterial Blood Glucose Arterial Blood Ionized Calcium Urine WBC (Auto) Urine Creatinine 09/03/21 09/03/21 09/03/21 07:17 09:16 10:30 WBC RBC Hgb Hct RDW Lymph % (Auto) Lymph # (Auto) [place] # (Auto) Seg Neutrophils % Seg Neuts % (Manual) Lymphocytes % (Manual) Nucleated RBC % Seg Neutrophils # Seg Neutrophils # Man Lymphocytes # (Manual) Monocytes # (Manual) D-Dimer 852.47 H ABG pH 7.236 L POC ABG pCO2 56.0 H POC ABG pO2 266.4 H ABG Hemoglobin ABG Oxyhemoglobin 99.1 H ABG Sodium 132.3 L ABG Potassium 4.9 H ABG Chloride ABG Glucose 202 H Carboxyhemoglobin 0.2 L Sodium Potassium Chloride Carbon Dioxide BUN Creatinine Glucose POC Glucose 271 H Lactic Acid Calcium Magnesium AST ALT Total Protein Albumin Arterial Blood Glucose 202 H Arterial Blood Ionized Calcium Urine WBC (Auto) Urine Creatinine 07/29/21 07/29/21 07/30/21 17:54 23:32 05:08 WBC RBC Hgb Hct RDW Lymph % (Auto) Lymph # (Auto) [place] # (Auto) Seg Neutrophils % Seg Neuts % (Manual) Lymphocytes % (Manual) Nucleated RBC % Seg Neutrophils # Seg Neutrophils # Man Lymphocytes # (Manual) Monocytes # (Manual) D-Dimer ABG pH POC ABG pCO2 POC ABG pO2 ABG Hemoglobin ABG Oxyhemoglobin ABG Sodium ABG Potassium ABG Chloride ABG Glucose Carboxyhemoglobin Sodium Potassium Chloride Carbon Dioxide BUN Creatinine Glucose POC Glucose 168 H 205 H 214 H Lactic Acid Calcium Magnesium AST ALT Total Protein Albumin Arterial Blood Glucose Arterial Blood Ionized Calcium Urine WBC (Auto) Urine Creatinine 07/30/21 07/30/21 07/30/21 06:01 11:32 17:34 WBC RBC Hgb Hct RDW Lymph % (Auto) Lymph # (Auto) [place] # (Auto) Seg Neutrophils % Seg Neuts % (Manual) Lymphocytes % (Manual) Nucleated RBC % Seg Neutrophils # Seg Neutrophils # Man Lymphocytes # (Manual) Monocytes # (Manual) D-Dimer ABG pH 7.480 H POC ABG pCO2 23.6 L POC ABG pO2 280.0 H ABG Hemoglobin ABG Oxyhemoglobin 99.3 H ABG Sodium 133.7 L ABG Potassium ABG Chloride ABG Glucose 232 H Carboxyhemoglobin 0 L Sodium Potassium Chloride Carbon Dioxide BUN Creatinine Glucose POC Glucose 207 H 239 H Lactic Acid Calcium Magnesium AST ALT Total Protein Albumin Arterial Blood Glucose 232 H Arterial Blood Ionized Calcium 4.4 L Urine WBC (Auto) Urine Creatinine 07/30/21 07/31/21 07/31/21 23:39 03:34 04:45 WBC 15.0 H RBC Hgb Hct RDW 15.5 H Lymph % (Auto) Lymph # (Auto) [place] # (Auto) Seg Neutrophils % Seg Neuts % (Manual) 89.0 H Lymphocytes % (Manual) 7.0 L Nucleated RBC % Seg Neutrophils # Seg Neutrophils # Man 13.4 H Lymphocytes # (Manual) 1.1 L Monocytes # (Manual) D-Dimer ABG pH 7.481 H POC ABG pCO2 31.8 L POC ABG pO2 ABG Hemoglobin ABG Oxyhemoglobin ABG Sodium 135.2 L ABG Potassium 3.3 L ABG Chloride ABG Glucose 188 H Carboxyhemoglobin 0.1 L Sodium Potassium Chloride Carbon Dioxide BUN Creatinine Glucose POC Glucose 176 H Lactic Acid Calcium Magnesium AST ALT Total Protein Albumin Arterial Blood Glucose 188 H Arterial Blood Ionized Calcium 4.4 L Urine WBC (Auto) Urine Creatinine 07/31/21 07/31/21 07/31/21 04:45 04:45 11:28 WBC RBC Hgb Hct RDW Lymph % (Auto) Lymph # (Auto) [place] # (Auto) Seg Neutrophils % Seg Neuts % (Manual) Lymphocytes % (Manual) Nucleated RBC % Seg Neutrophils # Seg Neutrophils # Man Lymphocytes # (Manual) Monocytes # (Manual) D-Dimer ABG pH POC ABG pCO2 POC ABG pO2 ABG Hemoglobin ABG Oxyhemoglobin ABG Sodium ABG Potassium ABG Chloride ABG Glucose Carboxyhemoglobin Sodium Potassium 3.4 L Chloride Carbon Dioxide BUN 61 H Creatinine 2.6 H D Glucose 176 H POC Glucose 195 H 245 H Lactic Acid Calcium Magnesium AST ALT Total Protein Albumin Arterial Blood Glucose Arterial Blood Ionized Calcium Urine WBC (Auto) Urine Creatinine 07/31/21 07/31/21 08/01/21 17:32 23:58 01:00 WBC RBC Hgb Hct RDW Lymph % (Auto) Lymph # (Auto) [place] # (Auto) Seg Neutrophils % Seg Neuts % (Manual) Lymphocytes % (Manual) Nucleated RBC % Seg Neutrophils # Seg Neutrophils # Man Lymphocytes # (Manual) Monocytes # (Manual) D-Dimer ABG pH POC ABG pCO2 POC ABG pO2 ABG Hemoglobin ABG Oxyhemoglobin ABG Sodium ABG Potassium ABG Chloride ABG Glucose 284 H Carboxyhemoglobin 0.3 L Sodium Potassium Chloride Carbon Dioxide BUN Creatinine Glucose POC Glucose 251 H 294 H Lactic Acid Calcium Magnesium AST ALT Total Protein Albumin Arterial Blood Glucose 284 H Arterial Blood Ionized Calcium Urine WBC (Auto) Urine Creatinine 08/01/21 08/01/21 08/01/21 05:50 05:50 06:11 WBC 16.2 H RBC Hgb Hct RDW 15.5 H Lymph % (Auto) Lymph # (Auto) [place] # (Auto) Seg Neutrophils % Seg Neuts % (Manual) 93.0 H Lymphocytes % (Manual) 2.0 L Nucleated RBC % 3.0 H Seg Neutrophils # Seg Neutrophils # Man 15.1 H Lymphocytes # (Manual) 0.3 L Monocytes # (Manual) D-Dimer ABG pH POC ABG pCO2 POC ABG pO2 ABG Hemoglobin ABG Oxyhemoglobin ABG Sodium ABG Potassium ABG Chloride ABG Glucose Carboxyhemoglobin Sodium Potassium Chloride Carbon Dioxide BUN 64 H Creatinine 1.9 H Glucose 277 H POC Glucose 256 H Lactic Acid Calcium Magnesium AST ALT Total Protein Albumin Arterial Blood Glucose Arterial Blood Ionized Calcium Urine WBC (Auto) Urine Creatinine 08/01/21 08/01/21 08/01/21 11:39 17:25 23:53 WBC RBC Hgb Hct RDW Lymph % (Auto) Lymph # (Auto) [place] # (Auto) Seg Neutrophils % Seg Neuts % (Manual) Lymphocytes % (Manual) Nucleated RBC % Seg Neutrophils # Seg Neutrophils # Man Lymphocytes # (Manual) Monocytes # (Manual) D-Dimer ABG pH POC ABG pCO2 POC ABG pO2 ABG Hemoglobin ABG Oxyhemoglobin ABG Sodium ABG Potassium ABG Chloride ABG Glucose Carboxyhemoglobin Sodium Potassium Chloride Carbon Dioxide BUN Creatinine Glucose POC Glucose 289 H 275 H 327 H Lactic Acid Calcium Magnesium AST ALT Total Protein Albumin Arterial Blood Glucose Arterial Blood Ionized Calcium Urine WBC (Auto) Urine Creatinine 08/01/21 08/02/21 08/02/21 Unknown 04:00 12:03 WBC RBC Hgb Hct RDW Lymph % (Auto) Lymph # (Auto) [place] # (Auto) Seg Neutrophils % Seg Neuts % (Manual) Lymphocytes % (Manual) Nucleated RBC % Seg Neutrophils # Seg Neutrophils # Man Lymphocytes # (Manual) Monocytes # (Manual) D-Dimer ABG pH POC ABG pCO2 POC ABG pO2 ABG Hemoglobin ABG Oxyhemoglobin ABG Sodium ABG Potassium ABG Chloride ABG Glucose 325 H Carboxyhemoglobin 0.4 L Sodium Potassium Chloride Carbon Dioxide BUN Creatinine Glucose POC Glucose 209 H Lactic Acid Calcium Magnesium AST ALT Total Protein Albumin Arterial Blood Glucose 325 H Arterial Blood Ionized Calcium Urine WBC (Auto) Urine Creatinine 125.6 H 08/02/21 08/02/21 08/02/21 15:30 17:03 23:17 WBC RBC Hgb Hct RDW Lymph % (Auto) Lymph # (Auto) [place] # (Auto) Seg Neutrophils % Seg Neuts % (Manual) Lymphocytes % (Manual) Nucleated RBC % Seg Neutrophils # Seg Neutrophils # Man Lymphocytes # (Manual) Monocytes # (Manual) D-Dimer ABG pH POC ABG pCO2 POC ABG pO2 ABG Hemoglobin ABG Oxyhemoglobin ABG Sodium ABG Potassium ABG Chloride ABG Glucose Carboxyhemoglobin Sodium Potassium Chloride Carbon Dioxide BUN Creatinine Glucose POC Glucose 210 H 265 H Lactic Acid Calcium Magnesium AST ALT Total Protein Albumin Arterial Blood Glucose Arterial Blood Ionized Calcium Urine WBC (Auto) 47.0 H Urine Creatinine 08/02/21 08/02/21 08/03/21 Unknown Unknown 04:17 WBC 14.1 H RBC Hgb Hct RDW 16.3 H Lymph % (Auto) 5.1 L Lymph # (Auto) 0.7 L [place] # (Auto) 0.9 H Seg Neutrophils % 88.7 H Seg Neuts % (Manual) Lymphocytes % (Manual) Nucleated RBC % Seg Neutrophils # 12.5 H Seg Neutrophils # Man Lymphocytes # (Manual) Monocytes # (Manual) D-Dimer ABG pH POC ABG pCO2 POC ABG pO2 ABG Hemoglobin ABG Oxyhemoglobin ABG Sodium ABG Potassium ABG Chloride ABG Glucose Carboxyhemoglobin Sodium Potassium Chloride Carbon Dioxide BUN 72 H 72 H Creatinine 1.8 H 1.6 H Glucose 307 H 263 H POC Glucose Lactic Acid Calcium Magnesium AST ALT Total Protein Albumin Arterial Blood Glucose Arterial Blood Ionized Calcium Urine WBC (Auto) Urine Creatinine 08/03/21 08/03/21 08/03/21 04:17 05:30 08:30 WBC 13.9 H RBC Hgb Hct RDW 16.0 H Lymph % (Auto) Lymph # (Auto) [place] # (Auto) Seg Neutrophils % Seg Neuts % (Manual) Lymphocytes % (Manual) Nucleated RBC % Seg Neutrophils # Seg Neutrophils # Man Lymphocytes # (Manual) Monocytes # (Manual) D-Dimer ABG pH POC ABG pCO2 POC ABG pO2 ABG Hemoglobin ABG Oxyhemoglobin ABG Sodium ABG Potassium ABG Chloride ABG Glucose Carboxyhemoglobin Sodium Potassium Chloride Carbon Dioxide BUN Creatinine Glucose POC Glucose 280 H Lactic Acid Calcium Magnesium 3.00 H AST ALT Total Protein Albumin Arterial Blood Glucose Arterial Blood Ionized Calcium Urine WBC (Auto) Urine Creatinine 08/03/21 08/03/21 08/03/21 12:14 13:39 15:11 WBC RBC Hgb Hct RDW Lymph % (Auto) Lymph # (Auto) [place] # (Auto) Seg Neutrophils % Seg Neuts % (Manual) Lymphocytes % (Manual) Nucleated RBC % Seg Neutrophils # Seg Neutrophils # Man Lymphocytes # (Manual) Monocytes # (Manual) D-Dimer ABG pH POC ABG pCO2 POC ABG pO2 ABG Hemoglobin ABG Oxyhemoglobin ABG Sodium ABG Potassium ABG Chloride ABG Glucose 306 H Carboxyhemoglobin 0.3 L Sodium Potassium Chloride Carbon Dioxide BUN Creatinine Glucose POC Glucose 287 H Lactic Acid 2.10 H* Calcium Magnesium AST ALT Total Protein Albumin Arterial Blood Glucose 306 H Arterial Blood Ionized Calcium Urine WBC (Auto) Urine Creatinine 08/03/21 08/03/21 08/04/21 16:52 23:08 04:00 WBC RBC Hgb Hct RDW Lymph % (Auto) Lymph # (Auto) [place] # (Auto) Seg Neutrophils % Seg Neuts % (Manual) Lymphocytes % (Manual) Nucleated RBC % Seg Neutrophils # Seg Neutrophils # Man Lymphocytes # (Manual) Monocytes # (Manual) D-Dimer ABG pH POC ABG pCO2 54.3 H POC ABG pO2 82.2 L ABG Hemoglobin ABG Oxyhemoglobin ABG Sodium 145.1 H ABG Potassium 5.0 H ABG Chloride ABG Glucose 316 H Carboxyhemoglobin 0.3 L Sodium Potassium Chloride Carbon Dioxide BUN Creatinine Glucose POC Glucose 282 H 289 H Lactic Acid Calcium Magnesium AST ALT Total Protein Albumin Arterial Blood Glucose 316 H Arterial Blood Ionized Calcium Urine WBC (Auto) Urine Creatinine 08/04/21 08/04/21 08/04/21 04:38 04:38 05:19 WBC 17.7 H RBC Hgb Hct RDW 16.5 H Lymph % (Auto) Lymph # (Auto) [place] # (Auto) Seg Neutrophils % Seg Neuts % (Manual) Lymphocytes % (Manual) Nucleated RBC % Seg Neutrophils # Seg Neutrophils # Man Lymphocytes # (Manual) Monocytes # (Manual) D-Dimer ABG pH POC ABG pCO2 POC ABG pO2 ABG Hemoglobin ABG Oxyhemoglobin ABG Sodium ABG Potassium ABG Chloride ABG Glucose Carboxyhemoglobin Sodium Potassium Chloride 108.3 H Carbon Dioxide BUN 76 H Creatinine 1.4 H Glucose 310 H POC Glucose 268 H Lactic Acid Calcium Magnesium 2.70 H AST ALT Total Protein Albumin Arterial Blood Glucose Arterial Blood Ionized Calcium Urine WBC (Auto) Urine Creatinine 08/04/21 08/04/21 08/04/21 11:48 16:41 23:49 WBC RBC Hgb Hct RDW Lymph % (Auto) Lymph # (Auto) [place] # (Auto) Seg Neutrophils % Seg Neuts % (Manual) Lymphocytes % (Manual) Nucleated RBC % Seg Neutrophils # Seg Neutrophils # Man Lymphocytes # (Manual) Monocytes # (Manual) D-Dimer ABG pH POC ABG pCO2 POC ABG pO2 ABG Hemoglobin ABG Oxyhemoglobin ABG Sodium ABG Potassium ABG Chloride ABG Glucose Carboxyhemoglobin Sodium Potassium Chloride Carbon Dioxide BUN Creatinine Glucose POC Glucose 197 H 208 H 209 H Lactic Acid Calcium Magnesium AST ALT Total Protein Albumin Arterial Blood Glucose Arterial Blood Ionized Calcium Urine WBC (Auto) Urine Creatinine 08/05/21 08/05/21 08/05/21 04:00 04:50 04:50 WBC 19.0 H RBC Hgb Hct RDW 17.0 H Lymph % (Auto) Lymph # (Auto) [place] # (Auto) Seg Neutrophils % Seg Neuts % (Manual) 75.0 H Lymphocytes % (Manual) 2.0 L Nucleated RBC % Seg Neutrophils # Seg Neutrophils # Man 14.3 H Lymphocytes # (Manual) 0.4 L Monocytes # (Manual) 1.0 H D-Dimer ABG pH 7.314 L POC ABG pCO2 48.9 H POC ABG pO2 ABG Hemoglobin ABG Oxyhemoglobin ABG Sodium ABG Potassium 5.0 H ABG Chloride 109.0 H ABG Glucose 234 H Carboxyhemoglobin 0.4 L Sodium Potassium 5.2 H Chloride 110.0 H Carbon Dioxide BUN 90 H Creatinine 1.8 H Glucose 235 H POC Glucose Lactic Acid Calcium Magnesium 2.60 H AST ALT Total Protein Albumin Arterial Blood Glucose 234 H Arterial Blood Ionized Calcium Urine WBC (Auto) Urine Creatinine 08/05/21 08/05/21 08/05/21 06:05 12:02 17:08 WBC RBC Hgb Hct RDW Lymph % (Auto) Lymph # (Auto) [place] # (Auto) Seg Neutrophils % Seg Neuts % (Manual) Lymphocytes % (Manual) Nucleated RBC % Seg Neutrophils # Seg Neutrophils # Man Lymphocytes # (Manual) Monocytes # (Manual) D-Dimer ABG pH POC ABG pCO2 POC ABG pO2 ABG Hemoglobin ABG Oxyhemoglobin ABG Sodium ABG Potassium ABG Chloride ABG Glucose Carboxyhemoglobin Sodium Potassium Chloride Carbon Dioxide BUN Creatinine Glucose POC Glucose 225 H 193 H 263 H Lactic Acid Calcium Magnesium AST ALT Total Protein Albumin Arterial Blood Glucose Arterial Blood Ionized Calcium Urine WBC (Auto) Urine Creatinine 08/05/21 08/06/21 08/06/21 23:34 05:00 05:00 WBC 16.8 H RBC 3.64 L Hgb Hct RDW 16.6 H Lymph % (Auto) Lymph # (Auto) [place] # (Auto) Seg Neutrophils % Seg Neuts % (Manual) Lymphocytes % (Manual) Nucleated RBC % Seg Neutrophils # Seg Neutrophils # Man Lymphocytes # (Manual) Monocytes # (Manual) D-Dimer ABG pH POC ABG pCO2 POC ABG pO2 ABG Hemoglobin ABG Oxyhemoglobin ABG Sodium ABG Potassium ABG Chloride ABG Glucose Carboxyhemoglobin Sodium Potassium Chloride 109.3 H Carbon Dioxide BUN 89 H Creatinine 1.6 H Glucose 197 H POC Glucose 224 H Lactic Acid Calcium 8.2 L Magnesium AST ALT Total Protein Albumin Arterial Blood Glucose Arterial Blood Ionized Calcium Urine WBC (Auto) Urine Creatinine 08/06/21 08/06/21 08/06/21 05:26 11:38 16:30 WBC RBC Hgb Hct RDW Lymph % (Auto) Lymph # (Auto) [place] # (Auto) Seg Neutrophils % Seg Neuts % (Manual) Lymphocytes % (Manual) Nucleated RBC % Seg Neutrophils # Seg Neutrophils # Man Lymphocytes # (Manual) Monocytes # (Manual) D-Dimer ABG pH POC ABG pCO2 POC ABG pO2 ABG Hemoglobin ABG Oxyhemoglobin ABG Sodium ABG Potassium ABG Chloride ABG Glucose Carboxyhemoglobin Sodium Potassium Chloride Carbon Dioxide BUN Creatinine Glucose POC Glucose 168 H 160 H 135 H Lactic Acid Calcium Magnesium AST ALT Total Protein Albumin Arterial Blood Glucose Arterial Blood Ionized Calcium Urine WBC (Auto) Urine Creatinine 08/06/21 08/07/21 08/07/21 23:08 04:00 04:00 WBC 13.6 H RBC 3.30 L Hgb 9.5 L Hct 29.2 L RDW 16.7 H Lymph % (Auto) Lymph # (Auto) [place] # (Auto) Seg Neutrophils % Seg Neuts % (Manual) Lymphocytes % (Manual) Nucleated RBC % Seg Neutrophils # Seg Neutrophils # Man Lymphocytes # (Manual) Monocytes # (Manual) D-Dimer ABG pH POC ABG pCO2 POC ABG pO2 ABG Hemoglobin ABG Oxyhemoglobin ABG Sodium ABG Potassium ABG Chloride ABG Glucose Carboxyhemoglobin Sodium 146 H Potassium Chloride 111.4 H Carbon Dioxide BUN 78 H Creatinine 1.5 H Glucose 143 H POC Glucose 125 H Lactic Acid Calcium 8.2 L Magnesium AST ALT Total Protein Albumin Arterial Blood Glucose Arterial Blood Ionized Calcium Urine WBC (Auto) Urine Creatinine 08/07/21 08/07/21 08/07/21 04:00 05:16 12:12 WBC RBC Hgb Hct RDW Lymph % (Auto) Lymph # (Auto) [place] # (Auto) Seg Neutrophils % Seg Neuts % (Manual) Lymphocytes % (Manual) Nucleated RBC % Seg Neutrophils # Seg Neutrophils # Man Lymphocytes # (Manual) Monocytes # (Manual) D-Dimer ABG pH POC ABG pCO2 POC ABG pO2 80.1 L ABG Hemoglobin 9.8 L ABG Oxyhemoglobin ABG Sodium ABG Potassium ABG Chloride 111.0 H ABG Glucose 157 H Carboxyhemoglobin 0.3 L Sodium Potassium Chloride Carbon Dioxide BUN Creatinine Glucose POC Glucose 144 H 125 H Lactic Acid Calcium Magnesium AST ALT Total Protein Albumin Arterial Blood Glucose 157 H Arterial Blood Ionized Calcium 4.5 L Urine WBC (Auto) Urine Creatinine 08/07/21 08/08/21 08/08/21 23:20 04:47 06:00 WBC 13.8 H RBC 3.19 L Hgb 9.3 L Hct 28.4 L RDW 16.4 H Lymph % (Auto) Lymph # (Auto) [place] # (Auto) Seg Neutrophils % Seg Neuts % (Manual) Lymphocytes % (Manual) Nucleated RBC % Seg Neutrophils # Seg Neutrophils # Man Lymphocytes # (Manual) Monocytes # (Manual) D-Dimer ABG pH POC ABG pCO2 POC ABG pO2 ABG Hemoglobin ABG Oxyhemoglobin ABG Sodium ABG Potassium ABG Chloride ABG Glucose Carboxyhemoglobin Sodium Potassium Chloride Carbon Dioxide BUN Creatinine Glucose POC Glucose 118 H 130 H Lactic Acid Calcium Magnesium AST ALT Total Protein Albumin Arterial Blood Glucose Arterial Blood Ionized Calcium Urine WBC (Auto) Urine Creatinine 08/08/21 08/08/21 08/08/21 06:00 11:33 17:54 WBC RBC Hgb Hct RDW Lymph % (Auto) Lymph # (Auto) [place] # (Auto) Seg Neutrophils % Seg Neuts % (Manual) Lymphocytes % (Manual) Nucleated RBC % Seg Neutrophils # Seg Neutrophils # Man Lymphocytes # (Manual) Monocytes # (Manual) D-Dimer ABG pH POC ABG pCO2 POC ABG pO2 ABG Hemoglobin ABG Oxyhemoglobin ABG Sodium ABG Potassium ABG Chloride ABG Glucose Carboxyhemoglobin Sodium 147 H Potassium Chloride 112.4 H Carbon Dioxide BUN 71 H Creatinine 1.4 H Glucose 124 H POC Glucose 126 H 124 H Lactic Acid Calcium Magnesium AST ALT Total Protein Albumin Arterial Blood Glucose Arterial Blood Ionized Calcium Urine WBC (Auto) Urine Creatinine 08/08/21 08/09/21 08/09/21 23:41 06:06 10:00 WBC RBC Hgb Hct RDW Lymph % (Auto) Lymph # (Auto) [place] # (Auto) Seg Neutrophils % Seg Neuts % (Manual) Lymphocytes % (Manual) Nucleated RBC % Seg Neutrophils # Seg Neutrophils # Man Lymphocytes # (Manual) Monocytes # (Manual) D-Dimer ABG pH POC ABG pCO2 POC ABG pO2 ABG Hemoglobin ABG Oxyhemoglobin ABG Sodium ABG Potassium ABG Chloride ABG Glucose Carboxyhemoglobin Sodium 146 H Potassium Chloride 111.3 H Carbon Dioxide BUN 72 H Creatinine 1.5 H Glucose 119 H POC Glucose 119 H 127 H Lactic Acid Calcium Magnesium AST ALT 69 H Total Protein 5.2 L Albumin 2.6 L Arterial Blood Glucose Arterial Blood Ionized Calcium Urine WBC (Auto) Urine Creatinine 08/09/21 08/09/21 08/09/21 10:00 11:34 16:50 WBC 13.0 H RBC 2.88 L Hgb 8.5 L Hct 25.8 L RDW 16.5 H Lymph % (Auto) Lymph # (Auto) [place] # (Auto) Seg Neutrophils % Seg Neuts % (Manual) Lymphocytes % (Manual) Nucleated RBC % Seg Neutrophils # Seg Neutrophils # Man Lymphocytes # (Manual) Monocytes # (Manual) D-Dimer ABG pH POC ABG pCO2 POC ABG pO2 ABG Hemoglobin ABG Oxyhemoglobin ABG Sodium ABG Potassium ABG Chloride ABG Glucose Carboxyhemoglobin Sodium Potassium Chloride Carbon Dioxide BUN Creatinine Glucose POC Glucose 114 H 117 H Lactic Acid Calcium Magnesium AST ALT Total Protein Albumin Arterial Blood Glucose Arterial Blood Ionized Calcium Urine WBC (Auto) Urine Creatinine 08/10/21 08/10/21 08/10/21 00:12 05:20 05:20 WBC 13.2 H RBC 2.92 L Hgb 8.4 L Hct 25.9 L RDW 16.7 H Lymph % (Auto) Lymph # (Auto) [place] # (Auto) Seg Neutrophils % Seg Neuts % (Manual) Lymphocytes % (Manual) Nucleated RBC % Seg Neutrophils # Seg Neutrophils # Man Lymphocytes # (Manual) Monocytes # (Manual) D-Dimer ABG pH POC ABG pCO2 POC ABG pO2 ABG Hemoglobin ABG Oxyhemoglobin ABG Sodium ABG Potassium ABG Chloride ABG Glucose Carboxyhemoglobin Sodium 147 H Potassium Chloride 111.8 H Carbon Dioxide BUN 68 H Creatinine 1.4 H Glucose POC Glucose 114 H Lactic Acid Calcium Magnesium AST ALT Total Protein Albumin Arterial Blood Glucose Arterial Blood Ionized Calcium Urine WBC (Auto) Urine Creatinine 08/10/21 08/10/21 08/11/21 17:52 18:23 02:51 WBC RBC Hgb Hct RDW Lymph % (Auto) Lymph # (Auto) [place] # (Auto) Seg Neutrophils % Seg Neuts % (Manual) Lymphocytes % (Manual) Nucleated RBC % Seg Neutrophils # Seg Neutrophils # Man Lymphocytes # (Manual) Monocytes # (Manual) D-Dimer ABG pH POC ABG pCO2 POC ABG pO2 ABG Hemoglobin 8.7 L ABG Oxyhemoglobin ABG Sodium ABG Potassium ABG Chloride 111.0 H ABG Glucose Carboxyhemoglobin 0.2 L Sodium Potassium Chloride Carbon Dioxide BUN Creatinine Glucose POC Glucose 55 L 133 H Lactic Acid Calcium Magnesium AST ALT Total Protein Albumin Arterial Blood Glucose Arterial Blood Ionized Calcium 4.5 L Urine WBC (Auto) Urine Creatinine 08/11/21 08/11/21 08/11/21 04:30 11:36 17:11 WBC RBC Hgb Hct RDW Lymph % (Auto) Lymph # (Auto) [place] # (Auto) Seg Neutrophils % Seg Neuts % (Manual) Lymphocytes % (Manual) Nucleated RBC % Seg Neutrophils # Seg Neutrophils # Man Lymphocytes # (Manual) Monocytes # (Manual) D-Dimer ABG pH POC ABG pCO2 POC ABG pO2 ABG Hemoglobin ABG Oxyhemoglobin ABG Sodium ABG Potassium ABG Chloride ABG Glucose Carboxyhemoglobin Sodium Potassium Chloride 110.0 H Carbon Dioxide BUN 59 H Creatinine Glucose POC Glucose 116 H 115 H Lactic Acid Calcium 8.3 L Magnesium AST ALT 64 H Total Protein 5.5 L Albumin 2.6 L Arterial Blood Glucose Arterial Blood Ionized Calcium Urine WBC (Auto) Urine Creatinine 08/11/21 08/11/21 08/12/21 23:18 Unknown 05:05 WBC 12.2 H RBC 2.81 L Hgb 8.4 L Hct 25.4 L RDW 17.0 H Lymph % (Auto) Lymph # (Auto) [place] # (Auto) Seg Neutrophils % Seg Neuts % (Manual) Lymphocytes % (Manual) Nucleated RBC % Seg Neutrophils # Seg Neutrophils # Man Lymphocytes # (Manual) Monocytes # (Manual) D-Dimer ABG pH POC ABG pCO2 POC ABG pO2 ABG Hemoglobin ABG Oxyhemoglobin ABG Sodium ABG Potassium ABG Chloride ABG Glucose Carboxyhemoglobin Sodium Potassium Chloride Carbon Dioxide BUN Creatinine Glucose POC Glucose 126 H 131 H Lactic Acid Calcium Magnesium AST ALT Total Protein Albumin Arterial Blood Glucose Arterial Blood Ionized Calcium Urine WBC (Auto) Urine Creatinine 08/12/21 08/12/21 08/12/21 12:14 17:19 21:41 WBC 16.5 H RBC 3.04 L Hgb 8.9 L Hct 27.3 L RDW 17.0 H Lymph % (Auto) 9.0 L Lymph # (Auto) [place] # (Auto) 1.1 H Seg Neutrophils % 83.7 H Seg Neuts % (Manual) Lymphocytes % (Manual) Nucleated RBC % Seg Neutrophils # 13.8 H Seg Neutrophils # Man Lymphocytes # (Manual) Monocytes # (Manual) D-Dimer ABG pH POC ABG pCO2 POC ABG pO2 ABG Hemoglobin ABG Oxyhemoglobin ABG Sodium ABG Potassium ABG Chloride ABG Glucose Carboxyhemoglobin Sodium Potassium Chloride Carbon Dioxide BUN Creatinine Glucose POC Glucose 123 H 129 H Lactic Acid Calcium Magnesium AST ALT Total Protein Albumin Arterial Blood Glucose Arterial Blood Ionized Calcium Urine WBC (Auto) Urine Creatinine 08/12/21 08/12/21 08/13/21 21:41 23:26 05:24 WBC RBC Hgb Hct RDW Lymph % (Auto) Lymph # (Auto) [place] # (Auto) Seg Neutrophils % Seg Neuts % (Manual) Lymphocytes % (Manual) Nucleated RBC % Seg Neutrophils # Seg Neutrophils # Man Lymphocytes # (Manual) Monocytes # (Manual) D-Dimer ABG pH POC ABG pCO2 POC ABG pO2 ABG Hemoglobin ABG Oxyhemoglobin ABG Sodium ABG Potassium ABG Chloride ABG Glucose Carboxyhemoglobin Sodium 147 H Potassium Chloride 110.7 H Carbon Dioxide BUN 48 H Creatinine Glucose 147 H POC Glucose 133 H 109 H Lactic Acid Calcium Magnesium AST ALT Total Protein Albumin Arterial Blood Glucose Arterial Blood Ionized Calcium Urine WBC (Auto) Urine Creatinine 08/13/21 08/13/21 08/13/21 05:43 11:36 18:00 WBC RBC Hgb Hct RDW Lymph % (Auto) Lymph # (Auto) [place] # (Auto) Seg Neutrophils % Seg Neuts % (Manual) Lymphocytes % (Manual) Nucleated RBC % Seg Neutrophils # Seg Neutrophils # Man Lymphocytes # (Manual) Monocytes # (Manual) D-Dimer ABG pH POC ABG pCO2 POC ABG pO2 76.8 L ABG Hemoglobin 8.6 L ABG Oxyhemoglobin ABG Sodium ABG Potassium ABG Chloride 112.0 H ABG Glucose 126 H Carboxyhemoglobin 0.4 L Sodium Potassium Chloride Carbon Dioxide BUN Creatinine Glucose POC Glucose 127 H 128 H Lactic Acid Calcium Magnesium AST ALT Total Protein Albumin Arterial Blood Glucose 126 H Arterial Blood Ionized Calcium 4.4 L Urine WBC (Auto) Urine Creatinine 08/13/21 08/14/21 08/14/21 23:27 04:00 04:00 WBC RBC 2.65 L Hgb 8.1 L Hct 24.0 L RDW 17.1 H Lymph % (Auto) Lymph # (Auto) [place] # (Auto) Seg Neutrophils % Seg Neuts % (Manual) Lymphocytes % (Manual) Nucleated RBC % Seg Neutrophils # Seg Neutrophils # Man Lymphocytes # (Manual) Monocytes # (Manual) D-Dimer ABG pH POC ABG pCO2 POC ABG pO2 ABG Hemoglobin ABG Oxyhemoglobin ABG Sodium ABG Potassium ABG Chloride ABG Glucose Carboxyhemoglobin Sodium 146 H Potassium Chloride 108.7 H Carbon Dioxide 31 H BUN 38 H Creatinine Glucose 115 H POC Glucose 125 H Lactic Acid Calcium Magnesium AST ALT Total Protein 5.8 L Albumin 2.6 L Arterial Blood Glucose Arterial Blood Ionized Calcium Urine WBC (Auto) Urine Creatinine 08/14/21 08/14/21 08/15/21 05:24 11:34 05:16 WBC RBC Hgb Hct RDW Lymph % (Auto) Lymph # (Auto) [place] # (Auto) Seg Neutrophils % Seg Neuts % (Manual) Lymphocytes % (Manual) Nucleated RBC % Seg Neutrophils # Seg Neutrophils # Man Lymphocytes # (Manual) Monocytes # (Manual) D-Dimer ABG pH POC ABG pCO2 POC ABG pO2 ABG Hemoglobin ABG Oxyhemoglobin ABG Sodium ABG Potassium ABG Chloride ABG Glucose Carboxyhemoglobin Sodium Potassium Chloride Carbon Dioxide BUN Creatinine Glucose POC Glucose 126 H 126 H 110 H Lactic Acid Calcium Magnesium AST ALT Total Protein Albumin Arterial Blood Glucose Arterial Blood Ionized Calcium Urine WBC (Auto) Urine Creatinine 08/15/21 08/15/21 08/15/21 11:37 Unknown Unknown WBC RBC 2.53 L Hgb 7.7 L Hct 23.0 L RDW 17.0 H Lymph % (Auto) 12.5 L Lymph # (Auto) 1.0 L [place] # (Auto) Seg Neutrophils % 80.4 H Seg Neuts % (Manual) Lymphocytes % (Manual) Nucleated RBC % Seg Neutrophils # Seg Neutrophils # Man Lymphocytes # (Manual) Monocytes # (Manual) D-Dimer ABG pH POC ABG pCO2 POC ABG pO2 ABG Hemoglobin ABG Oxyhemoglobin ABG Sodium ABG Potassium ABG Chloride ABG Glucose Carboxyhemoglobin Sodium Potassium Chloride 107.2 H Carbon Dioxide BUN 36 H Creatinine Glucose 109 H POC Glucose 106 H Lactic Acid Calcium Magnesium AST ALT 63 H Total Protein 5.5 L Albumin 2.4 L Arterial Blood Glucose Arterial Blood Ionized Calcium Urine WBC (Auto) Urine Creatinine Allied health notes reviewed: RT
--- NOTE | 2021-08-15 13:57 | XRay Report ---
CHEST 1 VIEW INDICATION: Resp failure. COMPARISON: 08/12/2021 FINDINGS: Support devices: Stable Heart: Within normal limits. Lungs/Pleura: There is now partial aeration of the right lung consistent with improvement in right didier ng atelectasis or infiltrate. Subtle airspace opacities at the left lung base are stable. No pneumoth orax. Additional findings: None. IMPRESSION: Improved aeration of the right lung as described which probably represents decreased atelectasis. Stable airspace opacities at the left lung base. Signer Name: Stanislaw Go Jr, MD Signed: 08/15/2021 1:52 PM Workstation Name: [id number]
--- NOTE | 2021-08-15 19:16 | Progress Note ---
<AMYKIMMY CalvoEtelvina - Last Filed: 08/15/21 19:18> Assessment and Plan Assessment and plan: This is a 66-year-old female with HTN, DM, HLD and COPD admitted for acute hypoxic respiratory failure, COPD exacerbation, pneumonia and left lower leg DVT Neuro: Acute metabolic encephalopathy; agitation -Sedated with Versed and fentanyl, Seroquel -RASS goal -2 to -3 -Avoid delirium -Reorientation as needed -Bilateral restraints for safety -Daily SAT limited by agitation hypoxia Cardio: ST, h/o HTN, s/p cardiac arrest, h/o HLD -Echocardiogram completed-> EF 50 to 55% with mild diastolic dysfunction -Blood pressure monitor per protocol -MAP goal > 65 -Patient had cardiac arrest on 07/29 and was intubated -Antihypertensives prn Respiratory: Acute hypoxic respiratory failure, COPD exacerbation; lung ca with mediastinal mass -CCM consulted, appreciate recommendations - S/P trach and PEG 08/10 -S/p emergent surgery for control of hemorrhage from tracheostomy site on 08/12/2021 -VAP bundle -Daily SBT and SAT trials as tolerated -intubated with 7.50 ETT at 22 at the lips on 07/29 see RT flow sheet for vent settings -Daily ABG and CXR -Continue SPO2 monitoring -A.m. vent settings assist control rate 16 tidal volume 450 PEEP 8 FiO2 30% GI: MO -NTR consult for tube feeding -BR: MiraLAX, Senokot -24-hour +333 mL -PPI : Acute kidney injury likely 2/2 vasomotor nephropathy/pre-renal; hyperchloremia -Nephrology consulted, appreciate recommendations -08/01 FeNA calculated at 0.13-> indicating prerenal -trend Cr -Strict intake and output -Avoid nephrotoxic medications -Renally dose medications -Elizabeth in place; Elizabeth changed on 08/05 -follow and replace electrolytes as needed -Free water flush 200 every 4 ID: Acute sepsis, pneumonia; febrile -ABX therapy: Cefepime -07/27 BC x2 with no growth after 4 days -07/29 tracheal aspirate with no growth -follow culture data -Monitor CBCs and fever curve -febrile to 100 -ID following Heme: Left lower leg DVT, leukocytosis; lung ca with med mass -cont Lovenox- HOLD AT SD -SCDs to bilateral lower extremities while in bed -Trend CBC -evidenced on BLE US -heme onc following Oncology: h/o breast cancer, Lung mass, breast carcinoma with metastasis -CXR shows suspicious nodular density at the left base -08/02 bronchoscopy -Heme/oncology consulted, appreciate recommendations -08/02 bronchoscopy completed; washings and brush sent for cytology, cell count and AFB-> preliminary results obtained, see report -08/02: AFB from bronc negative -08/02 PTH surgical report: [facility], [place], HER-2 negative, TTF1 and HMB 4 5 are not expressed -CEA low -Heme onc following ? transfer to higher level of care oncologist Dr. Wade at [place] at [phone] Endo: h/o DM; stress hyperglycemia -SSI -Avoid hypoglycemia -Lantus, titrate as needed The high probability of a clinically significant, sudden or life threatening deterioration of the [multi] system(s) required my full and direct attention, intervention and personal management. The aggregate critical care time was [60] minutes. This time is in addition to time spent performing reported procedures but includes the following: [x] Data Review and interpretation [x] Patient assessment and monitoring of vital signs [x] Documentation [x] Medication orders and management Disposition Plan: ICU Total Time Spent with Patient (Minutes): 60 History Interval history: This is a 66-year-old female with HTN, DM, HLD and COPD who presented to emergency department on 07/28 with complaints of difficulty in breathing ongoing for the past few days via EMS. En route she was given Solu-Medrol IV magnesium and albuterol nebulizing treatment. Upon arrival to emergency department patient had multiple rounds of embolizing treatments and was subsequently placed on BiPAP with some improvement. Patient has been fully vaccinated. Work-up in the emergency department revealed CXR suspicious for right-sided pneumonia, nodular density in the left base and increased interstitial markings which may be chronic. Patient was admitted to the hospitalist service with electrolyte imbalances, leukocytosis, COPD exacerbation, hypoxia and possible pneumonia. 07/29/2021. Patient seen this morning with Shabbir-Chavira respiration/agonal breathing. RENEE ABREU was called and patient was intubated and placed on mechani sid ventilation. Patient transferred to ICU. Critical care/pulmonary consulted. Patient currently with AC mode rate of 30, FiO2 100%, PEEP of 12. Continue IV antibiotics. Consult ID and oncology for further evaluation. Patient will likely need bronchoscopy for further evaluation of the lung mass. Doppler ultrasound revealedLLE DVT. Start anticoagulation. 07/30/2021. Patient appears much improved and more responsive this morning. Patient currently with AC mode ventilation rate of 24, tidal volume 450, PEEP of 8 and FiO2 35%. Spontaneous breathing trials with possible extubation today p er pulmonary. Bronchoscopy per pulmonary. Continue Lovenox twice daily for DVT. Continue IV antibiotics for sepsis/pneumonia. ID consultation pending. Follow-up [facility], [place] 15-3, [place] 27[place]. 07/31/2021. Echocardiogram reveals left ventricular size and function are normal. EF 50 to 55% with mild diastolic dysfunction. Patient currently with CPAP/PSV trial 11/02. Anticipate extubation today per pulmonary. Bronchoscopy per pulmonary. Continue Lovenox twice daily for DVT. Continue IV antibiotics for sepsis/pneumonia. ID consultation pending. Follow-up [facility], [place] 15-3, [place] 2729. 08/01: ALIYAH 08/02: Patient had a bronchoscopy today. Cell count, cytology and AFB sent from samples. Patient remains sedated on fentanyl and Versed. Patient and daughter Rosana were updated. 08/03: [facility] follow-up on [place] specimens and was informed patient specimens indicate cancer. Communicated to Dr. Abbott and he stated he will update family. 08/04: Patient remains sedated on fentanyl and Versed, patient has moments of agitation with any stimulation. CPAP trial unable to be completed today due to agitation. 08/05: Patient had low urine output overnight and Elizabeth catheter was changed this a.m. with 2 L of urine output received. Patient did have a increase in creatinine however this may have been obstructive process and nephrology is aware. Hematology/oncology spoke to family who wishes for everything to be done despite bronchial washings with cancer cells. [facility] contacted patient's oncologist to help facilitate transfer. We attempted to hold sedation for CPAP trial however patient became extremely agitated and sedation was restarted. 08/06: Surgery consulted for possible trach. Leukocytosis and renal function slowly improving. No acute events reported overnight. 08/07: Creatinine continues to decrease, patient has slight hyper natremia and hyperchloremia. Patient remains on fentanyl and Versed with periods of agitation. Increasing free water flushes. 08-08 improving cr; febrile; family wants full care/full code- heme onc following 9- LOW GRADE FEVERS; FOR TRACH/PEG WED AM 08/10: Patient seen and examined, had Bronchoscopy and Trach and PEG today, follow report. Continue supportive care. 08/11: Patient remains on full vent support. Continue supportive care. 08/12: This morning patient noted with bleeding around trach surgery consulted going for emergent surgery. Labs ordered 08/13: Patient seen and examined, no further bleeding, had surgical intervention yesterday for trach site bleeding. No further bleeding this am. Patient otherwise remains on mechanical ventilation. Leukocytosis mildly worsened today this could be reactive has no fever will monitor mental status is still severely encephalopathic. 08/14/21 patient seen and examined. Lab and medication reviewed. No further bleeding from track site. Hemoglobin is 8.1. Hematocrit 24.2 and WBC 9.7. Continue current management and supportive care. Recheck CBC CMP in the morning 08/15: Overnight patient experienced sinus pericardia with return, will receive MiraLAX and CPAP trial today. Hospitalist Physical - Constitutional Vitals: Temp Pulse Resp BP Pulse Ox 99.6 F 105 H 18 126/27 100 08/15/21 16:00 08/15/21 18:40 08/15/21 18:31 08/15/21 18:40 08/15/21 18:40 General appearance: Present: no acute distress, well-nourished, other - EENT Eyes: Present: PERRL, EOM intact ENT: dentition normal - Neck Neck: Present: normal ROM - Respiratory Respiratory effort: normal Respiratory: bilateral: diminished - Cardiovascular Rhythm: regular Heart Sounds: Present: S1 & S2. Absent: systolic murmur, diastolic murmur - Extremities Extremities: no ischemia, pulses intact, pulses symmetrical, normal temperature, normal color Peripheral Pulses: within normal limits - Abdominal General gastrointestinal: soft, non-tender, non-distended, normal bowel sounds - Integumentary Integumentary: Present: warm, dry - Psychiatric Psychiatric: agitated - Neurologic Neurologic: moves all extremities - Allied Health Allied health notes reviewed: nursing, RT, social work Results - Labs CBC & Chem 7: 08/15/21 Unknown 08/15/21 Unknown Labs: Laboratory Last Values WBC 8.0 K/mm3 (4.5-11.0) 08/15/21 Unknown RBC 2.53 M/mm3 (3.65-5.03) L 08/15/21 Unknown Hgb 7.7 gm/dl (10.1-14.3) L 08/15/21 Unknown Hct 23.0 % (30.3-42.9) L 08/15/21 Unknown MCV 91 fl (79-97) 08/15/21 Unknown MCH 31 pg (28-32) 08/15/21 Unknown MCHC 34 % (30-34) 08/15/21 Unknown RDW 17.0 % (13.2-15.2) H 08/15/21 Unknown Plt Count 243 K/mm3 (140-440) 08/15/21 Unknown Lymph % (Auto) 12.5 % (13.4-35.0) L 08/15/21 Unknown Zavala % (Auto) 5.9 % (0.0-7.3) 08/15/21 Unknown Eos % (Auto) 0.9 % (0.0-4.3) 08/15/21 Unknown Baso % (Auto) 0.3 % (0.0-1.8) 08/15/21 Unknown Lymph # (Auto) 1.0 K/mm3 (1.2-5.4) L 08/15/21 Unknown Zavala # (Auto) 0.5 K/mm3 (0.0-0.8) 08/15/21 Unknown Eos # (Auto) 0.1 K/mm3 (0.0-0.4) 08/15/21 Unknown Baso # (Auto) 0.0 K/mm3 (0.0-0.1) 08/15/21 Unknown Add Manual Diff Complete 08/05/21 04:50 Total Counted 100 08/05/21 04:50 Seg Neutrophils % 80.4 % (40.0-70.0) H 08/15/21 Unknown Seg Neuts % (Manual) 75.0 % (40.0-70.0) H 08/05/21 04:50 Band Neutrophils % 8.0 % 08/05/21 04:50 Lymphocytes % (Manual) 2.0 % (13.4-35.0) L 08/05/21 04:50 Monocytes % (Manual) 5.0 % (0.0-7.3) 08/05/21 04:50 Eosinophils % (Manual) 1.0 % (0.0-4.3) 08/05/21 04:50 Metamyelocytes % 6.0 % 08/05/21 04:50 Myelocytes % 3.0 % 08/05/21 04:50 Nucleated RBC % Not Reportable 08/05/21 04:50 Seg Neutrophils # 6.4 K/mm3 (1.8-7.7) 08/15/21 Unknown Seg Neutrophils # Man 14.3 K/mm3 (1.8-7.7) H 08/05/21 04:50 Band Neutrophils # 1.5 K/mm3 08/05/21 04:50 Lymphocytes # (Manual) 0.4 K/mm3 (1.2-5.4) L 08/05/21 04:50 Abs React Lymphs (Man) 0.0 K/mm3 08/05/21 04:50 Monocytes # (Manual) 1.0 K/mm3 (0.0-0.8) H 08/05/21 04:50 Eosinophils # (Manual) 0.2 K/mm3 (0.0-0.4) 08/05/21 04:50 Basophils # (Manual) 0.0 K/mm3 (0.0-0.1) 08/05/21 04:50 Metamyelocytes # 1.1 K/mm3 08/05/21 04:50 Myelocytes # 0.6 K/mm3 08/05/21 04:50 Promyelocytes # 0.0 K/mm3 08/05/21 04:50 Blast Cells # 0.0 K/mm3 08/05/21 04:50 WBC Morphology Not Reportable 08/05/21 04:50 Hypersegmented Neuts Not Reportable 08/05/21 04:50 Hyposegmented Neuts Not Reportable 08/05/21 04:50 Hypogranular Neuts Not Reportable 08/05/21 04:50 Smudge Cells Not Reportable 08/05/21 04:50 Toxic Granulation Not Reportable 08/05/21 04:50 Toxic Vacuolation Not Reportable 08/05/21 04:50 Dohle Bodies Not Reportable 08/05/21 04:50 Pelger-Huet Anomaly Not Reportable 08/05/21 04:50 Beryl Rods Not Reportable 08/05/21 04:50 Platelet Estimate Consistent w auto 08/05/21 04:50 Clumped Platelets Not Reportable 08/05/21 04:50 Plt Clumps, EDTA Not Reportable 08/05/21 04:50 Large Platelets Not Reportable 08/05/21 04:50 Giant Platelets Not Reportable 08/05/21 04:50 Platelet Satelliting Not Reportable 08/05/21 04:50 Plt Morphology Comment Not Reportable 08/05/21 04:50 RBC Morphology Not Reportable 08/05/21 04:50 Dimorphic RBCs Not Reportable 08/05/21 04:50 Polychromasia Not Reportable 08/05/21 04:50 Hypochromasia Not Reportable 08/05/21 04:50 Poikilocytosis Not Reportable 08/05/21 04:50 Anisocytosis Not Reportable 08/05/21 04:50 Microcytosis Not Reportable 08/05/21 04:50 Macrocytosis Not Reportable 08/05/21 04:50 Spherocytes Not Reportable 08/05/21 04:50 Pappenheimer Bodies Not Reportable 08/05/21 04:50 Sickle Cells Not Reportable 08/05/21 04:50 Target Cells Not Reportable 08/05/21 04:50 Tear Drop Cells Not Reportable 08/05/21 04:50 Ovalocytes Few 08/05/21 04:50 Helmet Cells Not Reportable 08/05/21 04:50 [place] Bodies Not Reportable 08/05/21 04:50 [place] Rings Not Reportable 08/05/21 04:50 [place] Cells Not Reportable 08/05/21 04:50 Bite Cells Not Reportable 08/05/21 04:50 Crenated Cell Not Reportable 08/05/21 04:50 Elliptocytes Not Reportable 08/05/21 04:50 Acanthocytes (Spur) Not Reportable 08/05/21 04:50 Rouleaux Not Reportable 08/05/21 04:50 Hemoglobin C Crystals Not Reportable 08/05/21 04:50 Schistocytes Not Reportable 08/05/21 04:50 Malaria parasites Not Reportable 08/05/21 04:50 Gurmeet Bodies Not Reportable 08/05/21 04:50 Hem Pathologist Commnt No 08/05/21 04:50 PT 14.5 Sec. (12.2-14.9) 08/12/21 21:41 INR 1.08 (0.87-1.13) 08/12/21 21:41 APTT 29.9 Sec. (24.2-36.6) 08/10/21 05:20 D-Dimer 852.47 ng/mlDDU (0-234) H 07/29/21 07:17 ABG pH 7.399 (7.320-7.450) 08/13/21 05:43 POC ABG pCO2 44.3 mmHg (32.0-48.0) 08/13/21 05:43 POC ABG pO2 76.8 mmHg (83-108) L 08/13/21 05:43 POC ABG HCO3 26.8 08/13/21 05:43 ABG O2 Saturation 94.7 (0-100) 08/13/21 05:43 POC ABG Base Excess 1.7 08/13/21 05:43 ABG Hemoglobin 8.6 (12.0-17.5) L 08/13/21 05:43 ABG Oxyhemoglobin 94.0 (94-98) 08/13/21 05:43 ABG Methemoglobin 0.3 (0.0-1.5) 08/13/21 05:43 ABG Sodium 142.6 mmol/L (136.0-145.0) 08/13/21 05:43 ABG Potassium 3.9 mmol/L (3.40-4.50) 08/13/21 05:43 ABG Chloride 112.0 mmol/L (98-107) H 08/13/21 05:43 ABG Glucose 126 mg/dL (65-95) H 08/13/21 05:43 Carboxyhemoglobin 0.4 (0.5-1.5) L 08/13/21 05:43 FiO2 % 30.0 08/13/21 05:43 Sodium 144 mmol/L (137-145) 08/15/21 Unknown Potassium 3.8 mmol/L (3.6-5.0) 08/15/21 Unknown Chloride 107.2 mmol/L (98-107) H 08/15/21 Unknown Carbon Dioxide 30 mmol/L (22-30) 08/15/21 Unknown Anion Gap 11 mmol/L 08/15/21 Unknown BUN 36 mg/dL (7-17) H 08/15/21 Unknown Creatinine 0.8 mg/dL (0.6-1.2) 08/15/21 Unknown Estimated GFR > 60 ml/min 08/15/21 Unknown BUN/Creatinine Ratio 45 % 08/15/21 Unknown Glucose 109 mg/dL (65-100) H 08/15/21 Unknown POC Glucose 110 mg/dL (70-105) H 08/15/21 17:48 Lactic Acid 2.10 mmol/L (0.7-2.0) H* 08/03/21 15:11 Calcium 8.4 mg/dL (8.4-10.2) 08/15/21 Unknown Phosphorus 4.10 mg/dL (2.5-4.5) 08/08/21 06:00 Magnesium 1.70 mg/dL (1.7-2.3) 08/12/21 21:41 Total Bilirubin 0.40 mg/dL (0.1-1.2) 08/15/21 Unknown AST 40 units/L (5-40) 08/15/21 Unknown ALT 63 units/L (7-56) H 08/15/21 Unknown Alkaline Phosphatase 102 units/L (35-129) 08/15/21 Unknown Total Protein 5.5 g/dL (6.3-8.2) L 08/15/21 Unknown Albumin 2.4 g/dL (3.9-5) L 08/15/21 Unknown Albumin/Globulin Ratio 0.8 % 08/15/21 Unknown Carcinoembryonic Ag <0.5 ng/mL (0.0-2.4) 07/31/21 04:45 Arterial Blood Glucose 126 mg/dL (65-95) H 08/13/21 05:43 Arterial Blood Ionized Calcium 4.4 mg/dL (4.6-5.3) L 08/13/21 05:43 Urine Color Yellow (Yellow) 08/08/21 20:27 Urine Turbidity Slightly-cloudy (Clear) 08/08/21 20: Urine pH 5.0 (5.0-7.0) 08/08/21 20: Ur Specific [place] 1.014 (1.003-1.030) 08/08/21 20:27 Urine Protein 30 mg/dl mg/dL (Negative) 08/08/21 20: Urine Glucose (UA) Neg mg/dL (Negative) 08/08/21 20: Urine Ketones Neg mg/dL (Negative) 08/08/21 20: Urine Blood Mod (Negative) 08/08/21 20: Urine Nitrite Neg (Negative) 08/08/21 20: Urine Bilirubin Neg (Negative) 08/08/21 20: Urine Urobilinogen < 2.0 mg/dL (<2.0) 08/08/21 20:27 Ur Leukocyte Esterase Neg (Negative) 08/08/21 20: Urine WBC (Auto) 6.0 /HPF (0.0-6.0) 08/08/21 20: Urine RBC (Auto) 6.0 /HPF (0.0-6.0) 08/08/21 20: U Epithel Cells (Auto) < 1.0 /HPF (0-13.0) 08/08/21 20: Urine Bacteria (Auto) 1+ /HPF (Negative) 08/08/21 20: Urine Mucus Few /HPF 08/08/21 20: Urine Yeast (Budding) 1+ /HPF 08/08/21 20: Urine Creatinine 125.6 mg/dL (0.1-20.0) H 08/01/21 Unknown Urine Sodium 12 mmol/L 08/01/21 Unknown Double Strand DNA Ab 1 IU/mL (<=4) 08/02/21 15:40 Coronavirus (PCR) Negative (Negative) 07/29/21 07:58 Hepatitis A IgM Ab Non-reactive (NonReactive) 08/02/21 15:40 Hep Bs Antigen Nonreactive (Negative) 08/02/21 15:40 Hep B Core IgM Ab Non-reactive (NonReactive) 08/02/21 15:40 Hepatitis C Antibody Non-reactive (NonReactive) 08/02/21 15:40 AFB Identification Negative 08/02/21 14:30 Elizabeth/IV: Voiding Method Indwelling Catheter Active Medications - Current Medications Current Medications: Generic Name Dose Route Start Last Admin Trade Name Freq PRN Reason Stop Dose Admin Acetaminophen 650 mg 07/28/21 02:11 Acetaminophen 325 Mg Tab PO Q6H PRN Pain MILD(1-3)/Fever >100.5/GARCIA Albuterol/Ipratropium 1 ampul 07/28/21 14:00 08/15/21 14:00 Ipratropium/Albuterol Sulfate 3 Ml Ampul.Neb IH Not Given TID DEMIAN Lipase/Protease/Amylase 1 each 07/29/21 13:01 Lipase 10,500/Protease 25,000/Amylase 43,750 (Units) Dr Cap FEEDTUBE PRN PRN For Clogged Feeding Tube Arformoterol Tartrate 15 mcg 07/28/21 20:00 08/15/21 07:48 Arformoterol 15 Mcg/2 Ml Nebu IH 15 mcg Q12HRT DEMIAN Administration Bisacodyl 10 mg 08/07/21 09:50 Bisacodyl 10 Mg Rect Supp WA QDAY PRN Constip unreliev by MOM/or NPO Budesonide 0.5 mg 07/28/21 20:00 08/15/21 07:48 Budesonide 0.5 Mg/2 Ml Nebu IH 0.5 mg Q12HRT DEMIAN Administration Dextrose 50 ml 07/28/21 02:11 08/10/21 18:05 Dextrose 50% In Water (25gm) 50 Ml Syringe IV 20 ml Q30MIN PRN Administration Hypoglycemia Protocol Enoxaparin Sodium 100 mg 08/11/21 10:00 08/15/21 09:55 Enoxaparin 100 Mg/1 Ml Inj SUB-Q 100 mg Q12HR DEMIAN Administration Protocol Famotidine 20 mg 08/15/21 10:00 08/15/21 09:55 Famotidine 20 Mg Tab FEEDTUBE 20 mg BID DEMIAN Administration Fentanyl 50 mcg 07/29/21 10:42 08/04/21 09:05 Fentanyl 100 Mcg/2 Ml Inj IV 50 mcg Q10MIN PRN Administration ANALGESIA Hydralazine HCl 10 mg 07/30/21 14:52 08/03/21 17:31 Hydralazine 20 Mg/1 Ml Inj IV 10 mg Q6H PRN Administration SBP > 165 Hydrophilic Ointment 1 applic 07/29/21 10:42 Lip Therapy Vaseline TP Q2HR PRN Dry Lips Fentanyl Citrate 2,000 mcg in 100 mls @ 5.35 mls/hr 07/29/21 11:00 08/15/21 16:57 Fentanyl Drip Premix IV 2 mcg/kg/hr TITR DEMIAN 10.7 mls/hr Administration Protocol 1 MCG/KG/HR Midazolam HCl 100 mg/ Sodium 100 mls @ 2 mls/hr 07/29/21 11:00 08/15/21 12:30 Chloride IV 2 mg/hr TITR DEMIAN 2 mls/hr Titration Protocol 2 MG/HR Norepinephrine 4 mg in 250 mls @ 7.5 mls/hr 07/29/21 21:00 Levophed Drip 4 Mg/Ns 250 Ml IV TITR DEMIAN Protocol 2 MCG/MIN Insulin Human Lispro 0 unit 07/29/21 12:00 08/15/21 18:33 Insulin Lispro 100 Unit/Ml SUB-Q Not Given Q6HR DEMIAN Protocol Magnesium Hydroxide 30 ml 07/28/21 02:11 Magnesium Hydroxide (Mom) Oral Liqd Udc PO Q4H PRN Constipation Midazolam HCl 2 mg 07/29/21 10:42 08/10/21 20:58 Midazolam 2 Mg/2 Ml Inj IV 2 mg Q10MIN PRN Administration Sedation Multi-Ingred Cream/Lotion/Oil/Oint 1 applic 07/29/21 10:42 Mineral Oil/Petrolatum, White Ophth Oint 3.5 Gm OU Q4HR PRN Dry Eye(s) Oxycodone HCl 15 mg 08/15/21 10:00 08/15/21 16:56 Oxycodone 5 Mg Tab PO 15 mg Q6H DEMIAN Administration Polyethylene Glycol 17 gm 08/11/21 16:00 08/15/21 09:55 Polyethylene Glycol 3350 17 Gm Powder PO 17 gm QDAY DEMIAN Administration Quetiapine Fumarate 200 mg 08/05/21 22:00 08/15/21 09:55 Quetiapine 200 Mg Tab PO 200 mg BID DEMIAN Administration Senna/Docusate Sodium 1 tab 08/11/21 13:00 08/15/21 13:43 Sennosides/Docusate Sodium 8.6/50 Mg Tab FEEDTUBE 1 tab Q8H DEMIAN Administration Simple Syrup 15 ml 07/29/21 13:01 Simple Syrup 15 Ml FEEDTUBE PRN PRN Hypoglycemia Simple Syrup 30 ml 07/29/21 13:01 Simple Syrup 15 Ml FEEDTUBE PRN PRN Hypoglycemia Sodium Bicarbonate 325 mg 07/29/21 13:01 Sodium Bicarbonate 325 Mg Tab FEEDTUBE PRN PRN For Clogged Feeding Tube Sodium Chloride 10 ml 07/28/21 10:00 08/15/21 09:57 Sodium Chloride 0.9% 10 Ml Flush Syringe IV 10 ml BID DEMIAN Administration Sodium Chloride 10 ml 07/28/21 02:05 Sodium Chloride 0.9% 10 Ml Flush Syringe IV PRN PRN LINE FLUSH Nutrition/Malnutrition Assess - Dietary Evaluation Nutrition/Malnutrition Findings: Nutrition Notes Start: 07/28/21 14:44 Freq: Status: Active Protocol: Document 08/11/21 11:28 (Rec: 08/11/21 11:31 [id number]) Nutrition Notes Initial or Follow up Reassessment Current Diagnosis COPD,Diabetes,Hypertension, Respiratory Failure Other Pertinent Diagnosis pneu Current Diet Vital AF at 50 ml/hr Labs/Tests BUN 59 Pertinent Medications Reviewed Height 5 ft Weight 107 kg [place] Body Weight (kg) 45.45 BMI 46.0 Weight Status Morbidly Obese Subjective/Other Information Pt got trach and PEG yesterday . TF resumed at goal and no signs of intolerance noted. RN reports pt without BM and will speak with MD. Percent of energy/protein needs met: 96%/67% Burn Absent Trauma Absent GI Symptoms Constipation,Last BM Current % PO Negligible Minimum of two criteria No #1 Nutrition Diagnosis Inadequate oral intake Diagnosis Progress(for reassessment Continues documentation) Is patient on ventilator? Yes Is Patient Ambulatory and/or Out of Bed No REE-([facility]-confined to bed) 1842.852 Kcal/Kg value to use for calculation 14 Approximate Energy Requirements Using 1498 kcal/Kg Calculation Used for Recommendations Kcal/kg Additional Notes Protein: (up to 2.5g/kg IBW) up to 134g Fluid: 1 ml/kcal or per MD Nutrition Intervention Change Diet Order: continue Nutrition Support: Vital AF 1.2 at 50 ml/hr For hypernatermia, flush 250 ml ml q4h or per MD. Once resolved, flush 100 ml q4h. Kcal 1,440 Protein (gm) 90 Fluid (mL) 973 Goal #1 Meet at least 75% of protein and energy needs via TF Anticipated Discharge Needs: Unable to determine at this time Follow-Up By: 08/16/21 Additional Comments F/u: stable TF, BM <MT BLISS - Last Filed: 08/22/21 07:18> Assessment and Plan Assessment and plan: I saw and evaluated the patient. I agree with the findings and the plan of care as documented in the Nurse Practitioner's~note, with the following corrections and additions. Hospitalist Physical - Constitutional Vitals: Temp Pulse Resp BP Pulse Ox 98.3 F 79 12 124/81 99 08/22/21 03:44 08/22/21 06:16 08/22/21 06:16 08/22/21 06:16 08/22/21 06:16 Results - Labs CBC & Chem 7: 08/22/21 04:00 08/22/21 Unknown Labs: Laboratory Last Values WBC 7.8 K/mm3 (4.5-11.0) 08/22/21 04:00 RBC 2.80 M/mm3 (3.65-5.03) L 08/22/21 04:00 Hgb 8.2 gm/dl (10.1-14.3) L 08/22/21 04:00 Hct 25.4 % (30.3-42.9) L 08/22/21 04:00 MCV 91 fl (79-97) 08/22/21 04:00 MCH 29 pg (28-32) 08/22/21 04:00 MCHC 32 % (30-34) 08/22/21 04:00 RDW 16.9 % (13.2-15.2) H 08/22/21 04:00 Plt Count 465 K/mm3 (140-440) H 08/22/21 04:00 Lymph % (Auto) 12.5 % (13.4-35.0) L 08/15/21 Unknown Zavala % (Auto) 5.9 % (0.0-7.3) 08/15/21 Unknown Eos % (Auto) 0.9 % (0.0-4.3) 08/15/21 Unknown Baso % (Auto) 0.3 % (0.0-1.8) 08/15/21 Unknown Lymph # (Auto) 1.0 K/mm3 (1.2-5.4) L 08/15/21 Unknown Zavala # (Auto) 0.5 K/mm3 (0.0-0.8) 08/15/21 Unknown Eos # (Auto) 0.1 K/mm3 (0.0-0.4) 08/15/21 Unknown Baso # (Auto) 0.0 K/mm3 (0.0-0.1) 08/15/21 Unknown Add Manual Diff Complete 08/05/21 04:50 Total Counted 100 08/05/21 04:50 Seg Neutrophils % 80.4 % (40.0-70.0) H 08/15/21 Unknown Seg Neuts % (Manual) 75.0 % (40.0-70.0) H 08/05/21 04:50 Band Neutrophils % 8.0 % 08/05/21 04:50 Lymphocytes % (Manual) 2.0 % (13.4-35.0) L 08/05/21 04:50 Monocytes % (Manual) 5.0 % (0.0-7.3) 08/05/21 04:50 Eosinophils % (Manual) 1.0 % (0.0-4.3) 08/05/21 04:50 Metamyelocytes % 6.0 % 08/05/21 04:50 Myelocytes % 3.0 % 08/05/21 04:50 Nucleated RBC % Not Reportable 08/05/21 04:50 Seg Neutrophils # 6.4 K/mm3 (1.8-7.7) 08/15/21 Unknown Seg Neutrophils # Man 14.3 K/mm3 (1.8-7.7) H 08/05/21 04:50 Band Neutrophils # 1.5 K/mm3 08/05/21 04:50 Lymphocytes # (Manual) 0.4 K/mm3 (1.2-5.4) L 08/05/21 04:50 Abs React Lymphs (Man) 0.0 K/mm3 08/05/21 04:50 Monocytes # (Manual) 1.0 K/mm3 (0.0-0.8) H 08/05/21 04:50 Eosinophils # (Manual) 0.2 K/mm3 (0.0-0.4) 08/05/21 04:50 Basophils # (Manual) 0.0 K/mm3 (0.0-0.1) 08/05/21 04:50 Metamyelocytes # 1.1 K/mm3 08/05/21 04:50 Myelocytes # 0.6 K/mm3 08/05/21 04:50 Promyelocytes # 0.0 K/mm3 08/05/21 04:50 Blast Cells # 0.0 K/mm3 08/05/21 04:50 WBC Morphology Not Reportable 08/05/21 04:50 Hypersegmented Neuts Not Reportable 08/05/21 04:50 Hyposegmented Neuts Not Reportable 08/05/21 04:50 Hypogranular Neuts Not Reportable 08/05/21 04:50 Smudge Cells Not Reportable 08/05/21 04:50 Toxic Granulation Not Reportable 08/05/21 04:50 Toxic Vacuolation Not Reportable 08/05/21 04:50 Dohle Bodies Not Reportable 08/05/21 04:50 Pelger-Huet Anomaly Not Reportable 08/05/21 04:50 Beryl Rods Not Reportable 08/05/21 04:50 Platelet Estimate Consistent w auto 08/05/21 04:50 Clumped Platelets Not Reportable 08/05/21 04:50 Plt Clumps, EDTA Not Reportable 08/05/21 04:50 Large Platelets Not Reportable 08/05/21 04:50 Giant Platelets Not Reportable 08/05/21 04:50 Platelet Satelliting Not Reportable 08/05/21 04:50 Plt Morphology Comment Not Reportable 08/05/21 04:50 RBC Morphology Not Reportable 08/05/21 04:50 Dimorphic RBCs Not Reportable 08/05/21 04:50 Polychromasia Not Reportable 08/05/21 04:50 Hypochromasia Not Reportable 08/05/21 04:50 Poikilocytosis Not Reportable 08/05/21 04:50 Anisocytosis Not Reportable 08/05/21 04:50 Microcytosis Not Reportable 08/05/21 04:50 Macrocytosis Not Reportable 08/05/21 04:50 Spherocytes Not Reportable 08/05/21 04:50 Pappenheimer Bodies Not Reportable 08/05/21 04:50 Sickle Cells Not Reportable 08/05/21 04:50 Target Cells Not Reportable 08/05/21 04:50 Tear Drop Cells Not Reportable 08/05/21 04:50 Ovalocytes Few 08/05/21 04:50 Helmet Cells Not Reportable 08/05/21 04:50 [place] Bodies Not Reportable 08/05/21 04:50 [place] Rings Not Reportable 08/05/21 04:50 [place] Cells Not Reportable 08/05/21 04:50 Bite Cells Not Reportable 08/05/21 04:50 Crenated Cell Not Reportable 08/05/21 04:50 Elliptocytes Not Reportable 08/05/21 04:50 Acanthocytes (Spur) Not Reportable 08/05/21 04:50 Rouleaux Not Reportable 08/05/21 04:50 Hemoglobin C Crystals Not Reportable 08/05/21 04:50 Schistocytes Not Reportable 08/05/21 04:50 Malaria parasites Not Reportable 08/05/21 04:50 Gurmeet Bodies Not Reportable 08/05/21 04:50 Hem Pathologist Commnt No 08/05/21 04:50 PT 14.5 Sec. (12.2-14.9) 08/12/21 21:41 INR 1.08 (0.87-1.13) 08/12/21 21:41 APTT 29.9 Sec. (24.2-36.6) 08/10/21 05:20 D-Dimer 852.47 ng/mlDDU (0-234) H 07/29/21 07:17 ABG pH 7.401 (7.320-7.450) 08/19/21 13:45 POC ABG pCO2 39.8 mmHg (32.0-48.0) 08/19/21 13:45 ABG pCO2 46.6 mm Hg 08/17/21 21:23 POC ABG pO2 145.3 mmHg (83-108) H 08/19/21 13:45 ABG pO2 122.5 mm Hg (80.0-90.0) H 08/17/21 21:23 POC ABG HCO3 24.2 08/19/21 13:45 ABG HCO3 24.4 mmol/L (20.0-26.0) 08/17/21 21:23 ABG O2 Saturation 99.0 (0-100) 08/19/21 13:45 ABG O2 Content 10.6 (0.0-44) 08/17/21 21:23 POC ABG Base Excess -0.5 08/19/21 13:45 ABG Base Excess -1.4 mmol/L (-2.0-3.0) 08/17/21 21:23 ABG Hemoglobin 10.0 (12.0-17.5) L 08/19/21 13:45 ABG Oxyhemoglobin 98.4 (94-98) H 08/19/21 13:45 ABG Carboxyhemoglobin 1.8 % (0.0-5.0) 08/17/21 21:23 ABG Methemoglobin 0.3 (0.0-1.5) 08/19/21 13:45 ABG Sodium 134.0 mmol/L (136.0-145.0) L 08/19/21 13:45 ABG Potassium 4.2 mmol/L (3.40-4.50) 08/19/21 13:45 ABG Chloride 102.0 mmol/L (98-107) 08/19/21 13:45 ABG Glucose 141 mg/dL (65-95) H 08/19/21 13:45 Oxyhemoglobin 96.2 % (95.0-99.0) 08/17/21 21:23 Carboxyhemoglobin 0.3 (0.5-1.5) L 08/19/21 13:45 FiO2 30 % 08/17/21 21:23 FiO2 % 30.0 08/19/21 13:45 Sodium 139 mmol/L (137-145) 08/22/21 Unknown Potassium 5.0 mmol/L (3.6-5.0) 08/22/21 Unknown Chloride 103.6 mmol/L (98-107) 08/22/21 Unknown Carbon Dioxide 25 mmol/L (22-30) 08/22/21 Unknown Anion Gap 15 mmol/L 08/22/21 Unknown BUN 52 mg/dL (7-17) H 08/22/21 Unknown Creatinine 0.7 mg/dL (0.6-1.2) 08/22/21 Unknown Estimated GFR > 60 ml/min 08/22/21 Unknown BUN/Creatinine Ratio 74 % 08/22/21 Unknown Glucose 137 mg/dL (65-100) H 08/22/21 Unknown POC Glucose 134 mg/dL (70-105) H 08/22/21 05:51 Lactic Acid 2.10 mmol/L (0.7-2.0) H* 08/03/21 15:11 Calcium 8.7 mg/dL (8.4-10.2) 08/22/21 Unknown Phosphorus 4.10 mg/dL (2.5-4.5) 08/08/21 06:00 Magnesium 1.70 mg/dL (1.7-2.3) 08/12/21 21:41 Total Bilirubin 0.20 mg/dL (0.1-1.2) 08/22/21 Unknown AST 29 units/L (5-40) 08/22/21 Unknown ALT 51 units/L (7-56) 08/22/21 Unknown Alkaline Phosphatase 114 units/L (35-129) 08/22/21 Unknown Serum Total Protein See scanned result 08/03/21 04:17 Total Protein 6.0 g/dL (6.3-8.2) L D 08/22/21 Unknown Albumin 2.7 g/dL (3.9-5) L 08/22/21 Unknown Albumin/Globulin Ratio 0.8 % 08/22/21 Unknown [id number] See scanned result 08/03/21 04:17 [id number]-[id number] See scanned result 08/03/21 04:17 Beta Globulins See scanned result 08/03/21 04:17 Gamma Globulins See scanned result 08/03/21 04:17 Abnorm Protein Band 1 See scanned result 08/03/21 04:17 Abnorm Protein Band 2 See scanned result 08/03/21 04:17 Abnorm Protein Band 3 See scanned result 08/03/21 04:17 PEP Interpretation See scanned result 08/03/21 04:17 Triglycerides 207 mg/dL (2-149) H 08/20/21 16:55 Lipase 56 units/L (13-60) 08/20/21 16:55 Carcinoembryonic Ag <0.5 ng/mL (0.0-2.4) 07/31/21 04:45 Arterial Blood Glucose 141 mg/dL (65-95) H 08/19/21 13:45 Arterial Blood Ionized Calcium 4.6 mg/dL (4.6-5.3) 08/17/21 07:27 Urine Color Yellow (Yellow) 08/08/21 20: Urine Turbidity Slightly-cloudy (Clear) 08/08/21 20: Urine pH 5.0 (5.0-7.0) 08/08/21 20: Ur Specific [place] 1.014 (1.003-1.030) 08/08/21 20:27 Urine Protein 30 mg/dl mg/dL (Negative) 08/08/21 20: Urine Glucose (UA) Neg mg/dL (Negative) 08/08/21 20:27 Urine Ketones Neg mg/dL (Negative) 08/08/21 20:27 Urine Blood Mod (Negative) 08/08/21 20: Urine Nitrite Neg (Negative) 08/08/21 20: Urine Bilirubin Neg (Negative) 08/08/21 20:27 Urine Urobilinogen < 2.0 mg/dL (<2.0) 08/08/21 20:27 Ur Leukocyte Esterase Neg (Negative) 08/08/21 20: Urine WBC (Auto) 6.0 /HPF (0.0-6.0) 08/08/21 20: Urine RBC (Auto) 6.0 /HPF (0.0-6.0) 08/08/21 20: U Epithel Cells (Auto) < 1.0 /HPF (0-13.0) 08/08/21 20: Urine Bacteria (Auto) 1+ /HPF (Negative) 08/08/21 20: Urine Mucus Few /HPF 08/08/21 20: Urine Yeast (Budding) 1+ /HPF 08/08/21 20:27 Urine Creatinine 125.6 mg/dL (0.1-20.0) H 08/01/21 Unknown Urine Sodium 12 mmol/L 08/01/21 Unknown Proteinase 3 (PR3) Ab See scanned result 08/02/21 15:40 Myeloperoxidase Ab See scanned result 08/02/21 15:40 Double Strand DNA Ab 1 IU/mL (<=4) 08/02/21 15:40 Coronavirus (PCR) Negative (Negative) 07/29/21 07:58 Hepatitis A IgM Ab Non-reactive (NonReactive) 08/02/21 15:40 Hep Bs Antigen Nonreactive (Negative) 08/02/21 15:40 Hep B Core IgM Ab Non-reactive (NonReactive) 08/02/21 15:40 Hepatitis C Antibody Non-reactive (NonReactive) 08/02/21 15:40 AFB Identification Negative 08/02/21 14:30 Blood Type A POSITIVE 08/18/21 05:10 Antibody Screen Negative 08/18/21 05:10 Crossmatch See Detail 08/18/21 05:10 Elizabeth/IV: Voiding Method Indwelling Catheter Active Medications - Current Medications Current Medications: Generic Name Dose Route Start Last Admin Trade Name Freq PRN Reason Stop Dose Admin Acetaminophen 650 mg 07/28/21 02:11 08/18/21 22:02 Acetaminophen 325 Mg Tab PO 650 mg Q6H PRN Administration Pain MILD(1-3)/Fever >100.5/GARCIA Albuterol/Ipratropium 1 ampul 07/28/21 14:00 08/21/21 20:17 Ipratropium/Albuterol Sulfate 3 Ml Ampul.Neb IH 1 ampul TID DEMIAN Administration Lipase/Protease/Amylase 1 each 07/29/21 13:01 Lipase 10,500/Protease 25,000/Amylase 43,750 (Units) Dr [place]overde FEEDTUBE PRN PRN For Clogged Feeding Tube Arformoterol Tartrate 15 mcg 07/28/21 20:00 08/21/21 20:17 Arformoterol 15 Mcg/2 Ml Nebu IH 15 mcg Q12HRT DEMIAN Administration Bisacodyl 10 mg 08/07/21 09:50 08/20/21 09:22 Bisacodyl 10 Mg Rect Supp [place] 10 mg QDAY PRN Administration Constip unreliev by MOM/or NPO Budesonide 0.5 mg 07/28/21 20:00 08/21/21 20:17 Budesonide 0.5 Mg/2 Ml Nebu IH 0.5 mg Q12HRT DEMIAN Administration Dextrose 50 ml 07/28/21 02:11 08/10/21 18:05 Dextrose 50% In Water (25gm) 50 Ml Syringe IV 20 ml Q30MIN PRN Administration Hypoglycemia Protocol Enoxaparin Sodium 40 mg 08/19/21 10:00 08/21/21 10:18 Enoxaparin 40 Mg/0.4 Ml Inj SUB-Q 40 mg QDAY DEMIAN Administration Protocol Famotidine 20 mg 08/15/21 10:00 08/21/21 21:54 Famotidine 20 Mg Tab FEEDTUBE 20 mg BID DEMIAN Administration Fentanyl 50 mcg 07/29/21 10:42 08/04/21 09:05 Fentanyl 100 Mcg/2 Ml Inj IV 50 mcg Q10MIN PRN Administration ANALGESIA Hydralazine HCl 10 mg 07/30/21 14:52 08/19/21 12:12 Hydralazine 20 Mg/1 Ml Inj IV 10 mg Q6H PRN Administration SBP > 165 Hydrophilic Ointment 1 applic 07/29/21 10:42 Lip Therapy Vaseline TP Q2HR PRN Dry Lips Fentanyl Citrate 2,000 mcg in 100 mls @ 5.35 mls/hr 07/29/21 11:00 08/22/21 06:10 Fentanyl Drip Premix IV 4 mcg/kg/hr TITR DEMIAN 21.4 mls/hr Administration Protocol 1 MCG/KG/HR Norepinephrine 4 mg in 250 mls @ 7.5 mls/hr 07/29/21 21:00 Levophed Drip 4 Mg/Ns 250 Ml IV TITR DEMIAN Protocol 2 MCG/MIN Midazolam HCl 100 mg/ Sodium 100 mls @ 1 mls/hr 08/20/21 17:00 08/21/21 15:41 Chloride IV 2 mg/hr TITR DEMIAN 2 mls/hr Titration Protocol 1 MG/HR Insulin Human Lispro 0 unit 07/29/21 12:00 08/22/21 00:43 Insulin Lispro 100 Unit/Ml SUB-Q 3 unit Q6HR DEMIAN Administration Protocol Magnesium Hydroxide 30 ml 07/28/21 02:11 08/20/21 09:21 Magnesium Hydroxide (Mom) Oral Liqd Udc PO 30 ml Q4H PRN Administration Constipation Methylprednisolone Sodium Succinate 80 mg 08/20/21 13:00 08/21/21 13:26 Methylprednisolone Sod Succinate 125 Mg/2 Ml Inj IV 08/22/21 12:59 80 mg Q12H DEMIAN Administration Midazolam HCl 2 mg 08/20/21 16:15 08/20/21 18:33 Midazolam 2 Mg/2 Ml Inj IV 2 mg Q10MIN PRN Administration Sedation Multi-Ingred Cream/Lotion/Oil/Oint 1 applic 07/29/21 10:42 Mineral Oil/Petrolatum, White Ophth Oint 3.5 Gm OU Q4HR PRN Dry Eye(s) Oxycodone HCl 5 mg 08/18/21 15:45 08/18/21 21:58 Oxycodone 5 Mg Tab PO 5 mg Q4H PRN Administration Pain, Moderate (4-6) Polyethylene Glycol 17 gm 08/11/21 16:00 08/21/21 10:19 Polyethylene Glycol 3350 17 Gm Powder PO 17 gm QDAY DEMIAN Administration Quetiapine Fumarate 250 mg 08/20/21 16:19 08/21/21 21:53 Quetiapine 100 Mg Tab PO 250 mg BID DEMIAN Administration Senna/Docusate Sodium 1 tab 08/11/21 13:00 08/21/21 21:55 Sennosides/Docusate Sodium 8.6/50 Mg Tab FEEDTUBE 1 tab Q8H DEMIAN Administration Simple Syrup 15 ml 07/29/21 13:01 Simple Syrup 15 Ml FEEDTUBE PRN PRN Hypoglycemia Simple Syrup 30 ml 07/29/21 13:01 Simple Syrup 15 Ml FEEDTUBE PRN PRN Hypoglycemia Sodium Bicarbonate 325 mg 07/29/21 13:01 Sodium Bicarbonate 325 Mg Tab FEEDTUBE PRN PRN For Clogged Feeding Tube Sodium Chloride 10 ml 07/28/21 10:00 08/21/21 21:55 Sodium Chloride 0.9% 10 Ml Flush Syringe IV 10 ml BID DEMIAN Administration Sodium Chloride 10 ml 07/28/21 02:05 Sodium Chloride 0.9% 10 Ml Flush Syringe IV PRN PRN LINE FLUSH Nutrition/Malnutrition Assess - Dietary Evaluation Nutrition/Malnutrition Findings: Nutrition Notes Start: 07/28/21 14:44 Freq: Status: Active Protocol: Document 08/16/21 15:09 [facility] (Rec: 08/16/21 15:16 [facility] [id number]) Nutrition Notes Initial or Follow up Reassessment Current Diagnosis Diabetes,Hypertension, Respiratory Failure, Hyperlipidemia Current Diet TF - Vital AF 1.2 at 50ml/hr Labs/Tests Na 144 Pertinent Medications Senna, Miralax, Dulcolax Height 5 ft Weight 107 kg [place] Body Weight (kg) 45.45 BMI 46.0 Weight Status Morbidly Obese Subjective/Other Information Spoke with RN via phone at 15: 08. Pt still has not had a BM . Medications given today. Pt tolerating TF at goal rate and remains on vent support. Percent of energy/protein needs met: 78% energy 79% pro Burn Absent Trauma Absent GI Symptoms Constipation #1 Nutrition Diagnosis Inadequate oral intake Diagnosis Progress(for reassessment Continues documentation) Is patient on ventilator? Yes Is Patient Ambulatory and/or Out of Bed No REE-([facility]-confined to bed) 1842.852 Kcal/Kg value to use for calculation 13 Approximate Energy Requirements Using 1391 kcal/Kg Calculation Used for Recommendations Kcal/kg Additional Notes Protein: (up to 2.5g/kg IBW) up to 114g Fluid: 1 ml/kcal or per MD Nutrition Intervention Nutrition Support: Continue Vital AF 1.2 at 50 ml /hr. Per RN, pt receiving 200ml water flush q4h. Kcal 1,440 Protein (gm) 90 Fluid (mL) 973 Goal #1 TF tolerance Goal #2 TF to meet at least 75% energy and pro needs Follow-Up By: 08/23/21 Additional Comments F/U: stable TF, BM, vent status
[2021-08-16] MEDS: INSULIN LISPRO 100 UNIT/ML SUB-Q SCH ×4 (00:55→18:12)
[2021-08-16] MEDS: FREE WATER PO SCH ×7 (01:02→21:01)
[2021-08-16] MEDS: fentaNYL DRIP Premix 2,000 MCG/100 ML BAG IV SCH ×3 (02:30→22:36)
[2021-08-16] MEDS: oxyCODONE 5 MG TAB PO SCH ×4 (03:24→21:01)
[2021-08-16] MEDS: SENNOSIDES/DOCUSATE SODIUM 8.6/50 MG TAB FEEDTUBE SCH ×3 (04:31→20:57)
[2021-08-16] MEDS: BUDESONIDE 0.5 MG/2 ML NEBU IH SCH ×2 (07:44→21:26)
[2021-08-16] MEDS: IPRATROPIUM/ALBUTEROL SULFATE 3 ML AMPUL.NEB IH SCH ×3 (07:44→21:26)
[2021-08-16] MEDS: ARFORMOTEROL 15 MCG/2 ML NEBU IH SCH ×2 (07:44→21:26)
[2021-08-16] MEDS: FAMOTIDINE 20 MG TAB FEEDTUBE SCH ×2 (10:32→21:01)
[2021-08-16] MEDS: ENOXAPARIN 100 MG/1 ML INJ SUB-Q SCH ×2 (10:32→21:00)
[2021-08-16] MEDS: QUEtiapine 200 MG TAB PO SCH (10:32)
[2021-08-16] MEDS: POLYETHYLENE GLYCOL 3350 17 GM POWDER PO SCH (10:32)
[2021-08-16] MEDS ORDERED: WATER FOR INJ Sterile (PF) 10 ML ONE (10:43)
[2021-08-16] MEDS ORDERED: ALTEPLASE 2 MG INJ IV ONE (11:00)
--- NOTE | 2021-08-16 12:07 | Progress Note ---
Assessment and Plan Acute hypoxemic respiratory failure secondary Lung Mass (? Lung vs Breast CA) Acute COPD exacerbation Possible hypercapnia History of right breast cancer Leukocytosis DM II Hypertension Hyperlipidemia Tobacco use disorder - repeat CXR in am - continue daily SAT and SBT assessment as tolerated - will reduce Seroquel dose as tolerated - follow QT, get 12 lead EKG - continue care as below otherwise; - malignancy per oncology team - continue full anticoagulation for VTE - continue Seroquel to spare IV sedatives - azotemia per nephrology - continue to wean supplemental oxygen for target O2 sat's > 90% acutely - VAP bundle addressed - continue lung protective strategies - continue bronchodilators (GLADIS & LABA) with pulmonary hygiene per RT - wean per pulmonary driven protocols otherwise - continue accuchecks with glycemic control per SSI (While critically ill target blood glucose of 140-180 mg/dL; avoid hypoglycemia) - sedation prn for target RASS 0 to -1 - avoid nephrotoxins, renally dose all medications - continue to avoid benzodiazepine's, reduce the possibility of delirium - complete AB's per ID rec's - prn analgesia per CPOT score - Maintenance of sleep-wake cycle, avoid delirium - enteral nutritional support at goal rate as tolerated - G.I. & VTE prophylaxis - PT/OT/ROM exercises - continue mobility protocols for pressure ulcer prophylaxis - Monitor hemodynamics closely - continue other care per attending / other consultants - discharge planning ongoing concurrently COVID SPECIFIC INTERVENTIONS - test result pending .... Re-evaluate in am & prn CONDITION: CRITICAL PROGNOSIS: GUARDED CODE STATUS: FULL CODE The high probability of a clinically significant, sudden or life-threatening deterioration of the [respiratory, cardiovascular, oncological & neurologic] system(s) required my full and direct attention, intervention and personal management. The aggregate critical care time was [33] minutes without overlap. Time includes spent on; [x] Data Review and interpretation [x] Patient assessment and monitoring of vital signs [x] Documentation [x] Medication orders and management Subjective Date of service: 08/16/21 Principal diagnosis: Ac hypoxemic resp failure ; AE-COPD; H/O CA Breast; DM II; HTN Interval history: Patient is seen today for: Acute hypoxemic respiratory failure; AE-COPD; Possible hypercapnia; H/O CA Breast; DM II; HTN Seen and examined at bedside; 24hour events reviewed; nursing and respiratory care staff consulted; no adverse overnight events reported to me; resting in bed; remains on MVS; failed SBT earlier with dysrhthmia's; no emesis or overt aspiration; responsive when sedation lightened but work of breathing increased Objective Vital Signs - 12hr 08/16/21 08/16/21 08/16/21 00:15 00:31 00:45 Temperature Pulse Rate 94 H 94 H 94 H Pulse Rate [ Anterior Bilateral] Pulse Rate [ From Monitor] Respiratory 16 16 16 Rate Respiratory Rate [Anterior Bilateral] Blood Pressure 111/30 111/30 111/30 O2 Sat by Pulse 100 99 100 Oximetry 08/16/21 08/16/21 08/16/21 01:01 01:15 01:31 Temperature Pulse Rate 94 H 93 H 93 H Pulse Rate [ Anterior Bilateral] Pulse Rate [ From Monitor] Respiratory 16 16 16 Rate Respiratory Rate [Anterior Bilateral] Blood Pressure 122/32 122/32 122/32 O2 Sat by Pulse 99 99 99 Oximetry 08/16/21 08/16/21 08/16/21 01:45 02:01 02:15 Temperature Pulse Rate 92 H 93 H 94 H Pulse Rate [ Anterior Bilateral] Pulse Rate [ From Monitor] Respiratory 16 16 16 Rate Respiratory Rate [Anterior Bilateral] Blood Pressure 122/32 126/29 126/29 O2 Sat by Pulse 99 98 99 Oximetry 08/16/21 08/16/21 08/16/21 02:31 02:45 03:01 Temperature Pulse Rate 94 H 94 H 92 H Pulse Rate [ Anterior Bilateral] Pulse Rate [ From Monitor] Respiratory 16 16 16 Rate Respiratory Rate [Anterior Bilateral] Blood Pressure 126/29 126/29 125/25 O2 Sat by Pulse 99 100 99 Oximetry 08/16/21 08/16/21 08/16/21 03:15 03:31 03:45 Temperature Pulse Rate 92 H 99 H 99 H Pulse Rate [ Anterior Bilateral] Pulse Rate [ From Monitor] Respiratory 16 16 19 Rate Respiratory Rate [Anterior Bilateral] Blood Pressure 125/25 125/25 125/25 O2 Sat by Pulse 99 98 97 Oximetry 08/16/21 08/16/21 08/16/21 03:58 04:00 04:01 Temperature 98 F Pulse Rate 99 H 89 99 H Pulse Rate [ Anterior Bilateral] Pulse Rate [ From Monitor] Respiratory 16 16 Rate Respiratory Rate [Anterior Bilateral] Blood Pressure 125/25 144/27 O2 Sat by Pulse 99 100 97 Oximetry 08/16/21 08/16/21 08/16/21 04:15 04:31 04:45 Temperature Pulse Rate 97 H 94 H 92 H Pulse Rate [ Anterior Bilateral] Pulse Rate [ From Monitor] Respiratory 16 16 16 Rate Respiratory Rate [Anterior Bilateral] Blood Pressure 144/27 144/27 144/27 O2 Sat by Pulse 98 98 98 Oximetry 08/16/21 08/16/21 08/16/21 05:01 05:15 05:31 Temperature Pulse Rate 92 H 95 H 108 H Pulse Rate [ Anterior Bilateral] Pulse Rate [ From Monitor] Respiratory 16 16 15 Rate Respiratory Rate [Anterior Bilateral] Blood Pressure 137/26 137/26 137/26 O2 Sat by Pulse 98 99 99 Oximetry 08/16/21 08/16/21 08/16/21 05:45 06:01 06:15 Temperature Pulse Rate 106 H 99 H 95 H Pulse Rate [ Anterior Bilateral] Pulse Rate [ From Monitor] Respiratory 16 16 16 Rate Respiratory Rate [Anterior Bilateral] Blood Pressure 137/26 121/25 121/25 O2 Sat by Pulse 99 99 99 Oximetry 08/16/21 08/16/21 08/16/21 06:31 06:45 07:01 Temperature Pulse Rate 91 H 91 H 89 Pulse Rate [ Anterior Bilateral] Pulse Rate [ From Monitor] Respiratory 16 16 16 Rate Respiratory Rate [Anterior Bilateral] Blood Pressure 121/25 121/25 126/30 O2 Sat by Pulse 99 99 98 Oximetry 08/16/21 08/16/21 08/16/21 07:15 07:31 07:41 Temperature Pulse Rate 89 86 86 Pulse Rate [ Anterior Bilateral] Pulse Rate [ From Monitor] Respiratory 16 16 Rate Respiratory Rate [Anterior Bilateral] Blood Pressure 126/30 126/30 126/30 O2 Sat by Pulse 99 99 100 Oximetry 08/16/21 08/16/21 08/16/21 07:44 07:45 08:00 Temperature 100.0 F H Pulse Rate 86 83 Pulse Rate [ 85 Anterior Bilateral] Pulse Rate [ 83 From Monitor] Respiratory 16 16 Rate Respiratory 16 Rate [Anterior Bilateral] Blood Pressure 126/30 O2 Sat by Pulse 99 100 Oximetry 08/16/21 08/16/21 08/16/21 08:01 08:15 08:31 Temperature Pulse Rate 83 86 96 H Pulse Rate [ Anterior Bilateral] Pulse Rate [ From Monitor] Respiratory 16 16 16 Rate Respiratory Rate [Anterior Bilateral] Blood Pressure 118/29 118/29 161/96 O2 Sat by Pulse 100 100 98 Oximetry 08/16/21 08/16/21 08/16/21 08:45 09:01 09:15 Temperature Pulse Rate 98 H 105 H 103 H Pulse Rate [ Anterior Bilateral] Pulse Rate [ From Monitor] Respiratory 16 22 18 Rate Respiratory Rate [Anterior Bilateral] Blood Pressure 161/96 162/90 162/90 O2 Sat by Pulse 98 95 98 Oximetry 08/16/21 08/16/21 08/16/21 09:31 09:45 10:01 Temperature Pulse Rate 99 H 95 H 92 H Pulse Rate [ Anterior Bilateral] Pulse Rate [ From Monitor] Respiratory 17 16 16 Rate Respiratory Rate [Anterior Bilateral] Blood Pressure 162/90 162/90 115/64 O2 Sat by Pulse 98 99 95 Oximetry 08/16/21 08/16/21 08/16/21 10:15 10:31 10:45 Temperature Pulse Rate 90 94 H 96 H Pulse Rate [ Anterior Bilateral] Pulse Rate [ From Monitor] Respiratory 16 20 15 Rate Respiratory Rate [Anterior Bilateral] Blood Pressure 115/64 141/76 141/76 O2 Sat by Pulse 99 99 98 Oximetry 08/16/21 08/16/21 08/16/21 11:00 11:15 11:31 Temperature Pulse Rate 100 H 101 H 99 H Pulse Rate [ Anterior Bilateral] Pulse Rate [ From Monitor] Respiratory 16 16 14 Rate Respiratory Rate [Anterior Bilateral] Blood Pressure 124/77 124/77 124/77 O2 Sat by Pulse 95 99 100 Oximetry 08/16/21 11:34 Temperature 102.5 F H Pulse Rate Pulse Rate [ Anterior Bilateral] Pulse Rate [ From Monitor] Respiratory Rate Respiratory Rate [Anterior Bilateral] Blood Pressure O2 Sat by Pulse Oximetry Constitutional: appears uncomfortable, other (eldely obese female without increased respiratory effort at rest on MVS) Eyes: non-icteric ENT: oropharynx moist, other (trach [place] #8, cuffed; no bleeding) Neck: supple, no lymphadenopathy, no JVD Effort: mildly labored Ascultation: Bilateral: wheezes (central), rhonchi Percussion: Bilateral: not dull Cardiovascular: regular rate and rhythm, other (S1,S2) Gastrointestinal: normoactive bowel sounds, soft, non-tender, non-distended, other (PEG) Integumentary: normal Extremities: no cyanosis, no edema, pulses normal, no ischemia or petechiae Neurologic: non-focal exam (moves all extremities), pupils equal and round, CN II-XII normal Psychiatric: other (sedated) CBC and BMP: 08/17/21 Unknown 08/17/21 Unknown ABG, PT/INR, D-dimer: ABG ABG pH 7.399 (7.320-7.450) 08/13/21 05:43 POC ABG pCO2 44.3 mmHg (32.0-48.0) 08/13/21 05:43 POC ABG pO2 76.8 mmHg (83-108) L 08/13/21 05:43 POC ABG HCO3 26.8 08/13/21 05:43 ABG O2 Saturation 94.7 (0-100) 08/13/21 05:43 PT/INR, D-dimer PT 14.5 Sec. (12.2-14.9) 08/12/21 21:41 INR 1.08 (0.87-1.13) 08/12/21 21:41 D-Dimer 852.47 ng/mlDDU (0-234) H 07/29/21 07:17 Abnormal lab findings: Abnormal Labs 07/27/21 07/27/21 07/27/21 22:57 22:57 22:57 WBC 20.3 H RBC Hgb Hct RDW Lymph % (Auto) Lymph # (Auto) [place] # (Auto) Seg Neutrophils % Seg Neuts % (Manual) 89.0 H Lymphocytes % (Manual) 9.0 L Nucleated RBC % Seg Neutrophils # Seg Neutrophils # Man 18.1 H Lymphocytes # (Manual) Monocytes # (Manual) D-Dimer ABG pH POC ABG pCO2 POC ABG pO2 ABG Hemoglobin ABG Oxyhemoglobin ABG Sodium ABG Potassium ABG Chloride ABG Glucose Carboxyhemoglobin Sodium Potassium 3.5 L Chloride 96.9 L Carbon Dioxide 20 L BUN 19 H Creatinine Glucose 204 H POC Glucose Lactic Acid 7.20 H* Calcium Magnesium AST 98 H ALT 90 H Total Protein Albumin Arterial Blood Glucose Arterial Blood Ionized Calcium Urine WBC (Auto) Urine Creatinine 07/28/21 07/28/21 07/28/21 01:31 07:49 10:00 WBC RBC Hgb Hct RDW Lymph % (Auto) Lymph # (Auto) [place] # (Auto) Seg Neutrophils % Seg Neuts % (Manual) Lymphocytes % (Manual) Nucleated RBC % Seg Neutrophils # Seg Neutrophils # Man Lymphocytes # (Manual) Monocytes # (Manual) D-Dimer ABG pH POC ABG pCO2 POC ABG pO2 ABG Hemoglobin ABG Oxyhemoglobin ABG Sodium ABG Potassium ABG Chloride ABG Glucose Carboxyhemoglobin Sodium Potassium Chloride Carbon Dioxide BUN Creatinine Glucose POC Glucose 194 H Lactic Acid 6.90 H* 6.70 H* Calcium Magnesium AST ALT Total Protein Albumin Arterial Blood Glucose Arterial Blood Ionized Calcium Urine WBC (Auto) Urine Creatinine 07/28/21 07/28/21 07/28/21 12:41 13:21 16:21 WBC RBC Hgb Hct RDW Lymph % (Auto) Lymph # (Auto) [place] # (Auto) Seg Neutrophils % Seg Neuts % (Manual) Lymphocytes % (Manual) Nucleated RBC % Seg Neutrophils # Seg Neutrophils # Man Lymphocytes # (Manual) Monocytes # (Manual) D-Dimer ABG pH POC ABG pCO2 POC ABG pO2 ABG Hemoglobin ABG Oxyhemoglobin ABG Sodium ABG Potassium ABG Chloride ABG Glucose Carboxyhemoglobin Sodium Potassium Chloride Carbon Dioxide BUN Creatinine Glucose POC Glucose 159 H 155 H Lactic Acid 6.10 H* Calcium Magnesium AST ALT Total Protein Albumin Arterial Blood Glucose Arterial Blood Ionized Calcium Urine WBC (Auto) Urine Creatinine 07/28/21 07/29/21 07/29/21 22:03 04:44 04:44 WBC 17.0 H RBC Hgb Hct RDW Lymph % (Auto) Lymph # (Auto) [place] # (Auto) Seg Neutrophils % Seg Neuts % (Manual) 82.0 H Lymphocytes % (Manual) 11.0 L Nucleated RBC % Seg Neutrophils # Seg Neutrophils # Man 13.9 H Lymphocytes # (Manual) Monocytes # (Manual) 1.0 H D-Dimer ABG pH POC ABG pCO2 POC ABG pO2 ABG Hemoglobin ABG Oxyhemoglobin ABG Sodium ABG Potassium ABG Chloride ABG Glucose Carboxyhemoglobin Sodium Potassium Chloride Carbon Dioxide BUN 23 H Creatinine Glucose 196 H POC Glucose 187 H Lactic Acid Calcium Magnesium AST ALT Total Protein Albumin Arterial Blood Glucose Arterial Blood Ionized Calcium Urine WBC (Auto) Urine Creatinine 07/29/21 07/29/21 07/29/21 06:56 07:17 07:17 WBC 26.1 H RBC Hgb Hct 43.3 H RDW 16.0 H Lymph % (Auto) Lymph # (Auto) [place] # (Auto) Seg Neutrophils % Seg Neuts % (Manual) 80.0 H Lymphocytes % (Manual) Nucleated RBC % Seg Neutrophils # Seg Neutrophils # Man 20.9 H Lymphocytes # (Manual) Monocytes # (Manual) D-Dimer ABG pH POC ABG pCO2 POC ABG pO2 ABG Hemoglobin ABG Oxyhemoglobin ABG Sodium ABG Potassium ABG Chloride ABG Glucose Carboxyhemoglobin Sodium Potassium Chloride Carbon Dioxide 20 L D BUN 23 H Creatinine Glucose 308 H POC Glucose 165 H Lactic Acid Calcium Magnesium AST ALT Total Protein Albumin Arterial Blood Glucose Arterial Blood Ionized Calcium Urine WBC (Auto) Urine Creatinine 07/29/21 07/29/21 07/29/21 07:17 09:16 10:30 WBC RBC Hgb Hct RDW Lymph % (Auto) Lymph # (Auto) [place] # (Auto) Seg Neutrophils % Seg Neuts % (Manual) Lymphocytes % (Manual) Nucleated RBC % Seg Neutrophils # Seg Neutrophils # Man Lymphocytes # (Manual) Monocytes # (Manual) D-Dimer 852.47 H ABG pH 7.236 L POC ABG pCO2 56.0 H POC ABG pO2 266.4 H ABG Hemoglobin ABG Oxyhemoglobin 99.1 H ABG Sodium 132.3 L ABG Potassium 4.9 H ABG Chloride ABG Glucose 202 H Carboxyhemoglobin 0.2 L Sodium Potassium Chloride Carbon Dioxide BUN Creatinine Glucose POC Glucose 271 H Lactic Acid Calcium Magnesium AST ALT Total Protein Albumin Arterial Blood Glucose 202 H Arterial Blood Ionized Calcium Urine WBC (Auto) Urine Creatinine 07/29/21 07/29/21 07/30/21 17:54 23:32 05:08 WBC RBC Hgb Hct RDW Lymph % (Auto) Lymph # (Auto) [place] # (Auto) Seg Neutrophils % Seg Neuts % (Manual) Lymphocytes % (Manual) Nucleated RBC % Seg Neutrophils # Seg Neutrophils # Man Lymphocytes # (Manual) Monocytes # (Manual) D-Dimer ABG pH POC ABG pCO2 POC ABG pO2 ABG Hemoglobin ABG Oxyhemoglobin ABG Sodium ABG Potassium ABG Chloride ABG Glucose Carboxyhemoglobin Sodium Potassium Chloride Carbon Dioxide BUN Creatinine Glucose POC Glucose 168 H 205 H 214 H Lactic Acid Calcium Magnesium AST ALT Total Protein Albumin Arterial Blood Glucose Arterial Blood Ionized Calcium Urine WBC (Auto) Urine Creatinine 07/30/21 07/30/21 07/30/21 06:01 11:32 17:34 WBC RBC Hgb Hct RDW Lymph % (Auto) Lymph # (Auto) [place] # (Auto) Seg Neutrophils % Seg Neuts % (Manual) Lymphocytes % (Manual) Nucleated RBC % Seg Neutrophils # Seg Neutrophils # Man Lymphocytes # (Manual) Monocytes # (Manual) D-Dimer ABG pH 7.480 H POC ABG pCO2 23.6 L POC ABG pO2 280.0 H ABG Hemoglobin ABG Oxyhemoglobin 99.3 H ABG Sodium 133.7 L ABG Potassium ABG Chloride ABG Glucose 232 H Carboxyhemoglobin 0 L Sodium Potassium Chloride Carbon Dioxide BUN Creatinine Glucose POC Glucose 207 H 239 H Lactic Acid Calcium Magnesium AST ALT Total Protein Albumin Arterial Blood Glucose 232 H Arterial Blood Ionized Calcium 4.4 L Urine WBC (Auto) Urine Creatinine 07/30/21 07/31/21 07/31/21 23:39 03:34 04:45 WBC 15.0 H RBC Hgb Hct RDW 15.5 H Lymph % (Auto) Lymph # (Auto) [place] # (Auto) Seg Neutrophils % Seg Neuts % (Manual) 89.0 H Lymphocytes % (Manual) 7.0 L Nucleated RBC % Seg Neutrophils # Seg Neutrophils # Man 13.4 H Lymphocytes # (Manual) 1.1 L Monocytes # (Manual) D-Dimer ABG pH 7.481 H POC ABG pCO2 31.8 L POC ABG pO2 ABG Hemoglobin ABG Oxyhemoglobin ABG Sodium 135.2 L ABG Potassium 3.3 L ABG Chloride ABG Glucose 188 H Carboxyhemoglobin 0.1 L Sodium Potassium Chloride Carbon Dioxide BUN Creatinine Glucose POC Glucose 176 H Lactic Acid Calcium Magnesium AST ALT Total Protein Albumin Arterial Blood Glucose 188 H Arterial Blood Ionized Calcium 4.4 L Urine WBC (Auto) Urine Creatinine 07/31/21 07/31/21 07/31/21 04:45 04:45 11:28 WBC RBC Hgb Hct RDW Lymph % (Auto) Lymph # (Auto) [place] # (Auto) Seg Neutrophils % Seg Neuts % (Manual) Lymphocytes % (Manual) Nucleated RBC % Seg Neutrophils # Seg Neutrophils # Man Lymphocytes # (Manual) Monocytes # (Manual) D-Dimer ABG pH POC ABG pCO2 POC ABG pO2 ABG Hemoglobin ABG Oxyhemoglobin ABG Sodium ABG Potassium ABG Chloride ABG Glucose Carboxyhemoglobin Sodium Potassium 3.4 L Chloride Carbon Dioxide BUN 61 H Creatinine 2.6 H D Glucose 176 H POC Glucose 195 H 245 H Lactic Acid Calcium Magnesium AST ALT Total Protein Albumin Arterial Blood Glucose Arterial Blood Ionized Calcium Urine WBC (Auto) Urine Creatinine 07/31/21 07/31/21 08/01/21 17:32 23:58 01:00 WBC RBC Hgb Hct RDW Lymph % (Auto) Lymph # (Auto) [place] # (Auto) Seg Neutrophils % Seg Neuts % (Manual) Lymphocytes % (Manual) Nucleated RBC % Seg Neutrophils # Seg Neutrophils # Man Lymphocytes # (Manual) Monocytes # (Manual) D-Dimer ABG pH POC ABG pCO2 POC ABG pO2 ABG Hemoglobin ABG Oxyhemoglobin ABG Sodium ABG Potassium ABG Chloride ABG Glucose 284 H Carboxyhemoglobin 0.3 L Sodium Potassium Chloride Carbon Dioxide BUN Creatinine Glucose POC Glucose 251 H 294 H Lactic Acid Calcium Magnesium AST ALT Total Protein Albumin Arterial Blood Glucose 284 H Arterial Blood Ionized Calcium Urine WBC (Auto) Urine Creatinine 08/01/21 08/01/21 08/01/21 05:50 05:50 06:11 WBC 16.2 H RBC Hgb Hct RDW 15.5 H Lymph % (Auto) Lymph # (Auto) [place] # (Auto) Seg Neutrophils % Seg Neuts % (Manual) 93.0 H Lymphocytes % (Manual) 2.0 L Nucleated RBC % 3.0 H Seg Neutrophils # Seg Neutrophils # Man 15.1 H Lymphocytes # (Manual) 0.3 L Monocytes # (Manual) D-Dimer ABG pH POC ABG pCO2 POC ABG pO2 ABG Hemoglobin ABG Oxyhemoglobin ABG Sodium ABG Potassium ABG Chloride ABG Glucose Carboxyhemoglobin Sodium Potassium Chloride Carbon Dioxide BUN 64 H Creatinine 1.9 H Glucose 277 H POC Glucose 256 H Lactic Acid Calcium Magnesium AST ALT Total Protein Albumin Arterial Blood Glucose Arterial Blood Ionized Calcium Urine WBC (Auto) Urine Creatinine 08/01/21 08/01/21 08/01/21 11:39 17:25 23:53 WBC RBC Hgb Hct RDW Lymph % (Auto) Lymph # (Auto) [place] # (Auto) Seg Neutrophils % Seg Neuts % (Manual) Lymphocytes % (Manual) Nucleated RBC % Seg Neutrophils # Seg Neutrophils # Man Lymphocytes # (Manual) Monocytes # (Manual) D-Dimer ABG pH POC ABG pCO2 POC ABG pO2 ABG Hemoglobin ABG Oxyhemoglobin ABG Sodium ABG Potassium ABG Chloride ABG Glucose Carboxyhemoglobin Sodium Potassium Chloride Carbon Dioxide BUN Creatinine Glucose POC Glucose 289 H 275 H 327 H Lactic Acid Calcium Magnesium AST ALT Total Protein Albumin Arterial Blood Glucose Arterial Blood Ionized Calcium Urine WBC (Auto) Urine Creatinine 08/01/21 08/02/21 08/02/21 Unknown 04:00 12:03 WBC RBC Hgb Hct RDW Lymph % (Auto) Lymph # (Auto) [place] # (Auto) Seg Neutrophils % Seg Neuts % (Manual) Lymphocytes % (Manual) Nucleated RBC % Seg Neutrophils # Seg Neutrophils # Man Lymphocytes # (Manual) Monocytes # (Manual) D-Dimer ABG pH POC ABG pCO2 POC ABG pO2 ABG Hemoglobin ABG Oxyhemoglobin ABG Sodium ABG Potassium ABG Chloride ABG Glucose 325 H Carboxyhemoglobin 0.4 L Sodium Potassium Chloride Carbon Dioxide BUN Creatinine Glucose POC Glucose 209 H Lactic Acid Calcium Magnesium AST ALT Total Protein Albumin Arterial Blood Glucose 325 H Arterial Blood Ionized Calcium Urine WBC (Auto) Urine Creatinine 125.6 H 08/02/21 08/02/21 08/02/21 15:30 17:03 23:17 WBC RBC Hgb Hct RDW Lymph % (Auto) Lymph # (Auto) [place] # (Auto) Seg Neutrophils % Seg Neuts % (Manual) Lymphocytes % (Manual) Nucleated RBC % Seg Neutrophils # Seg Neutrophils # Man Lymphocytes # (Manual) Monocytes # (Manual) D-Dimer ABG pH POC ABG pCO2 POC ABG pO2 ABG Hemoglobin ABG Oxyhemoglobin ABG Sodium ABG Potassium ABG Chloride ABG Glucose Carboxyhemoglobin Sodium Potassium Chloride Carbon Dioxide BUN Creatinine Glucose POC Glucose 210 H 265 H Lactic Acid Calcium Magnesium AST ALT Total Protein Albumin Arterial Blood Glucose Arterial Blood Ionized Calcium Urine WBC (Auto) 47.0 H Urine Creatinine 08/02/21 08/02/21 08/03/21 Unknown Unknown 04:17 WBC 14.1 H RBC Hgb Hct RDW 16.3 H Lymph % (Auto) 5.1 L Lymph # (Auto) 0.7 L [place] # (Auto) 0.9 H Seg Neutrophils % 88.7 H Seg Neuts % (Manual) Lymphocytes % (Manual) Nucleated RBC % Seg Neutrophils # 12.5 H Seg Neutrophils # Man Lymphocytes # (Manual) Monocytes # (Manual) D-Dimer ABG pH POC ABG pCO2 POC ABG pO2 ABG Hemoglobin ABG Oxyhemoglobin ABG Sodium ABG Potassium ABG Chloride ABG Glucose Carboxyhemoglobin Sodium Potassium Chloride Carbon Dioxide BUN 72 H 72 H Creatinine 1.8 H 1.6 H Glucose 307 H 263 H POC Glucose Lactic Acid Calcium Magnesium AST ALT Total Protein Albumin Arterial Blood Glucose Arterial Blood Ionized Calcium Urine WBC (Auto) Urine Creatinine 08/03/21 08/03/21 08/03/21 04:17 05:30 08:30 WBC 13.9 H RBC Hgb Hct RDW 16.0 H Lymph % (Auto) Lymph # (Auto) [place] # (Auto) Seg Neutrophils % Seg Neuts % (Manual) Lymphocytes % (Manual) Nucleated RBC % Seg Neutrophils # Seg Neutrophils # Man Lymphocytes # (Manual) Monocytes # (Manual) D-Dimer ABG pH POC ABG pCO2 POC ABG pO2 ABG Hemoglobin ABG Oxyhemoglobin ABG Sodium ABG Potassium ABG Chloride ABG Glucose Carboxyhemoglobin Sodium Potassium Chloride Carbon Dioxide BUN Creatinine Glucose POC Glucose 280 H Lactic Acid Calcium Magnesium 3.00 H AST ALT Total Protein Albumin Arterial Blood Glucose Arterial Blood Ionized Calcium Urine WBC (Auto) Urine Creatinine 08/03/21 08/03/21 08/03/21 12:14 13:39 15:11 WBC RBC Hgb Hct RDW Lymph % (Auto) Lymph # (Auto) [place] # (Auto) Seg Neutrophils % Seg Neuts % (Manual) Lymphocytes % (Manual) Nucleated RBC % Seg Neutrophils # Seg Neutrophils # Man Lymphocytes # (Manual) Monocytes # (Manual) D-Dimer ABG pH POC ABG pCO2 POC ABG pO2 ABG Hemoglobin ABG Oxyhemoglobin ABG Sodium ABG Potassium ABG Chloride ABG Glucose 306 H Carboxyhemoglobin 0.3 L Sodium Potassium Chloride Carbon Dioxide BUN Creatinine Glucose POC Glucose 287 H Lactic Acid 2.10 H* Calcium Magnesium AST ALT Total Protein Albumin Arterial Blood Glucose 306 H Arterial Blood Ionized Calcium Urine WBC (Auto) Urine Creatinine 08/03/21 08/03/21 08/04/21 16:52 23:08 04:00 WBC RBC Hgb Hct RDW Lymph % (Auto) Lymph # (Auto) [place] # (Auto) Seg Neutrophils % Seg Neuts % (Manual) Lymphocytes % (Manual) Nucleated RBC % Seg Neutrophils # Seg Neutrophils # Man Lymphocytes # (Manual) Monocytes # (Manual) D-Dimer ABG pH POC ABG pCO2 54.3 H POC ABG pO2 82.2 L ABG Hemoglobin ABG Oxyhemoglobin ABG Sodium 145.1 H ABG Potassium 5.0 H ABG Chloride ABG Glucose 316 H Carboxyhemoglobin 0.3 L Sodium Potassium Chloride Carbon Dioxide BUN Creatinine Glucose POC Glucose 282 H 289 H Lactic Acid Calcium Magnesium AST ALT Total Protein Albumin Arterial Blood Glucose 316 H Arterial Blood Ionized Calcium Urine WBC (Auto) Urine Creatinine 08/04/21 08/04/21 08/04/21 04:38 04:38 05:19 WBC 17.7 H RBC Hgb Hct RDW 16.5 H Lymph % (Auto) Lymph # (Auto) [place] # (Auto) Seg Neutrophils % Seg Neuts % (Manual) Lymphocytes % (Manual) Nucleated RBC % Seg Neutrophils # Seg Neutrophils # Man Lymphocytes # (Manual) Monocytes # (Manual) D-Dimer ABG pH POC ABG pCO2 POC ABG pO2 ABG Hemoglobin ABG Oxyhemoglobin ABG Sodium ABG Potassium ABG Chloride ABG Glucose Carboxyhemoglobin Sodium Potassium Chloride 108.3 H Carbon Dioxide BUN 76 H Creatinine 1.4 H Glucose 310 H POC Glucose 268 H Lactic Acid Calcium Magnesium 2.70 H AST ALT Total Protein Albumin Arterial Blood Glucose Arterial Blood Ionized Calcium Urine WBC (Auto) Urine Creatinine 08/04/21 08/04/21 08/04/21 11:48 16:41 23:49 WBC RBC Hgb Hct RDW Lymph % (Auto) Lymph # (Auto) [place] # (Auto) Seg Neutrophils % Seg Neuts % (Manual) Lymphocytes % (Manual) Nucleated RBC % Seg Neutrophils # Seg Neutrophils # Man Lymphocytes # (Manual) Monocytes # (Manual) D-Dimer ABG pH POC ABG pCO2 POC ABG pO2 ABG Hemoglobin ABG Oxyhemoglobin ABG Sodium ABG Potassium ABG Chloride ABG Glucose Carboxyhemoglobin Sodium Potassium Chloride Carbon Dioxide BUN Creatinine Glucose POC Glucose 197 H 208 H 209 H Lactic Acid Calcium Magnesium AST ALT Total Protein Albumin Arterial Blood Glucose Arterial Blood Ionized Calcium Urine WBC (Auto) Urine Creatinine 08/05/21 08/05/21 08/05/21 04:00 04:50 04:50 WBC 19.0 H RBC Hgb Hct RDW 17.0 H Lymph % (Auto) Lymph # (Auto) [place] # (Auto) Seg Neutrophils % Seg Neuts % (Manual) 75.0 H Lymphocytes % (Manual) 2.0 L Nucleated RBC % Seg Neutrophils # Seg Neutrophils # Man 14.3 H Lymphocytes # (Manual) 0.4 L Monocytes # (Manual) 1.0 H D-Dimer ABG pH 7.314 L POC ABG pCO2 48.9 H POC ABG pO2 ABG Hemoglobin ABG Oxyhemoglobin ABG Sodium ABG Potassium 5.0 H ABG Chloride 109.0 H ABG Glucose 234 H Carboxyhemoglobin 0.4 L Sodium Potassium 5.2 H Chloride 110.0 H Carbon Dioxide BUN 90 H Creatinine 1.8 H Glucose 235 H POC Glucose Lactic Acid Calcium Magnesium 2.60 H AST ALT Total Protein Albumin Arterial Blood Glucose 234 H Arterial Blood Ionized Calcium Urine WBC (Auto) Urine Creatinine 08/05/21 08/05/21 08/05/21 06:05 12:02 17:08 WBC RBC Hgb Hct RDW Lymph % (Auto) Lymph # (Auto) [place] # (Auto) Seg Neutrophils % Seg Neuts % (Manual) Lymphocytes % (Manual) Nucleated RBC % Seg Neutrophils # Seg Neutrophils # Man Lymphocytes # (Manual) Monocytes # (Manual) D-Dimer ABG pH POC ABG pCO2 POC ABG pO2 ABG Hemoglobin ABG Oxyhemoglobin ABG Sodium ABG Potassium ABG Chloride ABG Glucose Carboxyhemoglobin Sodium Potassium Chloride Carbon Dioxide BUN Creatinine Glucose POC Glucose 225 H 193 H 263 H Lactic Acid Calcium Magnesium AST ALT Total Protein Albumin Arterial Blood Glucose Arterial Blood Ionized Calcium Urine WBC (Auto) Urine Creatinine 08/05/21 08/06/21 08/06/21 23:34 05:00 05:00 WBC 16.8 H RBC 3.64 L Hgb Hct RDW 16.6 H Lymph % (Auto) Lymph # (Auto) [place] # (Auto) Seg Neutrophils % Seg Neuts % (Manual) Lymphocytes % (Manual) Nucleated RBC % Seg Neutrophils # Seg Neutrophils # Man Lymphocytes # (Manual) Monocytes # (Manual) D-Dimer ABG pH POC ABG pCO2 POC ABG pO2 ABG Hemoglobin ABG Oxyhemoglobin ABG Sodium ABG Potassium ABG Chloride ABG Glucose Carboxyhemoglobin Sodium Potassium Chloride 109.3 H Carbon Dioxide BUN 89 H Creatinine 1.6 H Glucose 197 H POC Glucose 224 H Lactic Acid Calcium 8.2 L Magnesium AST ALT Total Protein Albumin Arterial Blood Glucose Arterial Blood Ionized Calcium Urine WBC (Auto) Urine Creatinine 08/06/21 08/06/21 08/06/21 05:26 11:38 16:30 WBC RBC Hgb Hct RDW Lymph % (Auto) Lymph # (Auto) [place] # (Auto) Seg Neutrophils % Seg Neuts % (Manual) Lymphocytes % (Manual) Nucleated RBC % Seg Neutrophils # Seg Neutrophils # Man Lymphocytes # (Manual) Monocytes # (Manual) D-Dimer ABG pH POC ABG pCO2 POC ABG pO2 ABG Hemoglobin ABG Oxyhemoglobin ABG Sodium ABG Potassium ABG Chloride ABG Glucose Carboxyhemoglobin Sodium Potassium Chloride Carbon Dioxide BUN Creatinine Glucose POC Glucose 168 H 160 H 135 H Lactic Acid Calcium Magnesium AST ALT Total Protein Albumin Arterial Blood Glucose Arterial Blood Ionized Calcium Urine WBC (Auto) Urine Creatinine 08/06/21 08/07/21 08/07/21 23:08 04:00 04:00 WBC 13.6 H RBC 3.30 L Hgb 9.5 L Hct 29.2 L RDW 16.7 H Lymph % (Auto) Lymph # (Auto) [place] # (Auto) Seg Neutrophils % Seg Neuts % (Manual) Lymphocytes % (Manual) Nucleated RBC % Seg Neutrophils # Seg Neutrophils # Man Lymphocytes # (Manual) Monocytes # (Manual) D-Dimer ABG pH POC ABG pCO2 POC ABG pO2 ABG Hemoglobin ABG Oxyhemoglobin ABG Sodium ABG Potassium ABG Chloride ABG Glucose Carboxyhemoglobin Sodium 146 H Potassium Chloride 111.4 H Carbon Dioxide BUN 78 H Creatinine 1.5 H Glucose 143 H POC Glucose 125 H Lactic Acid Calcium 8.2 L Magnesium AST ALT Total Protein Albumin Arterial Blood Glucose Arterial Blood Ionized Calcium Urine WBC (Auto) Urine Creatinine 08/07/21 08/07/21 08/07/21 04:00 05:16 12:12 WBC RBC Hgb Hct RDW Lymph % (Auto) Lymph # (Auto) [place] # (Auto) Seg Neutrophils % Seg Neuts % (Manual) Lymphocytes % (Manual) Nucleated RBC % Seg Neutrophils # Seg Neutrophils # Man Lymphocytes # (Manual) Monocytes # (Manual) D-Dimer ABG pH POC ABG pCO2 POC ABG pO2 80.1 L ABG Hemoglobin 9.8 L ABG Oxyhemoglobin ABG Sodium ABG Potassium ABG Chloride 111.0 H ABG Glucose 157 H Carboxyhemoglobin 0.3 L Sodium Potassium Chloride Carbon Dioxide BUN Creatinine Glucose POC Glucose 144 H 125 H Lactic Acid Calcium Magnesium AST ALT Total Protein Albumin Arterial Blood Glucose 157 H Arterial Blood Ionized Calcium 4.5 L Urine WBC (Auto) Urine Creatinine 08/07/21 08/08/21 08/08/21 23:20 04:47 06:00 WBC 13.8 H RBC 3.19 L Hgb 9.3 L Hct 28.4 L RDW 16.4 H Lymph % (Auto) Lymph # (Auto) [place] # (Auto) Seg Neutrophils % Seg Neuts % (Manual) Lymphocytes % (Manual) Nucleated RBC % Seg Neutrophils # Seg Neutrophils # Man Lymphocytes # (Manual) Monocytes # (Manual) D-Dimer ABG pH POC ABG pCO2 POC ABG pO2 ABG Hemoglobin ABG Oxyhemoglobin ABG Sodium ABG Potassium ABG Chloride ABG Glucose Carboxyhemoglobin Sodium Potassium Chloride Carbon Dioxide BUN Creatinine Glucose POC Glucose 118 H 130 H Lactic Acid Calcium Magnesium AST ALT Total Protein Albumin Arterial Blood Glucose Arterial Blood Ionized Calcium Urine WBC (Auto) Urine Creatinine 08/08/21 08/08/21 08/08/21 06:00 11:33 17:54 WBC RBC Hgb Hct RDW Lymph % (Auto) Lymph # (Auto) [place] # (Auto) Seg Neutrophils % Seg Neuts % (Manual) Lymphocytes % (Manual) Nucleated RBC % Seg Neutrophils # Seg Neutrophils # Man Lymphocytes # (Manual) Monocytes # (Manual) D-Dimer ABG pH POC ABG pCO2 POC ABG pO2 ABG Hemoglobin ABG Oxyhemoglobin ABG Sodium ABG Potassium ABG Chloride ABG Glucose Carboxyhemoglobin Sodium 147 H Potassium Chloride 112.4 H Carbon Dioxide BUN 71 H Creatinine 1.4 H Glucose 124 H POC Glucose 126 H 124 H Lactic Acid Calcium Magnesium AST ALT Total Protein Albumin Arterial Blood Glucose Arterial Blood Ionized Calcium Urine WBC (Auto) Urine Creatinine 08/08/21 08/09/21 08/09/21 23:41 06:06 10:00 WBC RBC Hgb Hct RDW Lymph % (Auto) Lymph # (Auto) [place] # (Auto) Seg Neutrophils % Seg Neuts % (Manual) Lymphocytes % (Manual) Nucleated RBC % Seg Neutrophils # Seg Neutrophils # Man Lymphocytes # (Manual) Monocytes # (Manual) D-Dimer ABG pH POC ABG pCO2 POC ABG pO2 ABG Hemoglobin ABG Oxyhemoglobin ABG Sodium ABG Potassium ABG Chloride ABG Glucose Carboxyhemoglobin Sodium 146 H Potassium Chloride 111.3 H Carbon Dioxide BUN 72 H Creatinine 1.5 H Glucose 119 H POC Glucose 119 H 127 H Lactic Acid Calcium Magnesium AST ALT 69 H Total Protein 5.2 L Albumin 2.6 L Arterial Blood Glucose Arterial Blood Ionized Calcium Urine WBC (Auto) Urine Creatinine 08/09/21 08/09/21 08/09/21 10:00 11:34 16:50 WBC 13.0 H RBC 2.88 L Hgb 8.5 L Hct 25.8 L RDW 16.5 H Lymph % (Auto) Lymph # (Auto) [place] # (Auto) Seg Neutrophils % Seg Neuts % (Manual) Lymphocytes % (Manual) Nucleated RBC % Seg Neutrophils # Seg Neutrophils # Man Lymphocytes # (Manual) Monocytes # (Manual) D-Dimer ABG pH POC ABG pCO2 POC ABG pO2 ABG Hemoglobin ABG Oxyhemoglobin ABG Sodium ABG Potassium ABG Chloride ABG Glucose Carboxyhemoglobin Sodium Potassium Chloride Carbon Dioxide BUN Creatinine Glucose POC Glucose 114 H 117 H Lactic Acid Calcium Magnesium AST ALT Total Protein Albumin Arterial Blood Glucose Arterial Blood Ionized Calcium Urine WBC (Auto) Urine Creatinine 08/10/21 08/10/21 08/10/21 00:12 05:20 05:20 WBC 13.2 H RBC 2.92 L Hgb 8.4 L Hct 25.9 L RDW 16.7 H Lymph % (Auto) Lymph # (Auto) [place] # (Auto) Seg Neutrophils % Seg Neuts % (Manual) Lymphocytes % (Manual) Nucleated RBC % Seg Neutrophils # Seg Neutrophils # Man Lymphocytes # (Manual) Monocytes # (Manual) D-Dimer ABG pH POC ABG pCO2 POC ABG pO2 ABG Hemoglobin ABG Oxyhemoglobin ABG Sodium ABG Potassium ABG Chloride ABG Glucose Carboxyhemoglobin Sodium 147 H Potassium Chloride 111.8 H Carbon Dioxide BUN 68 H Creatinine 1.4 H Glucose POC Glucose 114 H Lactic Acid Calcium Magnesium AST ALT Total Protein Albumin Arterial Blood Glucose Arterial Blood Ionized Calcium Urine WBC (Auto) Urine Creatinine 08/10/21 08/10/21 08/11/21 17:52 18:23 02:51 WBC RBC Hgb Hct RDW Lymph % (Auto) Lymph # (Auto) [place] # (Auto) Seg Neutrophils % Seg Neuts % (Manual) Lymphocytes % (Manual) Nucleated RBC % Seg Neutrophils # Seg Neutrophils # Man Lymphocytes # (Manual) Monocytes # (Manual) D-Dimer ABG pH POC ABG pCO2 POC ABG pO2 ABG Hemoglobin 8.7 L ABG Oxyhemoglobin ABG Sodium ABG Potassium ABG Chloride 111.0 H ABG Glucose Carboxyhemoglobin 0.2 L Sodium Potassium Chloride Carbon Dioxide BUN Creatinine Glucose POC Glucose 55 L 133 H Lactic Acid Calcium Magnesium AST ALT Total Protein Albumin Arterial Blood Glucose Arterial Blood Ionized Calcium 4.5 L Urine WBC (Auto) Urine Creatinine 08/11/21 08/11/21 08/11/21 04:30 11:36 17:11 WBC RBC Hgb Hct RDW Lymph % (Auto) Lymph # (Auto) [place] # (Auto) Seg Neutrophils % Seg Neuts % (Manual) Lymphocytes % (Manual) Nucleated RBC % Seg Neutrophils # Seg Neutrophils # Man Lymphocytes # (Manual) Monocytes # (Manual) D-Dimer ABG pH POC ABG pCO2 POC ABG pO2 ABG Hemoglobin ABG Oxyhemoglobin ABG Sodium ABG Potassium ABG Chloride ABG Glucose Carboxyhemoglobin Sodium Potassium Chloride 110.0 H Carbon Dioxide BUN 59 H Creatinine Glucose POC Glucose 116 H 115 H Lactic Acid Calcium 8.3 L Magnesium AST ALT 64 H Total Protein 5.5 L Albumin 2.6 L Arterial Blood Glucose Arterial Blood Ionized Calcium Urine WBC (Auto) Urine Creatinine 08/11/21 08/11/21 08/12/21 23:18 Unknown 05:05 WBC 12.2 H RBC 2.81 L Hgb 8.4 L Hct 25.4 L RDW 17.0 H Lymph % (Auto) Lymph # (Auto) [place] # (Auto) Seg Neutrophils % Seg Neuts % (Manual) Lymphocytes % (Manual) Nucleated RBC % Seg Neutrophils # Seg Neutrophils # Man Lymphocytes # (Manual) Monocytes # (Manual) D-Dimer ABG pH POC ABG pCO2 POC ABG pO2 ABG Hemoglobin ABG Oxyhemoglobin ABG Sodium ABG Potassium ABG Chloride ABG Glucose Carboxyhemoglobin Sodium Potassium Chloride Carbon Dioxide BUN Creatinine Glucose POC Glucose 126 H 131 H Lactic Acid Calcium Magnesium AST ALT Total Protein Albumin Arterial Blood Glucose Arterial Blood Ionized Calcium Urine WBC (Auto) Urine Creatinine 08/12/21 08/12/21 08/12/21 12:14 17:19 21:41 WBC 16.5 H RBC 3.04 L Hgb 8.9 L Hct 27.3 L RDW 17.0 H Lymph % (Auto) 9.0 L Lymph # (Auto) [place] # (Auto) 1.1 H Seg Neutrophils % 83.7 H Seg Neuts % (Manual) Lymphocytes % (Manual) Nucleated RBC % Seg Neutrophils # 13.8 H Seg Neutrophils # Man Lymphocytes # (Manual) Monocytes # (Manual) D-Dimer ABG pH POC ABG pCO2 POC ABG pO2 ABG Hemoglobin ABG Oxyhemoglobin ABG Sodium ABG Potassium ABG Chloride ABG Glucose Carboxyhemoglobin Sodium Potassium Chloride Carbon Dioxide BUN Creatinine Glucose POC Glucose 123 H 129 H Lactic Acid Calcium Magnesium AST ALT Total Protein Albumin Arterial Blood Glucose Arterial Blood Ionized Calcium Urine WBC (Auto) Urine Creatinine 08/12/21 08/12/21 08/13/21 21:41 23:26 05:24 WBC RBC Hgb Hct RDW Lymph % (Auto) Lymph # (Auto) [place] # (Auto) Seg Neutrophils % Seg Neuts % (Manual) Lymphocytes % (Manual) Nucleated RBC % Seg Neutrophils # Seg Neutrophils # Man Lymphocytes # (Manual) Monocytes # (Manual) D-Dimer ABG pH POC ABG pCO2 POC ABG pO2 ABG Hemoglobin ABG Oxyhemoglobin ABG Sodium ABG Potassium ABG Chloride ABG Glucose Carboxyhemoglobin Sodium 147 H Potassium Chloride 110.7 H Carbon Dioxide BUN 48 H Creatinine Glucose 147 H POC Glucose 133 H 109 H Lactic Acid Calcium Magnesium AST ALT Total Protein Albumin Arterial Blood Glucose Arterial Blood Ionized Calcium Urine WBC (Auto) Urine Creatinine 08/13/21 08/13/21 08/13/21 05:43 11:36 18:00 WBC RBC Hgb Hct RDW Lymph % (Auto) Lymph # (Auto) [place] # (Auto) Seg Neutrophils % Seg Neuts % (Manual) Lymphocytes % (Manual) Nucleated RBC % Seg Neutrophils # Seg Neutrophils # Man Lymphocytes # (Manual) Monocytes # (Manual) D-Dimer ABG pH POC ABG pCO2 POC ABG pO2 76.8 L ABG Hemoglobin 8.6 L ABG Oxyhemoglobin ABG Sodium ABG Potassium ABG Chloride 112.0 H ABG Glucose 126 H Carboxyhemoglobin 0.4 L Sodium Potassium Chloride Carbon Dioxide BUN Creatinine Glucose POC Glucose 127 H 128 H Lactic Acid Calcium Magnesium AST ALT Total Protein Albumin Arterial Blood Glucose 126 H Arterial Blood Ionized Calcium 4.4 L Urine WBC (Auto) Urine Creatinine 08/13/21 08/14/21 08/14/21 23:27 04:00 04:00 WBC RBC 2.65 L Hgb 8.1 L Hct 24.0 L RDW 17.1 H Lymph % (Auto) Lymph # (Auto) [place] # (Auto) Seg Neutrophils % Seg Neuts % (Manual) Lymphocytes % (Manual) Nucleated RBC % Seg Neutrophils # Seg Neutrophils # Man Lymphocytes # (Manual) Monocytes # (Manual) D-Dimer ABG pH POC ABG pCO2 POC ABG pO2 ABG Hemoglobin ABG Oxyhemoglobin ABG Sodium ABG Potassium ABG Chloride ABG Glucose Carboxyhemoglobin Sodium 146 H Potassium Chloride 108.7 H Carbon Dioxide 31 H BUN 38 H Creatinine Glucose 115 H POC Glucose 125 H Lactic Acid Calcium Magnesium AST ALT Total Protein 5.8 L Albumin 2.6 L Arterial Blood Glucose Arterial Blood Ionized Calcium Urine WBC (Auto) Urine Creatinine 08/14/21 08/14/21 08/15/21 05:24 11:34 05:16 WBC RBC Hgb Hct RDW Lymph % (Auto) Lymph # (Auto) [place] # (Auto) Seg Neutrophils % Seg Neuts % (Manual) Lymphocytes % (Manual) Nucleated RBC % Seg Neutrophils # Seg Neutrophils # Man Lymphocytes # (Manual) Monocytes # (Manual) D-Dimer ABG pH POC ABG pCO2 POC ABG pO2 ABG Hemoglobin ABG Oxyhemoglobin ABG Sodium ABG Potassium ABG Chloride ABG Glucose Carboxyhemoglobin Sodium Potassium Chloride Carbon Dioxide BUN Creatinine Glucose POC Glucose 126 H 126 H 110 H Lactic Acid Calcium Magnesium AST ALT Total Protein Albumin Arterial Blood Glucose Arterial Blood Ionized Calcium Urine WBC (Auto) Urine Creatinine 08/15/21 08/15/21 08/15/21 11:37 17:48 Unknown WBC RBC 2.53 L Hgb 7.7 L Hct 23.0 L RDW 17.0 H Lymph % (Auto) 12.5 L Lymph # (Auto) 1.0 L [place] # (Auto) Seg Neutrophils % 80.4 H Seg Neuts % (Manual) Lymphocytes % (Manual) Nucleated RBC % Seg Neutrophils # Seg Neutrophils # Man Lymphocytes # (Manual) Monocytes # (Manual) D-Dimer ABG pH POC ABG pCO2 POC ABG pO2 ABG Hemoglobin ABG Oxyhemoglobin ABG Sodium ABG Potassium ABG Chloride ABG Glucose Carboxyhemoglobin Sodium Potassium Chloride Carbon Dioxide BUN Creatinine Glucose POC Glucose 106 H 110 H Lactic Acid Calcium Magnesium AST ALT Total Protein Albumin Arterial Blood Glucose Arterial Blood Ionized Calcium Urine WBC (Auto) Urine Creatinine 08/15/21 08/16/21 08/16/21 Unknown 05:40 12:00 WBC RBC Hgb Hct RDW Lymph % (Auto) Lymph # (Auto) [place] # (Auto) Seg Neutrophils % Seg Neuts % (Manual) Lymphocytes % (Manual) Nucleated RBC % Seg Neutrophils # Seg Neutrophils # Man Lymphocytes # (Manual) Monocytes # (Manual) D-Dimer ABG pH POC ABG pCO2 POC ABG pO2 ABG Hemoglobin ABG Oxyhemoglobin ABG Sodium ABG Potassium ABG Chloride ABG Glucose Carboxyhemoglobin Sodium Potassium Chloride 107.2 H Carbon Dioxide BUN 36 H Creatinine Glucose 109 H POC Glucose 111 H 114 H Lactic Acid Calcium Magnesium AST ALT 63 H Total Protein 5.5 L Albumin 2.4 L Arterial Blood Glucose Arterial Blood Ionized Calcium Urine WBC (Auto) Urine Creatinine Chest x-ray: other (none today) Allied health notes reviewed: nursing
[2021-08-16 12:43] LABS: Hematocrit 22.8 % (30.3-42.9); Hemoglobin 7.3 gm/dl (10.1-14.3); Mean Corpuscular HGB Conc 32 % (30-34); Mean Corpuscular Volume 90 fl (79-97); Platelet Count 274 K/mm3 (140-440); Red Blood Count 2.54 M/mm3 (3.65-5.03); Red Cell Distribution Width 17.1 % (13.2-15.2)
[2021-08-16 13:01] LABS: Blood Urea Nitrogen 39 mg/dL (7-17); Calcium 8.6 mg/dL (8.4-10.2); Hemolysis Index 0
[2021-08-16 13:04] LABS: BUN/Creatinine Ratio 56
--- NOTE | 2021-08-16 18:16 | Progress Note ---
<AMYKIMMY CalvoEtelvina - Last Filed: 08/16/21 18:11> Assessment and Plan Assessment and plan: This is a 66-year-old female with HTN, DM, HLD and COPD admitted for acute hypoxic respiratory failure, COPD exacerbation, pneumonia and left lower leg DVT Neuro: Acute metabolic encephalopathy; agitation -Sedated with Versed and fentanyl, Seroquel -RASS goal -2 to -3 -Avoid delirium -Reorientation as needed -Bilateral restraints for safety -Daily SAT limited by agitation hypoxia Cardio: ST, h/o HTN, s/p cardiac arrest, h/o HLD -Echocardiogram completed-> EF 50 to 55% with mild diastolic dysfunction -Blood pressure monitor per protocol -MAP goal > 65 -Patient had cardiac arrest on 07/29 and was intubated -Antihypertensives prn Respiratory: Acute hypoxic respiratory failure, COPD exacerbation; lung ca with mediastinal mass -CCM consulted, appreciate recommendations - S/P trach and PEG 08/10 -S/p emergent surgery for control of hemorrhage from tracheostomy site on 08/12/2021 -VAP bundle -Daily SBT and SAT trials as tolerated -intubated with 7.50 ETT at 22 at the lips on 07/29 see RT flow sheet for vent settings Started on a CPAP trial this morning however she failed due to tachycardia and tachypnea -Daily ABG and CXR -Continue SPO2 monitoring -A.m. vent settings: Assist-control rate 16, tidal volume 450, PEEP 8, 30% FiO2 GI: MO -NTR consult for tube feeding -BR: MiraLAX, Senokot, PRN ducolax -24-hour +906 mL -PPI : Acute kidney injury likely 2/2 vasomotor nephropathy/pre-renal; hyperchloremia -Nephrology consulted, appreciate recommendations -08/01 FeNA calculated at 0.13-> indicating prerenal -trend Cr -Strict intake and output -Avoid nephrotoxic medications -Renally dose medications -Elizabeth in place; Elizabeth changed on 08/05 -follow and replace electrolytes as needed -Free water flush 200 every 4 ID: Acute sepsis, pneumonia; febrile -ABX therapy: Cefepime -07/27 BC x2 with no growth after 4 days -07/29 tracheal aspirate with no growth -follow culture data -Monitor CBCs and fever curve -febrile to 100 -ID following Heme: Left lower leg DVT, lung mass likely breast carcinoma with metastasis -cont Lovenox- HOLD AT MN -SCDs to bilateral lower extremities while in bed -Trend CBC -evidenced on BLE US -heme onc following Oncology: h/o breast cancer, Lung mass, breast carcinoma with metastasis -CXR shows suspicious nodular density at the left base -08/02 bronchoscopy -Heme/oncology consulted, appreciate recommendations -08/02 bronchoscopy completed; washings and brush sent for cytology, cell count and AFB-> preliminary results obtained, see report -08/02: AFB from bronc negative -08/02 PTH surgical report: Biomarker ER, UT, HER-2 negative, TTF1 and HMB 4 5 are not expressed -CEA low -Heme onc following ? transfer to higher level of care oncologist Dr. Wade at [facility] at [phone] Endo: h/o DM; stress hyperglycemia -SSI -Avoid hypoglycemia -Lantus, titrate as needed The high probability of a clinically significant, sudden or life threatening deterioration of the [multi] system(s) required my full and direct attention, intervention and personal management. The aggregate critical care time was [60] minutes. This time is in addition to time spent performing reported procedures but includes the following: [x] Data Review and interpretation [x] Patient assessment and monitoring of vital signs [x] Documentation [x] Medication orders and management Disposition Plan: icu Total Time Spent with Patient (Minutes): 60 History Interval history: This is a 66-year-old female with HTN, DM, HLD and COPD who presented to emergency department on 07/28 with complaints of difficulty in breathing ongoing for the past few days via EMS. En route she was given Solu-Medrol IV magnesium and albuterol nebulizing treatment. Upon arrival to emergency department isatu bernal had multiple rounds of embolizing treatments and was subsequently placed on BiPAP with some improvement. Patient has been fully vaccinated. Work-up in the emergency department revealed CXR suspicious for right-sided pneumonia, nodular density in the left base and increased interstitial markings which may be chronic. Patient was admitted to the hospitalist service with electrolyte imbalances, leukocytosis, COPD exacerbation, hypoxia and possible pneumonia. 07/29/2021. Patient seen this morning with Shabbir-Chavira respiration/agonal breathing. RENEE ABREU was called and patient was intubated and placed on mechanical ventilation. Patient transferred to ICU. Critical care/pulmonary consulted. Patient currently with AC mode rate of 30, FiO2 100%, PEEP of 12. Continue IV antibiotics. Consult ID and oncology for further evaluation. Patient will likely need bronchoscopy for further evaluation of the lung mass. Doppler ultrasound revealedLLE DVT. Start anticoagulation. 07/30/2021. Patient appears much improved and more responsive this morning. Patient currently with AC mode ventilation rate of 24, tidal volume 450, PEEP of 8 and FiO2 35%. Spontaneous breathing trials with possible extubation today per pulmonary. Bronchoscopy per pulmonary. Continue Lovenox twice daily for DV T. Continue IV antibiotics for sepsis/pneumonia. ID consultation pending. Follow-up [facility], CA 15-3, [place] 2729. 07/31/2021. Echocardiogram reveals left ventricular size and function are normal. EF 50 to 55% with mild diastolic dysfunction. Patient currently with CPAP/PSV trial 11/02. Anticipate extubation today per pulmonary. Bronchoscopy per pulmonary. Continue Lovenox twice daily for DVT. Continue IV antibiotics for sepsis/pneumonia. ID consultation pending. Follow-up CEA, CA 15-3, [place] 2729. 08/01: ALIYAH 08/02: Patient had a bronchoscopy today. Cell count, cytology and AFB sent from samples. Patient remains sedated on fentanyl and Versed. Patient and daughter Rosana were updated. 08/03: [facility] and was informed patient specimens indicate cancer. Communicated to Dr. Abbott and he stated he will update family. 08/04: Patient remains sedated on fentanyl and Versed, patient has moments of agitation with any stimulation. CPAP trial unable to be completed today due to agitation. 08/05: Patient had low urine output overnight and Elizabeth catheter was changed this a.m. with 2 L of urine output received. Patient did have a increase in creatinine however this may have been obstructive process and nephrology is aware. Hematology/oncology spoke to family who wishes for everything to be done despite bronchial washings with cancer cells. [facility] contacted patient's oncologist to help facilitate transfer. We attempted to hold sedation for CPAP trial however patient became extremely agitated and sedation was restarted. 08/06: Surgery consulted for possible trach. Leukocytosis and renal function slowly improving. No acute events reported overnight. 08/07: Creatinine continues to decrease, patient has slight hyper natremia and hyperchloremia. Patient remains on fentanyl and Versed with periods of agitation. Increasing free water flushes. 08-08 improving cr; febrile; family wants full care/full code- heme onc following 08-09 LOW GRADE FEVERS; FOR TRACH/PEG WED AM 08/10: Patient seen and examined, had Bronchoscopy and Trach and PEG today, follow report. Continue supportive care. 08/11: Patient remains on full vent support. Continue supportive care. 08/12: This morning patient noted with bleeding around trach surgery consulted going for emergent surgery. Labs ordered 08/13: Patient seen and examined, no further bleeding, had surgical intervention yesterday for trach site bleeding. No further bleeding this am. Patient otherwise remains on mechanical ventilation. Leukocytosis mildly worsened today this could be reactive has no fever will monitor mental status is still severely encephalopathic. 08/14/21 patient seen and examined. Lab and medication reviewed. No further bleeding from track site. Hemoglobin is 8.1. Hematocrit 24.2 and WBC 9.7. Continue current management and supportive care. Recheck CBC CMP in the morning 08/15: Overnight patient experienced sinus pericardia with return, will receive MiraLAX and CPAP trial today. 08/16: CPAP trial failed today. Hospitalist Physical - Constitutional Vitals: Temp Pulse Resp BP Pulse Ox 98.4 F 99 H 16 134/71 100 08/16/21 12:00 08/16/21 16:22 08/16/21 16:22 08/16/21 16:19 08/16/21 16:29 General appearance: Present: no acute distress, well-nourished, other - EENT Eyes: Present: PERRL, EOM intact ENT: poor dentition - Neck Neck: Present: supple, normal ROM - Respiratory Respiratory effort: normal Respiratory: bilateral: diminished - Cardiovascular Rhythm: regular Heart Sounds: Present: S1 & S2. Absent: systolic murmur, diastolic murmur - Extremities Extremities: no ischemia, pulses intact, pulses symmetrical, No edema, normal temperature, normal color Peripheral Pulses: within normal limits - Abdominal General gastrointestinal: soft, non-tender, non-distended, normal bowel sounds - Integumentary Integumentary: Present: warm - Psychiatric Psychiatric: other (sedated) - Neurologic Neurologic: other (sedated) - Allied Health Allied health notes reviewed: nursing, RT, social work Results - Labs CBC & Chem 7: 08/16/21 12:36 08/16/21 12:36 Labs: Laboratory Last Values WBC 7.1 K/mm3 (4.5-11.0) 08/16/21 12:36 RBC 2.54 M/mm3 (3.65-5.03) L 08/16/21 12:36 Hgb 7.3 gm/dl (10.1-14.3) L 08/16/21 12:36 Hct 22.8 % (30.3-42.9) L 08/16/21 12:36 MCV 90 fl (79-97) 08/16/21 12:36 MCH 29 pg (28-32) 08/16/21 12:36 MCHC 32 % (30-34) 08/16/21 12:36 RDW 17.1 % (13.2-15.2) H 08/16/21 12:36 Plt Count 274 K/mm3 (140-440) 08/16/21 12:36 Lymph % (Auto) 12.5 % (13.4-35.0) L 08/15/21 Unknown [place] % (Auto) 5.9 % (0.0-7.3) 08/15/21 Unknown Eos % (Auto) 0.9 % (0.0-4.3) 08/15/21 Unknown Baso % (Auto) 0.3 % (0.0-1.8) 08/15/21 Unknown Lymph # (Auto) 1.0 K/mm3 (1.2-5.4) L 08/15/21 Unknown [place] # (Auto) 0.5 K/mm3 (0.0-0.8) 08/15/21 Unknown Eos # (Auto) 0.1 K/mm3 (0.0-0.4) 08/15/21 Unknown Baso # (Auto) 0.0 K/mm3 (0.0-0.1) 08/15/21 Unknown Add Manual Diff Complete 08/05/21 04:50 Total Counted 100 08/05/21 04:50 Seg Neutrophils % 80.4 % (40.0-70.0) H 08/15/21 Unknown Seg Neuts % (Manual) 75.0 % (40.0-70.0) H 08/05/21 04:50 Band Neutrophils % 8.0 % 08/05/21 04:50 Lymphocytes % (Manual) 2.0 % (13.4-35.0) L 08/05/21 04:50 Monocytes % (Manual) 5.0 % (0.0-7.3) 08/05/21 04:50 Eosinophils % (Manual) 1.0 % (0.0-4.3) 08/05/21 04:50 Metamyelocytes % 6.0 % 08/05/21 04:50 Myelocytes % 3.0 % 08/05/21 04:50 Nucleated RBC % Not Reportable 08/05/21 04:50 Seg Neutrophils # 6.4 K/mm3 (1.8-7.7) 08/15/21 Unknown Seg Neutrophils # Man 14.3 K/mm3 (1.8-7.7) H 08/05/21 04:50 Band Neutrophils # 1.5 K/mm3 08/05/21 04:50 Lymphocytes # (Manual) 0.4 K/mm3 (1.2-5.4) L 08/05/21 04:50 Abs React Lymphs (Man) 0.0 K/mm3 08/05/21 04:50 Monocytes # (Manual) 1.0 K/mm3 (0.0-0.8) H 08/05/21 04:50 Eosinophils # (Manual) 0.2 K/mm3 (0.0-0.4) 08/05/21 04:50 Basophils # (Manual) 0.0 K/mm3 (0.0-0.1) 08/05/21 04:50 Metamyelocytes # 1.1 K/mm3 08/05/21 04:50 Myelocytes # 0.6 K/mm3 08/05/21 04:50 Promyelocytes # 0.0 K/mm3 08/05/21 04:50 Blast Cells # 0.0 K/mm3 08/05/21 04:50 WBC Morphology Not Reportable 08/05/21 04:50 Hypersegmented Neuts Not Reportable 08/05/21 04:50 Hyposegmented Neuts Not Reportable 08/05/21 04:50 Hypogranular Neuts Not Reportable 08/05/21 04:50 Smudge Cells Not Reportable 08/05/21 04:50 Toxic Granulation Not Reportable 08/05/21 04:50 Toxic Vacuolation Not Reportable 08/05/21 04:50 Dohle Bodies Not Reportable 08/05/21 04:50 Pelger-Huet Anomaly Not Reportable 08/05/21 04:50 Beryl Rods Not Reportable 08/05/21 04:50 Platelet Estimate Consistent w auto 08/05/21 04:50 Clumped Platelets Not Reportable 08/05/21 04:50 Plt Clumps, EDTA Not Reportable 08/05/21 04:50 Large Platelets Not Reportable 08/05/21 04:50 Giant Platelets Not Reportable 08/05/21 04:50 Platelet Satelliting Not Reportable 08/05/21 04:50 Plt Morphology Comment Not Reportable 08/05/21 04:50 RBC Morphology Not Reportable 08/05/21 04:50 Dimorphic RBCs Not Reportable 08/05/21 04:50 Polychromasia Not Reportable 08/05/21 04:50 Hypochromasia Not Reportable 08/05/21 04:50 Poikilocytosis Not Reportable 08/05/21 04:50 Anisocytosis Not Reportable 08/05/21 04:50 Microcytosis Not Reportable 08/05/21 04:50 Macrocytosis Not Reportable 08/05/21 04:50 Spherocytes Not Reportable 08/05/21 04:50 Pappenheimer Bodies Not Reportable 08/05/21 04:50 Sickle Cells Not Reportable 08/05/21 04:50 Target Cells Not Reportable 08/05/21 04:50 Tear Drop Cells Not Reportable 08/05/21 04:50 Ovalocytes Few 08/05/21 04:50 Helmet Cells Not Reportable 08/05/21 04:50 Apul-Choctaw Bodies Not Reportable 08/05/21 04:50 Madras Rings Not Reportable 08/05/21 04:50 Albion Cells Not Reportable 08/05/21 04:50 Bite Cells Not Reportable 08/05/21 04:50 Crenated Cell Not Reportable 08/05/21 04:50 Elliptocytes Not Reportable 08/05/21 04:50 Acanthocytes (Spur) Not Reportable 08/05/21 04:50 Rouleaux Not Reportable 08/05/21 04:50 Hemoglobin C Crystals Not Reportable 08/05/21 04:50 Schistocytes Not Reportable 08/05/21 04:50 Malaria parasites Not Reportable 08/05/21 04:50 Gurmeet Bodies Not Reportable 08/05/21 04:50 Hem Pathologist Commnt No 08/05/21 04:50 PT 14.5 Sec. (12.2-14.9) 08/12/21 21:41 INR 1.08 (0.87-1.13) 08/12/21 21:41 APTT 29.9 Sec. (24.2-36.6) 08/10/21 05:20 D-Dimer 852.47 ng/mlDDU (0-234) H 07/29/21 07:17 ABG pH 7.399 (7.320-7.450) 08/13/21 05:43 POC ABG pCO2 44.3 mmHg (32.0-48.0) 08/13/21 05:43 POC ABG pO2 76.8 mmHg (83-108) L 08/13/21 05:43 POC ABG HCO3 26.8 08/13/21 05:43 ABG O2 Saturation 94.7 (0-100) 08/13/21 05:43 POC ABG Base Excess 1.7 08/13/21 05:43 ABG Hemoglobin 8.6 (12.0-17.5) L 08/13/21 05:43 ABG Oxyhemoglobin 94.0 (94-98) 08/13/21 05:43 ABG Methemoglobin 0.3 (0.0-1.5) 08/13/21 05:43 ABG Sodium 142.6 mmol/L (136.0-145.0) 08/13/21 05:43 ABG Potassium 3.9 mmol/L (3.40-4.50) 08/13/21 05:43 ABG Chloride 112.0 mmol/L (98-107) H 08/13/21 05:43 ABG Glucose 126 mg/dL (65-95) H 08/13/21 05:43 Carboxyhemoglobin 0.4 (0.5-1.5) L 08/13/21 05:43 FiO2 % 30.0 08/13/21 05:43 Sodium 139 mmol/L (137-145) 08/16/21 12:36 Potassium 4.2 mmol/L (3.6-5.0) 08/16/21 12:36 Chloride 102.9 mmol/L (98-107) 08/16/21 12:36 Carbon Dioxide 24 mmol/L (22-30) 08/16/21 12:36 Anion Gap 16 mmol/L 08/16/21 12:36 BUN 39 mg/dL (7-17) H 08/16/21 12:36 Creatinine 0.7 mg/dL (0.6-1.2) 08/16/21 12:36 Estimated GFR > 60 ml/min 08/16/21 12:36 BUN/Creatinine Ratio 56 % 08/16/21 12:36 Glucose 123 mg/dL (65-100) H 08/16/21 12:36 POC Glucose 112 mg/dL (70-105) H 08/16/21 17:08 Lactic Acid 2.10 mmol/L (0.7-2.0) H* 08/03/21 15:11 Calcium 8.6 mg/dL (8.4-10.2) 08/16/21 12:36 Phosphorus 4.10 mg/dL (2.5-4.5) 08/08/21 06:00 Magnesium 1.70 mg/dL (1.7-2.3) 08/12/21 21:41 Total Bilirubin 0.40 mg/dL (0.1-1.2) 08/15/21 Unknown AST 40 units/L (5-40) 08/15/21 Unknown ALT 63 units/L (7-56) H 08/15/21 Unknown Alkaline Phosphatase 102 units/L (35-129) 08/15/21 Unknown Total Protein 5.5 g/dL (6.3-8.2) L 08/15/21 Unknown Albumin 2.4 g/dL (3.9-5) L 08/15/21 Unknown Albumin/Globulin Ratio 0.8 % 08/15/21 Unknown Carcinoembryonic Ag <0.5 ng/mL (0.0-2.4) 07/31/21 04:45 Arterial Blood Glucose 126 mg/dL (65-95) H 08/13/21 05:43 Arterial Blood Ionized Calcium 4.4 mg/dL (4.6-5.3) L 08/13/21 05:43 Urine Color Yellow (Yellow) 08/08/21 20:27 Urine Turbidity Slightly-cloudy (Clear) 08/08/21 20: Urine pH 5.0 (5.0-7.0) 08/08/21 20: Ur Specific Mott 1.014 (1.003-1.030) 08/08/21 20: Urine Protein 30 mg/dl mg/dL (Negative) 08/08/21 20:27 Urine Glucose (UA) Neg mg/dL (Negative) 08/08/21 20: Urine Ketones Neg mg/dL (Negative) 08/08/21 20: Urine Blood Mod (Negative) 08/08/21 20: Urine Nitrite Neg (Negative) 08/08/21 20: Urine Bilirubin Neg (Negative) 08/08/21 20: Urine Urobilinogen < 2.0 mg/dL (<2.0) 08/08/21 20: Ur Leukocyte Esterase Neg (Negative) 08/08/21 20:27 Urine WBC (Auto) 6.0 /HPF (0.0-6.0) 08/08/21 20: Urine RBC (Auto) 6.0 /HPF (0.0-6.0) 08/08/21 20: U Epithel Cells (Auto) < 1.0 /HPF (0-13.0) 08/08/21 20: Urine Bacteria (Auto) 1+ /HPF (Negative) 08/08/21 20: Urine Mucus Few /HPF 08/08/21 20: Urine Yeast (Budding) 1+ /HPF 08/08/21 20: Urine Creatinine 125.6 mg/dL (0.1-20.0) H 08/01/21 Unknown Urine Sodium 12 mmol/L 08/01/21 Unknown Double Strand DNA Ab 1 IU/mL (<=4) 08/02/21 15:40 Coronavirus (PCR) Negative (Negative) 07/29/21 07:58 Hepatitis A IgM Ab Non-reactive (NonReactive) 08/02/21 15:40 Hep Bs Antigen Nonreactive (Negative) 08/02/21 15:40 Hep B Core IgM Ab Non-reactive (NonReactive) 08/02/21 15:40 Hepatitis C Antibody Non-reactive (NonReactive) 08/02/21 15:40 AFB Identification Negative 08/02/21 14:30 Elizabeth/IV: Voiding Method Indwelling Catheter Active Medications - Current Medications Current Medications: Generic Name Dose Route Start Last Admin Trade Name Freq PRN Reason Stop Dose Admin Acetaminophen 650 mg 07/28/21 02:11 Acetaminophen 325 Mg Tab PO Q6H PRN Pain MILD(1-3)/Fever >100.5/GARCIA Albuterol/Ipratropium 1 ampul 07/28/21 14:00 08/16/21 16:21 Ipratropium/Albuterol Sulfate 3 Ml Ampul.Neb IH 1 ampul TID DEMIAN Administration Lipase/Protease/Amylase 1 each 07/29/21 13:01 Lipase 10,500/Protease 25,000/Amylase 43,750 (Units) Dr Campoverde FEEDTUBE PRN PRN For Clogged Feeding Tube Arformoterol Tartrate 15 mcg 07/28/21 20:00 08/16/21 07:44 Arformoterol 15 Mcg/2 Ml Nebu IH 15 mcg Q12HRT DEMIAN Administration Bisacodyl 10 mg 08/07/21 09:50 Bisacodyl 10 Mg Rect Supp UT QDAY PRN Constip unreliev by MOM/or NPO Budesonide 0.5 mg 07/28/21 20:00 08/16/21 07:44 Budesonide 0.5 Mg/2 Ml Nebu IH 0.5 mg Q12HRT DEMIAN Administration Dextrose 50 ml 07/28/21 02:11 08/10/21 18:05 Dextrose 50% In Water (25gm) 50 Ml Syringe IV 20 ml Q30MIN PRN Administration Hypoglycemia Protocol Enoxaparin Sodium 100 mg 08/11/21 10:00 08/16/21 10:32 Enoxaparin 100 Mg/1 Ml Inj SUB-Q 100 mg Q12HR DEMIAN Administration Protocol Famotidine 20 mg 08/15/21 10:00 08/16/21 10:32 Famotidine 20 Mg Tab FEEDTUBE 20 mg BID DEMIAN Administration Fentanyl 50 mcg 07/29/21 10:42 08/04/21 09:05 Fentanyl 100 Mcg/2 Ml Inj IV 50 mcg Q10MIN PRN Administration ANALGESIA Hydralazine HCl 10 mg 07/30/21 14:52 08/03/21 17:31 Hydralazine 20 Mg/1 Ml Inj IV 10 mg Q6H PRN Administration SBP > 165 Hydrophilic Ointment 1 applic 07/29/21 10:42 Lip Therapy Vaseline TP Q2HR PRN Dry Lips Fentanyl Citrate 2,000 mcg in 100 mls @ 5.35 mls/hr 07/29/21 11:00 08/16/21 10:46 Fentanyl Drip Premix IV 2 mcg/kg/hr TITR DEMIAN 10.7 mls/hr Administration Protocol 1 MCG/KG/HR Midazolam HCl 100 mg/ Sodium 100 mls @ 2 mls/hr 07/29/21 11:00 08/15/21 12:30 Chloride IV 2 mg/hr TITR DEMIAN 2 mls/hr Titration Protocol 2 MG/HR Norepinephrine 4 mg in 250 mls @ 7.5 mls/hr 07/29/21 21:00 Levophed Drip 4 Mg/Ns 250 Ml IV TITR DEMIAN Protocol 2 MCG/MIN Insulin Human Lispro 0 unit 07/29/21 12:00 08/16/21 11:47 Insulin Lispro 100 Unit/Ml SUB-Q Not Given Q6HR DEMIAN Protocol Magnesium Hydroxide 30 ml 07/28/21 02:11 Magnesium Hydroxide (Mom) Oral Liqd Udc PO Q4H PRN Constipation Midazolam HCl 2 mg 07/29/21 10:42 08/10/21 20:58 Midazolam 2 Mg/2 Ml Inj IV 2 mg Q10MIN PRN Administration Sedation Multi-Ingred Cream/Lotion/Oil/Oint 1 applic 07/29/21 10:42 Mineral Oil/Petrolatum, White Ophth Oint 3.5 Gm OU Q4HR PRN Dry Eye(s) Oxycodone HCl 15 mg 08/15/21 10:00 08/16/21 10:32 Oxycodone 5 Mg Tab PO 15 mg Q6H DEMIAN Administration Polyethylene Glycol 17 gm 08/11/21 16:00 08/16/21 10:32 Polyethylene Glycol 3350 17 Gm Powder PO 17 gm QDAY EDMIAN Administration Quetiapine Fumarate 100 mg 08/16/21 13:49 Quetiapine 100 Mg Tab PO BID DEMIAN Senna/Docusate Sodium 1 tab 08/11/21 13:00 08/16/21 14:52 Sennosides/Docusate Sodium 8.6/50 Mg Tab FEEDTUBE 1 tab Q8H DEMIAN Administration Simple Syrup 15 ml 07/29/21 13:01 Simple Syrup 15 Ml FEEDTUBE PRN PRN Hypoglycemia Simple Syrup 30 ml 07/29/21 13:01 Simple Syrup 15 Ml FEEDTUBE PRN PRN Hypoglycemia Sodium Bicarbonate 325 mg 07/29/21 13:01 Sodium Bicarbonate 325 Mg Tab FEEDTUBE PRN PRN For Clogged Feeding Tube Sodium Chloride 10 ml 07/28/21 10:00 08/16/21 10:33 Sodium Chloride 0.9% 10 Ml Flush Syringe IV 10 ml BID DEMIAN Administration Sodium Chloride 10 ml 07/28/21 02:05 Sodium Chloride 0.9% 10 Ml Flush Syringe IV PRN PRN LINE FLUSH Nutrition/Malnutrition Assess - Dietary Evaluation Nutrition/Malnutrition Findings: Nutrition Notes Start: 07/28/21 14:44 Freq: Status: Active Protocol: Document 08/16/21 15:09 KAREY (Rec: 08/16/21 15:16 [facility] [id number]) Nutrition Notes Initial or Follow up Reassessment Current Diagnosis Diabetes,Hypertension, Respiratory Failure, Hyperlipidemia Current Diet TF - Vital AF 1.2 at 50ml/hr Labs/Tests Na 144 Pertinent Medications Senna, Miralax, Dulcolax Height 5 ft Weight 107 kg [place] Body Weight (kg) 45.45 BMI 46.0 Weight Status Morbidly Obese Subjective/Other Information Spoke with RN via phone at 15: 08. Pt still has not had a BM . Medications given today. Pt tolerating TF at goal rate and remains on vent support. Percent of energy/protein needs met: 78% energy 79% pro Burn Absent Trauma Absent GI Symptoms Constipation #1 Nutrition Diagnosis Inadequate oral intake Diagnosis Progress(for reassessment Continues documentation) Is patient on ventilator? Yes Is Patient Ambulatory and/or Out of Bed No REE-([facility]-confined to bed) 1842.852 Kcal/Kg value to use for calculation 13 Approximate Energy Requirements Using 1391 kcal/Kg Calculation Used for Recommendations Kcal/kg Additional Notes Protein: (up to 2.5g/kg IBW) up to 114g Fluid: 1 ml/kcal or per MD Nutrition Intervention Nutrition Support: Continue Vital AF 1.2 at 50 ml /hr. Per RN, pt receiving 200ml water flush q4h. Kcal 1,440 Protein (gm) 90 Fluid (mL) 973 Goal #1 TF tolerance Goal #2 TF to meet at least 75% energy and pro needs Follow-Up By: 08/23/21 Additional Comments F/U: stable TF, BM, vent status <LINDSAY FARR - Last Filed: 08/17/21 07:21> Assessment and Plan Assessment and plan: I saw and evaluated the patient. Discussed with the nurse practitioner and agree with their findings and plan as documented in this note. Hospitalist Physical - Constitutional Vitals: Temp Pulse Resp BP Pulse Ox 98.3 F 89 13 118/72 100 08/17/21 03:37 08/17/21 06:15 08/17/21 06:15 08/17/21 06:15 08/17/21 06:15 Results - Labs CBC & Chem 7: 08/17/21 Unknown 08/17/21 Unknown Labs: Laboratory Last Values WBC 6.7 K/mm3 (4.5-11.0) 08/17/21 Unknown RBC 2.49 M/mm3 (3.65-5.03) L 08/17/21 Unknown Hgb 7.5 gm/dl (10.1-14.3) L 08/17/21 Unknown Hct 22.2 % (30.3-42.9) L 08/17/21 Unknown MCV 89 fl (79-97) 08/17/21 Unknown MCH 30 pg (28-32) 08/17/21 Unknown MCHC 34 % (30-34) 08/17/21 Unknown RDW 16.5 % (13.2-15.2) H 08/17/21 Unknown Plt Count 262 K/mm3 (140-440) 08/17/21 Unknown Lymph % (Auto) 12.5 % (13.4-35.0) L 08/15/21 Unknown [place] % (Auto) 5.9 % (0.0-7.3) 08/15/21 Unknown Eos % (Auto) 0.9 % (0.0-4.3) 08/15/21 Unknown Baso % (Auto) 0.3 % (0.0-1.8) 08/15/21 Unknown Lymph # (Auto) 1.0 K/mm3 (1.2-5.4) L 08/15/21 Unknown [place] # (Auto) 0.5 K/mm3 (0.0-0.8) 08/15/21 Unknown Eos # (Auto) 0.1 K/mm3 (0.0-0.4) 08/15/21 Unknown Baso # (Auto) 0.0 K/mm3 (0.0-0.1) 08/15/21 Unknown Add Manual Diff Complete 08/05/21 04:50 Total Counted 100 08/05/21 04:50 Seg Neutrophils % 80.4 % (40.0-70.0) H 08/15/21 Unknown Seg Neuts % (Manual) 75.0 % (40.0-70.0) H 08/05/21 04:50 Band Neutrophils % 8.0 % 08/05/21 04:50 Lymphocytes % (Manual) 2.0 % (13.4-35.0) L 08/05/21 04:50 Monocytes % (Manual) 5.0 % (0.0-7.3) 08/05/21 04:50 Eosinophils % (Manual) 1.0 % (0.0-4.3) 08/05/21 04:50 Metamyelocytes % 6.0 % 08/05/21 04:50 Myelocytes % 3.0 % 08/05/21 04:50 Nucleated RBC % Not Reportable 08/05/21 04:50 Seg Neutrophils # 6.4 K/mm3 (1.8-7.7) 08/15/21 Unknown Seg Neutrophils # Man 14.3 K/mm3 (1.8-7.7) H 08/05/21 04:50 Band Neutrophils # 1.5 K/mm3 08/05/21 04:50 Lymphocytes # (Manual) 0.4 K/mm3 (1.2-5.4) L 08/05/21 04:50 Abs React Lymphs (Man) 0.0 K/mm3 08/05/21 04:50 Monocytes # (Manual) 1.0 K/mm3 (0.0-0.8) H 08/05/21 04:50 Eosinophils # (Manual) 0.2 K/mm3 (0.0-0.4) 08/05/21 04:50 Basophils # (Manual) 0.0 K/mm3 (0.0-0.1) 08/05/21 04:50 Metamyelocytes # 1.1 K/mm3 08/05/21 04:50 Myelocytes # 0.6 K/mm3 08/05/21 04:50 Promyelocytes # 0.0 K/mm3 08/05/21 04:50 Blast Cells # 0.0 K/mm3 08/05/21 04:50 WBC Morphology Not Reportable 08/05/21 04:50 Hypersegmented Neuts Not Reportable 08/05/21 04:50 Hyposegmented Neuts Not Reportable 08/05/21 04:50 Hypogranular Neuts Not Reportable 08/05/21 04:50 Smudge Cells Not Reportable 08/05/21 04:50 Toxic Granulation Not Reportable 08/05/21 04:50 Toxic Vacuolation Not Reportable 08/05/21 04:50 Dohle Bodies Not Reportable 08/05/21 04:50 Pelger-Huet Anomaly Not Reportable 08/05/21 04:50 Beryl Rods Not Reportable 08/05/21 04:50 Platelet Estimate Consistent w auto 08/05/21 04:50 Clumped Platelets Not Reportable 08/05/21 04:50 Plt Clumps, EDTA Not Reportable 08/05/21 04:50 Large Platelets Not Reportable 08/05/21 04:50 Giant Platelets Not Reportable 08/05/21 04:50 Platelet Satelliting Not Reportable 08/05/21 04:50 Plt Morphology Comment Not Reportable 08/05/21 04:50 RBC Morphology Not Reportable 08/05/21 04:50 Dimorphic RBCs Not Reportable 08/05/21 04:50 Polychromasia Not Reportable 08/05/21 04:50 Hypochromasia Not Reportable 08/05/21 04:50 Poikilocytosis Not Reportable 08/05/21 04:50 Anisocytosis Not Reportable 08/05/21 04:50 Microcytosis Not Reportable 08/05/21 04:50 Macrocytosis Not Reportable 08/05/21 04:50 Spherocytes Not Reportable 08/05/21 04:50 Pappenheimer Bodies Not Reportable 08/05/21 04:50 Sickle Cells Not Reportable 08/05/21 04:50 Target Cells Not Reportable 08/05/21 04:50 Tear Drop Cells Not Reportable 08/05/21 04:50 Ovalocytes Few 08/05/21 04:50 Helmet Cells Not Reportable 08/05/21 04:50 Paul-[place] Bodies Not Reportable 08/05/21 04:50 Madras Rings Not Reportable 08/05/21 04:50 Estelita Cells Not Reportable 08/05/21 04:50 Bite Cells Not Reportable 08/05/21 04:50 Crenated Cell Not Reportable 08/05/21 04:50 Elliptocytes Not Reportable 08/05/21 04:50 Acanthocytes (Spur) Not Reportable 08/05/21 04:50 Rouleaux Not Reportable 08/05/21 04:50 Hemoglobin C Crystals Not Reportable 08/05/21 04:50 Schistocytes Not Reportable 08/05/21 04:50 Malaria parasites Not Reportable 08/05/21 04:50 Gurmeet Bodies Not Reportable 08/05/21 04:50 Hem Pathologist Commnt No 08/05/21 04:50 PT 14.5 Sec. (12.2-14.9) 08/12/21 21:41 INR 1.08 (0.87-1.13) 08/12/21 21:41 APTT 29.9 Sec. (24.2-36.6) 08/10/21 05:20 D-Dimer 852.47 ng/mlDDU (0-234) H 07/29/21 07:17 ABG pH 7.399 (7.320-7.450) 08/13/21 05:43 POC ABG pCO2 44.3 mmHg (32.0-48.0) 08/13/21 05:43 POC ABG pO2 76.8 mmHg (83-108) L 08/13/21 05:43 POC ABG HCO3 26.8 08/13/21 05:43 ABG O2 Saturation 94.7 (0-100) 08/13/21 05:43 POC ABG Base Excess 1.7 08/13/21 05:43 ABG Hemoglobin 8.6 (12.0-17.5) L 08/13/21 05:43 ABG Oxyhemoglobin 94.0 (94-98) 08/13/21 05:43 ABG Methemoglobin 0.3 (0.0-1.5) 08/13/21 05:43 ABG Sodium 142.6 mmol/L (136.0-145.0) 08/13/21 05:43 ABG Potassium 3.9 mmol/L (3.40-4.50) 08/13/21 05:43 ABG Chloride 112.0 mmol/L (98-107) H 08/13/21 05:43 ABG Glucose 126 mg/dL (65-95) H 08/13/21 05:43 Carboxyhemoglobin 0.4 (0.5-1.5) L 08/13/21 05:43 FiO2 % 30.0 08/13/21 05:43 Sodium 139 mmol/L (137-145) 08/17/21 Unknown Potassium 4.1 mmol/L (3.6-5.0) 08/17/21 Unknown Chloride 102.6 mmol/L (98-107) 08/17/21 Unknown Carbon Dioxide 24 mmol/L (22-30) 08/17/21 Unknown Anion Gap 17 mmol/L 08/17/21 Unknown BUN 37 mg/dL (7-17) H 08/17/21 Unknown Creatinine 0.8 mg/dL (0.6-1.2) 08/17/21 Unknown Estimated GFR > 60 ml/min 08/17/21 Unknown BUN/Creatinine Ratio 46 % 08/17/21 Unknown Glucose 117 mg/dL (65-100) H 08/17/21 Unknown POC Glucose 121 mg/dL (70-105) H 08/17/21 05:26 Lactic Acid 2.10 mmol/L (0.7-2.0) H* 08/03/21 15:11 Calcium 8.9 mg/dL (8.4-10.2) 08/17/21 Unknown Phosphorus 4.10 mg/dL (2.5-4.5) 08/08/21 06:00 Magnesium 1.70 mg/dL (1.7-2.3) 08/12/21 21:41 Total Bilirubin 0.40 mg/dL (0.1-1.2) 08/15/21 Unknown AST 40 units/L (5-40) 08/15/21 Unknown ALT 63 units/L (7-56) H 08/15/21 Unknown Alkaline Phosphatase 102 units/L (35-129) 08/15/21 Unknown Total Protein 5.5 g/dL (6.3-8.2) L 08/15/21 Unknown Albumin 2.4 g/dL (3.9-5) L 08/15/21 Unknown Albumin/Globulin Ratio 0.8 % 08/15/21 Unknown Carcinoembryonic Ag <0.5 ng/mL (0.0-2.4) 07/31/21 04:45 Arterial Blood Glucose 126 mg/dL (65-95) H 08/13/21 05:43 Arterial Blood Ionized Calcium 4.4 mg/dL (4.6-5.3) L 08/13/21 05:43 Urine Color Yellow (Yellow) 08/08/21 20: Urine Turbidity Slightly-cloudy (Clear) 08/08/21 20: Urine pH 5.0 (5.0-7.0) 08/08/21 20:27 Ur Specific Mott 1.014 (1.003-1.030) 08/08/21 20: Urine Protein 30 mg/dl mg/dL (Negative) 08/08/21 20: Urine Glucose (UA) Neg mg/dL (Negative) 08/08/21 20: Urine Ketones Neg mg/dL (Negative) 08/08/21 20: Urine Blood Mod (Negative) 08/08/21 20: Urine Nitrite Neg (Negative) 08/08/21 20: Urine Bilirubin Neg (Negative) 08/08/21 20: Urine Urobilinogen < 2.0 mg/dL (<2.0) 08/08/21 20:27 Ur Leukocyte Esterase Neg (Negative) 08/08/21 20:27 Urine WBC (Auto) 6.0 /HPF (0.0-6.0) 08/08/21 20: Urine RBC (Auto) 6.0 /HPF (0.0-6.0) 08/08/21 20:27 U Epithel Cells (Auto) < 1.0 /HPF (0-13.0) 08/08/21 20:27 Urine Bacteria (Auto) 1+ /HPF (Negative) 08/08/21 20: Urine Mucus Few /HPF 08/08/21 20: Urine Yeast (Budding) 1+ /HPF 08/08/21 20: Urine Creatinine 125.6 mg/dL (0.1-20.0) H 08/01/21 Unknown Urine Sodium 12 mmol/L 08/01/21 Unknown Double Strand DNA Ab 1 IU/mL (<=4) 08/02/21 15:40 Coronavirus (PCR) Negative (Negative) 07/29/21 07:58 Hepatitis A IgM Ab Non-reactive (NonReactive) 08/02/21 15:40 Hep Bs Antigen Nonreactive (Negative) 08/02/21 15:40 Hep B Core IgM Ab Non-reactive (NonReactive) 08/02/21 15:40 Hepatitis C Antibody Non-reactive (NonReactive) 08/02/21 15:40 AFB Identification Negative 08/02/21 14:30 Elizabeth/IV: Voiding Method Indwelling Catheter Active Medications - Current Medications Current Medications: Generic Name Dose Route Start Last Admin Trade Name Freq PRN Reason Stop Dose Admin Acetaminophen 650 mg 07/28/21 02:11 Acetaminophen 325 Mg Tab PO Q6H PRN Pain MILD(1-3)/Fever >100.5/GARCIA Albuterol/Ipratropium 1 ampul 07/28/21 14:00 08/16/21 21:26 Ipratropium/Albuterol Sulfate 3 Ml Ampul.Neb IH Not Given TID DEMIAN Lipase/Protease/Amylase 1 each 07/29/21 13:01 Lipase 10,500/Protease 25,000/Amylase 43,750 (Units) Dr Campoverde FEEDTUBE PRN PRN For Clogged Feeding Tube Arformoterol Tartrate 15 mcg 07/28/21 20:00 08/16/21 21:26 Arformoterol 15 Mcg/2 Ml Nebu IH 15 mcg Q12HRT DEMIAN Administration Bisacodyl 10 mg 08/07/21 09:50 08/16/21 18:32 Bisacodyl 10 Mg Rect Supp UT 10 mg QDAY PRN Administration Constip unreliev by MOM/or NPO Budesonide 0.5 mg 07/28/21 20:00 08/16/21 21:26 Budesonide 0.5 Mg/2 Ml Nebu IH 0.5 mg Q12HRT DEMIAN Administration Dextrose 50 ml 07/28/21 02:11 08/10/21 18:05 Dextrose 50% In Water (25gm) 50 Ml Syringe IV 20 ml Q30MIN PRN Administration Hypoglycemia Protocol Enoxaparin Sodium 100 mg 08/11/21 10:00 08/16/21 21:00 Enoxaparin 100 Mg/1 Ml Inj SUB-Q 100 mg Q12HR DEMIAN Administration Protocol Famotidine 20 mg 08/15/21 10:00 08/16/21 21:01 Famotidine 20 Mg Tab FEEDTUBE 20 mg BID DEMIAN Administration Fentanyl 50 mcg 07/29/21 10:42 08/04/21 09:05 Fentanyl 100 Mcg/2 Ml Inj IV 50 mcg Q10MIN PRN Administration ANALGESIA Hydralazine HCl 10 mg 07/30/21 14:52 08/03/21 17:31 Hydralazine 20 Mg/1 Ml Inj IV 10 mg Q6H PRN Administration SBP > 165 Hydrophilic Ointment 1 applic 07/29/21 10:42 Lip Therapy Vaseline TP Q2HR PRN Dry Lips Fentanyl Citrate 2,000 mcg in 100 mls @ 5.35 mls/hr 07/29/21 11:00 08/16/21 22:36 Fentanyl Drip Premix IV 2 mcg/kg/hr TITR DEMIAN 10.7 mls/hr Administration Protocol 1 MCG/KG/HR Midazolam HCl 100 mg/ Sodium 100 mls @ 2 mls/hr 07/29/21 11:00 08/16/21 18:30 Chloride IV 3 mg/hr TITR DEMIAN 3 mls/hr Titration Protocol 2 MG/HR Norepinephrine 4 mg in 250 mls @ 7.5 mls/hr 07/29/21 21:00 Levophed Drip 4 Mg/Ns 250 Ml IV TITR DEMIAN Protocol 2 MCG/MIN Insulin Human Lispro 0 unit 07/29/21 12:00 08/17/21 06:33 Insulin Lispro 100 Unit/Ml SUB-Q Not Given Q6HR [facility] Protocol Magnesium Hydroxide 30 ml 07/28/21 02:11 Magnesium Hydroxide (Mom) Oral Liqd Udc PO Q4H PRN Constipation Midazolam HCl 2 mg 07/29/21 10:42 08/10/21 20:58 Midazolam 2 Mg/2 Ml Inj IV 2 mg Q10MIN PRN Administration Sedation Multi-Ingred Cream/Lotion/Oil/Oint 1 applic 07/29/21 10:42 Mineral Oil/Petrolatum, White Ophth Oint 3.5 Gm OU Q4HR PRN Dry Eye(s) Oxycodone HCl 15 mg 08/15/21 10:00 08/17/21 05:18 Oxycodone 5 Mg Tab PO Not Given Q6H [facility] Polyethylene Glycol 17 gm 08/11/21 16:00 08/16/21 10:32 Polyethylene Glycol 3350 17 Gm Powder PO 17 gm QDAY [facility] Administration Quetiapine Fumarate 100 mg 08/16/21 13:49 09/21/21 21:01 Quetiapine 100 Mg Tab PO 100 mg BID DEMIAN Administration Senna/Docusate Sodium 1 tab 08/11/21 13:00 08/16/21 20:57 Sennosides/Docusate Sodium 8.6/50 Mg Tab FEEDTUBE 1 tab Q8H DEMIAN Administration Simple Syrup 15 ml 07/29/21 13:01 Simple Syrup 15 Ml FEEDTUBE PRN PRN Hypoglycemia Simple Syrup 30 ml 07/29/21 13:01 Simple Syrup 15 Ml FEEDTUBE PRN PRN Hypoglycemia Sodium Bicarbonate 325 mg 07/29/21 13:01 Sodium Bicarbonate 325 Mg Tab FEEDTUBE PRN PRN For Clogged Feeding Tube Sodium Chloride 10 ml 07/28/21 10:00 08/16/21 21:00 Sodium Chloride 0.9% 10 Ml Flush Syringe IV 10 ml BID DEMIAN Administration Sodium Chloride 10 ml 07/28/21 02:05 Sodium Chloride 0.9% 10 Ml Flush Syringe IV PRN PRN LINE FLUSH Nutrition/Malnutrition Assess - Dietary Evaluation Nutrition/Malnutrition Findings: Nutrition Notes Start: 07/28/21 14:44 Freq: Status: Active Protocol: Document 08/16/21 15:09 [facility] (Rec: 08/16/21 15:16 [facility] [id number]) Nutrition Notes Initial or Follow up Reassessment Current Diagnosis Diabetes,Hypertension, Respiratory Failure, Hyperlipidemia Current Diet TF - Vital AF 1.2 at 50ml/hr Labs/Tests Na 144 Pertinent Medications Senna, Miralax, Dulcolax Height 5 ft Weight 107 kg [place] Body Weight (kg) 45.45 BMI 46.0 Weight Status Morbidly Obese Subjective/Other Information Spoke with RN via phone at 15: 08. Pt still has not had a BM . Medications given today. Pt tolerating TF at goal rate and remains on vent support. Percent of energy/protein needs met: 78% energy 79% pro Burn Absent Trauma Absent GI Symptoms Constipation #1 Nutrition Diagnosis Inadequate oral intake Diagnosis Progress(for reassessment Continues documentation) Is patient on ventilator? Yes Is Patient Ambulatory and/or Out of Bed No REE-([facility]-confined to bed) 1842.852 Kcal/Kg value to use for calculation 13 Approximate Energy Requirements Using 1391 kcal/Kg Calculation Used for Recommendations Kcal/kg Additional Notes Protein: (up to 2.5g/kg IBW) up to 114g Fluid: 1 ml/kcal or per MD Nutrition Intervention Nutrition Support: Continue Vital AF 1.2 at 50 ml /hr. Per RN, pt receiving 200ml water flush q4h. Kcal 1,440 Protein (gm) 90 Fluid (mL) 973 Goal #1 TF tolerance Goal #2 TF to meet at least 75% energy and pro needs Follow-Up By: 08/23/21 Additional Comments F/U: stable TF, BM, vent status
[2021-08-16] MEDS: QUEtiapine 100 MG TAB PO SCH (21:01)
[2021-08-17] MEDS: INSULIN LISPRO 100 UNIT/ML SUB-Q SCH ×4 (00:35→18:49)
[2021-08-17] MEDS: FREE WATER PO SCH ×6 (01:50→21:13)
[2021-08-17] MEDS: oxyCODONE 5 MG TAB PO SCH ×3 (05:18→16:42)
[2021-08-17 05:24] LABS: Hematocrit 22.2 % (30.3-42.9); Hemoglobin 7.5 gm/dl (10.1-14.3); Mean Corpuscular HGB Conc 34 % (30-34); Mean Corpuscular Volume 89 fl (79-97); Platelet Count 262 K/mm3 (140-440); Red Blood Count 2.49 M/mm3 (3.65-5.03); Red Cell Distribution Width 16.5 % (13.2-15.2)
[2021-08-17 05:56] LABS: BUN/Creatinine Ratio 46; Blood Urea Nitrogen 37 mg/dL (7-17); Calcium 8.9 mg/dL (8.4-10.2); Hemolysis Index 0
--- NOTE | 2021-08-17 06:35 | XRay Report ---
XR chest 1V ap INDICATION / CLINICAL INFORMATION: Right lung atelectasis. COMPARISON: 08/15/2021 FINDINGS: SUPPORT DEVICES: Tracheostomy device and left upper extremity PICC are unchanged. HEART /PULMONARY VASCULATURE: Unchanged. LUNGS / PLEURA: There are low lung volumes. Right upper lobe collapse is unchanged. Bibasilar airspac e opacities appear grossly stable, though evaluation is somewhat limited due to overlying soft tissue s. No pneumothorax. IMPRESSION: 1. No significant interval change. Signer Name: Cuba Lackey MD Signed: 08/17/2021 6:31 AM Workstation Name: [email or web address]
[2021-08-17] MEDS: BUDESONIDE 0.5 MG/2 ML NEBU IH SCH ×2 (09:41→21:20)
[2021-08-17] MEDS: IPRATROPIUM/ALBUTEROL SULFATE 3 ML AMPUL.NEB IH SCH ×3 (09:41→21:20)
[2021-08-17] MEDS: ARFORMOTEROL 15 MCG/2 ML NEBU IH SCH ×2 (09:44→21:20)
[2021-08-17] MEDS: POLYETHYLENE GLYCOL 3350 17 GM POWDER PO SCH (09:49)
[2021-08-17] MEDS: ENOXAPARIN 100 MG/1 ML INJ SUB-Q SCH ×2 (09:49→21:10)
[2021-08-17] MEDS: FAMOTIDINE 20 MG TAB FEEDTUBE SCH ×2 (09:49→21:10)
[2021-08-17] MEDS: QUEtiapine 100 MG TAB PO SCH ×2 (09:49→21:11)
--- NOTE | 2021-08-17 10:08 | Electrocardiograph Report ---
[facility] Test Date: 2021-08-17 Test Time: 06:48:06 Pat Name: JAXON MARTI Department: Room: A261 1 Gender: F Visitor Services Specialist: GUILLERMO : 1955 Requested By: SHYLA MARKS Order Number: [id number] Reading MD: Michael Ovalle Measurements Intervals [place] Rate: 105 P: 74 SD: 154 QRS: 43 QRSD: 93 T: 179 QT: 325 QTc: 430 Interpretive Statements Sinus tachycardia baseline artifact Abnormal T, consider ischemia, lateral leads Compared to ECG 08/08/2021 08:46:53 Ventricular tachycardia now present T-wave abnormality now present Sinus rhythm no longer present Possible ischemia still present Electronically Signed On 08-17-2021 10:08:41 EDT by Michael Ovalle
[2021-08-17] MEDS: SENNOSIDES/DOCUSATE SODIUM 8.6/50 MG TAB FEEDTUBE SCH ×2 (13:42→21:12)
[2021-08-17] MEDS: fentaNYL DRIP Premix 2,000 MCG/100 ML BAG IV SCH ×2 (15:10→21:09)
--- NOTE | 2021-08-17 15:11 | XRay Report ---
ABDOMEN 1 VIEW 08/17/2021 2:04 PM INDICATION / CLINICAL INFORMATION: constipation. COMPARISON: None available. FINDINGS: TUBES / LINES: Gastrostomy tube balloon projects over the expected location of the stomach. BOWEL GAS PATTERN: No dilated large or small bowel. Moderate amount of fecal material throughout the colon. FREE AIR / EXTRALUMINAL GAS: None. ADDITIONAL FINDINGS: No significant additional findings. IMPRESSION: 1. Moderate amount of fecal material throughout the colon. Signer Name: Charles Edgar MD Signed: 08/17/2021 3:06 PM Workstation Name: [email or web address]
--- NOTE | 2021-08-17 19:07 | Progress Note ---
Assessment and Plan Assessment and plan: This is a 66-year-old female with HTN, DM, HLD and COPD admitted for acute hypoxic respiratory failure, COPD exacerbation, pneumonia and left lower leg DVT Neuro: Acute metabolic encephalopathy; agitation -Sedated with Versed and fentanyl, Seroquel -RASS goal -2 to -3 -Avoid delirium -Reorientation as needed -Bilateral restraints for safety -Daily SAT limited by agitation hypoxia Cardio: ST, h/o HTN, s/p cardiac arrest, h/o HLD -Echocardiogram completed-> EF 50 to 55% with mild diastolic dysfunction -Blood pressure monitor per protocol -MAP goal > 65 -Patient had cardiac arrest on 07/29 and was intubated -Antihypertensives prn Respiratory: Acute hypoxic respiratory failure, COPD exacerbation; lung ca with mediastinal mass -CCM consulted, appreciate recommendations - S/P trach and PEG 08/10 -S/p emergent surgery for control of hemorrhage from tracheostomy site on 08/12/2021 -VAP bundle -Daily SBT and SAT trials as tolerated -intubated with 7.50 ETT at 22 at the lips on 07/29 see RT flow sheet for vent settings Started on a CPAP trial this morning however she failed due to tachycardia and tachypnea -Daily ABG and CXR -Continue SPO2 monitoring -A.m. vent settings: Assist-control rate 16, tidal volume 450, PEEP 8, 30% FiO2 GI: MO -NTR consult for tube feeding -BR: MiraLAX, Senokot, PRN ducolax -24-hour +350 -PPI -08/17 KUB shows good amount of fecal material throughout the colon : Acute kidney injury likely 2/2 vasomotor nephropathy/pre-renal; hyperchloremia -Nephrology consulted, appreciate recommendations -08/01 FeNA calculated at 0.13-> indicating prerenal -trend Cr -Strict intake and output -Avoid nephrotoxic medications -Renally dose medications -Elizabeth in place; Elizabeth changed on 08/05 -follow and replace electrolytes as needed -Free water flush 200 every 4 ID: Acute sepsis, pneumonia; febrile -ABX therapy: Cefepime -07/27 BC x2 with no growth after 4 days -07/29 tracheal aspirate with no growth -follow culture data -Monitor CBC and fever curve -ID following Heme: Left lower leg DVT, lung mass likely breast carcinoma with metastasis -cont Lovenox- HOLD AT [place] -SCDs to bilateral lower extremities while in bed -Trend CBC -evidenced on BLE US -heme onc following Oncology: h/o breast cancer, Lung mass, breast carcinoma with metastasis -CXR shows suspicious nodular density at the left base -08/02 bronchoscopy -Heme/oncology consulted, appreciate recommendations -08/02 bronchoscopy completed; washings and brush sent for cytology, cell count and AFB-> preliminary results obtained, see report -08/02: AFB from bron negative -08/02 PTH surgical report: Biomarker [place], [place], HER-2 negative, TTF1 and HMB 4 5 are not expressed -CEA low -Heme onc following ? transfer to higher level of care oncologist Dr. Wade at [place] at [phone] Endo: h/o DM; stress hyperglycemia -SSI -Avoid hypoglycemia -Lantus, titrate as needed The high probability of a clinically significant, sudden or life threatening deterioration of the [multi] system(s) required my full and direct attention, intervention and personal management. The aggregate critical care time was [60] minutes. This time is in addition to time spent performing reported procedures b ut includes the following: [x] Data Review and interpretation [x] Patient assessment and monitoring of vital signs [x] Documentation [x] Medication orders and management Disposition Plan: icu Total Time Spent with Patient (Minutes): 60 History Interval history: This is a 66-year-old female with HTN, DM, HLD and COPD who presented to emergency department on 07/28 with complaints of difficulty in breathing ongoing for the past few days via EMS. En route she was given Solu-Medrol IV magnesium and albuterol nebulizing treatment. Upon arrival to emergency department patient had multiple rounds of embolizing treatments and was subsequently placed on BiPAP with some improvement. Patient has been fully vaccinated. Work-up in the emergency department revealed CXR suspicious for right-sided pneumonia, nodular density in the left base and increased interstitial markings which may be chronic. Patient was admitted to the hospitalist service with electrolyte imbalances, leukocytosis, COPD exacerbation, hypoxia and possible pneumonia. 07/29/2021. Patient seen this morning with Shabbir-Chavira respiration/agonal breathing. RENEE ABREU was called and patient was intubated and placed on mechanical ventilation. Patient transferred to ICU. Critical care/pulmonary consulted. Patient currently with AC mode rate of 30, FiO2 100%, PEEP of 12. Continue IV antibiotics. Consult ID and oncology for further evaluation. Patient will likely need bronchoscopy for further evaluation of the lung mass. Doppler ultrasound revealedLLE DVT. Start anticoagulation. 07/30/2021. Patient appears much improved and more responsive this morning. Patient currently with AC mode ventilation rate of 24, tidal volume 450, PEEP of 8 and FiO2 35%. Spontaneous breathing trials with possible extubation today per pulmonary. Bronchoscopy per pulmonary. Continue Lovenox twice daily for DVT. Continue IV antibiotics for sepsis/pneumonia. ID consultation pending. Follow-up [facility], [place] 15-3, [place] 2729. 07/31/2021. Echocardiogram reveals left ventricular size and function are normal. EF 50 to 55% with mild diastolic dysfunction. Patient currently with CPAP/PSV trial 11/02. Anticipate extubation today per pulmonary. Bronchoscopy per pulmonary. Continue Lovenox twice daily for DVT. Continue IV antibiotics for sepsis/pneumonia. ID consultation pending. Follow-up CEA, CA 15-3, [place] 2729. 08/01: ALIYAH 08/02: Patient had a bronchoscopy today. Cell count, cytology and AFB sent from samples. Patient remains sedated on fentanyl and Versed. Patient and daughter Rosana were updated. 08/03: [facility] follow-up on [facility] specimens and was informed patient specimens indicate cancer. Communicated to Dr. Abbott and he stated he will update family. 08/04: Patient remains sedated on fentanyl and Versed, patient has moments of agitation with any stimulation. CPAP trial unable to be completed today due to agitation. 08/05: Patient had low urine output overnight and Elizabeth catheter was changed this a.m. with 2 L of urine output received. Patient did have a increase in creatinine however this may have been obstructive process and nephrology is aware. Hematology/oncology spoke to family who wishes for everything to be done despite bronchial washings with cancer cells. [facility] contacted patient's oncologist to help facilitate transfer. We attempted to hold sedation for CPAP trial however patient became extremely agitated and sedation was restarted. 08/06: Surgery consulted for possible trach. Leukocytosis and renal function slowly improving. No acute events reported overnight. 08/07: Creatinine continues to decrease, patient has slight hyper natremia and hyperchloremia. Patient remains on fentanyl and Versed with periods of agitation. Increasing free water flushes. 08-08 improving cr; febrile; family wants full care/full code- heme onc following 08-09 LOW GRADE FEVERS; FOR TRACH/PEG WED AM 08/10: Patient seen and examined, had Bronchoscopy and Trach and PEG today, follow report. Continue supportive care. 08/11: Patient remains on full vent support. Continue supportive care. 08/12: This morning patient noted with bleeding around trach surgery consulted going for emergent surgery. Labs ordered 08/13: Patient seen and examined, no further bleeding, had surgical intervention yesterday for trach site bleeding. No further bleeding this am. Patient otherwise remains on mechanical ventilation. Leukocytosis mildly worsened today this could be reactive has no fever will monitor mental status is still severely encephalopathic. 08/14/21 patient seen and examined. Lab and medication reviewed. No further bleeding from track site. Hemoglobin is 8.1. Hematocrit 24.2 and WBC 9.7. Continue current management and supportive care. Recheck CBC CMP in the morning 08/15: Overnight patient experienced sinus pericardia with return, will receive MiraLAX and CPAP trial today. 08/16: CPAP trial failed today. 08/17: given ducloax suppository today Hospitalist Physical - Constitutional Vitals: Temp Pulse Resp BP Pulse Ox 98.2 F 84 11 L 109/68 100 08/17/21 16:00 08/17/21 18:31 08/17/21 18:31 08/17/21 18:31 08/17/21 18:31 General appearance: Present: no acute distress, well-nourished, other - EENT Eyes: Present: PERRL, EOM intact ENT: clear oral mucosa - Neck Neck: Present: normal ROM - Respiratory Respiratory effort: normal Respiratory: bilateral: diminished - Cardiovascular Rhythm: regular Heart Sounds: Present: S1 & S2. Absent: systolic murmur, diastolic murmur - Extremities Extremities: no ischemia, pulses intact, pulses symmetrical, No edema, normal temperature, normal color Peripheral Pulses: within normal limits - Abdominal General gastrointestinal: soft, non-tender, non-distended, normal bowel sounds - Integumentary Integumentary: Present: warm, dry - Psychiatric Psychiatric: other (sedated) - Neurologic Neurologic: other (sedated) - Allied Health Allied health notes reviewed: nursing, RT, social work Results - Labs CBC & Chem 7: 08/17/21 Unknown 08/17/21 Unknown Labs: Laboratory Last Values WBC 6.7 K/mm3 (4.5-11.0) 08/17/21 Unknown RBC 2.49 M/mm3 (3.65-5.03) L 08/17/21 Unknown Hgb 7.5 gm/dl (10.1-14.3) L 08/17/21 Unknown Hct 22.2 % (30.3-42.9) L 08/17/21 Unknown MCV 89 fl (79-97) 08/17/21 Unknown MCH 30 pg (28-32) 08/17/21 Unknown MCHC 34 % (30-34) 08/17/21 Unknown RDW 16.5 % (13.2-15.2) H 08/17/21 Unknown Plt Count 262 K/mm3 (140-440) 08/17/21 Unknown Lymph % (Auto) 12.5 % (13.4-35.0) L 08/15/21 Unknown [place] % (Auto) 5.9 % (0.0-7.3) 08/15/21 Unknown Eos % (Auto) 0.9 % (0.0-4.3) 08/15/21 Unknown Baso % (Auto) 0.3 % (0.0-1.8) 08/15/21 Unknown Lymph # (Auto) 1.0 K/mm3 (1.2-5.4) L 08/15/21 Unknown [place] # (Auto) 0.5 K/mm3 (0.0-0.8) 08/15/21 Unknown Eos # (Auto) 0.1 K/mm3 (0.0-0.4) 08/15/21 Unknown Baso # (Auto) 0.0 K/mm3 (0.0-0.1) 08/15/21 Unknown Add Manual Diff Complete 08/05/21 04:50 Total Counted 100 08/05/21 04:50 Seg Neutrophils % 80.4 % (40.0-70.0) H 08/15/21 Unknown Seg Neuts % (Manual) 75.0 % (40.0-70.0) H 08/05/21 04:50 Band Neutrophils % 8.0 % 08/05/21 04:50 Lymphocytes % (Manual) 2.0 % (13.4-35.0) L 08/05/21 04:50 Monocytes % (Manual) 5.0 % (0.0-7.3) 08/05/21 04:50 Eosinophils % (Manual) 1.0 % (0.0-4.3) 08/05/21 04:50 Metamyelocytes % 6.0 % 08/05/21 04:50 Myelocytes % 3.0 % 08/05/21 04:50 Nucleated RBC % Not Reportable 08/05/21 04:50 Seg Neutrophils # 6.4 K/mm3 (1.8-7.7) 08/15/21 Unknown Seg Neutrophils # Man 14.3 K/mm3 (1.8-7.7) H 08/05/21 04:50 Band Neutrophils # 1.5 K/mm3 08/05/21 04:50 Lymphocytes # (Manual) 0.4 K/mm3 (1.2-5.4) L 08/05/21 04:50 Abs React Lymphs (Man) 0.0 K/mm3 08/05/21 04:50 Monocytes # (Manual) 1.0 K/mm3 (0.0-0.8) H 08/05/21 04:50 Eosinophils # (Manual) 0.2 K/mm3 (0.0-0.4) 08/05/21 04:50 Basophils # (Manual) 0.0 K/mm3 (0.0-0.1) 08/05/21 04:50 Metamyelocytes # 1.1 K/mm3 08/05/21 04:50 Myelocytes # 0.6 K/mm3 08/05/21 04:50 Promyelocytes # 0.0 K/mm3 08/05/21 04:50 Blast Cells # 0.0 K/mm3 08/05/21 04:50 WBC Morphology Not Reportable 08/05/21 04:50 Hypersegmented Neuts Not Reportable 08/05/21 04:50 Hyposegmented Neuts Not Reportable 08/05/21 04:50 Hypogranular Neuts Not Reportable 08/05/21 04:50 Smudge Cells Not Reportable 08/05/21 04:50 Toxic Granulation Not Reportable 08/05/21 04:50 Toxic Vacuolation Not Reportable 08/05/21 04:50 Dohle Bodies Not Reportable 08/05/21 04:50 Pelger-Huet Anomaly Not Reportable 08/05/21 04:50 Beryl Rods Not Reportable 08/05/21 04:50 Platelet Estimate Consistent w auto 08/05/21 04:50 Clumped Platelets Not Reportable 08/05/21 04:50 Plt Clumps, EDTA Not Reportable 08/05/21 04:50 Large Platelets Not Reportable 08/05/21 04:50 Giant Platelets Not Reportable 08/05/21 04:50 Platelet Satelliting Not Reportable 08/05/21 04:50 Plt Morphology Comment Not Reportable 08/05/21 04:50 RBC Morphology Not Reportable 08/05/21 04:50 Dimorphic RBCs Not Reportable 08/05/21 04:50 Polychromasia Not Reportable 08/05/21 04:50 Hypochromasia Not Reportable 08/05/21 04:50 Poikilocytosis Not Reportable 08/05/21 04:50 Anisocytosis Not Reportable 08/05/21 04:50 Microcytosis Not Reportable 08/05/21 04:50 Macrocytosis Not Reportable 08/05/21 04:50 Spherocytes Not Reportable 08/05/21 04:50 Pappenheimer Bodies Not Reportable 08/05/21 04:50 Sickle Cells Not Reportable 08/05/21 04:50 Target Cells Not Reportable 08/05/21 04:50 Tear Drop Cells Not Reportable 08/05/21 04:50 Ovalocytes Few 08/05/21 04:50 Helmet Cells Not Reportable 08/05/21 04:50 [place] Bodies Not Reportable 08/05/21 04:50 [place] Rings Not Reportable 08/05/21 04:50 Estelita Cells Not Reportable 08/05/21 04:50 Bite Cells Not Reportable 08/05/21 04:50 Crenated Cell Not Reportable 08/05/21 04:50 Elliptocytes Not Reportable 08/05/21 04:50 Acanthocytes (Spur) Not Reportable 08/05/21 04:50 Rouleaux Not Reportable 08/05/21 04:50 Hemoglobin C Crystals Not Reportable 08/05/21 04:50 Schistocytes Not Reportable 08/05/21 04:50 Malaria parasites Not Reportable 08/05/21 04:50 Gurmeet Bodies Not Reportable 08/05/21 04:50 Hem Pathologist Commnt No 08/05/21 04:50 PT 14.5 Sec. (12.2-14.9) 08/12/21 21:41 INR 1.08 (0.87-1.13) 08/12/21 21:41 APTT 29.9 Sec. (24.2-36.6) 08/10/21 05:20 D-Dimer 852.47 ng/mlDDU (0-234) H 07/29/21 07:17 ABG pH 7.292 (7.320-7.450) L 08/17/21 07:27 POC ABG pCO2 52.2 mmHg (32.0-48.0) H 08/17/21 07:27 POC ABG pO2 80.8 mmHg (83-108) L 08/17/21 07:27 POC ABG HCO3 24.6 08/17/21 07:27 ABG O2 Saturation 94.3 (0-100) 08/17/21 07:27 POC ABG Base Excess -2.1 08/17/21 07:27 ABG Hemoglobin 9.2 (12.0-17.5) L 08/17/21 07:27 ABG Oxyhemoglobin 93.8 (94-98) L 08/17/21 07:27 ABG Methemoglobin 0.3 (0.0-1.5) 08/17/21 07:27 ABG Sodium 135.3 mmol/L (136.0-145.0) L 08/17/21 07:27 ABG Potassium 4.3 mmol/L (3.40-4.50) 08/17/21 07:27 ABG Chloride 103.0 mmol/L (98-107) 08/17/21 07:27 ABG Glucose 135 mg/dL (65-95) H 08/17/21 07:27 Carboxyhemoglobin 0.2 (0.5-1.5) L 08/17/21 07:27 FiO2 % 30.0 08/17/21 07:27 Sodium 139 mmol/L (137-145) 08/17/21 Unknown Potassium 4.1 mmol/L (3.6-5.0) 08/17/21 Unknown Chloride 102.6 mmol/L (98-107) 08/17/21 Unknown Carbon Dioxide 24 mmol/L (22-30) 08/17/21 Unknown Anion Gap 17 mmol/L 08/17/21 Unknown BUN 37 mg/dL (7-17) H 08/17/21 Unknown Creatinine 0.8 mg/dL (0.6-1.2) 08/17/21 Unknown Estimated GFR > 60 ml/min 08/17/21 Unknown BUN/Creatinine Ratio 46 % 08/17/21 Unknown Glucose 117 mg/dL (65-100) H 08/17/21 Unknown POC Glucose 106 mg/dL (70-105) H 08/17/21 17:20 Lactic Acid 2.10 mmol/L (0.7-2.0) H* 08/03/21 15:11 Calcium 8.9 mg/dL (8.4-10.2) 08/17/21 Unknown Phosphorus 4.10 mg/dL (2.5-4.5) 08/08/21 06:00 Magnesium 1.70 mg/dL (1.7-2.3) 08/12/21 21:41 Total Bilirubin 0.40 mg/dL (0.1-1.2) 08/15/21 Unknown AST 40 units/L (5-40) 08/15/21 Unknown ALT 63 units/L (7-56) H 08/15/21 Unknown Alkaline Phosphatase 102 units/L (35-129) 08/15/21 Unknown Total Protein 5.5 g/dL (6.3-8.2) L 08/15/21 Unknown Albumin 2.4 g/dL (3.9-5) L 08/15/21 Unknown Albumin/Globulin Ratio 0.8 % 08/15/21 Unknown Carcinoembryonic Ag <0.5 ng/mL (0.0-2.4) 07/31/21 04:45 Arterial Blood Glucose 135 mg/dL (65-95) H 08/17/21 07:27 Arterial Blood Ionized Calcium 4.6 mg/dL (4.6-5.3) 08/17/21 07:27 Urine Color Yellow (Yellow) 08/08/21 20:27 Urine Turbidity Slightly-cloudy (Clear) 08/08/21 20:27 Urine pH 5.0 (5.0-7.0) 08/08/21 20:27 Ur Specific [place] 1.014 (1.003-1.030) 08/08/21 20:27 Urine Protein 30 mg/dl mg/dL (Negative) 08/08/21 20:27 Urine Glucose (UA) Neg mg/dL (Negative) 08/08/21 20: Urine Ketones Neg mg/dL (Negative) 08/08/21 20:27 Urine Blood Mod (Negative) 08/08/21 20:27 Urine Nitrite Neg (Negative) 08/08/21 20: Urine Bilirubin Neg (Negative) 08/08/21 20: Urine Urobilinogen < 2.0 mg/dL (<2.0) 08/08/21 20:27 Ur Leukocyte Esterase Neg (Negative) 08/08/21 20: Urine WBC (Auto) 6.0 /HPF (0.0-6.0) 08/08/21 20: Urine RBC (Auto) 6.0 /HPF (0.0-6.0) 08/08/21 20: U Epithel Cells (Auto) < 1.0 /HPF (0-13.0) 08/08/21 20: Urine Bacteria (Auto) 1+ /HPF (Negative) 08/08/21 20: Urine Mucus Few /HPF 08/08/21 20: Urine Yeast (Budding) 1+ /HPF 08/08/21 20:27 Urine Creatinine 125.6 mg/dL (0.1-20.0) H 08/01/21 Unknown Urine Sodium 12 mmol/L 08/01/21 Unknown Double Strand DNA Ab 1 IU/mL (<=4) 08/02/21 15:40 Coronavirus (PCR) Negative (Negative) 07/29/21 07:58 Hepatitis A IgM Ab Non-reactive (NonReactive) 08/02/21 15:40 Hep Bs Antigen Nonreactive (Negative) 08/02/21 15:40 Hep B Core IgM Ab Non-reactive (NonReactive) 08/02/21 15:40 Hepatitis C Antibody Non-reactive (NonReactive) 08/02/21 15:40 AFB Identification Negative 08/02/21 14:30 Elizabeth/IV: Voiding Method Indwelling Catheter Active Medications - Current Medications Current Medications: Generic Name Dose Route Start Last Admin Trade Name Freq PRN Reason Stop Dose Admin Acetaminophen 650 mg 07/28/21 02:11 Acetaminophen 325 Mg Tab PO Q6H PRN Pain MILD(1-3)/Fever >100.5/GARCIA Albuterol/Ipratropium 1 ampul 07/28/21 14:00 08/17/21 15:13 Ipratropium/Albuterol Sulfate 3 Ml Ampul.Neb IH 1 ampul TID DEMIAN Administration Lipase/Protease/Amylase 1 each 07/29/21 13:01 Lipase 10,500/Protease 25,000/Amylase 43,750 (Units) Dr Campoverde FEEDTUBE PRN PRN For Clogged Feeding Tube Arformoterol Tartrate 15 mcg 07/28/21 20:00 08/17/21 09:44 Arformoterol 15 Mcg/2 Ml Nebu IH 15 mcg Q12HRT DEMIAN Administration Bisacodyl 10 mg 08/07/21 09:50 08/16/21 18:32 Bisacodyl 10 Mg Rect Supp [place] 10 mg QDAY PRN Administration Constip unreliev by MOM/or NPO Budesonide 0.5 mg 07/28/21 20:00 08/17/21 09:41 Budesonide 0.5 Mg/2 Ml Nebu IH 0.5 mg Q12HRT DEMIAN Administration Dextrose 50 ml 07/28/21 02:11 08/10/21 18:05 Dextrose 50% In Water (25gm) 50 Ml Syringe IV 20 ml Q30MIN PRN Administration Hypoglycemia Protocol Enoxaparin Sodium 100 mg 08/11/21 10:00 08/17/21 09:49 Enoxaparin 100 Mg/1 Ml Inj SUB-Q 100 mg Q12HR DEMIAN Administration Protocol Famotidine 20 mg 08/15/21 10:00 08/17/21 09:49 Famotidine 20 Mg Tab FEEDTUBE 20 mg BID DEMIAN Administration Fentanyl 50 mcg 07/29/21 10:42 08/04/21 09:05 Fentanyl 100 Mcg/2 Ml Inj IV 50 mcg Q10MIN PRN Administration ANALGESIA Hydralazine HCl 10 mg 07/30/21 14:52 08/03/21 17:31 Hydralazine 20 Mg/1 Ml Inj IV 10 mg Q6H PRN Administration SBP > 165 Hydrophilic Ointment 1 applic 07/29/21 10:42 Lip Therapy Vaseline TP Q2HR PRN Dry Lips Fentanyl Citrate 2,000 mcg in 100 mls @ 5.35 mls/hr 07/29/21 11:00 08/17/21 15:45 Fentanyl Drip Premix IV 4 mcg/kg/hr TITR DEMIAN 21.4 mls/hr Titration Protocol 1 MCG/KG/HR Midazolam HCl 100 mg/ Sodium 100 mls @ 2 mls/hr 07/29/21 11:00 08/16/21 18:30 Chloride IV 3 mg/hr TITR DEMIAN 3 mls/hr Titration Protocol 2 MG/HR Norepinephrine 4 mg in 250 mls @ 7.5 mls/hr 07/29/21 21:00 Levophed Drip 4 Mg/Ns 250 Ml IV TITR DEMIAN Protocol 2 MCG/MIN Propofol 1,000 mg in 100 mls @ 3.21 mls/hr 08/17/21 16:00 08/17/21 15:45 Diprivan 10 Mg/Ml IV 5 mcg/kg/min TITR DEMIAN 3.21 mls/hr Administration Protocol 5 MCG/KG/MIN Insulin Human Lispro 0 unit 07/29/21 12:00 08/17/21 18:49 Insulin Lispro 100 Unit/Ml SUB-Q Not Given Q6HR [facility] Protocol Magnesium Hydroxide 30 ml 07/28/21 02:11 Magnesium Hydroxide (Mom) Oral Liqd Udc PO Q4H PRN Constipation Midazolam HCl 2 mg 07/29/21 10:42 08/10/21 20:58 Midazolam 2 Mg/2 Ml Inj IV 2 mg Q10MIN PRN Administration Sedation Multi-Ingred Cream/Lotion/Oil/Oint 1 applic 07/29/21 10:42 Mineral Oil/Petrolatum, White Ophth Oint 3.5 Gm OU Q4HR PRN Dry Eye(s) Oxycodone HCl 15 mg 08/15/21 10:00 08/17/21 16:42 Oxycodone 5 Mg Tab PO 15 mg Q6H DEMIAN Administration Polyethylene Glycol 17 gm 08/11/21 16:00 08/17/21 09:49 Polyethylene Glycol 3350 17 Gm Powder PO 17 gm QDAY DEMIAN Administration Quetiapine Fumarate 100 mg 08/16/21 13:49 08/17/21 09:49 Quetiapine 100 Mg Tab PO 100 mg BID DEMIAN Administration Senna/Docusate Sodium 1 tab 08/11/21 13:00 08/17/21 13:42 Sennosides/Docusate Sodium 8.6/50 Mg Tab FEEDTUBE 1 tab Q8H DEMIAN Administration Simple Syrup 15 ml 07/29/21 13:01 Simple Syrup 15 Ml FEEDTUBE PRN PRN Hypoglycemia Simple Syrup 30 ml 07/29/21 13:01 Simple Syrup 15 Ml FEEDTUBE PRN PRN Hypoglycemia Sodium Bicarbonate 325 mg 07/29/21 13:01 Sodium Bicarbonate 325 Mg Tab FEEDTUBE PRN PRN For Clogged Feeding Tube Sodium Chloride 10 ml 07/28/21 10:00 08/17/21 09:49 Sodium Chloride 0.9% 10 Ml Flush Syringe IV 10 ml BID DEMIAN Administration Sodium Chloride 10 ml 07/28/21 02:05 Sodium Chloride 0.9% 10 Ml Flush Syringe IV PRN PRN LINE FLUSH Nutrition/Malnutrition Assess - Dietary Evaluation Nutrition/Malnutrition Findings: Nutrition Notes Start: 07/28/21 14:44 Freq: Status: Active Protocol: Document 08/16/21 15:09 [facility] (Rec: 08/16/21 15:16 [facility] [id number]) Nutrition Notes Initial or Follow up Reassessment Current Diagnosis Diabetes,Hypertension, Respiratory Failure, Hyperlipidemia Current Diet TF - Vital AF 1.2 at 50ml/hr Labs/Tests Na 144 Pertinent Medications Senna, Miralax, Dulcolax Height 5 ft Weight 107 kg [place] Body Weight (kg) 45.45 BMI 46.0 Weight Status Morbidly Obese Subjective/Other Information Spoke with RN via phone at 15: 08. Pt still has not had a BM . Medications given today. Pt tolerating TF at goal rate and remains on vent support. Percent of energy/protein needs met: 78% energy 79% pro Burn Absent Trauma Absent GI Symptoms Constipation #1 Nutrition Diagnosis Inadequate oral intake Diagnosis Progress(for reassessment Continues documentation) Is patient on ventilator? Yes Is Patient Ambulatory and/or Out of Bed No REE-([facility]-confined to bed) 1842.852 Kcal/Kg value to use for calculation 13 Approximate Energy Requirements Using 1391 kcal/Kg Calculation Used for Recommendations Kcal/kg Additional Notes Protein: (up to 2.5g/kg IBW) up to 114g Fluid: 1 ml/kcal or per MD Nutrition Intervention Nutrition Support: Continue Vital AF 1.2 at 50 ml /hr. Per RN, pt receiving 200ml water flush q4h. Kcal 1,440 Protein (gm) 90 Fluid (mL) 973 Goal #1 TF tolerance Goal #2 TF to meet at least 75% energy and pro needs Follow-Up By: 08/23/21 Additional Comments F/U: stable TF, BM, vent status
--- NOTE | 2021-08-17 21:13 | Progress Note ---
Assessment and Plan Acute hypoxemic respiratory failure secondary Lung Mass (? Lung vs Breast CA) Acute COPD exacerbation Possible hypercapnia History of right breast cancer Leukocytosis DM II Hypertension Hyperlipidemia Tobacco use disorder - Stopped Versed re: delirium issues - will use Propofol gtt - reduced set rate to 12/min - repeat ABG at 9pm tonight - continue current reduced Seroquel dose - awaiting LTAC transfer - continue daily SAT and SBT assessment as tolerated - continue care as below otherwise; - malignancy per oncology team - continue full anticoagulation for VTE - continue Seroquel to spare IV sedatives - azotemia per nephrology - continue to wean supplemental oxygen for target O2 sat's > 90% acutely - VAP bundle addressed - continue lung protective strategies - continue bronchodilators (GLADIS & LABA) with pulmonary hygiene per RT - wean per pulmonary driven protocols otherwise - continue accuchecks with glycemic control per SSI (While critically ill target blood glucose of 140-180 mg/dL; avoid hypoglycemia) - sedation prn for target RASS 0 to -1 - avoid nephrotoxins, renally dose all medications - continue to avoid benzodiazepine's, reduce the possibility of delirium - complete AB's per ID rec's - prn analgesia per CPOT score - Maintenance of sleep-wake cycle, avoid delirium - enteral nutritional support at goal rate as tolerated - G.I. & VTE prophylaxis - PT/OT/ROM exercises - continue mobility protocols for pressure ulcer prophylaxis - Monitor hemodynamics closely - continue other care per attending / other consultants - discharge planning ongoing concurrently COVID SPECIFIC INTERVENTIONS - test result pending .... Re-evaluate in am & prn CONDITION: CRITICAL PROGNOSIS: GUARDED CODE STATUS: FULL CODE The high probability of a clinically significant, sudden or life-threatening deterioration of the [respiratory, cardiovascular, oncological & neurologic] system(s) required my full and direct attention, intervention and personal management. The aggregate critical care time was [34] minutes without overlap. Time includes spent on; [x] Data Review and interpretation [x] Patient assessment and monitoring of vital signs [x] Documentation [x] Medication orders and management Subjective Date of service: 08/17/21 Principal diagnosis: Ac hypoxemic resp failure ; AE-COPD; H/O CA Breast; DM II; HTN Interval history: Patient is seen today for: Acute hypoxemic respiratory failure; AE-COPD; Possible hypercapnia; H/O CA Breast; DM II; HTN Seen and examined at bedside; 24hour events reviewed; nursing and respiratory care staff consulted; no adverse overnight events reported to me; resting in bed; remains on MVS; failed SBT quickly with bradycardia; no emesis or overt aspiration; sedated on Versed and Fentanyl Objective Vital Signs - 12hr 08/17/21 08/17/21 08/17/21 09:15 09:31 09:40 Temperature Pulse Rate 102 H 118 H Pulse Rate [ 104 H Anterior Bilateral] Pulse Rate [ From Monitor] Respiratory 13 15 Rate Respiratory 26 H Rate [Anterior Bilateral] Blood Pressure 118/77 118/77 O2 Sat by Pulse 99 98 Oximetry 08/17/21 08/17/21 08/17/21 09:45 10:01 10:15 Temperature Pulse Rate 112 H 104 H 103 H Pulse Rate [ Anterior Bilateral] Pulse Rate [ From Monitor] Respiratory 16 16 17 Rate Respiratory Rate [Anterior Bilateral] Blood Pressure 118/77 119/79 119/79 O2 Sat by Pulse 100 97 98 Oximetry 08/17/21 08/17/21 08/17/21 10:31 10:45 11:00 Temperature Pulse Rate 102 H 100 H 99 H Pulse Rate [ Anterior Bilateral] Pulse Rate [ From Monitor] Respiratory 16 16 16 Rate Respiratory Rate [Anterior Bilateral] Blood Pressure 119/79 119/79 116/76 O2 Sat by Pulse 98 98 92 Oximetry 08/17/21 08/17/21 08/17/21 11:15 11:31 11:45 Temperature Pulse Rate 97 H 95 H 93 H Pulse Rate [ Anterior Bilateral] Pulse Rate [ From Monitor] Respiratory 16 16 16 Rate Respiratory Rate [Anterior Bilateral] Blood Pressure 116/76 116/76 116/76 O2 Sat by Pulse 99 98 98 Oximetry 08/17/21 08/17/21 08/17/21 12:00 12:15 12:31 Temperature 99.2 F Pulse Rate 92 H 91 H 89 Pulse Rate [ Anterior Bilateral] Pulse Rate [ 92 H From Monitor] Respiratory 16 16 16 Rate Respiratory Rate [Anterior Bilateral] Blood Pressure 108/73 108/73 108/73 O2 Sat by Pulse 93 98 98 Oximetry 08/17/21 08/17/21 08/17/21 12:45 13:00 13:15 Temperature Pulse Rate 89 88 87 Pulse Rate [ Anterior Bilateral] Pulse Rate [ From Monitor] Respiratory 16 16 15 Rate Respiratory Rate [Anterior Bilateral] Blood Pressure 108/73 112/71 112/71 O2 Sat by Pulse 99 94 99 Oximetry 08/17/21 08/17/21 08/17/21 13:31 13:45 14:00 Temperature Pulse Rate 87 87 88 Pulse Rate [ Anterior Bilateral] Pulse Rate [ From Monitor] Respiratory 17 15 24 Rate Respiratory Rate [Anterior Bilateral] Blood Pressure 112/71 112/71 130/78 O2 Sat by Pulse 99 99 94 Oximetry 08/17/21 08/17/21 08/17/21 14:15 14:31 14:35 Temperature Pulse Rate 89 88 99 H Pulse Rate [ Anterior Bilateral] Pulse Rate [ From Monitor] Respiratory 17 17 Rate Respiratory Rate [Anterior Bilateral] Blood Pressure 112/71 112/71 130/78 O2 Sat by Pulse 99 99 99 Oximetry 08/17/21 08/17/21 08/17/21 14:45 15:01 15:10 Temperature Pulse Rate 90 101 H Pulse Rate [ 96 H Anterior Bilateral] Pulse Rate [ From Monitor] Respiratory 20 20 Rate Respiratory 22 Rate [Anterior Bilateral] Blood Pressure 130/78 130/78 O2 Sat by Pulse 99 98 Oximetry 08/17/21 08/17/21 08/17/21 15:15 15:31 15:45 Temperature Pulse Rate 103 H 107 H 106 H Pulse Rate [ Anterior Bilateral] Pulse Rate [ From Monitor] Respiratory 24 22 14 Rate Respiratory Rate [Anterior Bilateral] Blood Pressure 164/97 164/97 164/97 O2 Sat by Pulse 100 100 99 Oximetry 08/17/21 08/17/21 08/17/21 16:00 16:12 16:15 Temperature 98.2 F Pulse Rate 102 H 97 H 97 H Pulse Rate [ Anterior Bilateral] Pulse Rate [ 102 H From Monitor] Respiratory 12 11 L Rate Respiratory Rate [Anterior Bilateral] Blood Pressure 118/84 116/76 118/84 O2 Sat by Pulse 95 99 99 Oximetry 08/17/21 08/17/21 08/17/21 16:31 16:45 17:00 Temperature Pulse Rate 94 H 91 H 90 Pulse Rate [ Anterior Bilateral] Pulse Rate [ From Monitor] Respiratory 11 L 11 L 12 Rate Respiratory Rate [Anterior Bilateral] Blood Pressure 118/84 118/84 108/73 O2 Sat by Pulse 98 98 93 Oximetry 08/17/21 08/17/21 08/17/21 17:15 17:31 17:45 Temperature Pulse Rate 100 H 97 H 92 H Pulse Rate [ Anterior Bilateral] Pulse Rate [ From Monitor] Respiratory 18 11 L 11 L Rate Respiratory Rate [Anterior Bilateral] Blood Pressure 108/73 108/73 108/73 O2 Sat by Pulse 100 100 100 Oximetry 08/17/21 08/17/21 08/17/21 18:00 18:15 18:31 Temperature Pulse Rate 88 86 84 Pulse Rate [ Anterior Bilateral] Pulse Rate [ From Monitor] Respiratory 12 11 L 11 L Rate Respiratory Rate [Anterior Bilateral] Blood Pressure 109/68 109/68 109/68 O2 Sat by Pulse 95 100 100 Oximetry 08/17/21 08/17/21 08/17/21 18:45 19:00 19:15 Temperature Pulse Rate 82 80 80 Pulse Rate [ Anterior Bilateral] Pulse Rate [ From Monitor] Respiratory 11 L 12 11 L Rate Respiratory Rate [Anterior Bilateral] Blood Pressure 109/68 106/71 106/71 O2 Sat by Pulse 100 95 100 Oximetry 08/17/21 08/17/21 08/17/21 19:31 19:35 19:45 Temperature 97.9 F Pulse Rate 81 80 Pulse Rate [ Anterior Bilateral] Pulse Rate [ From Monitor] Respiratory 11 L 11 L Rate Respiratory Rate [Anterior Bilateral] Blood Pressure 106/71 106/71 O2 Sat by Pulse 100 99 Oximetry 08/17/21 08/17/21 08/17/21 20:00 20:15 20:31 Temperature Pulse Rate 80 81 81 Pulse Rate [ Anterior Bilateral] Pulse Rate [ 81 From Monitor] Respiratory 11 L 11 L 11 L Rate Respiratory Rate [Anterior Bilateral] Blood Pressure 103/64 103/64 103/64 O2 Sat by Pulse 93 100 100 Oximetry 08/17/21 08/17/21 20:45 21:00 Temperature Pulse Rate 81 81 Pulse Rate [ Anterior Bilateral] Pulse Rate [ From Monitor] Respiratory 11 L 11 L Rate Respiratory Rate [Anterior Bilateral] Blood Pressure 103/64 106/68 O2 Sat by Pulse 99 95 Oximetry Constitutional: appears uncomfortable, other (eldely obese female without increased respiratory effort at rest on MVS) Eyes: non-icteric ENT: oropharynx moist, other (trach [place] #[id number], cuffed; no bleeding) Neck: supple, no lymphadenopathy, no JVD Effort: mildly labored Ascultation: Bilateral: diminished breath sounds, wheezes (central), rales, rhonchi, other (prolonged expiratory phase) Percussion: Bilateral: not dull Cardiovascular: regular rate and rhythm, other (S1,S2) Gastrointestinal: normoactive bowel sounds, soft, non-tender, non-distended, other (PEG) Integumentary: normal Extremities: no cyanosis, no edema, pulses normal, no ischemia or petechiae Neurologic: non-focal exam (moves all extremities), pupils equal and round, CN II-XII normal Psychiatric: other (sedated) CBC and BMP: 08/17/21 Unknown 08/17/21 Unknown ABG, PT/INR, D-dimer: ABG ABG pH 7.292 (7.320-7.450) L 08/17/21 07:27 POC ABG pCO2 52.2 mmHg (32.0-48.0) H 08/17/21 07:27 POC ABG pO2 80.8 mmHg (83-108) L 08/17/21 07:27 POC ABG HCO3 24.6 08/17/21 07:27 ABG O2 Saturation 94.3 (0-100) 08/17/21 07:27 PT/INR, D-dimer PT 14.5 Sec. (12.2-14.9) 08/12/21 21:41 INR 1.08 (0.87-1.13) 08/12/21 21:41 D-Dimer 852.47 ng/mlDDU (0-234) H 07/29/21 07:17 Abnormal lab findings: Abnormal Labs 07/27/21 07/27/21 07/27/21 22:57 22:57 22:57 WBC 20.3 H RBC Hgb Hct RDW Lymph % (Auto) Lymph # (Auto) [place] # (Auto) Seg Neutrophils % Seg Neuts % (Manual) 89.0 H Lymphocytes % (Manual) 9.0 L Nucleated RBC % Seg Neutrophils # Seg Neutrophils # Man 18.1 H Lymphocytes # (Manual) Monocytes # (Manual) D-Dimer ABG pH POC ABG pCO2 POC ABG pO2 ABG Hemoglobin ABG Oxyhemoglobin ABG Sodium ABG Potassium ABG Chloride ABG Glucose Carboxyhemoglobin Sodium Potassium 3.5 L Chloride 96.9 L Carbon Dioxide 20 L BUN 19 H Creatinine Glucose 204 H POC Glucose Lactic Acid 7.20 H* Calcium Magnesium AST 98 H ALT 90 H Total Protein Albumin Arterial Blood Glucose Arterial Blood Ionized Calcium Urine WBC (Auto) Urine Creatinine 07/28/21 07/28/21 07/28/21 01:31 07:49 10:00 WBC RBC Hgb Hct RDW Lymph % (Auto) Lymph # (Auto) [place] # (Auto) Seg Neutrophils % Seg Neuts % (Manual) Lymphocytes % (Manual) Nucleated RBC % Seg Neutrophils # Seg Neutrophils # Man Lymphocytes # (Manual) Monocytes # (Manual) D-Dimer ABG pH POC ABG pCO2 POC ABG pO2 ABG Hemoglobin ABG Oxyhemoglobin ABG Sodium ABG Potassium ABG Chloride ABG Glucose Carboxyhemoglobin Sodium Potassium Chloride Carbon Dioxide BUN Creatinine Glucose POC Glucose 194 H Lactic Acid 6.90 H* 6.70 H* Calcium Magnesium AST ALT Total Protein Albumin Arterial Blood Glucose Arterial Blood Ionized Calcium Urine WBC (Auto) Urine Creatinine 07/28/21 07/28/21 07/28/21 12:41 13:21 16:21 WBC RBC Hgb Hct RDW Lymph % (Auto) Lymph # (Auto) [place] # (Auto) Seg Neutrophils % Seg Neuts % (Manual) Lymphocytes % (Manual) Nucleated RBC % Seg Neutrophils # Seg Neutrophils # Man Lymphocytes # (Manual) Monocytes # (Manual) D-Dimer ABG pH POC ABG pCO2 POC ABG pO2 ABG Hemoglobin ABG Oxyhemoglobin ABG Sodium ABG Potassium ABG Chloride ABG Glucose Carboxyhemoglobin Sodium Potassium Chloride Carbon Dioxide BUN Creatinine Glucose POC Glucose 159 H 155 H Lactic Acid 6.10 H* Calcium Magnesium AST ALT Total Protein Albumin Arterial Blood Glucose Arterial Blood Ionized Calcium Urine WBC (Auto) Urine Creatinine 07/28/21 07/29/21 07/29/21 22:03 04:44 04:44 WBC 17.0 H RBC Hgb Hct RDW Lymph % (Auto) Lymph # (Auto) [place] # (Auto) Seg Neutrophils % Seg Neuts % (Manual) 82.0 H Lymphocytes % (Manual) 11.0 L Nucleated RBC % Seg Neutrophils # Seg Neutrophils # Man 13.9 H Lymphocytes # (Manual) Monocytes # (Manual) 1.0 H D-Dimer ABG pH POC ABG pCO2 POC ABG pO2 ABG Hemoglobin ABG Oxyhemoglobin ABG Sodium ABG Potassium ABG Chloride ABG Glucose Carboxyhemoglobin Sodium Potassium Chloride Carbon Dioxide BUN 23 H Creatinine Glucose 196 H POC Glucose 187 H Lactic Acid Calcium Magnesium AST ALT Total Protein Albumin Arterial Blood Glucose Arterial Blood Ionized Calcium Urine WBC (Auto) Urine Creatinine 07/29/21 07/29/21 07/29/21 06:56 07:17 07:17 WBC 26.1 H RBC Hgb Hct 43.3 H RDW 16.0 H Lymph % (Auto) Lymph # (Auto) [place] # (Auto) Seg Neutrophils % Seg Neuts % (Manual) 80.0 H Lymphocytes % (Manual) Nucleated RBC % Seg Neutrophils # Seg Neutrophils # Man 20.9 H Lymphocytes # (Manual) Monocytes # (Manual) D-Dimer ABG pH POC ABG pCO2 POC ABG pO2 ABG Hemoglobin ABG Oxyhemoglobin ABG Sodium ABG Potassium ABG Chloride ABG Glucose Carboxyhemoglobin Sodium Potassium Chloride Carbon Dioxide 20 L D BUN 23 H Creatinine Glucose 308 H POC Glucose 165 H Lactic Acid Calcium Magnesium AST ALT Total Protein Albumin Arterial Blood Glucose Arterial Blood Ionized Calcium Urine WBC (Auto) Urine Creatinine 07/29/21 07/29/21 07/29/21 07:17 09:16 10:30 WBC RBC Hgb Hct RDW Lymph % (Auto) Lymph # (Auto) [place] # (Auto) Seg Neutrophils % Seg Neuts % (Manual) Lymphocytes % (Manual) Nucleated RBC % Seg Neutrophils # Seg Neutrophils # Man Lymphocytes # (Manual) Monocytes # (Manual) D-Dimer 852.47 H ABG pH 7.236 L POC ABG pCO2 56.0 H POC ABG pO2 266.4 H ABG Hemoglobin ABG Oxyhemoglobin 99.1 H ABG Sodium 132.3 L ABG Potassium 4.9 H ABG Chloride ABG Glucose 202 H Carboxyhemoglobin 0.2 L Sodium Potassium Chloride Carbon Dioxide BUN Creatinine Glucose POC Glucose 271 H Lactic Acid Calcium Magnesium AST ALT Total Protein Albumin Arterial Blood Glucose 202 H Arterial Blood Ionized Calcium Urine WBC (Auto) Urine Creatinine 07/29/21 07/29/21 07/30/21 17:54 23:32 05:08 WBC RBC Hgb Hct RDW Lymph % (Auto) Lymph # (Auto) [place] # (Auto) Seg Neutrophils % Seg Neuts % (Manual) Lymphocytes % (Manual) Nucleated RBC % Seg Neutrophils # Seg Neutrophils # Man Lymphocytes # (Manual) Monocytes # (Manual) D-Dimer ABG pH POC ABG pCO2 POC ABG pO2 ABG Hemoglobin ABG Oxyhemoglobin ABG Sodium ABG Potassium ABG Chloride ABG Glucose Carboxyhemoglobin Sodium Potassium Chloride Carbon Dioxide BUN Creatinine Glucose POC Glucose 168 H 205 H 214 H Lactic Acid Calcium Magnesium AST ALT Total Protein Albumin Arterial Blood Glucose Arterial Blood Ionized Calcium Urine WBC (Auto) Urine Creatinine 07/30/21 07/30/21 07/30/21 06:01 11:32 17:34 WBC RBC Hgb Hct RDW Lymph % (Auto) Lymph # (Auto) [place] # (Auto) Seg Neutrophils % Seg Neuts % (Manual) Lymphocytes % (Manual) Nucleated RBC % Seg Neutrophils # Seg Neutrophils # Man Lymphocytes # (Manual) Monocytes # (Manual) D-Dimer ABG pH 7.480 H POC ABG pCO2 23.6 L POC ABG pO2 280.0 H ABG Hemoglobin ABG Oxyhemoglobin 99.3 H ABG Sodium 133.7 L ABG Potassium ABG Chloride ABG Glucose 232 H Carboxyhemoglobin 0 L Sodium Potassium Chloride Carbon Dioxide BUN Creatinine Glucose POC Glucose 207 H 239 H Lactic Acid Calcium Magnesium AST ALT Total Protein Albumin Arterial Blood Glucose 232 H Arterial Blood Ionized Calcium 4.4 L Urine WBC (Auto) Urine Creatinine 07/30/21 07/31/21 07/31/21 23:39 03:34 04:45 WBC 15.0 H RBC Hgb Hct RDW 15.5 H Lymph % (Auto) Lymph # (Auto) [place] # (Auto) Seg Neutrophils % Seg Neuts % (Manual) 89.0 H Lymphocytes % (Manual) 7.0 L Nucleated RBC % Seg Neutrophils # Seg Neutrophils # Man 13.4 H Lymphocytes # (Manual) 1.1 L Monocytes # (Manual) D-Dimer ABG pH 7.481 H POC ABG pCO2 31.8 L POC ABG pO2 ABG Hemoglobin ABG Oxyhemoglobin ABG Sodium 135.2 L ABG Potassium 3.3 L ABG Chloride ABG Glucose 188 H Carboxyhemoglobin 0.1 L Sodium Potassium Chloride Carbon Dioxide BUN Creatinine Glucose POC Glucose 176 H Lactic Acid Calcium Magnesium AST ALT Total Protein Albumin Arterial Blood Glucose 188 H Arterial Blood Ionized Calcium 4.4 L Urine WBC (Auto) Urine Creatinine 07/31/21 07/31/21 07/31/21 04:45 04:45 11:28 WBC RBC Hgb Hct RDW Lymph % (Auto) Lymph # (Auto) [place] # (Auto) Seg Neutrophils % Seg Neuts % (Manual) Lymphocytes % (Manual) Nucleated RBC % Seg Neutrophils # Seg Neutrophils # Man Lymphocytes # (Manual) Monocytes # (Manual) D-Dimer ABG pH POC ABG pCO2 POC ABG pO2 ABG Hemoglobin ABG Oxyhemoglobin ABG Sodium ABG Potassium ABG Chloride ABG Glucose Carboxyhemoglobin Sodium Potassium 3.4 L Chloride Carbon Dioxide BUN 61 H Creatinine 2.6 H D Glucose 176 H POC Glucose 195 H 245 H Lactic Acid Calcium Magnesium AST ALT Total Protein Albumin Arterial Blood Glucose Arterial Blood Ionized Calcium Urine WBC (Auto) Urine Creatinine 07/31/21 07/31/21 08/01/21 17:32 23:58 01:00 WBC RBC Hgb Hct RDW Lymph % (Auto) Lymph # (Auto) [place] # (Auto) Seg Neutrophils % Seg Neuts % (Manual) Lymphocytes % (Manual) Nucleated RBC % Seg Neutrophils # Seg Neutrophils # Man Lymphocytes # (Manual) Monocytes # (Manual) D-Dimer ABG pH POC ABG pCO2 POC ABG pO2 ABG Hemoglobin ABG Oxyhemoglobin ABG Sodium ABG Potassium ABG Chloride ABG Glucose 284 H Carboxyhemoglobin 0.3 L Sodium Potassium Chloride Carbon Dioxide BUN Creatinine Glucose POC Glucose 251 H 294 H Lactic Acid Calcium Magnesium AST ALT Total Protein Albumin Arterial Blood Glucose 284 H Arterial Blood Ionized Calcium Urine WBC (Auto) Urine Creatinine 08/01/21 08/01/21 08/01/21 05:50 05:50 06:11 WBC 16.2 H RBC Hgb Hct RDW 15.5 H Lymph % (Auto) Lymph # (Auto) [place] # (Auto) Seg Neutrophils % Seg Neuts % (Manual) 93.0 H Lymphocytes % (Manual) 2.0 L Nucleated RBC % 3.0 H Seg Neutrophils # Seg Neutrophils # Man 15.1 H Lymphocytes # (Manual) 0.3 L Monocytes # (Manual) D-Dimer ABG pH POC ABG pCO2 POC ABG pO2 ABG Hemoglobin ABG Oxyhemoglobin ABG Sodium ABG Potassium ABG Chloride ABG Glucose Carboxyhemoglobin Sodium Potassium Chloride Carbon Dioxide BUN 64 H Creatinine 1.9 H Glucose 277 H POC Glucose 256 H Lactic Acid Calcium Magnesium AST ALT Total Protein Albumin Arterial Blood Glucose Arterial Blood Ionized Calcium Urine WBC (Auto) Urine Creatinine 08/01/21 08/01/21 08/01/21 11:39 17:25 23:53 WBC RBC Hgb Hct RDW Lymph % (Auto) Lymph # (Auto) [place] # (Auto) Seg Neutrophils % Seg Neuts % (Manual) Lymphocytes % (Manual) Nucleated RBC % Seg Neutrophils # Seg Neutrophils # Man Lymphocytes # (Manual) Monocytes # (Manual) D-Dimer ABG pH POC ABG pCO2 POC ABG pO2 ABG Hemoglobin ABG Oxyhemoglobin ABG Sodium ABG Potassium ABG Chloride ABG Glucose Carboxyhemoglobin Sodium Potassium Chloride Carbon Dioxide BUN Creatinine Glucose POC Glucose 289 H 275 H 327 H Lactic Acid Calcium Magnesium AST ALT Total Protein Albumin Arterial Blood Glucose Arterial Blood Ionized Calcium Urine WBC (Auto) Urine Creatinine 08/01/21 08/02/21 08/02/21 Unknown 04:00 12:03 WBC RBC Hgb Hct RDW Lymph % (Auto) Lymph # (Auto) [place] # (Auto) Seg Neutrophils % Seg Neuts % (Manual) Lymphocytes % (Manual) Nucleated RBC % Seg Neutrophils # Seg Neutrophils # Man Lymphocytes # (Manual) Monocytes # (Manual) D-Dimer ABG pH POC ABG pCO2 POC ABG pO2 ABG Hemoglobin ABG Oxyhemoglobin ABG Sodium ABG Potassium ABG Chloride ABG Glucose 325 H Carboxyhemoglobin 0.4 L Sodium Potassium Chloride Carbon Dioxide BUN Creatinine Glucose POC Glucose 209 H Lactic Acid Calcium Magnesium AST ALT Total Protein Albumin Arterial Blood Glucose 325 H Arterial Blood Ionized Calcium Urine WBC (Auto) Urine Creatinine 125.6 H 08/02/21 08/02/21 08/02/21 15:30 17:03 23:17 WBC RBC Hgb Hct RDW Lymph % (Auto) Lymph # (Auto) [place] # (Auto) Seg Neutrophils % Seg Neuts % (Manual) Lymphocytes % (Manual) Nucleated RBC % Seg Neutrophils # Seg Neutrophils # Man Lymphocytes # (Manual) Monocytes # (Manual) D-Dimer ABG pH POC ABG pCO2 POC ABG pO2 ABG Hemoglobin ABG Oxyhemoglobin ABG Sodium ABG Potassium ABG Chloride ABG Glucose Carboxyhemoglobin Sodium Potassium Chloride Carbon Dioxide BUN Creatinine Glucose POC Glucose 210 H 265 H Lactic Acid Calcium Magnesium AST ALT Total Protein Albumin Arterial Blood Glucose Arterial Blood Ionized Calcium Urine WBC (Auto) 47.0 H Urine Creatinine 08/02/21 08/02/21 08/03/21 Unknown Unknown 04:17 WBC 14.1 H RBC Hgb Hct RDW 16.3 H Lymph % (Auto) 5.1 L Lymph # (Auto) 0.7 L [place] # (Auto) 0.9 H Seg Neutrophils % 88.7 H Seg Neuts % (Manual) Lymphocytes % (Manual) Nucleated RBC % Seg Neutrophils # 12.5 H Seg Neutrophils # Man Lymphocytes # (Manual) Monocytes # (Manual) D-Dimer ABG pH POC ABG pCO2 POC ABG pO2 ABG Hemoglobin ABG Oxyhemoglobin ABG Sodium ABG Potassium ABG Chloride ABG Glucose Carboxyhemoglobin Sodium Potassium Chloride Carbon Dioxide BUN 72 H 72 H Creatinine 1.8 H 1.6 H Glucose 307 H 263 H POC Glucose Lactic Acid Calcium Magnesium AST ALT Total Protein Albumin Arterial Blood Glucose Arterial Blood Ionized Calcium Urine WBC (Auto) Urine Creatinine 08/03/21 08/03/21 08/03/21 04:17 05:30 08:30 WBC 13.9 H RBC Hgb Hct RDW 16.0 H Lymph % (Auto) Lymph # (Auto) [place] # (Auto) Seg Neutrophils % Seg Neuts % (Manual) Lymphocytes % (Manual) Nucleated RBC % Seg Neutrophils # Seg Neutrophils # Man Lymphocytes # (Manual) Monocytes # (Manual) D-Dimer ABG pH POC ABG pCO2 POC ABG pO2 ABG Hemoglobin ABG Oxyhemoglobin ABG Sodium ABG Potassium ABG Chloride ABG Glucose Carboxyhemoglobin Sodium Potassium Chloride Carbon Dioxide BUN Creatinine Glucose POC Glucose 280 H Lactic Acid Calcium Magnesium 3.00 H AST ALT Total Protein Albumin Arterial Blood Glucose Arterial Blood Ionized Calcium Urine WBC (Auto) Urine Creatinine 08/03/21 08/03/21 08/03/21 12:14 13:39 15:11 WBC RBC Hgb Hct RDW Lymph % (Auto) Lymph # (Auto) [place] # (Auto) Seg Neutrophils % Seg Neuts % (Manual) Lymphocytes % (Manual) Nucleated RBC % Seg Neutrophils # Seg Neutrophils # Man Lymphocytes # (Manual) Monocytes # (Manual) D-Dimer ABG pH POC ABG pCO2 POC ABG pO2 ABG Hemoglobin ABG Oxyhemoglobin ABG Sodium ABG Potassium ABG Chloride ABG Glucose 306 H Carboxyhemoglobin 0.3 L Sodium Potassium Chloride Carbon Dioxide BUN Creatinine Glucose POC Glucose 287 H Lactic Acid 2.10 H* Calcium Magnesium AST ALT Total Protein Albumin Arterial Blood Glucose 306 H Arterial Blood Ionized Calcium Urine WBC (Auto) Urine Creatinine 08/03/21 08/03/21 08/04/21 16:52 23:08 04:00 WBC RBC Hgb Hct RDW Lymph % (Auto) Lymph # (Auto) [place] # (Auto) Seg Neutrophils % Seg Neuts % (Manual) Lymphocytes % (Manual) Nucleated RBC % Seg Neutrophils # Seg Neutrophils # Man Lymphocytes # (Manual) Monocytes # (Manual) D-Dimer ABG pH POC ABG pCO2 54.3 H POC ABG pO2 82.2 L ABG Hemoglobin ABG Oxyhemoglobin ABG Sodium 145.1 H ABG Potassium 5.0 H ABG Chloride ABG Glucose 316 H Carboxyhemoglobin 0.3 L Sodium Potassium Chloride Carbon Dioxide BUN Creatinine Glucose POC Glucose 282 H 289 H Lactic Acid Calcium Magnesium AST ALT Total Protein Albumin Arterial Blood Glucose 316 H Arterial Blood Ionized Calcium Urine WBC (Auto) Urine Creatinine 08/04/21 08/04/21 08/04/21 04:38 04:38 05:19 WBC 17.7 H RBC Hgb Hct RDW 16.5 H Lymph % (Auto) Lymph # (Auto) [place] # (Auto) Seg Neutrophils % Seg Neuts % (Manual) Lymphocytes % (Manual) Nucleated RBC % Seg Neutrophils # Seg Neutrophils # Man Lymphocytes # (Manual) Monocytes # (Manual) D-Dimer ABG pH POC ABG pCO2 POC ABG pO2 ABG Hemoglobin ABG Oxyhemoglobin ABG Sodium ABG Potassium ABG Chloride ABG Glucose Carboxyhemoglobin Sodium Potassium Chloride 108.3 H Carbon Dioxide BUN 76 H Creatinine 1.4 H Glucose 310 H POC Glucose 268 H Lactic Acid Calcium Magnesium 2.70 H AST ALT Total Protein Albumin Arterial Blood Glucose Arterial Blood Ionized Calcium Urine WBC (Auto) Urine Creatinine 08/04/21 08/04/21 08/04/21 11:48 16:41 23:49 WBC RBC Hgb Hct RDW Lymph % (Auto) Lymph # (Auto) [place] # (Auto) Seg Neutrophils % Seg Neuts % (Manual) Lymphocytes % (Manual) Nucleated RBC % Seg Neutrophils # Seg Neutrophils # Man Lymphocytes # (Manual) Monocytes # (Manual) D-Dimer ABG pH POC ABG pCO2 POC ABG pO2 ABG Hemoglobin ABG Oxyhemoglobin ABG Sodium ABG Potassium ABG Chloride ABG Glucose Carboxyhemoglobin Sodium Potassium Chloride Carbon Dioxide BUN Creatinine Glucose POC Glucose 197 H 208 H 209 H Lactic Acid Calcium Magnesium AST ALT Total Protein Albumin Arterial Blood Glucose Arterial Blood Ionized Calcium Urine WBC (Auto) Urine Creatinine 08/05/21 08/05/21 08/05/21 04:00 04:50 04:50 WBC 19.0 H RBC Hgb Hct RDW 17.0 H Lymph % (Auto) Lymph # (Auto) [place] # (Auto) Seg Neutrophils % Seg Neuts % (Manual) 75.0 H Lymphocytes % (Manual) 2.0 L Nucleated RBC % Seg Neutrophils # Seg Neutrophils # Man 14.3 H Lymphocytes # (Manual) 0.4 L Monocytes # (Manual) 1.0 H D-Dimer ABG pH 7.314 L POC ABG pCO2 48.9 H POC ABG pO2 ABG Hemoglobin ABG Oxyhemoglobin ABG Sodium ABG Potassium 5.0 H ABG Chloride 109.0 H ABG Glucose 234 H Carboxyhemoglobin 0.4 L Sodium Potassium 5.2 H Chloride 110.0 H Carbon Dioxide BUN 90 H Creatinine 1.8 H Glucose 235 H POC Glucose Lactic Acid Calcium Magnesium 2.60 H AST ALT Total Protein Albumin Arterial Blood Glucose 234 H Arterial Blood Ionized Calcium Urine WBC (Auto) Urine Creatinine 08/05/21 08/05/21 08/05/21 06:05 12:02 17:08 WBC RBC Hgb Hct RDW Lymph % (Auto) Lymph # (Auto) [place] # (Auto) Seg Neutrophils % Seg Neuts % (Manual) Lymphocytes % (Manual) Nucleated RBC % Seg Neutrophils # Seg Neutrophils # Man Lymphocytes # (Manual) Monocytes # (Manual) D-Dimer ABG pH POC ABG pCO2 POC ABG pO2 ABG Hemoglobin ABG Oxyhemoglobin ABG Sodium ABG Potassium ABG Chloride ABG Glucose Carboxyhemoglobin Sodium Potassium Chloride Carbon Dioxide BUN Creatinine Glucose POC Glucose 225 H 193 H 263 H Lactic Acid Calcium Magnesium AST ALT Total Protein Albumin Arterial Blood Glucose Arterial Blood Ionized Calcium Urine WBC (Auto) Urine Creatinine 08/05/21 08/06/21 08/06/21 23:34 05:00 05:00 WBC 16.8 H RBC 3.64 L Hgb Hct RDW 16.6 H Lymph % (Auto) Lymph # (Auto) [place] # (Auto) Seg Neutrophils % Seg Neuts % (Manual) Lymphocytes % (Manual) Nucleated RBC % Seg Neutrophils # Seg Neutrophils # Man Lymphocytes # (Manual) Monocytes # (Manual) D-Dimer ABG pH POC ABG pCO2 POC ABG pO2 ABG Hemoglobin ABG Oxyhemoglobin ABG Sodium ABG Potassium ABG Chloride ABG Glucose Carboxyhemoglobin Sodium Potassium Chloride 109.3 H Carbon Dioxide BUN 89 H Creatinine 1.6 H Glucose 197 H POC Glucose 224 H Lactic Acid Calcium 8.2 L Magnesium AST ALT Total Protein Albumin Arterial Blood Glucose Arterial Blood Ionized Calcium Urine WBC (Auto) Urine Creatinine 08/06/21 08/06/21 08/06/21 05:26 11:38 16:30 WBC RBC Hgb Hct RDW Lymph % (Auto) Lymph # (Auto) [place] # (Auto) Seg Neutrophils % Seg Neuts % (Manual) Lymphocytes % (Manual) Nucleated RBC % Seg Neutrophils # Seg Neutrophils # Man Lymphocytes # (Manual) Monocytes # (Manual) D-Dimer ABG pH POC ABG pCO2 POC ABG pO2 ABG Hemoglobin ABG Oxyhemoglobin ABG Sodium ABG Potassium ABG Chloride ABG Glucose Carboxyhemoglobin Sodium Potassium Chloride Carbon Dioxide BUN Creatinine Glucose POC Glucose 168 H 160 H 135 H Lactic Acid Calcium Magnesium AST ALT Total Protein Albumin Arterial Blood Glucose Arterial Blood Ionized Calcium Urine WBC (Auto) Urine Creatinine 08/06/21 08/07/21 08/07/21 23:08 04:00 04:00 WBC 13.6 H RBC 3.30 L Hgb 9.5 L Hct 29.2 L RDW 16.7 H Lymph % (Auto) Lymph # (Auto) [place] # (Auto) Seg Neutrophils % Seg Neuts % (Manual) Lymphocytes % (Manual) Nucleated RBC % Seg Neutrophils # Seg Neutrophils # Man Lymphocytes # (Manual) Monocytes # (Manual) D-Dimer ABG pH POC ABG pCO2 POC ABG pO2 ABG Hemoglobin ABG Oxyhemoglobin ABG Sodium ABG Potassium ABG Chloride ABG Glucose Carboxyhemoglobin Sodium 146 H Potassium Chloride 111.4 H Carbon Dioxide BUN 78 H Creatinine 1.5 H Glucose 143 H POC Glucose 125 H Lactic Acid Calcium 8.2 L Magnesium AST ALT Total Protein Albumin Arterial Blood Glucose Arterial Blood Ionized Calcium Urine WBC (Auto) Urine Creatinine 08/07/21 08/07/21 08/07/21 04:00 05:16 12:12 WBC RBC Hgb Hct RDW Lymph % (Auto) Lymph # (Auto) [place] # (Auto) Seg Neutrophils % Seg Neuts % (Manual) Lymphocytes % (Manual) Nucleated RBC % Seg Neutrophils # Seg Neutrophils # Man Lymphocytes # (Manual) Monocytes # (Manual) D-Dimer ABG pH POC ABG pCO2 POC ABG pO2 80.1 L ABG Hemoglobin 9.8 L ABG Oxyhemoglobin ABG Sodium ABG Potassium ABG Chloride 111.0 H ABG Glucose 157 H Carboxyhemoglobin 0.3 L Sodium Potassium Chloride Carbon Dioxide BUN Creatinine Glucose POC Glucose 144 H 125 H Lactic Acid Calcium Magnesium AST ALT Total Protein Albumin Arterial Blood Glucose 157 H Arterial Blood Ionized Calcium 4.5 L Urine WBC (Auto) Urine Creatinine 08/07/21 08/08/21 08/08/21 23:20 04:47 06:00 WBC 13.8 H RBC 3.19 L Hgb 9.3 L Hct 28.4 L RDW 16.4 H Lymph % (Auto) Lymph # (Auto) [place] # (Auto) Seg Neutrophils % Seg Neuts % (Manual) Lymphocytes % (Manual) Nucleated RBC % Seg Neutrophils # Seg Neutrophils # Man Lymphocytes # (Manual) Monocytes # (Manual) D-Dimer ABG pH POC ABG pCO2 POC ABG pO2 ABG Hemoglobin ABG Oxyhemoglobin ABG Sodium ABG Potassium ABG Chloride ABG Glucose Carboxyhemoglobin Sodium Potassium Chloride Carbon Dioxide BUN Creatinine Glucose POC Glucose 118 H 130 H Lactic Acid Calcium Magnesium AST ALT Total Protein Albumin Arterial Blood Glucose Arterial Blood Ionized Calcium Urine WBC (Auto) Urine Creatinine 08/08/21 08/08/21 08/08/21 06:00 11:33 17:54 WBC RBC Hgb Hct RDW Lymph % (Auto) Lymph # (Auto) [place] # (Auto) Seg Neutrophils % Seg Neuts % (Manual) Lymphocytes % (Manual) Nucleated RBC % Seg Neutrophils # Seg Neutrophils # Man Lymphocytes # (Manual) Monocytes # (Manual) D-Dimer ABG pH POC ABG pCO2 POC ABG pO2 ABG Hemoglobin ABG Oxyhemoglobin ABG Sodium ABG Potassium ABG Chloride ABG Glucose Carboxyhemoglobin Sodium 147 H Potassium Chloride 112.4 H Carbon Dioxide BUN 71 H Creatinine 1.4 H Glucose 124 H POC Glucose 126 H 124 H Lactic Acid Calcium Magnesium AST ALT Total Protein Albumin Arterial Blood Glucose Arterial Blood Ionized Calcium Urine WBC (Auto) Urine Creatinine 08/08/21 08/09/21 08/09/21 23:41 06:06 10:00 WBC RBC Hgb Hct RDW Lymph % (Auto) Lymph # (Auto) [place] # (Auto) Seg Neutrophils % Seg Neuts % (Manual) Lymphocytes % (Manual) Nucleated RBC % Seg Neutrophils # Seg Neutrophils # Man Lymphocytes # (Manual) Monocytes # (Manual) D-Dimer ABG pH POC ABG pCO2 POC ABG pO2 ABG Hemoglobin ABG Oxyhemoglobin ABG Sodium ABG Potassium ABG Chloride ABG Glucose Carboxyhemoglobin Sodium 146 H Potassium Chloride 111.3 H Carbon Dioxide BUN 72 H Creatinine 1.5 H Glucose 119 H POC Glucose 119 H 127 H Lactic Acid Calcium Magnesium AST ALT 69 H Total Protein 5.2 L Albumin 2.6 L Arterial Blood Glucose Arterial Blood Ionized Calcium Urine WBC (Auto) Urine Creatinine 08/09/21 08/09/21 08/09/21 10:00 11:34 16:50 WBC 13.0 H RBC 2.88 L Hgb 8.5 L Hct 25.8 L RDW 16.5 H Lymph % (Auto) Lymph # (Auto) [place] # (Auto) Seg Neutrophils % Seg Neuts % (Manual) Lymphocytes % (Manual) Nucleated RBC % Seg Neutrophils # Seg Neutrophils # Man Lymphocytes # (Manual) Monocytes # (Manual) D-Dimer ABG pH POC ABG pCO2 POC ABG pO2 ABG Hemoglobin ABG Oxyhemoglobin ABG Sodium ABG Potassium ABG Chloride ABG Glucose Carboxyhemoglobin Sodium Potassium Chloride Carbon Dioxide BUN Creatinine Glucose POC Glucose 114 H 117 H Lactic Acid Calcium Magnesium AST ALT Total Protein Albumin Arterial Blood Glucose Arterial Blood Ionized Calcium Urine WBC (Auto) Urine Creatinine 08/10/21 08/10/21 08/10/21 00:12 05:20 05:20 WBC 13.2 H RBC 2.92 L Hgb 8.4 L Hct 25.9 L RDW 16.7 H Lymph % (Auto) Lymph # (Auto) [place] # (Auto) Seg Neutrophils % Seg Neuts % (Manual) Lymphocytes % (Manual) Nucleated RBC % Seg Neutrophils # Seg Neutrophils # Man Lymphocytes # (Manual) Monocytes # (Manual) D-Dimer ABG pH POC ABG pCO2 POC ABG pO2 ABG Hemoglobin ABG Oxyhemoglobin ABG Sodium ABG Potassium ABG Chloride ABG Glucose Carboxyhemoglobin Sodium 147 H Potassium Chloride 111.8 H Carbon Dioxide BUN 68 H Creatinine 1.4 H Glucose POC Glucose 114 H Lactic Acid Calcium Magnesium AST ALT Total Protein Albumin Arterial Blood Glucose Arterial Blood Ionized Calcium Urine WBC (Auto) Urine Creatinine 08/10/21 08/10/21 08/11/21 17:52 18:23 02:51 WBC RBC Hgb Hct RDW Lymph % (Auto) Lymph # (Auto) [place] # (Auto) Seg Neutrophils % Seg Neuts % (Manual) Lymphocytes % (Manual) Nucleated RBC % Seg Neutrophils # Seg Neutrophils # Man Lymphocytes # (Manual) Monocytes # (Manual) D-Dimer ABG pH POC ABG pCO2 POC ABG pO2 ABG Hemoglobin 8.7 L ABG Oxyhemoglobin ABG Sodium ABG Potassium ABG Chloride 111.0 H ABG Glucose Carboxyhemoglobin 0.2 L Sodium Potassium Chloride Carbon Dioxide BUN Creatinine Glucose POC Glucose 55 L 133 H Lactic Acid Calcium Magnesium AST ALT Total Protein Albumin Arterial Blood Glucose Arterial Blood Ionized Calcium 4.5 L Urine WBC (Auto) Urine Creatinine 08/11/21 08/11/21 08/11/21 04:30 11:36 17:11 WBC RBC Hgb Hct RDW Lymph % (Auto) Lymph # (Auto) [place] # (Auto) Seg Neutrophils % Seg Neuts % (Manual) Lymphocytes % (Manual) Nucleated RBC % Seg Neutrophils # Seg Neutrophils # Man Lymphocytes # (Manual) Monocytes # (Manual) D-Dimer ABG pH POC ABG pCO2 POC ABG pO2 ABG Hemoglobin ABG Oxyhemoglobin ABG Sodium ABG Potassium ABG Chloride ABG Glucose Carboxyhemoglobin Sodium Potassium Chloride 110.0 H Carbon Dioxide BUN 59 H Creatinine Glucose POC Glucose 116 H 115 H Lactic Acid Calcium 8.3 L Magnesium AST ALT 64 H Total Protein 5.5 L Albumin 2.6 L Arterial Blood Glucose Arterial Blood Ionized Calcium Urine WBC (Auto) Urine Creatinine 08/11/21 08/11/21 08/12/21 23:18 Unknown 05:05 WBC 12.2 H RBC 2.81 L Hgb 8.4 L Hct 25.4 L RDW 17.0 H Lymph % (Auto) Lymph # (Auto) [place] # (Auto) Seg Neutrophils % Seg Neuts % (Manual) Lymphocytes % (Manual) Nucleated RBC % Seg Neutrophils # Seg Neutrophils # Man Lymphocytes # (Manual) Monocytes # (Manual) D-Dimer ABG pH POC ABG pCO2 POC ABG pO2 ABG Hemoglobin ABG Oxyhemoglobin ABG Sodium ABG Potassium ABG Chloride ABG Glucose Carboxyhemoglobin Sodium Potassium Chloride Carbon Dioxide BUN Creatinine Glucose POC Glucose 126 H 131 H Lactic Acid Calcium Magnesium AST ALT Total Protein Albumin Arterial Blood Glucose Arterial Blood Ionized Calcium Urine WBC (Auto) Urine Creatinine 08/12/21 08/12/21 08/12/21 12:14 17:19 21:41 WBC 16.5 H RBC 3.04 L Hgb 8.9 L Hct 27.3 L RDW 17.0 H Lymph % (Auto) 9.0 L Lymph # (Auto) [place] # (Auto) 1.1 H Seg Neutrophils % 83.7 H Seg Neuts % (Manual) Lymphocytes % (Manual) Nucleated RBC % Seg Neutrophils # 13.8 H Seg Neutrophils # Man Lymphocytes # (Manual) Monocytes # (Manual) D-Dimer ABG pH POC ABG pCO2 POC ABG pO2 ABG Hemoglobin ABG Oxyhemoglobin ABG Sodium ABG Potassium ABG Chloride ABG Glucose Carboxyhemoglobin Sodium Potassium Chloride Carbon Dioxide BUN Creatinine Glucose POC Glucose 123 H 129 H Lactic Acid Calcium Magnesium AST ALT Total Protein Albumin Arterial Blood Glucose Arterial Blood Ionized Calcium Urine WBC (Auto) Urine Creatinine 08/12/21 08/12/21 08/13/21 21:41 23:26 05:24 WBC RBC Hgb Hct RDW Lymph % (Auto) Lymph # (Auto) [place] # (Auto) Seg Neutrophils % Seg Neuts % (Manual) Lymphocytes % (Manual) Nucleated RBC % Seg Neutrophils # Seg Neutrophils # Man Lymphocytes # (Manual) Monocytes # (Manual) D-Dimer ABG pH POC ABG pCO2 POC ABG pO2 ABG Hemoglobin ABG Oxyhemoglobin ABG Sodium ABG Potassium ABG Chloride ABG Glucose Carboxyhemoglobin Sodium 147 H Potassium Chloride 110.7 H Carbon Dioxide BUN 48 H Creatinine Glucose 147 H POC Glucose 133 H 109 H Lactic Acid Calcium Magnesium AST ALT Total Protein Albumin Arterial Blood Glucose Arterial Blood Ionized Calcium Urine WBC (Auto) Urine Creatinine 08/13/21 08/13/21 08/13/21 05:43 11:36 18:00 WBC RBC Hgb Hct RDW Lymph % (Auto) Lymph # (Auto) [place] # (Auto) Seg Neutrophils % Seg Neuts % (Manual) Lymphocytes % (Manual) Nucleated RBC % Seg Neutrophils # Seg Neutrophils # Man Lymphocytes # (Manual) Monocytes # (Manual) D-Dimer ABG pH POC ABG pCO2 POC ABG pO2 76.8 L ABG Hemoglobin 8.6 L ABG Oxyhemoglobin ABG Sodium ABG Potassium ABG Chloride 112.0 H ABG Glucose 126 H Carboxyhemoglobin 0.4 L Sodium Potassium Chloride Carbon Dioxide BUN Creatinine Glucose POC Glucose 127 H 128 H Lactic Acid Calcium Magnesium AST ALT Total Protein Albumin Arterial Blood Glucose 126 H Arterial Blood Ionized Calcium 4.4 L Urine WBC (Auto) Urine Creatinine 08/13/21 08/14/21 08/14/21 23:27 04:00 04:00 WBC RBC 2.65 L Hgb 8.1 L Hct 24.0 L RDW 17.1 H Lymph % (Auto) Lymph # (Auto) [place] # (Auto) Seg Neutrophils % Seg Neuts % (Manual) Lymphocytes % (Manual) Nucleated RBC % Seg Neutrophils # Seg Neutrophils # Man Lymphocytes # (Manual) Monocytes # (Manual) D-Dimer ABG pH POC ABG pCO2 POC ABG pO2 ABG Hemoglobin ABG Oxyhemoglobin ABG Sodium ABG Potassium ABG Chloride ABG Glucose Carboxyhemoglobin Sodium 146 H Potassium Chloride 108.7 H Carbon Dioxide 31 H BUN 38 H Creatinine Glucose 115 H POC Glucose 125 H Lactic Acid Calcium Magnesium AST ALT Total Protein 5.8 L Albumin 2.6 L Arterial Blood Glucose Arterial Blood Ionized Calcium Urine WBC (Auto) Urine Creatinine 08/14/21 08/14/21 08/15/21 05:24 11:34 05:16 WBC RBC Hgb Hct RDW Lymph % (Auto) Lymph # (Auto) [place] # (Auto) Seg Neutrophils % Seg Neuts % (Manual) Lymphocytes % (Manual) Nucleated RBC % Seg Neutrophils # Seg Neutrophils # Man Lymphocytes # (Manual) Monocytes # (Manual) D-Dimer ABG pH POC ABG pCO2 POC ABG pO2 ABG Hemoglobin ABG Oxyhemoglobin ABG Sodium ABG Potassium ABG Chloride ABG Glucose Carboxyhemoglobin Sodium Potassium Chloride Carbon Dioxide BUN Creatinine Glucose POC Glucose 126 H 126 H 110 H Lactic Acid Calcium Magnesium AST ALT Total Protein Albumin Arterial Blood Glucose Arterial Blood Ionized Calcium Urine WBC (Auto) Urine Creatinine 08/15/21 08/15/21 08/15/21 11:37 17:48 Unknown WBC RBC 2.53 L Hgb 7.7 L Hct 23.0 L RDW 17.0 H Lymph % (Auto) 12.5 L Lymph # (Auto) 1.0 L [place] # (Auto) Seg Neutrophils % 80.4 H Seg Neuts % (Manual) Lymphocytes % (Manual) Nucleated RBC % Seg Neutrophils # Seg Neutrophils # Man Lymphocytes # (Manual) Monocytes # (Manual) D-Dimer ABG pH POC ABG pCO2 POC ABG pO2 ABG Hemoglobin ABG Oxyhemoglobin ABG Sodium ABG Potassium ABG Chloride ABG Glucose Carboxyhemoglobin Sodium Potassium Chloride Carbon Dioxide BUN Creatinine Glucose POC Glucose 106 H 110 H Lactic Acid Calcium Magnesium AST ALT Total Protein Albumin Arterial Blood Glucose Arterial Blood Ionized Calcium Urine WBC (Auto) Urine Creatinine 08/15/21 08/16/21 08/16/21 Unknown 05:40 12:00 WBC RBC Hgb Hct RDW Lymph % (Auto) Lymph # (Auto) [place] # (Auto) Seg Neutrophils % Seg Neuts % (Manual) Lymphocytes % (Manual) Nucleated RBC % Seg Neutrophils # Seg Neutrophils # Man Lymphocytes # (Manual) Monocytes # (Manual) D-Dimer ABG pH POC ABG pCO2 POC ABG pO2 ABG Hemoglobin ABG Oxyhemoglobin ABG Sodium ABG Potassium ABG Chloride ABG Glucose Carboxyhemoglobin Sodium Potassium Chloride 107.2 H Carbon Dioxide BUN 36 H Creatinine Glucose 109 H POC Glucose 111 H 114 H Lactic Acid Calcium Magnesium AST ALT 63 H Total Protein 5.5 L Albumin 2.4 L Arterial Blood Glucose Arterial Blood Ionized Calcium Urine WBC (Auto) Urine Creatinine 08/16/21 08/16/21 08/16/21 12:36 12:36 17:08 WBC RBC 2.54 L Hgb 7.3 L Hct 22.8 L RDW 17.1 H Lymph % (Auto) Lymph # (Auto) [place] # (Auto) Seg Neutrophils % Seg Neuts % (Manual) Lymphocytes % (Manual) Nucleated RBC % Seg Neutrophils # Seg Neutrophils # Man Lymphocytes # (Manual) Monocytes # (Manual) D-Dimer ABG pH POC ABG pCO2 POC ABG pO2 ABG Hemoglobin ABG Oxyhemoglobin ABG Sodium ABG Potassium ABG Chloride ABG Glucose Carboxyhemoglobin Sodium Potassium Chloride Carbon Dioxide BUN 39 H Creatinine Glucose 123 H POC Glucose 112 H Lactic Acid Calcium Magnesium AST ALT Total Protein Albumin Arterial Blood Glucose Arterial Blood Ionized Calcium Urine WBC (Auto) Urine Creatinine 08/17/21 08/17/21 08/17/21 05:26 07:27 11:19 WBC RBC Hgb Hct RDW Lymph % (Auto) Lymph # (Auto) [place] # (Auto) Seg Neutrophils % Seg Neuts % (Manual) Lymphocytes % (Manual) Nucleated RBC % Seg Neutrophils # Seg Neutrophils # Man Lymphocytes # (Manual) Monocytes # (Manual) D-Dimer ABG pH 7.292 L POC ABG pCO2 52.2 H POC ABG pO2 80.8 L ABG Hemoglobin 9.2 L ABG Oxyhemoglobin 93.8 L ABG Sodium 135.3 L ABG Potassium ABG Chloride ABG Glucose 135 H Carboxyhemoglobin 0.2 L Sodium Potassium Chloride Carbon Dioxide BUN Creatinine Glucose POC Glucose 121 H 137 H Lactic Acid Calcium Magnesium AST ALT Total Protein Albumin Arterial Blood Glucose 135 H Arterial Blood Ionized Calcium Urine WBC (Auto) Urine Creatinine 08/17/21 08/17/21 08/17/21 17:20 Unknown Unknown WBC RBC 2.49 L Hgb 7.5 L Hct 22.2 L RDW 16.5 H Lymph % (Auto) Lymph # (Auto) [place] # (Auto) Seg Neutrophils % Seg Neuts % (Manual) Lymphocytes % (Manual) Nucleated RBC % Seg Neutrophils # Seg Neutrophils # Man Lymphocytes # (Manual) Monocytes # (Manual) D-Dimer ABG pH POC ABG pCO2 POC ABG pO2 ABG Hemoglobin ABG Oxyhemoglobin ABG Sodium ABG Potassium ABG Chloride ABG Glucose Carboxyhemoglobin Sodium Potassium Chloride Carbon Dioxide BUN 37 H Creatinine Glucose 117 H POC Glucose 106 H Lactic Acid Calcium Magnesium AST ALT Total Protein Albumin Arterial Blood Glucose Arterial Blood Ionized Calcium Urine WBC (Auto) Urine Creatinine Allied health notes reviewed: nursing
[2021-08-17 22:09] LABS: ABG Base Excess -1.4 mmol/L (-2.0-3.0); ABG HCO3 24.4 mmol/L (20.0-26.0); ABG Methemoglobin 0.3 % (0.0-1.5); ABG Oxygen Saturation 98.2 % (95.0-99.0); ABG PCO2 46.6 mm Hg; ABG PH 7.337 pH Units (7.350-7.450); ABG PO2 122.5 mm Hg (80.0-90.0)
[2021-08-18] MEDS: INSULIN LISPRO 100 UNIT/ML SUB-Q SCH ×4 (01:18→18:37)
[2021-08-18] MEDS: fentaNYL DRIP Premix 2,000 MCG/100 ML BAG IV SCH ×4 (02:41→18:35)
[2021-08-18] MEDS: FREE WATER PO SCH ×6 (02:42→22:02)
[2021-08-18] MEDS: oxyCODONE 5 MG TAB PO SCH ×3 (02:48→10:10)
--- NOTE | 2021-08-18 03:23 | Hem/Onc Progress Note ---
Subjective Interval history: oncology f/u televisit CPT 21142 66yo woman with h/o metastatic breast cancer affecting lungs bronchoscopy biopsy-->carcinoma c/w breast primary, ER/MT/H2N neg, TTf1 neg s/p trach and pg tube 08/10/21-->intervention for bleeding at [facility] 08/12/21 has been on minimal oxygen, but still requiring sedation has had arrythmia DATA REVIEWED BELOW\\ CXR bibasilar opacities IMP: h/o local breast cancer 2019, s/p chemotherapy now with metastatic cancer affecting lungs, mediastinum, and LN "triple negative breast cancer" L leg prox DVT-on lovenox "full dose" bid for weeks not a good candidate for chemotherapy, but chest tumor radiation may be possible s/p tracheostomy and PG tube 08/10/21 unable to safely stop sedation so far mod severe anemia partly due to bleeding REC: discussing transfer to LTAC; consider transfer to [place] oncologist Dr. Wade at [place] at [phone] RBC transfusion tomorrow decrease lovenox to 40mg daily (she has had enough "full dose") end of life discussion is appropriate, even though aggressive interventions are underway Active Medications Arformoterol Tartrate (Arformoterol 15 Mcg/2 Ml Nebu) 15 mcg IH Q12HRT DEMIAN Last Admin: 08/17/21 21:20 Dose: 15 mcg Documented by: Budesonide (Budesonide 0.5 Mg/2 Ml Nebu) 0.5 mg IH Q12HRT DEMIAN Last Admin: 08/17/21 21:20 Dose: 0.5 mg Documented by: Enoxaparin Sodium (Enoxaparin 100 Mg/1 Ml Inj) 100 mg SUB-Q Q12HR DEMIAN; Protocol Last Admin: 08/17/21 21:10 Dose: 100 mg Documented by: Laboratory Last Values WBC 6.7 K/mm3 (4.5-11.0) 08/17/21 Unknown Hgb 7.5 gm/dl (10.1-14.3) L 08/17/21 Unknown Hct 22.2 % (30.3-42.9) L 08/17/21 Unknown Plt Count 262 K/mm3 (140-440) 08/17/21 Unknown PT 14.5 Sec. (12.2-14.9) 09/17/21 21:41 INR 1.08 (0.87-1.13) 08/12/21 21:41 APTT 29.9 Sec. (24.2-36.6) 08/10/21 05:20 Creatinine 0.8 mg/dL (0.6-1.2) 08/17/21 Unknown AFB Identification Negative 08/02/21 14:30 Objective - Constitutional Vitals: Last Vital Signs Temp 97.9 F 08/17/21 19:35 Pulse 82 08/18/21 00:13 Resp 13 08/17/21 21:24 BP 110/69 08/18/21 00:13 Pulse Ox 100 08/18/21 00:13 - Labs Lab Results: Laboratory Results - last 24 hr 08/17/21 08/17/21 08/17/21 05:26 07:27 11:19 WBC RBC Hgb Hct MCV MCH MCHC RDW Plt Count ABG pH 7.292 L POC ABG pCO2 52.2 H ABG pCO2 POC ABG pO2 80.8 L ABG pO2 POC ABG HCO3 24.6 ABG HCO3 ABG O2 Saturation 94.3 ABG O2 Content POC ABG Base Excess -2.1 ABG Base Excess ABG Hemoglobin 9.2 L ABG Oxyhemoglobin 93.8 L ABG Carboxyhemoglobin ABG Methemoglobin 0.3 ABG Sodium 135.3 L ABG Potassium 4.3 ABG Chloride 103.0 ABG Glucose 135 H Oxyhemoglobin Carboxyhemoglobin 0.2 L FiO2 FiO2 % 30.0 Sodium Potassium Chloride Carbon Dioxide Anion Gap BUN Creatinine Estimated GFR BUN/Creatinine Ratio Glucose POC Glucose 121 H 137 H Calcium Arterial Blood Glucose 135 H Arterial Blood Ionized Calcium 4.6 08/17/21 08/17/21 08/17/21 17:20 21:23 Unknown WBC 6.7 RBC 2.49 L Hgb 7.5 L Hct 22.2 L MCV 89 MCH 30 MCHC 34 RDW 16.5 H Plt Count 262 ABG pH 7.337 L POC ABG pCO2 ABG pCO2 46.6 POC ABG pO2 ABG pO2 122.5 H POC ABG HCO3 ABG HCO3 24.4 ABG O2 Saturation 98.2 ABG O2 Content 10.6 POC ABG Base Excess ABG Base Excess -1.4 ABG Hemoglobin 7.6 L ABG Oxyhemoglobin ABG Carboxyhemoglobin 1.8 ABG Methemoglobin 0.3 ABG Sodium ABG Potassium ABG Chloride ABG Glucose Oxyhemoglobin 96.2 Carboxyhemoglobin FiO2 30 FiO2 % Sodium Potassium Chloride Carbon Dioxide Anion Gap BUN Creatinine Estimated GFR BUN/Creatinine Ratio Glucose POC Glucose 106 H Calcium Arterial Blood Glucose Arterial Blood Ionized Calcium 08/17/21 08/18/21 Unknown 00:04 WBC RBC Hgb Hct MCV MCH MCHC RDW Plt Count ABG pH POC ABG pCO2 ABG pCO2 POC ABG pO2 ABG pO2 POC ABG HCO3 ABG HCO3 ABG O2 Saturation ABG O2 Content POC ABG Base Excess ABG Base Excess ABG Hemoglobin ABG Oxyhemoglobin ABG Carboxyhemoglobin ABG Methemoglobin ABG Sodium ABG Potassium ABG Chloride ABG Glucose Oxyhemoglobin Carboxyhemoglobin FiO2 FiO2 % Sodium 139 Potassium 4.1 Chloride 102.6 Carbon Dioxide 24 Anion Gap 17 BUN 37 H Creatinine 0.8 Estimated GFR > 60 BUN/Creatinine Ratio 46 Glucose 117 H POC Glucose 107 H Calcium 8.9 Arterial Blood Glucose Arterial Blood Ionized Calcium Medications & Allergies - Medications Allergies/Adverse Reactions: Allergies No Known Allergies Allergy (Verified 12/24/18 11:45) Home Medications: Home Medications Medication Instructions Recorded Confirmed Last Taken Type traMADoL [Ultram 50 MG tab] 50 mg PO Q6HR PRN #15 tablet 01/25/18 Unknown Rx Active Medications: Generic Name Dose Route Start Last Admin Trade Name Freq PRN Reason Stop Dose Admin Acetaminophen 650 mg 07/28/21 02:11 Acetaminophen 325 Mg Tab PO Q6H PRN Pain MILD(1-3)/Fever >100.5/GARCIA Albuterol/Ipratropium 1 ampul 07/28/21 14:00 08/17/21 21:20 Ipratropium/Albuterol Sulfate 3 Ml Ampul.Neb IH 1 ampul TID DEMIAN Administration Lipase/Protease/Amylase 1 each 07/29/21 13:01 Lipase 10,500/Protease 25,000/Amylase 43,750 (Units) Dr Campoverde FEEDTUBE PRN PRN For Clogged Feeding Tube Arformoterol Tartrate 15 mcg 07/28/21 20:00 08/17/21 21:20 Arformoterol 15 Mcg/2 Ml Nebu IH 15 mcg Q12HRT DEMIAN Administration Bisacodyl 10 mg 08/07/21 09:50 08/16/21 18:32 Bisacodyl 10 Mg Rect Supp MT 10 mg QDAY PRN Administration Constip unreliev by MOM/or NPO Budesonide 0.5 mg 07/28/21 20:00 08/17/21 21:20 Budesonide 0.5 Mg/2 Ml Nebu IH 0.5 mg Q12HRT DEMIAN Administration Dextrose 50 ml 07/28/21 02:11 08/10/21 18:05 Dextrose 50% In Water (25gm) 50 Ml Syringe IV 20 ml Q30MIN PRN Administration Hypoglycemia Protocol Enoxaparin Sodium 100 mg 08/11/21 10:00 08/17/21 21:10 Enoxaparin 100 Mg/1 Ml Inj SUB-Q 100 mg Q12HR DEMIAN Administration Protocol Famotidine 20 mg 08/15/21 10:00 08/17/21 21:10 Famotidine 20 Mg Tab FEEDTUBE 20 mg BID DEMIAN Administration Fentanyl 50 mcg 07/29/21 10:42 08/04/21 09:05 Fentanyl 100 Mcg/2 Ml Inj IV 50 mcg Q10MIN PRN Administration ANALGESIA Hydralazine HCl 10 mg 07/30/21 14:52 08/03/21 17:31 Hydralazine 20 Mg/1 Ml Inj IV 10 mg Q6H PRN Administration SBP > 165 Hydrophilic Ointment 1 applic 07/29/21 10:42 Lip Therapy Vaseline TP Q2HR PRN Dry Lips Fentanyl Citrate 2,000 mcg in 100 mls @ 5.35 mls/hr 07/29/21 11:00 08/18/21 02:41 Fentanyl Drip Premix IV 4 mcg/kg/hr TITR DEMIAN 21.4 mls/hr Administration Protocol 1 MCG/KG/HR Midazolam HCl 100 mg/ Sodium 100 mls @ 2 mls/hr 07/29/21 11:00 08/16/21 18:30 Chloride IV 3 mg/hr TITR DEMIAN 3 mls/hr Titration Protocol 2 MG/HR Norepinephrine 4 mg in 250 mls @ 7.5 mls/hr 07/29/21 21:00 Levophed Drip 4 Mg/Ns 250 Ml IV TITR DEMIAN Protocol 2 MCG/MIN Propofol 1,000 mg in 100 mls @ 3.21 mls/hr 08/17/21 16:00 08/18/21 02:42 Diprivan 10 Mg/Ml IV 10 mcg/kg/min TITR DEMIAN 6.42 mls/hr Administration Protocol 5 MCG/KG/MIN Insulin Human Lispro 0 unit 07/29/21 12:00 08/18/21 01:18 Insulin Lispro 100 Unit/Ml SUB-Q Not Given Q6HR [facility] Protocol Magnesium Hydroxide 30 ml 07/28/21 02:11 Magnesium Hydroxide (Mom) Oral Liqd Udc PO Q4H PRN Constipation Midazolam HCl 2 mg 07/29/21 10:42 08/10/21 20:58 Midazolam 2 Mg/2 Ml Inj IV 2 mg Q10MIN PRN Administration Sedation Multi-Ingred Cream/Lotion/Oil/Oint 1 applic 07/29/21 10:42 Mineral Oil/Petrolatum, White Ophth Oint 3.5 Gm OU Q4HR PRN Dry Eye(s) Oxycodone HCl 15 mg 08/15/21 10:00 08/18/21 02:48 Oxycodone 5 Mg Tab PO 15 mg Q6H DEMIAN Administration Polyethylene Glycol 17 gm 08/11/21 16:00 08/17/21 09:49 Polyethylene Glycol 3350 17 Gm Powder PO 17 gm QDAY DEMIAN Administration Quetiapine Fumarate 100 mg 08/16/21 13:49 08/17/21 21:11 Quetiapine 100 Mg Tab PO 100 mg BID DEMIAN Administration Senna/Docusate Sodium 1 tab 08/11/21 13:00 08/17/21 21:12 Sennosides/Docusate Sodium 8.6/50 Mg Tab FEEDTUBE 1 tab Q8H DEMIAN Administration Simple Syrup 15 ml 07/29/21 13:01 Simple Syrup 15 Ml FEEDTUBE PRN PRN Hypoglycemia Simple Syrup 30 ml 07/29/21 13:01 Simple Syrup 15 Ml FEEDTUBE PRN PRN Hypoglycemia Sodium Bicarbonate 325 mg 07/29/21 13:01 Sodium Bicarbonate 325 Mg Tab FEEDTUBE PRN PRN For Clogged Feeding Tube Sodium Chloride 10 ml 07/28/21 10:00 08/17/21 21:13 Sodium Chloride 0.9% 10 Ml Flush Syringe IV 10 ml BID DEMIAN Administration Sodium Chloride 10 ml 07/28/21 02:05 Sodium Chloride 0.9% 10 Ml Flush Syringe IV PRN PRN LINE FLUSH
[2021-08-18] MEDS ORDERED: SODIUM CHLORIDE 0.9% 500 ML 500 ML IV ONE (04:00)
--- NOTE | 2021-08-18 04:42 | XRay Report ---
XR chest 1V ap INDICATION / CLINICAL INFORMATION: hypoxia. COMPARISON: Radiograph from yesterday. FINDINGS: SUPPORT DEVICES: Unchanged. HEART /PULMONARY VASCULATURE: Unchanged. LUNGS / PLEURA: There is improved atelectasis of the right upper lung. Moderate airspace opacity pers ists, may reflect volume loss or pneumonia. Left lung appears clear. No sizable pleural effusion. No pneumothorax. IMPRESSION: Improved right upper lung collapse with persistent airspace consolidation, which may reflect atelecta sis or pneumonia. Signer Name: Cuba Lackey MD Signed: 08/18/2021 4:37 AM Workstation Name: [id number]
[2021-08-18 05:50] LABS: Hematocrit 23.7 % (30.3-42.9); Hemoglobin 7.9 gm/dl (10.1-14.3); Mean Corpuscular HGB Conc 33 % (30-34); Mean Corpuscular Volume 90 fl (79-97); Platelet Count 286 K/mm3 (140-440); Red Blood Count 2.65 M/mm3 (3.65-5.03)
[2021-08-18] MEDS: SENNOSIDES/DOCUSATE SODIUM 8.6/50 MG TAB FEEDTUBE SCH ×3 (05:51→21:57)
[2021-08-18 06:14] LABS: Blood Urea Nitrogen 41 mg/dL (7-17); Calcium 8.9 mg/dL (8.4-10.2); Hemolysis Index 0
[2021-08-18 06:16] LABS: BUN/Creatinine Ratio 59
[2021-08-18] MEDS: BUDESONIDE 0.5 MG/2 ML NEBU IH SCH ×2 (09:17→20:56)
[2021-08-18] MEDS: ARFORMOTEROL 15 MCG/2 ML NEBU IH SCH ×2 (09:17→20:56)
[2021-08-18] MEDS: IPRATROPIUM/ALBUTEROL SULFATE 3 ML AMPUL.NEB IH SCH ×3 (09:17→20:56)
--- NOTE | 2021-08-18 09:20 | Event Note ---
Date: 08/18/21 I attempted to update the , Femi Smith, regarding the patient today. Mr. Smith stated "I have not talked to any doctor in over a week." He stated the results of the biopsy has not been conveyed to him. Dr. Abbott has reached out and conversed with family re: biopsy results per documentation. Dr. De La Cruz also has a documented that she has had a conversation regarding biopsy results with family prior to trach/peg. Dr. Weathers also informed family of biopsy results. Mr. Smith states that "nothing is being done" and "I am not hearing what I need to hear." He stated "I will be there and a doctor will talk to me." Unsure of timing Mr. Smith stated, either 3:30 or 4pm. Conveyed the [facility] no visitation policy. Communicated conversation with charge nurse, Colleen Delgado. I informed the that we are attempting to transfer patient to [facility] and hope she receives further care for her cancer. I asked him if he had another contact number for oncologist, Dr. Wade at [place] but he is not able to provide me with another number. However he states that Dr. Wade is aware of patient and results and "thinks reconstructive surgery is possible." Will alert Debbie SCHNEIDER, Dr. Og and Dr. Vigil. non CCT 30 mins
[2021-08-18] MEDS ORDERED: SODIUM CHLORIDE 0.9% 500 ML 500 ML ONE (09:47)
[2021-08-18] MEDS: POLYETHYLENE GLYCOL 3350 17 GM POWDER PO SCH (10:11)
[2021-08-18] MEDS: QUEtiapine 100 MG TAB PO SCH ×2 (10:11→21:58)
[2021-08-18] MEDS: FAMOTIDINE 20 MG TAB FEEDTUBE SCH ×2 (10:11→21:58)
--- NOTE | 2021-08-18 12:47 | Progress Note ---
Assessment and Plan Assessment and plan: This is a 66-year-old female with HTN, DM, HLD and COPD admitted for acute hypoxic respiratory failure, COPD exacerbation, pneumonia and left lower leg DVT Neuro: Acute metabolic encephalopathy; agitation -Sedated with Versed and fentanyl, Seroquel -RASS goal -2 to -3 -Avoid delirium -Reorientation as needed -Bilateral restraints for safety -Daily SAT limited by agitation hypoxia Cardio: ST, h/o HTN, s/p cardiac arrest, h/o HLD -Echocardiogram completed-> EF 50 to 55% with mild diastolic dysfunction -Blood pressure monitor per protocol -MAP goal > 65 -Patient had cardiac arrest on 07/29 and was intubated -Antihypertensives prn Respiratory: Acute hypoxic respiratory failure, COPD exacerbation; lung ca with mediastinal mass -CCM consulted, appreciate recommendations - S/P trach and PEG 08/10 -S/p emergent surgery for control of hemorrhage from tracheostomy site on 08/12/2021 -VAP bundle -Daily SBT and SAT trials as tolerated -intubated with 7.50 ETT at 22 at the lips on 07/29 see RT flow sheet for vent settings Started on a CPAP trial this morning however she failed due to bradycardia into upper 40s -Daily ABG and CXR -Continue SPO2 monitoring -A.m. vent settings: Assist-control rate 16, tidal volume 450, PEEP 8, 30% FiO2 GI: MO -NTR consult for tube feeding -BR: MiraLAX, Senokot, PRN ducolax -24-hour +464 -PPI -08/17 KUB shows good amount of fecal material throughout the colon : Acute kidney injury likely 2/2 vasomotor nephropathy/pre-renal; hyperchloremia -Nephrology consulted, appreciate recommendations -08/01 FeNA calculated at 0.13-> indicating prerenal -trend Cr -Strict intake and output -Avoid nephrotoxic medications -Renally dose medications -Elizabeth in place; Elizabeth changed on 08/05 -follow and replace electrolytes as needed -Free water flush 200 every 4 ID: Acute sepsis, pneumonia; febrile -ABX therapy: Cefepime -07/27 BC x2 with no growth after 4 days -07/29 tracheal aspirate with no growth -follow culture data -Monitor CBC and fever curve -ID following Heme: Left lower leg DVT, lung mass likely breast carcinoma with metastasis -Lovenox sub q -SCDs to bilateral lower extremities while in bed -Trend CBC -DVT evidenced on BLE US -heme onc following Oncology: h/o breast cancer, Lung mass, breast carcinoma with metastasis -CXR shows suspicious nodular density at the left base -08/02 bronchoscopy -Heme/oncology consulted, appreciate recommendations -08/02 bronchoscopy completed; washings and brush sent for cytology, cell count and AFB-> preliminary results obtained, see report -08/02: AFB from [facility] negative -08/02 PTH surgical report: Biomarker ER, MA, HER-2 negative, TTF1 and HMB 4 5 are not expressed -CEA low -Heme onc following ? transfer to higher level of care oncologist Dr. Wade at [facility] at [phone] Endo: h/o DM; stress hyperglycemia -SSI -Avoid hypoglycemia -Lantus, titrate as needed AWAITING LTACH TRANSFER The high probability of a clinically significant, sudden or life threatening deterioration of the [multi] system(s) required my full and direct attention, intervention and personal management. The aggregate critical care time was [60] minutes. This time is in addition to time spent performing reported procedures but includes the following: [x] Data Review and interpretation [x] Patient assessment and monitoring of vital signs [x] Documentation [x] Medication orders and management Disposition Plan: icu Total Time Spent with Patient (Minutes): 60 History Interval history: This is a 66-year-old female with HTN, DM, HLD and COPD who presented to emergency department on 07/28 with complaints of difficulty in breathing ongoing for the past few days via EMS. En route she was given Solu-Medrol IV magnesium and albuterol nebulizing treatment. Upon arrival to emergency department patient had multiple rounds of embolizing treatments and was subsequently placed on BiPAP with some improvement. Patient has been fully vaccinated. Work-up in the emergency department revealed CXR suspicious for right-sided pneumonia, nodular density in the left base and increased interstitial markings which may be chronic. Patient was admitted to the hospitalist service with electrolyte imbalances, leukocytosis, COPD exacerbation, hypoxia and possible pneumonia. 07/29/2021. Patient seen this morning with Shabbir-Chavira respiration/agonal breathing. RENEE ABREU was called and patient was intubated and placed on mechanical ventilation. Patient transferred to ICU. Critical care/pulmonary consulted. Patient currently with AC mode rate of 30, FiO2 100%, PEEP of 12. Continue IV antibiotics. Consult ID and oncology for further evaluation. Patient will likely need bronchoscopy for further evaluation of the lung mass. Doppler ultrasound revealedLLE DVT. Start anticoagulation. 07/30/2021. Patient appears much improved and more responsive this morning. Patient currently with AC mode ventilation rate of 24, tidal volume 450, PEEP of 8 and FiO2 35%. Spontaneous breathing trials with possible extubation today per pulmonary. Bronchoscopy per pulmonary. Continue Lovenox twice daily for DVT. Continue IV antibiotics for sepsis/pneumonia. ID consultation pending. Follow-up CEA, CA 15-3, [place] 2729. 07/31/2021. Echocardiogram reveals left ventricular size and function are normal. EF 50 to 55% with mild diastolic dysfunction. Patient currently with CPAP/PSV trial 11/02. Anticipate extubation today per pulmonary. Bronchoscopy per pulmonary. Continue Lovenox twice daily for DVT. Continue IV antibiotics for sepsis/pneumonia. ID consultation pending. Follow-up CEA, CA 15-3, [place] 2729. 08/01: ALIYAH 08/02: Patient had a bronchoscopy today. Cell count, cytology and AFB sent from samples. Patient remains sedated on fentanyl and Versed. Patient and daughter Rosana were updated. 08/03: [facility] follow-up on [facility] specimens and was informed patient specimens indicate cancer. Communicated to Dr. Abbott and he stated he will update family. 08/04: Patient remains sedated on fentanyl and Versed, patient has moments of agitation with any stimulation. CPAP trial unable to be completed today due to agitation. 08/05: Patient had low urine output overnight and Elizabeth catheter was changed this a.m. with 2 L of urine output received. Patient did have a increase in creatinine however this may have been obstructive process and nephrology is aware. Hematology/oncology spoke to family who wishes for everything to be done despite bronchial washings with cancer cells. [facility] contacted patient's onco logist to help facilitate transfer. We attempted to hold sedation for CPAP trial however patient became extremely agitated and sedation was restarted. 08/06: Surgery consulted for possible trach. Leukocytosis and renal function slowly improving. No acute events reported overnight. 08/07: Creatinine continues to decrease, patient has slight hyper natremia and hyperchloremia. Patient remains on fentanyl and Versed with periods of agitation. Increasing free water flushes. 08-08 improving cr; febrile; family wants full care/full code- heme onc following 08-09 LOW GRADE FEVERS; FOR TRACH/PEG 08/10: Patient seen and examined, had Bronchoscopy and Trach and PEG today, follow report. Continue supportive care. 08/11: Patient remains on full vent support. Continue supportive care. 08/12: This morning patient noted with bleeding around trach surgery consulted going for emergent surgery. Labs ordered 08/13: Patient seen and examined, no further bleeding, had surgical intervention yesterday for trach site bleeding. No further bleeding this am. Patient otherwise remains on mechanical ventilation. Leukocytosis mildly worsened today this could be reactive has no fever will monitor mental status is still severely encephalopathic. 08/14/21 patient seen and examined. Lab and medication reviewed. No further bleeding from track site. Hemoglobin is 8.1. Hematocrit 24.2 and WBC 9.7. C ontinue current management and supportive care. Recheck CBC CMP in the morning 08/15: Overnight patient experienced sinus pericardia with return, will receive MiraLAX and CPAP trial today. 08/16: CPAP trial failed today. 08/17: given ducloax suppository today 08/18: failed cpap today as she became bradycardiac. able to follow simple commands. update today by phone. See note for details. Ltach referral sent Hospitalist Physical - Constitutional Vitals: Temp Pulse Resp BP Pulse Ox 98.5 F 78 12 106/62 100 08/18/21 11:57 08/18/21 11:30 08/18/21 11:30 08/18/21 11:30 08/18/21 11:30 General appearance: Present: no acute distress, well-nourished, other - EENT Eyes: Present: PERRL, EOM intact ENT: hearing intact, clear oral mucosa - Neck Neck: Present: normal ROM - Respiratory Respiratory effort: normal Respiratory: bilateral: diminished - Cardiovascular Rhythm: regular Heart Sounds: Present: S1 & S2. Absent: systolic murmur, diastolic murmur - Extremities Extremities: no ischemia, pulses intact, pulses symmetrical, normal temperature, normal color Peripheral Pulses: within normal limits - Abdominal General gastrointestinal: soft, non-tender, non-distended, normal bowel sounds - Integumentary Integumentary: Present: warm, dry - Psychiatric Psychiatric: cooperative - Neurologic Neurologic: moves all extremities - Allied Health Allied health notes reviewed: nursing, RT, social work Results - Labs CBC & Chem 7: 08/18/21 05:10 08/18/21 05:10 Labs: Laboratory Last Values WBC 6.2 K/mm3 (4.5-11.0) 08/18/21 05:10 RBC 2.65 M/mm3 (3.65-5.03) L 08/18/21 05:10 Hgb 7.9 gm/dl (10.1-14.3) L 08/18/21 05:10 Hct 23.7 % (30.3-42.9) L 08/18/21 05:10 MCV 90 fl (79-97) 08/18/21 05:10 MCH 30 pg (28-32) 08/18/21 05:10 MCHC 33 % (30-34) 08/18/21 05:10 RDW 17.0 % (13.2-15.2) H 08/18/21 05:10 Plt Count 286 K/mm3 (140-440) 08/18/21 05:10 Lymph % (Auto) 12.5 % (13.4-35.0) L 08/15/21 Unknown [place] % (Auto) 5.9 % (0.0-7.3) 08/15/21 Unknown Eos % (Auto) 0.9 % (0.0-4.3) 08/15/21 Unknown Baso % (Auto) 0.3 % (0.0-1.8) 08/15/21 Unknown Lymph # (Auto) 1.0 K/mm3 (1.2-5.4) L 08/15/21 Unknown [place] # (Auto) 0.5 K/mm3 (0.0-0.8) 08/15/21 Unknown Eos # (Auto) 0.1 K/mm3 (0.0-0.4) 08/15/21 Unknown Baso # (Auto) 0.0 K/mm3 (0.0-0.1) 08/15/21 Unknown Add Manual Diff Complete 08/05/21 04:50 Total Counted 100 08/05/21 04:50 Seg Neutrophils % 80.4 % (40.0-70.0) H 08/15/21 Unknown Seg Neuts % (Manual) 75.0 % (40.0-70.0) H 08/05/21 04:50 Band Neutrophils % 8.0 % 08/05/21 04:50 Lymphocytes % (Manual) 2.0 % (13.4-35.0) L 08/05/21 04:50 Monocytes % (Manual) 5.0 % (0.0-7.3) 08/05/21 04:50 Eosinophils % (Manual) 1.0 % (0.0-4.3) 08/05/21 04:50 Metamyelocytes % 6.0 % 08/05/21 04:50 Myelocytes % 3.0 % 08/05/21 04:50 Nucleated RBC % Not Reportable 08/05/21 04:50 Seg Neutrophils # 6.4 K/mm3 (1.8-7.7) 08/15/21 Unknown Seg Neutrophils # Man 14.3 K/mm3 (1.8-7.7) H 08/05/21 04:50 Band Neutrophils # 1.5 K/mm3 08/05/21 04:50 Lymphocytes # (Manual) 0.4 K/mm3 (1.2-5.4) L 08/05/21 04:50 Abs React Lymphs (Man) 0.0 K/mm3 08/05/21 04:50 Monocytes # (Manual) 1.0 K/mm3 (0.0-0.8) H 08/05/21 04:50 Eosinophils # (Manual) 0.2 K/mm3 (0.0-0.4) 08/05/21 04:50 Basophils # (Manual) 0.0 K/mm3 (0.0-0.1) 08/05/21 04:50 Metamyelocytes # 1.1 K/mm3 08/05/21 04:50 Myelocytes # 0.6 K/mm3 08/05/21 04:50 Promyelocytes # 0.0 K/mm3 08/05/21 04:50 Blast Cells # 0.0 K/mm3 08/05/21 04:50 WBC Morphology Not Reportable 08/05/21 04:50 Hypersegmented Neuts Not Reportable 08/05/21 04:50 Hyposegmented Neuts Not Reportable 08/05/21 04:50 Hypogranular Neuts Not Reportable 08/05/21 04:50 Smudge Cells Not Reportable 08/05/21 04:50 Toxic Granulation Not Reportable 08/05/21 04:50 Toxic Vacuolation Not Reportable 08/05/21 04:50 Dohle Bodies Not Reportable 08/05/21 04:50 Pelger-Huet Anomaly Not Reportable 08/05/21 04:50 Beryl Rods Not Reportable 08/05/21 04:50 Platelet Estimate Consistent w auto 08/05/21 04:50 Clumped Platelets Not Reportable 08/05/21 04:50 Plt Clumps, EDTA Not Reportable 08/05/21 04:50 Large Platelets Not Reportable 08/05/21 04:50 Giant Platelets Not Reportable 08/05/21 04:50 Platelet Satelliting Not Reportable 08/05/21 04:50 Plt Morphology Comment Not Reportable 08/05/21 04:50 RBC Morphology Not Reportable 08/05/21 04:50 Dimorphic RBCs Not Reportable 08/05/21 04:50 Polychromasia Not Reportable 08/05/21 04:50 Hypochromasia Not Reportable 08/05/21 04:50 Poikilocytosis Not Reportable 08/05/21 04:50 Anisocytosis Not Reportable 08/05/21 04:50 Microcytosis Not Reportable 08/05/21 04:50 Macrocytosis Not Reportable 08/05/21 04:50 Spherocytes Not Reportable 08/05/21 04:50 Pappenheimer Bodies Not Reportable 08/05/21 04:50 Sickle Cells Not Reportable 08/05/21 04:50 Target Cells Not Reportable 08/05/21 04:50 Tear Drop Cells Not Reportable 08/05/21 04:50 Ovalocytes Few 08/05/21 04:50 Helmet Cells Not Reportable 08/05/21 04:50 [place] Bodies Not Reportable 08/05/21 04:50 [place] Rings Not Reportable 08/05/21 04:50 [place] Cells Not Reportable 08/05/21 04:50 Bite Cells Not Reportable 08/05/21 04:50 Crenated Cell Not Reportable 08/05/21 04:50 Elliptocytes Not Reportable 08/05/21 04:50 Acanthocytes (Spur) Not Reportable 08/05/21 04:50 Rouleaux Not Reportable 08/05/21 04:50 Hemoglobin C Crystals Not Reportable 08/05/21 04:50 Schistocytes Not Reportable 08/05/21 04:50 Malaria parasites Not Reportable 08/05/21 04:50 Gurmeet Bodies Not Reportable 08/05/21 04:50 Hem Pathologist Commnt No 08/05/21 04:50 PT 14.5 Sec. (12.2-14.9) 08/12/21 21:41 INR 1.08 (0.87-1.13) 08/12/21 21:41 APTT 29.9 Sec. (24.2-36.6) 08/10/21 05:20 D-Dimer 852.47 ng/mlDDU (0-234) H 07/29/21 07:17 ABG pH 7.337 pH Units (7.350-7.450) L 08/17/21 21:23 POC ABG pCO2 52.2 mmHg (32.0-48.0) H 08/17/21 07:27 ABG pCO2 46.6 mm Hg 08/17/21 21:23 POC ABG pO2 80.8 mmHg (83-108) L 08/17/21 07:27 ABG pO2 122.5 mm Hg (80.0-90.0) H 08/17/21 21:23 POC ABG HCO3 24.6 08/17/21 07:27 ABG HCO3 24.4 mmol/L (20.0-26.0) 08/17/21 21:23 ABG O2 Saturation 98.2 % (95.0-99.0) 08/17/21 21: ABG O2 Content 10.6 (0.0-44) 08/17/21 21:23 POC ABG Base Excess -2.1 08/17/21 07:27 ABG Base Excess -1.4 mmol/L (-2.0-3.0) 08/17/21 21:23 ABG Hemoglobin 7.6 gm/dl (12.0-16.0) L 08/17/21 21:23 ABG Oxyhemoglobin 93.8 (94-98) L 08/17/21 07:27 ABG Carboxyhemoglobin 1.8 % (0.0-5.0) 08/17/21 21: ABG Methemoglobin 0.3 % (0.0-1.5) 08/17/21 21:23 ABG Sodium 135.3 mmol/L (136.0-145.0) L 08/17/21 07:27 ABG Potassium 4.3 mmol/L (3.40-4.50) 08/17/21 07:27 ABG Chloride 103.0 mmol/L (98-107) 08/17/21 07:27 ABG Glucose 135 mg/dL (65-95) H 08/17/21 07:27 Oxyhemoglobin 96.2 % (95.0-99.0) 08/17/21 21:23 Carboxyhemoglobin 0.2 (0.5-1.5) L 08/17/21 07:27 FiO2 30 % 08/17/21 21:23 FiO2 % 30.0 08/17/21 07:27 Sodium 136 mmol/L (137-145) L 08/18/21 05:10 Potassium 4.3 mmol/L (3.6-5.0) 08/18/21 05:10 Chloride 99.7 mmol/L (98-107) 08/18/21 05:10 Carbon Dioxide 24 mmol/L (22-30) 08/18/21 05:10 Anion Gap 17 mmol/L 08/18/21 05:10 BUN 41 mg/dL (7-17) H 08/18/21 05:10 Creatinine 0.7 mg/dL (0.6-1.2) 08/18/21 05:10 Estimated GFR > 60 ml/min 08/18/21 05:10 BUN/Creatinine Ratio 59 % 08/18/21 05:10 Glucose 122 mg/dL (65-100) H 08/18/21 05:10 POC Glucose 126 mg/dL (70-105) H 08/18/21 11:47 Lactic Acid 2.10 mmol/L (0.7-2.0) H* 08/03/21 15:11 Calcium 8.9 mg/dL (8.4-10.2) 08/18/21 05:10 Phosphorus 4.10 mg/dL (2.5-4.5) 08/08/21 06:00 Magnesium 1.70 mg/dL (1.7-2.3) 08/12/21 21:41 Total Bilirubin 0.40 mg/dL (0.1-1.2) 08/15/21 Unknown AST 40 units/L (5-40) 08/15/21 Unknown ALT 63 units/L (7-56) H 08/15/21 Unknown Alkaline Phosphatase 102 units/L (35-129) 08/15/21 Unknown Total Protein 5.5 g/dL (6.3-8.2) L 08/15/21 Unknown Albumin 2.4 g/dL (3.9-5) L 08/15/21 Unknown Albumin/Globulin Ratio 0.8 % 08/15/21 Unknown Carcinoembryonic Ag <0.5 ng/mL (0.0-2.4) 07/31/21 04:45 Arterial Blood Glucose 135 mg/dL (65-95) H 08/17/21 07:27 Arterial Blood Ionized Calcium 4.6 mg/dL (4.6-5.3) 08/17/21 07:27 Urine Color Yellow (Yellow) 08/08/21 20: Urine Turbidity Slightly-cloudy (Clear) 08/08/21 20: Urine pH 5.0 (5.0-7.0) 08/08/21 20: Ur Specific M[place]le[place] 1.014 (1.003-1.030) 08/08/21 20: Urine Protein 30 mg/dl mg/dL (Negative) 08/08/21 20: Urine Glucose (UA) Neg mg/dL (Negative) 08/08/21 20: Urine Ketones Neg mg/dL (Negative) 08/08/21 20: Urine Blood Mod (Negative) 08/08/21 20: Urine Nitrite Neg (Negative) 08/08/21 20: Urine Bilirubin Neg (Negative) 08/08/21 20: Urine Urobilinogen < 2.0 mg/dL (<2.0) 08/08/21 20: Ur Leukocyte Esterase Neg (Negative) 08/08/21 20: Urine WBC (Auto) 6.0 /HPF (0.0-6.0) 08/08/21 20: Urine RBC (Auto) 6.0 /HPF (0.0-6.0) 08/08/21 20: U Epithel Cells (Auto) < 1.0 /HPF (0-13.0) 08/08/21 20:27 Urine Bacteria (Auto) 1+ /HPF (Negative) 08/08/21 20:27 Urine Mucus Few /HPF 08/08/21 20:27 Urine Yeast (Budding) 1+ /HPF 08/08/21 20:27 Urine Creatinine 125.6 mg/dL (0.1-20.0) H 08/01/21 Unknown Urine Sodium 12 mmol/L 08/01/21 Unknown Double Strand DNA Ab 1 IU/mL (<=4) 08/02/21 15:40 Coronavirus (PCR) Negative (Negative) 07/29/21 07:58 Hepatitis A IgM Ab Non-reactive (NonReactive) 08/02/21 15:40 Hep Bs Antigen Nonreactive (Negative) 08/02/21 15:40 Hep B Core IgM Ab Non-reactive (NonReactive) 08/02/21 15:40 Hepatitis C Antibody Non-reactive (NonReactive) 08/02/21 15:40 AFB Identification Negative 08/02/21 14:30 Blood Type A POSITIVE 08/18/21 05:10 Antibody Screen Negative 08/18/21 05:10 Crossmatch See Detail 08/18/21 05:10 Elizabeth/IV: Voiding Method Indwelling Catheter Active Medications - Current Medications Current Medications: Generic Name Dose Route Start Last Admin Trade Name Freq PRN Reason Stop Dose Admin Acetaminophen 650 mg 07/28/21 02:11 Acetaminophen 325 Mg Tab PO Q6H PRN Pain MILD(1-3)/Fever >100.5/GARCIA Albuterol/Ipratropium 1 ampul 07/28/21 14:00 08/18/21 09:17 Ipratropium/Albuterol Sulfate 3 Ml Ampul.Neb IH 1 ampul TID DEMIAN Administration Lipase/Protease/Amylase 1 each 07/29/21 13:01 Lipase 10,500/Protease 25,000/Amylase 43,750 (Units) Dr Campoverde FEEDTUBE PRN PRN For Clogged Feeding Tube Arformoterol Tartrate 15 mcg 07/28/21 20:00 08/18/21 09:17 Arformoterol 15 Mcg/2 Ml Nebu IH 15 mcg Q12HRT DEMIAN Administration Bisacodyl 10 mg 08/07/21 09:50 08/16/21 18:32 Bisacodyl 10 Mg Rect Supp MA 10 mg QDAY PRN Administration Constip unreliev by MOM/or NPO Budesonide 0.5 mg 07/28/21 20:00 08/18/21 09:17 Budesonide 0.5 Mg/2 Ml Nebu IH 0.5 mg Q12HRT DEMIAN Administration Dextrose 50 ml 07/28/21 02:11 08/10/21 18:05 Dextrose 50% In Water (25gm) 50 Ml Syringe IV 20 ml Q30MIN PRN Administration Hypoglycemia Protocol Enoxaparin Sodium 40 mg 08/19/21 10:00 Enoxaparin 40 Mg/0.4 Ml Inj SUB-Q QDAY DEMIAN Protocol Famotidine 20 mg 08/15/21 10:00 08/18/21 10:11 Famotidine 20 Mg Tab FEEDTUBE 20 mg BID DEMIAN Administration Fentanyl 50 mcg 07/29/21 10:42 08/04/21 09:05 Fentanyl 100 Mcg/2 Ml Inj IV 50 mcg Q10MIN PRN Administration ANALGESIA Hydralazine HCl 10 mg 07/30/21 14:52 08/03/21 17:31 Hydralazine 20 Mg/1 Ml Inj IV 10 mg Q6H PRN Administration SBP > 165 Hydrophilic Ointment 1 applic 07/29/21 10:42 Lip Therapy Vaseline TP Q2HR PRN Dry Lips Fentanyl Citrate 2,000 mcg in 100 mls @ 5.35 mls/hr 07/29/21 11:00 08/18/21 03:50 Fentanyl Drip Premix IV 4 mcg/kg/hr TITR DEMIAN 21.4 mls/hr Administration Protocol 1 MCG/KG/HR Norepinephrine 4 mg in 250 mls @ 7.5 mls/hr 07/29/21 21:00 Levophed Drip 4 Mg/Ns 250 Ml IV TITR DEMIAN Protocol 2 MCG/MIN Propofol 1,000 mg in 100 mls @ 3.21 mls/hr 08/17/21 16:00 08/18/21 02:42 Diprivan 10 Mg/Ml IV 10 mcg/kg/min TITR DEMIAN 6.42 mls/hr Administration Protocol 5 MCG/KG/MIN Insulin Human Lispro 0 unit 07/29/21 12:00 08/18/21 06:13 Insulin Lispro 100 Unit/Ml SUB-Q Not Given Q6HR DEMIAN Protocol Magnesium Hydroxide 30 ml 07/28/21 02:11 Magnesium Hydroxide (Mom) Oral Liqd Udc PO Q4H PRN Constipation Multi-Ingred Cream/Lotion/Oil/Oint 1 applic 07/29/21 10:42 Mineral Oil/Petrolatum, White Ophth Oint 3.5 Gm OU Q4HR PRN Dry Eye(s) Oxycodone HCl 15 mg 08/15/21 10:00 08/18/21 10:10 Oxycodone 5 Mg Tab PO 15 mg Q6H DEMIAN Administration Polyethylene Glycol 17 gm 08/11/21 16:00 08/18/21 10:11 Polyethylene Glycol 3350 17 Gm Powder PO 17 gm QDAY DEMIAN Administration Quetiapine Fumarate 100 mg 08/16/21 13:49 08/18/21 10:11 Quetiapine 100 Mg Tab PO 100 mg BID DEMIAN Administration Senna/Docusate Sodium 1 tab 08/11/21 13:00 08/18/21 05:51 Sennosides/Docusate Sodium 8.6/50 Mg Tab FEEDTUBE 1 tab Q8H DEMIAN Administration Simple Syrup 15 ml 07/29/21 13:01 Simple Syrup 15 Ml FEEDTUBE PRN PRN Hypoglycemia Simple Syrup 30 ml 07/29/21 13:01 Simple Syrup 15 Ml FEEDTUBE PRN PRN Hypoglycemia Sodium Bicarbonate 325 mg 07/29/21 13:01 Sodium Bicarbonate 325 Mg Tab FEEDTUBE PRN PRN For Clogged Feeding Tube Sodium Chloride 10 ml 07/28/21 10:00 08/18/21 10:11 Sodium Chloride 0.9% 10 Ml Flush Syringe IV 10 ml BID DEMIAN Administration Sodium Chloride 10 ml 07/28/21 02:05 Sodium Chloride 0.9% 10 Ml Flush Syringe IV PRN PRN LINE FLUSH Nutrition/Malnutrition Assess - Dietary Evaluation Nutrition/Malnutrition Findings: Nutrition Notes Start: 07/28/21 14:44 Freq: Status: Active Protocol: Document 08/16/21 15:09 KAREY (Rec: 08/16/21 15:16 KAREY [id number]) Nutrition Notes Initial or Follow up Reassessment Current Diagnosis Diabetes,Hypertension, Respiratory Failure, Hyperlipidemia Current Diet TF - Vital AF 1.2 at 50ml/hr Labs/Tests Na 144 Pertinent Medications Senna, Miralax, Dulcolax Height 5 ft Weight 107 kg [place] Body Weight (kg) 45.45 BMI 46.0 Weight Status Morbidly Obese Subjective/Other Information Spoke with RN via phone at 15: 08. Pt still has not had a BM . Medications given today. Pt tolerating TF at goal rate and remains on vent support. Percent of energy/protein needs met: 78% energy 79% pro Burn Absent Trauma Absent GI Symptoms Constipation #1 Nutrition Diagnosis Inadequate oral intake Diagnosis Progress(for reassessment Continues documentation) Is patient on ventilator? Yes Is Patient Ambulatory and/or Out of Bed No REE-(Champion-. Jeor-confined to bed) 1842.852 Kcal/Kg value to use for calculation 13 Approximate Energy Requirements Using 1391 kcal/Kg Calculation Used for Recommendations Kcal/kg Additional Notes Protein: (up to 2.5g/kg IBW) up to 114g Fluid: 1 ml/kcal or per MD Nutrition Intervention Nutrition Support: Continue Vital AF 1.2 at 50 ml /hr. Per RN, pt receiving 200ml water flush q4h. Kcal 1,440 Protein (gm) 90 Fluid (mL) 973 Goal #1 TF tolerance Goal #2 TF to meet at least 75% energy and pro needs Follow-Up By: 08/23/21 Additional Comments F/U: stable TF, BM, vent status
--- NOTE | 2021-08-18 13:29 | Progress Note ---
Assessment and Plan Acute hypoxemic respiratory failure secondary Lung Mass (? Lung vs Breast CA) Acute COPD exacerbation Possible hypercapnia History of right breast cancer Leukocytosis DM II Hypertension Hyperlipidemia Tobacco use disorder - awaiting transfer to LTAC - hopefully can be seen by radiologic oncologist +/- RTX to central lesions / mediastinopathy - keep set rate at 12/min - continue care as below otherwise; - continue daily SAT and SBT assessment as tolerated - s/p full anticoagulation for VTE - continue Seroquel to spare IV sedatives - azotemia per nephrology - continue to wean supplemental oxygen for target O2 sat's > 90% acutely - VAP bundle addressed - continue lung protective strategies - continue bronchodilators (GLADIS & LABA) with pulmonary hygiene per RT - wean per pulmonary driven protocols otherwise - continue accuchecks with glycemic control per SSI (While critically ill target blood glucose of 140-180 mg/dL; avoid hypoglycemia) - sedation prn for target RASS 0 to -1 - avoid nephrotoxins, renally dose all medications - continue to avoid benzodiazepine's, reduce the possibility of delirium - complete AB's per ID rec's - prn analgesia per CPOT score - Maintenance of sleep-wake cycle, avoid delirium - enteral nutritional support at goal rate as tolerated - G.I. & VTE prophylaxis - PT/OT/ROM exercises - continue mobility protocols for pressure ulcer prophylaxis - Monitor hemodynamics closely - continue other care per attending / other consultants - discharge planning ongoing concurrently COVID SPECIFIC INTERVENTIONS - test result pending .... Re-evaluate in am & prn CONDITION: CRITICAL PROGNOSIS: GUARDED CODE STATUS: FULL CODE The high probability of a clinically significant, sudden or life-threatening deterioration of the [respiratory, cardiovascular, oncological & neurologic] system(s) required my full and direct attention, intervention and personal management. The aggregate critical care time was [32] minutes without overlap. Time includes spent on; [x] Data Review and interpretation [x] Patient assessment and monitoring of vital signs [x] Documentation [x] Medication orders and management Subjective Date of service: 08/18/21 Principal diagnosis: Ac hypoxemic resp failure ; AE-COPD; H/O CA Breast; DM II; HTN Interval history: Patient is seen today for: Acute hypoxemic respiratory failure; AE-COPD; Possible hypercapnia; H/O CA Breast; DM II; HTN Seen and examined at bedside; 24hour events reviewed; nursing and respiratory care staff consulted; no adverse overnight events reported to me; resting in bed; remains on MVS; continues to fail bedside SBT's today within minutes with apnea's and bradycardia to low 30's that corrected with resuming full support; appropriate during SAT's and follow commands Objective Vital Signs - 12hr 08/18/21 08/18/21 08/18/21 01:31 01:45 02:00 Temperature Pulse Rate 79 79 79 Pulse Rate [ Anterior Bilateral] Pulse Rate [ From Monitor] Respiratory 11 L 11 L 12 Rate Respiratory Rate [Anterior Bilateral] Blood Pressure 108/66 108/66 107/69 O2 Sat by Pulse 100 100 99 Oximetry O2 Sat by Pulse Oximetry [ Assessment] 08/18/21 08/18/21 08/18/21 02:15 02:31 02:45 Temperature Pulse Rate 79 79 79 Pulse Rate [ Anterior Bilateral] Pulse Rate [ From Monitor] Respiratory 11 L 11 L 11 L Rate Respiratory Rate [Anterior Bilateral] Blood Pressure 107/69 107/69 107/69 O2 Sat by Pulse 100 100 100 Oximetry O2 Sat by Pulse Oximetry [ Assessment] 08/18/21 08/18/21 08/18/21 03:00 03:15 03:27 Temperature 98 F Pulse Rate 78 78 Pulse Rate [ Anterior Bilateral] Pulse Rate [ From Monitor] Respiratory 10 L 11 L Rate Respiratory Rate [Anterior Bilateral] Blood Pressure 99/63 99/63 O2 Sat by Pulse 100 100 Oximetry O2 Sat by Pulse Oximetry [ Assessment] 08/18/21 08/18/21 08/18/21 03:31 03:45 04:00 Temperature Pulse Rate 76 76 Pulse Rate [ Anterior Bilateral] Pulse Rate [ 89 From Monitor] Respiratory 12 12 Rate Respiratory Rate [Anterior Bilateral] Blood Pressure 99/63 99/63 112/67 O2 Sat by Pulse 100 100 95 Oximetry O2 Sat by Pulse Oximetry [ Assessment] 08/18/21 08/18/21 08/18/21 04:15 04:31 04:38 Temperature Pulse Rate 81 86 92 H Pulse Rate [ Anterior Bilateral] Pulse Rate [ From Monitor] Respiratory 11 L 12 Rate Respiratory Rate [Anterior Bilateral] Blood Pressure 112/67 112/67 112/67 O2 Sat by Pulse 98 100 100 Oximetry O2 Sat by Pulse Oximetry [ Assessment] 08/18/21 08/18/21 08/18/21 04:45 04:59 05:01 Temperature Pulse Rate 91 H 99 H Pulse Rate [ Anterior Bilateral] Pulse Rate [ From Monitor] Respiratory 22 19 Rate Respiratory Rate [Anterior Bilateral] Blood Pressure 112/67 116/74 O2 Sat by Pulse 100 100 Oximetry O2 Sat by Pulse 100 Oximetry [ Assessment] 08/18/21 08/18/21 08/18/21 05:15 05:31 05:45 Temperature Pulse Rate 95 H 91 H 90 Pulse Rate [ Anterior Bilateral] Pulse Rate [ From Monitor] Respiratory 13 13 12 Rate Respiratory Rate [Anterior Bilateral] Blood Pressure 116/74 116/74 116/74 O2 Sat by Pulse 100 100 100 Oximetry O2 Sat by Pulse Oximetry [ Assessment] 08/18/21 08/18/21 08/18/21 06:01 06:15 06:31 Temperature Pulse Rate 89 86 82 Pulse Rate [ Anterior Bilateral] Pulse Rate [ From Monitor] Respiratory 11 L 10 L 11 L Rate Respiratory Rate [Anterior Bilateral] Blood Pressure 119/70 116/74 116/74 O2 Sat by Pulse 99 100 100 Oximetry O2 Sat by Pulse Oximetry [ Assessment] 08/18/21 08/18/21 08/18/21 06:51 07:00 09:14 Temperature 98.1 F Pulse Rate 97 H Pulse Rate [ Anterior Bilateral] Pulse Rate [ From Monitor] Respiratory Rate Respiratory Rate [Anterior Bilateral] Blood Pressure 116/74 146/89 O2 Sat by Pulse 100 99 Oximetry O2 Sat by Pulse Oximetry [ Assessment] 08/18/21 08/18/21 08/18/21 09:45 09:56 10:00 Temperature 98.4 F 98.4 F Pulse Rate 91 H 91 H Pulse Rate [ 87 Anterior Bilateral] Pulse Rate [ From Monitor] Respiratory 12 12 Rate Respiratory 17 Rate [Anterior Bilateral] Blood Pressure 146/89 146/89 O2 Sat by Pulse 100 100 Oximetry O2 Sat by Pulse Oximetry [ Assessment] 08/18/21 08/18/21 08/18/21 10:15 10:30 10:45 Temperature 98.1 F 98.3 F 98 F Pulse Rate 90 88 85 Pulse Rate [ Anterior Bilateral] Pulse Rate [ From Monitor] Respiratory 11 L 12 12 Rate Respiratory Rate [Anterior Bilateral] Blood Pressure 120/73 134/74 113/69 O2 Sat by Pulse 100 100 99 Oximetry O2 Sat by Pulse Oximetry [ Assessment] 08/18/21 08/18/21 08/18/21 11:00 11:30 11:57 Temperature 97.9 F 98.2 F 98.5 F Pulse Rate 82 78 Pulse Rate [ Anterior Bilateral] Pulse Rate [ From Monitor] Respiratory 12 12 Rate Respiratory Rate [Anterior Bilateral] Blood Pressure 107/67 106/62 O2 Sat by Pulse 99 100 Oximetry O2 Sat by Pulse Oximetry [ Assessment] 08/18/21 08/18/21 12:00 13:23 Temperature 98.2 F Pulse Rate 78 Pulse Rate [ Anterior Bilateral] Pulse Rate [ From Monitor] Respiratory 12 Rate Respiratory Rate [Anterior Bilateral] Blood Pressure 112/67 O2 Sat by Pulse 99 100 Oximetry O2 Sat by Pulse Oximetry [ Assessment] Constitutional: appears uncomfortable, other (eldely obese female without increased respiratory effort at rest on MVS) Eyes: non-icteric ENT: oropharynx moist, other (trach Shiley #[id number], cuffed; no bleeding) Neck: supple, no lymphadenopathy, no JVD Effort: mildly labored Ascultation: Bilateral: wheezes (central), rhonchi Percussion: Bilateral: not dull Cardiovascular: regular rate and rhythm, other (S1,S2) Gastrointestinal: normoactive bowel sounds, soft, non-tender, non-distended, other (PEG) Integumentary: normal Extremities: no cyanosis, no edema, pulses normal, no ischemia or petechiae Neurologic: non-focal exam (moves all extremities), pupils equal and round, CN II-XII normal Psychiatric: other (sedated) CBC and BMP: 08/18/21 05:10 08/18/21 05:10 ABG, PT/INR, D-dimer: ABG ABG pH 7.337 pH Units (7.350-7.450) L 08/17/21 21: POC ABG pCO2 52.2 mmHg (32.0-48.0) H 08/17/21 07:27 ABG pCO2 46.6 mm Hg 08/17/21 21:23 POC ABG pO2 80.8 mmHg (83-108) L 08/17/21 07:27 ABG pO2 122.5 mm Hg (80.0-90.0) H 08/17/21 21:23 POC ABG HCO3 24.6 08/17/21 07:27 ABG O2 Saturation 98.2 % (95.0-99.0) 08/17/21 21:23 PT/INR, D-dimer PT 14.5 Sec. (12.2-14.9) 08/12/21 21:41 INR 1.08 (0.87-1.13) 08/12/21 21:41 D-Dimer 852.47 ng/mlDDU (0-234) H 07/29/21 07:17 Abnormal lab findings: Abnormal Labs 07/27/21 07/27/21 07/27/21 22:57 22:57 22:57 WBC 20.3 H RBC Hgb Hct RDW Lymph % (Auto) Lymph # (Auto) [place] # (Auto) Seg Neutrophils % Seg Neuts % (Manual) 89.0 H Lymphocytes % (Manual) 9.0 L Nucleated RBC % Seg Neutrophils # Seg Neutrophils # Man 18.1 H Lymphocytes # (Manual) Monocytes # (Manual) D-Dimer ABG pH POC ABG pCO2 POC ABG pO2 ABG pO2 ABG Hemoglobin ABG Oxyhemoglobin ABG Sodium ABG Potassium ABG Chloride ABG Glucose Carboxyhemoglobin Sodium Potassium 3.5 L Chloride 96.9 L Carbon Dioxide 20 L BUN 19 H Creatinine Glucose 204 H POC Glucose Lactic Acid 7.20 H* Calcium Magnesium AST 98 H ALT 90 H Total Protein Albumin Arterial Blood Glucose Arterial Blood Ionized Calcium Urine WBC (Auto) Urine Creatinine Crossmatch 07/28/21 07/28/21 07/28/21 01:31 07:49 10:00 WBC RBC Hgb Hct RDW Lymph % (Auto) Lymph # (Auto) [place] # (Auto) Seg Neutrophils % Seg Neuts % (Manual) Lymphocytes % (Manual) Nucleated RBC % Seg Neutrophils # Seg Neutrophils # Man Lymphocytes # (Manual) Monocytes # (Manual) D-Dimer ABG pH POC ABG pCO2 POC ABG pO2 ABG pO2 ABG Hemoglobin ABG Oxyhemoglobin ABG Sodium ABG Potassium ABG Chloride ABG Glucose Carboxyhemoglobin Sodium Potassium Chloride Carbon Dioxide BUN Creatinine Glucose POC Glucose 194 H Lactic Acid 6.90 H* 6.70 H* Calcium Magnesium AST ALT Total Protein Albumin Arterial Blood Glucose Arterial Blood Ionized Calcium Urine WBC (Auto) Urine Creatinine Crossmatch 07/28/21 07/28/21 07/28/21 12:41 13:21 16:21 WBC RBC Hgb Hct RDW Lymph % (Auto) Lymph # (Auto) [place] # (Auto) Seg Neutrophils % Seg Neuts % (Manual) Lymphocytes % (Manual) Nucleated RBC % Seg Neutrophils # Seg Neutrophils # Man Lymphocytes # (Manual) Monocytes # (Manual) D-Dimer ABG pH POC ABG pCO2 POC ABG pO2 ABG pO2 ABG Hemoglobin ABG Oxyhemoglobin ABG Sodium ABG Potassium ABG Chloride ABG Glucose Carboxyhemoglobin Sodium Potassium Chloride Carbon Dioxide BUN Creatinine Glucose POC Glucose 159 H 155 H Lactic Acid 6.10 H* Calcium Magnesium AST ALT Total Protein Albumin Arterial Blood Glucose Arterial Blood Ionized Calcium Urine WBC (Auto) Urine Creatinine Crossmatch 07/28/21 07/29/21 07/29/21 22:03 04:44 04:44 WBC 17.0 H RBC Hgb Hct RDW Lymph % (Auto) Lymph # (Auto) [place] # (Auto) Seg Neutrophils % Seg Neuts % (Manual) 82.0 H Lymphocytes % (Manual) 11.0 L Nucleated RBC % Seg Neutrophils # Seg Neutrophils # Man 13.9 H Lymphocytes # (Manual) Monocytes # (Manual) 1.0 H D-Dimer ABG pH POC ABG pCO2 POC ABG pO2 ABG pO2 ABG Hemoglobin ABG Oxyhemoglobin ABG Sodium ABG Potassium ABG Chloride ABG Glucose Carboxyhemoglobin Sodium Potassium Chloride Carbon Dioxide BUN 23 H Creatinine Glucose 196 H POC Glucose 187 H Lactic Acid Calcium Magnesium AST ALT Total Protein Albumin Arterial Blood Glucose Arterial Blood Ionized Calcium Urine WBC (Auto) Urine Creatinine Crossmatch 07/29/21 07/29/21 07/29/21 06:56 07:17 07:17 WBC 26.1 H RBC Hgb Hct 43.3 H RDW 16.0 H Lymph % (Auto) Lymph # (Auto) [place] # (Auto) Seg Neutrophils % Seg Neuts % (Manual) 80.0 H Lymphocytes % (Manual) Nucleated RBC % Seg Neutrophils # Seg Neutrophils # Man 20.9 H Lymphocytes # (Manual) Monocytes # (Manual) D-Dimer ABG pH POC ABG pCO2 POC ABG pO2 ABG pO2 ABG Hemoglobin ABG Oxyhemoglobin ABG Sodium ABG Potassium ABG Chloride ABG Glucose Carboxyhemoglobin Sodium Potassium Chloride Carbon Dioxide 20 L D BUN 23 H Creatinine Glucose 308 H POC Glucose 165 H Lactic Acid Calcium Magnesium AST ALT Total Protein Albumin Arterial Blood Glucose Arterial Blood Ionized Calcium Urine WBC (Auto) Urine Creatinine Crossmatch 07/29/21 07/29/2107/29/21 07:17 09:16 10:30 WBC RBC Hgb Hct RDW Lymph % (Auto) Lymph # (Auto) [place] # (Auto) Seg Neutrophils % Seg Neuts % (Manual) Lymphocytes % (Manual) Nucleated RBC % Seg Neutrophils # Seg Neutrophils # Man Lymphocytes # (Manual) Monocytes # (Manual) D-Dimer 852.47 H ABG pH 7.236 L POC ABG pCO2 56.0 H POC ABG pO2 266.4 H ABG pO2 ABG Hemoglobin ABG Oxyhemoglobin 99.1 H ABG Sodium 132.3 L ABG Potassium 4.9 H ABG Chloride ABG Glucose 202 H Carboxyhemoglobin 0.2 L Sodium Potassium Chloride Carbon Dioxide BUN Creatinine Glucose POC Glucose 271 H Lactic Acid Calcium Magnesium AST ALT Total Protein Albumin Arterial Blood Glucose 202 H Arterial Blood Ionized Calcium Urine WBC (Auto) Urine Creatinine Crossmatch 07/29/21 07/29/21 07/30/21 17:54 23:32 05:08 WBC RBC Hgb Hct RDW Lymph % (Auto) Lymph # (Auto) [place] # (Auto) Seg Neutrophils % Seg Neuts % (Manual) Lymphocytes % (Manual) Nucleated RBC % Seg Neutrophils # Seg Neutrophils # Man Lymphocytes # (Manual) Monocytes # (Manual) D-Dimer ABG pH POC ABG pCO2 POC ABG pO2 ABG pO2 ABG Hemoglobin ABG Oxyhemoglobin ABG Sodium ABG Potassium ABG Chloride ABG Glucose Carboxyhemoglobin Sodium Potassium Chloride Carbon Dioxide BUN Creatinine Glucose POC Glucose 168 H 205 H 214 H Lactic Acid Calcium Magnesium AST ALT Total Protein Albumin Arterial Blood Glucose Arterial Blood Ionized Calcium Urine WBC (Auto) Urine Creatinine Crossmatch 07/30/21 07/30/21 07/30/21 06:01 11:32 17:34 WBC RBC Hgb Hct RDW Lymph % (Auto) Lymph # (Auto) [place] # (Auto) Seg Neutrophils % Seg Neuts % (Manual) Lymphocytes % (Manual) Nucleated RBC % Seg Neutrophils # Seg Neutrophils # Man Lymphocytes # (Manual) Monocytes # (Manual) D-Dimer ABG pH 7.480 H POC ABG pCO2 23.6 L POC ABG pO2 280.0 H ABG pO2 ABG Hemoglobin ABG Oxyhemoglobin 99.3 H ABG Sodium 133.7 L ABG Potassium ABG Chloride ABG Glucose 232 H Carboxyhemoglobin 0 L Sodium Potassium Chloride Carbon Dioxide BUN Creatinine Glucose POC Glucose 207 H 239 H Lactic Acid Calcium Magnesium AST ALT Total Protein Albumin Arterial Blood Glucose 232 H Arterial Blood Ionized Calcium 4.4 L Urine WBC (Auto) Urine Creatinine Crossmatch 07/30/21 07/31/21 07/31/21 23:39 03:34 04:45 WBC 15.0 H RBC Hgb Hct RDW 15.5 H Lymph % (Auto) Lymph # (Auto) [place] # (Auto) Seg Neutrophils % Seg Neuts % (Manual) 89.0 H Lymphocytes % (Manual) 7.0 L Nucleated RBC % Seg Neutrophils # Seg Neutrophils # Man 13.4 H Lymphocytes # (Manual) 1.1 L Monocytes # (Manual) D-Dimer ABG pH 7.481 H POC ABG pCO2 31.8 L POC ABG pO2 ABG pO2 ABG Hemoglobin ABG Oxyhemoglobin ABG Sodium 135.2 L ABG Potassium 3.3 L ABG Chloride ABG Glucose 188 H Carboxyhemoglobin 0.1 L Sodium Potassium Chloride Carbon Dioxide BUN Creatinine Glucose POC Glucose 176 H Lactic Acid Calcium Magnesium AST ALT Total Protein Albumin Arterial Blood Glucose 188 H Arterial Blood Ionized Calcium 4.4 L Urine WBC (Auto) Urine Creatinine Crossmatch 07/31/21 07/31/21 07/31/21 04:45 04:45 11:28 WBC RBC Hgb Hct RDW Lymph % (Auto) Lymph # (Auto) [place] # (Auto) Seg Neutrophils % Seg Neuts % (Manual) Lymphocytes % (Manual) Nucleated RBC % Seg Neutrophils # Seg Neutrophils # Man Lymphocytes # (Manual) Monocytes # (Manual) D-Dimer ABG pH POC ABG pCO2 POC ABG pO2 ABG pO2 ABG Hemoglobin ABG Oxyhemoglobin ABG Sodium ABG Potassium ABG Chloride ABG Glucose Carboxyhemoglobin Sodium Potassium 3.4 L Chloride Carbon Dioxide BUN 61 H Creatinine 2.6 H D Glucose 176 H POC Glucose 195 H 245 H Lactic Acid Calcium Magnesium AST ALT Total Protein Albumin Arterial Blood Glucose Arterial Blood Ionized Calcium Urine WBC (Auto) Urine Creatinine Crossmatch 07/31/21 07/31/21 08/01/21 17:32 23:58 01:00 WBC RBC Hgb Hct RDW Lymph % (Auto) Lymph # (Auto) [place] # (Auto) Seg Neutrophils % Seg Neuts % (Manual) Lymphocytes % (Manual) Nucleated RBC % Seg Neutrophils # Seg Neutrophils # Man Lymphocytes # (Manual) Monocytes # (Manual) D-Dimer ABG pH POC ABG pCO2 POC ABG pO2 ABG pO2 ABG Hemoglobin ABG Oxyhemoglobin ABG Sodium ABG Potassium ABG Chloride ABG Glucose 284 H Carboxyhemoglobin 0.3 L Sodium Potassium Chloride Carbon Dioxide BUN Creatinine Glucose POC Glucose 251 H 294 H Lactic Acid Calcium Magnesium AST ALT Total Protein Albumin Arterial Blood Glucose 284 H Arterial Blood Ionized Calcium Urine WBC (Auto) Urine Creatinine Crossmatch 08/01/21 08/01/21 08/01/21 05:50 05:50 06:11 WBC 16.2 H RBC Hgb Hct RDW 15.5 H Lymph % (Auto) Lymph # (Auto) [place] # (Auto) Seg Neutrophils % Seg Neuts % (Manual) 93.0 H Lymphocytes % (Manual) 2.0 L Nucleated RBC % 3.0 H Seg Neutrophils # Seg Neutrophils # Man 15.1 H Lymphocytes # (Manual) 0.3 L Monocytes # (Manual) D-Dimer ABG pH POC ABG pCO2 POC ABG pO2 ABG pO2 ABG Hemoglobin ABG Oxyhemoglobin ABG Sodium ABG Potassium ABG Chloride ABG Glucose Carboxyhemoglobin Sodium Potassium Chloride Carbon Dioxide BUN 64 H Creatinine 1.9 H Glucose 277 H POC Glucose 256 H Lactic Acid Calcium Magnesium AST ALT Total Protein Albumin Arterial Blood Glucose Arterial Blood Ionized Calcium Urine WBC (Auto) Urine Creatinine Crossmatch 08/01/21 08/01/21 08/01/21 11:39 17:25 23:53 WBC RBC Hgb Hct RDW Lymph % (Auto) Lymph # (Auto) [place] # (Auto) Seg Neutrophils % Seg Neuts % (Manual) Lymphocytes % (Manual) Nucleated RBC % Seg Neutrophils # Seg Neutrophils # Man Lymphocytes # (Manual) Monocytes # (Manual) D-Dimer ABG pH POC ABG pCO2 POC ABG pO2 ABG pO2 ABG Hemoglobin ABG Oxyhemoglobin ABG Sodium ABG Potassium ABG Chloride ABG Glucose Carboxyhemoglobin Sodium Potassium Chloride Carbon Dioxide BUN Creatinine Glucose POC Glucose 289 H 275 H 327 H Lactic Acid Calcium Magnesium AST ALT Total Protein Albumin Arterial Blood Glucose Arterial Blood Ionized Calcium Urine WBC (Auto) Urine Creatinine Crossmatch 08/01/21 08/02/21 08/02/21 Unknown 04:00 12:03 WBC RBC Hgb Hct RDW Lymph % (Auto) Lymph # (Auto) [place] # (Auto) Seg Neutrophils % Seg Neuts % (Manual) Lymphocytes % (Manual) Nucleated RBC % Seg Neutrophils # Seg Neutrophils # Man Lymphocytes # (Manual) Monocytes # (Manual) D-Dimer ABG pH POC ABG pCO2 POC ABG pO2 ABG pO2 ABG Hemoglobin ABG Oxyhemoglobin ABG Sodium ABG Potassium ABG Chloride ABG Glucose 325 H Carboxyhemoglobin 0.4 L Sodium Potassium Chloride Carbon Dioxide BUN Creatinine Glucose POC Glucose 209 H Lactic Acid Calcium Magnesium AST ALT Total Protein Albumin Arterial Blood Glucose 325 H Arterial Blood Ionized Calcium Urine WBC (Auto) Urine Creatinine 125.6 H Crossmatch 08/02/21 08/02/21 08/02/21 15:30 17:03 23:17 WBC RBC Hgb Hct RDW Lymph % (Auto) Lymph # (Auto) [place] # (Auto) Seg Neutrophils % Seg Neuts % (Manual) Lymphocytes % (Manual) Nucleated RBC % Seg Neutrophils # Seg Neutrophils # Man Lymphocytes # (Manual) Monocytes # (Manual) D-Dimer ABG pH POC ABG pCO2 POC ABG pO2 ABG pO2 ABG Hemoglobin ABG Oxyhemoglobin ABG Sodium ABG Potassium ABG Chloride ABG Glucose Carboxyhemoglobin Sodium Potassium Chloride Carbon Dioxide BUN Creatinine Glucose POC Glucose 210 H 265 H Lactic Acid Calcium Magnesium AST ALT Total Protein Albumin Arterial Blood Glucose Arterial Blood Ionized Calcium Urine WBC (Auto) 47.0 H Urine Creatinine Crossmatch 08/02/21 08/02/21 08/03/21 Unknown Unknown 04:17 WBC 14.1 H RBC Hgb Hct RDW 16.3 H Lymph % (Auto) 5.1 L Lymph # (Auto) 0.7 L [place] # (Auto) 0.9 H Seg Neutrophils % 88.7 H Seg Neuts % (Manual) Lymphocytes % (Manual) Nucleated RBC % Seg Neutrophils # 12.5 H Seg Neutrophils # Man Lymphocytes # (Manual) Monocytes # (Manual) D-Dimer ABG pH POC ABG pCO2 POC ABG pO2 ABG pO2 ABG Hemoglobin ABG Oxyhemoglobin ABG Sodium ABG Potassium ABG Chloride ABG Glucose Carboxyhemoglobin Sodium Potassium Chloride Carbon Dioxide BUN 72 H 72 H Creatinine 1.8 H 1.6 H Glucose 307 H 263 H POC Glucose Lactic Acid Calcium Magnesium AST ALT Total Protein Albumin Arterial Blood Glucose Arterial Blood Ionized Calcium Urine WBC (Auto) Urine Creatinine Crossmatch 08/03/21 08/03/21 08/03/21 04:17 05:30 08:30 WBC 13.9 H RBC Hgb Hct RDW 16.0 H Lymph % (Auto) Lymph # (Auto) [place] # (Auto) Seg Neutrophils % Seg Neuts % (Manual) Lymphocytes % (Manual) Nucleated RBC % Seg Neutrophils # Seg Neutrophils # Man Lymphocytes # (Manual) Monocytes # (Manual) D-Dimer ABG pH POC ABG pCO2 POC ABG pO2 ABG pO2 ABG Hemoglobin ABG Oxyhemoglobin ABG Sodium ABG Potassium ABG Chloride ABG Glucose Carboxyhemoglobin Sodium Potassium Chloride Carbon Dioxide BUN Creatinine Glucose POC Glucose 280 H Lactic Acid Calcium Magnesium 3.00 H AST ALT Total Protein Albumin Arterial Blood Glucose Arterial Blood Ionized Calcium Urine WBC (Auto) Urine Creatinine Crossmatch 08/03/21 08/03/21 08/03/21 12:14 13:39 15:11 WBC RBC Hgb Hct RDW Lymph % (Auto) Lymph # (Auto) [place] # (Auto) Seg Neutrophils % Seg Neuts % (Manual) Lymphocytes % (Manual) Nucleated RBC % Seg Neutrophils # Seg Neutrophils # Man Lymphocytes # (Manual) Monocytes # (Manual) D-Dimer ABG pH POC ABG pCO2 POC ABG pO2 ABG pO2 ABG Hemoglobin ABG Oxyhemoglobin ABG Sodium ABG Potassium ABG Chloride ABG Glucose 306 H Carboxyhemoglobin 0.3 L Sodium Potassium Chloride Carbon Dioxide BUN Creatinine Glucose POC Glucose 287 H Lactic Acid 2.10 H* Calcium Magnesium AST ALT Total Protein Albumin Arterial Blood Glucose 306 H Arterial Blood Ionized Calcium Urine WBC (Auto) Urine Creatinine Crossmatch 08/03/21 08/03/21 08/04/21 16:52 23:08 04:00 WBC RBC Hgb Hct RDW Lymph % (Auto) Lymph # (Auto) [place] # (Auto) Seg Neutrophils % Seg Neuts % (Manual) Lymphocytes % (Manual) Nucleated RBC % Seg Neutrophils # Seg Neutrophils # Man Lymphocytes # (Manual) Monocytes # (Manual) D-Dimer ABG pH POC ABG pCO2 54.3 H POC ABG pO2 82.2 L ABG pO2 ABG Hemoglobin ABG Oxyhemoglobin ABG Sodium 145.1 H ABG Potassium 5.0 H ABG Chloride ABG Glucose 316 H Carboxyhemoglobin 0.3 L Sodium Potassium Chloride Carbon Dioxide BUN Creatinine Glucose POC Glucose 282 H 289 H Lactic Acid Calcium Magnesium AST ALT Total Protein Albumin Arterial Blood Glucose 316 H Arterial Blood Ionized Calcium Urine WBC (Auto) Urine Creatinine Crossmatch 08/04/21 08/04/21 08/04/21 04:38 04:38 05:19 WBC 17.7 H RBC Hgb Hct RDW 16.5 H Lymph % (Auto) Lymph # (Auto) [place] # (Auto) Seg Neutrophils % Seg Neuts % (Manual) Lymphocytes % (Manual) Nucleated RBC % Seg Neutrophils # Seg Neutrophils # Man Lymphocytes # (Manual) Monocytes # (Manual) D-Dimer ABG pH POC ABG pCO2 POC ABG pO2 ABG pO2 ABG Hemoglobin ABG Oxyhemoglobin ABG Sodium ABG Potassium ABG Chloride ABG Glucose Carboxyhemoglobin Sodium Potassium Chloride 108.3 H Carbon Dioxide BUN 76 H Creatinine 1.4 H Glucose 310 H POC Glucose 268 H Lactic Acid Calcium Magnesium 2.70 H AST ALT Total Protein Albumin Arterial Blood Glucose Arterial Blood Ionized Calcium Urine WBC (Auto) Urine Creatinine Crossmatch 08/04/21 08/04/21 08/04/21 11:48 16:41 23:49 WBC RBC Hgb Hct RDW Lymph % (Auto) Lymph # (Auto) [place] # (Auto) Seg Neutrophils % Seg Neuts % (Manual) Lymphocytes % (Manual) Nucleated RBC % Seg Neutrophils # Seg Neutrophils # Man Lymphocytes # (Manual) Monocytes # (Manual) D-Dimer ABG pH POC ABG pCO2 POC ABG pO2 ABG pO2 ABG Hemoglobin ABG Oxyhemoglobin ABG Sodium ABG Potassium ABG Chloride ABG Glucose Carboxyhemoglobin Sodium Potassium Chloride Carbon Dioxide BUN Creatinine Glucose POC Glucose 197 H 208 H 209 H Lactic Acid Calcium Magnesium AST ALT Total Protein Albumin Arterial Blood Glucose Arterial Blood Ionized Calcium Urine WBC (Auto) Urine Creatinine Crossmatch 08/05/21 08/05/21 08/05/21 04:00 04:50 04:50 WBC 19.0 H RBC Hgb Hct RDW 17.0 H Lymph % (Auto) Lymph # (Auto) [place] # (Auto) Seg Neutrophils % Seg Neuts % (Manual) 75.0 H Lymphocytes % (Manual) 2.0 L Nucleated RBC % Seg Neutrophils # Seg Neutrophils # Man 14.3 H Lymphocytes # (Manual) 0.4 L Monocytes # (Manual) 1.0 H D-Dimer ABG pH 7.314 L POC ABG pCO2 48.9 H POC ABG pO2 ABG pO2 ABG Hemoglobin ABG Oxyhemoglobin ABG Sodium ABG Potassium 5.0 H ABG Chloride 109.0 H ABG Glucose 234 H Carboxyhemoglobin 0.4 L Sodium Potassium 5.2 H Chloride 110.0 H Carbon Dioxide BUN 90 H Creatinine 1.8 H Glucose 235 H POC Glucose Lactic Acid Calcium Magnesium 2.60 H AST ALT Total Protein Albumin Arterial Blood Glucose 234 H Arterial Blood Ionized Calcium Urine WBC (Auto) Urine Creatinine Crossmatch 08/05/21 08/05/21 08/05/21 06:05 12:02 17:08 WBC RBC Hgb Hct RDW Lymph % (Auto) Lymph # (Auto) [place] # (Auto) Seg Neutrophils % Seg Neuts % (Manual) Lymphocytes % (Manual) Nucleated RBC % Seg Neutrophils # Seg Neutrophils # Man Lymphocytes # (Manual) Monocytes # (Manual) D-Dimer ABG pH POC ABG pCO2 POC ABG pO2 ABG pO2 ABG Hemoglobin ABG Oxyhemoglobin ABG Sodium ABG Potassium ABG Chloride ABG Glucose Carboxyhemoglobin Sodium Potassium Chloride Carbon Dioxide BUN Creatinine Glucose POC Glucose 225 H 193 H 263 H Lactic Acid Calcium Magnesium AST ALT Total Protein Albumin Arterial Blood Glucose Arterial Blood Ionized Calcium Urine WBC (Auto) Urine Creatinine Crossmatch 08/05/21 08/06/21 08/06/21 23:34 05:00 05:00 WBC 16.8 H RBC 3.64 L Hgb Hct RDW 16.6 H Lymph % (Auto) Lymph # (Auto) [place] # (Auto) Seg Neutrophils % Seg Neuts % (Manual) Lymphocytes % (Manual) Nucleated RBC % Seg Neutrophils # Seg Neutrophils # Man Lymphocytes # (Manual) Monocytes # (Manual) D-Dimer ABG pH POC ABG pCO2 POC ABG pO2 ABG pO2 ABG Hemoglobin ABG Oxyhemoglobin ABG Sodium ABG Potassium ABG Chloride ABG Glucose Carboxyhemoglobin Sodium Potassium Chloride 109.3 H Carbon Dioxide BUN 89 H Creatinine 1.6 H Glucose 197 H POC Glucose 224 H Lactic Acid Calcium 8.2 L Magnesium AST ALT Total Protein Albumin Arterial Blood Glucose Arterial Blood Ionized Calcium Urine WBC (Auto) Urine Creatinine Crossmatch 08/06/21 08/06/21 08/06/21 05:26 11:38 16:30 WBC RBC Hgb Hct RDW Lymph % (Auto) Lymph # (Auto) [place] # (Auto) Seg Neutrophils % Seg Neuts % (Manual) Lymphocytes % (Manual) Nucleated RBC % Seg Neutrophils # Seg Neutrophils # Man Lymphocytes # (Manual) Monocytes # (Manual) D-Dimer ABG pH POC ABG pCO2 POC ABG pO2 ABG pO2 ABG Hemoglobin ABG Oxyhemoglobin ABG Sodium ABG Potassium ABG Chloride ABG Glucose Carboxyhemoglobin Sodium Potassium Chloride Carbon Dioxide BUN Creatinine Glucose POC Glucose 168 H 160 H 135 H Lactic Acid Calcium Magnesium AST ALT Total Protein Albumin Arterial Blood Glucose Arterial Blood Ionized Calcium Urine WBC (Auto) Urine Creatinine Crossmatch 08/06/21 08/07/21 08/07/21 23:08 04:00 04:00 WBC 13.6 H RBC 3.30 L Hgb 9.5 L Hct 29.2 L RDW 16.7 H Lymph % (Auto) Lymph # (Auto) [place] # (Auto) Seg Neutrophils % Seg Neuts % (Manual) Lymphocytes % (Manual) Nucleated RBC % Seg Neutrophils # Seg Neutrophils # Man Lymphocytes # (Manual) Monocytes # (Manual) D-Dimer ABG pH POC ABG pCO2 POC ABG pO2 ABG pO2 ABG Hemoglobin ABG Oxyhemoglobin ABG Sodium ABG Potassium ABG Chloride ABG Glucose Carboxyhemoglobin Sodium 146 H Potassium Chloride 111.4 H Carbon Dioxide BUN 78 H Creatinine 1.5 H Glucose 143 H POC Glucose 125 H Lactic Acid Calcium 8.2 L Magnesium AST ALT Total Protein Albumin Arterial Blood Glucose Arterial Blood Ionized Calcium Urine WBC (Auto) Urine Creatinine Crossmatch 08/07/21 08/07/21 08/07/21 04:00 05:16 12:12 WBC RBC Hgb Hct RDW Lymph % (Auto) Lymph # (Auto) [place] # (Auto) Seg Neutrophils % Seg Neuts % (Manual) Lymphocytes % (Manual) Nucleated RBC % Seg Neutrophils # Seg Neutrophils # Man Lymphocytes # (Manual) Monocytes # (Manual) D-Dimer ABG pH POC ABG pCO2 POC ABG pO2 80.1 L ABG pO2 ABG Hemoglobin 9.8 L ABG Oxyhemoglobin ABG Sodium ABG Potassium ABG Chloride 111.0 H ABG Glucose 157 H Carboxyhemoglobin 0.3 L Sodium Potassium Chloride Carbon Dioxide BUN Creatinine Glucose POC Glucose 144 H 125 H Lactic Acid Calcium Magnesium AST ALT Total Protein Albumin Arterial Blood Glucose 157 H Arterial Blood Ionized Calcium 4.5 L Urine WBC (Auto) Urine Creatinine Crossmatch 08/07/21 08/08/21 08/08/21 23:20 04:47 06:00 WBC 13.8 H RBC 3.19 L Hgb 9.3 L Hct 28.4 L RDW 16.4 H Lymph % (Auto) Lymph # (Auto) [place] # (Auto) Seg Neutrophils % Seg Neuts % (Manual) Lymphocytes % (Manual) Nucleated RBC % Seg Neutrophils # Seg Neutrophils # Man Lymphocytes # (Manual) Monocytes # (Manual) D-Dimer ABG pH POC ABG pCO2 POC ABG pO2 ABG pO2 ABG Hemoglobin ABG Oxyhemoglobin ABG Sodium ABG Potassium ABG Chloride ABG Glucose Carboxyhemoglobin Sodium Potassium Chloride Carbon Dioxide BUN Creatinine Glucose POC Glucose 118 H 130 H Lactic Acid Calcium Magnesium AST ALT Total Protein Albumin Arterial Blood Glucose Arterial Blood Ionized Calcium Urine WBC (Auto) Urine Creatinine Crossmatch 08/08/21 08/08/21 08/08/21 06:00 11:33 17:54 WBC RBC Hgb Hct RDW Lymph % (Auto) Lymph # (Auto) [place] # (Auto) Seg Neutrophils % Seg Neuts % (Manual) Lymphocytes % (Manual) Nucleated RBC % Seg Neutrophils # Seg Neutrophils # Man Lymphocytes # (Manual) Monocytes # (Manual) D-Dimer ABG pH POC ABG pCO2 POC ABG pO2 ABG pO2 ABG Hemoglobin ABG Oxyhemoglobin ABG Sodium ABG Potassium ABG Chloride ABG Glucose Carboxyhemoglobin Sodium 147 H Potassium Chloride 112.4 H Carbon Dioxide BUN 71 H Creatinine 1.4 H Glucose 124 H POC Glucose 126 H 124 H Lactic Acid Calcium Magnesium AST ALT Total Protein Albumin Arterial Blood Glucose Arterial Blood Ionized Calcium Urine WBC (Auto) Urine Creatinine Crossmatch 08/08/21 08/09/21 08/09/21 23:41 06:06 10:00 WBC RBC Hgb Hct RDW Lymph % (Auto) Lymph # (Auto) [place] # (Auto) Seg Neutrophils % Seg Neuts % (Manual) Lymphocytes % (Manual) Nucleated RBC % Seg Neutrophils # Seg Neutrophils # Man Lymphocytes # (Manual) Monocytes # (Manual) D-Dimer ABG pH POC ABG pCO2 POC ABG pO2 ABG pO2 ABG Hemoglobin ABG Oxyhemoglobin ABG Sodium ABG Potassium ABG Chloride ABG Glucose Carboxyhemoglobin Sodium 146 H Potassium Chloride 111.3 H Carbon Dioxide BUN 72 H Creatinine 1.5 H Glucose 119 H POC Glucose 119 H 127 H Lactic Acid Calcium Magnesium AST ALT 69 H Total Protein 5.2 L Albumin 2.6 L Arterial Blood Glucose Arterial Blood Ionized Calcium Urine WBC (Auto) Urine Creatinine Crossmatch 08/09/21 08/09/21 08/09/21 10:00 11:34 16:50 WBC 13.0 H RBC 2.88 L Hgb 8.5 L Hct 25.8 L RDW 16.5 H Lymph % (Auto) Lymph # (Auto) [place] # (Auto) Seg Neutrophils % Seg Neuts % (Manual) Lymphocytes % (Manual) Nucleated RBC % Seg Neutrophils # Seg Neutrophils # Man Lymphocytes # (Manual) Monocytes # (Manual) D-Dimer ABG pH POC ABG pCO2 POC ABG pO2 ABG pO2 ABG Hemoglobin ABG Oxyhemoglobin ABG Sodium ABG Potassium ABG Chloride ABG Glucose Carboxyhemoglobin Sodium Potassium Chloride Carbon Dioxide BUN Creatinine Glucose POC Glucose 114 H 117 H Lactic Acid Calcium Magnesium AST ALT Total Protein Albumin Arterial Blood Glucose Arterial Blood Ionized Calcium Urine WBC (Auto) Urine Creatinine Crossmatch 08/10/21 08/10/21 08/10/21 00:12 05:20 05:20 WBC 13.2 H RBC 2.92 L Hgb 8.4 L Hct 25.9 L RDW 16.7 H Lymph % (Auto) Lymph # (Auto) [place] # (Auto) Seg Neutrophils % Seg Neuts % (Manual) Lymphocytes % (Manual) Nucleated RBC % Seg Neutrophils # Seg Neutrophils # Man Lymphocytes # (Manual) Monocytes # (Manual) D-Dimer ABG pH POC ABG pCO2 POC ABG pO2 ABG pO2 ABG Hemoglobin ABG Oxyhemoglobin ABG Sodium ABG Potassium ABG Chloride ABG Glucose Carboxyhemoglobin Sodium 147 H Potassium Chloride 111.8 H Carbon Dioxide BUN 68 H Creatinine 1.4 H Glucose POC Glucose 114 H Lactic Acid Calcium Magnesium AST ALT Total Protein Albumin Arterial Blood Glucose Arterial Blood Ionized Calcium Urine WBC (Auto) Urine Creatinine Crossmatch 08/10/21 08/10/21 08/11/21 17:52 18:23 02:51 WBC RBC Hgb Hct RDW Lymph % (Auto) Lymph # (Auto) [place] # (Auto) Seg Neutrophils % Seg Neuts % (Manual) Lymphocytes % (Manual) Nucleated RBC % Seg Neutrophils # Seg Neutrophils # Man Lymphocytes # (Manual) Monocytes # (Manual) D-Dimer ABG pH POC ABG pCO2 POC ABG pO2 ABG pO2 ABG Hemoglobin 8.7 L ABG Oxyhemoglobin ABG Sodium ABG Potassium ABG Chloride 111.0 H ABG Glucose Carboxyhemoglobin 0.2 L Sodium Potassium Chloride Carbon Dioxide BUN Creatinine Glucose POC Glucose 55 L 133 H Lactic Acid Calcium Magnesium AST ALT Total Protein Albumin Arterial Blood Glucose Arterial Blood Ionized Calcium 4.5 L Urine WBC (Auto) Urine Creatinine Crossmatch 08/11/21 08/11/21 08/11/21 04:30 11:36 17:11 WBC RBC Hgb Hct RDW Lymph % (Auto) Lymph # (Auto) [place] # (Auto) Seg Neutrophils % Seg Neuts % (Manual) Lymphocytes % (Manual) Nucleated RBC % Seg Neutrophils # Seg Neutrophils # Man Lymphocytes # (Manual) Monocytes # (Manual) D-Dimer ABG pH POC ABG pCO2 POC ABG pO2 ABG pO2 ABG Hemoglobin ABG Oxyhemoglobin ABG Sodium ABG Potassium ABG Chloride ABG Glucose Carboxyhemoglobin Sodium Potassium Chloride 110.0 H Carbon Dioxide BUN 59 H Creatinine Glucose POC Glucose 116 H 115 H Lactic Acid Calcium 8.3 L Magnesium AST ALT 64 H Total Protein 5.5 L Albumin 2.6 L Arterial Blood Glucose Arterial Blood Ionized Calcium Urine WBC (Auto) Urine Creatinine Crossmatch 08/11/21 08/11/21 08/12/21 23:18 Unknown 05:05 WBC 12.2 H RBC 2.81 L Hgb 8.4 L Hct 25.4 L RDW 17.0 H Lymph % (Auto) Lymph # (Auto) [place] # (Auto) Seg Neutrophils % Seg Neuts % (Manual) Lymphocytes % (Manual) Nucleated RBC % Seg Neutrophils # Seg Neutrophils # Man Lymphocytes # (Manual) Monocytes # (Manual) D-Dimer ABG pH POC ABG pCO2 POC ABG pO2 ABG pO2 ABG Hemoglobin ABG Oxyhemoglobin ABG Sodium ABG Potassium ABG Chloride ABG Glucose Carboxyhemoglobin Sodium Potassium Chloride Carbon Dioxide BUN Creatinine Glucose POC Glucose 126 H 131 H Lactic Acid Calcium Magnesium AST ALT Total Protein Albumin Arterial Blood Glucose Arterial Blood Ionized Calcium Urine WBC (Auto) Urine Creatinine Crossmatch 08/12/21 08/12/21 08/12/21 12:14 17:19 21:41 WBC 16.5 H RBC 3.04 L Hgb 8.9 L Hct 27.3 L RDW 17.0 H Lymph % (Auto) 9.0 L Lymph # (Auto) [place] # (Auto) 1.1 H Seg Neutrophils % 83.7 H Seg Neuts % (Manual) Lymphocytes % (Manual) Nucleated RBC % Seg Neutrophils # 13.8 H Seg Neutrophils # Man Lymphocytes # (Manual) Monocytes # (Manual) D-Dimer ABG pH POC ABG pCO2 POC ABG pO2 ABG pO2 ABG Hemoglobin ABG Oxyhemoglobin ABG Sodium ABG Potassium ABG Chloride ABG Glucose Carboxyhemoglobin Sodium Potassium Chloride Carbon Dioxide BUN Creatinine Glucose POC Glucose 123 H 129 H Lactic Acid Calcium Magnesium AST ALT Total Protein Albumin Arterial Blood Glucose Arterial Blood Ionized Calcium Urine WBC (Auto) Urine Creatinine Crossmatch 08/12/21 08/12/21 08/13/21 21:41 23:26 05:24 WBC RBC Hgb Hct RDW Lymph % (Auto) Lymph # (Auto) [place] # (Auto) Seg Neutrophils % Seg Neuts % (Manual) Lymphocytes % (Manual) Nucleated RBC % Seg Neutrophils # Seg Neutrophils # Man Lymphocytes # (Manual) Monocytes # (Manual) D-Dimer ABG pH POC ABG pCO2 POC ABG pO2 ABG pO2 ABG Hemoglobin ABG Oxyhemoglobin ABG Sodium ABG Potassium ABG Chloride ABG Glucose Carboxyhemoglobin Sodium 147 H Potassium Chloride 110.7 H Carbon Dioxide BUN 48 H Creatinine Glucose 147 H POC Glucose 133 H 109 H Lactic Acid Calcium Magnesium AST ALT Total Protein Albumin Arterial Blood Glucose Arterial Blood Ionized Calcium Urine WBC (Auto) Urine Creatinine Crossmatch 08/13/21 08/13/21 08/13/21 05:43 11:36 18:00 WBC RBC Hgb Hct RDW Lymph % (Auto) Lymph # (Auto) [place] # (Auto) Seg Neutrophils % Seg Neuts % (Manual) Lymphocytes % (Manual) Nucleated RBC % Seg Neutrophils # Seg Neutrophils # Man Lymphocytes # (Manual) Monocytes # (Manual) D-Dimer ABG pH POC ABG pCO2 POC ABG pO2 76.8 L ABG pO2 ABG Hemoglobin 8.6 L ABG Oxyhemoglobin ABG Sodium ABG Potassium ABG Chloride 112.0 H ABG Glucose 126 H Carboxyhemoglobin 0.4 L Sodium Potassium Chloride Carbon Dioxide BUN Creatinine Glucose POC Glucose 127 H 128 H Lactic Acid Calcium Magnesium AST ALT Total Protein Albumin Arterial Blood Glucose 126 H Arterial Blood Ionized Calcium 4.4 L Urine WBC (Auto) Urine Creatinine Crossmatch 08/13/21 08/14/21 08/14/21 23:27 04:00 04:00 WBC RBC 2.65 L Hgb 8.1 L Hct 24.0 L RDW 17.1 H Lymph % (Auto) Lymph # (Auto) [place] # (Auto) Seg Neutrophils % Seg Neuts % (Manual) Lymphocytes % (Manual) Nucleated RBC % Seg Neutrophils # Seg Neutrophils # Man Lymphocytes # (Manual) Monocytes # (Manual) D-Dimer ABG pH POC ABG pCO2 POC ABG pO2 ABG pO2 ABG Hemoglobin ABG Oxyhemoglobin ABG Sodium ABG Potassium ABG Chloride ABG Glucose Carboxyhemoglobin Sodium 146 H Potassium Chloride 108.7 H Carbon Dioxide 31 H BUN 38 H Creatinine Glucose 115 H POC Glucose 125 H Lactic Acid Calcium Magnesium AST ALT Total Protein 5.8 L Albumin 2.6 L Arterial Blood Glucose Arterial Blood Ionized Calcium Urine WBC (Auto) Urine Creatinine Crossmatch 08/14/21 08/14/21 08/15/21 05:24 11:34 05:16 WBC RBC Hgb Hct RDW Lymph % (Auto) Lymph # (Auto) [place] # (Auto) Seg Neutrophils % Seg Neuts % (Manual) Lymphocytes % (Manual) Nucleated RBC % Seg Neutrophils # Seg Neutrophils # Man Lymphocytes # (Manual) Monocytes # (Manual) D-Dimer ABG pH POC ABG pCO2 POC ABG pO2 ABG pO2 ABG Hemoglobin ABG Oxyhemoglobin ABG Sodium ABG Potassium ABG Chloride ABG Glucose Carboxyhemoglobin Sodium Potassium Chloride Carbon Dioxide BUN Creatinine Glucose POC Glucose 126 H 126 H 110 H Lactic Acid Calcium Magnesium AST ALT Total Protein Albumin Arterial Blood Glucose Arterial Blood Ionized Calcium Urine WBC (Auto) Urine Creatinine Crossmatch 08/15/21 08/15/21 08/15/21 11:37 17:48 Unknown WBC RBC 2.53 L Hgb 7.7 L Hct 23.0 L RDW 17.0 H Lymph % (Auto) 12.5 L Lymph # (Auto) 1.0 L [place] # (Auto) Seg Neutrophils % 80.4 H Seg Neuts % (Manual) Lymphocytes % (Manual) Nucleated RBC % Seg Neutrophils # Seg Neutrophils # Man Lymphocytes # (Manual) Monocytes # (Manual) D-Dimer ABG pH POC ABG pCO2 POC ABG pO2 ABG pO2 ABG Hemoglobin ABG Oxyhemoglobin ABG Sodium ABG Potassium ABG Chloride ABG Glucose Carboxyhemoglobin Sodium Potassium Chloride Carbon Dioxide BUN Creatinine Glucose POC Glucose 106 H 110 H Lactic Acid Calcium Magnesium AST ALT Total Protein Albumin Arterial Blood Glucose Arterial Blood Ionized Calcium Urine WBC (Auto) Urine Creatinine Crossmatch 08/15/21 08/16/21 08/16/21 Unknown 05:40 12:00 WBC RBC Hgb Hct RDW Lymph % (Auto) Lymph # (Auto) [place] # (Auto) Seg Neutrophils % Seg Neuts % (Manual) Lymphocytes % (Manual) Nucleated RBC % Seg Neutrophils # Seg Neutrophils # Man Lymphocytes # (Manual) Monocytes # (Manual) D-Dimer ABG pH POC ABG pCO2 POC ABG pO2 ABG pO2 ABG Hemoglobin ABG Oxyhemoglobin ABG Sodium ABG Potassium ABG Chloride ABG Glucose Carboxyhemoglobin Sodium Potassium Chloride 107.2 H Carbon Dioxide BUN 36 H Creatinine Glucose 109 H POC Glucose 111 H 114 H Lactic Acid Calcium Magnesium AST ALT 63 H Total Protein 5.5 L Albumin 2.4 L Arterial Blood Glucose Arterial Blood Ionized Calcium Urine WBC (Auto) Urine Creatinine Crossmatch 08/16/21 08/16/21 08/16/21 12:36 12:36 17:08 WBC RBC 2.54 L Hgb 7.3 L Hct 22.8 L RDW 17.1 H Lymph % (Auto) Lymph # (Auto) [place] # (Auto) Seg Neutrophils % Seg Neuts % (Manual) Lymphocytes % (Manual) Nucleated RBC % Seg Neutrophils # Seg Neutrophils # Man Lymphocytes # (Manual) Monocytes # (Manual) D-Dimer ABG pH POC ABG pCO2 POC ABG pO2 ABG pO2 ABG Hemoglobin ABG Oxyhemoglobin ABG Sodium ABG Potassium ABG Chloride ABG Glucose Carboxyhemoglobin Sodium Potassium Chloride Carbon Dioxide BUN 39 H Creatinine Glucose 123 H POC Glucose 112 H Lactic Acid Calcium Magnesium AST ALT Total Protein Albumin Arterial Blood Glucose Arterial Blood Ionized Calcium Urine WBC (Auto) Urine Creatinine Crossmatch 08/17/21 08/17/21 08/17/21 05:26 07:27 11:19 WBC RBC Hgb Hct RDW Lymph % (Auto) Lymph # (Auto) [place] # (Auto) Seg Neutrophils % Seg Neuts % (Manual) Lymphocytes % (Manual) Nucleated RBC % Seg Neutrophils # Seg Neutrophils # Man Lymphocytes # (Manual) Monocytes # (Manual) D-Dimer ABG pH 7.292 L POC ABG pCO2 52.2 H POC ABG pO2 80.8 L ABG pO2 ABG Hemoglobin 9.2 L ABG Oxyhemoglobin 93.8 L ABG Sodium 135.3 L ABG Potassium ABG Chloride ABG Glucose 135 H Carboxyhemoglobin 0.2 L Sodium Potassium Chloride Carbon Dioxide BUN Creatinine Glucose POC Glucose 121 H 137 H Lactic Acid Calcium Magnesium AST ALT Total Protein Albumin Arterial Blood Glucose 135 H Arterial Blood Ionized Calcium Urine WBC (Auto) Urine Creatinine Crossmatch 08/17/21 08/17/21 08/17/21 17:20 21:23 Unknown WBC RBC 2.49 L Hgb 7.5 L Hct 22.2 L RDW 16.5 H Lymph % (Auto) Lymph # (Auto) [place] # (Auto) Seg Neutrophils % Seg Neuts % (Manual) Lymphocytes % (Manual) Nucleated RBC % Seg Neutrophils # Seg Neutrophils # Man Lymphocytes # (Manual) Monocytes # (Manual) D-Dimer ABG pH 7.337 L POC ABG pCO2 POC ABG pO2 ABG pO2 122.5 H ABG Hemoglobin 7.6 L ABG Oxyhemoglobin ABG Sodium ABG Potassium ABG Chloride ABG Glucose Carboxyhemoglobin Sodium Potassium Chloride Carbon Dioxide BUN Creatinine Glucose POC Glucose 106 H Lactic Acid Calcium Magnesium AST ALT Total Protein Albumin Arterial Blood Glucose Arterial Blood Ionized Calcium Urine WBC (Auto) Urine Creatinine Crossmatch 08/17/21 08/18/21 08/18/21 Unknown 00:04 05:10 WBC RBC 2.65 L Hgb 7.9 L Hct 23.7 L RDW 17.0 H Lymph % (Auto) Lymph # (Auto) [place] # (Auto) Seg Neutrophils % Seg Neuts % (Manual) Lymphocytes % (Manual) Nucleated RBC % Seg Neutrophils # Seg Neutrophils # Man Lymphocytes # (Manual) Monocytes # (Manual) D-Dimer ABG pH POC ABG pCO2 POC ABG pO2 ABG pO2 ABG Hemoglobin ABG Oxyhemoglobin ABG Sodium ABG Potassium ABG Chloride ABG Glucose Carboxyhemoglobin Sodium Potassium Chloride Carbon Dioxide BUN 37 H Creatinine Glucose 117 H POC Glucose 107 H Lactic Acid Calcium Magnesium AST ALT Total Protein Albumin Arterial Blood Glucose Arterial Blood Ionized Calcium Urine WBC (Auto) Urine Creatinine Crossmatch 08/18/21 08/18/21 08/18/21 05:10 05:10 05:40 WBC RBC Hgb Hct RDW Lymph % (Auto) Lymph # (Auto) [place] # (Auto) Seg Neutrophils % Seg Neuts % (Manual) Lymphocytes % (Manual) Nucleated RBC % Seg Neutrophils # Seg Neutrophils # Man Lymphocytes # (Manual) Monocytes # (Manual) D-Dimer ABG pH POC ABG pCO2 POC ABG pO2 ABG pO2 ABG Hemoglobin ABG Oxyhemoglobin ABG Sodium ABG Potassium ABG Chloride ABG Glucose Carboxyhemoglobin Sodium 136 L Potassium Chloride Carbon Dioxide BUN 41 H Creatinine Glucose 122 H POC Glucose 122 H Lactic Acid Calcium Magnesium AST ALT Total Protein Albumin Arterial Blood Glucose Arterial Blood Ionized Calcium Urine WBC (Auto) Urine Creatinine Crossmatch See Detail 08/18/21 11:47 WBC RBC Hgb Hct RDW Lymph % (Auto) Lymph # (Auto) [place] # (Auto) Seg Neutrophils % Seg Neuts % (Manual) Lymphocytes % (Manual) Nucleated RBC % Seg Neutrophils # Seg Neutrophils # Man Lymphocytes # (Manual) Monocytes # (Manual) D-Dimer ABG pH POC ABG pCO2 POC ABG pO2 ABG pO2 ABG Hemoglobin ABG Oxyhemoglobin ABG Sodium ABG Potassium ABG Chloride ABG Glucose Carboxyhemoglobin Sodium Potassium Chloride Carbon Dioxide BUN Creatinine Glucose POC Glucose 126 H Lactic Acid Calcium Magnesium AST ALT Total Protein Albumin Arterial Blood Glucose Arterial Blood Ionized Calcium Urine WBC (Auto) Urine Creatinine Crossmatch Chest x-ray: image reviewed ([email or web address] RUL [email or web address]) Allied health notes reviewed: nursing
[2021-08-18] MEDS ORDERED: oxyCODONE 5 MG TAB PO PRN (15:45)
[2021-08-19] MEDS: FREE WATER PO SCH ×4 (01:10→17:18)
[2021-08-19] MEDS: INSULIN LISPRO 100 UNIT/ML SUB-Q SCH ×4 (01:11→17:47)
--- NOTE | 2021-08-19 02:38 | Hem/Onc Progress Note ---
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 Wade RBC transfusion today low dose lovenox 40mg daily end of life discussion is appropriate--I talked to Femi her Laboratory Last Values WBC 6.2 K/mm3 (4.5-11.0) 08/18/21 05:10 Hgb 7.9 gm/dl (10.1-14.3) L 08/18/21 05:10 Hct 23.7 % (30.3-42.9) L 08/18/21 05:10 Plt Count 286 K/mm3 (140-440) 08/18/21 05:10 PT 14.5 Sec. (12.2-14.9) 08/12/21 21:41 INR 1.08 (0.87-1.13) 08/12/21 21:41 APTT 29.9 Sec. (24.2-36.6) 08/10/21 05:20 Objective - Constitutional Vitals: Last Vital Signs Temp 97.5 F L 08/19/21 00:00 Pulse 77 08/19/21 02:15 Resp 11 L 08/19/21 02:15 BP 111/66 08/19/21 02:15 Pulse Ox 99 08/19/21 02:15 - Labs Lab Results: Laboratory Results - last 24 hr 08/18/21 08/18/21 08/18/21 05:10 05:10 05:10 WBC 6.2 RBC 2.65 L Hgb 7.9 L Hct 23.7 L MCV 90 MCH 30 MCHC 33 RDW 17.0 H Plt Count 286 Sodium 136 L Potassium 4.3 Chloride 99.7 Carbon Dioxide 24 Anion Gap 17 BUN 41 H Creatinine 0.7 Estimated GFR > 60 BUN/Creatinine Ratio 59 Glucose 122 H POC Glucose Calcium 8.9 Blood Type A POSITIVE Antibody Screen Negative Crossmatch See Detail 08/18/21 08/18/21 08/18/21 05:40 11:47 18:21 WBC RBC Hgb Hct MCV MCH MCHC RDW Plt Count Sodium Potassium Chloride Carbon Dioxide Anion Gap BUN Creatinine Estimated GFR BUN/Creatinine Ratio Glucose POC Glucose 122 H 126 H 110 H Calcium Blood Type Antibody Screen Crossmatch 08/18/21 23:53 WBC RBC Hgb Hct MCV MCH MCHC RDW Plt Count Sodium Potassium Chloride Carbon Dioxide Anion Gap BUN Creatinine Estimated GFR BUN/Creatinine Ratio Glucose POC Glucose 114 H Calcium Blood Type Antibody Screen Crossmatch Medications & Allergies - Medications Allergies/Adverse Reactions: Allergies No Known Allergies Allergy (Verified 12/24/18 11:45) Home Medications: Home Medications Medication Instructions Recorded Confirmed Last Taken Type traMADoL [Ultram 50 MG tab] 50 mg PO Q6HR PRN #15 tablet 01/25/18 Unknown Rx Active Medications: Generic Name Dose Route Start Last Admin Trade Name Freq PRN Reason Stop Dose Admin Acetaminophen 650 mg 07/28/21 02:11 08/18/21 22:02 Acetaminophen 325 Mg Tab PO 650 mg Q6H PRN Administration Pain MILD(1-3)/Fever >100.5/GARCIA Albuterol/Ipratropium 1 ampul 07/28/21 14:00 08/18/21 20:56 Ipratropium/Albuterol Sulfate 3 Ml Ampul.Neb IH 1 ampul TID DEMIAN Administration Lipase/Protease/Amylase 1 each 07/29/21 13:01 Lipase 10,500/Protease 25,000/Amylase 43,750 (Units) Dr Campoverde FEEDTUBE PRN PRN For Clogged Feeding Tube Arformoterol Tartrate 15 mcg 07/28/21 20:00 08/18/21 20:56 Arformoterol 15 Mcg/2 Ml Nebu IH 15 mcg Q12HRT DEMIAN Administration Bisacodyl 10 mg 08/07/21 09:50 08/16/21 18:32 Bisacodyl 10 Mg Rect Supp DE 10 mg QDAY PRN Administration Constip unreliev by MOM/or NPO Budesonide 0.5 mg 07/28/21 20:00 08/18/21 20:56 Budesonide 0.5 Mg/2 Ml Nebu IH 0.5 mg Q12HRT DEMIAN Administration Dextrose 50 ml 07/28/21 02:11 08/10/21 18:05 Dextrose 50% In Water (25gm) 50 Ml Syringe IV 20 ml Q30MIN PRN Administration Hypoglycemia Protocol Enoxaparin Sodium 40 mg 08/19/21 10:00 Enoxaparin 40 Mg/0.4 Ml Inj SUB-Q QDAY DEMIAN Protocol Famotidine 20 mg 08/15/21 10:00 08/18/21 21:58 Famotidine 20 Mg Tab FEEDTUBE 20 mg BID DEMIAN Administration Fentanyl 50 mcg 07/29/21 10:42 08/04/21 09:05 Fentanyl 100 Mcg/2 Ml Inj IV 50 mcg Q10MIN PRN Administration ANALGESIA Hydralazine HCl 10 mg 07/30/21 14:52 08/03/21 17:31 Hydralazine 20 Mg/1 Ml Inj IV 10 mg Q6H PRN Administration SBP > 165 Hydrophilic Ointment 1 applic 07/29/21 10:42 Lip Therapy Vaseline TP Q2HR PRN Dry Lips Fentanyl Citrate 2,000 mcg in 100 mls @ 5.35 mls/hr 07/29/21 11:00 08/18/21 18:35 Fentanyl Drip Premix IV 4 mcg/kg/hr TITR DEMIAN 21.4 mls/hr Administration Protocol 1 MCG/KG/HR Norepinephrine 4 mg in 250 mls @ 7.5 mls/hr 07/29/21 21:00 Levophed Drip 4 Mg/Ns 250 Ml IV TITR DEMIAN Protocol 2 MCG/MIN Propofol 1,000 mg in 100 mls @ 3.21 mls/hr 08/17/21 16:00 08/18/21 19:23 Diprivan 10 Mg/Ml IV 15 mcg/kg/min TITR DEMIAN 9.63 mls/hr Titration Protocol 5 MCG/KG/MIN Insulin Human Lispro 0 unit 07/29/21 12:00 08/19/21 01:11 Insulin Lispro 100 Unit/Ml SUB-Q Not Given Q6HR [facility] Protocol Magnesium Hydroxide 30 ml 07/28/21 02:11 Magnesium Hydroxide (Mom) Oral Liqd Udc PO Q4H PRN Constipation Multi-Ingred Cream/Lotion/Oil/Oint 1 applic 07/29/21 10:42 Mineral Oil/Petrolatum, White Ophth Oint 3.5 Gm OU Q4HR PRN Dry Eye(s) Oxycodone HCl 5 mg 08/18/21 15:45 08/18/21 21:58 Oxycodone 5 Mg Tab PO 5 mg Q4H PRN Administration Pain, Moderate (4-6) Polyethylene Glycol 17 gm 08/11/21 16:00 08/18/21 10:11 Polyethylene Glycol 3350 17 Gm Powder PO 17 gm QDAY DEMIAN Administration Quetiapine Fumarate 100 mg 08/16/21 13:49 08/18/21 21:58 Quetiapine 100 Mg Tab PO 100 mg BID DEMIAN Administration Senna/Docusate Sodium 1 tab 08/11/21 13:00 08/18/21 21:57 Sennosides/Docusate Sodium 8.6/50 Mg Tab FEEDTUBE 1 tab Q8H DEMIAN Administration Simple Syrup 15 ml 07/29/21 13:01 Simple Syrup 15 Ml FEEDTUBE PRN PRN Hypoglycemia Simple Syrup 30 ml 07/29/21 13:01 Simple Syrup 15 Ml FEEDTUBE PRN PRN Hypoglycemia Sodium Bicarbonate 325 mg 07/29/21 13:01 Sodium Bicarbonate 325 Mg Tab FEEDTUBE PRN PRN For Clogged Feeding Tube Sodium Chloride 10 ml 07/28/21 10:00 08/18/21 22:03 Sodium Chloride 0.9% 10 Ml Flush Syringe IV 10 ml BID DEMIAN Administration Sodium Chloride 10 ml 07/28/21 02:05 Sodium Chloride 0.9% 10 Ml Flush Syringe IV PRN PRN LINE FLUSH
[2021-08-19] MEDS: SENNOSIDES/DOCUSATE SODIUM 8.6/50 MG TAB FEEDTUBE SCH ×3 (06:10→21:36)
[2021-08-19 06:29] LABS: Blood Urea Nitrogen 40 mg/dL (7-17); Calcium 8.7 mg/dL (8.4-10.2); Hemolysis Index 3
[2021-08-19 06:30] LABS: BUN/Creatinine Ratio 57
[2021-08-19 06:32] LABS: Hematocrit 24.8 % (30.3-42.9); Hemoglobin 8.5 gm/dl (10.1-14.3); Mean Corpuscular HGB Conc 34 % (30-34); Mean Corpuscular Volume 90 fl (79-97); Platelet Count 268 K/mm3 (140-440); Red Blood Count 2.74 M/mm3 (3.65-5.03); Red Cell Distribution Width 16.8 % (13.2-15.2)
[2021-08-19] MEDS: fentaNYL DRIP Premix 2,000 MCG/100 ML BAG IV SCH ×4 (08:34→22:37)
[2021-08-19] MEDS: BUDESONIDE 0.5 MG/2 ML NEBU IH SCH ×2 (09:07→19:19)
[2021-08-19] MEDS: ARFORMOTEROL 15 MCG/2 ML NEBU IH SCH ×2 (09:07→19:20)
[2021-08-19] MEDS: POLYETHYLENE GLYCOL 3350 17 GM POWDER PO SCH (09:15)
[2021-08-19] MEDS: QUEtiapine 100 MG TAB PO SCH ×2 (09:15→21:32)
[2021-08-19] MEDS: ENOXAPARIN 40 MG/0.4 ML INJ SUB-Q SCH (09:15)
[2021-08-19] MEDS: FAMOTIDINE 20 MG TAB FEEDTUBE SCH ×2 (09:15→21:32)
[2021-08-19] MEDS: IPRATROPIUM/ALBUTEROL SULFATE 3 ML AMPUL.NEB IH SCH ×3 (09:27→19:19)
[2021-08-19] MEDS: hydrALAZINE 20 MG/1 ML INJ IV PRN (12:12)
--- NOTE | 2021-08-19 13:01 | Progress Note ---
Assessment and Plan Acute hypoxemic respiratory failure secondary Lung Mass (? 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 - continue care as below otherwise; - continue daily SAT and SBT assessment as tolerated - s/p full anticoagulation for VTE - continue Seroquel to spare IV sedatives - azotemia per nephrology - continue to wean supplemental oxygen for target O2 sat's > 90% acutely - VAP bundle addressed - continue lung protective strategies - continue bronchodilators (GLADIS & LABA) with pulmonary hygiene per RT - wean per pulmonary driven protocols otherwise - continue accuchecks with glycemic control per SSI (While critically ill target blood glucose of 140-180 mg/dL; avoid hypoglycemia) - sedation prn for target RASS 0 to -1 - avoid nephrotoxins, renally dose all medications - continue to avoid benzodiazepine's, reduce the possibility of delirium - complete AB's per ID rec's - prn analgesia per CPOT score - Maintenance of sleep-wake cycle, avoid delirium - enteral nutritional support at goal rate as tolerated - G.I. & VTE prophylaxis - PT/OT/ROM exercises - continue mobility protocols for pressure ulcer prophylaxis - Monitor hemodynamics closely - continue other care per attending / other consultants - discharge planning ongoing concurrently COVID SPECIFIC INTERVENTIONS - test result pending .... Re-evaluate in am & prn CONDITION: CRITICAL PROGNOSIS: GUARDED CODE STATUS: FULL CODE The high probability of a clinically significant, sudden or life-threatening deterioration of the [respiratory, cardiovascular, oncological & neurologic] system(s) required my full and direct attention, intervention and personal management. The aggregate critical care time was [35] minutes without overlap. Time includes spent on; [x] Data Review and interpretation [x] Patient assessment and monitoring of vital signs [x] Documentation [x] Medication orders and management Subjective Date of service: 08/19/21 Principal diagnosis: Ac hypoxemic resp failure ; AE-COPD; H/O CA Breast; DM II; HTN Interval history: Patient is seen today for: Acute hypoxemic respiratory failure; AE-COPD; Possible hypercapnia; H/O CA Breast; DM II; HTN Seen and examined at bedside; 24hour events reviewed; nursing and respiratory care staff consulted; no adverse overnight events reported to me; resting in bed; remains on MVS; again failed SBT rapidly; sedated now to RASS -2; no emesis or overt aspiration Objective Vital Signs - 12hr 08/19/21 08/19/21 08/19/21 01:15 01:30 01:45 Temperature Pulse Rate 78 76 76 Pulse Rate [ Anterior Bilateral] Pulse Rate [ From Monitor] Respiratory 12 12 11 L Rate Respiratory Rate [Anterior Bilateral] Blood Pressure 95/52 94/54 93/55 O2 Sat by Pulse 99 97 99 Oximetry O2 Sat by Pulse Oximetry [ Assessment] 08/19/21 08/19/21 08/19/21 02:00 02:15 02:30 Temperature Pulse Rate 76 77 80 Pulse Rate [ Anterior Bilateral] Pulse Rate [ From Monitor] Respiratory 12 11 L 11 L Rate Respiratory Rate [Anterior Bilateral] Blood Pressure 86/65 111/66 120/74 O2 Sat by Pulse 97 99 100 Oximetry O2 Sat by Pulse Oximetry [ Assessment] 08/19/21 08/19/21 08/19/21 02:45 03:01 03:15 Temperature Pulse Rate 84 83 83 Pulse Rate [ Anterior Bilateral] Pulse Rate [ From Monitor] Respiratory 11 L 12 11 L Rate Respiratory Rate [Anterior Bilateral] Blood Pressure 120/74 116/66 116/66 O2 Sat by Pulse 100 99 100 Oximetry O2 Sat by Pulse Oximetry [ Assessment] 08/19/21 08/19/21 08/19/21 03:30 03:45 04:00 Temperature 98.2 F Pulse Rate 82 82 80 Pulse Rate [ Anterior Bilateral] Pulse Rate [ 79 From Monitor] Respiratory 12 10 L 12 Rate Respiratory Rate [Anterior Bilateral] Blood Pressure 105/64 104/64 107/71 O2 Sat by Pulse 100 100 100 Oximetry O2 Sat by Pulse Oximetry [ Assessment] 08/19/21 08/19/21 08/19/21 04:15 04:16 04:31 Temperature Pulse Rate 60 87 90 Pulse Rate [ Anterior Bilateral] Pulse Rate [ From Monitor] Respiratory 19 12 Rate Respiratory Rate [Anterior Bilateral] Blood Pressure 107/71 103/67 O2 Sat by Pulse 99 100 98 Oximetry O2 Sat by Pulse Oximetry [ Assessment] 08/19/21 08/19/21 08/19/21 04:45 05:00 05:15 Temperature Pulse Rate 84 78 77 Pulse Rate [ Anterior Bilateral] Pulse Rate [ From Monitor] Respiratory 12 12 12 Rate Respiratory Rate [Anterior Bilateral] Blood Pressure 96/57 95/51 94/54 O2 Sat by Pulse 98 98 97 Oximetry O2 Sat by Pulse Oximetry [ Assessment] 08/19/21 08/19/21 08/19/21 05:31 05:45 06:00 Temperature Pulse Rate 78 76 75 Pulse Rate [ Anterior Bilateral] Pulse Rate [ From Monitor] Respiratory 11 L 12 12 Rate Respiratory Rate [Anterior Bilateral] Blood Pressure 94/54 94/54 94/55 O2 Sat by Pulse 97 100 97 Oximetry O2 Sat by Pulse Oximetry [ Assessment] 08/19/21 08/19/21 08/19/21 06:15 06:31 06:45 Temperature Pulse Rate 74 74 75 Pulse Rate [ Anterior Bilateral] Pulse Rate [ From Monitor] Respiratory 11 L 12 11 L Rate Respiratory Rate [Anterior Bilateral] Blood Pressure 105/61 93/56 95/59 O2 Sat by Pulse 98 98 98 Oximetry O2 Sat by Pulse Oximetry [ Assessment] 08/19/21 08/19/21 08/19/21 07:00 07:15 07:30 Temperature Pulse Rate 76 73 71 Pulse Rate [ Anterior Bilateral] Pulse Rate [ From Monitor] Respiratory 11 L 11 L 12 Rate Respiratory Rate [Anterior Bilateral] Blood Pressure 101/63 105/61 93/54 O2 Sat by Pulse 97 100 98 Oximetry O2 Sat by Pulse Oximetry [ Assessment] 08/19/21 08/19/21 08/19/21 07:45 08:00 08:01 Temperature 98.2 F Pulse Rate 71 70 72 Pulse Rate [ Anterior Bilateral] Pulse Rate [ 70 From Monitor] Respiratory 11 L 12 10 L Rate Respiratory Rate [Anterior Bilateral] Blood Pressure 95/57 95/57 O2 Sat by Pulse 98 98 100 Oximetry O2 Sat by Pulse Oximetry [ Assessment] 08/19/21 08/19/21 08/19/21 08:15 08:30 08:45 Temperature Pulse Rate 70 71 80 Pulse Rate [ Anterior Bilateral] Pulse Rate [ From Monitor] Respiratory 11 L 11 L 10 L Rate Respiratory Rate [Anterior Bilateral] Blood Pressure 121/74 99/65 99/65 O2 Sat by Pulse 100 99 100 Oximetry O2 Sat by Pulse Oximetry [ Assessment] 08/19/21 08/19/21 08/19/21 08:49 09:00 09:01 Temperature Pulse Rate 84 72 Pulse Rate [ Anterior Bilateral] Pulse Rate [ From Monitor] Respiratory 10 L Rate Respiratory Rate [Anterior Bilateral] Blood Pressure 153/93 153/93 O2 Sat by Pulse 100 99 Oximetry O2 Sat by Pulse 100 Oximetry [ Assessment] 08/19/21 08/19/21 08/19/21 09:07 09:15 09:31 Temperature Pulse Rate 115 H 101 H Pulse Rate [ 102 H Anterior Bilateral] Pulse Rate [ From Monitor] Respiratory 13 20 Rate Respiratory 22 Rate [Anterior Bilateral] Blood Pressure 174/99 216/130 O2 Sat by Pulse 100 98 Oximetry O2 Sat by Pulse Oximetry [ Assessment] 08/19/21 08/19/21 08/19/21 09:45 10:00 10:15 Temperature Pulse Rate 106 H 95 H 95 H Pulse Rate [ Anterior Bilateral] Pulse Rate [ From Monitor] Respiratory 10 L 11 L 13 Rate Respiratory Rate [Anterior Bilateral] Blood Pressure 216/130 132/79 125/75 O2 Sat by Pulse 100 97 97 Oximetry O2 Sat by Pulse Oximetry [ Assessment] 08/19/21 08/19/21 08/19/21 10:58 12:00 12:12 Temperature 98.1 F Pulse Rate 90 110 H Pulse Rate [ Anterior Bilateral] Pulse Rate [ From Monitor] Respiratory Rate Respiratory Rate [Anterior Bilateral] Blood Pressure 111/71 193/85 O2 Sat by Pulse 96 Oximetry O2 Sat by Pulse Oximetry [ Assessment] Constitutional: appears uncomfortable, other (eldely obese female without in creased respiratory effort at rest on MVS) Eyes: non-icteric ENT: oropharynx moist, other (trach Shiley #[id number], cuffed; no bleeding) Neck: supple, no lymphadenopathy, no JVD Effort: mildly labored Ascultation: Right: diminished breath sounds (upper lobe), Bilateral: wheezes (central), rhonchi Percussion: Bilateral: not dull Cardiovascular: regular rate and rhythm, other (S1,S2) Gastrointestinal: normoactive bowel sounds, soft, non-tender, non-distended, other (PEG) Integumentary: normal Extremities: no cyanosis, no edema, pulses normal, no ischemia or petechiae Neurologic: non-focal exam (moves all extremities), pupils equal and round, CN II-XII normal Psychiatric: other (sedated) CBC and BMP: 08/20/21 06:00 08/20/21 06:00 ABG, PT/INR, D-dimer: ABG ABG pH 7.337 pH Units (7.350-7.450) L 08/17/21 21:23 POC ABG pCO2 52.2 mmHg (32.0-48.0) H 08/17/21 07:27 ABG pCO2 46.6 mm Hg 08/17/21 21:23 POC ABG pO2 80.8 mmHg (83-108) L 08/17/21 07:27 ABG pO2 122.5 mm Hg (80.0-90.0) H 08/17/21 21:23 POC ABG HCO3 24.6 08/17/21 07:27 ABG O2 Saturation 98.2 % (95.0-99.0) 08/17/21 21:23 PT/INR, D-dimer PT 14.5 Sec. (12.2-14.9) 08/12/21 21:41 INR 1.08 (0.87-1.13) 08/12/21 21:41 D-Dimer 852.47 ng/mlDDU (0-234) H 07/29/21 07:17 Abnormal lab findings: Abnormal Labs 07/27/21 07/27/21 07/27/21 22:57 22:57 22:57 WBC 20.3 H RBC Hgb Hct RDW Lymph % (Auto) Lymph # (Auto) [place]att # (Auto) Seg Neutrophils % Seg Neuts % (Manual) 89.0 H Lymphocytes % (Manual) 9.0 L Nucleated RBC % Seg Neutrophils # Seg Neutrophils # Man 18.1 H Lymphocytes # (Manual) Monocytes # (Manual) D-Dimer ABG pH POC ABG pCO2 POC ABG pO2 ABG pO2 ABG Hemoglobin ABG Oxyhemoglobin ABG Sodium ABG Potassium ABG Chloride ABG Glucose Carboxyhemoglobin Sodium Potassium 3.5 L Chloride 96.9 L Carbon Dioxide 20 L BUN 19 H Creatinine Glucose 204 H POC Glucose Lactic Acid 7.20 H* Calcium Magnesium AST 98 H ALT 90 H Total Protein Albumin Arterial Blood Glucose Arterial Blood Ionized Calcium Urine WBC (Auto) Urine Creatinine Crossmatch 07/28/21 07/28/21 07/28/21 01:31 07:49 10:00 WBC RBC Hgb Hct RDW Lymph % (Auto) Lymph # (Auto) [place] # (Auto) Seg Neutrophils % Seg Neuts % (Manual) Lymphocytes % (Manual) Nucleated RBC % Seg Neutrophils # Seg Neutrophils # Man Lymphocytes # (Manual) Monocytes # (Manual) D-Dimer ABG pH POC ABG pCO2 POC ABG pO2 ABG pO2 ABG Hemoglobin ABG Oxyhemoglobin ABG Sodium ABG Potassium ABG Chloride ABG Glucose Carboxyhemoglobin Sodium Potassium Chloride Carbon Dioxide BUN Creatinine Glucose POC Glucose 194 H Lactic Acid 6.90 H* 6.70 H* Calcium Magnesium AST ALT Total Protein Albumin Arterial Blood Glucose Arterial Blood Ionized Calcium Urine WBC (Auto) Urine Creatinine Crossmatch 07/28/21 07/28/21 07/28/21 12:41 13:21 16:21 WBC RBC Hgb Hct RDW Lymph % (Auto) Lymph # (Auto) [place] # (Auto) Seg Neutrophils % Seg Neuts % (Manual) Lymphocytes % (Manual) Nucleated RBC % Seg Neutrophils # Seg Neutrophils # Man Lymphocytes # (Manual) Monocytes # (Manual) D-Dimer ABG pH POC ABG pCO2 POC ABG pO2 ABG pO2 ABG Hemoglobin ABG Oxyhemoglobin ABG Sodium ABG Potassium ABG Chloride ABG Glucose Carboxyhemoglobin Sodium Potassium Chloride Carbon Dioxide BUN Creatinine Glucose POC Glucose 159 H 155 H Lactic Acid 6.10 H* Calcium Magnesium AST ALT Total Protein Albumin Arterial Blood Glucose Arterial Blood Ionized Calcium Urine WBC (Auto) Urine Creatinine Crossmatch 07/28/21 07/29/21 07/29/21 22:03 04:44 04:44 WBC 17.0 H RBC Hgb Hct RDW Lymph % (Auto) Lymph # (Auto) [place] # (Auto) Seg Neutrophils % Seg Neuts % (Manual) 82.0 H Lymphocytes % (Manual) 11.0 L Nucleated RBC % Seg Neutrophils # Seg Neutrophils # Man 13.9 H Lymphocytes # (Manual) Monocytes # (Manual) 1.0 H D-Dimer ABG pH POC ABG pCO2 POC ABG pO2 ABG pO2 ABG Hemoglobin ABG Oxyhemoglobin ABG Sodium ABG Potassium ABG Chloride ABG Glucose Carboxyhemoglobin Sodium Potassium Chloride Carbon Dioxide BUN 23 H Creatinine Glucose 196 H POC Glucose 187 H Lactic Acid Calcium Magnesium AST ALT Total Protein Albumin Arterial Blood Glucose Arterial Blood Ionized Calcium Urine WBC (Auto) Urine Creatinine Crossmatch 07/29/21 07/29/21 07/29/21 06:56 07:17 07:17 WBC 26.1 H RBC Hgb Hct 43.3 H RDW 16.0 H Lymph % (Auto) Lymph # (Auto) [place] # (Auto) Seg Neutrophils % Seg Neuts % (Manual) 80.0 H Lymphocytes % (Manual) Nucleated RBC % Seg Neutrophils # Seg Neutrophils # Man 20.9 H Lymphocytes # (Manual) Monocytes # (Manual) D-Dimer ABG pH POC ABG pCO2 POC ABG pO2 ABG pO2 ABG Hemoglobin ABG Oxyhemoglobin ABG Sodium ABG Potassium ABG Chloride ABG Glucose Carboxyhemoglobin Sodium Potassium Chloride Carbon Dioxide 20 L D BUN 23 H Creatinine Glucose 308 H POC Glucose 165 H Lactic Acid Calcium Magnesium AST ALT Total Protein Albumin Arterial Blood Glucose Arterial Blood Ionized Calcium Urine WBC (Auto) Urine Creatinine Crossmatch 07/29/21 07/29/21 07/29/21 07:17 09:16 10:30 WBC RBC Hgb Hct RDW Lymph % (Auto) Lymph # (Auto) [place] # (Auto) Seg Neutrophils % Seg Neuts % (Manual) Lymphocytes % (Manual) Nucleated RBC % Seg Neutrophils # Seg Neutrophils # Man Lymphocytes # (Manual) Monocytes # (Manual) D-Dimer 852.47 H ABG pH 7.236 L POC ABG pCO2 56.0 H POC ABG pO2 266.4 H ABG pO2 ABG Hemoglobin ABG Oxyhemoglobin 99.1 H ABG Sodium 132.3 L ABG Potassium 4.9 H ABG Chloride ABG Glucose 202 H Carboxyhemoglobin 0.2 L Sodium Potassium Chloride Carbon Dioxide BUN Creatinine Glucose POC Glucose 271 H Lactic Acid Calcium Magnesium AST ALT Total Protein Albumin Arterial Blood Glucose 202 H Arterial Blood Ionized Calcium Urine WBC (Auto) Urine Creatinine Crossmatch 07/29/21 07/29/21 07/30/21 17:54 23:32 05:08 WBC RBC Hgb Hct RDW Lymph % (Auto) Lymph # (Auto) [place] # (Auto) Seg Neutrophils % Seg Neuts % (Manual) Lymphocytes % (Manual) Nucleated RBC % Seg Neutrophils # Seg Neutrophils # Man Lymphocytes # (Manual) Monocytes # (Manual) D-Dimer ABG pH POC ABG pCO2 POC ABG pO2 ABG pO2 ABG Hemoglobin ABG Oxyhemoglobin ABG Sodium ABG Potassium ABG Chloride ABG Glucose Carboxyhemoglobin Sodium Potassium Chloride Carbon Dioxide BUN Creatinine Glucose POC Glucose 168 H 205 H 214 H Lactic Acid Calcium Magnesium AST ALT Total Protein Albumin Arterial Blood Glucose Arterial Blood Ionized Calcium Urine WBC (Auto) Urine Creatinine Crossmatch 07/30/21 07/30/21 07/30/21 06:01 11:32 17:34 WBC RBC Hgb Hct RDW Lymph % (Auto) Lymph # (Auto) [place] # (Auto) Seg Neutrophils % Seg Neuts % (Manual) Lymphocytes % (Manual) Nucleated RBC % Seg Neutrophils # Seg Neutrophils # Man Lymphocytes # (Manual) Monocytes # (Manual) D-Dimer ABG pH 7.480 H POC ABG pCO2 23.6 L POC ABG pO2 280.0 H ABG pO2 ABG Hemoglobin ABG Oxyhemoglobin 99.3 H ABG Sodium 133.7 L ABG Potassium ABG Chloride ABG Glucose 232 H Carboxyhemoglobin 0 L Sodium Potassium Chloride Carbon Dioxide BUN Creatinine Glucose POC Glucose 207 H 239 H Lactic Acid Calcium Magnesium AST ALT Total Protein Albumin Arterial Blood Glucose 232 H Arterial Blood Ionized Calcium 4.4 L Urine WBC (Auto) Urine Creatinine Crossmatch 07/30/21 07/31/21 07/31/21 23:39 03:34 04:45 WBC 15.0 H RBC Hgb Hct RDW 15.5 H Lymph % (Auto) Lymph # (Auto) [place] # (Auto) Seg Neutrophils % Seg Neuts % (Manual) 89.0 H Lymphocytes % (Manual) 7.0 L Nucleated RBC % Seg Neutrophils # Seg Neutrophils # Man 13.4 H Lymphocytes # (Manual) 1.1 L Monocytes # (Manual) D-Dimer ABG pH 7.481 H POC ABG pCO2 31.8 L POC ABG pO2 ABG pO2 ABG Hemoglobin ABG Oxyhemoglobin ABG Sodium 135.2 L ABG Potassium 3.3 L ABG Chloride ABG Glucose 188 H Carboxyhemoglobin 0.1 L Sodium Potassium Chloride Carbon Dioxide BUN Creatinine Glucose POC Glucose 176 H Lactic Acid Calcium Magnesium AST ALT Total Protein Albumin Arterial Blood Glucose 188 H Arterial Blood Ionized Calcium 4.4 L Urine WBC (Auto) Urine Creatinine Crossmatch 07/31/21 07/31/21 07/31/21 04:45 04:45 11:28 WBC RBC Hgb Hct RDW Lymph % (Auto) Lymph # (Auto) [place] # (Auto) Seg Neutrophils % Seg Neuts % (Manual) Lymphocytes % (Manual) Nucleated RBC % Seg Neutrophils # Seg Neutrophils # Man Lymphocytes # (Manual) Monocytes # (Manual) D-Dimer ABG pH POC ABG pCO2 POC ABG pO2 ABG pO2 ABG Hemoglobin ABG Oxyhemoglobin ABG Sodium ABG Potassium ABG Chloride ABG Glucose Carboxyhemoglobin Sodium Potassium 3.4 L Chloride Carbon Dioxide BUN 61 H Creatinine 2.6 H D Glucose 176 H POC Glucose 195 H 245 H Lactic Acid Calcium Magnesium AST ALT Total Protein Albumin Arterial Blood Glucose Arterial Blood Ionized Calcium Urine WBC (Auto) Urine Creatinine Crossmatch 07/31/21 07/31/21 08/01/21 17:32 23:58 01:00 WBC RBC Hgb Hct RDW Lymph % (Auto) Lymph # (Auto) [place] # (Auto) Seg Neutrophils % Seg Neuts % (Manual) Lymphocytes % (Manual) Nucleated RBC % Seg Neutrophils # Seg Neutrophils # Man Lymphocytes # (Manual) Monocytes # (Manual) D-Dimer ABG pH POC ABG pCO2 POC ABG pO2 ABG pO2 ABG Hemoglobin ABG Oxyhemoglobin ABG Sodium ABG Potassium ABG Chloride ABG Glucose 284 H Carboxyhemoglobin 0.3 L Sodium Potassium Chloride Carbon Dioxide BUN Creatinine Glucose POC Glucose 251 H 294 H Lactic Acid Calcium Magnesium AST ALT Total Protein Albumin Arterial Blood Glucose 284 H Arterial Blood Ionized Calcium Urine WBC (Auto) Urine Creatinine Crossmatch 08/01/21 08/01/21 08/01/21 05:50 05:50 06:11 WBC 16.2 H RBC Hgb Hct RDW 15.5 H Lymph % (Auto) Lymph # (Auto) [place] # (Auto) Seg Neutrophils % Seg Neuts % (Manual) 93.0 H Lymphocytes % (Manual) 2.0 L Nucleated RBC % 3.0 H Seg Neutrophils # Seg Neutrophils # Man 15.1 H Lymphocytes # (Manual) 0.3 L Monocytes # (Manual) D-Dimer ABG pH POC ABG pCO2 POC ABG pO2 ABG pO2 ABG Hemoglobin ABG Oxyhemoglobin ABG Sodium ABG Potassium ABG Chloride ABG Glucose Carboxyhemoglobin Sodium Potassium Chloride Carbon Dioxide BUN 64 H Creatinine 1.9 H Glucose 277 H POC Glucose 256 H Lactic Acid Calcium Magnesium AST ALT Total Protein Albumin Arterial Blood Glucose Arterial Blood Ionized Calcium Urine WBC (Auto) Urine Creatinine Crossmatch 08/01/21 08/01/21 08/01/21 11:39 17:25 23:53 WBC RBC Hgb Hct RDW Lymph % (Auto) Lymph # (Auto) [place] # (Auto) Seg Neutrophils % Seg Neuts % (Manual) Lymphocytes % (Manual) Nucleated RBC % Seg Neutrophils # Seg Neutrophils # Man Lymphocytes # (Manual) Monocytes # (Manual) D-Dimer ABG pH POC ABG pCO2 POC ABG pO2 ABG pO2 ABG Hemoglobin ABG Oxyhemoglobin ABG Sodium ABG Potassium ABG Chloride ABG Glucose Carboxyhemoglobin Sodium Potassium Chloride Carbon Dioxide BUN Creatinine Glucose POC Glucose 289 H 275 H 327 H Lactic Acid Calcium Magnesium AST ALT Total Protein Albumin Arterial Blood Glucose Arterial Blood Ionized Calcium Urine WBC (Auto) Urine Creatinine Crossmatch 08/01/21 08/02/21 08/02/21 Unknown 04:00 12:03 WBC RBC Hgb Hct RDW Lymph % (Auto) Lymph # (Auto) [place] # (Auto) Seg Neutrophils % Seg Neuts % (Manual) Lymphocytes % (Manual) Nucleated RBC % Seg Neutrophils # Seg Neutrophils # Man Lymphocytes # (Manual) Monocytes # (Manual) D-Dimer ABG pH POC ABG pCO2 POC ABG pO2 ABG pO2 ABG Hemoglobin ABG Oxyhemoglobin ABG Sodium ABG Potassium ABG Chloride ABG Glucose 325 H Carboxyhemoglobin 0.4 L Sodium Potassium Chloride Carbon Dioxide BUN Creatinine Glucose POC Glucose 209 H Lactic Acid Calcium Magnesium AST ALT Total Protein Albumin Arterial Blood Glucose 325 H Arterial Blood Ionized Calcium Urine WBC (Auto) Urine Creatinine 125.6 H Crossmatch 08/02/21 08/02/21 08/02/21 15:30 17:03 23:17 WBC RBC Hgb Hct RDW Lymph % (Auto) Lymph # (Auto) [place] # (Auto) Seg Neutrophils % Seg Neuts % (Manual) Lymphocytes % (Manual) Nucleated RBC % Seg Neutrophils # Seg Neutrophils # Man Lymphocytes # (Manual) Monocytes # (Manual) D-Dimer ABG pH POC ABG pCO2 POC ABG pO2 ABG pO2 ABG Hemoglobin ABG Oxyhemoglobin ABG Sodium ABG Potassium ABG Chloride ABG Glucose Carboxyhemoglobin Sodium Potassium Chloride Carbon Dioxide BUN Creatinine Glucose POC Glucose 210 H 265 H Lactic Acid Calcium Magnesium AST ALT Total Protein Albumin Arterial Blood Glucose Arterial Blood Ionized Calcium Urine WBC (Auto) 47.0 H Urine Creatinine Crossmatch 08/02/21 08/02/21 08/03/21 Unknown Unknown 04:17 WBC 14.1 H RBC Hgb Hct RDW 16.3 H Lymph % (Auto) 5.1 L Lymph # (Auto) 0.7 L [place]att # (Auto) 0.9 H Seg Neutrophils % 88.7 H Seg Neuts % (Manual) Lymphocytes % (Manual) Nucleated RBC % Seg Neutrophils # 12.5 H Seg Neutrophils # Man Lymphocytes # (Manual) Monocytes # (Manual) D-Dimer ABG pH POC ABG pCO2 POC ABG pO2 ABG pO2 ABG Hemoglobin ABG Oxyhemoglobin ABG Sodium ABG Potassium ABG Chloride ABG Glucose Carboxyhemoglobin Sodium Potassium Chloride Carbon Dioxide BUN 72 H 72 H Creatinine 1.8 H 1.6 H Glucose 307 H 263 H POC Glucose Lactic Acid Calcium Magnesium AST ALT Total Protein Albumin Arterial Blood Glucose Arterial Blood Ionized Calcium Urine WBC (Auto) Urine Creatinine Crossmatch 08/03/21 08/03/21 08/03/21 04:17 05:30 08:30 WBC 13.9 H RBC Hgb Hct RDW 16.0 H Lymph % (Auto) Lymph # (Auto) [place] # (Auto) Seg Neutrophils % Seg Neuts % (Manual) Lymphocytes % (Manual) Nucleated RBC % Seg Neutrophils # Seg Neutrophils # Man Lymphocytes # (Manual) Monocytes # (Manual) D-Dimer ABG pH POC ABG pCO2 POC ABG pO2 ABG pO2 ABG Hemoglobin ABG Oxyhemoglobin ABG Sodium ABG Potassium ABG Chloride ABG Glucose Carboxyhemoglobin Sodium Potassium Chloride Carbon Dioxide BUN Creatinine Glucose POC Glucose 280 H Lactic Acid Calcium Magnesium 3.00 H AST ALT Total Protein Albumin Arterial Blood Glucose Arterial Blood Ionized Calcium Urine WBC (Auto) Urine Creatinine Crossmatch 08/03/21 08/03/21 08/03/21 12:14 13:39 15:11 WBC RBC Hgb Hct RDW Lymph % (Auto) Lymph # (Auto) [place] # (Auto) Seg Neutrophils % Seg Neuts % (Manual) Lymphocytes % (Manual) Nucleated RBC % Seg Neutrophils # Seg Neutrophils # Man Lymphocytes # (Manual) Monocytes # (Manual) D-Dimer ABG pH POC ABG pCO2 POC ABG pO2 ABG pO2 ABG Hemoglobin ABG Oxyhemoglobin ABG Sodium ABG Potassium ABG Chloride ABG Glucose 306 H Carboxyhemoglobin 0.3 L Sodium Potassium Chloride Carbon Dioxide BUN Creatinine Glucose POC Glucose 287 H Lactic Acid 2.10 H* Calcium Magnesium AST ALT Total Protein Albumin Arterial Blood Glucose 306 H Arterial Blood Ionized Calcium Urine WBC (Auto) Urine Creatinine Crossmatch 08/03/21 08/03/21 08/04/21 16:52 23:08 04:00 WBC RBC Hgb Hct RDW Lymph % (Auto) Lymph # (Auto) [place] # (Auto) Seg Neutrophils % Seg Neuts % (Manual) Lymphocytes % (Manual) Nucleated RBC % Seg Neutrophils # Seg Neutrophils # Man Lymphocytes # (Manual) Monocytes # (Manual) D-Dimer ABG pH POC ABG pCO2 54.3 H POC ABG pO2 82.2 L ABG pO2 ABG Hemoglobin ABG Oxyhemoglobin ABG Sodium 145.1 H ABG Potassium 5.0 H ABG Chloride ABG Glucose 316 H Carboxyhemoglobin 0.3 L Sodium Potassium Chloride Carbon Dioxide BUN Creatinine Glucose POC Glucose 282 H 289 H Lactic Acid Calcium Magnesium AST ALT Total Protein Albumin Arterial Blood Glucose 316 H Arterial Blood Ionized Calcium Urine WBC (Auto) Urine Creatinine Crossmatch 08/04/21 08/04/21 08/04/21 04:38 04:38 05:19 WBC 17.7 H RBC Hgb Hct RDW 16.5 H Lymph % (Auto) Lymph # (Auto) [place] # (Auto) Seg Neutrophils % Seg Neuts % (Manual) Lymphocytes % (Manual) Nucleated RBC % Seg Neutrophils # Seg Neutrophils # Man Lymphocytes # (Manual) Monocytes # (Manual) D-Dimer ABG pH POC ABG pCO2 POC ABG pO2 ABG pO2 ABG Hemoglobin ABG Oxyhemoglobin ABG Sodium ABG Potassium ABG Chloride ABG Glucose Carboxyhemoglobin Sodium Potassium Chloride 108.3 H Carbon Dioxide BUN 76 H Creatinine 1.4 H Glucose 310 H POC Glucose 268 H Lactic Acid Calcium Magnesium 2.70 H AST ALT Total Protein Albumin Arterial Blood Glucose Arterial Blood Ionized Calcium Urine WBC (Auto) Urine Creatinine Crossmatch 08/04/21 08/04/21 08/04/21 11:48 16:41 23:49 WBC RBC Hgb Hct RDW Lymph % (Auto) Lymph # (Auto) [place] # (Auto) Seg Neutrophils % Seg Neuts % (Manual) Lymphocytes % (Manual) Nucleated RBC % Seg Neutrophils # Seg Neutrophils # Man Lymphocytes # (Manual) Monocytes # (Manual) D-Dimer ABG pH POC ABG pCO2 POC ABG pO2 ABG pO2 ABG Hemoglobin ABG Oxyhemoglobin ABG Sodium ABG Potassium ABG Chloride ABG Glucose Carboxyhemoglobin Sodium Potassium Chloride Carbon Dioxide BUN Creatinine Glucose POC Glucose 197 H 208 H 209 H Lactic Acid Calcium Magnesium AST ALT Total Protein Albumin Arterial Blood Glucose Arterial Blood Ionized Calcium Urine WBC (Auto) Urine Creatinine Crossmatch 08/05/21 08/05/21 08/05/21 04:00 04:50 04:50 WBC 19.0 H RBC Hgb Hct RDW 17.0 H Lymph % (Auto) Lymph # (Auto) [place] # (Auto) Seg Neutrophils % Seg Neuts % (Manual) 75.0 H Lymphocytes % (Manual) 2.0 L Nucleated RBC % Seg Neutrophils # Seg Neutrophils # Man 14.3 H Lymphocytes # (Manual) 0.4 L Monocytes # (Manual) 1.0 H D-Dimer ABG pH 7.314 L POC ABG pCO2 48.9 H POC ABG pO2 ABG pO2 ABG Hemoglobin ABG Oxyhemoglobin ABG Sodium ABG Potassium 5.0 H ABG Chloride 109.0 H ABG Glucose 234 H Carboxyhemoglobin 0.4 L Sodium Potassium 5.2 H Chloride 110.0 H Carbon Dioxide BUN 90 H Creatinine 1.8 H Glucose 235 H POC Glucose Lactic Acid Calcium Magnesium 2.60 H AST ALT Total Protein Albumin Arterial Blood Glucose 234 H Arterial Blood Ionized Calcium Urine WBC (Auto) Urine Creatinine Crossmatch 08/05/21 08/05/21 08/05/21 06:05 12:02 17:08 WBC RBC Hgb Hct RDW Lymph % (Auto) Lymph # (Auto) [place] # (Auto) Seg Neutrophils % Seg Neuts % (Manual) Lymphocytes % (Manual) Nucleated RBC % Seg Neutrophils # Seg Neutrophils # Man Lymphocytes # (Manual) Monocytes # (Manual) D-Dimer ABG pH POC ABG pCO2 POC ABG pO2 ABG pO2 ABG Hemoglobin ABG Oxyhemoglobin ABG Sodium ABG Potassium ABG Chloride ABG Glucose Carboxyhemoglobin Sodium Potassium Chloride Carbon Dioxide BUN Creatinine Glucose POC Glucose 225 H 193 H 263 H Lactic Acid Calcium Magnesium AST ALT Total Protein Albumin Arterial Blood Glucose Arterial Blood Ionized Calcium Urine WBC (Auto) Urine Creatinine Crossmatch 08/05/21 08/06/21 08/06/21 23:34 05:00 05:00 WBC 16.8 H RBC 3.64 L Hgb Hct RDW 16.6 H Lymph % (Auto) Lymph # (Auto) [place] # (Auto) Seg Neutrophils % Seg Neuts % (Manual) Lymphocytes % (Manual) Nucleated RBC % Seg Neutrophils # Seg Neutrophils # Man Lymphocytes # (Manual) Monocytes # (Manual) D-Dimer ABG pH POC ABG pCO2 POC ABG pO2 ABG pO2 ABG Hemoglobin ABG Oxyhemoglobin ABG Sodium ABG Potassium ABG Chloride ABG Glucose Carboxyhemoglobin Sodium Potassium Chloride 109.3 H Carbon Dioxide BUN 89 H Creatinine 1.6 H Glucose 197 H POC Glucose 224 H Lactic Acid Calcium 8.2 L Magnesium AST ALT Total Protein Albumin Arterial Blood Glucose Arterial Blood Ionized Calcium Urine WBC (Auto) Urine Creatinine Crossmatch 08/06/21 08/06/21 08/06/21 05:26 11:38 16:30 WBC RBC Hgb Hct RDW Lymph % (Auto) Lymph # (Auto) [place] # (Auto) Seg Neutrophils % Seg Neuts % (Manual) Lymphocytes % (Manual) Nucleated RBC % Seg Neutrophils # Seg Neutrophils # Man Lymphocytes # (Manual) Monocytes # (Manual) D-Dimer ABG pH POC ABG pCO2 POC ABG pO2 ABG pO2 ABG Hemoglobin ABG Oxyhemoglobin ABG Sodium ABG Potassium ABG Chloride ABG Glucose Carboxyhemoglobin Sodium Potassium Chloride Carbon Dioxide BUN Creatinine Glucose POC Glucose 168 H 160 H 135 H Lactic Acid Calcium Magnesium AST ALT Total Protein Albumin Arterial Blood Glucose Arterial Blood Ionized Calcium Urine WBC (Auto) Urine Creatinine Crossmatch 08/06/21 08/07/21 08/07/21 23:08 04:00 04:00 WBC 13.6 H RBC 3.30 L Hgb 9.5 L Hct 29.2 L RDW 16.7 H Lymph % (Auto) Lymph # (Auto) [place] # (Auto) Seg Neutrophils % Seg Neuts % (Manual) Lymphocytes % (Manual) Nucleated RBC % Seg Neutrophils # Seg Neutrophils # Man Lymphocytes # (Manual) Monocytes # (Manual) D-Dimer ABG pH POC ABG pCO2 POC ABG pO2 ABG pO2 ABG Hemoglobin ABG Oxyhemoglobin ABG Sodium ABG Potassium ABG Chloride ABG Glucose Carboxyhemoglobin Sodium 146 H Potassium Chloride 111.4 H Carbon Dioxide BUN 78 H Creatinine 1.5 H Glucose 143 H POC Glucose 125 H Lactic Acid Calcium 8.2 L Magnesium AST ALT Total Protein Albumin Arterial Blood Glucose Arterial Blood Ionized Calcium Urine WBC (Auto) Urine Creatinine Crossmatch 08/07/21 08/07/21 08/07/21 04:00 05:16 12:12 WBC RBC Hgb Hct RDW Lymph % (Auto) Lymph # (Auto) [place] # (Auto) Seg Neutrophils % Seg Neuts % (Manual) Lymphocytes % (Manual) Nucleated RBC % Seg Neutrophils # Seg Neutrophils # Man Lymphocytes # (Manual) Monocytes # (Manual) D-Dimer ABG pH POC ABG pCO2 POC ABG pO2 80.1 L ABG pO2 ABG Hemoglobin 9.8 L ABG Oxyhemoglobin ABG Sodium ABG Potassium ABG Chloride 111.0 H ABG Glucose 157 H Carboxyhemoglobin 0.3 L Sodium Potassium Chloride Carbon Dioxide BUN Creatinine Glucose POC Glucose 144 H 125 H Lactic Acid Calcium Magnesium AST ALT Total Protein Albumin Arterial Blood Glucose 157 H Arterial Blood Ionized Calcium 4.5 L Urine WBC (Auto) Urine Creatinine Crossmatch 08/07/21 08/08/21 08/08/21 23:20 04:47 06:00 WBC 13.8 H RBC 3.19 L Hgb 9.3 L Hct 28.4 L RDW 16.4 H Lymph % (Auto) Lymph # (Auto) [place] # (Auto) Seg Neutrophils % Seg Neuts % (Manual) Lymphocytes % (Manual) Nucleated RBC % Seg Neutrophils # Seg Neutrophils # Man Lymphocytes # (Manual) Monocytes # (Manual) D-Dimer ABG pH POC ABG pCO2 POC ABG pO2 ABG pO2 ABG Hemoglobin ABG Oxyhemoglobin ABG Sodium ABG Potassium ABG Chloride ABG Glucose Carboxyhemoglobin Sodium Potassium Chloride Carbon Dioxide BUN Creatinine Glucose POC Glucose 118 H 130 H Lactic Acid Calcium Magnesium AST ALT Total Protein Albumin Arterial Blood Glucose Arterial Blood Ionized Calcium Urine WBC (Auto) Urine Creatinine Crossmatch 08/08/21 08/08/21 08/08/21 06:00 11:33 17:54 WBC RBC Hgb Hct RDW Lymph % (Auto) Lymph # (Auto) [place] # (Auto) Seg Neutrophils % Seg Neuts % (Manual) Lymphocytes % (Manual) Nucleated RBC % Seg Neutrophils # Seg Neutrophils # Man Lymphocytes # (Manual) Monocytes # (Manual) D-Dimer ABG pH POC ABG pCO2 POC ABG pO2 ABG pO2 ABG Hemoglobin ABG Oxyhemoglobin ABG Sodium ABG Potassium ABG Chloride ABG Glucose Carboxyhemoglobin Sodium 147 H Potassium Chloride 112.4 H Carbon Dioxide BUN 71 H Creatinine 1.4 H Glucose 124 H POC Glucose 126 H 124 H Lactic Acid Calcium Magnesium AST ALT Total Protein Albumin Arterial Blood Glucose Arterial Blood Ionized Calcium Urine WBC (Auto) Urine Creatinine Crossmatch 08/08/21 08/09/21 08/09/21 23:41 06:06 10:00 WBC RBC Hgb Hct RDW Lymph % (Auto) Lymph # (Auto) [place] # (Auto) Seg Neutrophils % Seg Neuts % (Manual) Lymphocytes % (Manual) Nucleated RBC % Seg Neutrophils # Seg Neutrophils # Man Lymphocytes # (Manual) Monocytes # (Manual) D-Dimer ABG pH POC ABG pCO2 POC ABG pO2 ABG pO2 ABG Hemoglobin ABG Oxyhemoglobin ABG Sodium ABG Potassium ABG Chloride ABG Glucose Carboxyhemoglobin Sodium 146 H Potassium Chloride 111.3 H Carbon Dioxide BUN 72 H Creatinine 1.5 H Glucose 119 H POC Glucose 119 H 127 H Lactic Acid Calcium Magnesium AST ALT 69 H Total Protein 5.2 L Albumin 2.6 L Arterial Blood Glucose Arterial Blood Ionized Calcium Urine WBC (Auto) Urine Creatinine Crossmatch 08/09/21 08/09/21 08/09/21 10:00 11:34 16:50 WBC 13.0 H RBC 2.88 L Hgb 8.5 L Hct 25.8 L RDW 16.5 H Lymph % (Auto) Lymph # (Auto) [place] # (Auto) Seg Neutrophils % Seg Neuts % (Manual) Lymphocytes % (Manual) Nucleated RBC % Seg Neutrophils # Seg Neutrophils # Man Lymphocytes # (Manual) Monocytes # (Manual) D-Dimer ABG pH POC ABG pCO2 POC ABG pO2 ABG pO2 ABG Hemoglobin ABG Oxyhemoglobin ABG Sodium ABG Potassium ABG Chloride ABG Glucose Carboxyhemoglobin Sodium Potassium Chloride Carbon Dioxide BUN Creatinine Glucose POC Glucose 114 H 117 H Lactic Acid Calcium Magnesium AST ALT Total Protein Albumin Arterial Blood Glucose Arterial Blood Ionized Calcium Urine WBC (Auto) Urine Creatinine Crossmatch 08/10/21 08/10/21 08/10/21 00:12 05:20 05:20 WBC 13.2 H RBC 2.92 L Hgb 8.4 L Hct 25.9 L RDW 16.7 H Lymph % (Auto) Lymph # (Auto) [place] # (Auto) Seg Neutrophils % Seg Neuts % (Manual) Lymphocytes % (Manual) Nucleated RBC % Seg Neutrophils # Seg Neutrophils # Man Lymphocytes # (Manual) Monocytes # (Manual) D-Dimer ABG pH POC ABG pCO2 POC ABG pO2 ABG pO2 ABG Hemoglobin ABG Oxyhemoglobin ABG Sodium ABG Potassium ABG Chloride ABG Glucose Carboxyhemoglobin Sodium 147 H Potassium Chloride 111.8 H Carbon Dioxide BUN 68 H Creatinine 1.4 H Glucose POC Glucose 114 H Lactic Acid Calcium Magnesium AST ALT Total Protein Albumin Arterial Blood Glucose Arterial Blood Ionized Calcium Urine WBC (Auto) Urine Creatinine Crossmatch 08/10/21 08/10/21 08/11/21 17:52 18:23 02:51 WBC RBC Hgb Hct RDW Lymph % (Auto) Lymph # (Auto) [place] # (Auto) Seg Neutrophils % Seg Neuts % (Manual) Lymphocytes % (Manual) Nucleated RBC % Seg Neutrophils # Seg Neutrophils # Man Lymphocytes # (Manual) Monocytes # (Manual) D-Dimer ABG pH POC ABG pCO2 POC ABG pO2 ABG pO2 ABG Hemoglobin 8.7 L ABG Oxyhemoglobin ABG Sodium ABG Potassium ABG Chloride 111.0 H ABG Glucose Carboxyhemoglobin 0.2 L Sodium Potassium Chloride Carbon Dioxide BUN Creatinine Glucose POC Glucose 55 L 133 H Lactic Acid Calcium Magnesium AST ALT Total Protein Albumin Arterial Blood Glucose Arterial Blood Ionized Calcium 4.5 L Urine WBC (Auto) Urine Creatinine Crossmatch 08/11/21 08/11/21 08/11/21 04:30 11:36 17:11 WBC RBC Hgb Hct RDW Lymph % (Auto) Lymph # (Auto) [place] # (Auto) Seg Neutrophils % Seg Neuts % (Manual) Lymphocytes % (Manual) Nucleated RBC % Seg Neutrophils # Seg Neutrophils # Man Lymphocytes # (Manual) Monocytes # (Manual) D-Dimer ABG pH POC ABG pCO2 POC ABG pO2 ABG pO2 ABG Hemoglobin ABG Oxyhemoglobin ABG Sodium ABG Potassium ABG Chloride ABG Glucose Carboxyhemoglobin Sodium Potassium Chloride 110.0 H Carbon Dioxide BUN 59 H Creatinine Glucose POC Glucose 116 H 115 H Lactic Acid Calcium 8.3 L Magnesium AST ALT 64 H Total Protein 5.5 L Albumin 2.6 L Arterial Blood Glucose Arterial Blood Ionized Calcium Urine WBC (Auto) Urine Creatinine Crossmatch 08/11/21 08/11/21 08/12/21 23:18 Unknown 05:05 WBC 12.2 H RBC 2.81 L Hgb 8.4 L Hct 25.4 L RDW 17.0 H Lymph % (Auto) Lymph # (Auto) [place] # (Auto) Seg Neutrophils % Seg Neuts % (Manual) Lymphocytes % (Manual) Nucleated RBC % Seg Neutrophils # Seg Neutrophils # Man Lymphocytes # (Manual) Monocytes # (Manual) D-Dimer ABG pH POC ABG pCO2 POC ABG pO2 ABG pO2 ABG Hemoglobin ABG Oxyhemoglobin ABG Sodium ABG Potassium ABG Chloride ABG Glucose Carboxyhemoglobin Sodium Potassium Chloride Carbon Dioxide BUN Creatinine Glucose POC Glucose 126 H 131 H Lactic Acid Calcium Magnesium AST ALT Total Protein Albumin Arterial Blood Glucose Arterial Blood Ionized Calcium Urine WBC (Auto) Urine Creatinine Crossmatch 08/12/21 08/12/21 08/12/21 12:14 17:19 21:41 WBC 16.5 H RBC 3.04 L Hgb 8.9 L Hct 27.3 L RDW 17.0 H Lymph % (Auto) 9.0 L Lymph # (Auto) [place] # (Auto) 1.1 H Seg Neutrophils % 83.7 H Seg Neuts % (Manual) Lymphocytes % (Manual) Nucleated RBC % Seg Neutrophils # 13.8 H Seg Neutrophils # Man Lymphocytes # (Manual) Monocytes # (Manual) D-Dimer ABG pH POC ABG pCO2 POC ABG pO2 ABG pO2 ABG Hemoglobin ABG Oxyhemoglobin ABG Sodium ABG Potassium ABG Chloride ABG Glucose Carboxyhemoglobin Sodium Potassium Chloride Carbon Dioxide BUN Creatinine Glucose POC Glucose 123 H 129 H Lactic Acid Calcium Magnesium AST ALT Total Protein Albumin Arterial Blood Glucose Arterial Blood Ionized Calcium Urine WBC (Auto) Urine Creatinine Crossmatch 08/12/21 08/12/21 08/13/21 21:41 23:26 05:24 WBC RBC Hgb Hct RDW Lymph % (Auto) Lymph # (Auto) [place] # (Auto) Seg Neutrophils % Seg Neuts % (Manual) Lymphocytes % (Manual) Nucleated RBC % Seg Neutrophils # Seg Neutrophils # Man Lymphocytes # (Manual) Monocytes # (Manual) D-Dimer ABG pH POC ABG pCO2 POC ABG pO2 ABG pO2 ABG Hemoglobin ABG Oxyhemoglobin ABG Sodium ABG Potassium ABG Chloride ABG Glucose Carboxyhemoglobin Sodium 147 H Potassium Chloride 110.7 H Carbon Dioxide BUN 48 H Creatinine Glucose 147 H POC Glucose 133 H 109 H Lactic Acid Calcium Magnesium AST ALT Total Protein Albumin Arterial Blood Glucose Arterial Blood Ionized Calcium Urine WBC (Auto) Urine Creatinine Crossmatch 08/13/21 08/13/21 08/13/21 05:43 11:36 18:00 WBC RBC Hgb Hct RDW Lymph % (Auto) Lymph # (Auto) [place] # (Auto) Seg Neutrophils % Seg Neuts % (Manual) Lymphocytes % (Manual) Nucleated RBC % Seg Neutrophils # Seg Neutrophils # Man Lymphocytes # (Manual) Monocytes # (Manual) D-Dimer ABG pH POC ABG pCO2 POC ABG pO2 76.8 L ABG pO2 ABG Hemoglobin 8.6 L ABG Oxyhemoglobin ABG Sodium ABG Potassium ABG Chloride 112.0 H ABG Glucose 126 H Carboxyhemoglobin 0.4 L Sodium Potassium Chloride Carbon Dioxide BUN Creatinine Glucose POC Glucose 127 H 128 H Lactic Acid Calcium Magnesium AST ALT Total Protein Albumin Arterial Blood Glucose 126 H Arterial Blood Ionized Calcium 4.4 L Urine WBC (Auto) Urine Creatinine Crossmatch 08/13/21 08/14/21 08/14/21 23:27 04:00 04:00 WBC RBC 2.65 L Hgb 8.1 L Hct 24.0 L RDW 17.1 H Lymph % (Auto) Lymph # (Auto) [place] # (Auto) Seg Neutrophils % Seg Neuts % (Manual) Lymphocytes % (Manual) Nucleated RBC % Seg Neutrophils # Seg Neutrophils # Man Lymphocytes # (Manual) Monocytes # (Manual) D-Dimer ABG pH POC ABG pCO2 POC ABG pO2 ABG pO2 ABG Hemoglobin ABG Oxyhemoglobin ABG Sodium ABG Potassium ABG Chloride ABG Glucose Carboxyhemoglobin Sodium 146 H Potassium Chloride 108.7 H Carbon Dioxide 31 H BUN 38 H Creatinine Glucose 115 H POC Glucose 125 H Lactic Acid Calcium Magnesium AST ALT Total Protein 5.8 L Albumin 2.6 L Arterial Blood Glucose Arterial Blood Ionized Calcium Urine WBC (Auto) Urine Creatinine Crossmatch 08/14/21 08/14/21 08/15/21 05:24 11:34 05:16 WBC RBC Hgb Hct RDW Lymph % (Auto) Lymph # (Auto) [place] # (Auto) Seg Neutrophils % Seg Neuts % (Manual) Lymphocytes % (Manual) Nucleated RBC % Seg Neutrophils # Seg Neutrophils # Man Lymphocytes # (Manual) Monocytes # (Manual) D-Dimer ABG pH POC ABG pCO2 POC ABG pO2 ABG pO2 ABG Hemoglobin ABG Oxyhemoglobin ABG Sodium ABG Potassium ABG Chloride ABG Glucose Carboxyhemoglobin Sodium Potassium Chloride Carbon Dioxide BUN Creatinine Glucose POC Glucose 126 H 126 H 110 H Lactic Acid Calcium Magnesium AST ALT Total Protein Albumin Arterial Blood Glucose Arterial Blood Ionized Calcium Urine WBC (Auto) Urine Creatinine Crossmatch 08/15/21 08/15/21 08/15/21 11:37 17:48 Unknown WBC RBC 2.53 L Hgb 7.7 L Hct 23.0 L RDW 17.0 H Lymph % (Auto) 12.5 L Lymph # (Auto) 1.0 L [place] # (Auto) Seg Neutrophils % 80.4 H Seg Neuts % (Manual) Lymphocytes % (Manual) Nucleated RBC % Seg Neutrophils # Seg Neutrophils # Man Lymphocytes # (Manual) Monocytes # (Manual) D-Dimer ABG pH POC ABG pCO2 POC ABG pO2 ABG pO2 ABG Hemoglobin ABG Oxyhemoglobin ABG Sodium ABG Potassium ABG Chloride ABG Glucose Carboxyhemoglobin Sodium Potassium Chloride Carbon Dioxide BUN Creatinine Glucose POC Glucose 106 H 110 H Lactic Acid Calcium Magnesium AST ALT Total Protein Albumin Arterial Blood Glucose Arterial Blood Ionized Calcium Urine WBC (Auto) Urine Creatinine Crossmatch 08/15/21 08/16/21 08/16/21 Unknown 05:40 12:00 WBC RBC Hgb Hct RDW Lymph % (Auto) Lymph # (Auto) [place] # (Auto) Seg Neutrophils % Seg Neuts % (Manual) Lymphocytes % (Manual) Nucleated RBC % Seg Neutrophils # Seg Neutrophils # Man Lymphocytes # (Manual) Monocytes # (Manual) D-Dimer ABG pH POC ABG pCO2 POC ABG pO2 ABG pO2 ABG Hemoglobin ABG Oxyhemoglobin ABG Sodium ABG Potassium ABG Chloride ABG Glucose Carboxyhemoglobin Sodium Potassium Chloride 107.2 H Carbon Dioxide BUN 36 H Creatinine Glucose 109 H POC Glucose 111 H 114 H Lactic Acid Calcium Magnesium AST ALT 63 H Total Protein 5.5 L Albumin 2.4 L Arterial Blood Glucose Arterial Blood Ionized Calcium Urine WBC (Auto) Urine Creatinine Crossmatch 08/16/21 08/16/21 08/16/21 12:36 12:36 17:08 WBC RBC 2.54 L Hgb 7.3 L Hct 22.8 L RDW 17.1 H Lymph % (Auto) Lymph # (Auto) [place] # (Auto) Seg Neutrophils % Seg Neuts % (Manual) Lymphocytes % (Manual) Nucleated RBC % Seg Neutrophils # Seg Neutrophils # Man Lymphocytes # (Manual) Monocytes # (Manual) D-Dimer ABG pH POC ABG pCO2 POC ABG pO2 ABG pO2 ABG Hemoglobin ABG Oxyhemoglobin ABG Sodium ABG Potassium ABG Chloride ABG Glucose Carboxyhemoglobin Sodium Potassium Chloride Carbon Dioxide BUN 39 H Creatinine Glucose 123 H POC Glucose 112 H Lactic Acid Calcium Magnesium AST ALT Total Protein Albumin Arterial Blood Glucose Arterial Blood Ionized Calcium Urine WBC (Auto) Urine Creatinine Crossmatch 08/17/21 08/17/21 08/17/21 05:26 07:27 11:19 WBC RBC Hgb Hct RDW Lymph % (Auto) Lymph # (Auto) [place] # (Auto) Seg Neutrophils % Seg Neuts % (Manual) Lymphocytes % (Manual) Nucleated RBC % Seg Neutrophils # Seg Neutrophils # Man Lymphocytes # (Manual) Monocytes # (Manual) D-Dimer ABG pH 7.292 L POC ABG pCO2 52.2 H POC ABG pO2 80.8 L ABG pO2 ABG Hemoglobin 9.2 L ABG Oxyhemoglobin 93.8 L ABG Sodium 135.3 L ABG Potassium ABG Chloride ABG Glucose 135 H Carboxyhemoglobin 0.2 L Sodium Potassium Chloride Carbon Dioxide BUN Creatinine Glucose POC Glucose 121 H 137 H Lactic Acid Calcium Magnesium AST ALT Total Protein Albumin Arterial Blood Glucose 135 H Arterial Blood Ionized Calcium Urine WBC (Auto) Urine Creatinine Crossmatch 08/17/21 08/17/21 08/17/21 17:20 21:23 Unknown WBC RBC 2.49 L Hgb 7.5 L Hct 22.2 L RDW 16.5 H Lymph % (Auto) Lymph # (Auto) [place] # (Auto) Seg Neutrophils % Seg Neuts % (Manual) Lymphocytes % (Manual) Nucleated RBC % Seg Neutrophils # Seg Neutrophils # Man Lymphocytes # (Manual) Monocytes # (Manual) D-Dimer ABG pH 7.337 L POC ABG pCO2 POC ABG pO2 ABG pO2 122.5 H ABG Hemoglobin 7.6 L ABG Oxyhemoglobin ABG Sodium ABG Potassium ABG Chloride ABG Glucose Carboxyhemoglobin Sodium Potassium Chloride Carbon Dioxide BUN Creatinine Glucose POC Glucose 106 H Lactic Acid Calcium Magnesium AST ALT Total Protein Albumin Arterial Blood Glucose Arterial Blood Ionized Calcium Urine WBC (Auto) Urine Creatinine Crossmatch 08/17/21 08/18/21 08/18/21 Unknown 00:04 05:10 WBC RBC 2.65 L Hgb 7.9 L Hct 23.7 L RDW 17.0 H Lymph % (Auto) Lymph # (Auto) [place] # (Auto) Seg Neutrophils % Seg Neuts % (Manual) Lymphocytes % (Manual) Nucleated RBC % Seg Neutrophils # Seg Neutrophils # Man Lymphocytes # (Manual) Monocytes # (Manual) D-Dimer ABG pH POC ABG pCO2 POC ABG pO2 ABG pO2 ABG Hemoglobin ABG Oxyhemoglobin ABG Sodium ABG Potassium ABG Chloride ABG Glucose Carboxyhemoglobin Sodium Potassium Chloride Carbon Dioxide BUN 37 H Creatinine Glucose 117 H POC Glucose 107 H Lactic Acid Calcium Magnesium AST ALT Total Protein Albumin Arterial Blood Glucose Arterial Blood Ionized Calcium Urine WBC (Auto) Urine Creatinine Crossmatch 08/18/21 08/18/21 08/18/21 05:10 05:10 05:40 WBC RBC Hgb Hct RDW Lymph % (Auto) Lymph # (Auto) [place] # (Auto) Seg Neutrophils % Seg Neuts % (Manual) Lymphocytes % (Manual) Nucleated RBC % Seg Neutrophils # Seg Neutrophils # Man Lymphocytes # (Manual) Monocytes # (Manual) D-Dimer ABG pH POC ABG pCO2 POC ABG pO2 ABG pO2 ABG Hemoglobin ABG Oxyhemoglobin ABG Sodium ABG Potassium ABG Chloride ABG Glucose Carboxyhemoglobin Sodium 136 L Potassium Chloride Carbon Dioxide BUN 41 H Creatinine Glucose 122 H POC Glucose 122 H Lactic Acid Calcium Magnesium AST ALT Total Protein Albumin Arterial Blood Glucose Arterial Blood Ionized Calcium Urine WBC (Auto) Urine Creatinine Crossmatch See Detail 08/18/21 08/18/21 08/18/21 11:47 18:21 23:53 WBC RBC Hgb Hct RDW Lymph % (Auto) Lymph # (Auto) [place] # (Auto) Seg Neutrophils % Seg Neuts % (Manual) Lymphocytes % (Manual) Nucleated RBC % Seg Neutrophils # Seg Neutrophils # Man Lymphocytes # (Manual) Monocytes # (Manual) D-Dimer ABG pH POC ABG pCO2 POC ABG pO2 ABG pO2 ABG Hemoglobin ABG Oxyhemoglobin ABG Sodium ABG Potassium ABG Chloride ABG Glucose Carboxyhemoglobin Sodium Potassium Chloride Carbon Dioxide BUN Creatinine Glucose POC Glucose 126 H 110 H 114 H Lactic Acid Calcium Magnesium AST ALT Total Protein Albumin Arterial Blood Glucose Arterial Blood Ionized Calcium Urine WBC (Auto) Urine Creatinine Crossmatch 08/19/21 08/19/21 08/19/21 03:20 03:20 05:21 WBC RBC 2.74 L Hgb 8.5 L Hct 24.8 L RDW 16.8 H Lymph % (Auto) Lymph # (Auto) [place] # (Auto) Seg Neutrophils % Seg Neuts % (Manual) Lymphocytes % (Manual) Nucleated RBC % Seg Neutrophils # Seg Neutrophils # Man Lymphocytes # (Manual) Monocytes # (Manual) D-Dimer ABG pH POC ABG pCO2 POC ABG pO2 ABG pO2 ABG Hemoglobin ABG Oxyhemoglobin ABG Sodium ABG Potassium ABG Chloride ABG Glucose Carboxyhemoglobin Sodium 133 L Potassium Chloride Carbon Dioxide BUN 40 H Creatinine Glucose 110 H POC Glucose 107 H Lactic Acid Calcium Magnesium AST ALT Total Protein Albumin Arterial Blood Glucose Arterial Blood Ionized Calcium Urine WBC (Auto) Urine Creatinine Crossmatch 08/19/21 11:41 WBC RBC Hgb Hct RDW Lymph % (Auto) Lymph # (Auto) [place] # (Auto) Seg Neutrophils % Seg Neuts % (Manual) Lymphocytes % (Manual) Nucleated RBC % Seg Neutrophils # Seg Neutrophils # Man Lymphocytes # (Manual) Monocytes # (Manual) D-Dimer ABG pH POC ABG pCO2 POC ABG pO2 ABG pO2 ABG Hemoglobin ABG Oxyhemoglobin ABG Sodium ABG Potassium ABG Chloride ABG Glucose Carboxyhemoglobin Sodium Potassium Chloride Carbon Dioxide BUN Creatinine Glucose POC Glucose 124 H Lactic Acid Calcium Magnesium AST ALT Total Protein Albumin Arterial Blood Glucose Arterial Blood Ionized Calcium Urine WBC (Auto) Urine Creatinine Crossmatch Chest x-ray: pending Allied health notes reviewed: nursing
--- NOTE | 2021-08-19 13:13 | Hem/Onc Progress Note ---
Subjective Interval history: Interval history: oncology f/u cpt 36247 dx metastatic breast cancer 66yo woman with h/o metastatic breast cancer affecting lungs bronchoscopy biopsy-->carcinoma c/w breast primary, ER/WI/H2N neg, TTf1 neg s/p trach and pg tube 08/10/21-->intervention for bleeding at Trach 08/12/21 has been on minimal oxygen, but still requiring sedation has had arrythmia yesterday called [facility], pt's , to explain diagnosis and poor prognosis talked to pt's nurse today--still not able to stop sedation because she is too agitated IMP: metastatic breast cancer with lung and mediastinal LN mets recent L leg prox DVT-on lovenox "full dose" bid for weeks not a good candidate for chemotherapy, but chest tumor radiation may be possible s/p tracheostomy and PG tube 08/10/21 unable to safely stop sedation so far mod severe anemia partly due to recent bleeding REC: discussing transfer to LT[facility]; consider transfer to [facility] I have tried to contact her oncologist Dr. Wade low dose lovenox 40mg daily end of life discussion is appropriate, even though she has received aggressive interventions Laboratory Last Values WBC 5.8 K/mm3 (4.5-11.0) 08/19/21 03:20 Hgb 8.5 gm/dl (10.1-14.3) L 08/19/21 03:20 Hct 24.8 % (30.3-42.9) L 08/19/21 03:20 Plt Count 268 K/mm3 (140-440) 08/19/21 03:20 Crossmatch See Detail 08/18/21 05:10 Objective - Constitutional Vitals: Last Vital Signs Temp 98.1 F 08/19/21 12:00 Pulse 110 H 08/19/21 12:12 Resp 13 08/19/21 10:15 BP 193/85 08/19/21 12:12 Pulse Ox 96 08/19/21 10:58 - Labs Lab Results: Laboratory Results - last 24 hr 08/18/21 08/18/21 08/19/21 18:21 23:53 03:20 WBC 5.8 RBC 2.74 L Hgb 8.5 L Hct 24.8 L MCV 90 MCH 31 MCHC 34 RDW 16.8 H Plt Count 268 Sodium Potassium Chloride Carbon Dioxide Anion Gap BUN Creatinine Estimated GFR BUN/Creatinine Ratio Glucose POC Glucose 110 H 114 H Calcium 08/19/21 08/19/21 08/19/21 03:20 05:21 11:41 WBC RBC Hgb Hct MCV MCH MCHC RDW Plt Count Sodium 133 L Potassium 4.2 Chloride 99.4 Carbon Dioxide 23 Anion Gap 15 BUN 40 H Creatinine 0.7 Estimated GFR > 60 BUN/Creatinine Ratio 57 Glucose 110 H POC Glucose 107 H 124 H Calcium 8.7 Medications & Allergies - Medications Allergies/Adverse Reactions: Allergies No Known Allergies Allergy (Verified 12/24/18 11:45) Home Medications: Home Medications Medication Instructions Recorded Confirmed Last Taken Type traMADoL [Ultram 50 MG tab] 50 mg PO Q6HR PRN #15 tablet 01/25/18 Unknown Rx Active Medications: Generic Name Dose Route Start Last Admin Trade Name Freq PRN Reason Stop Dose Admin Acetaminophen 650 mg 07/28/21 02:11 08/18/21 22:02 Acetaminophen 325 Mg Tab PO 650 mg Q6H PRN Administration Pain MILD(1-3)/Fever >100.5/GARCIA Albuterol/Ipratropium 1 ampul 07/28/21 14:00 08/19/21 09:27 Ipratropium/Albuterol Sulfate 3 Ml Ampul.Neb IH Not Given TID DEMIAN Lipase/Protease/Amylase 1 each 07/29/21 13:01 Lipase 10,500/Protease 25,000/Amylase 43,750 (Units) Dr Campoverde FEEDTUBE PRN PRN For Clogged Feeding Tube Arformoterol Tartrate 15 mcg 07/28/21 20:00 08/19/21 09:07 Arformoterol 15 Mcg/2 Ml Nebu IH 15 mcg Q12HRT DEMIAN Administration Bisacodyl 10 mg 08/07/21 09:50 08/16/21 18:32 Bisacodyl 10 Mg Rect Supp WI 10 mg QDAY PRN Administration Constip unreliev by MOM/or NPO Budesonide 0.5 mg 07/28/21 20:00 08/19/21 09:07 Budesonide 0.5 Mg/2 Ml Nebu IH 0.5 mg Q12HRT DEMIAN Administration Dextrose 50 ml 07/28/21 02:11 08/10/21 18:05 Dextrose 50% In Water (25gm) 50 Ml Syringe IV 20 ml Q30MIN PRN Administration Hypoglycemia Protocol Enoxaparin Sodium 40 mg 08/19/21 10:00 08/19/21 09:15 Enoxaparin 40 Mg/0.4 Ml Inj SUB-Q 40 mg QDAY DEMIAN Administration Protocol Famotidine 20 mg 08/15/21 10:00 08/19/21 09:15 Famotidine 20 Mg Tab FEEDTUBE 20 mg BID DEMIAN Administration Fentanyl 50 mcg 07/29/21 10:42 08/04/21 09:05 Fentanyl 100 Mcg/2 Ml Inj IV 50 mcg Q10MIN PRN Administration ANALGESIA Hydralazine HCl 10 mg 07/30/21 14:52 08/19/21 12:12 Hydralazine 20 Mg/1 Ml Inj IV 10 mg Q6H PRN Administration SBP > 165 Hydrophilic Ointment 1 applic 07/29/21 10:42 Lip Therapy Vaseline TP Q2HR PRN Dry Lips Fentanyl Citrate 2,000 mcg in 100 mls @ 5.35 mls/hr 07/29/21 11:00 08/19/21 09:27 Fentanyl Drip Premix IV 4 mcg/kg/hr TITR DEMIAN 21.4 mls/hr Titration Protocol 1 MCG/KG/HR Norepinephrine 4 mg in 250 mls @ 7.5 mls/hr 07/29/21 21:00 Levophed Drip 4 Mg/Ns 250 Ml IV TITR DEMIAN Protocol 2 MCG/MIN Propofol 1,000 mg in 100 mls @ 3.21 mls/hr 08/17/21 16:00 08/19/21 12:37 Diprivan 10 Mg/Ml IV 30 mcg/kg/min TITR DEMIAN 19.26 mls/hr Titration Protocol 5 MCG/KG/MIN Insulin Human Lispro 0 unit 07/29/21 12:00 08/19/21 12:28 Insulin Lispro 100 Unit/Ml SUB-Q Not Given Q6HR [facility] Protocol Magnesium Hydroxide 30 ml 07/28/21 02:11 Magnesium Hydroxide (Mom) Oral Liqd Udc PO Q4H PRN Constipation Multi-Ingred Cream/Lotion/Oil/Oint 1 applic 07/29/21 10:42 Mineral Oil/Petrolatum, White Ophth Oint 3.5 Gm OU Q4HR PRN Dry Eye(s) Oxycodone HCl 5 mg 08/18/21 15:45 08/18/21 21:58 Oxycodone 5 Mg Tab PO 5 mg Q4H PRN Administration Pain, Moderate (4-6) Polyethylene Glycol 17 gm 08/11/21 16:00 08/19/21 09:15 Polyethylene Glycol 3350 17 Gm Powder PO 17 gm QDAY DEMIAN Administration Quetiapine Fumarate 100 mg 08/16/21 13:49 08/19/21 09:15 Quetiapine 100 Mg Tab PO 100 mg BID DEMIAN Administration Senna/Docusate Sodium 1 tab 08/11/21 13:00 08/19/21 12:49 Sennosides/Docusate Sodium 8.6/50 Mg Tab FEEDTUBE 1 tab Q8H DEMIAN Administration Simple Syrup 15 ml 07/29/21 13:01 Simple Syrup 15 Ml FEEDTUBE PRN PRN Hypoglycemia Simple Syrup 30 ml 07/29/21 13:01 Simple Syrup 15 Ml FEEDTUBE PRN PRN Hypoglycemia Sodium Bicarbonate 325 mg 07/29/21 13:01 Sodium Bicarbonate 325 Mg Tab FEEDTUBE PRN PRN For Clogged Feeding Tube Sodium Chloride 10 ml 07/28/21 10:00 08/19/21 09:16 Sodium Chloride 0.9% 10 Ml Flush Syringe IV 10 ml BID DEMIAN Administration Sodium Chloride 10 ml 07/28/21 02:05 Sodium Chloride 0.9% 10 Ml Flush Syringe IV PRN PRN LINE FLUSH
--- NOTE | 2021-08-19 13:14 | XRay Report ---
CHEST 1 VIEW INDICATION / CLINICAL INFORMATION: R. Lung Atelectasis. COMPARISON: 08/18/2021 FINDINGS: SUPPORT DEVICES: Tracheostomy tube and left PICC line remain in stable and satisfactory position. HEART / MEDIASTINUM: No significant abnormality. LUNGS / PLEURA: Known right hilar/lung mass is again noted. Diffusely noted right midlung atelectasis /airspace disease appears to be improving. Additionally there is mild interstitial pulmonary edema. L eft lung is grossly clear. No pneumothorax. ADDITIONAL FINDINGS: No significant additional findings. IMPRESSION: 1. Improving right midlung parenchymal disease. Signer Name: Adelaide Ruiz MD Signed: 08/19/2021 1:09 PM Workstation Name: [id number]
--- NOTE | 2021-08-19 17:18 | Progress Note ---
<ADAMS LOVELACE - Last Filed: 08/19/21 18:44> Assessment and Plan Assessment and plan: 66-year-old female with PmHx of HTN, DM, HLD, COPD, ex-smoker, breast CA s/p Rt. mastectomy, now with metastatic to the lung. Initially admitted for acute hypoxic respiratory failure, COPD exacerbation, pneumonia and left lower leg DVT , coded on 07/29 and was transferredn to ICU . Patient is s/p tracheostomy and PEGTube insertion, currently vent dependent/ failed multiples CPAP trial Hospital Course to date: 07/29/2021. Patient seen this morning with Shabbir-Chavira respiration/agonal breathing. RENEE ABREU was called and patient was intubated and placed on mechanical ventilation. Patient transferred to ICU. Critical care/pulmonary consulted. Patient currently with AC mode rate of 30, FiO2 100%, PEEP of 12. Continue IV antibiotics. Consult ID and oncology for further evaluation. Pat ient will likely need bronchoscopy for further evaluation of the lung mass. Doppler ultrasound revealedLLE DVT. Start anticoagulation. 07/30/2021. Patient appears much improved and more responsive this morning. Patient currently with AC mode ventilation rate of 24, tidal volume 450, PEEP of 8 and FiO2 35%. Spontaneous breathing trials with possible extubation today per pulmonary. Bronchoscopy per pulmonary. Continue Lovenox twice daily for DVT. Continue IV antibiotics for sepsis/pneumonia. ID consultation pending. Follow- up CE[facility], CA 15-3, [place] 2729. 07/31/2021. Echocardiogram reveals left ventricular size and function are normal. EF 50 to 55% with mild diastolic dysfunction. Patient currently with CPAP/PSV trial 11/02. Anticipate extubation today per pulmonary. Bronchoscopy per pulmo nary. Continue Lovenox twice daily for DVT. Continue IV antibiotics for sepsis/pneumonia. ID consultation pending. Follow-up CEA, CA 15-3, CA 2729. 08/01: ALIYAH 08/02: Patient had a bronchoscopy today. Cell count, cytology and AFB sent from samples. Patient remains sedated on fentanyl and Versed. Patient and daughter Rosana were updated. 08/03: [facility] follow-up on [facility] specimens and was informed patient specimens indicate cancer. Communicated to Dr. Abbott and he stated he will update family. 08/04: Patient remains sedated on fentanyl and Versed, patient has moments of agitation with any stimulation. CPAP trial unable to be completed today due to agitation. 08/05: Patient had low urine output overnight and Elizabeth catheter was changed this a.m. with 2 L of urine output received. Patient did have a increase in creatinine however this may have been obstructive process and nephrology is aware. Hematology/oncology spoke to family who wishes for everything to be done despite bronchial washings with cancer cells. [facility] contacted patient's oncologist to help facilitate transfer. We attempted to hold sedation for CPAP trial however patient became extremely agitated and sedation was restarted. 08/06: Surgery consulted for possible trach. Leukocytosis and renal function slowly improving. No acute events reported overnight. 08/07: Creatinine continues to decrease, patient has slight hyper natremia and hyperchloremia. Patient remains on fentanyl and Versed with periods of agita tion. Increasing free water flushes. 08-08 improving cr; febrile; family wants full care/full code- heme onc following 08-09 LOW GRADE FEVERS; FOR TRACH/PEG 08/10: Patient seen and examined, had Bronchoscopy and Trach and PEG today, follow report. Continue supportive care. 08/11: Patient remains on full vent support. Continue supportive care. 08/12: This morning patient noted with bleeding around trach surgery consulted going for emergent surgery. Labs ordered 08/13: Patient seen and examined, no further bleeding, had surgical intervention yesterday for trach site bleeding. No further bleeding this am. Patient otherwise remains on mechanical ventilation. Leukocytosis mildly worsened today this could be reactive has no fever will monitor mental status is still severely encephalopathic. 08/14/21 patient seen and examined. Lab and medication reviewed. No further bleeding from track site. Hemoglobin is 8.1. Hematocrit 24.2 and WBC 9.7. Continue current management and supportive care. Recheck CBC CMP in the morning 08/15: Overnight patient experienced sinus pericardia with return, will receive MiraLAX and CPAP trial today. 08/16: CPAP trial failed today. 08/17: given ducloax suppository today 08/18: failed cpap today as she became bradycardiac. able to follow simple comma nds. update today by phone. See note for details. Ltach referral sent 08/19- Patient is trached and on the vent, sedated with propofol and fentanyl. Attempted SAT today did not tolerated it, so no SBT trial today due to increased agitation and patient required more sedation to reach RASS goal -3 to -4. No documented BM document, PRN MOM administered, continue BR. Continue to monitor renal function, H&H, and electrolytes. AM labs ordered. #Neuro: Acute metabolic encephalopathy, agitation - Sedated with fentanyl and propof gtt - Titrate gtts for RASS goal of -2 to -3 - SAT attempted today, patient did not tolerated due to increase agitation - Avoid delirium- On Seroquel - Bilateral restraints for safety #Cardio: Sinus Tachycardia #s/p cardiac arrest #LLE DVT #H/o HTN & HLD - 07/29- Echocardiogram completed-> EF 50 to 55% with mild diastolic dysfunction - ST- HR as high as 120 possible to agitation/under-sedated, improved once pa tient target RASS was reached - Continue to monitor blood pressure, MAP goal> 65 and SBP<165 - PRN Hydralazine for SBP>165 - Continue AC- Lovenox Qday #Respiratory: Acute hypoxemic respiratory failure 2/2 Lung mass/CA #COPD exacerbation - 08/10 S/P Tracheostomy - Vent setting: AC 30%,8,12,450 - Today ABG noted d/w CCM - Vent dependent/ unable to wean off vent due to multiple failed trials vazquez down in the 30s - No SBT trial today due to increased agitation and patient required more sedation to reach RASS goal -3 to -4 - VAP bundle addressed - Aspiration precaution; keep HOB elevated> 45 degree - Continue to assess for Daily SBT and SAT trials as tolerated - Continue SPO2 monitoring for SPO2 goal greater than 90% - Continue daily ABG per CCM #GI: Contipation - 08/10 s/p PEGTube insertion - 08/17 KUB: moderate amount of fecal material throughout theh colon - No BM documented in last 48hrs - Continue enteral nutrition- TF at goal, FWF 100ml Q4h - PRN MOM given 08/19 - Continue bowel regimen: Miralax, senokot, and PRN Ducolax & MOM for co nstipation - Continue PPI- Pepcid #: Acute kidney injury likely 2/2 vasomotor nephropathy/pre-renal #Hyperchloremia- improved # mild Hyponatremia - 08/01 FeNA 0.13 - 08/19 Bun 40, Cr. 0.7, Na 133, Cl 99.4 - Continue to monitor renal function - Continue to monitor electrolytes, replaced if necessary - Continue Strict intake and output - Elizabeth in place- net + 800ml in last 24hrs - Continue to avoid nephrotoxins, renally dose all medications - Nephrology on consult, appreciate recommendations #ID: Acute sepsis possibly due to PNA vs cardiac event- Resolved - 07/27 B.Cultx2:neg, 07/29 tracheal aspirate:neg, 08/02 Urine cult: neg, 08/08 repeat B.CultX2: neg - Afebrile, TMAX 99, WBCs 5.8 - No longer on IV ABx - ID signed off - Continue to monitor for s/s of infectious process - Daily CBC and BMP #Heme/Onc: H/o breast carcinoma with metastasis to lungs #LLE DVT #Acute Blood loss- resolved - 08/12 Bronchocopy biopsy- result confirm carcinoma c/w breast primary - 08/12 emergent procedure at trach site due to hemorrhage - H&H has been stable 8.5/24.8 - Continue AC- Lovenox - SCDs to bilateral lower extremities while in bed - Heme/Onc on Consult - Per Heme/Onc patient is "not a good candidate for chemotherapy, but chest tumor radiation may be possible" #Endo: Hyperglycemia, H/o DM - Continue SSI for a Target blood glucose of 140-180 - Avoid hypoglycemia #Advance care planning - Team has been discussing plan of care with Patient's , Femi. - Plan to discharge to LTACH, case management to arrange The high probability of a clinically significant, sudden or life threatening deterioration of the [multi] system(s) required my full and direct attention, intervention and personal management. The aggregate critical care time was [60] minutes. This time is in addition to time spent performing reported procedures but includes the following: [x] Data Review and interpretation [x] Patient assessment and monitoring of vital signs [x] Documentation [x] Medication orders and management Disposition Plan: ICU Total Time Spent with Patient (Minutes): 60 History Interval history: Patient seen and examined at the bedside. Patient is trached and on the vent, sedated with propofol and fentanyl. Attempted SAT today did not tolerated it, so no SBT trial today due to increased agitation and patient required more sedation to reach RASS goal -3 to -4. Patient moved all extremities but does not follow any commands. No significant events overnigt Hospitalist Physical - Constitutional Vitals: Temp Pulse Resp BP Pulse Ox 99 F 81 12 95/61 96 08/19/21 16:00 08/19/21 17:00 08/19/21 17:00 08/19/21 17:00 08/19/21 17:00 General appearance: Present: mild distress (due to increased agitation) - EENT Eyes: Present: PERRL - Respiratory Respiratory effort: normal Respiratory: bilateral: wheezing - Cardiovascular Rhythm: regular Heart Sounds: Present: S1 & S2 - Extremities Extremities: pulses intact, pulses symmetrical Extremity abnormal: edema - Peripheral Assessment Generalized Edema Type: Non-pitting Edema Degree: 1+ Capillary Refill: < 3 seconds Skin Temperature: Warm - Abdominal General gastrointestinal: soft, non-tender, non-distended, normal bowel sounds - Integumentary Integumentary: Present: warm, dry - Psychiatric Psychiatric: agitated - Neurologic Neurologic: moves all extremities - Allied Health Allied health notes reviewed: nursing Results - Labs CBC & Chem 7: 08/19/21 03:20 08/19/21 03:20 Labs: Laboratory Last Values WBC 5.8 K/mm3 (4.5-11.0) 08/19/21 03:20 RBC 2.74 M/mm3 (3.65-5.03) L 08/19/21 03:20 Hgb 8.5 gm/dl (10.1-14.3) L 08/19/21 03:20 Hct 24.8 % (30.3-42.9) L 08/19/21 03:20 MCV 90 fl (79-97) 08/19/21 03:20 MCH 31 pg (28-32) 08/19/21 03:20 MCHC 34 % (30-34) 08/19/21 03:20 RDW 16.8 % (13.2-15.2) H 08/19/21 03:20 Plt Count 268 K/mm3 (140-440) 08/19/21 03:20 Lymph % (Auto) 12.5 % (13.4-35.0) L 08/15/21 Unknown [place] % (Auto) 5.9 % (0.0-7.3) 08/15/21 Unknown Eos % (Auto) 0.9 % (0.0-4.3) 08/15/21 Unknown Baso % (Auto) 0.3 % (0.0-1.8) 08/15/21 Unknown Lymph # (Auto) 1.0 K/mm3 (1.2-5.4) L 08/15/21 Unknown [place] # (Auto) 0.5 K/mm3 (0.0-0.8) 08/15/21 Unknown Eos # (Auto) 0.1 K/mm3 (0.0-0.4) 08/15/21 Unknown Baso # (Auto) 0.0 K/mm3 (0.0-0.1) 08/15/21 Unknown Add Manual Diff Complete 08/05/21 04:50 Total Counted 100 08/05/21 04:50 Seg Neutrophils % 80.4 % (40.0-70.0) H 08/15/21 Unknown Seg Neuts % (Manual) 75.0 % (40.0-70.0) H 08/05/21 04:50 Band Neutrophils % 8.0 % 08/05/21 04:50 Lymphocytes % (Manual) 2.0 % (13.4-35.0) L 08/05/21 04:50 Monocytes % (Manual) 5.0 % (0.0-7.3) 08/05/21 04:50 Eosinophils % (Manual) 1.0 % (0.0-4.3) 08/05/21 04:50 Metamyelocytes % 6.0 % 08/05/21 04:50 Myelocytes % 3.0 % 08/05/21 04:50 Nucleated RBC % Not Reportable 08/05/21 04:50 Seg Neutrophils # 6.4 K/mm3 (1.8-7.7) 08/15/21 Unknown Seg Neutrophils # Man 14.3 K/mm3 (1.8-7.7) H 08/05/21 04:50 Band Neutrophils # 1.5 K/mm3 08/05/21 04:50 Lymphocytes # (Manual) 0.4 K/mm3 (1.2-5.4) L 08/05/21 04:50 Abs React Lymphs (Man) 0.0 K/mm3 08/05/21 04:50 Monocytes # (Manual) 1.0 K/mm3 (0.0-0.8) H 08/05/21 04:50 Eosinophils # (Manual) 0.2 K/mm3 (0.0-0.4) 08/05/21 04:50 Basophils # (Manual) 0.0 K/mm3 (0.0-0.1) 08/05/21 04:50 Metamyelocytes # 1.1 K/mm3 08/05/21 04:50 Myelocytes # 0.6 K/mm3 08/05/21 04:50 Promyelocytes # 0.0 K/mm3 08/05/21 04:50 Blast Cells # 0.0 K/mm3 08/05/21 04:50 WBC Morphology Not Reportable 08/05/21 04:50 Hypersegmented Neuts Not Reportable 08/05/21 04:50 Hyposegmented Neuts Not Reportable 08/05/21 04:50 Hypogranular Neuts Not Reportable 08/05/21 04:50 Smudge Cells Not Reportable 08/05/21 04:50 Toxic Granulation Not Reportable 08/05/21 04:50 Toxic Vacuolation Not Reportable 08/05/21 04:50 Dohle Bodies Not Reportable 08/05/21 04:50 Pelger-Huet Anomaly Not Reportable 08/05/21 04:50 Beryl Rods Not Reportable 08/05/21 04:50 Platelet Estimate Consistent w auto 08/05/21 04:50 Clumped Platelets Not Reportable 08/05/21 04:50 Plt Clumps, EDTA Not Reportable 08/05/21 04:50 Large Platelets Not Reportable 08/05/21 04:50 Giant Platelets Not Reportable 08/05/21 04:50 Platelet Satelliting Not Reportable 08/05/21 04:50 Plt Morphology Comment Not Reportable 08/05/21 04:50 RBC Morphology Not Reportable 08/05/21 04:50 Dimorphic RBCs Not Reportable 08/05/21 04:50 Polychromasia Not Reportable 08/05/21 04:50 Hypochromasia Not Reportable 08/05/21 04:50 Poikilocytosis Not Reportable 08/05/21 04:50 Anisocytosis Not Reportable 08/05/21 04:50 Microcytosis Not Reportable 08/05/21 04:50 Macrocytosis Not Reportable 08/05/21 04:50 Spherocytes Not Reportable 08/05/21 04:50 Pappenheimer Bodies Not Reportable 08/05/21 04:50 Sickle Cells Not Reportable 08/05/21 04:50 Target Cells Not Reportable 08/05/21 04:50 Tear Drop Cells Not Reportable 08/05/21 04:50 Ovalocytes Few 08/05/21 04:50 Helmet Cells Not Reportable 08/05/21 04:50 [place] Bodies Not Reportable 08/05/21 04:50 [place] Rings Not Reportable 08/05/21 04:50 Estelita Cells Not Reportable 08/05/21 04:50 Bite Cells Not Reportable 08/05/21 04:50 Crenated Cell Not Reportable 08/05/21 04:50 Elliptocytes Not Reportable 08/05/21 04:50 Acanthocytes (Spur) Not Reportable 08/05/21 04:50 Rouleaux Not Reportable 08/05/21 04:50 Hemoglobin C Crystals Not Reportable 08/05/21 04:50 Schistocytes Not Reportable 08/05/21 04:50 Malaria parasites Not Reportable 08/05/21 04:50 Gurmeet Bodies Not Reportable 08/05/21 04:50 Hem Pathologist Commnt No 08/05/21 04:50 PT 14.5 Sec. (12.2-14.9) 08/12/21 21:41 INR 1.08 (0.87-1.13) 08/12/21 21:41 APTT 29.9 Sec. (24.2-36.6) 08/10/21 05:20 D-Dimer 852.47 ng/mlDDU (0-234) H 07/29/21 07:17 ABG pH 7.401 (7.320-7.450) 08/19/21 13:45 POC ABG pCO2 39.8 mmHg (32.0-48.0) 08/19/21 13:45 ABG pCO2 46.6 mm Hg 08/17/21 21:23 POC ABG pO2 145.3 mmHg (83-108) H 08/19/21 13:45 ABG pO2 122.5 mm Hg (80.0-90.0) H 08/17/21 21:23 POC ABG HCO3 24.2 08/19/21 13:45 ABG HCO3 24.4 mmol/L (20.0-26.0) 08/17/21 21:23 ABG O2 Saturation 99.0 (0-100) 08/19/21 13:45 ABG O2 Content 10.6 (0.0-44) 08/17/21 21:23 POC ABG Base Excess -0.5 08/19/21 13:45 ABG Base Excess -1.4 mmol/L (-2.0-3.0) 08/17/21 21:23 ABG Hemoglobin 10.0 (12.0-17.5) L 08/19/21 13:45 ABG Oxyhemoglobin 98.4 (94-98) H 08/19/21 13:45 ABG Carboxyhemoglobin 1.8 % (0.0-5.0) 08/17/21 21:23 ABG Methemoglobin 0.3 (0.0-1.5) 08/19/21 13:45 ABG Sodium 134.0 mmol/L (136.0-145.0) L 08/19/21 13:45 ABG Potassium 4.2 mmol/L (3.40-4.50) 08/19/21 13:45 ABG Chloride 102.0 mmol/L (98-107) 08/19/21 13:45 ABG Glucose 141 mg/dL (65-95) H 08/19/21 13:45 Oxyhemoglobin 96.2 % (95.0-99.0) 08/17/21 21:23 Carboxyhemoglobin 0.3 (0.5-1.5) L 08/19/21 13:45 FiO2 30 % 08/17/21 21:23 FiO2 % 30.0 08/19/21 13:45 Sodium 133 mmol/L (137-145) L 08/19/21 03:20 Potassium 4.2 mmol/L (3.6-5.0) 08/19/21 03:20 Chloride 99.4 mmol/L (98-107) 08/19/21 03:20 Carbon Dioxide 23 mmol/L (22-30) 08/19/21 03:20 Anion Gap 15 mmol/L 08/19/21 03:20 BUN 40 mg/dL (7-17) H 08/19/21 03:20 Creatinine 0.7 mg/dL (0.6-1.2) 08/19/21 03:20 Estimated GFR > 60 ml/min 08/19/21 03:20 BUN/Creatinine Ratio 57 % 08/19/21 03:20 Glucose 110 mg/dL (65-100) H 08/19/21 03:20 POC Glucose 124 mg/dL (70-105) H 08/19/21 11:41 Lactic Acid 2.10 mmol/L (0.7-2.0) H* 08/03/21 15:11 Calcium 8.7 mg/dL (8.4-10.2) 08/19/21 03:20 Phosphorus 4.10 mg/dL (2.5-4.5) 08/08/21 06:00 Magnesium 1.70 mg/dL (1.7-2.3) 08/12/21 21:41 Total Bilirubin 0.40 mg/dL (0.1-1.2) 08/15/21 Unknown AST 40 units/L (5-40) 08/15/21 Unknown ALT 63 units/L (7-56) H 08/15/21 Unknown Alkaline Phosphatase 102 units/L (35-129) 08/15/21 Unknown Total Protein 5.5 g/dL (6.3-8.2) L 08/15/21 Unknown Albumin 2.4 g/dL (3.9-5) L 08/15/21 Unknown Albumin/Globulin Ratio 0.8 % 08/15/21 Unknown Carcinoembryonic Ag <0.5 ng/mL (0.0-2.4) 07/31/21 04:45 Arterial Blood Glucose 141 mg/dL (65-95) H 08/19/21 13:45 Arterial Blood Ionized Calcium 4.6 mg/dL (4.6-5.3) 08/17/21 07:27 Urine Color Yellow (Yellow) 08/08/21 20: Urine Turbidity Slightly-cloudy (Clear) 08/08/21 20: Urine pH 5.0 (5.0-7.0) 08/08/21 20: Ur Specific [place] 1.014 (1.003-1.030) 08/08/21 20:27 Urine Protein 30 mg/dl mg/dL (Negative) 08/08/21 20: Urine Glucose (UA) Neg mg/dL (Negative) 08/08/21 20:27 Urine Ketones Neg mg/dL (Negative) 08/08/21 20:27 Urine Blood Mod (Negative) 08/08/21 20:27 Urine Nitrite Neg (Negative) 08/08/21 20:27 Urine Bilirubin Neg (Negative) 08/08/21 20:27 Urine Urobilinogen < 2.0 mg/dL (<2.0) 08/08/21 20:27 Ur Leukocyte Esterase Neg (Negative) 08/08/21 20:27 Urine WBC (Auto) 6.0 /HPF (0.0-6.0) 08/08/21 20: Urine RBC (Auto) 6.0 /HPF (0.0-6.0) 08/08/21 20:27 U Epithel Cells (Auto) < 1.0 /HPF (0-13.0) 08/08/21 20: Urine Bacteria (Auto) 1+ /HPF (Negative) 08/08/21 20:27 Urine Mucus Few /HPF 08/08/21 20:27 Urine Yeast (Budding) 1+ /HPF 08/08/21 20:27 Urine Creatinine 125.6 mg/dL (0.1-20.0) H 08/01/21 Unknown Urine Sodium 12 mmol/L 08/01/21 Unknown Double Strand DNA Ab 1 IU/mL (<=4) 08/02/21 15:40 Coronavirus (PCR) Negative (Negative) 07/29/21 07:58 Hepatitis A IgM Ab Non-reactive (NonReactive) 08/02/21 15:40 Hep Bs Antigen Nonreactive (Negative) 08/02/21 15:40 Hep B Core IgM Ab Non-reactive (NonReactive) 08/02/21 15:40 Hepatitis C Antibody Non-reactive (NonReactive) 08/02/21 15:40 AFB Identification Negative 08/02/21 14:30 Blood Type A POSITIVE 08/18/21 05:10 Antibody Screen Negative 08/18/21 05:10 Crossmatch See Detail 08/18/21 05:10 Elizabeth/IV: Voiding Method Indwelling Catheter Active Medications - Current Medications Current Medications: Generic Name Dose Route Start Last Admin Trade Name Freq PRN Reason Stop Dose Admin Acetaminophen 650 mg 07/28/21 02:11 08/18/21 22:02 Acetaminophen 325 Mg Tab PO 650 mg Q6H PRN Administration Pain MILD(1-3)/Fever >100.5/GARCIA Albuterol/Ipratropium 1 ampul 07/28/21 14:00 08/19/21 14:46 Ipratropium/Albuterol Sulfate 3 Ml Ampul.Neb IH 1 ampul TID DEMIAN Administration Lipase/Protease/Amylase 1 each 07/29/21 13:01 Lipase 10,500/Protease 25,000/Amylase 43,750 (Units) Dr Campoverde FEEDTUBE PRN PRN For Clogged Feeding Tube Arformoterol Tartrate 15 mcg 07/28/21 20:00 08/19/21 09:07 Arformoterol 15 Mcg/2 Ml Nebu IH 15 mcg Q12HRT DEMIAN Administration Bisacodyl 10 mg 08/07/21 09:50 08/16/21 18:32 Bisacodyl 10 Mg Rect Supp MI 10 mg QDAY PRN Administration Constip unreliev by MOM/or NPO Budesonide 0.5 mg 07/28/21 20:00 08/19/21 09:07 Budesonide 0.5 Mg/2 Ml Nebu IH 0.5 mg Q12HRT DEMIAN Administration Dextrose 50 ml 07/28/21 02:11 08/10/21 18:05 Dextrose 50% In Water (25gm) 50 Ml Syringe IV 20 ml Q30MIN PRN Administration Hypoglycemia Protocol Enoxaparin Sodium 40 mg 08/19/21 10:00 08/19/21 09:15 Enoxaparin 40 Mg/0.4 Ml Inj SUB-Q 40 mg QDAY DEMIAN Administration Protocol Famotidine 20 mg 08/15/21 10:00 08/19/21 09:15 Famotidine 20 Mg Tab FEEDTUBE 20 mg BID DEMIAN Administration Fentanyl 50 mcg 07/29/21 10:42 08/04/21 09:05 Fentanyl 100 Mcg/2 Ml Inj IV 50 mcg Q10MIN PRN Administration ANALGESIA Hydralazine HCl 10 mg 07/30/21 14:52 08/19/21 12:12 Hydralazine 20 Mg/1 Ml Inj IV 10 mg Q6H PRN Administration SBP > 165 Hydrophilic Ointment 1 applic 07/29/21 10:42 Lip Therapy Vaseline TP Q2HR PRN Dry Lips Fentanyl Citrate 2,000 mcg in 100 mls @ 5.35 mls/hr 07/29/21 11:00 08/19/21 13:55 Fentanyl Drip Premix IV 4 mcg/kg/hr TITR DEMIAN 21.4 mls/hr Administration Protocol 1 MCG/KG/HR Norepinephrine 4 mg in 250 mls @ 7.5 mls/hr 07/29/21 21:00 Levophed Drip 4 Mg/Ns 250 Ml IV TITR DEMIAN Protocol 2 MCG/MIN Propofol 1,000 mg in 100 mls @ 3.21 mls/hr 08/17/21 16:00 08/19/21 13:56 Diprivan 10 Mg/Ml IV 30 mcg/kg/min TITR DEMIAN 19.26 mls/hr Administration Protocol 5 MCG/KG/MIN Insulin Human Lispro 0 unit 07/29/21 12:00 08/19/21 12:28 Insulin Lispro 100 Unit/Ml SUB-Q Not Given Q6HR [facility] Protocol Magnesium Hydroxide 30 ml 07/28/21 02:11 Magnesium Hydroxide (Mom) Oral Liqd Udc PO Q4H PRN Constipation Multi-Ingred Cream/Lotion/Oil/Oint 1 applic 07/29/21 10:42 Mineral Oil/Petrolatum, White Ophth Oint 3.5 Gm OU Q4HR PRN Dry Eye(s) Oxycodone HCl 5 mg 08/18/21 15:45 08/18/21 21:58 Oxycodone 5 Mg Tab PO 5 mg Q4H PRN Administration Pain, Moderate (4-6) Polyethylene Glycol 17 gm 08/11/21 16:00 08/19/21 09:15 Polyethylene Glycol 3350 17 Gm Powder PO 17 gm QDAY DEMIAN Administration Quetiapine Fumarate 100 mg 08/16/21 13:49 08/19/21 09:15 Quetiapine 100 Mg Tab PO 100 mg BID DEMIAN Administration Senna/Docusate Sodium 1 tab 08/11/21 13:00 08/19/21 12:49 Sennosides/Docusate Sodium 8.6/50 Mg Tab FEEDTUBE 1 tab Q8H DEMIAN Administration Simple Syrup 15 ml 07/29/21 13:01 Simple Syrup 15 Ml FEEDTUBE PRN PRN Hypoglycemia Simple Syrup 30 ml 07/29/21 13:01 Simple Syrup 15 Ml FEEDTUBE PRN PRN Hypoglycemia Sodium Bicarbonate 325 mg 07/29/21 13:01 Sodium Bicarbonate 325 Mg Tab FEEDTUBE PRN PRN For Clogged Feeding Tube Sodium Chloride 10 ml 07/28/21 10:00 08/19/21 09:16 Sodium Chloride 0.9% 10 Ml Flush Syringe IV 10 ml BID DEMIAN Administration Sodium Chloride 10 ml 07/28/21 02:05 Sodium Chloride 0.9% 10 Ml Flush Syringe IV PRN PRN LINE FLUSH Nutrition/Malnutrition Assess - Dietary Evaluation Nutrition/Malnutrition Findings: Nutrition Notes Start: 07/28/21 14: 44 Freq: Status: Active Protocol: Document 08/16/21 15:09 [facility] (Rec: 08/16/21 15:16 [facility] [id number]) Nutrition Notes Initial or Follow up Reassessment Current Diagnosis Diabetes,Hypertension, Respiratory Failure, Hyperlipidemia Current Diet TF - Vital AF 1.2 at 50ml/hr Labs/Tests Na 144 Pertinent Medications Senna, Miralax, Dulcolax Height 5 ft Weight 107 kg [place] Body Weight (kg) 45.45 BMI 46.0 Weight Status Morbidly Obese Subjective/Other Information Spoke with RN via phone at 15: 08. Pt still has not had a BM . Medications given today. Pt tolerating TF at goal rate and remains on vent support. Percent of energy/protein needs met: 78% energy 79% pro Burn Absent Trauma Absent GI Symptoms Constipation #1 Nutrition Diagnosis Inadequate oral intake Diagnosis Progress(for reassessment Continues documentation) Is patient on ventilator? Yes Is Patient Ambulatory and/or Out of Bed No REE-([facility]-confined to bed) 1842.852 Kcal/Kg value to use for calculation 13 Approximate Energy Requirements Using 1391 kcal/Kg Calculation Used for Recommendations Kcal/kg Additional Notes Protein: (up to 2.5g/kg IBW) up to 114g Fluid: 1 ml/kcal or per MD Nutrition Intervention Nutrition Support: Continue Vital AF 1.2 at 50 ml /hr. Per RN, pt receiving 200ml water flush q4h. Kcal 1,440 Protein (gm) 90 Fluid (mL) 973 Goal #1 TF tolerance Goal #2 TF to meet at least 75% energy and pro needs Follow-Up By: 08/23/21 Additional Comments F/U: stable TF, BM, vent status <LINDSAY FARR - Last Filed: 08/20/21 09:37> Assessment and Plan Assessment and plan: I saw and evaluated the patient. Discussed with the nurse practitioner and agree with their findings and plan as documented in this note. Hospitalist Physical - Constitutional Vitals: Temp Pulse Resp BP Pulse Ox 98 F 84 15 121/69 100 08/20/21 04:00 08/20/21 09:34 08/20/21 09:34 08/20/21 09:05 08/20/21 09:05 Results - Labs CBC & Chem 7: 08/20/21 06:00 08/20/21 06:00 Labs: Laboratory Last Values WBC 5.1 K/mm3 (4.5-11.0) 08/20/21 06:00 RBC 2.53 M/mm3 (3.65-5.03) L 08/20/21 06:00 Hgb 8.3 gm/dl (10.1-14.3) L 08/20/21 06:00 Hct 22.6 % (30.3-42.9) L 08/20/21 06:00 MCV 89 fl (79-97) 08/20/21 06:00 MCH 33 pg (28-32) H 08/20/21 06:00 MCHC 37 % (30-34) H 08/20/21 06:00 RDW 17.0 % (13.2-15.2) H 08/20/21 06:00 Plt Count 310 K/mm3 (140-440) 08/20/21 06:00 Lymph % (Auto) 12.5 % (13.4-35.0) L 08/15/21 Unknown [place] % (Auto) 5.9 % (0.0-7.3) 08/15/21 Unknown Eos % (Auto) 0.9 % (0.0-4.3) 08/15/21 Unknown Baso % (Auto) 0.3 % (0.0-1.8) 08/15/21 Unknown Lymph # (Auto) 1.0 K/mm3 (1.2-5.4) L 08/15/21 Unknown [place] # (Auto) 0.5 K/mm3 (0.0-0.8) 08/15/21 Unknown Eos # (Auto) 0.1 K/mm3 (0.0-0.4) 08/15/21 Unknown Baso # (Auto) 0.0 K/mm3 (0.0-0.1) 08/15/21 Unknown Add Manual Diff Complete 08/05/21 04:50 Total Counted 100 08/05/21 04:50 Seg Neutrophils % 80.4 % (40.0-70.0) H 08/15/21 Unknown Seg Neuts % (Manual) 75.0 % (40.0-70.0) H 08/05/21 04:50 Band Neutrophils % 8.0 % 08/05/21 04:50 Lymphocytes % (Manual) 2.0 % (13.4-35.0) L 08/05/21 04:50 Monocytes % (Manual) 5.0 % (0.0-7.3) 08/05/21 04:50 Eosinophils % (Manual) 1.0 % (0.0-4.3) 08/05/21 04:50 Metamyelocytes % 6.0 % 08/05/21 04:50 Myelocytes % 3.0 % 08/05/21 04:50 Nucleated RBC % Not Reportable 08/05/21 04:50 Seg Neutrophils # 6.4 K/mm3 (1.8-7.7) 08/15/21 Unknown Seg Neutrophils # Man 14.3 K/mm3 (1.8-7.7) H 08/05/21 04:50 Band Neutrophils # 1.5 K/mm3 08/05/21 04:50 Lymphocytes # (Manual) 0.4 K/mm3 (1.2-5.4) L 08/05/21 04:50 Abs React Lymphs (Man) 0.0 K/mm3 08/05/21 04:50 Monocytes # (Manual) 1.0 K/mm3 (0.0-0.8) H 08/05/21 04:50 Eosinophils # (Manual) 0.2 K/mm3 (0.0-0.4) 08/05/21 04:50 Basophils # (Manual) 0.0 K/mm3 (0.0-0.1) 08/05/21 04:50 Metamyelocytes # 1.1 K/mm3 08/05/21 04:50 Myelocytes # 0.6 K/mm3 08/05/21 04:50 Promyelocytes # 0.0 K/mm3 08/05/21 04:50 Blast Cells # 0.0 K/mm3 08/05/21 04:50 WBC Morphology Not Reportable 08/05/21 04:50 Hypersegmented Neuts Not Reportable 08/05/21 04:50 Hyposegmented Neuts Not Reportable 08/05/21 04:50 Hypogranular Neuts Not Reportable 08/05/21 04:50 Smudge Cells Not Reportable 08/05/21 04:50 Toxic Granulation Not Reportable 08/05/21 04:50 Toxic Vacuolation Not Reportable 08/05/21 04:50 Dohle Bodies Not Reportable 08/05/21 04:50 Pelger-Huet Anomaly Not Reportable 08/05/21 04:50 Beryl Rods Not Reportable 08/05/21 04:50 Platelet Estimate Consistent w auto 08/05/21 04:50 Clumped Platelets Not Reportable 08/05/21 04:50 Plt Clumps, EDTA Not Reportable 08/05/21 04:50 Large Platelets Not Reportable 08/05/21 04:50 Giant Platelets Not Reportable 08/05/21 04:50 Platelet Satelliting Not Reportable 08/05/21 04:50 Plt Morphology Comment Not Reportable 08/05/21 04:50 RBC Morphology Not Reportable 08/05/21 04:50 Dimorphic RBCs Not Reportable 08/05/21 04:50 Polychromasia Not Reportable 08/05/21 04:50 Hypochromasia Not Reportable 08/05/21 04:50 Poikilocytosis Not Reportable 08/05/21 04:50 Anisocytosis Not Reportable 08/05/21 04:50 Microcytosis Not Reportable 08/05/21 04:50 Macrocytosis Not Reportable 08/05/21 04:50 Spherocytes Not Reportable 08/05/21 04:50 Pappenheimer Bodies Not Reportable 08/05/21 04:50 Sickle Cells Not Reportable 08/05/21 04:50 Target Cells Not Reportable 08/05/21 04:50 Tear Drop Cells Not Reportable 08/05/21 04:50 Ovalocytes Few 08/05/21 04:50 Helmet Cells Not Reportable 08/05/21 04:50 [place] Bodies Not Reportable 08/05/21 04:50 [place] Rings Not Reportable 08/05/21 04:50 Big Arm Cells Not Reportable 08/05/21 04:50 Bite Cells Not Reportable 08/05/21 04:50 Crenated Cell Not Reportable 08/05/21 04:50 Elliptocytes Not Reportable 08/05/21 04:50 Acanthocytes (Spur) Not Reportable 08/05/21 04:50 Rouleaux Not Reportable 08/05/21 04:50 Hemoglobin C Crystals Not Reportable 08/05/21 04:50 Schistocytes Not Reportable 08/05/21 04:50 Malaria parasites Not Reportable 08/05/21 04:50 [place] Bodies Not Reportable 08/05/21 04:50 Hem Pathologist Commnt No 08/05/21 04:50 PT 14.5 Sec. (12.2-14.9) 08/12/21 21:41 INR 1.08 (0.87-1.13) 08/12/21 21:41 APTT 29.9 Sec. (24.2-36.6) 08/10/21 05:20 D-Dimer 852.47 ng/mlDDU (0-234) H 07/29/21 07:17 ABG pH 7.401 (7.320-7.450) 08/19/21 13:45 POC ABG pCO2 39.8 mmHg (32.0-48.0) 08/19/21 13:45 ABG pCO2 46.6 mm Hg 08/17/21 21:23 POC ABG pO2 145.3 mmHg (83-108) H 08/19/21 13:45 ABG pO2 122.5 mm Hg (80.0-90.0) H 08/17/21 21:23 POC ABG HCO3 24.2 08/19/21 13:45 ABG HCO3 24.4 mmol/L (20.0-26.0) 08/17/21 21:23 ABG O2 Saturation 99.0 (0-100) 08/19/21 13:45 ABG O2 Content 10.6 (0.0-44) 08/17/21 21:23 POC ABG Base Excess -0.5 08/19/21 13:45 ABG Base Excess -1.4 mmol/L (-2.0-3.0) 08/17/21 21:23 ABG Hemoglobin 10.0 (12.0-17.5) L 08/19/21 13:45 ABG Oxyhemoglobin 98.4 (94-98) H 08/19/21 13:45 ABG Carboxyhemoglobin 1.8 % (0.0-5.0) 08/17/21 21:23 ABG Methemoglobin 0.3 (0.0-1.5) 08/19/21 13:45 ABG Sodium 134.0 mmol/L (136.0-145.0) L 08/19/21 13:45 ABG Potassium 4.2 mmol/L (3.40-4.50) 08/19/21 13:45 ABG Chloride 102.0 mmol/L (98-107) 08/19/21 13:45 ABG Glucose 141 mg/dL (65-95) H 08/19/21 13:45 Oxyhemoglobin 96.2 % (95.0-99.0) 08/17/21 21:23 Carboxyhemoglobin 0.3 (0.5-1.5) L 08/19/21 13:45 FiO2 30 % 08/17/21 21:23 FiO2 % 30.0 08/19/21 13:45 Sodium 134 mmol/L (137-145) L 08/20/21 06:00 Potassium 4.3 mmol/L (3.6-5.0) 08/20/21 06:00 Chloride 98.6 mmol/L (98-107) 08/20/21 06:00 Carbon Dioxide 23 mmol/L (22-30) 08/20/21 06:00 Anion Gap 17 mmol/L 08/20/21 06:00 BUN 42 mg/dL (7-17) H 08/20/21 06:00 Creatinine 0.6 mg/dL (0.6-1.2) 08/20/21 06:00 Estimated GFR > 60 ml/min 08/20/21 06:00 BUN/Creatinine Ratio 70 % 08/20/21 06:00 Glucose 102 mg/dL (65-100) H 08/20/21 06:00 POC Glucose 107 mg/dL (70-105) H 08/19/21 23:32 Lactic Acid 2.10 mmol/L (0.7-2.0) H* 08/03/21 15:11 Calcium 8.1 mg/dL (8.4-10.2) L 08/20/21 06:00 Phosphorus 4.10 mg/dL (2.5-4.5) 08/08/21 06:00 Magnesium 1.70 mg/dL (1.7-2.3) 08/12/21 21:41 Total Bilirubin 0.30 mg/dL (0.1-1.2) 08/20/21 06:00 AST < 5 units/L (5-40) L 08/20/21 06:00 ALT < 5 units/L (7-56) L 08/20/21 06:00 Alkaline Phosphatase 120 units/L (35-129) 08/20/21 06:00 Total Protein 4.7 g/dL (6.3-8.2) L 08/20/21 06:00 Albumin 2.2 g/dL (3.9-5) L 08/20/21 06:00 Albumin/Globulin Ratio 0.9 % 08/20/21 06:00 Triglycerides 1492 mg/dL (2-149) H 08/20/21 06:00 Carcinoembryonic Ag <0.5 ng/mL (0.0-2.4) 07/31/21 04:45 Arterial Blood Glucose 141 mg/dL (65-95) H 08/19/21 13:45 Arterial Blood Ionized Calcium 4.6 mg/dL (4.6-5.3) 08/17/21 07:27 Urine Color Yellow (Yellow) 08/08/21 20: Urine Turbidity Slightly-cloudy (Clear) 08/08/21 20: Urine pH 5.0 (5.0-7.0) 08/08/21 20: Ur Specific [place] 1.014 (1.003-1.030) 08/08/21 20:27 Urine Protein 30 mg/dl mg/dL (Negative) 08/08/21 20: Urine Glucose (UA) Neg mg/dL (Negative) 08/08/21 20: Urine Ketones Neg mg/dL (Negative) 08/08/21 20: Urine Blood Mod (Negative) 08/08/21 20: Urine Nitrite Neg (Negative) 08/08/21 20: Urine Bilirubin Neg (Negative) 08/08/21 20: Urine Urobilinogen < 2.0 mg/dL (<2.0) 08/08/21 20: Ur Leukocyte Esterase Neg (Negative) 08/08/21 20:27 Urine WBC (Auto) 6.0 /HPF (0.0-6.0) 08/08/21 20:27 Urine RBC (Auto) 6.0 /HPF (0.0-6.0) 08/08/21 20:27 U Epithel Cells (Auto) < 1.0 /HPF (0-13.0) 08/08/21 20:27 Urine Bacteria (Auto) 1+ /HPF (Negative) 08/08/21 20: Urine Mucus Few /HPF 08/08/21 20: Urine Yeast (Budding) 1+ /HPF 08/08/21 20:27 Urine Creatinine 125.6 mg/dL (0.1-20.0) H 08/01/21 Unknown Urine Sodium 12 mmol/L 08/01/21 Unknown Double Strand DNA Ab 1 IU/mL (<=4) 08/02/21 15:40 Coronavirus (PCR) Negative (Negative) 07/29/21 07:58 Hepatitis A IgM Ab Non-reactive (NonReactive) 08/02/21 15:40 Hep Bs Antigen Nonreactive (Negative) 08/02/21 15:40 Hep B Core IgM Ab Non-reactive (NonReactive) 08/02/21 15:40 Hepatitis C Antibody Non-reactive (NonReactive) 08/02/21 15:40 AFB Identification Negative 08/02/21 14:30 Blood Type A POSITIVE 08/18/21 05:10 Antibody Screen Negative 08/18/21 05:10 Crossmatch See Detail 08/18/21 05:10 Elizabeth/IV: Voiding Method Indwelling Catheter Active Medications - Current Medications Current Medications: Generic Name Dose Route Start Last Admin Trade Name Freq PRN Reason Stop Dose Admin Acetaminophen 650 mg 07/28/21 02:11 08/18/21 22:02 Acetaminophen 325 Mg Tab PO 650 mg Q6H PRN Administration Pain MILD(1-3)/Fever >100.5/GARCIA Albuterol/Ipratropium 1 ampul 07/28/21 14:00 08/20/21 09:08 Ipratropium/Albuterol Sulfate 3 Ml Ampul.Neb IH 1 ampul TID DEMIAN Administration Lipase/Protease/Amylase 1 each 07/29/21 13:01 Lipase 10,500/Protease 25,000/Amylase 43,750 (Units) Dr Cap FEEDTUBE PRN PRN For Clogged Feeding Tube Arformoterol Tartrate 15 mcg 07/28/21 20:00 08/20/21 09:08 Arformoterol 15 Mcg/2 Ml Nebu IH 15 mcg Q12HRT DEMIAN Administration Bisacodyl 10 mg 08/07/21 09:50 08/20/21 09:22 Bisacodyl 10 Mg Rect Supp MI 10 mg QDAY PRN Administration Constip unreliev by MOM/or NPO Budesonide 0.5 mg 07/28/21 20:00 08/20/21 09:08 Budesonide 0.5 Mg/2 Ml Nebu IH 0.5 mg Q12HRT DEMIAN Administration Dextrose 50 ml 07/28/21 02:11 08/10/21 18:05 Dextrose 50% In Water (25gm) 50 Ml Syringe IV 20 ml Q30MIN PRN Administration Hypoglycemia Protocol Enoxaparin Sodium 40 mg 08/19/21 10:00 08/20/21 09:21 Enoxaparin 40 Mg/0.4 Ml Inj SUB-Q 40 mg QDAY DEMIAN Administration Protocol Famotidine 20 mg 08/15/21 10:00 08/20/21 09:22 Famotidine 20 Mg Tab FEEDTUBE 20 mg BID DEMIAN Administration Fentanyl 50 mcg 07/29/21 10:42 08/04/21 09:05 Fentanyl 100 Mcg/2 Ml Inj IV 50 mcg Q10MIN PRN Administration ANALGESIA Hydralazine HCl 10 mg 07/30/21 14:52 08/19/21 12:12 Hydralazine 20 Mg/1 Ml Inj IV 10 mg Q6H PRN Administration SBP > 165 Hydrophilic Ointment 1 applic 07/29/21 10:42 Lip Therapy Vaseline TP Q2HR PRN Dry Lips Fentanyl Citrate 2,000 mcg in 100 mls @ 5.35 mls/hr 07/29/21 11:00 08/20/21 07:12 Fentanyl Drip Premix IV 4 mcg/kg/hr TITR DEMIAN 21.4 mls/hr Administration Protocol 1 MCG/KG/HR Norepinephrine 4 mg in 250 mls @ 7.5 mls/hr 07/29/21 21:00 Levophed Drip 4 Mg/Ns 250 Ml IV TITR DEMIAN Protocol 2 MCG/MIN Propofol 1,000 mg in 100 mls @ 3.21 mls/hr 08/17/21 16:00 08/20/21 09:01 Diprivan 10 Mg/Ml IV 40 mcg/kg/min TITR DEMIAN 25.68 mls/hr Administration Protocol 5 MCG/KG/MIN Insulin Human Lispro 0 unit 07/29/21 12:00 08/20/21 09:33 Insulin Lispro 100 Unit/Ml SUB-Q Not Given Q6HR [facility] Protocol Magnesium Hydroxide 30 ml 07/28/21 02:11 08/20/21 09:21 Magnesium Hydroxide (Mom) Oral Liqd Udc PO 30 ml Q4H PRN Administration Constipation Multi-Ingred Cream/Lotion/Oil/Oint 1 applic 07/29/21 10:42 Mineral Oil/Petrolatum, White Ophth Oint 3.5 Gm OU Q4HR PRN Dry Eye(s) Oxycodone HCl 5 mg 08/18/21 15:45 08/18/21 21:58 Oxycodone 5 Mg Tab PO 5 mg Q4H PRN Administration Pain, Moderate (4-6) Polyethylene Glycol 17 gm 08/11/21 16:00 08/20/21 09:22 Polyethylene Glycol 3350 17 Gm Powder PO 17 gm QDAY DEMIAN Administration Quetiapine Fumarate 100 mg 08/16/21 13:49 08/20/21 09:22 Quetiapine 100 Mg Tab PO 100 mg BID DEMIAN Administration Senna/Docusate Sodium 1 tab 08/11/21 13:00 08/20/21 06:31 Sennosides/Docusate Sodium 8.6/50 Mg Tab FEEDTUBE 1 tab Q8H DEMIAN Administration Simple Syrup 15 ml 07/29/21 13:01 Simple Syrup 15 Ml FEEDTUBE PRN PRN Hypoglycemia Simple Syrup 30 ml 07/29/21 13:01 Simple Syrup 15 Ml FEEDTUBE PRN PRN Hypoglycemia Sodium Bicarbonate 325 mg 07/29/21 13:01 Sodium Bicarbonate 325 Mg Tab FEEDTUBE PRN PRN For Clogged Feeding Tube Sodium Chloride 10 ml 07/28/21 10:00 08/20/21 09:23 Sodium Chloride 0.9% 10 Ml Flush Syringe IV 10 ml BID DEMIAN Administration Sodium Chloride 10 ml 07/28/21 02:05 Sodium Chloride 0.9% 10 Ml Flush Syringe IV PRN PRN LINE FLUSH Nutrition/Malnutrition Assess - Dietary Evaluation Nutrition/Malnutrition Findings: Nutrition Notes Start: 07/28/21 14:44 Freq: Status: Active Protocol: Document 08/16/21 15:09 BAILEYMAYTE (Rec: 08/16/21 15:16 KAREY [id number]) Nutrition Notes Initial or Follow up Reassessment Current Diagnosis Diabetes,Hypertension, Respiratory Failure, Hyperlipidemia Current Diet TF - Vital AF 1.2 at 50ml/hr Labs/Tests Na 144 Pertinent Medications Senna, Miralax, Dulcolax Height 5 ft Weight 107 kg [place] Body Weight (kg) 45.45 BMI 46.0 Weight Status Morbidly Obese Subjective/Other Information Spoke with RN via phone at 15: 08. Pt still has not had a BM . Medications given today. Pt tolerating TF at goal rate and remains on vent support. Percent of energy/protein needs met: 78% energy 79% pro Burn Absent Trauma Absent GI Symptoms Constipation #1 Nutrition Diagnosis Inadequate oral intake Diagnosis Progress(for reassessment Continues documentation) Is patient on ventilator? Yes Is Patient Ambulatory and/or Out of Bed No REE-([facility]-confined to bed) 1842.852 Kcal/Kg value to use for calculation 13 Approximate Energy Requirements Using 1391 kcal/Kg Calculation Used for Recommendations Kcal/kg Additional Notes Protein: (up to 2.5g/kg IBW) up to 114g Fluid: 1 ml/kcal or per MD Nutrition Intervention Nutrition Support: Continue Vital AF 1.2 at 50 ml /hr. Per RN, pt receiving 200ml water flush q4h. Kcal 1,440 Protein (gm) 90 Fluid (mL) 973 Goal #1 TF tolerance Goal #2 TF to meet at least 75% energy and pro needs Follow-Up By: 08/23/21 Additional Comments F/U: stable TF, BM, vent status
[2021-08-19] MEDS: MAGNESIUM HYDROXIDE (MOM) ORAL LIQD UDC PO PRN (18:13)
[2021-08-20] MEDS: fentaNYL DRIP Premix 2,000 MCG/100 ML BAG IV SCH ×5 (02:54→21:43)
[2021-08-20] MEDS: FREE WATER PO SCH ×5 (04:06→19:41)
[2021-08-20] MEDS: INSULIN LISPRO 100 UNIT/ML SUB-Q SCH ×4 (04:07→19:41)
[2021-08-20] MEDS: SENNOSIDES/DOCUSATE SODIUM 8.6/50 MG TAB FEEDTUBE SCH ×3 (06:31→21:53)
[2021-08-20 07:39] LABS: Albumin 2.2 g/dL (3.9-5); BUN/Creatinine Ratio 70; Blood Urea Nitrogen 42 mg/dL (7-17); Calcium 8.1 mg/dL (8.4-10.2); Hemolysis Index 9
[2021-08-20 07:51] LABS: Alanine Aminotransferase < 5 units/L (7-56)
[2021-08-20 08:44] LABS: Hematocrit 22.6 % (30.3-42.9); Hemoglobin 8.3 gm/dl (10.1-14.3); Mean Corpuscular HGB Conc 37 % (30-34); Mean Corpuscular Volume 89 fl (79-97); Platelet Count 310 K/mm3 (140-440); Red Blood Count 2.53 M/mm3 (3.65-5.03)
[2021-08-20] MEDS: IPRATROPIUM/ALBUTEROL SULFATE 3 ML AMPUL.NEB IH SCH ×3 (09:08→20:01)
[2021-08-20] MEDS: BUDESONIDE 0.5 MG/2 ML NEBU IH SCH ×2 (09:08→20:01)
[2021-08-20] MEDS: ARFORMOTEROL 15 MCG/2 ML NEBU IH SCH ×2 (09:08→20:01)
[2021-08-20] MEDS: ENOXAPARIN 40 MG/0.4 ML INJ SUB-Q SCH (09:21)
[2021-08-20] MEDS: MAGNESIUM HYDROXIDE (MOM) ORAL LIQD UDC PO PRN (09:21)
[2021-08-20] MEDS: POLYETHYLENE GLYCOL 3350 17 GM POWDER PO SCH (09:22)
[2021-08-20] MEDS: QUEtiapine 100 MG TAB PO SCH ×2 (09:22→21:44)
[2021-08-20] MEDS: FAMOTIDINE 20 MG TAB FEEDTUBE SCH ×2 (09:22→21:44)
--- NOTE | 2021-08-20 09:54 | Progress Note ---
Assessment and Plan Assessment and plan: Assessment and plan: 66-year-old female with PmHx of HTN, DM, HLD, COPD, ex-smoker, breast CA s/p Rt. mastectomy, now with metastatic to the lung. Initially admitted for acute hy poxic respiratory failure, COPD exacerbation, pneumonia and left lower leg DVT, coded on 07/29 and was transferredn to ICU . Patient is s/p tracheostomy and PEGTube insertion, currently vent dependent/ failed multiples CPAP trial Hospital Course to date: 07/29/2021. Patient seen this morning with Shabbir-Chavira respiration/agonal breathing. RENEE ABREU was called and patient was intubated and placed on mechanical ventilation. Patient transferred to ICU. Critical care/pulmonary consulted. Patient currently with AC mode rate of 30, FiO2 100%, PEEP of 12. Continue IV antibiotics. Consult ID and oncology for further evaluation. Patient will likely need bronchoscopy for further evaluation of the lung mass. Doppler ultrasound revealedLLE DVT. Start anticoagulation. 07/30/2021. Patient appears much improved and more responsive this morning. Patient currently with AC mode ventilation rate of 24, tidal volume 450, PEEP of 8 and FiO2 35%. Spontaneous breathing trials with possible extubation today per pulmonary. Bronchoscopy per pulmonary. Continue Lovenox twice daily for DVT. Continue IV antibiotics for sepsis/pneumonia. ID consultation pending. Follow- up CEA, CA 15-3, CA 2729. 07/31/2021. Echocardiogram reveals left ventricular size and function are normal. EF 50 to 55% with mild diastolic dysfunction. Patient currently with CPAP/PSV trial 11/02. Anticipate extubation today per pulmonary. Bronchoscopy per pulmonary. Continue Lovenox twice daily for DVT. Continue IV antibiotics for sepsis/pneumonia. ID consultation pending. Follow-up CEA, CA 15-3, CA 2729. 08/01: ALIYAH 08/02: Patient had a bronchoscopy today. Cell count, cytology and AFB sent from samples. Patient remains sedated on fentanyl and Versed. Patient and daughter Rosana were updated. 08/03: [facility] follow-up on [facility] specimens and was informed patient specimens indicate cancer. Communicated to Dr. Abbott and he stated he will update family. 08/04: Patient remains sedated on fentanyl and Versed, patient has moments of agitation with any stimulation. CPAP trial unable to be completed today due to agitation. 08/05: Patient had low urine output overnight and Elizabeth catheter was changed this a.m. with 2 L of urine output received. Patient did have a increase in creatinine however this may have been obstructive process and nephrology is aware. Hematology/oncology spoke to family who wishes for everything to be done despite bronchial washings with cancer cells. [facility] contacted patient's oncologist to help facilitate transfer. We attempted to hold sedation for CPAP trial however patient became extremely agitated and sedation was restarted. 08/06: Surgery consulted for possible trach. Leukocytosis and renal function slowly improving. No acute events reported overnight. 08/07: Creatinine continues to decrease, patient has slight hyper natremia and hyperchloremia. Patient remains on fentanyl and Versed with periods of agitation. Increasing free water flushes. 08-08 improving cr; febrile; family wants full care/full code- heme onc following 08-09 LOW GRADE FEVERS; FOR TRACH/PEG 08/10: Patient seen and examined, had Bronchoscopy and Trach and PEG today, follow report. Continue supportive care. 08/11: Patient remains on full vent support. Continue supportive care. 08/12: This morning patient noted with bleeding around trach surgery consulted going for emergent surgery. Labs ordered 08/13: Patient seen and examined, no further bleeding, had surgical intervention yesterday for trach site bleeding. No further bleeding this am. Patient otherwise remains on mechanical ventilation. Leukocytosis mildly worsened today this could be reactive has no fever will monitor mental status is still severely encephalopathic. 08/14/21 patient seen and examined. Lab and medication reviewed. No further bleeding from track site. Hemoglobin is 8.1. Hematocrit 24.2 and WBC 9.7. Continue current management and supportive care. Recheck CBC CMP in the morning 08/15: Overnight patient experienced sinus pericardia with return, will receive MiraLAX and CPAP trial today. 08/16: CPAP trial failed today. 08/17: given ducloax suppository today 08/18: failed cpap today as she became bradycardiac. able to follow simple commands. update today by phone. See note for details. Ltach referral sent 08/19- Patient is trached and on the vent, sedated with propofol and fentanyl. Attempted SAT today did not tolerated it, so no SBT trial today due to increased agitation and patient required more sedation to reach RASS goal -3 to -4. No documented BM document, PRN MOM administered, continue BR. Continue to monitor renal function, H&H, and electrolytes. AM labs ordered. 08/20: Awaiting placement at LTAC. #Neuro: Acute metabolic encephalopathy, agitation - Sedated with fentanyl and propof gtt - Titrate gtts for RASS goal of -2 to -3 - SAT attempted today, patient did not tolerated due to increase agitation - Avoid delirium- On Seroquel - Bilateral restraints for safety #Cardio: Sinus Tachycardia #s/p cardiac arrest #LLE DVT #H/o HTN & HLD - 07/29- Echocardiogram completed-> EF 50 to 55% with mild diastolic dysfunction - ST- HR as high as 120 possible to agitation/under-sedated, improved once patient target RASS was reached - Continue to monitor blood pressure, MAP goal> 65 and SBP<165 - PRN Hydralazine for SBP>165 - Continue AC- Lovenox Qday #Respiratory: Acute hypoxemic respiratory failure 2/2 Lung mass/CA #COPD exacerbation - 08/10 S/P Tracheostomy - Vent setting: AC 30%,8,12,450 - Today ABG noted d/w CCM - Vent dependent/ unable to wean off vent due to multiple failed trials vazquez down in the 30s - No SBT trial today due to increased agitation and patient required more sedation to reach RASS goal -3 to -4 - VAP bundle addressed - Aspiration precaution; keep HOB elevated> 45 degree - Continue to assess for Daily SBT and SAT trials as tolerated - Continue SPO2 monitoring for SPO2 goal greater than 90% - Continue daily ABG per CCM #GI: Contipation - 08/10 s/p PEGTube insertion - 08/17 KUB: moderate amount of fecal material throughout theh colon - No BM documented in last 48hrs - Continue enteral nutrition- TF at goal, FWF 100ml Q4h - PRN MOM given 08/19 - Continue bowel regimen: Miralax, senokot, and PRN Ducolax & MOM for constipation - Continue PPI- Pepcid #: Acute kidney injury likely 2/2 vasomotor nephropathy/pre-renal #Hyperchloremia- improved # mild Hyponatremia - 08/01 FeNA 0.13 - 08/19 Bun 40, Cr. 0.7, Na 133, Cl 99.4 - Continue to monitor renal function - Continue to monitor electrolytes, replaced if necessary - Continue Strict intake and output - Elizabeth in place- net + 800ml in last 24hrs - Continue to avoid nephrotoxins, renally dose all medications - Nephrology on consult, appreciate recommendations #ID: Acute sepsis possibly due to PNA vs cardiac event- Resolved - 07/27 B.Cultx2:neg, 07/29 tracheal aspirate:neg, 08/02 Urine cult: neg, 08/08 repeat B.CultX2: neg - Afebrile, TMAX 99, WBCs 5.8 - No longer on IV ABx - ID signed off - Continue to monitor for s/s of infectious process - Daily CBC and BMP #Heme/Onc: H/o breast carcinoma with metastasis to lungs #LLE DVT #Acute Blood loss- resolved - 08/12 Bronchocopy biopsy- result confirm carcinoma c/w breast primary - 08/12 emergent procedure at trach site due to hemorrhage - H&H has been stable 8.5/24.8 - Continue AC- Lovenox - SCDs to bilateral lower extremities while in bed - Heme/Onc on Consult - Per Heme/Onc patient is "not a good candidate for chemotherapy, but chest tumor radiation may be possible" #Endo: Hyperglycemia, H/o DM - Continue SSI for a Target blood glucose of 140-180 - Avoid hypoglycemia #Advance care planning - Team has been discussing plan of care with Patient's , Femi. - Plan to discharge to LTACH, case management to arrange The high probability of a clinically significant, sudden or life threatening deterioration of the [multi] system(s) required my full and direct attention, intervention and personal management. The aggregate critical care time was [60] minutes. This time is in addition to time spent performing reported procedures but includes the following: [x] Data Review and interpretation [x] Patient assessment and monitoring of vital signs [x] Documentation [x] Medication orders and management Disposition Plan: ICU Total Time Spent with Patient (Minutes): 60 Hospitalist Physical - Physical exam Narrative exam: General appearance: Present: mild distress (due to increased agitation) - EENT Eyes: Present: PERRL - Respiratory Respiratory effort: normal Respiratory: bilateral: wheezing - Cardiovascular Rhythm: regular Heart Sounds: Present: S1 & S2 - Extremities Extremities: pulses intact, pulses symmetrical Extremity abnormal: edema - Peripheral Assessment Generalized Edema Type: Non-pitting Edema Degree: 1+ Capillary Refill: < 3 seconds Skin Temperature: Warm - Abdominal General gastrointestinal: soft, non-tender, non-distended, normal bowel sounds - Integumentary Integumentary: Present: warm, dry - Psychiatric Psychiatric: agitated - Neurologic Neurologic: moves all extremities - Allied Health Allied health notes reviewed: nursing - Constitutional Vitals: Temp Pulse Resp BP Pulse Ox 98 F 84 15 121/69 100 08/20/21 04:00 08/20/21 09:34 08/20/21 09:34 08/20/21 09:05 08/20/21 09:05 General appearance: Present: mild distress (due to increased agitation) Results - Labs CBC & Chem 7: 08/20/21 06:00 08/20/21 06:00 Labs: Laboratory Last Values WBC 5.1 K/mm3 (4.5-11.0) 08/20/21 06:00 RBC 2.53 M/mm3 (3.65-5.03) L 08/20/21 06:00 Hgb 8.3 gm/dl (10.1-14.3) L 08/20/21 06:00 Hct 22.6 % (30.3-42.9) L 08/20/21 06:00 MCV 89 fl (79-97) 08/20/21 06:00 MCH 33 pg (28-32) H 08/20/21 06:00 MCHC 37 % (30-34) H 08/20/21 06:00 RDW 17.0 % (13.2-15.2) H 08/20/21 06:00 Plt Count 310 K/mm3 (140-440) 08/20/21 06:00 Lymph % (Auto) 12.5 % (13.4-35.0) L 08/15/21 Unknown Callahan % (Auto) 5.9 % (0.0-7.3) 08/15/21 Unknown Eos % (Auto) 0.9 % (0.0-4.3) 08/15/21 Unknown Baso % (Auto) 0.3 % (0.0-1.8) 08/15/21 Unknown Lymph # (Auto) 1.0 K/mm3 (1.2-5.4) L 08/15/21 Unknown Callahan # (Auto) 0.5 K/mm3 (0.0-0.8) 08/15/21 Unknown Eos # (Auto) 0.1 K/mm3 (0.0-0.4) 08/15/21 Unknown Baso # (Auto) 0.0 K/mm3 (0.0-0.1) 08/15/21 Unknown Add Manual Diff Complete 08/05/21 04:50 Total Counted 100 08/05/21 04:50 Seg Neutrophils % 80.4 % (40.0-70.0) H 08/15/21 Unknown Seg Neuts % (Manual) 75.0 % (40.0-70.0) H 08/05/21 04:50 Band Neutrophils % 8.0 % 08/05/21 04:50 Lymphocytes % (Manual) 2.0 % (13.4-35.0) L 08/05/21 04:50 Monocytes % (Manual) 5.0 % (0.0-7.3) 08/05/21 04:50 Eosinophils % (Manual) 1.0 % (0.0-4.3) 08/05/21 04:50 Metamyelocytes % 6.0 % 08/05/21 04:50 Myelocytes % 3.0 % 08/05/21 04:50 Nucleated RBC % Not Reportable 08/05/21 04:50 Seg Neutrophils # 6.4 K/mm3 (1.8-7.7) 08/15/21 Unknown Seg Neutrophils # Man 14.3 K/mm3 (1.8-7.7) H 08/05/21 04:50 Band Neutrophils # 1.5 K/mm3 08/05/21 04:50 Lymphocytes # (Manual) 0.4 K/mm3 (1.2-5.4) L 08/05/21 04:50 Abs React Lymphs (Man) 0.0 K/mm3 08/05/21 04:50 Monocytes # (Manual) 1.0 K/mm3 (0.0-0.8) H 08/05/21 04:50 Eosinophils # (Manual) 0.2 K/mm3 (0.0-0.4) 08/05/21 04:50 Basophils # (Manual) 0.0 K/mm3 (0.0-0.1) 08/05/21 04:50 Metamyelocytes # 1.1 K/mm3 08/05/21 04:50 Myelocytes # 0.6 K/mm3 08/05/21 04:50 Promyelocytes # 0.0 K/mm3 08/05/21 04:50 Blast Cells # 0.0 K/mm3 08/05/21 04:50 WBC Morphology Not Reportable 08/05/21 04:50 Hypersegmented Neuts Not Reportable 08/05/21 04:50 Hyposegmented Neuts Not Reportable 08/05/21 04:50 Hypogranular Neuts Not Reportable 08/05/21 04:50 Smudge Cells Not Reportable 08/05/21 04:50 Toxic Granulation Not Reportable 08/05/21 04:50 Toxic Vacuolation Not Reportable 08/05/21 04:50 Dohle Bodies Not Reportable 08/05/21 04:50 Pelger-Huet Anomaly Not Reportable 08/05/21 04:50 Beryl Rods Not Reportable 08/05/21 04:50 Platelet Estimate Consistent w auto 08/05/21 04:50 Clumped Platelets Not Reportable 08/05/21 04:50 Plt Clumps, EDTA Not Reportable 08/05/21 04:50 Large Platelets Not Reportable 08/05/21 04:50 Giant Platelets Not Reportable 08/05/21 04:50 Platelet Satelliting Not Reportable 08/05/21 04:50 Plt Morphology Comment Not Reportable 08/05/21 04:50 RBC Morphology Not Reportable 08/05/21 04:50 Dimorphic RBCs Not Reportable 08/05/21 04:50 Polychromasia Not Reportable 08/05/21 04:50 Hypochromasia Not Reportable 08/05/21 04:50 Poikilocytosis Not Reportable 08/05/21 04:50 Anisocytosis Not Reportable 08/05/21 04:50 Microcytosis Not Reportable 08/05/21 04:50 Macrocytosis Not Reportable 08/05/21 04:50 Spherocytes Not Reportable 08/05/21 04:50 Pappenheimer Bodies Not Reportable 08/05/21 04:50 Sickle Cells Not Reportable 08/05/21 04:50 Target Cells Not Reportable 08/05/21 04:50 Tear Drop Cells Not Reportable 08/05/21 04:50 Ovalocytes Few 08/05/21 04:50 Helmet Cells Not Reportable 08/05/21 04:50 Paul-Kanorado Bodies Not Reportable 08/05/21 04:50 [place] Rings Not Reportable 08/05/21 04:50 [place] Cells Not Reportable 08/05/21 04:50 Bite Cells Not Reportable 08/05/21 04:50 Crenated Cell Not Reportable 08/05/21 04:50 Elliptocytes Not Reportable 08/05/21 04:50 Acanthocytes (Spur) Not Reportable 08/05/21 04:50 Rouleaux Not Reportable 08/05/21 04:50 Hemoglobin C Crystals Not Reportable 08/05/21 04:50 Schistocytes Not Reportable 08/05/21 04:50 Malaria parasites Not Reportable 08/05/21 04:50 Gurmeet Bodies Not Reportable 08/05/21 04:50 Hem Pathologist Commnt No 08/05/21 04:50 PT 14.5 Sec. (12.2-14.9) 08/12/21 21:41 INR 1.08 (0.87-1.13) 08/12/21 21:41 APTT 29.9 Sec. (24.2-36.6) 08/10/21 05:20 D-Dimer 852.47 ng/mlDDU (0-234) H 07/29/21 07:17 ABG pH 7.401 (7.320-7.450) 08/19/21 13:45 POC ABG pCO2 39.8 mmHg (32.0-48.0) 08/19/21 13:45 ABG pCO2 46.6 mm Hg 08/17/21 21:23 POC ABG pO2 145.3 mmHg (83-108) H 08/19/21 13:45 ABG pO2 122.5 mm Hg (80.0-90.0) H 08/17/21 21:23 POC ABG HCO3 24.2 08/19/21 13:45 ABG HCO3 24.4 mmol/L (20.0-26.0) 08/17/21 21:23 ABG O2 Saturation 99.0 (0-100) 08/19/21 13:45 ABG O2 Content 10.6 (0.0-44) 08/17/21 21:23 POC ABG Base Excess -0.5 08/19/21 13:45 ABG Base Excess -1.4 mmol/L (-2.0-3.0) 08/17/21 21:23 ABG Hemoglobin 10.0 (12.0-17.5) L 08/19/21 13:45 ABG Oxyhemoglobin 98.4 (94-98) H 08/19/21 13:45 ABG Carboxyhemoglobin 1.8 % (0.0-5.0) 08/17/21 21:23 ABG Methemoglobin 0.3 (0.0-1.5) 08/19/21 13:45 ABG Sodium 134.0 mmol/L (136.0-145.0) L 08/19/21 13:45 ABG Potassium 4.2 mmol/L (3.40-4.50) 08/19/21 13:45 ABG Chloride 102.0 mmol/L (98-107) 08/19/21 13:45 ABG Glucose 141 mg/dL (65-95) H 08/19/21 13:45 Oxyhemoglobin 96.2 % (95.0-99.0) 08/17/21 21:23 Carboxyhemoglobin 0.3 (0.5-1.5) L 08/19/21 13:45 FiO2 30 % 08/17/21 21:23 FiO2 % 30.0 08/19/21 13:45 Sodium 134 mmol/L (137-145) L 08/20/21 06:00 Potassium 4.3 mmol/L (3.6-5.0) 08/20/21 06:00 Chloride 98.6 mmol/L (98-107) 08/20/21 06:00 Carbon Dioxide 23 mmol/L (22-30) 08/20/21 06:00 Anion Gap 17 mmol/L 08/20/21 06:00 BUN 42 mg/dL (7-17) H 08/20/21 06:00 Creatinine 0.6 mg/dL (0.6-1.2) 08/20/21 06:00 Estimated GFR > 60 ml/min 08/20/21 06:00 BUN/Creatinine Ratio 70 % 08/20/21 06:00 Glucose 102 mg/dL (65-100) H 08/20/21 06:00 POC Glucose 107 mg/dL (70-105) H 08/19/21 23:32 Lactic Acid 2.10 mmol/L (0.7-2.0) H* 08/03/21 15:11 Calcium 8.1 mg/dL (8.4-10.2) L 08/20/21 06:00 Phosphorus 4.10 mg/dL (2.5-4.5) 08/08/21 06:00 Magnesium 1.70 mg/dL (1.7-2.3) 08/12/21 21:41 Total Bilirubin 0.30 mg/dL (0.1-1.2) 08/20/21 06:00 AST < 5 units/L (5-40) L 08/20/21 06:00 ALT < 5 units/L (7-56) L 08/20/21 06:00 Alkaline Phosphatase 120 units/L (35-129) 08/20/21 06:00 Total Protein 4.7 g/dL (6.3-8.2) L 08/20/21 06:00 Albumin 2.2 g/dL (3.9-5) L 08/20/21 06:00 Albumin/Globulin Ratio 0.9 % 08/20/21 06:00 Triglycerides 1492 mg/dL (2-149) H 08/20/21 06:00 Carcinoembryonic Ag <0.5 ng/mL (0.0-2.4) 07/31/21 04:45 Arterial Blood Glucose 141 mg/dL (65-95) H 08/19/21 13:45 Arterial Blood Ionized Calcium 4.6 mg/dL (4.6-5.3) 08/17/21 07:27 Urine Color Yellow (Yellow) 08/08/21 20: Urine Turbidity Slightly-cloudy (Clear) 08/08/21 20: Urine pH 5.0 (5.0-7.0) 08/08/21 20: Ur Specific Eclectic 1.014 (1.003-1.030) 08/08/21 20: Urine Protein 30 mg/dl mg/dL (Negative) 08/08/21 20: Urine Glucose (UA) Neg mg/dL (Negative) 08/08/21 20: Urine Ketones Neg mg/dL (Negative) 08/08/21 20: Urine Blood Mod (Negative) 08/08/21 20: Urine Nitrite Neg (Negative) 08/08/21 20:27 Urine Bilirubin Neg (Negative) 08/08/21 20: Urine Urobilinogen < 2.0 mg/dL (<2.0) 08/08/21 20:27 Ur Leukocyte Esterase Neg (Negative) 08/08/21 20:27 Urine WBC (Auto) 6.0 /HPF (0.0-6.0) 08/08/21 20: Urine RBC (Auto) 6.0 /HPF (0.0-6.0) 08/08/21 20: U Epithel Cells (Auto) < 1.0 /HPF (0-13.0) 08/08/21 20: Urine Bacteria (Auto) 1+ /HPF (Negative) 08/08/21 20: Urine Mucus Few /HPF 08/08/21 20: Urine Yeast (Budding) 1+ /HPF 08/08/21 20:27 Urine Creatinine 125.6 mg/dL (0.1-20.0) H 08/01/21 Unknown Urine Sodium 12 mmol/L 08/01/21 Unknown Double Strand DNA Ab 1 IU/mL (<=4) 08/02/21 15:40 Coronavirus (PCR) Negative (Negative) 07/29/21 07:58 Hepatitis A IgM Ab Non-reactive (NonReactive) 08/02/21 15:40 Hep Bs Antigen Nonreactive (Negative) 08/02/21 15:40 Hep B Core IgM Ab Non-reactive (NonReactive) 08/02/21 15:40 Hepatitis C Antibody Non-reactive (NonReactive) 08/02/21 15:40 AFB Identification Negative 08/02/21 14:30 Blood Type A POSITIVE 08/18/21 05:10 Antibody Screen Negative 08/18/21 05:10 Crossmatch See Detail 08/18/21 05:10 Elizabeth/IV: Voiding Method Indwelling Catheter Active Medications - Current Medications Current Medications: Generic Name Dose Route Start Last Admin Trade Name Freq PRN Reason Stop Dose Admin Acetaminophen 650 mg 07/28/21 02:11 08/18/21 22:02 Acetaminophen 325 Mg Tab PO 650 mg Q6H PRN Administration Pain MILD(1-3)/Fever >100.5/GARCIA Albuterol/Ipratropium 1 ampul 07/28/21 14:00 08/20/21 09:08 Ipratropium/Albuterol Sulfate 3 Ml Ampul.Neb IH 1 ampul TID DEMIAN Administration Lipase/Protease/Amylase 1 each 07/29/21 13:01 Lipase 10,500/Protease 25,000/Amylase 43,750 (Units) Dr Cap FEEDTUBE PRN PRN For Clogged Feeding Tube Arformoterol Tartrate 15 mcg 07/28/21 20:00 08/20/21 09:08 Arformoterol 15 Mcg/2 Ml Nebu IH 15 mcg Q12HRT DEMIAN Administration Bisacodyl 10 mg 08/07/21 09:50 08/20/21 09:22 Bisacodyl 10 Mg Rect Supp MD 10 mg QDAY PRN Administration Constip unreliev by MOM/or NPO Budesonide 0.5 mg 07/28/21 20:00 08/20/21 09:08 Budesonide 0.5 Mg/2 Ml Nebu IH 0.5 mg Q12HRT DEMIAN Administration Dextrose 50 ml 07/28/21 02:11 08/10/21 18:05 Dextrose 50% In Water (25gm) 50 Ml Syringe IV 20 ml Q30MIN PRN Administration Hypoglycemia Protocol Enoxaparin Sodium 40 mg 08/19/21 10:00 08/20/21 09:21 Enoxaparin 40 Mg/0.4 Ml Inj SUB-Q 40 mg QDAY DEMIAN Administration Protocol Famotidine 20 mg 08/15/21 10:00 08/20/21 09:22 Famotidine 20 Mg Tab FEEDTUBE 20 mg BID DEMIAN Administration Fentanyl 50 mcg 07/29/21 10:42 08/04/21 09:05 Fentanyl 100 Mcg/2 Ml Inj IV 50 mcg Q10MIN PRN Administration ANALGESIA Hydralazine HCl 10 mg 07/30/21 14:52 08/19/21 12:12 Hydralazine 20 Mg/1 Ml Inj IV 10 mg Q6H PRN Administration SBP > 165 Hydrophilic Ointment 1 applic 07/29/21 10:42 Lip Therapy Vaseline TP Q2HR PRN Dry Lips Fentanyl Citrate 2,000 mcg in 100 mls @ 5.35 mls/hr 07/29/21 11:00 08/20/21 07:12 Fentanyl Drip Premix IV 4 mcg/kg/hr TITR DEMIAN 21.4 mls/hr Administration Protocol 1 MCG/KG/HR Norepinephrine 4 mg in 250 mls @ 7.5 mls/hr 07/29/21 21:00 Levophed Drip 4 Mg/Ns 250 Ml IV TITR DEMIAN Protocol 2 MCG/MIN Propofol 1,000 mg in 100 mls @ 3.21 mls/hr 08/17/21 16:00 08/20/21 09:01 Diprivan 10 Mg/Ml IV 40 mcg/kg/min TITR DEMIAN 25.68 mls/hr Administration Protocol 5 MCG/KG/MIN Insulin Human Lispro 0 unit 07/29/21 12:00 08/20/21 09:33 Insulin Lispro 100 Unit/Ml SUB-Q Not Given Q6HR [facility] Protocol Magnesium Hydroxide 30 ml 07/28/21 02:11 08/20/21 09:21 Magnesium Hydroxide (Mom) Oral Liqd Udc PO 30 ml Q4H PRN Administration Constipation Multi-Ingred Cream/Lotion/Oil/Oint 1 applic 07/29/21 10:42 Mineral Oil/Petrolatum, White Ophth Oint 3.5 Gm OU Q4HR PRN Dry Eye(s) Oxycodone HCl 5 mg 08/18/21 15:45 08/18/21 21:58 Oxycodone 5 Mg Tab PO 5 mg Q4H PRN Administration Pain, Moderate (4-6) Polyethylene Glycol 17 gm 08/11/21 16:00 08/20/21 09:22 Polyethylene Glycol 3350 17 Gm Powder PO 17 gm QDAY DEMIAN Administration Quetiapine Fumarate 100 mg 08/16/21 13:49 08/20/21 09:22 Quetiapine 100 Mg Tab PO 100 mg BID DEMIAN Administration Senna/Docusate Sodium 1 tab 08/11/21 13:00 08/20/21 06:31 Sennosides/Docusate Sodium 8.6/50 Mg Tab FEEDTUBE 1 tab Q8H DEMIAN Administration Simple Syrup 15 ml 07/29/21 13:01 Simple Syrup 15 Ml FEEDTUBE PRN PRN Hypoglycemia Simple Syrup 30 ml 07/29/21 13:01 Simple Syrup 15 Ml FEEDTUBE PRN PRN Hypoglycemia Sodium Bicarbonate 325 mg 07/29/21 13:01 Sodium Bicarbonate 325 Mg Tab FEEDTUBE PRN PRN For Clogged Feeding Tube Sodium Chloride 10 ml 07/28/21 10:00 08/20/21 09:23 Sodium Chloride 0.9% 10 Ml Flush Syringe IV 10 ml BID DEMIAN Administration Sodium Chloride 10 ml 07/28/21 02:05 Sodium Chloride 0.9% 10 Ml Flush Syringe IV PRN PRN LINE FLUSH Nutrition/Malnutrition Assess - Dietary Evaluation Nutrition/Malnutrition Findings: Nutrition Notes Start: 07/28/21 14:44 Freq: Status: Active Protocol: Document 08/16/21 15:09 KAREY (Rec: 08/16/21 15:16 NHALL [id number]) Nutrition Notes Initial or Follow up Reassessment Current Diagnosis Diabetes,Hypertension, Respiratory Failure, Hyperlipidemia Current Diet TF - Vital AF 1.2 at 50ml/hr Labs/Tests Na 144 Pertinent Medications Senna, Miralax, Dulcolax Height 5 ft Weight 107 kg [place] Body Weight (kg) 45.45 BMI 46.0 Weight Status Morbidly Obese Subjective/Other Information Spoke with RN via phone at 15: 08. Pt still has not had a BM . Medications given today. Pt tolerating TF at goal rate and remains on vent support. Percent of energy/protein needs met: 78% energy 79% pro Burn Absent Trauma Absent GI Symptoms Constipation #1 Nutrition Diagnosis Inadequate oral intake Diagnosis Progress(for reassessment Continues documentation) Is patient on ventilator? Yes Is Patient Ambulatory and/or Out of Bed No REE-([facility]-confined to bed) 1842.852 Kcal/Kg value to use for calculation 13 Approximate Energy Requirements Using 1391 kcal/Kg Calculation Used for Recommendations Kcal/kg Additional Notes Protein: (up to 2.5g/kg IBW) up to 114g Fluid: 1 ml/kcal or per MD Nutrition Intervention Nutrition Support: Continue Vital AF 1.2 at 50 ml /hr. Per RN, pt receiving 200ml water flush q4h. Kcal 1,440 Protein (gm) 90 Fluid (mL) 973 Goal #1 TF tolerance Goal #2 TF to meet at least 75% energy and pro needs Follow-Up By: 08/23/21 Additional Comments F/U: stable TF, BM, vent status
--- NOTE | 2021-08-20 12:48 | Hem/Onc Progress Note ---
Objective - Constitutional Vitals: Last Vital Signs Temp 98.1 F 08/20/21 12:00 Pulse 83 08/20/21 11:43 Resp 13 08/20/21 10:00 BP 110/63 08/20/21 11:43 Pulse Ox 99 08/20/21 12:05 - Labs Lab Results: Laboratory Results - last 24 hr 08/18/21 08/19/21 08/19/21 05:10 13:45 17:23 WBC RBC Hgb Hct MCV MCH MCHC RDW Plt Count ABG pH 7.401 POC ABG pCO2 39.8 POC ABG pO2 145.3 H POC ABG HCO3 24.2 ABG O2 Saturation 99.0 POC ABG Base Excess -0.5 ABG Hemoglobin 10.0 L ABG Oxyhemoglobin 98.4 H ABG Methemoglobin 0.3 ABG Sodium 134.0 L ABG Potassium 4.2 ABG Chloride 102.0 ABG Glucose 141 H Carboxyhemoglobin 0.3 L FiO2 % 30.0 Sodium Potassium Chloride Carbon Dioxide Anion Gap BUN Creatinine Estimated GFR BUN/Creatinine Ratio Glucose POC Glucose 133 H Calcium Total Bilirubin AST ALT Alkaline Phosphatase Total Protein Albumin Albumin/Globulin Ratio Triglycerides Arterial Blood Glucose 141 H Crossmatch See Detail 08/19/21 08/20/21 08/20/21 23:32 06:00 06:00 WBC 5.1 RBC 2.53 L Hgb 8.3 L Hct 22.6 L MCV 89 MCH 33 H MCHC 37 H RDW 17.0 H Plt Count 310 ABG pH POC ABG pCO2 POC ABG pO2 POC ABG HCO3 ABG O2 Saturation POC ABG Base Excess ABG Hemoglobin ABG Oxyhemoglobin ABG Methemoglobin ABG Sodium ABG Potassium ABG Chloride ABG Glucose Carboxyhemoglobin FiO2 % Sodium Potassium Chloride Carbon Dioxide Anion Gap BUN Creatinine Estimated GFR BUN/Creatinine Ratio Glucose POC Glucose 107 H Calcium Total Bilirubin AST ALT Alkaline Phosphatase Total Protein Albumin Albumin/Globulin Ratio Triglycerides 1492 H Arterial Blood Glucose Crossmatch 08/20/21 08/20/21 06:00 11:57 WBC RBC Hgb Hct MCV MCH MCHC RDW Plt Count ABG pH POC ABG pCO2 POC ABG pO2 POC ABG HCO3 ABG O2 Saturation POC ABG Base Excess ABG Hemoglobin ABG Oxyhemoglobin ABG Methemoglobin ABG Sodium ABG Potassium ABG Chloride ABG Glucose Carboxyhemoglobin FiO2 % Sodium 134 L Potassium 4.3 Chloride 98.6 Carbon Dioxide 23 Anion Gap 17 BUN 42 H Creatinine 0.6 Estimated GFR > 60 BUN/Creatinine Ratio 70 Glucose 102 H POC Glucose 94 Calcium 8.1 L Total Bilirubin 0.30 AST < 5 L ALT < 5 L Alkaline Phosphatase 120 Total Protein 4.7 L Albumin 2.2 L Albumin/Globulin Ratio 0.9 Triglycerides Arterial Blood Glucose Crossmatch Medications & Allergies - Medications Allergies/Adverse Reactions: Allergies No Known Allergies Allergy (Verified 12/24/18 11:45) Home Medications: Home Medications Medication Instructions Recorded Confirmed Last Taken Type traMADoL [Ultram 50 MG tab] 50 mg PO Q6HR PRN #15 tablet 01/25/18 Unknown Rx Active Medications: Generic Name Dose Route Start Last Admin Trade Name Freq PRN Reason Stop Dose Admin Acetaminophen 650 mg 07/28/21 02:11 08/18/21 22:02 Acetaminophen 325 Mg Tab PO 650 mg Q6H PRN Administration Pain MILD(1-3)/Fever >100.5/GARCIA Albuterol/Ipratropium 1 ampul 07/28/21 14:00 08/20/21 09:08 Ipratropium/Albuterol Sulfate 3 Ml Ampul.Neb IH 1 ampul TID DEMIAN Administration Lipase/Protease/Amylase 1 each 07/29/21 13:01 Lipase 10,500/Protease 25,000/Amylase 43,750 (Units) Dr Gilles [id number] PRN PRN For Clogged Feeding Tube Arformoterol Tartrate 15 mcg 07/28/21 20:00 08/20/21 09:08 Arformoterol 15 Mcg/2 Ml Nebu IH 15 mcg Q12HRT DEMIAN Administration Bisacodyl 10 mg 08/07/21 09:50 08/20/21 09:22 Bisacodyl 10 Mg Rect Supp AL 10 mg QDAY PRN Administration Constip unreliev by MOM/or NPO Budesonide 0.5 mg 07/28/21 20:00 08/20/21 09:08 Budesonide 0.5 Mg/2 Ml Nebu IH 0.5 mg Q12HRT DEMIAN Administration Dextrose 50 ml 07/28/21 02:11 08/10/21 18:05 Dextrose 50% In Water (25gm) 50 Ml Syringe IV 20 ml Q30MIN PRN Administration Hypoglycemia Protocol Enoxaparin Sodium 40 mg 08/19/21 10:00 08/20/21 09:21 Enoxaparin 40 Mg/0.4 Ml Inj SUB-Q 40 mg QDAY DEMIAN Administration Protocol Famotidine 20 mg 08/15/21 10:00 08/20/21 09:22 Famotidine 20 Mg Tab FEEDTUBE 20 mg BID DEMIAN Administration Fentanyl 50 mcg 07/29/21 10:42 08/04/21 09:05 Fentanyl 100 Mcg/2 Ml Inj IV 50 mcg Q10MIN PRN Administration ANALGESIA Hydralazine HCl 10 mg 07/30/21 14:52 08/19/21 12:12 Hydralazine 20 Mg/1 Ml Inj IV 10 mg Q6H PRN Administration SBP > 165 Hydrophilic Ointment 1 applic 07/29/21 10:42 Lip Therapy Vaseline TP Q2HR PRN Dry Lips Fentanyl Citrate 2,000 mcg in 100 mls @ 5.35 mls/hr 07/29/21 11:00 08/20/21 11:56 Fentanyl Drip Premix IV 4 mcg/kg/hr TITR DEMIAN 21.4 mls/hr Administration Protocol 1 MCG/KG/HR Norepinephrine 4 mg in 250 mls @ 7.5 mls/hr 07/29/21 21:00 Levophed Drip 4 Mg/Ns 250 Ml IV TITR DEMIAN Protocol 2 MCG/MIN Propofol 1,000 mg in 100 mls @ 3.21 mls/hr 08/17/21 16:00 08/20/21 11:56 Diprivan 10 Mg/Ml IV 40 mcg/kg/min TITR DEMIAN 25.68 mls/hr Administration Protocol 5 MCG/KG/MIN Sodium Chloride 500 mls @ 0 mls/hr 08/20/21 12:26 Nacl 0.9% 500 Ml IV 08/20/21 12:27 ONCE ONE As Directed Insulin Human Lispro 0 unit 07/29/21 12:00 08/20/21 09:33 Insulin Lispro 100 Unit/Ml SUB-Q Not Given Q6HR [facility] Protocol Magnesium Hydroxide 30 ml 07/28/21 02:11 08/20/21 09:21 Magnesium Hydroxide (Mom) Oral Liqd Udc PO 30 ml Q4H PRN Administration Constipation Methylprednisolone Sodium Succinate 80 mg 08/20/21 13:00 Methylprednisolone Sod Succinate 125 Mg/2 Ml Inj IV 08/22/21 12:59 Q12H DEMIAN Multi-Ingred Cream/Lotion/Oil/Oint 1 applic 07/29/21 10:42 Mineral Oil/Petrolatum, White Ophth Oint 3.5 Gm OU Q4HR PRN Dry Eye(s) Oxycodone HCl 5 mg 08/18/21 15:45 08/18/21 21:58 Oxycodone 5 Mg Tab PO 5 mg Q4H PRN Administration Pain, Moderate (4-6) Polyethylene Glycol 17 gm 08/11/21 16:00 08/20/21 09:22 Polyethylene Glycol 3350 17 Gm Powder PO 17 gm QDAY DEMIAN Administration Quetiapine Fumarate 100 mg 08/16/21 13:49 08/20/21 09:22 Quetiapine 100 Mg Tab PO 100 mg BID DEMIAN Administration Senna/Docusate Sodium 1 tab 08/11/21 13:00 08/20/21 12:21 Sennosides/Docusate Sodium 8.6/50 Mg Tab FEEDTUBE 1 tab Q8H DEMIAN Administration Simple Syrup 15 ml 07/29/21 13:01 Simple Syrup 15 Ml FEEDTUBE PRN PRN Hypoglycemia Simple Syrup 30 ml 07/29/21 13:01 Simple Syrup 15 Ml FEEDTUBE PRN PRN Hypoglycemia Sodium Bicarbonate 325 mg 07/29/21 13:01 Sodium Bicarbonate 325 Mg Tab FEEDTUBE PRN PRN For Clogged Feeding Tube Sodium Chloride 10 ml 07/28/21 10:00 08/20/21 09:23 Sodium Chloride 0.9% 10 Ml Flush Syringe IV 10 ml BID DEMIAN Administration Sodium Chloride 10 ml 07/28/21 02:05 Sodium Chloride 0.9% 10 Ml Flush Syringe IV PRN PRN LINE FLUSH
[2021-08-20] MEDS ORDERED: SODIUM CHLORIDE 0.9% 500 ML 500 ML IV NR (13:00)
--- NOTE | 2021-08-20 15:29 | Progress Note ---
Assessment and Plan Acute hypoxemic respiratory failure secondary Lung Mass (? Lung vs Breast CA) Acute COPD exacerbation Possible hypercapnia History of right breast cancer Leukocytosis DM II Hypertension Hyperlipidemia Tobacco use disorder - discussed care plan at length with daughter and ; awaiting transfer essentially - stopped Propofol re: triglyceride levels - get repeat TG levl & lipase level in am - continue TV 350 re: high PIP's - awaiting transfer to [facility] - hopefully can be seen by radiological oncologist +/- RTX to central lesions / mediastinopathy - continue care as below otherwise; - continue daily SAT and SBT assessment as tolerated - s/p full anticoagulation for VTE - continue Seroquel to spare IV sedatives - azotemia per nephrology - continue to wean supplemental oxygen for target O2 sat's > 90% acutely - VAP bundle addressed - continue lung protective strategies - continue bronchodilators (GLADIS & LABA) with pulmonary hygiene per RT - wean per pulmonary driven protocols otherwise - continue accuchecks with glycemic control per SSI (While critically ill target blood glucose of 140-180 mg/dL; avoid hypoglycemia) - sedation prn for target RASS 0 to -1 - avoid nephrotoxins, renally dose all medications - continue to avoid benzodiazepine's, reduce the possibility of delirium - complete AB's per ID rec's - prn analgesia per CPOT score - Maintenance of sleep-wake cycle, avoid delirium - enteral nutritional support at goal rate as tolerated - G.I. & VTE prophylaxis - PT/OT/ROM exercises - continue mobility protocols for pressure ulcer prophylaxis - Monitor hemodynamics closely - continue other care per attending / other consultants - discharge planning ongoing concurrently COVID SPECIFIC INTERVENTIONS - test result pending .... Re-evaluate in am & prn CONDITION: CRITICAL PROGNOSIS: GUARDED CODE STATUS: FULL CODE The high probability of a clinically significant, sudden or life-threatening deterioration of the [respiratory, cardiovascular, oncological & neurologic] system(s) required my full and direct attention, intervention and personal management. The aggregate critical care time was [32] minutes without overlap. Time includes spent on; [x] Data Review and interpretation [x] Patient assessment and monitoring of vital signs [x] Documentation [x] Medication orders and management Subjective Date of service: 08/20/21 Principal diagnosis: Ac hypoxemic resp failure ; AE-COPD; H/O CA Breast; DM II; HTN Interval history: Patient is seen today for: Acute hypoxemic respiratory failure; AE-COPD; Possible hypercapnia; H/O CA Breast; DM II; HTN Seen and examined at bedside; 24hour events reviewed; nursing and respiratory care staff consulted; no adverse overnight events reported to me; resting in bed; remains on MVS; still very agitated and with increased work of breathing during SAT's so SBT's on hold; serum triglycerides elevated > 1000 mg/dl Objective Vital Signs - 12hr 08/20/21 08/20/21 08/20/21 03:31 03:45 04:00 Temperature 98 F Pulse Rate 85 82 81 Pulse Rate [ Anterior Bilateral] Pulse Rate [ From Monitor] Respiratory 12 12 11 L Rate Respiratory Rate [Anterior Bilateral] Blood Pressure 119/49 119/49 86/48 O2 Sat by Pulse 100 100 99 Oximetry O2 Sat by Pulse Oximetry [ Assessment] 08/20/21 08/20/21 08/20/21 04:15 04:30 04:45 Temperature Pulse Rate 78 75 74 Pulse Rate [ Anterior Bilateral] Pulse Rate [ From Monitor] Respiratory 12 12 12 Rate Respiratory Rate [Anterior Bilateral] Blood Pressure 85/50 92/52 89/52 O2 Sat by Pulse 98 98 97 Oximetry O2 Sat by Pulse Oximetry [ Assessment] 08/20/21 08/20/21 08/20/21 04:53 05:01 05:15 Temperature Pulse Rate 73 72 74 Pulse Rate [ Anterior Bilateral] Pulse Rate [ From Monitor] Respiratory 12 12 Rate Respiratory Rate [Anterior Bilateral] Blood Pressure 89/52 110/58 110/58 O2 Sat by Pulse 99 100 100 Oximetry O2 Sat by Pulse 99 Oximetry [ Assessment] 08/20/21 08/20/21 08/20/21 05:30 05:45 06:00 Temperature Pulse Rate 72 73 73 Pulse Rate [ Anterior Bilateral] Pulse Rate [ From Monitor] Respiratory 12 12 12 Rate Respiratory Rate [Anterior Bilateral] Blood Pressure 90/50 99/57 90/48 O2 Sat by Pulse 98 99 97 Oximetry O2 Sat by Pulse Oximetry [ Assessment] 08/20/21 08/20/21 08/20/21 06:15 06:30 06:45 Temperature Pulse Rate 73 71 71 Pulse Rate [ Anterior Bilateral] Pulse Rate [ From Monitor] Respiratory 12 12 12 Rate Respiratory Rate [Anterior Bilateral] Blood Pressure 90/48 93/52 93/52 O2 Sat by Pulse 100 98 100 Oximetry O2 Sat by Pulse Oximetry [ Assessment] 08/20/21 08/20/21 08/20/21 07:00 07:15 07:30 Temperature Pulse Rate 70 70 71 Pulse Rate [ Anterior Bilateral] Pulse Rate [ From Monitor] Respiratory 12 12 12 Rate Respiratory Rate [Anterior Bilateral] Blood Pressure 87/50 93/50 97/54 O2 Sat by Pulse 98 99 96 Oximetry O2 Sat by Pulse Oximetry [ Assessment] 08/20/21 08/20/21 08/20/21 07:45 08:00 08:15 Temperature Pulse Rate 74 77 80 Pulse Rate [ Anterior Bilateral] Pulse Rate [ 79 From Monitor] Respiratory 12 12 12 Rate Respiratory Rate [Anterior Bilateral] Blood Pressure 93/50 126/73 134/74 O2 Sat by Pulse 99 100 100 Oximetry O2 Sat by Pulse Oximetry [ Assessment] 08/20/21 08/20/21 08/20/21 08:30 08:45 09:00 Temperature Pulse Rate 81 81 82 Pulse Rate [ Anterior Bilateral] Pulse Rate [ From Monitor] Respiratory 13 12 12 Rate Respiratory Rate [Anterior Bilateral] Blood Pressure 130/76 133/66 121/69 O2 Sat by Pulse 100 100 100 Oximetry O2 Sat by Pulse Oximetry [ Assessment] 08/20/21 08/20/21 08/20/21 09:05 09:15 09:30 Temperature Pulse Rate 85 80 84 Pulse Rate [ Anterior Bilateral] Pulse Rate [ From Monitor] Respiratory 15 15 Rate Respiratory Rate [Anterior Bilateral] Blood Pressure 121/69 131/67 131/77 O2 Sat by Pulse 100 100 100 Oximetry O2 Sat by Pulse Oximetry [ Assessment] 08/20/21 08/20/21 08/20/21 09:34 09:45 10:00 Temperature Pulse Rate 83 83 Pulse Rate [ 84 Anterior Bilateral] Pulse Rate [ From Monitor] Respiratory 12 13 Rate Respiratory 15 Rate [Anterior Bilateral] Blood Pressure 127/70 120/66 O2 Sat by Pulse 100 100 Oximetry O2 Sat by Pulse Oximetry [ Assessment] 08/20/21 08/20/21 08/20/21 11:43 12:00 12:05 Temperature 98.1 F Pulse Rate 83 Pulse Rate [ Anterior Bilateral] Pulse Rate [ From Monitor] Respiratory Rate Respiratory Rate [Anterior Bilateral] Blood Pressure 110/63 O2 Sat by Pulse 100 Oximetry O2 Sat by Pulse 99 Oximetry [ Assessment] 08/20/21 14:24 Temperature Pulse Rate Pulse Rate [ 73 Anterior Bilateral] Pulse Rate [ From Monitor] Respiratory Rate Respiratory 15 Rate [Anterior Bilateral] Blood Pressure O2 Sat by Pulse Oximetry O2 Sat by Pulse Oximetry [ Assessment] Constitutional: no acute distress (sedated), other (eldely obese female without increased respiratory effort at rest on MVS) Eyes: non-icteric ENT: oropharynx moist, other (trach [place] #[id number], cuffed; no bleeding) Neck: supple, no lymphadenopathy, no JVD Effort: mildly labored Ascultation: Bilateral: rhonchi Percussion: Bilateral: not dull Cardiovascular: regular rate and rhythm, other (S1,S2) Gastrointestinal: normoactive bowel sounds, soft, non-tender, non-distended, other (PEG) Integumentary: normal Extremities: no cyanosis, no edema, pulses normal, no ischemia or petechiae Neurologic: non-focal exam (moves all extremities), pupils equal and round, CN II-XII normal Psychiatric: other (sedated) CBC and BMP: 08/20/21 06:00 08/20/21 06:00 ABG, PT/INR, D-dimer: ABG ABG pH 7.401 (7.320-7.450) 08/19/21 13:45 POC ABG pCO2 39.8 mmHg (32.0-48.0) 08/19/21 13:45 ABG pCO2 46.6 mm Hg 08/17/21 21:23 POC ABG pO2 145.3 mmHg (83-108) H 08/19/21 13:45 ABG pO2 122.5 mm Hg (80.0-90.0) H 08/17/21 21:23 POC ABG HCO3 24.2 08/19/21 13:45 ABG O2 Saturation 99.0 (0-100) 08/19/21 13:45 PT/INR, D-dimer PT 14.5 Sec. (12.2-14.9) 08/12/21 21:41 INR 1.08 (0.87-1.13) 08/12/21 21:41 D-Dimer 852.47 ng/mlDDU (0-234) H 07/29/21 07:17 Abnormal lab findings: Abnormal Labs 07/27/21 07/27/21 07/27/21 22:57 22:57 22:57 WBC 20.3 H RBC Hgb Hct MCH MCHC RDW Lymph % (Auto) Lymph # (Auto) [place] # (Auto) Seg Neutrophils % Seg Neuts % (Manual) 89.0 H Lymphocytes % (Manual) 9.0 L Nucleated RBC % Seg Neutrophils # Seg Neutrophils # Man 18.1 H Lymphocytes # (Manual) Monocytes # (Manual) D-Dimer ABG pH POC ABG pCO2 POC ABG pO2 ABG pO2 ABG Hemoglobin ABG Oxyhemoglobin ABG Sodium ABG Potassium ABG Chloride ABG Glucose Carboxyhemoglobin Sodium Potassium 3.5 L Chloride 96.9 L Carbon Dioxide 20 L BUN 19 H Creatinine Glucose 204 H POC Glucose Lactic Acid 7.20 H* Calcium Magnesium AST 98 H ALT 90 H Total Protein Albumin Triglycerides Arterial Blood Glucose Arterial Blood Ionized Calcium Urine WBC (Auto) Urine Creatinine Crossmatch 07/28/21 07/28/21 07/28/21 01:31 07:49 10:00 WBC RBC Hgb Hct MCH MCHC RDW Lymph % (Auto) Lymph # (Auto) [place] # (Auto) Seg Neutrophils % Seg Neuts % (Manual) Lymphocytes % (Manual) Nucleated RBC % Seg Neutrophils # Seg Neutrophils # Man Lymphocytes # (Manual) Monocytes # (Manual) D-Dimer ABG pH POC ABG pCO2 POC ABG pO2 ABG pO2 ABG Hemoglobin ABG Oxyhemoglobin ABG Sodium ABG Potassium ABG Chloride ABG Glucose Carboxyhemoglobin Sodium Potassium Chloride Carbon Dioxide BUN Creatinine Glucose POC Glucose 194 H Lactic Acid 6.90 H* 6.70 H* Calcium Magnesium AST ALT Total Protein Albumin Triglycerides Arterial Blood Glucose Arterial Blood Ionized Calcium Urine WBC (Auto) Urine Creatinine Crossmatch 07/28/21 07/28/21 07/28/21 12:41 13:21 16:21 WBC RBC Hgb Hct MCH MCHC RDW Lymph % (Auto) Lymph # (Auto) [place] # (Auto) Seg Neutrophils % Seg Neuts % (Manual) Lymphocytes % (Manual) Nucleated RBC % Seg Neutrophils # Seg Neutrophils # Man Lymphocytes # (Manual) Monocytes # (Manual) D-Dimer ABG pH POC ABG pCO2 POC ABG pO2 ABG pO2 ABG Hemoglobin ABG Oxyhemoglobin ABG Sodium ABG Potassium ABG Chloride ABG Glucose Carboxyhemoglobin Sodium Potassium Chloride Carbon Dioxide BUN Creatinine Glucose POC Glucose 159 H 155 H Lactic Acid 6.10 H* Calcium Magnesium AST ALT Total Protein Albumin Triglycerides Arterial Blood Glucose Arterial Blood Ionized Calcium Urine WBC (Auto) Urine Creatinine Crossmatch 07/28/21 07/29/21 07/29/21 22:03 04:44 04:44 WBC 17.0 H RBC Hgb Hct MCH MCHC RDW Lymph % (Auto) Lymph # (Auto) [place] # (Auto) Seg Neutrophils % Seg Neuts % (Manual) 82.0 H Lymphocytes % (Manual) 11.0 L Nucleated RBC % Seg Neutrophils # Seg Neutrophils # Man 13.9 H Lymphocytes # (Manual) Monocytes # (Manual) 1.0 H D-Dimer ABG pH POC ABG pCO2 POC ABG pO2 ABG pO2 ABG Hemoglobin ABG Oxyhemoglobin ABG Sodium ABG Potassium ABG Chloride ABG Glucose Carboxyhemoglobin Sodium Potassium Chloride Carbon Dioxide BUN 23 H Creatinine Glucose 196 H POC Glucose 187 H Lactic Acid Calcium Magnesium AST ALT Total Protein Albumin Triglycerides Arterial Blood Glucose Arterial Blood Ionized Calcium Urine WBC (Auto) Urine Creatinine Crossmatch 07/29/21 07/29/21 07/29/21 06:56 07:17 07:17 WBC 26.1 H RBC Hgb Hct 43.3 H MCH MCHC RDW 16.0 H Lymph % (Auto) Lymph # (Auto) [place] # (Auto) Seg Neutrophils % Seg Neuts % (Manual) 80.0 H Lymphocytes % (Manual) Nucleated RBC % Seg Neutrophils # Seg Neutrophils # Man 20.9 H Lymphocytes # (Manual) Monocytes # (Manual) D-Dimer ABG pH POC ABG pCO2 POC ABG pO2 ABG pO2 ABG Hemoglobin ABG Oxyhemoglobin ABG Sodium ABG Potassium ABG Chloride ABG Glucose Carboxyhemoglobin Sodium Potassium Chloride Carbon Dioxide 20 L D BUN 23 H Creatinine Glucose 308 H POC Glucose 165 H Lactic Acid Calcium Magnesium AST ALT Total Protein Albumin Triglycerides Arterial Blood Glucose Arterial Blood Ionized Calcium Urine WBC (Auto) Urine Creatinine Crossmatch 07/29/21 07/29/21 07/29/21 07:17 09:16 10:30 WBC RBC Hgb Hct MCH MCHC RDW Lymph % (Auto) Lymph # (Auto) [place] # (Auto) Seg Neutrophils % Seg Neuts % (Manual) Lymphocytes % (Manual) Nucleated RBC % Seg Neutrophils # Seg Neutrophils # Man Lymphocytes # (Manual) Monocytes # (Manual) D-Dimer 852.47 H ABG pH 7.236 L POC ABG pCO2 56.0 H POC ABG pO2 266.4 H ABG pO2 ABG Hemoglobin ABG Oxyhemoglobin 99.1 H ABG Sodium 132.3 L ABG Potassium 4.9 H ABG Chloride ABG Glucose 202 H Carboxyhemoglobin 0.2 L Sodium Potassium Chloride Carbon Dioxide BUN Creatinine Glucose POC Glucose 271 H Lactic Acid Calcium Magnesium AST ALT Total Protein Albumin Triglycerides Arterial Blood Glucose 202 H Arterial Blood Ionized Calcium Urine WBC (Auto) Urine Creatinine Crossmatch 07/29/21 07/29/21 07/30/21 17:54 23:32 05:08 WBC RBC Hgb Hct MCH MCHC RDW Lymph % (Auto) Lymph # (Auto) [place] # (Auto) Seg Neutrophils % Seg Neuts % (Manual) Lymphocytes % (Manual) Nucleated RBC % Seg Neutrophils # Seg Neutrophils # Man Lymphocytes # (Manual) Monocytes # (Manual) D-Dimer ABG pH POC ABG pCO2 POC ABG pO2 ABG pO2 ABG Hemoglobin ABG Oxyhemoglobin ABG Sodium ABG Potassium ABG Chloride ABG Glucose Carboxyhemoglobin Sodium Potassium Chloride Carbon Dioxide BUN Creatinine Glucose POC Glucose 168 H 205 H 214 H Lactic Acid Calcium Magnesium AST ALT Total Protein Albumin Triglycerides Arterial Blood Glucose Arterial Blood Ionized Calcium Urine WBC (Auto) Urine Creatinine Crossmatch 07/30/21 07/30/21 07/30/21 06:01 11:32 17:34 WBC RBC Hgb Hct MCH MCHC RDW Lymph % (Auto) Lymph # (Auto) [place] # (Auto) Seg Neutrophils % Seg Neuts % (Manual) Lymphocytes % (Manual) Nucleated RBC % Seg Neutrophils # Seg Neutrophils # Man Lymphocytes # (Manual) Monocytes # (Manual) D-Dimer ABG pH 7.480 H POC ABG pCO2 23.6 L POC ABG pO2 280.0 H ABG pO2 ABG Hemoglobin ABG Oxyhemoglobin 99.3 H ABG Sodium 133.7 L ABG Potassium ABG Chloride ABG Glucose 232 H Carboxyhemoglobin 0 L Sodium Potassium Chloride Carbon Dioxide BUN Creatinine Glucose POC Glucose 207 H 239 H Lactic Acid Calcium Magnesium AST ALT Total Protein Albumin Triglycerides Arterial Blood Glucose 232 H Arterial Blood Ionized Calcium 4.4 L Urine WBC (Auto) Urine Creatinine Crossmatch 07/30/21 07/31/21 07/31/21 23:39 03:34 04:45 WBC 15.0 H RBC Hgb Hct MCH MCHC RDW 15.5 H Lymph % (Auto) Lymph # (Auto) [place] # (Auto) Seg Neutrophils % Seg Neuts % (Manual) 89.0 H Lymphocytes % (Manual) 7.0 L Nucleated RBC % Seg Neutrophils # Seg Neutrophils # Man 13.4 H Lymphocytes # (Manual) 1.1 L Monocytes # (Manual) D-Dimer ABG pH 7.481 H POC ABG pCO2 31.8 L POC ABG pO2 ABG pO2 ABG Hemoglobin ABG Oxyhemoglobin ABG Sodium 135.2 L ABG Potassium 3.3 L ABG Chloride ABG Glucose 188 H Carboxyhemoglobin 0.1 L Sodium Potassium Chloride Carbon Dioxide BUN Creatinine Glucose POC Glucose 176 H Lactic Acid Calcium Magnesium AST ALT Total Protein Albumin Triglycerides Arterial Blood Glucose 188 H Arterial Blood Ionized Calcium 4.4 L Urine WBC (Auto) Urine Creatinine Crossmatch 07/31/21 07/31/21 07/31/21 04:45 04:45 11:28 WBC RBC Hgb Hct MCH MCHC RDW Lymph % (Auto) Lymph # (Auto) [place] # (Auto) Seg Neutrophils % Seg Neuts % (Manual) Lymphocytes % (Manual) Nucleated RBC % Seg Neutrophils # Seg Neutrophils # Man Lymphocytes # (Manual) Monocytes # (Manual) D-Dimer ABG pH POC ABG pCO2 POC ABG pO2 ABG pO2 ABG Hemoglobin ABG Oxyhemoglobin ABG Sodium ABG Potassium ABG Chloride ABG Glucose Carboxyhemoglobin Sodium Potassium 3.4 L Chloride Carbon Dioxide BUN 61 H Creatinine 2.6 H D Glucose 176 H POC Glucose 195 H 245 H Lactic Acid Calcium Magnesium AST ALT Total Protein Albumin Triglycerides Arterial Blood Glucose Arterial Blood Ionized Calcium Urine WBC (Auto) Urine Creatinine Crossmatch 07/31/21 07/31/21 08/01/21 17:32 23:58 01:00 WBC RBC Hgb Hct MCH MCHC RDW Lymph % (Auto) Lymph # (Auto) [place] # (Auto) Seg Neutrophils % Seg Neuts % (Manual) Lymphocytes % (Manual) Nucleated RBC % Seg Neutrophils # Seg Neutrophils # Man Lymphocytes # (Manual) Monocytes # (Manual) D-Dimer ABG pH POC ABG pCO2 POC ABG pO2 ABG pO2 ABG Hemoglobin ABG Oxyhemoglobin ABG Sodium ABG Potassium ABG Chloride ABG Glucose 284 H Carboxyhemoglobin 0.3 L Sodium Potassium Chloride Carbon Dioxide BUN Creatinine Glucose POC Glucose 251 H 294 H Lactic Acid Calcium Magnesium AST ALT Total Protein Albumin Triglycerides Arterial Blood Glucose 284 H Arterial Blood Ionized Calcium Urine WBC (Auto) Urine Creatinine Crossmatch 08/01/21 08/01/21 08/01/21 05:50 05:50 06:11 WBC 16.2 H RBC Hgb Hct MCH MCHC RDW 15.5 H Lymph % (Auto) Lymph # (Auto) [place] # (Auto) Seg Neutrophils % Seg Neuts % (Manual) 93.0 H Lymphocytes % (Manual) 2.0 L Nucleated RBC % 3.0 H Seg Neutrophils # Seg Neutrophils # Man 15.1 H Lymphocytes # (Manual) 0.3 L Monocytes # (Manual) D-Dimer ABG pH POC ABG pCO2 POC ABG pO2 ABG pO2 ABG Hemoglobin ABG Oxyhemoglobin ABG Sodium ABG Potassium ABG Chloride ABG Glucose Carboxyhemoglobin Sodium Potassium Chloride Carbon Dioxide BUN 64 H Creatinine 1.9 H Glucose 277 H POC Glucose 256 H Lactic Acid Calcium Magnesium AST ALT Total Protein Albumin Triglycerides Arterial Blood Glucose Arterial Blood Ionized Calcium Urine WBC (Auto) Urine Creatinine Crossmatch 08/01/21 08/01/21 08/01/21 11:39 17:25 23:53 WBC RBC Hgb Hct MCH MCHC RDW Lymph % (Auto) Lymph # (Auto) [place] # (Auto) Seg Neutrophils % Seg Neuts % (Manual) Lymphocytes % (Manual) Nucleated RBC % Seg Neutrophils # Seg Neutrophils # Man Lymphocytes # (Manual) Monocytes # (Manual) D-Dimer ABG pH POC ABG pCO2 POC ABG pO2 ABG pO2 ABG Hemoglobin ABG Oxyhemoglobin ABG Sodium ABG Potassium ABG Chloride ABG Glucose Carboxyhemoglobin Sodium Potassium Chloride Carbon Dioxide BUN Creatinine Glucose POC Glucose 289 H 275 H 327 H Lactic Acid Calcium Magnesium AST ALT Total Protein Albumin Triglycerides Arterial Blood Glucose Arterial Blood Ionized Calcium Urine WBC (Auto) Urine Creatinine Crossmatch 08/01/21 08/02/21 08/02/21 Unknown 04:00 12:03 WBC RBC Hgb Hct MCH MCHC RDW Lymph % (Auto) Lymph # (Auto) [place] # (Auto) Seg Neutrophils % Seg Neuts % (Manual) Lymphocytes % (Manual) Nucleated RBC % Seg Neutrophils # Seg Neutrophils # Man Lymphocytes # (Manual) Monocytes # (Manual) D-Dimer ABG pH POC ABG pCO2 POC ABG pO2 ABG pO2 ABG Hemoglobin ABG Oxyhemoglobin ABG Sodium ABG Potassium ABG Chloride ABG Glucose 325 H Carboxyhemoglobin 0.4 L Sodium Potassium Chloride Carbon Dioxide BUN Creatinine Glucose POC Glucose 209 H Lactic Acid Calcium Magnesium AST ALT Total Protein Albumin Triglycerides Arterial Blood Glucose 325 H Arterial Blood Ionized Calcium Urine WBC (Auto) Urine Creatinine 125.6 H Crossmatch 08/02/21 08/02/21 08/02/21 15:30 17:03 23:17 WBC RBC Hgb Hct MCH MCHC RDW Lymph % (Auto) Lymph # (Auto) [place] # (Auto) Seg Neutrophils % Seg Neuts % (Manual) Lymphocytes % (Manual) Nucleated RBC % Seg Neutrophils # Seg Neutrophils # Man Lymphocytes # (Manual) Monocytes # (Manual) D-Dimer ABG pH POC ABG pCO2 POC ABG pO2 ABG pO2 ABG Hemoglobin ABG Oxyhemoglobin ABG Sodium ABG Potassium ABG Chloride ABG Glucose Carboxyhemoglobin Sodium Potassium Chloride Carbon Dioxide BUN Creatinine Glucose POC Glucose 210 H 265 H Lactic Acid Calcium Magnesium AST ALT Total Protein Albumin Triglycerides Arterial Blood Glucose Arterial Blood Ionized Calcium Urine WBC (Auto) 47.0 H Urine Creatinine Crossmatch 08/02/21 08/02/21 08/03/21 Unknown Unknown 04:17 WBC 14.1 H RBC Hgb Hct MCH MCHC RDW 16.3 H Lymph % (Auto) 5.1 L Lymph # (Auto) 0.7 L [place] # (Auto) 0.9 H Seg Neutrophils % 88.7 H Seg Neuts % (Manual) Lymphocytes % (Manual) Nucleated RBC % Seg Neutrophils # 12.5 H Seg Neutrophils # Man Lymphocytes # (Manual) Monocytes # (Manual) D-Dimer ABG pH POC ABG pCO2 POC ABG pO2 ABG pO2 ABG Hemoglobin ABG Oxyhemoglobin ABG Sodium ABG Potassium ABG Chloride ABG Glucose Carboxyhemoglobin Sodium Potassium Chloride Carbon Dioxide BUN 72 H 72 H Creatinine 1.8 H 1.6 H Glucose 307 H 263 H POC Glucose Lactic Acid Calcium Magnesium AST ALT Total Protein Albumin Triglycerides Arterial Blood Glucose Arterial Blood Ionized Calcium Urine WBC (Auto) Urine Creatinine Crossmatch 08/03/21 08/03/21 08/03/21 04:17 05:30 08:30 WBC 13.9 H RBC Hgb Hct MCH MCHC RDW 16.0 H Lymph % (Auto) Lymph # (Auto) [place] # (Auto) Seg Neutrophils % Seg Neuts % (Manual) Lymphocytes % (Manual) Nucleated RBC % Seg Neutrophils # Seg Neutrophils # Man Lymphocytes # (Manual) Monocytes # (Manual) D-Dimer ABG pH POC ABG pCO2 POC ABG pO2 ABG pO2 ABG Hemoglobin ABG Oxyhemoglobin ABG Sodium ABG Potassium ABG Chloride ABG Glucose Carboxyhemoglobin Sodium Potassium Chloride Carbon Dioxide BUN Creatinine Glucose POC Glucose 280 H Lactic Acid Calcium Magnesium 3.00 H AST ALT Total Protein Albumin Triglycerides Arterial Blood Glucose Arterial Blood Ionized Calcium Urine WBC (Auto) Urine Creatinine Crossmatch 08/03/21 08/03/21 08/03/21 12:14 13:39 15:11 WBC RBC Hgb Hct MCH MCHC RDW Lymph % (Auto) Lymph # (Auto) [place] # (Auto) Seg Neutrophils % Seg Neuts % (Manual) Lymphocytes % (Manual) Nucleated RBC % Seg Neutrophils # Seg Neutrophils # Man Lymphocytes # (Manual) Monocytes # (Manual) D-Dimer ABG pH POC ABG pCO2 POC ABG pO2 ABG pO2 ABG Hemoglobin ABG Oxyhemoglobin ABG Sodium ABG Potassium ABG Chloride ABG Glucose 306 H Carboxyhemoglobin 0.3 L Sodium Potassium Chloride Carbon Dioxide BUN Creatinine Glucose POC Glucose 287 H Lactic Acid 2.10 H* Calcium Magnesium AST ALT Total Protein Albumin Triglycerides Arterial Blood Glucose 306 H Arterial Blood Ionized Calcium Urine WBC (Auto) Urine Creatinine Crossmatch 08/03/21 08/03/21 08/04/21 16:52 23:08 04:00 WBC RBC Hgb Hct MCH MCHC RDW Lymph % (Auto) Lymph # (Auto) [place] # (Auto) Seg Neutrophils % Seg Neuts % (Manual) Lymphocytes % (Manual) Nucleated RBC % Seg Neutrophils # Seg Neutrophils # Man Lymphocytes # (Manual) Monocytes # (Manual) D-Dimer ABG pH POC ABG pCO2 54.3 H POC ABG pO2 82.2 L ABG pO2 ABG Hemoglobin ABG Oxyhemoglobin ABG Sodium 145.1 H ABG Potassium 5.0 H ABG Chloride ABG Glucose 316 H Carboxyhemoglobin 0.3 L Sodium Potassium Chloride Carbon Dioxide BUN Creatinine Glucose POC Glucose 282 H 289 H Lactic Acid Calcium Magnesium AST ALT Total Protein Albumin Triglycerides Arterial Blood Glucose 316 H Arterial Blood Ionized Calcium Urine WBC (Auto) Urine Creatinine Crossmatch 08/04/21 08/04/21 08/04/21 04:38 04:38 05:19 WBC 17.7 H RBC Hgb Hct MCH MCHC RDW 16.5 H Lymph % (Auto) Lymph # (Auto) [place] # (Auto) Seg Neutrophils % Seg Neuts % (Manual) Lymphocytes % (Manual) Nucleated RBC % Seg Neutrophils # Seg Neutrophils # Man Lymphocytes # (Manual) Monocytes # (Manual) D-Dimer ABG pH POC ABG pCO2 POC ABG pO2 ABG pO2 ABG Hemoglobin ABG Oxyhemoglobin ABG Sodium ABG Potassium ABG Chloride ABG Glucose Carboxyhemoglobin Sodium Potassium Chloride 108.3 H Carbon Dioxide BUN 76 H Creatinine 1.4 H Glucose 310 H POC Glucose 268 H Lactic Acid Calcium Magnesium 2.70 H AST ALT Total Protein Albumin Triglycerides Arterial Blood Glucose Arterial Blood Ionized Calcium Urine WBC (Auto) Urine Creatinine Crossmatch 08/04/21 08/04/21 08/04/21 11:48 16:41 23:49 WBC RBC Hgb Hct MCH MCHC RDW Lymph % (Auto) Lymph # (Auto) [place] # (Auto) Seg Neutrophils % Seg Neuts % (Manual) Lymphocytes % (Manual) Nucleated RBC % Seg Neutrophils # Seg Neutrophils # Man Lymphocytes # (Manual) Monocytes # (Manual) D-Dimer ABG pH POC ABG pCO2 POC ABG pO2 ABG pO2 ABG Hemoglobin ABG Oxyhemoglobin ABG Sodium ABG Potassium ABG Chloride ABG Glucose Carboxyhemoglobin Sodium Potassium Chloride Carbon Dioxide BUN Creatinine Glucose POC Glucose 197 H 208 H 209 H Lactic Acid Calcium Magnesium AST ALT Total Protein Albumin Triglycerides Arterial Blood Glucose Arterial Blood Ionized Calcium Urine WBC (Auto) Urine Creatinine Crossmatch 08/05/21 08/05/21 08/05/21 04:00 04:50 04:50 WBC 19.0 H RBC Hgb Hct MCH MCHC RDW 17.0 H Lymph % (Auto) Lymph # (Auto) [place] # (Auto) Seg Neutrophils % Seg Neuts % (Manual) 75.0 H Lymphocytes % (Manual) 2.0 L Nucleated RBC % Seg Neutrophils # Seg Neutrophils # Man 14.3 H Lymphocytes # (Manual) 0.4 L Monocytes # (Manual) 1.0 H D-Dimer ABG pH 7.314 L POC ABG pCO2 48.9 H POC ABG pO2 ABG pO2 ABG Hemoglobin ABG Oxyhemoglobin ABG Sodium ABG Potassium 5.0 H ABG Chloride 109.0 H ABG Glucose 234 H Carboxyhemoglobin 0.4 L Sodium Potassium 5.2 H Chloride 110.0 H Carbon Dioxide BUN 90 H Creatinine 1.8 H Glucose 235 H POC Glucose Lactic Acid Calcium Magnesium 2.60 H AST ALT Total Protein Albumin Triglycerides Arterial Blood Glucose 234 H Arterial Blood Ionized Calcium Urine WBC (Auto) Urine Creatinine Crossmatch 08/05/21 08/05/21 08/05/21 06:05 12:02 17:08 WBC RBC Hgb Hct MCH MCHC RDW Lymph % (Auto) Lymph # (Auto) [place] # (Auto) Seg Neutrophils % Seg Neuts % (Manual) Lymphocytes % (Manual) Nucleated RBC % Seg Neutrophils # Seg Neutrophils # Man Lymphocytes # (Manual) Monocytes # (Manual) D-Dimer ABG pH POC ABG pCO2 POC ABG pO2 ABG pO2 ABG Hemoglobin ABG Oxyhemoglobin ABG Sodium ABG Potassium ABG Chloride ABG Glucose Carboxyhemoglobin Sodium Potassium Chloride Carbon Dioxide BUN Creatinine Glucose POC Glucose 225 H 193 H 263 H Lactic Acid Calcium Magnesium AST ALT Total Protein Albumin Triglycerides Arterial Blood Glucose Arterial Blood Ionized Calcium Urine WBC (Auto) Urine Creatinine Crossmatch 08/05/21 08/06/21 08/06/21 23:34 05:00 05:00 WBC 16.8 H RBC 3.64 L Hgb Hct MCH MCHC RDW 16.6 H Lymph % (Auto) Lymph # (Auto) [place] # (Auto) Seg Neutrophils % Seg Neuts % (Manual) Lymphocytes % (Manual) Nucleated RBC % Seg Neutrophils # Seg Neutrophils # Man Lymphocytes # (Manual) Monocytes # (Manual) D-Dimer ABG pH POC ABG pCO2 POC ABG pO2 ABG pO2 ABG Hemoglobin ABG Oxyhemoglobin ABG Sodium ABG Potassium ABG Chloride ABG Glucose Carboxyhemoglobin Sodium Potassium Chloride 109.3 H Carbon Dioxide BUN 89 H Creatinine 1.6 H Glucose 197 H POC Glucose 224 H Lactic Acid Calcium 8.2 L Magnesium AST ALT Total Protein Albumin Triglycerides Arterial Blood Glucose Arterial Blood Ionized Calcium Urine WBC (Auto) Urine Creatinine Crossmatch 08/06/21 08/06/21 08/06/21 05:26 11:38 16:30 WBC RBC Hgb Hct MCH MCHC RDW Lymph % (Auto) Lymph # (Auto) [place] # (Auto) Seg Neutrophils % Seg Neuts % (Manual) Lymphocytes % (Manual) Nucleated RBC % Seg Neutrophils # Seg Neutrophils # Man Lymphocytes # (Manual) Monocytes # (Manual) D-Dimer ABG pH POC ABG pCO2 POC ABG pO2 ABG pO2 ABG Hemoglobin ABG Oxyhemoglobin ABG Sodium ABG Potassium ABG Chloride ABG Glucose Carboxyhemoglobin Sodium Potassium Chloride Carbon Dioxide BUN Creatinine Glucose POC Glucose 168 H 160 H 135 H Lactic Acid Calcium Magnesium AST ALT Total Protein Albumin Triglycerides Arterial Blood Glucose Arterial Blood Ionized Calcium Urine WBC (Auto) Urine Creatinine Crossmatch 08/06/21 08/07/21 08/07/21 23:08 04:00 04:00 WBC 13.6 H RBC 3.30 L Hgb 9.5 L Hct 29.2 L MCH MCHC RDW 16.7 H Lymph % (Auto) Lymph # (Auto) [place] # (Auto) Seg Neutrophils % Seg Neuts % (Manual) Lymphocytes % (Manual) Nucleated RBC % Seg Neutrophils # Seg Neutrophils # Man Lymphocytes # (Manual) Monocytes # (Manual) D-Dimer ABG pH POC ABG pCO2 POC ABG pO2 ABG pO2 ABG Hemoglobin ABG Oxyhemoglobin ABG Sodium ABG Potassium ABG Chloride ABG Glucose Carboxyhemoglobin Sodium 146 H Potassium Chloride 111.4 H Carbon Dioxide BUN 78 H Creatinine 1.5 H Glucose 143 H POC Glucose 125 H Lactic Acid Calcium 8.2 L Magnesium AST ALT Total Protein Albumin Triglycerides Arterial Blood Glucose Arterial Blood Ionized Calcium Urine WBC (Auto) Urine Creatinine Crossmatch 08/07/21 08/07/21 08/07/21 04:00 05:16 12:12 WBC RBC Hgb Hct MCH MCHC RDW Lymph % (Auto) Lymph # (Auto) [place] # (Auto) Seg Neutrophils % Seg Neuts % (Manual) Lymphocytes % (Manual) Nucleated RBC % Seg Neutrophils # Seg Neutrophils # Man Lymphocytes # (Manual) Monocytes # (Manual) D-Dimer ABG pH POC ABG pCO2 POC ABG pO2 80.1 L ABG pO2 ABG Hemoglobin 9.8 L ABG Oxyhemoglobin ABG Sodium ABG Potassium ABG Chloride 111.0 H ABG Glucose 157 H Carboxyhemoglobin 0.3 L Sodium Potassium Chloride Carbon Dioxide BUN Creatinine Glucose POC Glucose 144 H 125 H Lactic Acid Calcium Magnesium AST ALT Total Protein Albumin Triglycerides Arterial Blood Glucose 157 H Arterial Blood Ionized Calcium 4.5 L Urine WBC (Auto) Urine Creatinine Crossmatch 08/07/21 08/08/21 08/08/21 23:20 04:47 06:00 WBC 13.8 H RBC 3.19 L Hgb 9.3 L Hct 28.4 L MCH MCHC RDW 16.4 H Lymph % (Auto) Lymph # (Auto) [place] # (Auto) Seg Neutrophils % Seg Neuts % (Manual) Lymphocytes % (Manual) Nucleated RBC % Seg Neutrophils # Seg Neutrophils # Man Lymphocytes # (Manual) Monocytes # (Manual) D-Dimer ABG pH POC ABG pCO2 POC ABG pO2 ABG pO2 ABG Hemoglobin ABG Oxyhemoglobin ABG Sodium ABG Potassium ABG Chloride ABG Glucose Carboxyhemoglobin Sodium Potassium Chloride Carbon Dioxide BUN Creatinine Glucose POC Glucose 118 H 130 H Lactic Acid Calcium Magnesium AST ALT Total Protein Albumin Triglycerides Arterial Blood Glucose Arterial Blood Ionized Calcium Urine WBC (Auto) Urine Creatinine Crossmatch 08/08/21 08/08/21 08/08/21 06:00 11:33 17:54 WBC RBC Hgb Hct MCH MCHC RDW Lymph % (Auto) Lymph # (Auto) [place] # (Auto) Seg Neutrophils % Seg Neuts % (Manual) Lymphocytes % (Manual) Nucleated RBC % Seg Neutrophils # Seg Neutrophils # Man Lymphocytes # (Manual) Monocytes # (Manual) D-Dimer ABG pH POC ABG pCO2 POC ABG pO2 ABG pO2 ABG Hemoglobin ABG Oxyhemoglobin ABG Sodium ABG Potassium ABG Chloride ABG Glucose Carboxyhemoglobin Sodium 147 H Potassium Chloride 112.4 H Carbon Dioxide BUN 71 H Creatinine 1.4 H Glucose 124 H POC Glucose 126 H 124 H Lactic Acid Calcium Magnesium AST ALT Total Protein Albumin Triglycerides Arterial Blood Glucose Arterial Blood Ionized Calcium Urine WBC (Auto) Urine Creatinine Crossmatch 08/08/21 08/09/21 08/09/21 23:41 06:06 10:00 WBC RBC Hgb Hct MCH MCHC RDW Lymph % (Auto) Lymph # (Auto) [place] # (Auto) Seg Neutrophils % Seg Neuts % (Manual) Lymphocytes % (Manual) Nucleated RBC % Seg Neutrophils # Seg Neutrophils # Man Lymphocytes # (Manual) Monocytes # (Manual) D-Dimer ABG pH POC ABG pCO2 POC ABG pO2 ABG pO2 ABG Hemoglobin ABG Oxyhemoglobin ABG Sodium ABG Potassium ABG Chloride ABG Glucose Carboxyhemoglobin Sodium 146 H Potassium Chloride 111.3 H Carbon Dioxide BUN 72 H Creatinine 1.5 H Glucose 119 H POC Glucose 119 H 127 H Lactic Acid Calcium Magnesium AST ALT 69 H Total Protein 5.2 L Albumin 2.6 L Triglycerides Arterial Blood Glucose Arterial Blood Ionized Calcium Urine WBC (Auto) Urine Creatinine Crossmatch 08/09/21 08/09/21 08/09/21 10:00 11:34 16:50 WBC 13.0 H RBC 2.88 L Hgb 8.5 L Hct 25.8 L MCH MCHC RDW 16.5 H Lymph % (Auto) Lymph # (Auto) [place] # (Auto) Seg Neutrophils % Seg Neuts % (Manual) Lymphocytes % (Manual) Nucleated RBC % Seg Neutrophils # Seg Neutrophils # Man Lymphocytes # (Manual) Monocytes # (Manual) D-Dimer ABG pH POC ABG pCO2 POC ABG pO2 ABG pO2 ABG Hemoglobin ABG Oxyhemoglobin ABG Sodium ABG Potassium ABG Chloride ABG Glucose Carboxyhemoglobin Sodium Potassium Chloride Carbon Dioxide BUN Creatinine Glucose POC Glucose 114 H 117 H Lactic Acid Calcium Magnesium AST ALT Total Protein Albumin Triglycerides Arterial Blood Glucose Arterial Blood Ionized Calcium Urine WBC (Auto) Urine Creatinine Crossmatch 08/10/21 08/10/21 08/10/21 00:12 05:20 05:20 WBC 13.2 H RBC 2.92 L Hgb 8.4 L Hct 25.9 L MCH MCHC RDW 16.7 H Lymph % (Auto) Lymph # (Auto) [place] # (Auto) Seg Neutrophils % Seg Neuts % (Manual) Lymphocytes % (Manual) Nucleated RBC % Seg Neutrophils # Seg Neutrophils # Man Lymphocytes # (Manual) Monocytes # (Manual) D-Dimer ABG pH POC ABG pCO2 POC ABG pO2 ABG pO2 ABG Hemoglobin ABG Oxyhemoglobin ABG Sodium ABG Potassium ABG Chloride ABG Glucose Carboxyhemoglobin Sodium 147 H Potassium Chloride 111.8 H Carbon Dioxide BUN 68 H Creatinine 1.4 H Glucose POC Glucose 114 H Lactic Acid Calcium Magnesium AST ALT Total Protein Albumin Triglycerides Arterial Blood Glucose Arterial Blood Ionized Calcium Urine WBC (Auto) Urine Creatinine Crossmatch 08/10/21 08/10/21 08/11/21 17:52 18:23 02:51 WBC RBC Hgb Hct MCH MCHC RDW Lymph % (Auto) Lymph # (Auto) [place] # (Auto) Seg Neutrophils % Seg Neuts % (Manual) Lymphocytes % (Manual) Nucleated RBC % Seg Neutrophils # Seg Neutrophils # Man Lymphocytes # (Manual) Monocytes # (Manual) D-Dimer ABG pH POC ABG pCO2 POC ABG pO2 ABG pO2 ABG Hemoglobin 8.7 L ABG Oxyhemoglobin ABG Sodium ABG Potassium ABG Chloride 111.0 H ABG Glucose Carboxyhemoglobin 0.2 L Sodium Potassium Chloride Carbon Dioxide BUN Creatinine Glucose POC Glucose 55 L 133 H Lactic Acid Calcium Magnesium AST ALT Total Protein Albumin Triglycerides Arterial Blood Glucose Arterial Blood Ionized Calcium 4.5 L Urine WBC (Auto) Urine Creatinine Crossmatch 08/11/21 08/11/21 08/11/21 04:30 11:36 17:11 WBC RBC Hgb Hct MCH MCHC RDW Lymph % (Auto) Lymph # (Auto) [place] # (Auto) Seg Neutrophils % Seg Neuts % (Manual) Lymphocytes % (Manual) Nucleated RBC % Seg Neutrophils # Seg Neutrophils # Man Lymphocytes # (Manual) Monocytes # (Manual) D-Dimer ABG pH POC ABG pCO2 POC ABG pO2 ABG pO2 ABG Hemoglobin ABG Oxyhemoglobin ABG Sodium ABG Potassium ABG Chloride ABG Glucose Carboxyhemoglobin Sodium Potassium Chloride 110.0 H Carbon Dioxide BUN 59 H Creatinine Glucose POC Glucose 116 H 115 H Lactic Acid Calcium 8.3 L Magnesium AST ALT 64 H Total Protein 5.5 L Albumin 2.6 L Triglycerides Arterial Blood Glucose Arterial Blood Ionized Calcium Urine WBC (Auto) Urine Creatinine Crossmatch 08/11/21 08/11/21 08/12/21 23:18 Unknown 05:05 WBC 12.2 H RBC 2.81 L Hgb 8.4 L Hct 25.4 L MCH MCHC RDW 17.0 H Lymph % (Auto) Lymph # (Auto) [place] # (Auto) Seg Neutrophils % Seg Neuts % (Manual) Lymphocytes % (Manual) Nucleated RBC % Seg Neutrophils # Seg Neutrophils # Man Lymphocytes # (Manual) Monocytes # (Manual) D-Dimer ABG pH POC ABG pCO2 POC ABG pO2 ABG pO2 ABG Hemoglobin ABG Oxyhemoglobin ABG Sodium ABG Potassium ABG Chloride ABG Glucose Carboxyhemoglobin Sodium Potassium Chloride Carbon Dioxide BUN Creatinine Glucose POC Glucose 126 H 131 H Lactic Acid Calcium Magnesium AST ALT Total Protein Albumin Triglycerides Arterial Blood Glucose Arterial Blood Ionized Calcium Urine WBC (Auto) Urine Creatinine Crossmatch 08/12/21 08/12/21 08/12/21 12:14 17:19 21:41 WBC 16.5 H RBC 3.04 L Hgb 8.9 L Hct 27.3 L MCH MCHC RDW 17.0 H Lymph % (Auto) 9.0 L Lymph # (Auto) [place] # (Auto) 1.1 H Seg Neutrophils % 83.7 H Seg Neuts % (Manual) Lymphocytes % (Manual) Nucleated RBC % Seg Neutrophils # 13.8 H Seg Neutrophils # Man Lymphocytes # (Manual) Monocytes # (Manual) D-Dimer ABG pH POC ABG pCO2 POC ABG pO2 ABG pO2 ABG Hemoglobin ABG Oxyhemoglobin ABG Sodium ABG Potassium ABG Chloride ABG Glucose Carboxyhemoglobin Sodium Potassium Chloride Carbon Dioxide BUN Creatinine Glucose POC Glucose 123 H 129 H Lactic Acid Calcium Magnesium AST ALT Total Protein Albumin Triglycerides Arterial Blood Glucose Arterial Blood Ionized Calcium Urine WBC (Auto) Urine Creatinine Crossmatch 08/12/21 08/12/21 08/13/21 21:41 23:26 05:24 WBC RBC Hgb Hct MCH MCHC RDW Lymph % (Auto) Lymph # (Auto) [place] # (Auto) Seg Neutrophils % Seg Neuts % (Manual) Lymphocytes % (Manual) Nucleated RBC % Seg Neutrophils # Seg Neutrophils # Man Lymphocytes # (Manual) Monocytes # (Manual) D-Dimer ABG pH POC ABG pCO2 POC ABG pO2 ABG pO2 ABG Hemoglobin ABG Oxyhemoglobin ABG Sodium ABG Potassium ABG Chloride ABG Glucose Carboxyhemoglobin Sodium 147 H Potassium Chloride 110.7 H Carbon Dioxide BUN 48 H Creatinine Glucose 147 H POC Glucose 133 H 109 H Lactic Acid Calcium Magnesium AST ALT Total Protein Albumin Triglycerides Arterial Blood Glucose Arterial Blood Ionized Calcium Urine WBC (Auto) Urine Creatinine Crossmatch 08/13/21 08/13/21 08/13/21 05:43 11:36 18:00 WBC RBC Hgb Hct MCH MCHC RDW Lymph % (Auto) Lymph # (Auto) [place] # (Auto) Seg Neutrophils % Seg Neuts % (Manual) Lymphocytes % (Manual) Nucleated RBC % Seg Neutrophils # Seg Neutrophils # Man Lymphocytes # (Manual) Monocytes # (Manual) D-Dimer ABG pH POC ABG pCO2 POC ABG pO2 76.8 L ABG pO2 ABG Hemoglobin 8.6 L ABG Oxyhemoglobin ABG Sodium ABG Potassium ABG Chloride 112.0 H ABG Glucose 126 H Carboxyhemoglobin 0.4 L Sodium Potassium Chloride Carbon Dioxide BUN Creatinine Glucose POC Glucose 127 H 128 H Lactic Acid Calcium Magnesium AST ALT Total Protein Albumin Triglycerides Arterial Blood Glucose 126 H Arterial Blood Ionized Calcium 4.4 L Urine WBC (Auto) Urine Creatinine Crossmatch 08/13/21 08/14/21 08/14/21 23:27 04:00 04:00 WBC RBC 2.65 L Hgb 8.1 L Hct 24.0 L MCH MCHC RDW 17.1 H Lymph % (Auto) Lymph # (Auto) [place] # (Auto) Seg Neutrophils % Seg Neuts % (Manual) Lymphocytes % (Manual) Nucleated RBC % Seg Neutrophils # Seg Neutrophils # Man Lymphocytes # (Manual) Monocytes # (Manual) D-Dimer ABG pH POC ABG pCO2 POC ABG pO2 ABG pO2 ABG Hemoglobin ABG Oxyhemoglobin ABG Sodium ABG Potassium ABG Chloride ABG Glucose Carboxyhemoglobin Sodium 146 H Potassium Chloride 108.7 H Carbon Dioxide 31 H BUN 38 H Creatinine Glucose 115 H POC Glucose 125 H Lactic Acid Calcium Magnesium AST ALT Total Protein 5.8 L Albumin 2.6 L Triglycerides Arterial Blood Glucose Arterial Blood Ionized Calcium Urine WBC (Auto) Urine Creatinine Crossmatch 08/14/21 08/14/21 08/15/21 05:24 11:34 05:16 WBC RBC Hgb Hct MCH MCHC RDW Lymph % (Auto) Lymph # (Auto) [place] # (Auto) Seg Neutrophils % Seg Neuts % (Manual) Lymphocytes % (Manual) Nucleated RBC % Seg Neutrophils # Seg Neutrophils # Man Lymphocytes # (Manual) Monocytes # (Manual) D-Dimer ABG pH POC ABG pCO2 POC ABG pO2 ABG pO2 ABG Hemoglobin ABG Oxyhemoglobin ABG Sodium ABG Potassium ABG Chloride ABG Glucose Carboxyhemoglobin Sodium Potassium Chloride Carbon Dioxide BUN Creatinine Glucose POC Glucose 126 H 126 H 110 H Lactic Acid Calcium Magnesium AST ALT Total Protein Albumin Triglycerides Arterial Blood Glucose Arterial Blood Ionized Calcium Urine WBC (Auto) Urine Creatinine Crossmatch 08/15/21 08/15/21 08/15/21 11:37 17:48 Unknown WBC RBC 2.53 L Hgb 7.7 L Hct 23.0 L MCH MCHC RDW 17.0 H Lymph % (Auto) 12.5 L Lymph # (Auto) 1.0 L [place] # (Auto) Seg Neutrophils % 80.4 H Seg Neuts % (Manual) Lymphocytes % (Manual) Nucleated RBC % Seg Neutrophils # Seg Neutrophils # Man Lymphocytes # (Manual) Monocytes # (Manual) D-Dimer ABG pH POC ABG pCO2 POC ABG pO2 ABG pO2 ABG Hemoglobin ABG Oxyhemoglobin ABG Sodium ABG Potassium ABG Chloride ABG Glucose Carboxyhemoglobin Sodium Potassium Chloride Carbon Dioxide BUN Creatinine Glucose POC Glucose 106 H 110 H Lactic Acid Calcium Magnesium AST ALT Total Protein Albumin Triglycerides Arterial Blood Glucose Arterial Blood Ionized Calcium Urine WBC (Auto) Urine Creatinine Crossmatch 08/15/21 08/16/21 08/16/21 Unknown 05:40 12:00 WBC RBC Hgb Hct MCH MCHC RDW Lymph % (Auto) Lymph # (Auto) [place] # (Auto) Seg Neutrophils % Seg Neuts % (Manual) Lymphocytes % (Manual) Nucleated RBC % Seg Neutrophils # Seg Neutrophils # Man Lymphocytes # (Manual) Monocytes # (Manual) D-Dimer ABG pH POC ABG pCO2 POC ABG pO2 ABG pO2 ABG Hemoglobin ABG Oxyhemoglobin ABG Sodium ABG Potassium ABG Chloride ABG Glucose Carboxyhemoglobin Sodium Potassium Chloride 107.2 H Carbon Dioxide BUN 36 H Creatinine Glucose 109 H POC Glucose 111 H 114 H Lactic Acid Calcium Magnesium AST ALT 63 H Total Protein 5.5 L Albumin 2.4 L Triglycerides Arterial Blood Glucose Arterial Blood Ionized Calcium Urine WBC (Auto) Urine Creatinine Crossmatch 08/16/21 08/16/21 08/16/21 12:36 12:36 17:08 WBC RBC 2.54 L Hgb 7.3 L Hct 22.8 L MCH MCHC RDW 17.1 H Lymph % (Auto) Lymph # (Auto) [place] # (Auto) Seg Neutrophils % Seg Neuts % (Manual) Lymphocytes % (Manual) Nucleated RBC % Seg Neutrophils # Seg Neutrophils # Man Lymphocytes # (Manual) Monocytes # (Manual) D-Dimer ABG pH POC ABG pCO2 POC ABG pO2 ABG pO2 ABG Hemoglobin ABG Oxyhemoglobin ABG Sodium ABG Potassium ABG Chloride ABG Glucose Carboxyhemoglobin Sodium Potassium Chloride Carbon Dioxide BUN 39 H Creatinine Glucose 123 H POC Glucose 112 H Lactic Acid Calcium Magnesium AST ALT Total Protein Albumin Triglycerides Arterial Blood Glucose Arterial Blood Ionized Calcium Urine WBC (Auto) Urine Creatinine Crossmatch 08/17/21 08/17/21 08/17/21 05:26 07:27 11:19 WBC RBC Hgb Hct MCH MCHC RDW Lymph % (Auto) Lymph # (Auto) [place] # (Auto) Seg Neutrophils % Seg Neuts % (Manual) Lymphocytes % (Manual) Nucleated RBC % Seg Neutrophils # Seg Neutrophils # Man Lymphocytes # (Manual) Monocytes # (Manual) D-Dimer ABG pH 7.292 L POC ABG pCO2 52.2 H POC ABG pO2 80.8 L ABG pO2 ABG Hemoglobin 9.2 L ABG Oxyhemoglobin 93.8 L ABG Sodium 135.3 L ABG Potassium ABG Chloride ABG Glucose 135 H Carboxyhemoglobin 0.2 L Sodium Potassium Chloride Carbon Dioxide BUN Creatinine Glucose POC Glucose 121 H 137 H Lactic Acid Calcium Magnesium AST ALT Total Protein Albumin Triglycerides Arterial Blood Glucose 135 H Arterial Blood Ionized Calcium Urine WBC (Auto) Urine Creatinine Crossmatch 08/17/21 08/17/21 08/17/21 17:20 21:23 Unknown WBC RBC 2.49 L Hgb 7.5 L Hct 22.2 L MCH MCHC RDW 16.5 H Lymph % (Auto) Lymph # (Auto) [place] # (Auto) Seg Neutrophils % Seg Neuts % (Manual) Lymphocytes % (Manual) Nucleated RBC % Seg Neutrophils # Seg Neutrophils # Man Lymphocytes # (Manual) Monocytes # (Manual) D-Dimer ABG pH 7.337 L POC ABG pCO2 POC ABG pO2 ABG pO2 122.5 H ABG Hemoglobin 7.6 L ABG Oxyhemoglobin ABG Sodium ABG Potassium ABG Chloride ABG Glucose Carboxyhemoglobin Sodium Potassium Chloride Carbon Dioxide BUN Creatinine Glucose POC Glucose 106 H Lactic Acid Calcium Magnesium AST ALT Total Protein Albumin Triglycerides Arterial Blood Glucose Arterial Blood Ionized Calcium Urine WBC (Auto) Urine Creatinine Crossmatch 08/17/21 08/18/21 08/18/21 Unknown 00:04 05:10 WBC RBC 2.65 L Hgb 7.9 L Hct 23.7 L MCH MCHC RDW 17.0 H Lymph % (Auto) Lymph # (Auto) [place] # (Auto) Seg Neutrophils % Seg Neuts % (Manual) Lymphocytes % (Manual) Nucleated RBC % Seg Neutrophils # Seg Neutrophils # Man Lymphocytes # (Manual) Monocytes # (Manual) D-Dimer ABG pH POC ABG pCO2 POC ABG pO2 ABG pO2 ABG Hemoglobin ABG Oxyhemoglobin ABG Sodium ABG Potassium ABG Chloride ABG Glucose Carboxyhemoglobin Sodium Potassium Chloride Carbon Dioxide BUN 37 H Creatinine Glucose 117 H POC Glucose 107 H Lactic Acid Calcium Magnesium AST ALT Total Protein Albumin Triglycerides Arterial Blood Glucose Arterial Blood Ionized Calcium Urine WBC (Auto) Urine Creatinine Crossmatch 08/18/21 08/18/21 08/18/21 05:10 05:10 05:40 WBC RBC Hgb Hct MCH MCHC RDW Lymph % (Auto) Lymph # (Auto) [place] # (Auto) Seg Neutrophils % Seg Neuts % (Manual) Lymphocytes % (Manual) Nucleated RBC % Seg Neutrophils # Seg Neutrophils # Man Lymphocytes # (Manual) Monocytes # (Manual) D-Dimer ABG pH POC ABG pCO2 POC ABG pO2 ABG pO2 ABG Hemoglobin ABG Oxyhemoglobin ABG Sodium ABG Potassium ABG Chloride ABG Glucose Carboxyhemoglobin Sodium 136 L Potassium Chloride Carbon Dioxide BUN 41 H Creatinine Glucose 122 H POC Glucose 122 H Lactic Acid Calcium Magnesium AST ALT Total Protein Albumin Triglycerides Arterial Blood Glucose Arterial Blood Ionized Calcium Urine WBC (Auto) Urine Creatinine Crossmatch See Detail 08/18/21 08/18/21 08/18/21 11:47 18:21 23:53 WBC RBC Hgb Hct MCH MCHC RDW Lymph % (Auto) Lymph # (Auto) [place] # (Auto) Seg Neutrophils % Seg Neuts % (Manual) Lymphocytes % (Manual) Nucleated RBC % Seg Neutrophils # Seg Neutrophils # Man Lymphocytes # (Manual) Monocytes # (Manual) D-Dimer ABG pH POC ABG pCO2 POC ABG pO2 ABG pO2 ABG Hemoglobin ABG Oxyhemoglobin ABG Sodium ABG Potassium ABG Chloride ABG Glucose Carboxyhemoglobin Sodium Potassium Chloride Carbon Dioxide BUN Creatinine Glucose POC Glucose 126 H 110 H 114 H Lactic Acid Calcium Magnesium AST ALT Total Protein Albumin Triglycerides Arterial Blood Glucose Arterial Blood Ionized Calcium Urine WBC (Auto) Urine Creatinine Crossmatch 08/19/21 08/19/21 08/19/21 03:20 03:20 05:21 WBC RBC 2.74 L Hgb 8.5 L Hct 24.8 L MCH MCHC RDW 16.8 H Lymph % (Auto) Lymph # (Auto) [place] # (Auto) Seg Neutrophils % Seg Neuts % (Manual) Lymphocytes % (Manual) Nucleated RBC % Seg Neutrophils # Seg Neutrophils # Man Lymphocytes # (Manual) Monocytes # (Manual) D-Dimer ABG pH POC ABG pCO2 POC ABG pO2 ABG pO2 ABG Hemoglobin ABG Oxyhemoglobin ABG Sodium ABG Potassium ABG Chloride ABG Glucose Carboxyhemoglobin Sodium 133 L Potassium Chloride Carbon Dioxide BUN 40 H Creatinine Glucose 110 H POC Glucose 107 H Lactic Acid Calcium Magnesium AST ALT Total Protein Albumin Triglycerides Arterial Blood Glucose Arterial Blood Ionized Calcium Urine WBC (Auto) Urine Creatinine Crossmatch 08/19/21 08/19/21 08/19/21 11:41 13:45 17:23 WBC RBC Hgb Hct MCH MCHC RDW Lymph % (Auto) Lymph # (Auto) [place] # (Auto) Seg Neutrophils % Seg Neuts % (Manual) Lymphocytes % (Manual) Nucleated RBC % Seg Neutrophils # Seg Neutrophils # Man Lymphocytes # (Manual) Monocytes # (Manual) D-Dimer ABG pH POC ABG pCO2 POC ABG pO2 145.3 H ABG pO2 ABG Hemoglobin 10.0 L ABG Oxyhemoglobin 98.4 H ABG Sodium 134.0 L ABG Potassium ABG Chloride ABG Glucose 141 H Carboxyhemoglobin 0.3 L Sodium Potassium Chloride Carbon Dioxide BUN Creatinine Glucose POC Glucose 124 H 133 H Lactic Acid Calcium Magnesium AST ALT Total Protein Albumin Triglycerides Arterial Blood Glucose 141 H Arterial Blood Ionized Calcium Urine WBC (Auto) Urine Creatinine Crossmatch 08/19/21 08/20/21 08/20/21 23:32 06:00 06:00 WBC RBC 2.53 L Hgb 8.3 L Hct 22.6 L MCH 33 H MCHC 37 H RDW 17.0 H Lymph % (Auto) Lymph # (Auto) [place] # (Auto) Seg Neutrophils % Seg Neuts % (Manual) Lymphocytes % (Manual) Nucleated RBC % Seg Neutrophils # Seg Neutrophils # Man Lymphocytes # (Manual) Monocytes # (Manual) D-Dimer ABG pH POC ABG pCO2 POC ABG pO2 ABG pO2 ABG Hemoglobin ABG Oxyhemoglobin ABG Sodium ABG Potassium ABG Chloride ABG Glucose Carboxyhemoglobin Sodium Potassium Chloride Carbon Dioxide BUN Creatinine Glucose POC Glucose 107 H Lactic Acid Calcium Magnesium AST ALT Total Protein Albumin Triglycerides 1492 H Arterial Blood Glucose Arterial Blood Ionized Calcium Urine WBC (Auto) Urine Creatinine Crossmatch 08/20/21 06:00 WBC RBC Hgb Hct MCH MCHC RDW Lymph % (Auto) Lymph # (Auto) [place] # (Auto) Seg Neutrophils % Seg Neuts % (Manual) Lymphocytes % (Manual) Nucleated RBC % Seg Neutrophils # Seg Neutrophils # Man Lymphocytes # (Manual) Monocytes # (Manual) D-Dimer ABG pH POC ABG pCO2 POC ABG pO2 ABG pO2 ABG Hemoglobin ABG Oxyhemoglobin ABG Sodium ABG Potassium ABG Chloride ABG Glucose Carboxyhemoglobin Sodium 134 L Potassium Chloride Carbon Dioxide BUN 42 H Creatinine Glucose 102 H POC Glucose Lactic Acid Calcium 8.1 L Magnesium AST < 5 L ALT < 5 L Total Protein 4.7 L Albumin 2.2 L Triglycerides Arterial Blood Glucose Arterial Blood Ionized Calcium Urine WBC (Auto) Urine Creatinine Crossmatch Chest x-ray: image reviewed (no large volume atelectasis in lung [place]) Allied health notes reviewed: nursing
[2021-08-20] MEDS: MIDAZOLAM 2 MG/2 ML INJ IV PRN ×3 (16:50→18:33)
[2021-08-20] MEDS: MIDAZOLAM 100 MG in SODIUM CHLORIDE 0.9% 80 ML IV SCH (17:08)
[2021-08-20] MEDS: methylPREDNISolone Sod Succinate 125 MG/2 ML INJ IV SCH (17:18)
[2021-08-20 23:50] LABS: Myeloperoxidase Antibody SEE SCANNED RESULT
[2021-08-21 01:33] LABS: Abnormal Protein Band 1 SEE SCANNED RESULT; Abnormal Protein Band 2 SEE SCANNED RESULT; Albumin SEE SCANNED RESULT; Gamma Globulin SEE SCANNED RESULT; Interpretation SEE SCANNED RESULT
[2021-08-21] MEDS: fentaNYL DRIP Premix 2,000 MCG/100 ML BAG IV SCH ×5 (01:45→21:56)
[2021-08-21] MEDS: INSULIN LISPRO 100 UNIT/ML SUB-Q SCH ×4 (01:46→17:12)
[2021-08-21] MEDS: methylPREDNISolone Sod Succinate 125 MG/2 ML INJ IV SCH ×2 (01:50→13:26)
[2021-08-21] MEDS: SENNOSIDES/DOCUSATE SODIUM 8.6/50 MG TAB FEEDTUBE SCH ×3 (06:16→21:55)
[2021-08-21] MEDS: MIDAZOLAM 100 MG in SODIUM CHLORIDE 0.9% 80 ML IV SCH (06:16)
[2021-08-21] MEDS: IPRATROPIUM/ALBUTEROL SULFATE 3 ML AMPUL.NEB IH SCH ×3 (08:36→20:17)
[2021-08-21] MEDS: BUDESONIDE 0.5 MG/2 ML NEBU IH SCH ×2 (08:36→20:17)
[2021-08-21] MEDS: ARFORMOTEROL 15 MCG/2 ML NEBU IH SCH ×2 (08:36→20:17)
[2021-08-21] MEDS: ENOXAPARIN 40 MG/0.4 ML INJ SUB-Q SCH (10:18)
[2021-08-21] MEDS: QUEtiapine 100 MG TAB PO SCH ×2 (10:18→21:53)
[2021-08-21] MEDS: FAMOTIDINE 20 MG TAB FEEDTUBE SCH ×2 (10:19→21:54)
[2021-08-21] MEDS: FREE WATER PO SCH ×4 (10:19→17:13)
[2021-08-21] MEDS: POLYETHYLENE GLYCOL 3350 17 GM POWDER PO SCH (10:19)
--- NOTE | 2021-08-21 12:59 | Progress Note ---
Assessment and Plan Acute hypoxemic respiratory failure secondary Lung Mass (? Lung vs Breast CA) Acute COPD exacerbation Possible hypercapnia History of right breast cancer Leukocytosis DM II Hypertension Hyperlipidemia Tobacco use disorder - awaiting transfer to LTAC - lipase WNL and TG's now WNL - continue TV 350 re: high PIP's - hopefully can be seen by radiological oncologist +/- RTX to central lesions / mediastinopathy - continue care as below otherwise; - continue daily SAT and SBT assessment as tolerated - s/p full anticoagulation for VTE - continue Seroquel to spare IV sedatives - azotemia per nephrology - continue to wean supplemental oxygen for target O2 sat's > 90% acutely - VAP bundle addressed - continue lung protective strategies - continue bronchodilators (GLADIS & LABA) with pulmonary hygiene per RT - wean per pulmonary driven protocols otherwise - continue accuchecks with glycemic control per SSI (While critically ill target blood glucose of 140-180 mg/dL; avoid hypoglycemia) - sedation prn for target RASS 0 to -1 - avoid nephrotoxins, renally dose all medications - continue to avoid benzodiazepine's, reduce the possibility of delirium - complete AB's per ID rec's - prn analgesia per CPOT score - Maintenance of sleep-wake cycle, avoid delirium - enteral nutritional support at goal rate as tolerated - G.I. & VTE prophylaxis - PT/OT/ROM exercises - continue mobility protocols for pressure ulcer prophylaxis - Monitor hemodynamics closely - continue other care per attending / other consultants - discharge planning ongoing concurrently COVID SPECIFIC INTERVENTIONS - test result pending .... Re-evaluate in am & prn CONDITION: CRITICAL PROGNOSIS: GUARDED CODE STATUS: FULL CODE The high probability of a clinically significant, sudden or life-threatening deterioration of the [respiratory, cardiovascular, oncological & neurologic] system(s) required my full and direct attention, intervention and personal management. The aggregate critical care time was [34] minutes without overlap. Time includes spent on; [x] Data Review and interpretation [x] Patient assessment and monitoring of vital signs [x] Documentation [x] Medication orders and management Subjective Date of service: 08/21/21 Principal diagnosis: Ac hypoxemic resp failure ; AE-COPD; H/O CA Breast; DM II; HTN Interval history: Patient is seen today for: Acute hypoxemic respiratory failure; AE-COPD; Possibl e hypercapnia; H/O CA Breast; DM II; HTN Seen and examined at bedside; 24hour events reviewed; nursing and respiratory care staff consulted; no adverse overnight events reported to me; resting in bed; remains on MVS; sedated due to increased work of breathing with SAT's; aw aiting LTAC transfer; no gross bleeding; no emesis or overt aspiration Objective Vital Signs - 12hr 08/21/21 08/21/21 08/21/21 01:00 01:15 01:30 Temperature Pulse Rate 78 77 76 Pulse Rate [ Anterior Bilateral] Pulse Rate [ From Monitor] Respiratory 12 13 13 Rate Respiratory Rate [Anterior Bilateral] Blood Pressure 104/53 104/53 105/52 O2 Sat by Pulse 93 99 94 Oximetry O2 Sat by Pulse Oximetry [ Assessment] 08/21/21 08/21/21 08/21/21 01:45 02:00 02:15 Temperature Pulse Rate 77 76 75 Pulse Rate [ Anterior Bilateral] Pulse Rate [ From Monitor] Respiratory 13 12 12 Rate Respiratory Rate [Anterior Bilateral] Blood Pressure 101/57 110/56 110/56 O2 Sat by Pulse 93 93 99 Oximetry O2 Sat by Pulse Oximetry [ Assessment] 08/21/21 08/21/21 08/21/21 02:30 02:45 03:00 Temperature Pulse Rate 74 75 74 Pulse Rate [ Anterior Bilateral] Pulse Rate [ From Monitor] Respiratory 13 13 12 Rate Respiratory Rate [Anterior Bilateral] Blood Pressure 102/54 102/54 105/52 O2 Sat by Pulse 93 99 98 Oximetry O2 Sat by Pulse Oximetry [ Assessment] 08/21/21 08/21/21 08/21/21 03:15 03:30 03:45 Temperature Pulse Rate 73 74 73 Pulse Rate [ Anterior Bilateral] Pulse Rate [ From Monitor] Respiratory 12 12 13 Rate Respiratory Rate [Anterior Bilateral] Blood Pressure 107/58 107/59 104/57 O2 Sat by Pulse 93 92 93 Oximetry O2 Sat by Pulse Oximetry [ Assessment] 08/21/21 08/21/21 08/21/21 04:00 04:05 04:11 Temperature 99.2 F Pulse Rate 85 74 Pulse Rate [ Anterior Bilateral] Pulse Rate [ From Monitor] Respiratory 13 Rate Respiratory Rate [Anterior Bilateral] Blood Pressure 107/61 107/61 O2 Sat by Pulse 100 98 Oximetry O2 Sat by Pulse 100 Oximetry [ Assessment] 08/21/21 08/21/21 08/21/21 04:15 04:30 04:45 Temperature Pulse Rate 75 74 73 Pulse Rate [ Anterior Bilateral] Pulse Rate [ From Monitor] Respiratory 12 12 12 Rate Respiratory Rate [Anterior Bilateral] Blood Pressure 115/64 109/55 107/58 O2 Sat by Pulse 95 93 92 Oximetry O2 Sat by Pulse Oximetry [ Assessment] 08/21/21 08/21/21 08/21/21 05:00 05:15 05:31 Temperature Pulse Rate 74 74 84 Pulse Rate [ Anterior Bilateral] Pulse Rate [ From Monitor] Respiratory 12 12 14 Rate Respiratory Rate [Anterior Bilateral] Blood Pressure 108/59 111/60 111/60 O2 Sat by Pulse 93 94 95 Oximetry O2 Sat by Pulse Oximetry [ Assessment] 08/21/21 08/21/21 08/21/21 05:45 06:00 06:15 Temperature Pulse Rate 89 89 89 Pulse Rate [ Anterior Bilateral] Pulse Rate [ From Monitor] Respiratory 14 14 14 Rate Respiratory Rate [Anterior Bilateral] Blood Pressure 130/70 110/58 110/58 O2 Sat by Pulse 97 93 97 Oximetry O2 Sat by Pulse Oximetry [ Assessment] 08/21/21 08/21/21 08/21/21 06:30 06:45 07:00 Temperature Pulse Rate 87 88 87 Pulse Rate [ Anterior Bilateral] Pulse Rate [ From Monitor] Respiratory 14 14 13 Rate Respiratory Rate [Anterior Bilateral] Blood Pressure 106/56 104/58 103/52 O2 Sat by Pulse 91 91 93 Oximetry O2 Sat by Pulse Oximetry [ Assessment] 08/21/21 08/21/21 08/21/21 07:15 07:30 07:45 Temperature Pulse Rate 85 84 84 Pulse Rate [ Anterior Bilateral] Pulse Rate [ From Monitor] Respiratory 13 15 13 Rate Respiratory Rate [Anterior Bilateral] Blood Pressure 102/51 97/55 95/59 O2 Sat by Pulse 92 92 92 Oximetry O2 Sat by Pulse Oximetry [ Assessment] 08/21/21 08/21/21 08/21/21 08:00 08:15 08:30 Temperature 98.0 F Pulse Rate 86 86 87 Pulse Rate [ 78 Anterior Bilateral] Pulse Rate [ 79 From Monitor] Respiratory 18 16 15 Rate Respiratory 15 Rate [Anterior Bilateral] Blood Pressure 106/57 110/60 106/55 O2 Sat by Pulse 96 91 91 Oximetry O2 Sat by Pulse Oximetry [ Assessment] 09/26/21 09/26/21 09/26/21 08:33 08:45 09:00 Temperature Pulse Rate 88 80 76 Pulse Rate [ Anterior Bilateral] Pulse Rate [ From Monitor] Respiratory 15 15 Rate Respiratory Rate [Anterior Bilateral] Blood Pressure 106/55 97/47 98/46 O2 Sat by Pulse 96 93 94 Oximetry O2 Sat by Pulse Oximetry [ Assessment] 08/21/21 08/21/21 08/21/21 09:15 09:30 09:45 Temperature Pulse Rate 82 85 86 Pulse Rate [ Anterior Bilateral] Pulse Rate [ From Monitor] Respiratory 16 17 16 Rate Respiratory Rate [Anterior Bilateral] Blood Pressure 104/57 107/65 104/64 O2 Sat by Pulse 91 92 91 Oximetry O2 Sat by Pulse Oximetry [ Assessment] 08/21/21 08/21/21 08/21/21 10:00 10:15 10:30 Temperature Pulse Rate 88 89 90 Pulse Rate [ Anterior Bilateral] Pulse Rate [ From Monitor] Respiratory 15 16 14 Rate Respiratory Rate [Anterior Bilateral] Blood Pressure 111/63 109/73 115/62 O2 Sat by Pulse 88 89 91 Oximetry O2 Sat by Pulse Oximetry [ Assessment] 08/21/21 08/21/21 08/21/21 10:45 11:00 11:15 Temperature Pulse Rate 90 94 H 94 H Pulse Rate [ Anterior Bilateral] Pulse Rate [ From Monitor] Respiratory 15 15 17 Rate Respiratory Rate [Anterior Bilateral] Blood Pressure 113/65 111/60 118/67 O2 Sat by Pulse 91 91 91 Oximetry O2 Sat by Pulse Oximetry [ Assessment] 08/21/21 11:30 Temperature Pulse Rate 94 H Pulse Rate [ Anterior Bilateral] Pulse Rate [ From Monitor] Respiratory 16 Rate Respiratory Rate [Anterior Bilateral] Blood Pressure 114/61 O2 Sat by Pulse 91 Oximetry O2 Sat by Pulse Oximetry [ Assessment] Constitutional: no acute distress (sedated), other (eldely obese female with mildly increased respiratory effort at rest on MVS) Eyes: non-icteric ENT: oropharynx moist, other (trach [place] #[id number], cuffed; no bleeding) Neck: supple, no lymphadenopathy, no JVD Effort: mildly labored Ascultation: Bilateral: wheezes (central), rhonchi Percussion: Bilateral: not dull Cardiovascular: regular rate and rhythm, other (S1,S2) Gastrointestinal: normoactive bowel sounds, soft, non-tender, non-distended, other (PEG) Integumentary: normal Extremities: no cyanosis, no edema, pulses normal, no ischemia or petechiae Neurologic: non-focal exam (moves all extremities), pupils equal and round, CN II-XII normal Psychiatric: other (sedated) CBC and BMP: 08/22/21 04:00 08/22/21 Unknown ABG, PT/INR, D-dimer: ABG ABG pH 7.401 (7.320-7.450) 08/19/21 13:45 POC ABG pCO2 39.8 mmHg (32.0-48.0) 08/19/21 13:45 ABG pCO2 46.6 mm Hg 08/17/21 21:23 POC ABG pO2 145.3 mmHg (83-108) H 08/19/21 13:45 ABG pO2 122.5 mm Hg (80.0-90.0) H 08/17/21 21:23 POC ABG HCO3 24.2 08/19/21 13:45 ABG O2 Saturation 99.0 (0-100) 08/19/21 13:45 PT/INR, D-dimer PT 14.5 Sec. (12.2-14.9) 08/12/21 21:41 INR 1.08 (0.87-1.13) 08/12/21 21:41 D-Dimer 852.47 ng/mlDDU (0-234) H 07/29/21 07:17 Abnormal lab findings: Abnormal Labs 07/27/21 07/27/21 07/27/21 22:57 22:57 22:57 WBC 20.3 H RBC Hgb Hct MCH MCHC RDW Lymph % (Auto) Lymph # (Auto) [place] # (Auto) Seg Neutrophils % Seg Neuts % (Manual) 89.0 H Lymphocytes % (Manual) 9.0 L Nucleated RBC % Seg Neutrophils # Seg Neutrophils # Man 18.1 H Lymphocytes # (Manual) Monocytes # (Manual) D-Dimer ABG pH POC ABG pCO2 POC ABG pO2 ABG pO2 ABG Hemoglobin ABG Oxyhemoglobin ABG Sodium ABG Potassium ABG Chloride ABG Glucose Carboxyhemoglobin Sodium Potassium 3.5 L Chloride 96.9 L Carbon Dioxide 20 L BUN 19 H Creatinine Glucose 204 H POC Glucose Lactic Acid 7.20 H* Calcium Magnesium AST 98 H ALT 90 H Total Protein Albumin Triglycerides Arterial Blood Glucose Arterial Blood Ionized Calcium Urine WBC (Auto) Urine Creatinine Crossmatch 07/28/21 07/28/21 07/28/21 01:31 07:49 10:00 WBC RBC Hgb Hct MCH MCHC RDW Lymph % (Auto) Lymph # (Auto) [place] # (Auto) Seg Neutrophils % Seg Neuts % (Manual) Lymphocytes % (Manual) Nucleated RBC % Seg Neutrophils # Seg Neutrophils # Man Lymphocytes # (Manual) Monocytes # (Manual) D-Dimer ABG pH POC ABG pCO2 POC ABG pO2 ABG pO2 ABG Hemoglobin ABG Oxyhemoglobin ABG Sodium ABG Potassium ABG Chloride ABG Glucose Carboxyhemoglobin Sodium Potassium Chloride Carbon Dioxide BUN Creatinine Glucose POC Glucose 194 H Lactic Acid 6.90 H* 6.70 H* Calcium Magnesium AST ALT Total Protein Albumin Triglycerides Arterial Blood Glucose Arterial Blood Ionized Calcium Urine WBC (Auto) Urine Creatinine Crossmatch 07/28/21 07/28/21 07/28/21 12:41 13:21 16:21 WBC RBC Hgb Hct MCH MCHC RDW Lymph % (Auto) Lymph # (Auto) [place] # (Auto) Seg Neutrophils % Seg Neuts % (Manual) Lymphocytes % (Manual) Nucleated RBC % Seg Neutrophils # Seg Neutrophils # Man Lymphocytes # (Manual) Monocytes # (Manual) D-Dimer ABG pH POC ABG pCO2 POC ABG pO2 ABG pO2 ABG Hemoglobin ABG Oxyhemoglobin ABG Sodium ABG Potassium ABG Chloride ABG Glucose Carboxyhemoglobin Sodium Potassium Chloride Carbon Dioxide BUN Creatinine Glucose POC Glucose 159 H 155 H Lactic Acid 6.10 H* Calcium Magnesium AST ALT Total Protein Albumin Triglycerides Arterial Blood Glucose Arterial Blood Ionized Calcium Urine WBC (Auto) Urine Creatinine Crossmatch 07/28/21 07/29/21 07/29/21 22:03 04:44 04:44 WBC 17.0 H RBC Hgb Hct MCH MCHC RDW Lymph % (Auto) Lymph # (Auto) [place] # (Auto) Seg Neutrophils % Seg Neuts % (Manual) 82.0 H Lymphocytes % (Manual) 11.0 L Nucleated RBC % Seg Neutrophils # Seg Neutrophils # Man 13.9 H Lymphocytes # (Manual) Monocytes # (Manual) 1.0 H D-Dimer ABG pH POC ABG pCO2 POC ABG pO2 ABG pO2 ABG Hemoglobin ABG Oxyhemoglobin ABG Sodium ABG Potassium ABG Chloride ABG Glucose Carboxyhemoglobin Sodium Potassium Chloride Carbon Dioxide BUN 23 H Creatinine Glucose 196 H POC Glucose 187 H Lactic Acid Calcium Magnesium AST ALT Total Protein Albumin Triglycerides Arterial Blood Glucose Arterial Blood Ionized Calcium Urine WBC (Auto) Urine Creatinine Crossmatch 07/29/21 07/29/21 07/29/21 06:56 07:17 07:17 WBC 26.1 H RBC Hgb Hct 43.3 H MCH MCHC RDW 16.0 H Lymph % (Auto) Lymph # (Auto) [place] # (Auto) Seg Neutrophils % Seg Neuts % (Manual) 80.0 H Lymphocytes % (Manual) Nucleated RBC % Seg Neutrophils # Seg Neutrophils # Man 20.9 H Lymphocytes # (Manual) Monocytes # (Manual) D-Dimer ABG pH POC ABG pCO2 POC ABG pO2 ABG pO2 ABG Hemoglobin ABG Oxyhemoglobin ABG Sodium ABG Potassium ABG Chloride ABG Glucose Carboxyhemoglobin Sodium Potassium Chloride Carbon Dioxide 20 L D BUN 23 H Creatinine Glucose 308 H POC Glucose 165 H Lactic Acid Calcium Magnesium AST ALT Total Protein Albumin Triglycerides Arterial Blood Glucose Arterial Blood Ionized Calcium Urine WBC (Auto) Urine Creatinine Crossmatch 07/29/21 07/29/21 07/29/21 07:17 09:16 10:30 WBC RBC Hgb Hct MCH MCHC RDW Lymph % (Auto) Lymph # (Auto) [place] # (Auto) Seg Neutrophils % Seg Neuts % (Manual) Lymphocytes % (Manual) Nucleated RBC % Seg Neutrophils # Seg Neutrophils # Man Lymphocytes # (Manual) Monocytes # (Manual) D-Dimer 852.47 H ABG pH 7.236 L POC ABG pCO2 56.0 H POC ABG pO2 266.4 H ABG pO2 ABG Hemoglobin ABG Oxyhemoglobin 99.1 H ABG Sodium 132.3 L ABG Potassium 4.9 H ABG Chloride ABG Glucose 202 H Carboxyhemoglobin 0.2 L Sodium Potassium Chloride Carbon Dioxide BUN Creatinine Glucose POC Glucose 271 H Lactic Acid Calcium Magnesium AST ALT Total Protein Albumin Triglycerides Arterial Blood Glucose 202 H Arterial Blood Ionized Calcium Urine WBC (Auto) Urine Creatinine Crossmatch 07/29/21 07/29/21 07/30/21 17:54 23:32 05:08 WBC RBC Hgb Hct MCH MCHC RDW Lymph % (Auto) Lymph # (Auto) [place] # (Auto) Seg Neutrophils % Seg Neuts % (Manual) Lymphocytes % (Manual) Nucleated RBC % Seg Neutrophils # Seg Neutrophils # Man Lymphocytes # (Manual) Monocytes # (Manual) D-Dimer ABG pH POC ABG pCO2 POC ABG pO2 ABG pO2 ABG Hemoglobin ABG Oxyhemoglobin ABG Sodium ABG Potassium ABG Chloride ABG Glucose Carboxyhemoglobin Sodium Potassium Chloride Carbon Dioxide BUN Creatinine Glucose POC Glucose 168 H 205 H 214 H Lactic Acid Calcium Magnesium AST ALT Total Protein Albumin Triglycerides Arterial Blood Glucose Arterial Blood Ionized Calcium Urine WBC (Auto) Urine Creatinine Crossmatch 07/30/21 07/30/21 07/30/21 06:01 11:32 17:34 WBC RBC Hgb Hct MCH MCHC RDW Lymph % (Auto) Lymph # (Auto) [place] # (Auto) Seg Neutrophils % Seg Neuts % (Manual) Lymphocytes % (Manual) Nucleated RBC % Seg Neutrophils # Seg Neutrophils # Man Lymphocytes # (Manual) Monocytes # (Manual) D-Dimer ABG pH 7.480 H POC ABG pCO2 23.6 L POC ABG pO2 280.0 H ABG pO2 ABG Hemoglobin ABG Oxyhemoglobin 99.3 H ABG Sodium 133.7 L ABG Potassium ABG Chloride ABG Glucose 232 H Carboxyhemoglobin 0 L Sodium Potassium Chloride Carbon Dioxide BUN Creatinine Glucose POC Glucose 207 H 239 H Lactic Acid Calcium Magnesium AST ALT Total Protein Albumin Triglycerides Arterial Blood Glucose 232 H Arterial Blood Ionized Calcium 4.4 L Urine WBC (Auto) Urine Creatinine Crossmatch 07/30/21 07/31/21 07/31/21 23:39 03:34 04:45 WBC 15.0 H RBC Hgb Hct MCH MCHC RDW 15.5 H Lymph % (Auto) Lymph # (Auto) [place] # (Auto) Seg Neutrophils % Seg Neuts % (Manual) 89.0 H Lymphocytes % (Manual) 7.0 L Nucleated RBC % Seg Neutrophils # Seg Neutrophils # Man 13.4 H Lymphocytes # (Manual) 1.1 L Monocytes # (Manual) D-Dimer ABG pH 7.481 H POC ABG pCO2 31.8 L POC ABG pO2 ABG pO2 ABG Hemoglobin ABG Oxyhemoglobin ABG Sodium 135.2 L ABG Potassium 3.3 L ABG Chloride ABG Glucose 188 H Carboxyhemoglobin 0.1 L Sodium Potassium Chloride Carbon Dioxide BUN Creatinine Glucose POC Glucose 176 H Lactic Acid Calcium Magnesium AST ALT Total Protein Albumin Triglycerides Arterial Blood Glucose 188 H Arterial Blood Ionized Calcium 4.4 L Urine WBC (Auto) Urine Creatinine Crossmatch 07/31/21 07/31/21 07/31/21 04:45 04:45 11:28 WBC RBC Hgb Hct MCH MCHC RDW Lymph % (Auto) Lymph # (Auto) [place] # (Auto) Seg Neutrophils % Seg Neuts % (Manual) Lymphocytes % (Manual) Nucleated RBC % Seg Neutrophils # Seg Neutrophils # Man Lymphocytes # (Manual) Monocytes # (Manual) D-Dimer ABG pH POC ABG pCO2 POC ABG pO2 ABG pO2 ABG Hemoglobin ABG Oxyhemoglobin ABG Sodium ABG Potassium ABG Chloride ABG Glucose Carboxyhemoglobin Sodium Potassium 3.4 L Chloride Carbon Dioxide BUN 61 H Creatinine 2.6 H D Glucose 176 H POC Glucose 195 H 245 H Lactic Acid Calcium Magnesium AST ALT Total Protein Albumin Triglycerides Arterial Blood Glucose Arterial Blood Ionized Calcium Urine WBC (Auto) Urine Creatinine Crossmatch 07/31/21 07/31/21 08/01/21 17:32 23:58 01:00 WBC RBC Hgb Hct MCH MCHC RDW Lymph % (Auto) Lymph # (Auto) [place] # (Auto) Seg Neutrophils % Seg Neuts % (Manual) Lymphocytes % (Manual) Nucleated RBC % Seg Neutrophils # Seg Neutrophils # Man Lymphocytes # (Manual) Monocytes # (Manual) D-Dimer ABG pH POC ABG pCO2 POC ABG pO2 ABG pO2 ABG Hemoglobin ABG Oxyhemoglobin ABG Sodium ABG Potassium ABG Chloride ABG Glucose 284 H Carboxyhemoglobin 0.3 L Sodium Potassium Chloride Carbon Dioxide BUN Creatinine Glucose POC Glucose 251 H 294 H Lactic Acid Calcium Magnesium AST ALT Total Protein Albumin Triglycerides Arterial Blood Glucose 284 H Arterial Blood Ionized Calcium Urine WBC (Auto) Urine Creatinine Crossmatch 08/01/21 08/01/21 08/01/21 05:50 05:50 06:11 WBC 16.2 H RBC Hgb Hct MCH MCHC RDW 15.5 H Lymph % (Auto) Lymph # (Auto) [place] # (Auto) Seg Neutrophils % Seg Neuts % (Manual) 93.0 H Lymphocytes % (Manual) 2.0 L Nucleated RBC % 3.0 H Seg Neutrophils # Seg Neutrophils # Man 15.1 H Lymphocytes # (Manual) 0.3 L Monocytes # (Manual) D-Dimer ABG pH POC ABG pCO2 POC ABG pO2 ABG pO2 ABG Hemoglobin ABG Oxyhemoglobin ABG Sodium ABG Potassium ABG Chloride ABG Glucose Carboxyhemoglobin Sodium Potassium Chloride Carbon Dioxide BUN 64 H Creatinine 1.9 H Glucose 277 H POC Glucose 256 H Lactic Acid Calcium Magnesium AST ALT Total Protein Albumin Triglycerides Arterial Blood Glucose Arterial Blood Ionized Calcium Urine WBC (Auto) Urine Creatinine Crossmatch 08/01/21 08/01/21 08/01/21 11:39 17:25 23:53 WBC RBC Hgb Hct MCH MCHC RDW Lymph % (Auto) Lymph # (Auto) [place] # (Auto) Seg Neutrophils % Seg Neuts % (Manual) Lymphocytes % (Manual) Nucleated RBC % Seg Neutrophils # Seg Neutrophils # Man Lymphocytes # (Manual) Monocytes # (Manual) D-Dimer ABG pH POC ABG pCO2 POC ABG pO2 ABG pO2 ABG Hemoglobin ABG Oxyhemoglobin ABG Sodium ABG Potassium ABG Chloride ABG Glucose Carboxyhemoglobin Sodium Potassium Chloride Carbon Dioxide BUN Creatinine Glucose POC Glucose 289 H 275 H 327 H Lactic Acid Calcium Magnesium AST ALT Total Protein Albumin Triglycerides Arterial Blood Glucose Arterial Blood Ionized Calcium Urine WBC (Auto) Urine Creatinine Crossmatch 08/01/21 08/02/21 08/02/21 Unknown 04:00 12:03 WBC RBC Hgb Hct MCH MCHC RDW Lymph % (Auto) Lymph # (Auto) [place] # (Auto) Seg Neutrophils % Seg Neuts % (Manual) Lymphocytes % (Manual) Nucleated RBC % Seg Neutrophils # Seg Neutrophils # Man Lymphocytes # (Manual) Monocytes # (Manual) D-Dimer ABG pH POC ABG pCO2 POC ABG pO2 ABG pO2 ABG Hemoglobin ABG Oxyhemoglobin ABG Sodium ABG Potassium ABG Chloride ABG Glucose 325 H Carboxyhemoglobin 0.4 L Sodium Potassium Chloride Carbon Dioxide BUN Creatinine Glucose POC Glucose 209 H Lactic Acid Calcium Magnesium AST ALT Total Protein Albumin Triglycerides Arterial Blood Glucose 325 H Arterial Blood Ionized Calcium Urine WBC (Auto) Urine Creatinine 125.6 H Crossmatch 08/02/21 08/02/21 08/02/21 15:30 17:03 23:17 WBC RBC Hgb Hct MCH MCHC RDW Lymph % (Auto) Lymph # (Auto) [place] # (Auto) Seg Neutrophils % Seg Neuts % (Manual) Lymphocytes % (Manual) Nucleated RBC % Seg Neutrophils # Seg Neutrophils # Man Lymphocytes # (Manual) Monocytes # (Manual) D-Dimer ABG pH POC ABG pCO2 POC ABG pO2 ABG pO2 ABG Hemoglobin ABG Oxyhemoglobin ABG Sodium ABG Potassium ABG Chloride ABG Glucose Carboxyhemoglobin Sodium Potassium Chloride Carbon Dioxide BUN Creatinine Glucose POC Glucose 210 H 265 H Lactic Acid Calcium Magnesium AST ALT Total Protein Albumin Triglycerides Arterial Blood Glucose Arterial Blood Ionized Calcium Urine WBC (Auto) 47.0 H Urine Creatinine Crossmatch 08/02/21 08/02/21 08/03/21 Unknown Unknown 04:17 WBC 14.1 H RBC Hgb Hct MCH MCHC RDW 16.3 H Lymph % (Auto) 5.1 L Lymph # (Auto) 0.7 L [place] # (Auto) 0.9 H Seg Neutrophils % 88.7 H Seg Neuts % (Manual) Lymphocytes % (Manual) Nucleated RBC % Seg Neutrophils # 12.5 H Seg Neutrophils # Man Lymphocytes # (Manual) Monocytes # (Manual) D-Dimer ABG pH POC ABG pCO2 POC ABG pO2 ABG pO2 ABG Hemoglobin ABG Oxyhemoglobin ABG Sodium ABG Potassium ABG Chloride ABG Glucose Carboxyhemoglobin Sodium Potassium Chloride Carbon Dioxide BUN 72 H 72 H Creatinine 1.8 H 1.6 H Glucose 307 H 263 H POC Glucose Lactic Acid Calcium Magnesium AST ALT Total Protein Albumin Triglycerides Arterial Blood Glucose Arterial Blood Ionized Calcium Urine WBC (Auto) Urine Creatinine Crossmatch 08/03/21 08/03/21 08/03/21 04:17 05:30 08:30 WBC 13.9 H RBC Hgb Hct MCH MCHC RDW 16.0 H Lymph % (Auto) Lymph # (Auto) [place] # (Auto) Seg Neutrophils % Seg Neuts % (Manual) Lymphocytes % (Manual) Nucleated RBC % Seg Neutrophils # Seg Neutrophils # Man Lymphocytes # (Manual) Monocytes # (Manual) D-Dimer ABG pH POC ABG pCO2 POC ABG pO2 ABG pO2 ABG Hemoglobin ABG Oxyhemoglobin ABG Sodium ABG Potassium ABG Chloride ABG Glucose Carboxyhemoglobin Sodium Potassium Chloride Carbon Dioxide BUN Creatinine Glucose POC Glucose 280 H Lactic Acid Calcium Magnesium 3.00 H AST ALT Total Protein Albumin Triglycerides Arterial Blood Glucose Arterial Blood Ionized Calcium Urine WBC (Auto) Urine Creatinine Crossmatch 08/03/21 08/03/21 08/03/21 12:14 13:39 15:11 WBC RBC Hgb Hct MCH MCHC RDW Lymph % (Auto) Lymph # (Auto) [place] # (Auto) Seg Neutrophils % Seg Neuts % (Manual) Lymphocytes % (Manual) Nucleated RBC % Seg Neutrophils # Seg Neutrophils # Man Lymphocytes # (Manual) Monocytes # (Manual) D-Dimer ABG pH POC ABG pCO2 POC ABG pO2 ABG pO2 ABG Hemoglobin ABG Oxyhemoglobin ABG Sodium ABG Potassium ABG Chloride ABG Glucose 306 H Carboxyhemoglobin 0.3 L Sodium Potassium Chloride Carbon Dioxide BUN Creatinine Glucose POC Glucose 287 H Lactic Acid 2.10 H* Calcium Magnesium AST ALT Total Protein Albumin Triglycerides Arterial Blood Glucose 306 H Arterial Blood Ionized Calcium Urine WBC (Auto) Urine Creatinine Crossmatch 08/03/21 08/03/21 08/04/21 16:52 23:08 04:00 WBC RBC Hgb Hct MCH MCHC RDW Lymph % (Auto) Lymph # (Auto) [place] # (Auto) Seg Neutrophils % Seg Neuts % (Manual) Lymphocytes % (Manual) Nucleated RBC % Seg Neutrophils # Seg Neutrophils # Man Lymphocytes # (Manual) Monocytes # (Manual) D-Dimer ABG pH POC ABG pCO2 54.3 H POC ABG pO2 82.2 L ABG pO2 ABG Hemoglobin ABG Oxyhemoglobin ABG Sodium 145.1 H ABG Potassium 5.0 H ABG Chloride ABG Glucose 316 H Carboxyhemoglobin 0.3 L Sodium Potassium Chloride Carbon Dioxide BUN Creatinine Glucose POC Glucose 282 H 289 H Lactic Acid Calcium Magnesium AST ALT Total Protein Albumin Triglycerides Arterial Blood Glucose 316 H Arterial Blood Ionized Calcium Urine WBC (Auto) Urine Creatinine Crossmatch 08/04/21 08/04/21 08/04/21 04:38 04:38 05:19 WBC 17.7 H RBC Hgb Hct MCH MCHC RDW 16.5 H Lymph % (Auto) Lymph # (Auto) [place] # (Auto) Seg Neutrophils % Seg Neuts % (Manual) Lymphocytes % (Manual) Nucleated RBC % Seg Neutrophils # Seg Neutrophils # Man Lymphocytes # (Manual) Monocytes # (Manual) D-Dimer ABG pH POC ABG pCO2 POC ABG pO2 ABG pO2 ABG Hemoglobin ABG Oxyhemoglobin ABG Sodium ABG Potassium ABG Chloride ABG Glucose Carboxyhemoglobin Sodium Potassium Chloride 108.3 H Carbon Dioxide BUN 76 H Creatinine 1.4 H Glucose 310 H POC Glucose 268 H Lactic Acid Calcium Magnesium 2.70 H AST ALT Total Protein Albumin Triglycerides Arterial Blood Glucose Arterial Blood Ionized Calcium Urine WBC (Auto) Urine Creatinine Crossmatch 0908/04/21 08/04/21 11:48 16:41 23:49 WBC RBC Hgb Hct MCH MCHC RDW Lymph % (Auto) Lymph # (Auto) [place] # (Auto) Seg Neutrophils % Seg Neuts % (Manual) Lymphocytes % (Manual) Nucleated RBC % Seg Neutrophils # Seg Neutrophils # Man Lymphocytes # (Manual) Monocytes # (Manual) D-Dimer ABG pH POC ABG pCO2 POC ABG pO2 ABG pO2 ABG Hemoglobin ABG Oxyhemoglobin ABG Sodium ABG Potassium ABG Chloride ABG Glucose Carboxyhemoglobin Sodium Potassium Chloride Carbon Dioxide BUN Creatinine Glucose POC Glucose 197 H 208 H 209 H Lactic Acid Calcium Magnesium AST ALT Total Protein Albumin Triglycerides Arterial Blood Glucose Arterial Blood Ionized Calcium Urine WBC (Auto) Urine Creatinine Crossmatch 08/05/21 08/05/21 08/05/21 04:00 04:50 04:50 WBC 19.0 H RBC Hgb Hct MCH MCHC RDW 17.0 H Lymph % (Auto) Lymph # (Auto) [place] # (Auto) Seg Neutrophils % Seg Neuts % (Manual) 75.0 H Lymphocytes % (Manual) 2.0 L Nucleated RBC % Seg Neutrophils # Seg Neutrophils # Man 14.3 H Lymphocytes # (Manual) 0.4 L Monocytes # (Manual) 1.0 H D-Dimer ABG pH 7.314 L POC ABG pCO2 48.9 H POC ABG pO2 ABG pO2 ABG Hemoglobin ABG Oxyhemoglobin ABG Sodium ABG Potassium 5.0 H ABG Chloride 109.0 H ABG Glucose 234 H Carboxyhemoglobin 0.4 L Sodium Potassium 5.2 H Chloride 110.0 H Carbon Dioxide BUN 90 H Creatinine 1.8 H Glucose 235 H POC Glucose Lactic Acid Calcium Magnesium 2.60 H AST ALT Total Protein Albumin Triglycerides Arterial Blood Glucose 234 H Arterial Blood Ionized Calcium Urine WBC (Auto) Urine Creatinine Crossmatch 08/05/21 08/05/21 08/05/21 06:05 12:02 17:08 WBC RBC Hgb Hct MCH MCHC RDW Lymph % (Auto) Lymph # (Auto) [place] # (Auto) Seg Neutrophils % Seg Neuts % (Manual) Lymphocytes % (Manual) Nucleated RBC % Seg Neutrophils # Seg Neutrophils # Man Lymphocytes # (Manual) Monocytes # (Manual) D-Dimer ABG pH POC ABG pCO2 POC ABG pO2 ABG pO2 ABG Hemoglobin ABG Oxyhemoglobin ABG Sodium ABG Potassium ABG Chloride ABG Glucose Carboxyhemoglobin Sodium Potassium Chloride Carbon Dioxide BUN Creatinine Glucose POC Glucose 225 H 193 H 263 H Lactic Acid Calcium Magnesium AST ALT Total Protein Albumin Triglycerides Arterial Blood Glucose Arterial Blood Ionized Calcium Urine WBC (Auto) Urine Creatinine Crossmatch 08/05/21 08/06/21 08/06/21 23:34 05:00 05:00 WBC 16.8 H RBC 3.64 L Hgb Hct MCH MCHC RDW 16.6 H Lymph % (Auto) Lymph # (Auto) [place] # (Auto) Seg Neutrophils % Seg Neuts % (Manual) Lymphocytes % (Manual) Nucleated RBC % Seg Neutrophils # Seg Neutrophils # Man Lymphocytes # (Manual) Monocytes # (Manual) D-Dimer ABG pH POC ABG pCO2 POC ABG pO2 ABG pO2 ABG Hemoglobin ABG Oxyhemoglobin ABG Sodium ABG Potassium ABG Chloride ABG Glucose Carboxyhemoglobin Sodium Potassium Chloride 109.3 H Carbon Dioxide BUN 89 H Creatinine 1.6 H Glucose 197 H POC Glucose 224 H Lactic Acid Calcium 8.2 L Magnesium AST ALT Total Protein Albumin Triglycerides Arterial Blood Glucose Arterial Blood Ionized Calcium Urine WBC (Auto) Urine Creatinine Crossmatch 08/06/21 08/06/21 08/06/21 05:26 11:38 16:30 WBC RBC Hgb Hct MCH MCHC RDW Lymph % (Auto) Lymph # (Auto) [place] # (Auto) Seg Neutrophils % Seg Neuts % (Manual) Lymphocytes % (Manual) Nucleated RBC % Seg Neutrophils # Seg Neutrophils # Man Lymphocytes # (Manual) Monocytes # (Manual) D-Dimer ABG pH POC ABG pCO2 POC ABG pO2 ABG pO2 ABG Hemoglobin ABG Oxyhemoglobin ABG Sodium ABG Potassium ABG Chloride ABG Glucose Carboxyhemoglobin Sodium Potassium Chloride Carbon Dioxide BUN Creatinine Glucose POC Glucose 168 H 160 H 135 H Lactic Acid Calcium Magnesium AST ALT Total Protein Albumin Triglycerides Arterial Blood Glucose Arterial Blood Ionized Calcium Urine WBC (Auto) Urine Creatinine Crossmatch 08/06/21 08/07/21 08/07/21 23:08 04:00 04:00 WBC 13.6 H RBC 3.30 L Hgb 9.5 L Hct 29.2 L MCH MCHC RDW 16.7 H Lymph % (Auto) Lymph # (Auto) [place] # (Auto) Seg Neutrophils % Seg Neuts % (Manual) Lymphocytes % (Manual) Nucleated RBC % Seg Neutrophils # Seg Neutrophils # Man Lymphocytes # (Manual) Monocytes # (Manual) D-Dimer ABG pH POC ABG pCO2 POC ABG pO2 ABG pO2 ABG Hemoglobin ABG Oxyhemoglobin ABG Sodium ABG Potassium ABG Chloride ABG Glucose Carboxyhemoglobin Sodium 146 H Potassium Chloride 111.4 H Carbon Dioxide BUN 78 H Creatinine 1.5 H Glucose 143 H POC Glucose 125 H Lactic Acid Calcium 8.2 L Magnesium AST ALT Total Protein Albumin Triglycerides Arterial Blood Glucose Arterial Blood Ionized Calcium Urine WBC (Auto) Urine Creatinine Crossmatch 08/07/21 08/07/21 08/07/21 04:00 05:16 12:12 WBC RBC Hgb Hct MCH MCHC RDW Lymph % (Auto) Lymph # (Auto) [place] # (Auto) Seg Neutrophils % Seg Neuts % (Manual) Lymphocytes % (Manual) Nucleated RBC % Seg Neutrophils # Seg Neutrophils # Man Lymphocytes # (Manual) Monocytes # (Manual) D-Dimer ABG pH POC ABG pCO2 POC ABG pO2 80.1 L ABG pO2 ABG Hemoglobin 9.8 L ABG Oxyhemoglobin ABG Sodium ABG Potassium ABG Chloride 111.0 H ABG Glucose 157 H Carboxyhemoglobin 0.3 L Sodium Potassium Chloride Carbon Dioxide BUN Creatinine Glucose POC Glucose 144 H 125 H Lactic Acid Calcium Magnesium AST ALT Total Protein Albumin Triglycerides Arterial Blood Glucose 157 H Arterial Blood Ionized Calcium 4.5 L Urine WBC (Auto) Urine Creatinine Crossmatch 08/07/21 08/08/21 08/08/21 23:20 04:47 06:00 WBC 13.8 H RBC 3.19 L Hgb 9.3 L Hct 28.4 L MCH MCHC RDW 16.4 H Lymph % (Auto) Lymph # (Auto) [place] # (Auto) Seg Neutrophils % Seg Neuts % (Manual) Lymphocytes % (Manual) Nucleated RBC % Seg Neutrophils # Seg Neutrophils # Man Lymphocytes # (Manual) Monocytes # (Manual) D-Dimer ABG pH POC ABG pCO2 POC ABG pO2 ABG pO2 ABG Hemoglobin ABG Oxyhemoglobin ABG Sodium ABG Potassium ABG Chloride ABG Glucose Carboxyhemoglobin Sodium Potassium Chloride Carbon Dioxide BUN Creatinine Glucose POC Glucose 118 H 130 H Lactic Acid Calcium Magnesium AST ALT Total Protein Albumin Triglycerides Arterial Blood Glucose Arterial Blood Ionized Calcium Urine WBC (Auto) Urine Creatinine Crossmatch 0908/08/21 08/08/21 06:00 11:33 17:54 WBC RBC Hgb Hct MCH MCHC RDW Lymph % (Auto) Lymph # (Auto) [place] # (Auto) Seg Neutrophils % Seg Neuts % (Manual) Lymphocytes % (Manual) Nucleated RBC % Seg Neutrophils # Seg Neutrophils # Man Lymphocytes # (Manual) Monocytes # (Manual) D-Dimer ABG pH POC ABG pCO2 POC ABG pO2 ABG pO2 ABG Hemoglobin ABG Oxyhemoglobin ABG Sodium ABG Potassium ABG Chloride ABG Glucose Carboxyhemoglobin Sodium 147 H Potassium Chloride 112.4 H Carbon Dioxide BUN 71 H Creatinine 1.4 H Glucose 124 H POC Glucose 126 H 124 H Lactic Acid Calcium Magnesium AST ALT Total Protein Albumin Triglycerides Arterial Blood Glucose Arterial Blood Ionized Calcium Urine WBC (Auto) Urine Creatinine Crossmatch 08/08/21 08/09/21 08/09/21 23:41 06:06 10:00 WBC RBC Hgb Hct MCH MCHC RDW Lymph % (Auto) Lymph # (Auto) [place] # (Auto) Seg Neutrophils % Seg Neuts % (Manual) Lymphocytes % (Manual) Nucleated RBC % Seg Neutrophils # Seg Neutrophils # Man Lymphocytes # (Manual) Monocytes # (Manual) D-Dimer ABG pH POC ABG pCO2 POC ABG pO2 ABG pO2 ABG Hemoglobin ABG Oxyhemoglobin ABG Sodium ABG Potassium ABG Chloride ABG Glucose Carboxyhemoglobin Sodium 146 H Potassium Chloride 111.3 H Carbon Dioxide BUN 72 H Creatinine 1.5 H Glucose 119 H POC Glucose 119 H 127 H Lactic Acid Calcium Magnesium AST ALT 69 H Total Protein 5.2 L Albumin 2.6 L Triglycerides Arterial Blood Glucose Arterial Blood Ionized Calcium Urine WBC (Auto) Urine Creatinine Crossmatch 08/09/21 08/09/21 08/09/21 10:00 11:34 16:50 WBC 13.0 H RBC 2.88 L Hgb 8.5 L Hct 25.8 L MCH MCHC RDW 16.5 H Lymph % (Auto) Lymph # (Auto) [place] # (Auto) Seg Neutrophils % Seg Neuts % (Manual) Lymphocytes % (Manual) Nucleated RBC % Seg Neutrophils # Seg Neutrophils # Man Lymphocytes # (Manual) Monocytes # (Manual) D-Dimer ABG pH POC ABG pCO2 POC ABG pO2 ABG pO2 ABG Hemoglobin ABG Oxyhemoglobin ABG Sodium ABG Potassium ABG Chloride ABG Glucose Carboxyhemoglobin Sodium Potassium Chloride Carbon Dioxide BUN Creatinine Glucose POC Glucose 114 H 117 H Lactic Acid Calcium Magnesium AST ALT Total Protein Albumin Triglycerides Arterial Blood Glucose Arterial Blood Ionized Calcium Urine WBC (Auto) Urine Creatinine Crossmatch 08/10/21 08/10/21 08/10/21 00:12 05:20 05:20 WBC 13.2 H RBC 2.92 L Hgb 8.4 L Hct 25.9 L MCH MCHC RDW 16.7 H Lymph % (Auto) Lymph # (Auto) [place] # (Auto) Seg Neutrophils % Seg Neuts % (Manual) Lymphocytes % (Manual) Nucleated RBC % Seg Neutrophils # Seg Neutrophils # Man Lymphocytes # (Manual) Monocytes # (Manual) D-Dimer ABG pH POC ABG pCO2 POC ABG pO2 ABG pO2 ABG Hemoglobin ABG Oxyhemoglobin ABG Sodium ABG Potassium ABG Chloride ABG Glucose Carboxyhemoglobin Sodium 147 H Potassium Chloride 111.8 H Carbon Dioxide BUN 68 H Creatinine 1.4 H Glucose POC Glucose 114 H Lactic Acid Calcium Magnesium AST ALT Total Protein Albumin Triglycerides Arterial Blood Glucose Arterial Blood Ionized Calcium Urine WBC (Auto) Urine Creatinine Crossmatch 08/10/21 08/10/21 08/11/21 17:52 18:23 02:51 WBC RBC Hgb Hct MCH MCHC RDW Lymph % (Auto) Lymph # (Auto) [place] # (Auto) Seg Neutrophils % Seg Neuts % (Manual) Lymphocytes % (Manual) Nucleated RBC % Seg Neutrophils # Seg Neutrophils # Man Lymphocytes # (Manual) Monocytes # (Manual) D-Dimer ABG pH POC ABG pCO2 POC ABG pO2 ABG pO2 ABG Hemoglobin 8.7 L ABG Oxyhemoglobin ABG Sodium ABG Potassium ABG Chloride 111.0 H ABG Glucose Carboxyhemoglobin 0.2 L Sodium Potassium Chloride Carbon Dioxide BUN Creatinine Glucose POC Glucose 55 L 133 H Lactic Acid Calcium Magnesium AST ALT Total Protein Albumin Triglycerides Arterial Blood Glucose Arterial Blood Ionized Calcium 4.5 L Urine WBC (Auto) Urine Creatinine Crossmatch 08/11/21 08/11/21 08/11/21 04:30 11:36 17:11 WBC RBC Hgb Hct MCH MCHC RDW Lymph % (Auto) Lymph # (Auto) [place] # (Auto) Seg Neutrophils % Seg Neuts % (Manual) Lymphocytes % (Manual) Nucleated RBC % Seg Neutrophils # Seg Neutrophils # Man Lymphocytes # (Manual) Monocytes # (Manual) D-Dimer ABG pH POC ABG pCO2 POC ABG pO2 ABG pO2 ABG Hemoglobin ABG Oxyhemoglobin ABG Sodium ABG Potassium ABG Chloride ABG Glucose Carboxyhemoglobin Sodium Potassium Chloride 110.0 H Carbon Dioxide BUN 59 H Creatinine Glucose POC Glucose 116 H 115 H Lactic Acid Calcium 8.3 L Magnesium AST ALT 64 H Total Protein 5.5 L Albumin 2.6 L Triglycerides Arterial Blood Glucose Arterial Blood Ionized Calcium Urine WBC (Auto) Urine Creatinine Crossmatch 08/11/21 08/11/21 08/12/21 23:18 Unknown 05:05 WBC 12.2 H RBC 2.81 L Hgb 8.4 L Hct 25.4 L MCH MCHC RDW 17.0 H Lymph % (Auto) Lymph # (Auto) [place] # (Auto) Seg Neutrophils % Seg Neuts % (Manual) Lymphocytes % (Manual) Nucleated RBC % Seg Neutrophils # Seg Neutrophils # Man Lymphocytes # (Manual) Monocytes # (Manual) D-Dimer ABG pH POC ABG pCO2 POC ABG pO2 ABG pO2 ABG Hemoglobin ABG Oxyhemoglobin ABG Sodium ABG Potassium ABG Chloride ABG Glucose Carboxyhemoglobin Sodium Potassium Chloride Carbon Dioxide BUN Creatinine Glucose POC Glucose 126 H 131 H Lactic Acid Calcium Magnesium AST ALT Total Protein Albumin Triglycerides Arterial Blood Glucose Arterial Blood Ionized Calcium Urine WBC (Auto) Urine Creatinine Crossmatch 08/12/21 08/12/21 08/12/21 12:14 17:19 21:41 WBC 16.5 H RBC 3.04 L Hgb 8.9 L Hct 27.3 L MCH MCHC RDW 17.0 H Lymph % (Auto) 9.0 L Lymph # (Auto) [place] # (Auto) 1.1 H Seg Neutrophils % 83.7 H Seg Neuts % (Manual) Lymphocytes % (Manual) Nucleated RBC % Seg Neutrophils # 13.8 H Seg Neutrophils # Man Lymphocytes # (Manual) Monocytes # (Manual) D-Dimer ABG pH POC ABG pCO2 POC ABG pO2 ABG pO2 ABG Hemoglobin ABG Oxyhemoglobin ABG Sodium ABG Potassium ABG Chloride ABG Glucose Carboxyhemoglobin Sodium Potassium Chloride Carbon Dioxide BUN Creatinine Glucose POC Glucose 123 H 129 H Lactic Acid Calcium Magnesium AST ALT Total Protein Albumin Triglycerides Arterial Blood Glucose Arterial Blood Ionized Calcium Urine WBC (Auto) Urine Creatinine Crossmatch 08/12/21 08/12/2108/13/21 21:41 23:26 05:24 WBC RBC Hgb Hct MCH MCHC RDW Lymph % (Auto) Lymph # (Auto) [place] # (Auto) Seg Neutrophils % Seg Neuts % (Manual) Lymphocytes % (Manual) Nucleated RBC % Seg Neutrophils # Seg Neutrophils # Man Lymphocytes # (Manual) Monocytes # (Manual) D-Dimer ABG pH POC ABG pCO2 POC ABG pO2 ABG pO2 ABG Hemoglobin ABG Oxyhemoglobin ABG Sodium ABG Potassium ABG Chloride ABG Glucose Carboxyhemoglobin Sodium 147 H Potassium Chloride 110.7 H Carbon Dioxide BUN 48 H Creatinine Glucose 147 H POC Glucose 133 H 109 H Lactic Acid Calcium Magnesium AST ALT Total Protein Albumin Triglycerides Arterial Blood Glucose Arterial Blood Ionized Calcium Urine WBC (Auto) Urine Creatinine Crossmatch 08/13/21 08/13/21 08/13/21 05:43 11:36 18:00 WBC RBC Hgb Hct MCH MCHC RDW Lymph % (Auto) Lymph # (Auto) [place] # (Auto) Seg Neutrophils % Seg Neuts % (Manual) Lymphocytes % (Manual) Nucleated RBC % Seg Neutrophils # Seg Neutrophils # Man Lymphocytes # (Manual) Monocytes # (Manual) D-Dimer ABG pH POC ABG pCO2 POC ABG pO2 76.8 L ABG pO2 ABG Hemoglobin 8.6 L ABG Oxyhemoglobin ABG Sodium ABG Potassium ABG Chloride 112.0 H ABG Glucose 126 H Carboxyhemoglobin 0.4 L Sodium Potassium Chloride Carbon Dioxide BUN Creatinine Glucose POC Glucose 127 H 128 H Lactic Acid Calcium Magnesium AST ALT Total Protein Albumin Triglycerides Arterial Blood Glucose 126 H Arterial Blood Ionized Calcium 4.4 L Urine WBC (Auto) Urine Creatinine Crossmatch 08/13/21 08/14/21 08/14/21 23:27 04:00 04:00 WBC RBC 2.65 L Hgb 8.1 L Hct 24.0 L MCH MCHC RDW 17.1 H Lymph % (Auto) Lymph # (Auto) [place] # (Auto) Seg Neutrophils % Seg Neuts % (Manual) Lymphocytes % (Manual) Nucleated RBC % Seg Neutrophils # Seg Neutrophils # Man Lymphocytes # (Manual) Monocytes # (Manual) D-Dimer ABG pH POC ABG pCO2 POC ABG pO2 ABG pO2 ABG Hemoglobin ABG Oxyhemoglobin ABG Sodium ABG Potassium ABG Chloride ABG Glucose Carboxyhemoglobin Sodium 146 H Potassium Chloride 108.7 H Carbon Dioxide 31 H BUN 38 H Creatinine Glucose 115 H POC Glucose 125 H Lactic Acid Calcium Magnesium AST ALT Total Protein 5.8 L Albumin 2.6 L Triglycerides Arterial Blood Glucose Arterial Blood Ionized Calcium Urine WBC (Auto) Urine Creatinine Crossmatch 08/14/21 08/14/21 08/15/21 05:24 11:34 05:16 WBC RBC Hgb Hct MCH MCHC RDW Lymph % (Auto) Lymph # (Auto) [place] # (Auto) Seg Neutrophils % Seg Neuts % (Manual) Lymphocytes % (Manual) Nucleated RBC % Seg Neutrophils # Seg Neutrophils # Man Lymphocytes # (Manual) Monocytes # (Manual) D-Dimer ABG pH POC ABG pCO2 POC ABG pO2 ABG pO2 ABG Hemoglobin ABG Oxyhemoglobin ABG Sodium ABG Potassium ABG Chloride ABG Glucose Carboxyhemoglobin Sodium Potassium Chloride Carbon Dioxide BUN Creatinine Glucose POC Glucose 126 H 126 H 110 H Lactic Acid Calcium Magnesium AST ALT Total Protein Albumin Triglycerides Arterial Blood Glucose Arterial Blood Ionized Calcium Urine WBC (Auto) Urine Creatinine Crossmatch 08/15/21 08/15/21 08/15/21 11:37 17:48 Unknown WBC RBC 2.53 L Hgb 7.7 L Hct 23.0 L MCH MCHC RDW 17.0 H Lymph % (Auto) 12.5 L Lymph # (Auto) 1.0 L [place] # (Auto) Seg Neutrophils % 80.4 H Seg Neuts % (Manual) Lymphocytes % (Manual) Nucleated RBC % Seg Neutrophils # Seg Neutrophils # Man Lymphocytes # (Manual) Monocytes # (Manual) D-Dimer ABG pH POC ABG pCO2 POC ABG pO2 ABG pO2 ABG Hemoglobin ABG Oxyhemoglobin ABG Sodium ABG Potassium ABG Chloride ABG Glucose Carboxyhemoglobin Sodium Potassium Chloride Carbon Dioxide BUN Creatinine Glucose POC Glucose 106 H 110 H Lactic Acid Calcium Magnesium AST ALT Total Protein Albumin Triglycerides Arterial Blood Glucose Arterial Blood Ionized Calcium Urine WBC (Auto) Urine Creatinine Crossmatch 08/15/21 08/16/21 08/16/21 Unknown 05:40 12:00 WBC RBC Hgb Hct MCH MCHC RDW Lymph % (Auto) Lymph # (Auto) [place] # (Auto) Seg Neutrophils % Seg Neuts % (Manual) Lymphocytes % (Manual) Nucleated RBC % Seg Neutrophils # Seg Neutrophils # Man Lymphocytes # (Manual) Monocytes # (Manual) D-Dimer ABG pH POC ABG pCO2 POC ABG pO2 ABG pO2 ABG Hemoglobin ABG Oxyhemoglobin ABG Sodium ABG Potassium ABG Chloride ABG Glucose Carboxyhemoglobin Sodium Potassium Chloride 107.2 H Carbon Dioxide BUN 36 H Creatinine Glucose 109 H POC Glucose 111 H 114 H Lactic Acid Calcium Magnesium AST ALT 63 H Total Protein 5.5 L Albumin 2.4 L Triglycerides Arterial Blood Glucose Arterial Blood Ionized Calcium Urine WBC (Auto) Urine Creatinine Crossmatch 08/16/21 08/16/21 08/16/21 12:36 12:36 17:08 WBC RBC 2.54 L Hgb 7.3 L Hct 22.8 L MCH MCHC RDW 17.1 H Lymph % (Auto) Lymph # (Auto) [place] # (Auto) Seg Neutrophils % Seg Neuts % (Manual) Lymphocytes % (Manual) Nucleated RBC % Seg Neutrophils # Seg Neutrophils # Man Lymphocytes # (Manual) Monocytes # (Manual) D-Dimer ABG pH POC ABG pCO2 POC ABG pO2 ABG pO2 ABG Hemoglobin ABG Oxyhemoglobin ABG Sodium ABG Potassium ABG Chloride ABG Glucose Carboxyhemoglobin Sodium Potassium Chloride Carbon Dioxide BUN 39 H Creatinine Glucose 123 H POC Glucose 112 H Lactic Acid Calcium Magnesium AST ALT Total Protein Albumin Triglycerides Arterial Blood Glucose Arterial Blood Ionized Calcium Urine WBC (Auto) Urine Creatinine Crossmatch 08/17/21 08/17/21 08/17/21 05:26 07:27 11:19 WBC RBC Hgb Hct MCH MCHC RDW Lymph % (Auto) Lymph # (Auto) [place] # (Auto) Seg Neutrophils % Seg Neuts % (Manual) Lymphocytes % (Manual) Nucleated RBC % Seg Neutrophils # Seg Neutrophils # Man Lymphocytes # (Manual) Monocytes # (Manual) D-Dimer ABG pH 7.292 L POC ABG pCO2 52.2 H POC ABG pO2 80.8 L ABG pO2 ABG Hemoglobin 9.2 L ABG Oxyhemoglobin 93.8 L ABG Sodium 135.3 L ABG Potassium ABG Chloride ABG Glucose 135 H Carboxyhemoglobin 0.2 L Sodium Potassium Chloride Carbon Dioxide BUN Creatinine Glucose POC Glucose 121 H 137 H Lactic Acid Calcium Magnesium AST ALT Total Protein Albumin Triglycerides Arterial Blood Glucose 135 H Arterial Blood Ionized Calcium Urine WBC (Auto) Urine Creatinine Crossmatch 08/17/21 08/17/21 08/17/21 17:20 21:23 Unknown WBC RBC 2.49 L Hgb 7.5 L Hct 22.2 L MCH MCHC RDW 16.5 H Lymph % (Auto) Lymph # (Auto) [place] # (Auto) Seg Neutrophils % Seg Neuts % (Manual) Lymphocytes % (Manual) Nucleated RBC % Seg Neutrophils # Seg Neutrophils # Man Lymphocytes # (Manual) Monocytes # (Manual) D-Dimer ABG pH 7.337 L POC ABG pCO2 POC ABG pO2 ABG pO2 122.5 H ABG Hemoglobin 7.6 L ABG Oxyhemoglobin ABG Sodium ABG Potassium ABG Chloride ABG Glucose Carboxyhemoglobin Sodium Potassium Chloride Carbon Dioxide BUN Creatinine Glucose POC Glucose 106 H Lactic Acid Calcium Magnesium AST ALT Total Protein Albumin Triglycerides Arterial Blood Glucose Arterial Blood Ionized Calcium Urine WBC (Auto) Urine Creatinine Crossmatch 08/17/21 08/18/21 08/18/21 Unknown 00:04 05:10 WBC RBC 2.65 L Hgb 7.9 L Hct 23.7 L MCH MCHC RDW 17.0 H Lymph % (Auto) Lymph # (Auto) [place] # (Auto) Seg Neutrophils % Seg Neuts % (Manual) Lymphocytes % (Manual) Nucleated RBC % Seg Neutrophils # Seg Neutrophils # Man Lymphocytes # (Manual) Monocytes # (Manual) D-Dimer ABG pH POC ABG pCO2 POC ABG pO2 ABG pO2 ABG Hemoglobin ABG Oxyhemoglobin ABG Sodium ABG Potassium ABG Chloride ABG Glucose Carboxyhemoglobin Sodium Potassium Chloride Carbon Dioxide BUN 37 H Creatinine Glucose 117 H POC Glucose 107 H Lactic Acid Calcium Magnesium AST ALT Total Protein Albumin Triglycerides Arterial Blood Glucose Arterial Blood Ionized Calcium Urine WBC (Auto) Urine Creatinine Crossmatch 08/18/21 08/18/21 08/18/21 05:10 05:10 05:40 WBC RBC Hgb Hct MCH MCHC RDW Lymph % (Auto) Lymph # (Auto) [place] # (Auto) Seg Neutrophils % Seg Neuts % (Manual) Lymphocytes % (Manual) Nucleated RBC % Seg Neutrophils # Seg Neutrophils # Man Lymphocytes # (Manual) Monocytes # (Manual) D-Dimer ABG pH POC ABG pCO2 POC ABG pO2 ABG pO2 ABG Hemoglobin ABG Oxyhemoglobin ABG Sodium ABG Potassium ABG Chloride ABG Glucose Carboxyhemoglobin Sodium 136 L Potassium Chloride Carbon Dioxide BUN 41 H Creatinine Glucose 122 H POC Glucose 122 H Lactic Acid Calcium Magnesium AST ALT Total Protein Albumin Triglycerides Arterial Blood Glucose Arterial Blood Ionized Calcium Urine WBC (Auto) Urine Creatinine Crossmatch See Detail 08/18/21 08/18/21 08/18/21 11:47 18:21 23:53 WBC RBC Hgb Hct MCH MCHC RDW Lymph % (Auto) Lymph # (Auto) [place] # (Auto) Seg Neutrophils % Seg Neuts % (Manual) Lymphocytes % (Manual) Nucleated RBC % Seg Neutrophils # Seg Neutrophils # Man Lymphocytes # (Manual) Monocytes # (Manual) D-Dimer ABG pH POC ABG pCO2 POC ABG pO2 ABG pO2 ABG Hemoglobin ABG Oxyhemoglobin ABG Sodium ABG Potassium ABG Chloride ABG Glucose Carboxyhemoglobin Sodium Potassium Chloride Carbon Dioxide BUN Creatinine Glucose POC Glucose 126 H 110 H 114 H Lactic Acid Calcium Magnesium AST ALT Total Protein Albumin Triglycerides Arterial Blood Glucose Arterial Blood Ionized Calcium Urine WBC (Auto) Urine Creatinine Crossmatch 08/19/21 08/19/21 08/19/21 03:20 03:20 05:21 WBC RBC 2.74 L Hgb 8.5 L Hct 24.8 L MCH MCHC RDW 16.8 H Lymph % (Auto) Lymph # (Auto) [place] # (Auto) Seg Neutrophils % Seg Neuts % (Manual) Lymphocytes % (Manual) Nucleated RBC % Seg Neutrophils # Seg Neutrophils # Man Lymphocytes # (Manual) Monocytes # (Manual) D-Dimer ABG pH POC ABG pCO2 POC ABG pO2 ABG pO2 ABG Hemoglobin ABG Oxyhemoglobin ABG Sodium ABG Potassium ABG Chloride ABG Glucose Carboxyhemoglobin Sodium 133 L Potassium Chloride Carbon Dioxide BUN 40 H Creatinine Glucose 110 H POC Glucose 107 H Lactic Acid Calcium Magnesium AST ALT Total Protein Albumin Triglycerides Arterial Blood Glucose Arterial Blood Ionized Calcium Urine WBC (Auto) Urine Creatinine Crossmatch 08/19/21 08/19/21 08/19/21 11:41 13:45 17:23 WBC RBC Hgb Hct MCH MCHC RDW Lymph % (Auto) Lymph # (Auto) [place] # (Auto) Seg Neutrophils % Seg Neuts % (Manual) Lymphocytes % (Manual) Nucleated RBC % Seg Neutrophils # Seg Neutrophils # Man Lymphocytes # (Manual) Monocytes # (Manual) D-Dimer ABG pH POC ABG pCO2 POC ABG pO2 145.3 H ABG pO2 ABG Hemoglobin 10.0 L ABG Oxyhemoglobin 98.4 H ABG Sodium 134.0 L ABG Potassium ABG Chloride ABG Glucose 141 H Carboxyhemoglobin 0.3 L Sodium Potassium Chloride Carbon Dioxide BUN Creatinine Glucose POC Glucose 124 H 133 H Lactic Acid Calcium Magnesium AST ALT Total Protein Albumin Triglycerides Arterial Blood Glucose 141 H Arterial Blood Ionized Calcium Urine WBC (Auto) Urine Creatinine Crossmatch 08/19/21 08/20/21 08/20/21 23:32 06:00 06:00 WBC RBC 2.53 L Hgb 8.3 L Hct 22.6 L MCH 33 H MCHC 37 H RDW 17.0 H Lymph % (Auto) Lymph # (Auto) [place] # (Auto) Seg Neutrophils % Seg Neuts % (Manual) Lymphocytes % (Manual) Nucleated RBC % Seg Neutrophils # Seg Neutrophils # Man Lymphocytes # (Manual) Monocytes # (Manual) D-Dimer ABG pH POC ABG pCO2 POC ABG pO2 ABG pO2 ABG Hemoglobin ABG Oxyhemoglobin ABG Sodium ABG Potassium ABG Chloride ABG Glucose Carboxyhemoglobin Sodium Potassium Chloride Carbon Dioxide BUN Creatinine Glucose POC Glucose 107 H Lactic Acid Calcium Magnesium AST ALT Total Protein Albumin Triglycerides 1492 H Arterial Blood Glucose Arterial Blood Ionized Calcium Urine WBC (Auto) Urine Creatinine Crossmatch 08/20/21 08/20/21 08/20/21 06:00 16:55 23:55 WBC RBC Hgb Hct MCH MCHC RDW Lymph % (Auto) Lymph # (Auto) [place] # (Auto) Seg Neutrophils % Seg Neuts % (Manual) Lymphocytes % (Manual) Nucleated RBC % Seg Neutrophils # Seg Neutrophils # Man Lymphocytes # (Manual) Monocytes # (Manual) D-Dimer ABG pH POC ABG pCO2 POC ABG pO2 ABG pO2 ABG Hemoglobin ABG Oxyhemoglobin ABG Sodium ABG Potassium ABG Chloride ABG Glucose Carboxyhemoglobin Sodium 134 L Potassium Chloride Carbon Dioxide BUN 42 H Creatinine Glucose 102 H POC Glucose 163 H Lactic Acid Calcium 8.1 L Magnesium AST < 5 L ALT < 5 L Total Protein 4.7 L Albumin 2.2 L Triglycerides 207 H Arterial Blood Glucose Arterial Blood Ionized Calcium Urine WBC (Auto) Urine Creatinine Crossmatch 08/21/21 08/21/21 06:17 12:41 WBC RBC Hgb Hct MCH MCHC RDW Lymph % (Auto) Lymph # (Auto) [place] # (Auto) Seg Neutrophils % Seg Neuts % (Manual) Lymphocytes % (Manual) Nucleated RBC % Seg Neutrophils # Seg Neutrophils # Man Lymphocytes # (Manual) Monocytes # (Manual) D-Dimer ABG pH POC ABG pCO2 POC ABG pO2 ABG pO2 ABG Hemoglobin ABG Oxyhemoglobin ABG Sodium ABG Potassium ABG Chloride ABG Glucose Carboxyhemoglobin Sodium Potassium Chloride Carbon Dioxide BUN Creatinine Glucose POC Glucose 169 H 132 H Lactic Acid Calcium Magnesium AST ALT Total Protein Albumin Triglycerides Arterial Blood Glucose Arterial Blood Ionized Calcium Urine WBC (Auto) Urine Creatinine Crossmatch Chest x-ray: pending Allied health notes reviewed: nursing
--- NOTE | 2021-08-21 15:57 | Progress Note ---
Assessment and Plan Assessment and plan: Assessment and plan: 66-year-old female with PmHx of HTN, DM, HLD, COPD, ex-smoker, breast CA s/p Rt. mastectomy, now with metastatic to the lung. Initially admitted for acute hy poxic respiratory failure, COPD exacerbation, pneumonia and left lower leg DVT, coded on 07/29 and was transferredn to ICU . Patient is s/p tracheostomy and PEGTube insertion, currently vent dependent/ failed multiples CPAP trial Hospital Course to date: 07/29/2021. Patient seen this morning with Shabbir-Chavira respiration/agonal breathing. RENEE ABREU was called and patient was intubated and placed on mechanical ventilation. Patient transferred to ICU. Critical care/pulmonary consulted. Patient currently with AC mode rate of 30, FiO2 100%, PEEP of 12. Continue IV antibiotics. Consult ID and oncology for further evaluation. Patient will likely need bronchoscopy for further evaluation of the lung mass. Doppler ultrasound revealedLLE DVT. Start anticoagulation. 07/30/2021. Patient appears much improved and more responsive this morning. Patient currently with AC mode ventilation rate of 24, tidal volume 450, PEEP of 8 and FiO2 35%. Spontaneous breathing trials with possible extubation today per pulmonary. Bronchoscopy per pulmonary. Continue Lovenox twice daily for DVT. Continue IV antibiotics for sepsis/pneumonia. ID consultation pending. Follow- up [facility], CA 15-3, [place] 2729. 07/31/2021. Echocardiogram reveals left ventricular size and function are normal. EF 50 to 55% with mild diastolic dysfunction. Patient currently with CPAP/PSV trial 11/02. Anticipate extubation today per pulmonary. Bronchoscopy per pulmonary. Continue Lovenox twice daily for DVT. Continue IV antibiotics for sepsis/pneumonia. ID consultation pending. Follow-up [facility], CA 15-3, [place] 2729. 08/01: ALIYAH 08/02: Patient had a bronchoscopy today. Cell count, cytology and AFB sent from samples. Patient remains sedated on fentanyl and Versed. Patient and daughter Rosana were updated. 08/03: [facility] follow-up on [facility] specimens and was informed patient specimens indicate cancer. Communicated to Dr. Abbott and he stated he will update family. 08/04: Patient remains sedated on fentanyl and Versed, patient has moments of agitation with any stimulation. CPAP trial unable to be completed today due to agitation. 08/05: Patient had low urine output overnight and Elizabeth catheter was changed this a.m. with 2 L of urine output received. Patient did have a increase in creatinine however this may have been obstructive process and nephrology is aware. Hematology/oncology spoke to family who wishes for everything to be done despite bronchial washings with cancer cells. [facility] contacted patient's oncologist to help facilitate transfer. We attempted to hold sedation for CPAP trial however patient became extremely agitated and sedation was restarted. 08/06: Surgery consulted for possible trach. Leukocytosis and renal function slowly improving. No acute events reported overnight. 08/07: Creatinine continues to decrease, patient has slight hyper natremia and hyperchloremia. Patient remains on fentanyl and Versed with periods of agitation. Increasing free water flushes. 08-08 improving cr; febrile; family wants full care/full code- heme onc following 08-09 LOW GRADE FEVERS; FOR TRACH/PEG 08/10: Patient seen and examined, had Bronchoscopy and Trach and PEG today, follow report. Continue supportive care. 08/11: Patient remains on full vent support. Continue supportive care. 08/12: This morning patient noted with bleeding around trach surgery consulted going for emergent surgery. Labs ordered 08/13: Patient seen and examined, no further bleeding, had surgical intervention yesterday for trach site bleeding. No further bleeding this am. Patient otherwise remains on mechanical ventilation. Leukocytosis mildly worsened today this could be reactive has no fever will monitor mental status is still severely encephalopathic. 08/14/21 patient seen and examined. Lab and medication reviewed. No further bleeding from track site. Hemoglobin is 8.1. Hematocrit 24.2 and WBC 9.7. Continue current management and supportive care. Recheck CBC CMP in the morning 08/15: Overnight patient experienced sinus pericardia with return, will receive MiraLAX and CPAP trial today. 08/16: CPAP trial failed today. 08/17: given ducloax suppository today 08/18: failed cpap today as she became bradycardiac. able to follow simple commands. update today by phone. See note for details. Ltach referral sent 08/19- Patient is trached and on the vent, sedated with propofol and fentanyl. Attempted SAT today did not tolerated it, so no SBT trial today due to increased agitation and patient required more sedation to reach RASS goal -3 to -4. No documented BM document, PRN MOM administered, continue BR. Continue to monitor renal function, H&H, and electrolytes. AM labs ordered. 08/20: Awaiting placement at LTAC. 08/20: Supportive management. Awaiting placement at LTAC. #Neuro: Acute metabolic encephalopathy, agitation - Sedated with fentanyl and propof gtt - Titrate gtts for RASS goal of -2 to -3 - SAT attempted today, patient did not tolerated due to increase agitation - Avoid delirium- On Seroquel - Bilateral restraints for safety #Cardio: Sinus Tachycardia #s/p cardiac arrest #LLE DVT #H/o HTN & HLD - 07/29- Echocardiogram completed-> EF 50 to 55% with mild diastolic dysfunction - ST- HR as high as 120 possible to agitation/under-sedated, improved once patient target RASS was reached - Continue to monitor blood pressure, MAP goal> 65 and SBP<165 - PRN Hydralazine for SBP>165 - Continue AC- Lovenox Qday #Respiratory: Acute hypoxemic respiratory failure 2/2 Lung mass/CA #COPD exacerbation - 08/10 S/P Tracheostomy - Vent setting: AC 30%,8,12,450 - Today ABG noted d/w CCM - Vent dependent/ unable to wean off vent due to multiple failed trials vazquez down in the 30s - No SBT trial today due to increased agitation and patient required more sedation to reach RASS goal -3 to -4 - VAP bundle addressed - Aspiration precaution; keep HOB elevated> 45 degree - Continue to assess for Daily SBT and SAT trials as tolerated - Continue SPO2 monitoring for SPO2 goal greater than 90% - Continue daily ABG per [facility] #GI: Contipation - 08/10 s/p PEGTube insertion - 08/17 KUB: moderate amount of fecal material throughout theh colon - No BM documented in last 48hrs - Continue enteral nutrition- TF at goal, FWF 100ml Q4h - PRN MOM given 08/19 - Continue bowel regimen: Miralax, senokot, and PRN Ducolax & MOM for constipation - Continue PPI- Pepcid #: Acute kidney injury likely 2/2 vasomotor nephropathy/pre-renal #Hyperchloremia- improved # mild Hyponatremia - 08/01 FeNA 0.13 - 08/19 Bun 40, Cr. 0.7, Na 133, Cl 99.4 - Continue to monitor renal function - Continue to monitor electrolytes, replaced if necessary - Continue Strict intake and output - Elizabeth in place- net + 800ml in last 24hrs - Continue to avoid nephrotoxins, renally dose all medications - Nephrology on consult, appreciate recommendations #ID: Acute sepsis possibly due to PNA vs cardiac event- Resolved - 07/27 B.Cultx2:neg, 07/29 tracheal aspirate:neg, 08/02 Urine cult: neg, 08/08 repeat B.CultX2: neg - Afebrile, TMAX 99, WBCs 5.8 - No longer on IV ABx - ID signed off - Continue to monitor for s/s of infectious process - Daily CBC and BMP #Heme/Onc: H/o breast carcinoma with metastasis to lungs #LLE DVT #Acute Blood loss- resolved - 08/12 Bronchocopy biopsy- result confirm carcinoma c/w breast primary - 08/12 emergent procedure at trach site due to hemorrhage - H&H has been stable 8.5/24.8 - Continue AC- Lovenox - SCDs to bilateral lower extremities while in bed - Heme/Onc on Consult - Per Heme/Onc patient is "not a good candidate for chemotherapy, but chest tumor radiation may be possible" #Endo: Hyperglycemia, H/o DM - Continue SSI for a Target blood glucose of 140-180 - Avoid hypoglycemia #Advance care planning - Team has been discussing plan of care with Patient's , Femi. - Plan to discharge to [facility]ACH, case management to arrange The high probability of a clinically significant, sudden or life threatening deterioration of the [multi] system(s) required my full and direct attention, intervention and personal management. The aggregate critical care time was [60] minutes. This time is in addition to time spent performing reported procedures but includes the following: [x] Data Review and interpretation [x] Patient assessment and monitoring of vital signs [x] Documentation [x] Medication orders and management Disposition Plan: ICU Total Time Spent with Patient (Minutes): 60 Total Time Spent with Patient (Minutes): 60 History Interval history: I saw and evaluated the patient. Discussed with the nurse practitioner and agree with their findings and plan as documented in this note. Hospitalist Physical - Physical exam Narrative exam: General appearance: Present: mild distress (due to increased agitation) - EENT Eyes: Present: PERRL - Respiratory Respiratory effort: normal Respiratory: bilateral: wheezing - Cardiovascular Rhythm: regular Heart Sounds: Present: S1 & S2 - Extremities Extremities: pulses intact, pulses symmetrical Extremity abnormal: edema - Peripheral Assessment Generalized Edema Type: Non-pitting Edema Degree: 1+ Capillary Refill: < 3 seconds Skin Temperature: Warm - Abdominal General gastrointestinal: soft, non-tender, non-distended, normal bowel sounds - Integumentary Integumentary: Present: warm, dry - Psychiatric Psychiatric: agitated - Neurologic Neurologic: moves all extremities - Allied Health Allied health notes reviewed: nursing - Constitutional Vitals: Temp Pulse Resp BP Pulse Ox 98.0 F 81 14 106/57 99 08/21/21 08:00 08/21/21 15:45 08/21/21 15:45 08/21/21 15:45 08/21/21 15:45 General appearance: Present: mild distress (due to increased agitation) Results - Labs CBC & Chem 7: 08/20/21 06:00 08/20/21 06:00 Labs: Laboratory Last Values WBC 5.1 K/mm3 (4.5-11.0) 08/20/21 06:00 RBC 2.53 M/mm3 (3.65-5.03) L 08/20/21 06:00 Hgb 8.3 gm/dl (10.1-14.3) L 08/20/21 06:00 Hct 22.6 % (30.3-42.9) L 08/20/21 06:00 MCV 89 fl (79-97) 08/20/21 06:00 MCH 33 pg (28-32) H 08/20/21 06:00 MCHC 37 % (30-34) H 08/20/21 06:00 RDW 17.0 % (13.2-15.2) H 08/20/21 06:00 Plt Count 310 K/mm3 (140-440) 08/20/21 06:00 Lymph % (Auto) 12.5 % (13.4-35.0) L 08/15/21 Unknown [place] % (Auto) 5.9 % (0.0-7.3) 08/15/21 Unknown Eos % (Auto) 0.9 % (0.0-4.3) 08/15/21 Unknown Baso % (Auto) 0.3 % (0.0-1.8) 08/15/21 Unknown Lymph # (Auto) 1.0 K/mm3 (1.2-5.4) L 08/15/21 Unknown [place] # (Auto) 0.5 K/mm3 (0.0-0.8) 08/15/21 Unknown Eos # (Auto) 0.1 K/mm3 (0.0-0.4) 08/15/21 Unknown Baso # (Auto) 0.0 K/mm3 (0.0-0.1) 08/15/21 Unknown Add Manual Diff Complete 08/05/21 04:50 Total Counted 100 08/05/21 04:50 Seg Neutrophils % 80.4 % (40.0-70.0) H 08/15/21 Unknown Seg Neuts % (Manual) 75.0 % (40.0-70.0) H 08/05/21 04:50 Band Neutrophils % 8.0 % 08/05/21 04:50 Lymphocytes % (Manual) 2.0 % (13.4-35.0) L 08/05/21 04:50 Monocytes % (Manual) 5.0 % (0.0-7.3) 08/05/21 04:50 Eosinophils % (Manual) 1.0 % (0.0-4.3) 08/05/21 04:50 Metamyelocytes % 6.0 % 08/05/21 04:50 Myelocytes % 3.0 % 08/05/21 04:50 Nucleated RBC % Not Reportable 08/05/21 04:50 Seg Neutrophils # 6.4 K/mm3 (1.8-7.7) 08/15/21 Unknown Seg Neutrophils # Man 14.3 K/mm3 (1.8-7.7) H 08/05/21 04:50 Band Neutrophils # 1.5 K/mm3 08/05/21 04:50 Lymphocytes # (Manual) 0.4 K/mm3 (1.2-5.4) L 08/05/21 04:50 Abs React Lymphs (Man) 0.0 K/mm3 08/05/21 04:50 Monocytes # (Manual) 1.0 K/mm3 (0.0-0.8) H 08/05/21 04:50 Eosinophils # (Manual) 0.2 K/mm3 (0.0-0.4) 08/05/21 04:50 Basophils # (Manual) 0.0 K/mm3 (0.0-0.1) 08/05/21 04:50 Metamyelocytes # 1.1 K/mm3 08/05/21 04:50 Myelocytes # 0.6 K/mm3 08/05/21 04:50 Promyelocytes # 0.0 K/mm3 08/05/21 04:50 Blast Cells # 0.0 K/mm3 08/05/21 04:50 WBC Morphology Not Reportable 08/05/21 04:50 Hypersegmented Neuts Not Reportable 08/05/21 04:50 Hyposegmented Neuts Not Reportable 08/05/21 04:50 Hypogranular Neuts Not Reportable 08/05/21 04:50 Smudge Cells Not Reportable 08/05/21 04:50 Toxic Granulation Not Reportable 08/05/21 04:50 Toxic Vacuolation Not Reportable 08/05/21 04:50 Dohle Bodies Not Reportable 08/05/21 04:50 Pelger-Huet Anomaly Not Reportable 08/05/21 04:50 Beryl Rods Not Reportable 08/05/21 04:50 Platelet Estimate Consistent w auto 08/05/21 04:50 Clumped Platelets Not Reportable 08/05/21 04:50 Plt Clumps, EDTA Not Reportable 08/05/21 04:50 Large Platelets Not Reportable 08/05/21 04:50 Giant Platelets Not Reportable 08/05/21 04:50 Platelet Satelliting Not Reportable 08/05/21 04:50 Plt Morphology Comment Not Reportable 08/05/21 04:50 RBC Morphology Not Reportable 08/05/21 04:50 Dimorphic RBCs Not Reportable 08/05/21 04:50 Polychromasia Not Reportable 08/05/21 04:50 Hypochromasia Not Reportable 08/05/21 04:50 Poikilocytosis Not Reportable 08/05/21 04:50 Anisocytosis Not Reportable 08/05/21 04:50 Microcytosis Not Reportable 08/05/21 04:50 Macrocytosis Not Reportable 08/05/21 04:50 Spherocytes Not Reportable 08/05/21 04:50 Pappenheimer Bodies Not Reportable 08/05/21 04:50 Sickle Cells Not Reportable 08/05/21 04:50 Target Cells Not Reportable 08/05/21 04:50 Tear Drop Cells Not Reportable 08/05/21 04:50 Ovalocytes Few 08/05/21 04:50 Helmet Cells Not Reportable 08/05/21 04:50 Paul-Chadbourn Bodies Not Reportable 08/05/21 04:50 [place] Rings Not Reportable 08/05/21 04:50 Mcclure Cells Not Reportable 08/05/21 04:50 Bite Cells Not Reportable 08/05/21 04:50 Crenated Cell Not Reportable 08/05/21 04:50 Elliptocytes Not Reportable 08/05/21 04:50 Acanthocytes (Spur) Not Reportable 08/05/21 04:50 Rouleaux Not Reportable 08/05/21 04:50 Hemoglobin C Crystals Not Reportable 08/05/21 04:50 Schistocytes Not Reportable 08/05/21 04:50 Malaria parasites Not Reportable 08/05/21 04:50 Gurmeet Bodies Not Reportable 08/05/21 04:50 Hem Pathologist Commnt No 08/05/21 04:50 PT 14.5 Sec. (12.2-14.9) 08/12/21 21:41 INR 1.08 (0.87-1.13) 08/12/21 21:41 APTT 29.9 Sec. (24.2-36.6) 08/10/21 05:20 D-Dimer 852.47 ng/mlDDU (0-234) H 07/29/21 07:17 ABG pH 7.401 (7.320-7.450) 08/19/21 13:45 POC ABG pCO2 39.8 mmHg (32.0-48.0) 08/19/21 13:45 ABG pCO2 46.6 mm Hg 08/17/21 21:23 POC ABG pO2 145.3 mmHg (83-108) H 08/19/21 13:45 ABG pO2 122.5 mm Hg (80.0-90.0) H 08/17/21 21:23 POC ABG HCO3 24.2 08/19/21 13:45 ABG HCO3 24.4 mmol/L (20.0-26.0) 08/17/21 21:23 ABG O2 Saturation 99.0 (0-100) 08/19/21 13:45 ABG O2 Content 10.6 (0.0-44) 08/17/21 21:23 POC ABG Base Excess -0.5 08/19/21 13:45 ABG Base Excess -1.4 mmol/L (-2.0-3.0) 08/17/21 21:23 ABG Hemoglobin 10.0 (12.0-17.5) L 08/19/21 13:45 ABG Oxyhemoglobin 98.4 (94-98) H 08/19/21 13:45 ABG Carboxyhemoglobin 1.8 % (0.0-5.0) 08/17/21 21:23 ABG Methemoglobin 0.3 (0.0-1.5) 08/19/21 13:45 ABG Sodium 134.0 mmol/L (136.0-145.0) L 08/19/21 13:45 ABG Potassium 4.2 mmol/L (3.40-4.50) 08/19/21 13:45 ABG Chloride 102.0 mmol/L (98-107) 08/19/21 13:45 ABG Glucose 141 mg/dL (65-95) H 08/19/21 13:45 Oxyhemoglobin 96.2 % (95.0-99.0) 08/17/21 21:23 Carboxyhemoglobin 0.3 (0.5-1.5) L 08/19/21 13:45 FiO2 30 % 08/17/21 21:23 FiO2 % 30.0 08/19/21 13:45 Sodium 134 mmol/L (137-145) L 08/20/21 06:00 Potassium 4.3 mmol/L (3.6-5.0) 08/20/21 06:00 Chloride 98.6 mmol/L (98-107) 08/20/21 06:00 Carbon Dioxide 23 mmol/L (22-30) 08/20/21 06:00 Anion Gap 17 mmol/L 08/20/21 06:00 BUN 42 mg/dL (7-17) H 08/20/21 06:00 Creatinine 0.6 mg/dL (0.6-1.2) 08/20/21 06:00 Estimated GFR > 60 ml/min 08/20/21 06:00 BUN/Creatinine Ratio 70 % 08/20/21 06:00 Glucose 102 mg/dL (65-100) H 08/20/21 06:00 POC Glucose 132 mg/dL (70-105) H 08/21/21 12:41 Lactic Acid 2.10 mmol/L (0.7-2.0) H* 08/03/21 15:11 Calcium 8.1 mg/dL (8.4-10.2) L 08/20/21 06:00 Phosphorus 4.10 mg/dL (2.5-4.5) 08/08/21 06:00 Magnesium 1.70 mg/dL (1.7-2.3) 08/12/21 21:41 Total Bilirubin 0.30 mg/dL (0.1-1.2) 08/20/21 06:00 AST < 5 units/L (5-40) L 08/20/21 06:00 ALT < 5 units/L (7-56) L 08/20/21 06:00 Alkaline Phosphatase 120 units/L (35-129) 08/20/21 06:00 Serum Total Protein See scanned result 08/03/21 04:17 Total Protein 4.7 g/dL (6.3-8.2) L 08/20/21 06:00 Albumin 2.2 g/dL (3.9-5) L 08/20/21 06:00 Albumin/Globulin Ratio 0.9 % 08/20/21 06:00 [id number] See scanned result 08/03/21 04:17 [id number] See scanned result 08/03/21 04:17 Beta Globulins See scanned result 08/03/21 04:17 Gamma Globulins See scanned result 08/03/21 04:17 Abnorm Protein Band 1 See scanned result 08/03/21 04:17 Abnorm Protein Band 2 See scanned result 08/03/21 04:17 Abnorm Protein Band 3 See scanned result 08/03/21 04:17 PEP Interpretation See scanned result 08/03/21 04:17 Triglycerides 207 mg/dL (2-149) H 08/20/21 16:55 Lipase 56 units/L (13-60) 08/20/21 16:55 Carcinoembryonic Ag <0.5 ng/mL (0.0-2.4) 07/31/21 04:45 Arterial Blood Glucose 141 mg/dL (65-95) H 08/19/21 13:45 Arterial Blood Ionized Calcium 4.6 mg/dL (4.6-5.3) 08/17/21 07:27 Urine Color Yellow (Yellow) 08/08/21 20: Urine Turbidity Slightly-cloudy (Clear) 08/08/21 20: Urine pH 5.0 (5.0-7.0) 08/08/21 20:27 Ur Specific [place] 1.014 (1.003-1.030) 08/08/21 20: Urine Protein 30 mg/dl mg/dL (Negative) 08/08/21 20: Urine Glucose (UA) Neg mg/dL (Negative) 08/08/21 20: Urine Ketones Neg mg/dL (Negative) 08/08/21 20: Urine Blood Mod (Negative) 08/08/21 20: Urine Nitrite Neg (Negative) 08/08/21 20: Urine Bilirubin Neg (Negative) 08/08/21 20: Urine Urobilinogen < 2.0 mg/dL (<2.0) 08/08/21 20:27 Ur Leukocyte Esterase Neg (Negative) 08/08/21 20:27 Urine WBC (Auto) 6.0 /HPF (0.0-6.0) 08/08/21 20: Urine RBC (Auto) 6.0 /HPF (0.0-6.0) 08/08/21 20: U Epithel Cells (Auto) < 1.0 /HPF (0-13.0) 08/08/21 20:27 Urine Bacteria (Auto) 1+ /HPF (Negative) 08/08/21 20: Urine Mucus Few /HPF 08/08/21 20: Urine Yeast (Budding) 1+ /HPF 08/08/21 20:27 Urine Creatinine 125.6 mg/dL (0.1-20.0) H 08/01/21 Unknown Urine Sodium 12 mmol/L 08/01/21 Unknown Proteinase 3 (PR3) Ab See scanned result 08/02/21 15:40 Myeloperoxidase Ab See scanned result 08/02/21 15:40 Double Strand DNA Ab 1 IU/mL (<=4) 08/02/21 15:40 Coronavirus (PCR) Negative (Negative) 07/29/21 07:58 Hepatitis A IgM Ab Non-reactive (NonReactive) 08/02/21 15:40 Hep Bs Antigen Nonreactive (Negative) 08/02/21 15:40 Hep B Core IgM Ab Non-reactive (NonReactive) 08/02/21 15:40 Hepatitis C Antibody Non-reactive (NonReactive) 08/02/21 15:40 AFB Identification Negative 08/02/21 14:30 Blood Type A POSITIVE 08/18/21 05:10 Antibody Screen Negative 08/18/21 05:10 Crossmatch See Detail 08/18/21 05:10 Elizabeth/IV: Voiding Method Indwelling Catheter Active Medications - Current Medications Current Medications: Generic Name Dose Route Start Last Admin Trade Name Freq PRN Reason Stop Dose Admin Acetaminophen 650 mg 07/28/21 02:11 08/18/21 22:02 Acetaminophen 325 Mg Tab PO 650 mg Q6H PRN Administration Pain MILD(1-3)/Fever >100.5/GARCIA Albuterol/Ipratropium 1 ampul 07/28/21 14:00 08/21/21 14:55 Ipratropium/Albuterol Sulfate 3 Ml Ampul.Neb IH 1 ampul TID DEMIAN Administration Lipase/Protease/Amylase 1 each 07/29/21 13:01 Lipase 10,500/Protease 25,000/Amylase 43,750 (Units) Dr Gilles WRIGHTTUBE PRN PRN For Clogged Feeding Tube Arformoterol Tartrate 15 mcg 07/28/21 20:00 08/21/21 08:36 Arformoterol 15 Mcg/2 Ml Nebu IH 15 mcg Q12HRT DEMIAN Administration Bisacodyl 10 mg 08/07/21 09:50 08/20/21 09:22 Bisacodyl 10 Mg Rect Supp CO 10 mg QDAY PRN Administration Constip unreliev by MOM/or NPO Budesonide 0.5 mg 07/28/21 20:00 08/21/21 08:36 Budesonide 0.5 Mg/2 Ml Nebu IH 0.5 mg Q12HRT DEMIAN Administration Dextrose 50 ml 07/28/21 02:11 08/10/21 18:05 Dextrose 50% In Water (25gm) 50 Ml Syringe IV 20 ml Q30MIN PRN Administration Hypoglycemia Protocol Enoxaparin Sodium 40 mg 08/19/21 10:00 08/21/21 10:18 Enoxaparin 40 Mg/0.4 Ml Inj SUB-Q 40 mg QDAY DEMIAN Administration Protocol Famotidine 20 mg 08/15/21 10:00 08/21/21 10:19 Famotidine 20 Mg Tab FEEDTUBE 20 mg BID DEMIAN Administration Fentanyl 50 mcg 07/29/21 10:42 08/04/21 09:05 Fentanyl 100 Mcg/2 Ml Inj IV 50 mcg Q10MIN PRN Administration ANALGESIA Hydralazine HCl 10 mg 07/30/21 14:52 08/19/21 12:12 Hydralazine 20 Mg/1 Ml Inj IV 10 mg Q6H PRN Administration SBP > 165 Hydrophilic Ointment 1 applic 07/29/21 10:42 Lip Therapy Vaseline TP Q2HR PRN Dry Lips Fentanyl Citrate 2,000 mcg in 100 mls @ 5.35 mls/hr 07/29/21 11:00 08/21/21 10:41 Fentanyl Drip Premix IV 4 mcg/kg/hr TITR DEMIAN 21.4 mls/hr Administration Protocol 1 MCG/KG/HR Norepinephrine 4 mg in 250 mls @ 7.5 mls/hr 07/29/21 21:00 Levophed Drip 4 Mg/Ns 250 Ml IV TITR DEMIAN Protocol 2 MCG/MIN Midazolam HCl 100 mg/ Sodium 100 mls @ 1 mls/hr 08/20/21 17:00 08/21/21 15:41 Chloride IV 2 mg/hr TITR DEMIAN 2 mls/hr Titration Protocol 1 MG/HR Insulin Human Lispro 0 unit 07/29/21 12:00 08/21/21 07:02 Insulin Lispro 100 Unit/Ml SUB-Q 3 unit Q6HR DEMIAN Administration Protocol Magnesium Hydroxide 30 ml 07/28/21 02:11 08/20/21 09:21 Magnesium Hydroxide (Mom) Oral Liqd Udc PO 30 ml Q4H PRN Administration Constipation Methylprednisolone Sodium Succinate 80 mg 08/20/21 13:00 08/21/21 13:26 Methylprednisolone Sod Succinate 125 Mg/2 Ml Inj IV 08/22/21 12:59 80 mg Q12H DEMIAN Administration Midazolam HCl 2 mg 08/20/21 16:15 08/20/21 18:33 Midazolam 2 Mg/2 Ml Inj IV 2 mg Q10MIN PRN Administration Sedation Multi-Ingred Cream/Lotion/Oil/Oint 1 applic 07/29/21 10:42 Mineral Oil/Petrolatum, White Ophth Oint 3.5 Gm OU Q4HR PRN Dry Eye(s) Oxycodone HCl 5 mg 08/18/21 15:45 08/18/21 21:58 Oxycodone 5 Mg Tab PO 5 mg Q4H PRN Administration Pain, Moderate (4-6) Polyethylene Glycol 17 gm 08/11/21 16:00 08/21/21 10:19 Polyethylene Glycol 3350 17 Gm Powder PO 17 gm QDAY DEMIAN Administration Quetiapine Fumarate 250 mg 08/20/21 16:19 08/21/21 10:18 Quetiapine 100 Mg Tab PO 250 mg BID DEMIAN Administration Senna/Docusate Sodium 1 tab 08/11/21 13:00 08/21/21 13:26 Sennosides/Docusate Sodium 8.6/50 Mg Tab FEEDTUBE 1 tab Q8H DEMIAN Administration Simple Syrup 15 ml 07/29/21 13:01 Simple Syrup 15 Ml FEEDTUBE PRN PRN Hypoglycemia Simple Syrup 30 ml 07/29/21 13:01 Simple Syrup 15 Ml FEEDTUBE PRN PRN Hypoglycemia Sodium Bicarbonate 325 mg 07/29/21 13:01 Sodium Bicarbonate 325 Mg Tab FEEDTUBE PRN PRN For Clogged Feeding Tube Sodium Chloride 10 ml 07/28/21 10:00 08/21/21 10:19 Sodium Chloride 0.9% 10 Ml Flush Syringe IV 10 ml BID DEMIAN Administration Sodium Chloride 10 ml 07/28/21 02:05 Sodium Chloride 0.9% 10 Ml Flush Syringe IV PRN PRN LINE FLUSH Nutrition/Malnutrition Assess - Dietary Evaluation Nutrition/Malnutrition Findings: Nutrition Notes Start: 07/28/21 14:44 Freq: Status: Active Protocol: Document 08/16/21 15:09 KAREY (Rec: 08/16/21 15:16 KAREY [id number]) Nutrition Notes Initial or Follow up Reassessment Current Diagnosis Diabetes,Hypertension, Respiratory Failure, Hyperlipidemia Current Diet TF - Vital AF 1.2 at 50ml/hr Labs/Tests Na 144 Pertinent Medications Senna, Miralax, Dulcolax Height 5 ft Weight 107 kg [place] Body Weight (kg) 45.45 BMI 46.0 Weight Status Morbidly Obese Subjective/Other Information Spoke with RN via phone at 15: 08. Pt still has not had a BM . Medications given today. Pt tolerating TF at goal rate and remains on vent support. Percent of energy/protein needs met: 78% energy 79% pro Burn Absent Trauma Absent GI Symptoms Constipation #1 Nutrition Diagnosis Inadequate oral intake Diagnosis Progress(for reassessment Continues documentation) Is patient on ventilator? Yes Is Patient Ambulatory and/or Out of Bed No REE-([facility]-confined to bed) 1842.852 Kcal/Kg value to use for calculation 13 Approximate Energy Requirements Using 1391 kcal/Kg Calculation Used for Recommendations Kcal/kg Additional Notes Protein: (up to 2.5g/kg IBW) up to 114g Fluid: 1 ml/kcal or per MD Nutrition Intervention Nutrition Support: Continue Vital AF 1.2 at 50 ml /hr. Per RN, pt receiving 200ml water flush q4h. Kcal 1,440 Protein (gm) 90 Fluid (mL) 973 Goal #1 TF tolerance Goal #2 TF to meet at least 75% energy and pro needs Follow-Up By: 08/23/21 Additional Comments F/U: stable TF, BM, vent status
[2021-08-22] MEDS: INSULIN LISPRO 100 UNIT/ML SUB-Q SCH ×3 (00:43→18:07)
--- NOTE | 2021-08-22 04:24 | XRay Report ---
CHEST 1 VIEW INDICATION / CLINICAL INFORMATION: intubated STUDY TIME: 217 COMPARISON: 08/19/2021 FINDINGS: SUPPORT DEVICES: Stable HEART / MEDIASTINUM: Stable LUNGS / PLEURA: Fairly diffuse bilateral pulmonary infiltrates/edema continue with mild worsening on the right. No pneumothorax. ADDITIONAL FINDINGS: No significant additional findings. Signer Name: Luis Villatoro MD Signed: 08/22/2021 4:20 AM Workstation Name: [id number]
[2021-08-22] MEDS: fentaNYL DRIP Premix 2,000 MCG/100 ML BAG IV SCH ×3 (06:10→14:59)
[2021-08-22 06:27] LABS: Hematocrit 25.4 % (30.3-42.9); Hemoglobin 8.2 gm/dl (10.1-14.3); Mean Corpuscular HGB Conc 32 % (30-34); Mean Corpuscular Volume 91 fl (79-97); Platelet Count 465 K/mm3 (140-440); Red Cell Distribution Width 16.9 % (13.2-15.2)
[2021-08-22 06:53] LABS: Alanine Aminotransferase 51 units/L (7-56); Albumin 2.7 g/dL (3.9-5); Blood Urea Nitrogen 52 mg/dL (7-17); Calcium 8.7 mg/dL (8.4-10.2); Hemolysis Index 3
[2021-08-22 06:56] LABS: BUN/Creatinine Ratio 74
[2021-08-22] MEDS: fentaNYL 100 MCG/2 ML INJ IV PRN (07:15)
[2021-08-22] MEDS: ARFORMOTEROL 15 MCG/2 ML NEBU IH SCH ×2 (07:39→20:25)
[2021-08-22] MEDS: BUDESONIDE 0.5 MG/2 ML NEBU IH SCH ×2 (07:39→20:25)
[2021-08-22] MEDS: IPRATROPIUM/ALBUTEROL SULFATE 3 ML AMPUL.NEB IH SCH ×3 (07:39→20:25)
[2021-08-22] MEDS: QUEtiapine 100 MG TAB PO SCH ×2 (10:23→22:00)
[2021-08-22] MEDS: POLYETHYLENE GLYCOL 3350 17 GM POWDER PO SCH (10:24)
[2021-08-22] MEDS: FAMOTIDINE 20 MG TAB FEEDTUBE SCH ×2 (10:36→23:48)
[2021-08-22] MEDS: FREE WATER PO SCH ×3 (10:40→22:00)
[2021-08-22] MEDS: ENOXAPARIN 40 MG/0.4 ML INJ SUB-Q SCH (10:41)
--- NOTE | 2021-08-22 11:33 | Progress Note ---
Assessment and Plan Acute hypoxemic respiratory failure secondary Lung Mass (? Lung vs Breast CA) Acute COPD exacerbation Possible hypercapnia History of right breast cancer Leukocytosis DM II Hypertension Hyperlipidemia Tobacco use disorder - Vascular surgery consult placed for VTE - repeat US extremities ordered - continue TV 350 re: high PIP's - awaiting transfer to LT[facility] - hopefully can be seen by radiological oncologist +/- RTX to central lesions / mediastinopathy - continue care as below otherwise; - continue daily SAT and SBT assessment as tolerated - s/p full anticoagulation for VTE - continue Seroquel to spare IV sedatives - azotemia per nephrology - continue to wean supplemental oxygen for target O2 sat's > 90% acutely - VAP bundle addressed - continue lung protective strategies - continue bronchodilators (GLADIS & LABA) with pulmonary hygiene per RT - wean per pulmonary driven protocols otherwise - continue accuchecks with glycemic control per SSI (While critically ill target blood glucose of 140-180 mg/dL; avoid hypoglycemia) - sedation prn for target RASS 0 to -1 - avoid nephrotoxins, renally dose all medications - continue to avoid benzodiazepine's, reduce the possibility of delirium - complete AB's per ID rec's - prn analgesia per CPOT score - Maintenance of sleep-wake cycle, avoid delirium - enteral nutritional support at goal rate as tolerated - G.I. & VTE prophylaxis - PT/OT/ROM exercises - continue mobility protocols for pressure ulcer prophylaxis - Monitor hemodynamics closely - continue other care per attending / other consultants - discharge planning ongoing concurrently COVID SPECIFIC INTERVENTIONS - test result pending .... Re-evaluate in am & prn CONDITION: CRITICAL PROGNOSIS: GUARDED CODE STATUS: FULL CODE The high probability of a clinically significant, sudden or life-threatening deterioration of the [respiratory, cardiovascular, oncological & neurologic] system(s) required my full and direct attention, intervention and personal management. The aggregate critical care time was [34] minutes without overlap. Time includes spent on; [x] Data Review and interpretation [x] Patient assessment and monitoring of vital signs [x] Documentation [x] Medication orders and management Subjective Date of service: 08/22/21 Principal diagnosis: Ac hypoxemic resp failure ; AE-COPD; H/O CA Breast; DM II; HTN Interval history: Patient is seen today for: Acute hypoxemic respiratory failure; AE-COPD; Possible hypercapnia; H/O CA Breast; DM II; HTN Seen and examined at bedside; 24hour events reviewed; nursing and respiratory care staff consulted; no adverse overnight events reported to me; resting in bed; remains on MVS; still not tolerating SBT's; no emesis or overt aspiration; no gross bleeding Objective Vital Signs - 12hr 08/21/21 08/21/21 08/22/21 23:45 23:49 00:00 Temperature 98.7 F Pulse Rate 99 H 112 H Pulse Rate [ Anterior Bilateral] Pulse Rate [ 86 From Monitor] Respiratory 13 13 Rate Respiratory Rate [Anterior Bilateral] Blood Pressure 139/85 O2 Sat by Pulse 99 96 Oximetry O2 Sat by Pulse Oximetry [ Assessment] 08/22/21 08/22/21 08/22/21 00:01 00:15 00:16 Temperature Pulse Rate 112 H 97 H 96 H Pulse Rate [ Anterior Bilateral] Pulse Rate [ From Monitor] Respiratory 22 15 Rate Respiratory Rate [Anterior Bilateral] Blood Pressure 127/77 127/77 127/77 O2 Sat by Pulse 94 99 99 Oximetry O2 Sat by Pulse Oximetry [ Assessment] 08/22/21 08/22/21 08/22/21 00:30 00:46 01:00 Temperature Pulse Rate 98 H 94 H 91 H Pulse Rate [ Anterior Bilateral] Pulse Rate [ From Monitor] Respiratory 13 14 14 Rate Respiratory Rate [Anterior Bilateral] Blood Pressure 118/64 118/64 113/58 O2 Sat by Pulse 92 96 93 Oximetry O2 Sat by Pulse Oximetry [ Assessment] 08/22/21 08/22/21 08/22/21 01:15 01:30 01:45 Temperature Pulse Rate 92 H 84 89 Pulse Rate [ Anterior Bilateral] Pulse Rate [ From Monitor] Respiratory 13 13 15 Rate Respiratory Rate [Anterior Bilateral] Blood Pressure 110/56 114/59 114/59 O2 Sat by Pulse 100 94 100 Oximetry O2 Sat by Pulse Oximetry [ Assessment] 08/22/21 08/22/21 08/22/21 02:00 02:15 02:30 Temperature Pulse Rate 86 86 86 Pulse Rate [ Anterior Bilateral] Pulse Rate [ From Monitor] Respiratory 11 L 13 13 Rate Respiratory Rate [Anterior Bilateral] Blood Pressure 118/68 118/68 118/62 O2 Sat by Pulse 95 100 96 Oximetry O2 Sat by Pulse Oximetry [ Assessment] 08/22/21 08/22/21 08/22/21 02:45 03:00 03:15 Temperature Pulse Rate 87 81 80 Pulse Rate [ Anterior Bilateral] Pulse Rate [ From Monitor] Respiratory 14 14 13 Rate Respiratory Rate [Anterior Bilateral] Blood Pressure 118/62 109/57 108/57 O2 Sat by Pulse 100 97 97 Oximetry O2 Sat by Pulse Oximetry [ Assessment] 08/22/21 08/22/21 08/22/21 03:30 03:44 03:45 Temperature 98.3 F Pulse Rate 76 76 Pulse Rate [ Anterior Bilateral] Pulse Rate [ From Monitor] Respiratory 14 14 Rate Respiratory Rate [Anterior Bilateral] Blood Pressure 105/55 104/56 O2 Sat by Pulse 97 97 Oximetry O2 Sat by Pulse Oximetry [ Assessment] 08/22/21 08/22/21 08/22/21 03:55 04:00 04:15 Temperature Pulse Rate 75 80 79 Pulse Rate [ Anterior Bilateral] Pulse Rate [ 86 From Monitor] Respiratory 12 12 Rate Respiratory Rate [Anterior Bilateral] Blood Pressure 127/77 122/72 130/77 O2 Sat by Pulse 100 99 100 Oximetry O2 Sat by Pulse Oximetry [ Assessment] 08/22/21 08/22/21 08/22/21 04:30 04:45 05:00 Temperature Pulse Rate 77 75 72 Pulse Rate [ Anterior Bilateral] Pulse Rate [ From Monitor] Respiratory 12 13 12 Rate Respiratory Rate [Anterior Bilateral] Blood Pressure 107/61 101/52 100/52 O2 Sat by Pulse 96 97 97 Oximetry O2 Sat by Pulse Oximetry [ Assessment] 08/22/21 08/22/21 08/22/21 05:15 05:18 05:30 Temperature Pulse Rate 74 74 Pulse Rate [ Anterior Bilateral] Pulse Rate [ From Monitor] Respiratory 13 13 Rate Respiratory Rate [Anterior Bilateral] Blood Pressure 103/55 106/55 O2 Sat by Pulse 97 97 Oximetry O2 Sat by Pulse 99 Oximetry [ Assessment] 08/22/21 08/22/21 08/22/21 05:45 06:00 06:16 Temperature Pulse Rate 74 74 79 Pulse Rate [ Anterior Bilateral] Pulse Rate [ From Monitor] Respiratory 14 12 12 Rate Respiratory Rate [Anterior Bilateral] Blood Pressure 104/54 106/56 124/81 O2 Sat by Pulse 97 97 99 Oximetry O2 Sat by Pulse Oximetry [ Assessment] 08/22/21 08/22/21 08/22/21 06:30 06:45 07:00 Temperature Pulse Rate 86 93 H 92 H Pulse Rate [ Anterior Bilateral] Pulse Rate [ From Monitor] Respiratory 11 L 13 12 Rate Respiratory Rate [Anterior Bilateral] Blood Pressure 133/82 144/87 145/91 O2 Sat by Pulse 100 100 100 Oximetry O2 Sat by Pulse Oximetry [ Assessment] 08/22/21 08/22/21 08/22/21 07:15 07:30 07:35 Temperature Pulse Rate 92 H 90 94 H Pulse Rate [ Anterior Bilateral] Pulse Rate [ From Monitor] Respiratory 13 13 Rate Respiratory Rate [Anterior Bilateral] Blood Pressure 132/84 148/83 148/83 O2 Sat by Pulse 100 99 100 Oximetry O2 Sat by Pulse Oximetry [ Assessment] 08/22/21 08/22/21 08/22/21 07:39 07:46 08:00 Temperature 99.2 F Pulse Rate 97 H 95 H Pulse Rate [ 100 H Anterior Bilateral] Pulse Rate [ From Monitor] Respiratory 18 15 Rate Respiratory 21 Rate [Anterior Bilateral] Blood Pressure 168/113 136/89 O2 Sat by Pulse 98 100 Oximetry O2 Sat by Pulse 99 Oximetry [ Assessment] 08/22/21 08/22/21 08/22/21 08:16 08:20 08:30 Temperature Pulse Rate 103 H 89 Pulse Rate [ Anterior Bilateral] Pulse Rate [ From Monitor] Respiratory 16 15 Rate Respiratory Rate [Anterior Bilateral] Blood Pressure 175/101 131/74 O2 Sat by Pulse 100 100 96 Oximetry O2 Sat by Pulse Oximetry [ Assessment] 08/22/21 08/22/21 08/22/21 08:46 09:00 09:15 Temperature Pulse Rate 88 84 81 Pulse Rate [ Anterior Bilateral] Pulse Rate [ From Monitor] Respiratory 13 15 13 Rate Respiratory Rate [Anterior Bilateral] Blood Pressure 119/59 111/62 111/61 O2 Sat by Pulse 97 97 97 Oximetry O2 Sat by Pulse Oximetry [ Assessment] 08/22/21 08/22/21 08/22/21 09:30 09:46 10:00 Temperature Pulse Rate 79 83 78 Pulse Rate [ Anterior Bilateral] Pulse Rate [ From Monitor] Respiratory 14 13 15 Rate Respiratory Rate [Anterior Bilateral] Blood Pressure 115/63 152/82 115/61 O2 Sat by Pulse 97 98 95 Oximetry O2 Sat by Pulse Oximetry [ Assessment] 08/22/21 08/22/21 08/22/21 10:15 10:30 10:45 Temperature Pulse Rate 74 73 74 Pulse Rate [ Anterior Bilateral] Pulse Rate [ From Monitor] Respiratory 14 15 15 Rate Respiratory Rate [Anterior Bilateral] Blood Pressure 109/60 107/60 110/59 O2 Sat by Pulse 97 96 97 Oximetry O2 Sat by Pulse Oximetry [ Assessment] 08/22/21 08/22/21 11:00 11:16 Temperature Pulse Rate 86 89 Pulse Rate [ Anterior Bilateral] Pulse Rate [ From Monitor] Respiratory 12 13 Rate Respiratory Rate [Anterior Bilateral] Blood Pressure 107/60 163/96 O2 Sat by Pulse 99 98 Oximetry O2 Sat by Pulse Oximetry [ Assessment] Constitutional: no acute distress (sedated), other (eldely obese female without increased respiratory effort at rest on MVS) Eyes: non-icteric ENT: oropharynx moist, other (trach Shiley #[id number], cuffed; no bleeding) Neck: supple, no lymphadenopathy, no JVD Effort: mildly labored Ascultation: Bilateral: rhonchi Percussion: Bilateral: not dull Cardiovascular: regular rate and rhythm, other (S1,S2) Gastrointestinal: normoactive bowel sounds, soft, non-tender, non-distended, other (PEG) Integumentary: normal Extremities: no cyanosis, no edema, pulses normal, no ischemia or petechiae Neurologic: non-focal exam (moves all extremities), pupils equal and round, CN II-XII normal Psychiatric: other (sedated) CBC and BMP: 08/23/21 05:00 08/23/21 05:00 ABG, PT/INR, D-dimer: ABG ABG pH 7.401 (7.320-7.450) 08/19/21 13:45 POC ABG pCO2 39.8 mmHg (32.0-48.0) 08/19/21 13:45 ABG pCO2 46.6 mm Hg 08/17/21 21:23 POC ABG pO2 145.3 mmHg (83-108) H 08/19/21 13:45 ABG pO2 122.5 mm Hg (80.0-90.0) H 08/17/21 21:23 POC ABG HCO3 24.2 08/19/21 13:45 ABG O2 Saturation 99.0 (0-100) 08/19/21 13:45 PT/INR, D-dimer PT 14.5 Sec. (12.2-14.9) 08/12/21 21:41 INR 1.08 (0.87-1.13) 08/12/21 21:41 D-Dimer 852.47 ng/mlDDU (0-234) H 07/29/21 07:17 Abnormal lab findings: Abnormal Labs 07/27/21 07/27/21 07/27/21 22:57 22:57 22:57 WBC 20.3 H RBC Hgb Hct MCH MCHC RDW Plt Count Lymph % (Auto) Lymph # (Auto) Ralls # (Auto) Seg Neutrophils % Seg Neuts % (Manual) 89.0 H Lymphocytes % (Manual) 9.0 L Nucleated RBC % Seg Neutrophils # Seg Neutrophils # Man 18.1 H Lymphocytes # (Manual) Monocytes # (Manual) D-Dimer ABG pH POC ABG pCO2 POC ABG pO2 ABG pO2 ABG Hemoglobin ABG Oxyhemoglobin ABG Sodium ABG Potassium ABG Chloride ABG Glucose Carboxyhemoglobin Sodium Potassium 3.5 L Chloride 96.9 L Carbon Dioxide 20 L BUN 19 H Creatinine Glucose 204 H POC Glucose Lactic Acid 7.20 H* Calcium Magnesium AST 98 H ALT 90 H Total Protein Albumin Triglycerides Arterial Blood Glucose Arterial Blood Ionized Calcium Urine WBC (Auto) Urine Creatinine Crossmatch 07/28/21 07/28/21 07/28/21 01:31 07:49 10:00 WBC RBC Hgb Hct MCH MCHC RDW Plt Count Lymph % (Auto) Lymph # (Auto) Ralls # (Auto) Seg Neutrophils % Seg Neuts % (Manual) Lymphocytes % (Manual) Nucleated RBC % Seg Neutrophils # Seg Neutrophils # Man Lymphocytes # (Manual) Monocytes # (Manual) D-Dimer ABG pH POC ABG pCO2 POC ABG pO2 ABG pO2 ABG Hemoglobin ABG Oxyhemoglobin ABG Sodium ABG Potassium ABG Chloride ABG Glucose Carboxyhemoglobin Sodium Potassium Chloride Carbon Dioxide BUN Creatinine Glucose POC Glucose 194 H Lactic Acid 6.90 H* 6.70 H* Calcium Magnesium AST ALT Total Protein Albumin Triglycerides Arterial Blood Glucose Arterial Blood Ionized Calcium Urine WBC (Auto) Urine Creatinine Crossmatch 07/28/21 07/28/21 07/28/21 12:41 13:21 16:21 WBC RBC Hgb Hct MCH MCHC RDW Plt Count Lymph % (Auto) Lymph # (Auto) Ralls # (Auto) Seg Neutrophils % Seg Neuts % (Manual) Lymphocytes % (Manual) Nucleated RBC % Seg Neutrophils # Seg Neutrophils # Man Lymphocytes # (Manual) Monocytes # (Manual) D-Dimer ABG pH POC ABG pCO2 POC ABG pO2 ABG pO2 ABG Hemoglobin ABG Oxyhemoglobin ABG Sodium ABG Potassium ABG Chloride ABG Glucose Carboxyhemoglobin Sodium Potassium Chloride Carbon Dioxide BUN Creatinine Glucose POC Glucose 159 H 155 H Lactic Acid 6.10 H* Calcium Magnesium AST ALT Total Protein Albumin Triglycerides Arterial Blood Glucose Arterial Blood Ionized Calcium Urine WBC (Auto) Urine Creatinine Crossmatch 07/28/21 07/29/21 07/29/21 22:03 04:44 04:44 WBC 17.0 H RBC Hgb Hct MCH MCHC RDW Plt Count Lymph % (Auto) Lymph # (Auto) Ralls # (Auto) Seg Neutrophils % Seg Neuts % (Manual) 82.0 H Lymphocytes % (Manual) 11.0 L Nucleated RBC % Seg Neutrophils # Seg Neutrophils # Man 13.9 H Lymphocytes # (Manual) Monocytes # (Manual) 1.0 H D-Dimer ABG pH POC ABG pCO2 POC ABG pO2 ABG pO2 ABG Hemoglobin ABG Oxyhemoglobin ABG Sodium ABG Potassium ABG Chloride ABG Glucose Carboxyhemoglobin Sodium Potassium Chloride Carbon Dioxide BUN 23 H Creatinine Glucose 196 H POC Glucose 187 H Lactic Acid Calcium Magnesium AST ALT Total Protein Albumin Triglycerides Arterial Blood Glucose Arterial Blood Ionized Calcium Urine WBC (Auto) Urine Creatinine Crossmatch 07/29/21 07/29/21 07/29/21 06:56 07:17 07:17 WBC 26.1 H RBC Hgb Hct 43.3 H MCH MCHC RDW 16.0 H Plt Count Lymph % (Auto) Lymph # (Auto) Ralls # (Auto) Seg Neutrophils % Seg Neuts % (Manual) 80.0 H Lymphocytes % (Manual) Nucleated RBC % Seg Neutrophils # Seg Neutrophils # Man 20.9 H Lymphocytes # (Manual) Monocytes # (Manual) D-Dimer ABG pH POC ABG pCO2 POC ABG pO2 ABG pO2 ABG Hemoglobin ABG Oxyhemoglobin ABG Sodium ABG Potassium ABG Chloride ABG Glucose Carboxyhemoglobin Sodium Potassium Chloride Carbon Dioxide 20 L D BUN 23 H Creatinine Glucose 308 H POC Glucose 165 H Lactic Acid Calcium Magnesium AST ALT Total Protein Albumin Triglycerides Arterial Blood Glucose Arterial Blood Ionized Calcium Urine WBC (Auto) Urine Creatinine Crossmatch 07/29/21 07/29/21 07/29/21 07:17 09:16 10:30 WBC RBC Hgb Hct MCH MCHC RDW Plt Count Lymph % (Auto) Lymph # (Auto) Ralls # (Auto) Seg Neutrophils % Seg Neuts % (Manual) Lymphocytes % (Manual) Nucleated RBC % Seg Neutrophils # Seg Neutrophils # Man Lymphocytes # (Manual) Monocytes # (Manual) D-Dimer 852.47 H ABG pH 7.236 L POC ABG pCO2 56.0 H POC ABG pO2 266.4 H ABG pO2 ABG Hemoglobin ABG Oxyhemoglobin 99.1 H ABG Sodium 132.3 L ABG Potassium 4.9 H ABG Chloride ABG Glucose 202 H Carboxyhemoglobin 0.2 L Sodium Potassium Chloride Carbon Dioxide BUN Creatinine Glucose POC Glucose 271 H Lactic Acid Calcium Magnesium AST ALT Total Protein Albumin Triglycerides Arterial Blood Glucose 202 H Arterial Blood Ionized Calcium Urine WBC (Auto) Urine Creatinine Crossmatch 07/29/21 07/29/21 07/30/21 17:54 23:32 05:08 WBC RBC Hgb Hct MCH MCHC RDW Plt Count Lymph % (Auto) Lymph # (Auto) Ralls # (Auto) Seg Neutrophils % Seg Neuts % (Manual) Lymphocytes % (Manual) Nucleated RBC % Seg Neutrophils # Seg Neutrophils # Man Lymphocytes # (Manual) Monocytes # (Manual) D-Dimer ABG pH POC ABG pCO2 POC ABG pO2 ABG pO2 ABG Hemoglobin ABG Oxyhemoglobin ABG Sodium ABG Potassium ABG Chloride ABG Glucose Carboxyhemoglobin Sodium Potassium Chloride Carbon Dioxide BUN Creatinine Glucose POC Glucose 168 H 205 H 214 H Lactic Acid Calcium Magnesium AST ALT Total Protein Albumin Triglycerides Arterial Blood Glucose Arterial Blood Ionized Calcium Urine WBC (Auto) Urine Creatinine Crossmatch 07/30/21 07/30/21 07/30/21 06:01 11:32 17:34 WBC RBC Hgb Hct MCH MCHC RDW Plt Count Lymph % (Auto) Lymph # (Auto) Ralls # (Auto) Seg Neutrophils % Seg Neuts % (Manual) Lymphocytes % (Manual) Nucleated RBC % Seg Neutrophils # Seg Neutrophils # Man Lymphocytes # (Manual) Monocytes # (Manual) D-Dimer ABG pH 7.480 H POC ABG pCO2 23.6 L POC ABG pO2 280.0 H ABG pO2 ABG Hemoglobin ABG Oxyhemoglobin 99.3 H ABG Sodium 133.7 L ABG Potassium ABG Chloride ABG Glucose 232 H Carboxyhemoglobin 0 L Sodium Potassium Chloride Carbon Dioxide BUN Creatinine Glucose POC Glucose 207 H 239 H Lactic Acid Calcium Magnesium AST ALT Total Protein Albumin Triglycerides Arterial Blood Glucose 232 H Arterial Blood Ionized Calcium 4.4 L Urine WBC (Auto) Urine Creatinine Crossmatch 07/30/21 07/31/21 07/31/21 23:39 03:34 04:45 WBC 15.0 H RBC Hgb Hct MCH MCHC RDW 15.5 H Plt Count Lymph % (Auto) Lymph # (Auto) Ralls # (Auto) Seg Neutrophils % Seg Neuts % (Manual) 89.0 H Lymphocytes % (Manual) 7.0 L Nucleated RBC % Seg Neutrophils # Seg Neutrophils # Man 13.4 H Lymphocytes # (Manual) 1.1 L Monocytes # (Manual) D-Dimer ABG pH 7.481 H POC ABG pCO2 31.8 L POC ABG pO2 ABG pO2 ABG Hemoglobin ABG Oxyhemoglobin ABG Sodium 135.2 L ABG Potassium 3.3 L ABG Chloride ABG Glucose 188 H Carboxyhemoglobin 0.1 L Sodium Potassium Chloride Carbon Dioxide BUN Creatinine Glucose POC Glucose 176 H Lactic Acid Calcium Magnesium AST ALT Total Protein Albumin Triglycerides Arterial Blood Glucose 188 H Arterial Blood Ionized Calcium 4.4 L Urine WBC (Auto) Urine Creatinine Crossmatch 07/31/21 07/31/21 07/31/21 04:45 04:45 11:28 WBC RBC Hgb Hct MCH MCHC RDW Plt Count Lymph % (Auto) Lymph # (Auto) Ralls # (Auto) Seg Neutrophils % Seg Neuts % (Manual) Lymphocytes % (Manual) Nucleated RBC % Seg Neutrophils # Seg Neutrophils # Man Lymphocytes # (Manual) Monocytes # (Manual) D-Dimer ABG pH POC ABG pCO2 POC ABG pO2 ABG pO2 ABG Hemoglobin ABG Oxyhemoglobin ABG Sodium ABG Potassium ABG Chloride ABG Glucose Carboxyhemoglobin Sodium Potassium 3.4 L Chloride Carbon Dioxide BUN 61 H Creatinine 2.6 H D Glucose 176 H POC Glucose 195 H 245 H Lactic Acid Calcium Magnesium AST ALT Total Protein Albumin Triglycerides Arterial Blood Glucose Arterial Blood Ionized Calcium Urine WBC (Auto) Urine Creatinine Crossmatch 07/31/21 07/31/21 08/01/21 17:32 23:58 01:00 WBC RBC Hgb Hct MCH MCHC RDW Plt Count Lymph % (Auto) Lymph # (Auto) Ralls # (Auto) Seg Neutrophils % Seg Neuts % (Manual) Lymphocytes % (Manual) Nucleated RBC % Seg Neutrophils # Seg Neutrophils # Man Lymphocytes # (Manual) Monocytes # (Manual) D-Dimer ABG pH POC ABG pCO2 POC ABG pO2 ABG pO2 ABG Hemoglobin ABG Oxyhemoglobin ABG Sodium ABG Potassium ABG Chloride ABG Glucose 284 H Carboxyhemoglobin 0.3 L Sodium Potassium Chloride Carbon Dioxide BUN Creatinine Glucose POC Glucose 251 H 294 H Lactic Acid Calcium Magnesium AST ALT Total Protein Albumin Triglycerides Arterial Blood Glucose 284 H Arterial Blood Ionized Calcium Urine WBC (Auto) Urine Creatinine Crossmatch 08/01/21 08/01/21 08/01/21 05:50 05:50 06:11 WBC 16.2 H RBC Hgb Hct MCH MCHC RDW 15.5 H Plt Count Lymph % (Auto) Lymph # (Auto) Ralls # (Auto) Seg Neutrophils % Seg Neuts % (Manual) 93.0 H Lymphocytes % (Manual) 2.0 L Nucleated RBC % 3.0 H Seg Neutrophils # Seg Neutrophils # Man 15.1 H Lymphocytes # (Manual) 0.3 L Monocytes # (Manual) D-Dimer ABG pH POC ABG pCO2 POC ABG pO2 ABG pO2 ABG Hemoglobin ABG Oxyhemoglobin ABG Sodium ABG Potassium ABG Chloride ABG Glucose Carboxyhemoglobin Sodium Potassium Chloride Carbon Dioxide BUN 64 H Creatinine 1.9 H Glucose 277 H POC Glucose 256 H Lactic Acid Calcium Magnesium AST ALT Total Protein Albumin Triglycerides Arterial Blood Glucose Arterial Blood Ionized Calcium Urine WBC (Auto) Urine Creatinine Crossmatch 08/01/21 08/01/21 08/01/21 11:39 17:25 23:53 WBC RBC Hgb Hct MCH MCHC RDW Plt Count Lymph % (Auto) Lymph # (Auto) Ralls # (Auto) Seg Neutrophils % Seg Neuts % (Manual) Lymphocytes % (Manual) Nucleated RBC % Seg Neutrophils # Seg Neutrophils # Man Lymphocytes # (Manual) Monocytes # (Manual) D-Dimer ABG pH POC ABG pCO2 POC ABG pO2 ABG pO2 ABG Hemoglobin ABG Oxyhemoglobin ABG Sodium ABG Potassium ABG Chloride ABG Glucose Carboxyhemoglobin Sodium Potassium Chloride Carbon Dioxide BUN Creatinine Glucose POC Glucose 289 H 275 H 327 H Lactic Acid Calcium Magnesium AST ALT Total Protein Albumin Triglycerides Arterial Blood Glucose Arterial Blood Ionized Calcium Urine WBC (Auto) Urine Creatinine Crossmatch 08/01/21 08/02/21 08/02/21 Unknown 04:00 12:03 WBC RBC Hgb Hct MCH MCHC RDW Plt Count Lymph % (Auto) Lymph # (Auto) Ralls # (Auto) Seg Neutrophils % Seg Neuts % (Manual) Lymphocytes % (Manual) Nucleated RBC % Seg Neutrophils # Seg Neutrophils # Man Lymphocytes # (Manual) Monocytes # (Manual) D-Dimer ABG pH POC ABG pCO2 POC ABG pO2 ABG pO2 ABG Hemoglobin ABG Oxyhemoglobin ABG Sodium ABG Potassium ABG Chloride ABG Glucose 325 H Carboxyhemoglobin 0.4 L Sodium Potassium Chloride Carbon Dioxide BUN Creatinine Glucose POC Glucose 209 H Lactic Acid Calcium Magnesium AST ALT Total Protein Albumin Triglycerides Arterial Blood Glucose 325 H Arterial Blood Ionized Calcium Urine WBC (Auto) Urine Creatinine 125.6 H Crossmatch 08/02/21 08/02/21 08/02/21 15:30 17:03 23:17 WBC RBC Hgb Hct MCH MCHC RDW Plt Count Lymph % (Auto) Lymph # (Auto) Ralls # (Auto) Seg Neutrophils % Seg Neuts % (Manual) Lymphocytes % (Manual) Nucleated RBC % Seg Neutrophils # Seg Neutrophils # Man Lymphocytes # (Manual) Monocytes # (Manual) D-Dimer ABG pH POC ABG pCO2 POC ABG pO2 ABG pO2 ABG Hemoglobin ABG Oxyhemoglobin ABG Sodium ABG Potassium ABG Chloride ABG Glucose Carboxyhemoglobin Sodium Potassium Chloride Carbon Dioxide BUN Creatinine Glucose POC Glucose 210 H 265 H Lactic Acid Calcium Magnesium AST ALT Total Protein Albumin Triglycerides Arterial Blood Glucose Arterial Blood Ionized Calcium Urine WBC (Auto) 47.0 H Urine Creatinine Crossmatch 08/02/21 08/02/21 08/03/21 Unknown Unknown 04:17 WBC 14.1 H RBC Hgb Hct MCH MCHC RDW 16.3 H Plt Count Lymph % (Auto) 5.1 L Lymph # (Auto) 0.7 L Ralls # (Auto) 0.9 H Seg Neutrophils % 88.7 H Seg Neuts % (Manual) Lymphocytes % (Manual) Nucleated RBC % Seg Neutrophils # 12.5 H Seg Neutrophils # Man Lymphocytes # (Manual) Monocytes # (Manual) D-Dimer ABG pH POC ABG pCO2 POC ABG pO2 ABG pO2 ABG Hemoglobin ABG Oxyhemoglobin ABG Sodium ABG Potassium ABG Chloride ABG Glucose Carboxyhemoglobin Sodium Potassium Chloride Carbon Dioxide BUN 72 H 72 H Creatinine 1.8 H 1.6 H Glucose 307 H 263 H POC Glucose Lactic Acid Calcium Magnesium AST ALT Total Protein Albumin Triglycerides Arterial Blood Glucose Arterial Blood Ionized Calcium Urine WBC (Auto) Urine Creatinine Crossmatch 08/03/21 08/03/21 08/03/21 04:17 05:30 08:30 WBC 13.9 H RBC Hgb Hct MCH MCHC RDW 16.0 H Plt Count Lymph % (Auto) Lymph # (Auto) Ralls # (Auto) Seg Neutrophils % Seg Neuts % (Manual) Lymphocytes % (Manual) Nucleated RBC % Seg Neutrophils # Seg Neutrophils # Man Lymphocytes # (Manual) Monocytes # (Manual) D-Dimer ABG pH POC ABG pCO2 POC ABG pO2 ABG pO2 ABG Hemoglobin ABG Oxyhemoglobin ABG Sodium ABG Potassium ABG Chloride ABG Glucose Carboxyhemoglobin Sodium Potassium Chloride Carbon Dioxide BUN Creatinine Glucose POC Glucose 280 H Lactic Acid Calcium Magnesium 3.00 H AST ALT Total Protein Albumin Triglycerides Arterial Blood Glucose Arterial Blood Ionized Calcium Urine WBC (Auto) Urine Creatinine Crossmatch 08/03/21 08/03/21 08/03/21 12:14 13:39 15:11 WBC RBC Hgb Hct MCH MCHC RDW Plt Count Lymph % (Auto) Lymph # (Auto) Ralls # (Auto) Seg Neutrophils % Seg Neuts % (Manual) Lymphocytes % (Manual) Nucleated RBC % Seg Neutrophils # Seg Neutrophils # Man Lymphocytes # (Manual) Monocytes # (Manual) D-Dimer ABG pH POC ABG pCO2 POC ABG pO2 ABG pO2 ABG Hemoglobin ABG Oxyhemoglobin ABG Sodium ABG Potassium ABG Chloride ABG Glucose 306 H Carboxyhemoglobin 0.3 L Sodium Potassium Chloride Carbon Dioxide BUN Creatinine Glucose POC Glucose 287 H Lactic Acid 2.10 H* Calcium Magnesium AST ALT Total Protein Albumin Triglycerides Arterial Blood Glucose 306 H Arterial Blood Ionized Calcium Urine WBC (Auto) Urine Creatinine Crossmatch 08/03/21 08/03/21 08/04/21 16:52 23:08 04:00 WBC RBC Hgb Hct MCH MCHC RDW Plt Count Lymph % (Auto) Lymph # (Auto) Ralls # (Auto) Seg Neutrophils % Seg Neuts % (Manual) Lymphocytes % (Manual) Nucleated RBC % Seg Neutrophils # Seg Neutrophils # Man Lymphocytes # (Manual) Monocytes # (Manual) D-Dimer ABG pH POC ABG pCO2 54.3 H POC ABG pO2 82.2 L ABG pO2 ABG Hemoglobin ABG Oxyhemoglobin ABG Sodium 145.1 H ABG Potassium 5.0 H ABG Chloride ABG Glucose 316 H Carboxyhemoglobin 0.3 L Sodium Potassium Chloride Carbon Dioxide BUN Creatinine Glucose POC Glucose 282 H 289 H Lactic Acid Calcium Magnesium AST ALT Total Protein Albumin Triglycerides Arterial Blood Glucose 316 H Arterial Blood Ionized Calcium Urine WBC (Auto) Urine Creatinine Crossmatch 08/04/21 08/04/21 08/04/21 04:38 04:38 05:19 WBC 17.7 H RBC Hgb Hct MCH MCHC RDW 16.5 H Plt Count Lymph % (Auto) Lymph # (Auto) Ralls # (Auto) Seg Neutrophils % Seg Neuts % (Manual) Lymphocytes % (Manual) Nucleated RBC % Seg Neutrophils # Seg Neutrophils # Man Lymphocytes # (Manual) Monocytes # (Manual) D-Dimer ABG pH POC ABG pCO2 POC ABG pO2 ABG pO2 ABG Hemoglobin ABG Oxyhemoglobin ABG Sodium ABG Potassium ABG Chloride ABG Glucose Carboxyhemoglobin Sodium Potassium Chloride 108.3 H Carbon Dioxide BUN 76 H Creatinine 1.4 H Glucose 310 H POC Glucose 268 H Lactic Acid Calcium Magnesium 2.70 H AST ALT Total Protein Albumin Triglycerides Arterial Blood Glucose Arterial Blood Ionized Calcium Urine WBC (Auto) Urine Creatinine Crossmatch 08/04/21 08/04/21 08/04/21 11:48 16:41 23:49 WBC RBC Hgb Hct MCH MCHC RDW Plt Count Lymph % (Auto) Lymph # (Auto) Ralls # (Auto) Seg Neutrophils % Seg Neuts % (Manual) Lymphocytes % (Manual) Nucleated RBC % Seg Neutrophils # Seg Neutrophils # Man Lymphocytes # (Manual) Monocytes # (Manual) D-Dimer ABG pH POC ABG pCO2 POC ABG pO2 ABG pO2 ABG Hemoglobin ABG Oxyhemoglobin ABG Sodium ABG Potassium ABG Chloride ABG Glucose Carboxyhemoglobin Sodium Potassium Chloride Carbon Dioxide BUN Creatinine Glucose POC Glucose 197 H 208 H 209 H Lactic Acid Calcium Magnesium AST ALT Total Protein Albumin Triglycerides Arterial Blood Glucose Arterial Blood Ionized Calcium Urine WBC (Auto) Urine Creatinine Crossmatch 08/05/21 08/05/21 08/05/21 04:00 04:50 04:50 WBC 19.0 H RBC Hgb Hct MCH MCHC RDW 17.0 H Plt Count Lymph % (Auto) Lymph # (Auto) Ralls # (Auto) Seg Neutrophils % Seg Neuts % (Manual) 75.0 H Lymphocytes % (Manual) 2.0 L Nucleated RBC % Seg Neutrophils # Seg Neutrophils # Man 14.3 H Lymphocytes # (Manual) 0.4 L Monocytes # (Manual) 1.0 H D-Dimer ABG pH 7.314 L POC ABG pCO2 48.9 H POC ABG pO2 ABG pO2 ABG Hemoglobin ABG Oxyhemoglobin ABG Sodium ABG Potassium 5.0 H ABG Chloride 109.0 H ABG Glucose 234 H Carboxyhemoglobin 0.4 L Sodium Potassium 5.2 H Chloride 110.0 H Carbon Dioxide BUN 90 H Creatinine 1.8 H Glucose 235 H POC Glucose Lactic Acid Calcium Magnesium 2.60 H AST ALT Total Protein Albumin Triglycerides Arterial Blood Glucose 234 H Arterial Blood Ionized Calcium Urine WBC (Auto) Urine Creatinine Crossmatch 08/05/21 08/05/21 08/05/21 06:05 12:02 17:08 WBC RBC Hgb Hct MCH MCHC RDW Plt Count Lymph % (Auto) Lymph # (Auto) Ralls # (Auto) Seg Neutrophils % Seg Neuts % (Manual) Lymphocytes % (Manual) Nucleated RBC % Seg Neutrophils # Seg Neutrophils # Man Lymphocytes # (Manual) Monocytes # (Manual) D-Dimer ABG pH POC ABG pCO2 POC ABG pO2 ABG pO2 ABG Hemoglobin ABG Oxyhemoglobin ABG Sodium ABG Potassium ABG Chloride ABG Glucose Carboxyhemoglobin Sodium Potassium Chloride Carbon Dioxide BUN Creatinine Glucose POC Glucose 225 H 193 H 263 H Lactic Acid Calcium Magnesium AST ALT Total Protein Albumin Triglycerides Arterial Blood Glucose Arterial Blood Ionized Calcium Urine WBC (Auto) Urine Creatinine Crossmatch 08/05/21 08/06/21 08/06/21 23:34 05:00 05:00 WBC 16.8 H RBC 3.64 L Hgb Hct MCH MCHC RDW 16.6 H Plt Count Lymph % (Auto) Lymph # (Auto) Ralls # (Auto) Seg Neutrophils % Seg Neuts % (Manual) Lymphocytes % (Manual) Nucleated RBC % Seg Neutrophils # Seg Neutrophils # Man Lymphocytes # (Manual) Monocytes # (Manual) D-Dimer ABG pH POC ABG pCO2 POC ABG pO2 ABG pO2 ABG Hemoglobin ABG Oxyhemoglobin ABG Sodium ABG Potassium ABG Chloride ABG Glucose Carboxyhemoglobin Sodium Potassium Chloride 109.3 H Carbon Dioxide BUN 89 H Creatinine 1.6 H Glucose 197 H POC Glucose 224 H Lactic Acid Calcium 8.2 L Magnesium AST ALT Total Protein Albumin Triglycerides Arterial Blood Glucose Arterial Blood Ionized Calcium Urine WBC (Auto) Urine Creatinine Crossmatch 08/06/21 08/06/21 08/06/21 05:26 11:38 16:30 WBC RBC Hgb Hct MCH MCHC RDW Plt Count Lymph % (Auto) Lymph # (Auto) Ralls # (Auto) Seg Neutrophils % Seg Neuts % (Manual) Lymphocytes % (Manual) Nucleated RBC % Seg Neutrophils # Seg Neutrophils # Man Lymphocytes # (Manual) Monocytes # (Manual) D-Dimer ABG pH POC ABG pCO2 POC ABG pO2 ABG pO2 ABG Hemoglobin ABG Oxyhemoglobin ABG Sodium ABG Potassium ABG Chloride ABG Glucose Carboxyhemoglobin Sodium Potassium Chloride Carbon Dioxide BUN Creatinine Glucose POC Glucose 168 H 160 H 135 H Lactic Acid Calcium Magnesium AST ALT Total Protein Albumin Triglycerides Arterial Blood Glucose Arterial Blood Ionized Calcium Urine WBC (Auto) Urine Creatinine Crossmatch 08/06/21 08/07/21 08/07/21 23:08 04:00 04:00 WBC 13.6 H RBC 3.30 L Hgb 9.5 L Hct 29.2 L MCH MCHC RDW 16.7 H Plt Count Lymph % (Auto) Lymph # (Auto) Ralls # (Auto) Seg Neutrophils % Seg Neuts % (Manual) Lymphocytes % (Manual) Nucleated RBC % Seg Neutrophils # Seg Neutrophils # Man Lymphocytes # (Manual) Monocytes # (Manual) D-Dimer ABG pH POC ABG pCO2 POC ABG pO2 ABG pO2 ABG Hemoglobin ABG Oxyhemoglobin ABG Sodium ABG Potassium ABG Chloride ABG Glucose Carboxyhemoglobin Sodium 146 H Potassium Chloride 111.4 H Carbon Dioxide BUN 78 H Creatinine 1.5 H Glucose 143 H POC Glucose 125 H Lactic Acid Calcium 8.2 L Magnesium AST ALT Total Protein Albumin Triglycerides Arterial Blood Glucose Arterial Blood Ionized Calcium Urine WBC (Auto) Urine Creatinine Crossmatch 08/07/21 08/07/21 08/07/21 04:00 05:16 12:12 WBC RBC Hgb Hct MCH MCHC RDW Plt Count Lymph % (Auto) Lymph # (Auto) Ralls # (Auto) Seg Neutrophils % Seg Neuts % (Manual) Lymphocytes % (Manual) Nucleated RBC % Seg Neutrophils # Seg Neutrophils # Man Lymphocytes # (Manual) Monocytes # (Manual) D-Dimer ABG pH POC ABG pCO2 POC ABG pO2 80.1 L ABG pO2 ABG Hemoglobin 9.8 L ABG Oxyhemoglobin ABG Sodium ABG Potassium ABG Chloride 111.0 H ABG Glucose 157 H Carboxyhemoglobin 0.3 L Sodium Potassium Chloride Carbon Dioxide BUN Creatinine Glucose POC Glucose 144 H 125 H Lactic Acid Calcium Magnesium AST ALT Total Protein Albumin Triglycerides Arterial Blood Glucose 157 H Arterial Blood Ionized Calcium 4.5 L Urine WBC (Auto) Urine Creatinine Crossmatch 08/07/21 08/08/21 08/08/21 23:20 04:47 06:00 WBC 13.8 H RBC 3.19 L Hgb 9.3 L Hct 28.4 L MCH MCHC RDW 16.4 H Plt Count Lymph % (Auto) Lymph # (Auto) Ralls # (Auto) Seg Neutrophils % Seg Neuts % (Manual) Lymphocytes % (Manual) Nucleated RBC % Seg Neutrophils # Seg Neutrophils # Man Lymphocytes # (Manual) Monocytes # (Manual) D-Dimer ABG pH POC ABG pCO2 POC ABG pO2 ABG pO2 ABG Hemoglobin ABG Oxyhemoglobin ABG Sodium ABG Potassium ABG Chloride ABG Glucose Carboxyhemoglobin Sodium Potassium Chloride Carbon Dioxide BUN Creatinine Glucose POC Glucose 118 H 130 H Lactic Acid Calcium Magnesium AST ALT Total Protein Albumin Triglycerides Arterial Blood Glucose Arterial Blood Ionized Calcium Urine WBC (Auto) Urine Creatinine Crossmatch 08/08/21 08/08/21 08/08/21 06:00 11:33 17:54 WBC RBC Hgb Hct MCH MCHC RDW Plt Count Lymph % (Auto) Lymph # (Auto) Ralls # (Auto) Seg Neutrophils % Seg Neuts % (Manual) Lymphocytes % (Manual) Nucleated RBC % Seg Neutrophils # Seg Neutrophils # Man Lymphocytes # (Manual) Monocytes # (Manual) D-Dimer ABG pH POC ABG pCO2 POC ABG pO2 ABG pO2 ABG Hemoglobin ABG Oxyhemoglobin ABG Sodium ABG Potassium ABG Chloride ABG Glucose Carboxyhemoglobin Sodium 147 H Potassium Chloride 112.4 H Carbon Dioxide BUN 71 H Creatinine 1.4 H Glucose 124 H POC Glucose 126 H 124 H Lactic Acid Calcium Magnesium AST ALT Total Protein Albumin Triglycerides Arterial Blood Glucose Arterial Blood Ionized Calcium Urine WBC (Auto) Urine Creatinine Crossmatch 08/08/21 08/09/21 08/09/21 23:41 06:06 10:00 WBC RBC Hgb Hct MCH MCHC RDW Plt Count Lymph % (Auto) Lymph # (Auto) Ralls # (Auto) Seg Neutrophils % Seg Neuts % (Manual) Lymphocytes % (Manual) Nucleated RBC % Seg Neutrophils # Seg Neutrophils # Man Lymphocytes # (Manual) Monocytes # (Manual) D-Dimer ABG pH POC ABG pCO2 POC ABG pO2 ABG pO2 ABG Hemoglobin ABG Oxyhemoglobin ABG Sodium ABG Potassium ABG Chloride ABG Glucose Carboxyhemoglobin Sodium 146 H Potassium Chloride 111.3 H Carbon Dioxide BUN 72 H Creatinine 1.5 H Glucose 119 H POC Glucose 119 H 127 H Lactic Acid Calcium Magnesium AST ALT 69 H Total Protein 5.2 L Albumin 2.6 L Triglycerides Arterial Blood Glucose Arterial Blood Ionized Calcium Urine WBC (Auto) Urine Creatinine Crossmatch 08/09/21 08/09/21 08/09/21 10:00 11:34 16:50 WBC 13.0 H RBC 2.88 L Hgb 8.5 L Hct 25.8 L MCH MCHC RDW 16.5 H Plt Count Lymph % (Auto) Lymph # (Auto) Ralls # (Auto) Seg Neutrophils % Seg Neuts % (Manual) Lymphocytes % (Manual) Nucleated RBC % Seg Neutrophils # Seg Neutrophils # Man Lymphocytes # (Manual) Monocytes # (Manual) D-Dimer ABG pH POC ABG pCO2 POC ABG pO2 ABG pO2 ABG Hemoglobin ABG Oxyhemoglobin ABG Sodium ABG Potassium ABG Chloride ABG Glucose Carboxyhemoglobin Sodium Potassium Chloride Carbon Dioxide BUN Creatinine Glucose POC Glucose 114 H 117 H Lactic Acid Calcium Magnesium AST ALT Total Protein Albumin Triglycerides Arterial Blood Glucose Arterial Blood Ionized Calcium Urine WBC (Auto) Urine Creatinine Crossmatch 08/10/21 08/10/21 08/10/21 00:12 05:20 05:20 WBC 13.2 H RBC 2.92 L Hgb 8.4 L Hct 25.9 L MCH MCHC RDW 16.7 H Plt Count Lymph % (Auto) Lymph # (Auto) Ralls # (Auto) Seg Neutrophils % Seg Neuts % (Manual) Lymphocytes % (Manual) Nucleated RBC % Seg Neutrophils # Seg Neutrophils # Man Lymphocytes # (Manual) Monocytes # (Manual) D-Dimer ABG pH POC ABG pCO2 POC ABG pO2 ABG pO2 ABG Hemoglobin ABG Oxyhemoglobin ABG Sodium ABG Potassium ABG Chloride ABG Glucose Carboxyhemoglobin Sodium 147 H Potassium Chloride 111.8 H Carbon Dioxide BUN 68 H Creatinine 1.4 H Glucose POC Glucose 114 H Lactic Acid Calcium Magnesium AST ALT Total Protein Albumin Triglycerides Arterial Blood Glucose Arterial Blood Ionized Calcium Urine WBC (Auto) Urine Creatinine Crossmatch 08/10/21 08/10/21 08/11/21 17:52 18:23 02:51 WBC RBC Hgb Hct MCH MCHC RDW Plt Count Lymph % (Auto) Lymph # (Auto) Ralls # (Auto) Seg Neutrophils % Seg Neuts % (Manual) Lymphocytes % (Manual) Nucleated RBC % Seg Neutrophils # Seg Neutrophils # Man Lymphocytes # (Manual) Monocytes # (Manual) D-Dimer ABG pH POC ABG pCO2 POC ABG pO2 ABG pO2 ABG Hemoglobin 8.7 L ABG Oxyhemoglobin ABG Sodium ABG Potassium ABG Chloride 111.0 H ABG Glucose Carboxyhemoglobin 0.2 L Sodium Potassium Chloride Carbon Dioxide BUN Creatinine Glucose POC Glucose 55 L 133 H Lactic Acid Calcium Magnesium AST ALT Total Protein Albumin Triglycerides Arterial Blood Glucose Arterial Blood Ionized Calcium 4.5 L Urine WBC (Auto) Urine Creatinine Crossmatch 08/11/21 08/11/21 08/11/21 04:30 11:36 17:11 WBC RBC Hgb Hct MCH MCHC RDW Plt Count Lymph % (Auto) Lymph # (Auto) Ralls # (Auto) Seg Neutrophils % Seg Neuts % (Manual) Lymphocytes % (Manual) Nucleated RBC % Seg Neutrophils # Seg Neutrophils # Man Lymphocytes # (Manual) Monocytes # (Manual) D-Dimer ABG pH POC ABG pCO2 POC ABG pO2 ABG pO2 ABG Hemoglobin ABG Oxyhemoglobin ABG Sodium ABG Potassium ABG Chloride ABG Glucose Carboxyhemoglobin Sodium Potassium Chloride 110.0 H Carbon Dioxide BUN 59 H Creatinine Glucose POC Glucose 116 H 115 H Lactic Acid Calcium 8.3 L Magnesium AST ALT 64 H Total Protein 5.5 L Albumin 2.6 L Triglycerides Arterial Blood Glucose Arterial Blood Ionized Calcium Urine WBC (Auto) Urine Creatinine Crossmatch 08/11/21 08/11/21 08/12/21 23:18 Unknown 05:05 WBC 12.2 H RBC 2.81 L Hgb 8.4 L Hct 25.4 L MCH MCHC RDW 17.0 H Plt Count Lymph % (Auto) Lymph # (Auto) Ralls # (Auto) Seg Neutrophils % Seg Neuts % (Manual) Lymphocytes % (Manual) Nucleated RBC % Seg Neutrophils # Seg Neutrophils # Man Lymphocytes # (Manual) Monocytes # (Manual) D-Dimer ABG pH POC ABG pCO2 POC ABG pO2 ABG pO2 ABG Hemoglobin ABG Oxyhemoglobin ABG Sodium ABG Potassium ABG Chloride ABG Glucose Carboxyhemoglobin Sodium Potassium Chloride Carbon Dioxide BUN Creatinine Glucose POC Glucose 126 H 131 H Lactic Acid Calcium Magnesium AST ALT Total Protein Albumin Triglycerides Arterial Blood Glucose Arterial Blood Ionized Calcium Urine WBC (Auto) Urine Creatinine Crossmatch 08/12/21 08/12/21 08/12/21 12:14 17:19 21:41 WBC 16.5 H RBC 3.04 L Hgb 8.9 L Hct 27.3 L MCH MCHC RDW 17.0 H Plt Count Lymph % (Auto) 9.0 L Lymph # (Auto) Ralls # (Auto) 1.1 H Seg Neutrophils % 83.7 H Seg Neuts % (Manual) Lymphocytes % (Manual) Nucleated RBC % Seg Neutrophils # 13.8 H Seg Neutrophils # Man Lymphocytes # (Manual) Monocytes # (Manual) D-Dimer ABG pH POC ABG pCO2 POC ABG pO2 ABG pO2 ABG Hemoglobin ABG Oxyhemoglobin ABG Sodium ABG Potassium ABG Chloride ABG Glucose Carboxyhemoglobin Sodium Potassium Chloride Carbon Dioxide BUN Creatinine Glucose POC Glucose 123 H 129 H Lactic Acid Calcium Magnesium AST ALT Total Protein Albumin Triglycerides Arterial Blood Glucose Arterial Blood Ionized Calcium Urine WBC (Auto) Urine Creatinine Crossmatch 08/12/21 08/12/21 08/13/21 21:41 23:26 05:24 WBC RBC Hgb Hct MCH MCHC RDW Plt Count Lymph % (Auto) Lymph # (Auto) Ralls # (Auto) Seg Neutrophils % Seg Neuts % (Manual) Lymphocytes % (Manual) Nucleated RBC % Seg Neutrophils # Seg Neutrophils # Man Lymphocytes # (Manual) Monocytes # (Manual) D-Dimer ABG pH POC ABG pCO2 POC ABG pO2 ABG pO2 ABG Hemoglobin ABG Oxyhemoglobin ABG Sodium ABG Potassium ABG Chloride ABG Glucose Carboxyhemoglobin Sodium 147 H Potassium Chloride 110.7 H Carbon Dioxide BUN 48 H Creatinine Glucose 147 H POC Glucose 133 H 109 H Lactic Acid Calcium Magnesium AST ALT Total Protein Albumin Triglycerides Arterial Blood Glucose Arterial Blood Ionized Calcium Urine WBC (Auto) Urine Creatinine Crossmatch 08/13/21 08/13/21 08/13/21 05:43 11:36 18:00 WBC RBC Hgb Hct MCH MCHC RDW Plt Count Lymph % (Auto) Lymph # (Auto) Ralls # (Auto) Seg Neutrophils % Seg Neuts % (Manual) Lymphocytes % (Manual) Nucleated RBC % Seg Neutrophils # Seg Neutrophils # Man Lymphocytes # (Manual) Monocytes # (Manual) D-Dimer ABG pH POC ABG pCO2 POC ABG pO2 76.8 L ABG pO2 ABG Hemoglobin 8.6 L ABG Oxyhemoglobin ABG Sodium ABG Potassium ABG Chloride 112.0 H ABG Glucose 126 H Carboxyhemoglobin 0.4 L Sodium Potassium Chloride Carbon Dioxide BUN Creatinine Glucose POC Glucose 127 H 128 H Lactic Acid Calcium Magnesium AST ALT Total Protein Albumin Triglycerides Arterial Blood Glucose 126 H Arterial Blood Ionized Calcium 4.4 L Urine WBC (Auto) Urine Creatinine Crossmatch 08/13/21 08/14/21 08/14/21 23:27 04:00 04:00 WBC RBC 2.65 L Hgb 8.1 L Hct 24.0 L MCH MCHC RDW 17.1 H Plt Count Lymph % (Auto) Lymph # (Auto) Ralls # (Auto) Seg Neutrophils % Seg Neuts % (Manual) Lymphocytes % (Manual) Nucleated RBC % Seg Neutrophils # Seg Neutrophils # Man Lymphocytes # (Manual) Monocytes # (Manual) D-Dimer ABG pH POC ABG pCO2 POC ABG pO2 ABG pO2 ABG Hemoglobin ABG Oxyhemoglobin ABG Sodium ABG Potassium ABG Chloride ABG Glucose Carboxyhemoglobin Sodium 146 H Potassium Chloride 108.7 H Carbon Dioxide 31 H BUN 38 H Creatinine Glucose 115 H POC Glucose 125 H Lactic Acid Calcium Magnesium AST ALT Total Protein 5.8 L Albumin 2.6 L Triglycerides Arterial Blood Glucose Arterial Blood Ionized Calcium Urine WBC (Auto) Urine Creatinine Crossmatch 08/14/21 08/14/21 08/15/21 05:24 11:34 05:16 WBC RBC Hgb Hct MCH MCHC RDW Plt Count Lymph % (Auto) Lymph # (Auto) Ralls # (Auto) Seg Neutrophils % Seg Neuts % (Manual) Lymphocytes % (Manual) Nucleated RBC % Seg Neutrophils # Seg Neutrophils # Man Lymphocytes # (Manual) Monocytes # (Manual) D-Dimer ABG pH POC ABG pCO2 POC ABG pO2 ABG pO2 ABG Hemoglobin ABG Oxyhemoglobin ABG Sodium ABG Potassium ABG Chloride ABG Glucose Carboxyhemoglobin Sodium Potassium Chloride Carbon Dioxide BUN Creatinine Glucose POC Glucose 126 H 126 H 110 H Lactic Acid Calcium Magnesium AST ALT Total Protein Albumin Triglycerides Arterial Blood Glucose Arterial Blood Ionized Calcium Urine WBC (Auto) Urine Creatinine Crossmatch 08/15/21 08/15/21 08/15/21 11:37 17:48 Unknown WBC RBC 2.53 L Hgb 7.7 L Hct 23.0 L MCH MCHC RDW 17.0 H Plt Count Lymph % (Auto) 12.5 L Lymph # (Auto) 1.0 L Ralls # (Auto) Seg Neutrophils % 80.4 H Seg Neuts % (Manual) Lymphocytes % (Manual) Nucleated RBC % Seg Neutrophils # Seg Neutrophils # Man Lymphocytes # (Manual) Monocytes # (Manual) D-Dimer ABG pH POC ABG pCO2 POC ABG pO2 ABG pO2 ABG Hemoglobin ABG Oxyhemoglobin ABG Sodium ABG Potassium ABG Chloride ABG Glucose Carboxyhemoglobin Sodium Potassium Chloride Carbon Dioxide BUN Creatinine Glucose POC Glucose 106 H 110 H Lactic Acid Calcium Magnesium AST ALT Total Protein Albumin Triglycerides Arterial Blood Glucose Arterial Blood Ionized Calcium Urine WBC (Auto) Urine Creatinine Crossmatch 08/15/21 08/16/21 08/16/21 Unknown 05:40 12:00 WBC RBC Hgb Hct MCH MCHC RDW Plt Count Lymph % (Auto) Lymph # (Auto) Ralls # (Auto) Seg Neutrophils % Seg Neuts % (Manual) Lymphocytes % (Manual) Nucleated RBC % Seg Neutrophils # Seg Neutrophils # Man Lymphocytes # (Manual) Monocytes # (Manual) D-Dimer ABG pH POC ABG pCO2 POC ABG pO2 ABG pO2 ABG Hemoglobin ABG Oxyhemoglobin ABG Sodium ABG Potassium ABG Chloride ABG Glucose Carboxyhemoglobin Sodium Potassium Chloride 107.2 H Carbon Dioxide BUN 36 H Creatinine Glucose 109 H POC Glucose 111 H 114 H Lactic Acid Calcium Magnesium AST ALT 63 H Total Protein 5.5 L Albumin 2.4 L Triglycerides Arterial Blood Glucose Arterial Blood Ionized Calcium Urine WBC (Auto) Urine Creatinine Crossmatch 08/16/21 08/16/21 08/16/21 12:36 12:36 17:08 WBC RBC 2.54 L Hgb 7.3 L Hct 22.8 L MCH MCHC RDW 17.1 H Plt Count Lymph % (Auto) Lymph # (Auto) Ralls # (Auto) Seg Neutrophils % Seg Neuts % (Manual) Lymphocytes % (Manual) Nucleated RBC % Seg Neutrophils # Seg Neutrophils # Man Lymphocytes # (Manual) Monocytes # (Manual) D-Dimer ABG pH POC ABG pCO2 POC ABG pO2 ABG pO2 ABG Hemoglobin ABG Oxyhemoglobin ABG Sodium ABG Potassium ABG Chloride ABG Glucose Carboxyhemoglobin Sodium Potassium Chloride Carbon Dioxide BUN 39 H Creatinine Glucose 123 H POC Glucose 112 H Lactic Acid Calcium Magnesium AST ALT Total Protein Albumin Triglycerides Arterial Blood Glucose Arterial Blood Ionized Calcium Urine WBC (Auto) Urine Creatinine Crossmatch 08/17/21 08/17/21 08/17/21 05:26 07:27 11:19 WBC RBC Hgb Hct MCH MCHC RDW Plt Count Lymph % (Auto) Lymph # (Auto) Ralls # (Auto) Seg Neutrophils % Seg Neuts % (Manual) Lymphocytes % (Manual) Nucleated RBC % Seg Neutrophils # Seg Neutrophils # Man Lymphocytes # (Manual) Monocytes # (Manual) D-Dimer ABG pH 7.292 L POC ABG pCO2 52.2 H POC ABG pO2 80.8 L ABG pO2 ABG Hemoglobin 9.2 L ABG Oxyhemoglobin 93.8 L ABG Sodium 135.3 L ABG Potassium ABG Chloride ABG Glucose 135 H Carboxyhemoglobin 0.2 L Sodium Potassium Chloride Carbon Dioxide BUN Creatinine Glucose POC Glucose 121 H 137 H Lactic Acid Calcium Magnesium AST ALT Total Protein Albumin Triglycerides Arterial Blood Glucose 135 H Arterial Blood Ionized Calcium Urine WBC (Auto) Urine Creatinine Crossmatch 08/17/21 08/17/21 08/17/21 17:20 21:23 Unknown WBC RBC 2.49 L Hgb 7.5 L Hct 22.2 L MCH MCHC RDW 16.5 H Plt Count Lymph % (Auto) Lymph # (Auto) Ralls # (Auto) Seg Neutrophils % Seg Neuts % (Manual) Lymphocytes % (Manual) Nucleated RBC % Seg Neutrophils # Seg Neutrophils # Man Lymphocytes # (Manual) Monocytes # (Manual) D-Dimer ABG pH 7.337 L POC ABG pCO2 POC ABG pO2 ABG pO2 122.5 H ABG Hemoglobin 7.6 L ABG Oxyhemoglobin ABG Sodium ABG Potassium ABG Chloride ABG Glucose Carboxyhemoglobin Sodium Potassium Chloride Carbon Dioxide BUN Creatinine Glucose POC Glucose 106 H Lactic Acid Calcium Magnesium AST ALT Total Protein Albumin Triglycerides Arterial Blood Glucose Arterial Blood Ionized Calcium Urine WBC (Auto) Urine Creatinine Crossmatch 08/17/21 08/18/21 08/18/21 Unknown 00:04 05:10 WBC RBC 2.65 L Hgb 7.9 L Hct 23.7 L MCH MCHC RDW 17.0 H Plt Count Lymph % (Auto) Lymph # (Auto) Ralls # (Auto) Seg Neutrophils % Seg Neuts % (Manual) Lymphocytes % (Manual) Nucleated RBC % Seg Neutrophils # Seg Neutrophils # Man Lymphocytes # (Manual) Monocytes # (Manual) D-Dimer ABG pH POC ABG pCO2 POC ABG pO2 ABG pO2 ABG Hemoglobin ABG Oxyhemoglobin ABG Sodium ABG Potassium ABG Chloride ABG Glucose Carboxyhemoglobin Sodium Potassium Chloride Carbon Dioxide BUN 37 H Creatinine Glucose 117 H POC Glucose 107 H Lactic Acid Calcium Magnesium AST ALT Total Protein Albumin Triglycerides Arterial Blood Glucose Arterial Blood Ionized Calcium Urine WBC (Auto) Urine Creatinine Crossmatch 08/18/21 08/18/21 08/18/21 05:10 05:10 05:40 WBC RBC Hgb Hct MCH MCHC RDW Plt Count Lymph % (Auto) Lymph # (Auto) Ralls # (Auto) Seg Neutrophils % Seg Neuts % (Manual) Lymphocytes % (Manual) Nucleated RBC % Seg Neutrophils # Seg Neutrophils # Man Lymphocytes # (Manual) Monocytes # (Manual) D-Dimer ABG pH POC ABG pCO2 POC ABG pO2 ABG pO2 ABG Hemoglobin ABG Oxyhemoglobin ABG Sodium ABG Potassium ABG Chloride ABG Glucose Carboxyhemoglobin Sodium 136 L Potassium Chloride Carbon Dioxide BUN 41 H Creatinine Glucose 122 H POC Glucose 122 H Lactic Acid Calcium Magnesium AST ALT Total Protein Albumin Triglycerides Arterial Blood Glucose Arterial Blood Ionized Calcium Urine WBC (Auto) Urine Creatinine Crossmatch See Detail 08/18/21 08/18/21 08/18/21 11:47 18:21 23:53 WBC RBC Hgb Hct MCH MCHC RDW Plt Count Lymph % (Auto) Lymph # (Auto) Ralls # (Auto) Seg Neutrophils % Seg Neuts % (Manual) Lymphocytes % (Manual) Nucleated RBC % Seg Neutrophils # Seg Neutrophils # Man Lymphocytes # (Manual) Monocytes # (Manual) D-Dimer ABG pH POC ABG pCO2 POC ABG pO2 ABG pO2 ABG Hemoglobin ABG Oxyhemoglobin ABG Sodium ABG Potassium ABG Chloride ABG Glucose Carboxyhemoglobin Sodium Potassium Chloride Carbon Dioxide BUN Creatinine Glucose POC Glucose 126 H 110 H 114 H Lactic Acid Calcium Magnesium AST ALT Total Protein Albumin Triglycerides Arterial Blood Glucose Arterial Blood Ionized Calcium Urine WBC (Auto) Urine Creatinine Crossmatch 08/19/21 08/19/21 08/19/21 03:20 03:20 05:21 WBC RBC 2.74 L Hgb 8.5 L Hct 24.8 L MCH MCHC RDW 16.8 H Plt Count Lymph % (Auto) Lymph # (Auto) Ralls # (Auto) Seg Neutrophils % Seg Neuts % (Manual) Lymphocytes % (Manual) Nucleated RBC % Seg Neutrophils # Seg Neutrophils # Man Lymphocytes # (Manual) Monocytes # (Manual) D-Dimer ABG pH POC ABG pCO2 POC ABG pO2 ABG pO2 ABG Hemoglobin ABG Oxyhemoglobin ABG Sodium ABG Potassium ABG Chloride ABG Glucose Carboxyhemoglobin Sodium 133 L Potassium Chloride Carbon Dioxide BUN 40 H Creatinine Glucose 110 H POC Glucose 107 H Lactic Acid Calcium Magnesium AST ALT Total Protein Albumin Triglycerides Arterial Blood Glucose Arterial Blood Ionized Calcium Urine WBC (Auto) Urine Creatinine Crossmatch 08/19/21 08/19/21 08/19/21 11:41 13:45 17:23 WBC RBC Hgb Hct MCH MCHC RDW Plt Count Lymph % (Auto) Lymph # (Auto) Ralls # (Auto) Seg Neutrophils % Seg Neuts % (Manual) Lymphocytes % (Manual) Nucleated RBC % Seg Neutrophils # Seg Neutrophils # Man Lymphocytes # (Manual) Monocytes # (Manual) D-Dimer ABG pH POC ABG pCO2 POC ABG pO2 145.3 H ABG pO2 ABG Hemoglobin 10.0 L ABG Oxyhemoglobin 98.4 H ABG Sodium 134.0 L ABG Potassium ABG Chloride ABG Glucose 141 H Carboxyhemoglobin 0.3 L Sodium Potassium Chloride Carbon Dioxide BUN Creatinine Glucose POC Glucose 124 H 133 H Lactic Acid Calcium Magnesium AST ALT Total Protein Albumin Triglycerides Arterial Blood Glucose 141 H Arterial Blood Ionized Calcium Urine WBC (Auto) Urine Creatinine Crossmatch 08/19/21 08/20/21 08/20/21 23:32 06:00 06:00 WBC RBC 2.53 L Hgb 8.3 L Hct 22.6 L MCH 33 H MCHC 37 H RDW 17.0 H Plt Count Lymph % (Auto) Lymph # (Auto) Ralls # (Auto) Seg Neutrophils % Seg Neuts % (Manual) Lymphocytes % (Manual) Nucleated RBC % Seg Neutrophils # Seg Neutrophils # Man Lymphocytes # (Manual) Monocytes # (Manual) D-Dimer ABG pH POC ABG pCO2 POC ABG pO2 ABG pO2 ABG Hemoglobin ABG Oxyhemoglobin ABG Sodium ABG Potassium ABG Chloride ABG Glucose Carboxyhemoglobin Sodium Potassium Chloride Carbon Dioxide BUN Creatinine Glucose POC Glucose 107 H Lactic Acid Calcium Magnesium AST ALT Total Protein Albumin Triglycerides 1492 H Arterial Blood Glucose Arterial Blood Ionized Calcium Urine WBC (Auto) Urine Creatinine Crossmatch 08/20/21 08/20/21 08/20/21 06:00 16:55 23:55 WBC RBC Hgb Hct MCH MCHC RDW Plt Count Lymph % (Auto) Lymph # (Auto) Ralls # (Auto) Seg Neutrophils % Seg Neuts % (Manual) Lymphocytes % (Manual) Nucleated RBC % Seg Neutrophils # Seg Neutrophils # Man Lymphocytes # (Manual) Monocytes # (Manual) D-Dimer ABG pH POC ABG pCO2 POC ABG pO2 ABG pO2 ABG Hemoglobin ABG Oxyhemoglobin ABG Sodium ABG Potassium ABG Chloride ABG Glucose Carboxyhemoglobin Sodium 134 L Potassium Chloride Carbon Dioxide BUN 42 H Creatinine Glucose 102 H POC Glucose 163 H Lactic Acid Calcium 8.1 L Magnesium AST < 5 L ALT < 5 L Total Protein 4.7 L Albumin 2.2 L Triglycerides 207 H Arterial Blood Glucose Arterial Blood Ionized Calcium Urine WBC (Auto) Urine Creatinine Crossmatch 08/21/21 08/21/21 08/21/21 06:17 12:41 17:05 WBC RBC Hgb Hct MCH MCHC RDW Plt Count Lymph % (Auto) Lymph # (Auto) Ralls # (Auto) Seg Neutrophils % Seg Neuts % (Manual) Lymphocytes % (Manual) Nucleated RBC % Seg Neutrophils # Seg Neutrophils # Man Lymphocytes # (Manual) Monocytes # (Manual) D-Dimer ABG pH POC ABG pCO2 POC ABG pO2 ABG pO2 ABG Hemoglobin ABG Oxyhemoglobin ABG Sodium ABG Potassium ABG Chloride ABG Glucose Carboxyhemoglobin Sodium Potassium Chloride Carbon Dioxide BUN Creatinine Glucose POC Glucose 169 H 132 H 157 H Lactic Acid Calcium Magnesium AST ALT Total Protein Albumin Triglycerides Arterial Blood Glucose Arterial Blood Ionized Calcium Urine WBC (Auto) Urine Creatinine Crossmatch 08/21/21 08/22/21 08/22/21 23:39 04:00 05:51 WBC RBC 2.80 L Hgb 8.2 L Hct 25.4 L MCH MCHC RDW 16.9 H Plt Count 465 H Lymph % (Auto) Lymph # (Auto) Ralls # (Auto) Seg Neutrophils % Seg Neuts % (Manual) Lymphocytes % (Manual) Nucleated RBC % Seg Neutrophils # Seg Neutrophils # Man Lymphocytes # (Manual) Monocytes # (Manual) D-Dimer ABG pH POC ABG pCO2 POC ABG pO2 ABG pO2 ABG Hemoglobin ABG Oxyhemoglobin ABG Sodium ABG Potassium ABG Chloride ABG Glucose Carboxyhemoglobin Sodium Potassium Chloride Carbon Dioxide BUN Creatinine Glucose POC Glucose 179 H 134 H Lactic Acid Calcium Magnesium AST ALT Total Protein Albumin Triglycerides Arterial Blood Glucose Arterial Blood Ionized Calcium Urine WBC (Auto) Urine Creatinine Crossmatch 08/22/21 Unknown WBC RBC Hgb Hct MCH MCHC RDW Plt Count Lymph % (Auto) Lymph # (Auto) Ralls # (Auto) Seg Neutrophils % Seg Neuts % (Manual) Lymphocytes % (Manual) Nucleated RBC % Seg Neutrophils # Seg Neutrophils # Man Lymphocytes # (Manual) Monocytes # (Manual) D-Dimer ABG pH POC ABG pCO2 POC ABG pO2 ABG pO2 ABG Hemoglobin ABG Oxyhemoglobin ABG Sodium ABG Potassium ABG Chloride ABG Glucose Carboxyhemoglobin Sodium Potassium Chloride Carbon Dioxide BUN 52 H Creatinine Glucose 137 H POC Glucose Lactic Acid Calcium Magnesium AST ALT Total Protein 6.0 L D Albumin 2.7 L Triglycerides Arterial Blood Glucose Arterial Blood Ionized Calcium Urine WBC (Auto) Urine Creatinine Crossmatch Chest x-ray: image reviewed (no large volume atelectasis) Allied health notes reviewed: nursing
--- NOTE | 2021-08-22 12:42 | Progress Note ---
<GURWINDER LANCASTER A - Last Filed: 08/22/21 15:39> Assessment and Plan Assessment and plan: 66-year-old female with PmHx of HTN, DM, HLD, COPD, ex-smoker, breast CA s/p Rt. mastectomy, now with metastatic to the lung. Initially admitted for acute hypoxic respiratory failure, COPD exacerbation, pneumonia and left lower leg DVT, coded on 07/29 and was transferredn to ICU . Patient is s/p tracheostomy and PEGTube insertion, currently vent dependent/ failed multiples CPAP trial 07/29/2021. Patient seen this morning with Shabbir-Chavira respiration/agonal breathing. RENEE ABREU was called and patient was intubated and placed on mechanical ventilation. Patient transferred to ICU. Critical care/pulmonary consulted. Patient currently with AC mode rate of 30, FiO2 100%, PEEP of 12. C ontinue IV antibiotics. Consult ID and oncology for further evaluation. Patient will likely need bronchoscopy for further evaluation of the lung mass. Doppler ultrasound revealedLLE DVT. Start anticoagulation. 07/30/2021. Patient appears much improved and more responsive this morning. Patient currently with AC mode ventilation rate of 24, tidal volume 450, PEEP of 8 and FiO2 35%. Spontaneous breathing trials with possible extubation today per pulmonary. Bronchoscopy per pulmonary. Continue Lovenox twice daily for DVT. Continue IV antibiotics for sepsis/pneumonia. ID consultation pending. Follow- up CEA, CA 15-3, CA 2729. 07/31/2021. Echocardiogram reveals left ventricular size and function are normal. EF 50 to 55% with mild diastolic dysfunction. Patient currently with CPAP/PSV t rial 11/02. Anticipate extubation today per pulmonary. Bronchoscopy per pulmonary. Continue Lovenox twice daily for DVT. Continue IV antibiotics for sepsis/pneumonia. ID consultation pending. Follow-up CEA, CA 15-3, CA 2729. 08/01: ALIYAH 08/02: Patient had a bronchoscopy today. Cell count, cytology and AFB sent from samples. Patient remains sedated on fentanyl and Versed. Patient and epifanio Wayne were updated. 08/03: [facility] follow-up on [facility] specimens and was informed patient specimens indicate cancer. Communicated to Dr. Abbott and he stated he will update family. 08/04: Patient remains sedated on fentanyl and Versed, patient has moments of agitation with any stimulation. CPAP trial unable to be completed today due to agitation. 08/05: Patient had low urine output overnight and Elizabeth catheter was changed this a.m. with 2 L of urine output received. Patient did have a increase in creatinine however this may have been obstructive process and nephrology is aware. Hematology/oncology spoke to family who wishes for everything to be done despite bronchial washings with cancer cells. [facility] contacted patient's oncologist to help facilitate transfer. We attempted to hold sedation for CPAP trial however patient became extremely agitated and sedation was restarted. 08/06: Surgery consulted for possible trach. Leukocytosis and renal function slowly improving. No acute events reported overnight. 08/07: Creatinine continues to decrease, patient has slight hyper natremia and hyperchloremia. Patient remains on fentanyl and Versed with periods of agitation. Increasing free water flushes. 08-08 improving cr; febrile; family wants full care/full code- heme onc following 08-09 LOW GRADE FEVERS; FOR TRACH/PEG 08/10: Patient seen and examined, had Bronchoscopy and Trach and PEG today, follow report. Continue supportive care. 08/11: Patient remains on full vent support. Continue supportive care. 08/12: This morning patient noted with bleeding around trach surgery consulted going for emergent surgery. Labs ordered 08/13: Patient seen and examined, no further bleeding, had surgical intervention yesterday for trach site bleeding. No further bleeding this am. Patient otherwise remains on mechanical ventilation. Leukocytosis mildly worsened today this could be reactive has no fever will monitor mental status is still severely encephalopathic. 08/14/21 patient seen and examined. Lab and medication reviewed. No further bleeding from track site. Hemoglobin is 8.1. Hematocrit 24.2 and WBC 9.7. Continue current management and supportive care. Recheck CBC CMP in the morning 08/15: Overnight patient experienced sinus pericardia with return, will receive MiraLAX and CPAP trial today. 08/16: CPAP trial failed today. 08/17: given ducloax suppository today 08/18: failed cpap today as she became bradycardiac. able to follow simple commands. update today by phone. See note for details. Ltach referral sent 08/19- Patient is trached and on the vent, sedated with propofol and fentanyl. Attempted SAT today did not tolerated it, so no SBT trial today due to increased agitation and patient required more sedation to reach RASS goal -3 to -4. No documented BM document, PRN MOM administered, continue BR. Continue to monitor renal function, H&H, and electrolytes. AM labs ordered. 08/20: Awaiting placement at LTAC. 08/20: Supportive management. Awaiting placement at LTAC. 08-22 aliyah overnight #Neuro: Acute metabolic encephalopathy, sedation for agitation - Sedated with fentanyl and versed - Titrate gtts for RASS goal of -2 to -3 - SAT daily as tolerated - Avoid delirium- On Seroquel; follow QT EKG ordered - Bilateral restraints for safety -updated family daily on care -nodding to command today; generalized weakness; PERRL #Cardio: Sinus Tachycardia #s/p cardiac arrest #H/o HTN & HLD - 07/29- Echocardiogram completed-> EF 50 to 55% with mild diastolic dysfunction - SR-ST -no pressors - Continue to monitor blood pressure, MAP goal> 65 and SBP<165 - PRN Hydralazine #Respiratory: Acute hypoxemic respiratory failure 2/2 Lung mass/CA #COPD exacerbation sp trach - 08/10 S/P Tracheostomybronchoscopy biopsy-->carcinoma c/w breast primary, ER/WV/H2N neg, TTf1 neg - Vent setting: AC 30%,8,12,450 see ivjuan for weaning attempts - Vent dependent/ unable to wean off vent due to multiple failed trials vazquez down in the 30s -daily SAT as tolerated - VAP bundle addressed - Aspiration precaution; keep HOB elevated> 45 degree - Continue SPO2 monitoring for SPO2 goal greater than 90% - Continue daily ABG per CCM -continue nebs #GI: Contipation - 08/10 s/p PEGTube insertion - 08/17 KUB: moderate amount of fecal material throughout theh colon - Continue enteral nutrition- TF at goal - Continue bowel regimen: Miralax, senokot, and PRN Ducolax & MOM for constipation BM 08-20 - Continue PPI- Pepcid #: Acute kidney injury likely 2/2 vasomotor nephropathy/pre-renal - 08/01 FeNA 0.13 - Continue to monitor renal function - Continue to monitor electrolytes, replace if necessary - Continue Strict intake and output -free water flushes decreased-na now 139; reevaluate daily - Continue to avoid nephrotoxins, renally dose all medications - Nephrology on consult, appreciate recommendations #ID: Acute sepsis possibly due to PNA vs cardiac event- Resolved - 07/27 B.Cultx2:neg, 07/29 tracheal aspirate:neg, 08/02 Urine cult: neg, 08/08 repeat B.CultX2: neg - trend WBC and temp curve -follow culture data #Heme/Onc: H/o breast carcinoma with metastasis to lungs #LLE DVT #Acute Blood loss- resolved - 08/12 Bronchocopy biopsy- result confirm carcinoma c/w breast primary - H&H stable - Continue AC- for DVT Dr Hanna consulted US to be repeated and reeval AC strategy - SCDs to bilateral lower extremities while in bed - Heme/Onc on Consult - Per Heme/Onc patient is "not a good candidate for chemotherapy, but chest tumor radiation may be possible" #Endo: Hyperglycemia, H/o DM; obesity - Continue SSI for a Target blood glucose of 140-180 - Avoid hypoglycemia The high probability of a clinically significant, sudden or life threatening deterioration of the [multi] system(s) required my full and direct attention, intervention and personal management. The aggregate critical care time was [60] minutes. This time is in addition to time spent performing reported procedures but includes the following: [x] Data Review and interpretation [x] Patient assessment and monitoring of vital signs [x] Documentation [x] Medication orders and management Disposition Plan: icu- dispo plan LTAC Total Time Spent with Patient (Minutes): 60 History Interval history: aliyah Hospitalist Physical - Constitutional Vitals: Temp Pulse Resp BP Pulse Ox 99.2 F 86 13 117/66 100 08/22/21 08:00 08/22/21 12:06 08/22/21 11:16 08/22/21 12:06 08/22/21 12:06 General appearance: Present: no acute distress - EENT Eyes: Present: PERRL ENT: hearing intact, clear oral mucosa - Neck Neck: Present: supple - Respiratory Respiratory effort: normal - Cardiovascular Rhythm: regular - Abdominal General gastrointestinal: soft - Integumentary Integumentary: Present: clear, warm, dry - Psychiatric Psychiatric: other - Neurologic Neurologic: other - Allied Health Allied health notes reviewed: nursing, RT, social work, case management Results - Labs CBC & Chem 7: 08/22/21 04:00 08/22/21 Unknown Labs: Laboratory Last Values WBC 7.8 K/mm3 (4.5-11.0) 08/22/21 04:00 RBC 2.80 M/mm3 (3.65-5.03) L 08/22/21 04:00 Hgb 8.2 gm/dl (10.1-14.3) L 08/22/21 04:00 Hct 25.4 % (30.3-42.9) L 08/22/21 04:00 MCV 91 fl (79-97) 08/22/21 04:00 MCH 29 pg (28-32) 08/22/21 04:00 MCHC 32 % (30-34) 08/22/21 04:00 RDW 16.9 % (13.2-15.2) H 08/22/21 04:00 Plt Count 465 K/mm3 (140-440) H 08/22/21 04:00 Lymph % (Auto) 12.5 % (13.4-35.0) L 08/15/21 Unknown Lares % (Auto) 5.9 % (0.0-7.3) 08/15/21 Unknown Eos % (Auto) 0.9 % (0.0-4.3) 08/15/21 Unknown Baso % (Auto) 0.3 % (0.0-1.8) 08/15/21 Unknown Lymph # (Auto) 1.0 K/mm3 (1.2-5.4) L 08/15/21 Unknown Lares # (Auto) 0.5 K/mm3 (0.0-0.8) 08/15/21 Unknown Eos # (Auto) 0.1 K/mm3 (0.0-0.4) 08/15/21 Unknown Baso # (Auto) 0.0 K/mm3 (0.0-0.1) 08/15/21 Unknown Add Manual Diff Complete 08/05/21 04:50 Total Counted 100 08/05/21 04:50 Seg Neutrophils % 80.4 % (40.0-70.0) H 08/15/21 Unknown Seg Neuts % (Manual) 75.0 % (40.0-70.0) H 08/05/21 04:50 Band Neutrophils % 8.0 % 08/05/21 04:50 Lymphocytes % (Manual) 2.0 % (13.4-35.0) L 08/05/21 04:50 Monocytes % (Manual) 5.0 % (0.0-7.3) 08/05/21 04:50 Eosinophils % (Manual) 1.0 % (0.0-4.3) 08/05/21 04:50 Metamyelocytes % 6.0 % 08/05/21 04:50 Myelocytes % 3.0 % 08/05/21 04:50 Nucleated RBC % Not Reportable 08/05/21 04:50 Seg Neutrophils # 6.4 K/mm3 (1.8-7.7) 08/15/21 Unknown Seg Neutrophils # Man 14.3 K/mm3 (1.8-7.7) H 08/05/21 04:50 Band Neutrophils # 1.5 K/mm3 08/05/21 04:50 Lymphocytes # (Manual) 0.4 K/mm3 (1.2-5.4) L 08/05/21 04:50 Abs React Lymphs (Man) 0.0 K/mm3 08/05/21 04:50 Monocytes # (Manual) 1.0 K/mm3 (0.0-0.8) H 08/05/21 04:50 Eosinophils # (Manual) 0.2 K/mm3 (0.0-0.4) 08/05/21 04:50 Basophils # (Manual) 0.0 K/mm3 (0.0-0.1) 08/05/21 04:50 Metamyelocytes # 1.1 K/mm3 08/05/21 04:50 Myelocytes # 0.6 K/mm3 08/05/21 04:50 Promyelocytes # 0.0 K/mm3 08/05/21 04:50 Blast Cells # 0.0 K/mm3 08/05/21 04:50 WBC Morphology Not Reportable 08/05/21 04:50 Hypersegmented Neuts Not Reportable 08/05/21 04:50 Hyposegmented Neuts Not Reportable 08/05/21 04:50 Hypogranular Neuts Not Reportable 08/05/21 04:50 Smudge Cells Not Reportable 08/05/21 04:50 Toxic Granulation Not Reportable 08/05/21 04:50 Toxic Vacuolation Not Reportable 08/05/21 04:50 Dohle Bodies Not Reportable 08/05/21 04:50 Pelger-Huet Anomaly Not Reportable 08/05/21 04:50 Beryl Rods Not Reportable 08/05/21 04:50 Platelet Estimate Consistent w auto 08/05/21 04:50 Clumped Platelets Not Reportable 08/05/21 04:50 Plt Clumps, EDTA Not Reportable 08/05/21 04:50 Large Platelets Not Reportable 08/05/21 04:50 Giant Platelets Not Reportable 08/05/21 04:50 Platelet Satelliting Not Reportable 08/05/21 04:50 Plt Morphology Comment Not Reportable 08/05/21 04:50 RBC Morphology Not Reportable 08/05/21 04:50 Dimorphic RBCs Not Reportable 08/05/21 04:50 Polychromasia Not Reportable 08/05/21 04:50 Hypochromasia Not Reportable 08/05/21 04:50 Poikilocytosis Not Reportable 08/05/21 04:50 Anisocytosis Not Reportable 08/05/21 04:50 Microcytosis Not Reportable 08/05/21 04:50 Macrocytosis Not Reportable 08/05/21 04:50 Spherocytes Not Reportable 08/05/21 04:50 Pappenheimer Bodies Not Reportable 08/05/21 04:50 Sickle Cells Not Reportable 08/05/21 04:50 Target Cells Not Reportable 08/05/21 04:50 Tear Drop Cells Not Reportable 08/05/21 04:50 Ovalocytes Few 08/05/21 04:50 Helmet Cells Not Reportable 08/05/21 04:50 [place] Bodies Not Reportable 08/05/21 04:50 [place] Rings Not Reportable 08/05/21 04:50 [place] Cells Not Reportable 08/05/21 04:50 Bite Cells Not Reportable 08/05/21 04:50 Crenated Cell Not Reportable 08/05/21 04:50 Elliptocytes Not Reportable 08/05/21 04:50 Acanthocytes (Spur) Not Reportable 08/05/21 04:50 Rouleaux Not Reportable 08/05/21 04:50 Hemoglobin C Crystals Not Reportable 08/05/21 04:50 Schistocytes Not Reportable 08/05/21 04:50 Malaria parasites Not Reportable 08/05/21 04:50 Gurmeet Bodies Not Reportable 08/05/21 04:50 Hem Pathologist Commnt No 08/05/21 04:50 PT 14.5 Sec. (12.2-14.9) 08/12/21 21:41 INR 1.08 (0.87-1.13) 08/12/21 21:41 APTT 29.9 Sec. (24.2-36.6) 08/10/21 05:20 D-Dimer 852.47 ng/mlDDU (0-234) H 07/29/21 07:17 ABG pH 7.401 (7.320-7.450) 08/19/21 13:45 POC ABG pCO2 39.8 mmHg (32.0-48.0) 08/19/21 13:45 ABG pCO2 46.6 mm Hg 08/17/21 21:23 POC ABG pO2 145.3 mmHg (83-108) H 08/19/21 13:45 ABG pO2 122.5 mm Hg (80.0-90.0) H 08/17/21 21:23 POC ABG HCO3 24.2 08/19/21 13:45 ABG HCO3 24.4 mmol/L (20.0-26.0) 08/17/21 21:23 ABG O2 Saturation 99.0 (0-100) 08/19/21 13:45 ABG O2 Content 10.6 (0.0-44) 08/17/21 21:23 POC ABG Base Excess -0.5 08/19/21 13:45 ABG Base Excess -1.4 mmol/L (-2.0-3.0) 08/17/21 21:23 ABG Hemoglobin 10.0 (12.0-17.5) L 08/19/21 13:45 ABG Oxyhemoglobin 98.4 (94-98) H 08/19/21 13:45 ABG Carboxyhemoglobin 1.8 % (0.0-5.0) 08/17/21 21:23 ABG Methemoglobin 0.3 (0.0-1.5) 08/19/21 13:45 ABG Sodium 134.0 mmol/L (136.0-145.0) L 08/19/21 13:45 ABG Potassium 4.2 mmol/L (3.40-4.50) 08/19/21 13:45 ABG Chloride 102.0 mmol/L (98-107) 08/19/21 13:45 ABG Glucose 141 mg/dL (65-95) H 08/19/21 13:45 Oxyhemoglobin 96.2 % (95.0-99.0) 08/17/21 21:23 Carboxyhemoglobin 0.3 (0.5-1.5) L 08/19/21 13:45 FiO2 30 % 08/17/21 21:23 FiO2 % 30.0 08/19/21 13:45 Sodium 139 mmol/L (137-145) 08/22/21 Unknown Potassium 5.0 mmol/L (3.6-5.0) 08/22/21 Unknown Chloride 103.6 mmol/L (98-107) 08/22/21 Unknown Carbon Dioxide 25 mmol/L (22-30) 08/22/21 Unknown Anion Gap 15 mmol/L 08/22/21 Unknown BUN 52 mg/dL (7-17) H 08/22/21 Unknown Creatinine 0.7 mg/dL (0.6-1.2) 08/22/21 Unknown Estimated GFR > 60 ml/min 08/22/21 Unknown BUN/Creatinine Ratio 74 % 08/22/21 Unknown Glucose 137 mg/dL (65-100) H 08/22/21 Unknown POC Glucose 102 mg/dL (70-105) 08/22/21 11:15 Lactic Acid 2.10 mmol/L (0.7-2.0) H* 08/03/21 15:11 Calcium 8.7 mg/dL (8.4-10.2) 08/22/21 Unknown Phosphorus 4.10 mg/dL (2.5-4.5) 08/08/21 06:00 Magnesium 1.70 mg/dL (1.7-2.3) 08/12/21 21:41 Total Bilirubin 0.20 mg/dL (0.1-1.2) 08/22/21 Unknown AST 29 units/L (5-40) 08/22/21 Unknown ALT 51 units/L (7-56) 08/22/21 Unknown Alkaline Phosphatase 114 units/L (35-129) 08/22/21 Unknown Serum Total Protein See scanned result 08/03/21 04:17 Total Protein 6.0 g/dL (6.3-8.2) L D 08/22/21 Unknown Albumin 2.7 g/dL (3.9-5) L 08/22/21 Unknown Albumin/Globulin Ratio 0.8 % 08/22/21 Unknown [id number] See scanned result 08/03/21 04:17 Attqo-4-Cnclhvhtx See scanned result 08/03/21 04:17 Beta Globulins See scanned result 08/03/21 04:17 Gamma Globulins See scanned result 08/03/21 04:17 Abnorm Protein Band 1 See scanned result 08/03/21 04:17 Abnorm Protein Band 2 See scanned result 08/03/21 04:17 Abnorm Protein Band 3 See scanned result 08/03/21 04:17 PEP Interpretation See scanned result 08/03/21 04:17 Triglycerides 207 mg/dL (2-149) H 08/20/21 16:55 Lipase 56 units/L (13-60) 08/20/21 16:55 Carcinoembryonic Ag <0.5 ng/mL (0.0-2.4) 07/31/21 04:45 Arterial Blood Glucose 141 mg/dL (65-95) H 08/19/21 13:45 Arterial Blood Ionized Calcium 4.6 mg/dL (4.6-5.3) 08/17/21 07:27 Urine Color Yellow (Yellow) 08/08/21 20:27 Urine Turbidity Slightly-cloudy (Clear) 08/08/21 20: Urine pH 5.0 (5.0-7.0) 08/08/21 20:27 Ur Specific [place] 1.014 (1.003-1.030) 08/08/21 20:27 Urine Protein 30 mg/dl mg/dL (Negative) 08/08/21 20:27 Urine Glucose (UA) Neg mg/dL (Negative) 08/08/21 20: Urine Ketones Neg mg/dL (Negative) 08/08/21 20: Urine Blood Mod (Negative) 08/08/21 20:27 Urine Nitrite Neg (Negative) 08/08/21 20:27 Urine Bilirubin Neg (Negative) 08/08/21 20: Urine Urobilinogen < 2.0 mg/dL (<2.0) 08/08/21 20:27 Ur Leukocyte Esterase Neg (Negative) 08/08/21 20:27 Urine WBC (Auto) 6.0 /HPF (0.0-6.0) 08/08/21 20:27 Urine RBC (Auto) 6.0 /HPF (0.0-6.0) 08/08/21 20:27 U Epithel Cells (Auto) < 1.0 /HPF (0-13.0) 08/08/21 20:27 Urine Bacteria (Auto) 1+ /HPF (Negative) 08/08/21 20:27 Urine Mucus Few /HPF 08/08/21 20: Urine Yeast (Budding) 1+ /HPF 08/08/21 20:27 Urine Creatinine 125.6 mg/dL (0.1-20.0) H 08/01/21 Unknown Urine Sodium 12 mmol/L 08/01/21 Unknown Proteinase 3 (PR3) Ab See scanned result 08/02/21 15:40 Myeloperoxidase Ab See scanned result 08/02/21 15:40 Double Strand DNA Ab 1 IU/mL (<=4) 08/02/21 15:40 Coronavirus (PCR) Negative (Negative) 07/29/21 07:58 Hepatitis A IgM Ab Non-reactive (NonReactive) 08/02/21 15:40 Hep Bs Antigen Nonreactive (Negative) 08/02/21 15:40 Hep B Core IgM Ab Non-reactive (NonReactive) 08/02/21 15:40 Hepatitis C Antibody Non-reactive (NonReactive) 08/02/21 15:40 AFB Identification Negative 08/02/21 14:30 Blood Type A POSITIVE 08/18/21 05:10 Antibody Screen Negative 08/18/21 05:10 Crossmatch See Detail 08/18/21 05:10 Elizabeth/IV: Voiding Method Indwelling Catheter Active Medications - Current Medications Current Medications: Generic Name Dose Route Start Last Admin Trade Name Freq PRN Reason Stop Dose Admin Acetaminophen 650 mg 07/28/21 02:11 08/18/21 22:02 Acetaminophen 325 Mg Tab PO 650 mg Q6H PRN Administration Pain MILD(1-3)/Fever >100.5/GARCIA Albuterol/Ipratropium 1 ampul 07/28/21 14:00 08/22/21 07:39 Ipratropium/Albuterol Sulfate 3 Ml Ampul.Neb IH 1 ampul TID DEMIAN Administration Lipase/Protease/Amylase 1 each 07/29/21 13:01 Lipase 10,500/Protease 25,000/Amylase 43,750 (Units) Dr Cap FEEDTUBE PRN PRN For Clogged Feeding Tube Arformoterol Tartrate 15 mcg 07/28/21 20:00 08/22/21 07:39 Arformoterol 15 Mcg/2 Ml Nebu IH 15 mcg Q12HRT DEMIAN Administration Bisacodyl 10 mg 08/07/21 09:50 08/20/21 09:22 Bisacodyl 10 Mg Rect Supp W[place] 10 mg QDAY PRN Administration Constip unreliev by MOM/or NPO Budesonide 0.5 mg 07/28/21 20:00 08/22/21 07:39 Budesonide 0.5 Mg/2 Ml Nebu IH 0.5 mg Q12HRT DEMIAN Administration Dextrose 50 ml 07/28/21 02:11 08/10/21 18:05 Dextrose 50% In Water (25gm) 50 Ml Syringe IV 20 ml Q30MIN PRN Administration Hypoglycemia Protocol Enoxaparin Sodium 40 mg 08/19/21 10:00 08/22/21 10:41 Enoxaparin 40 Mg/0.4 Ml Inj SUB-Q 40 mg QDAY DEMIAN Administration Protocol Famotidine 20 mg 08/15/21 10:00 08/22/21 10:36 Famotidine 20 Mg Tab FEEDTUBE 20 mg BID DEMIAN Administration Fentanyl 50 mcg 07/29/21 10:42 08/22/21 07:15 Fentanyl 100 Mcg/2 Ml Inj IV 50 mcg Q10MIN PRN Administration ANALGESIA Hydralazine HCl 10 mg 07/30/21 14:52 08/19/21 12:12 Hydralazine 20 Mg/1 Ml Inj IV 10 mg Q6H PRN Administration SBP > 165 Hydrophilic Ointment 1 applic 07/29/21 10:42 Lip Therapy Vaseline TP Q2HR PRN Dry Lips Fentanyl Citrate 2,000 mcg in 100 mls @ 5.35 mls/hr 07/29/21 11:00 08/22/21 10:39 Fentanyl Drip Premix IV 4 mcg/kg/hr TITR DEMIAN 21.4 mls/hr Administration Protocol 1 MCG/KG/HR Norepinephrine 4 mg in 250 mls @ 7.5 mls/hr 07/29/21 21:00 Levophed Drip 4 Mg/Ns 250 Ml IV TITR DEMIAN Protocol 2 MCG/MIN Midazolam HCl 100 mg/ Sodium 100 mls @ 1 mls/hr 08/20/21 17:00 08/21/21 15:41 Chloride IV 2 mg/hr TITR DEMIAN 2 mls/hr Titration Protocol 1 MG/HR Insulin Human Lispro 0 unit 07/29/21 12:00 08/22/21 00:43 Insulin Lispro 100 Unit/Ml SUB-Q 3 unit Q6HR DEMIAN Administration Protocol Magnesium Hydroxide 30 ml 07/28/21 02:11 08/20/21 09:21 Magnesium Hydroxide (Mom) Oral Liqd Udc PO 30 ml Q4H PRN Administration Constipation Methylprednisolone Sodium Succinate 80 mg 08/20/21 13:00 08/21/21 13:26 Methylprednisolone Sod Succinate 125 Mg/2 Ml Inj IV 08/22/21 12:59 80 mg Q12H DEMIAN Administration Midazolam HCl 2 mg 08/20/21 16:15 08/20/21 18:33 Midazolam 2 Mg/2 Ml Inj IV 2 mg Q10MIN PRN Administration Sedation Multi-Ingred Cream/Lotion/Oil/Oint 1 applic 07/29/21 10:42 Mineral Oil/Petrolatum, White Ophth Oint 3.5 Gm OU Q4HR PRN Dry Eye(s) Oxycodone HCl 5 mg 08/18/21 15:45 08/18/21 21:58 Oxycodone 5 Mg Tab PO 5 mg Q4H PRN Administration Pain, Moderate (4-6) Polyethylene Glycol 17 gm 08/11/21 16:00 08/22/21 10:24 Polyethylene Glycol 3350 17 Gm Powder PO 17 gm QDAY DEMIAN Administration Quetiapine Fumarate 250 mg 08/20/21 16:19 08/22/21 10:23 Quetiapine 100 Mg Tab PO 250 mg BID DEMIAN Administration Senna/Docusate Sodium 1 tab 08/11/21 13:00 08/21/21 21:55 Sennosides/Docusate Sodium 8.6/50 Mg Tab FEEDTUBE 1 tab Q8H DEMIAN Administration Simple Syrup 15 ml 07/29/21 13:01 Simple Syrup 15 Ml FEEDTUBE PRN PRN Hypoglycemia Simple Syrup 30 ml 07/29/21 13:01 Simple Syrup 15 Ml FEEDTUBE PRN PRN Hypoglycemia Sodium Bicarbonate 325 mg 07/29/21 13:01 Sodium Bicarbonate 325 Mg Tab FEEDTUBE PRN PRN For Clogged Feeding Tube Sodium Chloride 10 ml 07/28/21 10:00 08/22/21 10:31 Sodium Chloride 0.9% 10 Ml Flush Syringe IV 10 ml BID DEMIAN Administration Sodium Chloride 10 ml 07/28/21 02:05 Sodium Chloride 0.9% 10 Ml Flush Syringe IV PRN PRN LINE FLUSH Nutrition/Malnutrition Assess - Dietary Evaluation Nutrition/Malnutrition Findings: Nutrition Notes Start: 07/28/21 14:44 Freq: Status: Active Protocol: Document 08/16/21 15:09 KAREY (Rec: 08/16/21 15:16 [facility] [place] [id number]) Nutrition Notes Initial or Follow up Reassessment Current Diagnosis Diabetes,Hypertension, Respiratory Failure, Hyperlipidemia Current Diet TF - Vital AF 1.2 at 50ml/hr Labs/Tests Na 144 Pertinent Medications Senna, Miralax, Dulcolax Height 5 ft Weight 107 kg [place] Body Weight (kg) 45.45 BMI 46.0 Weight Status Morbidly Obese Subjective/Other Information Spoke with RN via phone at 15: 08. Pt still has not had a BM . Medications given today. Pt tolerating TF at goal rate and remains on vent support. Percent of energy/protein needs met: 78% energy 79% pro Burn Absent Trauma Absent GI Symptoms Constipation #1 Nutrition Diagnosis Inadequate oral intake Diagnosis Progress(for reassessment Continues documentation) Is patient on ventilator? Yes Is Patient Ambulatory and/or Out of Bed No REE-([facility]-confined to bed) 1842.852 Kcal/Kg value to use for calculation 13 Approximate Energy Requirements Using 1391 kcal/Kg Calculation Used for Recommendations Kcal/kg Additional Notes Protein: (up to 2.5g/kg IBW) up to 114g Fluid: 1 ml/kcal or per MD Nutrition Intervention Nutrition Support: Continue Vital AF 1.2 at 50 ml /hr. Per RN, pt receiving 200ml water flush q4h. Kcal 1,440 Protein (gm) 90 Fluid (mL) 973 Goal #1 TF tolerance Goal #2 TF to meet at least 75% energy and pro needs Follow-Up By: 08/23/21 Additional Comments F/U: stable TF, BM, vent status - Attestation Statement I have reviewed and agreed w/ Malnutrition eval & tx plan: Yes <LINDSAY FARR - Last Filed: 08/22/21 18:59> Assessment and Plan Assessment and plan: I saw and evaluated the patient. Discussed with the nurse practitioner and agree with their findings and plan as documented in this note. Hospitalist Physical - Constitutional Vitals: Temp Pulse Resp BP Pulse Ox 98 F 97 H 12 135/78 99 08/22/21 16:00 08/22/21 17:30 08/22/21 17:30 08/22/21 17:30 08/22/21 17:30 Results - Labs CBC & Chem 7: 08/22/21 04:00 08/22/21 Unknown Labs: Laboratory Last Values WBC 7.8 K/mm3 (4.5-11.0) 08/22/21 04:00 RBC 2.80 M/mm3 (3.65-5.03) L 08/22/21 04:00 Hgb 8.2 gm/dl (10.1-14.3) L 08/22/21 04:00 Hct 25.4 % (30.3-42.9) L 08/22/21 04:00 MCV 91 fl (79-97) 08/22/21 04:00 MCH 29 pg (28-32) 08/22/21 04:00 MCHC 32 % (30-34) 08/22/21 04:00 RDW 16.9 % (13.2-15.2) H 08/22/21 04:00 Plt Count 465 K/mm3 (140-440) H 08/22/21 04:00 Lymph % (Auto) 12.5 % (13.4-35.0) L 08/15/21 Unknown Lares % (Auto) 5.9 % (0.0-7.3) 08/15/21 Unknown Eos % (Auto) 0.9 % (0.0-4.3) 08/15/21 Unknown Baso % (Auto) 0.3 % (0.0-1.8) 08/15/21 Unknown Lymph # (Auto) 1.0 K/mm3 (1.2-5.4) L 08/15/21 Unknown Lares # (Auto) 0.5 K/mm3 (0.0-0.8) 08/15/21 Unknown Eos # (Auto) 0.1 K/mm3 (0.0-0.4) 08/15/21 Unknown Baso # (Auto) 0.0 K/mm3 (0.0-0.1) 08/15/21 Unknown Add Manual Diff Complete 08/22/21 04:00 Total Counted 100 08/22/21 04:00 Seg Neutrophils % 80.4 % (40.0-70.0) H 08/15/21 Unknown Seg Neuts % (Manual) 84.0 % (40.0-70.0) H 08/22/21 04:00 Band Neutrophils % 3.0 % 08/22/21 04:00 Lymphocytes % (Manual) 7.0 % (13.4-35.0) L 08/22/21 04:00 Monocytes % (Manual) 6.0 % (0.0-7.3) 08/22/21 04:00 Eosinophils % (Manual) 1.0 % (0.0-4.3) 08/05/21 04:50 Metamyelocytes % 6.0 % 08/05/21 04:50 Myelocytes % 3.0 % 08/05/21 04:50 Nucleated RBC % 1.0 % (0.0-0.9) H 08/22/21 04:00 Seg Neutrophils # 6.4 K/mm3 (1.8-7.7) 08/15/21 Unknown Seg Neutrophils # Man 6.6 K/mm3 (1.8-7.7) 08/22/21 04:00 Band Neutrophils # 0.2 K/mm3 08/22/21 04:00 Lymphocytes # (Manual) 0.5 K/mm3 (1.2-5.4) L 08/22/21 04:00 Abs React Lymphs (Man) 0.0 K/mm3 08/22/21 04:00 Monocytes # (Manual) 0.5 K/mm3 (0.0-0.8) 08/22/21 04:00 Eosinophils # (Manual) 0.0 K/mm3 (0.0-0.4) 08/22/21 04:00 Basophils # (Manual) 0.0 K/mm3 (0.0-0.1) 08/22/21 04:00 Metamyelocytes # 0.0 K/mm3 08/22/21 04:00 Myelocytes # 0.0 K/mm3 08/22/21 04:00 Promyelocytes # 0.0 K/mm3 08/22/21 04:00 Blast Cells # 0.0 K/mm3 08/22/21 04:00 WBC Morphology Not Reportable 08/22/21 04:00 Hypersegmented Neuts Not Reportable 08/22/21 04:00 Hyposegmented Neuts Not Reportable 08/22/21 04:00 Hypogranular Neuts Not Reportable 08/22/21 04:00 Smudge Cells Not Reportable 08/22/21 04:00 Toxic Granulation Not Reportable 08/22/21 04:00 Toxic Vacuolation Not Reportable 08/22/21 04:00 Dohle Bodies Not Reportable 08/22/21 04:00 Pelger-Huet Anomaly Not Reportable 08/22/21 04:00 Beryl Rods Not Reportable 08/22/21 04:00 Platelet Estimate Consistent w auto 08/22/21 04:00 Clumped Platelets Few 08/22/21 04:00 Plt Clumps, EDTA Not Reportable 08/22/21 04:00 Large Platelets Not Reportable 08/22/21 04:00 Giant Platelets Not Reportable 08/22/21 04:00 Platelet Satelliting Not Reportable 08/22/21 04:00 Plt Morphology Comment Not Reportable 08/22/21 04:00 RBC Morphology Not Reportable 08/22/21 04:00 Dimorphic RBCs Not Reportable 08/22/21 04:00 Polychromasia Not Reportable 08/22/21 04:00 Hypochromasia Few 08/22/21 04:00 Poikilocytosis Not Reportable 08/22/21 04:00 Anisocytosis 1+ 08/22/21 04:00 Microcytosis Not Reportable 08/22/21 04:00 Macrocytosis Not Reportable 08/22/21 04:00 Spherocytes Not Reportable 08/22/21 04:00 Pappenheimer Bodies Not Reportable 08/22/21 04:00 Sickle Cells Not Reportable 08/22/21 04:00 Target Cells Not Reportable 08/22/21 04:00 Tear Drop Cells Not Reportable 08/22/21 04:00 Ovalocytes Not Reportable 08/22/21 04:00 Helmet Cells Not Reportable 08/22/21 04:00 [place] Bodies Not Reportable 08/22/21 04:00 [place] Rings Not Reportable 08/22/21 04:00 [place] Cells Not Reportable 08/22/21 04:00 Bite Cells Not Reportable 08/22/21 04:00 Crenated Cell Not Reportable 08/22/21 04:00 Elliptocytes Not Reportable 08/22/21 04:00 Acanthocytes (Spur) Not Reportable 08/22/21 04:00 Rouleaux Not Reportable 08/22/21 04:00 Hemoglobin C Crystals Not Reportable 08/22/21 04:00 Schistocytes Not Reportable 08/22/21 04:00 Malaria parasites Not Reportable 08/22/21 04:00 Gurmeet Bodies Not Reportable 08/22/21 04:00 Hem Pathologist Commnt No 08/22/21 04:00 PT 14.5 Sec. (12.2-14.9) 08/12/21 21:41 INR 1.08 (0.87-1.13) 08/12/21 21:41 APTT 29.9 Sec. (24.2-36.6) 08/10/21 05:20 D-Dimer 852.47 ng/mlDDU (0-234) H 07/29/21 07:17 ABG pH 7.401 (7.320-7.450) 08/19/21 13:45 POC ABG pCO2 39.8 mmHg (32.0-48.0) 08/19/21 13:45 ABG pCO2 46.6 mm Hg 08/17/21 21:23 POC ABG pO2 145.3 mmHg (83-108) H 08/19/21 13:45 ABG pO2 122.5 mm Hg (80.0-90.0) H 08/17/21 21:23 POC ABG HCO3 24.2 08/19/21 13:45 ABG HCO3 24.4 mmol/L (20.0-26.0) 08/17/21 21:23 ABG O2 Saturation 99.0 (0-100) 08/19/21 13:45 ABG O2 Content 10.6 (0.0-44) 08/17/21 21:23 POC ABG Base Excess -0.5 08/19/21 13:45 ABG Base Excess -1.4 mmol/L (-2.0-3.0) 08/17/21 21:23 ABG Hemoglobin 10.0 (12.0-17.5) L 08/19/21 13:45 ABG Oxyhemoglobin 98.4 (94-98) H 08/19/21 13:45 ABG Carboxyhemoglobin 1.8 % (0.0-5.0) 08/17/21 21:23 ABG Methemoglobin 0.3 (0.0-1.5) 08/19/21 13:45 ABG Sodium 134.0 mmol/L (136.0-145.0) L 08/19/21 13:45 ABG Potassium 4.2 mmol/L (3.40-4.50) 08/19/21 13:45 ABG Chloride 102.0 mmol/L (98-107) 08/19/21 13:45 ABG Glucose 141 mg/dL (65-95) H 08/19/21 13:45 Oxyhemoglobin 96.2 % (95.0-99.0) 08/17/21 21:23 Carboxyhemoglobin 0.3 (0.5-1.5) L 08/19/21 13:45 FiO2 30 % 08/17/21 21:23 FiO2 % 30.0 08/19/21 13:45 Sodium 139 mmol/L (137-145) 08/22/21 Unknown Potassium 5.0 mmol/L (3.6-5.0) 08/22/21 Unknown Chloride 103.6 mmol/L (98-107) 08/22/21 Unknown Carbon Dioxide 25 mmol/L (22-30) 08/22/21 Unknown Anion Gap 15 mmol/L 08/22/21 Unknown BUN 52 mg/dL (7-17) H 08/22/21 Unknown Creatinine 0.7 mg/dL (0.6-1.2) 08/22/21 Unknown Estimated GFR > 60 ml/min 08/22/21 Unknown BUN/Creatinine Ratio 74 % 08/22/21 Unknown Glucose 137 mg/dL (65-100) H 08/22/21 Unknown POC Glucose 93 mg/dL (70-105) 08/22/21 17:46 Lactic Acid 2.10 mmol/L (0.7-2.0) H* 08/03/21 15:11 Calcium 8.7 mg/dL (8.4-10.2) 08/22/21 Unknown Phosphorus 4.10 mg/dL (2.5-4.5) 08/08/21 06:00 Magnesium 1.70 mg/dL (1.7-2.3) 08/12/21 21:41 Total Bilirubin 0.20 mg/dL (0.1-1.2) 08/22/21 Unknown AST 29 units/L (5-40) 08/22/21 Unknown ALT 51 units/L (7-56) 08/22/21 Unknown Alkaline Phosphatase 114 units/L (35-129) 08/22/21 Unknown Serum Total Protein See scanned result 08/03/21 04:17 Total Protein 6.0 g/dL (6.3-8.2) L D 08/22/21 Unknown Albumin 2.7 g/dL (3.9-5) L 08/22/21 Unknown Albumin/Globulin Ratio 0.8 % 08/22/21 Unknown [id number] See scanned result 08/03/21 04:17 [id number]-[id number] See scanned result 08/03/21 04:17 Beta Globulins See scanned result 08/03/21 04:17 Gamma Globulins See scanned result 08/03/21 04:17 Abnorm Protein Band 1 See scanned result 08/03/21 04:17 Abnorm Protein Band 2 See scanned result 08/03/21 04:17 Abnorm Protein Band 3 See scanned result 08/03/21 04:17 PEP Interpretation See scanned result 08/03/21 04:17 Triglycerides 207 mg/dL (2-149) H 08/20/21 16:55 Lipase 56 units/L (13-60) 08/20/21 16:55 Carcinoembryonic Ag <0.5 ng/mL (0.0-2.4) 07/31/21 04:45 Arterial Blood Glucose 141 mg/dL (65-95) H 08/19/21 13:45 Arterial Blood Ionized Calcium 4.6 mg/dL (4.6-5.3) 08/17/21 07:27 Urine Color Yellow (Yellow) 08/08/21 20:27 Urine Turbidity Slightly-cloudy (Clear) 08/08/21 20: Urine pH 5.0 (5.0-7.0) 08/08/21: Ur Specific [place] 1.014 (1.003-1.030) 08/08/21 20: Urine Protein 30 mg/dl mg/dL (Negative) 08/08/21 20: Urine Glucose (UA) Neg mg/dL (Negative) 08/08/21 20: Urine Ketones Neg mg/dL (Negative) 08/08/21 20: Urine Blood Mod (Negative) 08/08/21 20: Urine Nitrite Neg (Negative) 08/08/21 20: Urine Bilirubin Neg (Negative) 08/08/21 20: Urine Urobilinogen < 2.0 mg/dL (<2.0) 08/08/21 20: Ur Leukocyte Esterase Neg (Negative) 08/08/21 20: Urine WBC (Auto) 6.0 /HPF (0.0-6.0) 08/08/21 20: Urine RBC (Auto) 6.0 /HPF (0.0-6.0) 08/08/21 20: U Epithel Cells (Auto) < 1.0 /HPF (0-13.0) 08/08/21 20: Urine Bacteria (Auto) 1+ /HPF (Negative) 08/08/21 20: Urine Mucus Few /HPF 08/08/21 20: Urine Yeast (Budding) 1+ /HPF 08/08/21 20: Urine Creatinine 125.6 mg/dL (0.1-20.0) H 08/01/21 Unknown Urine Sodium 12 mmol/L 08/01/21 Unknown Proteinase 3 (PR3) Ab See scanned result 08/02/21 15:40 Myeloperoxidase Ab See scanned result 08/02/21 15:40 Double Strand DNA Ab 1 IU/mL (<=4) 08/02/21 15:40 Coronavirus (PCR) Negative (Negative) 07/29/21 07:58 Hepatitis A IgM Ab Non-reactive (NonReactive) 08/02/21 15:40 Hep Bs Antigen Nonreactive (Negative) 08/02/21 15:40 Hep B Core IgM Ab Non-reactive (NonReactive) 08/02/21 15:40 Hepatitis C Antibody Non-reactive (NonReactive) 08/02/21 15:40 AFB Identification Negative 08/02/21 14:30 Blood Type A POSITIVE 08/18/21 05:10 Antibody Screen Negative 08/18/21 05:10 Crossmatch See Detail 08/18/21 05:10 Elizabeth/IV: Voiding Method Indwelling Catheter Active Medications - Current Medications Current Medications: Generic Name Dose Route Start Last Admin Trade Name Freq PRN Reason Stop Dose Admin Acetaminophen 650 mg 07/28/21 02:11 08/18/21 22:02 Acetaminophen 325 Mg Tab PO 650 mg Q6H PRN Administration Pain MILD(1-3)/Fever >100.5/GARCIA Albuterol/Ipratropium 1 ampul 07/28/21 14:00 08/22/21 16:36 Ipratropium/Albuterol Sulfate 3 Ml Ampul.Neb IH 1 ampul TID DEMIAN Administration Lipase/Protease/Amylase 1 each 07/29/21 13:01 Lipase 10,500/Protease 25,000/Amylase 43,750 (Units) Dr Campoverde FEEDTUBE PRN PRN For Clogged Feeding Tube Arformoterol Tartrate 15 mcg 07/28/21 20:00 08/22/21 07:39 Arformoterol 15 Mcg/2 Ml Nebu IH 15 mcg Q12HRT DEMIAN Administration Bisacodyl 10 mg 08/07/21 09:50 08/20/21 09:22 Bisacodyl 10 Mg Rect Supp [place] 10 mg QDAY PRN Administration Constip unreliev by MOM/or NPO Budesonide 0.5 mg 07/28/21 20:00 08/22/21 07:39 Budesonide 0.5 Mg/2 Ml Nebu IH 0.5 mg Q12HRT DEMIAN Administration Dextrose 50 ml 07/28/21 02:11 08/10/21 18:05 Dextrose 50% In Water (25gm) 50 Ml Syringe IV 20 ml Q30MIN PRN Administration Hypoglycemia Protocol Enoxaparin Sodium 40 mg 08/19/21 10:00 08/22/21 10:41 Enoxaparin 40 Mg/0.4 Ml Inj SUB-Q 40 mg QDAY DEMIAN Administration Protocol Famotidine 20 mg 08/15/21 10:00 08/22/21 10:36 Famotidine 20 Mg Tab FEEDTUBE 20 mg BID DEMIAN Administration Fentanyl 50 mcg 07/29/21 10:42 08/22/21 07:15 Fentanyl 100 Mcg/2 Ml Inj IV 50 mcg Q10MIN PRN Administration ANALGESIA Hydralazine HCl 10 mg 07/30/21 14:52 08/19/21 12:12 Hydralazine 20 Mg/1 Ml Inj IV 10 mg Q6H PRN Administration SBP > 165 Hydrophilic Ointment 1 applic 07/29/21 10:42 Lip Therapy Vaseline TP Q2HR PRN Dry Lips Fentanyl Citrate 2,000 mcg in 100 mls @ 5.35 mls/hr 07/29/21 11:00 08/22/21 14:59 Fentanyl Drip Premix IV 4 mcg/kg/hr TITR DEMIAN 21.4 mls/hr Administration Protocol 1 MCG/KG/HR Midazolam HCl 100 mg/ Sodium 100 mls @ 1 mls/hr 08/20/21 17:00 08/22/21 14:58 Chloride IV 2 mg/hr TITR DEMIAN 2 mls/hr Administration Protocol 1 MG/HR Insulin Human Lispro 0 unit 07/29/21 12:00 08/22/21 18:07 Insulin Lispro 100 Unit/Ml SUB-Q Not Given Q6HR [facility] Protocol Magnesium Hydroxide 30 ml 07/28/21 02:11 08/20/21 09:21 Magnesium Hydroxide (Mom) Oral Liqd Udc PO 30 ml Q4H PRN Administration Constipation Midazolam HCl 2 mg 08/20/21 16:15 08/20/21 18:33 Midazolam 2 Mg/2 Ml Inj IV 2 mg Q10MIN PRN Administration Sedation Multi-Ingred Cream/Lotion/Oil/Oint 1 applic 07/29/21 10:42 Mineral Oil/Petrolatum, White Ophth Oint 3.5 Gm OU Q4HR PRN Dry Eye(s) Polyethylene Glycol 17 gm 08/11/21 16:00 08/22/21 10:24 Polyethylene Glycol 3350 17 Gm Powder PO 17 gm QDAY DEMIAN Administration Quetiapine Fumarate 250 mg 08/20/21 16:19 08/22/21 10:23 Quetiapine 100 Mg Tab PO 250 mg BID DEMIAN Administration Senna/Docusate Sodium 1 tab 08/11/21 13:00 08/22/21 14:57 Sennosides/Docusate Sodium 8.6/50 Mg Tab FEEDTUBE 1 tab Q8H DEMIAN Administration Simple Syrup 15 ml 07/29/21 13:01 Simple Syrup 15 Ml FEEDTUBE PRN PRN Hypoglycemia Simple Syrup 30 ml 07/29/21 13:01 Simple Syrup 15 Ml FEEDTUBE PRN PRN Hypoglycemia Sodium Bicarbonate 325 mg 07/29/21 13:01 Sodium Bicarbonate 325 Mg Tab FEEDTUBE PRN PRN For Clogged Feeding Tube Sodium Chloride 10 ml 07/28/21 10:00 08/22/21 10:31 Sodium Chloride 0.9% 10 Ml Flush Syringe IV 10 ml BID DEMIAN Administration Sodium Chloride 10 ml 07/28/21 02:05 Sodium Chloride 0.9% 10 Ml Flush Syringe IV PRN PRN LINE FLUSH Nutrition/Malnutrition Assess - Dietary Evaluation Nutrition/Malnutrition Findings: Nutrition Notes Start: 07/28/21 14:44 Freq: Status: Active Protocol: Document 08/16/21 15:09 KAREY (Rec: 08/16/21 15:16 KAREY [id number]) Nutrition Notes Initial or Follow up Reassessment Current Diagnosis Diabetes,Hypertension, Respiratory Failure, Hyperlipidemia Current Diet TF - Vital AF 1.2 at 50ml/hr Labs/Tests Na 144 Pertinent Medications Senna, Miralax, Dulcolax Height 5 ft Weight 107 kg [place] Body Weight (kg) 45.45 BMI 46.0 Weight Status Morbidly Obese Subjective/Other Information Spoke with RN via phone at 15: 08. Pt still has not had a BM . Medications given today. Pt tolerating TF at goal rate and remains on vent support. Percent of energy/protein needs met: 78% energy 79% pro Burn Absent Trauma Absent GI Symptoms Constipation #1 Nutrition Diagnosis Inadequate oral intake Diagnosis Progress(for reassessment Continues documentation) Is patient on ventilator? Yes Is Patient Ambulatory and/or Out of Bed No REE-([facility]-confined to bed) 1842.852 Kcal/Kg value to use for calculation 13 Approximate Energy Requirements Using 1391 kcal/Kg Calculation Used for Recommendations Kcal/kg Additional Notes Protein: (up to 2.5g/kg IBW) up to 114g Fluid: 1 ml/kcal or per MD Nutrition Intervention Nutrition Support: Continue Vital AF 1.2 at 50 ml /hr. Per RN, pt receiving 200ml water flush q4h. Kcal 1,440 Protein (gm) 90 Fluid (mL) 973 Goal #1 TF tolerance Goal #2 TF to meet at least 75% energy and pro needs Follow-Up By: 08/23/21 Additional Comments F/U: stable TF, BM, vent status
--- NOTE | 2021-08-22 13:25 | Hem/Onc Progress Note ---
Subjective Date of service: 08/22/21 Interval history: oncology f/u data review dx metastatic breast cancer 66yo woman with h/o metastatic breast cancer affecting lungs bronchoscopy biopsy-->carcinoma c/w breast primary, ER/NJ/H2N neg, TTf1 neg s/p trach and pg tube 08/10/21-->intervention for bleeding at Trach 08/12/21 has been on minimal oxygen, but still requiring sedation has had arrythmia WBC 7.8 H/H 8.2/25.4 Plt 465 IMP: metastatic breast cancer with lung and mediastinal LN mets recent L leg prox DVT-on lovenox "full dose" bid for weeks not a good candidate for chemotherapy, but chest tumor radiation may be possible unable to safely stop sedation so far mod severe anemia partly due to recent bleeding Spep results negative, c/w acute inflammatory process and hypogammaglobulinemia Thrombocytosis reactive to acute inflammatory process REC: discussing transfer to LT[facility]; consider transfer to [place] I have tried to contact her oncologist Dr. Wade low dose lovenox 40mg daily end of life discussion is appropriate, even though she has received aggressive interventions DATA REVIEWED BELOW Laboratory Last Values WBC 7.8 K/mm3 (4.5-11.0) 08/22/21 04:00 RBC 2.80 M/mm3 (3.65-5.03) L 08/22/21 04:00 Hgb 8.2 gm/dl (10.1-14.3) L 08/22/21 04:00 Hct 25.4 % (30.3-42.9) L 08/22/21 04:00 MCV 91 fl (79-97) 08/22/21 04:00 MCH 29 pg (28-32) 08/22/21 04:00 MCHC 32 % (30-34) 08/22/21 04:00 RDW 16.9 % (13.2-15.2) H 08/22/21 04:00 Plt Count 465 K/mm3 (140-440) H 08/22/21 04:00 Lymph % (Auto) 12.5 % (13.4-35.0) L 08/15/21 Unknown Hill % (Auto) 5.9 % (0.0-7.3) 08/15/21 Unknown Eos % (Auto) 0.9 % (0.0-4.3) 08/15/21 Unknown Baso % (Auto) 0.3 % (0.0-1.8) 08/15/21 Unknown Lymph # (Auto) 1.0 K/mm3 (1.2-5.4) L 08/15/21 Unknown Hill # (Auto) 0.5 K/mm3 (0.0-0.8) 08/15/21 Unknown Eos # (Auto) 0.1 K/mm3 (0.0-0.4) 08/15/21 Unknown Baso # (Auto) 0.0 K/mm3 (0.0-0.1) 08/15/21 Unknown Add Manual Diff Complete 08/05/21 04:50 Total Counted 100 08/05/21 04:50 Seg Neutrophils % 80.4 % (40.0-70.0) H 08/15/21 Unknown Seg Neuts % (Manual) 75.0 % (40.0-70.0) H 08/05/21 04:50 Band Neutrophils % 8.0 % 08/05/21 04:50 Lymphocytes % (Manual) 2.0 % (13.4-35.0) L 08/05/21 04:50 Monocytes % (Manual) 5.0 % (0.0-7.3) 08/05/21 04:50 Eosinophils % (Manual) 1.0 % (0.0-4.3) 08/05/21 04:50 Metamyelocytes % 6.0 % 08/05/21 04:50 Myelocytes % 3.0 % 08/05/21 04:50 Nucleated RBC % Not Reportable 08/05/21 04:50 Seg Neutrophils # 6.4 K/mm3 (1.8-7.7) 08/15/21 Unknown Seg Neutrophils # Man 14.3 K/mm3 (1.8-7.7) H 08/05/21 04:50 Band Neutrophils # 1.5 K/mm3 08/05/21 04:50 Lymphocytes # (Manual) 0.4 K/mm3 (1.2-5.4) L 08/05/21 04:50 Abs React Lymphs (Man) 0.0 K/mm3 08/05/21 04:50 Monocytes # (Manual) 1.0 K/mm3 (0.0-0.8) H 08/05/21 04:50 Eosinophils # (Manual) 0.2 K/mm3 (0.0-0.4) 08/05/21 04:50 Basophils # (Manual) 0.0 K/mm3 (0.0-0.1) 08/05/21 04:50 Metamyelocytes # 1.1 K/mm3 08/05/21 04:50 Myelocytes # 0.6 K/mm3 08/05/21 04:50 Promyelocytes # 0.0 K/mm3 08/05/21 04:50 Blast Cells # 0.0 K/mm3 08/05/21 04:50 WBC Morphology Not Reportable 08/05/21 04:50 Hypersegmented Neuts Not Reportable 08/05/21 04:50 Hyposegmented Neuts Not Reportable 08/05/21 04:50 Hypogranular Neuts Not Reportable 08/05/21 04:50 Smudge Cells Not Reportable 08/05/21 04:50 Toxic Granulation Not Reportable 08/05/21 04:50 Toxic Vacuolation Not Reportable 08/05/21 04:50 Dohle Bodies Not Reportable 08/05/21 04:50 Pelger-Huet Anomaly Not Reportable 08/05/21 04:50 Beryl Rods Not Reportable 08/05/21 04:50 Platelet Estimate Consistent w auto 08/05/21 04:50 Clumped Platelets Not Reportable 08/05/21 04:50 Plt Clumps, EDTA Not Reportable 08/05/21 04:50 Large Platelets Not Reportable 08/05/21 04:50 Giant Platelets Not Reportable 08/05/21 04:50 Platelet Satelliting Not Reportable 08/05/21 04:50 Plt Morphology Comment Not Reportable 08/05/21 04:50 RBC Morphology Not Reportable 08/05/21 04:50 Dimorphic RBCs Not Reportable 08/05/21 04:50 Polychromasia Not Reportable 08/05/21 04:50 Hypochromasia Not Reportable 08/05/21 04:50 Poikilocytosis Not Reportable 08/05/21 04:50 Anisocytosis Not Reportable 08/05/21 04:50 Microcytosis Not Reportable 08/05/21 04:50 Macrocytosis Not Reportable 08/05/21 04:50 Spherocytes Not Reportable 08/05/21 04:50 Pappenheimer Bodies Not Reportable 08/05/21 04:50 Sickle Cells Not Reportable 08/05/21 04:50 Target Cells Not Reportable 08/05/21 04:50 Tear Drop Cells Not Reportable 08/05/21 04:50 Ovalocytes Few 08/05/21 04:50 Helmet Cells Not Reportable 08/05/21 04:50 Paul-Saxman Bodies Not Reportable 08/05/21 04:50 Empire Rings Not Reportable 08/05/21 04:50 Estelita Cells Not Reportable 08/05/21 04:50 Bite Cells Not Reportable 08/05/21 04:50 Crenated Cell Not Reportable 08/05/21 04:50 Elliptocytes Not Reportable 08/05/21 04:50 Acanthocytes (Spur) Not Reportable 08/05/21 04:50 Rouleaux Not Reportable 08/05/21 04:50 Hemoglobin C Crystals Not Reportable 08/05/21 04:50 Schistocytes Not Reportable 08/05/21 04:50 Malaria parasites Not Reportable 08/05/21 04:50 Gurmeet Bodies Not Reportable 08/05/21 04:50 Hem Pathologist Commnt No 08/05/21 04:50 PT 14.5 Sec. (12.2-14.9) 08/12/21 21:41 INR 1.08 (0.87-1.13) 08/12/21 21:41 APTT 29.9 Sec. (24.2-36.6) 08/10/21 05:20 D-Dimer 852.47 ng/mlDDU (0-234) H 07/29/21 07:17 ABG pH 7.401 (7.320-7.450) 08/19/21 13:45 POC ABG pCO2 39.8 mmHg (32.0-48.0) 08/19/21 13:45 ABG pCO2 46.6 mm Hg 08/17/21 21:23 POC ABG pO2 145.3 mmHg (83-108) H 08/19/21 13:45 ABG pO2 122.5 mm Hg (80.0-90.0) H 08/17/21 21:23 POC ABG HCO3 24.2 08/19/21 13:45 ABG HCO3 24.4 mmol/L (20.0-26.0) 08/17/21 21:23 ABG O2 Saturation 99.0 (0-100) 08/19/21 13:45 ABG O2 Content 10.6 (0.0-44) 08/17/21 21:23 POC ABG Base Excess -0.5 08/19/21 13:45 ABG Base Excess -1.4 mmol/L (-2.0-3.0) 08/17/21 21:23 ABG Hemoglobin 10.0 (12.0-17.5) L 08/19/21 13:45 ABG Oxyhemoglobin 98.4 (94-98) H 08/19/21 13:45 ABG Carboxyhemoglobin 1.8 % (0.0-5.0) 08/17/21 21: ABG Methemoglobin 0.3 (0.0-1.5) 08/19/21 13:45 ABG Sodium 134.0 mmol/L (136.0-145.0) L 08/19/21 13:45 ABG Potassium 4.2 mmol/L (3.40-4.50) 08/19/21 13:45 ABG Chloride 102.0 mmol/L (98-107) 08/19/21 13:45 ABG Glucose 141 mg/dL (65-95) H 08/19/21 13:45 Oxyhemoglobin 96.2 % (95.0-99.0) 08/17/21 21:23 Carboxyhemoglobin 0.3 (0.5-1.5) L 08/19/21 13:45 FiO2 30 % 08/17/21 21:23 FiO2 % 30.0 08/19/21 13:45 Sodium 139 mmol/L (137-145) 08/22/21 Unknown Potassium 5.0 mmol/L (3.6-5.0) 08/22/21 Unknown Chloride 103.6 mmol/L (98-107) 08/22/21 Unknown Carbon Dioxide 25 mmol/L (22-30) 08/22/21 Unknown Anion Gap 15 mmol/L 08/22/21 Unknown BUN 52 mg/dL (7-17) H 08/22/21 Unknown Creatinine 0.7 mg/dL (0.6-1.2) 08/22/21 Unknown Estimated GFR > 60 ml/min 08/22/21 Unknown BUN/Creatinine Ratio 74 % 08/22/21 Unknown Glucose 137 mg/dL (65-100) H 08/22/21 Unknown POC Glucose 102 mg/dL (70-105) 08/22/21 11:15 Lactic Acid 2.10 mmol/L (0.7-2.0) H* 08/03/21 15:11 Calcium 8.7 mg/dL (8.4-10.2) 08/22/21 Unknown Phosphorus 4.10 mg/dL (2.5-4.5) 08/08/21 06:00 Magnesium 1.70 mg/dL (1.7-2.3) 08/12/21 21:41 Total Bilirubin 0.20 mg/dL (0.1-1.2) 08/22/21 Unknown AST 29 units/L (5-40) 08/22/21 Unknown ALT 51 units/L (7-56) 08/22/21 Unknown Alkaline Phosphatase 114 units/L (35-129) 08/22/21 Unknown Serum Total Protein See scanned result 08/03/21 04:17 Total Protein 6.0 g/dL (6.3-8.2) L D 08/22/21 Unknown Albumin 2.7 g/dL (3.9-5) L 08/22/21 Unknown Albumin/Globulin Ratio 0.8 % 08/22/21 Unknown [id number] See scanned result 08/03/21 04:17 [id number] See scanned result 08/03/21 04:17 Beta Globulins See scanned result 08/03/21 04:17 Gamma Globulins See scanned result 08/03/21 04:17 Abnorm Protein Band 1 See scanned result 08/03/21 04:17 Abnorm Protein Band 2 See scanned result 08/03/21 04:17 Abnorm Protein Band 3 See scanned result 08/03/21 04:17 PEP Interpretation See scanned result 08/03/21 04:17 Triglycerides 207 mg/dL (2-149) H 08/20/21 16:55 Lipase 56 units/L (13-60) 08/20/21 16:55 Carcinoembryonic Ag <0.5 ng/mL (0.0-2.4) 07/31/21 04:45 Arterial Blood Glucose 141 mg/dL (65-95) H 08/19/21 13:45 Arterial Blood Ionized Calcium 4.6 mg/dL (4.6-5.3) 08/17/21 07:27 Urine Color Yellow (Yellow) 08/08/21 20: Urine Turbidity Slightly-cloudy (Clear) 08/08/21 20: Urine pH 5.0 (5.0-7.0) 08/08/21 20:27 Ur Specific [place] 1.014 (1.003-1.030) 08/08/21 20: Urine Protein 30 mg/dl mg/dL (Negative) 08/08/21 20: Urine Glucose (UA) Neg mg/dL (Negative) 08/08/21 20: Urine Ketones Neg mg/dL (Negative) 08/08/21 20: Urine Blood Mod (Negative) 08/08/21 20: Urine Nitrite Neg (Negative) 08/08/21 20: Urine Bilirubin Neg (Negative) 08/08/21 20: Urine Urobilinogen < 2.0 mg/dL (<2.0) 08/08/21 20:27 Ur Leukocyte Esterase Neg (Negative) 08/08/21 20:27 Urine WBC (Auto) 6.0 /HPF (0.0-6.0) 08/08/21 20: Urine RBC (Auto) 6.0 /HPF (0.0-6.0) 08/08/21 20: U Epithel Cells (Auto) < 1.0 /HPF (0-13.0) 08/08/21 20:27 Urine Bacteria (Auto) 1+ /HPF (Negative) 08/08/21 20: Urine Mucus Few /HPF 08/08/21 20: Urine Yeast (Budding) 1+ /HPF 08/08/21 20: Urine Creatinine 125.6 mg/dL (0.1-20.0) H 08/01/21 Unknown Urine Sodium 12 mmol/L 08/01/21 Unknown Proteinase 3 (PR3) Ab See scanned result 08/02/21 15:40 Myeloperoxidase Ab See scanned result 08/02/21 15:40 Double Strand DNA Ab 1 IU/mL (<=4) 08/02/21 15:40 Coronavirus (PCR) Negative (Negative) 07/29/21 07:58 Hepatitis A IgM Ab Non-reactive (NonReactive) 08/02/21 15:40 Hep Bs Antigen Nonreactive (Negative) 08/02/21 15:40 Hep B Core IgM Ab Non-reactive (NonReactive) 08/02/21 15:40 Hepatitis C Antibody Non-reactive (NonReactive) 08/02/21 15:40 AFB Identification Negative 08/02/21 14:30 Blood Type A POSITIVE 08/18/21 05:10 Antibody Screen Negative 08/18/21 05:10 Crossmatch See Detail 08/18/21 05:10 Objective - Constitutional Vitals: Last Vital Signs Temp 98.2 F 08/22/21 12:00 Pulse 83 08/22/21 13:00 Resp 14 08/22/21 13:00 BP 122/71 08/22/21 13:00 Pulse Ox 93 08/22/21 13:00 - Labs Lab Results: Laboratory Results - last 24 hr 08/21/21 08/21/21 08/22/21 17:05 23:39 04:00 WBC 7.8 RBC 2.80 L Hgb 8.2 L Hct 25.4 L MCV 91 MCH 29 MCHC 32 RDW 16.9 H Plt Count 465 H Sodium Potassium Chloride Carbon Dioxide Anion Gap BUN Creatinine Estimated GFR BUN/Creatinine Ratio Glucose POC Glucose 157 H 179 H Calcium Total Bilirubin AST ALT Alkaline Phosphatase Total Protein Albumin Albumin/Globulin Ratio 08/22/21 08/22/21 08/22/21 05:51 11:15 Unknown WBC RBC Hgb Hct MCV MCH MCHC RDW Plt Count Sodium 139 Potassium 5.0 Chloride 103.6 Carbon Dioxide 25 Anion Gap 15 BUN 52 H Creatinine 0.7 Estimated GFR > 60 BUN/Creatinine Ratio 74 Glucose 137 H POC Glucose 134 H 102 Calcium 8.7 Total Bilirubin 0.20 AST 29 ALT 51 Alkaline Phosphatase 114 Total Protein 6.0 L D Albumin 2.7 L Albumin/Globulin Ratio 0.8 Medications & Allergies - Medications Allergies/Adverse Reactions: Allergies No Known Allergies Allergy (Verified 12/24/18 11:45) Home Medications: Home Medications Medication Instructions Recorded Confirmed Last Taken Type traMADoL [Ultram 50 MG tab] 50 mg PO Q6HR PRN #15 tablet 01/25/18 Unknown Rx Active Medications: Generic Name Dose Route Start Last Admin Trade Name Freq PRN Reason Stop Dose Admin Acetaminophen 650 mg 07/28/21 02:11 08/18/21 22:02 Acetaminophen 325 Mg Tab PO 650 mg Q6H PRN Administration Pain MILD(1-3)/Fever >100.5/GARCIA Albuterol/Ipratropium 1 ampul 07/28/21 14:00 08/22/21 07:39 Ipratropium/Albuterol Sulfate 3 Ml Ampul.Neb IH 1 ampul TID DEMIAN Administration Lipase/Protease/Amylase 1 each 07/29/21 13:01 Lipase 10,500/Protease 25,000/Amylase 43,750 (Units) Dr Campoverde FEEDTUBE PRN PRN For Clogged Feeding Tube Arformoterol Tartrate 15 mcg 07/28/21 20:00 08/22/21 07:39 Arformoterol 15 Mcg/2 Ml Nebu IH 15 mcg Q12HRT DEMIAN Administration Bisacodyl 10 mg 08/07/21 09:50 08/20/21 09:22 Bisacodyl 10 Mg Rect Supp [place] 10 mg QDAY PRN Administration Constip unreliev by MOM/or NPO Budesonide 0.5 mg 07/28/21 20:00 08/22/21 07:39 Budesonide 0.5 Mg/2 Ml Nebu IH 0.5 mg Q12HRT DEMIAN Administration Dextrose 50 ml 07/28/21 02:11 08/10/21 18:05 Dextrose 50% In Water (25gm) 50 Ml Syringe IV 20 ml Q30MIN PRN Administration Hypoglycemia Protocol Enoxaparin Sodium 40 mg 08/19/21 10:00 08/22/21 10:41 Enoxaparin 40 Mg/0.4 Ml Inj SUB-Q 40 mg QDAY DEMIAN Administration Protocol Famotidine 20 mg 08/15/21 10:00 08/22/21 10:36 Famotidine 20 Mg Tab FEEDTUBE 20 mg BID DEMIAN Administration Fentanyl 50 mcg 07/29/21 10:42 08/22/21 07:15 Fentanyl 100 Mcg/2 Ml Inj IV 50 mcg Q10MIN PRN Administration ANALGESIA Hydralazine HCl 10 mg 07/30/21 14:52 08/19/21 12:12 Hydralazine 20 Mg/1 Ml Inj IV 10 mg Q6H PRN Administration SBP > 165 Hydrophilic Ointment 1 applic 07/29/21 10:42 Lip Therapy Vaseline TP Q2HR PRN Dry Lips Fentanyl Citrate 2,000 mcg in 100 mls @ 5.35 mls/hr 07/29/21 11:00 08/22/21 10:39 Fentanyl Drip Premix IV 4 mcg/kg/hr TITR DEMIAN 21.4 mls/hr Administration Protocol 1 MCG/KG/HR Norepinephrine 4 mg in 250 mls @ 7.5 mls/hr 07/29/21 21:00 Levophed Drip 4 Mg/Ns 250 Ml IV TITR DEMIAN Protocol 2 MCG/MIN Midazolam HCl 100 mg/ Sodium 100 mls @ 1 mls/hr 08/20/21 17:00 08/21/21 15:41 Chloride IV 2 mg/hr TITR DEMIAN 2 mls/hr Titration Protocol 1 MG/HR Insulin Human Lispro 0 unit 07/29/21 12:00 08/22/21 13:13 Insulin Lispro 100 Unit/Ml SUB-Q Not Given Q6HR [facility] Protocol Magnesium Hydroxide 30 ml 07/28/21 02:11 08/20/21 09:21 Magnesium Hydroxide (Mom) Oral Liqd Udc PO 30 ml Q4H PRN Administration Constipation Midazolam HCl 2 mg 08/20/21 16:15 08/20/21 18:33 Midazolam 2 Mg/2 Ml Inj IV 2 mg Q10MIN PRN Administration Sedation Multi-Ingred Cream/Lotion/Oil/Oint 1 applic 07/29/21 10:42 Mineral Oil/Petrolatum, White Ophth Oint 3.5 Gm OU Q4HR PRN Dry Eye(s) Oxycodone HCl 5 mg 08/18/21 15:45 08/18/21 21:58 Oxycodone 5 Mg Tab PO 5 mg Q4H PRN Administration Pain, Moderate (4-6) Polyethylene Glycol 17 gm 08/11/21 16:00 08/22/21 10:24 Polyethylene Glycol 3350 17 Gm Powder PO 17 gm QDAY DEMIAN Administration Quetiapine Fumarate 250 mg 08/20/21 16:19 08/22/21 10:23 Quetiapine 100 Mg Tab PO 250 mg BID DEMIAN Administration Senna/Docusate Sodium 1 tab 08/11/21 13:00 08/21/21 21:55 Sennosides/Docusate Sodium 8.6/50 Mg Tab FEEDTUBE 1 tab Q8H DEMIAN Administration Simple Syrup 15 ml 07/29/21 13:01 Simple Syrup 15 Ml FEEDTUBE PRN PRN Hypoglycemia Simple Syrup 30 ml 07/29/21 13:01 Simple Syrup 15 Ml FEEDTUBE PRN PRN Hypoglycemia Sodium Bicarbonate 325 mg 07/29/21 13:01 Sodium Bicarbonate 325 Mg Tab FEEDTUBE PRN PRN For Clogged Feeding Tube Sodium Chloride 10 ml 07/28/21 10:00 08/22/21 10:31 Sodium Chloride 0.9% 10 Ml Flush Syringe IV 10 ml BID DEMIAN Administration Sodium Chloride 10 ml 07/28/21 02:05 Sodium Chloride 0.9% 10 Ml Flush Syringe IV PRN PRN LINE FLUSH
--- NOTE | 2021-08-22 14:12 | Consultation ---
History of Present Illness - Reason for Consult Consult date: 08/22/21 Left lower extremity DVT Requesting physician: SHYLA MARKS - History of Present Illness 66-year-old female with hypertension, diabetes, hyperlipidemia, COPD, and metastatic carcinoma who presented to the hospital with acute hypoxic respiratory failure with COPD exacerbation, pneumonia, and left lower extremity DVT. During hospitalization, she has had tracheostomy tube placement and PEG tube placement. She was found to have metastatic breast cancer to the lungs. Vascular consulted about left lower extremity DVT. Left lower extremity DVT was noted on 07/29/2021 ultrasound demonstrating left popliteal vein thrombus. Patient has been on anticoagulation since then. Vascular consulted. Past History Past Medical History: COPD, diabetes, hypertension, hyperlipidemia, other (History of right breast cancer) Past Surgical History: cholecystectomy, hysterectomy, mastectomy, tonsillectomy Social history: smoking (Current daily smoker) Family history: no significant family history Medications and Allergies Allergies Allergy/AdvReac Type Severity Reaction Status Date / Time No Known Allergies Allergy Verified 12/24/18 11:45 Home Medications Medication Instructions Recorded Confirmed Last Taken Type traMADoL [Ultram 50 MG tab] 50 mg PO Q6HR PRN #15 tablet 01/25/18 Unknown Rx Active Meds: Active Medications Acetaminophen (Acetaminophen 325 Mg Tab) 650 mg PO Q6H PRN PRN Reason: Pain MILD(1-3)/Fever >100.5/GARCIA Last Admin: 08/18/21 22:02 Dose: 650 mg Documented by: Albuterol/Ipratropium (Ipratropium/Albuterol Sulfate 3 Ml Ampul.Neb) 1 ampul IH TID [facility] Last Admin: 08/22/21 07:39 Dose: 1 ampul Documented by: Lipase/Protease/Amylase (Lipase 10,500/Protease 25,000/Amylase 43,750 (Units) Dr Campoverde) 1 each FEEDTUBE PRN PRN PRN Reason: For Clogged Feeding Tube Arformoterol Tartrate (Arformoterol 15 Mcg/2 Ml Nebu) 15 mcg IH Q12HRT [facility] Last Admin: 08/22/21 07:39 Dose: 15 mcg Documented by: Bisacodyl (Bisacodyl 10 Mg Rect Supp) 10 mg RI QDAY PRN PRN Reason: Constip unreliev by MOM/or NPO Last Admin: 08/20/21 09:22 Dose: 10 mg Documented by: Budesonide (Budesonide 0.5 Mg/2 Ml Nebu) 0.5 mg IH Q12HRT DEMIAN Last Admin: 08/22/21 07:39 Dose: 0.5 mg Documented by: Dextrose (Dextrose 50% In Water (25gm) 50 Ml Syringe) 50 ml IV Q30MIN PRN; Protocol PRN Reason: Hypoglycemia Last Admin: 08/10/21 18:05 Dose: 20 ml Documented by: Enoxaparin Sodium (Enoxaparin 40 Mg/0.4 Ml Inj) 40 mg SUB-Q QDAY DEMIAN; Protocol Last Admin: 08/22/21 10:41 Dose: 40 mg Documented by: Famotidine (Famotidine 20 Mg Tab) 20 mg FEEDTUBE BID DEMIAN Last Admin: 08/22/21 10:36 Dose: 20 mg Documented by: Fentanyl (Fentanyl 100 Mcg/2 Ml Inj) 50 mcg IV Q10MIN PRN PRN Reason: ANALGESIA Last Admin: 08/22/21 07:15 Dose: 50 mcg Documented by: Hydralazine HCl (Hydralazine 20 Mg/1 Ml Inj) 10 mg IV Q6H PRN PRN Reason: SBP > 165 Last Admin: 08/19/21 12:12 Dose: 10 mg Documented by: Hydrophilic Ointment (Lip Therapy Vaseline) 1 applic TP Q2HR PRN PRN Reason: Dry Lips Fentanyl Citrate (Fentanyl Drip Premix) 2,000 mcg in 100 mls @ 5.35 mls/hr IV TITR DEMIAN; Protocol Last Admin: 08/22/21 10:39 Dose: 4 mcg/kg/hr, 21.4 mls/hr Documented by: Norepinephrine (Levophed Drip 4 Mg/Ns 250 Ml) 4 mg in 250 mls @ 7.5 mls/hr IV TITR DEMIAN; Protocol Midazolam HCl 100 mg/ Sodium (Chloride) 100 mls @ 1 mls/hr IV TITR DEMIAN; Protocol Last Titration: 08/21/21 15:41 Dose: 2 mg/hr, 2 mls/hr Documented by: Insulin Human Lispro (Insulin Lispro 100 Unit/Ml) 0 unit SUB-Q Q6HR DEMIAN; Protocol Last Admin: 08/22/21 13:13 Dose: Not Given Documented by: Magnesium Hydroxide (Magnesium Hydroxide (Mom) Oral Liqd Udc) 30 ml PO Q4H PRN PRN Reason: Constipation Last Admin: 08/20/21 09:21 Dose: 30 ml Documented by: Midazolam HCl (Midazolam 2 Mg/2 Ml Inj) 2 mg IV Q10MIN PRN PRN Reason: Sedation Last Admin: 08/20/21 18:33 Dose: 2 mg Documented by: Multi-Ingred Cream/Lotion/Oil/Oint (Mineral Oil/Petrolatum, White Ophth Oint 3.5 Gm) 1 applic OU Q4HR PRN PRN Reason: Dry Eye(s) Oxycodone HCl (Oxycodone 5 Mg Tab) 5 mg PO Q4H PRN PRN Reason: Pain, Moderate (4-6) Last Admin: 08/18/21 21:58 Dose: 5 mg Documented by: Polyethylene Glycol (Polyethylene Glycol 3350 17 Gm Powder) 17 gm PO QDAY [facility] Last Admin: 08/22/21 10:24 Dose: 17 gm Documented by: Quetiapine Fumarate (Quetiapine 100 Mg Tab) 250 mg PO BID [facility] Last Admin: 08/22/21 10:23 Dose: 250 mg Documented by: Senna/Docusate Sodium (Sennosides/Docusate Sodium 8.6/50 Mg Tab) 1 tab FEEDTUBE Q8H [facility] Last Admin: 08/21/21 21:55 Dose: 1 tab Documented by: Simple Syrup (Simple Syrup 15 Ml) 15 ml FEEDTUBE PRN PRN PRN Reason: Hypoglycemia Simple Syrup (Simple Syrup 15 Ml) 30 ml FEEDTUBE PRN PRN PRN Reason: Hypoglycemia Sodium Bicarbonate (Sodium Bicarbonate 325 Mg Tab) 325 mg FEEDTUBE PRN PRN PRN Reason: For Clogged Feeding Tube Sodium Chloride (Sodium Chloride 0.9% 10 Ml Flush Syringe) 10 ml IV BID [facility] Last Admin: 08/22/21 10:31 Dose: 10 ml Documented by: Sodium Chloride (Sodium Chloride 0.9% 10 Ml Flush Syringe) 10 ml IV PRN PRN PRN Reason: LINE FLUSH Review of Systems ROS unobtainable: due to mental status Exam - Constitutional Vitals: Temp Pulse Resp BP Pulse Ox 98.2 F 83 14 122/71 93 08/22/21 12:00 08/22/21 13:00 08/22/21 13:00 08/22/21 13:00 08/22/21 13:00 General appearance: Present: other (Intubated and sedated) - EENT ENT: other (Intubated and sedated) - Respiratory Respiratory effort: other (Intubated and sedated) - Extremities Extremities: normal temperature, normal color Extremity abnormal: edema (1+ edema of the bilateral lower extremities) - Psychiatric Psychiatric: other (Intubated and sedated) - Neurologic Neurologic: other (Intubated and sedated) Results - Labs CBC & Chem 7: 08/22/21 04:00 08/22/21 Unknown Labs: Abnormal lab results 08/21/21 08/21/21 08/22/21 Range/Units 17:05 23:39 04:00 RBC 2.80 L (3.65-5.03) M/mm3 Hgb 8.2 L (10.1-14.3) gm/dl Hct 25.4 L (30.3-42.9) % RDW 16.9 H (13.2-15.2) % Plt Count 465 H (140-440) K/mm3 BUN (7-17) mg/dL Glucose (65-100) mg/dL POC Glucose 157 H 179 H (70-105) mg/dL Total Protein (6.3-8.2) g/dL Albumin (3.9-5) g/dL 08/22/21 08/22/21 Range/Units 05:51 Unknown RBC (3.65-5.03) M/mm3 Hgb (10.1-14.3) gm/dl Hct (30.3-42.9) % RDW (13.2-15.2) % Plt Count (140-440) K/mm3 BUN 52 H (7-17) mg/dL Glucose 137 H (65-100) mg/dL POC Glucose 134 H (70-105) mg/dL Total Protein 6.0 L D (6.3-8.2) g/dL Albumin 2.7 L (3.9-5) g/dL - Imaging and Cardiology Venous US: report reviewed, image reviewed Assessment and Plan 66-year-old female with multiple medical issues including metastatic breast cancer who is currently pegged and trached with left lower extremity popliteal vein DVT diagnosed on 07/29/2021. Consulted for evaluation of left lower extremity DVT. Hematology has seen patient and recommended transition from full dose anticoagulation to prophylactic anticoagulation due to concerns about bleeding issues. Has been anticoagulated for approximately 3 weeks. Ordered repeat ultrasound of the left lower extremity which may help guide therapy. If DVT has resolved, prophylactic anticoagulation is quite appropriate. If DVT is still present, then risk/benefit discussion needs to be had to determine if full or prophylactic anticoagulation is more appropriate. Await ultrasound findings.
[2021-08-22] MEDS: SENNOSIDES/DOCUSATE SODIUM 8.6/50 MG TAB FEEDTUBE SCH ×3 (14:57→20:56)
[2021-08-22] MEDS: MIDAZOLAM 100 MG in SODIUM CHLORIDE 0.9% 80 ML IV SCH (14:58)
[2021-08-22 16:04] LABS: Anisocytosis 1+; Band Neutrophils # (Manual) 0.2 K/mm3; Hypochromasia Few; Platelet Clumps Few; Platelet Estimate Consistent w Auto; Total Cells Counted 100
--- NOTE | 2021-08-22 22:56 | Vascular Lab Report ---
DUPLEX DOPPLER LOWER EXTREMITY VEINS, BILATERAL INDICATION / CLINICAL INFORMATION: swelling / DVT TECHNIQUE: Duplex doppler imaging was performed through the veins of both lower extremities using neal ous compression and other maneuvers. COMPARISON: None available. NOTE: Study was difficult due to the patient's body habitus. FINDINGS: RIGHT COMMON FEMORAL VEIN: Negative. RIGHT FEMORAL VEIN: Negative. RIGHT POPLITEAL VEIN: Negative. RIGHT CALF VEINS: Negative. LEFT COMMON FEMORAL VEIN: Negative. LEFT FEMORAL VEIN: Distal portion is not well visualized for evaluation but other portions show no ab normality. LEFT POPLITEAL VEIN: Negative. LEFT CALF VEINS: Negative. ADDITIONAL FINDINGS: None. IMPRESSION: No sonographic evidence for DVT in either lower extremity in a difficult study. Signer Name: Luis Villatoro MD Signed: 08/22/2021 10:52 PM Workstation Name: [id number]
[2021-08-23] MEDS: INSULIN LISPRO 100 UNIT/ML SUB-Q SCH ×4 (00:32→18:06)
[2021-08-23] MEDS: FREE WATER PO SCH ×4 (02:00→14:08)
[2021-08-23] MEDS: fentaNYL DRIP Premix 2,000 MCG/100 ML BAG IV SCH ×5 (04:48→22:42)
[2021-08-23] MEDS: SENNOSIDES/DOCUSATE SODIUM 8.6/50 MG TAB FEEDTUBE SCH ×3 (05:07→21:24)
[2021-08-23 05:26] LABS: Hematocrit 23.9 % (30.3-42.9); Hemoglobin 8.1 gm/dl (10.1-14.3); Mean Corpuscular HGB Conc 34 % (30-34); Mean Corpuscular Volume 90 fl (79-97); Platelet Count 475 K/mm3 (140-440); Red Blood Count 2.65 M/mm3 (3.65-5.03); Red Cell Distribution Width 17.9 % (13.2-15.2)
[2021-08-23 05:47] LABS: Alanine Aminotransferase 58 units/L (7-56); Albumin 2.6 g/dL (3.9-5); Blood Urea Nitrogen 51 mg/dL (7-17); Calcium 8.7 mg/dL (8.4-10.2); Hemolysis Index 0
[2021-08-23 05:58] LABS: BUN/Creatinine Ratio 85
[2021-08-23] MEDS: ARFORMOTEROL 15 MCG/2 ML NEBU IH SCH ×2 (08:22→20:45)
[2021-08-23] MEDS: IPRATROPIUM/ALBUTEROL SULFATE 3 ML AMPUL.NEB IH SCH ×3 (08:22→20:45)
[2021-08-23] MEDS: BUDESONIDE 0.5 MG/2 ML NEBU IH SCH ×2 (08:22→20:45)
[2021-08-23] MEDS: ENOXAPARIN 40 MG/0.4 ML INJ SUB-Q SCH (09:30)
[2021-08-23] MEDS: FAMOTIDINE 20 MG TAB FEEDTUBE SCH ×2 (09:30→21:24)
[2021-08-23] MEDS: QUEtiapine 100 MG TAB PO SCH ×2 (09:30→21:24)
[2021-08-23] MEDS: POLYETHYLENE GLYCOL 3350 17 GM POWDER PO SCH (09:30)
--- NOTE | 2021-08-23 11:31 | Progress Note ---
Assessment and Plan Assessment and plan: #Neuro: Acute metabolic encephalopathy, sedation for agitation - Sedated with fentanyl and versed - Titrate gtts for RASS goal of -2 to -3 - SAT daily as tolerated - Avoid delirium- On Seroquel; follow QT EKG ordered - Bilateral restraints for safety -updated family daily on care -nodding to command today; generalized weakness; PERRL #Cardio: Sinus Tachycardia #s/p cardiac arrest #H/o HTN & HLD - 07/29- Echocardiogram completed-> EF 50 to 55% with mild diastolic dysfunction - SR-ST -no pressors - Continue to monitor blood pressure, MAP goal> 65 and SBP<165 - PRN Hydralazine #Respiratory: Acute hypoxemic respiratory failure 2/2 Lung mass/CA #COPD exacerbation sp trach - 08/10 S/P Tracheostomybronchoscopy biopsy-->carcinoma c/w breast primary, ER/NH/H2N neg, TTf1 neg - Vent setting: AC 30%,8,12,450 see iview for weaning attempts - Vent dependent/ unable to wean off vent due to multiple failed trials vazquez down in the 30s -daily SAT as tolerated - VAP bundle addressed - Aspiration precaution; keep HOB elevated> 45 degree - Continue SPO2 monitoring for SPO2 goal greater than 90% - Continue daily ABG per CCM -continue nebs #GI: Contipation - 08/10 s/p PEGTube insertion - 08/17 KUB: moderate amount of fecal material throughout theh colon - Continue enteral nutrition- TF at goal - Continue bowel regimen: Miralax, senokot, and PRN Ducolax & MOM for constipation BM 08-20 - Continue PPI- Pepcid #: Acute kidney injury likely 2/2 vasomotor nephropathy/pre-renal - 08/01 FeNA 0.13 - Continue to monitor renal function - Continue to monitor electrolytes, replace if necessary - Continue Strict intake and output -free water flushes decreased-na now 139; reevaluate daily - Continue to avoid nephrotoxins, renally dose all medications - Nephrology on consult, appreciate recommendations #ID: Acute sepsis possibly due to PNA vs cardiac event- Resolved - 07/27 B.Cultx2:neg, 07/29 tracheal aspirate:neg, 08/02 Urine cult: neg, 08/08 repeat B.CultX2: neg - trend WBC and temp curve -follow culture data #Heme/Onc: 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 Ordered a repeat ultrasound of the left lower extremity to help guide therapy. Further recommendation per"If DVT has reso lved, prophylactic anticoagulation is quite appropriate. If DVT is still present, then risk/benefit discussion needs to be had to determine if full or prophylactic anticoagulation is more appropriate. US to be repeated and reeval AC strategy -shows no sonographic evidence of DVT. -Will defer to hematology and vascular about changes to anticoagulation. - SCDs to bilateral lower extremities while in bed - Heme/Onc on Consult - Per Heme/Onc patient is "not a good candidate for chemotherapy, but chest tumor radiation may be possible" #Endo: Hyperglycemia, H/o DM; obesity - Continue SSI for a Target blood glucose of 140-180 - Avoid hypoglycemia The high probability of a clinically significant, sudden or life threatening deterioration of the [multi] system(s) required my full and direct attention, intervention and personal management. The aggregate critical care time was [60] minutes. This time is in addition to time spent performing reported procedures but includes the following: [x] Data Review and interpretation [x] Patient assessment and monitoring of vital signs [x] Documentation [x] Medication orders and management Disposition Plan: icu- dispo plan LTAC Total Time Spent with Patient (Minutes): 35 History Interval history: This is a 66-year-old female with HTN, DM, HLD and COPD who presented to emergency department on 07/28 with complaints of difficulty in breathing ongoing for the past few days via EMS. En route she was given Solu-Medrol IV magnesium and albuterol nebulizing treatment. Upon arrival to emergency department patient had multiple rounds of embolizing treatments and was subsequently placed on BiPAP with some improvement. Patient has been fully vaccinated. Work-up in the emergency department revealed CXR suspicious for right-sided pneumonia, nodular density in the left base and increased interstitial markings which may be chronic. Patient was admitted to the hospitalist service with electrolyte imbalances, leukocytosis, COPD exacerbation, hypoxia and possible pneumonia. 66-year-old female with PmHx of HTN, DM, HLD, COPD, ex-smoker, breast CA s/p Rt. mastectomy, now with metastatic to the lung. Initially admitted for acute hypoxic respiratory failure, COPD exacerbation, pneumonia and left lower leg DVT , coded on 07/29 and was transferredn to ICU . Patient is s/p tracheostomy and PEGTube insertion, currently vent dependent/ failed multiples CPAP trial 07/29/2021. Patient seen this morning with Shabbir-Chavira respiration/agonal breathing. CODE BLUE was called and patient was intubated and placed on mechanical ventilation. Patient transferred to ICU. Critical care/pulmonary consulted. Patient currently with AC mode rate of 30, FiO2 100%, PEEP of 12. Continue IV antibiotics. Consult ID and oncology for further evaluation. Patient will likely need bronchoscopy for further evaluation of the lung mass. Doppler ultrasound revealedLLE DVT. Start anticoagulation. 07/30/2021. Patient appears much improved and more responsive this morning. Patient currently with AC mode ventilation rate of 24, tidal volume 450, PEEP of 8 and FiO2 35%. Spontaneous breathing trials with possible extubation today per pulmonary. Bronchoscopy per pulmonary. Continue Lovenox twice daily for DVT. Continue IV antibiotics for sepsis/pneumonia. ID consultation pending. Follow-up CEA, CA 15-3, [place] 2729. 07/31/2021. Echocardiogram reveals left ventricular size and function are normal. EF 50 to 55% with mild diastolic dysfunction. Patient currently with CPAP/PSV trial 11/02. Anticipate extubation today per pulmonary. Bronchoscopy per pulmonary. Continue Lovenox twice daily for DVT. Continue IV antibiotics for sepsis/pneumonia. ID consultation pending. Follow-up CEA, CA 15-3, [place] 2729. 08/01: ALIYAH 08/02: Patient had a bronchoscopy today. Cell count, cytology and AFB sent from samples. Patient remains sedated on fentanyl and Versed. Patient and daughter Rosana were updated. 08/03: [facility] follow-up on [place] specimens and was informed patient specimens indicate cancer. Communicated to Dr. Abbott and he stated he will update family. 08/04: Patient remains sedated on fentanyl and Versed, patient has moments of agitation with any stimulation. CPAP trial unable to be completed today due to agitation. 08/05: Patient had low urine output overnight and Elizabeth catheter was changed this a.m. with 2 L of urine output received. Patient did have a increase in creatinine however this may have been obstructive process and nephrology is aware. Hematology/oncology spoke to family who wishes for everything to be done despite bronchial washings with cancer cells. [facility] contacted patient's oncologist to help facilitate transfer. We attempted to hold sedation for CPAP trial however patient became extremely agitated and sedation was restarted. 08/06: Surgery consulted for possible trach. Leukocytosis and renal function slowly improving. No acute events reported overnight. 08/07: Creatinine continues to decrease, patient has slight hyper natremia and hyperchloremia. Patient remains on fentanyl and Versed with periods of agitation. Increasing free water flushes. 08-08 improving cr; febrile; family wants full care/full code- heme onc following 08-09 LOW GRADE FEVERS; FOR TRACH/PEG 08/10: Patient seen and examined, had Bronchoscopy and Trach and PEG today, follow report. Continue supportive care. 08/11: Patient remains on full vent support. Continue supportive care. 08/12: This morning patient noted with bleeding around trach surgery consulted going for emergent surgery. Labs ordered 08/13: Patient seen and examined, no further bleeding, had surgical intervention yesterday for trach site bleeding. No further bleeding this am. Patient otherwise remains on mechanical ventilation. Leukocytosis mildly worsened today this could be reactive has no fever will monitor mental status is still severely encephalopathic. 08/14/21 patient seen and examined. Lab and medication reviewed. No further bleeding from track site. Hemoglobin is 8.1. Hematocrit 24.2 and WBC 9.7. Continue current management and supportive care. Recheck CBC CMP in the morning 08/15: Overnight patient experienced sinus pericardia with return, will receive MiraLAX and CPAP trial today. 08/16: CPAP trial failed today. 08/17: given ducloax suppository today 08/18: failed cpap today as she became bradycardiac. able to follow simple commands. update today by phone. See note for details. Ltach referral sent 08/19- Patient is trached and on the vent, sedated with propofol and fentanyl. Attempted SAT today did not tolerated it, so no SBT trial today due to increased agitation and patient required more sedation to reach RASS goal -3 to -4. No documented BM document, PRN MOM administered, continue BR. Continue to monitor renal function, H&H, and electrolytes. AM labs ordered. 08/20: Awaiting placement at LTAC. 08/20: Supportive management. Awaiting placement at LTAC. 08-22 aliyah overnight 08/23: Patient seen and examined this morning clinically unchanged. Awaiting LTAC placement. Hospitalist Physical - Physical exam Narrative exam: General appearance: Present: no acute distress, well-nourished,, obese - EENT Eyes: Present: PERRL, EOM intact ENT: clear oral mucosa. Trach-site intact - Neck Neck: Present: supple, normal ROM - Respiratory Respiratory effort: normal - Cardiovascular Rhythm: regular - Extremities Extremities: no ischemia - Abdominal General gastrointestinal: soft, PEG tube site intact - Integumentary Integumentary: Present: clear, warm. Dependent edema noted - Psychiatric Psychiatric: other - Neurologic Neurologic: Unfortunately not following commands - Allied Health Allied health notes reviewed: nursing, RT, social work, case management - Constitutional Vitals: Temp Pulse Resp BP Pulse Ox 97.9 F 78 14 117/58 99 08/23/21 08:00 08/23/21 11:00 08/23/21 11:00 08/23/21 11:00 08/23/21 10:46 General appearance: Present: no acute distress Results - Labs CBC & Chem 7: 08/23/21 05:00 08/23/21 05:00 Labs: Laboratory Last Values WBC 5.4 K/mm3 (4.5-11.0) 08/23/21 05:00 RBC 2.65 M/mm3 (3.65-5.03) L 08/23/21 05:00 Hgb 8.1 gm/dl (10.1-14.3) L 08/23/21 05:00 Hct 23.9 % (30.3-42.9) L 08/23/21 05:00 MCV 90 fl (79-97) 08/23/21 05:00 MCH 31 pg (28-32) 08/23/21 05:00 MCHC 34 % (30-34) 08/23/21 05:00 RDW 17.9 % (13.2-15.2) H 08/23/21 05:00 Plt Count 475 K/mm3 (140-440) H 08/23/21 05:00 Lymph % (Auto) 12.5 % (13.4-35.0) L 08/15/21 Unknown [place] % (Auto) 5.9 % (0.0-7.3) 08/15/21 Unknown Eos % (Auto) 0.9 % (0.0-4.3) 08/15/21 Unknown Baso % (Auto) 0.3 % (0.0-1.8) 08/15/21 Unknown Lymph # (Auto) 1.0 K/mm3 (1.2-5.4) L 08/15/21 Unknown [place] # (Auto) 0.5 K/mm3 (0.0-0.8) 08/15/21 Unknown Eos # (Auto) 0.1 K/mm3 (0.0-0.4) 08/15/21 Unknown Baso # (Auto) 0.0 K/mm3 (0.0-0.1) 08/15/21 Unknown Add Manual Diff Complete 08/22/21 04:00 Total Counted 100 08/22/21 04:00 Seg Neutrophils % 80.4 % (40.0-70.0) H 08/15/21 Unknown Seg Neuts % (Manual) 84.0 % (40.0-70.0) H 08/22/21 04:00 Band Neutrophils % 3.0 % 08/22/21 04:00 Lymphocytes % (Manual) 7.0 % (13.4-35.0) L 08/22/21 04:00 Monocytes % (Manual) 6.0 % (0.0-7.3) 08/22/21 04:00 Eosinophils % (Manual) 1.0 % (0.0-4.3) 08/05/21 04:50 Metamyelocytes % 6.0 % 08/05/21 04:50 Myelocytes % 3.0 % 08/05/21 04:50 Nucleated RBC % 1.0 % (0.0-0.9) H 08/22/21 04:00 Seg Neutrophils # 6.4 K/mm3 (1.8-7.7) 08/15/21 Unknown Seg Neutrophils # Man 6.6 K/mm3 (1.8-7.7) 08/22/21 04:00 Band Neutrophils # 0.2 K/mm3 08/22/21 04:00 Lymphocytes # (Manual) 0.5 K/mm3 (1.2-5.4) L 08/22/21 04:00 Abs React Lymphs (Man) 0.0 K/mm3 08/22/21 04:00 Monocytes # (Manual) 0.5 K/mm3 (0.0-0.8) 08/22/21 04:00 Eosinophils # (Manual) 0.0 K/mm3 (0.0-0.4) 08/22/21 04:00 Basophils # (Manual) 0.0 K/mm3 (0.0-0.1) 08/22/21 04:00 Metamyelocytes # 0.0 K/mm3 08/22/21 04:00 Myelocytes # 0.0 K/mm3 08/22/21 04:00 Promyelocytes # 0.0 K/mm3 08/22/21 04:00 Blast Cells # 0.0 K/mm3 08/22/21 04:00 WBC Morphology Not Reportable 08/22/21 04:00 Hypersegmented Neuts Not Reportable 08/22/21 04:00 Hyposegmented Neuts Not Reportable 08/22/21 04:00 Hypogranular Neuts Not Reportable 08/22/21 04:00 Smudge Cells Not Reportable 08/22/21 04:00 Toxic Granulation Not Reportable 08/22/21 04:00 Toxic Vacuolation Not Reportable 08/22/21 04:00 Dohle Bodies Not Reportable 08/22/21 04:00 Pelger-Huet Anomaly Not Reportable 08/22/21 04:00 Beryl Rods Not Reportable 08/22/21 04:00 Platelet Estimate Consistent w auto 08/22/21 04:00 Clumped Platelets Few 08/22/21 04:00 Plt Clumps, EDTA Not Reportable 08/22/21 04:00 Large Platelets Not Reportable 08/22/21 04:00 Giant Platelets Not Reportable 08/22/21 04:00 Platelet Satelliting Not Reportable 08/22/21 04:00 Plt Morphology Comment Not Reportable 08/22/21 04:00 RBC Morphology Not Reportable 08/22/21 04:00 Dimorphic RBCs Not Reportable 08/22/21 04:00 Polychromasia Not Reportable 08/22/21 04:00 Hypochromasia Few 08/22/21 04:00 Poikilocytosis Not Reportable 08/22/21 04:00 Anisocytosis 1+ 08/22/21 04:00 Microcytosis Not Reportable 08/22/21 04:00 Macrocytosis Not Reportable 08/22/21 04:00 Spherocytes Not Reportable 08/22/21 04:00 Pappenheimer Bodies Not Reportable 08/22/21 04:00 Sickle Cells Not Reportable 08/22/21 04:00 Target Cells Not Reportable 08/22/21 04:00 Tear Drop Cells Not Reportable 08/22/21 04:00 Ovalocytes Not Reportable 08/22/21 04:00 Helmet Cells Not Reportable 08/22/21 04:00 [place] Bodies Not Reportable 08/22/21 04:00 [place]ake Rings Not Reportable 08/22/21 04:00 [place] Cells Not Reportable 08/22/21 04:00 Bite Cells Not Reportable 08/22/21 04:00 Crenated Cell Not Reportable 08/22/21 04:00 Elliptocytes Not Reportable 08/22/21 04:00 Acanthocytes (Spur) Not Reportable 08/22/21 04:00 Rouleaux Not Reportable 08/22/21 04:00 Hemoglobin C Crystals Not Reportable 08/22/21 04:00 Schistocytes Not Reportable 08/22/21 04:00 Malaria parasites Not Reportable 08/22/21 04:00 Gurmeet Bodies Not Reportable 08/22/21 04:00 Hem Pathologist Commnt No 08/22/21 04:00 PT 14.5 Sec. (12.2-14.9) 08/12/21 21:41 INR 1.08 (0.87-1.13) 08/12/21 21:41 APTT 29.9 Sec. (24.2-36.6) 08/10/21 05:20 D-Dimer 852.47 ng/mlDDU (0-234) H 07/29/21 07:17 ABG pH 7.401 (7.320-7.450) 08/19/21 13:45 POC ABG pCO2 39.8 mmHg (32.0-48.0) 08/19/21 13:45 ABG pCO2 46.6 mm Hg 08/17/21 21:23 POC ABG pO2 145.3 mmHg (83-108) H 08/19/21 13:45 ABG pO2 122.5 mm Hg (80.0-90.0) H 08/17/21 21: POC ABG HCO3 24.2 08/19/21 13:45 ABG HCO3 24.4 mmol/L (20.0-26.0) 08/17/21 21: ABG O2 Saturation 99.0 (0-100) 08/19/21 13:45 ABG O2 Content 10.6 (0.0-44) 08/17/21 21: POC ABG Base Excess -0.5 08/19/21 13:45 ABG Base Excess -1.4 mmol/L (-2.0-3.0) 08/17/21 21: ABG Hemoglobin 10.0 (12.0-17.5) L 08/19/21 13:45 ABG Oxyhemoglobin 98.4 (94-98) H 08/19/21 13:45 ABG Carboxyhemoglobin 1.8 % (0.0-5.0) 08/17/21 21: ABG Methemoglobin 0.3 (0.0-1.5) 08/19/21 13:45 ABG Sodium 134.0 mmol/L (136.0-145.0) L 08/19/21 13:45 ABG Potassium 4.2 mmol/L (3.40-4.50) 08/19/21 13:45 ABG Chloride 102.0 mmol/L (98-107) 08/19/21 13:45 ABG Glucose 141 mg/dL (65-95) H 08/19/21 13:45 Oxyhemoglobin 96.2 % (95.0-99.0) 08/17/21 21: Carboxyhemoglobin 0.3 (0.5-1.5) L 08/19/21 13:45 FiO2 30 % 08/17/21 21: FiO2 % 30.0 08/19/21 13:45 Sodium 142 mmol/L (137-145) 08/23/21 05:00 Potassium 4.2 mmol/L (3.6-5.0) 08/23/21 05:00 Chloride 107.2 mmol/L (98-107) H 08/23/21 05:00 Carbon Dioxide 27 mmol/L (22-30) 08/23/21 05:00 Anion Gap 12 mmol/L 08/23/21 05:00 BUN 51 mg/dL (7-17) H 08/23/21 05:00 Creatinine 0.6 mg/dL (0.6-1.2) 08/23/21 05:00 Estimated GFR > 60 ml/min 08/23/21 05:00 BUN/Creatinine Ratio 85 % 08/23/21 05:00 Glucose 88 mg/dL (65-100) 08/23/21 05:00 POC Glucose 105 mg/dL (70-105) 08/23/21 05:26 Lactic Acid 2.10 mmol/L (0.7-2.0) H* 08/03/21 15:11 Calcium 8.7 mg/dL (8.4-10.2) 08/23/21 05:00 Phosphorus 4.10 mg/dL (2.5-4.5) 08/08/21 06:00 Magnesium 1.70 mg/dL (1.7-2.3) 08/12/21 21:41 Total Bilirubin 0.20 mg/dL (0.1-1.2) 08/23/21 05:00 AST 35 units/L (5-40) 08/23/21 05:00 ALT 58 units/L (7-56) H 08/23/21 05:00 Alkaline Phosphatase 106 units/L (35-129) 08/23/21 05:00 Serum Total Protein See scanned result 08/03/21 04:17 Total Protein 5.6 g/dL (6.3-8.2) L 08/23/21 05:00 Albumin 2.6 g/dL (3.9-5) L 08/23/21 05:00 Albumin/Globulin Ratio 0.9 % 08/23/21 05:00 [id number] See scanned result 08/03/21 04:17 [id number] See scanned result 08/03/21 04:17 Beta Globulins See scanned result 08/03/21 04:17 Gamma Globulins See scanned result 08/03/21 04:17 Abnorm Protein Band 1 See scanned result 08/03/21 04:17 Abnorm Protein Band 2 See scanned result 08/03/21 04:17 Abnorm Protein Band 3 See scanned result 08/03/21 04:17 PEP Interpretation See scanned result 08/03/21 04:17 Triglycerides 207 mg/dL (2-149) H 08/20/21 16:55 Lipase 56 units/L (13-60) 08/20/21 16:55 Carcinoembryonic Ag <0.5 ng/mL (0.0-2.4) 07/31/21 04:45 Arterial Blood Glucose 141 mg/dL (65-95) H 08/19/21 13:45 Arterial Blood Ionized Calcium 4.6 mg/dL (4.6-5.3) 08/17/21 07:27 Urine Color Yellow (Yellow) 08/08/21 20: Urine Turbidity Slightly-cloudy (Clear) 08/08/21 20: Urine pH 5.0 (5.0-7.0) 08/08/21 20: Ur Specific [place] 1.014 (1.003-1.030) 08/08/21 20: Urine Protein 30 mg/dl mg/dL (Negative) 08/08/21 20: Urine Glucose (UA) Neg mg/dL (Negative) 08/08/21 20: Urine Ketones Neg mg/dL (Negative) 08/08/21 20: Urine Blood Mod (Negative) 08/08/21 20: Urine Nitrite Neg (Negative) 08/08/21 20: Urine Bilirubin Neg (Negative) 08/08/21 20: Urine Urobilinogen < 2.0 mg/dL (<2.0) 08/08/21 20:27 Ur Leukocyte Esterase Neg (Negative) 08/08/21 20: Urine WBC (Auto) 6.0 /HPF (0.0-6.0) 08/08/21 20: Urine RBC (Auto) 6.0 /HPF (0.0-6.0) 08/08/21 20:27 U Epithel Cells (Auto) < 1.0 /HPF (0-13.0) 08/08/21 20: Urine Bacteria (Auto) 1+ /HPF (Negative) 08/08/21 20: Urine Mucus Few /HPF 08/08/21 20: Urine Yeast (Budding) 1+ /HPF 08/08/21 20:27 Urine Creatinine 125.6 mg/dL (0.1-20.0) H 08/01/21 Unknown Urine Sodium 12 mmol/L 08/01/21 Unknown Proteinase 3 (PR3) Ab See scanned result 08/02/21 15:40 Myeloperoxidase Ab See scanned result 08/02/21 15:40 Double Strand DNA Ab 1 IU/mL (<=4) 08/02/21 15:40 Coronavirus (PCR) Negative (Negative) 07/29/21 07:58 Hepatitis A IgM Ab Non-reactive (NonReactive) 08/02/21 15:40 Hep Bs Antigen Nonreactive (Negative) 08/02/21 15:40 Hep B Core IgM Ab Non-reactive (NonReactive) 08/02/21 15:40 Hepatitis C Antibody Non-reactive (NonReactive) 08/02/21 15:40 AFB Identification Negative 08/02/21 14:30 Blood Type A POSITIVE 08/18/21 05:10 Antibody Screen Negative 08/18/21 05:10 Crossmatch See Detail 08/18/21 05:10 Elizabeth/IV: Voiding Method Indwelling Catheter Active Medications - Current Medications Current Medications: Generic Name Dose Route Start Last Admin Trade Name Freq PRN Reason Stop Dose Admin Acetaminophen 650 mg 07/28/21 02:11 08/18/21 22:02 Acetaminophen 325 Mg Tab PO 650 mg Q6H PRN Administration Pain MILD(1-3)/Fever >100.5/GARCIA Albuterol/Ipratropium 1 ampul 07/28/21 14:00 08/23/21 08:22 Ipratropium/Albuterol Sulfate 3 Ml Ampul.Neb IH Not Given TID DEMIAN Lipase/Protease/Amylase 1 each 07/29/21 13:01 Lipase 10,500/Protease 25,000/Amylase 43,750 (Units) Dr Campoverde FEEDTUBE PRN PRN For Clogged Feeding Tube Arformoterol Tartrate 15 mcg 07/28/21 20:00 08/23/21 08:22 Arformoterol 15 Mcg/2 Ml Nebu IH 15 mcg Q12HRT DEMIAN Administration Bisacodyl 10 mg 08/07/21 09:50 08/20/21 09:22 Bisacodyl 10 Mg Rect Supp [place] 10 mg QDAY PRN Administration Constip unreliev by MOM/or NPO Budesonide 0.5 mg 07/28/21 20:00 08/23/21 08:22 Budesonide 0.5 Mg/2 Ml Nebu IH 0.5 mg Q12HRT DEMIAN Administration Dextrose 50 ml 07/28/21 02:11 08/10/21 18:05 Dextrose 50% In Water (25gm) 50 Ml Syringe IV 20 ml Q30MIN PRN Administration Hypoglycemia Protocol Enoxaparin Sodium 40 mg 08/19/21 10:00 08/23/21 09:30 Enoxaparin 40 Mg/0.4 Ml Inj SUB-Q 40 mg QDAY DEMIAN Administration Protocol Famotidine 20 mg 08/15/21 10:00 08/23/21 09:30 Famotidine 20 Mg Tab FEEDTUBE 20 mg BID DEMIAN Administration Fentanyl 50 mcg 07/29/21 10:42 08/22/21 07:15 Fentanyl 100 Mcg/2 Ml Inj IV 50 mcg Q10MIN PRN Administration ANALGESIA Hydralazine HCl 10 mg 07/30/21 14:52 08/19/21 12:12 Hydralazine 20 Mg/1 Ml Inj IV 10 mg Q6H PRN Administration SBP > 165 Hydrophilic Ointment 1 applic 07/29/21 10:42 Lip Therapy Vaseline TP Q2HR PRN Dry Lips Fentanyl Citrate 2,000 mcg in 100 mls @ 5.35 mls/hr 07/29/21 11:00 08/23/21 09:29 Fentanyl Drip Premix IV 4 mcg/kg/hr TITR DEMIAN 21.4 mls/hr Administration Protocol 1 MCG/KG/HR Midazolam HCl 100 mg/ Sodium 100 mls @ 1 mls/hr 08/20/21 17:00 08/22/21 14:58 Chloride IV 2 mg/hr TITR DEMIAN 2 mls/hr Administration Protocol 1 MG/HR Insulin Human Lispro 0 unit 07/29/21 12:00 08/23/21 05:30 Insulin Lispro 100 Unit/Ml SUB-Q Not Given Q6HR [facility] Protocol Magnesium Hydroxide 30 ml 07/28/21 02:11 08/20/21 09:21 Magnesium Hydroxide (Mom) Oral Liqd Udc PO 30 ml Q4H PRN Administration Constipation Midazolam HCl 2 mg 08/20/21 16:15 08/20/21 18:33 Midazolam 2 Mg/2 Ml Inj IV 2 mg Q10MIN PRN Administration Sedation Multi-Ingred Cream/Lotion/Oil/Oint 1 applic 07/29/21 10:42 Mineral Oil/Petrolatum, White Ophth Oint 3.5 Gm OU Q4HR PRN Dry Eye(s) Polyethylene Glycol 17 gm 08/11/21 16:00 08/23/21 09:30 Polyethylene Glycol 3350 17 Gm Powder PO 17 gm QDAY DEMIAN Administration Quetiapine Fumarate 250 mg 08/20/21 16:19 08/23/21 09:30 Quetiapine 100 Mg Tab PO 250 mg BID DEMIAN Administration Senna/Docusate Sodium 1 tab 08/11/21 13:00 08/23/21 05:07 Sennosides/Docusate Sodium 8.6/50 Mg Tab FEEDTUBE 1 tab Q8H DEMIAN Administration Simple Syrup 15 ml 07/29/21 13:01 Simple Syrup 15 Ml FEEDTUBE PRN PRN Hypoglycemia Simple Syrup 30 ml 07/29/21 13:01 Simple Syrup 15 Ml FEEDTUBE PRN PRN Hypoglycemia Sodium Bicarbonate 325 mg 07/29/21 13:01 Sodium Bicarbonate 325 Mg Tab FEEDTUBE PRN PRN For Clogged Feeding Tube Sodium Chloride 10 ml 07/28/21 10:00 08/23/21 09:31 Sodium Chloride 0.9% 10 Ml Flush Syringe IV 10 ml BID DEMIAN Administration Sodium Chloride 10 ml 07/28/21 02:05 Sodium Chloride 0.9% 10 Ml Flush Syringe IV PRN PRN LINE FLUSH Nutrition/Malnutrition Assess - Dietary Evaluation Nutrition/Malnutrition Findings: Nutrition Notes Start: 07/28/21 14:44 Freq: Status: Active Protocol: [facility]16[facility]21 [facility] (Rec: 08/16/21 15:16 [facility] [id number]) Nutrition Notes Initial or Follow up Reassessment Current Diagnosis Diabetes,Hypertension, Respiratory Failure, Hyperlipidemia Current Diet TF - Vital AF 1.2 at 50ml/hr Labs/Tests Na 144 Pertinent Medications Senna, Miralax, Dulcolax Height 5 ft Weight 107 kg [place] Body Weight (kg) 45.45 BMI 46.0 Weight Status Morbidly Obese Subjective/Other Information Spoke with RN via phone at 15: 08. Pt still has not had a BM . Medications given today. Pt tolerating TF at goal rate and remains on vent support. Percent of energy/protein needs met: 78% energy 79% pro Burn Absent Trauma Absent GI Symptoms Constipation #1 Nutrition Diagnosis Inadequate oral intake Diagnosis Progress(for reassessment Continues documentation) Is patient on ventilator? Yes Is Patient Ambulatory and/or Out of Bed No [facility] 1842.852 Kcal/Kg value to use for calculation 13 Approximate Energy Requirements Using 1391 kcal/Kg Calculation Used for Recommendations Kcal/kg Additional Notes Protein: (up to 2.5g/kg IBW) up to 114g Fluid: 1 ml/kcal or per MD Nutrition Intervention Nutrition Support: Continue Vital AF 1.2 at 50 ml /hr. Per RN, pt receiving 200ml water flush q4h. Kcal 1,440 Protein (gm) 90 Fluid (mL) 973 Goal #1 TF tolerance Goal #2 TF to meet at least 75% energy and pro needs Follow-Up By: 08/23/21 Additional Comments F/U: stable TF, BM, vent status
--- NOTE | 2021-08-23 11:45 | Event Note ---
Date: 08/23/21 The left lower extremity deep venous thrombus has resolved. 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 Treatment options include Eliquis or Lovenox given underlying malignancy. Full dose anticoagulation (Eliquis 5 mg PO BID or Lovenox 1mg/kg SC BID) will prevent recurrent thrombosis as much as possible, but has the risk of bleeding. If bleeding risk is too high, then this cannot be performed. If full dose anticoagulation cannot be performed to reduce risk of recurrent thrombosis, then consider low-dose (2.5 mg p.o. twice daily) Eliquis or prophylactic dose Lovenox (40 mg/day). Recommend application of SCD to bilateral lower extremities.
--- NOTE | 2021-08-23 11:56 | Progress Note ---
Assessment and Plan Acute hypoxemic respiratory failure secondary Lung Mass (? Lung vs Breast CA) Acute COPD exacerbation Possible hypercapnia History of right breast cancer Leukocytosis DM II Hypertension Hyperlipidemia Tobacco use disorder - place SCD's - resume Eliquis re: VTE risk assessment - awaiting transfer to LTAC - hopefully can be seen by radiological oncologist +/- RTX to central lesions / mediastinopathy - continue care as below otherwise; - continue daily SAT and SBT assessment as tolerated - s/p full anticoagulation for VTE - continue Seroquel to spare IV sedatives - azotemia per nephrology - continue to wean supplemental oxygen for target O2 sat's > 90% acutely - VAP bundle addressed - continue lung protective strategies - continue bronchodilators (GLADIS & LABA) with pulmonary hygiene per RT - wean per pulmonary driven protocols otherwise - continue accuchecks with glycemic control per SSI (While critically ill target blood glucose of 140-180 mg/dL; avoid hypoglycemia) - sedation prn for target RASS 0 to -1 - avoid nephrotoxins, renally dose all medications - continue to avoid benzodiazepine's, reduce the possibility of delirium - complete AB's per ID rec's - prn analgesia per CPOT score - Maintenance of sleep-wake cycle, avoid delirium - enteral nutritional support at goal rate as tolerated - G.I. & VTE prophylaxis - PT/OT/ROM exercises - continue mobility protocols for pressure ulcer prophylaxis - Monitor hemodynamics closely - continue other care per attending / other consultants - discharge planning ongoing concurrently COVID SPECIFIC INTERVENTIONS - test result pending .... Re-evaluate in am & prn CONDITION: CRITICAL PROGNOSIS: GUARDED CODE STATUS: FULL CODE The high probability of a clinically significant, sudden or life-threatening deterioration of the [respiratory, cardiovascular, oncological & neurologic] system(s) required my full and direct attention, intervention and personal management. The aggregate critical care time was [32] minutes without overlap. Time includes spent on; [x] Data Review and interpretation [x] Patient assessment and monitoring of vital signs [x] Documentation [x] Medication orders and management Subjective Date of service: 08/23/21 Principal diagnosis: Ac hypoxemic resp failure ; AE-COPD; H/O CA Breast; DM II; HTN Interval history: Patient is seen today for: Acute hypoxemic respiratory failure; AE-COPD; Possible hypercapnia; H/O CA Breast; DM II; HTN Seen and examined at bedside; 24hour events reviewed; nursing and respiratory care staff consulted; no adverse overnight events reported to me; resting in bed; remains on MVS; vascular surgery recommendations noted; dopplers negative for VTE; no gross bleeding; remains with increased work of breathing during SAT's Objective Vital Signs - 12hr 08/23/21 08/23/21 08/23/21 00:00 00:16 00:30 Temperature 98.6 F Pulse Rate 88 103 H 101 H Pulse Rate [ Anterior Bilateral] Pulse Rate [ 83 From Monitor] Respiratory 13 13 13 Rate Respiratory Rate [Anterior Bilateral] Blood Pressure 163/73 130/69 130/69 O2 Sat by Pulse 96 100 98 Oximetry 08/23/21 08/23/21 08/23/21 00:46 01:00 01:16 Temperature Pulse Rate 101 H 99 H 99 H Pulse Rate [ Anterior Bilateral] Pulse Rate [ From Monitor] Respiratory 13 15 15 Rate Respiratory Rate [Anterior Bilateral] Blood Pressure 132/85 148/73 137/71 O2 Sat by Pulse 98 92 92 Oximetry 08/23/21 08/23/21 08/23/21 01:30 01:45 02:00 Temperature Pulse Rate 94 H 96 H 89 Pulse Rate [ Anterior Bilateral] Pulse Rate [ From Monitor] Respiratory 15 14 14 Rate Respiratory Rate [Anterior Bilateral] Blood Pressure 123/64 125/62 113/61 O2 Sat by Pulse 92 93 93 Oximetry 08/23/21 08/23/21 08/23/21 02:15 02:30 02:45 Temperature Pulse Rate 83 81 79 Pulse Rate [ Anterior Bilateral] Pulse Rate [ From Monitor] Respiratory 15 14 14 Rate Respiratory Rate [Anterior Bilateral] Blood Pressure 110/57 111/53 107/55 O2 Sat by Pulse 93 95 96 Oximetry 08/23/21 08/23/21 08/23/21 03:00 03:15 03:30 Temperature Pulse Rate 77 78 77 Pulse Rate [ Anterior Bilateral] Pulse Rate [ From Monitor] Respiratory 14 13 13 Rate Respiratory Rate [Anterior Bilateral] Blood Pressure 101/49 117/66 111/55 O2 Sat by Pulse 95 92 95 Oximetry 08/23/21 08/23/21 08/23/21 03:45 04:00 04:05 Temperature 97.7 F Pulse Rate 76 75 83 Pulse Rate [ Anterior Bilateral] Pulse Rate [ 83 From Monitor] Respiratory 14 14 Rate Respiratory Rate [Anterior Bilateral] Blood Pressure 105/57 101/54 142/77 O2 Sat by Pulse 95 94 100 Oximetry 08/23/21 08/23/21 08/23/21 04:15 04:30 04:46 Temperature Pulse Rate 73 74 73 Pulse Rate [ Anterior Bilateral] Pulse Rate [ From Monitor] Respiratory 13 12 13 Rate Respiratory Rate [Anterior Bilateral] Blood Pressure 112/51 120/69 106/58 O2 Sat by Pulse 96 96 96 Oximetry 08/23/21 08/23/21 08/23/21 05:00 05:15 05:30 Temperature Pulse Rate 73 73 88 Pulse Rate [ Anterior Bilateral] Pulse Rate [ From Monitor] Respiratory 12 12 12 Rate Respiratory Rate [Anterior Bilateral] Blood Pressure 110/62 105/61 120/69 O2 Sat by Pulse 95 95 98 Oximetry 08/23/21 08/23/21 08/23/21 05:46 06:00 06:16 Temperature Pulse Rate 90 89 86 Pulse Rate [ Anterior Bilateral] Pulse Rate [ From Monitor] Respiratory 11 L 12 14 Rate Respiratory Rate [Anterior Bilateral] Blood Pressure 167/89 167/89 122/66 O2 Sat by Pulse 99 99 96 Oximetry 08/23/21 08/23/21 08/23/21 06:30 06:45 07:00 Temperature Pulse Rate 81 78 76 Pulse Rate [ Anterior Bilateral] Pulse Rate [ From Monitor] Respiratory 15 14 14 Rate Respiratory Rate [Anterior Bilateral] Blood Pressure 112/58 112/56 106/60 O2 Sat by Pulse 96 96 97 Oximetry 08/23/21 08/23/21 08/23/21 07:16 07:30 07:46 Temperature Pulse Rate 83 84 84 Pulse Rate [ Anterior Bilateral] Pulse Rate [ From Monitor] Respiratory 12 12 12 Rate Respiratory Rate [Anterior Bilateral] Blood Pressure 195/104 106/60 163/83 O2 Sat by Pulse 99 100 Oximetry 08/23/21 08/23/21 08/23/21 08:00 08:15 08:19 Temperature 97.9 F Pulse Rate 84 83 84 Pulse Rate [ Anterior Bilateral] Pulse Rate [ From Monitor] Respiratory 12 15 Rate Respiratory Rate [Anterior Bilateral] Blood Pressure 143/85 140/72 140/72 O2 Sat by Pulse 99 97 100 Oximetry 08/23/21 08/23/21 08/23/21 08:20 08:22 08:30 Temperature Pulse Rate 86 Pulse Rate [ 84 Anterior Bilateral] Pulse Rate [ From Monitor] Respiratory 15 Rate Respiratory 18 Rate [Anterior Bilateral] Blood Pressure 151/77 O2 Sat by Pulse 100 100 Oximetry 08/23/21 08/23/21 08/23/21 08:46 09:00 09:16 Temperature Pulse Rate 82 83 79 Pulse Rate [ Anterior Bilateral] Pulse Rate [ From Monitor] Respiratory 15 13 14 Rate Respiratory Rate [Anterior Bilateral] Blood Pressure 119/68 141/83 114/63 O2 Sat by Pulse 98 99 97 Oximetry 08/23/21 08/23/21 08/23/21 09:30 09:45 10:00 Temperature Pulse Rate 76 73 73 Pulse Rate [ Anterior Bilateral] Pulse Rate [ From Monitor] Respiratory 15 14 14 Rate Respiratory Rate [Anterior Bilateral] Blood Pressure 111/58 111/58 115/61 O2 Sat by Pulse 97 98 99 Oximetry 08/23/21 08/23/21 08/23/21 10:16 10:30 10:46 Temperature Pulse Rate 93 H 79 78 Pulse Rate [ Anterior Bilateral] Pulse Rate [ From Monitor] Respiratory 11 L 14 15 Rate Respiratory Rate [Anterior Bilateral] Blood Pressure 198/95 151/83 151/83 O2 Sat by Pulse 100 100 99 Oximetry 08/23/21 08/23/21 11:00 11:46 Temperature Pulse Rate 78 79 Pulse Rate [ Anterior Bilateral] Pulse Rate [ From Monitor] Respiratory 14 Rate Respiratory Rate [Anterior Bilateral] Blood Pressure 117/58 117/58 O2 Sat by Pulse 100 Oximetry Constitutional: no acute distress (sedated), other (eldely obese female without increased respiratory effort at rest on MVS) Eyes: non-icteric ENT: oropharynx moist, other (trach [place] #[id number], cuffed; no bleeding) Neck: supple, no lymphadenopathy, no JVD Effort: mildly labored Ascultation: Bilateral: rhonchi Percussion: Bilateral: not dull Cardiovascular: regular rate and rhythm, other (S1,S2) Gastrointestinal: normoactive bowel sounds, soft, non-tender, non-distended, other (PEG) Integumentary: normal Extremities: no cyanosis, no edema, pulses normal, no ischemia or petechiae Neurologic: non-focal exam (moves all extremities), pupils equal and round, CN II-XII normal Psychiatric: other (sedated) CBC and BMP: 08/23/21 05:00 08/23/21 05:00 ABG, PT/INR, D-dimer: ABG ABG pH 7.401 (7.320-7.450) 08/19/21 13:45 POC ABG pCO2 39.8 mmHg (32.0-48.0) 08/19/21 13:45 ABG pCO2 46.6 mm Hg 08/17/21 21:23 POC ABG pO2 145.3 mmHg (83-108) H 08/19/21 13:45 ABG pO2 122.5 mm Hg (80.0-90.0) H 08/17/21 21:23 POC ABG HCO3 24.2 08/19/21 13:45 ABG O2 Saturation 99.0 (0-100) 08/19/21 13:45 PT/INR, D-dimer PT 14.5 Sec. (12.2-14.9) 08/12/21 21:41 INR 1.08 (0.87-1.13) 08/12/21 21:41 D-Dimer 852.47 ng/mlDDU (0-234) H 07/29/21 07:17 Abnormal lab findings: Abnormal Labs 07/27/21 07/27/21 07/27/21 22:57 22:57 22:57 WBC 20.3 H RBC Hgb Hct MCH MCHC RDW Plt Count Lymph % (Auto) Lymph # (Auto) [place] # (Auto) Seg Neutrophils % Seg Neuts % (Manual) 89.0 H Lymphocytes % (Manual) 9.0 L Nucleated RBC % Seg Neutrophils # Seg Neutrophils # Man 18.1 H Lymphocytes # (Manual) Monocytes # (Manual) D-Dimer ABG pH POC ABG pCO2 POC ABG pO2 ABG pO2 ABG Hemoglobin ABG Oxyhemoglobin ABG Sodium ABG Potassium ABG Chloride ABG Glucose Carboxyhemoglobin Sodium Potassium 3.5 L Chloride 96.9 L Carbon Dioxide 20 L BUN 19 H Creatinine Glucose 204 H POC Glucose Lactic Acid 7.20 H* Calcium Magnesium AST 98 H ALT 90 H Total Protein Albumin Triglycerides Arterial Blood Glucose Arterial Blood Ionized Calcium Urine WBC (Auto) Urine Creatinine Crossmatch 07/28/21 07/28/21 07/28/21 01:31 07:49 10:00 WBC RBC Hgb Hct MCH MCHC RDW Plt Count Lymph % (Auto) Lymph # (Auto) [place] # (Auto) Seg Neutrophils % Seg Neuts % (Manual) Lymphocytes % (Manual) Nucleated RBC % Seg Neutrophils # Seg Neutrophils # Man Lymphocytes # (Manual) Monocytes # (Manual) D-Dimer ABG pH POC ABG pCO2 POC ABG pO2 ABG pO2 ABG Hemoglobin ABG Oxyhemoglobin ABG Sodium ABG Potassium ABG Chloride ABG Glucose Carboxyhemoglobin Sodium Potassium Chloride Carbon Dioxide BUN Creatinine Glucose POC Glucose 194 H Lactic Acid 6.90 H* 6.70 H* Calcium Magnesium AST ALT Total Protein Albumin Triglycerides Arterial Blood Glucose Arterial Blood Ionized Calcium Urine WBC (Auto) Urine Creatinine Crossmatch 07/28/21 07/28/21 07/28/21 12:41 13:21 16:21 WBC RBC Hgb Hct MCH MCHC RDW Plt Count Lymph % (Auto) Lymph # (Auto) [place] # (Auto) Seg Neutrophils % Seg Neuts % (Manual) Lymphocytes % (Manual) Nucleated RBC % Seg Neutrophils # Seg Neutrophils # Man Lymphocytes # (Manual) Monocytes # (Manual) D-Dimer ABG pH POC ABG pCO2 POC ABG pO2 ABG pO2 ABG Hemoglobin ABG Oxyhemoglobin ABG Sodium ABG Potassium ABG Chloride ABG Glucose Carboxyhemoglobin Sodium Potassium Chloride Carbon Dioxide BUN Creatinine Glucose POC Glucose 159 H 155 H Lactic Acid 6.10 H* Calcium Magnesium AST ALT Total Protein Albumin Triglycerides Arterial Blood Glucose Arterial Blood Ionized Calcium Urine WBC (Auto) Urine Creatinine Crossmatch 07/28/21 07/29/21 07/29/21 22:03 04:44 04:44 WBC 17.0 H RBC Hgb Hct MCH MCHC RDW Plt Count Lymph % (Auto) Lymph # (Auto) [place] # (Auto) Seg Neutrophils % Seg Neuts % (Manual) 82.0 H Lymphocytes % (Manual) 11.0 L Nucleated RBC % Seg Neutrophils # Seg Neutrophils # Man 13.9 H Lymphocytes # (Manual) Monocytes # (Manual) 1.0 H D-Dimer ABG pH POC ABG pCO2 POC ABG pO2 ABG pO2 ABG Hemoglobin ABG Oxyhemoglobin ABG Sodium ABG Potassium ABG Chloride ABG Glucose Carboxyhemoglobin Sodium Potassium Chloride Carbon Dioxide BUN 23 H Creatinine Glucose 196 H POC Glucose 187 H Lactic Acid Calcium Magnesium AST ALT Total Protein Albumin Triglycerides Arterial Blood Glucose Arterial Blood Ionized Calcium Urine WBC (Auto) Urine Creatinine Crossmatch 07/29/21 07/29/21 07/29/21 06:56 07:17 07:17 WBC 26.1 H RBC Hgb Hct 43.3 H MCH MCHC RDW 16.0 H Plt Count Lymph % (Auto) Lymph # (Auto) [place] # (Auto) Seg Neutrophils % Seg Neuts % (Manual) 80.0 H Lymphocytes % (Manual) Nucleated RBC % Seg Neutrophils # Seg Neutrophils # Man 20.9 H Lymphocytes # (Manual) Monocytes # (Manual) D-Dimer ABG pH POC ABG pCO2 POC ABG pO2 ABG pO2 ABG Hemoglobin ABG Oxyhemoglobin ABG Sodium ABG Potassium ABG Chloride ABG Glucose Carboxyhemoglobin Sodium Potassium Chloride Carbon Dioxide 20 L D BUN 23 H Creatinine Glucose 308 H POC Glucose 165 H Lactic Acid Calcium Magnesium AST ALT Total Protein Albumin Triglycerides Arterial Blood Glucose Arterial Blood Ionized Calcium Urine WBC (Auto) Urine Creatinine Crossmatch 07/29/21 07/29/21 07/29/21 07:17 09:16 10:30 WBC RBC Hgb Hct MCH MCHC RDW Plt Count Lymph % (Auto) Lymph # (Auto) [place] # (Auto) Seg Neutrophils % Seg Neuts % (Manual) Lymphocytes % (Manual) Nucleated RBC % Seg Neutrophils # Seg Neutrophils # Man Lymphocytes # (Manual) Monocytes # (Manual) D-Dimer 852.47 H ABG pH 7.236 L POC ABG pCO2 56.0 H POC ABG pO2 266.4 H ABG pO2 ABG Hemoglobin ABG Oxyhemoglobin 99.1 H ABG Sodium 132.3 L ABG Potassium 4.9 H ABG Chloride ABG Glucose 202 H Carboxyhemoglobin 0.2 L Sodium Potassium Chloride Carbon Dioxide BUN Creatinine Glucose POC Glucose 271 H Lactic Acid Calcium Magnesium AST ALT Total Protein Albumin Triglycerides Arterial Blood Glucose 202 H Arterial Blood Ionized Calcium Urine WBC (Auto) Urine Creatinine Crossmatch 07/29/21 07/29/21 07/30/21 17:54 23:32 05:08 WBC RBC Hgb Hct MCH MCHC RDW Plt Count Lymph % (Auto) Lymph # (Auto) [place] # (Auto) Seg Neutrophils % Seg Neuts % (Manual) Lymphocytes % (Manual) Nucleated RBC % Seg Neutrophils # Seg Neutrophils # Man Lymphocytes # (Manual) Monocytes # (Manual) D-Dimer ABG pH POC ABG pCO2 POC ABG pO2 ABG pO2 ABG Hemoglobin ABG Oxyhemoglobin ABG Sodium ABG Potassium ABG Chloride ABG Glucose Carboxyhemoglobin Sodium Potassium Chloride Carbon Dioxide BUN Creatinine Glucose POC Glucose 168 H 205 H 214 H Lactic Acid Calcium Magnesium AST ALT Total Protein Albumin Triglycerides Arterial Blood Glucose Arterial Blood Ionized Calcium Urine WBC (Auto) Urine Creatinine Crossmatch 07/30/21 07/30/21 07/30/21 06:01 11:32 17:34 WBC RBC Hgb Hct MCH MCHC RDW Plt Count Lymph % (Auto) Lymph # (Auto) [place] # (Auto) Seg Neutrophils % Seg Neuts % (Manual) Lymphocytes % (Manual) Nucleated RBC % Seg Neutrophils # Seg Neutrophils # Man Lymphocytes # (Manual) Monocytes # (Manual) D-Dimer ABG pH 7.480 H POC ABG pCO2 23.6 L POC ABG pO2 280.0 H ABG pO2 ABG Hemoglobin ABG Oxyhemoglobin 99.3 H ABG Sodium 133.7 L ABG Potassium ABG Chloride ABG Glucose 232 H Carboxyhemoglobin 0 L Sodium Potassium Chloride Carbon Dioxide BUN Creatinine Glucose POC Glucose 207 H 239 H Lactic Acid Calcium Magnesium AST ALT Total Protein Albumin Triglycerides Arterial Blood Glucose 232 H Arterial Blood Ionized Calcium 4.4 L Urine WBC (Auto) Urine Creatinine Crossmatch 07/30/21 07/31/21 07/31/21 23:39 03:34 04:45 WBC 15.0 H RBC Hgb Hct MCH MCHC RDW 15.5 H Plt Count Lymph % (Auto) Lymph # (Auto) [place] # (Auto) Seg Neutrophils % Seg Neuts % (Manual) 89.0 H Lymphocytes % (Manual) 7.0 L Nucleated RBC % Seg Neutrophils # Seg Neutrophils # Man 13.4 H Lymphocytes # (Manual) 1.1 L Monocytes # (Manual) D-Dimer ABG pH 7.481 H POC ABG pCO2 31.8 L POC ABG pO2 ABG pO2 ABG Hemoglobin ABG Oxyhemoglobin ABG Sodium 135.2 L ABG Potassium 3.3 L ABG Chloride ABG Glucose 188 H Carboxyhemoglobin 0.1 L Sodium Potassium Chloride Carbon Dioxide BUN Creatinine Glucose POC Glucose 176 H Lactic Acid Calcium Magnesium AST ALT Total Protein Albumin Triglycerides Arterial Blood Glucose 188 H Arterial Blood Ionized Calcium 4.4 L Urine WBC (Auto) Urine Creatinine Crossmatch 07/31/21 07/31/21 07/31/21 04:45 04:45 11:28 WBC RBC Hgb Hct MCH MCHC RDW Plt Count Lymph % (Auto) Lymph # (Auto) [place] # (Auto) Seg Neutrophils % Seg Neuts % (Manual) Lymphocytes % (Manual) Nucleated RBC % Seg Neutrophils # Seg Neutrophils # Man Lymphocytes # (Manual) Monocytes # (Manual) D-Dimer ABG pH POC ABG pCO2 POC ABG pO2 ABG pO2 ABG Hemoglobin ABG Oxyhemoglobin ABG Sodium ABG Potassium ABG Chloride ABG Glucose Carboxyhemoglobin Sodium Potassium 3.4 L Chloride Carbon Dioxide BUN 61 H Creatinine 2.6 H D Glucose 176 H POC Glucose 195 H 245 H Lactic Acid Calcium Magnesium AST ALT Total Protein Albumin Triglycerides Arterial Blood Glucose Arterial Blood Ionized Calcium Urine WBC (Auto) Urine Creatinine Crossmatch 07/31/21 07/31/21 08/01/21 17:32 23:58 01:00 WBC RBC Hgb Hct MCH MCHC RDW Plt Count Lymph % (Auto) Lymph # (Auto) [place] # (Auto) Seg Neutrophils % Seg Neuts % (Manual) Lymphocytes % (Manual) Nucleated RBC % Seg Neutrophils # Seg Neutrophils # Man Lymphocytes # (Manual) Monocytes # (Manual) D-Dimer ABG pH POC ABG pCO2 POC ABG pO2 ABG pO2 ABG Hemoglobin ABG Oxyhemoglobin ABG Sodium ABG Potassium ABG Chloride ABG Glucose 284 H Carboxyhemoglobin 0.3 L Sodium Potassium Chloride Carbon Dioxide BUN Creatinine Glucose POC Glucose 251 H 294 H Lactic Acid Calcium Magnesium AST ALT Total Protein Albumin Triglycerides Arterial Blood Glucose 284 H Arterial Blood Ionized Calcium Urine WBC (Auto) Urine Creatinine Crossmatch 08/01/21 08/01/21 08/01/21 05:50 05:50 06:11 WBC 16.2 H RBC Hgb Hct MCH MCHC RDW 15.5 H Plt Count Lymph % (Auto) Lymph # (Auto) [place] # (Auto) Seg Neutrophils % Seg Neuts % (Manual) 93.0 H Lymphocytes % (Manual) 2.0 L Nucleated RBC % 3.0 H Seg Neutrophils # Seg Neutrophils # Man 15.1 H Lymphocytes # (Manual) 0.3 L Monocytes # (Manual) D-Dimer ABG pH POC ABG pCO2 POC ABG pO2 ABG pO2 ABG Hemoglobin ABG Oxyhemoglobin ABG Sodium ABG Potassium ABG Chloride ABG Glucose Carboxyhemoglobin Sodium Potassium Chloride Carbon Dioxide BUN 64 H Creatinine 1.9 H Glucose 277 H POC Glucose 256 H Lactic Acid Calcium Magnesium AST ALT Total Protein Albumin Triglycerides Arterial Blood Glucose Arterial Blood Ionized Calcium Urine WBC (Auto) Urine Creatinine Crossmatch 08/01/21 08/01/21 08/01/21 11:39 17:25 23:53 WBC RBC Hgb Hct MCH MCHC RDW Plt Count Lymph % (Auto) Lymph # (Auto) [place] # (Auto) Seg Neutrophils % Seg Neuts % (Manual) Lymphocytes % (Manual) Nucleated RBC % Seg Neutrophils # Seg Neutrophils # Man Lymphocytes # (Manual) Monocytes # (Manual) D-Dimer ABG pH POC ABG pCO2 POC ABG pO2 ABG pO2 ABG Hemoglobin ABG Oxyhemoglobin ABG Sodium ABG Potassium ABG Chloride ABG Glucose Carboxyhemoglobin Sodium Potassium Chloride Carbon Dioxide BUN Creatinine Glucose POC Glucose 289 H 275 H 327 H Lactic Acid Calcium Magnesium AST ALT Total Protein Albumin Triglycerides Arterial Blood Glucose Arterial Blood Ionized Calcium Urine WBC (Auto) Urine Creatinine Crossmatch 08/01/21 08/02/21 08/02/21 Unknown 04:00 12:03 WBC RBC Hgb Hct MCH MCHC RDW Plt Count Lymph % (Auto) Lymph # (Auto) [place] # (Auto) Seg Neutrophils % Seg Neuts % (Manual) Lymphocytes % (Manual) Nucleated RBC % Seg Neutrophils # Seg Neutrophils # Man Lymphocytes # (Manual) Monocytes # (Manual) D-Dimer ABG pH POC ABG pCO2 POC ABG pO2 ABG pO2 ABG Hemoglobin ABG Oxyhemoglobin ABG Sodium ABG Potassium ABG Chloride ABG Glucose 325 H Carboxyhemoglobin 0.4 L Sodium Potassium Chloride Carbon Dioxide BUN Creatinine Glucose POC Glucose 209 H Lactic Acid Calcium Magnesium AST ALT Total Protein Albumin Triglycerides Arterial Blood Glucose 325 H Arterial Blood Ionized Calcium Urine WBC (Auto) Urine Creatinine 125.6 H Crossmatch 08/02/21 08/02/21 08/02/21 15:30 17:03 23:17 WBC RBC Hgb Hct MCH MCHC RDW Plt Count Lymph % (Auto) Lymph # (Auto) [place] # (Auto) Seg Neutrophils % Seg Neuts % (Manual) Lymphocytes % (Manual) Nucleated RBC % Seg Neutrophils # Seg Neutrophils # Man Lymphocytes # (Manual) Monocytes # (Manual) D-Dimer ABG pH POC ABG pCO2 POC ABG pO2 ABG pO2 ABG Hemoglobin ABG Oxyhemoglobin ABG Sodium ABG Potassium ABG Chloride ABG Glucose Carboxyhemoglobin Sodium Potassium Chloride Carbon Dioxide BUN Creatinine Glucose POC Glucose 210 H 265 H Lactic Acid Calcium Magnesium AST ALT Total Protein Albumin Triglycerides Arterial Blood Glucose Arterial Blood Ionized Calcium Urine WBC (Auto) 47.0 H Urine Creatinine Crossmatch 08/02/21 08/02/21 08/03/21 Unknown Unknown 04:17 WBC 14.1 H RBC Hgb Hct MCH MCHC RDW 16.3 H Plt Count Lymph % (Auto) 5.1 L Lymph # (Auto) 0.7 L [place] # (Auto) 0.9 H Seg Neutrophils % 88.7 H Seg Neuts % (Manual) Lymphocytes % (Manual) Nucleated RBC % Seg Neutrophils # 12.5 H Seg Neutrophils # Man Lymphocytes # (Manual) Monocytes # (Manual) D-Dimer ABG pH POC ABG pCO2 POC ABG pO2 ABG pO2 ABG Hemoglobin ABG Oxyhemoglobin ABG Sodium ABG Potassium ABG Chloride ABG Glucose Carboxyhemoglobin Sodium Potassium Chloride Carbon Dioxide BUN 72 H 72 H Creatinine 1.8 H 1.6 H Glucose 307 H 263 H POC Glucose Lactic Acid Calcium Magnesium AST ALT Total Protein Albumin Triglycerides Arterial Blood Glucose Arterial Blood Ionized Calcium Urine WBC (Auto) Urine Creatinine Crossmatch 08/03/21 08/03/21 08/03/21 04:17 05:30 08:30 WBC 13.9 H RBC Hgb Hct MCH MCHC RDW 16.0 H Plt Count Lymph % (Auto) Lymph # (Auto) [place] # (Auto) Seg Neutrophils % Seg Neuts % (Manual) Lymphocytes % (Manual) Nucleated RBC % Seg Neutrophils # Seg Neutrophils # Man Lymphocytes # (Manual) Monocytes # (Manual) D-Dimer ABG pH POC ABG pCO2 POC ABG pO2 ABG pO2 ABG Hemoglobin ABG Oxyhemoglobin ABG Sodium ABG Potassium ABG Chloride ABG Glucose Carboxyhemoglobin Sodium Potassium Chloride Carbon Dioxide BUN Creatinine Glucose POC Glucose 280 H Lactic Acid Calcium Magnesium 3.00 H AST ALT Total Protein Albumin Triglycerides Arterial Blood Glucose Arterial Blood Ionized Calcium Urine WBC (Auto) Urine Creatinine Crossmatch 08/03/21 08/03/21 08/03/21 12:14 13:39 15:11 WBC RBC Hgb Hct MCH MCHC RDW Plt Count Lymph % (Auto) Lymph # (Auto) [place] # (Auto) Seg Neutrophils % Seg Neuts % (Manual) Lymphocytes % (Manual) Nucleated RBC % Seg Neutrophils # Seg Neutrophils # Man Lymphocytes # (Manual) Monocytes # (Manual) D-Dimer ABG pH POC ABG pCO2 POC ABG pO2 ABG pO2 ABG Hemoglobin ABG Oxyhemoglobin ABG Sodium ABG Potassium ABG Chloride ABG Glucose 306 H Carboxyhemoglobin 0.3 L Sodium Potassium Chloride Carbon Dioxide BUN Creatinine Glucose POC Glucose 287 H Lactic Acid 2.10 H* Calcium Magnesium AST ALT Total Protein Albumin Triglycerides Arterial Blood Glucose 306 H Arterial Blood Ionized Calcium Urine WBC (Auto) Urine Creatinine Crossmatch 08/03/21 08/03/21 08/04/21 16:52 23:08 04:00 WBC RBC Hgb Hct MCH MCHC RDW Plt Count Lymph % (Auto) Lymph # (Auto) [place] # (Auto) Seg Neutrophils % Seg Neuts % (Manual) Lymphocytes % (Manual) Nucleated RBC % Seg Neutrophils # Seg Neutrophils # Man Lymphocytes # (Manual) Monocytes # (Manual) D-Dimer ABG pH POC ABG pCO2 54.3 H POC ABG pO2 82.2 L ABG pO2 ABG Hemoglobin ABG Oxyhemoglobin ABG Sodium 145.1 H ABG Potassium 5.0 H ABG Chloride ABG Glucose 316 H Carboxyhemoglobin 0.3 L Sodium Potassium Chloride Carbon Dioxide BUN Creatinine Glucose POC Glucose 282 H 289 H Lactic Acid Calcium Magnesium AST ALT Total Protein Albumin Triglycerides Arterial Blood Glucose 316 H Arterial Blood Ionized Calcium Urine WBC (Auto) Urine Creatinine Crossmatch 08/04/21 08/04/21 08/04/21 04:38 04:38 05:19 WBC 17.7 H RBC Hgb Hct MCH MCHC RDW 16.5 H Plt Count Lymph % (Auto) Lymph # (Auto) [place] # (Auto) Seg Neutrophils % Seg Neuts % (Manual) Lymphocytes % (Manual) Nucleated RBC % Seg Neutrophils # Seg Neutrophils # Man Lymphocytes # (Manual) Monocytes # (Manual) D-Dimer ABG pH POC ABG pCO2 POC ABG pO2 ABG pO2 ABG Hemoglobin ABG Oxyhemoglobin ABG Sodium ABG Potassium ABG Chloride ABG Glucose Carboxyhemoglobin Sodium Potassium Chloride 108.3 H Carbon Dioxide BUN 76 H Creatinine 1.4 H Glucose 310 H POC Glucose 268 H Lactic Acid Calcium Magnesium 2.70 H AST ALT Total Protein Albumin Triglycerides Arterial Blood Glucose Arterial Blood Ionized Calcium Urine WBC (Auto) Urine Creatinine Crossmatch 08/04/21 08/04/21 08/04/21 11:48 16:41 23:49 WBC RBC Hgb Hct MCH MCHC RDW Plt Count Lymph % (Auto) Lymph # (Auto) [place] # (Auto) Seg Neutrophils % Seg Neuts % (Manual) Lymphocytes % (Manual) Nucleated RBC % Seg Neutrophils # Seg Neutrophils # Man Lymphocytes # (Manual) Monocytes # (Manual) D-Dimer ABG pH POC ABG pCO2 POC ABG pO2 ABG pO2 ABG Hemoglobin ABG Oxyhemoglobin ABG Sodium ABG Potassium ABG Chloride ABG Glucose Carboxyhemoglobin Sodium Potassium Chloride Carbon Dioxide BUN Creatinine Glucose POC Glucose 197 H 208 H 209 H Lactic Acid Calcium Magnesium AST ALT Total Protein Albumin Triglycerides Arterial Blood Glucose Arterial Blood Ionized Calcium Urine WBC (Auto) Urine Creatinine Crossmatch 08/05/21 08/05/21 08/05/21 04:00 04:50 04:50 WBC 19.0 H RBC Hgb Hct MCH MCHC RDW 17.0 H Plt Count Lymph % (Auto) Lymph # (Auto) [place] # (Auto) Seg Neutrophils % Seg Neuts % (Manual) 75.0 H Lymphocytes % (Manual) 2.0 L Nucleated RBC % Seg Neutrophils # Seg Neutrophils # Man 14.3 H Lymphocytes # (Manual) 0.4 L Monocytes # (Manual) 1.0 H D-Dimer ABG pH 7.314 L POC ABG pCO2 48.9 H POC ABG pO2 ABG pO2 ABG Hemoglobin ABG Oxyhemoglobin ABG Sodium ABG Potassium 5.0 H ABG Chloride 109.0 H ABG Glucose 234 H Carboxyhemoglobin 0.4 L Sodium Potassium 5.2 H Chloride 110.0 H Carbon Dioxide BUN 90 H Creatinine 1.8 H Glucose 235 H POC Glucose Lactic Acid Calcium Magnesium 2.60 H AST ALT Total Protein Albumin Triglycerides Arterial Blood Glucose 234 H Arterial Blood Ionized Calcium Urine WBC (Auto) Urine Creatinine Crossmatch 08/05/21 08/05/21 08/05/21 06:05 12:02 17:08 WBC RBC Hgb Hct MCH MCHC RDW Plt Count Lymph % (Auto) Lymph # (Auto) [place] # (Auto) Seg Neutrophils % Seg Neuts % (Manual) Lymphocytes % (Manual) Nucleated RBC % Seg Neutrophils # Seg Neutrophils # Man Lymphocytes # (Manual) Monocytes # (Manual) D-Dimer ABG pH POC ABG pCO2 POC ABG pO2 ABG pO2 ABG Hemoglobin ABG Oxyhemoglobin ABG Sodium ABG Potassium ABG Chloride ABG Glucose Carboxyhemoglobin Sodium Potassium Chloride Carbon Dioxide BUN Creatinine Glucose POC Glucose 225 H 193 H 263 H Lactic Acid Calcium Magnesium AST ALT Total Protein Albumin Triglycerides Arterial Blood Glucose Arterial Blood Ionized Calcium Urine WBC (Auto) Urine Creatinine Crossmatch 08/05/21 08/06/21 08/06/21 23:34 05:00 05:00 WBC 16.8 H RBC 3.64 L Hgb Hct MCH MCHC RDW 16.6 H Plt Count Lymph % (Auto) Lymph # (Auto) [place] # (Auto) Seg Neutrophils % Seg Neuts % (Manual) Lymphocytes % (Manual) Nucleated RBC % Seg Neutrophils # Seg Neutrophils # Man Lymphocytes # (Manual) Monocytes # (Manual) D-Dimer ABG pH POC ABG pCO2 POC ABG pO2 ABG pO2 ABG Hemoglobin ABG Oxyhemoglobin ABG Sodium ABG Potassium ABG Chloride ABG Glucose Carboxyhemoglobin Sodium Potassium Chloride 109.3 H Carbon Dioxide BUN 89 H Creatinine 1.6 H Glucose 197 H POC Glucose 224 H Lactic Acid Calcium 8.2 L Magnesium AST ALT Total Protein Albumin Triglycerides Arterial Blood Glucose Arterial Blood Ionized Calcium Urine WBC (Auto) Urine Creatinine Crossmatch 08/06/21 08/06/21 08/06/21 05:26 11:38 16:30 WBC RBC Hgb Hct MCH MCHC RDW Plt Count Lymph % (Auto) Lymph # (Auto) [place] # (Auto) Seg Neutrophils % Seg Neuts % (Manual) Lymphocytes % (Manual) Nucleated RBC % Seg Neutrophils # Seg Neutrophils # Man Lymphocytes # (Manual) Monocytes # (Manual) D-Dimer ABG pH POC ABG pCO2 POC ABG pO2 ABG pO2 ABG Hemoglobin ABG Oxyhemoglobin ABG Sodium ABG Potassium ABG Chloride ABG Glucose Carboxyhemoglobin Sodium Potassium Chloride Carbon Dioxide BUN Creatinine Glucose POC Glucose 168 H 160 H 135 H Lactic Acid Calcium Magnesium AST ALT Total Protein Albumin Triglycerides Arterial Blood Glucose Arterial Blood Ionized Calcium Urine WBC (Auto) Urine Creatinine Crossmatch 08/06/21 08/07/21 08/07/21 23:08 04:00 04:00 WBC 13.6 H RBC 3.30 L Hgb 9.5 L Hct 29.2 L MCH MCHC RDW 16.7 H Plt Count Lymph % (Auto) Lymph # (Auto) [place] # (Auto) Seg Neutrophils % Seg Neuts % (Manual) Lymphocytes % (Manual) Nucleated RBC % Seg Neutrophils # Seg Neutrophils # Man Lymphocytes # (Manual) Monocytes # (Manual) D-Dimer ABG pH POC ABG pCO2 POC ABG pO2 ABG pO2 ABG Hemoglobin ABG Oxyhemoglobin ABG Sodium ABG Potassium ABG Chloride ABG Glucose Carboxyhemoglobin Sodium 146 H Potassium Chloride 111.4 H Carbon Dioxide BUN 78 H Creatinine 1.5 H Glucose 143 H POC Glucose 125 H Lactic Acid Calcium 8.2 L Magnesium AST ALT Total Protein Albumin Triglycerides Arterial Blood Glucose Arterial Blood Ionized Calcium Urine WBC (Auto) Urine Creatinine Crossmatch 08/07/21 08/07/21 08/07/21 04:00 05:16 12:12 WBC RBC Hgb Hct MCH MCHC RDW Plt Count Lymph % (Auto) Lymph # (Auto) [place] # (Auto) Seg Neutrophils % Seg Neuts % (Manual) Lymphocytes % (Manual) Nucleated RBC % Seg Neutrophils # Seg Neutrophils # Man Lymphocytes # (Manual) Monocytes # (Manual) D-Dimer ABG pH POC ABG pCO2 POC ABG pO2 80.1 L ABG pO2 ABG Hemoglobin 9.8 L ABG Oxyhemoglobin ABG Sodium ABG Potassium ABG Chloride 111.0 H ABG Glucose 157 H Carboxyhemoglobin 0.3 L Sodium Potassium Chloride Carbon Dioxide BUN Creatinine Glucose POC Glucose 144 H 125 H Lactic Acid Calcium Magnesium AST ALT Total Protein Albumin Triglycerides Arterial Blood Glucose 157 H Arterial Blood Ionized Calcium 4.5 L Urine WBC (Auto) Urine Creatinine Crossmatch 08/07/21 08/08/21 08/08/21 23:20 04:47 06:00 WBC 13.8 H RBC 3.19 L Hgb 9.3 L Hct 28.4 L MCH MCHC RDW 16.4 H Plt Count Lymph % (Auto) Lymph # (Auto) [place] # (Auto) Seg Neutrophils % Seg Neuts % (Manual) Lymphocytes % (Manual) Nucleated RBC % Seg Neutrophils # Seg Neutrophils # Man Lymphocytes # (Manual) Monocytes # (Manual) D-Dimer ABG pH POC ABG pCO2 POC ABG pO2 ABG pO2 ABG Hemoglobin ABG Oxyhemoglobin ABG Sodium ABG Potassium ABG Chloride ABG Glucose Carboxyhemoglobin Sodium Potassium Chloride Carbon Dioxide BUN Creatinine Glucose POC Glucose 118 H 130 H Lactic Acid Calcium Magnesium AST ALT Total Protein Albumin Triglycerides Arterial Blood Glucose Arterial Blood Ionized Calcium Urine WBC (Auto) Urine Creatinine Crossmatch 08/08/21 08/08/21 08/08/21 06:00 11:33 17:54 WBC RBC Hgb Hct MCH MCHC RDW Plt Count Lymph % (Auto) Lymph # (Auto) [place] # (Auto) Seg Neutrophils % Seg Neuts % (Manual) Lymphocytes % (Manual) Nucleated RBC % Seg Neutrophils # Seg Neutrophils # Man Lymphocytes # (Manual) Monocytes # (Manual) D-Dimer ABG pH POC ABG pCO2 POC ABG pO2 ABG pO2 ABG Hemoglobin ABG Oxyhemoglobin ABG Sodium ABG Potassium ABG Chloride ABG Glucose Carboxyhemoglobin Sodium 147 H Potassium Chloride 112.4 H Carbon Dioxide BUN 71 H Creatinine 1.4 H Glucose 124 H POC Glucose 126 H 124 H Lactic Acid Calcium Magnesium AST ALT Total Protein Albumin Triglycerides Arterial Blood Glucose Arterial Blood Ionized Calcium Urine WBC (Auto) Urine Creatinine Crossmatch 08/08/21 08/09/21 08/09/21 23:41 06:06 10:00 WBC RBC Hgb Hct MCH MCHC RDW Plt Count Lymph % (Auto) Lymph # (Auto) [place] # (Auto) Seg Neutrophils % Seg Neuts % (Manual) Lymphocytes % (Manual) Nucleated RBC % Seg Neutrophils # Seg Neutrophils # Man Lymphocytes # (Manual) Monocytes # (Manual) D-Dimer ABG pH POC ABG pCO2 POC ABG pO2 ABG pO2 ABG Hemoglobin ABG Oxyhemoglobin ABG Sodium ABG Potassium ABG Chloride ABG Glucose Carboxyhemoglobin Sodium 146 H Potassium Chloride 111.3 H Carbon Dioxide BUN 72 H Creatinine 1.5 H Glucose 119 H POC Glucose 119 H 127 H Lactic Acid Calcium Magnesium AST ALT 69 H Total Protein 5.2 L Albumin 2.6 L Triglycerides Arterial Blood Glucose Arterial Blood Ionized Calcium Urine WBC (Auto) Urine Creatinine Crossmatch 08/09/21 08/09/21 08/09/21 10:00 11:34 16:50 WBC 13.0 H RBC 2.88 L Hgb 8.5 L Hct 25.8 L MCH MCHC RDW 16.5 H Plt Count Lymph % (Auto) Lymph # (Auto) [place] # (Auto) Seg Neutrophils % Seg Neuts % (Manual) Lymphocytes % (Manual) Nucleated RBC % Seg Neutrophils # Seg Neutrophils # Man Lymphocytes # (Manual) Monocytes # (Manual) D-Dimer ABG pH POC ABG pCO2 POC ABG pO2 ABG pO2 ABG Hemoglobin ABG Oxyhemoglobin ABG Sodium ABG Potassium ABG Chloride ABG Glucose Carboxyhemoglobin Sodium Potassium Chloride Carbon Dioxide BUN Creatinine Glucose POC Glucose 114 H 117 H Lactic Acid Calcium Magnesium AST ALT Total Protein Albumin Triglycerides Arterial Blood Glucose Arterial Blood Ionized Calcium Urine WBC (Auto) Urine Creatinine Crossmatch 08/10/21 08/10/21 08/10/21 00:12 05:20 05:20 WBC 13.2 H RBC 2.92 L Hgb 8.4 L Hct 25.9 L MCH MCHC RDW 16.7 H Plt Count Lymph % (Auto) Lymph # (Auto) [place] # (Auto) Seg Neutrophils % Seg Neuts % (Manual) Lymphocytes % (Manual) Nucleated RBC % Seg Neutrophils # Seg Neutrophils # Man Lymphocytes # (Manual) Monocytes # (Manual) D-Dimer ABG pH POC ABG pCO2 POC ABG pO2 ABG pO2 ABG Hemoglobin ABG Oxyhemoglobin ABG Sodium ABG Potassium ABG Chloride ABG Glucose Carboxyhemoglobin Sodium 147 H Potassium Chloride 111.8 H Carbon Dioxide BUN 68 H Creatinine 1.4 H Glucose POC Glucose 114 H Lactic Acid Calcium Magnesium AST ALT Total Protein Albumin Triglycerides Arterial Blood Glucose Arterial Blood Ionized Calcium Urine WBC (Auto) Urine Creatinine Crossmatch 08/10/21 08/10/21 08/11/21 17:52 18:23 02:51 WBC RBC Hgb Hct MCH MCHC RDW Plt Count Lymph % (Auto) Lymph # (Auto) [place] # (Auto) Seg Neutrophils % Seg Neuts % (Manual) Lymphocytes % (Manual) Nucleated RBC % Seg Neutrophils # Seg Neutrophils # Man Lymphocytes # (Manual) Monocytes # (Manual) D-Dimer ABG pH POC ABG pCO2 POC ABG pO2 ABG pO2 ABG Hemoglobin 8.7 L ABG Oxyhemoglobin ABG Sodium ABG Potassium ABG Chloride 111.0 H ABG Glucose Carboxyhemoglobin 0.2 L Sodium Potassium Chloride Carbon Dioxide BUN Creatinine Glucose POC Glucose 55 L 133 H Lactic Acid Calcium Magnesium AST ALT Total Protein Albumin Triglycerides Arterial Blood Glucose Arterial Blood Ionized Calcium 4.5 L Urine WBC (Auto) Urine Creatinine Crossmatch 08/11/21 08/11/21 08/11/21 04:30 11:36 17:11 WBC RBC Hgb Hct MCH MCHC RDW Plt Count Lymph % (Auto) Lymph # (Auto) [place] # (Auto) Seg Neutrophils % Seg Neuts % (Manual) Lymphocytes % (Manual) Nucleated RBC % Seg Neutrophils # Seg Neutrophils # Man Lymphocytes # (Manual) Monocytes # (Manual) D-Dimer ABG pH POC ABG pCO2 POC ABG pO2 ABG pO2 ABG Hemoglobin ABG Oxyhemoglobin ABG Sodium ABG Potassium ABG Chloride ABG Glucose Carboxyhemoglobin Sodium Potassium Chloride 110.0 H Carbon Dioxide BUN 59 H Creatinine Glucose POC Glucose 116 H 115 H Lactic Acid Calcium 8.3 L Magnesium AST ALT 64 H Total Protein 5.5 L Albumin 2.6 L Triglycerides Arterial Blood Glucose Arterial Blood Ionized Calcium Urine WBC (Auto) Urine Creatinine Crossmatch 08/11/21 08/11/21 08/12/21 23:18 Unknown 05:05 WBC 12.2 H RBC 2.81 L Hgb 8.4 L Hct 25.4 L MCH MCHC RDW 17.0 H Plt Count Lymph % (Auto) Lymph # (Auto) [place] # (Auto) Seg Neutrophils % Seg Neuts % (Manual) Lymphocytes % (Manual) Nucleated RBC % Seg Neutrophils # Seg Neutrophils # Man Lymphocytes # (Manual) Monocytes # (Manual) D-Dimer ABG pH POC ABG pCO2 POC ABG pO2 ABG pO2 ABG Hemoglobin ABG Oxyhemoglobin ABG Sodium ABG Potassium ABG Chloride ABG Glucose Carboxyhemoglobin Sodium Potassium Chloride Carbon Dioxide BUN Creatinine Glucose POC Glucose 126 H 131 H Lactic Acid Calcium Magnesium AST ALT Total Protein Albumin Triglycerides Arterial Blood Glucose Arterial Blood Ionized Calcium Urine WBC (Auto) Urine Creatinine Crossmatch 08/12/21 08/12/21 08/12/21 12:14 17:19 21:41 WBC 16.5 H RBC 3.04 L Hgb 8.9 L Hct 27.3 L MCH MCHC RDW 17.0 H Plt Count Lymph % (Auto) 9.0 L Lymph # (Auto) [place] # (Auto) 1.1 H Seg Neutrophils % 83.7 H Seg Neuts % (Manual) Lymphocytes % (Manual) Nucleated RBC % Seg Neutrophils # 13.8 H Seg Neutrophils # Man Lymphocytes # (Manual) Monocytes # (Manual) D-Dimer ABG pH POC ABG pCO2 POC ABG pO2 ABG pO2 ABG Hemoglobin ABG Oxyhemoglobin ABG Sodium ABG Potassium ABG Chloride ABG Glucose Carboxyhemoglobin Sodium Potassium Chloride Carbon Dioxide BUN Creatinine Glucose POC Glucose 123 H 129 H Lactic Acid Calcium Magnesium AST ALT Total Protein Albumin Triglycerides Arterial Blood Glucose Arterial Blood Ionized Calcium Urine WBC (Auto) Urine Creatinine Crossmatch 08/12/21 08/12/2108/13/21 21:41 23:26 05:24 WBC RBC Hgb Hct MCH MCHC RDW Plt Count Lymph % (Auto) Lymph # (Auto) [place] # (Auto) Seg Neutrophils % Seg Neuts % (Manual) Lymphocytes % (Manual) Nucleated RBC % Seg Neutrophils # Seg Neutrophils # Man Lymphocytes # (Manual) Monocytes # (Manual) D-Dimer ABG pH POC ABG pCO2 POC ABG pO2 ABG pO2 ABG Hemoglobin ABG Oxyhemoglobin ABG Sodium ABG Potassium ABG Chloride ABG Glucose Carboxyhemoglobin Sodium 147 H Potassium Chloride 110.7 H Carbon Dioxide BUN 48 H Creatinine Glucose 147 H POC Glucose 133 H 109 H Lactic Acid Calcium Magnesium AST ALT Total Protein Albumin Triglycerides Arterial Blood Glucose Arterial Blood Ionized Calcium Urine WBC (Auto) Urine Creatinine Crossmatch 08/13/21 08/13/21 08/13/21 05:43 11:36 18:00 WBC RBC Hgb Hct MCH MCHC RDW Plt Count Lymph % (Auto) Lymph # (Auto) [place] # (Auto) Seg Neutrophils % Seg Neuts % (Manual) Lymphocytes % (Manual) Nucleated RBC % Seg Neutrophils # Seg Neutrophils # Man Lymphocytes # (Manual) Monocytes # (Manual) D-Dimer ABG pH POC ABG pCO2 POC ABG pO2 76.8 L ABG pO2 ABG Hemoglobin 8.6 L ABG Oxyhemoglobin ABG Sodium ABG Potassium ABG Chloride 112.0 H ABG Glucose 126 H Carboxyhemoglobin 0.4 L Sodium Potassium Chloride Carbon Dioxide BUN Creatinine Glucose POC Glucose 127 H 128 H Lactic Acid Calcium Magnesium AST ALT Total Protein Albumin Triglycerides Arterial Blood Glucose 126 H Arterial Blood Ionized Calcium 4.4 L Urine WBC (Auto) Urine Creatinine Crossmatch 08/13/21 08/14/21 08/14/21 23:27 04:00 04:00 WBC RBC 2.65 L Hgb 8.1 L Hct 24.0 L MCH MCHC RDW 17.1 H Plt Count Lymph % (Auto) Lymph # (Auto) [place] # (Auto) Seg Neutrophils % Seg Neuts % (Manual) Lymphocytes % (Manual) Nucleated RBC % Seg Neutrophils # Seg Neutrophils # Man Lymphocytes # (Manual) Monocytes # (Manual) D-Dimer ABG pH POC ABG pCO2 POC ABG pO2 ABG pO2 ABG Hemoglobin ABG Oxyhemoglobin ABG Sodium ABG Potassium ABG Chloride ABG Glucose Carboxyhemoglobin Sodium 146 H Potassium Chloride 108.7 H Carbon Dioxide 31 H BUN 38 H Creatinine Glucose 115 H POC Glucose 125 H Lactic Acid Calcium Magnesium AST ALT Total Protein 5.8 L Albumin 2.6 L Triglycerides Arterial Blood Glucose Arterial Blood Ionized Calcium Urine WBC (Auto) Urine Creatinine Crossmatch 08/14/21 08/14/21 08/15/21 05:24 11:34 05:16 WBC RBC Hgb Hct MCH MCHC RDW Plt Count Lymph % (Auto) Lymph # (Auto) [place] # (Auto) Seg Neutrophils % Seg Neuts % (Manual) Lymphocytes % (Manual) Nucleated RBC % Seg Neutrophils # Seg Neutrophils # Man Lymphocytes # (Manual) Monocytes # (Manual) D-Dimer ABG pH POC ABG pCO2 POC ABG pO2 ABG pO2 ABG Hemoglobin ABG Oxyhemoglobin ABG Sodium ABG Potassium ABG Chloride ABG Glucose Carboxyhemoglobin Sodium Potassium Chloride Carbon Dioxide BUN Creatinine Glucose POC Glucose 126 H 126 H 110 H Lactic Acid Calcium Magnesium AST ALT Total Protein Albumin Triglycerides Arterial Blood Glucose Arterial Blood Ionized Calcium Urine WBC (Auto) Urine Creatinine Crossmatch 08/15/21 08/15/21 08/15/21 11:37 17:48 Unknown WBC RBC 2.53 L Hgb 7.7 L Hct 23.0 L MCH MCHC RDW 17.0 H Plt Count Lymph % (Auto) 12.5 L Lymph # (Auto) 1.0 L [place] # (Auto) Seg Neutrophils % 80.4 H Seg Neuts % (Manual) Lymphocytes % (Manual) Nucleated RBC % Seg Neutrophils # Seg Neutrophils # Man Lymphocytes # (Manual) Monocytes # (Manual) D-Dimer ABG pH POC ABG pCO2 POC ABG pO2 ABG pO2 ABG Hemoglobin ABG Oxyhemoglobin ABG Sodium ABG Potassium ABG Chloride ABG Glucose Carboxyhemoglobin Sodium Potassium Chloride Carbon Dioxide BUN Creatinine Glucose POC Glucose 106 H 110 H Lactic Acid Calcium Magnesium AST ALT Total Protein Albumin Triglycerides Arterial Blood Glucose Arterial Blood Ionized Calcium Urine WBC (Auto) Urine Creatinine Crossmatch 08/15/21 08/16/21 08/16/21 Unknown 05:40 12:00 WBC RBC Hgb Hct MCH MCHC RDW Plt Count Lymph % (Auto) Lymph # (Auto) [place] # (Auto) Seg Neutrophils % Seg Neuts % (Manual) Lymphocytes % (Manual) Nucleated RBC % Seg Neutrophils # Seg Neutrophils # Man Lymphocytes # (Manual) Monocytes # (Manual) D-Dimer ABG pH POC ABG pCO2 POC ABG pO2 ABG pO2 ABG Hemoglobin ABG Oxyhemoglobin ABG Sodium ABG Potassium ABG Chloride ABG Glucose Carboxyhemoglobin Sodium Potassium Chloride 107.2 H Carbon Dioxide BUN 36 H Creatinine Glucose 109 H POC Glucose 111 H 114 H Lactic Acid Calcium Magnesium AST ALT 63 H Total Protein 5.5 L Albumin 2.4 L Triglycerides Arterial Blood Glucose Arterial Blood Ionized Calcium Urine WBC (Auto) Urine Creatinine Crossmatch 08/16/21 08/16/21 08/16/21 12:36 12:36 17:08 WBC RBC 2.54 L Hgb 7.3 L Hct 22.8 L MCH MCHC RDW 17.1 H Plt Count Lymph % (Auto) Lymph # (Auto) [place] # (Auto) Seg Neutrophils % Seg Neuts % (Manual) Lymphocytes % (Manual) Nucleated RBC % Seg Neutrophils # Seg Neutrophils # Man Lymphocytes # (Manual) Monocytes # (Manual) D-Dimer ABG pH POC ABG pCO2 POC ABG pO2 ABG pO2 ABG Hemoglobin ABG Oxyhemoglobin ABG Sodium ABG Potassium ABG Chloride ABG Glucose Carboxyhemoglobin Sodium Potassium Chloride Carbon Dioxide BUN 39 H Creatinine Glucose 123 H POC Glucose 112 H Lactic Acid Calcium Magnesium AST ALT Total Protein Albumin Triglycerides Arterial Blood Glucose Arterial Blood Ionized Calcium Urine WBC (Auto) Urine Creatinine Crossmatch 08/17/21 08/17/21 08/17/21 05:26 07:27 11:19 WBC RBC Hgb Hct MCH MCHC RDW Plt Count Lymph % (Auto) Lymph # (Auto) [place] # (Auto) Seg Neutrophils % Seg Neuts % (Manual) Lymphocytes % (Manual) Nucleated RBC % Seg Neutrophils # Seg Neutrophils # Man Lymphocytes # (Manual) Monocytes # (Manual) D-Dimer ABG pH 7.292 L POC ABG pCO2 52.2 H POC ABG pO2 80.8 L ABG pO2 ABG Hemoglobin 9.2 L ABG Oxyhemoglobin 93.8 L ABG Sodium 135.3 L ABG Potassium ABG Chloride ABG Glucose 135 H Carboxyhemoglobin 0.2 L Sodium Potassium Chloride Carbon Dioxide BUN Creatinine Glucose POC Glucose 121 H 137 H Lactic Acid Calcium Magnesium AST ALT Total Protein Albumin Triglycerides Arterial Blood Glucose 135 H Arterial Blood Ionized Calcium Urine WBC (Auto) Urine Creatinine Crossmatch 08/17/21 08/17/21 08/17/21 17:20 21:23 Unknown WBC RBC 2.49 L Hgb 7.5 L Hct 22.2 L MCH MCHC RDW 16.5 H Plt Count Lymph % (Auto) Lymph # (Auto) [place] # (Auto) Seg Neutrophils % Seg Neuts % (Manual) Lymphocytes % (Manual) Nucleated RBC % Seg Neutrophils # Seg Neutrophils # Man Lymphocytes # (Manual) Monocytes # (Manual) D-Dimer ABG pH 7.337 L POC ABG pCO2 POC ABG pO2 ABG pO2 122.5 H ABG Hemoglobin 7.6 L ABG Oxyhemoglobin ABG Sodium ABG Potassium ABG Chloride ABG Glucose Carboxyhemoglobin Sodium Potassium Chloride Carbon Dioxide BUN Creatinine Glucose POC Glucose 106 H Lactic Acid Calcium Magnesium AST ALT Total Protein Albumin Triglycerides Arterial Blood Glucose Arterial Blood Ionized Calcium Urine WBC (Auto) Urine Creatinine Crossmatch 08/17/21 08/18/21 08/18/21 Unknown 00:04 05:10 WBC RBC 2.65 L Hgb 7.9 L Hct 23.7 L MCH MCHC RDW 17.0 H Plt Count Lymph % (Auto) Lymph # (Auto) [place] # (Auto) Seg Neutrophils % Seg Neuts % (Manual) Lymphocytes % (Manual) Nucleated RBC % Seg Neutrophils # Seg Neutrophils # Man Lymphocytes # (Manual) Monocytes # (Manual) D-Dimer ABG pH POC ABG pCO2 POC ABG pO2 ABG pO2 ABG Hemoglobin ABG Oxyhemoglobin ABG Sodium ABG Potassium ABG Chloride ABG Glucose Carboxyhemoglobin Sodium Potassium Chloride Carbon Dioxide BUN 37 H Creatinine Glucose 117 H POC Glucose 107 H Lactic Acid Calcium Magnesium AST ALT Total Protein Albumin Triglycerides Arterial Blood Glucose Arterial Blood Ionized Calcium Urine WBC (Auto) Urine Creatinine Crossmatch 08/18/21 08/18/21 08/18/21 05:10 05:10 05:40 WBC RBC Hgb Hct MCH MCHC RDW Plt Count Lymph % (Auto) Lymph # (Auto) [place] # (Auto) Seg Neutrophils % Seg Neuts % (Manual) Lymphocytes % (Manual) Nucleated RBC % Seg Neutrophils # Seg Neutrophils # Man Lymphocytes # (Manual) Monocytes # (Manual) D-Dimer ABG pH POC ABG pCO2 POC ABG pO2 ABG pO2 ABG Hemoglobin ABG Oxyhemoglobin ABG Sodium ABG Potassium ABG Chloride ABG Glucose Carboxyhemoglobin Sodium 136 L Potassium Chloride Carbon Dioxide BUN 41 H Creatinine Glucose 122 H POC Glucose 122 H Lactic Acid Calcium Magnesium AST ALT Total Protein Albumin Triglycerides Arterial Blood Glucose Arterial Blood Ionized Calcium Urine WBC (Auto) Urine Creatinine Crossmatch See Detail 08/18/21 08/18/21 08/18/21 11:47 18:21 23:53 WBC RBC Hgb Hct MCH MCHC RDW Plt Count Lymph % (Auto) Lymph # (Auto) [place] # (Auto) Seg Neutrophils % Seg Neuts % (Manual) Lymphocytes % (Manual) Nucleated RBC % Seg Neutrophils # Seg Neutrophils # Man Lymphocytes # (Manual) Monocytes # (Manual) D-Dimer ABG pH POC ABG pCO2 POC ABG pO2 ABG pO2 ABG Hemoglobin ABG Oxyhemoglobin ABG Sodium ABG Potassium ABG Chloride ABG Glucose Carboxyhemoglobin Sodium Potassium Chloride Carbon Dioxide BUN Creatinine Glucose POC Glucose 126 H 110 H 114 H Lactic Acid Calcium Magnesium AST ALT Total Protein Albumin Triglycerides Arterial Blood Glucose Arterial Blood Ionized Calcium Urine WBC (Auto) Urine Creatinine Crossmatch 08/19/21 08/19/21 08/19/21 03:20 03:20 05:21 WBC RBC 2.74 L Hgb 8.5 L Hct 24.8 L MCH MCHC RDW 16.8 H Plt Count Lymph % (Auto) Lymph # (Auto) [place] # (Auto) Seg Neutrophils % Seg Neuts % (Manual) Lymphocytes % (Manual) Nucleated RBC % Seg Neutrophils # Seg Neutrophils # Man Lymphocytes # (Manual) Monocytes # (Manual) D-Dimer ABG pH POC ABG pCO2 POC ABG pO2 ABG pO2 ABG Hemoglobin ABG Oxyhemoglobin ABG Sodium ABG Potassium ABG Chloride ABG Glucose Carboxyhemoglobin Sodium 133 L Potassium Chloride Carbon Dioxide BUN 40 H Creatinine Glucose 110 H POC Glucose 107 H Lactic Acid Calcium Magnesium AST ALT Total Protein Albumin Triglycerides Arterial Blood Glucose Arterial Blood Ionized Calcium Urine WBC (Auto) Urine Creatinine Crossmatch 08/19/21 08/19/21 08/19/21 11:41 13:45 17:23 WBC RBC Hgb Hct MCH MCHC RDW Plt Count Lymph % (Auto) Lymph # (Auto) [place] # (Auto) Seg Neutrophils % Seg Neuts % (Manual) Lymphocytes % (Manual) Nucleated RBC % Seg Neutrophils # Seg Neutrophils # Man Lymphocytes # (Manual) Monocytes # (Manual) D-Dimer ABG pH POC ABG pCO2 POC ABG pO2 145.3 H ABG pO2 ABG Hemoglobin 10.0 L ABG Oxyhemoglobin 98.4 H ABG Sodium 134.0 L ABG Potassium ABG Chloride ABG Glucose 141 H Carboxyhemoglobin 0.3 L Sodium Potassium Chloride Carbon Dioxide BUN Creatinine Glucose POC Glucose 124 H 133 H Lactic Acid Calcium Magnesium AST ALT Total Protein Albumin Triglycerides Arterial Blood Glucose 141 H Arterial Blood Ionized Calcium Urine WBC (Auto) Urine Creatinine Crossmatch 08/19/21 08/20/21 08/20/21 23:32 06:00 06:00 WBC RBC 2.53 L Hgb 8.3 L Hct 22.6 L MCH 33 H MCHC 37 H RDW 17.0 H Plt Count Lymph % (Auto) Lymph # (Auto) [place] # (Auto) Seg Neutrophils % Seg Neuts % (Manual) Lymphocytes % (Manual) Nucleated RBC % Seg Neutrophils # Seg Neutrophils # Man Lymphocytes # (Manual) Monocytes # (Manual) D-Dimer ABG pH POC ABG pCO2 POC ABG pO2 ABG pO2 ABG Hemoglobin ABG Oxyhemoglobin ABG Sodium ABG Potassium ABG Chloride ABG Glucose Carboxyhemoglobin Sodium Potassium Chloride Carbon Dioxide BUN Creatinine Glucose POC Glucose 107 H Lactic Acid Calcium Magnesium AST ALT Total Protein Albumin Triglycerides 1492 H Arterial Blood Glucose Arterial Blood Ionized Calcium Urine WBC (Auto) Urine Creatinine Crossmatch 08/20/21 08/20/21 08/20/21 06:00 16:55 23:55 WBC RBC Hgb Hct MCH MCHC RDW Plt Count Lymph % (Auto) Lymph # (Auto) [place] # (Auto) Seg Neutrophils % Seg Neuts % (Manual) Lymphocytes % (Manual) Nucleated RBC % Seg Neutrophils # Seg Neutrophils # Man Lymphocytes # (Manual) Monocytes # (Manual) D-Dimer ABG pH POC ABG pCO2 POC ABG pO2 ABG pO2 ABG Hemoglobin ABG Oxyhemoglobin ABG Sodium ABG Potassium ABG Chloride ABG Glucose Carboxyhemoglobin Sodium 134 L Potassium Chloride Carbon Dioxide BUN 42 H Creatinine Glucose 102 H POC Glucose 163 H Lactic Acid Calcium 8.1 L Magnesium AST < 5 L ALT < 5 L Total Protein 4.7 L Albumin 2.2 L Triglycerides 207 H Arterial Blood Glucose Arterial Blood Ionized Calcium Urine WBC (Auto) Urine Creatinine Crossmatch 08/21/21 08/21/21 08/21/21 06:17 12:41 17:05 WBC RBC Hgb Hct MCH MCHC RDW Plt Count Lymph % (Auto) Lymph # (Auto) [place] # (Auto) Seg Neutrophils % Seg Neuts % (Manual) Lymphocytes % (Manual) Nucleated RBC % Seg Neutrophils # Seg Neutrophils # Man Lymphocytes # (Manual) Monocytes # (Manual) D-Dimer ABG pH POC ABG pCO2 POC ABG pO2 ABG pO2 ABG Hemoglobin ABG Oxyhemoglobin ABG Sodium ABG Potassium ABG Chloride ABG Glucose Carboxyhemoglobin Sodium Potassium Chloride Carbon Dioxide BUN Creatinine Glucose POC Glucose 169 H 132 H 157 H Lactic Acid Calcium Magnesium AST ALT Total Protein Albumin Triglycerides Arterial Blood Glucose Arterial Blood Ionized Calcium Urine WBC (Auto) Urine Creatinine Crossmatch 08/21/21 08/22/21 08/22/21 23:39 04:00 05:51 WBC RBC 2.80 L Hgb 8.2 L Hct 25.4 L MCH MCHC RDW 16.9 H Plt Count 465 H Lymph % (Auto) Lymph # (Auto) [place] # (Auto) Seg Neutrophils % Seg Neuts % (Manual) 84.0 H Lymphocytes % (Manual) 7.0 L Nucleated RBC % 1.0 H Seg Neutrophils # Seg Neutrophils # Man Lymphocytes # (Manual) 0.5 L Monocytes # (Manual) D-Dimer ABG pH POC ABG pCO2 POC ABG pO2 ABG pO2 ABG Hemoglobin ABG Oxyhemoglobin ABG Sodium ABG Potassium ABG Chloride ABG Glucose Carboxyhemoglobin Sodium Potassium Chloride Carbon Dioxide BUN Creatinine Glucose POC Glucose 179 H 134 H Lactic Acid Calcium Magnesium AST ALT Total Protein Albumin Triglycerides Arterial Blood Glucose Arterial Blood Ionized Calcium Urine WBC (Auto) Urine Creatinine Crossmatch 08/22/21 08/23/21 08/23/21 Unknown 05:00 05:00 WBC RBC 2.65 L Hgb 8.1 L Hct 23.9 L MCH MCHC RDW 17.9 H Plt Count 475 H Lymph % (Auto) Lymph # (Auto) [place] # (Auto) Seg Neutrophils % Seg Neuts % (Manual) Lymphocytes % (Manual) Nucleated RBC % Seg Neutrophils # Seg Neutrophils # Man Lymphocytes # (Manual) Monocytes # (Manual) D-Dimer ABG pH POC ABG pCO2 POC ABG pO2 ABG pO2 ABG Hemoglobin ABG Oxyhemoglobin ABG Sodium ABG Potassium ABG Chloride ABG Glucose Carboxyhemoglobin Sodium Potassium Chloride 107.2 H Carbon Dioxide BUN 52 H 51 H Creatinine Glucose 137 H POC Glucose Lactic Acid Calcium Magnesium AST ALT 58 H Total Protein 6.0 L D 5.6 L Albumin 2.7 L 2.6 L Triglycerides Arterial Blood Glucose Arterial Blood Ionized Calcium Urine WBC (Auto) Urine Creatinine Crossmatch Chest x-ray: other (none today) Allied health notes reviewed: nursing
--- NOTE | 2021-08-23 12:59 | Hem/Onc Progress Note ---
Subjective Date of service: 08/23/21 Principal diagnosis: metastatic breast cancer Interval history: oncology televisit f/u cpt [id number] dx metastatic breast cancer 66yo woman with h/o metastatic breast cancer affecting lungs bronchoscopy biopsy-->carcinoma c/w breast primary, ER/FL/H2N neg, TTf1 neg s/p trach and pg tube 08/10/21-->intervention for bleeding at Trach 08/12/21 has been on minimal oxygen, but still requiring sedation has had arrythmia History of left leg DVT--was on "full" dose lovenox BID for weeks As per Dr. Hanna---DVT has resolved--recommending full dose anticoagulation with eliquis or lovenox to prevent recurrent thrombosis WBC 5.4 Hgb 8.1 hct 23.9 Plt 475 IMP: metastatic breast cancer with lung and mediastinal LN mets not a good candidate for chemotherapy, but chest tumor radiation may be possible unable to safely stop sedation so far mod severe anemia partly due to recent bleeding Spep results negative, c/w acute inflammatory process and hypogammaglobulinemia Thrombocytosis reactive to acute inflammatory process REC: Recommend low dose lovenox 40mg daily discussing transfer to LTAC; consider transfer to [place] Spoke to her oncologist Dr. Wade, does not recommend further aggressive intervention because patient will be not be able to tolerate measures end of life discussion is appropriate, consider allowing family to see patient DATA REVIEWED BELOW Laboratory Last Values WBC 5.4 K/mm3 (4.5-11.0) 08/23/21 05:00 RBC 2.65 M/mm3 (3.65-5.03) L 08/23/21 05:00 Hgb 8.1 gm/dl (10.1-14.3) L 08/23/21 05:00 Hct 23.9 % (30.3-42.9) L 08/23/21 05:00 MCV 90 fl (79-97) 08/23/21 05:00 MCH 31 pg (28-32) 08/23/21 05:00 MCHC 34 % (30-34) 08/23/21 05:00 RDW 17.9 % (13.2-15.2) H 08/23/21 05:00 Plt Count 475 K/mm3 (140-440) H 08/23/21 05:00 Lymph % (Auto) 12.5 % (13.4-35.0) L 08/15/21 Unknown [place] % (Auto) 5.9 % (0.0-7.3) 08/15/21 Unknown Eos % (Auto) 0.9 % (0.0-4.3) 08/15/21 Unknown Baso % (Auto) 0.3 % (0.0-1.8) 08/15/21 Unknown Lymph # (Auto) 1.0 K/mm3 (1.2-5.4) L 08/15/21 Unknown [place] # (Auto) 0.5 K/mm3 (0.0-0.8) 08/15/21 Unknown Eos # (Auto) 0.1 K/mm3 (0.0-0.4) 08/15/21 Unknown Baso # (Auto) 0.0 K/mm3 (0.0-0.1) 08/15/21 Unknown Add Manual Diff Complete 08/22/21 04:00 Total Counted 100 08/22/21 04:00 Seg Neutrophils % 80.4 % (40.0-70.0) H 08/15/21 Unknown Seg Neuts % (Manual) 84.0 % (40.0-70.0) H 08/22/21 04:00 Band Neutrophils % 3.0 % 08/22/21 04:00 Lymphocytes % (Manual) 7.0 % (13.4-35.0) L 08/22/21 04:00 Monocytes % (Manual) 6.0 % (0.0-7.3) 08/22/21 04:00 Eosinophils % (Manual) 1.0 % (0.0-4.3) 08/05/21 04:50 Metamyelocytes % 6.0 % 08/05/21 04:50 Myelocytes % 3.0 % 08/05/21 04:50 Nucleated RBC % 1.0 % (0.0-0.9) H 08/22/21 04:00 Seg Neutrophils # 6.4 K/mm3 (1.8-7.7) 08/15/21 Unknown Seg Neutrophils # Man 6.6 K/mm3 (1.8-7.7) 08/22/21 04:00 Band Neutrophils # 0.2 K/mm3 08/22/21 04:00 Lymphocytes # (Manual) 0.5 K/mm3 (1.2-5.4) L 08/22/21 04:00 Abs React Lymphs (Man) 0.0 K/mm3 08/22/21 04:00 Monocytes # (Manual) 0.5 K/mm3 (0.0-0.8) 08/22/21 04:00 Eosinophils # (Manual) 0.0 K/mm3 (0.0-0.4) 08/22/21 04:00 Basophils # (Manual) 0.0 K/mm3 (0.0-0.1) 08/22/21 04:00 Metamyelocytes # 0.0 K/mm3 08/22/21 04:00 Myelocytes # 0.0 K/mm3 08/22/21 04:00 Promyelocytes # 0.0 K/mm3 08/22/21 04:00 Blast Cells # 0.0 K/mm3 08/22/21 04:00 WBC Morphology Not Reportable 08/22/21 04:00 Hypersegmented Neuts Not Reportable 08/22/21 04:00 Hyposegmented Neuts Not Reportable 08/22/21 04:00 Hypogranular Neuts Not Reportable 08/22/21 04:00 Smudge Cells Not Reportable 08/22/21 04:00 Toxic Granulation Not Reportable 08/22/21 04:00 Toxic Vacuolation Not Reportable 08/22/21 04:00 Dohle Bodies Not Reportable 08/22/21 04:00 Pelger-Huet Anomaly Not Reportable 08/22/21 04:00 Beryl Rods Not Reportable 08/22/21 04:00 Platelet Estimate Consistent w auto 08/22/21 04:00 Clumped Platelets Few 08/22/21 04:00 Plt Clumps, EDTA Not Reportable 08/22/21 04:00 Large Platelets Not Reportable 08/22/21 04:00 Giant Platelets Not Reportable 08/22/21 04:00 Platelet Satelliting Not Reportable 08/22/21 04:00 Plt Morphology Comment Not Reportable 08/22/21 04:00 RBC Morphology Not Reportable 08/22/21 04:00 Dimorphic RBCs Not Reportable 08/22/21 04:00 Polychromasia Not Reportable 08/22/21 04:00 Hypochromasia Few 08/22/21 04:00 Poikilocytosis Not Reportable 08/22/21 04:00 Anisocytosis 1+ 08/22/21 04:00 Microcytosis Not Reportable 08/22/21 04:00 Macrocytosis Not Reportable 08/22/21 04:00 Spherocytes Not Reportable 08/22/21 04:00 Pappenheimer Bodies Not Reportable 08/22/21 04:00 Sickle Cells Not Reportable 08/22/21 04:00 Target Cells Not Reportable 08/22/21 04:00 Tear Drop Cells Not Reportable 08/22/21 04:00 Ovalocytes Not Reportable 08/22/21 04:00 Helmet Cells Not Reportable 08/22/21 04:00 Paul-Meacham Bodies Not Reportable 08/22/21 04:00 Marrero Rings Not Reportable 08/22/21 04:00 Estelita Cells Not Reportable 08/22/21 04:00 Bite Cells Not Reportable 08/22/21 04:00 Crenated Cell Not Reportable 08/22/21 04:00 Elliptocytes Not Reportable 08/22/21 04:00 Acanthocytes (Spur) Not Reportable 08/22/21 04:00 Rouleaux Not Reportable 08/22/21 04:00 Hemoglobin C Crystals Not Reportable 08/22/21 04:00 Schistocytes Not Reportable 08/22/21 04:00 Malaria parasites Not Reportable 08/22/21 04:00 Gurmeet Bodies Not Reportable 08/22/21 04:00 Hem Pathologist Commnt No 08/22/21 04:00 PT 14.5 Sec. (12.2-14.9) 08/12/21 21:41 INR 1.08 (0.87-1.13) 08/12/21 21:41 APTT 29.9 Sec. (24.2-36.6) 08/10/21 05:20 D-Dimer 852.47 ng/mlDDU (0-234) H 07/29/21 07:17 ABG pH 7.401 (7.320-7.450) 08/19/21 13:45 POC ABG pCO2 39.8 mmHg (32.0-48.0) 08/19/21 13:45 ABG pCO2 46.6 mm Hg 08/17/21 21:23 POC ABG pO2 145.3 mmHg (83-108) H 08/19/21 13:45 ABG pO2 122.5 mm Hg (80.0-90.0) H 08/17/21 21:23 POC ABG HCO3 24.2 08/19/21 13:45 ABG HCO3 24.4 mmol/L (20.0-26.0) 08/17/21 21:23 ABG O2 Saturation 99.0 (0-100) 08/19/21 13:45 ABG O2 Content 10.6 (0.0-44) 08/17/21 21:23 POC ABG Base Excess -0.5 08/19/21 13:45 ABG Base Excess -1.4 mmol/L (-2.0-3.0) 08/17/21 21: ABG Hemoglobin 10.0 (12.0-17.5) L 08/19/21 13:45 ABG Oxyhemoglobin 98.4 (94-98) H 08/19/21 13:45 ABG Carboxyhemoglobin 1.8 % (0.0-5.0) 08/17/21 21: ABG Methemoglobin 0.3 (0.0-1.5) 08/19/21 13:45 ABG Sodium 134.0 mmol/L (136.0-145.0) L 08/19/21 13:45 ABG Potassium 4.2 mmol/L (3.40-4.50) 08/19/21 13:45 ABG Chloride 102.0 mmol/L (98-107) 08/19/21 13:45 ABG Glucose 141 mg/dL (65-95) H 08/19/21 13:45 Oxyhemoglobin 96.2 % (95.0-99.0) 08/17/21 21: Carboxyhemoglobin 0.3 (0.5-1.5) L 08/19/21 13:45 FiO2 30 % 08/17/21 21:23 FiO2 % 30.0 08/19/21 13:45 Sodium 142 mmol/L (137-145) 08/23/21 05:00 Potassium 4.2 mmol/L (3.6-5.0) 08/23/21 05:00 Chloride 107.2 mmol/L (98-107) H 08/23/21 05:00 Carbon Dioxide 27 mmol/L (22-30) 08/23/21 05:00 Anion Gap 12 mmol/L 08/23/21 05:00 BUN 51 mg/dL (7-17) H 08/23/21 05:00 Creatinine 0.6 mg/dL (0.6-1.2) 08/23/21 05:00 Estimated GFR > 60 ml/min 08/23/21 05:00 BUN/Creatinine Ratio 85 % 08/23/21 05:00 Glucose 88 mg/dL (65-100) 08/23/21 05:00 POC Glucose 82 mg/dL (70-105) 08/23/21 11:35 Lactic Acid 2.10 mmol/L (0.7-2.0) H* 08/03/21 15:11 Calcium 8.7 mg/dL (8.4-10.2) 08/23/21 05:00 Phosphorus 4.10 mg/dL (2.5-4.5) 08/08/21 06:00 Magnesium 1.70 mg/dL (1.7-2.3) 08/12/21 21:41 Total Bilirubin 0.20 mg/dL (0.1-1.2) 08/23/21 05:00 AST 35 units/L (5-40) 08/23/21 05:00 ALT 58 units/L (7-56) H 08/23/21 05:00 Alkaline Phosphatase 106 units/L (35-129) 08/23/21 05:00 Serum Total Protein See scanned result 08/03/21 04:17 Total Protein 5.6 g/dL (6.3-8.2) L 08/23/21 05:00 Albumin 2.6 g/dL (3.9-5) L 08/23/21 05:00 Albumin/Globulin Ratio 0.9 % 08/23/21 05:00 [id number] See scanned result 08/03/21 04:17 [id number] See scanned result 08/03/21 04:17 Beta Globulins See scanned result 08/03/21 04:17 Gamma Globulins See scanned result 08/03/21 04:17 Abnorm Protein Band 1 See scanned result 08/03/21 04:17 Abnorm Protein Band 2 See scanned result 08/03/21 04:17 Abnorm Protein Band 3 See scanned result 08/03/21 04:17 PEP Interpretation See scanned result 08/03/21 04:17 Triglycerides 207 mg/dL (2-149) H 08/20/21 16:55 Lipase 56 units/L (13-60) 08/20/21 16:55 Carcinoembryonic Ag <0.5 ng/mL (0.0-2.4) 07/31/21 04:45 Arterial Blood Glucose 141 mg/dL (65-95) H 08/19/21 13:45 Arterial Blood Ionized Calcium 4.6 mg/dL (4.6-5.3) 08/17/21 07:27 Urine Color Yellow (Yellow) 08/08/21 20: Urine Turbidity Slightly-cloudy (Clear) 08/08/21 20: Urine pH 5.0 (5.0-7.0) 08/08/21 20: Ur Specific [place] 1.014 (1.003-1.030) 08/08/21 20: Urine Protein 30 mg/dl mg/dL (Negative) 08/08/21 20: Urine Glucose (UA) Neg mg/dL (Negative) 08/08/21 20: Urine Ketones Neg mg/dL (Negative) 08/08/21 20: Urine Blood Mod (Negative) 08/08/21 20: Urine Nitrite Neg (Negative) 08/08/21 20: Urine Bilirubin Neg (Negative) 08/08/21 20:27 Urine Urobilinogen < 2.0 mg/dL (<2.0) 08/08/21 20:27 Ur Leukocyte Esterase Neg (Negative) 08/08/21 20:27 Urine WBC (Auto) 6.0 /HPF (0.0-6.0) 08/08/21 20: Urine RBC (Auto) 6.0 /HPF (0.0-6.0) 08/08/21 20:27 U Epithel Cells (Auto) < 1.0 /HPF (0-13.0) 08/08/21 20: Urine Bacteria (Auto) 1+ /HPF (Negative) 08/08/21 20: Urine Mucus Few /HPF 08/08/21 20:27 Urine Yeast (Budding) 1+ /HPF 08/08/21 20:27 Urine Creatinine 125.6 mg/dL (0.1-20.0) H 08/01/21 Unknown Urine Sodium 12 mmol/L 08/01/21 Unknown Proteinase 3 (PR3) Ab See scanned result 08/02/21 15:40 Myeloperoxidase Ab See scanned result 08/02/21 15:40 Double Strand DNA Ab 1 IU/mL (<=4) 08/02/21 15:40 Coronavirus (PCR) Negative (Negative) 07/29/21 07:58 Hepatitis A IgM Ab Non-reactive (NonReactive) 08/02/21 15:40 Hep Bs Antigen Nonreactive (Negative) 08/02/21 15:40 Hep B Core IgM Ab Non-reactive (NonReactive) 08/02/21 15:40 Hepatitis C Antibody Non-reactive (NonReactive) 08/02/21 15:40 AFB Identification Negative 08/02/21 14:30 Blood Type A POSITIVE 08/18/21 05:10 Antibody Screen Negative 08/18/21 05:10 Crossmatch See Detail 08/18/21 05:10 Objective - Constitutional Vitals: Last Vital Signs Temp 98.2 F 08/23/21 12:00 Pulse 79 08/23/21 11:46 Resp 14 08/23/21 11:00 BP 117/58 08/23/21 11:46 Pulse Ox 100 08/23/21 11:46 - Labs Lab Results: Laboratory Results - last 24 hr 08/22/21 08/22/21 08/22/21 04:00 17:46 23:45 WBC RBC Hgb Hct MCV MCH MCHC RDW Plt Count Add Manual Diff Complete Total Counted 100 Seg Neuts % (Manual) 84.0 H Band Neutrophils % 3.0 Lymphocytes % (Manual) 7.0 L Monocytes % (Manual) 6.0 Nucleated RBC % 1.0 H Seg Neutrophils # Man 6.6 Band Neutrophils # 0.2 Lymphocytes # (Manual) 0.5 L Abs React Lymphs (Man) 0.0 Monocytes # (Manual) 0.5 Eosinophils # (Manual) 0.0 Basophils # (Manual) 0.0 Metamyelocytes # 0.0 Myelocytes # 0.0 Promyelocytes # 0.0 Blast Cells # 0.0 WBC Morphology Not Reportable Hypersegmented Neuts Not Reportable Hyposegmented Neuts Not Reportable Hypogranular Neuts Not Reportable Smudge Cells Not Reportable Toxic Granulation Not Reportable Toxic Vacuolation Not Reportable Dohle Bodies Not Reportable Pelger-Huet Anomaly Not Reportable Beryl Rods Not Reportable Platelet Estimate Consistent w auto Clumped Platelets Few Plt Clumps, EDTA Not Reportable Large Platelets Not Reportable Giant Platelets Not Reportable Platelet Satelliting Not Reportable Plt Morphology Comment Not Reportable RBC Morphology Not Reportable Dimorphic RBCs Not Reportable Polychromasia Not Reportable Hypochromasia Few Poikilocytosis Not Reportable Anisocytosis 1+ Microcytosis Not Reportable Macrocytosis Not Reportable Spherocytes Not Reportable Pappenheimer Bodies Not Reportable Sickle Cells Not Reportable Target Cells Not Reportable Tear Drop Cells Not Reportable Ovalocytes Not Reportable Helmet Cells Not Reportable Paul-Meacham Bodies Not Reportable Marrero Rings Not Reportable Estelita Cells Not Reportable Bite Cells Not Reportable Crenated Cell Not Reportable Elliptocytes Not Reportable Acanthocytes (Spur) Not Reportable Rouleaux Not Reportable Hemoglobin C Crystals Not Reportable Schistocytes Not Reportable Malaria parasites Not Reportable Gurmeet Bodies Not Reportable Hem Pathologist Commnt No Sodium Potassium Chloride Carbon Dioxide Anion Gap BUN Creatinine Estimated GFR BUN/Creatinine Ratio Glucose POC Glucose 93 92 Calcium Total Bilirubin AST ALT Alkaline Phosphatase Total Protein Albumin Albumin/Globulin Ratio 08/23/21 08/23/21 08/23/21 05:00 05:00 05:26 WBC 5.4 RBC 2.65 L Hgb 8.1 L Hct 23.9 L MCV 90 MCH 31 MCHC 34 RDW 17.9 H Plt Count 475 H Add Manual Diff Total Counted Seg Neuts % (Manual) Band Neutrophils % Lymphocytes % (Manual) Monocytes % (Manual) Nucleated RBC % Seg Neutrophils # Man Band Neutrophils # Lymphocytes # (Manual) Abs React Lymphs (Man) Monocytes # (Manual) Eosinophils # (Manual) Basophils # (Manual) Metamyelocytes # Myelocytes # Promyelocytes # Blast Cells # WBC Morphology Hypersegmented Neuts Hyposegmented Neuts Hypogranular Neuts Smudge Cells Toxic Granulation Toxic Vacuolation Dohle Bodies Pelger-Huet Anomaly Beryl Rods Platelet Estimate Clumped Platelets Plt Clumps, EDTA Large Platelets Giant Platelets Platelet Satelliting Plt Morphology Comment RBC Morphology Dimorphic RBCs Polychromasia Hypochromasia Poikilocytosis Anisocytosis Microcytosis Macrocytosis Spherocytes Pappenheimer Bodies Sickle Cells Target Cells Tear Drop Cells Ovalocytes Helmet Cells Paul-Meacham Bodies Marrero Rings Estelita Cells Bite Cells Crenated Cell Elliptocytes Acanthocytes (Spur) Rouleaux Hemoglobin C Crystals Schistocytes Malaria parasites Gurmeet Bodies Hem Pathologist Commnt Sodium 142 Potassium 4.2 Chloride 107.2 H Carbon Dioxide 27 Anion Gap 12 BUN 51 H Creatinine 0.6 Estimated GFR > 60 BUN/Creatinine Ratio 85 Glucose 88 POC Glucose 105 Calcium 8.7 Total Bilirubin 0.20 AST 35 ALT 58 H Alkaline Phosphatase 106 Total Protein 5.6 L Albumin 2.6 L Albumin/Globulin Ratio 0.9 08/23/21 11:35 WBC RBC Hgb Hct MCV MCH MCHC RDW Plt Count Add Manual Diff Total Counted Seg Neuts % (Manual) Band Neutrophils % Lymphocytes % (Manual) Monocytes % (Manual) Nucleated RBC % Seg Neutrophils # Man Band Neutrophils # Lymphocytes # (Manual) Abs React Lymphs (Man) Monocytes # (Manual) Eosinophils # (Manual) Basophils # (Manual) Metamyelocytes # Myelocytes # Promyelocytes # Blast Cells # WBC Morphology Hypersegmented Neuts Hyposegmented Neuts Hypogranular Neuts Smudge Cells Toxic Granulation Toxic Vacuolation Dohle Bodies Pelger-Huet Anomaly Beryl Rods Platelet Estimate Clumped Platelets Plt Clumps, EDTA Large Platelets Giant Platelets Platelet Satelliting Plt Morphology Comment RBC Morphology Dimorphic RBCs Polychromasia Hypochromasia Poikilocytosis Anisocytosis Microcytosis Macrocytosis Spherocytes Pappenheimer Bodies Sickle Cells Target Cells Tear Drop Cells Ovalocytes Helmet Cells Paul-Meacham Bodies Marre[place] Rings [place] Cells Bite Cells Crenated Cell Elliptocytes Acanthocytes (Spur) Rouleaux Hemoglobin C Crystals Schistocytes Malaria parasites Gurmeet Bodies Hem Pathologist Commnt Sodium Potassium Chloride Carbon Dioxide Anion Gap BUN Creatinine Estimated GFR BUN/Creatinine Ratio Glucose POC Glucose 82 Calcium Total Bilirubin AST ALT Alkaline Phosphatase Total Protein Albumin Albumin/Globulin Ratio Medications & Allergies - Medications Allergies/Adverse Reactions: Allergies No Known Allergies Allergy (Verified 12/24/18 11:45) Home Medications: Home Medications Medication Instructions Recorded Confirmed Last Taken Type traMADoL [Ultram 50 MG tab] 50 mg PO Q6HR PRN #15 tablet 01/25/18 Unknown Rx Active Medications: Generic Name Dose Route Start Last Admin Trade Name Freq PRN Reason Stop Dose Admin Acetaminophen 650 mg 07/28/21 02:11 08/18/21 22:02 Acetaminophen 325 Mg Tab PO 650 mg Q6H PRN Administration Pain MILD(1-3)/Fever >100.5/GARCIA Albuterol/Ipratropium 1 ampul 07/28/21 14:00 08/23/21 08:22 Ipratropium/Albuterol Sulfate 3 Ml Ampul.Neb IH Not Given TID DEMIAN Lipase/Protease/Amylase 1 each 07/29/21 13:01 Lipase 10,500/Protease 25,000/Amylase 43,750 (Units) Dr Campoverde FEEDTUBE PRN PRN For Clogged Feeding Tube Arformoterol Tartrate 15 mcg 07/28/21 20:00 08/23/21 08:22 Arformoterol 15 Mcg/2 Ml Nebu IH 15 mcg Q12HRT DEMIAN Administration Bisacodyl 10 mg 08/07/21 09:50 08/20/21 09:22 Bisacodyl 10 Mg Rect Supp [place] 10 mg QDAY PRN Administration Constip unreliev by MOM/or NPO Budesonide 0.5 mg 07/28/21 20:00 08/23/21 08:22 Budesonide 0.5 Mg/2 Ml Nebu IH 0.5 mg Q12HRT DEMIAN Administration Dextrose 50 ml 07/28/21 02:11 08/10/21 18:05 Dextrose 50% In Water (25gm) 50 Ml Syringe IV 20 ml Q30MIN PRN Administration Hypoglycemia Protocol Enoxaparin Sodium 40 mg 08/19/21 10:00 08/23/21 09:30 Enoxaparin 40 Mg/0.4 Ml Inj SUB-Q 40 mg QDAY DEMIAN Administration Protocol Famotidine 20 mg 08/15/21 10:00 08/23/21 09:30 Famotidine 20 Mg Tab FEEDTUBE 20 mg BID DEMIAN Administration Fentanyl 50 mcg 07/29/21 10:42 08/22/21 07:15 Fentanyl 100 Mcg/2 Ml Inj IV 50 mcg Q10MIN PRN Administration ANALGESIA Hydralazine HCl 10 mg 07/30/21 14:52 08/19/21 12:12 Hydralazine 20 Mg/1 Ml Inj IV 10 mg Q6H PRN Administration SBP > 165 Hydrophilic Ointment 1 applic 07/29/21 10:42 Lip Therapy Vaseline TP Q2HR PRN Dry Lips Fentanyl Citrate 2,000 mcg in 100 mls @ 5.35 mls/hr 07/29/21 11:00 08/23/21 09:29 Fentanyl Drip Premix IV 4 mcg/kg/hr TITR DEMIAN 21.4 mls/hr Administration Protocol 1 MCG/KG/HR Midazolam HCl 100 mg/ Sodium 100 mls @ 1 mls/hr 08/20/21 17:00 08/22/21 14:58 Chloride IV 2 mg/hr TITR DEMIAN 2 mls/hr Administration Protocol 1 MG/HR Insulin Human Lispro 0 unit 07/29/21 12:00 08/23/21 05:30 Insulin Lispro 100 Unit/Ml SUB-Q Not Given Q6HR [facility] Protocol Magnesium Hydroxide 30 ml 07/28/21 02:11 08/20/21 09:21 Magnesium Hydroxide (Mom) Oral Liqd Udc PO 30 ml Q4H PRN Administration Constipation Midazolam HCl 2 mg 08/20/21 16:15 08/20/21 18:33 Midazolam 2 Mg/2 Ml Inj IV 2 mg Q10MIN PRN Administration Sedation Multi-Ingred Cream/Lotion/Oil/Oint 1 applic 07/29/21 10:42 Mineral Oil/Petrolatum, White Ophth Oint 3.5 Gm OU Q4HR PRN Dry Eye(s) Polyethylene Glycol 17 gm 08/11/21 16:00 08/23/21 09:30 Polyethylene Glycol 3350 17 Gm Powder PO 17 gm QDAY DEMIAN Administration Quetiapine Fumarate 250 mg 08/20/21 16:19 08/23/21 09:30 Quetiapine 100 Mg Tab PO 250 mg BID DMEIAN Administration Senna/Docusate Sodium 1 tab 08/11/21 13:00 08/23/21 05:07 Sennosides/Docusate Sodium 8.6/50 Mg Tab FEEDTUBE 1 tab Q8H DEMIAN Administration Simple Syrup 15 ml 07/29/21 13:01 Simple Syrup 15 Ml FEEDTUBE PRN PRN Hypoglycemia Simple Syrup 30 ml 07/29/21 13:01 Simple Syrup 15 Ml FEEDTUBE PRN PRN Hypoglycemia Sodium Bicarbonate 325 mg 07/29/21 13:01 Sodium Bicarbonate 325 Mg Tab FEEDTUBE PRN PRN For Clogged Feeding Tube Sodium Chloride 10 ml 07/28/21 10:00 08/23/21 09:31 Sodium Chloride 0.9% 10 Ml Flush Syringe IV 10 ml BID DEMIAN Administration Sodium Chloride 10 ml 07/28/21 02:05 Sodium Chloride 0.9% 10 Ml Flush Syringe IV PRN PRN LINE FLUSH
[2021-08-23] MEDS: ENOXAPARIN 100 MG/1 ML INJ SUB-Q SCH (21:26)
[2021-08-24] MEDS: INSULIN LISPRO 100 UNIT/ML SUB-Q SCH ×4 (00:32→11:44)
[2021-08-24] MEDS: FREE WATER PO SCH ×5 (02:13→13:28)
[2021-08-24] MEDS: SENNOSIDES/DOCUSATE SODIUM 8.6/50 MG TAB FEEDTUBE SCH ×2 (04:11→12:41)
[2021-08-24] MEDS: fentaNYL DRIP Premix 2,000 MCG/100 ML BAG IV SCH ×2 (04:15→09:05)
[2021-08-24] MEDS: BUDESONIDE 0.5 MG/2 ML NEBU IH SCH (08:10)
[2021-08-24] MEDS: ARFORMOTEROL 15 MCG/2 ML NEBU IH SCH (08:10)
[2021-08-24] MEDS: IPRATROPIUM/ALBUTEROL SULFATE 3 ML AMPUL.NEB IH SCH (08:10)
--- NOTE | 2021-08-24 08:44 | Progress Note ---
Assessment and Plan Assessment and plan: #Neuro: Acute metabolic encephalopathy, sedation for agitation - Sedated with fentanyl and versed - Titrate gtts for RASS goal of -2 to -3 - SAT daily as tolerated - Avoid delirium- On Seroquel; follow QT EKG ordered - Bilateral restraints for safety -updated family daily on care -nodding to command today; generalized weakness; PERRL #Cardio: Sinus Tachycardia #s/p cardiac arrest #H/o HTN & HLD - 07/29- Echocardiogram completed-> EF 50 to 55% with mild diastolic dysfunction - SR-ST -no pressors - Continue to monitor blood pressure, MAP goal> 65 and SBP<165 - PRN Hydralazine #Respiratory: Acute hypoxemic respiratory failure 2/2 Lung mass/CA #COPD exacerbation sp trach - 08/10 S/P Tracheostomybronchoscopy biopsy-->carcinoma c/w breast primary, ER/OH/H2N neg, TTf1 neg - Vent setting: AC 30%,8,12,450 see iview for weaning attempts - Vent dependent/ unable to wean off vent due to multiple failed trials vazquez down in the 30s -daily SAT as tolerated - VAP bundle addressed - Aspiration precaution; keep HOB elevated> 45 degree - Continue SPO2 monitoring for SPO2 goal greater than 90% - Continue daily ABG per CCM -continue nebs #GI: Contipation - 08/10 s/p PEGTube insertion - 08/17 KUB: moderate amount of fecal material throughout theh colon - Continue enteral nutrition- TF at goal - Continue bowel regimen: Miralax, senokot, and PRN Ducolax & MOM for constipation BM 08-20 - Continue PPI- Pepcid #: Acute kidney injury likely 2/2 vasomotor nephropathy/pre-renal - 08/01 FeNA 0.13 - Continue to monitor renal function - Continue to monitor electrolytes, replace if necessary - Continue Strict intake and output -free water flushes decreased-na now 139; reevaluate daily - Continue to avoid nephrotoxins, renally dose all medications - Nephrology on consult, appreciate recommendations #ID: Acute sepsis possibly due to PNA vs cardiac event- Resolved - 07/27 B.Cultx2:neg, 07/29 tracheal aspirate:neg, 08/02 Urine cult: neg, 08/08 repeat B.CultX2: neg - trend WBC and temp curve -follow culture data #Heme/Onc: 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 Ordered a repeat ultrasound of the left lower extremity to help guide therapy. Further recommendation per"If DVT has reso lved, prophylactic anticoagulation is quite appropriate. If DVT is still present, then risk/benefit discussion needs to be had to determine if full or prophylactic anticoagulation is more appropriate. US to be repeated and reeval AC strategy -shows no sonographic evidence of DVT. -Will defer to hematology and vascular about changes to anticoagulation. - SCDs to bilateral lower extremities while in bed - Heme/Onc on Consult - Per Heme/Onc patient is "not a good candidate for chemotherapy, but chest tumor radiation may be possible" #Endo: Hyperglycemia, H/o DM; obesity - Continue SSI for a Target blood glucose of 140-180 - Avoid hypoglycemia The high probability of a clinically significant, sudden or life threatening deterioration of the [multi] system(s) required my full and direct attention, intervention and personal management. The aggregate critical care time was [60] minutes. This time is in addition to time spent performing reported procedures but includes the following: [x] Data Review and interpretation [x] Patient assessment and monitoring of vital signs [x] Documentation [x] Medication orders and management Disposition Plan: icu- dispo plan LTAC Total Time Spent with Patient (Minutes): 35 08/24: Patient unfortunately not showing any improvement. Considered not a good candidate for chemotherapy at this time or any aggressive intervention. Patient continues on full anticoagulation and will monitor H&H closely. Considering discussion with Dr. Wade the oncologist and also hematology oncology here for possible end-of-life discussion with family have also spoken to the family they would like to see the patient before making that decision. Will discuss with case management they have an exception to the hospital visitation policy will come in March. Otherwise continue current management patient continues to be critically ill. History Interval history: This is a 66-year-old female with HTN, DM, HLD and COPD who presented to emergency department on 07/28 with complaints of difficulty in breathing ongoing for the past few days via EMS. En route she was given Solu-Medrol IV magnesium and albuterol nebulizing treatment. Upon arrival to emergency department patient had multiple rounds of embolizing treatments and was subsequently placed on BiPAP with some improvement. Patient has been fully vaccinated. Work-up in the emergency department revealed CXR suspicious for right-sided pneumonia, nodular density in the left base and increased interstitial markings which may be chronic. Patient was admitted to the hospitalist service with electrolyte imbalances, leukocytosis, COPD exacerbation, hypoxia and possible pneumonia. 66-year-old female with PmHx of HTN, DM, HLD, COPD, ex-smoker, breast CA s/p Rt. mastectomy, now with metastatic to the lung. Initially admitted for acute hypoxic respiratory failure, COPD exacerbation, pneumonia and left lower leg DVT, coded on 07/29 and was transferredn to ICU . Patient is s/p tracheostomy and PEGTube insertion, currently vent dependent/ failed multiples CPAP trial 07/29/2021. Patient seen this morning with Shabbir-Chavira respiration/agonal breat marifer. RENEE ABREU was called and patient was intubated and placed on mechanical ventilation. Patient transferred to ICU. Critical care/pulmonary consulted. Patient currently with AC mode rate of 30, FiO2 100%, PEEP of 12. Continue IV antibiotics. Consult ID and oncology for further evaluation. Patient will likely need bronchoscopy for further evaluation of the lung mass. Doppler ultrasound revealedLLE DVT. Start anticoagulation. 07/30/2021. Patient appears much improved and more responsive this morning. Patient currently with AC mode ventilation rate of 24, tidal volume 450, PEEP of 8 and FiO2 35%. Spontaneous breathing trials with possible extubation today per pulmonary. Bronchoscopy per pulmonary. Continue Lovenox twice daily for DVT. Continue IV antibiotics for sepsis/pneumonia. ID consultation pending. Follow-up [facility], [place] 15-3, [place] 2729. 07/31/2021. Echocardiogram reveals left ventricular size and function are normal. EF 50 to 55% with mild diastolic dysfunction. Patient currently with CPAP/PSV trial 11/02. Anticipate extubation today per pulmonary. Bronchoscopy per pul monary. Continue Lovenox twice daily for DVT. Continue IV antibiotics for sepsis/pneumonia. ID consultation pending. Follow-up [facility], CA 15-3, [place] 2729. 08/01: ALIYAH 08/02: Patient had a bronchoscopy today. Cell count, cytology and AFB sent from samples. Patient remains sedated on fentanyl and Versed. Patient and daughter Rosana were updated. 08/03: [facility] follow-up on [facility] specimens and was informed patient specimens indicate cancer. Communicated to Dr. Abbott and he stated he will update family. 08/04: Patient remains sedated on fentanyl and Versed, patient has moments of agitation with any stimulation. CPAP trial unable to be completed today due to agitation. 08/05: Patient had low urine output overnight and Elizabeth catheter was changed this a.m. with 2 L of urine output received. Patient did have a increase in creatinine however this may have been obstructive process and nephrology is aware. Hematology/oncology spoke to family who wishes for everything to be done despite bronchial washings with cancer cells. [facility] contacted patient's oncologist to help facilitate transfer. We attempted to hold sedation for CPAP trial however patient became extremely agitated and sedation was restarted. 08/06: Surgery consulted for possible trach. Leukocytosis and renal function slowly improving. No acute events reported overnight. 08/07: Creatinine continues to decrease, patient has slight hyper natremia and hyperchloremia. Patient remains on fentanyl and Versed with periods of charli tation. Increasing free water flushes. 08-08 improving cr; febrile; family wants full care/full code- heme onc following 08-09 LOW GRADE FEVERS; FOR TRACH/PEG 08/10: Patient seen and examined, had Bronchoscopy and Trach and PEG today, follow report. Continue supportive care. 08/11: Patient remains on full vent support. Continue supportive care. 08/12: This morning patient noted with bleeding around trach surgery consulted going for emergent surgery. Labs ordered 08/13: Patient seen and examined, no further bleeding, had surgical intervention yesterday for trach site bleeding. No further bleeding this am. Patient otherwise remains on mechanical ventilation. Leukocytosis mildly worsened today this could be reactive has no fever will monitor mental status is still severely encephalopathic. 08/14/21 patient seen and examined. Lab and medication reviewed. No further bleeding from track site. Hemoglobin is 8.1. Hematocrit 24.2 and WBC 9.7. Continue current management and supportive care. Recheck CBC CMP in the morning 08/15: Overnight patient experienced sinus pericardia with return, will receive MiraLAX and CPAP trial today. 08/16: CPAP trial failed today. 08/17: given ducloax suppository today 08/18: failed cpap today as she became bradycardiac. able to follow simple com mands. update today by phone. See note for details. Ltach referral sent 08/19- Patient is trached and on the vent, sedated with propofol and fentanyl. Attempted SAT today did not tolerated it, so no SBT trial today due to increased agitation and patient required more sedation to reach RASS goal -3 to -4. No documented BM document, PRN MOM administered, continue BR. Continue to monitor renal function, H&H, and electrolytes. AM labs ordered. 08/20: Awaiting placement at LTAC. 08/20: Supportive management. Awaiting placement at LTAC. 08-22 aliyah overnight 08/23: Patient seen and examined this morning clinically unchanged. Awaiting LTAC placement. 08/24: Unfortunately no clinical improvement at this time. No adverse event reported overnight continues on the vent during sedation vacation patient gets agitated but no purposeful movement or following of commands. Hospitalist Physical - Constitutional Vitals: Temp Pulse Resp BP Pulse Ox 99.2 F 94 H 15 173/115 100 08/24/21 08:00 08/24/21 08:10 08/24/21 08:10 08/24/21 08:00 08/24/21 08:20 General appearance: Present: no acute distress Results - Labs CBC & Chem 7: 08/23/21 05:00 08/23/21 05:00 Labs: Laboratory Last Values WBC 5.4 K/mm3 (4.5-11.0) 08/23/21 05:00 RBC 2.65 M/mm3 (3.65-5.03) L 08/23/21 05:00 Hgb 8.1 gm/dl (10.1-14.3) L 08/23/21 05:00 Hct 23.9 % (30.3-42.9) L 08/23/21 05:00 MCV 90 fl (79-97) 08/23/21 05:00 MCH 31 pg (28-32) 08/23/21 05:00 MCHC 34 % (30-34) 08/23/21 05:00 RDW 17.9 % (13.2-15.2) H 08/23/21 05:00 Plt Count 475 K/mm3 (140-440) H 08/23/21 05:00 Lymph % (Auto) 12.5 % (13.4-35.0) L 08/15/21 Unknown [place] % (Auto) 5.9 % (0.0-7.3) 08/15/21 Unknown Eos % (Auto) 0.9 % (0.0-4.3) 08/15/21 Unknown Baso % (Auto) 0.3 % (0.0-1.8) 08/15/21 Unknown Lymph # (Auto) 1.0 K/mm3 (1.2-5.4) L 08/15/21 Unknown [place] # (Auto) 0.5 K/mm3 (0.0-0.8) 08/15/21 Unknown Eos # (Auto) 0.1 K/mm3 (0.0-0.4) 08/15/21 Unknown Baso # (Auto) 0.0 K/mm3 (0.0-0.1) 08/15/21 Unknown Add Manual Diff Complete 08/22/21 04:00 Total Counted 100 08/22/21 04:00 Seg Neutrophils % 80.4 % (40.0-70.0) H 08/15/21 Unknown Seg Neuts % (Manual) 84.0 % (40.0-70.0) H 08/22/21 04:00 Band Neutrophils % 3.0 % 08/22/21 04:00 Lymphocytes % (Manual) 7.0 % (13.4-35.0) L 08/22/21 04:00 Monocytes % (Manual) 6.0 % (0.0-7.3) 08/22/21 04:00 Eosinophils % (Manual) 1.0 % (0.0-4.3) 08/05/21 04:50 Metamyelocytes % 6.0 % 08/05/21 04:50 Myelocytes % 3.0 % 08/05/21 04:50 Nucleated RBC % 1.0 % (0.0-0.9) H 08/22/21 04:00 Seg Neutrophils # 6.4 K/mm3 (1.8-7.7) 08/15/21 Unknown Seg Neutrophils # Man 6.6 K/mm3 (1.8-7.7) 08/22/21 04:00 Band Neutrophils # 0.2 K/mm3 08/22/21 04:00 Lymphocytes # (Manual) 0.5 K/mm3 (1.2-5.4) L 08/22/21 04:00 Abs React Lymphs (Man) 0.0 K/mm3 08/22/21 04:00 Monocytes # (Manual) 0.5 K/mm3 (0.0-0.8) 08/22/21 04:00 Eosinophils # (Manual) 0.0 K/mm3 (0.0-0.4) 08/22/21 04:00 Basophils # (Manual) 0.0 K/mm3 (0.0-0.1) 08/22/21 04:00 Metamyelocytes # 0.0 K/mm3 08/22/21 04:00 Myelocytes # 0.0 K/mm3 08/22/21 04:00 Promyelocytes # 0.0 K/mm3 08/22/21 04:00 Blast Cells # 0.0 K/mm3 08/22/21 04:00 WBC Morphology Not Reportable 08/22/21 04:00 Hypersegmented Neuts Not Reportable 08/22/21 04:00 Hyposegmented Neuts Not Reportable 08/22/21 04:00 Hypogranular Neuts Not Reportable 08/22/21 04:00 Smudge Cells Not Reportable 08/22/21 04:00 Toxic Granulation Not Reportable 08/22/21 04:00 Toxic Vacuolation Not Reportable 08/22/21 04:00 Dohle Bodies Not Reportable 08/22/21 04:00 Pelger-Huet Anomaly Not Reportable 08/22/21 04:00 Beryl Rods Not Reportable 08/22/21 04:00 Platelet Estimate Consistent w auto 08/22/21 04:00 Clumped Platelets Few 08/22/21 04:00 Plt Clumps, EDTA Not Reportable 08/22/21 04:00 Large Platelets Not Reportable 08/22/21 04:00 Giant Platelets Not Reportable 08/22/21 04:00 Platelet Satelliting Not Reportable 08/22/21 04:00 Plt Morphology Comment Not Reportable 08/22/21 04:00 RBC Morphology Not Reportable 08/22/21 04:00 Dimorphic RBCs Not Reportable 08/22/21 04:00 Polychromasia Not Reportable 08/22/21 04:00 Hypochromasia Few 08/22/21 04:00 Poikilocytosis Not Reportable 08/22/21 04:00 Anisocytosis 1+ 08/22/21 04:00 Microcytosis Not Reportable 08/22/21 04:00 Macrocytosis Not Reportable 08/22/21 04:00 Spherocytes Not Reportable 08/22/21 04:00 Pappenheimer Bodies Not Reportable 08/22/21 04:00 Sickle Cells Not Reportable 08/22/21 04:00 Target Cells Not Reportable 08/22/21 04:00 Tear Drop Cells Not Reportable 08/22/21 04:00 Ovalocytes Not Reportable 08/22/21 04:00 Helmet Cells Not Reportable 08/22/21 04:00 [place] Bodies Not Reportable 08/22/21 04:00 Herod Rings Not Reportable 08/22/21 04:00 [place]wood Cells Not Reportable 08/22/21 04:00 Bite Cells Not Reportable 08/22/21 04:00 Crenated Cell Not Reportable 08/22/21 04:00 Elliptocytes Not Reportable 08/22/21 04:00 Acanthocytes (Spur) Not Reportable 08/22/21 04:00 Rouleaux Not Reportable 08/22/21 04:00 Hemoglobin C Crystals Not Reportable 08/22/21 04:00 Schistocytes Not Reportable 08/22/21 04:00 Malaria parasites Not Reportable 08/22/21 04:00 Gurmeet Bodies Not Reportable 08/22/21 04:00 Hem Pathologist Commnt No 08/22/21 04:00 PT 14.5 Sec. (12.2-14.9) 08/12/21 21:41 INR 1.08 (0.87-1.13) 08/12/21 21:41 APTT 29.9 Sec. (24.2-36.6) 08/10/21 05:20 D-Dimer 852.47 ng/mlDDU (0-234) H 07/29/21 07:17 ABG pH 7.401 (7.320-7.450) 08/19/21 13:45 POC ABG pCO2 39.8 mmHg (32.0-48.0) 08/19/21 13:45 ABG pCO2 46.6 mm Hg 08/17/21 21: POC ABG pO2 145.3 mmHg (83-108) H 08/19/21 13:45 ABG pO2 122.5 mm Hg (80.0-90.0) H 08/17/21 21:23 POC ABG HCO3 24.2 08/19/21 13:45 ABG HCO3 24.4 mmol/L (20.0-26.0) 08/17/21 21: ABG O2 Saturation 99.0 (0-100) 08/19/21 13:45 ABG O2 Content 10.6 (0.0-44) 08/17/21 21: POC ABG Base Excess -0.5 08/19/21 13:45 ABG Base Excess -1.4 mmol/L (-2.0-3.0) 08/17/21 21: ABG Hemoglobin 10.0 (12.0-17.5) L 08/19/21 13:45 ABG Oxyhemoglobin 98.4 (94-98) H 08/19/21 13:45 ABG Carboxyhemoglobin 1.8 % (0.0-5.0) 08/17/21 21: ABG Methemoglobin 0.3 (0.0-1.5) 08/19/21 13:45 ABG Sodium 134.0 mmol/L (136.0-145.0) L 08/19/21 13:45 ABG Potassium 4.2 mmol/L (3.40-4.50) 08/19/21 13:45 ABG Chloride 102.0 mmol/L (98-107) 08/19/21 13:45 ABG Glucose 141 mg/dL (65-95) H 08/19/21 13:45 Oxyhemoglobin 96.2 % (95.0-99.0) 08/17/21 21: Carboxyhemoglobin 0.3 (0.5-1.5) L 08/19/21 13:45 FiO2 30 % 08/17/21 21:23 FiO2 % 30.0 08/19/21 13:45 Sodium 142 mmol/L (137-145) 08/23/21 05:00 Potassium 4.2 mmol/L (3.6-5.0) 08/23/21 05:00 Chloride 107.2 mmol/L (98-107) H 08/23/21 05:00 Carbon Dioxide 27 mmol/L (22-30) 08/23/21 05:00 Anion Gap 12 mmol/L 08/23/21 05:00 BUN 51 mg/dL (7-17) H 08/23/21 05:00 Creatinine 0.6 mg/dL (0.6-1.2) 08/23/21 05:00 Estimated GFR > 60 ml/min 08/23/21 05:00 BUN/Creatinine Ratio 85 % 08/23/21 05:00 Glucose 88 mg/dL (65-100) 08/23/21 05:00 POC Glucose 91 mg/dL (70-105) 08/24/21 05:26 Lactic Acid 2.10 mmol/L (0.7-2.0) H* 08/03/21 15:11 Calcium 8.7 mg/dL (8.4-10.2) 08/23/21 05:00 Phosphorus 4.10 mg/dL (2.5-4.5) 08/08/21 06:00 Magnesium 1.70 mg/dL (1.7-2.3) 08/12/21 21:41 Total Bilirubin 0.20 mg/dL (0.1-1.2) 08/23/21 05:00 AST 35 units/L (5-40) 08/23/21 05:00 ALT 58 units/L (7-56) H 08/23/21 05:00 Alkaline Phosphatase 106 units/L (35-129) 08/23/21 05:00 Serum Total Protein See scanned result 08/03/21 04:17 Total Protein 5.6 g/dL (6.3-8.2) L 08/23/21 05:00 Albumin 2.6 g/dL (3.9-5) L 08/23/21 05:00 Albumin/Globulin Ratio 0.9 % 08/23/21 05:00 [id number] See scanned result 08/03/21 04:17 [id number]-[id number] See scanned result 08/03/21 04:17 Beta Globulins See scanned result 08/03/21 04:17 Gamma Globulins See scanned result 08/03/21 04:17 Abnorm Protein Band 1 See scanned result 08/03/21 04:17 Abnorm Protein Band 2 See scanned result 08/03/21 04:17 Abnorm Protein Band 3 See scanned result 08/03/21 04:17 PEP Interpretation See scanned result 08/03/21 04:17 Triglycerides 207 mg/dL (2-149) H 08/20/21 16:55 Lipase 56 units/L (13-60) 08/20/21 16:55 Carcinoembryonic Ag <0.5 ng/mL (0.0-2.4) 07/31/21 04:45 Arterial Blood Glucose 141 mg/dL (65-95) H 08/19/21 13:45 Arterial Blood Ionized Calcium 4.6 mg/dL (4.6-5.3) 08/17/21 07:27 Urine Color Yellow (Yellow) 08/08/21 20: Urine Turbidity Slightly-cloudy (Clear) 08/08/21 20: Urine pH 5.0 (5.0-7.0) 08/08/21 20:27 Ur Specific [place] 1.014 (1.003-1.030) 08/08/21 20: Urine Protein 30 mg/dl mg/dL (Negative) 08/08/21 20: Urine Glucose (UA) Neg mg/dL (Negative) 08/08/21 20: Urine Ketones Neg mg/dL (Negative) 08/08/21 20: Urine Blood Mod (Negative) 08/08/21 20: Urine Nitrite Neg (Negative) 08/08/21 20: Urine Bilirubin Neg (Negative) 08/08/21 20:27 Urine Urobilinogen < 2.0 mg/dL (<2.0) 08/08/21 20:27 Ur Leukocyte Esterase Neg (Negative) 08/08/21 20: Urine WBC (Auto) 6.0 /HPF (0.0-6.0) 08/08/21 20: Urine RBC (Auto) 6.0 /HPF (0.0-6.0) 08/08/21 20: U Epithel Cells (Auto) < 1.0 /HPF (0-13.0) 08/08/21 20: Urine Bacteria (Auto) 1+ /HPF (Negative) 08/08/21 20: Urine Mucus Few /HPF 08/08/21 20: Urine Yeast (Budding) 1+ /HPF 08/08/21 20:27 Urine Creatinine 125.6 mg/dL (0.1-20.0) H 08/01/21 Unknown Urine Sodium 12 mmol/L 08/01/21 Unknown Proteinase 3 (PR3) Ab See scanned result 08/02/21 15:40 Myeloperoxidase Ab See scanned result 08/02/21 15:40 Double Strand DNA Ab 1 IU/mL (<=4) 08/02/21 15:40 Coronavirus (PCR) Negative (Negative) 07/29/21 07:58 Hepatitis A IgM Ab Non-reactive (NonReactive) 08/02/21 15:40 Hep Bs Antigen Nonreactive (Negative) 08/02/21 15:40 Hep B Core IgM Ab Non-reactive (NonReactive) 08/02/21 15:40 Hepatitis C Antibody Non-reactive (NonReactive) 08/02/21 15:40 AFB Identification Negative 08/02/21 14:30 Blood Type A POSITIVE 08/18/21 05:10 Antibody Screen Negative 08/18/21 05:10 Crossmatch See Detail 08/18/21 05:10 Elizabeth/IV: Voiding Method Indwelling Catheter Active Medications - Current Medications Current Medications: Generic Name Dose Route Start Last Admin Trade Name Freq PRN Reason Stop Dose Admin Acetaminophen 650 mg 07/28/21 02:11 08/18/21 22:02 Acetaminophen 325 Mg Tab PO 650 mg Q6H PRN Administration Pain MILD(1-3)/Fever >100.5/GARCIA Albuterol/Ipratropium 1 ampul 07/28/21 14:00 08/24/21 08:10 Ipratropium/Albuterol Sulfate 3 Ml Ampul.Neb IH 1 ampul TID DEMIAN Administration Lipase/Protease/Amylase 1 each 07/29/21 13:01 Lipase 10,500/Protease 25,000/Amylase 43,750 (Units) Dr Campoverde FEEDTUBE PRN PRN For Clogged Feeding Tube Arformoterol Tartrate 15 mcg 07/28/21 20:00 08/24/21 08:10 Arformoterol 15 Mcg/2 Ml Nebu IH 15 mcg Q12HRT DEMIAN Administration Bisacodyl 10 mg 08/07/21 09:50 08/20/21 09:22 Bisacodyl 10 Mg Rect Supp OH 10 mg QDAY PRN Administration Constip unreliev by MOM/or NPO Budesonide 0.5 mg 07/28/21 20:00 08/24/21 08:10 Budesonide 0.5 Mg/2 Ml Nebu IH 0.5 mg Q12HRT DEMIAN Administration Dextrose 50 ml 07/28/21 02:11 08/10/21 18:05 Dextrose 50% In Water (25gm) 50 Ml Syringe IV 20 ml Q30MIN PRN Administration Hypoglycemia Protocol Enoxaparin Sodium 100 mg 08/23/21 22:00 08/23/21 21:26 Enoxaparin 100 Mg/1 Ml Inj SUB-Q 100 mg Q12HR DEMIAN Administration Protocol Famotidine 20 mg 08/15/21 10:00 08/23/21 21:24 Famotidine 20 Mg Tab FEEDTUBE 20 mg BID DEMIAN Administration Fentanyl 50 mcg 07/29/21 10:42 08/22/21 07:15 Fentanyl 100 Mcg/2 Ml Inj IV 50 mcg Q10MIN PRN Administration ANALGESIA Hydralazine HCl 10 mg 07/30/21 14:52 08/19/21 12:12 Hydralazine 20 Mg/1 Ml Inj IV 10 mg Q6H PRN Administration SBP > 165 Hydrophilic Ointment 1 applic 07/29/21 10:42 Lip Therapy Vaseline TP Q2HR PRN Dry Lips Fentanyl Citrate 2,000 mcg in 100 mls @ 5.35 mls/hr 07/29/21 11:00 08/24/21 04:15 Fentanyl Drip Premix IV 4 mcg/kg/hr TITR DEMIAN 21.4 mls/hr Administration Protocol 1 MCG/KG/HR Midazolam HCl 100 mg/ Sodium 100 mls @ 1 mls/hr 08/20/21 17:00 08/22/21 14:58 Chloride IV 2 mg/hr TITR DEMIAN 2 mls/hr Administration Protocol 1 MG/HR Insulin Human Lispro 0 unit 07/29/21 12:00 08/24/21 05:38 Insulin Lispro 100 Unit/Ml SUB-Q Not Given Q6HR [facility]1983 Protocol Magnesium Hydroxide 30 ml 07/28/21 02:11 08/20/21 09:21 Magnesium Hydroxide (Mom) Oral Liqd Udc PO 30 ml Q4H PRN Administration Constipation Midazolam HCl 2 mg 08/20/21 16:15 08/20/21 18:33 Midazolam 2 Mg/2 Ml Inj IV 2 mg Q10MIN PRN Administration Sedation Multi-Ingred Cream/Lotion/Oil/Oint 1 applic 07/29/21 10:42 Mineral Oil/Petrolatum, White Ophth Oint 3.5 Gm OU Q4HR PRN Dry Eye(s) Polyethylene Glycol 17 gm 08/11/21 16:00 08/23/21 09:30 Polyethylene Glycol 3350 17 Gm Powder PO 17 gm QDAY DEMIAN Administration Quetiapine Fumarate 250 mg 08/20/21 16:19 08/23/21 21:24 Quetiapine 100 Mg Tab PO 250 mg BID DEMIAN Administration Senna/Docusate Sodium 1 tab 08/11/21 13:00 08/24/21 04:11 Sennosides/Docusate Sodium 8.6/50 Mg Tab FEEDTUBE 1 tab Q8H DEMIAN Administration Simple Syrup 15 ml 07/29/21 13:01 Simple Syrup 15 Ml FEEDTUBE PRN PRN Hypoglycemia Simple Syrup 30 ml 07/29/21 13:01 Simple Syrup 15 Ml FEEDTUBE PRN PRN Hypoglycemia Sodium Bicarbonate 325 mg 07/29/21 13:01 Sodium Bicarbonate 325 Mg Tab FEEDTUBE PRN PRN For Clogged Feeding Tube Sodium Chloride 10 ml 07/28/21 10:00 08/24/21 00:35 Sodium Chloride 0.9% 10 Ml Flush Syringe IV 10 ml BID DEMIAN Administration Sodium Chloride 10 ml 07/28/21 02:05 Sodium Chloride 0.9% 10 Ml Flush Syringe IV PRN PRN LINE FLUSH Nutrition/Malnutrition Assess - Dietary Evaluation Nutrition/Malnutrition Findings: Nutrition Notes Start: 07/28/21 14:44 Freq: Status: Active Protocol: Document 08/23/21 12:44 GB (Rec: 08/23/21 12:54 GB [id number]) Nutrition Notes Initial or Follow up Reassessment Current Diagnosis Diabetes,Hypertension, Respiratory Failure, Hyperlipidemia Other Pertinent Diagnosis pneu Current Diet TF - Vital AF 1.2 at 50ml/hr ( PEG) Labs/Tests 08/23: BUN 51, ALT 58 Pertinent Medications Senna, Miralax, Dulcolax Height 5 ft Weight 107 kg [place] Body Weight (kg) 45.45 BMI 46.0 Weight change and time frame Unable to assess. No new weights available. Weight Status Morbidly Obese Subjective/Other Information Per chart: pt Trach/PEG, TF Vital 1.2 at goal of 50ml/hr @ 24hrs with flush instructions of 250ml / 4hrs or if Na in acceptable ranges flush: 100ml /4hrs. Percent of energy/protein needs met: TF meets 75% or greater of estimated energy needs. Burn Absent Trauma Absent GI Symptoms None Difficulty In Swallowing,Chewing Food Allergy No Minimum of two criteria No #1 Nutrition Diagnosis Inadequate oral intake Comments: 08/23: PEG and Trach placed Etiology ARF As Evidenced by Signs and Symptoms pt on vent and unable to consume PO Diagnosis Progress(for reassessment Continues documentation) Is patient on ventilator? Yes Is Patient Ambulatory and/or Out of Bed No REE-([facility]-confined to bed) 1842.852 Kcal/Kg value to use for calculation 13 Approximate Energy Requirements Using 1391 kcal/Kg Calculation Used for Recommendations Kcal/kg Additional Notes Protein: 0.8-1 g/kg @ 107k-107g Fluid: 1 ml/kcal or per MD Nutrition Intervention Change Diet Order: continue Nutrition Support: Continue Vital AF 1.2 at 50 ml /hr. Per RN, pt receiving 200ml water flush q4h. Kcal 1,440 Protein (gm) 90 Fluid (mL) 973 Goal #1 TF tolerance Goal #2 TF to meet at least 75% energy and pro needs Anticipated Discharge Needs: PEG care, TF pump, New weight needed Follow-Up By: 08/30/21 Additional Comments f/u: TF tolerance, weight management
[2021-08-24] MEDS: FAMOTIDINE 20 MG TAB FEEDTUBE SCH (09:32)
[2021-08-24] MEDS: QUEtiapine 100 MG TAB PO SCH (09:32)
[2021-08-24] MEDS: POLYETHYLENE GLYCOL 3350 17 GM POWDER PO SCH (09:32)
[2021-08-24] MEDS: ENOXAPARIN 100 MG/1 ML INJ SUB-Q SCH (09:33)
--- NOTE | 2021-08-24 11:10 | Discharge Summary ---
Providers - Providers Date of Admission: 07/28/21 02:05 Attending physician: MT BLISS MD 07/28/21 02:05 Consult to Dietitian/Nutrition [CONS] Routine Physician Instructions: Reason For Exam: Reason for Consult: Diet education Consult to Physician [CONS] Routine Comment: Consulting Provider: SHYLA MARKS Physician Instructions: Reason For Exam: COPD EXAC. WITH HYPOXIA 07/29/21 10:40 Consult to Dietitian/Nutrition [CONS] Routine Physician Instructions: Reason For Exam: Reason for Consult: Write/Manage Tube Feeding 07/29/21 12:04 Consult to Physician [CONS] Routine Comment: called office/ bernadette Consulting Provider: ANIL ABBOTT Physician Instructions: Reason For Exam: Right lung mass with mets 07/29/21 13:51 Consult to PICC Line RN [CONS] Urgent Reason For Exam: possible vasopressors Type Line:: PICC 07/30/21 07:49 Consult to Physician [CONS] Routine Comment: Consulting Provider: MERON MORRISON Physician Instructions: Reason For Exam: sepsis 07/31/21 22:31 Consult to Physician [CONS] Routine Comment: Consulting Provider: NORM CRUMP Physician Instructions: Reason For Exam: WYATT 08/02/21 15:32 Consult to Physician [CONS] Routine Comment: dr. beltran spoke to dr. porter Consulting Provider: DON PORTER Physician Instructions: Reason For Exam: retroperitoneal lymph nodes 08/06/21 12:39 Consult to Physician [CONS] Routine Comment: Consulting Provider: DANISH GIRON Physician Instructions: Reason For Exam: trach 08/22/21 12:24 Consult to Physician [CONS] Routine Comment: Spoke to Gerardo/Zamzam Consulting Provider: DON PORTER Physician Instructions: Reason For Exam: Acute DVT Primary care physician: [employer] Hospitalization Reason for admission: Shortness of breath Condition: Stable Hospital course: This is a 66-year-old female with HTN, DM, HLD and COPD, ex-smoker, breast cancer status post right mastectomy now with metastasis to the lung who presented to emergency department on 07/28 with complaints of difficulty in breathing ongoing for the past few days via EMS. En route she was given Solu- Medrol IV magnesium and albuterol nebulizing treatment. Upon arrival to emergency department patient had multiple rounds of embolizing treatments and was subsequently placed on BiPAP with some improvement. Patient has been fully vaccinated. Work-up in the emergency department revealed CXR suspicious for right-sided pneumonia, nodular density in the left base and increased interstitial markings which may be chronic. Patient was admitted to the hospitalist service with electrolyte imbalances, leukocytosis, COPD exacerbation, hypoxia and possible pneumonia. 07/29/2021. Patient seen this morning with Shabbir-Chavira respiration/agonal breathing. RENEE ABREU was called and patient was intubated and placed on mechanical ventilation. Patient transferred to ICU. Critical care/pulmonary consulted. Patient currently with AC mode rate of 30, FiO2 100%, PEEP of 12. Continue IV antibiotics. Consult ID and oncology for further evaluation. Patient will likely need bronchoscopy for further evaluation of the lung mass. Doppler ultrasound revealedLLE DVT. Start anticoagulation. 07/30/2021. Patient appears much improved and more responsive this morning. Patient currently with AC mode ventilation rate of 24, tidal volume 450, PEEP of 8 and FiO2 35%. Spontaneous breathing trials with possible extubation today per pulmonary. Bronchoscopy per pulmonary. Continue Lovenox twice daily for DVT. Continue IV antibiotics for sepsis/pneumonia. ID consultation pending. Follow-up CEA, CA 15-3, [place] 2729. 07/31/2021. Echocardiogram reveals left ventricular size and function are normal. EF 50 to 55% with mild diastolic dysfunction. Patient currently with CPAP/PSV trial 11/02. Anticipate extubation today per pulmonary. Bronchoscopy per pulmonary. Continue Lovenox twice daily for DVT. Continue IV antibiotics for sepsis/pneumonia. ID consultation pending. Follow-up [facility], CA 15-3, CA 2729. 08/01: ALIYAH 08/02: Patient had a bronchoscopy today. Cell count, cytology and AFB sent from samples. Patient remains sedated on fentanyl and Versed. Patient and daughter Rosana were updated. 08/03: [facility] follow-up on [facility] specimens and was informed patient specimens indicate cancer. Communicated to Dr. Abbott and he stated he will update family. 08/04: Patient remains sedated on fentanyl and Versed, patient has moments of agitation with any stimulation. CPAP trial unable to be completed today due to agitation. 08/05: Patient had low urine output overnight and Elizabeth catheter was changed this a.m. with 2 L of urine output received. Patient did have a increase in creatinine however this may have been obstructive process and nephrology is aware. Hematology/oncology spoke to family who wishes for everything to be done despite bronchial washings with cancer cells. [facility] contacted patient's oncologist to help facilitate transfer. We attempted to hold sedation for CPAP trial however patient became extremely agitated and sedation was restarted. 08/06: Surgery consulted for possible trach. Leukocytosis and renal function slowly improving. No acute events reported overnight. 08/07: Creatinine continues to decrease, patient has slight hyper natremia and hyperchloremia. Patient remains on fentanyl and Versed with periods of agitation. Increasing free water flushes. 08-08 improving cr; febrile; family wants full care/full code- heme onc following 08-09 LOW GRADE FEVERS; FOR TRACH/PEG WED 08/10: Patient seen and examined, had Bronchoscopy and Trach and PEG today, follow report. Continue supportive care. 08/11: Patient remains on full vent support. Continue supportive care. 08/12: This morning patient noted with bleeding around trach surgery consulted going for emergent surgery. Labs ordered 08/13: Patient seen and examined, no further bleeding, had surgical intervention yesterday for trach site bleeding. No further bleeding this am. Patient otherwise remains on mechanical ventilation. Leukocytosis mildly worsened today this could be reactive has no fever will monitor mental status is still severely encephalopathic. 08/14/21 patient seen and examined. Lab and medication reviewed. No further bleeding from track site. Hemoglobin is 8.1. Hematocrit 24.2 and WBC 9.7. Continue current management and supportive care. Recheck CBC CMP in the morning 08/15: Overnight patient experienced sinus pericardia with return, will receive MiraLAX and CPAP trial today. 08/16: CPAP trial failed today. 08/17: given ducloax suppository today 08/18: failed cpap today as she became bradycardiac. able to follow simple commands. update today by phone. See note for details. [facility] referral sent 08/19- Patient is trached and on the vent, sedated with propofol and fentanyl. Attempted SAT today did not tolerated it, so no SBT trial today due to increased agitation and patient required more sedation to reach RASS goal -3 to -4. No documented BM document, PRN MOM administered, continue BR. Continue to monitor renal function, H&H, and electrolytes. AM labs ordered. 08/20: Awaiting placement at LTAC. 08/20: Supportive management. Awaiting placement at LTAC. 08-22 aliyah overnight 08/23: Patient seen and examined this morning clinically unchanged. Awaiting LTAC placement. 08/24: Unfortunately no clinical improvement at this time. No adverse event reported overnight continues on the vent during sedation vacation patient gets agitated but no purposeful movement or following of command #Neuro: Acute metabolic encephalopathy, sedation for agitation - Sedated with fentanyl and versed - Titrate gtts for RASS goal of -2 to -3 - SAT daily as tolerated - Avoid delirium- On Seroquel; follow QT EKG ordered - Bilateral restraints for safety -Very lethargic minimal response when off sedation #Cardio: Sinus Tachycardia #s/p cardiac arrest #H/o HTN & HLD - 07/29- Echocardiogram completed-> EF 50 to 55% with mild diastolic dysfunction - SR-ST -no pressors - Continue to monitor blood pressure, MAP goal> 65 and SBP<165 - PRN Hydralazine #Respiratory: Acute hypoxemic respiratory failure 2/2 Lung mass/CA #COPD exacerbation sp trach - 08/10 S/P Tracheostomybronchoscopy biopsy-->carcinoma c/w breast primary, ER/ME/H2N neg, TTf1 neg - Vent setting: AC 30%,8,12,450 see ivderianw for weaning attempts - Vent dependent/ unable to wean off vent due to multiple failed trials vazquez down in the 30s -daily SAT as tolerated - VAP bundle addressed - Aspiration precaution; keep HOB elevated> 45 degree - Continue SPO2 monitoring for SPO2 goal greater than 90% - Continue daily ABG per CCM -continue nebs #GI: Contipation - 08/10 s/p PEGTube insertion - 08/17 KUB: moderate amount of fecal material throughout theh colon - Continue enteral nutrition- TF at goal - Continue bowel regimen: Miralax, senokot, and PRN Ducolax & MOM for constipation BM 08-20 - Continue PPI- Pepcid #: Acute kidney injury likely 2/2 vasomotor nephropathy/pre-renal - 08/01 FeNA 0.13 - Continue to monitor renal function - Continue to monitor electrolytes, replace if necessary - Continue Strict intake and output -free water flushes decreased-na now 139; reevaluate daily - Continue to avoid nephrotoxins, renally dose all medications - Nephrology on consult, appreciate recommendations #ID: Acute sepsis possibly due to PNA vs cardiac event- Resolved - 07/27 B.Cultx2:neg, 07/29 tracheal aspirate:neg, 08/02 Urine cult: neg, 08/08 repeat B.CultX2: neg - trend WBC and temp curve -follow culture data #Heme/Onc: H/o breast carcinoma with metastasis to lungs #LLE DVT #Acute Blood loss- resolved - 08/12 Bronchocopy biopsy- result confirm carcinoma c/w breast primary - H&H stable - Continue AC- for DVT Dr Porter consulted-he evaluated the patient noted the patient has been anticoagulated for about 3 weeks. Ordered a repeat ultrasound of the left lower extremity to help guide therapy. Further recommendation per"If DVT has re solved, prophylactic anticoagulation is quite appropriate. If DVT is still present, then risk/benefit discussion needs to be had to determine if full or prophylactic anticoagulation is more appropriate. US to be repeated and reeval AC strategy -shows no sonographic evidence of DVT. -Will defer to hematology and vascular about changes to anticoagulation. - SCDs to bilateral lower extremities while in bed - Heme/Onc on Consult - Per Heme/Onc patient is "not a good candidate for chemotherapy, but chest tumor radiation may be possible" #Endo: Hyperglycemia, H/o DM; obesity - Continue SSI for a Target blood glucose of 140-180 - Avoid hypoglycemia 08/24: Patient unfortunately not showing any improvement. There is an update to the previous notes patient will be discharged to LTAC today. While considered not a good candidate for chemotherapy at this time or any aggressive intervention. There is a possibility for radiation oncology management which I will try to arrange at the LTAC if possible. Patient continues on full anticoagulation and will monitor H&H closely. Considering discussion with Dr. Wade the oncologist and also hematology oncology here for possible end-of-life discussion with family have also spoken to the family they would like to see the patient before making that decision. Will discuss with case management they have an exception to the hospital visitation policy will come in March. Otherwise continue current management patient continues to be critically ill. We will also continue to liaise with the pulmonary critical care doctor to see if patient will benefit from further management and reassessment of mental status. Monitor hemoglobin and hematocrit closely considering full anticoagulation Disposition: 63 [employer] [facility] Final Discharge Diagnosis (Prints w/discharge instructions): Acute hypoxic respiratory failure Time spent for discharge: 35 minutes Core Measure Documentation - Palliative Care Palliative Care/ Comfort Measures: Not Applicable - Core Measures Any of the following diagnoses?: DVT/PE - VTE Discharge Requirements Deep Vein Thrombosis/Pulmonary Embolism Present on Admission: Yes Has pt received <5 days of overlap therapy or INR<2.0: No Anticoagulant overlap therapy prescribed at discharge: Yes Exam - Physical Exam Narrative exam: General appearance: Present: no acute distress, well-nourished,, obese - EENT Eyes: Present: PERRL, EOM intact ENT: clear oral mucosa. Trach-site intact - Neck Neck: Present: supple, normal ROM - Respiratory Respiratory effort: normal - Cardiovascular Rhythm: regular - Extremities Extremities: no ischemia - Abdominal General gastrointestinal: soft, PEG tube site intact - Integumentary Integumentary: Present: clear, warm. Dependent edema noted - Psychiatric Psychiatric: other - Neurologic Neurologic: Unfortunately not following commands - Allied Health Allied health notes reviewed: nursing, RT, social work, case management - Constitutional Vitals: Temp Pulse Resp BP Pulse Ox 99.2 F 88 15 142/74 99 08/24/21 08:00 08/24/21 10:30 08/24/21 10:30 08/24/21 10:30 08/24/21 10:30 Plan Activity: advance as tolerated, fall precautions Diet: other (tube feed) Special Instructions: record daily BP diary, physical therapy, occupational therapy assist apy Follow up with: PRIMARY MD BRANDON [Primary Care Provider] - 3-5 Days SHYLA MARKS MD [Staff Physician] - 7 Days ADA GU DO [Staff Physician] - 7 Days
[2021-08-24] MEDS: MIDAZOLAM 100 MG in SODIUM CHLORIDE 0.9% 80 ML IV SCH (11:13)
--- NOTE | 2021-08-24 14:33 | Progress Note ---
Assessment and Plan Acute hypoxemic respiratory failure secondary Lung Mass (? Lung vs Breast CA) Acute COPD exacerbation Possible hypercapnia History of right breast cancer Leukocytosis DM II Hypertension Hyperlipidemia Tobacco use disorder - continue Eliquis - to transfer to LTAC - continue care as below otherwise; - continue daily SAT and SBT assessment as tolerated - continue Seroquel to spare IV sedatives - azotemia per nephrology - continue to wean supplemental oxygen for target O2 sat's > 90% acutely - VAP bundle addressed - continue lung protective strategies - continue bronchodilators (GLADIS & LABA) with pulmonary hygiene per RT - wean per pulmonary driven protocols otherwise - continue accuchecks with glycemic control per SSI (While critically ill target blood glucose of 140-180 mg/dL; avoid hypoglycemia) - sedation prn for target RASS 0 to -1 - avoid nephrotoxins, renally dose all medications - continue to avoid benzodiazepine's, reduce the possibility of delirium - complete AB's per ID rec's - prn analgesia per CPOT score - Maintenance of sleep-wake cycle, avoid delirium - enteral nutritional support at goal rate as tolerated - G.I. & VTE prophylaxis - PT/OT/ROM exercises - continue mobility protocols for pressure ulcer prophylaxis - Monitor hemodynamics closely - continue other care per attending / other consultants - discharge planning ongoing concurrently COVID SPECIFIC INTERVENTIONS - test result pending .... Re-evaluate in am & prn CONDITION: CRITICAL PROGNOSIS: GUARDED CODE STATUS: FULL CODE The high probability of a clinically significant, sudden or life-threatening deterioration of the [respiratory, cardiovascular, oncological & neurologic] system(s) required my full and direct attention, intervention and personal management. The aggregate critical care time was [35] minutes without overlap. Time includes spent on; [x] Data Review and interpretation [x] Patient assessment and monitoring of vital signs [x] Documentation [x] Medication orders and management Subjective Date of service: 08/24/21 Principal diagnosis: metastatic breast cancer Interval history: Patient is seen today for: Acute hypoxemic respiratory failure; AE-COPD; Possible hypercapnia; H/O CA Breast; DM II; HTN Seen and examined at bedside; 24hour events reviewed; nursing and respiratory care staff consulted; no adverse overnight events reported to me; resting in bed; remains on MVS; sedated; to transfer to LTAC today; no gross bleeding on full anticoagulation Objective Vital Signs - 12hr 08/24/21 08/24/21 08/24/21 02:30 03:00 03:30 Temperature Pulse Rate 79 80 79 Pulse Rate [ Anterior Bilateral] Respiratory 12 12 13 Rate Respiratory Rate [Anterior Bilateral] Blood Pressure 124/64 134/72 124/64 O2 Sat by Pulse 100 99 100 Oximetry O2 Sat by Pulse Oximetry [ Assessment] 08/24/21 08/24/21 08/24/21 03:43 04:00 04:24 Temperature 98.9 F Pulse Rate 79 Pulse Rate [ Anterior Bilateral] Respiratory 15 Rate Respiratory Rate [Anterior Bilateral] Blood Pressure 124/64 O2 Sat by Pulse 98 Oximetry O2 Sat by Pulse 98 Oximetry [ Assessment] 08/24/21 08/24/21 08/24/21 04:30 04:54 05:00 Temperature Pulse Rate 114 H 114 H 113 H Pulse Rate [ Anterior Bilateral] Respiratory 19 13 Rate Respiratory Rate [Anterior Bilateral] Blood Pressure 204/114 154/94 O2 Sat by Pulse 96 97 98 Oximetry O2 Sat by Pulse Oximetry [ Assessment] 08/24/21 08/24/21 08/24/21 05:30 06:00 06:30 Temperature Pulse Rate 106 H 109 H 105 H Pulse Rate [ Anterior Bilateral] Respiratory 17 15 15 Rate Respiratory Rate [Anterior Bilateral] Blood Pressure 154/94 138/85 154/94 O2 Sat by Pulse 98 99 99 Oximetry O2 Sat by Pulse Oximetry [ Assessment] 08/24/21 08/24/21 08/24/21 07:00 07:30 07:59 Temperature Pulse Rate 98 H 93 H 98 H Pulse Rate [ Anterior Bilateral] Respiratory 14 12 6 L Rate Respiratory Rate [Anterior Bilateral] Blood Pressure 130/76 138/85 173/115 O2 Sat by Pulse 98 100 100 Oximetry O2 Sat by Pulse Oximetry [ Assessment] 08/24/21 08/24/21 08/24/21 08:00 08:10 08:20 Temperature 99.2 F Pulse Rate 102 H Pulse Rate [ 94 H Anterior Bilateral] Respiratory 13 Rate Respiratory 15 Rate [Anterior Bilateral] Blood Pressure 173/115 O2 Sat by Pulse 99 100 Oximetry O2 Sat by Pulse 100 Oximetry [ Assessment] 08/24/21 08/24/21 08/24/21 08:30 09:00 09:30 Temperature Pulse Rate 93 H 84 94 H Pulse Rate [ Anterior Bilateral] Respiratory 15 15 15 Rate Respiratory Rate [Anterior Bilateral] Blood Pressure 173/115 151/73 151/73 O2 Sat by Pulse 100 99 100 Oximetry O2 Sat by Pulse Oximetry [ Assessment] 08/24/21 08/24/21 08/24/21 10:00 10:30 11:00 Temperature Pulse Rate 96 H 88 83 Pulse Rate [ Anterior Bilateral] Respiratory 16 15 15 Rate Respiratory Rate [Anterior Bilateral] Blood Pressure 142/74 142/74 131/78 O2 Sat by Pulse 100 99 100 Oximetry O2 Sat by Pulse Oximetry [ Assessment] 08/24/21 08/24/21 08/24/21 11:30 11:55 12:00 Temperature 98.8 F Pulse Rate 84 88 94 H Pulse Rate [ Anterior Bilateral] Respiratory 15 9 L 12 Rate Respiratory Rate [Anterior Bilateral] Blood Pressure 131/78 131/78 156/89 O2 Sat by Pulse 99 100 99 Oximetry O2 Sat by Pulse Oximetry [ Assessment] 08/24/21 08/24/21 12:30 13:00 Temperature Pulse Rate 109 H 108 H Pulse Rate [ Anterior Bilateral] Respiratory 16 12 Rate Respiratory Rate [Anterior Bilateral] Blood Pressure 156/89 176/80 O2 Sat by Pulse 98 98 Oximetry O2 Sat by Pulse Oximetry [ Assessment] Constitutional: no acute distress (sedated), other (eldely obese female without increased respiratory effort at rest on MVS) Eyes: non-icteric ENT: oropharynx moist, other (trach [place] #[id number], cuffed; no bleeding) Neck: supple, no lymphadenopathy, no JVD Effort: mildly labored Ascultation: Bilateral: rhonchi Percussion: Bilateral: not dull Cardiovascular: regular rate and rhythm, other (S1,S2) Gastrointestinal: normoactive bowel sounds, soft, non-tender, non-distended, other (PEG) Integumentary: normal Extremities: no cyanosis, no edema, pulses normal, no ischemia or petechiae Neurologic: non-focal exam (moves all extremities), pupils equal and round, CN II-XII normal Psychiatric: other (sedated) CBC and BMP: 08/23/21 05:00 08/23/21 05:00 ABG, PT/INR, D-dimer: ABG ABG pH 7.401 (7.320-7.450) 08/19/21 13:45 POC ABG pCO2 39.8 mmHg (32.0-48.0) 08/19/21 13:45 ABG pCO2 46.6 mm Hg 08/17/21 21:23 POC ABG pO2 145.3 mmHg (83-108) H 08/19/21 13:45 ABG pO2 122.5 mm Hg (80.0-90.0) H 08/17/21 21:23 POC ABG HCO3 24.2 08/19/21 13:45 ABG O2 Saturation 99.0 (0-100) 08/19/21 13:45 PT/INR, D-dimer PT 14.5 Sec. (12.2-14.9) 08/12/21 21:41 INR 1.08 (0.87-1.13) 08/12/21 21:41 D-Dimer 852.47 ng/mlDDU (0-234) H 07/29/21 07:17 Abnormal lab findings: Abnormal Labs 07/27/21 07/27/21 07/27/21 22:57 22:57 22:57 WBC 20.3 H RBC Hgb Hct MCH MCHC RDW Plt Count Lymph % (Auto) Lymph # (Auto) [place] # (Auto) Seg Neutrophils % Seg Neuts % (Manual) 89.0 H Lymphocytes % (Manual) 9.0 L Nucleated RBC % Seg Neutrophils # Seg Neutrophils # Man 18.1 H Lymphocytes # (Manual) Monocytes # (Manual) D-Dimer ABG pH POC ABG pCO2 POC ABG pO2 ABG pO2 ABG Hemoglobin ABG Oxyhemoglobin ABG Sodium ABG Potassium ABG Chloride ABG Glucose Carboxyhemoglobin Sodium Potassium 3.5 L Chloride 96.9 L Carbon Dioxide 20 L BUN 19 H Creatinine Glucose 204 H POC Glucose Lactic Acid 7.20 H* Calcium Magnesium AST 98 H ALT 90 H Total Protein Albumin Triglycerides Arterial Blood Glucose Arterial Blood Ionized Calcium Urine WBC (Auto) Urine Creatinine Crossmatch 07/28/21 07/28/21 07/28/21 01:31 07:49 10:00 WBC RBC Hgb Hct MCH MCHC RDW Plt Count Lymph % (Auto) Lymph # (Auto) [place] # (Auto) Seg Neutrophils % Seg Neuts % (Manual) Lymphocytes % (Manual) Nucleated RBC % Seg Neutrophils # Seg Neutrophils # Man Lymphocytes # (Manual) Monocytes # (Manual) D-Dimer ABG pH POC ABG pCO2 POC ABG pO2 ABG pO2 ABG Hemoglobin ABG Oxyhemoglobin ABG Sodium ABG Potassium ABG Chloride ABG Glucose Carboxyhemoglobin Sodium Potassium Chloride Carbon Dioxide BUN Creatinine Glucose POC Glucose 194 H Lactic Acid 6.90 H* 6.70 H* Calcium Magnesium AST ALT Total Protein Albumin Triglycerides Arterial Blood Glucose Arterial Blood Ionized Calcium Urine WBC (Auto) Urine Creatinine Crossmatch 07/28/21 07/28/21 07/28/21 12:41 13:21 16:21 WBC RBC Hgb Hct MCH MCHC RDW Plt Count Lymph % (Auto) Lymph # (Auto) [place] # (Auto) Seg Neutrophils % Seg Neuts % (Manual) Lymphocytes % (Manual) Nucleated RBC % Seg Neutrophils # Seg Neutrophils # Man Lymphocytes # (Manual) Monocytes # (Manual) D-Dimer ABG pH POC ABG pCO2 POC ABG pO2 ABG pO2 ABG Hemoglobin ABG Oxyhemoglobin ABG Sodium ABG Potassium ABG Chloride ABG Glucose Carboxyhemoglobin Sodium Potassium Chloride Carbon Dioxide BUN Creatinine Glucose POC Glucose 159 H 155 H Lactic Acid 6.10 H* Calcium Magnesium AST ALT Total Protein Albumin Triglycerides Arterial Blood Glucose Arterial Blood Ionized Calcium Urine WBC (Auto) Urine Creatinine Crossmatch 07/28/21 07/29/21 07/29/21 22:03 04:44 04:44 WBC 17.0 H RBC Hgb Hct MCH MCHC RDW Plt Count Lymph % (Auto) Lymph # (Auto) [place] # (Auto) Seg Neutrophils % Seg Neuts % (Manual) 82.0 H Lymphocytes % (Manual) 11.0 L Nucleated RBC % Seg Neutrophils # Seg Neutrophils # Man 13.9 H Lymphocytes # (Manual) Monocytes # (Manual) 1.0 H D-Dimer ABG pH POC ABG pCO2 POC ABG pO2 ABG pO2 ABG Hemoglobin ABG Oxyhemoglobin ABG Sodium ABG Potassium ABG Chloride ABG Glucose Carboxyhemoglobin Sodium Potassium Chloride Carbon Dioxide BUN 23 H Creatinine Glucose 196 H POC Glucose 187 H Lactic Acid Calcium Magnesium AST ALT Total Protein Albumin Triglycerides Arterial Blood Glucose Arterial Blood Ionized Calcium Urine WBC (Auto) Urine Creatinine Crossmatch 07/29/21 07/29/21 07/29/21 06:56 07:17 07:17 WBC 26.1 H RBC Hgb Hct 43.3 H MCH MCHC RDW 16.0 H Plt Count Lymph % (Auto) Lymph # (Auto) [place] # (Auto) Seg Neutrophils % Seg Neuts % (Manual) 80.0 H Lymphocytes % (Manual) Nucleated RBC % Seg Neutrophils # Seg Neutrophils # Man 20.9 H Lymphocytes # (Manual) Monocytes # (Manual) D-Dimer ABG pH POC ABG pCO2 POC ABG pO2 ABG pO2 ABG Hemoglobin ABG Oxyhemoglobin ABG Sodium ABG Potassium ABG Chloride ABG Glucose Carboxyhemoglobin Sodium Potassium Chloride Carbon Dioxide 20 L D BUN 23 H Creatinine Glucose 308 H POC Glucose 165 H Lactic Acid Calcium Magnesium AST ALT Total Protein Albumin Triglycerides Arterial Blood Glucose Arterial Blood Ionized Calcium Urine WBC (Auto) Urine Creatinine Crossmatch 07/29/21 07/29/21 07/29/21 07:17 09:16 10:30 WBC RBC Hgb Hct MCH MCHC RDW Plt Count Lymph % (Auto) Lymph # (Auto) [place] # (Auto) Seg Neutrophils % Seg Neuts % (Manual) Lymphocytes % (Manual) Nucleated RBC % Seg Neutrophils # Seg Neutrophils # Man Lymphocytes # (Manual) Monocytes # (Manual) D-Dimer 852.47 H ABG pH 7.236 L POC ABG pCO2 56.0 H POC ABG pO2 266.4 H ABG pO2 ABG Hemoglobin ABG Oxyhemoglobin 99.1 H ABG Sodium 132.3 L ABG Potassium 4.9 H ABG Chloride ABG Glucose 202 H Carboxyhemoglobin 0.2 L Sodium Potassium Chloride Carbon Dioxide BUN Creatinine Glucose POC Glucose 271 H Lactic Acid Calcium Magnesium AST ALT Total Protein Albumin Triglycerides Arterial Blood Glucose 202 H Arterial Blood Ionized Calcium Urine WBC (Auto) Urine Creatinine Crossmatch 07/29/21 07/29/21 07/30/21 17:54 23:32 05:08 WBC RBC Hgb Hct MCH MCHC RDW Plt Count Lymph % (Auto) Lymph # (Auto) [place] # (Auto) Seg Neutrophils % Seg Neuts % (Manual) Lymphocytes % (Manual) Nucleated RBC % Seg Neutrophils # Seg Neutrophils # Man Lymphocytes # (Manual) Monocytes # (Manual) D-Dimer ABG pH POC ABG pCO2 POC ABG pO2 ABG pO2 ABG Hemoglobin ABG Oxyhemoglobin ABG Sodium ABG Potassium ABG Chloride ABG Glucose Carboxyhemoglobin Sodium Potassium Chloride Carbon Dioxide BUN Creatinine Glucose POC Glucose 168 H 205 H 214 H Lactic Acid Calcium Magnesium AST ALT Total Protein Albumin Triglycerides Arterial Blood Glucose Arterial Blood Ionized Calcium Urine WBC (Auto) Urine Creatinine Crossmatch 07/30/21 07/30/21 07/30/21 06:01 11:32 17:34 WBC RBC Hgb Hct MCH MCHC RDW Plt Count Lymph % (Auto) Lymph # (Auto) [place] # (Auto) Seg Neutrophils % Seg Neuts % (Manual) Lymphocytes % (Manual) Nucleated RBC % Seg Neutrophils # Seg Neutrophils # Man Lymphocytes # (Manual) Monocytes # (Manual) D-Dimer ABG pH 7.480 H POC ABG pCO2 23.6 L POC ABG pO2 280.0 H ABG pO2 ABG Hemoglobin ABG Oxyhemoglobin 99.3 H ABG Sodium 133.7 L ABG Potassium ABG Chloride ABG Glucose 232 H Carboxyhemoglobin 0 L Sodium Potassium Chloride Carbon Dioxide BUN Creatinine Glucose POC Glucose 207 H 239 H Lactic Acid Calcium Magnesium AST ALT Total Protein Albumin Triglycerides Arterial Blood Glucose 232 H Arterial Blood Ionized Calcium 4.4 L Urine WBC (Auto) Urine Creatinine Crossmatch 07/30/21 07/31/21 07/31/21 23:39 03:34 04:45 WBC 15.0 H RBC Hgb Hct MCH MCHC RDW 15.5 H Plt Count Lymph % (Auto) Lymph # (Auto) [place] # (Auto) Seg Neutrophils % Seg Neuts % (Manual) 89.0 H Lymphocytes % (Manual) 7.0 L Nucleated RBC % Seg Neutrophils # Seg Neutrophils # Man 13.4 H Lymphocytes # (Manual) 1.1 L Monocytes # (Manual) D-Dimer ABG pH 7.481 H POC ABG pCO2 31.8 L POC ABG pO2 ABG pO2 ABG Hemoglobin ABG Oxyhemoglobin ABG Sodium 135.2 L ABG Potassium 3.3 L ABG Chloride ABG Glucose 188 H Carboxyhemoglobin 0.1 L Sodium Potassium Chloride Carbon Dioxide BUN Creatinine Glucose POC Glucose 176 H Lactic Acid Calcium Magnesium AST ALT Total Protein Albumin Triglycerides Arterial Blood Glucose 188 H Arterial Blood Ionized Calcium 4.4 L Urine WBC (Auto) Urine Creatinine Crossmatch 07/31/21 07/31/21 07/31/21 04:45 04:45 11:28 WBC RBC Hgb Hct MCH MCHC RDW Plt Count Lymph % (Auto) Lymph # (Auto) [place] # (Auto) Seg Neutrophils % Seg Neuts % (Manual) Lymphocytes % (Manual) Nucleated RBC % Seg Neutrophils # Seg Neutrophils # Man Lymphocytes # (Manual) Monocytes # (Manual) D-Dimer ABG pH POC ABG pCO2 POC ABG pO2 ABG pO2 ABG Hemoglobin ABG Oxyhemoglobin ABG Sodium ABG Potassium ABG Chloride ABG Glucose Carboxyhemoglobin Sodium Potassium 3.4 L Chloride Carbon Dioxide BUN 61 H Creatinine 2.6 H D Glucose 176 H POC Glucose 195 H 245 H Lactic Acid Calcium Magnesium AST ALT Total Protein Albumin Triglycerides Arterial Blood Glucose Arterial Blood Ionized Calcium Urine WBC (Auto) Urine Creatinine Crossmatch 07/31/21 07/31/21 08/01/21 17:32 23:58 01:00 WBC RBC Hgb Hct MCH MCHC RDW Plt Count Lymph % (Auto) Lymph # (Auto) [place] # (Auto) Seg Neutrophils % Seg Neuts % (Manual) Lymphocytes % (Manual) Nucleated RBC % Seg Neutrophils # Seg Neutrophils # Man Lymphocytes # (Manual) Monocytes # (Manual) D-Dimer ABG pH POC ABG pCO2 POC ABG pO2 ABG pO2 ABG Hemoglobin ABG Oxyhemoglobin ABG Sodium ABG Potassium ABG Chloride ABG Glucose 284 H Carboxyhemoglobin 0.3 L Sodium Potassium Chloride Carbon Dioxide BUN Creatinine Glucose POC Glucose 251 H 294 H Lactic Acid Calcium Magnesium AST ALT Total Protein Albumin Triglycerides Arterial Blood Glucose 284 H Arterial Blood Ionized Calcium Urine WBC (Auto) Urine Creatinine Crossmatch 08/01/21 08/01/21 08/01/21 05:50 05:50 06:11 WBC 16.2 H RBC Hgb Hct MCH MCHC RDW 15.5 H Plt Count Lymph % (Auto) Lymph # (Auto) [place] # (Auto) Seg Neutrophils % Seg Neuts % (Manual) 93.0 H Lymphocytes % (Manual) 2.0 L Nucleated RBC % 3.0 H Seg Neutrophils # Seg Neutrophils # Man 15.1 H Lymphocytes # (Manual) 0.3 L Monocytes # (Manual) D-Dimer ABG pH POC ABG pCO2 POC ABG pO2 ABG pO2 ABG Hemoglobin ABG Oxyhemoglobin ABG Sodium ABG Potassium ABG Chloride ABG Glucose Carboxyhemoglobin Sodium Potassium Chloride Carbon Dioxide BUN 64 H Creatinine 1.9 H Glucose 277 H POC Glucose 256 H Lactic Acid Calcium Magnesium AST ALT Total Protein Albumin Triglycerides Arterial Blood Glucose Arterial Blood Ionized Calcium Urine WBC (Auto) Urine Creatinine Crossmatch 08/01/21 08/01/21 08/01/21 11:39 17:25 23:53 WBC RBC Hgb Hct MCH MCHC RDW Plt Count Lymph % (Auto) Lymph # (Auto) [place] # (Auto) Seg Neutrophils % Seg Neuts % (Manual) Lymphocytes % (Manual) Nucleated RBC % Seg Neutrophils # Seg Neutrophils # Man Lymphocytes # (Manual) Monocytes # (Manual) D-Dimer ABG pH POC ABG pCO2 POC ABG pO2 ABG pO2 ABG Hemoglobin ABG Oxyhemoglobin ABG Sodium ABG Potassium ABG Chloride ABG Glucose Carboxyhemoglobin Sodium Potassium Chloride Carbon Dioxide BUN Creatinine Glucose POC Glucose 289 H 275 H 327 H Lactic Acid Calcium Magnesium AST ALT Total Protein Albumin Triglycerides Arterial Blood Glucose Arterial Blood Ionized Calcium Urine WBC (Auto) Urine Creatinine Crossmatch 08/01/21 08/02/21 08/02/21 Unknown 04:00 12:03 WBC RBC Hgb Hct MCH MCHC RDW Plt Count Lymph % (Auto) Lymph # (Auto) [place] # (Auto) Seg Neutrophils % Seg Neuts % (Manual) Lymphocytes % (Manual) Nucleated RBC % Seg Neutrophils # Seg Neutrophils # Man Lymphocytes # (Manual) Monocytes # (Manual) D-Dimer ABG pH POC ABG pCO2 POC ABG pO2 ABG pO2 ABG Hemoglobin ABG Oxyhemoglobin ABG Sodium ABG Potassium ABG Chloride ABG Glucose 325 H Carboxyhemoglobin 0.4 L Sodium Potassium Chloride Carbon Dioxide BUN Creatinine Glucose POC Glucose 209 H Lactic Acid Calcium Magnesium AST ALT Total Protein Albumin Triglycerides Arterial Blood Glucose 325 H Arterial Blood Ionized Calcium Urine WBC (Auto) Urine Creatinine 125.6 H Crossmatch 08/02/21 08/02/21 08/02/21 15:30 17:03 23:17 WBC RBC Hgb Hct MCH MCHC RDW Plt Count Lymph % (Auto) Lymph # (Auto) [place] # (Auto) Seg Neutrophils % Seg Neuts % (Manual) Lymphocytes % (Manual) Nucleated RBC % Seg Neutrophils # Seg Neutrophils # Man Lymphocytes # (Manual) Monocytes # (Manual) D-Dimer ABG pH POC ABG pCO2 POC ABG pO2 ABG pO2 ABG Hemoglobin ABG Oxyhemoglobin ABG Sodium ABG Potassium ABG Chloride ABG Glucose Carboxyhemoglobin Sodium Potassium Chloride Carbon Dioxide BUN Creatinine Glucose POC Glucose 210 H 265 H Lactic Acid Calcium Magnesium AST ALT Total Protein Albumin Triglycerides Arterial Blood Glucose Arterial Blood Ionized Calcium Urine WBC (Auto) 47.0 H Urine Creatinine Crossmatch 08/02/21 08/02/21 08/03/21 Unknown Unknown 04:17 WBC 14.1 H RBC Hgb Hct MCH MCHC RDW 16.3 H Plt Count Lymph % (Auto) 5.1 L Lymph # (Auto) 0.7 L [place] # (Auto) 0.9 H Seg Neutrophils % 88.7 H Seg Neuts % (Manual) Lymphocytes % (Manual) Nucleated RBC % Seg Neutrophils # 12.5 H Seg Neutrophils # Man Lymphocytes # (Manual) Monocytes # (Manual) D-Dimer ABG pH POC ABG pCO2 POC ABG pO2 ABG pO2 ABG Hemoglobin ABG Oxyhemoglobin ABG Sodium ABG Potassium ABG Chloride ABG Glucose Carboxyhemoglobin Sodium Potassium Chloride Carbon Dioxide BUN 72 H 72 H Creatinine 1.8 H 1.6 H Glucose 307 H 263 H POC Glucose Lactic Acid Calcium Magnesium AST ALT Total Protein Albumin Triglycerides Arterial Blood Glucose Arterial Blood Ionized Calcium Urine WBC (Auto) Urine Creatinine Crossmatch 08/03/21 08/03/21 08/03/21 04:17 05:30 08:30 WBC 13.9 H RBC Hgb Hct MCH MCHC RDW 16.0 H Plt Count Lymph % (Auto) Lymph # (Auto) [place] # (Auto) Seg Neutrophils % Seg Neuts % (Manual) Lymphocytes % (Manual) Nucleated RBC % Seg Neutrophils # Seg Neutrophils # Man Lymphocytes # (Manual) Monocytes # (Manual) D-Dimer ABG pH POC ABG pCO2 POC ABG pO2 ABG pO2 ABG Hemoglobin ABG Oxyhemoglobin ABG Sodium ABG Potassium ABG Chloride ABG Glucose Carboxyhemoglobin Sodium Potassium Chloride Carbon Dioxide BUN Creatinine Glucose POC Glucose 280 H Lactic Acid Calcium Magnesium 3.00 H AST ALT Total Protein Albumin Triglycerides Arterial Blood Glucose Arterial Blood Ionized Calcium Urine WBC (Auto) Urine Creatinine Crossmatch 08/03/21 08/03/21 08/03/21 12:14 13:39 15:11 WBC RBC Hgb Hct MCH MCHC RDW Plt Count Lymph % (Auto) Lymph # (Auto) [place] # (Auto) Seg Neutrophils % Seg Neuts % (Manual) Lymphocytes % (Manual) Nucleated RBC % Seg Neutrophils # Seg Neutrophils # Man Lymphocytes # (Manual) Monocytes # (Manual) D-Dimer ABG pH POC ABG pCO2 POC ABG pO2 ABG pO2 ABG Hemoglobin ABG Oxyhemoglobin ABG Sodium ABG Potassium ABG Chloride ABG Glucose 306 H Carboxyhemoglobin 0.3 L Sodium Potassium Chloride Carbon Dioxide BUN Creatinine Glucose POC Glucose 287 H Lactic Acid 2.10 H* Calcium Magnesium AST ALT Total Protein Albumin Triglycerides Arterial Blood Glucose 306 H Arterial Blood Ionized Calcium Urine WBC (Auto) Urine Creatinine Crossmatch 08/03/21 08/03/21 08/04/21 16:52 23:08 04:00 WBC RBC Hgb Hct MCH MCHC RDW Plt Count Lymph % (Auto) Lymph # (Auto) [place] # (Auto) Seg Neutrophils % Seg Neuts % (Manual) Lymphocytes % (Manual) Nucleated RBC % Seg Neutrophils # Seg Neutrophils # Man Lymphocytes # (Manual) Monocytes # (Manual) D-Dimer ABG pH POC ABG pCO2 54.3 H POC ABG pO2 82.2 L ABG pO2 ABG Hemoglobin ABG Oxyhemoglobin ABG Sodium 145.1 H ABG Potassium 5.0 H ABG Chloride ABG Glucose 316 H Carboxyhemoglobin 0.3 L Sodium Potassium Chloride Carbon Dioxide BUN Creatinine Glucose POC Glucose 282 H 289 H Lactic Acid Calcium Magnesium AST ALT Total Protein Albumin Triglycerides Arterial Blood Glucose 316 H Arterial Blood Ionized Calcium Urine WBC (Auto) Urine Creatinine Crossmatch 08/04/21 08/04/21 08/04/21 04:38 04:38 05:19 WBC 17.7 H RBC Hgb Hct MCH MCHC RDW 16.5 H Plt Count Lymph % (Auto) Lymph # (Auto) [place] # (Auto) Seg Neutrophils % Seg Neuts % (Manual) Lymphocytes % (Manual) Nucleated RBC % Seg Neutrophils # Seg Neutrophils # Man Lymphocytes # (Manual) Monocytes # (Manual) D-Dimer ABG pH POC ABG pCO2 POC ABG pO2 ABG pO2 ABG Hemoglobin ABG Oxyhemoglobin ABG Sodium ABG Potassium ABG Chloride ABG Glucose Carboxyhemoglobin Sodium Potassium Chloride 108.3 H Carbon Dioxide BUN 76 H Creatinine 1.4 H Glucose 310 H POC Glucose 268 H Lactic Acid Calcium Magnesium 2.70 H AST ALT Total Protein Albumin Triglycerides Arterial Blood Glucose Arterial Blood Ionized Calcium Urine WBC (Auto) Urine Creatinine Crossmatch 08/04/21 08/04/21 08/04/21 11:48 16:41 23:49 WBC RBC Hgb Hct MCH MCHC RDW Plt Count Lymph % (Auto) Lymph # (Auto) [place] # (Auto) Seg Neutrophils % Seg Neuts % (Manual) Lymphocytes % (Manual) Nucleated RBC % Seg Neutrophils # Seg Neutrophils # Man Lymphocytes # (Manual) Monocytes # (Manual) D-Dimer ABG pH POC ABG pCO2 POC ABG pO2 ABG pO2 ABG Hemoglobin ABG Oxyhemoglobin ABG Sodium ABG Potassium ABG Chloride ABG Glucose Carboxyhemoglobin Sodium Potassium Chloride Carbon Dioxide BUN Creatinine Glucose POC Glucose 197 H 208 H 209 H Lactic Acid Calcium Magnesium AST ALT Total Protein Albumin Triglycerides Arterial Blood Glucose Arterial Blood Ionized Calcium Urine WBC (Auto) Urine Creatinine Crossmatch 08/05/21 08/05/21 08/05/21 04:00 04:50 04:50 WBC 19.0 H RBC Hgb Hct MCH MCHC RDW 17.0 H Plt Count Lymph % (Auto) Lymph # (Auto) [place] # (Auto) Seg Neutrophils % Seg Neuts % (Manual) 75.0 H Lymphocytes % (Manual) 2.0 L Nucleated RBC % Seg Neutrophils # Seg Neutrophils # Man 14.3 H Lymphocytes # (Manual) 0.4 L Monocytes # (Manual) 1.0 H D-Dimer ABG pH 7.314 L POC ABG pCO2 48.9 H POC ABG pO2 ABG pO2 ABG Hemoglobin ABG Oxyhemoglobin ABG Sodium ABG Potassium 5.0 H ABG Chloride 109.0 H ABG Glucose 234 H Carboxyhemoglobin 0.4 L Sodium Potassium 5.2 H Chloride 110.0 H Carbon Dioxide BUN 90 H Creatinine 1.8 H Glucose 235 H POC Glucose Lactic Acid Calcium Magnesium 2.60 H AST ALT Total Protein Albumin Triglycerides Arterial Blood Glucose 234 H Arterial Blood Ionized Calcium Urine WBC (Auto) Urine Creatinine Crossmatch 08/05/21 08/05/21 08/05/21 06:05 12:02 17:08 WBC RBC Hgb Hct MCH MCHC RDW Plt Count Lymph % (Auto) Lymph # (Auto) [place] # (Auto) Seg Neutrophils % Seg Neuts % (Manual) Lymphocytes % (Manual) Nucleated RBC % Seg Neutrophils # Seg Neutrophils # Man Lymphocytes # (Manual) Monocytes # (Manual) D-Dimer ABG pH POC ABG pCO2 POC ABG pO2 ABG pO2 ABG Hemoglobin ABG Oxyhemoglobin ABG Sodium ABG Potassium ABG Chloride ABG Glucose Carboxyhemoglobin Sodium Potassium Chloride Carbon Dioxide BUN Creatinine Glucose POC Glucose 225 H 193 H 263 H Lactic Acid Calcium Magnesium AST ALT Total Protein Albumin Triglycerides Arterial Blood Glucose Arterial Blood Ionized Calcium Urine WBC (Auto) Urine Creatinine Crossmatch 08/05/21 08/06/21 08/06/21 23:34 05:00 05:00 WBC 16.8 H RBC 3.64 L Hgb Hct MCH MCHC RDW 16.6 H Plt Count Lymph % (Auto) Lymph # (Auto) [place] # (Auto) Seg Neutrophils % Seg Neuts % (Manual) Lymphocytes % (Manual) Nucleated RBC % Seg Neutrophils # Seg Neutrophils # Man Lymphocytes # (Manual) Monocytes # (Manual) D-Dimer ABG pH POC ABG pCO2 POC ABG pO2 ABG pO2 ABG Hemoglobin ABG Oxyhemoglobin ABG Sodium ABG Potassium ABG Chloride ABG Glucose Carboxyhemoglobin Sodium Potassium Chloride 109.3 H Carbon Dioxide BUN 89 H Creatinine 1.6 H Glucose 197 H POC Glucose 224 H Lactic Acid Calcium 8.2 L Magnesium AST ALT Total Protein Albumin Triglycerides Arterial Blood Glucose Arterial Blood Ionized Calcium Urine WBC (Auto) Urine Creatinine Crossmatch 08/06/21 08/06/21 08/06/21 05:26 11:38 16:30 WBC RBC Hgb Hct MCH MCHC RDW Plt Count Lymph % (Auto) Lymph # (Auto) [place] # (Auto) Seg Neutrophils % Seg Neuts % (Manual) Lymphocytes % (Manual) Nucleated RBC % Seg Neutrophils # Seg Neutrophils # Man Lymphocytes # (Manual) Monocytes # (Manual) D-Dimer ABG pH POC ABG pCO2 POC ABG pO2 ABG pO2 ABG Hemoglobin ABG Oxyhemoglobin ABG Sodium ABG Potassium ABG Chloride ABG Glucose Carboxyhemoglobin Sodium Potassium Chloride Carbon Dioxide BUN Creatinine Glucose POC Glucose 168 H 160 H 135 H Lactic Acid Calcium Magnesium AST ALT Total Protein Albumin Triglycerides Arterial Blood Glucose Arterial Blood Ionized Calcium Urine WBC (Auto) Urine Creatinine Crossmatch 08/06/21 08/07/21 08/07/21 23:08 04:00 04:00 WBC 13.6 H RBC 3.30 L Hgb 9.5 L Hct 29.2 L MCH MCHC RDW 16.7 H Plt Count Lymph % (Auto) Lymph # (Auto) [place] # (Auto) Seg Neutrophils % Seg Neuts % (Manual) Lymphocytes % (Manual) Nucleated RBC % Seg Neutrophils # Seg Neutrophils # Man Lymphocytes # (Manual) Monocytes # (Manual) D-Dimer ABG pH POC ABG pCO2 POC ABG pO2 ABG pO2 ABG Hemoglobin ABG Oxyhemoglobin ABG Sodium ABG Potassium ABG Chloride ABG Glucose Carboxyhemoglobin Sodium 146 H Potassium Chloride 111.4 H Carbon Dioxide BUN 78 H Creatinine 1.5 H Glucose 143 H POC Glucose 125 H Lactic Acid Calcium 8.2 L Magnesium AST ALT Total Protein Albumin Triglycerides Arterial Blood Glucose Arterial Blood Ionized Calcium Urine WBC (Auto) Urine Creatinine Crossmatch 08/07/21 08/07/21 08/07/21 04:00 05:16 12:12 WBC RBC Hgb Hct MCH MCHC RDW Plt Count Lymph % (Auto) Lymph # (Auto) [place] # (Auto) Seg Neutrophils % Seg Neuts % (Manual) Lymphocytes % (Manual) Nucleated RBC % Seg Neutrophils # Seg Neutrophils # Man Lymphocytes # (Manual) Monocytes # (Manual) D-Dimer ABG pH POC ABG pCO2 POC ABG pO2 80.1 L ABG pO2 ABG Hemoglobin 9.8 L ABG Oxyhemoglobin ABG Sodium ABG Potassium ABG Chloride 111.0 H ABG Glucose 157 H Carboxyhemoglobin 0.3 L Sodium Potassium Chloride Carbon Dioxide BUN Creatinine Glucose POC Glucose 144 H 125 H Lactic Acid Calcium Magnesium AST ALT Total Protein Albumin Triglycerides Arterial Blood Glucose 157 H Arterial Blood Ionized Calcium 4.5 L Urine WBC (Auto) Urine Creatinine Crossmatch 08/07/21 08/08/21 08/08/21 23:20 04:47 06:00 WBC 13.8 H RBC 3.19 L Hgb 9.3 L Hct 28.4 L MCH MCHC RDW 16.4 H Plt Count Lymph % (Auto) Lymph # (Auto) [place] # (Auto) Seg Neutrophils % Seg Neuts % (Manual) Lymphocytes % (Manual) Nucleated RBC % Seg Neutrophils # Seg Neutrophils # Man Lymphocytes # (Manual) Monocytes # (Manual) D-Dimer ABG pH POC ABG pCO2 POC ABG pO2 ABG pO2 ABG Hemoglobin ABG Oxyhemoglobin ABG Sodium ABG Potassium ABG Chloride ABG Glucose Carboxyhemoglobin Sodium Potassium Chloride Carbon Dioxide BUN Creatinine Glucose POC Glucose 118 H 130 H Lactic Acid Calcium Magnesium AST ALT Total Protein Albumin Triglycerides Arterial Blood Glucose Arterial Blood Ionized Calcium Urine WBC (Auto) Urine Creatinine Crossmatch 08/08/21 08/08/21 08/08/21 06:00 11:33 17:54 WBC RBC Hgb Hct MCH MCHC RDW Plt Count Lymph % (Auto) Lymph # (Auto) [place] # (Auto) Seg Neutrophils % Seg Neuts % (Manual) Lymphocytes % (Manual) Nucleated RBC % Seg Neutrophils # Seg Neutrophils # Man Lymphocytes # (Manual) Monocytes # (Manual) D-Dimer ABG pH POC ABG pCO2 POC ABG pO2 ABG pO2 ABG Hemoglobin ABG Oxyhemoglobin ABG Sodium ABG Potassium ABG Chloride ABG Glucose Carboxyhemoglobin Sodium 147 H Potassium Chloride 112.4 H Carbon Dioxide BUN 71 H Creatinine 1.4 H Glucose 124 H POC Glucose 126 H 124 H Lactic Acid Calcium Magnesium AST ALT Total Protein Albumin Triglycerides Arterial Blood Glucose Arterial Blood Ionized Calcium Urine WBC (Auto) Urine Creatinine Crossmatch 08/08/21 08/09/21 08/09/21 23:41 06:06 10:00 WBC RBC Hgb Hct MCH MCHC RDW Plt Count Lymph % (Auto) Lymph # (Auto) [place] # (Auto) Seg Neutrophils % Seg Neuts % (Manual) Lymphocytes % (Manual) Nucleated RBC % Seg Neutrophils # Seg Neutrophils # Man Lymphocytes # (Manual) Monocytes # (Manual) D-Dimer ABG pH POC ABG pCO2 POC ABG pO2 ABG pO2 ABG Hemoglobin ABG Oxyhemoglobin ABG Sodium ABG Potassium ABG Chloride ABG Glucose Carboxyhemoglobin Sodium 146 H Potassium Chloride 111.3 H Carbon Dioxide BUN 72 H Creatinine 1.5 H Glucose 119 H POC Glucose 119 H 127 H Lactic Acid Calcium Magnesium AST ALT 69 H Total Protein 5.2 L Albumin 2.6 L Triglycerides Arterial Blood Glucose Arterial Blood Ionized Calcium Urine WBC (Auto) Urine Creatinine Crossmatch 08/09/21 08/09/21 08/09/21 10:00 11:34 16:50 WBC 13.0 H RBC 2.88 L Hgb 8.5 L Hct 25.8 L MCH MCHC RDW 16.5 H Plt Count Lymph % (Auto) Lymph # (Auto) [place] # (Auto) Seg Neutrophils % Seg Neuts % (Manual) Lymphocytes % (Manual) Nucleated RBC % Seg Neutrophils # Seg Neutrophils # Man Lymphocytes # (Manual) Monocytes # (Manual) D-Dimer ABG pH POC ABG pCO2 POC ABG pO2 ABG pO2 ABG Hemoglobin ABG Oxyhemoglobin ABG Sodium ABG Potassium ABG Chloride ABG Glucose Carboxyhemoglobin Sodium Potassium Chloride Carbon Dioxide BUN Creatinine Glucose POC Glucose 114 H 117 H Lactic Acid Calcium Magnesium AST ALT Total Protein Albumin Triglycerides Arterial Blood Glucose Arterial Blood Ionized Calcium Urine WBC (Auto) Urine Creatinine Crossmatch 08/10/21 08/10/21 08/10/21 00:12 05:20 05:20 WBC 13.2 H RBC 2.92 L Hgb 8.4 L Hct 25.9 L MCH MCHC RDW 16.7 H Plt Count Lymph % (Auto) Lymph # (Auto) [place] # (Auto) Seg Neutrophils % Seg Neuts % (Manual) Lymphocytes % (Manual) Nucleated RBC % Seg Neutrophils # Seg Neutrophils # Man Lymphocytes # (Manual) Monocytes # (Manual) D-Dimer ABG pH POC ABG pCO2 POC ABG pO2 ABG pO2 ABG Hemoglobin ABG Oxyhemoglobin ABG Sodium ABG Potassium ABG Chloride ABG Glucose Carboxyhemoglobin Sodium 147 H Potassium Chloride 111.8 H Carbon Dioxide BUN 68 H Creatinine 1.4 H Glucose POC Glucose 114 H Lactic Acid Calcium Magnesium AST ALT Total Protein Albumin Triglycerides Arterial Blood Glucose Arterial Blood Ionized Calcium Urine WBC (Auto) Urine Creatinine Crossmatch 08/10/21 08/10/21 08/11/21 17:52 18:23 02:51 WBC RBC Hgb Hct MCH MCHC RDW Plt Count Lymph % (Auto) Lymph # (Auto) [place] # (Auto) Seg Neutrophils % Seg Neuts % (Manual) Lymphocytes % (Manual) Nucleated RBC % Seg Neutrophils # Seg Neutrophils # Man Lymphocytes # (Manual) Monocytes # (Manual) D-Dimer ABG pH POC ABG pCO2 POC ABG pO2 ABG pO2 ABG Hemoglobin 8.7 L ABG Oxyhemoglobin ABG Sodium ABG Potassium ABG Chloride 111.0 H ABG Glucose Carboxyhemoglobin 0.2 L Sodium Potassium Chloride Carbon Dioxide BUN Creatinine Glucose POC Glucose 55 L 133 H Lactic Acid Calcium Magnesium AST ALT Total Protein Albumin Triglycerides Arterial Blood Glucose Arterial Blood Ionized Calcium 4.5 L Urine WBC (Auto) Urine Creatinine Crossmatch 08/11/21 08/11/21 08/11/21 04:30 11:36 17:11 WBC RBC Hgb Hct MCH MCHC RDW Plt Count Lymph % (Auto) Lymph # (Auto) [place] # (Auto) Seg Neutrophils % Seg Neuts % (Manual) Lymphocytes % (Manual) Nucleated RBC % Seg Neutrophils # Seg Neutrophils # Man Lymphocytes # (Manual) Monocytes # (Manual) D-Dimer ABG pH POC ABG pCO2 POC ABG pO2 ABG pO2 ABG Hemoglobin ABG Oxyhemoglobin ABG Sodium ABG Potassium ABG Chloride ABG Glucose Carboxyhemoglobin Sodium Potassium Chloride 110.0 H Carbon Dioxide BUN 59 H Creatinine Glucose POC Glucose 116 H 115 H Lactic Acid Calcium 8.3 L Magnesium AST ALT 64 H Total Protein 5.5 L Albumin 2.6 L Triglycerides Arterial Blood Glucose Arterial Blood Ionized Calcium Urine WBC (Auto) Urine Creatinine Crossmatch 08/11/21 08/11/21 08/12/21 23:18 Unknown 05:05 WBC 12.2 H RBC 2.81 L Hgb 8.4 L Hct 25.4 L MCH MCHC RDW 17.0 H Plt Count Lymph % (Auto) Lymph # (Auto) [place] # (Auto) Seg Neutrophils % Seg Neuts % (Manual) Lymphocytes % (Manual) Nucleated RBC % Seg Neutrophils # Seg Neutrophils # Man Lymphocytes # (Manual) Monocytes # (Manual) D-Dimer ABG pH POC ABG pCO2 POC ABG pO2 ABG pO2 ABG Hemoglobin ABG Oxyhemoglobin ABG Sodium ABG Potassium ABG Chloride ABG Glucose Carboxyhemoglobin Sodium Potassium Chloride Carbon Dioxide BUN Creatinine Glucose POC Glucose 126 H 131 H Lactic Acid Calcium Magnesium AST ALT Total Protein Albumin Triglycerides Arterial Blood Glucose Arterial Blood Ionized Calcium Urine WBC (Auto) Urine Creatinine Crossmatch 08/12/21 08/12/21 08/12/21 12:14 17:19 21:41 WBC 16.5 H RBC 3.04 L Hgb 8.9 L Hct 27.3 L MCH MCHC RDW 17.0 H Plt Count Lymph % (Auto) 9.0 L Lymph # (Auto) [place] # (Auto) 1.1 H Seg Neutrophils % 83.7 H Seg Neuts % (Manual) Lymphocytes % (Manual) Nucleated RBC % Seg Neutrophils # 13.8 H Seg Neutrophils # Man Lymphocytes # (Manual) Monocytes # (Manual) D-Dimer ABG pH POC ABG pCO2 POC ABG pO2 ABG pO2 ABG Hemoglobin ABG Oxyhemoglobin ABG Sodium ABG Potassium ABG Chloride ABG Glucose Carboxyhemoglobin Sodium Potassium Chloride Carbon Dioxide BUN Creatinine Glucose POC Glucose 123 H 129 H Lactic Acid Calcium Magnesium AST ALT Total Protein Albumin Triglycerides Arterial Blood Glucose Arterial Blood Ionized Calcium Urine WBC (Auto) Urine Creatinine Crossmatch 08/12/21 08/12/21 08/13/21 21:41 23:26 05:24 WBC RBC Hgb Hct MCH MCHC RDW Plt Count Lymph % (Auto) Lymph # (Auto) [place] # (Auto) Seg Neutrophils % Seg Neuts % (Manual) Lymphocytes % (Manual) Nucleated RBC % Seg Neutrophils # Seg Neutrophils # Man Lymphocytes # (Manual) Monocytes # (Manual) D-Dimer ABG pH POC ABG pCO2 POC ABG pO2 ABG pO2 ABG Hemoglobin ABG Oxyhemoglobin ABG Sodium ABG Potassium ABG Chloride ABG Glucose Carboxyhemoglobin Sodium 147 H Potassium Chloride 110.7 H Carbon Dioxide BUN 48 H Creatinine Glucose 147 H POC Glucose 133 H 109 H Lactic Acid Calcium Magnesium AST ALT Total Protein Albumin Triglycerides Arterial Blood Glucose Arterial Blood Ionized Calcium Urine WBC (Auto) Urine Creatinine Crossmatch 08/13/21 08/13/21 08/13/21 05:43 11:36 18:00 WBC RBC Hgb Hct MCH MCHC RDW Plt Count Lymph % (Auto) Lymph # (Auto) [place] # (Auto) Seg Neutrophils % Seg Neuts % (Manual) Lymphocytes % (Manual) Nucleated RBC % Seg Neutrophils # Seg Neutrophils # Man Lymphocytes # (Manual) Monocytes # (Manual) D-Dimer ABG pH POC ABG pCO2 POC ABG pO2 76.8 L ABG pO2 ABG Hemoglobin 8.6 L ABG Oxyhemoglobin ABG Sodium ABG Potassium ABG Chloride 112.0 H ABG Glucose 126 H Carboxyhemoglobin 0.4 L Sodium Potassium Chloride Carbon Dioxide BUN Creatinine Glucose POC Glucose 127 H 128 H Lactic Acid Calcium Magnesium AST ALT Total Protein Albumin Triglycerides Arterial Blood Glucose 126 H Arterial Blood Ionized Calcium 4.4 L Urine WBC (Auto) Urine Creatinine Crossmatch 08/13/21 08/14/21 08/14/21 23:27 04:00 04:00 WBC RBC 2.65 L Hgb 8.1 L Hct 24.0 L MCH MCHC RDW 17.1 H Plt Count Lymph % (Auto) Lymph # (Auto) [place] # (Auto) Seg Neutrophils % Seg Neuts % (Manual) Lymphocytes % (Manual) Nucleated RBC % Seg Neutrophils # Seg Neutrophils # Man Lymphocytes # (Manual) Monocytes # (Manual) D-Dimer ABG pH POC ABG pCO2 POC ABG pO2 ABG pO2 ABG Hemoglobin ABG Oxyhemoglobin ABG Sodium ABG Potassium ABG Chloride ABG Glucose Carboxyhemoglobin Sodium 146 H Potassium Chloride 108.7 H Carbon Dioxide 31 H BUN 38 H Creatinine Glucose 115 H POC Glucose 125 H Lactic Acid Calcium Magnesium AST ALT Total Protein 5.8 L Albumin 2.6 L Triglycerides Arterial Blood Glucose Arterial Blood Ionized Calcium Urine WBC (Auto) Urine Creatinine Crossmatch 08/14/21 08/14/21 08/15/21 05:24 11:34 05:16 WBC RBC Hgb Hct MCH MCHC RDW Plt Count Lymph % (Auto) Lymph # (Auto) [place] # (Auto) Seg Neutrophils % Seg Neuts % (Manual) Lymphocytes % (Manual) Nucleated RBC % Seg Neutrophils # Seg Neutrophils # Man Lymphocytes # (Manual) Monocytes # (Manual) D-Dimer ABG pH POC ABG pCO2 POC ABG pO2 ABG pO2 ABG Hemoglobin ABG Oxyhemoglobin ABG Sodium ABG Potassium ABG Chloride ABG Glucose Carboxyhemoglobin Sodium Potassium Chloride Carbon Dioxide BUN Creatinine Glucose POC Glucose 126 H 126 H 110 H Lactic Acid Calcium Magnesium AST ALT Total Protein Albumin Triglycerides Arterial Blood Glucose Arterial Blood Ionized Calcium Urine WBC (Auto) Urine Creatinine Crossmatch 08/15/21 08/15/21 08/15/21 11:37 17:48 Unknown WBC RBC 2.53 L Hgb 7.7 L Hct 23.0 L MCH MCHC RDW 17.0 H Plt Count Lymph % (Auto) 12.5 L Lymph # (Auto) 1.0 L [place] # (Auto) Seg Neutrophils % 80.4 H Seg Neuts % (Manual) Lymphocytes % (Manual) Nucleated RBC % Seg Neutrophils # Seg Neutrophils # Man Lymphocytes # (Manual) Monocytes # (Manual) D-Dimer ABG pH POC ABG pCO2 POC ABG pO2 ABG pO2 ABG Hemoglobin ABG Oxyhemoglobin ABG Sodium ABG Potassium ABG Chloride ABG Glucose Carboxyhemoglobin Sodium Potassium Chloride Carbon Dioxide BUN Creatinine Glucose POC Glucose 106 H 110 H Lactic Acid Calcium Magnesium AST ALT Total Protein Albumin Triglycerides Arterial Blood Glucose Arterial Blood Ionized Calcium Urine WBC (Auto) Urine Creatinine Crossmatch 08/15/21 08/16/21 08/16/21 Unknown 05:40 12:00 WBC RBC Hgb Hct MCH MCHC RDW Plt Count Lymph % (Auto) Lymph # (Auto) [place] # (Auto) Seg Neutrophils % Seg Neuts % (Manual) Lymphocytes % (Manual) Nucleated RBC % Seg Neutrophils # Seg Neutrophils # Man Lymphocytes # (Manual) Monocytes # (Manual) D-Dimer ABG pH POC ABG pCO2 POC ABG pO2 ABG pO2 ABG Hemoglobin ABG Oxyhemoglobin ABG Sodium ABG Potassium ABG Chloride ABG Glucose Carboxyhemoglobin Sodium Potassium Chloride 107.2 H Carbon Dioxide BUN 36 H Creatinine Glucose 109 H POC Glucose 111 H 114 H Lactic Acid Calcium Magnesium AST ALT 63 H Total Protein 5.5 L Albumin 2.4 L Triglycerides Arterial Blood Glucose Arterial Blood Ionized Calcium Urine WBC (Auto) Urine Creatinine Crossmatch 08/16/21 08/16/21 08/16/21 12:36 12:36 17:08 WBC RBC 2.54 L Hgb 7.3 L Hct 22.8 L MCH MCHC RDW 17.1 H Plt Count Lymph % (Auto) Lymph # (Auto) [place] # (Auto) Seg Neutrophils % Seg Neuts % (Manual) Lymphocytes % (Manual) Nucleated RBC % Seg Neutrophils # Seg Neutrophils # Man Lymphocytes # (Manual) Monocytes # (Manual) D-Dimer ABG pH POC ABG pCO2 POC ABG pO2 ABG pO2 ABG Hemoglobin ABG Oxyhemoglobin ABG Sodium ABG Potassium ABG Chloride ABG Glucose Carboxyhemoglobin Sodium Potassium Chloride Carbon Dioxide BUN 39 H Creatinine Glucose 123 H POC Glucose 112 H Lactic Acid Calcium Magnesium AST ALT Total Protein Albumin Triglycerides Arterial Blood Glucose Arterial Blood Ionized Calcium Urine WBC (Auto) Urine Creatinine Crossmatch 08/17/21 08/17/21 08/17/21 05:26 07:27 11:19 WBC RBC Hgb Hct MCH MCHC RDW Plt Count Lymph % (Auto) Lymph # (Auto) [place] # (Auto) Seg Neutrophils % Seg Neuts % (Manual) Lymphocytes % (Manual) Nucleated RBC % Seg Neutrophils # Seg Neutrophils # Man Lymphocytes # (Manual) Monocytes # (Manual) D-Dimer ABG pH 7.292 L POC ABG pCO2 52.2 H POC ABG pO2 80.8 L ABG pO2 ABG Hemoglobin 9.2 L ABG Oxyhemoglobin 93.8 L ABG Sodium 135.3 L ABG Potassium ABG Chloride ABG Glucose 135 H Carboxyhemoglobin 0.2 L Sodium Potassium Chloride Carbon Dioxide BUN Creatinine Glucose POC Glucose 121 H 137 H Lactic Acid Calcium Magnesium AST ALT Total Protein Albumin Triglycerides Arterial Blood Glucose 135 H Arterial Blood Ionized Calcium Urine WBC (Auto) Urine Creatinine Crossmatch 08/17/21 08/17/21 08/17/21 17:20 21:23 Unknown WBC RBC 2.49 L Hgb 7.5 L Hct 22.2 L MCH MCHC RDW 16.5 H Plt Count Lymph % (Auto) Lymph # (Auto) [place] # (Auto) Seg Neutrophils % Seg Neuts % (Manual) Lymphocytes % (Manual) Nucleated RBC % Seg Neutrophils # Seg Neutrophils # Man Lymphocytes # (Manual) Monocytes # (Manual) D-Dimer ABG pH 7.337 L POC ABG pCO2 POC ABG pO2 ABG pO2 122.5 H ABG Hemoglobin 7.6 L ABG Oxyhemoglobin ABG Sodium ABG Potassium ABG Chloride ABG Glucose Carboxyhemoglobin Sodium Potassium Chloride Carbon Dioxide BUN Creatinine Glucose POC Glucose 106 H Lactic Acid Calcium Magnesium AST ALT Total Protein Albumin Triglycerides Arterial Blood Glucose Arterial Blood Ionized Calcium Urine WBC (Auto) Urine Creatinine Crossmatch 08/17/21 08/18/21 08/18/21 Unknown 00:04 05:10 WBC RBC 2.65 L Hgb 7.9 L Hct 23.7 L MCH MCHC RDW 17.0 H Plt Count Lymph % (Auto) Lymph # (Auto) [place] # (Auto) Seg Neutrophils % Seg Neuts % (Manual) Lymphocytes % (Manual) Nucleated RBC % Seg Neutrophils # Seg Neutrophils # Man Lymphocytes # (Manual) Monocytes # (Manual) D-Dimer ABG pH POC ABG pCO2 POC ABG pO2 ABG pO2 ABG Hemoglobin ABG Oxyhemoglobin ABG Sodium ABG Potassium ABG Chloride ABG Glucose Carboxyhemoglobin Sodium Potassium Chloride Carbon Dioxide BUN 37 H Creatinine Glucose 117 H POC Glucose 107 H Lactic Acid Calcium Magnesium AST ALT Total Protein Albumin Triglycerides Arterial Blood Glucose Arterial Blood Ionized Calcium Urine WBC (Auto) Urine Creatinine Crossmatch 08/18/21 08/18/21 08/18/21 05:10 05:10 05:40 WBC RBC Hgb Hct MCH MCHC RDW Plt Count Lymph % (Auto) Lymph # (Auto) [place] # (Auto) Seg Neutrophils % Seg Neuts % (Manual) Lymphocytes % (Manual) Nucleated RBC % Seg Neutrophils # Seg Neutrophils # Man Lymphocytes # (Manual) Monocytes # (Manual) D-Dimer ABG pH POC ABG pCO2 POC ABG pO2 ABG pO2 ABG Hemoglobin ABG Oxyhemoglobin ABG Sodium ABG Potassium ABG Chloride ABG Glucose Carboxyhemoglobin Sodium 136 L Potassium Chloride Carbon Dioxide BUN 41 H Creatinine Glucose 122 H POC Glucose 122 H Lactic Acid Calcium Magnesium AST ALT Total Protein Albumin Triglycerides Arterial Blood Glucose Arterial Blood Ionized Calcium Urine WBC (Auto) Urine Creatinine Crossmatch See Detail 08/18/21 08/18/21 08/18/21 11:47 18:21 23:53 WBC RBC Hgb Hct MCH MCHC RDW Plt Count Lymph % (Auto) Lymph # (Auto) [place] # (Auto) Seg Neutrophils % Seg Neuts % (Manual) Lymphocytes % (Manual) Nucleated RBC % Seg Neutrophils # Seg Neutrophils # Man Lymphocytes # (Manual) Monocytes # (Manual) D-Dimer ABG pH POC ABG pCO2 POC ABG pO2 ABG pO2 ABG Hemoglobin ABG Oxyhemoglobin ABG Sodium ABG Potassium ABG Chloride ABG Glucose Carboxyhemoglobin Sodium Potassium Chloride Carbon Dioxide BUN Creatinine Glucose POC Glucose 126 H 110 H 114 H Lactic Acid Calcium Magnesium AST ALT Total Protein Albumin Triglycerides Arterial Blood Glucose Arterial Blood Ionized Calcium Urine WBC (Auto) Urine Creatinine Crossmatch 08/19/21 08/19/21 08/19/21 03:20 03:20 05:21 WBC RBC 2.74 L Hgb 8.5 L Hct 24.8 L MCH MCHC RDW 16.8 H Plt Count Lymph % (Auto) Lymph # (Auto) [place] # (Auto) Seg Neutrophils % Seg Neuts % (Manual) Lymphocytes % (Manual) Nucleated RBC % Seg Neutrophils # Seg Neutrophils # Man Lymphocytes # (Manual) Monocytes # (Manual) D-Dimer ABG pH POC ABG pCO2 POC ABG pO2 ABG pO2 ABG Hemoglobin ABG Oxyhemoglobin ABG Sodium ABG Potassium ABG Chloride ABG Glucose Carboxyhemoglobin Sodium 133 L Potassium Chloride Carbon Dioxide BUN 40 H Creatinine Glucose 110 H POC Glucose 107 H Lactic Acid Calcium Magnesium AST ALT Total Protein Albumin Triglycerides Arterial Blood Glucose Arterial Blood Ionized Calcium Urine WBC (Auto) Urine Creatinine Crossmatch 08/19/21 08/19/21 08/19/21 11:41 13:45 17:23 WBC RBC Hgb Hct MCH MCHC RDW Plt Count Lymph % (Auto) Lymph # (Auto) [place] # (Auto) Seg Neutrophils % Seg Neuts % (Manual) Lymphocytes % (Manual) Nucleated RBC % Seg Neutrophils # Seg Neutrophils # Man Lymphocytes # (Manual) Monocytes # (Manual) D-Dimer ABG pH POC ABG pCO2 POC ABG pO2 145.3 H ABG pO2 ABG Hemoglobin 10.0 L ABG Oxyhemoglobin 98.4 H ABG Sodium 134.0 L ABG Potassium ABG Chloride ABG Glucose 141 H Carboxyhemoglobin 0.3 L Sodium Potassium Chloride Carbon Dioxide BUN Creatinine Glucose POC Glucose 124 H 133 H Lactic Acid Calcium Magnesium AST ALT Total Protein Albumin Triglycerides Arterial Blood Glucose 141 H Arterial Blood Ionized Calcium Urine WBC (Auto) Urine Creatinine Crossmatch 08/19/21 08/20/21 08/20/21 23:32 06:00 06:00 WBC RBC 2.53 L Hgb 8.3 L Hct 22.6 L MCH 33 H MCHC 37 H RDW 17.0 H Plt Count Lymph % (Auto) Lymph # (Auto) [place] # (Auto) Seg Neutrophils % Seg Neuts % (Manual) Lymphocytes % (Manual) Nucleated RBC % Seg Neutrophils # Seg Neutrophils # Man Lymphocytes # (Manual) Monocytes # (Manual) D-Dimer ABG pH POC ABG pCO2 POC ABG pO2 ABG pO2 ABG Hemoglobin ABG Oxyhemoglobin ABG Sodium ABG Potassium ABG Chloride ABG Glucose Carboxyhemoglobin Sodium Potassium Chloride Carbon Dioxide BUN Creatinine Glucose POC Glucose 107 H Lactic Acid Calcium Magnesium AST ALT Total Protein Albumin Triglycerides 1492 H Arterial Blood Glucose Arterial Blood Ionized Calcium Urine WBC (Auto) Urine Creatinine Crossmatch 08/20/21 08/20/21 08/20/21 06:00 16:55 23:55 WBC RBC Hgb Hct MCH MCHC RDW Plt Count Lymph % (Auto) Lymph # (Auto) [place] # (Auto) Seg Neutrophils % Seg Neuts % (Manual) Lymphocytes % (Manual) Nucleated RBC % Seg Neutrophils # Seg Neutrophils # Man Lymphocytes # (Manual) Monocytes # (Manual) D-Dimer ABG pH POC ABG pCO2 POC ABG pO2 ABG pO2 ABG Hemoglobin ABG Oxyhemoglobin ABG Sodium ABG Potassium ABG Chloride ABG Glucose Carboxyhemoglobin Sodium 134 L Potassium Chloride Carbon Dioxide BUN 42 H Creatinine Glucose 102 H POC Glucose 163 H Lactic Acid Calcium 8.1 L Magnesium AST < 5 L ALT < 5 L Total Protein 4.7 L Albumin 2.2 L Triglycerides 207 H Arterial Blood Glucose Arterial Blood Ionized Calcium Urine WBC (Auto) Urine Creatinine Crossmatch 08/21/21 08/21/21 08/21/21 06:17 12:41 17:05 WBC RBC Hgb Hct MCH MCHC RDW Plt Count Lymph % (Auto) Lymph # (Auto) [place] # (Auto) Seg Neutrophils % Seg Neuts % (Manual) Lymphocytes % (Manual) Nucleated RBC % Seg Neutrophils # Seg Neutrophils # Man Lymphocytes # (Manual) Monocytes # (Manual) D-Dimer ABG pH POC ABG pCO2 POC ABG pO2 ABG pO2 ABG Hemoglobin ABG Oxyhemoglobin ABG Sodium ABG Potassium ABG Chloride ABG Glucose Carboxyhemoglobin Sodium Potassium Chloride Carbon Dioxide BUN Creatinine Glucose POC Glucose 169 H 132 H 157 H Lactic Acid Calcium Magnesium AST ALT Total Protein Albumin Triglycerides Arterial Blood Glucose Arterial Blood Ionized Calcium Urine WBC (Auto) Urine Creatinine Crossmatch 08/21/21 08/22/21 08/22/21 23:39 04:00 05:51 WBC RBC 2.80 L Hgb 8.2 L Hct 25.4 L MCH MCHC RDW 16.9 H Plt Count 465 H Lymph % (Auto) Lymph # (Auto) [place] # (Auto) Seg Neutrophils % Seg Neuts % (Manual) 84.0 H Lymphocytes % (Manual) 7.0 L Nucleated RBC % 1.0 H Seg Neutrophils # Seg Neutrophils # Man Lymphocytes # (Manual) 0.5 L Monocytes # (Manual) D-Dimer ABG pH POC ABG pCO2 POC ABG pO2 ABG pO2 ABG Hemoglobin ABG Oxyhemoglobin ABG Sodium ABG Potassium ABG Chloride ABG Glucose Carboxyhemoglobin Sodium Potassium Chloride Carbon Dioxide BUN Creatinine Glucose POC Glucose 179 H 134 H Lactic Acid Calcium Magnesium AST ALT Total Protein Albumin Triglycerides Arterial Blood Glucose Arterial Blood Ionized Calcium Urine WBC (Auto) Urine Creatinine Crossmatch 08/22/21 08/23/21 08/23/21 Unknown 05:00 05:00 WBC RBC 2.65 L Hgb 8.1 L Hct 23.9 L MCH MCHC RDW 17.9 H Plt Count 475 H Lymph % (Auto) Lymph # (Auto) [place] # (Auto) Seg Neutrophils % Seg Neuts % (Manual) Lymphocytes % (Manual) Nucleated RBC % Seg Neutrophils # Seg Neutrophils # Man Lymphocytes # (Manual) Monocytes # (Manual) D-Dimer ABG pH POC ABG pCO2 POC ABG pO2 ABG pO2 ABG Hemoglobin ABG Oxyhemoglobin ABG Sodium ABG Potassium ABG Chloride ABG Glucose Carboxyhemoglobin Sodium Potassium Chloride 107.2 H Carbon Dioxide BUN 52 H 51 H Creatinine Glucose 137 H POC Glucose Lactic Acid Calcium Magnesium AST ALT 58 H Total Protein 6.0 L D 5.6 L Albumin 2.7 L 2.6 L Triglycerides Arterial Blood Glucose Arterial Blood Ionized Calcium Urine WBC (Auto) Urine Creatinine Crossmatch Chest x-ray: pending Allied health notes reviewed: nursing
[2021-08-24 14:37] VITALS: BP 123/77
--- NOTE | 2021-08-29 14:02 | Electrocardiograph Report ---
[facility] Test Date: 2021-08-22 Test Time: 16:02:12 Pat Name: JAXON MARTI Department: Room: A261 1 Gender: F [employer]urchasing Contracting Clerk: Norris MCGUIRE : 1955 Requested By: GURWINDER LANCASTER Order Number: [id number] Reading MD: Rakesh Mercedes Measurements Intervals [place] Rate: 84 P: 107 MO: 139 QRS: 47 QRSD: 86 T: 203 QT: 352 QTc: 417 Interpretive Statements Sinus rhythm Low voltage, precordial leads Abnormal T, consider ischemia, diffuse leads Compared to ECG 08/17/2021 06:48:06 No significant change Electronically Signed On 08-29-2021 14:02:17 EDT by Rakesh Mercedes
== END 2021-08-24 14:00 | DRG 3 ==
LOC: ED 22:08 → 4A 07-28 02:05 → CC1 07-29 09:21
PROVIDERS: ADMIT Internal Medicine Geriatric Medicine; ATTEND Internal Medicine
PROC: 5A09357 Assistance with Respiratory Ventilation, Less than 24 Consecutive Hours, Continuous Positive Airway Pressure (ICD-10-PCS; 2021-07-27)
PROC: 5A1955Z Respiratory Ventilation, Greater than 96 Consecutive Hours (ICD-10-PCS; principal; 2021-07-29)
PROC: 0BH17EZ Insertion of Endotracheal Airway into Trachea, Via Natural or Artificial Opening (ICD-10-PCS; 2021-07-29)
PROC: 4A033R1 Measurement of Arterial Saturation, Peripheral, Percutaneous Approach (ICD-10-PCS; 2021-07-29)
PROC: 0BDC8ZX Extraction of Right Upper Lung Lobe, Via Natural or Artificial Opening Endoscopic, Diagnostic (ICD-10-PCS; 2021-08-02)
PROC: 0BBC8ZX Excision of Right Upper Lung Lobe, Via Natural or Artificial Opening Endoscopic, Diagnostic (ICD-10-PCS; 2021-08-02)
PROC: 0B113F4 Bypass Trachea to Cutaneous with Tracheostomy Device, Percutaneous Approach (ICD-10-PCS; 2021-08-10)
PROC: 0BJ08ZZ Inspection of Tracheobronchial Tree, Via Natural or Artificial Opening Endoscopic (ICD-10-PCS; 2021-08-10)
PROC: 0DH63UZ Insertion of Feeding Device into Stomach, Percutaneous Approach (ICD-10-PCS; 2021-08-10)
PROC: 0W360ZZ Control Bleeding in Neck, Open Approach (ICD-10-PCS; 2021-08-12)
PROC: 30233N1 Transfusion of Nonautologous Red Blood Cells into Peripheral Vein, Percutaneous Approach (ICD-10-PCS; 2021-08-18)
DX: A41.9 Sepsis, unspecified organism (principal); J18.9 Pneumonia, unspecified organism; J96.01 Acute respiratory failure with hypoxia; G93.41 Metabolic encephalopathy; N17.0 Acute kidney failure with tubular necrosis; I46.9 Cardiac arrest, cause unspecified; J44.1 Chronic obstructive pulmonary disease with (acute) exacerbation; C78.00 Secondary malignant neoplasm of unspecified lung; E87.1 Hypo-osmolality and hyponatremia; D62 Acute posthemorrhagic anemia; E87.0 Hyperosmolality and hypernatremia; J95.01 Hemorrhage from tracheostomy stoma; I82.432 Acute embolism and thrombosis of left popliteal vein; Z20.822 Contact with and (suspected) exposure to COVID-19; C50.919 Malignant neoplasm of unspecified site of unspecified female breast; E78.00 Pure hypercholesterolemia, unspecified; F17.200 Nicotine dependence, unspecified, uncomplicated; Z90.710 Acquired absence of both cervix and uterus; E78.5 Hyperlipidemia, unspecified; R59.1 Generalized enlarged lymph nodes; E11.9 Type 2 diabetes mellitus without complications; I10 Essential (primary) hypertension; E87.5 Hyperkalemia; Y83.8 Other surgical procedures as the cause of abnormal reaction of the patient, or of later complication, without mention of misadventure at the time of the procedure; K59.00 Constipation, unspecified
CPT/HCPCS: 36415; 36600; 71045; 71275; 74018; 80048; 80053; 80074; 81001; 82140; 82378; 82570; 82803; 82805; 82962; 83690; 83735; 84100; 84165; 84300; 84478; 85007; 85025; 85027; 85379; 85610; 85730; 86021; 86160; 86225; 86850; 86900; 86901; 86920; 87040; 87070; 87086; 87205; 88104; 88112; 88305; 88312; 88341; 88342; 93005; 93306; 93970; 94002; 94003; 94640; 94644; G0378; J0171; J0360; J0456; J0692; J0696; J1644; J1650; J1815; J1940; J2060; J2250; J2405; J2704; J2920; J2930; J2997; J3010; J7030; J7040; J7070; P9016; Q9967; U0003